=== PATIENT | male | born 1945 | race Caucasian/White ===

== ENCOUNTER 2023-05-04 09:36 | Outpatient (OUT) | payer MEDICARE, OTHER, SELFPAY ==
[2023-05-04 11:31] LABS: Chol HDL Ratio 2.3; Cholesterol 144 mg/dL (<=200); HDL Cholesterol 62 mg/dL (40-60); Triglycerides 104 mg/dL (<=150); VLDL CHOLESTEROL 20.8 mg/dL
== END 2023-05-04 09:37 | disposition home or self-care (01) ==
LOC: LAB 09:42
PROVIDERS: PCP Internal Medicine; Visit Provider Internal Medicine Interventional Cardiology
DX: E78.2 Mixed hyperlipidemia (principal)
CPT/HCPCS: 36415; 80061

== ENCOUNTER 2023-11-07 10:41 | Inpatient (IN) | payer MEDICARE, OTHER, SELFPAY ==
[2023-11-07] VITALS (37 sets, daily range): BP systolic 146–162; BP diastolic 69–81; PULSE 55–83; TEMP 36.4; O2SAT 84–97; BMI 23.5; BMI 23.8
--- NOTE | 2023-11-07 11:08 | XR_ITS ---
The [address] [address] Patient Name: RAGHAVENDRA HEARD MRN: [id number] date: 1945 Sex: M Assigned Patient Location: ER Current Patient Location: ED.MAIN Accession/Order Number: [id number] Exam Date: 11/07/2023 11:22 Report Date: 11/07/2023 11:39 At the request of: OMID VORA Procedure: XR chest 1V EXAM: XR chest 1V HISTORY: sob COMPARISON: 10/06/2022 TECHNIQUE: AP portable erect FINDINGS: LUNGS: Moderate right basilar infiltrate partially obscuring right hemidiaphragm. Mild infiltrate in the left lung. VASCULATURE: No increased pulmonary vasculature. PLEURA: No pneumothorax, effusion, or pleural thickening. CARDIAC: No cardiomegaly or cardiac silhouette abnormality. MEDIASTINUM: No visible mass or adenopathy. Right Port-A-Cath tip projects over the right atrium BONES: No fracture or visible bone lesion. OTHER: Negative. XR/XR chest 1V IMPRESSION: Right basilar and left lung infiltrates, consider multifocal pneumonia versus pulmonary edema Electronically authenticated by: CHANTAL MALONE Date: 11/07/2023 11:39
--- NOTE | 2023-11-07 11:08 | ECG_ITS ---
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
--- NOTE | 2023-11-07 11:12 | ED.SOB1 ---
HPI - SOB/Dyspnea General Chief Complaint: Shortness of Breath/Dyspnea Stated Complaint: sob Time Seen by Provider: 11/07/23 10:53 Source: patient and family Mode of arrival: Wheelchair Limitations: no limitations History of Present Illness HPI Narrative: Patient presents ED complaint of shortness of breath. Patient has a history of lung cancer with resection of the right upper lobe. He states he is worried he has pneumonia. He was hypoxic at home at 88%. Upon arrival here on room air he was 89%. He was placed on 2 L nasal cannula and improved to 94%. He is not chronically on home O2. He has had chemo and radiation and finished last August. He said he has chronic issues with pneumonitis and usually needs some steroids. He is mildly short of breath but no acute distress. Vital signs are stable here. He did have to use his 's oxygen last night and has been worsening since Sunday at [facility]. said she finally got him to come in today. Related Data Allergies Allergy/AdvReac Type Severity Reaction Status Date / Time No Known Drug Allergies Allergy Verified 11/07/23 11:03 Review of Systems ROS Status of ROS 10 or more systems reviewed and unremarkable except as noted in history and below Exam Narrative Exam Narrative: Time Seen: [] Vital Signs: [Per nurse's notes.] General: [Alert] Skin: [Warm, dry, no rash.] Head: [Normocephalic, atraumatic.] Neck: [Supple, trachea midline.] Eye: [Pupils are equal, round and reactive to light, extraocular movements are intact, normal conjunctiva.] Ears, nose, mouth and throat: oral mucosa moist. Cardiovascular: [Regular rate and rhythm, no murmur.] Respiratory: [Inspiratory expiratory wheezingAnd rhonchi bilaterally. Mild respiratory distress, hypoxia, speaking in short sentences. Chest wall: [No tenderness, no deformity.] Gastrointestinal: [Soft, nontender, non distended, normal bowel sounds.] MSK: 5 out of 5 muscle strength x 4 extremities no calf pain or edema Lymphatics: [No lymphadenopathy.] Psychiatric: [Cooperative, appropriate mood & affect.] Neurological: [Alert and oriented to person, place, time, and situation, no focal neurological deficit observed.] Constitutional Vital Signs, click to edit/add: Last Vital Signs Temp 97.6 F 11/07/23 10:52 Pulse 75 11/07/23 10:52 Resp 18 11/07/23 10:52 BP 150/71 H 11/07/23 10:52 Pulse Ox 93 L 11/07/23 11:30 O2 Del Method Nasal Cannula 11/07/23 11:30 O2 Flow Rate 2 11/07/23 11:30 Course Vital Signs Vital signs: Vital Signs Temperature 97.6 F 11/07/23 10:52 Pulse Rate 75 11/07/23 10:52 Respiratory Rate 18 11/07/23 10:52 Blood Pressure 150/71 H 11/07/23 10:52 Pulse Oximetry 89 L 11/07/23 10:52 Oxygen Delivery Method Room Air 11/07/23 10:52 Oxygen Delivery Flow Rate 2 11/07/23 10:52 Temperature 97.6 F 11/07/23 10:52 Pulse Rate 75 11/07/23 10:52 Respiratory Rate 18 11/07/23 10:52 Blood Pressure 150/71 H 11/07/23 10:52 Pulse Oximetry 93 L 11/07/23 11:30 Oxygen Delivery Method Nasal Cannula 11/07/23 11:30 Oxygen Delivery Flow Rate 2 11/07/23 11:30 MDM - SOB/Dyspnea MDM Narrative Medical decision making narrative: Patient's x-ray shows multifocal pneumonia. Patient was started on Vanco and Zosyn here in ED. I called and spoke to Dr. Gonsalez who will admit the patient. He requests [facility] admission to [facility] floor. Patient's labs are nonacute. He is stable on 2 L nasal cannula. Patient is comfortable care plan for admission. Differential Diagnosis Differential diagnosis: Likely acute exacerbation of chronic obstructive airways disease and community acquired pneumonia Medical Records Attestation: I reviewed the patient's medical records. Lab Data Attestation: I reviewed the patient's lab results. Imaging Data Chest x-ray: Radiologist's impression: ITS Impressions Chest X-Ray 11/07/23 11:08 IMPRESSION: Right basilar and left lung infiltrates, consider multifocal pneumonia versus pulmonary edema Electronically authenticated by: CHANTAL MALONE Date: 11/07/2023 11:39 ECG Data Interpretation: EKG INTERPRETATION Time: []1147 Rate: []63 Rhythm: _ [] ST segments: _ [] T waves: _ [] Ectopy: _ [] P wave/IA interval: _ [] QRS interval: _ [] QT interval: _ [] Comparison: _ [] Comparison EKG date: [] Performed by: [self]Normal sinus rhythm no acute ST elevation or depression Discharge Plan Discharge Chief Complaint: Shortness of Breath/Dyspnea Clinical Impression: Community acquired pneumonia Patient Disposition: Admitted as Observation Time of Disposition Decision: 11:57 Condition: Fair Print Language: Khmer Referrals: PRERNA VALENTINO [Primary Care Provider] - 1 week
[2023-11-07 11:55] LABS: Basophils Percent Auto 0.3 % (0.2-2.0); Eosinophils Percent Auto 0.4 % (0.9-7.0); Hematocrit 29.7 % (42.0-54.0); Hemoglobin 9.8 g/dL (14.0-18.0); Immature Granulocytes Abs Auto 0.02 10^3/uL (0.00-0.03); Immature Granulocytes Pct Auto 0.3 % (0.0-0.5); Lymphocytes Absolute Auto 0.8 10^3/uL (1.2-3.8); Lymphocytes Percent Auto 10.1 % (20.5-60.0); Mean Corpuscular Hemoglobin 34.5 pg (25.9-34.0); Mean Corpuscular Volume 104.6 fL (80.0-94.0); Mean Platelet Volume 10.2 fL (9.5-13.5); Monocytes Absolute Auto 0.7 10^3/uL (0.3-0.8); Monocytes Percent Auto 8.2 % (1.7-12.0); Neutrophils Absolute Auto 6.4 10^3/uL (1.4-6.5); Neutrophils Percent Auto 80.7 % (43.0-75.0); Platelet Count 201 10^3/uL (150-450); Red Blood Count 2.84 10^6/uL (4.70-6.10); Red Cell Distribution Width 15.3 % (11.0-15.0); White Blood Count 7.9 10^3/uL (4.0-11.0)
[2023-11-07] MEDS: DEXAMETHASONE SOD PHOS 10 MG/ML VIAL IV (12:02)
[2023-11-07] MEDS: PIPERACILLIN SODIUM/TAZOBACTAM 3.375 GM in 0.9 % SODIUM CHLORIDE 50 ML IV (12:12)
[2023-11-07 12:14] LABS: Alanine Aminotransferase 33 U/L (16-63); Albumin Globulin Ratio 0.6; Albumin Level 2.8 g/dL (3.4-5.0); Alkaline Phosphatase 91 U/L (46-116); Anion Gap 14.5; Aspartate Amino Transferase 34 U/L (15-37); BUN Creatinine Ratio 31.9; Bilirubin Total 0.5 mg/dL (0.2-1.0); Calcium 8.8 mg/dL (8.5-10.1); Carbon Dioxide 25.9 mmol/L (21.0-32.0); Chloride 103 mmol/L (98-107); Estimated GFR (African America >60 (>=60); Estimated GFR (Non-African Ame >60 (>=60); Globulin 4.9 g/dL; Glucose 125 mg/dL (74-106); Potassium 3.4 mmol/L (3.5-5.1); Sodium 140 mmol/L (136-145); Total Protein 7.7 g/dL (6.4-8.2); Troponin I High Sensitivity 12.4 pg/mL (4.0-76.1)
[2023-11-07] MEDS: VANCOMYCIN HCL 1,000 MG in 0.9 % SODIUM CHLORIDE 250 ML 250 MG IV (12:45)
[2023-11-07 13:04] LABS: SARS-CoV-2 Ag NEGATIVE (NEGATIVE)
[2023-11-07 15:16] LABS: Adenovirus NOT DETECTED (NOT DETECTE); Bordetella parapertussis NOT DETECTED (NOT DETECTE); Coronavirus 229E NOT DETECTED (NOT DETECTE); Coronavirus HKU1 NOT DETECTED (NOT DETECTE); Coronavirus NL63 NOT DETECTED (NOT DETECTE); Coronavirus OC43 NOT DETECTED (NOT DETECTE); Human Metapneumovirus NOT DETECTED (NOT DETECTE); Human Rhinovirus/Enterovirus NOT DETECTED (NOT DETECTE); Influenza A NOT DETECTED (NOT DETECTE); Influenza B NOT DETECTED (NOT DETECTE); Mycoplasma pneumoniae NOT DETECTED (NOT DETECTE); Parainfluenza Virus 1 NOT DETECTED (NOT DETECTE); Parainfluenza Virus 2 NOT DETECTED (NOT DETECTE); Parainfluenza Virus 3 NOT DETECTED (NOT DETECTE); Parainfluenza Virus 4 NOT DETECTED (NOT DETECTE); Respiratory Syncytial Virus NOT DETECTED (NOT DETECTE); SARS-CoV-2 NOT DETECTED (NOT DETECTE)
--- NOTE | 2023-11-07 16:08 | CM.NOTE ---
Important Message From Medicare discussed with pt, pt verbalizes understanding and signs paper. Original given to pt and copy placed in pt's chart.
--- NOTE | 2023-11-07 16:11 | P.HP_ITS ---
<Statement entered by Shaikh Ana Maria MD - 11/08/23 11:43> This documentation has been reviewed and approved. Patient's medical chart reviewed, case discussed with Emergency Room provider and Kayla. Continue treatment plan/clinical documentation. Patient presents with progressive shortness of breath and was admitted for twenty focal pneumonia and acute respiratory failure with hypoxia. He was started on antibiotics for curreently acquired pneumonia. He also receiving IV systemic steroids, inhaled bronchodilators or associated chronic obstructive pulmonary disease exacerbation. Patient is at high risk of resistant organisms due to recent antibiotic use, recent chemotherapy for lung cancer. He is also at high risk for poor prognosis and outcome because of his history and require a minimum of to midnight of inpatient treatment for his pneumonia/respiratory failure with hypoxia due to his risk factors and current illness HPI H&P: HPI History of Present Illness Chief complaint: sob Multifocal pnuemonia Hypoxia Narrative: 11/07/23 2799 This is a 78-year-old male patient with a past medical history as outlined below including history of lung CA s/p resection and chemotherapy, hypertension, hyperlipidemia, depression with anxiety, BPH, and COPD; who presented to the ED complaining of shortness of breath x 3 days. 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 He attempted to take prednisone at home but had no relief of his symptoms and reported to the ED for further evaluation. O2 sat on arrival to the ED was 88% on room air. Workup also revealed anemia (9.8), and hyperglycemia (125). Chest x-ray revealed multifocal pneumonia versus pulmonary edema the patient is being admitted to the hospitalist service as an inpatient for COPD exacerbation and multifocal pneumonia. At the time of my exam the patient is sitting on the side of the bed having just arrived to the medical floor. He is obviously short of breath and able to complete 3-4 word sentences only. He reports recently following up with his oncologist and had a clear CT of the chest about 1 week ago. Opioid HPI Opioid Management Most Recent Opioid Data: Last Pain Scale 5 11/08/23 10:00 Last Pain Assessment 11/08/23 10:00 Last MAR Pain Assessment 11/08/23 09:06 Review of Systems ROS Status of ROS 10 or more systems reviewed and unremark able except as noted in history and below [facility] Medical History (Updated 11/08/23 @ 10:24 by Kayla Austin NP) CAD (coronary artery disease) ?I25.10 - Atherosclerotic heart disease of [place] coronary artery without angina pectoris (ICD-10) Depression with anxiety ?F41.8 - Other specified anxiety disorders (ICD-10) BPH (benign prostatic hyperplasia) ?N40.0 - Benign prostatic hyperplasia without lower urinary tract symptoms (ICD-10) Past heart attack ?I25.2 - Old myocardial infarction (ICD-10) Hypertension ?I10 - Essential (primary) hypertension (ICD-10) Lung cancer ?C34.90 - Malignant neoplasm of unspecified part of unspecified bronchus or lung (ICD-10) Surgical History (Updated 11/07/23 @ 16:06 by Kristan Florez RN) History of appendectomy ?Z90.49 - Acquired absence of other specified parts of digestive tract (ICD- 10) H/O pneumonectomy ?Z98.890 - Other specified postprocedural states (ICD-10) ?Z90.2 - Acquired absence of lung [part of] (ICD-10) Family History (Updated 11/07/23 @ 15:13 by Kristan Florez RN) Father Family history of hypertension Social History (Updated 11/07/23 @ 15:14 by Kristan Florez RN) Within the past year, how often did you have a drink containing alcohol: never Score interpretation: A score less than 4 is consistent with normal alcohol consumption. Smoking status: Former smoker Non-prescribed substance use: denies use Highest level of school completed/degree received: high school graduate Meds Home Medications and Allergies Home Medications ?Medication ?Instructions ?Recorded ?Confirmed ?Type albuterol sulfate 2.5 mg/3 mL 2.5 mg inhalation Q6H PRN 11/07/23 11/07/23 History (0.083 %) solution for nebulization shortness of breath or wheezing albuterol sulfate 90 mcg/actuation 1 puff inhalation Q4H PRN 11/07/23 11/07/23 History aerosol inhaler shortness of breath or wheezing amlodipine 2.5 mg tablet 2.5 mg PO QDAY 11/07/23 11/07/23 History aspirin 81 mg tablet,delayed 81 mg PO DAILY 11/07/23 11/07/23 History release (Adult Aspirin Regimen) atorvastatin 40 mg tablet 40 mg PO QDAY 11/07/23 11/07/23 History cholecalciferol (vitamin D3) 50 50 mcg PO DAILY 11/07/23 11/07/23 History mcg (2,000 unit) tablet (D3 DOTS) clonazepam 1 mg tablet 1 mg PO TID PRN anxiety 11/07/23 11/07/23 History docusate sodium 100 mg capsule 200 mg PO BID 11/07/23 11/07/23 History (Stool Softener) duloxetine 60 mg capsule,delayed 60 mg PO BID 11/07/23 11/07/23 History release finasteride 5 mg tablet 5 mg PO QDAY 11/07/23 11/07/23 History fluticasone fur. 100 mcg-umeclid 1 inh inhalation DAILY 11/07/23 11/07/23 History 62.5 mcg-vilant 25 mcg inhalat.powder (Trelegy Ellipta) gabapentin 300 mg capsule 600 mg PO Q8H 11/07/23 11/07/23 History hydrocodone 5 mg-acetaminophen 325 2 tab PO Q6H PRN pain 11/07/23 11/07/23 History mg tablet meloxicam 15 mg tablet 15 mg PO QDAY 11/07/23 11/07/23 History metoprolol succinate 25 mg 25 mg PO QAM 11/07/23 11/07/23 History tablet,extended release 24 hr nitroglycerin 0.4 mg sublingual 0.4 mg sublingual Q5M PRN chest 11/07/23 11/07/23 History tablet pain sennosides 8.6 mg tablet (Senna 17.2 mg PO BID 11/07/23 11/07/23 History Laxative) tamsulosin 0.4 mg capsule 0.8 mg PO .QHS 11/07/23 11/07/23 History triamterene 37.5 1 tab PO QAM 11/07/23 11/07/23 History mg-hydrochlorothiazide 25 mg tablet Allergies Allergy/AdvReac Type Severity Reaction Status Date / Time No Known Drug Allergies Allergy Verified 11/07/23 11:03 Exam Constitutional Vital Signs, click to edit/add: Last Vital Signs Temp 97.5 F L 11/07/23 15:44 Pulse 63 11/07/23 16:07 Resp 20 11/07/23 15:44 BP 162/71 H 11/07/23 15:44 Pulse Ox 95 11/07/23 16:02 O2 Del Method Nasal Cannula 11/07/23 16:02 O2 Flow Rate 2 11/07/23 16:02 Common normals: no apparent distress, oriented x3, alert and well nourished General appearance: cooperative Orientation/consciousness: Yes awake HENWV Common normals: normocephalic, head/scalp atraumatic, hearing grossly normal bilaterally, external nose normal and moist oral mucous membranes Eye Common normals: PERRL, EOMs intact bilaterally, conjunctivae normal and no scleral icterus Alignment: alignment normal Eyelid: eyelids normal Neck & C-Spine Common normals: full ROM, supple and no JVD Chest Common normals: inspection of chest normal Chest: symmetrical chest wall rise Respiratory Common normals: normal respiratory effort and no retractions Effort & inspection: tachypneic, uses accessory muscles (mild) and prolonged expiratory phase; not able to speak in complete sentences (3-4 word sentences) Auscultation: rhonchi (scattered throughout), wheezes (EE throughout) and diminished lung sounds (RLL very diminished) Cardio Common normals: no JVD, regular rate, regular rhythm, S1 normal heart sound, no gallops, no clicks, no rub and peripheral pulses 2+ throughout Heart sounds: murmur (HSM 3/6); S2 abnormal (split) GI Common normals: Normal to inspection, nondistended, normoactive bowel sounds present, soft to palpation, non-tender, no hepatosplenomegaly, no masses and no bruits Bladder/kidney exam: bladder normal to palpation Back & Pelvis Common normals: thoracic and lumbar spine normal to inspection Extremity Common normals: normal capillary refill General: normal exam except as noted and edema (Tr- 1+ bilat insteps/ankles); no clubbing and no cyanosis Neuro [place] Coma Scale: GCS not evaluated Common normals: CN's II-XII intact bilaterally, moves all extremities, no focal motor deficits and no sensory deficits noted Speech: speech normal Motor exam: strength 5/5 throughout Psych Common normals: mental status grossly normal, thought process normal, affect normal and activity/motor behavior normal Results Labs Labs: Short CBC 11/07/23 Range/Units 11:30 WBC 7.9 (4.0-11.0) 10^3/uL Hgb 9.8 L (14.0-18.0) g/dL Hct 29.7 L (42.0-54.0) % Plt Count 201 (150-450) 10^3/uL BMP 11/07/23 11:30 Sodium 140 Potassium 3.4 L Chloride 103 Carbon Dioxide 25.9 BUN 23.0 H Creatinine 0.72 Glucose 125 H Calcium 8.8 Liver Function 11/07/23 Range/Units 11:30 Total Bilirubin 0.5 (0.2-1.0) mg/dL AST 34 (15-37) U/L ALT 33 (16-63) U/L Alkaline Phosphatase 91 (46-116) U/L Albumin 2.8 L (3.4-5.0) g/dL Pulse Oximetry Attestation: I have reviewed the pertinent pulse oximetry results. Imaging Chest x-ray: Attestation: I have reviewed the pertinent imaging results. Radiologist's impression: IMPRESSION: Right basilar and left lung infiltrates, consider multifocal pneumonia versus pulmonary edema Assessment and Plan Assessment and Plan (1) Community acquired pneumonia: Assessment and Plan: Acute * Adm inpatient * We expect greater than a 2 midnight stay for medically necessary hospital care for multifocal pneumonia including IV antibiotics, high dose IV steroids, frequent breathing treatments and O2 titration * IVPB Rocephin and PO Azithromycin for CAP coverage * Low threshold to broaden coverage in setting of chronic lung compromise (COPD, Lung CA) pending clinical course * Pt remains afebrile and no clinical concern for sepsis at this time * Guaifenesin BID, Opep for sputum mobilization * BC x 2 obtained in the ED - pending * See Resp failure and COPD exac * CBC, CMP daily (2) COPD exacerbation: Assessment and Plan: Acute * Dexamethasone given in the ED, but pt continues to have significant wheezing and dyspnea/increased WOB * Solu-medrol 125 x 1, the 40 mg q8h * Duonebs q6h scheduled, plus PRN albuterol nebs * See pneumonia and ac resp failure (3) Acute respiratory failure with hypoxia: Assessment and Plan: Acute * 2/2 acute multifocal pneumonia, COPD exacerbation in setting of baseline lung compromise d/t hx of lung CA s/p wedge resection - not on home O2 at baseline * O2 as needed to keep sats above 90%, currently 93% on 2L * Significant dyspnea w/ 3-4 word sentences * See above * May require home O2 at discharge pending clinical course (4) Hypertension: Assessment and Plan: Chronic * Continue home amlodipine, triamterene-HCTZ, and metoprolol succ (5) BPH (benign prostatic hyperplasia): Assessment and Plan: Chronic * Continue home tamsulosin (6) Depression with anxiety: Assessment and Plan: Chronic * Continue home duloxetine and clonazepam (7) CAD (coronary artery disease): Assessment and Plan: Chronic * Continue home daily ASA, BB, statin
[2023-11-07] MEDS: IPRATROPIUM/ALBUTEROL SULFATE 3 ML AMPUL.NEB IH ×2 (16:19→21:48)
[2023-11-07] MEDS: POTASSIUM CHLORIDE 10 MEQ ER TABLET 40 MEQ PO (16:58)
[2023-11-07] MEDS: AZITHROMYCIN 250 MG TABLET 500 MG PO (16:58)
[2023-11-07] MEDS: METHYLPREDNISOLONE SOD SUCC PF 125 MG/2 ML VIAL IVP (16:59)
[2023-11-07] MEDS: ENOXAPARIN SODIUM 40 MG/0.4 ML SYRINGE SUBQ (16:59)
[2023-11-07] MEDS: LACTATED RINGER'S SOLUTION 1,000 ML 125 ML IV (17:00)
[2023-11-07] MEDS: BENZONATATE 100 MG CAPSULE PO (21:42)
[2023-11-07] MEDS: CLONAZEPAM 0.5 MG TABLET 1 MG PO (21:42)
[2023-11-07] MEDS: DULOXETINE HCL 60 MG CAPSULE.DR PO (21:42)
[2023-11-07] MEDS: CEFTRIAXONE 1,000 MG in 0.9 % SODIUM CHLORIDE 50 ML 100 MG IV (21:43)
[2023-11-07] MEDS: ACETAMINOPHEN 325 MG TABLET 650 MG PO (21:55)
[2023-11-07] MEDS: DOCUSATE SODIUM 100 MG CAPSULE PO (21:55)
[2023-11-07] MEDS: OXYCODONE HCL 5 MG TABLET PO (21:55)
[2023-11-08] VITALS (23 sets, daily range): BP systolic 136–165; BP diastolic 63–74; PULSE 45–95; TEMP 36.3–36.7; O2SAT 66–96
[2023-11-08] MEDS: LACTATED RINGER'S SOLUTION 1,000 ML 125 ML IV ×3 (00:20→17:15)
[2023-11-08] MEDS: METHYLPREDNISOLONE SOD SUCC PF 40 MG/ML VIAL IVP ×4 (00:20→17:15)
[2023-11-08] MEDS: IPRATROPIUM/ALBUTEROL SULFATE 3 ML AMPUL.NEB IH ×5 (04:04→23:30)
[2023-11-08 05:42] LABS: Basophils Percent Auto 0.1 % (0.2-2.0); Hematocrit 28.3 % (42.0-54.0); Hemoglobin 9.3 g/dL (14.0-18.0); Immature Granulocytes Abs Auto 0.04 10^3/uL (0.00-0.03); Immature Granulocytes Pct Auto 0.5 % (0.0-0.5); Lymphocytes Absolute Auto 0.7 10^3/uL (1.2-3.8); Lymphocytes Percent Auto 7.8 % (20.5-60.0); Mean Corpuscular HGB Conc 32.9 g/dL (29.9-35.2); Mean Corpuscular Hemoglobin 34.1 pg (25.9-34.0); Mean Corpuscular Volume 103.7 fL (80.0-94.0); Mean Platelet Volume 10.6 fL (9.5-13.5); Monocytes Absolute Auto 0.2 10^3/uL (0.3-0.8); Monocytes Percent Auto 2.5 % (1.7-12.0); Neutrophils Absolute Auto 7.8 10^3/uL (1.4-6.5); Neutrophils Percent Auto 89.1 % (43.0-75.0); Platelet Count 187 10^3/uL (150-450); Red Blood Count 2.73 10^6/uL (4.70-6.10); Red Cell Distribution Width 15.1 % (11.0-15.0); White Blood Count 8.7 10^3/uL (4.0-11.0)
[2023-11-08 06:13] LABS: Alanine Aminotransferase 41 U/L (16-63); Albumin Globulin Ratio 0.5; Albumin Level 2.5 g/dL (3.4-5.0); Alkaline Phosphatase 88 U/L (46-116); Anion Gap 12.2; Aspartate Amino Transferase 32 U/L (15-37); Bilirubin Total 0.3 mg/dL (0.2-1.0); Calcium 8.6 mg/dL (8.5-10.1); Carbon Dioxide 26.2 mmol/L (21.0-32.0); Chloride 103 mmol/L (98-107); Estimated GFR (African America >60 (>=60); Estimated GFR (Non-African Ame >60 (>=60); Globulin 4.8 g/dL; Glucose 141 mg/dL (74-106); Potassium 4.4 mmol/L (3.5-5.1); Sodium 137 mmol/L (136-145); Total Protein 7.3 g/dL (6.4-8.2)
[2023-11-08] MEDS: ALBUTEROL SULFATE 2.5 MG/3 ML VIAL NEB IH ×2 (07:38→07:39)
[2023-11-08] MEDS: DOCUSATE SODIUM 100 MG CAPSULE 200 MG PO ×2 (08:47→21:41)
[2023-11-08] MEDS: GABAPENTIN 300 MG CAPSULE 600 MG PO ×2 (08:49→17:15)
[2023-11-08] MEDS: AMLODIPINE BESYLATE 5 MG TABLET 2.5 MG PO (08:49)
[2023-11-08] MEDS: FINASTERIDE 5 MG TABLET PO (08:49)
[2023-11-08] MEDS: METOPROLOL SUCCINATE 25 MG TAB.ER.24H PO (08:51)
[2023-11-08] MEDS: ASPIRIN 81 MG TABLET.DR PO (08:51)
[2023-11-08] MEDS: BENZONATATE 100 MG CAPSULE PO (08:51)
[2023-11-08] MEDS: DULOXETINE HCL 60 MG CAPSULE.DR PO ×2 (08:52→21:40)
[2023-11-08] MEDS: AZITHROMYCIN 250 MG TABLET 500 MG PO (08:52)
[2023-11-08] MEDS: SENNOSIDES 8.6 MG TABLET 17.1999999999999993 MG PO ×2 (09:00→21:41)
[2023-11-08] MEDS: ACETAMINOPHEN 325 MG TABLET 650 MG PO ×2 (09:02→21:42)
[2023-11-08] MEDS: MELOXICAM 7.5 MG TABLET 15 MG PO (09:03)
[2023-11-08] MEDS: HCTZ PO (09:04)
[2023-11-08] MEDS: TRIAMTERENE PO (09:04)
[2023-11-08] MEDS: CLONAZEPAM 0.5 MG TABLET 1 MG PO (09:04)
[2023-11-08] MEDS: OXYCODONE HCL 5 MG TABLET PO ×2 (09:06→21:42)
[2023-11-08] MEDS: ATORVASTATIN CALCIUM 40 MG TABLET PO (09:09)
[2023-11-08] MEDS: BUDESONIDE 0.5 MG/2 ML AMPULE NEB IH ×2 (10:17→23:30)
--- NOTE | 2023-11-08 12:02 | CM.NOTE ---
Rounds made with Dr. Rodgers. Dr. Rodgers reviews plan of care. Mr. Low in agreement.
--- NOTE | 2023-11-08 13:11 | P.PN_ITS ---
<Statement entered by Shaikh Ana Maria MD - 11/08/23 14:51> This documentation has been reviewed and approved.Seen and examined. Case discussed with Kayla. Patient feels better but still quite dyspneic and gets out of breath during conversation. He is on 2 L O2 via NC. C/w systemic steroids, IV abx and duonebs. Wean off O2 as tolerated. Progress Note: Subjective Subjective Interval history: 11/08/23 0930 The patient is resting in bed having just finished his breakfast. He continues to be mildly short of breath with prolonged conversation, but is improved since admission yesterday afternoon. He continues to require O2 supplementation with 2 L and is maintaining sats between 91 and 94%. On exam, wheezing is currently resolved and he is just diminished in the bases. No rhonchi noted on exam as well. Remains afebrile and his vital signs are stable, although mildly tachypn eic. Exam Constitutional Vital Signs, click to edit/add: Last Vital Signs Temp 97.8 F 11/08/23 07:26 Pulse 59 L 11/08/23 11:44 Resp 24 H 11/08/23 08:00 BP 164/74 H 11/08/23 08:49 Pulse Ox 92 L 11/08/23 10:24 O2 Del Method Nasal Cannula 11/08/23 10:24 O2 Flow Rate 2 11/08/23 10:24 Common normals: no apparent distress, oriented x3 and alert General appearance: cooperative Orientation/consciousness: Yes awake HENMD Common normals: normocephalic, head/scalp atraumatic and hearing grossly normal bilaterally Eye Common normals: PERRL, EOMs intact bilaterally, conjunctivae normal and no scleral icterus General eye: normal appearance of both eyes Conjunctiva: conjunctiva(e) normal Pupil: PERRL Chest Common normals: inspection of chest normal Chest: symmetrical chest wall rise Respiratory Common normals: no use of accessory muscles and clear to auscultation bilaterally Effort & inspection: not able to speak in complete sentences (Improving. 5-7 word sentences ) Auscultation: diminished lung sounds (Throughout, greatest at BLL); no rhonchi and no wheezes Cardio Common normals: regular rate, regular rhythm, S1 normal heart sound, S2 normal heart sound and peripheral pulses 2+ throughout GI Common normals: Normal to inspection, nondistended, normoactive bowel sounds present, soft to palpation, non-tender and no hepatosplenomegaly Bladder/kidney exam: bladder normal to palpation Extremity Common normals: normal to inspection and no calf tenderness General: edema (Trace-1+ Bilat insteps); no clubbing and no cyanosis Neuro Common normals: CN's II-XII intact bilaterally, moves all extremities, no focal motor deficits and no sensory deficits noted Psych Common normals: mental status grossly normal Progress Note: Objective Labs Labs: Short CBC 11/08/23 Range/Units 04:45 WBC 8.7 (4.0-11.0) 10^3/uL Hgb 9.3 L (14.0-18.0) g/dL Hct 28.3 L (42.0-54.0) % Plt Count 187 (150-450) 10^3/uL BMP 11/08/23 04:45 Sodium 137 Potassium 4.4 Chloride 103 Carbon Dioxide 26.2 BUN 23.0 H Creatinine 0.82 Glucose 141 H Calcium 8.6 Liver Function 11/08/23 Range/Units 04:45 Total Bilirubin 0.3 (0.2-1.0) mg/dL AST 32 (15-37) U/L ALT 41 (16-63) U/L Alkaline Phosphatase 88 (46-116) U/L Albumin 2.5 L (3.4-5.0) g/dL Progress Note: A&P Assessment and Plan (1) Community acquired pneumonia: Assessment and Plan: Acute * Improving * No ronchi on exam today. Loose cough improved. * Continue IVPB Rocephin and PO Azithromycin for CAP coverage * Low threshold to broaden coverage in setting of chronic lung compromise (COPD, Lung CA) pending clinical course * Pt remains afebrile and no clinical concern for sepsis at this time * Guaifenesin BID, OPEP for sputum mobilization * BC x 2 obtained in the ED - pending * See Resp failure and COPD exac * CBC, CMP daily (2) COPD exacerbation: Assessment and Plan: Acute * Improving * LS still diminished/tight, but no wheezing on exam * Can complete 5-7 word sentences today * Continue Solu-medrol 40 mg q8h * Continue Duonebs, increased to q4h scheduled per RT request, plus PRN albuterol nebs * See pneumonia and ac resp failure (3) Acute respiratory failure with hypoxia: Assessment and Plan: Acute * 2/2 acute multifocal pneumonia, COPD exacerbation in setting of baseline lung compromise d/t hx of lung CA s/p wedge resection - not on home O2 at baseline * O2 as needed to keep sats above 90%, currently 93% on 2L * Improved dyspnea - 5-7 word sentences * See above * May require home O2 at discharge pending clinical course (4) Hypertension: Assessment and Plan: Chronic * Continue home amlodipine, triamterene-HCTZ, and metoprolol succ (5) BPH (benign prostatic hyperplasia): Assessment and Plan: Chronic * Continue home tamsulosin (6) Depression with anxiety: Assessment and Plan: Chronic * Continue home duloxetine and clonazepam (7) CAD (coronary artery disease): Assessment and Plan: Chronic * Continue home daily ASA, BB, statin
--- NOTE | 2023-11-08 15:27 | SWNOTE1 ---
SW was consulted in regards to advanced directives. SW took a booklet to pt and reviewed booklet. He is going to look over and review with his at home. He stated his would like to do one as well. JR gave pt JR's card and let him know to call SW and schedule a time to complete HCPOA, he voiced understanding.
[2023-11-08] MEDS: ENOXAPARIN SODIUM 40 MG/0.4 ML SYRINGE SUBQ (17:15)
[2023-11-08] MEDS: CEFTRIAXONE 1,000 MG in 0.9 % SODIUM CHLORIDE 50 ML 100 MG IV (21:40)
[2023-11-08] MEDS: TAMSULOSIN HCL 0.4 MG CAPSULE 0.800000000000000044 MG PO (21:41)
[2023-11-08] MEDS: BENZONATATE 100 MG CAPSULE 200 MG PO (21:46)
[2023-11-09] VITALS (34 sets, daily range): BP systolic 144–185; BP diastolic 65–85; PULSE 56–109; TEMP 36.3–36.7; O2SAT 72–100
[2023-11-09] MEDS: GABAPENTIN 300 MG CAPSULE 600 MG PO ×4 (00:04→23:55)
[2023-11-09] MEDS: METHYLPREDNISOLONE SOD SUCC PF 40 MG/ML VIAL IVP ×5 (00:04→23:55)
[2023-11-09] MEDS: LACTATED RINGER'S SOLUTION 1,000 ML 125 ML IV (00:06)
[2023-11-09] MEDS: IPRATROPIUM/ALBUTEROL SULFATE 3 ML AMPUL.NEB IH ×6 (03:49→23:11)
[2023-11-09] MEDS: HYDRALAZINE HCL 20 MG/ML VIAL 10 MG IVP (04:29)
[2023-11-09 05:40] LABS: Basophils Percent Auto 0.2 % (0.2-2.0); Hematocrit 28.5 % (42.0-54.0); Hemoglobin 9.4 g/dL (14.0-18.0); Immature Granulocytes Abs Auto 0.14 10^3/uL (0.00-0.03); Immature Granulocytes Pct Auto 1.1 % (0.0-0.5); Lymphocytes Absolute Auto 0.5 10^3/uL (1.2-3.8); Lymphocytes Percent Auto 3.5 % (20.5-60.0); Mean Corpuscular Hemoglobin 33.8 pg (25.9-34.0); Mean Corpuscular Volume 102.5 fL (80.0-94.0); Mean Platelet Volume 10.3 fL (9.5-13.5); Monocytes Absolute Auto 0.6 10^3/uL (0.3-0.8); Monocytes Percent Auto 4.5 % (1.7-12.0); Neutrophils Absolute Auto 11.8 10^3/uL (1.4-6.5); Neutrophils Percent Auto 90.7 % (43.0-75.0); Platelet Count 228 10^3/uL (150-450); Red Blood Count 2.78 10^6/uL (4.70-6.10); Red Cell Distribution Width 15.2 % (11.0-15.0)
[2023-11-09 06:01] LABS: Alanine Aminotransferase 84 U/L (16-63); Albumin Globulin Ratio 0.6; Albumin Level 2.7 g/dL (3.4-5.0); Alkaline Phosphatase 107 U/L (46-116); Anion Gap 15.2; Aspartate Amino Transferase 64 U/L (15-37); BUN Creatinine Ratio 21.6; Bilirubin Total 0.3 mg/dL (0.2-1.0); Calcium 9.2 mg/dL (8.5-10.1); Carbon Dioxide 25.6 mmol/L (21.0-32.0); Chloride 103 mmol/L (98-107); Estimated GFR (African America >60 (>=60); Estimated GFR (Non-African Ame >60 (>=60); Globulin 4.9 g/dL; Glucose 157 mg/dL (74-106); Potassium 3.8 mmol/L (3.5-5.1); Sodium 140 mmol/L (136-145); Total Protein 7.6 g/dL (6.4-8.2)
--- NOTE | 2023-11-09 07:38 | XR_ITS ---
The [address] [address] Patient Name: RAGHAVENDRA HEARD MRN: [id number] date: 1945 Sex: M Assigned Patient Location: MS Current Patient Location: [place] Accession/Order Number: [id number] Exam Date: 11/09/2023 07:55 Report Date: 11/09/2023 08:21 At the request of: SHAIKH LYNN Procedure: XR chest 1V EXAMINATION: XR chest 1V HISTORY: desaturation and shortness of breath COMPARISON: XR chest 11/07/2023 FINDINGS: LUNGS: Moderately dense confluent opacities within lower half of right lung and scattered throughout left lung. VASCULATURE: No increased pulmonary vasculature. PLEURA: Blunting of right lateral costophrenic angle. CARDIAC: No cardiomegaly or cardiac silhouette abnormality. MEDIASTINUM: No visible mass or adenopathy. BONES: No fracture or visible bone lesion. OTHER: Stable Port-A-Cath. XR/XR chest 1V IMPRESSION: 1. Marked bilateral pulmonary infiltrates; infectious etiology versus pulmonary edema. Increased compared to prior study. 2. Suspect small to moderate right pleural effusion; new versus increased compared to prior study. Electronically authenticated by: ARPIT DIEZ Date: 11/09/2023 08:21
[2023-11-09] MEDS: METOPROLOL SUCCINATE 25 MG TAB.ER.24H PO (07:58)
[2023-11-09] MEDS: AMLODIPINE BESYLATE 5 MG TABLET 2.5 MG PO (07:58)
[2023-11-09] MEDS: CLONAZEPAM 0.5 MG TABLET 1 MG PO ×2 (07:58→17:27)
[2023-11-09] MEDS: HYDROCODONE/ACET 5-325 MG TABLET 2 TAB PO ×2 (07:59→17:27)
--- NOTE | 2023-11-09 10:04 | PC.NURSE ---
During report patient's SpO2 desated to 82%, writing RN and night shift manager RN went in to access patient. Patient was on the side of the bed using urinal, short of breath and labored breathing. Writing RN worked with patient to slow breathing down. Once patient's breathing was slower and more regular, patient SpO2 came up with 90% briefly. Then patient desated again to 72%. RN went back into room and had patient lay back in the bed with head of bed elevated and practice breathing exercises again. Patient's SpO2 was not recovering to normal limits. RT was on the floor, RN asked for them to come into room. Patient was listened to by both RN an RT, both heard wheezing throughout the lungs bilaterally. RT started patient's breathing treatment while RN put a page out to Dr. Rodgers. Patient continued to remain in the low 80s. Rt went and retrieved vapotherm to place the patient on. Once patient was on vapotherm, patient's Sp02 came up to 93%. Patient remained above 90% on vapotherm and stated he felt better and could breath beter with less shortness of breath.
[2023-11-09] MEDS: FUROSEMIDE 40 MG/4 ML VIAL IVP ×2 (10:31→19:50)
[2023-11-09] MEDS: DULOXETINE HCL 60 MG CAPSULE.DR PO ×2 (10:32→20:43)
[2023-11-09] MEDS: FINASTERIDE 5 MG TABLET PO (10:32)
[2023-11-09] MEDS: DOCUSATE SODIUM 100 MG CAPSULE 200 MG PO ×2 (10:32→20:42)
[2023-11-09] MEDS: SENNOSIDES 8.6 MG TABLET 17.1999999999999993 MG PO ×2 (10:32→20:42)
[2023-11-09] MEDS: ASPIRIN 81 MG TABLET.DR PO (10:33)
[2023-11-09] MEDS: TRIAMTERENE PO (10:33)
[2023-11-09] MEDS: MELOXICAM 7.5 MG TABLET 15 MG PO (10:33)
[2023-11-09] MEDS: ATORVASTATIN CALCIUM 40 MG TABLET PO (10:33)
[2023-11-09] MEDS: HCTZ PO (10:33)
[2023-11-09] MEDS: PIPERACILLIN SODIUM/TAZOBACTAM 3.375 GM in 0.9 % SODIUM CHLORIDE 50 ML IV ×2 (10:34→19:50)
[2023-11-09] MEDS: VANCOMYCIN HCL 1,000 MG in 0.9 % SODIUM CHLORIDE 250 ML 250 MG IV ×2 (10:34→20:42)
--- NOTE | 2023-11-09 10:40 | OT.DAILY ---
Occupational Therapy Daily Note OT Inpatient Daily Visit Note Start: 11/08/23 14:32 Freq: Status: Active Protocol: Document 11/09/23 10:31 ANABELL (Rec: 11/09/23 10:39 ANABELL [id number]) OT Visit Details Time In/Time Out Time In 09:00 Time Out 09:20 OT Treatment Plan Subjective Subjective I am feeling pretty good today . I was able to get rest last night. Objective Objective Ed on breathing tech when attempting to complete ROM stretches and functional reaching. Able to maintain O2 level between 95%-99% while completing stretches. UE ROM Stretches completed in bed with head elevated. able to complete stretches to all planes with no pain or irritation. Ed on PLB tech to A with mantling an appropriate O2 level. Bed positioning and mobility with SBA. Assessment Assessment pascual tx F on this date. 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
[2023-11-09] MEDS: 0.9 % SODIUM CHLORIDE 250 ML 10 ML IV (10:45)
[2023-11-09] MEDS: BUDESONIDE 0.5 MG/2 ML AMPULE NEB IH ×2 (11:23→23:11)
--- NOTE | 2023-11-09 11:27 | RESP.RT ---
decreased from 60% 40 LPM to 50% 40LPM
--- NOTE | 2023-11-09 12:17 | CM.NOTE ---
Rounds made with Dr. Rodgers, pt back on vapotherm. No discharge today.
--- NOTE | 2023-11-09 12:51 | CA_ITS ---
Patient Name: RAGHAVENDRA HEARD MR#: [id number] : 1945 Exam Date: 11/09/2023 Ordering Doctor: SHAIKH Isacc BAILEY . ECHOCARDIOGRAM REPORT PROCEDURE: CA ECHO DOPPLER COMPLETE INDICATIONS: CHF, elevated BNP, h/o [place], lung cancer, COPD, hypertension COMPARISON: None. DESCRIPTION: COMPLETE ECHOCARDIOGRAM Real-time transthoracic echocardiography with 2D, M-mode, spectral and color flow Doppler performed. QUALITY: Technical quality was good. 67 , 152#, BSA 1.80 m2, BP 144/65 LEFT VENTRICLE: Normal chamber size. Normal left ventricular wall thickness. Normal systolic function. LV EF: Normal left ventricular ejection fraction, (60%). DIASTOLIC: Diastolic function is indeterminate. ATRIAL SEPTUM: LEFT ATRIUM: Normal chamber size. RIGHT ATRIUM: Mild dilatation. RIGHT VENTRICLE: Moderate dilatation. Mildly reduced right ventricular systolic function. TRICUSPID VALVE: Normal mobility and thickness. No stenosis with mild regurgitation. Doppler studies reveal severely (>60) elevated right sided pressures. RVSP 60 mmHg MITRAL VALVE: Normal mobility and thickness. No evidence of mitral valve stenosis. Mild mitral annular calcification. Trivial mitral regurgitation. AORTIC VALVE: Normal trileaflet appearance. Mildly calcified aortic valve. Normal leaflet mobility. No evidence of aortic valve stenosis. No aortic regurgitation. AORTIC ROOT: Normal diameter and appearance. PULMONIC VALVE: Normal thickness and mobility. No stenosis. Trivial regurgitation. PERICARDIUM: No evidence of pericardial effusion. IVC: IVC is dilated (2.6 cm) with no collapse. PLEURA: CONCLUSION: 1. Left ventricle is normal in size and exhibits normal systolic function. LVEF is 60%. 2. Right ventricle is moderately dilated with mildly reduced systolic function. 3. No significant valvular dysfunction. 4. Severely elevated right-sided pressures. RVSP is 60 mmHg. 5. No pericardial effusion. Adult Echocardiography Procedure Report Left Ventricle LVEDD (3.7 - 5.6 cm): 4.23 cm LVESD (2.2 - 4.0 cm): 2.50 cm LVIVS thickness (0.6 - 1.2 cm): 1.04 cm LVPW thickness (0.5 - 1.0 cm): 0.80 cm E - e': 6.38 LVOT Max Gradient: 4.16 mm[Hg] LVOT Area (cm2): 1.02 m/s Peak Velocity (LVOT): 1.02 m/s Mean Velocity (LVOT): 0.63 m/s LVOT Diameter 2.21 cm Left Atrium LA Volume Index (2D A2C): 29.86 ml/m2 Left Atrium Systolic Dimension: 2.87 cm Mitral Valve MV E to A Ratio: 0.95 Mitral Valve A-Wave Peak Velocity: 0.73 m/s Mitral Valve E-Wave Peak Velocity: 0.69 m/s Right Ventricle Aorta AO Root Diam: 3.51 cm Ascending Ao Diam: 3.45 cm Aortic Valve AoV Area (Peak Aiden): 2.55 cm2, 2.55 cm2 AoV Area (VTI): 2.32 cm2, 2.32 cm2 Peak Velocity(Antegrade Flow): 1.53 m/s Peak Gradient(Antegrade Flow): 9.36 mm[Hg] Mean Velocity(Antegrade Flow): 1.06 m/s Mean Gradient(Antegrade Flow): 5.11 mm[Hg] Velocity Time Integral: 36.50 cm Tricuspid Valve Peak Velocity (Regurgitant Flow): 3.35 m/s Pulmonic Valve Peak Gradient: 2.66 mm[Hg], 2.23 mm[Hg] Right Atrium Right Atrium Systolic Pressure: 55.56 ml, 55.56 ml Dictated by: Leo Toledo M.D. on 11/09/2023 at 18:13 Approved by: Leo Toledo M.D. on 11/09/2023 at 18:19
--- NOTE | 2023-11-09 12:52 | PM.IMPN1 ---
Progress Note: A&P Assessment and Plan (1) Bilateral pneumonia: Assessment and Plan: Worsening hypoxia and infiltrates on chest x-ray. Since patient has history of lung cancer and was initially treated with oral antibiotics. I will broaden his antibiotic coverage to IV vancomycin and Zosyn Wean off oxygen as tolerated. Currently on high flow oxygen Qualifiers: Pneumonia type: due to unspecified organism Lung location: lower lobe of lung Qualified Code(s): J18.9 - Pneumonia, unspecified organism (2) COPD exacerbation: Assessment and Plan: COPD exacerbation likely secondary to bacterial pneumonia. Continue with systemic steroids, inhaled bronchodilators. Wean off oxygen as tolerated (3) Acute respiratory failure with hypoxia: Assessment and Plan: Worsening hypoxia earlier today and is currently on high flow oxygen. He is requiring 60% FiO2. Acute worsening likely secondary to acute on chronic diastolic heart failure for which she was started on IV Lasix. I also broaden his antibacterial coverage to IV vancomycin and Zosyn. Wean off oxygen as to related. (4) Acute on chronic diastolic (congestive) heart failure: Assessment and Plan: Worsening pulmonary edema along with elevated BNP. Echocardiogram ordered. Patient started on IV Lasix 40 twice daily. Monitor intake/output. Monitor daily weight. (5) Hypertension: Assessment and Plan: Stable. Continue with home medications. Qualifiers: Hypertension type: primary hypertension Qualified Code(s): I10 - Essential (primary) hypertension (6) BPH (benign prostatic hyperplasia): Assessment and Plan: Continue with home med Qualifiers: Lower urinary tract symptom presence: symptoms absent Qualified Code(s): N40.0 - Benign prostatic hyperplasia without lower urinary tract symptoms (7) Depression with anxiety: Assessment and Plan: Continue with home medications (8) CAD (coronary artery disease): Assessment and Plan: Stable. Continue with home meds. Qualifiers: Coronary Disease-Associated Artery/Lesion type: [place] artery [place] vs. transplanted heart: [place] heart Associated angina: without angina Qualified Code(s): I25.10 - Atherosclerotic heart disease of [place] coronary artery without angina pectoris (9) Lung cancer: Assessment and Plan: According to patient, he is in remission He could not tolerate immunotherapy Immunosuppressed, at high risk of poor outcome because of lung cancer and recent antibiotic use and recent immunotherapy Qualifiers: Laterality: unspecified laterality Lung location: unspecified part of lung Qualified Code(s): C34.90 - Malignant neoplasm of unspecified part of unspecified bronchus or lung (10) Malnutrition: Assessment and Plan: Patient has unspecified weight loss, poor p.o. intake, evidence of malnutrition from poor muscle mass/low serum protein and albumin. Unlikely secondary to lung cancer and active disease burden. Qualifiers: Malnutrition type: protein-calorie malnutrition Protein-calorie malnutrition severity: moderate Qualified Code(s): E44.0 - Moderate protein-calorie malnutrition Internal Medicine - PN: Subj Subjective Interval history: Patient seen and examined. Earlier today he woke up with acute respiratory distress and worsening hypoxia and was switched over to high flow oxygen. Workup ordered for acute change point towards acute fluid overload from acute on chronic diastolic heart failure for which she was given IV Lasix. He is a still on high flow oxygen but has no evidence of respiratory distress. Exam Constitutional Vital Signs, click to edit/add: Last Vital Signs Temp 97.6 F 11/09/23 07:15 Pulse 80 11/09/23 11:43 Resp 22 H 11/09/23 07:15 BP 144/65 H 11/09/23 10:49 Pulse Ox 97 11/09/23 11:43 O2 Del Method Vapotherm 11/09/23 11:25 O2 Flow Rate 40 11/09/23 11:25 FiO2 60 11/09/23 11:25 Documenting provider has reviewed patient's vital signs: yes Common normals: no apparent distress and oriented x3 General appearance: cooperative HENMT Common normals: normocephalic and head/scalp atraumatic Respiratory Common normals: normal respiratory effort Effort & inspection: able to speak in complete sentences and tachypneic Auscultation: rales bilateral and diffuse and wheezes expiratory wheezes and throughout Cardio Common normals: regular rate, regular rhythm and S2 normal heart sound GI Common normals: Normal to inspection, nondistended, normoactive bowel sounds present, soft to palpation, non-tender and no hepatosplenomegaly Extremity Common normals: normal to inspection and full ROM Neuro Common normals: oriented x3, moves all extremities, no focal motor deficits and no sensory deficits noted Psych Common normals: mental status grossly normal, denies homicidal ideation and denies suicidal ideation Internal Medicine - PN: Obj Da Labs Labs: Laboratory Results - last 24 hr 11/09/23 05:27 WBC 13.0 H RBC 2.78 L Hgb 9.4 L Hct 28.5 L MCV 102.5 H MCH 33.8 MCHC 33.0 RDW 15.2 H Plt Count 228 MPV 10.3 Neut % (Auto) 90.7 H Lymph % (Auto) 3.5 L [place] % (Auto) 4.5 Eos % (Auto) 0.0 L Baso % (Auto) 0.2 Neut # (Auto) 11.8 H Lymph # (Auto) 0.5 L [place] # (Auto) 0.6 Eos # (Auto) 0.0 Baso # (Auto) 0.0 Abs Immat Gran (auto) 0.14 H Imm/Tot Granulo (auto) 1.1 H Sodium 140 Potassium 3.8 Chloride 103 Carbon Dioxide 25.6 Anion Gap 15.2 BUN 21.0 H Creatinine 0.97 Est GFR ( Amer) >60 Est GFR (Non-Af Amer) >60 BUN/Creatinine Ratio 21.6 Glucose 157 H Calcium 9.2 Total Bilirubin 0.3 AST 64 H ALT 84 H Alkaline Phosphatase 107 NT-Pro-B Natriuret Pep 2867.0 H* Total Protein 7.6 Albumin 2.7 L Globulin 4.9 Albumin/Globulin Ratio 0.6
--- NOTE | 2023-11-09 16:02 | RESP.RT ---
decreased FiO2 to 40% from 50%
[2023-11-09] MEDS: ENOXAPARIN SODIUM 40 MG/0.4 ML SYRINGE SUBQ (17:26)
[2023-11-09] MEDS: ACETAMINOPHEN 325 MG TABLET 650 MG PO (20:43)
[2023-11-09] MEDS: BENZONATATE 100 MG CAPSULE 200 MG PO (20:43)
[2023-11-09] MEDS: TAMSULOSIN HCL 0.4 MG CAPSULE 0.800000000000000044 MG PO (20:43)
[2023-11-10] VITALS (23 sets, daily range): BP systolic 133–162; BP diastolic 60–79; PULSE 59–86; TEMP 36.6–36.9; O2SAT 77–100
[2023-11-10] MEDS: IPRATROPIUM/ALBUTEROL SULFATE 3 ML AMPUL.NEB IH ×6 (03:56→23:02)
[2023-11-10] MEDS: PIPERACILLIN SODIUM/TAZOBACTAM 3.375 GM in 0.9 % SODIUM CHLORIDE 50 ML IV ×3 (04:00→20:39)
[2023-11-10] MEDS: METHYLPREDNISOLONE SOD SUCC PF 40 MG/ML VIAL IVP ×4 (05:23→23:02)
[2023-11-10] MEDS: CLONAZEPAM 0.5 MG TABLET 1 MG PO ×2 (05:23→20:47)
--- NOTE | 2023-11-10 05:34 | RESP.RT ---
decreased to 5L nasal cannula
[2023-11-10 05:57] LABS: Basophils Percent Auto 0.1 % (0.2-2.0); Hematocrit 28.5 % (42.0-54.0); Hemoglobin 9.5 g/dL (14.0-18.0); Immature Granulocytes Abs Auto 0.04 10^3/uL (0.00-0.03); Immature Granulocytes Pct Auto 0.3 % (0.0-0.5); Lymphocytes Absolute Auto 0.4 10^3/uL (1.2-3.8); Lymphocytes Percent Auto 3.8 % (20.5-60.0); Mean Corpuscular HGB Conc 33.3 g/dL (29.9-35.2); Mean Corpuscular Hemoglobin 34.4 pg (25.9-34.0); Mean Corpuscular Volume 103.3 fL (80.0-94.0); Mean Platelet Volume 10.4 fL (9.5-13.5); Monocytes Absolute Auto 0.6 10^3/uL (0.3-0.8); Monocytes Percent Auto 4.7 % (1.7-12.0); Neutrophils Absolute Auto 10.6 10^3/uL (1.4-6.5); Neutrophils Percent Auto 91.1 % (43.0-75.0); Platelet Count 239 10^3/uL (150-450); Red Blood Count 2.76 10^6/uL (4.70-6.10); Red Cell Distribution Width 15.4 % (11.0-15.0); White Blood Count 11.7 10^3/uL (4.0-11.0)
[2023-11-10 06:16] LABS: Alanine Aminotransferase 85 U/L (16-63); Albumin Globulin Ratio 0.6; Albumin Level 2.6 g/dL (3.4-5.0); Alkaline Phosphatase 107 U/L (46-116); Anion Gap 12.3; Aspartate Amino Transferase 47 U/L (15-37); BUN Creatinine Ratio 24.8; Bilirubin Total 0.4 mg/dL (0.2-1.0); Carbon Dioxide 30.1 mmol/L (21.0-32.0); Chloride 99 mmol/L (98-107); Estimated GFR (African America >60 (>=60); Estimated GFR (Non-African Ame >60 (>=60); Globulin 4.7 g/dL; Glucose 165 mg/dL (74-106); Potassium 3.4 mmol/L (3.5-5.1); Sodium 138 mmol/L (136-145); Total Protein 7.3 g/dL (6.4-8.2)
--- NOTE | 2023-11-10 06:57 | RESP.RT ---
titrated down to 4L
[2023-11-10] MEDS: FUROSEMIDE 40 MG/4 ML VIAL IVP ×2 (08:51→20:43)
[2023-11-10] MEDS: DOCUSATE SODIUM 100 MG CAPSULE 200 MG PO ×2 (08:52→20:41)
[2023-11-10] MEDS: MELOXICAM 7.5 MG TABLET 15 MG PO (08:52)
[2023-11-10] MEDS: AMLODIPINE BESYLATE 5 MG TABLET 2.5 MG PO (08:52)
[2023-11-10] MEDS: SENNOSIDES 8.6 MG TABLET 17.1999999999999993 MG PO ×2 (08:52→20:41)
[2023-11-10] MEDS: TRIAMTERENE PO (08:52)
[2023-11-10] MEDS: METOPROLOL SUCCINATE 25 MG TAB.ER.24H PO (08:52)
[2023-11-10] MEDS: HCTZ PO (08:52)
[2023-11-10] MEDS: DULOXETINE HCL 60 MG CAPSULE.DR PO ×2 (08:52→20:41)
[2023-11-10] MEDS: VANCOMYCIN HCL 1,000 MG in 0.9 % SODIUM CHLORIDE 250 ML 250 MG IV ×2 (08:53→20:41)
[2023-11-10] MEDS: FINASTERIDE 5 MG TABLET PO (08:53)
[2023-11-10] MEDS: ASPIRIN 81 MG TABLET.DR PO (08:53)
[2023-11-10] MEDS: GABAPENTIN 300 MG CAPSULE 600 MG PO ×2 (08:53→16:57)
[2023-11-10] MEDS: ATORVASTATIN CALCIUM 40 MG TABLET PO (08:53)
--- NOTE | 2023-11-10 09:42 | P.PN_ITS ---
Progress Note: Subjective Subjective Interval history: Patient much improved this am. Less SOB and chest not as tight. Able to take off high flow oxygen and maintaining normal SpO2 on NC. Mild cough. Afebrile. No edema. Normal appetite and no emesis or diarrhea. No chest pain or palpitations. Exam Constitutional Vital Signs, click to edit/add: Last Vital Signs Temp 98.0 F 11/10/23 09:01 Pulse 76 11/10/23 09:01 Resp 18 11/10/23 09:01 BP 162/73 H 11/10/23 09:01 Pulse Ox 94 L 11/10/23 09:01 O2 Del Method Nasal Cannula 11/10/23 09:01 O2 Flow Rate 5 11/10/23 06:54 FiO2 35 11/09/23 20:41 Documenting provider has reviewed patient's vital signs: yes Common normals: no apparent distress, oriented x3 and alert HENMT Common normals: normocephalic Eye Common normals: PERRL and EOMs intact bilaterally Respiratory Auscultation: wheezes and diminished lung sounds Cardio Common normals: regular rate, regular rhythm, no gallops, no murmurs and no rub GI Common normals: Normal to inspection, nondistended, normoactive bowel sounds present and non-tender Extremity Common normals: no pedal edema Progress Note: Objective Labs Labs: Short CBC 11/10/23 Range/Units 04:57 WBC 11.7 H (4.0-11.0) 10^3/uL Hgb 9.5 L (14.0-18.0) g/dL Hct 28.5 L (42.0-54.0) % Plt Count 239 (150-450) 10^3/uL BMP 11/10/23 04:57 Sodium 138 Potassium 3.4 L Chloride 99 Carbon Dioxide 30.1 BUN 27.0 H Creatinine 1.09 Glucose 165 H Calcium 9.0 Liver Function 11/10/23 Range/Units 04:57 Total Bilirubin 0.4 (0.2-1.0) mg/dL AST 47 H (15-37) U/L ALT 85 H (16-63) U/L Alkaline Phosphatase 107 (46-116) U/L Albumin 2.6 L (3.4-5.0) g/dL Progress Note: A&P Assessment and Plan (1) Community acquired pneumonia: (2) COPD exacerbation: (3) Acute on chronic diastolic (congestive) heart failure: (4) Acute respiratory failure with hypoxia: (5) Malnutrition: Qualifiers: Malnutrition type: protein-calorie malnutrition Protein-calorie malnutrition severity: moderate Qualified Code(s): E44.0 - Moderate protein- calorie malnutrition (6) Hypertension: Qualifiers: Hypertension type: primary hypertension Qualified Code(s): I10 - Essential (primary) hypertension (7) Lung cancer: Qualifiers: Laterality: unspecified laterality Lung location: unspecified part of lung Qualified Code(s): C34.90 - Malignant neoplasm of unspecified part of unspecified bronchus or lung (8) CAD (coronary artery disease): Qualifiers: Coronary Disease-Associated Artery/Lesion type: [place] artery [place] vs. transplanted heart: [place] heart Associated angina: without angina Qualified Code(s): I25.10 - Atherosclerotic heart disease of [place] coronary artery without angina pectoris Plan Patient improved overnight. Continue antibiotics for pneumonia and will repeat chest x-ray in am. Continue IV lasix for CHF. Wean O2 as tolerated. Continue PEP and increase ambulation. Monitor labs. Likely will need home oxygen at discharge.
[2023-11-10 10:58] LABS: Vancomycin Trough 15.6 ug/mL (5.0-20.0)
[2023-11-10] MEDS: BUDESONIDE 0.5 MG/2 ML AMPULE NEB IH ×2 (11:05→23:03)
--- NOTE | 2023-11-10 11:11 | RESP.RT ---
titrated down to 4L
[2023-11-10] MEDS: 0.9 % SODIUM CHLORIDE 250 ML 10 ML IV (12:09)
--- NOTE | 2023-11-10 15:13 | RESP.RT ---
Titrated down to 3L. Pt does well sitting still, but does desat when he gets up and walks.
--- NOTE | 2023-11-10 15:27 | RESP.RT ---
could not maintain spo2 over 90 so increased to 3L
[2023-11-10] MEDS: ENOXAPARIN SODIUM 40 MG/0.4 ML SYRINGE SUBQ (16:56)
[2023-11-10] MEDS: TAMSULOSIN HCL 0.4 MG CAPSULE 0.800000000000000044 MG PO (21:30)
[2023-11-11] VITALS (11 sets, daily range): BP systolic 113–170; BP diastolic 57–71; PULSE 63–96; TEMP 36.3–36.7; O2SAT 83–98
[2023-11-11] MEDS: GABAPENTIN 300 MG CAPSULE 600 MG PO ×2 (00:14→08:12)
[2023-11-11] MEDS: IPRATROPIUM/ALBUTEROL SULFATE 3 ML AMPUL.NEB IH ×3 (03:45→11:20)
[2023-11-11] MEDS: PIPERACILLIN SODIUM/TAZOBACTAM 3.375 GM in 0.9 % SODIUM CHLORIDE 50 ML IV (04:43)
--- NOTE | 2023-11-11 05:00 | XR_ITS ---
[address] [address] Patient Name: RAGHAVENDRA HEARD MRN: [id number] date: 1945 Sex: M Assigned Patient Location: ICU Current Patient Location: ICU Accession/Order Number: [id number] Exam Date: 11/11/2023 04:45 Report Date: 11/11/2023 06:10 At the request of: GREG CAST Procedure: XR chest 1V EXAMINATION: XR chest 1V HISTORY: Pneumonia, CHF COMPARISON: XR chest 11/09/2023 FINDINGS: LUNGS: Mild haziness and stranding within right lung base. Moderate diffuse opacities throughout left lung. VASCULATURE: No increased pulmonary vasculature. PLEURA: Possible small right pleural effusion.. CARDIAC: No cardiomegaly or cardiac silhouette abnormality. MEDIASTINUM: No visible mass or adenopathy. BONES: No fracture or visible bone lesion. OTHER: Stable right Port-A-Cath. XR/XR chest 1V IMPRESSION: 1. Mild right basilar infiltrates; significantly improved. A small pleural effusion cannot be excluded. 2. Diffuse, moderate left pulmonary infiltrates; unchanged. Electronically authenticated by: ARPIT DIEZ Date: 11/11/2023 06:10
[2023-11-11] MEDS: METHYLPREDNISOLONE SOD SUCC PF 40 MG/ML VIAL IVP ×2 (05:26→11:49)
[2023-11-11 05:37] LABS: Basophils Percent Auto 0.1 % (0.2-2.0); Hematocrit 32.3 % (42.0-54.0); Immature Granulocytes Abs Auto 0.07 10^3/uL (0.00-0.03); Immature Granulocytes Pct Auto 0.5 % (0.0-0.5); Lymphocytes Absolute Auto 0.6 10^3/uL (1.2-3.8); Mean Corpuscular HGB Conc 34.1 g/dL (29.9-35.2); Mean Corpuscular Hemoglobin 34.4 pg (25.9-34.0); Mean Corpuscular Volume 100.9 fL (80.0-94.0); Mean Platelet Volume 9.8 fL (9.5-13.5); Monocytes Absolute Auto 0.9 10^3/uL (0.3-0.8); Monocytes Percent Auto 6.1 % (1.7-12.0); Neutrophils Absolute Auto 12.8 10^3/uL (1.4-6.5); Neutrophils Percent Auto 89.3 % (43.0-75.0); Platelet Count 302 10^3/uL (150-450); Red Cell Distribution Width 14.7 % (11.0-15.0); White Blood Count 14.3 10^3/uL (4.0-11.0)
[2023-11-11 05:47] LABS: Alanine Aminotransferase 175 U/L (16-63); Albumin Globulin Ratio 0.6; Alkaline Phosphatase 121 U/L (46-116); Anion Gap 12.1; Aspartate Amino Transferase 79 U/L (15-37); BUN Creatinine Ratio 25.8; Bilirubin Total 0.7 mg/dL (0.2-1.0); Calcium 9.6 mg/dL (8.5-10.1); Carbon Dioxide 34.1 mmol/L (21.0-32.0); Chloride 95 mmol/L (98-107); Estimated GFR (African America >60 (>=60); Estimated GFR (Non-African Ame 59 (>=60); Globulin 5.4 g/dL; Glucose 149 mg/dL (74-106); Potassium 3.2 mmol/L (3.5-5.1); Sodium 138 mmol/L (136-145); Total Protein 8.4 g/dL (6.4-8.2)
[2023-11-11] MEDS: VANCOMYCIN HCL 1,000 MG in 0.9 % SODIUM CHLORIDE 250 ML 250 MG IV (08:11)
[2023-11-11] MEDS: METOPROLOL SUCCINATE 25 MG TAB.ER.24H PO (08:12)
[2023-11-11] MEDS: MELOXICAM 7.5 MG TABLET 15 MG PO (08:12)
[2023-11-11] MEDS: FINASTERIDE 5 MG TABLET PO (08:12)
[2023-11-11] MEDS: AMLODIPINE BESYLATE 5 MG TABLET 2.5 MG PO (08:12)
[2023-11-11] MEDS: TRIAMTERENE PO (08:12)
[2023-11-11] MEDS: HCTZ PO (08:12)
[2023-11-11] MEDS: ATORVASTATIN CALCIUM 40 MG TABLET PO (08:13)
[2023-11-11] MEDS: SENNOSIDES 8.6 MG TABLET 17.1999999999999993 MG PO (08:13)
[2023-11-11] MEDS: FUROSEMIDE 40 MG/4 ML VIAL IVP (08:13)
[2023-11-11] MEDS: DULOXETINE HCL 60 MG CAPSULE.DR PO (08:13)
[2023-11-11] MEDS: DOCUSATE SODIUM 100 MG CAPSULE 200 MG PO (08:13)
[2023-11-11] MEDS: ASPIRIN 81 MG TABLET.DR PO (08:13)
[2023-11-11] MEDS: CLONAZEPAM 0.5 MG TABLET 1 MG PO (08:13)
[2023-11-11] MEDS: DIAZEPAM 5 MG TABLET PO (10:04)
--- NOTE | 2023-11-11 10:31 | P.DS_ITS ---
DS: Providers Provider Date of admission: 11/07/23 15:13 Primary care physician: PRERNA VALENTINO Consults: 11/07/23 Consult to Length Control Tester Routine Reason for consult:: Advanced Directives 11/07/23 12:04 Occupational Therapy Eval and Treat Routine Reason for consultation: Ambulatory dysfunction/weakness Physical Therapy Eval and Treat Routine Reason for consultation: Ambulatory dysfunction/weakness DS: Diagnosis Discharge Diagnosis (1) Community acquired pneumonia: (2) COPD exacerbation: (3) Acute on chronic diastolic (congestive) heart failure: (4) Acute respiratory failure with hypoxia: (5) Malnutrition: Qualifiers: Malnutrition type: protein-calorie malnutrition Protein-calorie malnutrition severity: moderate Qualified Code(s): E44.0 - Moderate protein- calorie malnutrition (6) Hypertension: Qualifiers: Hypertension type: primary hypertension Qualified Code(s): I10 - Essential (primary) hypertension (7) Lung cancer: Qualifiers: Laterality: unspecified laterality Lung location: unspecified part of lung Qualified Code(s): C34.90 - Malignant neoplasm of unspecified part of unspecified bronchus or lung (8) CAD (coronary artery disease): Qualifiers: Coronary Disease-Associated Artery/Lesion type: [place] artery [place] vs. transplanted heart: [place] heart Associated angina: without angina Qualified Code(s): I25.10 - Atherosclerotic heart disease of [place] coronary artery without angina pectoris DS: Summary Hospital Course Hospital Course: Reason for admission: See H&P for details. 78 y/o male to ER with SOB. History of lung cancer treated with right upper lobe resection and chemo. Increased SOB for several days. SpO2 88% on room air at home and concerned of pneumonia. To ER and afebrile. Found hypoxia and chest x-ray with pneumonia. Admitted for treatment. Hospital course: Started rocephin and zithromax for pneumonia. Started solu- medrol and DuoNeb for COPD exacerbation. Resumed home medication. Developed worsening SOB. WBC elevated and chest x-ray with worsening infiltrates. BNP elevated. Worsening hypoxia and placed on high flow oxygen. Changed an tibiotics to zosyn and vancomycin. Started IV lasix. Breathing improved. Echo showed normal EF and diastolic dysfunction. Able to wean off high flow oxygen and on nasal canula. SOB improved and mild cough. Repeat x-ray with improved infiltrates and no fluid overload. Able to wean down to 2 LPM but not able to wean to room air. Walk test performed and patient desaturated to 83% on room air but recovered. Arranged for home oxygen with portability at 2 LPM. Discharged home in stable condition. Will continue oral lasix. Take augmentin and doxycycline for pneumonia. Take prednisone tapered over 12 days for COPD. Resume other home medication as directed. Follow up with PCP in 1-2 weeks. Time Spent with Patient Time attestation: Total time spent providing and/or coordinating discharge services: Time spent: greater than 30 minutes Exam Constitutional Vital Signs, click to edit/add: Last Vital Signs Temp 98.1 F 11/11/23 08:15 Pulse 85 11/11/23 08:15 Resp 18 11/11/23 08:48 BP 141/71 11/11/23 08:15 Pulse Ox 98 11/11/23 08:25 O2 Del Method Nasal Cannula 11/11/23 08:25 O2 Flow Rate 2 11/11/23 08:25 FiO2 35 11/09/23 20:41 Documenting provider has reviewed patient's vital signs: yes Common normals: no apparent distress, oriented x3 and alert HENMT Common normals: normocephalic Eye Common normals: PERRL and EOMs intact bilaterally Respiratory Common normals: normal respiratory effort and clear to auscultation bilaterally Cardio Common normals: regular rate, regular rhythm, no gallops, no murmurs and no rub GI Common normals: Normal to inspection, nondistended, normoactive bowel sounds present and non-tender Extremity Common normals: no pedal edema DS: Data Data Completed and Pending Labs on day of discharge: Labs from last 24 hours 11/11/23 11/10/23 05:24 08:08 WBC 14.3 H RBC 3.20 L Hgb 11.0 L Hct 32.3 L MCV 100.9 H MCH 34.4 H MCHC 34.1 RDW 14.7 Plt Count 302 MPV 9.8 Neut % (Auto) 89.3 H Lymph % (Auto) 4.0 L [place] % (Auto) 6.1 Eos % (Auto) 0.0 L Baso % (Auto) 0.1 L Neut # (Auto) 12.8 H Lymph # (Auto) 0.6 L [place] # (Auto) 0.9 H Eos # (Auto) 0.0 Baso # (Auto) 0.0 Abs Immat Gran (auto) 0.07 H Imm/Tot Granulo (auto) 0.5 Sodium 138 Potassium 3.2 L Chloride 95 L Carbon Dioxide 34.1 H Anion Gap 12.1 BUN 31.0 H Creatinine 1.20 Est GFR ( Amer) >60 Est GFR (Non-Af Amer) 59 L BUN/Creatinine Ratio 25.8 Glucose 149 H Calcium 9.6 Total Bilirubin 0.7 AST 79 H ALT 175 H Alkaline Phosphatase 121 H Total Protein 8.4 H Albumin 3.0 L Globulin 5.4 Albumin/Globulin Ratio 0.6 Vancomycin Trough 15.6 Preliminary micro results at discharge 11/07/23 11:42 - Preliminary Blood NO GROWTH AT 36-48 HOURS. FINAL TO FOLLOW. 11/07/23 11:30 Blood Culture Result 1 - Preliminary Blood NO GROWTH AT 36-48 HOURS. FINAL TO FOLLOW. Discharge Plan Discharge Disposition: Home, Self-Care Condition: Fair Discharge Medications: New furosemide 40 mg tablet 40 mg PO DAILY Qty: 30 0RF prednisone 10 mg tablets,dose pack 10 mg PO DAILY Qty: 39 0RF Rx Instructions: 6 PO daily x 3 days, then 4 PO daily x 3 days, then 2 PO daily x 3 days, then 1 PO daily x 3 days amoxicillin-pot clavulanate 875-125 mg tablet 1 tab PO Q12H 14 Days Qty: 28 0RF doxycycline monohydrate 100 mg capsule 100 mg PO BID 14 Days Qty: 28 0RF Continued albuterol sulfate 2.5 mg /3 mL (0.083 %) solution for nebulization 2.5 mg inhalation Q6H PRN (Reason: shortness of breath or wheezing) albuterol sulfate 90 mcg/actuation HFA aerosol inhaler 1 puff INHALATION Q4H PRN (Reason: shortness of breath or wheezing) clonazepam 1 mg tablet 1 mg PO TID PRN (Reason: anxiety) duloxetine 60 mg capsule,delayed release(DR/EC) 60 mg PO BID Trelegy Ellipta 100-62.5-25 mcg blister with device 1 inh INHALATION DAILY hydrocodone-acetaminophen 5-325 mg tablet 2 tab PO Q6H PRN (Reason: pain) amlodipine 2.5 mg tablet 2.5 mg PO QDAY atorvastatin 40 mg tablet 40 mg PO QDAY metoprolol succinate 25 mg tablet extended release 24 hr 25 mg PO QAM tamsulosin 0.4 mg capsule 0.8 mg PO .QHS docusate sodium [Stool Softener] 100 mg capsule 200 mg PO BID finasteride 5 mg tablet 5 mg PO QDAY gabapentin 300 mg capsule 600 mg PO Q8H meloxicam 15 mg tablet 15 mg PO QDAY nitroglycerin 0.4 mg tablet, sublingual 0.4 mg sublingual Q5M PRN (Reason: chest pain) sennosides [Senna Laxative] 8.6 mg tablet 17.2 mg PO BID triamterene-hydrochlorothiazid 37.5-25 mg tablet 1 tab PO QAM aspirin [Adult Aspirin Regimen] 81 mg tablet,delayed release (DR/EC) 81 mg PO DAILY cholecalciferol (vitamin D3) [D3 DOTS] 50 mcg (2,000 unit) tablet 50 mcg PO DAILY diazepam 5 mg tablet 5 mg PO Q8H PRN (Reason: cramping) Activity: increase activity as tolerated Diet: advance to your usual diet Print Language: Estonian Forms: Portal Instructions
[2023-11-11] MEDS: BUDESONIDE 0.5 MG/2 ML AMPULE NEB IH (11:20)
--- NOTE | 2023-11-13 13:05 | CM.DCFOLLOWU ---
1st attempt, no answer 11/13/23
--- NOTE | 2023-11-14 12:06 | CM.DCFOLLOWU ---
Person spoke with: patient How are you feeling? well How is your pain? no pain, not as short of breath Did you understand your discharge instructions?yes Do you have any questions about your discharge instructions? no Were you given any prescriptions at discharge? yes Were you able to get your prescriptions filled? yes Do you understand how to take your medications as ordered? yes Do you have any questions about your follow up appointment and do you plan to keep your follow up appointment? no questions, spoke to Dr. Grissom's office and scheduled follow up Is there anything else that you would like to discuss? no Questions/Comments/Concerns/Other: Very thankful for all the nurses/nursing aides who assisted with his care. Thankful for respiratory therapy as well.
== END 2023-11-11 15:58 | disposition home or self-care (01) | DRG 193 ==
LOC: ER 15:14 → MS 15:21 → ER 15:23 → MS 15:23 → ICU 11-10 19:25 → MS 11-12 10:26
PROVIDERS: Admitting Provider Internal Medicine; Emergency Provider Emergency Medicine; PCP Internal Medicine; Visit Provider Family Medicine
DX: J18.9 Pneumonia, unspecified organism (principal); I50.33 Acute on chronic diastolic (congestive) heart failure; J96.01 Acute respiratory failure with hypoxia; J44.0 Chronic obstructive pulmonary disease with (acute) lower respiratory infection; J44.1 Chronic obstructive pulmonary disease with (acute) exacerbation; E44.0 Moderate protein-calorie malnutrition; I11.0 Hypertensive heart disease with heart failure; I25.10 Atherosclerotic heart disease of native coronary artery without angina pectoris; E78.5 Hyperlipidemia, unspecified; N40.0 Benign prostatic hyperplasia without lower urinary tract symptoms; F32.A Depression, unspecified; F41.9 Anxiety disorder, unspecified; Z85.118 Personal history of other malignant neoplasm of bronchus and lung; I25.2 Old myocardial infarction; Z87.891 Personal history of nicotine dependence; Z79.82 Long term (current) use of aspirin; Z79.899 Other long term (current) drug therapy; Z90.49 Acquired absence of other specified parts of digestive tract; Z90.2 Acquired absence of lung [part of]; Z68.23 Body mass index [BMI] 23.0-23.9, adult; Z20.822 Contact with and (suspected) exposure to COVID-19
CPT/HCPCS: 0202U; 36415; 36591; 71045; 80053; 80202; 83880; 84484; 85025; 87040; 87070; 87811; 93005; 93306; 94640; 94667; 94668; 94761; 94799; 96365; 96366; 96367; 96368; 96372; 96375; 96376; 97165; 97530; 99285; J1100; J2919; J3370

== ENCOUNTER 2023-11-21 11:09 | Emergency (ER) | payer MEDICARE, OTHER, SELFPAY ==
[2023-11-21] VITALS (17 sets, daily range): BP systolic 116–166; BP diastolic 67–75; PULSE 45–53; TEMP 36.6; O2SAT 81–99; BMI 23.6
--- NOTE | 2023-11-21 12:16 | ECG_ITS ---
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
--- NOTE | 2023-11-21 12:16 | XR_ITS ---
[address] [address] Patient Name: RAGHAVENDRA HEARD MRN: [id number] date: 1945 Sex: M Assigned Patient Location: ER Current Patient Location: ER Accession/Order Number: [id number] Exam Date: 11/21/2023 12:41 Report Date: 11/21/2023 13:07 At the request of: OMID VORA Procedure: XR chest 1V EXAMINATION: XR chest 1V HISTORY: syncope COMPARISON: 11/11/2023 TECHNIQUE: AP portable erect FINDINGS: LUNGS: No significant pulmonary parenchymal abnormalities. VASCULATURE: No increased pulmonary vasculature. PLEURA: No pneumothorax. . Elevation of the right hemidiaphragm with blunting of the right lateral costophrenic angle CARDIAC: No cardiomegaly or cardiac silhouette abnormality. MEDIASTINUM: No visible mass or adenopathy. Right Port-A-Cath BONES: No fracture or visible bone lesion. Dextrocurvature OTHER: Negative. XR/XR chest 1V IMPRESSION: Stable blunting of the right lateral costophrenic angle with elevated right hemidiaphragm No new focal infiltrates Electronically authenticated by: CHANTAL MALONE Date: 11/21/2023 13:07
[2023-11-21 12:50] LABS: Basophils Percent Auto 0.2 % (0.2-2.0); Eosinophils Absolute Auto 0.1 10^3/uL (0.0-0.7); Eosinophils Percent Auto 0.6 % (0.9-7.0); Hematocrit 32.4 % (42.0-54.0); Hemoglobin 10.5 g/dL (14.0-18.0); Immature Granulocytes Abs Auto 0.04 10^3/uL (0.00-0.03); Immature Granulocytes Pct Auto 0.3 % (0.0-0.5); Lymphocytes Absolute Auto 1.5 10^3/uL (1.2-3.8); Lymphocytes Percent Auto 12.7 % (20.5-60.0); Mean Corpuscular HGB Conc 32.4 g/dL (29.9-35.2); Mean Corpuscular Hemoglobin 34.1 pg (25.9-34.0); Mean Corpuscular Volume 105.2 fL (80.0-94.0); Monocytes Absolute Auto 0.7 10^3/uL (0.3-0.8); Monocytes Percent Auto 5.7 % (1.7-12.0); Neutrophils Absolute Auto 9.7 10^3/uL (1.4-6.5); Neutrophils Percent Auto 80.5 % (43.0-75.0); Platelet Count 250 10^3/uL (150-450); Red Blood Count 3.08 10^6/uL (4.70-6.10); Red Cell Distribution Width 15.5 % (11.0-15.0)
[2023-11-21] MEDS: 0.9 % SODIUM CHLORIDE 500 ML IV (12:59)
[2023-11-21 13:10] LABS: Alanine Aminotransferase 44 U/L (16-63); Albumin Globulin Ratio 0.7; Albumin Level 2.6 g/dL (3.4-5.0); Alkaline Phosphatase 68 U/L (46-116); Anion Gap 8.1; Aspartate Amino Transferase 21 U/L (15-37); BUN Creatinine Ratio 39.8; Bilirubin Total 0.7 mg/dL (0.2-1.0); Calcium 9.2 mg/dL (8.5-10.1); Carbon Dioxide 33.1 mmol/L (21.0-32.0); Chloride 103 mmol/L (98-107); Estimated GFR (African America >60 (>=60); Estimated GFR (Non-African Ame >60 (>=60); Globulin 3.8 g/dL; Glucose 114 mg/dL (74-106); Potassium 5.2 mmol/L (3.5-5.1); Sodium 139 mmol/L (136-145); Total Protein 6.4 g/dL (6.4-8.2)
[2023-11-21 13:12] LABS: Troponin I High Sensitivity 10.7 pg/mL (4.0-76.1)
[2023-11-21 13:15] LABS: Lactate/Lactic Acid 1.1 mmol/L (0.4-2.0)
--- NOTE | 2023-11-21 13:20 | ED_ITS ---
HPI HPI - General Adult General Chief complaint: Dizziness Stated complaint: DIZZY FEW DAYS Time Seen by Provider: 11/21/23 11:11 Source: patient Mode of arrival: ambulance Limitations: no limitations History of Present Illness HPI narrative: Patient presents to ED complaining of dizziness. He was at the doctor's office with his sister today he was pushing her out of her doctor's appointment when he passed out. 2 weeks ago he was admitted for pneumonia. He was also dizzy and fell yesterday. He has a history of Lung cancer with a right upper lobectomy in the past. He denies recent fevers or increased shortness of breath but just that he has been dizzy and lightheaded. He states he feels okay now. He has been a little lethargic and sleepy but patient's family states he is always like this. He denies any chest pain. Related Data Home Medications ?Medication ?Instructions ?Recorded ?Confirmed albuterol sulfate 2.5 mg/3 mL 2.5 mg inhalation Q6H PRN 11/07/23 11/07/23 (0.083 %) solution for nebulization shortness of breath or wheezing albuterol sulfate 90 mcg/actuation 1 puff inhalation Q4H PRN 11/07/23 11/07/23 aerosol inhaler shortness of breath or wheezing amlodipine 2.5 mg tablet 2.5 mg PO QDAY 11/07/23 11/07/23 aspirin 81 mg tablet,delayed 81 mg PO DAILY 11/07/23 11/07/23 release (Adult Aspirin Regimen) atorvastatin 40 mg tablet 40 mg PO QDAY 11/07/23 11/07/23 cholecalciferol (vitamin D3) 50 50 mcg PO DAILY 11/07/23 11/07/23 mcg (2,000 unit) tablet (D3 DOTS) clonazepam 1 mg tablet 1 mg PO TID PRN anxiety 11/07/23 11/07/23 docusate sodium 100 mg capsule 200 mg PO BID 11/07/23 11/07/23 (Stool Softener) duloxetine 60 mg capsule,delayed 60 mg PO BID 11/07/23 11/07/23 release finasteride 5 mg tablet 5 mg PO QDAY 11/07/23 11/07/23 fluticasone fur. 100 mcg-umeclid 1 inh inhalation DAILY 11/07/23 11/07/23 62.5 mcg-vilant 25 mcg inhalat.powder (Trelegy Ellipta) gabapentin 300 mg capsule 600 mg PO Q8H 11/07/23 11/07/23 hydrocodone 5 mg-acetaminophen 325 2 tab PO Q6H PRN pain 11/07/23 11/07/23 mg tablet meloxicam 15 mg tablet 15 mg PO QDAY 11/07/23 11/07/23 metoprolol succinate 25 mg 25 mg PO QAM 11/07/23 11/07/23 tablet,extended release 24 hr nitroglycerin 0.4 mg sublingual 0.4 mg sublingual Q5M PRN chest 11/07/23 4 tablet pain sennosides 8.6 mg tablet (Senna 17.2 mg PO BID 11/07/23 11/07/23 Laxative) tamsulosin 0.4 mg capsule 0.8 mg PO .QHS 11/07/23 11/07/23 triamterene 37.5 1 tab PO QAM 11/07/23 11/07/23 mg-hydrochlorothiazide 25 mg tablet diazepam 5 mg tablet 5 mg PO Q8H PRN cramping 11/11/23 11/11/23 Previous Rx's ?Medication ?Instructions ?Recorded amoxicillin 875 mg-potassium 1 tab PO Q12H 14 days #28 tabs 11/11/23 clavulanate 125 mg tablet doxycycline monohydrate 100 mg 100 mg PO BID 14 days #28 caps 11/11/23 capsule furosemide 40 mg tablet 40 mg PO DAILY #30 tabs 11/11/23 prednisone 10 mg tablets in a dose 10 mg PO DAILY #39 ea 11/11/23 pack Allergies Allergy/AdvReac Type Severity Reaction Status Date / Time No Known Drug Allergies Allergy Verified 11/07/23 11:03 Opioid HPI Opioid Management Most Recent Opioid Data: Last Pain Scale 2 11/09/23 22:07 Review of Systems ROS Status of ROS 10 or more systems reviewed and unremark able except as noted in history and below [facility] Medical History (Updated 11/21/23 @ 14:14 by Janel Butler DO) Malnutrition ?E46 - Unspecified protein-calorie malnutrition (ICD-10) Acute on chronic diastolic (congestive) heart failure ?I50.33 - Acute on chronic diastolic (congestive) heart failure (ICD-10) Acute respiratory failure with hypoxia ?J96.01 - Acute respiratory failure with hypoxia (ICD-10) CAD (coronary artery disease) ?I25.10 - Atherosclerotic heart disease of [place] coronary artery without angina pectoris (ICD-10) Hypertension ?I10 - Essential (primary) hypertension (ICD-10) Lung cancer ?C34.90 - Malignant neoplasm of unspecified part of unspecified bronchus or lung (ICD-10) Bilateral pneumonia ?J18.9 - Pneumonia, unspecified organism (ICD-10) Depression with anxiety ?F41.8 - Other specified anxiety disorders (ICD-10) BPH (benign prostatic hyperplasia) ?N40.0 - Benign prostatic hyperplasia without lower urinary tract symptoms (ICD-10) Past heart attack ?I25.2 - Old myocardial infarction (ICD-10) Surgical History (Updated 11/07/23 @ 16:06 by Kristan Florez RN) History of appendectomy ?Z90.49 - Acquired absence of other specified parts of digestive tract (ICD- 10) H/O pneumonectomy ?Z98.890 - Other specified postprocedural states (ICD-10) ?Z90.2 - Acquired absence of lung [part of] (ICD-10) Family History (Updated 11/07/23 @ 15:13 by Kristan Florez, ILENE) Father Family history of hypertension Social History (Updated 11/07/23 @ 15:14 by Kristan Florez, ILENE) Within the past year, how often did you have a drink containing alcohol: never Score interpretation: A score less than 4 is consistent with normal alcohol con sumption. Smoking status: Former smoker Non-prescribed substance use: denies use Highest level of school completed/degree received: high school graduate Exam Narrative Exam Narrative: Time Seen: [] Vital Signs: [Per nurse's notes.] General: [Alert] Skin: [Warm, dry, no rash.] Head: [Normocephalic, atraumatic.] Neck: [Supple, trachea midline.] Eye: [Pupils are equal, round and reactive to light, extraocular movements are intact, normal conjunctiva.] Ears, nose, mouth and throat: oral mucosa moist. Cardiovascular: [Regular rate and rhythm, no murmur.] Respiratory: Diminished breath sounds bilateral bases, respirations are non- labored, breath sounds are equal.] Chest wall: [No tenderness, no deformity.] Gastrointestinal: [Soft, nontender, non distended, normal bowel sounds.] MSK: 5 out of 5 muscle strength x 4 extremities no calf pain or edema Lymphatics: [No lymphadenopathy.] Psychiatric: [Cooperative, appropriate mood & affect.] Neurological: [Alert and oriented to person, place, time, and situation, no focal neurological deficit observed.] Constitutional Vital Signs, click to edit/add: Last Vital Signs Temp 97.8 F 11/21/23 11:11 Pulse 49 L 11/21/23 12:00 Resp 18 11/21/23 12:00 BP 124/69 11/21/23 12:00 Pulse Ox 96 11/21/23 12:00 O2 Del Method Room Air 11/21/23 11:11 Course Vital Signs Vital signs: Vital Signs Temperature 97.8 F 11/21/23 11:11 Pulse Rate 50 L 11/21/23 11:11 Respiratory Rate 18 11/21/23 11:11 Blood Pressure 116/70 11/21/23 11:11 Pulse Oximetry 96 11/21/23 11:11 Oxygen Delivery Method Room Air 11/21/23 11:11 Temperature 97.8 F 11/21/23 11:11 Pulse Rate 49 L 11/21/23 12:00 Respiratory Rate 18 11/21/23 12:00 Blood Pressure 124/69 11/21/23 12:00 Pulse Oximetry 96 11/21/23 12:00 Oxygen Delivery Method Room Air 11/21/23 11:11 Medical Decision Making MDM Narrative Medical decision making narrative: Patient's labs are nonacute. Troponin Negative x 1. Patient states he is feeling fine and would like to go home. Due to having a syncopal episode today I said I would prefer to admit him on manager integrity. He does not want to be admitted he would like to go home and states he would come back if anything worsens. He is alert and oriented in no acute distress able to make his own decisions. He will be at home with his Differential Diagnosis Differential Diagnosis: Syncope, cardiac arrhythmia, electrolyte abnormality,Pneumonia Medical Records Medical records reviewed: Yes I reviewed the patient's medical records Lab Data Lab results reviewed: Yes I reviewed the patient's lab results Labs: Lab Results 11/21/23 Range/Units 12:27 WBC 12.0 H (4.0-11.0) 10^3/uL RBC 3.08 L (4.70-6.10) 10^6/uL Hgb 10.5 L (14.0-18.0) g/dL Hct 32.4 L (42.0-54.0) % MCV 105.2 H (80.0-94.0) fL MCH 34.1 H (25.9-34.0) pg MCHC 32.4 (29.9-35.2) g/dL RDW 15.5 H (11.0-15.0) % Plt Count 250 (150-450) 10^3/uL MPV 10.0 (9.5-13.5) fL Neut % (Auto) 80.5 H (43.0-75.0) % Lymph % (Auto) 12.7 L (20.5-60.0) % [place] % (Auto) 5.7 (1.7-12.0) % Eos % (Auto) 0.6 L (0.9-7.0) % Baso % (Auto) 0.2 (0.2-2.0) % Neut # (Auto) 9.7 H (1.4-6.5) 10^3/uL Lymph # (Auto) 1.5 (1.2-3.8) 10^3/uL [place] # (Auto) 0.7 (0.3-0.8) 10^3/uL Eos # (Auto) 0.1 (0.0-0.7) 10^3/uL Baso # (Auto) 0.0 (0.0-0.1) 10^3/uL Abs Immat Gran (auto) 0.04 H (0.00-0.03) 10^3/uL Imm/Tot Granulo (auto) 0.3 (0.0-0.5) % Sodium 139 (136-145) mmol/L Potassium 5.2 H (3.5-5.1) mmol/L Chloride 103 (98-107) mmol/L Carbon Dioxide 33.1 H (21.0-32.0) mmol/L Anion Gap 8.1 BUN 41.0 H (7.0-18.0) mg/dL Creatinine 1.03 (0.70-1.30) mg/dL Est GFR ( Amer) >60 (>=60) Est GFR (Non-Af Amer) >60 (>=60) BUN/Creatinine Ratio 39.8 Glucose 114 H (74-106) mg/dL Lactate 1.1 (0.4-2.0) mmol/L Calcium 9.2 (8.5-10.1) mg/dL Total Bilirubin 0.7 (0.2-1.0) mg/dL AST 21 (15-37) U/L ALT 44 (16-63) U/L Alkaline Phosphatase 68 (46-116) U/L Troponin I High Sens 10.7 (4.0-76.1) pg/mL Total Protein 6.4 (6.4-8.2) g/dL Albumin 2.6 L (3.4-5.0) g/dL Globulin 3.8 g/dL Albumin/Globulin Ratio 0.7 Imaging Data Chest x-ray: Radiologist's impression: ITS Impressions Chest X-Ray 11/21/23 12:16 IMPRESSION: Stable blunting of the right lateral costophrenic angle with elevated right hemidiaphragm No new focal infiltrates Electronically authenticated by: CHANTAL MALONE Date: 11/21/2023 13:07 ECG Data Attestation: I personally reviewed and interpreted this ECG as follows: Interpretation: EKG INTERPRETATION Time: []1114 Rate: []48 Rhythm: _ []Sinus bradycardia ST segments: _ [] T waves: _ [] Ectopy: _ [] P wave/AR interval: _ [] QRS interval: _ [] QT interval: _ [] Comparison: _ [] Comparison EKG date: [] Performed by: [self]No acute ST elevation or depression Discharge Plan Discharge Stand Alone Forms: Portal Instructions Chief Complaint: Dizziness Clinical Impression: Syncope Patient Disposition: Home, Self-Care Time of Disposition Decision: 14:13 Mode of Transportation: Private Vehicle Prescriptions / Home Meds: No Action albuterol sulfate 2.5 mg /3 mL (0.083 %) solution for nebulization 2.5 mg inhalation Q6H PRN (Reason: shortness of breath or wheezing) albuterol sulfate 90 mcg/actuation HFA aerosol inhaler 1 puff INHALATION Q4H PRN (Reason: shortness of breath or wheezing) clonazepam 1 mg tablet 1 mg PO TID PRN (Reason: anxiety) duloxetine 60 mg capsule,delayed release(DR/EC) 60 mg PO BID Trelegy Ellipta 100-62.5-25 mcg blister with device 1 inh INHALATION DAILY hydrocodone-acetaminophen 5-325 mg tablet 2 tab PO Q6H PRN (Reason: pain) amlodipine 2.5 mg tablet 2.5 mg PO QDAY atorvastatin 40 mg tablet 40 mg PO QDAY metoprolol succinate 25 mg tablet extended release 24 hr 25 mg PO QAM tamsulosin 0.4 mg capsule 0.8 mg PO .QHS docusate sodium [Stool Softener] 100 mg capsule 200 mg PO BID finasteride 5 mg tablet 5 mg PO QDAY gabapentin 300 mg capsule 600 mg PO Q8H meloxicam 15 mg tablet 15 mg PO QDAY nitroglycerin 0.4 mg tablet, sublingual 0.4 mg sublingual Q5M PRN (Reason: chest pain) sennosides [Senna Laxative] 8.6 mg tablet 17.2 mg PO BID triamterene-hydrochlorothiazid 37.5-25 mg tablet 1 tab PO QAM aspirin [Adult Aspirin Regimen] 81 mg tablet,delayed release (DR/EC) 81 mg PO DAILY cholecalciferol (vitamin D3) [D3 DOTS] 50 mcg (2,000 unit) tablet 50 mcg PO DAILY diazepam 5 mg tablet 5 mg PO Q8H PRN (Reason: cramping) furosemide 40 mg tablet 40 mg PO DAILY Qty: 30 0RF prednisone 10 mg tablets,dose pack 10 mg PO DAILY Qty: 39 0RF Rx Instructions: 6 PO daily x 3 days, then 4 PO daily x 3 days, then 2 PO daily x 3 days, then 1 PO daily x 3 days amoxicillin-pot clavulanate 875-125 mg tablet 1 tab PO Q12H 14 Days Qty: 28 0RF doxycycline monohydrate 100 mg capsule 100 mg PO BID 14 Days Qty: 28 0RF Print Language: Tajik Instructions: Syncope (ED) Referrals: PRERNA VALENTINO [Primary Care Provider] - 1 week
[2023-11-21] MEDS: SODIUM ZIRCONIUM CYCLOSILICATE 10 GM POWD.PACK PO (13:22)
== END 2023-11-21 14:28 | disposition home or self-care (01) ==
PROVIDERS: Emergency Provider Emergency Medicine; PCP Internal Medicine
DX: R55 Syncope and collapse (principal); Z87.01 Personal history of pneumonia (recurrent); Z85.118 Personal history of other malignant neoplasm of bronchus and lung; Z90.2 Acquired absence of lung [part of]; Z87.891 Personal history of nicotine dependence
CPT/HCPCS: 36415; 71045; 80053; 83605; 84484; 85025; 87040; 93005; 99285

== ENCOUNTER 2024-01-07 18:29 | Emergency (ER) | payer MEDICARE, OTHER, SELFPAY ==
[2024-01-07 18:35] VITALS: BP 153/75; PULSE 64; TEMP 36.7; O2SAT 98; BMI 22.8
--- NOTE | 2024-01-07 21:35 | ED_ITS ---
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 presents complaining of pain. He is also on antibiotics per his Aut[employer] for URI. he denies headache or neck pain. Does not believe he struck his head. No pain or his hips or extremities. Related Data Home Medications ?Medication ?Instructions ?Recorded ?Confirmed albuterol sulfate 2.5 mg/3 mL 2.5 mg inhalation Q6H PRN 11/07/23 11/07/23 (0.083 %) solution for nebulization shortness of breath or wheezing albuterol sulfate 90 mcg/actuation 1 puff inhalation Q4H PRN 11/07/23 11/07/23 aerosol inhaler shortness of breath or wheezing amlodipine 2.5 mg tablet 2.5 mg PO QDAY 11/07/23 11/07/23 aspirin 81 mg tablet,delayed 81 mg PO DAILY 11/07/23 11/07/23 release (Adult Aspirin Regimen) atorvastatin 40 mg tablet 40 mg PO QDAY 11/07/23 11/07/23 cholecalciferol (vitamin D3) 50 50 mcg PO DAILY 11/07/23 11/07/23 mcg (2,000 unit) tablet (D3 DOTS) clonazepam 1 mg tablet 1 mg PO TID PRN anxiety 11/07/23 11/07/23 docusate sodium 100 mg capsule 200 mg PO BID 11/07/23 11/07/23 (Stool Softener) duloxetine 60 mg capsule,delayed 60 mg PO BID 11/07/23 11/07/23 release finasteride 5 mg tablet 5 mg PO QDAY 11/07/23 11/07/23 fluticasone fur. 100 mcg-umeclid 1 inh inhalation DAILY 11/07/23 11/07/23 62.5 mcg-vilant 25 mcg inhalat.powder (Trelegy Ellipta) gabapentin 300 mg capsule 600 mg PO Q8H 11/07/23 11/07/23 hydrocodone 5 mg-acetaminophen 325 2 tab PO Q6H PRN pain 11/07/23 11/07/23 mg tablet meloxicam 15 mg tablet 15 mg PO QDAY 11/07/23 11/07/23 metoprolol succinate 25 mg 25 mg PO QAM 11/07/23 11/07/23 tablet,extended release 24 hr nitroglycerin 0.4 mg sublingual 0.4 mg sublingual Q5M PRN chest 11/07/23 11/07/23 tablet pain sennosides 8.6 mg tablet (Senna 17.2 mg PO BID 11/07/23 11/07/23 Laxative) tamsulosin 0.4 mg capsule 0.8 mg PO .QHS 11/07/23 11/07/23 triamterene 37.5 1 tab PO QAM 11/07/23 11/07/23 mg-hydrochlorothiazide 25 mg tablet diazepam 5 mg tablet 5 mg PO Q8H PRN cramping 11/11/23 11/11/23 Previous Rx's ?Medication ?Instructions ?Recorded amoxicillin 875 mg-potassium 1 tab PO Q12H 14 days #28 tabs 11/11/23 clavulanate 125 mg tablet doxycycline monohydrate 100 mg 100 mg PO BID 14 days #28 caps 11/11/23 capsule furosemide 40 mg tablet 40 mg PO DAILY #30 tabs 11/11/23 prednisone 10 mg tablets in a dose 10 mg PO DAILY #39 ea 11/11/23 pack Allergies Allergy/AdvReac Type Severity Reaction Status Date / Time No Known Drug Allergies Allergy Verified 01/08/24 00:39 Opioid HPI Opioid Management Most Recent Opioid Data: 2 Last Pain Scale 10 01/07/24 21:19 Last ED Pain Assessment 01/07/24 21:19 Review of Systems 2 ROS0 Status of ROS 10 or more systems reviewed and unremark able except as noted in history and below [facility] Medical History (Updated 01/08/24 @ 00:44 by Jose Fortune MD) Malnutrition ?E46 - Unspecified protein-calorie malnutrition (ICD-10) Acute on chronic diastolic (congestive) heart failure ?I50.33 - Acute on chronic diastolic (congestive) heart failure (ICD-10) Acute respiratory failure with hypoxia ?J96.01 - Acute respiratory failure with hypoxia (ICD-10) CAD (coronary artery disease) ?I25.10 - Atherosclerotic heart disease of [place] coronary artery without angina pectoris (ICD-10) Hypertension ?I10 - Essential (primary) hypertension (ICD-10) Lung cancer ?C34.90 - Malignant neoplasm of unspecified part of unspecified bronchus or lung (ICD-10) Bilateral pneumonia ?J18.9 - Pneumonia, unspecified organism (ICD-10) Depression with anxiety ?F41.8 - Other specified anxiety disorders (ICD-10) BPH (benign prostatic hyperplasia) ?N40.0 - Benign prostatic hyperplasia without lower urinary tract symptoms (ICD-10) Past heart attack ?I25.2 - Old myocardial infarction (ICD-10) Surgical History (Updated 11/07/23 @ 16:06 by Kristan Florez RN) History of appendectomy ?Z90.49 - Acquired absence of other specified parts of digestive tract (ICD- 10) H/O pneumonectomy ?Z98.890 - Other specified postprocedural states (ICD-10) ?Z90.2 - Acquired absence of lung [part of] (ICD-10) Family History (Updated 11/07/23 @ 15:13 by Kristan Florez RN) Father Family history of hypertension Social History (Updated 11/07/23 @ 15:14 by Kristan Florez, ILENE) Within the past year, how often did you have a drink containing alcohol: never Score interpretation: A score less than 4 is consistent with normal alcohol consumption. Smoking status: Former smoker Non-prescribed substance use: denies use Highest level of school completed/degree received: high school graduate Exam Constitutional Vital Signs, click to edit/add: Last Vital Signs Temp 98.0 F 01/07/24 18:35 Pulse 61 01/07/24 22:02 Resp 16 01/07/24 22:02 BP 153/75 H 01/07/24 18:35 Pulse Ox 98 01/07/24 22:02 O2 Del Method Room Air 01/07/24 22:02 General appearance: in distress (mild distress when he sits up from supine position) HENMT Common normals: normocephalic and head/scalp atraumatic Eye Common normals: PERRL and EOMs intact bilaterally Chest Common normals: inspection of chest normal Respiratory Common normals: normal respiratory effort, no retractions, no use of accessory muscles and clear to auscultation bilaterally Cardio Common normals: regular rate, regular rhythm, S1 normal heart sound and S2 normal heart sound GI Common normals: Normal to inspection, nondistended, normoactive bowel sounds present, soft to palpation and non-tender Back & Pelvis Back image (male): 2 1. tenderness. no bruising. vertebral spine nontender Extremity Common normals: normal to inspection and full ROM Neuro Common normals: oriented x3, CN's II-XII intact bilaterally, moves all extremities and no focal motor deficits Psych Appearance: grossly normal Course Vital Signs Vital signs: Vital Signs Temperature 98.0 F 01/07/24 18:35 Pulse Rate 64 01/07/24 18:35 Respiratory Rate 18 01/07/24 18:35 Blood Pressure 153/75 H 01/07/24 18:35 Pulse Oximetry 98 01/07/24 18:35 Oxygen Delivery Method Room Air 01/07/24 18:35 Temperature 98.0 F 01/07/24 18:35 Pulse Rate 61 01/07/24 22:02 Respiratory Rate 16 01/07/24 22:02 Blood Pressure 153/75 H 01/07/24 18:35 Pulse Oximetry 98 01/07/24 22:02 Oxygen Delivery Method Room Air 01/07/24 22:02 MDM - Back Pain/Injury MDM Narrative Medical decision making narrative: patient fell yesterday striking his left pos. rib cage . Vertebral spine nontender. CT without evidence of fracture. patient informed of working diagnosis of bruised ribs and discharged home with Norflex and [place]. Advised to follow up with his doctor this week for recheck Lab Data Labs: Lab Results 01/07/24 01/08/24 Range/Units 21:52 00:01 WBC 9.7 (4.0-11.0) 10^3/uL RBC 3.09 L (4.70-6.10) 10^6/uL Hgb 11.0 L (14.0-18.0) g/dL Hct 33.0 L (42.0-54.0) % MCV 106.8 H (80.0-94.0) fL MCH 35.6 H (25.9-34.0) pg MCHC 33.3 (29.9-35.2) g/dL RDW 15.7 H (11.0-15.0) % Plt Count 287 (150-450) 10^3/uL MPV 9.8 (9.5-13.5) fL Neut % (Auto) 71.6 (43.0-75.0) % Lymph % (Auto) 16.9 L (20.5-60.0) % [place] % (Auto) 8.5 (1.7-12.0) % Eos % (Auto) 2.3 (0.9-7.0) % Baso % (Auto) 0.4 (0.2-2.0) % Neut # (Auto) 7.0 H (1.4-6.5) 10^3/uL Lymph # (Auto) 1.6 (1.2-3.8) 10^3/uL [place] # (Auto) 0.8 (0.3-0.8) 10^3/uL Eos # (Auto) 0.2 (0.0-0.7) 10^3/uL Baso # (Auto) 0.0 (0.0-0.1) 10^3/uL Abs Immat Gran (auto) 0.03 (0.00-0.03) 10^3/uL Imm/Tot Granulo (auto) 0.3 (0.0-0.5) % Sodium 144 (136-145) mmol/L Potassium 3.8 (3.5-5.1) mmol/L Chloride 107 (98-107) mmol/L Carbon Dioxide 28.0 (21.0-32.0) mmol/L Anion Gap 12.8 BUN 26.0 H (7.0-18.0) mg/dL Creatinine 0.96 (0.70-1.30) mg/dL Est GFR ( Amer) >60 (>=60) Est GFR (Non-Af Amer) >60 (>=60) BUN/Creatinine Ratio 27.1 Glucose 139 H (74-106) mg/dL Lactate 1.4 (0.4-2.0) mmol/L Calcium 9.2 (8.5-10.1) mg/dL Total Bilirubin 0.5 (0.2-1.0) mg/dL AST 22 (15-37) U/L ALT 31 (16-63) U/L Alkaline Phosphatase 63 (46-116) U/L Troponin I High Sens 13.0 (4.0-76.1) pg/mL Total Protein 8.0 (6.4-8.2) g/dL Albumin 3.7 (3.4-5.0) g/dL Globulin 4.3 g/dL Albumin/Globulin Ratio 0.9 Urine Color Lt. yellow (YELLOW) Urine Clarity Clear (CLEAR) Urine pH 6.5 (5.0-9.0) Ur Specific [place] <=1.005 A (1.005-1.025) Urine Protein Negative (NEG/TRACE) mg/dL Urine Glucose (UA) Negative (NEGATIVE) mg/dL Urine Ketones Negative (NEGATIVE) mg/dL Urine Occult Blood Negative (NEGATIVE) Urine Nitrite Negative (NEGATIVE) Urine Bilirubin Negative (NEGATIVE) Urine Urobilinogen 0.2 (0.2-1.0) EU/dL Ur Leukocyte Esterase Negative (NEGATIVE) Imaging Data Chest x-ray: Radiologist's impression: ITS Impressions Chest CT 01/07/24 21:40 IMPRESSION: 1. Satisfactory right upper chest wall port and line position. 2. Changes of prior right upper lobectomy with similar soft tissue changes around right hilar and suprahilar structures without discrete recurrent mass or adenopathy. Correlate with PET/CT as clinically indicated. 3. Chronic lung changes from prior surgery and likely radiation therapy with scarring and stranding right upper lobe and pleural thickening. There are some chronic subpleural blebs and both lungs upper and lower lobes with some chronic interstitial changes particularly right lower lobe. 4. Subtle reticular interstitial changes at the base of the lingula and left lower lobe. Probably chronic. Correlate for any signs of atypical infection. 5. No acute fracture or other acute osseous pathology. Old right rib fractures. No lytic or blastic lesions. Electronically authenticated by: RAUL HAGAN Date: 01/08/2024 00:12 Abdomen/Pelvis CT 01/07/24 21:41 IMPRESSION: 1. Moderate diffuse colonic stool burden. Correlate for constipation or fecal impaction. 2. No acute or other significant abdominal or pelvic pathology. 3. Chronic findings as discussed above. Electronically authenticated by: RAUL HAGAN Date: 01/08/2024 00:17 Discharge Plan Discharge Stand Alone Forms: Portal Instructions Chief Complaint: Back Pain/Injury Clinical Impression: Chest wall contusion Patient Disposition: Home, Self-Care Prescriptions / Home Meds: No Action albuterol sulfate 2.5 mg /3 mL (0.083 %) solution for nebulization 2.5 mg inhalation Q6H PRN (Reason: shortness of breath or wheezing) albuterol sulfate 90 mcg/actuation HFA aerosol inhaler 1 puff INHALATION Q4H PRN (Reason: shortness of breath or wheezing) clonazepam 1 mg tablet 1 mg PO TID PRN (Reason: anxiety) duloxetine 60 mg capsule,delayed release(DR/EC) 60 mg PO BID Trelegy Ellipta 100-62.5-25 mcg blister with device 1 inh INHALATION DAILY hydrocodone-acetaminophen 5-325 mg tablet 2 tab PO Q6H PRN (Reason: pain) amlodipine 2.5 mg tablet 2.5 mg PO QDAY atorvastatin 40 mg tablet 40 mg PO QDAY metoprolol succinate 25 mg tablet extended release 24 hr 25 mg PO QAM tamsulosin 0.4 mg capsule 0.8 mg PO .QHS docusate sodium [Stool Softener] 100 mg capsule 200 mg PO BID finasteride 5 mg tablet 5 mg PO QDAY gabapentin 300 mg capsule 600 mg PO Q8H meloxicam 15 mg tablet 15 mg PO QDAY nitroglycerin 0.4 mg tablet, sublingual 0.4 mg sublingual Q5M PRN (Reason: chest pain) sennosides [Senna Laxative] 8.6 mg tablet 17.2 mg PO BID triamterene-hydrochlorothiazid 37.5-25 mg tablet 1 tab PO QAM aspirin [Adult Aspirin Regimen] 81 mg tablet,delayed release (DR/EC) 81 mg PO DAILY cholecalciferol (vitamin D3) [D3 DOTS] 50 mcg (2,000 unit) tablet 50 mcg PO DAILY diazepam 5 mg tablet 5 mg PO Q8H PRN (Reason: cramping) furosemide 40 mg tablet 40 mg PO DAILY Qty: 30 0RF prednisone 10 mg tablets,dose pack 10 mg PO DAILY Qty: 39 0RF Rx Instructions: 6 PO daily x 3 days, then 4 PO daily x 3 days, then 2 PO daily x 3 days, then 1 PO daily x 3 days amoxicillin-pot clavulanate 875-125 mg tablet 1 tab PO Q12H 14 Days Qty: 28 0RF doxycycline monohydrate 100 mg capsule 100 mg PO BID 14 Days Qty: 28 0RF Print Language: Hungarian Instructions: Rib Contusion (ED) Referrals: PRERNA VALENTINO [Primary Care Provider] - 1 week
--- NOTE | 2024-01-07 21:40 | CT_ITS ---
The [address] [address] Patient Name: RAGHAVENDRA HEARD MRN: [id number] date: 1945 Sex: M Assigned Patient Location: ER Current Patient Location: ER Accession/Order Number: [id number] Exam Date: 01/07/2024 22:50 Report Date: 01/08/2024 00:12 At the request of: RADHA MAS Procedure: CT chest w con EXAM: CT chest w con HISTORY: trauma left posterior ribs COMPARISON: CT abdomen and pelvis with contrast same day, 01/07/2024 dictated separately; CTA chest 05/05/2019. TECHNIQUE: Thin section axial CT images were obtained from the thoracic inlet to the upper abdomen. This CT exam was performed using one or more of the following dose reduction techniques: Automated exposure control, adjustment of the mA and/or kV according to patient size, or use of iterative reconstruction technique. Thin section coronal and sagittal images were reconstructed from the axial data set. All images were reviewed and interpreted. FINDINGS: Right upper chest wall port with IJ central line tip of central line extends to the cavoatrial junction. Redemonstration of a partial right upper lobectomy. Surgical clips at right suprahilar region distal right paratracheal area unchanged from 05/05/2019. Remaining some mild soft tissue prominence but similar to prior. Linear parenchymal stranding around right hilar and suprahilar structures extending towards right upper lobe some chronic right pleural thickening and chronic pleural scarring at right upper lobe. There are scattered bilateral paraseptal blebs present dependent upper lobes and dependent bilateral lower lobes. There is some chronic fibrotic changes at lung bases, right more than left with some chronic pleural thickening mostly on the right. Subtle interstitial reticular changes base of lingula and left lower lobe, chronicity uncertain. No discrete lung mass or nodule bilaterally. No pneumothorax or pleural effusion. 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 Cardiac chambers are mildly enlarged particularly right atrium and to lesser degree ventricle. Scattered moderate coronary artery calcific disease. Scattered calcifications throughout wall of normal caliber thoracic aorta. No dissection. Central pulmonary artery and proximal branches enhance satisfactorily. No obvious pulmonary embolus. No mediastinal or hilar lymphadenopathy. Normal GE junction. Old ununited right eighth rib fracture. There are several other old healed right rib fractures including anterior lateral right seventh and eighth ribs. No acute right or left rib fractures. Imaged extremities and sternum and thoracic spine structures are maintained. No fractures. No lytic or blastic bone lesions. Normal height and alignment of thoracic vertebrae. CT/CT chest w con IMPRESSION: 1. Satisfactory right upper chest wall port and line position. 2. Changes of prior right upper lobectomy with similar soft tissue changes around right hilar and suprahilar structures without discrete recurrent mass or adenopathy. Correlate with PET/CT as clinically indicated. 3. Chronic lung changes from prior surgery and likely radiation therapy with scarring and stranding right upper lobe and pleural thickening. There are some chronic subpleural blebs and both lungs upper and lower lobes with some chronic interstitial changes particularly right lower lobe. 4. Subtle reticular interstitial changes at the base of the lingula and left lower lobe. Probably chronic. Correlate for any signs of atypical infection. 5. No acute fracture or other acute osseous pathology. Old right rib fractures. No lytic or blastic lesions. Electronically authenticated by: RAUL HAGAN Date: 01/08/2024 00:12
--- NOTE | 2024-01-07 21:41 | CT_ITS ---
The [address] [address] Patient Name: RAGHAVENDRA HEARD MRN: [id number] date: 1945 Sex: M Assigned Patient Location: ER Current Patient Location: ER Accession/Order Number: [id number] Exam Date: 01/07/2024 22:50 Report Date: 01/08/2024 00:17 At the request of: RADHA MAS Procedure: CT abdomen pelvis w con CT OF THE ABDOMEN AND PELVIS WITH CONTRAST: 01/07/2024 10:50 PM EDT CLINICAL HISTORY: Abdominal pain. COMPARISONS: CT chest obtained the same day dictated separately. TECHNIQUE: Thin section axial CT images were obtained from the lung bases to the pubis symphysis. This CT exam was performed using one or more of the following dose reduction techniques: Automated exposure control, adjustment of the mA and/or kV according to patient size, or use of iterative reconstruction technique. Thin section coronal and sagittal images were reconstructed from the axial data set. All images were reviewed and interpreted. CONTRAST: Intravenous contrast was administered. Type and amount is documented at the local institution. FINDINGS: LUNG BASES: CT chest obtained the same day dictated separately. Please see this report. There is some chronic lung changes both lower lobes with subpleural bleb formation and chronic interstitial changes. There may be component of acute on chronic interstitial disease/infiltrate at lung bases . LIVER: Normal. GALLBLADDER: Normal. BILIARY TREE: No ductal dilatation. PANCREAS: Normal. SPLEEN: Normal. ADRENALS: Normal. KIDNEYS: Normal, without urolithiasis or hydronephrosis. URINARY BLADDER: Grossly unremarkable. PELVIC STRUCTURES: Unremarkable. BOWEL: No evidence of obstruction, gross mass, or inflammatory change. There is no significant diverticulosis. There is no evidence of diverticulitis. Moderate diffuse colonic stool burden. APPENDIX: Surgically absent. LYMPH NODES: No pathologically enlarged lymph nodes identified. PERITONEUM: No intraperitoneal free air. No free intraperitoneal fluid. MESENTERY: Unremarkable. RETROPERITONEUM: The retroperitoneum is unremarkable. AORTA: Extensive atherosclerotic calcific plaque throughout wall of aorta and iliac arteries. Maximum diameter of infrarenal aorta 2.3 cm. No aneurysm or dissection. IVC: Patent along the hepatic veins. BODY WALL: No body wall mass. OSSEOUS STRUCTURES: No acute fracture. No acute joint findings. No lytic or blastic bone lesion. Old bilateral L5 pars fractures with resultant grade 2 anterolisthesis of L5 on S1 severe degenerative disc disease at L5-S1. CT/CT abdomen pelvis w con IMPRESSION: 1. Moderate diffuse colonic stool burden. Correlate for constipation or fecal impaction. 2. No acute or other significant abdominal or pelvic pathology. 3. Chronic findings as discussed above. Electronically authenticated by: RAUL HAGAN Date: 01/08/2024 00:17
[2024-01-07] MEDS: IPRATROPIUM/ALBUTEROL SULFATE 3 ML AMPUL.NEB IH (22:01)
[2024-01-07 22:02] VITALS: PULSE 61; O2SAT 98
[2024-01-07 22:03] LABS: Basophils Percent Auto 0.4 % (0.2-2.0); Eosinophils Absolute Auto 0.2 10^3/uL (0.0-0.7); Eosinophils Percent Auto 2.3 % (0.9-7.0); Immature Granulocytes Abs Auto 0.03 10^3/uL (0.00-0.03); Immature Granulocytes Pct Auto 0.3 % (0.0-0.5); Lymphocytes Absolute Auto 1.6 10^3/uL (1.2-3.8); Lymphocytes Percent Auto 16.9 % (20.5-60.0); Mean Corpuscular HGB Conc 33.3 g/dL (29.9-35.2); Mean Corpuscular Hemoglobin 35.6 pg (25.9-34.0); Mean Corpuscular Volume 106.8 fL (80.0-94.0); Mean Platelet Volume 9.8 fL (9.5-13.5); Monocytes Absolute Auto 0.8 10^3/uL (0.3-0.8); Monocytes Percent Auto 8.5 % (1.7-12.0); Neutrophils Percent Auto 71.6 % (43.0-75.0); Platelet Count 287 10^3/uL (150-450); Red Blood Count 3.09 10^6/uL (4.70-6.10); Red Cell Distribution Width 15.7 % (11.0-15.0); White Blood Count 9.7 10^3/uL (4.0-11.0)
[2024-01-07] MEDS: METHYLPREDNISOLONE SOD SUCC PF 125 MG/2 ML VIAL IVP (22:22)
[2024-01-07] MEDS: 0.9 % SODIUM CHLORIDE 1,000 ML 999 ML IV (22:22)
[2024-01-07 22:23] LABS: Lactate/Lactic Acid 1.4 mmol/L (0.4-2.0)
[2024-01-07 22:30] LABS: Alanine Aminotransferase 31 U/L (16-63); Albumin Globulin Ratio 0.9; Albumin Level 3.7 g/dL (3.4-5.0); Alkaline Phosphatase 63 U/L (46-116); Anion Gap 12.8; Aspartate Amino Transferase 22 U/L (15-37); BUN Creatinine Ratio 27.1; Bilirubin Total 0.5 mg/dL (0.2-1.0); Calcium 9.2 mg/dL (8.5-10.1); Chloride 107 mmol/L (98-107); Estimated GFR (African America >60 (>=60); Estimated GFR (Non-African Ame >60 (>=60); Globulin 4.3 g/dL; Glucose 139 mg/dL (74-106); Potassium 3.8 mmol/L (3.5-5.1); Sodium 144 mmol/L (136-145)
[2024-01-08 00:30] LABS: Bilirubin Urine NEGATIVE (NEGATIVE); Blood Urine NEGATIVE (NEGATIVE); Clarity Urine CLEAR (CLEAR); Color Urine LT. YELLOW (YELLOW); Glucose Urine UA NEGATIVE (NEGATIVE); Ketones Urine NEGATIVE (NEGATIVE); Leukocyte Esterase Urine NEGATIVE (NEGATIVE); Nitrite Urine NEGATIVE (NEGATIVE); Protein Urine NEGATIVE (NEG/TRACE); Specific Gravity Urine <=1.005 (1.005-1.025); Urobilinogen Urine 0.2 EU/dL (0.2-1.0); pH Urine 6.5 (5.0-9.0)
[2024-01-08 00:31] LABS: Urine Microscopic Indicated NO
[2024-01-08] MEDS: HYDROCODONE/ACET 5-325 MG TABLET 4 TAB PO (00:52)
[2024-01-08] MEDS: ORPHENADRINE CITRATE 100 MG TABLET.ER PO (00:52)
== END 2024-01-08 01:00 | disposition home or self-care (01) ==
PROVIDERS: Emergency Provider Internal Medicine; PCP Internal Medicine
DX: S20.212A Contusion of left front wall of thorax, initial encounter (principal); Z90.2 Acquired absence of lung [part of]; Z87.891 Personal history of nicotine dependence; W18.39XA Other fall on same level, initial encounter
CPT/HCPCS: 36415; 71260; 74177; 80053; 81003; 83605; 84484; 85025; 94640; 96374; 99284; J2919; Q9967

== ENCOUNTER 2024-04-27 08:14 | Inpatient (IN) | payer MEDICARE, OTHER, SELFPAY ==
[2024-04-27] VITALS (44 sets, daily range): BP systolic 113–193; BP diastolic 58–99; PULSE 79–180; RESP 36; TEMP 36.8–38.4; O2SAT 85–100; BMI 18.2; BMI 23.4
--- NOTE | 2024-04-27 08:15 | ECG_ITS ---
The [facility] Test Date: 2024-04-27 Pat Name: RAGHAVENDRA HEARD Department: Room: - Gender: Male [employer]: : 1945 Requested By: PRERNA VALENTINO Order Number: [id number] Reading MD: NICHOLAS PROCTOR Measurements Intervals [place] Rate: 107 P: 64 SD: 140 QRS: 18 QRSD: 98 T: 34 QT: 304 QTc: 367 Interpretive Statements 1120 Sinus tachycardia 1474 with frequent supraventricular premature complexes 2440 Incomplete right bundle branch block 9140 abnormal rhythm ECG Compared to ECG 11/21/2023 11:14:01 Incomplete right bundle-branch block now present Sinus bradycardia no longer present Electronically Signed On 04-28-2024 6:44:54 EDT by NICHOLAS PROCTOR
--- NOTE | 2024-04-27 08:16 | XR_ITS ---
The [address] [address] Patient Name: RAGHAVENDRA HEARD MRN: [id number] date: 1945 Sex: M Assigned Patient Location: ER Current Patient Location: ER Accession/Order Number: [id number] Exam Date: 04/27/2024 08:30 Report Date: 04/27/2024 09:07 At the request of: JASON TAVERAS Procedure: XR chest 1V EXAMINATION: XR chest 1V HISTORY: sob COMPARISON: XR chest 11/21/2023 FINDINGS: LUNGS: Large right upper hemithorax paramediastinal 8.4 cm dense opacity. Elevated right hemidiaphragm and confluent opacities within right lung base partially obscuring the diaphragm margin. Large area of dense infiltrates within left midlung appearing to emanate from the hilum. VASCULATURE: No increased pulmonary vasculature. PLEURA: No pneumothorax, effusion, or pleural thickening. CARDIAC: No cardiomegaly or cardiac silhouette abnormality. MEDIASTINUM: No visible mass or adenopathy. BONES: No fracture or visible bone lesion. OTHER: Right Port-A-Cath with distal tip overlying the right atrium. XR/XR chest 1V IMPRESSION: 1. History of right upper lobe lobectomy. 2. New marked bilateral infiltrates; pneumonia versus pulmonary edema. A right apical mass cannot be excluded. A left perihilar mass cannot be excluded. Electronically authenticated by: ARPIT DIEZ Date: 04/27/2024 09:07
--- OUTSIDE RECORDS SUMMARY | 2024-04-27 08:24 | XMS_ITS | CCD ---
Author Organization [facility] Care Team Providers Care Dock Grader Name Role Phone Prerna Grissom II Primary Care Provider [phone] Prerna Grissom II Primary Care Provider [phone] Yanira Elias Unavailable Unavailable Prerna Grissom II Primary Care Provider [phone] Ja Becker MD Unavailable Michael SYRUP MACHINE LABORER.Amber GREENE Unavailable Sol ODOM, Rhona Unavailable Prerna Grissom II Primary Care Provider Yanira Elias Unavailable Unavailable Ja Becker MD Unavailable Michael SYRUP MACHINE LABORER.Radha GREENEy Unavailable [phone] Sol ODOM, Rhona Unavailable PROVIDER, UNKNOWN Attending Unavailable PROVIDER, UNKNOWN Admitting Unavailable PRERNA GRISSOM II Primary Care Unavailable HENRI ANDERSON Attending Unavailable PRERNA GRISSOM II B Primary Care Unavailable HENRI ANDERSON Attending Unavailable HENRI ANDERSON Admitting Unavailable PRERNA GRISSOM II B Primary Care Unavailable NON STAFF Primary Care Provider UnavailNEO Lopez Emergency Provider [phone] [address] NICO MOSS Consulting Unavailable SEGUN, DR GREG Delarosa Admitting Unavailable PRERNA GRISSOM Primary Care Unavailable SEGUN, DR GRGE Delarosa Attending Unavailable CHARY, DR ARPIT Santos Consulting Unavailable SEGUN, DR GREG Delarosa Consulting Unavailable KATHERINE RODRIGES Consulting Unavailable JACOB OWNE Consulting Unavailable PRERNA GRISSOM Primary Care Unavailable PALLAVI HUNT Admitting Unavailable PALLAVI HUNT Attending Unavailable PALLAVI HUNT Consulting Unavailable Rodrigo RD, Janeen Unavailable [phone] DELBERT Rodriguez Attending Provider [phone] JUAN RAMON Grissom Primary Care Provider [phone] Chelsy DELATORRE MD, Daniel B Primary Care Provider Sol RN, Rhona Unavailable [phone] Alberto Chappell Admitting Unavailable Alberto Chappell Attending Unavailable NON STAFF Primary Care Unavailable Prerna Grissom Primary Care Unavailable Amber Rodriguez Admitting Unavailable Amber Rodriguez Attending Unavailable Ja Becker Admitting Unavailable Ja Becker Attending Unavailable Prerna Grissom Primary Care Unavailable Chelsy DELATORRE MD, Daniel B Primary Care Provider Kobe Hernández Unavailable [phone] STUART WRIGHT Referring Unavailable PRERNA GRISSOM B Primary Care Unavailable ADRIA CAR Referring Unavailable PRERNA GRISSOM Primary Care Unavailable LEO TOLEDO Attending Unavailable JOVANY, LEO Attending Unavailable LEO TOLEDO Admitting Unavailable LEO TOLEDO Attending Unavailable LEO TOLEDO Attending Unavailable Kobe Hernández MD Unavailable STUART WRIGHT Attending Unavailable STUART WRIGHT Referring Unavailable PRERNA GRISSOM Primary Care Unavailable Prerna Grissom MD Primary Care Provider Sunday BINDING STITCHER, Lindsay Unavailable Prerna Grissom MD Unavailable Prerna Grissom MD Primary Care Provider [phone] STUART WRIGHT Attending Unavailable PRERNA GRISSOM Referring Unavailable PRERNA GRISSOM B Primary Care Unavailable STUART WRIGHT Attending Unavailable PRERNA GRISSOM Referring Unavailable PRERNA GRISSOM B Primary Care Unavailable STUART WRIGHT Attending Unavailable PRERNA GRISSOM B Referring Unavailable CHELSY PRERNA B Primary Care Unavailable GLENYS KURTZ Referring Unavailable PRERNA GRISSOM II Primary Care Unavailable PRERNA GRISSOM II Primary Care Unavailable JA BECKER Referring Unavailable PRERNA GRISSOM II Primary Care Unavailable JA BECKER Referring Unavailable LEXUS, LEXUS E Referring Unavailable LEXUS, LEXUS E Attending Unavailable GRISSOM II, PRERNA B Primary Care Unavailable LEXUS, LEXUS E Attending Unavailable GRISSOM II, PRERNA B Primary Care Unavailable GRISSOM II, PRERNA B Primary Care Unavailable JA BECKER Referring Unavailable GRISSOM II, PRERNA B Primary Care Unavailable JA BECKER Referring Unavailable GLENYS KURTZ Attending Unavailable GRISSOM II, PRERNA B Primary Care Unavailable JA BECKER Referring Unavailable JA BECKER Referring Unavailable GRISSOM II, PRERNA B Primary Care Unavailable GLENYS KURTZ Attending Unavailable JA BECKER Referring Unavailable GRISSOM II, PRERNA B Primary Care Unavailable GRISSOM II, PRERNA B Primary Care Unavailable AMBER RODRIGUEZ Referring Unavailable GRISSOM II, PRERNA B Primary Care Unavailable GRISSOM II, PRERNA B Primary Care Unavailable JA BECKER Referring Unavailable GRISSOM II, PRERNA B Primary Care Unavailable JA BECKER Referring Unavailable GRISSOM II, PRERNA B Primary Care Unavailable JA BECKER Referring Unavailable JA BECKER Attending Unavailable JA BECKER Referring Unavailable GRISSOM II, PRERNA B Primary Care Unavailable GRISSOM II, PRERNA B Primary Care Unavailable JA BECKER Attending Unavailable JA BECKER Referring Unavailable GRISSOM II, PRERNA B Primary Care Unavailable FLYNN HOPKINS Attending Unavailable GLENYS KURTZ Referring Unavailable GRISSOM II, PRERNA B Primary Care Unavailable JA BECKER Referring Unavailable GRISSOM II, PRERNA B Primary Care Unavailable GRISSOM II, PRERNA B Primary Care Unavailable JA BECKER Referring Unavailable JA BECKER Attending Unavailable GRISSOM II, PRERNA B Primary Care Unavailable JA BECKER Referring Unavailable JA BECKER Referring Unavailable GRISSOM II, PRERNA B Primary Care Unavailable JA BECKER Attending Unavailable JA BECKER Referring Unavailable GRISSOM II, PRERNA B Primary Care Unavailable KYLEE ANDRADE Attending Unavailable KYLEE ANDRADE Attending Unavailable EMBER DALTON Attending Unavailable Medications Current Medications Medication Drug Class(es) Dates Sig (Normalized) Sig (Original) acetaminophen 325 mg / HYDROcodone bitartrate 5 mg oral tablet (20 sources) Opioid Agonist Start: 03-25-2024 take 2 tablets by mouth every six hours as needed HYDROcodone-aceta minophen (NORCO) 5-325 mg per tablet Indications: Neoplasm related pain (acute) (chronic) Take 2 tablets by mouth every 6 hours as needed. 180 tablet 03/25/2024 Active Start: 12-23-2023 End: 03-19-2024 take 2 tablets by mouth every six hours as needed HYDROcodone-acetaminophen (NORCO) 5-325 mg per tablet Indications: Neoplasm related pain (acute) (chronic) Take 2 tablets by mouth every 6 hours as needed. 180 tablet 03/25/2024 Active Start: 11-18-2023 End: 12-21-2023 take 2 tablets by mouth every six hours as needed HYDROcodone-acetaminophen (NORCO) 5-325 mg per tablet Indications: Neoplasm related pain (acute) (chronic) Take 2 tablets by mouth every 6 hours as needed for up to 30 days. 180 tablet 0 11/18/2023 12/21/2023 Discontinued Start: 07-19-2023 End: 11-16-2023 take 2 tablets by mouth every six hours as needed HYDROcodone-acetaminophen (NORCO) 5-325 mg per tablet Indications: Neoplasm related pain (acute) (chronic) Take 2 tablets by mouth every 6 hours as needed for up to 30 days. 180 tablet 07/19/2023 08/22/2023 Discontinued Start: 04-05-2023 End: 05-17-2023 take 2 tablets by mouth every six hours as needed HYDROcodone-acetaminophen (NORCO) 5-325 mg per tablet Indications: Neoplasm related pain (acute) (chronic) Take 2 tablets by mouth every 6 hours as needed. 180 tablet 04/05/2023 05/17/2023 Discontinued Start: 08-22-2021 End: 05-09-2022 take 1 tablet by mouth every four hours as needed HYDROcodone-acetaminophen (NORCO) 5-325 mg per tablet Indications: Neoplasm related pain (acute) (chronic) Take 1 tablet by mouth every 4 hours as needed for up to 30 days. 180 tablet 08/22/2021 10/03/2021 Discontinued Start: 06-06-2021 End: 03-08-2023 take 2 tablets by mouth every six hours as needed HYDROcodone-acetaminophen (NORCO) 5-325 mg per tablet Indications: Neoplasm related pain (acute) (chronic) Take 2 tablets by mouth every 6 hours as needed. 240 tablet 06/06/2021 11/07/2021 Discontinued Comment on above: Take 1 tablet by silvia th every 4 hours as needed for up to 30 days. Take 2 tablets by mo [facility] every 6 hours as needed. Take 2 tablets by mo ut every 6 hours as needed for up to 30 days. albuterol 0.83 mg/ml inhalation solution (20 sources) beta2-Adrenergic Agonist Start: 02-13-2023 albuterol (2.5 MG/3ML) 0.083% nebulizer solution Take 2.5 mg by nebulization every 4 (four) hours if needed. 02/13/2023 Active Start: 02-13-2023 albuterol (PRO VENTIL) 2.5 mg /3 mL (0.083 %) nebulizer solution 2.5 mg every 4 hours as needed. 02/13/2023 Active Start: 01-19-2023 albuterol (PRO VENTIL) 5 mg/mL nebulizer solution as directed Inhalation 01/19/2023 Active albuterol HFA 90 mcg/act inhaler Inhale every 4 (four) hours if needed. Active Comment on above: 2.5 mg every 4 hours as needed. amLODIPine 2.5 mg oral tablet (9 sources) Dihydropyridine Calcium Channel Fide Start: 3 End: take 1 tablet by mouth in the morning amLODIPine (Norvasc) 2.5 MG tablet Take 2.5 mg by mouth in the morning. 05/04/2023 05/03/2024 Active aspirin 81 mg delayed release oral tablet (20 sources) Platelet Aggregation Inhibitor, Nonsteroidal Anti-inflammatory Drug take 1 tablet by mouth in the morning aspirin 81 MG EC tablet Take 81 mg by mouth in the morning. Active take 81 mg by mouth once daily A spirin 81 mg CpDR Take 81 mg by mouth once daily. Active Comment on above: Take 81 mg by mouth once daily. 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 baclofen 10 mg oral tablet (20 sources) gamma-Aminobutyric Acid-ergic Agonist Start: 08-27-2023 take 1 tablet by mouth three times daily as needed for muscle spasms baclofen (Lioresal) 10 MG tablet Indications: Cramps of lower extremity TAKE 1 TABLET (10 MG) BY MOUTH 3 (THREE) TIMES A DAY NEEDED FOR MUSCLE SPASMS 270 tablet 1 08/27/2023 Active Start: 07-08-2019 End: 05-03-2023 take 1 tablet by mouth three times daily as needed for muscle spasms baclofen (Lioresal) 10 MG tablet Indications: Cramps of lower extremity TAKE 1 TABLET (10 MG) BY MOUTH 3 (THREE) TIMES A DAY NEEDED FOR MUSCLE SPASMS 270 tablet 1 08/27/2023 Active Start: 07-08-2019 take 1 tablet by silvia twice daily baclofen (LIORESAL) 10 mg tablet Take 10 mg by mouth twice daily. 0 07/08/2019 Active Comment on above: Take 10 mg by mouth twice daily. Take 10 mg by mouth three times daily. calcium carbonate 1500 mg oral tablet (20 sources) End: 07-04-2022 calcium carbonate (OS-TANYA) 600 mg (1,500 mg) tablet Take 1 tablet (600 mg total) by mouth. Active Comment on above: Take 600 mg by mouth . cholecalciferol 0.01 mg oral capsule (9 sources) Vitamin D cholecalciferol (Vitamin D-3) 10 MCG (400 UNIT) capsule 1 capsule in the morning. Active cholecalciferol, vitamin D3, 50,000 units tablet Take by mouth daily. Active clonazePAM 1 mg oral tablet (20 sources) Benzodiazepine Start: 07-07-2021 End: 06-07-2024 take 1 tablet by mouth three times daily as needed clonazePAM (KLONOPIN) 1 mg tablet Indications: Neoplasm related pain (acute) (chronic) , Anxiety TAKE 1 TABLET BY MOUTH THREE TIMES A DAY NEEDED FOR UP TO 30 DAYS 90 tablet 04/14/2024 05/15/2024 Active Start: 02-27-2019 take 1 tablet by islvia th four times daily as needed clonazePAM (KlonoPIN) 1 mg tablet TAKE 1 TABLET BY MOUTH 4 TIMES A DAY NEEDED 0 02/27/2019 Active Comment on above: TAKE 1 TABLET BY SILVIA TH 3 TIMES DAILY NEEDED FOR UP TO 30 DAYS. Take 1 tablet by silvia th three times daily as needed for up to 30 days. 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 473 mL 0 05/17/2023 06/16/2023 Active Start: 10-18-2022 End: 01-03-2023 take 10 mL by mouth every four hours as needed codeine-guaiFENesin (ROBITUSSIN AC) 10-100 mg/5 mL syrup Take 10 mL by mouth every 4 hours as needed. 10/18/2022 12/04/2022 Discontinued Start: 08-09-2022 End: 09-08-2022 take 5 mL by mouth every six hours as needed for cough and cough codeine-guaiFENesin (ROBITUSSIN AC) 10-100 mg/5 mL syrup Indications: Acute cough Take 5 mL by mouth four times daily as needed for cough 173 mL 0 08/09/2022 09/08/2022 Active Comment on above: Take 5 mL by mouth f our times daily as needed for cough Take 10 mL by mouth every 4 hours as needed. Take 10 mL by mouth every 4 hours as needed for up to 30 days. diazePAM 5 mg oral tablet (20 sources) Benzodiazepine Start: 12-23-2023 End: 04-21-2024 take 1 tablet by mouth every eight hours as needed diazePAM (VALIUM) 5 mg tablet Indications: Multiple myeloma not having achieved remission (HCC) Take 1 tablet by mouth every 8 hours as needed for up to 120 days. 90 tablet 3 12/23/2023 04/21/2024 Active Start: 08-06-2023 End: 12-21-2023 take 1 tablet by mouth every eight hours as needed diazePAM (VALIUM) 5 mg tablet Indications: Multiple myeloma not having achieved remission (HCC) Take 1 tablet by mouth every 8 hours as needed for up to 120 days. 90 tablet 3 08/06/2023 12/21/2023 Discontinued Start: 11-23-2022 End: 12-23-2022 take 1 tablet by mouth every eight hours as needed diazePAM (VALIUM) 5 mg tablet Indications: Multiple myeloma not having achieved remission (HCC) Take 1 tablet by mouth every 8 hours as needed for up to 30 days. 90 tablet 3 11/23/2022 12/23/2022 Active Start: 08-22-2022 End: 09-21-2022 take 1 tablet by mouth every eight hours as needed diazePAM (VALIUM) 5 mg tablet Indications: Multiple myeloma not having achieved remission (HCC) Take 1 tablet by mouth every 8 hours as needed for up to 30 days. 90 tablet 3 08/22/2022 09/21/2022 Active Start: 06-16-2022 End: 08-17-2022 take 1 tablet by mouth every eight hours as needed diazePAM (VALIUM) 5 mg tablet Indications: Multiple myeloma not having achieved remission (HCC) Take 1 tablet by mouth every 8 hours as needed for up to 30 days. 90 tablet 3 07/18/2022 08/17/2022 Active Start: 10-06-2021 End: 05-06-2022 take 1 tablet by mouth every eight hours as needed diazePAM (VALIUM) 5 mg tablet Indications: Multiple myeloma not having achieved remission (HCC) TAKE 1 TABLET BY MOUTH EVERY 8 HOURS NEEDED 90 tablet 03/07/2022 04/06/2022 Discontinued Comment on above: Take 1 tablet by silvia th every 8 hours as needed for up to 90 days. TAKE 1 TABLET BY SILVIA TH EVERY 8 HOURS NEEDED Take 1 tablet by silvia th every 8 hours as needed for up to 30 days. Take 1 tablet by silvia th every 8 hours as needed for up to 120 days. DOCOSAHEXANOIC ACID/EPA (FIS H OIL ORAL) (20 sources) DOCOSAHEXANOIC A CHANO/EPA (FISH OIL ORAL) Take by mouth. Active DOCOSAHEXANOIC A CHANO/EPA (FISH OIL ORAL) Take by mouth. 0 Active Comment on above: Take by mouth. docusate sodium 100 mg oral capsule (20 sources) Start: 9 End: 4 take 2 capsules by mouth twice daily docusate sodium (COLACE) 100 mg capsule Indications: Neoplasm related pain (acute) (chronic) Take 2 capsules by mouth two times a day. 240 capsule 5 02/29/2024 Active Comment on above: TAKE 2 CAPSULES BY M OUTH TWICE A DAY Take 2 capsules by m outh two times a day. docusate sodium 50 mg / sennosides, halfway 8.6 mg oral tablet (1 source) take 1 tablet by mouth in the morning sennosides-docusat e sodium (SENNA WITH DOCUSATE SODIUM) 8.6-50 mg Take 1 tablet by mouth in the morning. Active DULoxetine 60 mg delayed release oral capsule (20 sources) Serotonin and Norepinephrine Reuptake Inhibitor Start: 3 End: 5 take 1 capsule by mouth twice daily DULoxetine (CYMBALTA) 60 mg capsule Take 1 capsule by mouth two times a day. 60 capsule 11 03/24/2024 03/24/2025 Active Start: 09-05-2021 End: 04-24-2023 take 1 capsule by mouth twice daily DULoxetine (CYMBALTA) 60 mg capsule TAKE 1 CAPSULE BY MOUTH TWICE A DAY 180 capsule 09/05/2021 10/31/2021 Discontinued take 1 capsule by mo uth in the morning, then take 1 capsule by mouth at bedtime DULoxetine (CYMBALTA) 20 mg capsule Take 1 capsule (20 mg total) by mouth in the morning and 1 capsule (20 mg total) before bedtime. Active Comment on above: TAKE 1 CAPSULE BY MO UTH TWICE A DAY Take 1 capsule by mo uth twice daily. Take 1 capsule by mo uth two times a day. famciclovir 250 mg oral tablet (20 sources) Herpes Simplex Virus Nucleoside Analog DNA Polymerase Inhibitor Start: 01-04-20 End: 02-20-20 take 1 tablet by mouth in the morning famciclovir (Famvir) 250 MG tablet Take 250 mg by mouth in the morning and 250 mg before bedtime. 02/09/2023 Active Comment on above: TAKE 1 TABLET BY SILVIA TH TWICE A DAY finasteride 5 mg oral tablet (20 sources) 5-alpha Reductase Inhibitor Start: 07-21-19 take 1 tablet by mouth in the morning finasteride (Proscar) 5 MG tablet Take 5 mg by mouth in the morning. 07/21/2022 Active Fish Oils (8 sources) omega-3 (Fish Oi l) 1200 MG capsule 1 capsule in the morning. Active 30 actuat fluticasone furoate 0.1 mg/actuat / umeclidinium 0.0625 mg/actuat / vilanterol 0.025 mg/actuat dry powder inhaler (20 sources) Anticholinergic, Corticosteroid, beta2-Adrenergic Agonist Start: 06-26-20 take 1 puff(s) by inhalation once daily Trelegy Ellipta 100-62.5-25 MCG/ACT aerosol powder INHALE 1 PUFF ONCE DAILY FOR 30 DAYS 10/19/2023 Active take 1 puff(s) by in halation once daily lbuomqfijid-nuvoaplwu-ozjqioke (TRELEGY ELLIPTA) 100-62.5-25 mcg blister with device Inhale 1 puff once daily. Active Comment on above: INHALE 1 PUFF ONCE D AILY FOR 30 DAYS furosemide 40 mg oral tablet (20 sources) Loop Diuretic Start: 11-11-2023 furosemide (LASIX) 40 mg tablet 11/11/2023 Active gabapentin 300 mg oral capsule (20 sources) Anti-epileptic Agent Start: 09-20-2023 End: 06-15-2024 take 2 capsules by mouth three times daily gabapentin (NEURONTIN) 300 mg capsule Take 2 capsules by mouth three times a day for 90 days. 180 capsule 2 03/17/2024 06/15/2024 Active Start: 04-29-2021 End: 05-03-2023 take 2 capsules by mouth three times daily gabapentin (NEURONTIN) 300 mg capsule Take 2 capsules by mouth three times daily for 90 days. 180 capsule 2 07/07/2021 10/03/2021 Discontinued Start: 03-13-2019 gabapentin (Ne urontin) 300 MG capsule Take 300 mg by mouth in the morning and 300 mg at noon and 300 mg in the evening and 300 mg before bedtime. 08/27/2022 Active Comment on above: Take 2 capsules by m outh three times daily for 90 days. TAKE 2 CAPSULES BY M OUTH THREE TIMES DAILY FOR 90 DAYS Take 2 capsules by m outh three times daily for 30 days. Take 2 capsules by m outh three times a day for 90 days. hydroCHLOROthiazide 25 mg / triamterene 37.5 mg oral tablet (20 sources) Potassium-sparing Diuretic, Thiazide Diuretic Start: take 1 tablet by mouth once daily in the morning triamterene-hydroc hlorothiazide (Maxzide-25) 37.5-25 MG tablet Indications: Other specified symptoms and signs involving the circulatory and respiratory systems TAKE 1 TABLET BY MOUTH EVERY DAY IN THE MORNING 100 tablet 3 06/22/2023 Active Comment on above: TAKE 1 TABLET BY SILVIA TH EVERY DAY IN THE MORNING levoFLOXacin 500 mg oral tablet (11 sources) Quinolone Antimicrobial Start: End: take 1 tablet by mouth once daily levoFLOXacin (Levaquin) 500 MG tablet Indications: COPD exacerbation (CMS/HCC) Take 1 tablet (500 mg) by mouth Daily for 7 days 7 tablet 04/09/2024 04/16/2024 Active Start: 04-02-2023 End: 05-14-2023 take 1 tablet by mouth once daily levoFLOXacin (LEVAQUIN) 500 mg tablet Take 1 tablet by mouth once daily. 7 tablet 04/02/2023 05/14/2023 Discontinued Start: 02-19-2023 take 1 tablet by silvia th once daily levoFLOXacin (LEVAQUIN) 500 mg tablet Take 1 tablet by mouth once daily. 7 tablet 0 02/19/2023 Active Comment on above: Take 1 tablet by silvia th once daily. meloxicam 15 mg oral tablet (20 sources) Nonsteroidal Anti-inflammatory Drug Start: End: take 1 tablet by mouth in the morning meloxicam (Mobic) 15 MG tablet Take 15 mg by mouth in the morning. 09/11/2022 Active Comment on above: Take 1 tablet by silvia th once daily. TAKE 1 TABLET BY SILVIA TH EVERY DAY 24 hr metoprolol succinate 25 mg extended release oral tablet (20 sources) beta-Adrenergic Fide take 1 tablet by mouth every twenty-four hours in the morning metoprolol succinate XL (Toprol-XL) 25 MG 24 hr tablet Take 25 mg by mouth in the morning. Active take 1 tablet by mouth once kevyn y metoprolol succinate ER (TOPROL XL) 25 mg 24 hr tablet Take 25 mg by mouth once daily. Active Comment on above: Take 25 mg by mouth once daily. multivit with minerals/lutein (MULTIVITAMIN 50 PLUS ORAL) (1 source) take 1 tablet by mouth once daily multivit with minerals/lutein (MULTIVITAMIN 50 PLUS ORAL) multivitamin take 1 tablet every day Active subdapkzgqay-qqbl-gdv erals-folic acid (Centrum Silver, geriatric,) tablet (8 sources) take 1 tablet by mouth in the morning ygnguqphevdz-ewzj-xlkarm ls-folic acid (Centrum Silver, geriatric,) tablet Take 1 tablet by mouth in the morning. Active mv-mn/iron/folic acid/herb 190 (VITAMIN D3 COMPLETE ORAL) (20 sources) mv-mn/iron/folic acid/herb 190 (VITAMIN D3 COMPLETE ORAL) Take by mouth. Active mv-mn/iron/folic acid/herb 190 (VITAMIN D3 COMPLETE ORAL) Take by mouth. 0 Active Comment on above: Take by mouth. nitroglycerin 0.4 mg sublingual tablet (20 sources) Nitrate Vasodilator Start: 10-02-2016 End: 07-09-2023 nitroglycerin sublingual (NITROQUICK) 0.4 mg SL tablet Dissolve 1 tablet under the tongue every 5 minutes as needed. 25 tablet 07/09/2023 Active Start: 10-02-2016 nitroglycerin (NITROSTAT) 0.4 MG SL tablet nitroglycerin 0.4 mg sublingual tablet 10/02/2016 Active Comment on above: Dissolve 0.4 mg unde r the tongue every 5 minutes as needed. Dissolve 1 tablet un [place] the tongue every 5 minutes as needed. pamidronate disodium 30 mg injection (8 sources) Bisphosphonate pamidronate (Are lili) 30 MG injection Infuse into a venous catheter. Active predniSONE 10 mg oral tablet (20 sources) Start: 04-09-20 End: 04-20-20 take 4 tablets by mouth once daily, then take 3 tablets by mouth once daily, then take 2 tablets by mouth once daily, then take 1 tablet by mouth once daily predniSONE (Deltasone) 10 MG tablet Indications: COPD exacerbation (CMS/HCC) Take 4 tablets (40 mg) by mouth Daily for 3 days, THEN 3 tablets (30 mg) Daily for 3 days, THEN 2 tablets (20 mg) Daily for 3 days, THEN 1 tablet (10 mg) Daily for 3 days. 30 tablet 04/09/2024 04/20/2024 Active Start: 11-15-2022 End: 01-01-2023 take 2 tablets by mouth once daily predniSONE (DELTASONE) 20 mg tablet Take 2 tablets by mouth once daily. 60 tablet 1 11/15/2022 01/01/2023 Discontinued Start: 10-11-2022 End: 04-09-2024 take 1 tablet by mouth once daily, then take 4 tablets by mouth once daily, then take 2 tablets by mouth once daily, then take 1 tablet by mouth once daily predniSONE (DELTASONE) 10 mg tablet Take 1 tablet by mouth once daily. Take 4 daily x 5 days, then 2 daily x 5 days, then 1 daily or as directed. 100 tablet 04/02/2023 Active Start: 08-09-2022 End: 09-11-2022 take 1 tablet by mouth once daily predniSONE (DELTASONE) 20 mg tablet Take 1 tablet by mouth once daily. 5 tablet 0 08/09/2022 09/11/2022 Discontinued Comment on above: Take 1 tablet by silvia once daily. Take 2 tablets by mo [facility] once daily. Take 1 tablet by silvia once daily. Take 4 daily x 5 days, then 2 daily x 5 days, then 1 daily or as directed. pregabalin 75 mg oral capsule (20 sources) Start: 3 End: 4 pregabalin (Lyrica) 75 MG capsule Take 75 mg by mouth in the morning and 75 mg at noon and 75 mg in the evening. 05/03/2023 Active Comment on above: Take 1 capsule by mo ut three times a day for 90 days. Take 1 capsule by mo [facility] three times a day for 30 days. sennosides, halfway 8.6 mg oral tablet (20 sources) Start: 1 End: 4 take 2 tablets by mouth in the morning [facility] Senna 8.6 MG tablet Take 2 tablets by mouth in the morning and 2 tablets before bedtime. 07/09/2023 Active Comment on above: TAKE 2 TABLETS BY MO UT TWICE A DAY Take 2 tablets by mo uth twice daily. Take 2 tablets by mo uth two times a day. tamsulosin hydrochloride 0.4 mg oral capsule (20 sources) alpha-Adrenergic Fide Start: 3 take 2 capsules by mouth once daily tamsulosin (FLOMAX) 0.4 mg capsule Indications: Benign prostatic hyperplasia with urinary frequency TAKE 2 CAPSULES BY MOUTH EVERY DAY AT NIGHT 180 capsule 3 06/11/2023 Active Start: 07-09-2019 tamsulosin ER (FLOMAX) 0.4 mg cap 07/09/2019 Active take 1 capsule by mo uth every twenty-four hours in the morning tamsulosin (Flomax) 0.4 MG 24 hr capsule Take 0.8 mg by mouth in the morning. Active Zinc (20 sources) ZINC ORAL Take b y mouth. Active ZINC ORAL Take b y mouth. 0 Active Comment on above: Take by mouth. zinc gluconate 50 mg oral ta blet (8 sources) zinc gluconate 5 0 MG tablet Daily. Active Completed/Discontinued Medications Medication Drug Class(es) Dates Sig (Normalized) Sig (Original) iv contrast (will be provided with radiology test) (1 source) Start: 12-04-2022 End: 12-05-2022 inject 1 dose intravenously once iv contrast (will be provided with radiology test) MRI Brain Inject, intravenously, once for 1 dose.No IV access, insert saline lock prior to beginning of sedation, infusion, injection of imaging exam.Discontinue saline lock post exam. If Pt. has a central line or IVAD, may access for administration according to line specific nursing protocol.Once exam is complete flush line and de-access according to line specific nursing protocol in the MR contrast administration guidelines link 1 Each 0 12/04/2022 12/05/2022 Comment on above: MRI Brain Inject, in travenously, once for 1 dose.No IV access, insert saline lock prior to beginning of sedation, infusion, injection of imaging exam.Discontinue saline lock post exam. If Pt. has a central line or IVAD, may access for administration according to line specific nursing protocol.Once exam is complete flush line and de-access according to line specific nursing protocol in the MR contrast administration guidelines link melatonin 10 mg oral capsule (20 sources) Start: 07-08-2019 End: 07-04-2022 take 1 capsule by mouth once daily at bedtime melatonin 10 mg cap TAKE 1 CAPSULE BY MOUTH EVERYDAY AT BEDTIME 07/08/2019 07/04/2022 Discontinued Comment on above: TAKE 1 CAPSULE BY MO UT EVERYDAY AT BEDTIME NaCl 0.9% 1,000 mL (1 source) Start: 04-02-2023 End: 04-02-2023 NaCl 0.9% 1,000 mL naloxone hydrochloride 40 mg/ml nasal spray (20 sources) Opioid Antagonist Start: 10-02-2022 End: 10-02-2022 naloxone spry 1 [place] Start: 10-02-2022 naloxone 4 mg/ actuation nasal spray (NARCAN) Use 1 spray in one nostril as needed for overdose. May repeat every 2 to 3 min in alternating nostrils until medical assistance is available 2 Each 1 10/02/2022 Active Comment on above: Use 1 spray in one n ostril as needed for overdose. May repeat every 2 to 3 min in alternating nostrils until medical assistance is available Naproxen (20 sources) Nonsteroidal Anti-inflammatory Drug End: 07-04-2022 naproxen sodium (ALEVE ORAL) Take by mouth. 07/04/2022 Discontinued End: 07-04-2022 naproxen sodium (ALEVE ORAL) Take by mouth. 0 07/04/2022 Discontinued naproxen sodium (ALEVE ORAL) Take by mouth. 0 Active Comment on above: Take by mouth. ondansetron 8 mg oral tablet (20 sources) Serotonin-3 Receptor Antagonist Start: 3 End: take 1 tablet by mouth every eight hours as needed ondansetron (ZOFRAN) 8 mg tablet Take 1 tablet by mouth every 8 hours as needed for nausea/vomiting. 60 tablet 07/04/2022 2024 Discontinued Start: 05-03-2022 End: 06-05-2022 take 1 tablet by mouth every eight hours as needed ondansetron (ZOFRAN) 8 mg tablet Take 1 tablet by mouth every 8 hours as needed for nausea/vomiting. 90 tablet 1 05/03/2022 06/05/2022 Discontinued (Other) Comment on above: Take 1 tablet by silvia every 8 hours as needed for nausea/vomiting. 24 hr oxybutynin chloride 5 mg extended release oral tablet (20 sources) Cholinergic Muscarinic Antagonist Start: 07-01-2020 End: 05-09-2022 oxybutynin XL (DITROPAN XL) 5 mg 24 hr tablet 07/01/2020 05/09/2022 Discontinued (Discontinued by Patient) pamidronate 30 mg in NaCl 0.9% 250 mL (AREDIA) (3 sources) Start: 04-17-2024 End: 04-17-2024 30 mg, INTRAVENOUS, at 260 mL/hr, Administer over 1 Hours, ONCE, 1 dose, On Barbara 04/17/24 at 1100, APPROXIMATE TOTAL VOLUME mL - 24 HOUR EXP: 04/18/2024 1050 RT Hazardous Potential Reproductive Risk Drug: Use appropriate PPE. Start: 2024 End: 2024 pamidronate 30 mg in NaCl 0. 9% 250 mL (AREDIA) Start: 10-29-2023 End: 10-29-2023 pamidronate 30 mg in NaCl 0. 9% 250 mL (AREDIA) prochlorperazine 10 mg oral tablet (20 sources) Phenothiazine Start: 05-03-2022 End: 2024 take 1 tablet by mouth every six hours as needed prochlorperazine (COMPAZINE) 10 mg tablet Take 1 tablet by mouth every 6 hours as needed. 100 tablet 1 05/03/2022 07/04/2022 Discontinued Comment on above: Take 1 tablet by silvia every 6 hours as needed. 125 ml sodium chloride 9 mg/ml prefilled syringe (4 sources) Start: 04-17-2024 End: 04-17-2024 10-20 mL, INTRAVENOUS, DIRECTED, Starting on Barbara 04/17/24 at 1100, Until Barbara 04/17/24 at 1749, If patient has a heparin allergy: IVADS not in use should be accessed and flushed once every 4 to 6 weeks with 10 mL of 0.9% NaCl. Upon de-access of Rolle needle, when re-access is not indicated, ports will be flushed with 10 mL of 0.9% NaCl. Ports should be flushed with 20 mL of 0.9% NaCl after blood draws. Start: 10-29-2023 End: 10-29-2023 sodium chloride 0.9 % (flush ) 10-20 mL (BD POSIFLUSH) Start: 10-02-2022 End: 10-02-2022 NaCl 0.9% 500 mL iv bolus Start: 10-02-2022 End: 10-02-2022 NaCl 0.9% 1,000 mL iv bolus 30 actuat umeclidinium 0.0625 mg/actuat / vilanterol 0.025 mg/actuat dry powder inhaler (20 sources) Anticholinergic, beta2-Adrenergic Agonist Start: 04-27-2023 End: 2024 take 1 puff(s) by inhalation once daily ANORO ELLIPTA 62.5-25 mcg/actuation inhaler INHALE 1 PUFF INTO THE LUNGS EVERY DAY FOR 90 DAYS 04/27/2023 2024 Discontinued take 1 puff(s) by inhalation in the morning Anoro Ellipta 62.5-25 MCG/ACT aerosol powder Inhale 1 puff in the morning. Active Comment on above: INHALE 1 PUFF INTO T HE LUNGS EVERY DAY FOR 90 DAYS Problems Active Problems Problem Classification Problem Date Documented Date Episodic/Chronic Acute bronchitis (2 sources) Acute bronchitis, unspecified; Translations: [ACUTE BRONCHITIS UNSPECIFIED] Onset: 3 Episodic Anxiety disorders (20 sources) Anxiety; Translations: [Anxiety disorder, unspecified] Onset: 3 Chronic Cancer of bronchus; lung (20 sources) Malignant neoplasm of right upper lobe of lung; Translations: [Malignant neoplasm of upper lobe, right bronchus or lung] Onset: 2 Resolved: 3 Chronic Cancer of prostate (1 source) Malignant tumor of prostate; Translations: [Malignant neoplasm of prostate] Chronic Cardiac and circulatory congenital anomalies (16 sources) Atrial septal defect; Translations: [Atrial septal defect] Onset: 3 04-09-2023 Chronic Chronic obstructive pulmonary disease and bronchiectasis (12 sources) Paraseptal emphysema; Translations: [Other emphysema] Onset: 3 12-06-2022 Chronic Complications of surgical procedures or medical care (1 source) Anemia due to antineoplastic chemotherapy; Translations: [ANEMIA D/T ANTINEOPLASTIC CHEMO] Onset: 3 Chronic Congestive heart failure; nonhypertensive (2 sources) Chronic diastolic (congestive) heart failure; Translations: [Chronic diastolic (congestive) heart failure] Onset: 4 Chronic Coronary atherosclerosis and other heart disease (20 sources) Disorder of coronary artery; Translations: [Atherosclerotic heart disease of [place] coronary artery without angina pectoris] Onset: 3 12-04-2012 Chronic Coronary atherosclerosis and other heart disease (2 sources) Presence of coronary angioplasty implant and graft; Translations: [Presence of coronary angioplasty implant and graft] Onset: 4 Episodic Deficiency and other anemia (7 sources) Anemia; Translations: [Anemia, unspecified] 10-02-2022 Episodic Deficiency and other anemia (1 source) Anemia, unspecified; Translations: [Anemia, unspecified] Onset: 3 Episodic Disorders of lipid metabolism (20 sources) Hyperlipidemia; Translations: [Hyperlipidemia, unspecified] Onset: 3 Resolved: 3 12-04-2012 Chronic E Codes: Adverse effects of medical drugs (1 source) Adverse effect of antineoplastic and immunosuppressive drugs, initial encounter; Translations: [ADVRS EFF ANTINEOPL IMMUNOSUP INIT] Onset: 3 Episodic Essential hypertension (11 sources) Essential (primary) hypertension; Translations: [Essential hypertension] Onset: 3 Chronic Fever of unknown origin (1 source) Fever, unspecified; Translations: [FEVER UNSPECIFIED] Onset: 3 Episodic Heart valve disorders (20 sources) Rheumatic tricuspid insufficiency; Translations: [Diseases of tricuspid valve] Onset: 7 12-06-2022 Chronic Hyperplasia of prostate (20 sources) Benign prostatic hyperplasia with lower urinary tract symptoms; Translations: [Urinary frequency due to benign prostatic hypertrophy] Onset: 9 Resolved: 3 04-09-2023 Chronic Immunity disorders (2 sources) Secondary immune deficiency disorder; Translations: [Immunodeficiency due to conditions classified elsewhere ([facility])] 04-09-2024 Chronic Lymphadenitis (5 sources) Lymphadenopathy; Translations: [Enlarged lymph nodes, unspecified] Onset: 2 Episodic Miscellaneous mental health disorders (1 source) Anxiety about body function or health; Translations: [Other symptoms and signs involving emotional state] 04-18-2024 Episodic Mood disorders (20 sources) Moderate major depression, single episode; Translations: [Major depressive disorder, single episode, moderate] Onset: 3 12-06-2022 Chronic Multiple myeloma (20 sources) Multiple myeloma; Translations: [Multiple myeloma not having achieved remission] Onset: 2 02-06-2014 Chronic Nutritional deficiencies (20 sources) Undernutrition; Translations: [Mild protein-calorie malnutrition] Onset: 3 11-20-2022 Chronic Osteoarthritis (20 sources) Degenerative joint disease involving multiple joints; Translations: [Polyosteoarthritis, unspecified] Onset: 6 Resolved: 3 12-06-2022 Chronic Other aftercare (1 source) long term (current) use of aspirin; Translations: [BEEKEEPER CURRENT USE OF ASPIRIN] Onset: 3 Episodic Other aftercare (1 source) Other fdc (current) drug therapy; Translations: [OTH LONGTERM CURRENT DRUG THERAPY] Onset: 3 Episodic Other and ill-defined heart disease (8 sources) Right cardiac ventricular dilatation; Translations: [Cardiomegaly] Onset: 3 04-09-2023 Chronic Other and unspecified benign neoplasm (2 sources) Melanocytic nevus of trunk; Translations: [Melanocytic nevi of trunk] 04-24-2024 Episodic Other circulatory disease (8 sources) Stented artery; Translations: [Presence of other vascular implants and grafts] Onset: 3 04-09-2023 Chronic Other circulatory disease (2 sources) Spider nevus; Translations: [Nevus, non-neoplastic] 04-24-2024 Episodic Other connective tissue disease (12 sources) Neuropathic pain; Translations: [Neuralgia and neuritis, unspecified] Episodic Other ear and sense organ disorders (2 sources) Lesion of skin of right ear; Translations: [Disorder of right external ear, unspecified] Episodic Other injuries and conditions due to external causes (1 source) History of falling; Translations: [HISTORY OF FALLING] Onset: 3 Episodic Other lower respiratory disease (3 sources) Shortness of breath; Translations: [SHORTNESS OF BREATH] Onset: 3 Episodic Other lower respiratory disease (1 source) Other forms of dyspnea; Translations: [OTHER FORMS OF DYSPNEA] Onset: 3 Episodic Other nervous system disorders (20 sources) Pain due to neoplastic disease; Translations: [Neoplasm related pain (acute) (chronic)] Chronic Other nervous system disorders (20 sources) Intercostal neuralgia; 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] Onset: 1 01-10-2021 Chronic Other nervous system disorders (8 sources) Carpal tunnel syndrome; Translations: [Carpal tunnel syndrome, unspecified upper limb] Onset: 3 12-06-2022 Chronic Other nervous system disorders (8 sources) Left radial nerve palsy; Translations: [Lesion of radial nerve, left upper limb] Onset: 3 12-06-2022 Chronic Other nervous system disorders (8 sources) Neuropathy; Translations: [Polyneuropathy, unspecified] Onset: 3 12-06-2022 Chronic Other nervous system disorders (8 sources) Lesion of radial nerve; Translations: [Lesion of radial nerve, unspecified upper limb] Onset: 1 04-09-2023 Chronic Other nervous system disorders (1 source) Ataxia, unspecified; Translations: [ATAXIA UNSPECIFIED] Onset: 3 Episodic Other nutritional; endocrine; and metabolic disorders (2 sources) Hypomagnesemia; Translations: [Hypomagnesemia] 10-02-2022 Chronic Other skin disorders (1 source) Skin lesion; Translations: [Disorder of the skin and subcutaneous tissue, unspecified] 04-18-2024 Episodic Other skin disorders (2 sources) Seborrheic keratosis; Translations: [Other seborrheic keratosis] 04-24-2024 Episodic Other skin disorders (2 sources) Lentiginosis; Translations: [Other melanin hyperpigmentation] 04-24-2024 Episodic Other skin disorders (2 sources) Inflamed seborrheic keratosis; Translations: [Inflamed seborrheic keratosis] 04-24-2024 Episodic Other skin disorders (2 sources) Actinic keratosis; Translations: [Actinic keratosis] 04-24-2024 Episodic Pulmonary heart disease (2 sources) Pulmonary hypertension, unspecified; Translations: [Pulmonary hypertension, unspecified] Onset: 4 Chronic Residual codes; unclassified (1 source) Patient encounter status; Translations: [Encounter for procedure for purposes other than remedying health state, unspecified] Episodic Residual codes; unclassified (4 sources) Altered mental status, unspecified; Translations: [ALTERED MENTAL STATUS UNSPECIFIED] Onset: 3 Episodic Substance-related disorders (1 source) Opioid dependence; Translations: [Opioid dependence, uncomplicated] Chronic Unclassified (1 source) CONTACT W/AND (SUSP) EXPOS COVID-19; Translations: [CONTACT W/AND (SUSP) EXPOS COVID-19] Onset: 3 Unclassified (1 source) Malignant neoplasm of right main bronchus; Translations: [Malignant neoplasm of right main bronchus] Onset: 3 Past or Other Problems Problem Classification Problem Date Documented Date Episodic/Chronic Acute myocardial infarction (8 sources) Acute myocardial infarction; Translations: [Acute myocardial infarction, unspecified] Onset: 01-10-2013 Resolved: 05-21-2023 05-21-2023 Chronic Administrative/social admission (8 sources) Advance directive discussed with patient; Translations: [Other specified counseling] Onset: 05-25-2014 Resolved: 05-21-2023 05-21-2023 Episodic Cancer of bronchus; lung (20 sources) History of malignant neoplasm of thoracic cavity structure; Translations: [Personal history of other malignant neoplasm of bronchus and lung] Onset: 01-10-2021 01-10-2021 Episodic Cardiac dysrhythmias (16 sources) Bradycardia; Translations: [Bradycardia, unspecified] Onset: 09-20-2022 Resolved: 05-21-2023 04-09-2023 Episodic Genitourinary symptoms and ill-defined conditions (2 sources) Frequency of micturition; Translations: [Frequency of micturition] Onset: 06-11-2023 Episodic Malaise and fatigue (4 sources) Fatigue; Translations: [Other fatigue] Onset: 10-02-2022 10-02-2022 Episodic Mood disorders (8 sources) Mood disorders Onset: 05-21-2023 05-21-2023 Nonspecific chest pain (20 sources) Chest wall pain; Translations: [Other chest pain] Onset: 01-07-2013 Resolved: 05-21-2023 01-10-2021 Episodic Other acquired deformities (8 sources) [place]-neck deformity of finger of right hand; Translations: [[place]-neck deformity of right finger(s)] Onset: 05-21-2023 05-21-2023 Episodic Other and unspecified benign neoplasm (8 sources) History of polyp of colon; Translations: [History of colonic polyps] Onset: 12-28-2015 04-09-2023 Episodic Other circulatory disease (8 sources) H/O: cardiovascular disease; Translations: [Personal history of other diseases of the circulatory system] Onset: 08-27-2013 04-09-2023 Episodic Other circulatory disease (8 sources) Low blood pressure; Translations: [Hypotension, unspecified] Onset: 01-10-2013 04-09-2023 Episodic Other connective tissue disease (20 sources) Cramp in lower limb; Translations: [Cramp and spasm] Onset: 06-14-2012 06-14-2012 Episodic Other diseases of kidney and ureters (8 sources) Disorder of urinary tract; Translations: [Other obstructive and reflux uropathy] Onset: 12-06-2022 12-06-2022 Episodic Other diseases of veins and lymphatics (8 sources) Disorder of vein of lower extremity; Translations: [Venous insufficiency (chronic) (peripheral)] Onset: 12-06-2022 12-06-2022 Episodic Other fractures (8 sources) Closed fracture of multiple right ribs; Translations: [Multiple fractures of ribs, right side, initial encounter for closed fracture] Onset: 12-06-2022 Resolved: 05-21-2023 05-21-2023 Episodic Other lower respiratory disease (9 sources) Lung mass; Translations: [Other nonspecific abnormal finding of lung field] Onset: 04-24-2019 12-06-2022 Episodic Other lower respiratory disease (8 sources) Dyspnea on exertion; Translations: [Other forms of dyspnea] Onset: 01-07-2013 04-09-2023 Episodic Other non-traumatic joint disorders (8 sources) Pain in left knee; Translations: [Pain in joint, lower leg] Onset: 12-06-2022 Resolved: 05-21-2023 05-21-2023 Episodic Other screening for suspected conditions (not mental disorders or infectious disease) (14 sources) Imaging of lung abnormal ; Translations: [Abnormal results of pulmonary function studies] Onset: 01-22-2023 Episodic Residual codes; unclassified (20 sources) Pain; Translations: [Pain, unspecified] Onset: 06-14-2012 Resolved: 05-21-2023 06-14-2012 Episodic Results Test Name Value Interpretation Reference Range Facility No Panel Informationon 04-24 [facility] -- RAGHAVENDRA HEARD ([id number]) 1945 M Date Time Provider Department 04/18/24 RHONA RUIZ During your visit today, we recorded the following information about you: Ludmila Lazaro 04/18/2024 3:14 PM Signed Raghavendra Ernst Stopped in the office. States he found a bump on his ear and thinks its skin cancer again. He would like a referral to [facility] Dermatology. He states feels just like when he had the skin cancer on his nose. He was hoping he wouldn't need to have an appt here to get the referral. hRona Douglas, ILENE 04/18/2024 3:57 PM Signed Order for derm referral pended. ILENE Tian Rebecca, RN 04/18/2024 3:57 PM Signed Addended by: RHONA RUIZ on: 04/18/2024 03:57 PM Modules accepted: Ja Price MD 04/20/2024 10:58 AM Signed Addended by: JA BECKER on: 04/20/2024 10:58 AM Modules accepted: Ja Price MD 04/20/2024 10:59 AM Signed Order signed. Ludmila Lazaro 04/21/2024 2:50 PM Signed Message left on [employer] asking him what dermatology office at [facility] he would like his referral sent too Ludmila Lazaro PSS Ludmila Lazaro 04/22/2024 12:34 PM Signed Patient is seeing [facility] dermatology on 04/24/24 at 1:10PM Ludmila Lazaro PSS Allergies As of Date: 04/18/2024 (No Known Allergies) Date Reviewed: 04/17/2024 Reviewed by: Skylar Gaspar MA - Fully Assessed Primary Visit Diagnosis:Skin lesion [L98.9] Order(s):CONSULT TO DERMATOLOGY [9006] Order #: [id number]: 1 FUTURE Prescriptions as of 04/22/2024 - meloxicam (MOBIC) 15 mg tablet Take 1 tablet by mouth once daily. - clonazePAM (KLONOPIN) 1 mg tablet TAKE 1 TABLET BY MOUTH THREE TIMES A DAY NEEDED FOR UP TO 30 DAYS - HYDROcodone-acetaminophen (NORCO) 5-325 mg per tablet Take 2 tablets by mouth every 6 hours as needed. - DULoxetine (CYMBALTA) 60 mg capsule Take 1 capsule by mouth two times a day. - gabapentin (NEURONTIN) 300 mg capsule Take 2 capsules by mouth three times a day for 90 days. - docusate sodium (COLACE) 100 mg capsule Take 2 capsules by mouth two times a day. - HYDROcodone-acetaminophen (NORCO) 5-325 mg per tablet Take 2 tablets by mouth every 6 hours as needed. - furosemide (LASIX) 40 mg tablet - TRELEGY ELLIPTA 100-62.5-25 mcg inhalation powder INHALE 1 PUFF ONCE DAILY FOR 30 DAYS - nitroglycerin sublingual (NITROQUICK) 0.4 mg SL tablet Dissolve 1 tablet under the tongue every 5 minutes as needed. - senna (SENNA LAXATIVE) 8.6 mg tab Take 2 tablets by mouth two times a day. - albuterol (PROVENTIL) 2.5 mg /3 mL (0.083 %) nebulizer solution 2.5 mg every 4 hours as needed. - predniSONE (DELTASONE) 10 mg tablet Take 1 tablet by mouth once daily. Take 4 daily x 5 days, then 2 daily x 5 days, then 1 daily or as directed. - naloxone 4 mg/actuation nasal spray (NARCAN) Use 1 spray in one nostril as needed for overdose. May repeat every 2 to 3 min in alternating nostrils until medical assistance is available - finasteride (PROSCAR) 5 mg tablet - triamterene-hydroCHLOROthi azide (MAXZIDE-25) 37.5-25 mg per tablet TAKE 1 TABLET BY MOUTH EVERY DAY IN THE MORNING - metoprolol succinate ER (TOPROL XL) 25 mg 24 hr tablet Take 25 mg by mouth once daily. - mv-mn/iron/folic acid/herb 190 (VITAMIN D3 COMPLETE ORAL) Take by mouth. - ZINC ORAL Take by mouth. - tamsulosin ER (FLOMAX) 0.4 mg cap - Aspirin 81 mg CpDR Take 81 mg by mouth once daily. - atorvastatin 40 mg tablet Take 40 mg by mouth once daily. - DOCOSAHEXANOIC ACID/EPA (FISH OIL ORAL) Take by mouth. 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] 01/10/2021 Lung cancer (HCC) [C34.90] 05/03/2022 Malignant neoplasm of upper lobe of right lung *05/03/2022 Malnutrition of mild degree (HCC) [E44.1] 11/20/2022 Moderate major depression, single episode (HCC)*12/06/2022 Encounter Status:Closed by LUDMILA LAZARO on 04/18/24 Normal [facility] CBC W Auto Differential pane l (Bld)on 04-17-2024 Basophils (Bld) [#/Vol] [facility] Differential cell count method Nom (Bld) Auto [facility] Eosinophils (Bld) [#/Vol] 0.21 10*3/uL [facility] Immature granulocytes (Bld) [#/Vol] [facility] Immature granulocytes/100 WBC (Bld) 0.3 % [facility] Lymphocytes (Bld) [#/Vol] 1.92 10*3/uL [facility] Monocytes (Bld) [#/Vol] 0.84 10*3/uL [facility] Monocytes/100 WBC (Bld) 11.0 % [facility] Neutrophils (Bld) [#/Vol] 4.62 10*3/uL [facility] Nucleated RBC (Bld) [#/Vol] [facility] Nucleated RBC/100 WBC (Bld) [Ratio] 0.0 % /100 WBC [facility] Platelet mean volume (Bld) [Entitic vol] 10.0 fL 9.0 - 12.7 fL [facility] Platelets (Bld) [#/Vol] 228 10*3/uL [facility] RBC (Bld) [#/Vol] 3.00 10*6/uL Low 4.20 - 6.0 0 m/uL [facility] WBC (Bld) [#/Vol] 7.63 10*3/uL [facility] Basophils (Bld) [#/Vol] 10*3/uL Normal <0.11 [facility] Comment on above: Order Comment: Speci men Type: BLOOD SPECIMENOrdering Facility: [facility] Address: [address] [place] [address] Performed By: #### [id number] ####[facility] LABCLIA [id number] [place] [address] Basophils/100 WBC (Bld) 0.3 % Normal [facility] Comment on above: Order Comment: Speci men Type: BLOOD SPECIMENOrdering Facility: [facility] Address: [address] [place] [address] Performed By: #### [id number] ####[facility] LABCLIA [id number] [place] [address] Differential cell count method Nom (Bld) Auto Normal [facility] [facility] Comment on above: Order Comment: Speci men Type: BLOOD SPECIMENOrdering Facility: [facility] Address: [address] [place] [address] Performed By: #### 5 7021-8 ####[facility] LABCLIA [id number] [place] [address] Eosinophils (Bld) [#/Vol] 0.21 10*3/uL Normal <0.46 [facility] Comment on above: Order Comment: Speci men Type: BLOOD SPECIMENOrdering Facility: [facility] Address: [address] [place] [address] Performed By: #### 5 7021-8 ####[facility] LABCLIA [id number] [place] [address] Eosinophils/100 WBC (Bld) 2.8 % Normal [facility] Comment on above: Order Comment: Speci men Type: BLOOD SPECIMENOrdering Facility: [facility] Address: [address] [place] [address] Performed By: #### 5 7021-8 ####[facility] LABCLIA [id number] [place] [address] Erythrocyte distribution width (RBC) [Ratio] 16.8 % High 11.5-15.0 [facility] Comment on above: Order Comment: Speci men Type: BLOOD SPECIMENOrdering Facility: [facility] Address: [address] [place] [address] Performed By: #### 5 7021-8 ####[facility] LABCLIA [id number] [place] [address] Hematocrit (Bld) [Volume fraction] 31.4 % Low 39.0-51.0 [facility] Comment on above: Order Comment: Speci men Type: BLOOD SPECIMENOrdering Facility: [facility] Address: [address] [place] [address] Performed By: #### 5 7021-8 ####[facility] LABCLIA [id number] [place] [address] Hemoglobin (Bld) [Mass/Vol] 10.6 g/dL Low 13.0-17.0 [facility] Comment on above: Order Comment: Speci men Type: BLOOD SPECIMENOrdering Facility: [facility] Address: [address] [place] [address] Performed By: #### 5 7021-8 ####[facility] LABCLIA [id number] [place] [address] Immature granulocytes (Bld) [#/Vol] 10*3/uL Normal <0.10 [facility] Comment on above: Order Comment: Speci men Type: BLOOD SPECIMENOrdering Facility: [facility] Address: [address] [place] [address] Performed By: #### 5 7021-8 ####[facility] LABCLIA [id number] [place] [address] Immature granulocytes/100 WBC (Bld) 0.3 % Normal [facility] Comment on above: Order Comment: Speci men Type: BLOOD SPECIMENOrdering Facility: [facility] Address: [address] [place] [address] Performed By: #### 5 7021-8 ####[facility] LABCLIA [id number] [place] [address] Lymphocytes (Bld) [#/Vol] 1.92 10*3/uL Normal 1.00-4.00 [facility] Comment on above: Order Comment: Speci men Type: BLOOD SPECIMENOrdering Facility: [facility] Address: [address] [place] [address] Performed By: #### 5 7021-8 ####[facility] LABCLIA [id number] [place] [address] Lymphocytes/100 WBC (Bld) 25.2 % Normal [facility] Comment on above: Order Comment: Speci men Type: BLOOD SPECIMENOrdering Facility: [facility] Address: [address] [place] [address] Performed By: #### 5 7021-8 ####[facility] LABCLIA [id number] [place] [address] MCH (RBC) [Entitic mass] 35.3 pg High 26.0-34.0 [facility] Comment on above: Order Comment: Speci men Type: BLOOD SPECIMENOrdering Facility: [facility] Address: [address] [place] [address] Performed By: #### 5 7021-8 ####[facility] LABIA [id number] [place] [address] MCHC (RBC) [Mass/Vol] 33.8 g/dL Normal 30.5-36.0 [facility] Comment on above: Order Comment: Speci men Type: BLOOD SPECIMENOrdering Facility: [facility] Address: [address] [place] [address] Performed By: #### 5 7021-8 ####[facility] LABIA [id number] [place] [address] MCV (RBC) [Entitic vol] 104.7 fL High 80.0-100.0 [facility] Comment on above: Order Comment: Speci men Type: BLOOD SPECIMENOrdering Facility: [facility] Address: [address] [place] [address] Performed By: #### 5 7021-8 ####[facility] LABIA [id number] [place] [address] Monocytes (Bld) [#/Vol] 0.84 10*3/uL Normal <0.87 [facility] Comment on above: Order Comment: Speci men Type: BLOOD SPECIMENOrdering Facility: [facility] Address: [address] [place] [address] Performed By: #### 5 7021-8 ####[facility] LABIA [id number] [place] [address] Monocytes/100 WBC (Bld) 11.0 % Normal [facility] Comment on above: Order Comment: Speci men Type: BLOOD SPECIMENOrdering Facility: [facility] Address: [address] [place] [address] Performed By: #### 5 7021-8 ####[facility] LABCLIA [id number] [place] [address] Neutrophils (Bld) [#/Vol] 4.62 10*3/uL Normal 1.45-7.50 [facility] Comment on above: Order Comment: Speci men Type: BLOOD SPECIMENOrdering Facility: [facility] Address: [address] [place] [address] Performed By: #### 5 7021-8 ####[facility] LABCLIA [id number] [place] [address] Neutrophils/100 WBC (Bld) 60.4 % Normal [facility] Comment on above: Order Comment: Speci men Type: BLOOD SPECIMENOrdering Facility: [facility] Address: [address] [place] [address] Performed By: #### 5 7021-8 ####[facility] LABCLIA [id number] [place] [address] Nucleated RBC (Bld) [#/Vol] 10*3/uL Normal <0.01 [facility] Comment on above: Order Comment: Speci men Type: BLOOD SPECIMENOrdering Facility: [facility] Address: [address] [place] [address] Performed By: #### 5 7021-8 ####[facility] LABIA [id number] [place] [address] Nucleated RBC/100 WBC (Bld) [Ratio] 0.0 /100 WBC Normal [facility] Comment on above: Order Comment: Speci men Type: BLOOD SPECIMENOrdering Facility: [facility] Address: [address] [place] [address] Performed By: #### 5 7021-8 ####[facility] LABIA [id number] [place] [address] Platelet mean volume (Bld) [Entitic vol] 10.0 fL Normal 9.0-12.7 [facility] Comment on above: Order Comment: Speci men Type: BLOOD SPECIMENOrdering Facility: [facility] Address: [address] [place] [address] Performed By: #### 5 7021-8 ####[facility] LABCLIA [id number] [place] [address] Platelets (Bld) [#/Vol] 228 10*3/uL Normal 150-400 [facility] Comment on above: Order Comment: Speci men Type: BLOOD SPECIMENOrdering Facility: [facility] Address: [address] [place] [address] Performed By: #### 5 7021-8 ####[facility] LABIA [id number] [place] [address] RBC (Bld) [#/Vol] 3.00 10*6/uL Low 4.20-6.00 [facility] Comment on above: Order Comment: Speci men Type: BLOOD SPECIMENOrdering Facility: [facility] Address: [address] [place] [address] Performed By: #### 5 7021-8 ####[facility] LABIA [id number] [place] [address] WBC (Bld) [#/Vol] 7.63 10*3/uL Normal 3.70-11.00 [facility] Comment on above: Order Comment: Speci men Type: BLOOD SPECIMENOrdering Facility: [facility] Address: [address] [place] [address] Performed By: #### 5 7021-8 ####[facility] LABIA [id number] [place] [address] [facility] CBC W AUTO DIFF BLDon [facility] BASOPHILS # BLD AUTO <0.03 [facility] DIFFERENTIAL METHOD BLD Auto [facility] EOSINOPHIL # BLD AUTO 0.21 [facility] LYMPHOCYTES # BLD AUTO 1.92 [facility] MONOCYTES # BLD AUTO 0.84 [facility] NEUTROPHILS # BLD AUTO 4.62 [facility] NRBC # BLD AUTO <0.01 [facility] NRBC/100 WBC BLD-RTO 0 /100 WBC [facility] PLATELET # BLD AUTO 228 [facility] PMV BLD AUTO 10 fL 9.0 - 12.7 fL [facility] WBC # BLD AUTO 7.63 [facility] IMM GRANULOCYTES # BLD AUTO <0.03 [facility] IMM GRANULOCYTES/LEUK NFR BLD AUTO 0.3 % [facility] Monocytes/100 WBC (Bld) 11 % [facility] RBC (Bld) [#/Vol] 3 10*6/uL Low 4.20 - 6.0 0 m/uL [facility] Specimen Type: BLOOD SPECIMEN [facility] Address: [address] [place] [address] Original Ordering Provider: GLENYS KURTZ [facility] CNOVSPon 04-17-2024 CNOVSP Visit (SP) Office (H [facility]) -- MARANDARAGHAVENDRA LANDEROS ([id number]) 1945 M Date Time Provider Department 04/17/24 9:45 AM JA BECKER During your visit today, we recorded the following information about you: Temperature Pulse Respiration Blood pressure 97.3 degrees 67/minute 16/minute 142/72 Weight Height 71 kg 1.727 m Ja Becker MD 04/18/2024 6:13 AM Signed PATIENT NAME: Raghavendra Heard DATE: 04/17/2024 PRIMARY CARE PHYSICIAN: Dr. Prerna Grissom II OTHER PHYSICIANS: Dr. Toledo (Cardiology [facility]), Dr. Zhang, Dr. Hernández (Wardrobe Manager in [place]), Dr. Stinson (Thoracic Surgery in [place]), Dr. Alberts Portions of this encounter note have been copied from the note from 2024 and has been updated where appropriate, and reflect my current medical decision making from today. CC: This is a 79 year old male with a history of recurrent lung cancer and multiple myeloma, seen for for scheduled follow-up. INTERIM HISTORY: Since the patient's last visit here he developed another bout of bronchitis. Currently he is on antibiotics and steroids per pulmonary and is clinically improving. Otherwise no significant medical changes. Chronic pain controlled on current medications. Ongoing severe anxiety controlled on current medications. No new complaints today. MEDICATIONS: clonazePAM (KLONOPIN) 1 mg tablet TAKE 1 TABLET BY MOUTH THREE TIMES A DAY NEEDED FOR UP TO 30 DAYS HYDROcodone-acetaminophen (NORCO) 5-325 mg per tablet Take 2 tablets by mouth every 6 hours as needed. DULoxetine (CYMBALTA) 60 mg capsule Take 1 capsule by mouth two times a day. gabapentin (NEURONTIN) 300 mg capsule Take 2 capsules by mouth three times a day for 90 days. docusate sodium (COLACE) 100 mg capsule Take 2 capsules by mouth two times a day. HYDROcodone-acetaminophen (NORCO) 5-325 mg per tablet Take 2 tablets by mouth every 6 hours as needed. meloxicam (MOBIC) 15 mg tablet take 1 tablet by mouth every day diazePAM (VALIUM) 5 mg tablet Take 1 tablet by mouth every 8 hours as needed for up to 120 days. TRELEGY ELLIPTA 100-62.5-25 mcg inhalation powder INHALE 1 PUFF ONCE DAILY FOR 30 DAYS nitroglycerin sublingual (NITROQUICK) 0.4 mg SL tablet Dissolve 1 tablet under the tongue every 5 minutes as needed. senna (SENNA LAXATIVE) 8.6 mg tab Take 2 tablets by mouth two times a day. albuterol (PROVENTIL) 2.5 mg /3 mL (0.083 %) nebulizer solution 2.5 mg every 4 hours as needed. predniSONE (DELTASONE) 10 mg tablet Take 1 tablet by mouth once daily. Take 4 daily x 5 days, then 2 daily x 5 days, then 1 daily or as directed. (Patient taking differently: Take 10 mg by mouth as needed. Take 4 daily x 5 days, then 2 daily x 5 days, then 1 daily or as directed.) finasteride (PROSCAR) 5 mg tablet triamterene-hydroCHLOROthi azide (MAXZIDE-25) 37.5-25 mg per tablet TAKE 1 TABLET BY MOUTH EVERY DAY IN THE MORNING mv-mn/iron/folic acid/herb 190 (VITAMIN D3 COMPLETE ORAL) Take by mouth. ZINC ORAL Take by mouth. tamsulosin ER (FLOMAX) 0.4 mg cap Aspirin 81 mg CpDR Take 81 mg by mouth once daily. atorvastatin 40 mg tablet Take 40 mg by mouth once daily. DOCOSAHEXANOIC ACID/EPA (FISH OIL ORAL) Take by mouth. furosemide (LASIX) 40 mg tablet (Patient not taking: Reported on 04/17/2024) naloxone 4 mg/actuation nasal spray (NARCAN) Use 1 spray in one nostril as needed for overdose. May repeat every 2 to 3 min in alternating nostrils until medical assistance is available (Patient not taking: Reported on 04/17/2024) metoprolol succinate ER (TOPROL XL) 25 mg 24 hr tablet Take 25 mg by mouth once daily. (Patient not taking: Reported on 04/17/2024) ALLERGIES: Patient has no known allergies. PAST MEDICAL HISTORY: PAST MEDICAL HISTORY Diagnosis Date Anxiety Enlarged prostate HTN (hypertension) Hypercholesteremia Multiple myeloma, without mention of having achieved remission PAST SURGICAL HISTORY: PAST SURGICAL HISTORY Procedure Laterality Date REMOVAL OF LUNG,LOBECTOMY Right 04/24/2019 right upper lobe REVIEW OF SYSTEMS: As above. PHYSICAL EXAM: Vitals: BP 142/72 Pulse 67 Temp 36.3 ?C (97.3 ?F) (Temporal) Resp 16 Ht 172.7 cm (5' 7.99 ) Wt 71 kg (156 lb 8.4 oz) SpO2 97% BMI 23.81 kg/m? ECOG 1 General: Alert and oriented, no distress, pleasant and cooperative. Heart: Regular, normal S1 and S2, no murmurs, rubs, or gallops Lungs: Expiratory wheezing in both lungs. Abdomen: Benign Extremities: Feet/ankles without edema, posterior tibial pulses full and symmetrical PATHOLOGY: 06/14/2022 Lymph node, 10 R, EBUS transbronchial biopsy Adenocarcinoma. Immunohistochemistry: PD-L1 expression less than 1% ALK rearrangement 0% BRAF - No variant detected [Reference Sequence: ([id number])]. EGFR - No variant detected [Reference Sequence: ([id number])]. HER2 (ERBB2) - No (more content not included)... Normal [facility] Comprehensive metabolic 2000 panelOrdered By: Niko Griffith on 04-17-2024 Albumin [Mass/Vol] 4.2 g/dL 3.9 - 4.9 g/dL [facility] ALP [Catalytic activity/Vol] 58 U/L 38 - 113 U/L [facility] ALT [Catalytic activity/Vol] 19 U/L 10 - 54 U/L [facility] Anion gap [Moles/Vol] 11 mmol/L 8 - 15 mmol/L [facility] AST [Catalytic activity/Vol] 16 U/L 14 - 40 U/L [facility] Bilirubin [Mass/Vol] 0.3 mg/dL 0.2 - 1 .3 mg/dL [facility] Calcium [Mass/Vol] 9.4 mg/dL 8.5 - 10. 2 mg/dL [facility] Chloride [Moles/Vol] 103 mmol/L 98 - 10 7 mmol/L [facility] CO2 [Moles/Vol] 27 mmol/L 22 - 30 mmol/L [facility] Creatinine [Mass/Vol] 0.96 mg/dL 0.73 - 1.22 mg/dL [facility] GFR/1.73 sq M.predicted among non-blacks MDRD (S/P/Bld) [Vol rate/Area] 81 mL/min/{1.73_m2} - PINF [facility] Comment on above: Estimated Glomerular Filtration Rate (eGFR) is calculated using the 2020 CKD-EPI creatinine equation. This equation utilizes serum creatinine, sex, and age as parameters. The creatinine assay has traceable calibration to isotope dilution-mass spectrometry. Refer to KDIGO guidelines for clinical interpretation. In patients with unstable renal function, e.g. those with acute kidney injury, the eGFR may not accurately reflect actual GFR. Glucose [Mass/Vol] 168 mg/dL High 74 - 99 mg/dL [facility] Comment on above: The [place] Di[employer] Association (ADA) provides guidance for cutoff values for fasting glucose and random glucose. The ADA defines fasting as no caloric intake for at least 8 hours. Fasting plasma glucose results between 100 to 125 mg/dL indicate increased risk for diabetes (prediabetes). Fasting plasma glucose results greater than or equal to 126 mg/dL meet the criteria for diagnosis of diabetes. In the absence of unequivocal hyperglycemia, results should be confirmed by repeat testing. In a patient with classic symptoms of hyperglycemia or hyperglycemic crisis, random plasma glucose results greater than or equal to 200 mg/dL meet the criteria for diagnosis of diabetes. Reference: Standards of Medical Care in Diabetes 2016, [place] [employer]. Diabetes Care. 2016.39(Suppl 1). Interpretation and review of laboratory results Abnormal [facility] Potassium [Moles/Vol] 3.7 mmol/L 3.7 - 5.1 mmol/L [facility] Protein [Mass/Vol] 7.4 g/dL 6.3 - 8.0 g/dL [facility] Sodium [Moles/Vol] 141 mmol/L 136 - 144 mmol/L [facility] Urea nitrogen [Mass/Vol] 26 mg/dL High 9 - 24 mg/dL [facility] Comprehensive metabolic 2000 panelon 04-17-2024 Albumin [Mass/Vol] 4.2 g/dL Normal 3.9-4.9 [facility] Comment on above: Order Comment: Julio gilbert Type: BLOOD SPECIMEN [facility] Facility: [facility] Address: [address] [place] [address] Performed By: #### L [id number] #### [facility] CLIA [id number] [address] [place] [address] [place] ALP [Catalytic activity/Vol] 58 U/L Normal 38-113 [facility] Comment on above: Order Comment: Julio gilbert Type: BLOOD SPECIMEN [facility]ing Facility: [facility] Address: [address] [place] [address] Performed By: #### L [id number] #### [facility] CLIA [id number] [address] [place] [address] [place] ALT [Catalytic activity/Vol] 19 U/L Normal 10-54 [facility] Comment on above: Order Comment: Julio gilbert Type: BLOOD SPECIMEN [facility]ing Facility: [facility] Address: [address] [place] [address] Performed By: #### L [id number] #### [facility] CLIA [id number] [address] [place] [address] [place] Anion gap [Moles/Vol] 11 mmol/L Normal 8-15 [facility] Comment on above: Order Comment: Speci men Type: BLOOD SPECIMEN [facility]ing Facility: [facility] Address: [address] [place] [address] Performed By: #### L [id number] #### [facility] CLIA [id number] [address] [place] [address] [place] AST [Catalytic activity/Vol] 16 U/L Normal 14-40 [facility] Comment on above: Order Comment: Speci men Type: BLOOD SPECIMEN [facility]ing Facility: [facility] Address: [address] [place] [address] Performed By: #### L [id number] #### [facility] CLIA [id number] [address] [place] [address] [place] Bilirubin [Mass/Vol] 0.3 mg/dL Normal 0.2-1.3 [facility] Comment on above: Order Comment: Speci men Type: BLOOD SPECIMEN [facility]ing Facility: [facility] Address: [address] [place] [address] Performed By: #### L [id number] #### [facility] CLIA [id number] [address] [place] [address] [place] Calcium [Mass/Vol] 9.4 mg/dL Normal 8.5-10.2 [facility] Comment on above: Order Comment: Speci men Type: BLOOD SPECIMEN [facility]ing Facility: [facility] Address: [address] [place] [address] Performed By: #### L [id number] #### [facility] CLIA [id number] [address] [place] [address] [place] Chloride [Moles/Vol] 103 mmol/L Normal 98-107 [facility] Comment on above: Order Comment: Speci men Type: BLOOD SPECIMEN [facility]ing Facility: [facility] Address: [address] [place] [address] Performed By: #### L [id number] #### [facility] CLIA [id number] [address] [place] [address] [place] CO2 [Moles/Vol] 27 mmol/L Normal 22-30 [facility] Comment on above: Order Comment: Speci men Type: BLOOD SPECIMEN Ordering Facility: [facility] Address: [address] [place] [address] Performed By: #### L [id number] #### [facility] CLIA [id number] [address] [place] [address] [place] Creatinine [Mass/Vol] 0.96 mg/dL Normal 0.73-1.22 [facility] Comment on above: Order Comment: Speci men Type: BLOOD SPECIMEN Ordering Facility: [facility] Address: [address] [place] [address] Performed By: #### L [id number] #### [facility] CLIA [id number] [address] [place] [address] [place] Creatinine and Glomerular filtration rate.predicted panel (S/P/Bld) 81 mL/min/1.73m??? Normal >=60 [facility] Comment on above: Order Comment: Speci men Type: BLOOD SPECIMEN Ordering Facility: [facility] Address: [address] [place] [address] Result Comment: Carol mated Glomerular Filtration Rate (eGFR) is calculated using the 2020 CKD-EPI creatinine equation. This equation utilizes serum creatinine, sex, and age as parameters. The creatinine assay has traceable calibration to isotope dilution-mass spectrometry. Refer to KDIGO guidelines for clinical interpretation. In patients with unstable renal function, e.g. those with acute kidney injury, the eGFR may not accurately reflect actual GFR. Performed By: #### L [id number] #### [facility] CLIA [id number] [address] [place] [address] [place] Glucose [Mass/Vol] 168 mg/dL High 74-99 [facility] Comment on above: Order Comment: Specvirgil gilbert Type: BLOOD SPECIMEN Ordering Facility: [facility] Address: [address] [place] [address] Result Comment: The [place] Diabetes Association (ADA) provides guidance for cutoff values for fasting glucose and random glucose. The ADA defines fasting as no caloric intake for at least 8 hours. Fasting plasma glucose results between 100 to 125 mg/dL indicate increased risk for diabetes (prediabetes). Fasting plasma glucose results greater than or equal to 126 mg/dL meet the criteria for diagnosis of diabetes. In the absence of unequivocal hyperglycemia, results should be confirmed by repeat testing. In a patient with classic symptoms of hyperglycemia or hyperglycemic crisis, random plasma glucose results greater than or equal to 200 mg/dL meet the criteria for diagnosis of diabetes. Reference: Standards of Medical Care in Diabetes 2016, [place] [employer]. Diabetes Care. 2016.39(Suppl 1). Performed By: #### L [id number] #### [facility] CLIA [id number] [address] [place] [address] [place] Potassium [Moles/Vol] 3.7 mmol/L Normal 3.7-5.1 [facility] Comment on above: Order Comment: Julio gilbert Type: BLOOD SPECIMEN Ordering Facility: [facility] Address: [address] [place] [address] Performed By: #### L [id number] #### [facility] CLIA [id number] [address] [place] [address] [place] Protein [Mass/Vol] 7.4 g/dL Normal 6.3-8.0 [facility] Comment on above: Order Comment: Julio gilbert Type: BLOOD SPECIMEN Ordering Facility: [facility] Address: [address] [place] [address] Performed By: #### L [id number] #### [facility] CLIA [id number] [address] [place] [address] [place] Sodium [Moles/Vol] 141 mmol/L Normal 136-144 [facility] Comment on above: Order Comment: Speci men Type: BLOOD SPECIMEN Ordering Facility: [facility] Address: [address] [place] [address] Performed By: #### L [id number] #### [facility] CLIA [id number] [address] [place] [address] [place] Urea nitrogen [Mass/Vol] 26 mg/dL High 9-24 [facility] Comment on above: Order Comment: Speci men Type: BLOOD SPECIMEN Ordering Facility: [facility] Address: [address] [place] [address] Performed By: #### L [id number] #### [facility] CLIA [id number] [address] [place] [address] [place] Ferritin SerPl-mCncon 2023 Ferritin [Mass/Vol] 66.8 ng/mL Normal 30.3-565.7 [facility] Comment on above: Order Comment: Speci men Type: BLOOD SPECIMENOrdering Facility: [facility] Address: [address] [place] [address] Performed By: #### 5 0190-8, 2276-4, 2885-2 ####[facility] LABCLIA [id number] [place] [address] [place] IMMUNOFIXATION SCREEN, SERUM on 04-17-2024 INTERPRETATION (MPA) Atypical restricted bands are present in the IgG and lambda regions. Consistent with IgG lambda monoclonal gammopathy. Normal [facility] Comment on above: Order Comment: Speci men Type: BLOOD SPECIMENOrdering Facility: [facility] Address: [address] [place] [address] Performed By: #### I FES ####[facility] LABCLIA [id number] [place] [address] [place] MPA RESULT M protein is present. Abnormal No M protein is identified. [facility] Comment on above: Order Comment: Speci men Type: BLOOD SPECIMENOrdering Facility: [facility] Address: [address] [place] [address] Performed By: #### I FES ####[facility] LABIA [id number] OF [facility] STAFF REVIEW (MPA) Reviewed by Carolina mora M.D. Normal [facility] Comment on above: Order Comment: Speci men Type: BLOOD SPECIMENOrdering Facility: [facility] Address: [address] [place] [address] Performed By: #### I [facility] ####[facility] LABIA [id number] [place] [address] [place] IMMUNOGLOBULINS,IGG,IGA,IGMo n 04-17-2024 IgA [Mass/Vol] 45 mg/dL Low 70-400 [facility] Comment on above: Order Comment: Speci men Type: BLOOD SPECIMENOrdering Facility: [facility] Address: [address] [place] [address] Performed By: #### S ERIMM ####[facility] LABIA [id number] [place] [address] [place] IgG [Mass/Vol] 1722 mg/dL High 700-1600 [facility] Comment on above: Order Comment: Speci men Type: BLOOD SPECIMENOrdering Facility: [facility] Address: [address] [place] [address] Performed By: #### S ERIMM ####[facility] LABIA [id number] [place] [address] [place] IgM [Mass/Vol] 19 mg/dL Low 40-230 [facility] Comment on above: Order Comment: Speci men Type: BLOOD SPECIMENOrdering Facility: [facility] Address: [address] [place] [address] Performed By: #### S ERIMM ####[facility] LABIA [id number] [place] [address] [place] Iron and Iron binding capaci ty panelon 04-17-2024 Iron [Mass/Vol] 53 ug/dL Normal 41-186 [facility] Comment on above: Order Comment: Speci men Type: BLOOD SPECIMENOrdering Facility: [facility] Address: [address] [place] [address] Performed By: #### 5 0190-8, 2276-4, 2885-2 ####[facility] LABIA [id number] [address] [place] Iron binding capacity [Mass/Vol] 314 ug/dL Normal 232-386 [facility] Comment on above: Order Comment: Speci men Type: BLOOD SPECIMENOrdering Facility: [facility] Address: [address] [place] [address] Performed By: #### 5 0190-8, 2276-4, 2885-2 ####[facility] LABIA [id number] [address] [place] Iron/TIBC [Molar ratio] 16.9 % Normal 15.0-57.0 [facility] Comment on above: Order Comment: Speci men Type: BLOOD SPECIMENOrdering Facility: [facility] Address: [address] [place] [address] Performed By: #### 5 0190-8, 2276-4, 2885-2 ####[facility] LABIA [id number] [place] [address] [place] KAPPA/LOMBARDI,FREE,SERon 2023 Immunoglobulin light chains.kappa.free (S) [Mass/Vol] 15.5 mg/L Normal 3.3-19.4 [facility] Comment on above: Order Comment: Speci men Type: BLOOD SPECIMENOrdering Facility: [facility] Address: [address] [place] [address] Result Comment: Rare ly, increased serum free light chains levels may not be detected or accurately quantified due to prozone phenomenon or in high viscosity samples using this immunoturbidimetric assay. Correlation with other laboratory results and clinical findings is recommended. The [place] Free Light Chain was performed using the Binding Site Optilite immunoturbidimetric method. Result obtained with different assay methods or kits cannot be used interchangeably. Performed By: #### K LFRS ####[facility] LABCLIA [id number] [address] [place] Immunoglobulin light chains.kappa/Immunoglo bulin light chains.lambda (S) [Mass ratio] 0.51 Normal 0.26-1.65 [facility] Comment on above: Order Comment: Speci men Type: BLOOD SPECIMENOrdering Facility: [facility] Address: [address] [place] [address] Performed By: #### K LFRS ####[facility] LABIA [id number] [address] [place] Immunoglobulin light chains.lambda.free [Mass/Vol] 30.3 mg/L High 5.7-26.3 [facility] Comment on above: Order Comment: Speci men Type: BLOOD SPECIMENOrdering Facility: [facility] Address: [address] [place] [address] Result Comment: Rare ly, increased serum free light chains levels may not be detected or accurately quantified due to prozone phenomenon or in high viscosity samples using this immunoturbidimetric assay. Correlation with other laboratory results and clinical findings is recommended. The [place] Free Light Chain was performed using the Binding Site Optilite immunoturbidimetric method. Result obtained with different assay methods or kits cannot be used interchangeably. Performed By: #### K LFRS ####[facility] LABCLIA [id number] [address] [place] Laboratory - Hematology and Cell countson 04-17-2024 Basophils/100 WBC (Bld) 0.3 % [facility] Eosinophils/100 WBC (Bld) 2.8 % [facility] Erythrocyte distribution width (RBC) [Ratio] 16.8 % High 11.5 - 15.0 % [facility] Hematocrit (Bld) [Volume fraction] 31.4 % Low 39.0 - 51.0 % [facility] Hemoglobin (Bld) [Mass/Vol] 10.6 g/dL Low 13.0 - 17.0 g/dL [facility] Lymphocytes/100 WBC (Bld) 25.2 % [facility] MCH (RBC) [Entitic mass] 35.3 pg High 26.0 - 34.0 pg [facility] MCHC (RBC) [Mass/Vol] 33.8 g/dL 30.5 - 36.0 g/dL [facility] MCV (RBC) [Entitic vol] 104.7 fL High 80.0 - 100.0 fL [facility] Neutrophils/100 WBC (Bld) 60.4 % [facility] No Panel Informationon 04-17 Interpretation and review of laboratory results Abnormal [facility] PROTEIN ELECTROPHORESIS SERU M (P)on 04-17-2024 Albumin [Mass/Vol] 4.20 g/dL Normal 3.43-5.41 [facility] Comment on above: Order Comment: Speci men Type: BLOOD SPECIMENOrdering Facility: [facility] Address: [address] [place] [address] Performed By: #### L [id number] ####[facility] LABCLIA [id number] [place] [address] [place] Alpha 1 globulin Elph [Mass/Vol] 0.30 g/dL Normal 0.18-0.43 [facility] Comment on above: Order Comment: Speci men Type: BLOOD SPECIMENOrdering Facility: [facility] Address: [address] [place] [address] Performed By: #### L [id number] ####[facility] LABCLIA [id number] [place] [address] [place] Alpha 2 globulin Elph [Mass/Vol] 0.78 g/dL Normal 0.42-0.98 [facility] Comment on above: Order Comment: Speci men Type: BLOOD SPECIMENOrdering Facility: [facility] Address: [address] [place] [address] Performed By: #### L [id number] ####[facility] LABIA [id number] [address] [address] [place] Beta globulin Elph [Mass/Vol] 0.58 g/dL Low 0.61-1.17 [facility] Comment on above: Order Comment: Speci men Type: BLOOD SPECIMENOrdering Facility: [facility] Address: [address] [place] [address] Performed By: #### L [id number] ####[facility] LABIA [id number] [place] [address] [place] Gamma globulin Elph [Mass/Vol] 1.63 g/dL High 0.53-1.51 [facility] Comment on above: Order Comment: Speci men Type: BLOOD SPECIMENOrdering Facility: [facility] Address: [address] [place] [address] Performed By: #### L [id number] ####[facility] [id number] [place] [address] [place] INTERPRETATION COMMENT FOR PROTEIN ELECTROPHORESIS See separate immunofixation report for characterization of monoclonal gammopathy. Normal [facility] Comment on above: Order Comment: Speci men Type: BLOOD SPECIMENOrdering Facility: [facility] Address: [address] [place] [address] Performed By: #### L [id number] ####[facility] [id number] [place] [address] [place] M-PROTEIN LOCATION Gamma Fraction 1 Normal [facility] Comment on above: Order Comment: Speci men Type: BLOOD SPECIMENOrdering Facility: [facility] Address: [address] [place], [place] [address] Performed By: #### L [id number] ####[facility] LABIA [id number] [place] [id number] [place] Protein Fractions [Interp] An M protein is identified on protein electrophoresis. Abnormal No definitive M protein is identified on protein electrophor esis. [facility] Comment on above: Order Comment: Speci men Type: BLOOD SPECIMENOrdering Facility: [facility] Address: [address] [place] [address] Performed By: #### L [id number] ####[facility] LABIA [id number] [place] [address] [place] Protein.monoclonal Elph [Mass/Vol] 1.39 g/dL High <=0.00 [facility] Comment on above: Order Comment: Speci men Type: BLOOD SPECIMENOrdering Facility: [facility] Address: [address] [place] [address] Performed By: #### L [id number] ####[facility] [id number] [place] [address] [place] SPE STAFF REVIEW Reviewed by Carolina mora M.D. Normal [facility] Comment on above: Order Comment: Speci men Type: BLOOD SPECIMENOrdering Facility: [facility] Address: [address] [place] [address] Performed By: #### L [id number] ####[facility] [id number] [place] [address] [place] Prot SerPl-mCncon 04-17-2024 Protein [Mass/Vol] 7.5 g/dL Normal 6.3-8.0 [facility] Comment on above: Order Comment: Speci men Type: BLOOD SPECIMENOrdering Facility: [facility] Address: [address] [place] [address] Performed By: #### 5 0190-8, 2276-4, 2885-2 ####[facility] [id number] [address] [place] CNPAnnamaria 04-15-2024 CNPN Telephone (HEMTSA) -- RAGHAVENDRA HEARD ([id number]) 1945 M Date Time Provider Department 04/15/24 RHONA RUIZ During your visit today, we recorded the following information about you: Rhona Ruiz RN 04/15/2024 8:51 AM Signed ----- Message from Rita Galvez RN sent at 04/15/2024 8:27 AM EDT ----- ----- Message ----- From: Glenys Kurtz PA-C Sent: 04/14/2024 7:58 AM EDT To: [facility] Triage Pool Please call with stable CT chest Rhona Ruiz RN 04/15/2024 8:51 AM Signed Pt notified and verbalizes understanding. Rhona Ruiz RN Allergies As of Date: 04/15/2024 (No Known Allergies) Date Reviewed: 03/25/2024 Reviewed by: Amber Rodriguez APRN.REJECT OPENER AND FILLER - Fully Assessed Reason for Visit: Care Coordination [3530] Cmt: CT Results Prescriptions as of 04/15/2024 - clonazePAM (KLONOPIN) 1 mg tablet TAKE 1 TABLET BY MOUTH THREE TIMES A DAY NEEDED FOR UP TO 30 DAYS - HYDROcodone-acetaminophen (NORCO) 5-325 mg per tablet Take 2 tablets by mouth every 6 hours as needed. - DULoxetine (CYMBALTA) 60 mg capsule Take 1 capsule by mouth two times a day. - gabapentin (NEURONTIN) 300 mg capsule Take 2 capsules by mouth three times a day for 90 days. - docusate sodium (COLACE) 100 mg capsule Take 2 capsules by mouth two times a day. - HYDROcodone-acetaminophen (NORCO) 5-325 mg per tablet Take 2 tablets by mouth every 6 hours as needed. - meloxicam (MOBIC) 15 mg tablet take 1 tablet by mouth every day - furosemide (LASIX) 40 mg tablet - diazePAM (VALIUM) 5 mg tablet Take 1 tablet by mouth every 8 hours as needed for up to 120 days. - TRELEGY ELLIPTA 100-62.5-25 mcg inhalation powder INHALE 1 PUFF ONCE DAILY FOR 30 DAYS - nitroglycerin sublingual (NITROQUICK) 0.4 mg SL tablet Dissolve 1 tablet under the tongue every 5 minutes as needed. - senna (SENNA LAXATIVE) 8.6 mg tab Take 2 tablets by mouth two times a day. - albuterol (PROVENTIL) 2.5 mg /3 mL (0.083 %) nebulizer solution 2.5 mg every 4 hours as needed. - predniSONE (DELTASONE) 10 mg tablet Take 1 tablet by mouth once daily. Take 4 daily x 5 days, then 2 daily x 5 days, then 1 daily or as directed. - naloxone 4 mg/actuation nasal spray (NARCAN) Use 1 spray in one nostril as needed for overdose. May repeat every 2 to 3 min in alternating nostrils until medical assistance is available - finasteride (PROSCAR) 5 mg tablet - triamterene-hydroCHLOROthi azide (MAXZIDE-25) 37.5-25 mg per tablet TAKE 1 TABLET BY MOUTH EVERY DAY IN THE MORNING - metoprolol succinate ER (TOPROL XL) 25 mg 24 hr tablet Take 25 mg by mouth once daily. - mv-mn/iron/folic acid/herb 190 (VITAMIN D3 COMPLETE ORAL) Take by mouth. - ZINC ORAL Take by mouth. - tamsulosin ER (FLOMAX) 0.4 mg cap - Aspirin 81 mg CpDR Take 81 mg by mouth once daily. - atorvastatin 40 mg tablet Take 40 mg by mouth once daily. - DOCOSAHEXANOIC ACID/EPA (FISH OIL ORAL) Take by mouth. 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 0541 - CT CHEST WO IVCON / PROCEDURE REASON: Malignant neoplasm of unspecified part of unspecified bronchus or lung (HCC) * * * * Physician Interpretation * * * * RESULT: EXAMINATION: CHEST CT WITHOUT CONTRAST CLINICAL HISTORY: Malignant neoplasm of unspecified part of unspecified bronchus or lung (HCC) NSCLC Technique: Spiral CT acquisition of the chest from the thoracic inlet to the upper abdomen without contrast. MQ: CTCWOR_4 CT Dose-Length Product: 200 mGy*cm CT Dose Reduction Employed: Automated exposure control (AEC) Comparison: 10/20/2023 and 05/07/2023 RESULT: Lines, tubes, and devices: Right chest wall port tip at the right atrium. Lung parenchyma and airways: Trachea and central airways are patent. Scattered mucoid impactions within the lower lobes. Right upper lobectomy. Emphysematous changes. Radiation fibrosis within the right hilar region similar to prior. Unchanged 5 mm nodule left upper lobe (image 82). No new suspicious appearing pulmonary nodules. Pleural space: Pleural thickening bilaterally. Calcified right pleural plaques. No pleural effusion. Lower neck, lymph nodes, and mediastinum: No axillary, supraclavicular, mediastinal or hilar lymphadenopathy by CT size criteria. Heart, pericardium, and thoracic vessels: The heart is normal in size. No pericardial effusion. Main pulmonary artery is dilated measuring 3.4 cm. Thoracic aorta normal caliber. Atherosclerotic calcifications of the thoracic aorta and coronary arteries. Bones/Soft Tissues: No aggressive osseous lesions. Remote right-sided rib fractures. Upper abdomen: Visualized upper abdomen is grossly unremarkable. Pyrometallurgical Engineer (topogram) images: Unremarkable. IMPRESSION: Unchanged 5 mm left upper lobe nodule. Unchanged radiation fibrosis within the right lung. No thoracic lymphadenopathy. Transcribe Date/Time: Apr 10 2024 1:20P Dictated by: HENRY OLIVEIRA MD This examination was interpreted and the report reviewed and electronically signed by: HENRY OLIVEIRA MD on Apr 10 2024 1:28PM EST Thank you for allowing us to participate in the care of your patient. Should there be any questions regarding this interpretation, please call [phone]. If you are unable to reach us at the number above, please feel free to contact [facility] at [phone]. [id number] Normal [facility] CT Chest WO contraston 04-10 IMPRESSION: Unchanged 5 mm left upper lobe nodule. Unchanged radiation fibrosis within the right lung. No thoracic lymphadenopathy. Transcribe Date/Time: Apr 10 2024 1:20P Dictated by: HENRY OLIVEIRA MD This examination was interpreted and the report reviewed and electronically signed by: HENRY OLIVEIRA MD on Apr 10 2024 1:28PM EST Thank you for allowing us to participate in the care of your patient. Should there be any questions regarding this interpretation, please call [phone]. If you are unable to reach us at the number above, please feel free to contact [facility] at [phone]. DIVISION OF RADIOLOGY * * *Final Report* * * DATE OF EXAM: Apr 10 2024 9:07AM [facility] 0541 - CT CHEST WO IVCON / PROCEDURE REASON: Malignant neoplasm of unspecified part of unspecified bronchus or lung (HCC) * * * * Physician Interpretation * * * * RESULT: EXAMINATION: CHEST CT WITHOUT CONTRAST CLINICAL HISTORY: Malignant neoplasm of unspecified part of unspecified bronchus or lung (HCC) NSCLC Technique: Spiral CT acquisition of the chest from the thoracic inlet to the upper abdomen without contrast. MQ: CTCWOR_4 CT Dose-Length Product: 200 mGy*cm CT Dose Reduction Employed: Automated exposure control (AEC) Comparison: 10/20/2023 and 05/07/2023 RESULT: Lines, tubes, and devices: Right chest wall port tip at the right atrium. Lung parenchyma and airways: Trachea and central airways are patent. Scattered mucoid impactions within the lower lobes. Right upper lobectomy. Emphysematous changes. Radiation fibrosis within the right hilar region similar to prior. Unchanged 5 mm nodule left upper lobe (image 82). No new suspicious appearing pulmonary nodules. Pleural space: Pleural thickening bilaterally. Calcified right pleural plaques. No pleural effusion. Lower neck, lymph nodes, and mediastinum: No axillary, supraclavicular, mediastinal or hilar lymphadenopathy by CT size criteria. Heart, pericardium, and thoracic vessels: The heart is normal in size. No pericardial effusion. Main pulmonary artery is dilated measuring 3.4 cm. Thoracic aorta normal caliber. Atherosclerotic calcifications of the thoracic aorta and coronary arteries. Bones/Soft Tissues: No aggressive osseous lesions. Remote right-sided rib fractures. Upper abdomen: Visualized upper abdomen is grossly unremarkable. Pyrometallurgical Engineer (topogram) images: Unremarkable. DIVISION OF RADIOLOGY Provider, [facility] - 04/10/2024 * * *Final Report* * * DATE OF EXAM: Apr 10 2024 9:07AM [facility] 05[address] - CT CHEST WO IVCON / PROCEDURE REASON: Malignant neoplasm of unspecified part of unspecified bronchus or lung (HCC) * * * * Physician Interpretation * * * * RESULT: EXAMINATION: CHEST CT WITHOUT CONTRAST CLINICAL HISTORY: Malignant neoplasm of unspecified part of unspecified bronchus or lung (HCC) NSCLC Technique: Spiral CT acquisition of the chest from the thoracic inlet to the upper abdomen without contrast. MQ: CTCWOR_4 CT Dose-Length Product: 200 mGy*cm CT Dose Reduction Employed: Automated exposure control (AEC) Comparison: 10/20/2023 and 05/07/2023 RESULT: Lines, tubes, and devices: Right chest wall port tip at the right atrium. Lung parenchyma and airways: Trachea and central airways are patent. Scattered mucoid impactions within the lower lobes. Right upper lobectomy. Emphysematous changes. Radiation fibrosis within the right hilar region similar to prior. Unchanged 5 mm nodule left upper lobe (image 82). No new suspicious appearing pulmonary nodules. Pleural space: Pleural thickening bilaterally. Calcified right pleural plaques. No pleural effusion. Lower neck, lymph nodes, and mediastinum: No axillary, supraclavicular, mediastinal or hilar lymphadenopathy by CT size criteria. Heart, pericardium, and thoracic vessels: The heart is normal in size. No pericardial effusion. Main pulmonary artery is dilated measuring 3.4 cm. Thoracic aorta normal caliber. Atherosclerotic calcifications of the thoracic aorta and coronary arteries. Bones/Soft Tissues: No aggressive osseous lesions. Remote right-sided rib fractures. Upper abdomen: Visualized upper abdomen is grossly unremarkable. Pyrometallurgical Engineer (topogram) images: Unremarkable. IMPRESSION IMPRESSION: Unchanged 5 mm left upper lobe nodule. Unchanged radiation fibrosis within the right lung. No thoracic lymphadenopathy. Transcribe Date/Time: Apr 10 2024 1:20P Dictated by: HENRY OLIVEIRA MD This examination was interpreted and the report reviewed and electronically signed by: HENRY OLIVEIRA MD on Apr 10 2024 1:28PM EST Thank you for allowing us to participate in the care of your patient. Should there be any questions regarding this interpretation, please call [phone]. If you are unable to reach us at the number above, please feel free to contact [facility] at [phone]. [facility] Study observation (narrative) [facility] CT Chest WO contrastOrdered By: Ccf Provider on 04-10-2024 [facility] 03-25-2024 CNPN Telephone (PAMAVN) -- RAGHAVENDRA HEARD ([id number]) 1945 M Date Time Provider Department 03/25/24 LEXUS ALBERTS During your visit today, we recorded the following information about you: Bhargavi Bradley 03/25/2024 11:57 AM Signed Raghavendra is calling Lexus Alberts DO today to request Orders for TENS unit to be sent to [employer] on file. Patient states discussed at office visit yesterday. The one patient stated he has is from 2008 and does not work. Patient states they have 2 in stock and he would like the one that costs $55. Please advise. Patient has been identified by name and birthdate. Duration of symptoms: N/A Person calling: self Call patient at: on cell [phone] (home) [phone] (cell) Was an appointment scheduled: Yanira España RN 03/25/2024 12:07 PM Signed CHARLES: 03/24/24 PLAN: 1) Continue current medication regimen: Gabapentin 600 mg Take one(1) tablet three times daily. Duloxetine 30 mg twice daily #60 - refill x 5 2) Trial TENS unit for right chest wall pain. 3) Consider right intercostal nerve block or thoracic Interlaminar Epidural Steroid Injection in the future. 4) Return for office visit 6 months or sooner if needed. No appointments Flynn Hopkins PA-C 03/25/2024 12:32 PM Signed Prescription printed please fax to [employer] as requested. 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 - DULoxetine (CYMBALTA) 60 mg capsule Take 1 capsule by mouth two times a day. - gabapentin (NEURONTIN) 300 mg capsule Take 2 capsules by mouth three times a day for 90 days. - docusate sodium (COLACE) 100 mg capsule Take 2 capsules by mouth two times a day. - clonazePAM (KLONOPIN) 1 mg tablet TAKE 1 TABLET BY MOUTH THREE TIMES A DAY NEEDED FOR UP TO 30 DAYS - HYDROcodone-acetaminophen (NORCO) 5-325 mg per tablet Take 2 tablets by mouth every 6 hours as needed. - meloxicam (MOBIC) 15 mg tablet take 1 tablet by mouth every day - furosemide (LASIX) 40 mg tablet - diazePAM (VALIUM) 5 mg tablet Take 1 tablet by mouth every 8 hours as needed for up to 120 days. - TRELEGY ELLIPTA 100-62.5-25 mcg inhalation powder INHALE 1 PUFF ONCE DAILY FOR 30 DAYS - nitroglycerin sublingual (NITROQUICK) 0.4 mg SL tablet Dissolve 1 tablet under the tongue every 5 minutes as needed. - senna (SENNA LAXATIVE) 8.6 mg tab Take 2 tablets by mouth two times a day. - albuterol (PROVENTIL) 2.5 mg /3 mL (0.083 %) nebulizer solution 2.5 mg every 4 hours as needed. - predniSONE (DELTASONE) 10 mg tablet Take 1 tablet by mouth once daily. Take 4 daily x 5 days, then 2 daily x 5 days, then 1 daily or as directed. - naloxone 4 mg/actuation nasal spray (NARCAN) Use 1 spray in one nostril as needed for overdose. May repeat every 2 to 3 min in alternating nostrils until medical assistance is available - finasteride (PROSCAR) 5 mg tablet - triamterene-hydroCHLOROthi azide (MAXZIDE-25) 37.5-25 mg per tablet TAKE 1 TABLET BY MOUTH EVERY DAY IN THE MORNING - metoprolol succinate ER (TOPROL XL) 25 mg 24 hr tablet Take 25 mg by mouth once daily. - mv-mn/iron/folic acid/herb 190 (VITAMIN D3 COMPLETE ORAL) Take by mouth. - ZINC ORAL Take by mouth. - tamsulosin ER (FLOMAX) 0.4 mg cap - Aspirin 81 mg CpDR Take 81 mg by mouth once daily. - atorvastatin 40 mg tablet Take 40 mg by mouth once daily. - DOCOSAHEXANOIC ACID/EPA (FISH OIL ORAL) Take by mouth. 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/2021 Lung cancer (HCC) [C34.90] 05/03/2022 Malignant neoplasm of upper lobe of right lung *05/03/2022 Malnutrition of mild degree (HCC) [E44.1] 11/20/2022 Moderate major depression, single episode (HCC)*12/06/2022 Encounter Status:Closed by YANIRA RODARTE on 03/26/24 [facility] CNOVon 03-24-2024 CNOV Office Visit (PAMELIECERN ) -- RAGHAVENDRA HEARD ([id number]) 1945 M Date Time Provider Department 03/24/24 1:00 PM FLYNN HOPKINS During your visit today, we recorded the following information about you: Pulse Blood pressure Weight 55/minute 145/68 70 kg Flynn Hopkins PA-C 03/24/2024 1:54 PM Signed Pain Management Follow Up Visit Date: March 24, 2024 SUBJECTIVE Raghavendra Heard is a 79 year old male, who presents with chest. Intensity of pain: 6 on a scale of 0-10. Ranges from 1 to 10 on a scale of 0-10. Duration of pain: 5 Years ago, surgery. The pain is located Chest and radiates to the back on the right. Pain Description: Continuous ( it hurts ) Timing: constant Aggravating Factors: no change in pain symptoms with position or activity Alleviating Factors: Medication Interference with: physical activity. Review of Symptoms: GENERAL:No weight loss, malaise or fevers. GASTROINTESTINAL: Negative for abdominal discomfort, blood in stools or black stools or change in bowel habits GENITOURINARY: No history of dysuria, frequency or incontinence MUSCULOSKELETAL: see hpi NEUROLOGIC:Negative for focal numbness or weakness, headaches and dizziness or syncope. PREVIOUS TREATMENTS LASTING SIX WEEKS IN THE LAST SIX MONTHS Active conservative therapy lasting 6 weeks in the last six months (see below) 1. Physical therapy: No 2. Home exercise program after PT: No 3. Occupational therapy: No 4. A physician supervised home exercise program (HEP): No 5. Sterile Instrument Technician: No Passive conservative therapy lasting 6 weeks in the last six months (see below) 1. Medical devises: No 2. Acupuncture: No 3. Tens unit: No 4. Prescription pain medication: Yes 5. NSAIDS: No Lizeth Lau MA March 24, 2024 12:42 PM The subjective information: including chief complaint, and past medical history, was explored in detail with the patient and edited as needed and is complete. Flynn Hopkins PA-C March 24, 2024 CHARLES: 09/20/23 - Dr. Lexus Alberts PLAN: Stop Lyrica, restart Gabapentin 600mg TID Continue Duloxetine 60mg BID Defer hydrocodone to prescribing physician Questionnaires: Patient Entered Questionnaires PROMIS: 04/02/2023 PROMIS CAT Pain Interference PROMIS Adult Short Form-Global Health Score (Mental) 45.8 (Good) PROMIS Score Percentiles 09/11/2022 12/04/2022 04/02/2023 PROMIS Global Health Scale Physical Health Percentile 78 4 22* Mental Health Percentile 43 5 34 Percentiles provide an indication of how the patient's score ranks in relation to the general population. Higher percentile rankings indicate better function/quality of life. 50th percentile is the average of the general population and indicates half of respondents had a worse score. Depression Screenin01/08/2015 12/03/2015 PHQ-9 Score 3 0 12/03/2015 01/08/2015 PHQ-9 Self Harm Question 9 Not at all Not at all PHQ-9 Self-Harm (Item 9) response options: 0 Not at all 1 Several days 2 More than half the days 3 Nearly every day PHQ-9 Levels: 0-4 Minimal depression 5-9 Mild depression 10-14 Moderate depression 15-19 Moderately severe depression 20-27 Severe depression PHQ-9 Score 12/03/2015 0 01/08/2015 3 (0-4) minimal depression, (5-9) mild depression, (10-14) moderate depression, (15-19) moderately severe depression, (20-27) severe depression OARRS: PDMP website checked and validated. All prescriptions have been APPROPRIATELY filled. No suspicious activity was identified. - on March 24, 2024 by Flynn Hopkins PA-C - 03/07/24 gabapentin powder #12/15 days Prerna Grissom II, MD, - 02/29/24 gabapentin 300 mg #180/ days Ja Becker MD - 02/28/54 clonazepam 1 mg #90/30 days Glenys Kurtz PA-C - 02/19/24 Hydrocodone/Acetaminophen 5/325 mg #180/ days Ja Becker MD Physical Examination: BP 145/68 Pulse 55 Wt 154 lb 5.2 oz (70.0kg) General:well appearing, alert, and in no acute distress Skin: skin color, texture, turgor normal, no rashes or lesions HEENT: normocephalic, atraumatic, sclera non-icteric Lungs: Respirations even and non-labored. Musculoskeletal: - tenderness with palpation over the right mid and lower thoracic or lumbar paraspinal muscles and tenderness along the right anterior 7-10th ribs. Neurological: Mental Status: alert and oriented x 3 There are no sensory changes over the anterior or posterior right side chest wall Gait: Normal. HPI AND ASSESSMENT: Parts of this note were copied from the last office visit note by Dr. Lexus Alberts dated: 09/20/23, changes were made to appropriately reflect updated history and interval events, physical exam, data review, and medical decision making. Raghavendra Heard is a 79 year old male, PMHX - lung cancer, multiple myeloma, hypertension, hyperlipidemia, and chronic right sided chest wall pain in the (more content not included)... Normal [facility] MR PROSTATE W WO CONTon 09-2 MR PROSTATE W WO CONT MR PROSTATE W WO C ONT CLINICAL INFORMATION: Elevated PSA. TECHNIQUE: Multisequence multiplanar MRI of the prostate without and with contrast in accordance with PI-RADS technical recommendations. COMPARISON: No relevant prior studies available. FINDINGS: Size: 3.6 x 3.6?x 2.5 cm Volume: 17 mL PSA Density: 0.13 ng/mL^2 PERIPHERAL ZONE: Linear T2 striations about diffusion-weighted abnormality. TRANSITIONAL ZONE: There is multinodular enlargement of the transition zone, in keeping with BPH changes. Neurovascular Bundles: Symmetric Seminal Vesicles: Symmetric Pelvic Lymph Nodes: No enlarged pelvic lymph nodes Bones: Degenerative changes Other findings: A few colonic diverticula are seen IMPRESSION: * PI-RADS 2: Low (clinically significant cancer is unlikely to present). No MRI findings specific for high risk prostate neoplasm. Finalized by Stuart Ramos MD on 03/24/2024 9:15 AM [facility] 03-14-2024 [facility] Telephone (HEMASA) -- RAGHAVENDRA HEARD ([id number]) 1945 M Date Time Provider Department 03/14/24 YANIRA PLASENCIA During your visit today, we recorded the following information about you: Yanira Plasencia LSW 03/14/2024 10:44 AM Signed SOCIAL WORK FOLLOW UP NOTE: [facility] Date of service:03/14/24 TOPICS ADDRESSED: community resources PLAN: Assist with financial support applications and Continue follow up as needed Assigned SW listed in Care Team tab: Yes Patient has re-applied for the [facility]'s Cancer Care Fund. Sugar from the [facility] asked this SW to complete the Physician Authorization section of the application and fax it back to her. Form was completed and faxed. BERNICE Squires-Jose Allergies As of Date: 03/14/2024 (No Known Allergies) Date Reviewed: 02/29/2024 Reviewed by: Glenys Kurtz PA-C - Fully Assessed Prescriptions as of 03/14/2024 - docusate sodium (COLACE) 100 mg capsule Take 2 capsules by mouth two times a day. - clonazePAM (KLONOPIN) 1 mg tablet TAKE 1 TABLET BY MOUTH THREE TIMES A DAY NEEDED FOR UP TO 30 DAYS - HYDROcodone-acetaminophen (NORCO) 5-325 mg per tablet Take 2 tablets by mouth every 6 hours as needed. - meloxicam (MOBIC) 15 mg tablet take 1 tablet by mouth every day - furosemide (LASIX) 40 mg tablet - gabapentin (NEURONTIN) 300 mg capsule Take 2 capsules by mouth three times a day for 90 days. - diazePAM (VALIUM) 5 mg tablet Take 1 tablet by mouth every 8 hours as needed for up to 120 days. - TRELEGY ELLIPTA 100-62.5-25 mcg inhalation powder INHALE 1 PUFF ONCE DAILY FOR 30 DAYS - nitroglycerin sublingual (NITROQUICK) 0.4 mg SL tablet Dissolve 1 tablet under the tongue every 5 minutes as needed. - senna (SENNA LAXATIVE) 8.6 mg tab Take 2 tablets by mouth two times a day. - albuterol (PROVENTIL) 2.5 mg /3 mL (0.083 %) nebulizer solution 2.5 mg every 4 hours as needed. - DULoxetine (CYMBALTA) 60 mg capsule Take 1 capsule by mouth two times a day. - predniSONE (DELTASONE) 10 mg tablet Take 1 tablet by mouth once daily. Take 4 daily x 5 days, then 2 daily x 5 days, then 1 daily or as directed. - naloxone 4 mg/actuation nasal spray (NARCAN) Use 1 spray in one nostril as needed for overdose. May repeat every 2 to 3 min in alternating nostrils until medical assistance is available - finasteride (PROSCAR) 5 mg tablet - triamterene-hydroCHLOROthi azide (MAXZIDE-25) 37.5-25 mg per tablet TAKE 1 TABLET BY MOUTH EVERY DAY IN THE MORNING - metoprolol succinate ER (TOPROL XL) 25 mg 24 hr tablet Take 25 mg by mouth once daily. - mv-mn/iron/folic acid/herb 190 (VITAMIN D3 COMPLETE ORAL) Take by mouth. - ZINC ORAL Take by mouth. - tamsulosin ER (FLOMAX) 0.4 mg cap - Aspirin 81 mg CpDR Take 81 mg by mouth once daily. - atorvastatin 40 mg tablet Take 40 mg by mouth once daily. - DOCOSAHEXANOIC ACID/EPA (FISH OIL ORAL) Take by mouth. 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 Confirmed w/ [facility] that the pt's current Valium script has refills remaining. Pt notified. Also notified pt that his request for [place] is too soon. Last RX was written on 01/21/24 for a 30 day supply. Pt verbalizes understanding and will call back next week. Rhona Ruiz RN Allergies As of Date: 02/15/2024 (No Known Allergies) Date Reviewed: 2024 Reviewed by: Glenys Kurtz PA-C - Fully Assessed Reason for Visit: Care Coordination [0989] Cmt: Medication Requests Prescriptions as of 02/15/2024 - clonazePAM (KLONOPIN) 1 mg tablet TAKE 1 TABLET BY MOUTH THREE TIMES A DAY NEEDED FOR UP TO 30 DAYS - HYDROcodone-acetaminophen (NORCO) 5-325 mg per tablet Take 2 tablets by mouth every 6 hours as needed for up to 30 days. - furosemide (LASIX) 40 mg tablet - gabapentin (NEURONTIN) 300 mg capsule Take 2 capsules by mouth three times a day for 90 days. - diazePAM (VALIUM) 5 mg tablet Take 1 tablet by mouth every 8 hours as needed for up to 120 days. - meloxicam (MOBIC) 15 mg tablet Take 1 tablet by mouth every afternoon. - TRELEGY ELLIPTA 100-62.5-25 mcg inhalation powder INHALE 1 PUFF ONCE DAILY FOR 30 DAYS - nitroglycerin sublingual (NITROQUICK) 0.4 mg SL tablet Dissolve 1 tablet under the tongue every 5 minutes as needed. - senna (SENNA LAXATIVE) 8.6 mg tab Take 2 tablets by mouth two times a day. - docusate sodium (COLACE) 100 mg capsule Take 2 capsules by mouth two times a day. - albuterol (PROVENTIL) 2.5 mg /3 mL (0.083 %) nebulizer solution 2.5 mg every 4 hours as needed. - DULoxetine (CYMBALTA) 60 mg capsule Take 1 capsule by mouth two times a day. - predniSONE (DELTASONE) 10 mg tablet Take 1 tablet by mouth once daily. Take 4 daily x 5 days, then 2 daily x 5 days, then 1 daily or as directed. - naloxone 4 mg/actuation nasal spray (NARCAN) Use 1 spray in one nostril as needed for overdose. May repeat every 2 to 3 min in alternating nostrils until medical assistance is available - finasteride (PROSCAR) 5 mg tablet - triamterene-hydroCHLOROthi azide (MAXZIDE-25) 37.5-25 mg per tablet TAKE 1 TABLET BY MOUTH EVERY DAY IN THE MORNING - metoprolol succinate ER (TOPROL XL) 25 mg 24 hr tablet Take 25 mg by mouth once daily. - mv-mn/iron/folic acid/herb 190 (VITAMIN D3 COMPLETE ORAL) Take by mouth. - ZINC ORAL Take by mouth. - tamsulosin ER (FLOMAX) 0.4 mg cap - Aspirin 81 mg CpDR Take 81 mg by mouth once daily. - atorvastatin 40 mg tablet Take 40 mg by mouth once daily. - DOCOSAHEXANOIC ACID/EPA (FISH OIL ORAL) Take by mouth. 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] 01/10/2021 Lung cancer (HCC) [C34.90] 05/03/2022 Malignant neoplasm of upper lobe of right lung *05/03/2022 Malnutrition of mild degree (HCC) [E44.1] 11/20/2022 Moderate major depression, single episode (HCC)*12/06/2022 Encounter Status:Closed by RHONA RUIZ on 02/15/24 Normal [facility] Office Visiton 01-30-2024 Follow-up visit [id number] Raghavendra Heard 1945 M Date Provider Department Center 01/30/2024 [facility] Family History Problem Relation Age of Onset Diabetes Other Other Other Family Status - Relation Status Age at Other Level of Service:[address] [place] OFFICE/OUTPATIENT ESTABLISHED LOW MDM 20 MIN Normal [facility] Basic metabolic panel (Bld)O rdered By: Virginie Gonzalez on 2024 Anion gap (Bld) [Moles/Vol] 8 mmol/L 0 - 15 mmol/L [facility] Calcium.ionized (Bld) [Moles/Vol] 1.18 mmol/L 1.12 - 1.32 mmol/L [facility] Comment on above: Please note: This va lue represents ionized calcium not total calcium. Chloride [Moles/Vol] 104 mmol/L 98 - 10 9 mmol/L [facility] CO2 [Moles/Vol] 27 mmol/L 24 - 29 mmol/L [facility] Creatinine [Mass/Vol] 1.00 mg/dL 0.60 - 1.30 mg/dL [facility] GFR/1.73 sq M.predicted among non-blacks MDRD (S/P/Bld) [Vol rate/Area] 78 mL/min/{1.73_m2} - PINF [facility] Comment on above: Estimated Glomerular Filtration Rate (eGFR) is calculated using the 2020 CKD-EPI creatinine equation. This equation utilizes serum creatinine, sex, and age as parameters. The creatinine assay has traceable calibration to isotope dilution-mass spectrometry. Refer to KDIGO guidelines for clinical interpretation. In patients with unstable renal function, e.g. those with acute kidney injury, the eGFR may not accurately reflect actual GFR. Glucose [Mass/Vol] 100 mg/dL 70 - 105 mg/dL [facility] Interpretation and review of laboratory results Normal [facility] Potassium [Moles/Vol] 4.1 mmol/L 3.5 - 4.9 mmol/L [facility] Sodium [Moles/Vol] 139 mmol/L 138 - 146 mmol/L [facility] Urea nitrogen [Mass/Vol] 21 mg/dL 8 - 26 mg/dL [facility] Basic metabolic panel (Bld)o n 2024 Anion gap (Bld) [Moles/Vol] 8 mmol/L Normal 0-15 [facility] Comment on above: Order Comment: Julio gilbert Type: BLOOD SPECIMEN Ordering Facility: [facility] Address: [address] [place] [address] Performed By: #### L [id number] #### [facility] CLIA [id number] [address] [place] [address] [place] Calcium.ionized (Bld) [Moles/Vol] 1.18 mmol/L Normal 1.12-1.32 [facility] Comment on above: Order Comment: Julio gilbert Type: BLOOD SPECIMEN Ordering Facility: [facility] Address: [address] [place] [address] Result Comment: Plea se note: This value represents ionized calcium not total calcium. Performed By: #### L [id number] #### [facility] CLIA [id number] [address] [place] [address] [place] Chloride [Moles/Vol] 104 mmol/L Normal 98-109 [facility] Comment on above: Order Comment: Julio gilbert Type: BLOOD SPECIMEN Ordering Facility: [facility] Address: [address] [place] [address] Performed By: #### L [id number] #### [facility] CLIA [id number] [address] [place] [address] [place] CO2 [Moles/Vol] 27 mmol/L Normal 24-29 [facility] Comment on above: Order Comment: Speci men Type: BLOOD SPECIMEN Ordering Facility: [facility] Address: [address] [place] [address] Performed By: #### L [id number] #### [facility] CLIA [id number] [address] [place] [address] [place] Creatinine [Mass/Vol] 1.00 mg/dL Normal 0.60-1.30 [facility] Comment on above: Order Comment: Speci men Type: BLOOD SPECIMEN Ordering Facility: [facility] Address: [address] [place] [address] Performed By: #### L [id number] #### [facility] CLIA [id number] [address] [place] [address] [place] GFR/1.73 sq M.predicted among non-blacks MDRD (S/P/Bld) [Vol rate/Area] 78 mL/min/1.73m??? Normal >=60 [facility] Comment on above: Order Comment: Speci men Type: BLOOD SPECIMEN Ordering Facility: [facility] Address: [address] [place] [address] Result Comment: Carol mated Glomerular Filtration Rate (eGFR) is calculated using the 2020 CKD-EPI creatinine equation. This equation utilizes serum creatinine, sex, and age as parameters. The creatinine assay has traceable calibration to isotope dilution-mass spectrometry. Refer to KDIGO guidelines for clinical interpretation. In patients with unstable renal function, e.g. those with acute kidney injury, the eGFR may not accurately reflect actual GFR. Performed By: #### L [id number] #### [facility] CLIA [id number] [address] [id number] [address] [place] Glucose [Mass/Vol] 100 mg/dL Normal 70-105 [facility] Comment on above: Order Comment: Speci men Type: BLOOD SPECIMEN Ordering Facility: [facility] Address: [address] [place] [address] Performed By: #### L [id number] #### [facility] CLIA [id number] [address] [place] [address] [place] Potassium [Moles/Vol] 4.1 mmol/L Normal 3.5-4.9 [facility] Comment on above: Order Comment: Speci men Type: BLOOD SPECIMEN Ordering Facility: [facility] Address: [address] [place] [address] Performed By: #### L [id number] #### [facility] CLIA [id number] [address] [place] [address] [place] Sodium [Moles/Vol] 139 mmol/L Normal 138-146 [facility] Comment on above: Order Comment: Speci men Type: BLOOD SPECIMEN Ordering Facility: [facility] Address: [address] [place] [address] Performed By: #### L [id number] #### [facility] CLIA [id number] [address] [place] [address] [place] Urea nitrogen [Mass/Vol] 21 mg/dL Normal 8-26 [facility] Comment on above: Order Comment: Speci men Type: BLOOD SPECIMEN Ordering Facility: [facility] Address: [address] [place] [address] Performed By: #### L [id number] #### [facility] CLIA [id number] [address] [place] [address] [place] CBC W Auto Differential pane l (Bld)on 2024 Basophils (Bld) [#/Vol] 0.05 10*3/uL NINF [facility] Basophils/100 WBC (Bld) 1.1 % [facility] Differential cell count method Nom (Bld) Auto [facility] Eosinophils (Bld) [#/Vol] 0.21 10*3/uL [facility] Eosinophils/100 WBC (Bld) 4.4 % [facility] Erythrocyte distribution width (RBC) [Ratio] 15.0 % 11.5 - 15.0 % [facility] Hematocrit (Bld) [Volume fraction] 30.4 % Low 39.0 - 51.0 % [facility] Hemoglobin (Bld) [Mass/Vol] 10.0 g/dL Low 13.0 - 17.0 g/dL [facility] Immature granulocytes (Bld) [#/Vol] [facility] Immature granulocytes/100 WBC (Bld) 0.2 % [facility] Interpretation and review of laboratory results Abnormal [facility] Lymphocytes (Bld) [#/Vol] 1.65 10*3/uL [facility] Lymphocytes/100 WBC (Bld) 34.7 % [facility] MCH (RBC) [Entitic mass] 35.0 pg High 26.0 - 34.0 pg [facility] MCHC (RBC) [Mass/Vol] 32.9 g/dL 30.5 - 36.0 g/dL [facility] MCV (RBC) [Entitic vol] 106.3 fL High 80.0 - 100.0 fL [facility] Monocytes (Bld) [#/Vol] 0.53 10*3/uL [facility] Monocytes/100 WBC (Bld) 11.1 % [facility] Neutrophils (Bld) [#/Vol] 2.31 10*3/uL [facility] Neutrophils/100 WBC (Bld) 48.5 % [facility] Nucleated RBC (Bld) [#/Vol] [facility] Nucleated RBC/100 WBC (Bld) [Ratio] 0.0 % /100 WBC [facility] Platelet mean volume (Bld) [Entitic vol] 9.8 fL 9.0 - 12.7 fL [facility] Platelets (Bld) [#/Vol] 207 10*3/uL [facility] RBC (Bld) [#/Vol] 2.86 10*6/uL Low 4.20 - 6.0 0 m/uL [facility] WBC (Bld) [#/Vol] 4.76 10*3/uL [facility] Basophils (Bld) [#/Vol] 0.05 10*3/uL Normal <0.11 [facility] Comment on above: Order Comment: Speci men Type: BLOOD SPECIMEN Ordering Facility: [facility] Address: [address] [place] [address] Performed By: #### 5 7021-8 #### [facility] CLIA [id number] [address] [place] [address] 89259 Basophils/100 WBC (Bld) 1.1 % Normal [facility] Comment on above: Order Comment: Speci men Type: BLOOD SPECIMEN Ordering Facility: [facility] Address: [address] [place] [address] Performed By: #### 5 7021-8 #### [facility] CLIA [id number] [address] [place] [address] 27524 Differential cell count method Nom (Bld) Auto Normal [facility] Comment on above: Order Comment: Speci men Type: BLOOD SPECIMEN Ordering Facility: [facility] Address: [address] [place] [address] Performed By: #### 5 7021-8 #### [facility] CLIA [id number] [address] [place] [address] 21069 Eosinophils (Bld) [#/Vol] 0.21 10*3/uL Normal <0.46 [facility] Comment on above: Order Comment: Speci men Type: BLOOD SPECIMEN Ordering Facility: [facility] Address: [address] [place] [address] Performed By: #### 5 7021-8 #### [facility] CLIA [id number] [address] [place] [address] 63843 Eosinophils/100 WBC (Bld) 4.4 % Normal [facility] Comment on above: Order Comment: Speci men Type: BLOOD SPECIMEN Ordering Facility: [facility] Address: [address] [place] [address] Performed By: #### 5 7021-8 #### [facility] CLIA [id number] [address] [place] [address] 14674 Erythrocyte distribution width (RBC) [Ratio] 15.0 % Normal 11.5-15.0 [facility] Comment on above: Order Comment: Speci men Type: BLOOD SPECIMEN Ordering Facility: [facility] Address: [address] [place] [address] Performed By: #### 5 7021-8 #### [facility] CLIA [id number] [address] [place] [address] 30146 Hematocrit (Bld) [Volume fraction] 30.4 % Low 39.0-51.0 [facility] Comment on above: Order Comment: Speci men Type: BLOOD SPECIMEN Ordering Facility: [facility] Address: [address] [place] [address] Performed By: #### 5 7021-8 #### [facility] CLIA [id number] [address] [place] [address] 27582 Hemoglobin (Bld) [Mass/Vol] 10.0 g/dL Low 13.0-17.0 [facility] Comment on above: Order Comment: Speci men Type: BLOOD SPECIMEN Ordering Facility: [facility] Address: [address] [place] [address] Performed By: #### 5 7021-8 #### [facility] CLIA [id number] [address] [place] [address] 67205 Immature granulocytes (Bld) [#/Vol] 10*3/uL Normal <0.10 [facility] Comment on above: Order Comment: Speci men Type: BLOOD SPECIMEN Ordering Facility: [facility] Address: [address] [place] [address] Performed By: #### 5 7021-8 #### [facility] CLIA [id number] [address] [place] [address] 67387 Immature granulocytes/100 WBC (Bld) 0.2 % Normal [facility] Comment on above: Order Comment: Speci men Type: BLOOD SPECIMEN Ordering Facility: [facility] Address: [address] [place] [address] Performed By: #### 5 7021-8 #### [facility] CLIA [id number] [address] [place] [address] 56357 Lymphocytes (Bld) [#/Vol] 1.65 10*3/uL Normal 1.00-4.00 [facility] Comment on above: Order Comment: Speci men Type: BLOOD SPECIMEN Ordering Facility: [facility] Address: [address] [place] [address] Performed By: #### 5 7021-8 #### [facility] CLIA [id number] [address] [place] [address] 42667 Lymphocytes/100 WBC (Bld) 34.7 % Normal [facility] Comment on above: Order Comment: Speci men Type: BLOOD SPECIMEN Ordering Facility: [facility] Address: [address] [place] [address] Performed By: #### 5 7021-8 #### [facility] CLIA [id number] [address] [place] [address] 88672 MCH (RBC) [Entitic mass] 35.0 pg High 26.0-34.0 [facility] Comment on above: Order Comment: Speci men Type: BLOOD SPECIMEN Ordering Facility: [facility] Address: [address] [place] [address] Performed By: #### 5 7021-8 #### [facility] CLIA [id number] [address] [place] [address] 64822 MCHC (RBC) [Mass/Vol] 32.9 g/dL Normal 30.5-36.0 [facility] Comment on above: Order Comment: Speci men Type: BLOOD SPECIMEN Ordering Facility: [facility] Address: [address] [place] [address] Performed By: #### 5 7021-8 #### [facility] CLIA [id number] [address] [place] [address] 60059 MCV (RBC) [Entitic vol] 106.3 fL High 80.0-100.0 [facility] Comment on above: Order Comment: Speci men Type: BLOOD SPECIMEN Ordering Facility: [facility] Address: [address] [place] [address] Performed By: #### 5 7021-8 #### [facility] CLIA [id number] [address] [place] [address] 94929 Monocytes (Bld) [#/Vol] 0.53 10*3/uL Normal <0.87 [facility] Comment on above: Order Comment: Speci men Type: BLOOD SPECIMEN Ordering Facility: [facility] Address: [address] [place] [address] Performed By: #### 5 7021-8 #### [facility] CLIA [id number] [address] [place] [address] 35300 Monocytes/100 WBC (Bld) 11.1 % Normal [facility] Comment on above: Order Comment: Speci men Type: BLOOD SPECIMEN Ordering Facility: [facility] Address: [address] [place] [address] Performed By: #### 5 7021-8 #### [facility] CLIA [id number] [address] [place] [address] 14175 Neutrophils (Bld) [#/Vol] 2.31 10*3/uL Normal 1.45-7.50 [facility] Comment on above: Order Comment: Speci men Type: BLOOD SPECIMEN Ordering Facility: [facility] Address: [address] [place] [address] Performed By: #### 5 7021-8 #### [facility] CLIA [id number] [address] [place] [address] 45765 Neutrophils/100 WBC (Bld) 48.5 % Normal [facility] Comment on above: Order Comment: Speci men Type: BLOOD SPECIMEN Ordering Facility: [facility] Address: [facility] [place] [address] Performed By: #### 5 7021-8 #### [facility] CLIA [id number] [address] [place] [address] 04422 Nucleated RBC (Bld) [#/Vol] 10*3/uL Normal <0.01 [facility] Comment on above: Order Comment: Speci men Type: BLOOD SPECIMEN Ordering Facility: [facility] Address: [address] [place] [address] Performed By: #### 5 7021-8 #### [facility] CLIA [id number] [address] [place] [address] 67549 Nucleated RBC/100 WBC (Bld) [Ratio] 0.0 /100 WBC Normal [facility] Comment on above: Order Comment: Speci men Type: BLOOD SPECIMEN Ordering Facility: [facility] Address: [address] [place] [address] Performed By: #### 5 7021-8 #### [facility] CLIA [id number] [address] [place] [address] 85913 Platelet mean volume (Bld) [Entitic vol] 9.8 fL Normal 9.0-12.7 [facility] Comment on above: Order Comment: Speci men Type: BLOOD SPECIMEN Ordering Facility: [facility] Address: [address] [place] [address] Performed By: #### 5 7021-8 #### [facility] CLIA [id number] [address] [place] [address] 93500 Platelets (Bld) [#/Vol] 207 10*3/uL Normal 150-400 [facility] Comment on above: Order Comment: Speci men Type: BLOOD SPECIMEN Ordering Facility: [facility] Address: [address] [place] [address] 42054 Performed By: #### 5 7021-8 #### [facility] CLIA [id number] [address] [place] [address] 01804 RBC (Bld) [#/Vol] 2.86 10*6/uL Low 4.20-6.00 [facility] Comment on above: Order Comment: Speci men Type: BLOOD SPECIMEN Ordering Facility: [facility] Address: [address] [place] [address] Performed By: #### 5 7021-8 #### [facility] CLIA [id number] [address] [place] [address] WBC (Bld) [#/Vol] 4.76 10*3/uL Normal 3.70-11.00 [facility] Comment on above: Order Comment: Speci men Type: BLOOD SPECIMEN Ordering Facility: [facility] Address: [facility] [place] [address] Performed By: #### 5 7021-8 #### [facility] CLIA [id number] [address] [place] [address] CNOVSPon 2024 CNOVSP Visit (SP) Office ([facility]) -- RAGHAVENDRA HEARD ([id number]) 1945 M Date Time Provider Department 01/17/24 10:00 AM GLENYS KURTZ During your visit today, we recorded the following information about you: Temperature Pulse Respiration Blood pressure 97.1 degrees 64/minute 18/minute 124/73 Weight 69.2 kg Glenys Kurtz PA-C 2024 10:54 AM Signed PATIENT NAME: Raghavendra Heard DATE: 2024 PRIMARY CARE PHYSICIAN: Dr. Prerna Grissom II OTHER PHYSICIANS: Dr. Toledo (Cardiology [facility]), Dr. Zhang, Dr. Hernández (Wardrobe Manager in [place]), Dr. Stinson (Thoracic Surgery in [place]), Dr. Alberts (Elements copied from Dr. Becker's note dated October 29, 2023, have been reviewed and updated where appropriate, and all reflect current assessment and medical decision making during today's encounter, 2024) CC: This is a 78 year old male with a history of recurrent lung cancer and multiple myeloma, seen for for scheduled follow-up. INTERIM HISTORY: Mr. Heard returns for follow up. He had pneumonia and was hospitalized for 5 days, November 06-2023 at [facility]. Then he got a URI and saw pulmonology January 01, 2024 who gave him an antibiotic and Prednisone 30 mg for 4 days. He didn't get any better so he went back to pulmonology and he is back on a taper of Prednisone and a sputum test. He is coughing and chest congestion. Today he sounds better. His pain remains controlled. He has no other new issues. MEDICATIONS: gabapentin (NEURONTIN) 300 mg capsule Take 2 capsules by mouth three times a day for 90 days. clonazePAM (KLONOPIN) 1 mg tablet TAKE 1 TABLET BY MOUTH THREE TIMES A DAY NEEDED FOR UP TO 30 DAYS HYDROcodone-acetaminophen (NORCO) 5-325 mg per tablet Take 2 tablets by mouth every 6 hours as needed for up to 30 days. diazePAM (VALIUM) 5 mg tablet Take 1 tablet by mouth every 8 hours as needed for up to 120 days. meloxicam (MOBIC) 15 mg tablet Take 1 tablet by mouth every afternoon. TRELEGY ELLIPTA 100-62.5-25 mcg inhalation powder INHALE 1 PUFF ONCE DAILY FOR 30 DAYS nitroglycerin sublingual (NITROQUICK) 0.4 mg SL tablet Dissolve 1 tablet under the tongue every 5 minutes as needed. senna (SENNA LAXATIVE) 8.6 mg tab Take 2 tablets by mouth two times a day. docusate sodium (COLACE) 100 mg capsule Take 2 capsules by mouth two times a day. albuterol (PROVENTIL) 2.5 mg /3 mL (0.083 %) nebulizer solution 2.5 mg every 4 hours as needed. ANORO ELLIPTA 62.5-25 mcg/actuation inhaler INHALE 1 PUFF INTO THE LUNGS EVERY DAY FOR 90 DAYS DULoxetine (CYMBALTA) 60 mg capsule Take 1 capsule by mouth two times a day. predniSONE (DELTASONE) 10 mg tablet Take 1 tablet by mouth once daily. Take 4 daily x 5 days, then 2 daily x 5 days, then 1 daily or as directed. naloxone 4 mg/actuation nasal spray (NARCAN) Use 1 spray in one nostril as needed for overdose. May repeat every 2 to 3 min in alternating nostrils until medical assistance is available finasteride (PROSCAR) 5 mg tablet triamterene-hydroCHLOROthi azide (MAXZIDE-25) 37.5-25 mg per tablet TAKE 1 TABLET BY MOUTH EVERY DAY IN THE MORNING ondansetron (ZOFRAN) 8 mg tablet Take 1 tablet by mouth every 8 hours as needed for nausea/vomiting. prochlorperazine (COMPAZINE) 10 mg tablet Take 1 tablet by mouth every 6 hours as needed. metoprolol succinate ER (TOPROL XL) 25 mg 24 hr tablet Take 25 mg by mouth once daily. mv-mn/iron/folic acid/herb 190 (VITAMIN D3 COMPLETE ORAL) Take by mouth. ZINC ORAL Take by mouth. tamsulosin ER (FLOMAX) 0.4 mg cap Aspirin 81 mg CpDR Take 81 mg by mouth once daily. atorvastatin 40 mg tablet Take 40 mg by mouth once daily. DOCOSAHEXANOIC ACID/EPA (FISH OIL ORAL) Take by mouth. ALLERGIES: Patient has no known allergies. PAST MEDICAL HISTORY: PAST MEDICAL HISTORY Diagnosis Date Anxiety Enlarged prostate HTN (hypertension) Hypercholesteremia Multiple myeloma, without mention of having achieved remission PAST SURGICAL HISTORY: PAST SURGICAL HISTORY Procedure Laterality Date REMOVAL OF LUNG,LOBECTOMY Right 04/24/2019 right upper lobe REVIEW OF SYSTEMS: As above. PHYSICAL EXAM: Vitals: BP 124/73 Pulse 64 Temp 36.2 ?C (97.1 ?F) (Temporal) Resp 18 Wt 69.2 kg (152 lb 8.9 oz) SpO2 97% BMI 23.20 kg/m? ECOG 1 General: Alert and oriented, no distress, pleasant and cooperative. Heart: Regular, normal S1 and S2, no murmurs, rubs, or gallops Lungs: Expiratory wheezing in both lungs. Abdomen: Benign Extremities: Feet/ankles without edema, posterior tibial pulses full and symmetrical PATHOLOGY: 06/14/2022 Lymph node, 10 R, EBUS transbronchial biopsy Adenocarcinoma. Immunohistochemistry: PD-L1 expression less than 1% ALK rearrangement 0% BRAF - No variant detected [Reference Sequence: ([id number])]. EGFR - No variant detected [Reference Sequence: (NM_00 (more content not included)... Normal [facility] metabolic 2000 panelOrdered By: Virginie Gonzalez on 2024 Albumin [Mass/Vol] 4.0 g/dL 3.9 - 4.9 g/dL [facility] ALP [Catalytic activity/Vol] 66 U/L 38 - 113 U/L [facility] ALT [Catalytic activity/Vol] 14 U/L 10 - 54 U/L [facility] Anion gap [Moles/Vol] 3 mmol/L Low 8 - 15 mmol/L [facility] AST [Catalytic activity/Vol] 18 U/L 14 - 40 U/L [facility] Bilirubin [Mass/Vol] 0.2 mg/dL 0.2 - 1 .3 mg/dL [facility] Calcium [Mass/Vol] 9.4 mg/dL 8.5 - 10. 2 mg/dL [facility] Chloride [Moles/Vol] 104 mmol/L 98 - 10 7 mmol/L [facility] CO2 [Moles/Vol] 28 mmol/L 22 - 30 mmol/L [facility] Creatinine [Mass/Vol] 0.95 mg/dL 0.73 - 1.22 mg/dL [facility] GFR/1.73 sq M.predicted among non-blacks MDRD (S/P/Bld) [Vol rate/Area] 83 mL/min/{1.73_m2} - PINF [facility] Comment on above: Estimated Glomerular Filtration Rate (eGFR) is calculated using the 2020 CKD-EPI creatinine equation. This equation utilizes serum creatinine, sex, and age as parameters. The creatinine assay has traceable calibration to isotope dilution-mass spectrometry. Refer to KDIGO guidelines for clinical interpretation. In patients with unstable renal function, e.g. those with acute kidney injury, the eGFR may not accurately reflect actual GFR. Glucose [Mass/Vol] 113 mg/dL High 74 - 99 mg/dL [facility] Comment on above: The [place] Diab[employer] [place] Association (ADA) provides guidance for cutoff values for fasting glucose and random glucose. The ADA defines fasting as no caloric intake for at least 8 hours. Fasting plasma glucose results between 100 to 125 mg/dL indicate increased risk for diabetes (prediabetes). Fasting plasma glucose results greater than or equal to 126 mg/dL meet the criteria for diagnosis of diabetes. In the absence of unequivocal hyperglycemia, results should be confirmed by repeat testing. In a patient with classic symptoms of hyperglycemia or hyperglycemic crisis, random plasma glucose results greater than or equal to 200 mg/dL meet the criteria for diagnosis of diabetes. Reference: Standards of Medical Care in Diabetes 2016, [place] [employer]. Diabetes Care. 2016.39(Suppl 1). Interpretation and review of laboratory results Abnormal [facility] Potassium [Moles/Vol] 4.2 mmol/L 3.7 - 5.1 mmol/L [facility] Protein [Mass/Vol] 7.3 g/dL 6.3 - 8.0 g/dL [facility] Sodium [Moles/Vol] 135 mmol/L Low 136 - 144 mmol/L [facility] Urea nitrogen [Mass/Vol] 23 mg/dL 9 - 24 mg/dL [facility] metabolic 2000 panelon 2024 Albumin [Mass/Vol] 4.0 g/dL Normal 3.9-4.9 [facility] Comment on above: Order Comment: Speci men Type: BLOOD SPECIMENOrdering Facility: [facility] Address: [address] [place] [address] Performed By: #### 2 4323-8 ####[facility] [id number] [place] [address] ALP [Catalytic activity/Vol] 66 U/L Normal 38-113 [facility] Comment on above: Order Comment: Speci men Type: BLOOD SPECIMENOrdering Facility: [facility] Address: [address] [place] [address] Performed By: #### 2 4323-8 ####[facility] [id number] [place] [address] ALT [Catalytic activity/Vol] 14 U/L Normal 10-54 [facility] Comment on above: Order Comment: Speci men Type: BLOOD SPECIMENOrdering Facility: [facility] Address: [address] [place] [address] Performed By: #### 2 4323-8 ####[facility] [id number] [place] [address] Anion gap [Moles/Vol] 3 mmol/L Low 8-15 [facility] Comment on above: Order Comment: Speci men Type: BLOOD SPECIMENOrdering Facility: [facility] Address: [address] [place] [address] Performed By: #### 2 4323-8 ####[facility] [id number] [place] [address] AST [Catalytic activity/Vol] 18 U/L Normal 14-40 [facility] Comment on above: Order Comment: Speci men Type: BLOOD SPECIMENOrdering Facility: [facility] Address: [address] [place] [address] Performed By: #### 2 4323-8 ####[facility] [id number] [place] [address] Bilirubin [Mass/Vol] 0.2 mg/dL Normal 0.2-1.3 [facility] Comment on above: Order Comment: Speci men Type: BLOOD SPECIMENOrdering Facility: [facility] Address: [address] [place] [address] Performed By: #### 2 4323-8 ####[facility] [id number] [place] [address] Calcium [Mass/Vol] 9.4 mg/dL Normal 8.5-10.2 [facility] Comment on above: Order Comment: Speci men Type: BLOOD SPECIMENOrdering Facility: [facility] Address: [address] [place] [address] Performed By: #### 2 4323-8 ####[facility] [id number] [place] [address] Chloride [Moles/Vol] 104 mmol/L Normal 98-107 [facility] Comment on above: Order Comment: Speci men Type: BLOOD SPECIMENOrdering Facility: [facility] Address: [address] [place] [address] Performed By: #### 2 4323-8 ####[facility] [id number] [place] [address] CO2 [Moles/Vol] 28 mmol/L Normal 22-30 [facility] Comment on above: Order Comment: Speci men Type: BLOOD SPECIMENOrdering Facility: [facility] Address: [address] [place] [address] Performed By: #### 2 4323-8 ####[facility] [id number] [place] [address] Creatinine [Mass/Vol] 0.95 mg/dL Normal 0.73-1.22 [facility] Comment on above: Order Comment: Speci men Type: BLOOD SPECIMENOrdering Facility: [facility] Address: [address] [place] [address] Performed By: #### 2 4323-8 ####[facility] [id number] [place] [address] Creatinine and Glomerular filtration rate.predicted panel (S/P/Bld) 83 mL/min/1.73m??? Normal >=60 [facility] Comment on above: Order Comment: Speci men Type: BLOOD SPECIMENOrdering Facility: [facility] Address: [address] [place] [address] Result Comment: Carol mated Glomerular Filtration Rate (eGFR) is calculated using the 2020 CKD-EPI creatinine equation. This equation utilizes serum creatinine, sex, and age as parameters. The creatinine assay has traceable calibration to isotope dilution-mass spectrometry. Refer to KDIGO guidelines for clinical interpretation. In patients with unstable renal function, e.g. those with acute kidney injury, the eGFR may not accurately reflect actual GFR. Performed By: #### 2 4323-8 ####[facility] [id number] [place] [address] Glucose [Mass/Vol] 113 mg/dL High 74-99 [facility] Comment on above: Order Comment: Speci men Type: BLOOD SPECIMENOrdering Facility: [facility] Address: [address] [place], [place] [id number] Result Comment: The [place] Diabetes Association (ADA) provides guidance for cutoff values for fasting glucose and random glucose. The ADA defines fasting as no caloric intake for at least 8 hours. Fasting plasma glucose results between 100 to 125 mg/dL indicate increased risk for diabetes (prediabetes). Fasting plasma glucose results greater than or equal to 126 mg/dL meet the criteria for diagnosis of diabetes. In the absence of unequivocal hyperglycemia, results should be confirmed by repeat testing. In a patient with classic symptoms of hyperglycemia or hyperglycemic crisis, random plasma glucose results greater than or equal to 200 mg/dL meet the criteria for diagnosis of diabetes. Reference: Standards of Medical Care in Diabetes 2016, [place] [employer]. Diabetes Care. 2016.39(Suppl 1). Performed By: #### 2 4323-8 ####[facility] [id number] [place] [address] Potassium [Moles/Vol] 4.2 mmol/L Normal 3.7-5.1 [facility] Comment on above: Order Comment: Speci men Type: BLOOD SPECIMENOrdering Facility: [facility] Address: [address] [place] [address] Performed By: #### 2 4323-8 ####[facility] [id number] [place] [address] Protein [Mass/Vol] 7.3 g/dL Normal 6.3-8.0 [facility] Comment on above: Order Comment: Speci men Type: BLOOD SPECIMENOrdering Facility: [facility] Address: [address] [place] [address] Performed By: #### 2 4323-8 ####[facility] [id number] [place] [address] Sodium [Moles/Vol] 135 mmol/L Low 136-144 [facility] Comment on above: Order Comment: Speci men Type: BLOOD SPECIMENOrdering Facility: [facility] Address: [address] [place] [address] Performed By: #### 2 4323-8 ####[facility] [id number] [place] [address] Urea nitrogen [Mass/Vol] 23 mg/dL Normal 9-24 [facility] Comment on above: Order Comment: Speci men Type: BLOOD SPECIMENOrdering Facility: [facility] Address: [address] [place] [address] Performed By: #### 2 4323-8 ####[facility] [id number] [place] [address] IMMUNOFIXATION SCREEN, SERUM on 2024 INTERPRETATION (MPA) Atypical restricted bands are present in the IgG and lambda regions. Consistent with IgG lambda monoclonal gammopathy. Normal [facility] Comment on above: Order Comment: Speci men Type: BLOOD SPECIMENOrdering Facility: [facility] Address: [address] [place] [address] Performed By: #### I FES ####[facility] [id number] [place] [address] [place] MPA RESULT M protein is present. Abnormal No M protein is identified. [facility] Comment on above: Order Comment: Speci men Type: BLOOD SPECIMENOrdering Facility: [facility] Address: [address] [place] [address] Performed By: #### I FES ####[facility] LABCLIA [id number] [place] [address] [place] STAFF REVIEW ([facility]) Reviewed by Jordana Guallpa MD Normal [facility] Comment on above: Order Comment: Speci men Type: BLOOD SPECIMENOrdering Facility: [facility] Address: [address] [place] [address] Performed By: #### I FESC ####[facility] LABCLIA [id number] [place] [id number] [place] IMMUNOGLOBULINS,IGG,IGA,IGMo n 2024 IgA [Mass/Vol] 51 mg/dL Low 70-400 [facility] Comment on above: Order Comment: Speci men Type: BLOOD SPECIMENOrdering Facility: [facility] Address: [address] [place] [address] Performed By: #### S ERIMM ####[facility] LABCLIA [id number] [place] [address] [place] IgG [Mass/Vol] 1670 mg/dL High 700-1600 [facility] Comment on above: Order Comment: Speci men Type: BLOOD SPECIMENOrdering Facility: [facility] Address: [address] [place] [address] Performed By: #### S ERIMM ####[facility] LABCLIA [id number] [place] [address] [place] IgM [Mass/Vol] 17 mg/dL Low 40-230 [facility] Comment on above: Order Comment: Speci men Type: BLOOD SPECIMENOrdering Facility: [facility] Address: [address] [place] [address] Performed By: #### S ERIMM ####[facility] LABCLIA [id number] [place] [address] [place] KAPPA/LOMBARDI,FREE,SERon 2023 Immunoglobulin light chains.kappa.free (S) [Mass/Vol] 17.4 mg/L Normal 3.3-19.4 [facility] Comment on above: Order Comment: Speci men Type: BLOOD SPECIMENOrdering Facility: [facility] Address: [address] [place] [address] Result Comment: Rare ly, increased serum free light chains levels may not be detected or accurately quantified due to prozone phenomenon or in high viscosity samples using this immunoturbidimetric assay. Correlation with other laboratory results and clinical findings is recommended. The [place] Free Light Chain was performed using the Binding Site Optilite immunoturbidimetric method. Result obtained with different assay methods or kits cannot be used interchangeably. Performed By: #### K LFRS ####[facility] LABCLIA [id number] [place] [address] [place] Immunoglobulin light chains.kappa/Immunoglo bulin light chains.lambda (S) [Mass ratio] 0.33 Normal 0.26-1.65 [facility] Comment on above: Order Comment: Speci men Type: BLOOD SPECIMENOrdering Facility: [facility] Address: [address] [place] [address] Performed By: #### K LFRS ####[facility] LABCLIA [id number] [place] [address] [place] Immunoglobulin light chains.lambda.free [Mass/Vol] 52.1 mg/L High 5.7-26.3 [facility] Comment on above: Order Comment: Speci men Type: BLOOD SPECIMENOrdering Facility: [facility] Address: [address] [place] [address] Result Comment: Rare ly, increased serum free light chains levels may not be detected or accurately quantified due to prozone phenomenon or in high viscosity samples using this immunoturbidimetric assay. Correlation with other laboratory results and clinical findings is recommended. The [place] Free Light Chain was performed using the Binding Site Optilite immunoturbidimetric method. Result obtained with different assay methods or kits cannot be used interchangeably. Performed By: #### K LFRS ####[facility] LABCLIA [id number] [place] [address] [place] LOWER RESPIRATORY CULTUREon 2024 Bacteria identified Respiratory culture Nom (Sput) GRAM STAIN 0 WHITE BLOOD CELLS/LPF 1 to 9 SQUAMOUS EPITHELIAL CELLS/LPF FEW GRAM POSITIVE RODS FEW YEAST RARE GRAM POSITIVE COCCI CULTURE RESULTS MANY ACINETOBACTER PITTII (FORMERLY GENOMOSPECIES 3) ALONG WITH MODERATE NORMAL ORAL BELINDA [ S = SUSCEPTIBLE R = RESISTANT I = INTERMEDIATE S-DO = Susceptible-dose dependent NS = Non-suscceptible NO = No Interpretation ] Organism: ACINETOBACTER PITTII (FORMERLY GENOMOSPECIES 3) Antibiotic Interpretation JULIANNE Status AMP/SULBACTAM S <=2/1 F CEFEPIME S 8 F CEFTAZIDIME S 8 F CEFTRIAXONE I 16 F CIPROFLOXACIN S <=0.25 F GENTAMICIN S <=1 F LEVOFLOXACIN S <=0.12 F PIPERACIL/TAZOBACTAM S <=4 F TOBRAMYCIN S <=1 F Susceptible [facility] Comment on above: Performed By: #### 6 24-7 #### [facility] ([id number]) [address], [address] [place] [address] PROTEIN ELECTROPHORESIS SERU M (P)on 2024 Albumin [Mass/Vol] 3.52 g/dL Normal 3.43-5.41 [facility] Comment on above: Order Comment: Speci men Type: BLOOD SPECIMENOrdering Facility: [facility] Address: [address] [place] [address] Performed By: #### L [id number] ####[facility] LABCLIA [id number] [place] [address] [place] Alpha 1 globulin Elph [Mass/Vol] 0.40 g/dL Normal 0.18-0.43 [facility] Comment on above: Order Comment: Speci men Type: BLOOD SPECIMENOrdering Facility: [facility] Address: [address] [place] [address] Performed By: #### L [id number] ####[facility] LABCLIA [id number] [place] [address] [place] Alpha 2 globulin Elph [Mass/Vol] 0.93 g/dL Normal 0.42-0.98 [facility] Comment on above: Order Comment: Speci men Type: BLOOD SPECIMENOrdering Facility: [facility] Address: [address] [place] [address] Performed By: #### L [id number] ####[facility] LABCLIA [id number] [place] [address] [place] Beta globulin Elph [Mass/Vol] 0.54 g/dL Low 0.61-1.17 [facility] Comment on above: Order Comment: Speci men Type: BLOOD SPECIMENOrdering Facility: [facility] Address: [address] [place] [address] Performed By: #### L [id number] ####[facility] LABCLIA [id number] [place] [address] [place] Gamma globulin Elph [Mass/Vol] 1.42 g/dL Normal 0.53-1.51 [facility] Comment on above: Order Comment: Speci men Type: BLOOD SPECIMENOrdering Facility: [facility] Address: [address] [place] [address] Performed By: #### L [id number] ####[facility] LABCLIA [id number] [address] [place] INTERPRETATION COMMENT FOR PROTEIN ELECTROPHORESIS See separate immunofixation report for characterization of monoclonal gammopathy. Normal [facility] Comment on above: Order Comment: Speci men Type: BLOOD SPECIMENOrdering Facility: [facility] Address: [address] [place] [address] Performed By: #### L [id number] ####[facility] LABIA [id number] [address] [place] M-PROTEIN LOCATION Gamma Fraction 1 Normal [facility] Comment on above: Order Comment: Speci men Type: BLOOD SPECIMENOrdering Facility: [facility] Address: [address] [place] [address] Performed By: #### L [id number] ####[facility] LABCLIA [id number] [place] [address] [place] Protein Fractions [Interp] An M protein is identified on protein electrophoresis. Abnormal No definitive M protein is identified on protein electrophor esis. [facility] Comment on above: Order Comment: Speci men Type: BLOOD SPECIMENOrdering Facility: [facility] Address: [address] [place] [address] Performed By: #### L [id number] ####[facility] LABCLIA [id number] [place] [address] [place] Protein.monoclonal Elph [Mass/Vol] 1.18 g/dL High <=0.00 [facility] Comment on above: Order Comment: Speci men Type: BLOOD SPECIMENOrdering Facility: [facility] Address: [address] [place] [address] Performed By: #### L [id number] ####[facility] LABCLIA [id number] [address] [place] SPE STAFF REVIEW Reviewed by Jordana Guallpa MD [facility] Comment on above: Order Comment: Speci men Type: BLOOD SPECIMENOrdering Facility: [facility] Address: [address] [place] [address] Performed By: #### L [id number] ####[facility] LABIA [id number] [place] [address] [place] Prot SerPl-mCncon 2024 Protein [Mass/Vol] 6.8 g/dL Normal 6.3-8.0 [facility] Comment on above: Order Comment: Speci men Type: BLOOD SPECIMENOrdering Facility: [facility] Address: [address] [place] [address] Performed By: #### 2 885-2 ####[facility] LABIA [id number] [address] [place]onte 01-16-2024 NOE Telephone (HEMASA) -- RAGHAVENDRA HEARD ([id number]) 1945 M Date Time Provider Department 01/16/24 GLENYS KURTZ During your visit today, we recorded the following information about you: Debbie Downey MA 01/16/2024 8:37 AM Signed Patient has an appt on 01/16. Would you like labs? Allergies As of Date: 01/16/2024 (No Known Allergies) Date Reviewed: 01/16/2024 Reviewed by: Glenys Kurtz PA-C - Fully Assessed Reason for Visit: Results [95] Primary Visit Diagnosis:Multiple myeloma not having achieved remission (HCC) [C90.00] Order(s):COMPREHENSIVE METABOLIC PANEL [SQCMP] Order #: [id number] FUTURE COMPLETE BLOOD COUNT AND DIFFERENTIAL [SQCBCDIF] Order #: [id number] FUTURE MONOCLONAL PROTEIN, SERUM (BLOOD) [SQSERMPA] Order #: [id number] FUTURE PROTEIN ELECTROPHORESIS SERUM W/INTERP [SQSEPG] Order #: [id number] FUTURE Prescriptions as of 01/16/2024 - gabapentin (NEURONTIN) 300 mg capsule Take 2 capsules by mouth three times a day for 90 days. - clonazePAM (KLONOPIN) 1 mg tablet TAKE 1 TABLET BY MOUTH THREE TIMES A DAY NEEDED FOR UP TO 30 DAYS - HYDROcodone-acetaminophen (NORCO) 5-325 mg per tablet Take 2 tablets by mouth every 6 hours as needed for up to 30 days. - diazePAM (VALIUM) 5 mg tablet Take 1 tablet by mouth every 8 hours as needed for up to 120 days. - meloxicam (MOBIC) 15 mg tablet Take 1 tablet by mouth every afternoon. - TRELEGY ELLIPTA 100-62.5-25 mcg inhalation powder INHALE 1 PUFF ONCE DAILY FOR 30 DAYS - nitroglycerin sublingual (NITROQUICK) 0.4 mg SL tablet Dissolve 1 tablet under the tongue every 5 minutes as needed. - senna (SENNA LAXATIVE) 8.6 mg tab Take 2 tablets by mouth two times a day. - docusate sodium (COLACE) 100 mg capsule Take 2 capsules by mouth two times a day. - albuterol (PROVENTIL) 2.5 mg /3 mL (0.083 %) nebulizer solution 2.5 mg every 4 hours as needed. - ANORO ELLIPTA 62.5-25 mcg/actuation inhaler INHALE 1 PUFF INTO THE LUNGS EVERY DAY FOR 90 DAYS - DULoxetine (CYMBALTA) 60 mg capsule Take 1 capsule by mouth two times a day. - predniSONE (DELTASONE) 10 mg tablet Take 1 tablet by mouth once daily. Take 4 daily x 5 days, then 2 daily x 5 days, then 1 daily or as directed. - naloxone 4 mg/actuation nasal spray (NARCAN) Use 1 spray in one nostril as needed for overdose. May repeat every 2 to 3 min in alternating nostrils until medical assistance is available - finasteride (PROSCAR) 5 mg tablet - triamterene-hydroCHLOROthi azide (MAXZIDE-25) 37.5-25 mg per tablet TAKE 1 TABLET BY MOUTH EVERY DAY IN THE MORNING - ondansetron (ZOFRAN) 8 mg tablet Take 1 tablet by mouth every 8 hours as needed for nausea/vomiting. - prochlorperazine (COMPAZINE) 10 mg tablet Take 1 tablet by mouth every 6 hours as needed. - metoprolol succinate ER (TOPROL XL) 25 mg 24 hr tablet Take 25 mg by mouth once daily. - mv-mn/iron/folic acid/herb 190 (VITAMIN D3 COMPLETE ORAL) Take by mouth. - ZINC ORAL Take by mouth. - tamsulosin ER (FLOMAX) 0.4 mg cap - Aspirin 81 mg CpDR Take 81 mg by mouth once daily. - atorvastatin 40 mg tablet Take 40 mg by mouth once daily. - DOCOSAHEXANOIC ACID/EPA (FISH OIL ORAL) Take by mouth. 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 The christine hurd was examined and there are no changes to the H&P. Raghavendra Heard is a 78 y.o. year old male with a PMH of IN s/p PATTI to OM in 2012, CAD, hypertension, hyperlipidemia, multiple myeloma and lung ca s/p chemo and radiation in 2022, and pulmonary hypertension presents for SOB. Patient will undergo RHC. Normal [facility] NURSNOTEon 01-09-2024 NURSNOTE RN educated pt on d/ c instructions. RN encouraged pt to voice any questions or concerns. Pt verbalizes no questions or concerns at this time. Normal [facility] Prostate specific Ag [Mass/V ol]on 01-02-2024 PROSTATIC SPEC ANT 2.36 ng/mL Normal 0.00-4.00 [facility] Comment on above: Result Comment: The method used for this test is [employer] DXI chemiluminescent immunoassay. Values obtained by different assay methods cannot be used interchangeably. Performed By: #### 2 857-1 #### [facility] ([id number]) [address] [place] [address] [facility] 12-27-2023 [facility] Cardiology - [facility] Subjective Raghavendra Heard is a 78 y.o. year old male patient being seen for 6 mo follow up CAD, hypertension, and hyperlipidemia. He was started on amlodipine at last apt in May 2023. He was admitted to [facility] last month for pneumonia. states PCP stopped metoprolol due to hypotension and dizziness. Denies recurrent lightheadedness/syncope. Denies chest pain and palpitations. Patient Active Problem List Diagnosis Acute myocardial infarction (CMS/HCC) H/O myocardial infarction, greater than 8 weeks Advance directive discussed with patient Arthritis of left knee Atrial septal defect Benign prostatic hyperplasia with urinary frequency Bradycardia Carpal tunnel syndrome Chest wall pain Intercostal neuralgia Coronary artery disease with history of myocardial infarction without history of CABG Coronary arteriosclerosis Dyspnea on exertion Coronary atherosclerosis Generalized anxiety disorder Essential hypertension History of cardiovascular disorder History of colonic polyps History of lung cancer History of myocardial infarction Hyperlipidemia Leg cramps Lesion of radial nerve Low blood pressure Malignant neoplasm of upper lobe of right lung (CMS/HCC) Lung cancer (CMS/HCC) Malignant neoplasm of upper lobe, bronchus or lung Mass of upper lobe of right lung Moderate major depression, single episode (CMS/HCC) Multiple closed fractures of ribs of right side Multiple myeloma (CMS/HCC) Neuropathy Obstructive uropathy Pain Paraseptal emphysema (CMS/HCC) Patent foramen ovale Presence of stent in artery Primary localized osteoarthrosis of multiple sites Primary osteoarthritis of left knee Pulmonary valve disorder Tricuspid valve disorder Pure hypercholesterolemia Right ventricular dilation Sinus bradycardia Acute pain of left knee Adenocarcinoma, lung, left (CMS/HCC) Benign prostatic hyperplasia with lower urinary tract symptoms Generalized osteoarthrosis, 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 He has a hx of CAD and prior IN s/p PATTI to the OM in 2012. He also has a hx of multiple myeloma and lung CA, and he has undergone a right upper lobectomy. He underwent chemo/radiation - finished Aug, 2022. He was previously investigated for possible ASD and right sided enlargement but MARK done was negative. In October 2023 he was admitted to the [facility] with COPD exacerbation and community-acquired pneumonia. His echocardiogram showed severely elevated right sided pressures. He has a chronic cough from radiation. He has shortness of breath on exertion but no chest pain. No palpitations. He has mild lower extremity edema. Metoprolol was stopped due to low blood pressure. He continues to be on amlodipine 2.5 mg once daily. He is not taking diuretics at this point. Review of Systems Cardiovascular: Positive for dyspnea on exertion and leg swelling. Musculoskeletal: Positive for arthritis and back pain. Neurological: Positive for weakness. All other systems reviewed and are negative. Objective Visit Vitals BP 114/62 (BP Location: Right arm, Patient Position: Sitting) Pulse 66 Ht 1.753 m (5' 9 ) Wt 67.1 kg (148 lb) SpO2 96% BMI 21.86 kg/m??? Smoking Status Former BSA 1.81 m??? Physical Exam Constitutional: Appearance: He is well-developed. He is not ill-appearing. HENT: Head: Normocephalic and atraumatic. Nose: Nose normal. Eyes: General: No scleral icterus. Pupils: Pupils are equal, round, and reactive to light. Neck: Thyroid: No thyromegaly. Vascular: No JVD. Cardiovascular: Rate and Rhythm: Normal rate and regular rhythm. Pulses: Radial pulses are 2+ on the right side and 2+ on the left side. Heart sounds: Normal heart sounds. No murmur heard. No friction rub. No gallop. Pulmonary: Effort: Pulmonary effort is normal. No respiratory distress. Breath sounds: Examination of the right-upper field reveals decreased breath sounds. Examination of the right-middle field reveals decreased breath sounds. Decreased breath sounds present. No wheezing or rales. Chest: Chest wall: No tenderness. Abdominal: General: Bowel sounds are normal. There is no distension. Palpations: Abdomen is soft. Tenderness: There is no abdominal tenderness. Musculoskeletal: General: No swelling. Cervical back: Neck supple. Skin: General: Skin is warm (more content not included)... Normal [facility] Office Visiton 12-27-2023 Follow-up visit [id number] Raghavendra Heard 1945 M Date Provider Department Center 12/27/2023 DejaLEO TOLEDO [facility] Family History Problem Relation Age of Onset Diabetes Other Other Other Family Status - Relation Status Age at Other Level of Service:[address] [place] OFFICE/OUTPATIENT ESTABLISHED HIGH MDM 40 MIN Normal [facility] [place] 12-24-2023 J[facility] Telephone (LIYAH) -- RAGHAVENDRA HEARD ([id number]) 1945 M Date Time Provider Department 12/24/23 RHONA RUIZ During your visit today, we recorded the following information about you: Rhona Ruiz RN 12/24/2023 1:02 PM Signed Voicemail message received from pt requesting his [employer] script be sent to [email or web address] in [place]. States he phoned in a request on Sunday. Pt's record shows scripts for Valium and [place] were sent on 12/23/23. Call placed to pt. No answer. Voicemail is full. Unable to leave a message. ILENE Tian Rebecca, RN 12/24/2023 4:24 PM Signed Pt notified of scripts and verbalizes understanding. Rhona Ruiz RN Allergies As of Date: 12/24/2023 (No Known Allergies) Date Reviewed: 09/20/2023 Reviewed by: Lexus Alberts DO - Fully Assessed Reason for Visit: Care Coordination [2113] Cmt: [place] Request Prescriptions as of 12/24/2023 - HYDROcodone-acetaminophen (NORCO) 5-325 mg per tablet Take 2 tablets by mouth every 6 hours as needed for up to 30 days. - diazePAM (VALIUM) 5 mg tablet Take 1 tablet by mouth every 8 hours as needed for up to 120 days. - clonazePAM (KLONOPIN) 1 mg tablet TAKE 1 TABLET BY MOUTH THREE TIMES A DAY NEEDED FOR UP TO 30 DAYS - meloxicam (MOBIC) 15 mg tablet Take 1 tablet by mouth every afternoon. - gabapentin (NEURONTIN) 300 mg capsule Take 2 capsules by mouth three times a day for 90 days. - TRELEGY ELLIPTA 100-62.5-25 mcg inhalation powder INHALE 1 PUFF ONCE DAILY FOR 30 DAYS - nitroglycerin sublingual (NITROQUICK) 0.4 mg SL tablet Dissolve 1 tablet under the tongue every 5 minutes as needed. - senna (SENNA LAXATIVE) 8.6 mg tab Take 2 tablets by mouth two times a day. - docusate sodium (COLACE) 100 mg capsule Take 2 capsules by mouth two times a day. - albuterol (PROVENTIL) 2.5 mg /3 mL (0.083 %) nebulizer solution 2.5 mg every 4 hours as needed. - ANORO ELLIPTA 62.5-25 mcg/actuation inhaler INHALE 1 PUFF INTO THE LUNGS EVERY DAY FOR 90 DAYS - DULoxetine (CYMBALTA) 60 mg capsule Take 1 capsule by mouth two times a day. - predniSONE (DELTASONE) 10 mg tablet Take 1 tablet by mouth once daily. Take 4 daily x 5 days, then 2 daily x 5 days, then 1 daily or as directed. - naloxone 4 mg/actuation nasal spray (NARCAN) Use 1 spray in one nostril as needed for overdose. May repeat every 2 to 3 min in alternating nostrils until medical assistance is available - finasteride (PROSCAR) 5 mg tablet - triamterene-hydroCHLOROthi azide (MAXZIDE-25) 37.5-25 mg per tablet TAKE 1 TABLET BY MOUTH EVERY DAY IN THE MORNING - ondansetron (ZOFRAN) 8 mg tablet Take 1 tablet by mouth every 8 hours as needed for nausea/vomiting. - prochlorperazine (COMPAZINE) 10 mg tablet Take 1 tablet by mouth every 6 hours as needed. - metoprolol succinate ER (TOPROL XL) 25 mg 24 hr tablet Take 25 mg by mouth once daily. - mv-mn/iron/folic acid/herb 190 (VITAMIN D3 COMPLETE ORAL) Take by mouth. - ZINC ORAL Take by mouth. - tamsulosin ER (FLOMAX) 0.4 mg cap - Aspirin 81 mg CpDR Take 81 mg by mouth once daily. - atorvastatin 40 mg tablet Take 40 mg by mouth once daily. - DOCOSAHEXANOIC ACID/EPA (FISH OIL ORAL) Take by mouth. Problem List As Of Date 12/24/2023 Noted Resolved Multiple myeloma (HCC) [C90.00] 05/02/2012 Pain [R52] 06/14/2012 Leg cramps [R25.2] 06/14/2012 Coronary artery disease with history of myocard*12/04/2012 Hyperlipidemia [E78.5] 12/04/2012 Chest wall pain [R07.89] 01/10/2021 History of lung cancer [Z85.118] 01/10/2021 Intercostal neuralgia [G58.8] 01/10/2021 Lung cancer (HCC) [C34.90] 05/03/2022 Malignant neoplasm of upper lobe of right lung *05/03/2022 Malnutrition of mild degree (HCC) [E44.1] 11/20/2022 Moderate major depression, single episode (HCC)*12/06/2022 Encounter Status:Closed by RHONA RUIZ on 12/24/23 Normal [facility] CBC W Auto Differential pane l (Bld)on 10-29-2023 Basophils (Bld) [#/Vol] 0.04 10*3/uL [facility] Basophils/100 WBC (Bld) 0.8 % [facility] Differential cell count method Nom (Bld) Auto [facility] Eosinophils (Bld) [#/Vol] 0.12 10*3/uL [facility] Eosinophils/100 WBC (Bld) 2.3 % [facility] Erythrocyte distribution width (RBC) [Ratio] 14.3 % 11.5 - 15.0 % [facility] Hematocrit (Bld) [Volume fraction] 32.2 % Low 39.0 - 51.0 % [facility] Hemoglobin (Bld) [Mass/Vol] 10.9 g/dL Low 13.0 - 17.0 g/dL [facility] Immature granulocytes (Bld) [#/Vol] [facility] Immature granulocytes/100 WBC (Bld) 0.2 % [facility] Interpretation and review of laboratory results Abnormal [facility] Lymphocytes (Bld) [#/Vol] 1.55 10*3/uL [facility] Lymphocytes/100 WBC (Bld) 29.5 % [facility] MCH (RBC) [Entitic mass] 34.3 pg High 26.0 - 34.0 pg [facility] MCHC (RBC) [Mass/Vol] 33.9 g/dL 30.5 - 36.0 g/dL [facility] MCV (RBC) [Entitic vol] 101.3 fL High 80.0 - 100.0 fL [facility] Monocytes (Bld) [#/Vol] 0.43 10*3/uL [facility] Monocytes/100 WBC (Bld) 8.2 % [facility] Neutrophils (Bld) [#/Vol] 3.11 10*3/uL [facility] Neutrophils/100 WBC (Bld) 59.0 % [facility] Nucleated RBC (Bld) [#/Vol] [facility] Nucleated RBC/100 WBC (Bld) [Ratio] 0.0 % /100 WBC [facility] Platelet mean volume (Bld) [Entitic vol] 9.7 fL 9.0 - 12.7 fL [facility] Platelets (Bld) [#/Vol] 185 10*3/uL [facility] RBC (Bld) [#/Vol] 3.18 10*6/uL Low 4.20 - 6.0 0 m/uL [facility] WBC (Bld) [#/Vol] 5.26 10*3/uL [facility] Basophils (Bld) [#/Vol] 0.04 10*3/uL Normal <0.11 [facility] Comment on above: Order Comment: Speci men Type: BLOOD SPECIMENOrdering Facility: [facility] Address: [address] [place] [address] Performed By: #### 5 7021-8 ####[facility] LABCLIA [id number] [place] [address] Basophils/100 WBC (Bld) 0.8 % Normal [facility] Comment on above: Order Comment: Speci men Type: BLOOD SPECIMENOrdering Facility: [facility] Address: [address] [place] [address] Performed By: #### 5 7021-8 ####[facility] LABCLIA [id number] [place] [address] Differential cell count method Nom (Bld) Auto Normal [facility] Comment on above: Order Comment: Speci men Type: BLOOD SPECIMENOrdering Facility: [facility] Address: [address] [place] [address] Performed By: #### 5 7021-8 ####[facility] LABCLIA [id number] [place] [address] Eosinophils (Bld) [#/Vol] 0.12 10*3/uL Normal <0.46 [facility] Comment on above: Order Comment: Speci men Type: BLOOD SPECIMENOrdering Facility: [facility] Address: [address] [place] [address] Performed By: #### 5 7021-8 ####[facility] LABCLIA [id number] [place] [address] Eosinophils/100 WBC (Bld) 2.3 % Normal [facility] Comment on above: Order Comment: Speci men Type: BLOOD SPECIMENOrdering Facility: [facility] Address: [address] [place] [address] Performed By: #### 5 7021-8 ####[facility] LABCLIA [id number] [place] [address] Erythrocyte distribution width (RBC) [Ratio] 14.3 % Normal 11.5-15.0 [facility] Comment on above: Order Comment: Speci men Type: BLOOD SPECIMENOrdering Facility: [facility] Address: [address] [place] [address] Performed By: #### 5 7021-8 ####[facility] LABCLIA [id number] [place] [address] Hematocrit (Bld) [Volume fraction] 32.2 % Low 39.0-51.0 [facility] Comment on above: Order Comment: Speci men Type: BLOOD SPECIMENOrdering Facility: [facility] Address: [address] [place] [address] Performed By: #### 5 7021-8 ####[facility] LABCLIA [id number] [place] [address] Hemoglobin (Bld) [Mass/Vol] 10.9 g/dL Low 13.0-17.0 [facility] Comment on above: Order Comment: Speci men Type: BLOOD SPECIMENOrdering Facility: [facility] Address: [address] [place] [address] Performed By: #### 5 7021-8 ####[facility] LABCLIA [id number] [place] [address] Immature granulocytes (Bld) [#/Vol] 10*3/uL Normal <0.10 [facility] Comment on above: Order Comment: Speci men Type: BLOOD SPECIMENOrdering Facility: [facility] Address: [address] [place] [address] Performed By: #### 5 7021-8 ####[facility] LABCLIA [id number] [place] [address] Immature granulocytes/100 WBC (Bld) 0.2 % Normal [facility] Comment on above: Order Comment: Speci men Type: BLOOD SPECIMENOrdering Facility: [facility] Address: [address] [place] [address] Performed By: #### 5 7021-8 ####[facility] LABCLIA [id number] [place] [address] Lymphocytes (Bld) [#/Vol] 1.55 10*3/uL Normal 1.00-4.00 [facility] Comment on above: Order Comment: Speci men Type: BLOOD SPECIMENOrdering Facility: [facility] Address: [address] [place] [address] Performed By: #### 5 7021-8 ####[facility] LABCLIA [id number] [place] [address] Lymphocytes/100 WBC (Bld) 29.5 % Normal [facility] Comment on above: Order Comment: Speci men Type: BLOOD SPECIMENOrdering Facility: [facility] Address: [address] [place] [address] Performed By: #### 5 7021-8 ####[facility] LABCLIA [id number] [place] [address] MCH (RBC) [Entitic mass] 34.3 pg High 26.0-34.0 [facility] Comment on above: Order Comment: Speci men Type: BLOOD SPECIMENOrdering Facility: [facility] Address: [address] [place] [address] Performed By: #### 5 7021-8 ####[facility] LABCLIA [id number] [place] [address] MCHC (RBC) [Mass/Vol] 33.9 g/dL Normal 30.5-36.0 [facility] Comment on above: Order Comment: Speci men Type: BLOOD SPECIMENOrdering Facility: [facility] Address: [address] [place] [address] Performed By: #### 5 7021-8 ####[facility] LABCLIA [id number] [place] [address] MCV (RBC) [Entitic vol] 101.3 fL High 80.0-100.0 [facility] Comment on above: Order Comment: Speci men Type: BLOOD SPECIMENOrdering Facility: [facility] Address: [address] [place] [address] Performed By: #### 5 7021-8 ####[facility] LABCLIA [id number] [place] [address] Monocytes (Bld) [#/Vol] 0.43 10*3/uL Normal <0.87 [facility] Comment on above: Order Comment: Speci men Type: BLOOD SPECIMENOrdering Facility: [facility] Address: [address] [place] [address] Performed By: #### 5 7021-8 ####[facility] LABCLIA [id number] [place] [address] Monocytes/100 WBC (Bld) 8.2 % Normal [facility] Comment on above: Order Comment: Speci men Type: BLOOD SPECIMENOrdering Facility: [facility] Address: [address] [place] [address] Performed By: #### 5 7021-8 ####[facility] LABCLIA [id number] [place] [address] Neutrophils (Bld) [#/Vol] 3.11 10*3/uL Normal 1.45-7.50 [facility] Comment on above: Order Comment: Speci men Type: BLOOD SPECIMENOrdering Facility: [facility] Address: [address] [place] [address] Performed By: #### 5 7021-8 ####[facility] LABCLIA [id number] [place] [address] Neutrophils/100 WBC (Bld) 59.0 % Normal [facility] Comment on above: Order Comment: Speci men Type: BLOOD SPECIMENOrdering Facility: [facility] Address: [address] [place] [address] Performed By: #### 5 7021-8 ####[facility] LABCLIA [id number] [place] [address] Nucleated RBC (Bld) [#/Vol] 10*3/uL Normal <0.01 [facility] Comment on above: Order Comment: Speci men Type: BLOOD SPECIMENOrdering Facility: [facility] Address: [address] [place] [address] Performed By: #### 5 7021-8 ####[facility] LABCLIA [id number] [place] [address] Nucleated RBC/100 WBC (Bld) [Ratio] 0.0 /100 WBC Normal [facility] Comment on above: Order Comment: Speci men Type: BLOOD SPECIMENOrdering Facility: [facility] Address: [address] [place] [address] Performed By: #### 5 7021-8 ####[facility] LABCLIA [id number] [place] [address] Platelet mean volume (Bld) [Entitic vol] 9.7 fL Normal 9.0-12.7 [facility] Comment on above: Order Comment: Speci men Type: BLOOD SPECIMENOrdering Facility: [facility] Address: [address] [place] [address] Performed By: #### 5 7021-8 ####[facility] LABCLIA [id number] [place] [address] Platelets (Bld) [#/Vol] 185 10*3/uL Normal 150-400 [facility] Comment on above: Order Comment: Speci men Type: BLOOD SPECIMENOrdering Facility: [facility] Address: [address] [place] [address] Performed By: #### 5 7021-8 ####[facility] LABCLIA [id number] [place] [address] RBC (Bld) [#/Vol] 3.18 10*6/uL Low 4.20-6.00 [facility] Comment on above: Order Comment: Speci men Type: BLOOD SPECIMENOrdering Facility: [facility] Address: [address] [place] [address] Performed By: #### 5 7021-8 ####[facility] LABIA [id number] [place] [address] WBC (Bld) [#/Vol] 5.26 10*3/uL Normal 3.70-11.00 [facility] Comment on above: Order Comment: Speci men Type: BLOOD SPECIMENOrdering Facility: [facility] Address: [address] [place] [address] Performed By: #### 5 7021-8 ####[facility] [id number] [place] [address] CNOVSPon 10-29-2023 CNOVSP Visit (SP) Office (H [facility]) -- RAGHAVENDRA HEARD ([id number]) 1945 M Date Time Provider Department 10/29/23 10:30 AM JA BECKER During your visit today, we recorded the following information about you: Temperature Pulse Respiration Blood pressure 97.6 degrees 69/minute 18/minute 134/74 Weight 68.8 kg Ja Becker MD 10/31/2023 6:53 AM Signed PATIENT NAME: Raghavendra Heard DATE: 10/29/2023 PRIMARY CARE PHYSICIAN: Dr. Prerna Grissom II OTHER PHYSICIANS: Dr. Toledo (Cardiology [facility]), Dr. Zhang, Dr. Hernández (Wardrobe Manager in [place]), Dr. Stinson (Thoracic Surgery in [place]), Dr. Alberts Portions of this encounter note have been copied from the note from 08/06/2023 and has been updated where appropriate, and reflect my current medical decision making from today. CC: This is a 78 year old male with a history of recurrent lung cancer and multiple myeloma, seen for for scheduled follow-up. INTERIM HISTORY: Since the patient's last visit here he has had no significant medical changes. He has intermittent shortness of breath and cough based activity, but overall improved. Intermittent dizziness, not severe. No other neurological symptoms. Pain and anxiety controlled with current medications. MEDICATIONS: HYDROcodone-acetaminophen (NORCO) 5-325 mg per tablet Take 2 tablets by mouth every 6 hours as needed for up to 30 days. clonazePAM (KLONOPIN) 1 mg tablet TAKE 1 TABLET BY MOUTH THREE TIMES A DAY NEEDED FOR UP TO 30 DAYS gabapentin (NEURONTIN) 300 mg capsule Take 2 capsules by mouth three times a day for 90 days. diazePAM (VALIUM) 5 mg tablet Take 1 tablet by mouth every 8 hours as needed for up to 120 days. TRELEGY ELLIPTA 100-62.5-25 mcg inhalation powder INHALE 1 PUFF ONCE DAILY FOR 30 DAYS nitroglycerin sublingual (NITROQUICK) 0.4 mg SL tablet Dissolve 1 tablet under the tongue every 5 minutes as needed. senna (SENNA LAXATIVE) 8.6 mg tab Take 2 tablets by mouth two times a day. docusate sodium (COLACE) 100 mg capsule Take 2 capsules by mouth two times a day. albuterol (PROVENTIL) 2.5 mg /3 mL (0.083 %) nebulizer solution 2.5 mg every 4 hours as needed. ANORO ELLIPTA 62.5-25 mcg/actuation inhaler INHALE 1 PUFF INTO THE LUNGS EVERY DAY FOR 90 DAYS DULoxetine (CYMBALTA) 60 mg capsule Take 1 capsule by mouth two times a day. predniSONE (DELTASONE) 10 mg tablet Take 1 tablet by mouth once daily. Take 4 daily x 5 days, then 2 daily x 5 days, then 1 daily or as directed. naloxone 4 mg/actuation nasal spray (NARCAN) Use 1 spray in one nostril as needed for overdose. May repeat every 2 to 3 min in alternating nostrils until medical assistance is available finasteride (PROSCAR) 5 mg tablet triamterene-hydroCHLOROthi azide (MAXZIDE-25) 37.5-25 mg per tablet TAKE 1 TABLET BY MOUTH EVERY DAY IN THE MORNING ondansetron (ZOFRAN) 8 mg tablet Take 1 tablet by mouth every 8 hours as needed for nausea/vomiting. prochlorperazine (COMPAZINE) 10 mg tablet Take 1 tablet by mouth every 6 hours as needed. metoprolol succinate ER (TOPROL XL) 25 mg 24 hr tablet Take 25 mg by mouth once daily. mv-mn/iron/folic acid/herb 190 (VITAMIN D3 COMPLETE ORAL) Take by mouth. ZINC ORAL Take by mouth. tamsulosin ER (FLOMAX) 0.4 mg cap Aspirin 81 mg CpDR Take 81 mg by mouth once daily. atorvastatin 40 mg tablet Take 40 mg by mouth once daily. DOCOSAHEXANOIC ACID/EPA (FISH OIL ORAL) Take by mouth. ALLERGIES: Patient has no known allergies. PAST MEDICAL HISTORY: PAST MEDICAL HISTORY Diagnosis Date Anxiety Enlarged prostate HTN (hypertension) Hypercholesteremia Multiple myeloma, without mention of having achieved remission PAST SURGICAL HISTORY: PAST SURGICAL HISTORY Procedure Laterality Date REMOVAL OF LUNG,LOBECTOMY Right 04/24/2019 right upper lobe REVIEW OF SYSTEMS: As above. PHYSICAL EXAM: Vitals: BP 134/74 Pulse 69 Temp 36.4 ?C (97.6 ?F) (Temporal) Resp 18 Wt 68.8 kg (151 lb 10.8 oz) SpO2 94% BMI 23.07 kg/m? ECOG 1 General: Alert and oriented, no distress, pleasant and cooperative. Heart: Regular, normal S1 and S2, no murmurs, rubs, or gallops Lungs: Clear to auscultation bilaterally Abdomen: Benign Extremities: Feet/ankles without edema, posterior tibial pulses full and symmetrical PATHOLOGY: 06/14/2022 Lymph node, 10 R, EBUS transbronchial biopsy Adenocarcinoma. Immunohistochemistry: PD-L1 expression less than 1% ALK rearrangement 0% BRAF - No variant detected [Reference Sequence: ([id number])]. EGFR - No variant detected [Reference Sequence: ([id number])]. HER2 (ERBB2) - No variant detected [Reference Sequence: (NM_[id number])]. KRAS - No variant detected [Reference Sequence: (NM_[id number])]. MET - No variant detected [Reference Sequence: (NM_[id number])]. RADIOLOGIC STUDIES: 10/22/2023 CT chest IMPRESSION: Nearly reso (more content not included)... Normal [facility] Comprehensive metabolic 2000 panelOrdered By: Niko Griffith on 10-29-2023 Albumin [Mass/Vol] 3.9 g/dL 3.9 - 4.9 g/dL [facility] ALP [Catalytic activity/Vol] 74 U/L 38 - 113 U/L [facility] ALT [Catalytic activity/Vol] 16 U/L 10 - 54 U/L [facility] Anion gap [Moles/Vol] 8 mmol/L Low 9 - 18 mmol/L [facility] AST [Catalytic activity/Vol] 19 U/L 14 - 40 U/L [facility] Bilirubin [Mass/Vol] 0.3 mg/dL 0.2 - 1 .3 mg/dL [facility] Calcium [Mass/Vol] 9.3 mg/dL 8.5 - 10. 2 mg/dL [facility] Chloride [Moles/Vol] 107 mmol/L High 97 - 10 5 mmol/L [facility] CO2 [Moles/Vol] 26 mmol/L 22 - 30 mmol/L [facility] Creatinine [Mass/Vol] 0.89 mg/dL 0.73 - 1.22 mg/dL [facility] GFR/1.73 sq M.predicted among non-blacks MDRD (S/P/Bld) [Vol rate/Area] 89 mL/min/{1.73_m2} - PINF [facility] Comment on above: Estimated Glomerular Filtration Rate (eGFR) is calculated using the 2020 CKD-EPI creatinine equation. This equation utilizes serum creatinine, sex, and age as parameters. The creatinine assay has traceable calibration to isotope dilution-mass spectrometry. Refer to KDIGO guidelines for clinical interpretation. In patients with unstable renal function, e.g. those with acute kidney injury, the eGFR may not accurately reflect actual GFR. Glucose [Mass/Vol] 136 mg/dL High 74 - 99 mg/dL [facility] Comment on above: The [place] Di[employer] Association (ADA) provides guidance for cutoff values for fasting glucose and random glucose. The ADA defines fasting as no caloric intake for at least 8 hours. Fasting plasma glucose results between 100 to 125 mg/dL indicate increased risk for diabetes (prediabetes). Fasting plasma glucose results greater than or equal to 126 mg/dL meet the criteria for diagnosis of diabetes. In the absence of unequivocal hyperglycemia, results should be confirmed by repeat testing. In a patient with classic symptoms of hyperglycemia or hyperglycemic crisis, random plasma glucose results greater than or equal to 200 mg/dL meet the criteria for diagnosis of diabetes. Reference: Standards of Medical Care in Diabetes 2016, [place] [employer]. Diabetes Care. 2016.39(Suppl 1). Interpretation and review of laboratory results Abnormal [facility] Potassium [Moles/Vol] 4.0 mmol/L 3.7 - 5.1 mmol/L [facility] Protein [Mass/Vol] 7.9 g/dL 6.3 - 8.0 g/dL [facility] Sodium [Moles/Vol] 141 mmol/L 136 - 144 mmol/L [facility] Urea nitrogen [Mass/Vol] 19 mg/dL 9 - 24 mg/dL [facility] Comprehensive metabolic 2000 panelon 10-29-2023 Albumin [Mass/Vol] 3.9 g/dL Normal 3.9-4.9 [facility] Comment on above: Order Comment: Speci men Type: BLOOD SPECIMENOrdering Facility: [facility] Address: [address] [place] [address] Performed By: #### 2 4323-8 ####[facility] LABCLIA [id number] [place] [address] ALP [Catalytic activity/Vol] 74 U/L Normal 38-113 [facility] Comment on above: Order Comment: Speci men Type: BLOOD SPECIMENOrdering Facility: [facility] Address: [address] [place] [address] Performed By: #### 2 4323-8 ####[facility] LABCLIA [id number] [place] [address] ALT [Catalytic activity/Vol] 16 U/L Normal 10-54 [facility] Comment on above: Order Comment: Speci men Type: BLOOD SPECIMENOrdering Facility: [facility] Address: [address] [place] [address] Performed By: #### 2 4323-8 ####[facility] LABCLIA [id number] [place] [address] Anion gap [Moles/Vol] 8 mmol/L Low 9-18 [facility] Comment on above: Order Comment: Speci men Type: BLOOD SPECIMENOrdering Facility: [facility] Address: [address] [place] [address] Performed By: #### 2 4323-8 ####[facility] LABCLIA [id number] [place] [address] AST [Catalytic activity/Vol] 19 U/L Normal 14-40 [facility] Comment on above: Order Comment: Speci men Type: BLOOD SPECIMENOrdering Facility: [facility] Address: [address] [place] [address] Performed By: #### 2 4323-8 ####[facility] LABCLIA [id number] [place] [address] Bilirubin [Mass/Vol] 0.3 mg/dL Normal 0.2-1.3 [facility] Comment on above: Order Comment: Speci men Type: BLOOD SPECIMENOrdering Facility: [facility] Address: [address] [place] [address] Performed By: #### 2 4323-8 ####[facility] LABCLIA [id number] [place] [address] Calcium [Mass/Vol] 9.3 mg/dL Normal 8.5-10.2 [facility] Comment on above: Order Comment: Speci men Type: BLOOD SPECIMENOrdering Facility: [facility] Address: [address] [place] [address] Performed By: #### 2 4323-8 ####[facility] LABCLIA [id number] [place] [address] Chloride [Moles/Vol] 107 mmol/L High 97-105 [facility] Comment on above: Order Comment: Speci men Type: BLOOD SPECIMENOrdering Facility: [facility] Address: [address] [place] [address] Performed By: #### 2 4323-8 ####[facility] LABCLIA [id number] [place] [address] CO2 [Moles/Vol] 26 mmol/L Normal 22-30 [facility] Comment on above: Order Comment: Speci men Type: BLOOD SPECIMENOrdering Facility: [facility] Address: [address] [place] [address] Performed By: #### 2 4323-8 ####[facility] LABCLIA [id number] [place] [address] Creatinine [Mass/Vol] 0.89 mg/dL Normal 0.73-1.22 [facility] Comment on above: Order Comment: Speci men Type: BLOOD SPECIMENOrdering Facility: [facility] Address: [address] [place] [address] Performed By: #### 2 4323-8 ####[facility] LABCLIA [id number] [place] [address] Creatinine and Glomerular filtration rate.predicted panel (S/P/Bld) 89 mL/min/1.73m??? Normal >=60 [facility] Comment on above: Order Comment: Speci men Type: BLOOD SPECIMENOrdering Facility: [facility] Address: [address] [place] [address] Result Comment: Carol mated Glomerular Filtration Rate (eGFR) is calculated using the 2020 CKD-EPI creatinine equation. This equation utilizes serum creatinine, sex, and age as parameters. The creatinine assay has traceable calibration to isotope dilution-mass spectrometry. Refer to KDIGO guidelines for clinical interpretation. In patients with unstable renal function, e.g. those with acute kidney injury, the eGFR may not accurately reflect actual GFR. Performed By: #### 2 4323-8 ####[facility] LABCLIA [id number] [place] [address] Glucose [Mass/Vol] 136 mg/dL High 74-99 [facility] Comment on above: Order Comment: Speci men Type: BLOOD SPECIMENOrdering Facility: [facility] Address: [address] [place] [address] Result Comment: The [place] Diabetes Association (ADA) provides guidance for cutoff values for fasting glucose and random glucose. The ADA defines fasting as no caloric intake for at least 8 hours. Fasting plasma glucose results between 100 to 125 mg/dL indicate increased risk for diabetes (prediabetes). Fasting plasma glucose results greater than or equal to 126 mg/dL meet the criteria for diagnosis of diabetes. In the absence of unequivocal hyperglycemia, results should be confirmed by repeat testing. In a patient with classic symptoms of hyperglycemia or hyperglycemic crisis, random plasma glucose results greater than or equal to 200 mg/dL meet the criteria for diagnosis of diabetes. Reference: Standards of Medical Care in Diabetes 2016, [place] [employer]. Diabetes Care. 2016.39(Suppl 1). Performed By: #### 2 4323-8 ####[facility] LABCLIA [id number] [place] [address] Potassium [Moles/Vol] 4.0 mmol/L Normal 3.7-5.1 [facility] Comment on above: Order Comment: Speci men Type: BLOOD SPECIMENOrdering Facility: [facility] Address: [address] [place] [address] Performed By: #### 2 4323-8 ####[facility] LABCLIA [id number] [place] [address] Protein [Mass/Vol] 7.9 g/dL Normal 6.3-8.0 [facility] Comment on above: Order Comment: Speci men Type: BLOOD SPECIMENOrdering Facility: [facility] Address: [address] [place] [address] Performed By: #### 2 4323-8 ####[facility] LABCLIA [id number] [place] [address] Sodium [Moles/Vol] 141 mmol/L Normal 136-144 [facility] Comment on above: Order Comment: Speci men Type: BLOOD SPECIMENOrdering Facility: [facility] Address: [address] [place] [address] Performed By: #### 2 4323-8 ####[facility] LABCLIA [id number] [place] [address] Urea nitrogen [Mass/Vol] 19 mg/dL Normal 9-24 [facility] Comment on above: Order Comment: Speci men Type: BLOOD SPECIMENOrdering Facility: [facility] Address: [address] [place] [address] Performed By: #### 2 4323-8 ####[facility] LABCLIA [id number] [place] [address] IMMUNOFIXATION SCREEN, SERUM on 10-29-2023 INTERPRETATION (MPA) Atypical restricted bands are present in the IgG and lambda regions. Consistent with IgG lambda monoclonal gammopathy. Normal [facility] Comment on above: Order Comment: Speci men Type: BLOOD SPECIMENOrdering Facility: [facility] Address: [address] [place] [address] Performed By: #### I FESC ####[facility] LABCLIA [id number] [place] [address] [place] MPA RESULT M protein is present. Abnormal No M protein is identified. [facility] Comment on above: Order Comment: Speci men Type: BLOOD SPECIMENOrdering Facility: [facility] Address: [address] [place] [address] Performed By: #### I FESC ####[facility] LABCLIA [id number] [address] [place] STAFF REVIEW (MPA) Reviewed by Karena Jacobs M.D., Ph.D Normal [facility] Comment on above: Order Comment: Speci men Type: BLOOD SPECIMENOrdering Facility: [facility] Address: [address] [place] [address] Performed By: #### I FESC ####[facility] LABCLIA [id number] [place] [address] [place] IMMUNOGLOBULINS,IGG,IGA,IGMo n 10-29-2023 IgA [Mass/Vol] 39 mg/dL Low 70 - 400 mg/dL [facility] IgG [Mass/Vol] 2206 mg/dL High 700 - 1600 mg/dL [facility] IgM [Mass/Vol] 14 mg/dL Low 40 - 230 mg/dL [facility] Interpretation and review of laboratory results Abnormal [facility] IgA [Mass/Vol] 39 mg/dL Low 70-400 [facility] Comment on above: Order Comment: Speci men Type: BLOOD SPECIMENOrdering Facility: [facility] Address: [address] [place] [address] Performed By: #### S ERIMM ####[facility] LABCLIA [id number] [place] [address] [place] IgG [Mass/Vol] 2206 mg/dL High 700-1600 [facility] Comment on above: Order Comment: Speci men Type: BLOOD SPECIMENOrdering Facility: [facility] Address: [address] [place] [address] Performed By: #### S ERIMM ####[facility] LABIA [id number] [place] [address] [place] IgM [Mass/Vol] 14 mg/dL Low 40-230 [facility] Comment on above: Order Comment: Speci men Type: BLOOD SPECIMENOrdering Facility: [facility] Address: [address] [place] [address] Performed By: #### S ERIMM ####[facility] LABIA [id number] [place] [address] [place] KAPPA/LOMBARDI,FREE,SERon 2023 Immunoglobulin light chains.kappa.free (S) [Mass/Vol] 20.3 mg/L High 3.3-19.4 [facility] Comment on above: Order Comment: Speci men Type: BLOOD SPECIMENOrdering Facility: [facility] Address: [address] [place] [address] Result Comment: Rare ly, increased serum free light chains levels may not be detected or accurately quantified due to prozone phenomenon or in high viscosity samples using this immunoturbidimetric assay. Correlation with other laboratory results and clinical findings is recommended. The [place] Free Light Chain was performed using the Binding Site Optilite immunoturbidimetric method. Result obtained with different assay methods or kits cannot be used interchangeably. Performed By: #### K LFRS ####[facility] LABCLIA [id number] [place] [address] [place] Immunoglobulin light chains.kappa/Immunoglo bulin light chains.lambda (S) [Mass ratio] 0.27 Normal 0.26-1.65 [facility] Comment on above: Order Comment: Speci men Type: BLOOD SPECIMENOrdering Facility: [facility] Address: [address] [place] [address] Performed By: #### K LFRS ####[facility] LABIA [id number] [place] [address] [place] Immunoglobulin light chains.lambda.free [Mass/Vol] 74.6 mg/L High 5.7-26.3 [facility] Comment on above: Order Comment: Speci men Type: BLOOD SPECIMENOrdering Facility: [facility] Address: [address] [place] [address] Result Comment: Rare ly, increased serum free light chains levels may not be detected or accurately quantified due to prozone phenomenon or in high viscosity samples using this immunoturbidimetric assay. Correlation with other laboratory results and clinical findings is recommended. The [place] Free Light Chain was performed using the Binding Site Optilite immunoturbidimetric method. Result obtained with different assay methods or kits cannot be used interchangeably. Performed By: #### K LFRS ####[facility] LABCLIA [id number] [place] [address] [place] PROTEIN ELECTROPHORESIS SERU M WITH KAYLA (P)on 04-29-2024 Albumin [Mass/Vol] 3.63 g/dL Normal 3.43-5.41 [facility] Comment on above: Order Comment: Speci men Type: BLOOD SPECIMENOrdering Facility: [facility] Address: [address] [place] [address] Performed By: #### L [id number] ####[facility] LABIA [id number] [place] [address] [place] Alpha 1 globulin Elph [Mass/Vol] 0.39 g/dL Normal 0.18-0.43 [facility] Comment on above: Order Comment: Speci men Type: BLOOD SPECIMENOrdering Facility: [facility] Address: [address] [place] [address] Performed By: #### L [id number] ####[facility] [id number] [place] [address] [place] Alpha 2 globulin Elph [Mass/Vol] 0.91 g/dL Normal 0.42-0.98 [facility] Comment on above: Order Comment: Speci men Type: BLOOD SPECIMENOrdering Facility: [facility] Address: [address] [place] [address] Performed By: #### L [id number] ####[facility] LABIA [id number] [place] [address] [place] Beta globulin Elph [Mass/Vol] 0.48 g/dL Low 0.61-1.17 [facility] Comment on above: Order Comment: Speci men Type: BLOOD SPECIMENOrdering Facility: [facility] Address: [address] [place] [address] Performed By: #### L [id number] ####[facility] LABIA [id number] [place] [address] [place] COMMENT (SERUM PROT ELECTRO) Monoclonal Protein analysis (immunofixation) is not indicated. Normal [facility] Comment on above: Order Comment: Speci men Type: BLOOD SPECIMENOrdering Facility: [facility] Address: [address] [id number] Performed By: #### L [id number] ####[facility] LABCLIA [id number] [place] [address] [place] Gamma globulin Elph [Mass/Vol] 1.90 g/dL High 0.53-1.51 [facility] Comment on above: Order Comment: Speci men Type: BLOOD SPECIMENOrdering Facility: [facility] Address: [address] [place] [address] Performed By: #### L [id number] ####[facility] LABIA [id number] [place] [address] [place] INTERPRETATION COMMENT FOR PROTEIN ELECTROPHORESIS See separate immunofixation report for characterization of monoclonal gammopathy. Normal [facility] Comment on above: Order Comment: Speci men Type: BLOOD SPECIMENOrdering Facility: [facility] Address: [address] [place] [address] Performed By: #### L [id number] ####[facility] LABIA [id number] [place] [address] [place] M-PROTEIN LOCATION Gamma Fraction 1 Normal [facility] Comment on above: Order Comment: Speci men Type: BLOOD SPECIMENOrdering Facility: [facility] Address: [address] [place] [address] Performed By: #### L [id number] ####[facility] LABIA [id number] [place] [id number] [place] Protein Fractions [Interp] An M protein is identified on protein electrophoresis. Abnormal No definitive M protein is identified on protein electrophor esis. [facility] Comment on above: Order Comment: Speci men Type: BLOOD SPECIMENOrdering Facility: [facility] Address: [address] [place], [place] [id number] Performed By: #### L [id number] ####[facility] LABCLIA [id number] [place] [id number] [place] Protein.monoclonal Elph [Mass/Vol] 1.69 g/dL High <=0.00 [facility] Comment on above: Order Comment: Speci men Type: BLOOD SPECIMENOrdering Facility: [facility] Address: [address] [place] [address] Performed By: #### L [id number] ####[facility] LABCLIA [id number] [address] [place] SPE STAFF REVIEW Reviewed by Karena Jacobs M.D., Ph.D Normal [facility] Comment on above: Order Comment: Speci men Type: BLOOD SPECIMENOrdering Facility: [facility] Address: [address] [place] [address] Performed By: #### L [id number] ####[facility] LABCLIA [id number] [place] [address] [place] Prot SerPl-mCncon 10-29-2023 Protein [Mass/Vol] 7.3 g/dL Normal 6.3-8.0 [facility] Comment on above: Order Comment: Speci men Type: BLOOD SPECIMENOrdering Facility: [facility] Address: [address] [place] [address] Performed By: #### 2 [id number] ####[facility] LABIA [id number] [address] [place] Chest WO contraston 10-22 IMPRESSION: Nearly resolved multifocal ground glass opacities throughout both lungs likely infectious/inflammatory. Unchanged radiation fibrosis. Unchanged 5 mm left upper lobe nodule. Transcribe Date/Time: Oct 23 2023 9:47A Dictated by: HENRY OLIVEIRA MD This examination was interpreted and the report reviewed and electronically signed by: HENRY OLIVEIRA MD on Oct 23 2023 10:02AM EST Thank you for allowing us to participate in the care of your patient. Should there be any questions regarding this interpretation, please call [phone]. If you are unable to reach us at the number above, please feel free to contact [facility] at [phone]. DIVISION OF RADIOLOGY * * *Final Report* * * DATE OF EXAM: Oct 22 2023 1:28PM [facility] 0541 - CT CHEST WO IVCON / PROCEDURE REASON: Malignant neoplasm of unspecified part of unspecified bronchus or lung (HCC) * * * * Physician Interpretation * * * * RESULT: EXAMINATION: CHEST CT WITHOUT CONTRAST CLINICAL HISTORY: Malignant neoplasm of unspecified part of unspecified bronchus or lung (HCC) NSCLC Technique: Spiral CT acquisition of the chest from the thoracic inlet to the upper abdomen without contrast. MQ: CTCWOR_4 CT Dose-Length Product: 187 mGy*cm CT Dose Reduction Employed: Automated exposure control (AEC) Comparison: 08/03/2023 and 05/07/2023 RESULT: Lines, tubes, and devices: Right chest wall port tip at the right atrium. Lung parenchyma and airways: Trachea and central airways are patent. Scattered mucoid impactions within the lower lobes. Right upper lobectomy. Emphysematous changes. Radiation fibrosis within the right hilar region similar to prior. Near complete resolution of ill-defined patchy groundglass opacities throughout both lungs. Unchanged 5 mm nodule left upper lobe (image 78). No new suspicious appearing pulmonary nodules. Pleural space: Pleural thickening bilaterally. Calcified right pleural plaques. No pleural effusion. Lower neck, lymph nodes, and mediastinum: No axillary, supraclavicular, mediastinal or hilar lymphadenopathy by CT size criteria. Heart, pericardium, and thoracic vessels: The heart is normal in size. No pericardial effusion. Main pulmonary artery is dilated measuring 3.4 cm. Thoracic aorta normal caliber. Atherosclerotic calcifications of the thoracic aorta and coronary arteries. Bones/Soft Tissues: No aggressive osseous lesions. Remote right-sided rib fractures. Upper abdomen: Visualized upper abdomen is grossly unremarkable. Pyrometallurgical Engineer (topogram) images: Unremarkable. DIVISION OF RADIOLOGY Provider, Elizabeth Torres - 10/23/2023 * * *Final Report* * * DATE OF EXAM: Oct 22 2023 1:28PM [facility] 0541 - CT CHEST WO IVCON / PROCEDURE REASON: Malignant neoplasm of unspecified part of unspecified bronchus or lung (HCC) * * * * Physician Interpretation * * * * RESULT: EXAMINATION: CHEST CT WITHOUT CONTRAST CLINICAL HISTORY: Malignant neoplasm of unspecified part of unspecified bronchus or lung (HCC) NSCLC Technique: Spiral CT acquisition of the chest from the thoracic inlet to the upper abdomen without contrast. MQ: CTCWOR_4 CT Dose-Length Product: 187 mGy*cm CT Dose Reduction Employed: Automated exposure control (AEC) Comparison: 08/03/2023 and 05/07/2023 RESULT: Lines, tubes, and devices: Right chest wall port tip at the right atrium. Lung parenchyma and airways: Trachea and central airways are patent. Scattered mucoid impactions within the lower lobes. Right upper lobectomy. Emphysematous changes. Radiation fibrosis within the right hilar region similar to prior. Near complete resolution of ill-defined patchy groundglass opacities throughout both lungs. Unchanged 5 mm nodule left upper lobe (image 78). No new suspicious appearing pulmonary nodules. Pleural space: Pleural thickening bilaterally. Calcified right pleural plaques. No pleural effusion. Lower neck, lymph nodes, and mediastinum: No axillary, supraclavicular, mediastinal or hilar lymphadenopathy by CT size criteria. Heart, pericardium, and thoracic vessels: The heart is normal in size. No pericardial effusion. Main pulmonary artery is dilated measuring 3.4 cm. Thoracic aorta normal caliber. Atherosclerotic calcifications of the thoracic aorta and coronary arteries. Bones/Soft Tissues: No aggressive osseous lesions. Remote right-sided rib fractures. Upper abdomen: Visualized upper abdomen is grossly unremarkable. Pyrometallurgical Engineer (topogram) images: Unremarkable. IMPRESSION IMPRESSION: Nearly resolved multifocal ground glass opacities throughout both lungs likely infectious/inflammatory. Unchanged radiation fibrosis. Unchanged 5 mm left upper lobe nodule. Transcribe Date/Time: Oct 23 2023 9:47A Dictated by: HENRY OLIVEIRA MD This examination was interpreted and the report reviewed and electronically signed by: HENRY OLIVEIRA MD on Oct 23 2023 10:02AM EST Thank you for allowing us to participate in the care of your patient. Should there be any questions regarding this interpretation, please call [phone]. If you are unable to reach us at the number above, please feel free to contact [facility] at [phone]. [facility] CT Chest WO contrastOrdered By: [facility] Provider on 10-23-[address] [facility] [address] CHEST WO IVCONon 10-22-19 CT CHEST WO IVCON * * *Final Report* * * DATE OF EXAM: Oct 22 2023 1:28PM [facility] 05[address] - CT CHEST WO IVCON / PROCEDURE REASON: Malignant neoplasm of unspecified part of unspecified bronchus or lung (HCC) * * * * Physician Interpretation * * * * RESULT: EXAMINATION: CHEST CT WITHOUT CONTRAST CLINICAL HISTORY: Malignant neoplasm of unspecified part of unspecified bronchus or lung (HCC) NSCLC Technique: Spiral CT acquisition of the chest from the thoracic inlet to the upper abdomen without contrast. MQ: CTCWOR_4 CT Dose-Length Product: 187 mGy*cm CT Dose Reduction Employed: Automated exposure control (AEC) Comparison: 08/03/2023 and 05/07/2023 RESULT: Lines, tubes, and devices: Right chest wall port tip at the right atrium. Lung parenchyma and airways: Trachea and central airways are patent. Scattered mucoid impactions within the lower lobes. Right upper lobectomy. Emphysematous changes. Radiation fibrosis within the right hilar region similar to prior. Near complete resolution of ill-defined patchy groundglass opacities throughout both lungs. Unchanged 5 mm nodule left upper lobe (image 78). No new suspicious appearing pulmonary nodules. Pleural space: Pleural thickening bilaterally. Calcified right pleural plaques. No pleural effusion. Lower neck, lymph nodes, and mediastinum: No axillary, supraclavicular, mediastinal or hilar lymphadenopathy by CT size criteria. Heart, pericardium, and thoracic vessels: The heart is normal in size. No pericardial effusion. Main pulmonary artery is dilated measuring 3.4 cm. Thoracic aorta normal caliber. Atherosclerotic calcifications of the thoracic aorta and coronary arteries. Bones/Soft Tissues: No aggressive osseous lesions. Remote right-sided rib fractures. Upper abdomen: Visualized upper abdomen is grossly unremarkable. Pyrometallurgical Engineer (topogram) images: Unremarkable. IMPRESSION: Nearly resolved multifocal ground glass opacities throughout both lungs likely infectious/inflammatory. Unchanged radiation fibrosis. Unchanged 5 mm left upper lobe nodule. Transcribe Date/Time: Oct 23 2023 9:47A Dictated by: HENRY OLIVEIRA MD This examination was interpreted and the report reviewed and electronically signed by: HENRY OLIVEIRA MD on Apr 23 2024 10:02AM EST Thank you for allowing us to participate in the care of your patient. Should there be any questions regarding this interpretation, please call [phone]. If you are unable to reach us at the number above, please feel free to contact [facility] at [phone]. [id number] Normal [facility] CT Chest WO contraston 10-21 Radiology Study observation (narrative) [facility] CNOVon 09-20-2023 CNOV Office Visit (PAMAVN ) -- RAGHAVENDRA HAERD ([id number]) 1945 M Date Time Provider Department 09/20/23 1:00 PM LEXUS ALBERTS During your visit today, we recorded the following information about you: Pulse Blood pressure Weight 56/minute 129/66 69 kg Lexus Alberts DO 09/20/2023 1:47 PM Signed [facility] Medication Refill Raghavendra Heard September 20, 2023 Medication Refill Appointment Raghavendra Heard is a 78 year old male who presents to [facility], accompanied by spouse, Radha, for follow-up. SUBJECTIVE: Raghavendra Heard reports the following new complaints: Patient states that the Gabapentin worked better than the Lyrica. The pain is located in the feet. He reports the pain has been occuring for 15 years. He report the pain is constant. He describes the pain as tingling. He rates his pain at a 0/10 currently and ranges from a 0 to a 9 on a 0-10 scale. His pain is aggravated by lifting. The pain is mitigated by medications. Date of last visit: 05/03/2023 PLAN: 1) Continue Cymbalta 60 mg twice daily. 2) Discontinue Gabapentin, start Lyrica 75 mg TID. 3) Discuss with Dr. Becker the need for electric scooter as well as considering opioid rotation. 4) RTC in 8 weeks F/U The above plan and management options were discussed at length with patient. Patient is in agreement with the above and verbalized understanding. Lexus Alberts, May His current pain medication regimen is: 1) Narcotics: Hydrocodone 5 mg/Acetaminophen 325 mg two tablets every 6 yours as needed 2) NSAIDS: Meloxicam 15mg once daily 3) Membrane Stabilizers: Cymbalta 60 mg two times a day Pregabalin 75 mg take 1 capsule three times a day 4) Other: None Since his last visit the patient reported inadequate relief of lower extremity peripheral neuropathy being on Lyrica compared to Gabapentin. He requests refills on the following medications: 1) Narcotics: n/a 2) NSAIDS: prescribed Meloxicam from another provider 3) Membrane Stabilizers: switch back to Gabapentin 4) Other: cymbalta Current Outpatient Medications Medication Sig HYDROcodone-acetaminophen (NORCO) 5-325 mg per tablet Take 2 tablets by mouth every 6 hours as needed for up to 30 days. clonazePAM (KLONOPIN) 1 mg tablet TAKE 1 TABLET BY MOUTH THREE TIMES A DAY NEEDED FOR UP TO 30 DAYS meloxicam (MOBIC) 15 mg tablet Take 1 tablet by mouth once daily. diazePAM (VALIUM) 5 mg tablet Take 1 tablet by mouth every 8 hours as needed for up to 120 days. TRELEGY ELLIPTA 100-62.5-25 mcg inhalation powder INHALE 1 PUFF ONCE DAILY FOR 30 DAYS nitroglycerin sublingual (NITROQUICK) 0.4 mg SL tablet Dissolve 1 tablet under the tongue every 5 minutes as needed. senna (SENNA LAXATIVE) 8.6 mg tab Take 2 tablets by mouth two times a day. docusate sodium (COLACE) 100 mg capsule Take 2 capsules by mouth two times a day. albuterol (PROVENTIL) 2.5 mg /3 mL (0.083 %) nebulizer solution 2.5 mg every 4 hours as needed. ANORO ELLIPTA 62.5-25 mcg/actuation inhaler INHALE 1 PUFF INTO THE LUNGS EVERY DAY FOR 90 DAYS DULoxetine (CYMBALTA) 60 mg capsule Take 1 capsule by mouth two times a day. predniSONE (DELTASONE) 10 mg tablet Take 1 tablet by mouth once daily. Take 4 daily x 5 days, then 2 daily x 5 days, then 1 daily or as directed. naloxone 4 mg/actuation nasal spray (NARCAN) Use 1 spray in one nostril as needed for overdose. May repeat every 2 to 3 min in alternating nostrils until medical assistance is available finasteride (PROSCAR) 5 mg tablet triamterene-hydroCHLOROthi azide (MAXZIDE-25) 37.5-25 mg per tablet TAKE 1 TABLET BY MOUTH EVERY DAY IN THE MORNING ondansetron (ZOFRAN) 8 mg tablet Take 1 tablet by mouth every 8 hours as needed for nausea/vomiting. prochlorperazine (COMPAZINE) 10 mg tablet Take 1 tablet by mouth every 6 hours as needed. metoprolol succinate ER (TOPROL XL) 25 mg 24 hr tablet Take 25 mg by mouth once daily. mv-mn/iron/folic acid/herb 190 (VITAMIN D3 COMPLETE ORAL) Take by mouth. ZINC ORAL Take by mouth. tamsulosin ER (FLOMAX) 0.4 mg cap Aspirin 81 mg CpDR Take 81 mg by mouth once daily. atorvastatin 40 mg tablet Take 40 mg by mouth once daily. DOCOSAHEXANOIC ACID/EPA (FISH OIL ORAL) Take by mouth. gabapentin (NEURONTIN) 300 mg capsule Take 2 capsules by mouth three times a day for 90 days. No current facility-administered medications for this visit. ALLERGIES No Known Allergies Review of Symptoms: General: Denies unintentional weight loss, fever, or fatigue. GI: Denies incontinence, nausea, vomiting, constipation, or abdominal pain. : Denies bladder incontinence, urgency,and increased frequency. Neurologic: Positive for numbness and tingling bilateral toes Does the patient feel safe at home Yes Risk assessment at risk due to fall: NONE September 20, 2023 Time: 1315 (more content not included)... Normal [facility] CBC W Auto Differential pane l (Bld)on 08-06-2023 Basophils (Bld) [#/Vol] 0.03 10*3/uL <0.11 k/uL [facility] Basophils/100 WBC (Bld) 0.6 % [facility] Differential cell count method Nom (Bld) Auto [facility] Eosinophils (Bld) [#/Vol] 0.15 10*3/uL <0.46 k/uL [facility] Eosinophils/100 WBC (Bld) 3.2 % [facility] Erythrocyte distribution width (RBC) [Ratio] 13.1 % 11.5 - 15.0 % [facility] Hematocrit (Bld) [Volume fraction] 30.8 % Low 39.0 - 51.0 % [facility] Hemoglobin (Bld) [Mass/Vol] 10.3 g/dL Low 13.0 - 17.0 g/dL [facility] Immature granulocytes (Bld) [#/Vol] <0.10 k/uL [facility] Immature granulocytes/100 WBC (Bld) 0.4 % [facility] Lymphocytes (Bld) [#/Vol] 1.78 10*3/uL 1.00 - 4.00 k/uL [facility] Lymphocytes/100 WBC (Bld) 37.6 % [facility] MCH (RBC) [Entitic mass] 34.9 pg High 26.0 - 34.0 pg [facility] MCHC (RBC) [Mass/Vol] 33.4 g/dL 30.5 - 36.0 g/dL [facility] MCV (RBC) [Entitic vol] 104.4 fL High 80.0 - 100.0 fL [facility] Monocytes (Bld) [#/Vol] 0.49 10*3/uL <0.87 k/uL [facility] Monocytes/100 WBC (Bld) 10.4 % [facility] Neutrophils (Bld) [#/Vol] 2.26 10*3/uL 1.45 - 7.50 k/uL [facility] Neutrophils/100 WBC (Bld) 47.8 % [facility] Nucleated RBC (Bld) [#/Vol] <0.01 k/uL [facility] Nucleated RBC/100 WBC (Bld) [Ratio] 0.0 /100 WBC [facility] Platelet mean volume (Bld) [Entitic vol] 9.7 fL 9.0 - 12.7 fL [facility] Platelets (Bld) [#/Vol] 247 10*3/uL 150 - 400 k/uL [facility] RBC (Bld) [#/Vol] 2.95 10*6/uL Low 4.20 - 6.0 0 m/uL [facility] WBC (Bld) [#/Vol] 4.73 10*3/uL 3.70 - 11.00 k/uL [facility] Basophils (Bld) [#/Vol] 0.03 10*3/uL Normal <0.11 [facility] Comment on above: Order Comment: Speci men Type: BLOOD SPECIMENOrdering Facility: [facility] Address: [address] [place] [address] Performed By: #### 5 7021-8 ####[facility] LABCLIA [id number] [place] [address] Basophils/100 WBC (Bld) 0.6 % Normal [facility] Comment on above: Order Comment: Speci men Type: BLOOD SPECIMENOrdering Facility: [facility] Address: [address] [place] [address] Performed By: #### 5 7021-8 ####[facility] LABCLIA [id number] [place] [address] Differential cell count method Nom (Bld) Auto Normal [facility] Comment on above: Order Comment: Speci men Type: BLOOD SPECIMENOrdering Facility: [facility] Address: [address] [place] [address] Performed By: #### 5 7021-8 ####[facility] LABCLIA [id number] [place] [address] Eosinophils (Bld) [#/Vol] 0.15 10*3/uL Normal <0.46 [facility] Comment on above: Order Comment: Speci men Type: BLOOD SPECIMENOrdering Facility: [facility] Address: [address] [place] [address] Performed By: #### 5 7021-8 ####[facility] LABCLIA [id number] [place] [address] Eosinophils/100 WBC (Bld) 3.2 % Normal [facility] Comment on above: Order Comment: Speci men Type: BLOOD SPECIMENOrdering Facility: [facility] Address: [address] [place] [address] Performed By: #### 5 7021-8 ####[facility] LABCLIA [id number] [place] [address] Erythrocyte distribution width (RBC) [Ratio] 13.1 % Normal 11.5-15.0 [facility] Comment on above: Order Comment: Speci men Type: BLOOD SPECIMENOrdering Facility: [facility] Address: [address] [place] [address] Performed By: #### 5 7021-8 ####[facility] LABCLIA [id number] [place] [address] Hematocrit (Bld) [Volume fraction] 30.8 % Low 39.0-51.0 [facility] Comment on above: Order Comment: Speci men Type: BLOOD SPECIMENOrdering Facility: [facility] Address: [address] [place] [address] Performed By: #### 5 7021-8 ####[facility] LABCLIA [id number] [place] [address] Hemoglobin (Bld) [Mass/Vol] 10.3 g/dL Low 13.0-17.0 [facility] Comment on above: Order Comment: Speci men Type: BLOOD SPECIMENOrdering Facility: [facility] Address: [address] [place] [address] Performed By: #### 5 7021-8 ####[facility] LABCLIA [id number] [place] [address] Immature granulocytes (Bld) [#/Vol] 10*3/uL Normal <0.10 [facility] Comment on above: Order Comment: Speci men Type: BLOOD SPECIMENOrdering Facility: [facility] Address: [address] [place] [address] Performed By: #### 5 7021-8 ####[facility] LABCLIA [id number] [place] [address] Immature granulocytes/100 WBC (Bld) 0.4 % Normal [facility] Comment on above: Order Comment: Speci men Type: BLOOD SPECIMENOrdering Facility: [facility] Address: [address] [place] [address] Performed By: #### 5 7021-8 ####[facility] LABCLIA [id number] [place] [address] Lymphocytes (Bld) [#/Vol] 1.78 10*3/uL Normal 1.00-4.00 [facility] Comment on above: Order Comment: Speci men Type: BLOOD SPECIMENOrdering Facility: [facility] Address: [address] [place] [address] Performed By: #### 5 7021-8 ####[facility] LABCLIA [id number] [place] [address] Lymphocytes/100 WBC (Bld) 37.6 % Normal [facility] Comment on above: Order Comment: Speci men Type: BLOOD SPECIMENOrdering Facility: [facility] Address: [address] [place] [address] Performed By: #### 5 7021-8 ####[facility] LABCLIA [id number] [place] [address] MCH (RBC) [Entitic mass] 34.9 pg High 26.0-34.0 [facility] Comment on above: Order Comment: Speci men Type: BLOOD SPECIMENOrdering Facility: [facility] Address: [address] [place] [address] Performed By: #### 5 7021-8 ####[facility] LABCLIA [id number] [place] [address] MCHC (RBC) [Mass/Vol] 33.4 g/dL Normal 30.5-36.0 [facility] Comment on above: Order Comment: Speci men Type: BLOOD SPECIMENOrdering Facility: [facility] Address: [address] [place] [address] Performed By: #### 5 7021-8 ####[facility] LABCLIA [id number] [place] [address] MCV (RBC) [Entitic vol] 104.4 fL High 80.0-100.0 [facility] Comment on above: Order Comment: Speci men Type: BLOOD SPECIMENOrdering Facility: [facility] Address: [address] [place] [address] Performed By: #### 5 7021-8 ####[facility] LABCLIA [id number] [place] [address] Monocytes (Bld) [#/Vol] 0.49 10*3/uL Normal <0.87 [facility] Comment on above: Order Comment: Speci men Type: BLOOD SPECIMENOrdering Facility: [facility] Address: [address] [place] [address] Performed By: #### 5 7021-8 ####[facility] LABCLIA [id number] [place] [address] Monocytes/100 WBC (Bld) 10.4 % Normal [facility] Comment on above: Order Comment: Speci men Type: BLOOD SPECIMENOrdering Facility: [facility] Address: [address] [place] [address] Performed By: #### 5 7021-8 ####[facility] LABCLIA [id number] [place] [address] Neutrophils (Bld) [#/Vol] 2.26 10*3/uL Normal 1.45-7.50 [facility] Comment on above: Order Comment: Speci men Type: BLOOD SPECIMENOrdering Facility: [facility] Address: [address] [place] [address] Performed By: #### 5 7021-8 ####[facility] LABCLIA [id number] [place] [address] Neutrophils/100 WBC (Bld) 47.8 % Normal [facility] Comment on above: Order Comment: Speci men Type: BLOOD SPECIMENOrdering Facility: [facility] Address: [address] [place] [address] Performed By: #### 5 7021-8 ####[facility] LABCLIA [id number] [place] [address] Nucleated RBC (Bld) [#/Vol] 10*3/uL Normal <0.01 [facility] Comment on above: Order Comment: Speci men Type: BLOOD SPECIMENOrdering Facility: [facility] Address: [address] [place] [address] Performed By: #### 5 7021-8 ####[facility] LABCLIA [id number] [place] [address] Nucleated RBC/100 WBC (Bld) [Ratio] 0.0 /100 WBC Normal [facility] Comment on above: Order Comment: Speci men Type: BLOOD SPECIMENOrdering Facility: [facility] Address: [address] [place] [address] Performed By: #### 5 7021-8 ####[facility] LABCLIA [id number] [place] [address] Platelet mean volume (Bld) [Entitic vol] 9.7 fL Normal 9.0-12.7 [facility] Comment on above: Order Comment: Speci men Type: BLOOD SPECIMENOrdering Facility: [facility] Address: [address] [place] [address] Performed By: #### 5 7021-8 ####[facility] LABCLIA [id number] [place] [address] Platelets (Bld) [#/Vol] 247 10*3/uL Normal 150-400 [facility] Comment on above: Order Comment: Speci men Type: BLOOD SPECIMENOrdering Facility: [facility] Address: [address] [place] [address] Performed By: #### 5 7021-8 ####[facility] LABCLIA [id number] [place] [address] RBC (Bld) [#/Vol] 2.95 10*6/uL Low 4.20-6.00 [facility] Comment on above: Order Comment: Speci men Type: BLOOD SPECIMENOrdering Facility: [facility] Address: [address] [place] [address] Performed By: #### 5 7021-8 ####[facility] H[facility]PITALIA [id number] [place] [address] WBC (Bld) [#/Vol] 4.73 10*3/uL Normal 3.70-11.00 [facility] Comment on above: Order Comment: Speci men Type: BLOOD SPECIMENOrdering Facility: [facility] Address: [address] [place] [address] Performed By: #### 5 7021-8 ####[facility] LABIA [id number] [place] [address] CNOVSPon 08-06-2023 CNOVSP Visit (SP) Office (H [facility]) -- RAGHAVENDRA HEARD ([id number]) 1945 M Date Time Provider Department 08/06/23 10:15 AM JA BECKER During your visit today, we recorded the following information about you: Temperature Pulse Respiration Blood pressure 97 degrees 58/minute 18/minute 170/68 Weight Height 69.5 kg 1.727 m Ja Becker MD 08/06/2023 7:53 PM Signed PATIENT NAME: Raghavendra Heard DATE: 08/06/2023 PRIMARY CARE PHYSICIAN: Dr. Prerna Grissom II OTHER PHYSICIANS: Dr. Toledo (Cardiology [facility]), Dr. Zhang, Dr. Hernández (Wardrobe Manager in [place]), Dr. Stinson (Thoracic Surgery in [place]), Dr. Alberts Portions of this encounter note have been copied from the note from 07/09/2023 and has been updated where appropriate, and reflect my current medical decision making from today. CC: This is a 78 year old male with a history of recurrent lung cancer and multiple myeloma, seen for for scheduled follow-up. INTERIM HISTORY: Since the patient's last visit here he weaned off steroids as of 2 weeks ago. Overall he feels about the same. Shortness of breath and productive cough are unchanged. No hemoptysis. No recent fevers or signs of infection. MEDICATIONS: clonazePAM (KLONOPIN) 1 mg tablet TAKE 1 TABLET BY MOUTH THREE TIMES A DAY NEEDED FOR UP TO 30 DAYS HYDROcodone-acetaminophen (NORCO) 5-325 mg per tablet Take 2 tablets by mouth every 6 hours as needed for up to 30 days. TRELEGY ELLIPTA 100-62.5-25 mcg inhalation powder INHALE 1 PUFF ONCE DAILY FOR 30 DAYS nitroglycerin sublingual (NITROQUICK) 0.4 mg SL tablet Dissolve 1 tablet under the tongue every 5 minutes as needed. senna (SENNA LAXATIVE) 8.6 mg tab Take 2 tablets by mouth two times a day. docusate sodium (COLACE) 100 mg capsule Take 2 capsules by mouth two times a day. meloxicam (MOBIC) 15 mg tablet Take 1 tablet by mouth once daily. albuterol (PROVENTIL) 2.5 mg /3 mL (0.083 %) nebulizer solution 2.5 mg every 4 hours as needed. ANORO ELLIPTA 62.5-25 mcg/actuation inhaler INHALE 1 PUFF INTO THE LUNGS EVERY DAY FOR 90 DAYS pregabalin (LYRICA) 75 mg capsule Take 1 capsule by mouth three times a day for 90 days. DULoxetine (CYMBALTA) 60 mg capsule Take 1 capsule by mouth two times a day. predniSONE (DELTASONE) 10 mg tablet Take 1 tablet by mouth once daily. Take 4 daily x 5 days, then 2 daily x 5 days, then 1 daily or as directed. naloxone 4 mg/actuation nasal spray (NARCAN) Use 1 spray in one nostril as needed for overdose. May repeat every 2 to 3 min in alternating nostrils until medical assistance is available finasteride (PROSCAR) 5 mg tablet triamterene-hydroCHLOROthi azide (MAXZIDE-25) 37.5-25 mg per tablet TAKE 1 TABLET BY MOUTH EVERY DAY IN THE MORNING ondansetron (ZOFRAN) 8 mg tablet Take 1 tablet by mouth every 8 hours as needed for nausea/vomiting. prochlorperazine (COMPAZINE) 10 mg tablet Take 1 tablet by mouth every 6 hours as needed. metoprolol succinate ER (TOPROL XL) 25 mg 24 hr tablet Take 25 mg by mouth once daily. mv-mn/iron/folic acid/herb 190 (VITAMIN D3 COMPLETE ORAL) Take by mouth. ZINC ORAL Take by mouth. tamsulosin ER (FLOMAX) 0.4 mg cap Aspirin 81 mg CpDR Take 81 mg by mouth once daily. atorvastatin 40 mg tablet Take 40 mg by mouth once daily. DOCOSAHEXANOIC ACID/EPA (FISH OIL ORAL) Take by mouth. ALLERGIES: Patient has no known allergies. PAST MEDICAL HISTORY: PAST MEDICAL HISTORY Diagnosis Date Anxiety Enlarged prostate HTN (hypertension) Hypercholesteremia Multiple myeloma, without mention of having achieved remission PAST SURGICAL HISTORY: PAST SURGICAL HISTORY Procedure Laterality Date REMOVAL OF LUNG,LOBECTOMY Right 04/24/2019 right upper lobe REVIEW OF SYSTEMS: As above. PHYSICAL EXAM: Vitals: BP 170/68 Pulse (!) 58 Temp 36.1 ?C (97 ?F) (Temporal) Resp 18 Ht 172.7 cm (5' 7.99 ) Wt 69.5 kg (153 lb 3.5 oz) SpO2 93% BMI 23.30 kg/m? ECOG 1 General: Alert and oriented, no distress, pleasant and cooperative. Heart: Regular, normal S1 and S2, no murmurs, rubs, or gallops Lungs: Clear to auscultation bilaterally Abdomen: Benign Extremities: Feet/ankles without edema, posterior tibial pulses full and symmetrical PATHOLOGY: 06/14/2022 Lymph node, 10 R, EBUS transbronchial biopsy Adenocarcinoma. Immunohistochemistry: PD-L1 expression less than 1% ALK rearrangement 0% BRAF - No variant detected [Reference Sequence: ([id number])]. EGFR - No variant detected [Reference Sequence: ([id number])]. HER2 (ERBB2) - No variant detected [Reference Sequence: ([id number])]. KRAS - No variant detected [Reference Sequence: ([id number])]. MET - No variant detected [Reference Sequence: ([id number])]. RADIOLOGIC STUDIES: 08/03/2023 CT chest IMPRESSION: 1. Fluctuating patchy opacities and groundglass opacities, some have increased (more content not included)... Normal [facility] Comprehensive metabolic 2000 panelon 08-06-2023 Albumin [Mass/Vol] 3.6 g/dL Low 3.9 - 4.9 g/dL [facility] ALP [Catalytic activity/Vol] 78 U/L 38 - 113 U/L [facility] ALT [Catalytic activity/Vol] 21 U/L 10 - 54 U/L [facility] Anion gap [Moles/Vol] 10 mmol/L 9 - 18 mmol/L [facility] AST [Catalytic activity/Vol] 17 U/L 14 - 40 U/L [facility] Bilirubin [Mass/Vol] Low 0.2 - 1 .3 mg/dL [facility] Calcium [Mass/Vol] 9.4 mg/dL 8.5 - 10. 2 mg/dL [facility] Chloride [Moles/Vol] 108 mmol/L High 97 - 10 5 mmol/L [facility] CO2 [Moles/Vol] 23 mmol/L 22 - 30 mmol/L [facility] Creatinine [Mass/Vol] 0.85 mg/dL 0.73 - 1.22 mg/dL [facility] Estimated Glomerular Filtration Rate 90 mL/min/1.73m >=60 mL/min/1.73 m [facility] Glucose [Mass/Vol] 126 mg/dL High 74 - 99 mg/dL [facility] Potassium [Moles/Vol] 3.8 mmol/L 3.7 - 5.1 mmol/L [facility] Protein [Mass/Vol] 7.5 g/dL 6.3 - 8.0 g/dL [facility] Sodium [Moles/Vol] 141 mmol/L 136 - 144 mmol/L [facility] Urea nitrogen [Mass/Vol] 31 mg/dL High 9 - 24 mg/dL [facility] Albumin [Mass/Vol] 3.6 g/dL Low 3.9-4.9 [facility] Comment on above: Order Comment: Speci men Type: BLOOD SPECIMEN [facility] Address: [address] [place] [address] Performed By: #### L [id number] #### [facility] CLIA [id number] [address] [place] [address] [place] ALP [Catalytic activity/Vol] 78 U/L Normal 38-113 [facility] Comment on above: Order Comment: Speci men Type: BLOOD SPECIMEN [facility]: [facility] Address: [address] [place] [address] Performed By: #### L [id number] #### [facility] CLIA [id number] [address] [place] [address] [place] ALT [Catalytic activity/Vol] 21 U/L Normal 10-54 [facility] Comment on above: Order Comment: Speci men Type: BLOOD SPECIMEN [facility] Address: [address] [place] [address] Performed By: #### L [id number] #### [facility] CLIA [id number] [address] [place] [address] [place] Anion gap [Moles/Vol] 10 mmol/L Normal 9-18 [facility] Comment on above: Order Comment: Speci men Type: BLOOD SPECIMEN [facility] Address: [address] [place] [address] Performed By: #### L [id number] #### [facility] CLIA [id number] [address] [place] [address] [place] AST [Catalytic activity/Vol] 17 U/L Normal 14-40 [facility] Comment on above: Order Comment: Speci men Type: BLOOD SPECIMEN [facility]ing Facility: [facility] Address: [address] [place], [place] [address] Performed By: #### L [id number] #### [facility] CLIA [id number] [address] [place] [address] [place] Bilirubin [Mass/Vol] mg/dL Low 0.2-1.3 [facility] Comment on above: Order Comment: Speci men Type: BLOOD SPECIMEN [facility] Facility: [facility] Address: [address] [place], [place] [address] Performed By: #### L [id number] #### [facility] CLIA [id number] [address] [place] [address] [place] Calcium [Mass/Vol] 9.4 mg/dL Normal 8.5-10.2 [facility] Comment on above: Order Comment: Speci men Type: BLOOD SPECIMEN [facility] Facility: [facility] Address: [address] [place] [address] Performed By: #### L [id number] #### [facility] CLIA [id number] [address] [place] [address] [place] Chloride [Moles/Vol] 108 mmol/L High 97-105 [facility] Comment on above: Order Comment: Speci men Type: BLOOD SPECIMEN [facility] Facility: [facility] Address: [address] [place] [address] Performed By: #### L [id number] #### [facility] CLIA [id number] [address] [place] [address] [place] CO2 [Moles/Vol] 23 mmol/L Normal 22-30 [facility] Comment on above: Order Comment: Speci men Type: BLOOD SPECIMEN [facility]: [facility] Address: [address] [place] [address] Performed By: #### L [id number] #### [facility] CLIA [id number] [address] [place] [address] [place] Creatinine [Mass/Vol] 0.85 mg/dL Normal 0.73-1.22 [facility] Comment on above: Order Comment: Speci men Type: BLOOD SPECIMEN [facility] Facility: [facility] Address: [address] [place] [address] Performed By: #### L [id number] #### [facility] CLIA [id number] [address] [place] [address] [place] Creatinine and Glomerular filtration rate.predicted panel (S/P/Bld) 90 mL/min/1.73m??? Normal >=60 [facility] Comment on above: Order Comment: Julio gilbert Type: BLOOD SPECIMEN [facility]ing Facility: [facility] Address: [address] [place] [address] Result Comment: Carol mated Glomerular Filtration Rate (eGFR) is calculated using the 2020 CKD-EPI creatinine equation. This equation utilizes serum creatinine, sex, and age as parameters. The creatinine assay has traceable calibration to isotope dilution-mass spectrometry. Refer to KDIGO guidelines for clinical interpretation. In patients with unstable renal function, e.g. those with acute kidney injury, the eGFR may not accurately reflect actual GFR. Performed By: #### L [id number] #### [facility] CLIA [id number] [address] [place] [address] [place] Glucose [Mass/Vol] 126 mg/dL High 74-99 [facility] Comment on above: Order Comment: Julio gilbert Type: BLOOD SPECIMEN [facility]ing Facility: [facility] Address: [address] [place] [address] Result Comment: The [place] [employer] (ADA) provides guidance for cutoff values for fasting glucose and random glucose. The ADA defines fasting as no caloric intake for at least 8 hours. Fasting plasma glucose results between 100 to 125 mg/dL indicate increased risk for diabetes (prediabetes). Fasting plasma glucose results greater than or equal to 126 mg/dL meet the criteria for diagnosis of diabetes. In the absence of unequivocal hyperglycemia, results should be confirmed by repeat testing. In a patient with classic symptoms of hyperglycemia or hyperglycemic crisis, random plasma glucose results greater than or equal to 200 mg/dL meet the criteria for diagnosis of diabetes. Reference: Standards of Medical Care in Diabetes 2016, [place] [employer]. Diabetes Care. 2016.39(Suppl 1). Performed By: #### L [id number] #### [facility] CLIA [id number] [address] [place] [address] [place] Potassium [Moles/Vol] 3.8 mmol/L Normal 3.7-5.1 [facility] Comment on above: Order Comment: Speci men Type: BLOOD SPECIMEN [facility]ing Facility: [facility] Address: [address] [place] [address] Performed By: #### L [id number] #### [facility] CLIA [id number] [address] [place] [address] [place] Protein [Mass/Vol] 7.5 g/dL Normal 6.3-8.0 [facility] Comment on above: Order Comment: Speci men Type: BLOOD SPECIMEN Ordering Facility: [facility] Address: [address] [place] [address] Performed By: #### L [id number] #### [facility] CLIA [id number] [address] [place] [address] [place] Sodium [Moles/Vol] 141 mmol/L Normal 136-144 [facility] Comment on above: Order Comment: Speci men Type: BLOOD SPECIMEN Ordering Facility: [facility] Address: [address] [place] [address] Performed By: #### L [id number] #### [facility] CLIA [id number] [address] [place] [address] [place] Urea nitrogen [Mass/Vol] 31 mg/dL High 9-24 [facility] Comment on above: Order Comment: Speci men Type: BLOOD SPECIMEN Ordering Facility: [facility] Address: [address] [place] [address] Performed By: #### L [id number] #### [facility] CLIA [id number] [address] [place] [address] [place] IMMUNOFIXATION SCREEN, SERUM on 08-06-2023 INTERPRETATION (MPA) Atypical restricted bands are present in the IgG and lambda regions. Consistent with IgG lambda monoclonal gammopathy. Normal [facility] Comment on above: Order Comment: Speci men Type: BLOOD SPECIMENOrdering Facility: [facility] Address: [address] [place] [address] Performed By: #### I [facility] ####[facility] [id number] [address] [place] MPA RESULT M protein is present. Abnormal No M protein is identified. [facility] Comment on above: Order Comment: Speci men Type: BLOOD SPECIMENOrdering Facility: [facility] Address: [address] [place] [address] Performed By: #### I FESC ####[facility] [id number] [address] [place] STAFF REVIEW (MPA) Reviewed by Dr. Celena Grande MD Normal [facility] Comment on above: Order Comment: Speci men Type: BLOOD SPECIMENOrdering Facility: [facility] Address: [address] [place] [address] Performed By: #### I FESC ####[facility] [id number] [place] [address] [place] IMMUNOGLOBULINS GAMon 2023 IgA [Mass/Vol] 42 mg/dL Low 70-400 [facility] Comment on above: Order Comment: Speci men Type: BLOOD SPECIMENOrdering Facility: [facility] Address: [address] [place] [address] Performed By: #### S ERIMM ####[facility] [id number] [place] [address] [place] IgG [Mass/Vol] 2072 mg/dL High 700-1600 [facility] Comment on above: Order Comment: Speci men Type: BLOOD SPECIMENOrdering Facility: [facility] Address: [address] [place] [address] Performed By: #### S ERIMM ####[facility] [id number] [place] [address] [place] IgM [Mass/Vol] 12 mg/dL Low 40-230 [facility] Comment on above: Order Comment: Speci men Type: BLOOD SPECIMENOrdering Facility: [facility] Address: [address] [place] [address] Performed By: #### S ERIMM ####[facility] LABIA [id number] [place] [address] [place] KAPPA/LOMBARDI,FREE,SERon 2023 Immunoglobulin light chains.kappa.free (S) [Mass/Vol] 21.5 mg/L High 3.3-19.4 [facility] Comment on above: Order Comment: Speci men Type: BLOOD SPECIMENOrdering Facility: [facility] Address: [address] [place] [address] Result Comment: Rare ly, increased serum free light chains levels may not be detected or accurately quantified due to prozone phenomenon or in high viscosity samples using this immunoturbidimetric assay. Correlation with other laboratory results and clinical findings is recommended. The [place] Free Light Chain was performed using the Binding Site Optilite immunoturbidimetric method. Result obtained with different assay methods or kits cannot be used interchangeably. Performed By: #### K LFRS ####[facility] LABIA [id number] [place] [address] [place] Immunoglobulin light chains.kappa/Immunoglo bulin light chains.lambda (S) [Mass ratio] 0.24 Low 0.26-1.65 [facility] Comment on above: Order Comment: Speci men Type: BLOOD SPECIMENOrdering Facility: [facility] Address: [address] [place] [address] Performed By: #### K LFRS ####[facility] LABIA [id number] [place] [address] [place] Immunoglobulin light chains.lambda.free [Mass/Vol] 89.8 mg/L High 5.7-26.3 [facility] Comment on above: Order Comment: Speci men Type: BLOOD SPECIMENOrdering Facility: [facility] Address: [address] [place] [address] Result Comment: Rare ly, increased serum free light chains levels may not be detected or accurately quantified due to prozone phenomenon or in high viscosity samples using this immunoturbidimetric assay. Correlation with other laboratory results and clinical findings is recommended. The [place] Free Light Chain was performed using the Binding Site Optilite immunoturbidimetric method. Result obtained with different assay methods or kits cannot be used interchangeably. Performed By: #### K LFRS ####[facility] LABCLIA [id number] [place] [address] [place] PROTEIN ELECTROPHORESIS SERU M (P)on 08-06-2023 Albumin [Mass/Vol] 3.10 g/dL Low 3.43-5.41 [facility] Comment on above: Order Comment: Speci men Type: BLOOD SPECIMEN [facility] Address: [address] [place] [address] Performed By: #### L [id number] #### [facility] CLIA [id number] [address] [place] [address] [place] Alpha 1 globulin Elph [Mass/Vol] 0.45 g/dL High 0.18-0.43 [facility] Comment on above: Order Comment: Speci men Type: BLOOD SPECIMEN [facility]ing Facility: [facility] Address: [address] [place] [address] Performed By: #### L [id number] #### [facility] CLIA [id number] [address] [place] [address] [place] Alpha 2 globulin Elph [Mass/Vol] 1.03 g/dL High 0.42-0.98 [facility] Comment on above: Order Comment: Speci men Type: BLOOD SPECIMEN [facility]ing Facility: [facility] Address: [address] [place] [address] Performed By: #### L [id number] #### [facility] CLIA [id number] [address] [place] [address] [place] Beta globulin Elph [Mass/Vol] 0.48 g/dL Low 0.61-1.17 [facility] Comment on above: Order Comment: Speci men Type: BLOOD SPECIMEN [facility]ing Facility: [facility] Address: [address] [place], [place] [address] Performed By: #### L [id number] #### [facility] CLIA [id number] [address] [place] [address] [place] Gamma globulin Elph [Mass/Vol] 1.75 g/dL High 0.53-1.51 [facility] Comment on above: Order Comment: Speci men Type: BLOOD SPECIMEN [facility]ing [facility]: [facility] Address: [address] [place] [address] Performed By: #### L [id number] #### [facility] CLIA [id number] [address] [place] [address] [place] INTERPRETATION COMMENT FOR PROTEIN ELECTROPHORESIS See separate immunofixation report for characterization of monoclonal gammopathy. Normal [facility] Comment on above: Order Comment: Speci men Type: BLOOD SPECIMEN [facility]ing [facility]: [facility] Address: [address] [place] [address] Performed By: #### L [id number] #### [facility] CLIA [id number] [address] [place] [address] [place] M-PROTEIN LOCATION Gamma Fraction 1 Normal [facility] Comment on above: Order Comment: Speci men Type: BLOOD SPECIMEN [facility]ing [facility]: [facility] Address: [address] [place] [address] Performed By: #### L [id number] #### [facility] CLIA [id number] [address] [place] [address] [place] Protein Fractions [Interp] An M protein is identified on protein electrophoresis. Abnormal No definitive M protein is identified on protein electrophor esis. [facility] Comment on above: Order Comment: Speci men Type: BLOOD SPECIMEN [facility]ing Facility: [facility] Address: [address] [place], [place] [address] Performed By: #### L [id number] #### [facility] CLIA [id number] [address] [place] [address] [place] Protein.monoclonal Elph [Mass/Vol] 1.62 g/dL High <=0.00 [facility] Comment on above: Order Comment: Speci men Type: BLOOD SPECIMEN [facility]ing [facility]: [facility] Address: [address] [place] [address] Performed By: #### L [id number] #### [facility] CLIA [id number] [address] [place] [address] [place] SPE STAFF REVIEW Reviewed by Dr. Celena Grande MD [facility] Comment on above: Order Comment: Speci men Type: BLOOD SPECIMEN [facility]ing [facility]: [facility] Address: [address] [place] [address] Performed By: #### L [id number] #### [facility] CLIA [id number] [address] [place] [address] [place] Prot SerPl-mCncon 08-06-2023 Protein [Mass/Vol] 6.8 g/dL Normal 6.3-8.0 [facility] Comment on above: Order Comment: Speci men Type: BLOOD SPECIMENOrdering Facility: [facility] Address: [address] [place] [address] Performed By: #### 2 885-2 ####[facility] LABCLIA [id number] [place] [address] [place] CT CHEST WO IVCONon 08-03-[address] CHEST WO IVCON * * *Final Report* * * DATE OF EXAM: Aug 03 2023 9:52AM [facility] 0541 - CT CHEST WO IVCON / PROCEDURE REASON: Malignant neoplasm of unspecified part of unspecified bronchus or lung (HCC) * * * * Physician Interpretation * * * * RESULT: EXAMINATION: CHEST CT WITHOUT CONTRAST CLINICAL HISTORY: Malignant neoplasm of unspecified part of unspecified bronchus or lung (HCC) Technique: Spiral CT acquisition of the chest from the thoracic inlet to the upper abdomen without contrast. MQ: CTCWO_6 CT Radiation dose: Integrated Dose-length product (DLP) for this visit = 207 mGy*cm CT Dose Reduction Employed: Automated exposure control (AEC) Comparison: 05/07/23 RESULT: Limitations: None. Lines, tubes, and devices: Right-sided Port-A-Cath. 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 Mild emphysematous changes of the lungs. Right perihilar consolidative opacities, stable. Narrowing and opacification of adjacent bronchi are again noted. 5 mm left upper lobe nodular opacity (3:82), previously 7 mm either stable or slightly smaller. Fluctuating patchy groundglass opacities and patchy opacities in the bilateral lung naidu, altered in configuration, some have increased and some of decreased. Mucous plugging has increased. Pleural space: No pleural effusion. Calcified pleural plaques in the right lung (2:49, 112), stable. Lower neck, lymph nodes, and mediastinum: The imaged thyroid gland is normal. No lymphadenopathy in the supraclavicular, axillary, mediastinal, or hilar regions. Heart, pericardium, and thoracic vessels: The thoracic aorta is normal in caliber. Main pulmonary artery is ectatic measuring 3.5 cm in diameter. The cardiac chambers are normal in size. Atherosclerotic coronary artery calcifications are noted. No pericardial effusion or thickening. Bones and soft tissues: Healing fracture deformities of several right ribs are again noted. No new osseous abnormalities. Upper abdomen: No evidence of an adrenal mass. 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 IMPRESSION: 1. Fluctuating patchy opacities and groundglass opacities, some have increased and some have decreased since 05/07/23. Consider follow to complete resolution. 2. Residual 5 mm left upper lobe lung opacity, either stable or slightly smaller. 3. Increased mucous plugging. 4. Right perihilar consolidative opacities, most likely a combination of postradiation change, other infectious/inflammatory etiologies and neoplasm, stable. Transcribe Date/Time: Aug 03 2023 12:01P Dictated by: ARIANA HANSEN MD This examination was interpreted and the report reviewed and electronically signed by: ARIANA HANSEN MD on Aug 03 2023 1:31PM EST Thank you for allowing us to participate in the care of your patient. Should there be any questions regarding this interpretation, please call [phone]. If you are unable to reach us at the number above, please feel free to contact [facility] at [phone]. [id number] Normal [facility] CT Chest WO contraston 08-03 IMPRESSION: 1. Fluctuating patchy opacities and groundglass opacities, some have increased and some have decreased since 05/07/23. Consider follow to complete resolution. 2. Residual 5 mm left upper lobe lung opacity, either stable or slightly smaller. 3. Increased mucous plugging. 4. Right perihilar consolidative opacities, most likely a combination of postradiation change, other infectious/inflammatory etiologies and neoplasm, stable. Transcribe Date/Time: Aug 03 2023 12:01P Dictated by: ARIANA HANSEN MD This examination was interpreted and the report reviewed and electronically signed by: ARIANA HANSEN MD on Aug 03 2023 1:31PM EST Thank you for allowing us to participate in the care of your patient. Should there be any questions regarding this interpretation, please call [phone]. If you are unable to reach us at the number above, please feel free to contact [facility] at [phone]. DIVISION OF RADIOLOGY * * *Final Report* * * DATE OF EXAM: Aug 03 2023 9:52AM [facility] 0541 - CT CHEST WO IVCON / PROCEDURE REASON: Malignant neoplasm of unspecified part of unspecified bronchus or lung (HCC) * * * * Physician Interpretation * * * * RESULT: EXAMINATION: CHEST CT WITHOUT CONTRAST CLINICAL HISTORY: Malignant neoplasm of unspecified part of unspecified bronchus or lung (HCC) Technique: Spiral CT acquisition of the chest from the thoracic inlet to the upper abdomen without contrast. MQ: CTCWO_6 CT Radiation dose: Integrated Dose-length product (DLP) for this visit = 207 mGy*cm CT Dose Reduction Employed: Automated exposure control (AEC) Comparison: 05/07/23 RESULT: Limitations: None. Lines, tubes, and devices: Right-sided Port-A-Cath. 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 Mild emphysematous changes of the lungs. Right perihilar consolidative opacities, stable. Narrowing and opacification of adjacent bronchi are again noted. 5 mm left upper lobe nodular opacity (3:82), previously 7 mm either stable or slightly smaller. Fluctuating patchy groundglass opacities and patchy opacities in the bilateral lung naidu, altered in configuration, some have increased and some of decreased. Mucous plugging has increased. Pleural space: No pleural effusion. Calcified pleural plaques in the right lung (2:49, 112), stable. Lower neck, lymph nodes, and mediastinum: The imaged thyroid gland is normal. No lymphadenopathy in the supraclavicular, axillary, mediastinal, or hilar regions. Heart, pericardium, and thoracic vessels: The thoracic aorta is normal in caliber. Main pulmonary artery is ectatic measuring 3.5 cm in diameter. The cardiac chambers are normal in size. Atherosclerotic coronary artery calcifications are noted. No pericardial effusion or thickening. Bones and soft tissues: Healing fracture deformities of several right ribs are again noted. No new osseous abnormalities. Upper abdomen: No evidence of an adrenal mass. 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 DIVISION OF RADIOLOGY Provider, [facility] - 08/03/2023 * * *Final Report* * * DATE OF EXAM: Aug 03 2023 9:52AM [facility] 05[address] - CT CHEST WO IVCON / PROCEDURE REASON: Malignant neoplasm of unspecified part of unspecified bronchus or lung (HCC) * * * * Physician Interpretation * * * * RESULT: EXAMINATION: CHEST CT WITHOUT CONTRAST CLINICAL HISTORY: Malignant neoplasm of unspecified part of unspecified bronchus or lung (HCC) Technique: Spiral CT acquisition of the chest from the thoracic inlet to the upper abdomen without contrast. MQ: CTCWO_6 CT Radiation dose: Integrated Dose-length product (DLP) for this visit = 207 mGy*cm CT Dose Reduction Employed: Automated exposure control (AEC) Comparison: 05/07/23 RESULT: Limitations: None. Lines, tubes, and devices: Right-sided Port-A-Cath. 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 Mild emphysematous changes of the lungs. Right perihilar consolidative opacities, stable. Narrowing and opacification of adjacent bronchi are again noted. 5 mm left upper lobe nodular opacity (3:82), previously 7 mm either stable or slightly smaller. Fluctuating patchy groundglass opacities and patchy opacities in the bilateral lung naidu, altered in configuration, some have increased and some of decreased. Mucous plugging has increased. Pleural space: No pleural effusion. Calcified pleural plaques in the right lung (2:49, 112), stable. Lower neck, lymph nodes, and mediastinum: The imaged thyroid gland is normal. No lymphadenopathy in the supraclavicular, axillary, mediastinal, or hilar regions. Heart, pericardium, and thoracic vessels: The thoracic aorta is normal in caliber. Main pulmonary artery is ectatic measuring 3.5 cm in diameter. The cardiac chambers are normal in size. Atherosclerotic coronary artery calcifications are noted. No pericardial effusion or thickening. Bones and soft tissues: Healing fracture deformities of several right ribs are again noted. No new osseous abnormalities. Upper abdomen: No evidence of an adrenal mass. 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 IMPRESSION IMPRESSION: 1. Fluctuating patchy opacities and groundglass opacities, some have increased and some have decreased since 05/07/23. Consider follow to complete resolution. 2. Residual 5 mm left upper lobe lung opacity, either stable or slightly smaller. 3. Increased mucous plugging. 4. Right perihilar consolidative opacities, most likely a combination of postradiation change, other infectious/inflammatory etiologies and neoplasm, stable. Transcribe Date/Time: Aug 03 2023 12:01P Dictated by: ARIANA HANSEN MD This examination was interpreted and the report reviewed and electronically signed by: ARIANA HANSEN MD on Aug 03 2023 1:31PM EST Thank you for allowing us to participate in the care of your patient. Should there be any questions regarding this interpretation, please call [phone]. If you are unable to reach us at the number above, please feel free to contact [facility] at [phone]. [facility] Study observation (narrative) [facility] CT Chest WO contrastOrdered By: [facility] Provider on 08-03-2023 [facility] CBC W Auto Differential pane l (Bld)on 07-09-2023 Basophils (Bld) [#/Vol] 10*3/uL Normal <0.11 [facility] Comment on above: Order Comment: Speci men Type: BLOOD SPECIMENOrdering Facility: [facility] Address: [address] [place] [address] Performed By: #### 5 7021-8 ####[facility] LABCLIA [id number] [place] [address] Basophils/100 WBC (Bld) 0.2 % Normal [facility] Comment on above: Order Comment: Speci men Type: BLOOD SPECIMENOrdering Facility: [facility] Address: [address] [place] [address] Performed By: #### 5 7021-8 ####[facility] LABCLIA [id number] [place] [address] Differential cell count method Nom (Bld) Auto Normal [facility] Comment on above: Order Comment: Speci men Type: BLOOD SPECIMENOrdering Facility: [facility] Address: [address] [place] [address] Performed By: #### 5 7021-8 ####[facility] LABCLIA [id number] [place] [address] Eosinophils (Bld) [#/Vol] 0.12 10*3/uL Normal <0.46 [facility] Comment on above: Order Comment: Speci men Type: BLOOD SPECIMENOrdering Facility: [facility] Address: [address] [place] [address] Performed By: #### 5 7021-8 ####[facility] LABCLIA [id number] [place] [address] Eosinophils/100 WBC (Bld) 1.3 % Normal [facility] Comment on above: Order Comment: Speci men Type: BLOOD SPECIMENOrdering Facility: [facility] Address: [address] [place] [address] Performed By: #### 5 7021-8 ####[facility] LABCLIA [id number] [place] [address] Erythrocyte distribution width (RBC) [Ratio] 13.6 % Normal 11.5-15.0 [facility] Comment on above: Order Comment: Speci men Type: BLOOD SPECIMENOrdering Facility: [facility] Address: [address] [place] [address] Performed By: #### 5 7021-8 ####[facility] LABCLIA [id number] [place] [address] Hematocrit (Bld) [Volume fraction] 33.5 % Low 39.0-51.0 [facility] Comment on above: Order Comment: Speci men Type: BLOOD SPECIMENOrdering Facility: [facility] Address: [address] [place] [address] Performed By: #### 5 7021-8 ####[facility] LABCLIA [id number] [place] [address] Hemoglobin (Bld) [Mass/Vol] 11.6 g/dL Low 13.0-17.0 [facility] Comment on above: Order Comment: Speci men Type: BLOOD SPECIMENOrdering Facility: [facility] Address: [address] [place] [address] Performed By: #### 5 7021-8 ####[facility] LABCLIA [id number] [place] [address] Immature granulocytes (Bld) [#/Vol] 0.03 10*3/uL Normal <0.10 [facility] Comment on above: Order Comment: Speci men Type: BLOOD SPECIMENOrdering Facility: [facility] Address: [address] [place] [address] Performed By: #### 5 7021-8 ####[facility] LABIA [id number] [place] [address] Immature granulocytes/100 WBC (Bld) 0.3 % Normal [facility] Comment on above: Order Comment: Speci men Type: BLOOD SPECIMENOrdering Facility: [facility] Address: [address] [place] [address] Performed By: #### 5 7021-8 ####[facility] LABCLIA [id number] [place] [address] Lymphocytes (Bld) [#/Vol] 0.96 10*3/uL Low 1.00-4.00 [facility] Comment on above: Order Comment: Speci men Type: BLOOD SPECIMENOrdering Facility: [facility] Address: [address] [place] [address] Performed By: #### 5 7021-8 ####[facility] LABCLIA [id number] [place] [address] Lymphocytes/100 WBC (Bld) 10.5 % Normal [facility] Comment on above: Order Comment: Speci men Type: BLOOD SPECIMENOrdering Facility: [facility] Address: [address] [place] [address] Performed By: #### 5 7021-8 ####[facility] LABCLIA [id number] [place] [address] MCH (RBC) [Entitic mass] 36.0 pg High 26.0-34.0 [facility] Comment on above: Order Comment: Speci men Type: BLOOD SPECIMENOrdering Facility: [facility] Address: [address] [place] [address] Performed By: #### 5 7021-8 ####[facility] LABCLIA [id number] [place] [address] MCHC (RBC) [Mass/Vol] 34.6 g/dL Normal 30.5-36.0 [facility] Comment on above: Order Comment: Speci men Type: BLOOD SPECIMENOrdering Facility: [facility] Address: [address] [place] [address] Performed By: #### 5 7021-8 ####[facility] LABCLIA [id number] [place] [address] MCV (RBC) [Entitic vol] 104.0 fL High 80.0-100.0 [facility] Comment on above: Order Comment: Speci men Type: BLOOD SPECIMENOrdering Facility: [facility] Address: [address] [place] [address] Performed By: #### 5 7021-8 ####[facility] LABCLIA [id number] [place] [address] Monocytes (Bld) [#/Vol] 0.69 10*3/uL Normal <0.87 [facility] Comment on above: Order Comment: Speci men Type: BLOOD SPECIMENOrdering Facility: [facility] Address: [address] [place] [address] Performed By: #### 5 7021-8 ####[facility] LABCLIA [id number] [place] [address] Monocytes/100 WBC (Bld) 7.6 % Normal [facility] Comment on above: Order Comment: Speci men Type: BLOOD SPECIMENOrdering Facility: [facility] Address: [address] [place] [address] Performed By: #### 5 7021-8 ####[facility] LABCLIA [id number] [place] [address] Neutrophils (Bld) [#/Vol] 7.28 10*3/uL Normal 1.45-7.50 [facility] Comment on above: Order Comment: Speci men Type: BLOOD SPECIMENOrdering Facility: [facility] Address: [address] [place] [address] Performed By: #### 5 7021-8 ####[facility] LABCLIA [id number] [place] [address] Neutrophils/100 WBC (Bld) 80.1 % Normal [facility] Comment on above: Order Comment: Speci men Type: BLOOD SPECIMENOrdering Facility: [facility] Address: [address] [place] [address] Performed By: #### 5 7021-8 ####[facility] LABCLIA [id number] [place] [address] Nucleated RBC (Bld) [#/Vol] 10*3/uL Normal <0.01 [facility] Comment on above: Order Comment: Speci men Type: BLOOD SPECIMENOrdering Facility: [facility] Address: [address] [place] [address] Performed By: #### 5 7021-8 ####[facility] LABCLIA [id number] [place] [address] Nucleated RBC/100 WBC (Bld) [Ratio] 0.0 /100 WBC Normal [facility] Comment on above: Order Comment: Speci men Type: BLOOD SPECIMENOrdering Facility: [facility] Address: [address] [place] [address] Performed By: #### 5 7021-8 ####[facility] LABCLIA [id number] [place] [address] Platelet mean volume (Bld) [Entitic vol] 9.8 fL Normal 9.0-12.7 [facility] Comment on above: Order Comment: Speci men Type: BLOOD SPECIMENOrdering Facility: [facility] Address: [address] [place] [address] Performed By: #### 5 7021-8 ####[facility] LABCLIA [id number] [place] [address] Platelets (Bld) [#/Vol] 175 10*3/uL Normal 150-400 [facility] Comment on above: Order Comment: Speci men Type: BLOOD SPECIMENOrdering Facility: [facility] Address: [address] [place] [address] Performed By: #### 5 7021-8 ####[facility] LABCLIA [id number] [place] [address] RBC (Bld) [#/Vol] 3.22 10*6/uL Low 4.20-6.00 [facility] Comment on above: Order Comment: Speci men Type: BLOOD SPECIMENOrdering Facility: [facility] Address: [address] [place] [address] [place] [address] Performed By: #### 5 7021-8 ####[facility] LABCLIA [id number] [place] [address] WBC (Bld) [#/Vol] 9.10 10*3/uL Normal 3.70-11.00 [facility] Comment on above: Order Comment: Speci men Type: BLOOD SPECIMENOrdering Facility: [facility] Address: [place] [address] Performed By: #### 5 7021-8 ####[facility] LABCLIA [id number] [place] [address] CNOVSPon 07-09-2023 CNOVSP Visit (SP) Office (H EMASA) -- RAGHAVENDRA HEARD ([id number]) 1945 M Date Time Provider Department 07/09/23 10:30 AM GLENYS KURTZ During your visit today, we recorded the following information about you: Temperature Pulse Respiration Blood pressure 97 degrees 54/minute 16/minute 134/64 Weight Height 68.4 kg 1.727 m Glenys Kurtz PA-C 07/09/2023 11:44 AM Signed PATIENT NAME: Raghavendra Heard DATE: 07/09/2023 PRIMARY CARE PHYSICIAN: Dr. Prerna Grissom II OTHER PHYSICIANS: Dr. Toledo (Cardiology [facility]), Dr. Zhang, Dr. Hernández (Wardrobe Manager in [place]), Dr. Stinson (Thoracic Surgery in [place]), Dr. Alberts (Elements copied from Dr. Becker's note dated May 14, 2023, have been reviewed and updated where appropriate, and all reflect current assessment and medical decision making during today's encounter, July 09, 2023) CC: This is a 78 year old male with a history of recurrent lung cancer and multiple myeloma, seen for for scheduled follow-up. INTERIM HISTORY: Mr. Heard returns for follow up. Overall he is doing the same. He still has chronic pain. Some days worse than others. He still has shortness of breath off and on. Overall it is stable. He is currently on 5 mg of Prednisone daily. Denies any new symptoms. No fevers, chills, nausea, vomiting. MEDICATIONS: HYDROcodone-acetaminophen (NORCO) 5-325 mg per tablet Take 2 tablets by mouth every 6 hours as needed. albuterol (PROVENTIL) 2.5 mg /3 mL (0.083 %) nebulizer solution 2.5 mg every 4 hours as needed. ANORO ELLIPTA 62.5-25 mcg/actuation inhaler INHALE 1 PUFF INTO THE LUNGS EVERY DAY FOR 90 DAYS pregabalin (LYRICA) 75 mg capsule Take 1 capsule by mouth three times a day for 90 days. DULoxetine (CYMBALTA) 60 mg capsule Take 1 capsule by mouth two times a day. predniSONE (DELTASONE) 10 mg tablet Take 1 tablet by mouth once daily. Take 4 daily x 5 days, then 2 daily x 5 days, then 1 daily or as directed. meloxicam (MOBIC) 15 mg tablet Take 1 tablet by mouth once daily. senna (SENNA LAXATIVE) 8.6 mg tab Take 2 tablets by mouth twice daily. clonazePAM (KLONOPIN) 1 mg tablet Take 1 tablet by mouth three times daily as needed for up to 30 days. docusate sodium (COLACE) 100 mg capsule TAKE 2 CAPSULES BY MOUTH TWICE A DAY naloxone 4 mg/actuation nasal spray (NARCAN) Use 1 spray in one nostril as needed for overdose. May repeat every 2 to 3 min in alternating nostrils until medical assistance is available finasteride (PROSCAR) 5 mg tablet triamterene-hydroCHLOROthi azide (MAXZIDE-25) 37.5-25 mg per tablet TAKE 1 TABLET BY MOUTH EVERY DAY IN THE MORNING ondansetron (ZOFRAN) 8 mg tablet Take 1 tablet by mouth every 8 hours as needed for nausea/vomiting. prochlorperazine (COMPAZINE) 10 mg tablet Take 1 tablet by mouth every 6 hours as needed. metoprolol succinate ER (TOPROL XL) 25 mg 24 hr tablet Take 25 mg by mouth once daily. mv-mn/iron/folic acid/herb 190 (VITAMIN D3 COMPLETE ORAL) Take by mouth. ZINC ORAL Take by mouth. tamsulosin ER (FLOMAX) 0.4 mg cap nitroglycerin sublingual (NITROQUICK) 0.4 mg SL tablet Dissolve 0.4 mg under the tongue every 5 minutes as needed. Aspirin 81 mg CpDR Take 81 mg by mouth once daily. atorvastatin 40 mg tablet Take 40 mg by mouth once daily. DOCOSAHEXANOIC ACID/EPA (FISH OIL ORAL) Take by mouth. ALLERGIES: Patient has no known allergies. PAST MEDICAL HISTORY: PAST MEDICAL HISTORY Diagnosis Date Anxiety Enlarged prostate HTN (hypertension) Hypercholesteremia Multiple myeloma, without mention of having achieved remission PAST SURGICAL HISTORY: PAST SURGICAL HISTORY Procedure Laterality Date REMOVAL OF LUNG,LOBECTOMY Right 04/24/2019 right upper lobe REVIEW OF SYSTEMS: As above. PHYSICAL EXAM: Vitals: BP 134/64 Pulse (!) 54 Temp 36.1 ?C (97 ?F) (Temporal) Resp 16 Ht 172.7 cm (5' 7.99 ) Wt 68.4 kg (150 lb 12.7 oz) SpO2 94% BMI 22.93 kg/m? ECOG 1 General: Alert and oriented, no distress, pleasant and cooperative. Heart: Regular, normal S1 and S2, no murmurs, rubs, or gallops Lungs: Clear to auscultation bilaterally Abdomen: Benign Extremities: Feet/ankles without edema, posterior tibial pulses full and symmetrical PATHOLOGY: 06/14/2022 Lymph node, 10 R, EBUS transbronchial biopsy Adenocarcinoma. Immunohistochemistry: PD-L1 expression less than 1% ALK rearrangement 0% BRAF - No variant detected [Reference Sequence: ([id number])]. EGFR - No variant detected [Reference Sequence: ([id number])]. HER2 (ERBB2) - No variant detected [Reference Sequence: (NM_[id number])]. KRAS - No variant detected [Reference Sequence: (NM_[id number])]. MET - No variant detected [Reference Sequence: (NM_[id number])]. RADIOLOGIC STUDIES: 05/07/2023 CT Chest IMPRESSION: 1. Previously noted patchy opacities have decreased with mild groundglass re (more content not included)... Normal [facility] Comprehensive metabolic 2000 panelon 07-09-2023 Albumin [Mass/Vol] 3.7 g/dL Low 3.9-4.9 [facility] Comment on above: Order Comment: Speci men Type: BLOOD SPECIMENOrdering Facility: [facility] Address: [address] [place] [address] Performed By: #### 2 4323-8 ####[facility] LABCLIA [id number] [place] [address] ALP [Catalytic activity/Vol] 67 U/L Normal 38-113 [facility] Comment on above: Order Comment: Speci men Type: BLOOD SPECIMENOrdering Facility: [facility] Address: [address] [place] [address] Performed By: #### 2 4323-8 ####[facility] LABCLIA [id number] [place] [address] ALT [Catalytic activity/Vol] 12 U/L Normal 10-54 [facility] Comment on above: Order Comment: Speci men Type: BLOOD SPECIMENOrdering Facility: [facility] Address: [address] [place] [address] Performed By: #### 2 4323-8 ####[facility] LABCLIA [id number] [place] [address] Anion gap [Moles/Vol] 8 mmol/L Low 9-18 [facility] Comment on above: Order Comment: Speci men Type: BLOOD SPECIMENOrdering Facility: [facility] Address: [address] [place] [address] Performed By: #### 2 4323-8 ####[facility] LABCLIA [id number] [place] [address] AST [Catalytic activity/Vol] 14 U/L Normal 14-40 [facility] Comment on above: Order Comment: Speci men Type: BLOOD SPECIMENOrdering Facility: [facility] Address: [address] [place] [address] Performed By: #### 2 4323-8 ####[facility] LABCLIA [id number] [place] [address] Bilirubin [Mass/Vol] 0.2 mg/dL Normal 0.2-1.3 [facility] Comment on above: Order Comment: Speci men Type: BLOOD SPECIMENOrdering Facility: [facility] Address: [address] [place] [address] Performed By: #### 2 4323-8 ####[facility] LABCLIA [id number] [place] [address] Calcium [Mass/Vol] 9.2 mg/dL Normal 8.5-10.2 [facility] Comment on above: Order Comment: Speci men Type: BLOOD SPECIMENOrdering Facility: [facility] Address: [address] [place] [address] Performed By: #### 2 4323-8 ####[facility] LABCLIA [id number] [place] [address] Chloride [Moles/Vol] 107 mmol/L High 97-105 [facility] Comment on above: Order Comment: Speci men Type: BLOOD SPECIMENOrdering Facility: [facility] Address: [address] [place] [address] Performed By: #### 2 4323-8 ####[facility] LABCLIA [id number] [place] [address] CO2 [Moles/Vol] 27 mmol/L Normal 22-30 [facility] Comment on above: Order Comment: Speci men Type: BLOOD SPECIMENOrdering Facility: [facility] Address: [address] [place] [address] Performed By: #### 2 4323-8 ####[facility] LABCLIA [id number] [place] [address] Creatinine [Mass/Vol] 0.84 mg/dL Normal 0.73-1.22 [facility] Comment on above: Order Comment: Speci men Type: BLOOD SPECIMENOrdering Facility: [facility] Address: [address] [place] [address] Performed By: #### 2 4323-8 ####[facility] LABCLIA [id number] [place] [address] Creatinine and Glomerular filtration rate.predicted panel (S/P/Bld) 90 mL/min/1.73m??? Normal >=60 [facility] Comment on above: Order Comment: Julio men Type: BLOOD SPECIMENOrdering Facility: [facility] Address: [address] [place] [address] Result Comment: Carol mated Glomerular Filtration Rate (eGFR) is calculated using the 2020 CKD-EPI creatinine equation. This equation utilizes serum creatinine, sex, and age as parameters. The creatinine assay has traceable calibration to isotope dilution-mass spectrometry. Refer to KDIGO guidelines for clinical interpretation. In patients with unstable renal function, e.g. those with acute kidney injury, the eGFR may not accurately reflect actual GFR. Performed By: #### 2 4323-8 ####[facility] LABCLIA [id number] [place] [address] Glucose [Mass/Vol] 133 mg/dL High 74-99 [facility] Comment on above: Order Comment: Diannavirgil gilbert Type: BLOOD SPECIMENOrdering Facility: [facility] Address: [address] [place] [address] Result Comment: The [place] [employer] (ADA) provides guidance for cutoff values for fasting glucose and random glucose. The ADA defines fasting as no caloric intake for at least 8 hours. Fasting plasma glucose results between 100 to 125 mg/dL indicate increased risk for diabetes (prediabetes). Fasting plasma glucose results greater than or equal to 126 mg/dL meet the criteria for diagnosis of diabetes. In the absence of unequivocal hyperglycemia, results should be confirmed by repeat testing. In a patient with classic symptoms of hyperglycemia or hyperglycemic crisis, random plasma glucose results greater than or equal to 200 mg/dL meet the criteria for diagnosis of diabetes. Reference: Standards of Medical Care in Diabetes 2016, [place] [employer]. Diabetes Care. 2016.39(Suppl 1). Performed By: #### 2 4323-8 ####[facility] LABCLIA [id number] [place] [address] Potassium [Moles/Vol] 3.8 mmol/L Normal 3.7-5.1 [facility] Comment on above: Order Comment: Speci men Type: BLOOD SPECIMENOrdering Facility: [facility] Address: [address] [place] [address] Performed By: #### 2 4323-8 ####[facility] LABCLIA [id number] [place] [address] Protein [Mass/Vol] 7.2 g/dL Normal 6.3-8.0 [facility] Comment on above: Order Comment: Speci men Type: BLOOD SPECIMENOrdering Facility: [facility] Address: [address] [place] [address] Performed By: #### 2 4323-8 ####[facility] LABCLIA [id number] [place] [address] Sodium [Moles/Vol] 142 mmol/L Normal 136-144 [facility] Comment on above: Order Comment: Speci men Type: BLOOD SPECIMENOrdering Facility: [facility] Address: [address] [place] [address] Performed By: #### 2 4323-8 ####[facility] LABCLIA [id number] [place] [address] Urea nitrogen [Mass/Vol] 20 mg/dL Normal 9-24 [facility] Comment on above: Order Comment: Speci men Type: BLOOD SPECIMENOrdering Facility: [facility] Address: [address] [place] [address] Performed By: #### 2 4323-8 ####[facility] LABCLIA [id number] [place] [address] CBC W Auto Differential pane l (Bld)on 05-14-2023 Basophils (Bld) [#/Vol] <0.11 k/uL [facility] Basophils/100 WBC (Bld) 0.3 % [facility] Differential cell count method Nom (Bld) Auto [facility] Eosinophils (Bld) [#/Vol] 0.07 10*3/uL <0.46 k/uL [facility] Eosinophils/100 WBC (Bld) 1.0 % [facility] Erythrocyte distribution width (RBC) [Ratio] 17.1 % High 11.5 - 15.0 % [facility] Hematocrit (Bld) [Volume fraction] 33.0 % Low 39.0 - 51.0 % [facility] Hemoglobin (Bld) [Mass/Vol] 11.0 g/dL Low 13.0 - 17.0 g/dL [facility] Immature granulocytes (Bld) [#/Vol] 0.03 10*3/uL <0.10 k/uL [facility] Immature granulocytes/100 WBC (Bld) 0.4 % [facility] Lymphocytes (Bld) [#/Vol] 1.10 10*3/uL 1.00 - 4.00 k/uL [facility] Lymphocytes/100 WBC (Bld) 16.4 % [facility] MCH (RBC) [Entitic mass] 34.7 pg High 26.0 - 34.0 pg [facility] MCHC (RBC) [Mass/Vol] 33.3 g/dL 30.5 - 36.0 g/dL [facility] MCV (RBC) [Entitic vol] 104.1 fL High 80.0 - 100.0 fL [facility] Monocytes (Bld) [#/Vol] 0.30 10*3/uL <0.87 k/uL [facility] Monocytes/100 WBC (Bld) 4.5 % [facility] Neutrophils (Bld) [#/Vol] 5.17 10*3/uL 1.45 - 7.50 k/uL [facility] Neutrophils/100 WBC (Bld) 77.4 % [facility] Nucleated RBC (Bld) [#/Vol] <0.01 k/uL [facility] Nucleated RBC/100 WBC (Bld) [Ratio] 0.0 /100 WBC [facility] Platelet mean volume (Bld) [Entitic vol] 9.7 fL 9.0 - 12.7 fL [facility] Platelets (Bld) [#/Vol] 228 10*3/uL 150 - 400 k/uL [facility] RBC (Bld) [#/Vol] 3.17 10*6/uL Low 4.20 - 6.0 0 m/uL [facility] WBC (Bld) [#/Vol] 6.69 10*3/uL 3.70 - 11.00 k/uL [facility] Basophils (Bld) [#/Vol] 10*3/uL Normal <0.11 [facility] Comment on above: Order Comment: Speci men Type: BLOOD SPECIMENOrdering Facility: [facility] Address: [address] [place] [address] Performed By: #### 5 7021-8 ####[facility] LABCLIA [id number] [place] [address] Basophils/100 WBC (Bld) 0.3 % Normal [facility] Comment on above: Order Comment: Speci men Type: BLOOD SPECIMENOrdering Facility: [facility] Address: [address] [place] [address] Performed By: #### 5 7021-8 ####[facility] LABCLIA [id number] [place] [address] Differential cell count method Nom (Bld) Auto Normal [facility] Comment on above: Order Comment: Speci men Type: BLOOD SPECIMENOrdering Facility: [facility] Address: [address] [place] [address] Performed By: #### 5 7021-8 ####[facility] LABCLIA [id number] [place] [address] Eosinophils (Bld) [#/Vol] 0.07 10*3/uL Normal <0.46 [facility] Comment on above: Order Comment: Speci men Type: BLOOD SPECIMENOrdering Facility: [facility] Address: [address] [place] [address] Performed By: #### 5 7021-8 ####[facility] LABCLIA [id number] [place] [address] Eosinophils/100 WBC (Bld) 1.0 % Normal [facility] Comment on above: Order Comment: Speci men Type: BLOOD SPECIMENOrdering Facility: [facility] Address: [address] [place] [address] Performed By: #### 5 7021-8 ####[facility] LABCLIA [id number] [place] [address] Erythrocyte distribution width (RBC) [Ratio] 17.1 % High 11.5-15.0 [facility] Comment on above: Order Comment: Speci men Type: BLOOD SPECIMENOrdering Facility: [facility] Address: [address] [place] [address] Performed By: #### 5 7021-8 ####[facility] LABCLIA [id number] [place] [address] Hematocrit (Bld) [Volume fraction] 33.0 % Low 39.0-51.0 [facility] Comment on above: Order Comment: Speci men Type: BLOOD SPECIMENOrdering Facility: [facility] Address: [address] [place] [address] Performed By: #### 5 7021-8 ####[facility] LABCLIA [id number] [place] [address] Hemoglobin (Bld) [Mass/Vol] 11.0 g/dL Low 13.0-17.0 [facility] Comment on above: Order Comment: Speci men Type: BLOOD SPECIMENOrdering Facility: [facility] Address: [address] [place] [address] Performed By: #### 5 7021-8 ####[facility] LABCLIA [id number] [place] [address] Immature granulocytes (Bld) [#/Vol] 0.03 10*3/uL Normal <0.10 [facility] Comment on above: Order Comment: Speci men Type: BLOOD SPECIMENOrdering Facility: [facility] Address: [address] [place] [address] Performed By: #### 5 7021-8 ####[facility] LABCLIA [id number] [place] [address] Immature granulocytes/100 WBC (Bld) 0.4 % Normal [facility] Comment on above: Order Comment: Speci men Type: BLOOD SPECIMENOrdering Facility: [facility] Address: [address] [place] [address] Performed By: #### 5 7021-8 ####[facility] LABCLIA [id number] [place] [address] Lymphocytes (Bld) [#/Vol] 1.10 10*3/uL Normal 1.00-4.00 [facility] Comment on above: Order Comment: Speci men Type: BLOOD SPECIMENOrdering Facility: [facility] Address: [address] [place] [address] Performed By: #### 5 7021-8 ####[facility] LABIA [id number] [place] [address] Lymphocytes/100 WBC (Bld) 16.4 % Normal [facility] Comment on above: Order Comment: Speci men Type: BLOOD SPECIMENOrdering Facility: [facility] Address: [address] [place] [address] Performed By: #### 5 7021-8 ####[facility] LABIA [id number] [place] [address] MCH (RBC) [Entitic mass] 34.7 pg High 26.0-34.0 [facility] Comment on above: Order Comment: Speci men Type: BLOOD SPECIMENOrdering Facility: [facility] Address: [address] [place] [address] Performed By: #### 5 7021-8 ####[facility] LABIA [id number] [place] [address] MCHC (RBC) [Mass/Vol] 33.3 g/dL Normal 30.5-36.0 [facility] Comment on above: Order Comment: Speci men Type: BLOOD SPECIMENOrdering Facility: [facility] Address: [address] [place] [address] Performed By: #### 5 7021-8 ####[facility] LABCLIA [id number] [place] [address] MCV (RBC) [Entitic vol] 104.1 fL High 80.0-100.0 [facility] Comment on above: Order Comment: Speci men Type: BLOOD SPECIMENOrdering Facility: [facility] Address: [address] [place] [address] Performed By: #### 5 7021-8 ####[facility] LABCLIA [id number] [place] [address] Monocytes (Bld) [#/Vol] 0.30 10*3/uL Normal <0.87 [facility] Comment on above: Order Comment: Speci men Type: BLOOD SPECIMENOrdering Facility: [facility] Address: [address] [place] [address] Performed By: #### 5 7021-8 ####[facility] LABCLIA [id number] [place] [address] Monocytes/100 WBC (Bld) 4.5 % Normal [facility] Comment on above: Order Comment: Speci men Type: BLOOD SPECIMENOrdering Facility: [facility] Address: [address] [place] [address] Performed By: #### 5 7021-8 ####[facility] LABCLIA [id number] [place] [address] Neutrophils (Bld) [#/Vol] 5.17 10*3/uL Normal 1.45-7.50 [facility] Comment on above: Order Comment: Speci men Type: BLOOD SPECIMENOrdering Facility: [facility] Address: [address] [place] [address] Performed By: #### 5 7021-8 ####[facility] LABCLIA [id number] [place] [address] Neutrophils/100 WBC (Bld) 77.4 % Normal [facility] Comment on above: Order Comment: Speci men Type: BLOOD SPECIMENOrdering Facility: [facility] Address: [address] [place] [address] Performed By: #### 5 7021-8 ####[facility] LABCLIA [id number] [place] [address] Nucleated RBC (Bld) [#/Vol] 10*3/uL Normal <0.01 [facility] Comment on above: Order Comment: Speci men Type: BLOOD SPECIMENOrdering Facility: [facility] Address: [address] [place] [address] Performed By: #### 5 7021-8 ####[facility] LABCLIA [id number] [place] [address] Nucleated RBC/100 WBC (Bld) [Ratio] 0.0 /100 WBC Normal [facility] Comment on above: Order Comment: Speci men Type: BLOOD SPECIMENOrdering Facility: [facility] Address: [address] [place] [address] Performed By: #### 5 7021-8 ####[facility] LABCLIA [id number] [place] [address] Platelet mean volume (Bld) [Entitic vol] 9.7 fL Normal 9.0-12.7 [facility] Comment on above: Order Comment: Speci men Type: BLOOD SPECIMENOrdering Facility: [facility] Address: [address] [place] [address] Performed By: #### 5 7021-8 ####[facility] LABCLIA [id number] [place] [address] Platelets (Bld) [#/Vol] 228 10*3/uL Normal 150-400 [facility] Comment on above: Order Comment: Speci men Type: BLOOD SPECIMENOrdering Facility: [facility] Address: [address] [place] [address] Performed By: #### 5 7021-8 ####[facility] LABCLIA [id number] [place] [address] RBC (Bld) [#/Vol] 3.17 10*6/uL Low 4.20-6.00 [facility] Comment on above: Order Comment: Speci men Type: BLOOD SPECIMENOrdering Facility: [facility] Address: [address] [place] [address] Performed By: #### 5 7021-8 ####[facility] LABIA [id number] [place] [address] WBC (Bld) [#/Vol] 6.69 10*3/uL Normal 3.70-11.00 [facility] Comment on above: Order Comment: Speci men Type: BLOOD SPECIMENOrdering Facility: [facility] Address: [address] [place] [address] Performed By: #### 5 7021-8 ####[facility] [id number] [place] [address] CNOVSPon 05-14-2023 CNOVSP Visit (SP) Office (H [facility]) -- RAGHAVENDRA HEARD ([id number]) 1945 M Date Time Provider Department 05/14/23 10:00 AM JA BECKER During your visit today, we recorded the following information about you: Temperature Pulse Respiration Blood pressure 97.6 degrees 55/minute 18/minute 136/64 Weight Height 69.3 kg 1.727 m Ja Becker MD 05/14/2023 9:39 PM Signed PATIENT NAME: Raghavendra Heard DATE: 05/14/2023 PRIMARY CARE PHYSICIAN: Dr. Prerna Grissom II OTHER PHYSICIANS: Dr. Toledo (Cardiology [facility]), Dr. Dr. Edgar Zhang (Wardrobe Manager in [place]), Dr. Stinson (Thoracic Surgery in [place]), Dr. Alberts Portions of this encounter note have been copied from the note from 04/02/2023 and has been updated where appropriate, and reflect my current medical decision making from today. CC: This is a 78 year old male with a history of recurrent lung cancer and multiple myeloma, seen for for scheduled follow-up. INTERIM HISTORY: At the patient's last visit here he was having significant shortness of breath and additional symptoms suggesting bronchitis. He was given a course of antibiotics with Levaquin and resumed prednisone. 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 The patient improved, and subsequently weaned prednisone to 20 mg daily. On follow-up today his main complaint is continued dyspnea on exertion, but not as severe. Occasional dry cough. No fevers or other signs of infection. Chronic pain and anxiety are controlled on current medications. MEDICATIONS: albuterol (PROVENTIL) 2.5 mg /3 mL (0.083 %) nebulizer solution 2.5 mg every 4 hours as needed. ANORO ELLIPTA 62.5-25 mcg/actuation inhaler INHALE 1 PUFF INTO THE LUNGS EVERY DAY FOR 90 DAYS pregabalin (LYRICA) 75 mg capsule Take 1 capsule by mouth three times a day for 90 days. DULoxetine (CYMBALTA) 60 mg capsule Take 1 capsule by mouth two times a day. HYDROcodone-acetaminophen (NORCO) 5-325 mg per tablet Take 2 tablets by mouth every 6 hours as needed. predniSONE (DELTASONE) 10 mg tablet Take 1 tablet by mouth once daily. Take 4 daily x 5 days, then 2 daily x 5 days, then 1 daily or as directed. levoFLOXacin (LEVAQUIN) 500 mg tablet Take 1 tablet by mouth once daily. meloxicam (MOBIC) 15 mg tablet Take 1 tablet by mouth once daily. senna (SENNA LAXATIVE) 8.6 mg tab Take 2 tablets by mouth twice daily. clonazePAM (KLONOPIN) 1 mg tablet Take 1 tablet by mouth three times daily as needed for up to 30 days. docusate sodium (COLACE) 100 mg capsule TAKE 2 CAPSULES BY MOUTH TWICE A DAY naloxone 4 mg/actuation nasal spray (NARCAN) Use 1 spray in one nostril as needed for overdose. May repeat every 2 to 3 min in alternating nostrils until medical assistance is available finasteride (PROSCAR) 5 mg tablet triamterene-hydroCHLOROthi azide (MAXZIDE-25) 37.5-25 mg per tablet TAKE 1 TABLET BY MOUTH EVERY DAY IN THE MORNING ondansetron (ZOFRAN) 8 mg tablet Take 1 tablet by mouth every 8 hours as needed for nausea/vomiting. prochlorperazine (COMPAZINE) 10 mg tablet Take 1 tablet by mouth every 6 hours as needed. metoprolol succinate ER (TOPROL XL) 25 mg 24 hr tablet Take 25 mg by mouth once daily. mv-mn/iron/folic acid/herb 190 (VITAMIN D3 COMPLETE ORAL) Take by mouth. ZINC ORAL Take by mouth. tamsulosin ER (FLOMAX) 0.4 mg cap nitroglycerin sublingual (NITROQUICK) 0.4 mg SL tablet Dissolve 0.4 mg under the tongue every 5 minutes as needed. Aspirin 81 mg CpDR Take 81 mg by mouth once daily. atorvastatin 40 mg tablet Take 40 mg by mouth once daily. DOCOSAHEXANOIC ACID/EPA (FISH OIL ORAL) Take by mouth. ALLERGIES: Patient has no known allergies. PAST MEDICAL HISTORY: PAST MEDICAL HISTORY Diagnosis Date Anxiety Enlarged prostate HTN (hypertension) Hypercholesteremia Multiple myeloma, without mention of having achieved remission PAST SURGICAL HISTORY: PAST SURGICAL HISTORY Procedure Laterality Date REMOVAL OF LUNG,LOBECTOMY Right 04/24/2019 right upper lobe REVIEW OF SYSTEMS: As above. PHYSICAL EXAM: Vitals: BP 136/64 Pulse (!) 55 Temp 36.4 ?C (97.6 ?F) (Temporal) Resp 18 Ht 172.7 cm (5' 7.99 ) Wt 69.3 kg (152 lb 12.8 oz) SpO2 94% BMI 23.24 kg/m? ECOG 1 Exam limited to gross visualization where appropriate due to COVID-19. Gen.: This is an age-appropriate patient in no acute distress. Head: Appears atraumatic with no visible lesions. Eyes: Pupils equally round and reactive to light, extraocular muscles are intact. Neck: Supple. Mouth: Masked. Respiratory: Audible wheezing and short of breath. Neurologic: Nonfocal to gross visualization. Alert and oriented ?3. Psychiatric: No evidence of inappropriate anxiety or depression. Skin: Visible areas of skin without rash, lesions, wounds or petechiae. PATHOLOGY: 06/14/2022 Lymph n (more content not included)... Normal [facility] Comprehensive metabolic 2000 panelon 05-14-2023 Albumin [Mass/Vol] 3.7 g/dL Low 3.9 - 4.9 g/dL [facility] ALP [Catalytic activity/Vol] 67 U/L 38 - 113 U/L [facility] ALT [Catalytic activity/Vol] 19 U/L 10 - 54 U/L [facility] Anion gap [Moles/Vol] 8 mmol/L Low 9 - 18 mmol/L [facility] AST [Catalytic activity/Vol] 16 U/L 14 - 40 U/L [facility] Bilirubin [Mass/Vol] 0.2 mg/dL 0.2 - 1 .3 mg/dL [facility] Calcium [Mass/Vol] 9.3 mg/dL 8.5 - 10. 2 mg/dL [facility] Chloride [Moles/Vol] 105 mmol/L 97 - 10 5 mmol/L [facility] CO2 [Moles/Vol] 27 mmol/L 22 - 30 mmol/L [facility] Creatinine [Mass/Vol] 0.88 mg/dL 0.73 - 1.22 mg/dL [facility] Estimated Glomerular Filtration Rate 89 mL/min/1.73m >=60 mL/min/1.73 m [facility] Glucose [Mass/Vol] 141 mg/dL High 74 - 99 mg/dL [facility] Potassium [Moles/Vol] 4.1 mmol/L 3.7 - 5.1 mmol/L [facility] Protein [Mass/Vol] 7.1 g/dL 6.3 - 8.0 g/dL [facility] Sodium [Moles/Vol] 140 mmol/L 136 - 144 mmol/L [facility] Urea nitrogen [Mass/Vol] 30 mg/dL High 9 - 24 mg/dL [facility] Albumin [Mass/Vol] 3.7 g/dL Low 3.9-4.9 [facility] Comment on above: Order Comment: Speci men Type: BLOOD SPECIMENOrdering Facility: [facility] Address: [address] [place] [address] Performed By: #### 2 4323-8 ####[facility] LABCLIA [id number] [place] [address] ALP [Catalytic activity/Vol] 67 U/L Normal 38-113 [facility] Comment on above: Order Comment: Speci men Type: BLOOD SPECIMENOrdering Facility: [facility] Address: [address] [place] [address] Performed By: #### 2 4323-8 ####[facility] LABCLIA [id number] [place] [address] ALT [Catalytic activity/Vol] 19 U/L Normal 10-54 [facility] Comment on above: Order Comment: Speci men Type: BLOOD SPECIMENOrdering Facility: [facility] Address: [address] [place] [address] Performed By: #### 2 4323-8 ####[facility] LABCLIA [id number] [place] [address] Anion gap [Moles/Vol] 8 mmol/L Low 9-18 [facility] Comment on above: Order Comment: Speci men Type: BLOOD SPECIMENOrdering Facility: [facility] Address: [address] [place] [address] Performed By: #### 2 4323-8 ####[facility] LABCLIA [id number] [place] [address] AST [Catalytic activity/Vol] 16 U/L Normal 14-40 [facility] Comment on above: Order Comment: Speci men Type: BLOOD SPECIMENOrdering Facility: [facility] Address: [address] [place] [address] Performed By: #### 2 4323-8 ####[facility] LABCLIA [id number] [place] [address] Bilirubin [Mass/Vol] 0.2 mg/dL Normal 0.2-1.3 [facility] Comment on above: Order Comment: Speci men Type: BLOOD SPECIMENOrdering Facility: [facility] Address: [address] [place] [address] Performed By: #### 2 4323-8 ####[facility] LABCLIA [id number] [place] [address] Calcium [Mass/Vol] 9.3 mg/dL Normal 8.5-10.2 [facility] Comment on above: Order Comment: Speci men Type: BLOOD SPECIMENOrdering Facility: [facility] Address: [address] [place] [address] Performed By: #### 2 4323-8 ####[facility] LABCLIA [id number] [place] [address] Chloride [Moles/Vol] 105 mmol/L Normal 97-105 [facility] Comment on above: Order Comment: Speci men Type: BLOOD SPECIMENOrdering Facility: [facility] Address: [address] [place] [address] Performed By: #### 2 4323-8 ####[facility] LABCLIA [id number] [place] [address] CO2 [Moles/Vol] 27 mmol/L Normal 22-30 [facility] Comment on above: Order Comment: Speci men Type: BLOOD SPECIMENOrdering Facility: [facility] Address: [address] [place] [address] Performed By: #### 2 4323-8 ####[facility] LABCLIA [id number] [place] [address] Creatinine [Mass/Vol] 0.88 mg/dL Normal 0.73-1.22 [facility] Comment on above: Order Comment: Speci men Type: BLOOD SPECIMENOrdering Facility: [facility] Address: [address] [place] [address] Performed By: #### 2 4323-8 ####[facility] LABIA [id number] [place] [address] Creatinine and Glomerular filtration rate.predicted panel (S/P/Bld) 89 mL/min/1.73m??? Normal >=60 [facility] Comment on above: Order Comment: Speci men Type: BLOOD SPECIMENOrdering Facility: [facility] Address: [address] [place] [address] Result Comment: Carol mated Glomerular Filtration Rate (eGFR) is calculated using the 2020 CKD-EPI creatinine equation. This equation utilizes serum creatinine, sex, and age as parameters. The creatinine assay has traceable calibration to isotope dilution-mass spectrometry. Refer to KDIGO guidelines for clinical interpretation. In patients with unstable renal function, e.g. those with acute kidney injury, the eGFR may not accurately reflect actual GFR. Performed By: #### 2 4323-8 ####[facility] LABCLIA [id number] [place] [address] Glucose [Mass/Vol] 141 mg/dL High 74-99 [facility] Comment on above: Order Comment: Julio gilbert Type: BLOOD SPECIMENOrdering Facility: [facility] Address: [address] [place] [address] Result Comment: The [place] [employer] (ADA) provides guidance for cutoff values for fasting glucose and random glucose. The ADA defines fasting as no caloric intake for at least 8 hours. Fasting plasma glucose results between 100 to 125 mg/dL indicate increased risk for diabetes (prediabetes). Fasting plasma glucose results greater than or equal to 126 mg/dL meet the criteria for diagnosis of diabetes. In the absence of unequivocal hyperglycemia, results should be confirmed by repeat testing. In a patient with classic symptoms of hyperglycemia or hyperglycemic crisis, random plasma glucose results greater than or equal to 200 mg/dL meet the criteria for diagnosis of diabetes. Reference: Standards of Medical Care in Diabetes 2016, [place] [employer]. Diabetes Care. 2016.39(Suppl 1). Performed By: #### 2 4323-8 ####[facility] LABCLIA [id number] [place] [address] Potassium [Moles/Vol] 4.1 mmol/L Normal 3.7-5.1 [facility] Comment on above: Order Comment: Julio gilbert Type: BLOOD SPECIMENOrdering Facility: [facility] Address: [address] [place] [address] Performed By: #### 2 4323-8 ####[facility] LABCLIA [id number] [place] [address] Protein [Mass/Vol] 7.1 g/dL Normal 6.3-8.0 [facility] Comment on above: Order Comment: Speci men Type: BLOOD SPECIMENOrdering Facility: [facility] Address: [address] [place] [address] Performed By: #### 2 4323-8 ####[facility] LABCLIA [id number] [place] [address] Sodium [Moles/Vol] 140 mmol/L Normal 136-144 [facility] Comment on above: Order Comment: Speci men Type: BLOOD SPECIMENOrdering Facility: [facility] Address: [address] [place] [address] Performed By: #### 2 4323-8 ####[facility] LABCLIA [id number] [place] [address] Urea nitrogen [Mass/Vol] 30 mg/dL High 9-24 [facility] Comment on above: Order Comment: Speci men Type: BLOOD SPECIMENOrdering Facility: [facility] Address: [address] [place] [address] Performed By: #### 2 4323-8 ####[facility] LABCLIA [id number] [place] [address] IMMUNOFIXATION SCREEN, SERUM on 05-14-2023 INTERPRETATION (MPA) Atypical restricted bands are present in the IgG and lambda regions. Consistent with IgG lambda monoclonal gammopathy. Normal [facility] Comment on above: Order Comment: Speci men Type: BLOOD SPECIMENOrdering Facility: [facility] Address: [address] [place] [address] Performed By: #### I [facility] ####[facility] LABCLIA [id number] [facility] [id number] [address] [place] MPA RESULT M protein is present. Abnormal No M protein is identified. [facility] Comment on above: Order Comment: Speci men Type: BLOOD SPECIMENOrdering Facility: [facility] Address: [address] [place] [address] Performed By: #### I FESC ####[facility] LABCLIA [id number] [address] [place] STAFF REVIEW (MPA) Reviewed by Jordana Guallpa MD Normal [facility] Comment on above: Order Comment: Speci men Type: BLOOD SPECIMENOrdering Facility: [facility] Address: [address] [place] [address] Performed By: #### I FES ####[facility] LABCLIA [id number] [place] [address] [place] IMMUNOGLOBULINS GAMon 2022 IgA [Mass/Vol] 42 mg/dL Low 70-400 [facility] Comment on above: Order Comment: Speci men Type: BLOOD SPECIMENOrdering Facility: [facility] Address: [address] [place] [address] Performed By: #### S ERIMM ####[facility] LABCLIA [id number] [place] [address] [place] IgG [Mass/Vol] 1823 mg/dL High 700-1600 [facility] Comment on above: Order Comment: Speci men Type: BLOOD SPECIMENOrdering Facility: [facility] Address: [address] [place] [address] Performed By: #### S ERIMM ####[facility] LABCLIA [id number] [place] [address] [place] IgM [Mass/Vol] 11 mg/dL Low 40-230 [facility] Comment on above: Order Comment: Speci men Type: BLOOD SPECIMENOrdering Facility: [facility] Address: [address] [place] [address] Performed By: #### S ERIMM ####[facility] LABCLIA [id number] [place] [address] [place] KAPPA/LOMBARDI,FREE,SERon 2022 Immunoglobulin light chains.kappa.free (S) [Mass/Vol] 19.6 mg/L High 3.3-19.4 [facility] Comment on above: Order Comment: Speci men Type: BLOOD SPECIMENOrdering Facility: [facility] Address: [address] [place] [address] Result Comment: Rare ly, increased serum free light chains levels may not be detected or accurately quantified due to prozone phenomenon or in high viscosity samples using this immunoturbidimetric assay. Correlation with other laboratory results and clinical findings is recommended. The [place] Free Light Chain was performed using the Binding Site Optilite immunoturbidimetric method. Result obtained with different assay methods or kits cannot be used interchangeably. Performed By: #### K LFRS ####[facility] LABCLIA [id number] [place] [address] [place] Immunoglobulin light chains.kappa/Immunoglo bulin light chains.lambda (S) [Mass ratio] 0.49 Normal 0.26-1.65 [facility] Comment on above: Order Comment: Speci [facility] Type: BLOOD SPECIMENOrdering Facility: [facility] Address: [address] [place] [address] Performed By: #### K LFRS ####[facility] LABCLIA [id number] [place] [address] [place] Immunoglobulin light chains.lambda.free [Mass/Vol] 40.1 mg/L High 5.7-26.3 [facility] Comment on above: Order Comment: Speci men Type: BLOOD SPECIMENOrdering Facility: [facility] Address: [address] [place] [address] Result Comment: Rare ly, increased serum free light chains levels may not be detected or accurately quantified due to prozone phenomenon or in high viscosity samples using this immunoturbidimetric assay. Correlation with other laboratory results and clinical findings is recommended. The Lambda Free Light Chain was performed using the Binding Site Optilite immunoturbidimetric method. Result obtained with different assay methods or kits cannot be used interchangeably. Performed By: #### K LFRS ####[facility] LABIA [id number] [place] [address] [place] PROTEIN ELECTROPHORESIS SERU M WITH KAYLA (P)on 05-14-2023 Albumin [Mass/Vol] 3.38 g/dL Low 3.43-5.41 [facility] Comment on above: Order Comment: Speci men Type: BLOOD SPECIMENOrdering Facility: [facility] Address: [address] [place] [address] Performed By: #### L [id number] ####[facility] LABIA [id number] [place] [address] [place] Alpha 1 globulin Elph [Mass/Vol] 0.35 g/dL Normal 0.18-0.43 [facility] Comment on above: Order Comment: Speci men Type: BLOOD SPECIMENOrdering Facility: [facility] Address: [address] [place] [address] Performed By: #### L [id number] ####[facility] LABIA [id number] [place] [address] [place] Alpha 2 globulin Elph [Mass/Vol] 0.90 g/dL Normal 0.42-0.98 [facility] Comment on above: Order Comment: Speci men Type: BLOOD SPECIMENOrdering Facility: [facility] Address: [address] [place] [address] Performed By: #### L [id number] ####[facility] LABIA [id number] [place] [address] [place] Beta globulin Elph [Mass/Vol] 0.51 g/dL Low 0.61-1.17 [facility] Comment on above: Order Comment: Speci men Type: BLOOD SPECIMENOrdering Facility: [facility] Address: [address] [place] [address] Performed By: #### L [id number] ####[facility] LABIA [id number] [place] [address] [place] COMMENT (SERUM PROT ELECTRO) Monoclonal Protein analysis (immunofixation) is not indicated. Normal [facility] Comment on above: Order Comment: Speci men Type: BLOOD SPECIMENOrdering Facility: [facility] Address: [address] [place] [address] Performed By: #### L [id number] ####[facility] LABIA [id number] [place] [address] [place] Gamma globulin Elph [Mass/Vol] 1.55 g/dL High 0.53-1.51 [facility] Comment on above: Order Comment: Speci men Type: BLOOD SPECIMENOrdering Facility: [facility] Address: [address] [place] [address] Performed By: #### L [id number] ####[facility] LABIA [id number] [address] INTERPRETATION COMMENT FOR PROTEIN ELECTROPHORESIS See separate immunofixation report for characterization of monoclonal gammopathy. Normal [facility] Comment on above: Order Comment: Speci men Type: BLOOD SPECIMENOrdering Facility: [facility] Address: [address] [place] [address] Performed By: #### L [id number] ####[facility] LABCLIA [id number] [address] [place] M-PROTEIN LOCATION Gamma Fraction 1 Normal [facility] Comment on above: Order Comment: Speci men Type: BLOOD SPECIMENOrdering Facility: [facility] Address: [address] [place] [address] Performed By: #### L [id number] ####[facility] LABIA [id number] [address] [place] Protein Fractions [Interp] An M protein is identified on protein electrophoresis. Abnormal No definitive M protein is identified on protein electrophor esis. [facility] Comment on above: Order Comment: Speci men Type: BLOOD SPECIMENOrdering Facility: [facility] Address: [address] [place] [address] Performed By: #### L [id number] ####[facility] LABCLIA [id number] [place] [address] [place] Protein.monoclonal Elph [Mass/Vol] 1.36 g/dL High <=0.00 [facility] Comment on above: Order Comment: Speci men Type: BLOOD SPECIMENOrdering Facility: [facility] Address: [address] [place] [address] Performed By: #### L [id number] ####[facility] LABCLIA [id number] [place] [address] [place] SPE STAFF REVIEW Reviewed by Jordana Guallpa MD [facility] Comment on above: Order Comment: Speci men Type: BLOOD SPECIMENOrdering Facility: [facility] Address: [address] [place] [address] Performed By: #### L [id number] ####[facility] LABCLIA [id number] [place] [address] [place] PROTEIN TOTAL BLDon 05-14-20 Protein [Mass/Vol] 6.7 g/dL 6.3 - 8.0 g/dL [facility] Prot SerPl-mCncon 05-14-2023 Protein [Mass/Vol] 6.7 g/dL Normal 6.3-8.0 [facility] Comment on above: Order Comment: Speci men Type: BLOOD SPECIMENOrdering Facility: [facility] Address: [address] [place] [address] Performed By: #### 2 885-2 ####[facility] LABCLIA [id number] [place] [address] [place] CT CHEST WO IVCONon 05-07-[address] CHEST WO IVCON * * *Final Report* * * DATE OF EXAM: May 07 2023 9:36AM [facility] 0541 - CT CHEST WO IVCON / PROCEDURE REASON: Malignant neoplasm of unspecified part of unspecified bronchus or lung (HCC) * * * * Physician Interpretation * * * * RESULT: EXAMINATION: CHEST CT WITHOUT CONTRAST CLINICAL HISTORY: Malignant neoplasm of unspecified part of unspecified bronchus or lung (HCC) Technique: Spiral CT acquisition of the chest from the thoracic inlet to the upper abdomen without contrast. MQ: [id number]_6 CT Radiation dose: Integrated Dose-length product (DLP) for this visit = 213 mGy*cm CT Dose Reduction Employed: Automated exposure control (AEC) Comparison: 02/14/23 RESULT: Limitations: None. Lines, tubes, and devices: None. 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 Mild emphysematous changes of the lungs. Right perihilar consolidative opacities, stable. Opacification of adjacent bronchi are again noted. Previously noted patchy opacities have decreased with mild groundglass residual. Residual 7 mm left upper lobe nodular opacity (4:82), previously 1.8 cm, decreased in size. New diffuse groundglass opacities and patchy opacities in the bilateral lung naidu. Pleural space: No pleural effusion. Calcified pleural plaques in the right lung (image 4: 45, 105), stable. Lower neck, lymph nodes, and mediastinum: The imaged thyroid gland is normal. No lymphadenopathy in the supraclavicular, axillary, mediastinal, or hilar regions. Heart, pericardium, and thoracic vessels: The thoracic aorta is normal in caliber. Main pulmonary artery is ectatic measuring 3.2 cm in diameter. The cardiac chambers are normal in size. Atherosclerotic coronary artery calcifications are noted. No pericardial effusion or thickening. Bones and soft tissues: Healing fracture deformities of several right ribs are again noted. No new osseous abnormalities. Upper abdomen: No evidence of an adrenal mass. 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 IMPRESSION: 1. Previously noted patchy opacities have decreased with mild groundglass residual. Residual 7 mm left upper lobe nodular opacity, decreased in size. 2. New diffuse groundglass opacities and patchy opacities in the bilateral lung naidu. Consider follow-up to complete resolution. 3. Right perihilar consolidative opacities, most likely a combination of postradiation change, other infectious/inflammatory etiologies and neoplasm, stable. Transcribe Date/Time: May 07 2023 2:17P Dictated by: ARIANA HANSEN MD This examination was interpreted and the report reviewed and electronically signed by: ARIANA HANSEN MD on May 07 2023 2:57PM EST Thank you for allowing us to participate in the care of your patient. Should there be any questions regarding this interpretation, please call [phone]. If you are unable to reach us at the number above, please feel free to contact [facility] at [phone]. [id number] Normal [facility] CT Chest WO contraston 05-07 IMPRESSION: 1. Previously noted patchy opacities have decreased with mild groundglass residual. Residual 7 mm left upper lobe nodular opacity, decreased in size. 2. New diffuse groundglass opacities and patchy opacities in the bilateral lung naidu. Consider follow-up to complete resolution. 3. Right perihilar consolidative opacities, most likely a combination of postradiation change, other infectious/inflammatory etiologies and neoplasm, stable. Transcribe Date/Time: May 07 2023 2:17P Dictated by: ARIANA HANSEN MD This examination was interpreted and the report reviewed and electronically signed by: ARIANA HANSEN MD on May 07 2023 2:57PM EST Thank you for allowing us to participate in the care of your patient. Should there be any questions regarding this interpretation, please call [phone]. If you are unable to reach us at the number above, please feel free to contact [facility] at [phone]. DIVISION OF RADIOLOGY * * *Final Report* * * DATE OF EXAM: May 07 2023 9:36AM [facility] [place] 0541 - CT CHEST WO IVCON / PROCEDURE REASON: Malignant neoplasm of unspecified part of unspecified bronchus or lung (HCC) * * * * Physician Interpretation * * * * RESULT: EXAMINATION: CHEST CT WITHOUT CONTRAST CLINICAL HISTORY: Malignant neoplasm of unspecified part of unspecified bronchus or lung (HCC) Technique: Spiral CT acquisition of the chest from the thoracic inlet to the upper abdomen without contrast. MQ: CTCWO_6 CT Radiation dose: Integrated Dose-length product (DLP) for this visit = 213 mGy*cm CT Dose Reduction Employed: Automated exposure control (AEC) Comparison: 02/14/23 RESULT: Limitations: None. Lines, tubes, and devices: None. 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 Mild emphysematous changes of the lungs. Right perihilar consolidative opacities, stable. Opacification of adjacent bronchi are again noted. Previously noted patchy opacities have decreased with mild groundglass residual. Residual 7 mm left upper lobe nodular opacity (4:82), previously 1.8 cm, decreased in size. New diffuse groundglass opacities and patchy opacities in the bilateral lung naidu. Pleural space: No pleural effusion. Calcified pleural plaques in the right lung (image 4: 45, 105), stable. Lower neck, lymph nodes, and mediastinum: The imaged thyroid gland is normal. No lymphadenopathy in the supraclavicular, axillary, mediastinal, or hilar regions. Heart, pericardium, and thoracic vessels: The thoracic aorta is normal in caliber. Main pulmonary artery is ectatic measuring 3.2 cm in diameter. The cardiac chambers are normal in size. Atherosclerotic coronary artery calcifications are noted. No pericardial effusion or thickening. Bones and soft tissues: Healing fracture deformities of several right ribs are again noted. No new osseous abnormalities. Upper abdomen: No evidence of an adrenal mass. 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 DIVISION OF RADIOLOGY Provider, [facility] - 05/07/2023 * * *Final Report* * * DATE OF EXAM: May 07 2023 9:36AM [facility] [place] 0541 - CT CHEST WO IVCON / PROCEDURE REASON: Malignant neoplasm of unspecified part of unspecified bronchus or lung (HCC) * * * * Physician Interpretation * * * * RESULT: EXAMINATION: CHEST CT WITHOUT CONTRAST CLINICAL HISTORY: Malignant neoplasm of unspecified part of unspecified bronchus or lung (HCC) Technique: Spiral CT acquisition of the chest from the thoracic inlet to the upper abdomen without contrast. MQ: CTCWO_6 CT Radiation dose: Integrated Dose-length product (DLP) for this visit = 213 mGy*cm CT Dose Reduction Employed: Automated exposure control (AEC) Comparison: 02/14/23 RESULT: Limitations: None. Lines, tubes, and devices: None. 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 Mild emphysematous changes of the lungs. Right perihilar consolidative opacities, stable. Opacification of adjacent bronchi are again noted. Previously noted patchy opacities have decreased with mild groundglass residual. Residual 7 mm left upper lobe nodular opacity (4:82), previously 1.8 cm, decreased in size. New diffuse groundglass opacities and patchy opacities in the bilateral lung naidu. Pleural space: No pleural effusion. Calcified pleural plaques in the right lung (image 4: 45, 105), stable. Lower neck, lymph nodes, and mediastinum: The imaged thyroid gland is normal. No lymphadenopathy in the supraclavicular, axillary, mediastinal, or hilar regions. Heart, pericardium, and thoracic vessels: The thoracic aorta is normal in caliber. Main pulmonary artery is ectatic measuring 3.2 cm in diameter. The cardiac chambers are normal in size. Atherosclerotic coronary artery calcifications are noted. No pericardial effusion or thickening. Bones and soft tissues: Healing fracture deformities of several right ribs are again noted. No new osseous abnormalities. Upper abdomen: No evidence of an adrenal mass. 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 IMPRESSION IMPRESSION: 1. Previously noted patchy opacities have decreased with mild groundglass residual. Residual 7 mm left upper lobe nodular opacity, decreased in size. 2. New diffuse groundglass opacities and patchy opacities in the bilateral lung naidu. Consider follow-up to complete resolution. 3. Right perihilar consolidative opacities, most likely a combination of postradiation change, other infectious/inflammatory etiologies and neoplasm, stable. Transcribe Date/Time: May 07 2023 2:17P Dictated by: ARIANA HANSEN MD This examination was interpreted and the report reviewed and electronically signed by: ARIANA HANSEN MD on May 07 2023 2:57PM EST Thank you for allowing us to participate in the care of your patient. Should there be any questions regarding this interpretation, please call [phone]. If you are unable to reach us at the number above, please feel free to contact [facility] at [phone]. [facility] Study observation (narrative) [facility] Chest WO contrastOrdered By: [facility] Provider on 05-07-2023 [facility] [place] 05-04-2023 [facility] Telephone ([facility]) -- MARANDARAGHAVENDRA Silvio ([id number]) 1945 M Date Time Provider Department 05/04/23 RHONA RUIZ During your visit today, we recorded the following information about you: Rhona Ruiz RN 05/04/2023 11:46 AM Signed Pt requesting to have his Meloxicam refilled. Per pt's record, it appears the pt should have refills remaining. Spoke w/ pharmacist @ [facility] in [place]. Pharmacist confirms that they have a script w/ refills on file. Notes that they are almost done filling it. Pt notified and verbalizes understanding. Rhona Ruiz RN Allergies As of Date: 05/04/2023 (No Known Allergies) Date Reviewed: 05/03/2023 Reviewed by: Lexus Alberts DO - Fully Assessed Reason for Visit: Care Coordination [9744] Cmt: Medication Question Prescriptions as of 05/04/2023 - albuterol (PROVENTIL) 2.5 mg /3 mL (0.083 %) nebulizer solution 2.5 mg every 4 hours as needed. - ANORO ELLIPTA 62.5-25 mcg/actuation inhaler INHALE 1 PUFF INTO THE LUNGS EVERY DAY FOR 90 DAYS - pregabalin (LYRICA) 75 mg capsule Take 1 capsule by mouth three times a day for 90 days. - DULoxetine (CYMBALTA) 60 mg capsule Take 1 capsule by mouth two times a day. - HYDROcodone-acetaminophen (NORCO) 5-325 mg per tablet Take 2 tablets by mouth every 6 hours as needed. - predniSONE (DELTASONE) 10 mg tablet Take 1 tablet by mouth once daily. Take 4 daily x 5 days, then 2 daily x 5 days, then 1 daily or as directed. - levoFLOXacin (LEVAQUIN) 500 mg tablet Take 1 tablet by mouth once daily. - meloxicam (MOBIC) 15 mg tablet Take 1 tablet by mouth once daily. - senna (SENNA LAXATIVE) 8.6 mg tab Take 2 tablets by mouth twice daily. - clonazePAM (KLONOPIN) 1 mg tablet Take 1 tablet by mouth three times daily as needed for up to 30 days. - docusate sodium (COLACE) 100 mg capsule TAKE 2 CAPSULES BY MOUTH TWICE A DAY - naloxone 4 mg/actuation nasal spray (NARCAN) Use 1 spray in one nostril as needed for overdose. May repeat every 2 to 3 min in alternating nostrils until medical assistance is available - finasteride (PROSCAR) 5 mg tablet - triamterene-hydroCHLOROthi azide (MAXZIDE-25) 37.5-25 mg per tablet TAKE 1 TABLET BY MOUTH EVERY DAY IN THE MORNING - ondansetron (ZOFRAN) 8 mg tablet Take 1 tablet by mouth every 8 hours as needed for nausea/vomiting. - prochlorperazine (COMPAZINE) 10 mg tablet Take 1 tablet by mouth every 6 hours as needed. - metoprolol succinate ER (TOPROL XL) 25 mg 24 hr tablet Take 25 mg by mouth once daily. - mv-mn/iron/folic acid/herb 190 (VITAMIN D3 COMPLETE ORAL) Take by mouth. - ZINC ORAL Take by mouth. - tamsulosin ER (FLOMAX) 0.4 mg cap - nitroglycerin sublingual (NITROQUICK) 0.4 mg SL tablet Dissolve 0.4 mg under the tongue every 5 minutes as needed. - Aspirin 81 mg CpDR Take 81 mg by mouth once daily. - atorvastatin 40 mg tablet Take 40 mg by mouth once daily. - DOCOSAHEXANOIC ACID/EPA (FISH OIL ORAL) Take by mouth. 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 Lung cancer (HCC) [C34.90] 05/03/2022 Malignant neoplasm of upper lobe of right lung *05/03/2022 Malnutrition of mild degree (HCC) [E44.1] 11/20/2022 Moderate major depression, single episode (HCC)*12/06/2022 Encounter Status:Closed by RHONA RUIZ on 05/04/23 Normal [facility] Office Visiton 05-04-2023 Follow-up visit [id number] Raghavendra Heard 1945 M Date Provider Department Center 05/04/2023 DejaLEO [place] Family History Problem Relation Age of Onset Diabetes Other Other Other Family Status - Relation Status Age at Other Level of Service:[address] [place] OFFICE/OUTPATIENT ESTABLISHED MOD MDM 30-39 MIN Normal [facility] CNOVon 05-03-2023 CNOV Office Visit (PAMAVN ) -- RAGHAVENDRA HEARD ([id number]) 1945 M Date Time Provider Department 05/03/23 11:00 AM LEXUS ALBERTS During your visit today, we recorded the following information about you: Pulse Blood pressure Weight Height 50/minute 150/74 68.9 kg 1.727 m Lexus Alberts DO 05/03/2023 1:08 PM Signed [facility] Follow Up Visit May SUBJECTIVE: Raghavendra Heard a 78 year old presents to [facility], accompanied by spouse, radha , for a follow up appointment for 1 year follow up visit for Rt sided chest wall pain. AMB ROOMING INTAKE FLOWSHEET DATA The pain is located in the Rt side chest and does not radiate. Distribution: 100% chest Started 4 years ago, was not directly related to trauma, and symptoms have been persistent. Characterized as sharp Pain is constant Currently the pain is a rated at a 6 on a scale of 0-10. Worst pain score is rated at NA on a scale of 0-10. Best pain score is rated at 0 on a scale of 0-10. Aggravated by lifting and movement. Mitigated by medications. The plan from the last visit on 04/24/2022 was: PLAN: Continue Cymbalta 60 mg twice daily, refill given. Continue Gabapentin and [place] per Dr. Becker. RTC in 1 year for F/U his last visit the patient reported moderate improvement in pain and moderate improvement in function. Current pain medication: 1.) duloxetine,meloxicam,hydro codone Last Dose: 8 am today, Side effects No Current Anticoagulant Therapy: No PAST MEDICAL HISTORY Diagnosis Date Anxiety Enlarged prostate HTN (hypertension) Hypercholesteremia Multiple myeloma, without mention of having achieved remission PAST SURGICAL HISTORY Procedure Laterality Date REMOVAL OF LUNG,LOBECTOMY Right 04/24/2019 right upper lobe Current Outpatient Medications Medication Sig DULoxetine (CYMBALTA) 60 mg capsule Take 1 capsule by mouth two times a day. HYDROcodone-acetaminophen (NORCO) 5-325 mg per tablet Take 2 tablets by mouth every 6 hours as needed. predniSONE (DELTASONE) 10 mg tablet Take 1 tablet by mouth once daily. Take 4 daily x 5 days, then 2 daily x 5 days, then 1 daily or as directed. levoFLOXacin (LEVAQUIN) 500 mg tablet Take 1 tablet by mouth once daily. meloxicam (MOBIC) 15 mg tablet Take 1 tablet by mouth once daily. senna (SENNA LAXATIVE) 8.6 mg tab Take 2 tablets by mouth twice daily. clonazePAM (KLONOPIN) 1 mg tablet Take 1 tablet by mouth three times daily as needed for up to 30 days. docusate sodium (COLACE) 100 mg capsule TAKE 2 CAPSULES BY MOUTH TWICE A DAY gabapentin (NEURONTIN) 300 mg capsule Take 2 capsules by mouth three times daily for 30 days. naloxone 4 mg/actuation nasal spray (NARCAN) Use 1 spray in one nostril as needed for overdose. May repeat every 2 to 3 min in alternating nostrils until medical assistance is available finasteride (PROSCAR) 5 mg tablet triamterene-hydroCHLOROthi azide (MAXZIDE-25) 37.5-25 mg per tablet TAKE 1 TABLET BY MOUTH EVERY DAY IN THE MORNING ondansetron (ZOFRAN) 8 mg tablet Take 1 tablet by mouth every 8 hours as needed for nausea/vomiting. prochlorperazine (COMPAZINE) 10 mg tablet Take 1 tablet by mouth every 6 hours as needed. metoprolol succinate ER (TOPROL XL) 25 mg 24 hr tablet Take 25 mg by mouth once daily. mv-mn/iron/folic acid/herb 190 (VITAMIN D3 COMPLETE ORAL) Take by mouth. ZINC ORAL Take by mouth. tamsulosin ER (FLOMAX) 0.4 mg cap baclofen (LIORESAL) 10 mg tablet Take 10 mg by mouth three times daily. (Patient not taking: Reported on 04/02/2023) nitroglycerin sublingual (NITROQUICK) 0.4 mg SL tablet Dissolve 0.4 mg under the tongue every 5 minutes as needed. Aspirin 81 mg CpDR Take 81 mg by mouth once daily. atorvastatin 40 mg tablet Take 40 mg by mouth once daily. DOCOSAHEXANOIC ACID/EPA (FISH OIL ORAL) Take by mouth. No current facility-administered medications for this visit. ALLERGIES No Known Allergies Review of Symptoms: GENERAL:No weight loss, malaise or fevers., SEE HPI GASTROINTESTINAL: Negative for abdominal discomfort, blood in stools or black stools or change in bowel habits GENITOURINARY: No history of dysuria, frequency or incontinence MUSCULOSKELETAL: see hpi NEUROLOGIC:Negative for focal numbness or weakness, headaches and dizziness or syncope. PREVIOUS TREATMENTS LASTING SIX WEEKS IN THE LAST SIX MONTHS Active conservative therapy lasting 6 weeks in the last six months (see below) 1. Physical therapy: No 2. Home exercise program after PT: No 3. Occupational therapy: No 4. A physician supervised home exercise program (HEP): No 5. Sterile Instrument Technician: No Passive conservative therapy lasting 6 weeks in the last six months (see below) 1. Medical devises: No 2. Acupuncture: No 3. Tens unit: No 4. Prescription pain medication: Yes 5. NSAIDS: No Do (more content not included)... Normal [facility] ABO/Rh Retypeon 02-21-2023 ABO/RH Recheck Result Positive Normal [facility] Comment on above: Result Comment: PERF ORMED BY: [facility] [address] [place] [address] [facility] [employer] PREET MUNOZ M.D. Hemoglobin and Hematocriton 02-20-2023 Hematocrit (Bld) [Volume fraction] 25.0 % Low 38.8-50.0 [facility] Comment on above: Result Comment: PERF ORMED BY: [address] [id number] [facility] PREET MUNOZ M.D. Performed By: #### H H #### [facility] [address] [place] [address] [facility] Hemoglobin (Bld) [Mass/Vol] 8.4 g/dL Low 13.0-17.0 [facility] Comment on above: Performed By: #### H H #### [address] [address] [facility] LeukoReduced RBCon LeukoReduced RBC TRANSFUSED 02/21/23 1028 [facility] Type and Screenon 02-20-2023 ABO and Rh group Nom (Bld) Blood group A Rh(D) positive [facility] Comment on above: Order Comment: Trans fuse now? N Result Comment: PERF ORMED BY: [address] [id number] [facility] PREET MUNOZ M.D. Basic metabolic 2000 panelon 02-19-2023 Anion gap [Moles/Vol] 9 mmol/L 9 - 18 mmol/L [facility] Calcium [Mass/Vol] 8.8 mg/dL 8.5 - 10. 2 mg/dL [facility] Chloride [Moles/Vol] 103 mmol/L 97 - 10 5 mmol/L [facility] CO2 [Moles/Vol] 26 mmol/L 22 - 30 mmol/L [facility] Creatinine [Mass/Vol] 0.87 mg/dL 0.73 - 1.22 mg/dL [facility] Estimated Glomerular Filtration Rate 89 mL/min/1.73m >=60 mL/min/1.73 m [facility] Glucose [Mass/Vol] 120 mg/dL High 74 - 99 mg/dL [facility] Potassium [Moles/Vol] 3.7 mmol/L 3.7 - 5.1 mmol/L [facility] Sodium [Moles/Vol] 138 mmol/L 136 - 144 mmol/L [facility] Urea nitrogen [Mass/Vol] 20 mg/dL 9 - 24 mg/dL [facility] CBC W Auto Differential pane l (Bld)on 02-19-2023 Basophils (Bld) [#/Vol] 0.03 10*3/uL <0.11 k/uL [facility] Basophils/100 WBC (Bld) 0.5 % [facility] Differential cell count method Nom (Bld) Auto [facility] Eosinophils (Bld) [#/Vol] 0.09 10*3/uL <0.46 k/uL [facility] Eosinophils/100 WBC (Bld) 1.4 % [facility] Erythrocyte distribution width (RBC) [Ratio] 15.8 % High 11.5 - 15.0 % [facility] Hematocrit (Bld) [Volume fraction] 25.2 % Low 39.0 - 51.0 % [facility] Hemoglobin (Bld) [Mass/Vol] 8.1 g/dL Low 13.0 - 17.0 g/dL [facility] Immature granulocytes (Bld) [#/Vol] <0.10 k/uL [facility] Immature granulocytes/100 WBC (Bld) 0.3 % [facility] Lymphocytes (Bld) [#/Vol] 1.20 10*3/uL 1.00 - 4.00 k/uL [facility] Lymphocytes/100 WBC (Bld) 18.4 % [facility] MCH (RBC) [Entitic mass] 33.6 pg 26.0 - 34.0 pg [facility] MCHC (RBC) [Mass/Vol] 32.1 g/dL 30.5 - 36.0 g/dL [facility] MCV (RBC) [Entitic vol] 104.6 fL High 80.0 - 100.0 fL [facility] Monocytes (Bld) [#/Vol] 0.51 10*3/uL <0.87 k/uL [facility] Monocytes/100 WBC (Bld) 7.8 % [facility] Neutrophils (Bld) [#/Vol] 4.67 10*3/uL 1.45 - 7.50 k/uL [facility] Neutrophils/100 WBC (Bld) 71.6 % [facility] Nucleated RBC (Bld) [#/Vol] <0.01 k/uL [facility] Nucleated RBC/100 WBC (Bld) [Ratio] 0.0 /100 WBC [facility] Platelet mean volume (Bld) [Entitic vol] 9.1 fL 9.0 - 12.7 fL [facility] Platelets (Bld) [#/Vol] 243 10*3/uL 150 - 400 k/uL [facility] RBC (Bld) [#/Vol] 2.41 10*6/uL Low 4.20 - 6.0 0 m/uL [facility] WBC (Bld) [#/Vol] 6.52 10*3/uL 3.70 - 11.00 k/uL [facility] CT Chest WO contraston 02-14 IMPRESSION: 1. Right perihilar consolidative opacities, increased since 09/26/22, most likely a combination of postradiation change, other infectious/infiltrative etiologies and neoplasm. 2. New patchy opacities and reticulonodular opacities in the bilateral lung naidu most likely infectious/inflammatory in etiology. Superimposed neoplasm cannot be excluded. Consider continued interval follow-up. Transcribe Date/Time: Feb 14 2023 2:22P Dictated by: ARIANA HANSEN MD This examination was interpreted and the report reviewed and electronically signed by: ARIANA HANSEN MD on Feb 14 2023 3:04PM EST Thank you for allowing us to participate in the care of your patient. Should there be any questions regarding this interpretation, please call [phone]. If you are unable to reach us at the number above, please feel free to contact [facility] at [phone]. DIVISION OF RADIOLOGY * * *Final Report* * * DATE OF EXAM: Feb 14 2023 9:59AM [facility] 0541 - CT CHEST WO IVCON / PROCEDURE REASON: Malignant neoplasm of unspecified part of unspecified bronchus or lung (HCC) * * * * Physician Interpretation * * * * RESULT: EXAMINATION: CHEST CT WITHOUT CONTRAST CLINICAL HISTORY: Malignant neoplasm of unspecified part of unspecified bronchus or lung (HCC) Technique: Spiral CT acquisition of the chest from the thoracic inlet to the upper abdomen without contrast. MQ: CTCWO_6 CT Radiation dose: Integrated Dose-length product (DLP) for this visit = 200 mGy*cm CT Dose Reduction Employed: Automated exposure control (AEC) Comparison: 09/26/22 RESULT: Limitations: None. Lines, tubes, and devices: None. 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 Mild emphysematous changes of the lungs. Right perihilar consolidative opacities, increased. Opacification of adjacent bronchi are again noted. New patchy opacities and reticulonodular opacities of the lung naidu most likely infectious/inflammatory in etiology. Pleural space: No pleural effusion. Calcified pleural plaques in the right lung (image 4: 46, 107), stable. Lower neck, lymph nodes, and mediastinum: The imaged thyroid gland is normal. No lymphadenopathy in the supraclavicular, axillary, mediastinal, or hilar regions. Heart, pericardium, and thoracic vessels: The thoracic aorta and main pulmonary artery are normal in caliber. The cardiac chambers are normal in size. Atherosclerotic coronary artery calcifications are noted. No pericardial effusion or thickening. Bones and soft tissues: Healing fracture deformities of several right ribs are again noted. No new osseous abnormalities. Upper abdomen: No evidence of an adrenal mass. 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 DIVISION OF RADIOLOGY Provider, [facility] - 02/14/2023 * * *Final Report* * * DATE OF EXAM: Feb 14 2023 9:59AM [facility] 0541 - CT CHEST WO IVCON / PROCEDURE REASON: Malignant neoplasm of unspecified part of unspecified bronchus or lung (HCC) * * * * Physician Interpretation * * * * RESULT: EXAMINATION: CHEST CT WITHOUT CONTRAST CLINICAL HISTORY: Malignant neoplasm of unspecified part of unspecified bronchus or lung (HCC) Technique: Spiral CT acquisition of the chest from the thoracic inlet to the upper abdomen without contrast. MQ: CTCWO_6 CT Radiation dose: Integrated Dose-length product (DLP) for this visit = 200 mGy*cm CT Dose Reduction Employed: Automated exposure control (AEC) Comparison: 09/26/22 RESULT: Limitations: None. Lines, tubes, and devices: None. 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 Mild emphysematous changes of the lungs. Right perihilar consolidative opacities, increased. Opacification of adjacent bronchi are again noted. New patchy opacities and reticulonodular opacities of the lung naidu most likely infectious/inflammatory in etiology. Pleural space: No pleural effusion. Calcified pleural plaques in the right lung (image 4: 46, 107), stable. Lower neck, lymph nodes, and mediastinum: The imaged thyroid gland is normal. No lymphadenopathy in the supraclavicular, axillary, mediastinal, or hilar regions. Heart, pericardium, and thoracic vessels: The thoracic aorta and main pulmonary artery are normal in caliber. The cardiac chambers are normal in size. Atherosclerotic coronary artery calcifications are noted. No pericardial effusion or thickening. Bones and soft tissues: Healing fracture deformities of several right ribs are again noted. No new osseous abnormalities. Upper abdomen: No evidence of an adrenal mass. 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 IMPRESSION IMPRESSION: 1. Right perihilar consolidative opacities, increased since 09/26/22, most likely a combination of postradiation change, other infectious/infiltrative etiologies and neoplasm. 2. New patchy opacities and reticulonodular opacities in the bilateral lung naidu most likely infectious/inflammatory in etiology. Superimposed neoplasm cannot be excluded. Consider continued interval follow-up. Transcribe Date/Time: Feb 14 2023 2:22P Dictated by: ARIANA HANSEN MD This examination was interpreted and the report reviewed and electronically signed by: ARIANA HANSEN MD on Feb 14 2023 3:04PM EST Thank you for allowing us to participate in the care of your patient. Should there be any questions regarding this interpretation, please call [phone]. If you are unable to reach us at the number above, please feel free to contact [facility] at [phone]. [facility] Study observation (narrative) [facility] Chest WO contrastOrdered By: [facility] Provider on 02-14-2023 [facility] CBC W Auto Differential pane l (Bld)on 01-01-2023 Basophils (Bld) [#/Vol] <0.11 k/uL [facility] Basophils/100 WBC (Bld) 0.2 % [facility] Differential cell count method Nom (Bld) Auto [facility] Eosinophils (Bld) [#/Vol] 0.03 10*3/uL <0.46 k/uL [facility] Eosinophils/100 WBC (Bld) 0.3 % [facility] Erythrocyte distribution width (RBC) [Ratio] 15.6 % High 11.5 - 15.0 % [facility] Hematocrit (Bld) [Volume fraction] 29.9 % Low 39.0 - 51.0 % [facility] Hemoglobin (Bld) [Mass/Vol] 9.8 g/dL Low 13.0 - 17.0 g/dL [facility] Immature granulocytes (Bld) [#/Vol] <0.10 k/uL [facility] Immature granulocytes/100 WBC (Bld) 0.2 % [facility] Lymphocytes (Bld) [#/Vol] 1.35 10*3/uL 1.00 - 4.00 k/uL [facility] Lymphocytes/100 WBC (Bld) 15.6 % [facility] MCH (RBC) [Entitic mass] 35.4 pg High 26.0 - 34.0 pg [facility] MCHC (RBC) [Mass/Vol] 32.8 g/dL 30.5 - 36.0 g/dL [facility] MCV (RBC) [Entitic vol] 107.9 fL High 80.0 - 100.0 fL [facility] Monocytes (Bld) [#/Vol] 0.85 10*3/uL <0.87 k/uL [facility] Monocytes/100 WBC (Bld) 9.8 % [facility] Neutrophils (Bld) [#/Vol] 6.39 10*3/uL 1.45 - 7.50 k/uL [facility] Neutrophils/100 WBC (Bld) 73.9 % [facility] Nucleated RBC (Bld) [#/Vol] <0.01 k/uL [facility] Nucleated RBC/100 WBC (Bld) [Ratio] 0.0 /100 WBC [facility] Platelet mean volume (Bld) [Entitic vol] 9.4 fL 9.0 - 12.7 fL [facility] Platelets (Bld) [#/Vol] 282 10*3/uL 150 - 400 k/uL [facility] RBC (Bld) [#/Vol] 2.77 10*6/uL Low 4.20 - 6.0 0 m/uL [facility] WBC (Bld) [#/Vol] 8.66 10*3/uL 3.70 - 11.00 k/uL [facility] Comprehensive metabolic 2000 panelon 01-01-2023 Albumin [Mass/Vol] 3.6 g/dL Low 3.9 - 4.9 g/dL [facility] ALP [Catalytic activity/Vol] 72 U/L 38 - 113 U/L [facility] ALT [Catalytic activity/Vol] 17 U/L 10 - 54 U/L [facility] Anion gap [Moles/Vol] 7 mmol/L Low 9 - 18 mmol/L [facility] AST [Catalytic activity/Vol] 17 U/L 14 - 40 U/L [facility] Bilirubin [Mass/Vol] 0.2 mg/dL 0.2 - 1 .3 mg/dL [facility] Calcium [Mass/Vol] 9.2 mg/dL 8.5 - 10. 2 mg/dL [facility] Chloride [Moles/Vol] 101 mmol/L 97 - 10 5 mmol/L [facility] CO2 [Moles/Vol] 29 mmol/L 22 - 30 mmol/L [facility] Creatinine [Mass/Vol] 0.90 mg/dL 0.73 - 1.22 mg/dL [facility] Estimated Glomerular Filtration Rate 89 mL/min/1.73m >=60 mL/min/1.73 m [facility] Glucose [Mass/Vol] 130 mg/dL High 74 - 99 mg/dL [facility] Potassium [Moles/Vol] 3.8 mmol/L 3.7 - 5.1 mmol/L [facility] Protein [Mass/Vol] 7.7 g/dL 6.3 - 8.0 g/dL [facility] Sodium [Moles/Vol] 137 mmol/L 136 - 144 mmol/L [facility] Urea nitrogen [Mass/Vol] 20 mg/dL 9 - 24 mg/dL [facility] IMMUNOGLOBULINS GAMon 2022 IgA [Mass/Vol] 42 mg/dL Low 70 - 400 mg/dL [facility] IgG [Mass/Vol] 2244 mg/dL High 700 - 1,600 mg/[facility] IgM [Mass/Vol] 12 mg/dL Low 40 - 230 mg/dL [facility] PROTEIN TOTAL BLDon 01-02-20 23 Protein [Mass/Vol] 7.0 g/dL 6.3 - 8.0 g/dL [facility] MR head/brain wo/w conon MR head/brain wo/w con [facility] Main [place] [address] [place] [address] MRI Report Signed Patient: Raghavendra Heard MR#: [id number] 8 : 1945 Acct:[id number] Age/Sex: 77 / M ADM Date: 12/16/22 Loc: MR Room: Type: [facility] Attending Dr: Amber Rodriguez COMMUNITY SERVICE OFFICER COORDINATOR-C Copies to: BELLE Riebra Ordering Provider: BELLE Ribera Date of Service: 12/16/22 MR/MR head/brain wo/w con: C34.01 MRI BRAIN WITHOUT AND WITH INTRAVENOUS CONTRAST CLINICAL DATA: Unsteady gait, dizziness, loss of balance and personality changes. History of multiple myeloma and lung cancer. COMPARISON: CT brain 10/02/2022 Multiecho, multiplanar imaging of the brain was performed before and after intravenous administration of 15 mL of ProHance. There is mild generalized atrophy. The ventricles are normal in size and position. There is minor increased T2 and FLAIR signal within the periventricular subcortical white matter as well as the maria e toward the right. This is nonspecific though given the presence of carotid siphon plaque on the comparison CT, this is probably chronic microvascular disease. There are no additional areas of abnormal signal intensity or enhancement within the supra or infratentorial brain. There is no restricted diffusion to suggest a recent ischemic event. No extra-axial collections or mass effect are seen. No midline abnormalities are noted. The imaged paranasal sinuses and mastoid air cells are clear. MR/MR head/brain wo/w con IMPRESSION: MILD ATROPHY AND CHRONIC MICROVASCULAR DISEASE. NO ACUTE INTRACRANIAL FINDINGS. Impression dictated by: Kylee Loyd M.D.12/16/2022 5:59 PM Dictation Location: [place] [address] Transcribed By: [facility] 12/16/221758 Dictated By: Kylee Loyd MD 12/16/221752 Signed By: 12/16/221758 [facility] CBC W Auto Differential pane l (Bld)on 12-04-2022 Basophils (Bld) [#/Vol] <0.11 k/uL [facility] Basophils/100 WBC (Bld) 0.1 % [facility] Differential cell count method Nom (Bld) Auto [facility] Eosinophils (Bld) [#/Vol] <0.46 k/uL [facility] Eosinophils/100 WBC (Bld) 0.3 % [facility] Erythrocyte distribution width (RBC) [Ratio] 15.8 % High 11.5 - 15.0 % [facility] Hematocrit (Bld) [Volume fraction] 32.0 % Low 39.0 - 51.0 % [facility] Hemoglobin (Bld) [Mass/Vol] 10.5 g/dL Low 13.0 - 17.0 g/dL [facility] Immature granulocytes (Bld) [#/Vol] 0.04 10*3/uL <0.10 k/uL [facility] Immature granulocytes/100 WBC (Bld) 0.5 % [facility] Lymphocytes (Bld) [#/Vol] 0.62 10*3/uL Low 1.00 - 4.00 k/uL [facility] Lymphocytes/100 WBC (Bld) 8.5 % [facility] MCH (RBC) [Entitic mass] 36.2 pg High 26.0 - 34.0 pg [facility] MCHC (RBC) [Mass/Vol] 32.8 g/dL 30.5 - 36.0 g/dL [facility] MCV (RBC) [Entitic vol] 110.3 fL High 80.0 - 100.0 fL [facility] Monocytes (Bld) [#/Vol] 0.16 10*3/uL <0.87 k/uL [facility] Monocytes/100 WBC (Bld) 2.2 % [facility] Neutrophils (Bld) [#/Vol] 6.46 10*3/uL 1.45 - 7.50 k/uL [facility] Neutrophils/100 WBC (Bld) 88.4 % [facility] Nucleated RBC (Bld) [#/Vol] <0.01 k/uL [facility] Nucleated RBC/100 WBC (Bld) [Ratio] 0.0 /100 WBC [facility] Platelet mean volume (Bld) [Entitic vol] 9.1 fL 9.0 - 12.7 fL [facility] Platelets (Bld) [#/Vol] 259 10*3/uL 150 - 400 k/uL [facility] RBC (Bld) [#/Vol] 2.90 10*6/uL Low 4.20 - 6.0 0 m/uL [facility] WBC (Bld) [#/Vol] 7.31 10*3/uL 3.70 - 11.00 k/uL [facility] Comprehensive metabolic 2000 panelon 12-04-2022 Albumin [Mass/Vol] 3.7 g/dL Low 3.9 - 4.9 g/dL [facility] ALP [Catalytic activity/Vol] 66 U/L 38 - 113 U/L [facility] ALT [Catalytic activity/Vol] 20 U/L 10 - 54 U/L [facility] Anion gap [Moles/Vol] 7 mmol/L Low 9 - 18 mmol/L [facility] AST [Catalytic activity/Vol] 15 U/L 14 - 40 U/L [facility] Bilirubin [Mass/Vol] 0.2 mg/dL 0.2 - 1 .3 mg/dL [facility] Calcium [Mass/Vol] 9.4 mg/dL 8.5 - 10. 2 mg/dL [facility] Chloride [Moles/Vol] 104 mmol/L 97 - 10 5 mmol/L [facility] CO2 [Moles/Vol] 27 mmol/L 22 - 30 mmol/L [facility] Creatinine [Mass/Vol] 0.84 mg/dL 0.73 - 1.22 mg/dL [facility] Estimated Glomerular Filtration Rate 91 mL/min/1.73m >=60 mL/min/1.73 m [facility] Glucose [Mass/Vol] 173 mg/dL High 74 - 99 mg/dL [facility] Potassium [Moles/Vol] 4.3 mmol/L 3.7 - 5.1 mmol/L [facility] Protein [Mass/Vol] 7.4 g/dL 6.3 - 8.0 g/dL [facility] Sodium [Moles/Vol] 138 mmol/L 136 - 144 mmol/L [facility] Urea nitrogen [Mass/Vol] 28 mg/dL High 9 - 24 mg/dL [facility] XR Chest PA and Lateralon IMPRESSION: 1. Diffuse interstitial opacities throughout both lungs, suggestive of edema. 2. More patchy regions of airspace opacification within the right mid and lower lung, which could be infectious/inflammatory. If warranted, consider chest CT for further assessment. 3. Small right pleural effusion. Transcribe Date/Time: Nov 15 2022 3:34P Dictated by: RESHMA CHINCHILLA MD This examination was interpreted and the report reviewed and electronically signed by: RESHMA CHINCHILLA MD on Nov 15 2022 3:57PM EST Thank you for allowing us to participate in the care of your patient. Should there be any questions regarding this interpretation, please call [phone]. If you are unable to reach us at the number above, please feel free to contact [facility] at [phone]. DIVISION OF RADIOLOGY * * *Final Report* * * DATE OF EXAM: Nov 15 2022 3:33PM [id number] - XR CHEST 2V FRONTAL/LAT / PROCEDURE REASON: multiple diagnoses * * * * Physician Interpretation * * * * RESULT: EXAMINATION: CHEST RADIOGRAPH (2 VIEW FRONTAL & LATERAL) CLINICAL HISTORY: Malignant neoplasm of upper lobe of right lung (HCC) Multiple myeloma not having achieved remission (HCC) MQ: XC2_6 EXAM DATE/TIME: 11/15/2022 3:33 PM COMPARISON: CT chest 09/26/2022 RESULT: Lines, tubes, and devices: The tip of a right chest wall port extends to the lower SVC. Lungs and pleura: There are diffuse bilateral interstitial opacities. More patchy regions of airspace desiccation are present within the right mid and lower lung zones. Small right pleural effusion is present. No pneumothorax. Cardiomediastinal silhouette: Normal cardiomediastinal silhouette. Bones and soft tissues: Unremarkable. DIVISION OF RADIOLOGY Provider, [facility] - 11/15/2022 * * *Final Report* * * DATE OF EXAM: Nov 15 2022 3:33PM [id number] - XR CHEST 2V FRONTAL/LAT / PROCEDURE REASON: multiple diagnoses * * * * Physician Interpretation * * * * RESULT: EXAMINATION: CHEST RADIOGRAPH (2 VIEW FRONTAL & LATERAL) CLINICAL HISTORY: Malignant neoplasm of upper lobe of right lung (HCC) Multiple myeloma not having achieved remission (HCC) MQ: XC2_6 EXAM DATE/TIME: 11/15/2022 3:33 PM COMPARISON: CT chest 09/26/2022 RESULT: Lines, tubes, and devices: The tip of a right chest wall port extends to the lower SVC. Lungs and pleura: There are diffuse bilateral interstitial opacities. More patchy regions of airspace desiccation are present within the right mid and lower lung zones. Small right pleural effusion is present. No pneumothorax. Cardiomediastinal silhouette: Normal cardiomediastinal silhouette. Bones and soft tissues: Unremarkable. IMPRESSION IMPRESSION: 1. Diffuse interstitial opacities throughout both lungs, suggestive of edema. 2. More patchy regions of airspace opacification within the right mid and lower lung, which could be infectious/inflammatory. If warranted, consider chest CT for further assessment. 3. Small right pleural effusion. Transcribe Date/Time: Nov 15 2022 3:34P Dictated by: RESHMA CHINCHILLA MD This examination was interpreted and the report reviewed and electronically signed by: RESHMA CHINCHILLA MD on Nov 15 2022 3:57PM EST Thank you for allowing us to participate in the care of your patient. Should there be any questions regarding this interpretation, please call [phone]. If you are unable to reach us at the number above, please feel free to contact [facility] at [phone]. [facility] Study observation (narrative) [facility] XR Chest PA and LateralOrder ed By: [facility] Provider on 11-15-2022 [facility] COMPLIANCE DRUG SCREENon PDF . Normal [facility] Comment on above: Performed By: #### P T, PTT #### [facility] [address] [place] [address] [address] Bry Lauren Summary FINAL Normal [facility] Comment on above: Result Comment: ===== TOXASSURE COMP DRUG ANALYSIS,UR ===== Test Result Flag Units Drug Present and Declared for Prescription Verification 7-aminoclonazepam 492 EXPECTED ng/mg creat 7-aminoclonazepam is an expected metabolite of clonazepam. Source of clonazepam is a scheduled prescription medication. Hydrocodone 256 EXPECTED ng/mg creat Hydromorphone 215 EXPECTED ng/mg creat Dihydrocodeine 108 EXPECTED ng/mg creat Norhydrocodone 1116 EXPECTED ng/mg creat Sources of hydrocodone include scheduled prescription medications. Hydromorphone, dihydrocodeine and norhydrocodone are expected metabolites of hydrocodone. Hydromorphone and dihydrocodeine are also available as scheduled prescription medications. Hydromorphone is also a minor metabolite of morphine which is present in this specimen. Duloxetine PRESENT EXPECTED Acetaminophen PRESENT EXPECTED Drug Present not Declared for Prescription Verification Codeine 6910 UNEXPECTED ng/mg creat Morphine 165 UNEXPECTED ng/mg creat Normorphine 243 UNEXPECTED ng/mg creat Norcodeine 151 UNEXPECTED ng/mg creat Sources of codeine include scheduled prescription medications; morphine is an expected metabolite of codeine. Other sources of morphine include scheduled prescription medications or as a metabolite of heroin. Normorphine is an expected metabolite of morphine. Norcodeine is an expected metabolite of codeine. Gabapentin PRESENT UNEXPECTED Baclofen PRESENT UNEXPECTED Ibuprofen PRESENT UNEXPECTED Ketoprofen PRESENT UNEXPECTED Guaifenesin PRESENT UNEXPECTED Guaifenesin may be administered as an [id number] or prescription drug; it may also be present as a breakdown product of methocarbamol. Metoprolol PRESENT UNEXPECTED ===== Test Result Flag Units Ref Range Creatinine 89 mg/dL >=20 ===== Declared Medications: The flagging and interpretation on this report are based on the following declared medications. Unexpected results may arise from inaccuracies in the declared medications. Note: The testing scope of this panel includes these medications: Clonazepam Duloxetine Duloxetine ([place]ymb[place]) Hydrocodone ([place]) Note: The testing scope of this panel does not include small to moderate amounts of these reported medications: Acetaminophen ([place]) ===== For clinical consultation, please call . ===== Performed By: #### P T, PTT #### [facility] [address] [place] [address] Dr. Bry Lauren CBC W MANUAL DIFFon 10-08-19 23 ATYPICAL LYMPH # Normal [facility] Comment on above: Performed By: #### P T, PTT #### [facility] [address] [place] [address] Dr. Bry Lauren ATYPICAL LYMPH % Normal [facility] Comment on above: Performed By: #### P T, PTT #### [facility] [address] [place] [address] Dr. Bry Lauren BAND # 0.2 103/ul Normal 0.0-0.3 [facility] Comment on above: Performed By: #### P T, PTT #### [facility] [address] [place] [address] Dr. Bry Lauren BAND % 2 % Normal 0-5 [facility] Comment on above: Performed By: #### P T, PTT #### [facility] [address] [place] [address] Dr. Bry Lauren BASOM # 0.00 103/ul Normal 0.00-0.10 [facility] Comment on above: Performed By: #### P T, PTT #### [facility] [address] [place] [address] Dr. Bry Lauren BASOM % 0.0 % Critically low 0.2-2.0 [facility] Comment on above: Performed By: #### P T, PTT #### [facility] [address] [place] [address] Dr. Bry Lauren BLAST # Normal [facility] Comment on above: Performed By: #### P T, PTT #### [facility] [address] [place] [address] Dr. Bry Lauren BLAST % Normal [facility] Comment on above: Performed By: #### P T, PTT #### [facility] [address] [place] [address] Dr. Bry Lauren CORRECTED WBC Normal 4.0-11.0 [facility] Comment on above: Performed By: #### P T, PTT #### [facility] [address] [place] [address] Dr. Bry Lauren EOS # 0.11 103/ul Normal 0.00-0.70 [facility] Comment on above: Performed By: #### P T, PTT #### [facility] [address] [place] [address] Dr. Bry Lauren EOS% 1.0 % Normal 0.9-7.0 [facility] Comment on above: Performed By: #### P T, PTT #### [facility] [address] [place] [address] Dr. Bry Lauren HCT 25.4 % Critically low 42.0-54.0 [facility] Comment on above: Performed By: #### P T, PTT #### [facility] [address] [place] [address] Dr. Bry Lauren HGB 8.7 g/dl Critically low 14.0-18.0 [facility] Comment on above: Performed By: #### P T, PTT #### [facility] [address] [address] [address] Bry Lauren LYMPHM # 0.32 103/ul Critically low 1.20-3.80 [facility] Comment on above: Performed By: #### P T, PTT #### [facility] [address] [place] [address] Dr. Bry Lauren LYMPHM% 3.0 % Critically low 20.5-60.0 [facility] Comment on above: Performed By: #### P T, PTT #### [facility] [address] [place] [address] Dr. Bry Lauren MCH 38.3 pg Critically high 25.9-34.0 [facility] Comment on above: Performed By: #### P T, PTT #### [facility] [address] [place] [address] Dr. Bry Lauren MCHC 34.3 g/dl Normal 29.9-35.2 [facility] Comment on above: Performed By: #### P T, PTT #### [facility] [address] [place] [address] Dr. Bry Lauren MCV 111.9 fL Critically high 80.0-94.0 [facility] Comment on above: Performed By: #### P T, PTT #### [facility] [address] [place] [address] Dr. Bry Lauren METAMYELOCYTE # Normal [facility] Comment on above: Performed By: #### P T, PTT #### [facility] [address] [place] [address] Dr. Bry Lauren METAMYELOCYTE % Normal [facility] Comment on above: Performed By: #### P T, PTT #### [facility] [address] [place] [address] Dr. Bry Lauren MONOM# 0.54 103/ul Normal 0.30-0.80 [facility] Comment on above: Performed By: #### P T, PTT #### [facility] [address] [place] [address] Dr. Bry Lauren MONOM% 5.0 % Normal 1.7-12.0 [facility] Comment on above: Performed By: #### P T, PTT #### [facility] [address] [place] [address] Dr. Bry Lauren MPV 10.0 fL Normal 9.5-13.5 [facility] Comment on above: Performed By: #### P T, PTT #### [facility] [address] [place] [address] Dr. Bry Lauren MYELOCYTE # Normal [facility] Comment on above: Performed By: #### P T, PTT #### [facility] [address] [place] [address] Dr. Bry Lauren MYELOCYTE % Normal [facility] Comment on above: Performed By: #### P T, PTT #### [facility] [address] [place] [address] Dr. Bry Lauren NRBC Normal [facility] Comment on above: Performed By: #### P T, PTT #### [facility] [address] [place] [address] Dr. Bry Lauren PLT 145 103/ul Critically low 150-450 [facility] Comment on above: Performed By: #### P T, PTT #### [facility] [address] [place] [address] Dr. Bry Lauren RBC 2.27 106/ul Critically low 4.70-6.10 [facility] Comment on above: Performed By: #### P T, PTT #### [facility] [address] [place] [address] Dr. Bry Lauren RDW 15.0 % Normal 11.0-15.0 [facility] Comment on above: Performed By: #### P T, PTT #### [facility] [address] [place] [address] Dr. Bry Lauren SEG # 9.52 103/ul Critically high 1.40-6.50 [facility] Comment on above: Performed By: #### P T, PTT #### [facility] [address] [place] [address] Dr. Bry Lauren SEG % 89.0 % Critically high 43.0-75.0 [facility] Comment on above: Performed By: #### P T, PTT #### [facility] [address] [place] [address] Dr. Bry Lauren WBC 10.7 103/ul Normal 4.0-11.0 [facility] Comment on above: Performed By: #### P T, PTT #### [facility] [address] [place] [address] Dr. Bry Lauren MAGNESIUMon 10-07-2022 Magnesium [Mass/Vol] 1.7 mg/dL Critically low 1.8-2.4 [facility] Comment on above: Performed By: #### P T, PTT #### [facility] [address] [place] [address] Dr. Bry Lauren PROF 14(COMP METB)on 023 Albumin [Mass/Vol] 2.4 g/dL Critically low 3.4-5.0 [facility] Comment on above: Performed By: #### P T, PTT #### [facility] [address] [place] [address] Dr. Bry Lauren Albumin/Globulin [Mass ratio] 0.5 {ratio} Normal [facility] Comment on above: Performed By: #### P T, PTT #### [facility] [address] [place] [address] Dr. Bry Lauren ALP [Catalytic activity/Vol] 58 U/L Normal 46-116 [facility] Comment on above: Performed By: #### P T, PTT #### [facility] [address] [place] [address] Dr. Bry Lauren ALT [Catalytic activity/Vol] 23 U/L Normal 16-63 [facility] Comment on above: Performed By: #### P T, PTT #### [facility] [address] [place] [address] Dr. Bry Lauren Anion gap [Moles/Vol] 10.3 mmol/L Normal [facility] Comment on above: Performed By: #### P T, PTT #### [facility] [address] [place] [address] Dr. Bry Lauren AST [Catalytic activity/Vol] 24 U/L Normal 15-37 [facility] Comment on above: Performed By: #### P T, PTT #### [facility] [address] [place] [address] Dr. Bry Lauren Bilirubin [Mass/Vol] 0.4 mg/dL Normal 0.2-1.0 [facility] Comment on above: Performed By: #### P T, PTT #### [facility] [address] [place] [address] Dr. Bry Lauren Calcium [Mass/Vol] 8.3 mg/dL Critically low 8.5-10.1 Th e [facility] Comment on above: Performed By: #### P T, PTT #### [facility] [address] [place] [address] Dr. Bry Lauren Chloride [Moles/Vol] 103 mmol/L Normal 98-107 [facility] Comment on above: Performed By: #### P T, PTT #### [facility] [address] [place] [address] Dr. Bry Lauren CO2 [Moles/Vol] 25.3 mmol/L Normal 21.0-32.0 [facility] Comment on above: Performed By: #### P T, PTT #### [facility] [address] [place] [address] Dr. Bry Lauren Creatinine [Mass/Vol] 0.87 mg/dL Normal 0.70-1.30 [facility] Comment on above: Performed By: #### P T, PTT #### [facility] [address] [place] [address] Dr. Bry Lauren EGFR-AF GUATEMALAN >60 Normal >=60 [facility] Comment on above: Performed By: #### P T, PTT #### [facility] [address] [place] [address] Dr. Bry Lauren EGFR-NON AF GUATEMALAN >60 Normal >=60 [facility] Comment on above: Performed By: #### P T, PTT #### [facility] [address] [place] [address] Dr. Bry Lauren Globulin (S) [Mass/Vol] 4.5 g/dL Normal [facility] Comment on above: Performed By: #### P T, PTT #### [facility] [address] [place] [address] Dr. Bry Lauren Glucose [Mass/Vol] 106 mg/dL Normal 74-106 [facility] Comment on above: Performed By: #### P T, PTT #### [facility] [address] [place] [address] Dr. Bry Lauren Potassium [Moles/Vol] 3.6 mmol/L Normal 3.5-5.1 [facility] Comment on above: Performed By: #### P T, PTT #### [facility] [address] [place] [address] Dr. Bry Lauren Protein [Mass/Vol] 6.9 g/dL Normal 6.4-8.2 [facility] Comment on above: Performed By: #### P T, PTT #### [facility] [address] [place] [address] Dr. Bry Lauren Sodium [Moles/Vol] 135 mmol/L Critically low 136-145 [facility] Comment on above: Performed By: #### P T, PTT #### [facility] [address] [place] [address] Dr. Bry Lauren Urea nitrogen [Mass/Vol] 23.0 mg/dL Critically high 7.0-18.0 [facility] Comment on above: Performed By: #### P T, PTT #### [facility] [address] [place] [address] Dr. Bry Lauren Urea nitrogen/Creatinine [Mass ratio] 26.4 mg/mg Normal [facility] Comment on above: Performed By: #### P T, PTT #### [facility] [address] [place] [address] Dr. Bry Lauren RESPIRATORY PANEL PLUSon Adenovirus Not detected Normal NOT DETECTED [facility] Comment on above: Performed By: #### R SPLUS #### [facility] [address] [place] [address] Dr. Bry Lauren B. Parapertusis Not detected Normal NOT DETECTED [facility] Comment on above: Performed By: #### R SPLUS #### [facility] [address] [place] [address] Dr. Bry Willett. Pertussis Not detected Normal NOT DETECTED [facility] Comment on above: Performed By: #### R SPLUS #### [facility] [address] [place] [address] Dr. Bry Lauren Chlamydia Pneumoniae Not detected Normal NOT DETECTED [facility] Comment on above: Performed By: #### R SPLUS #### [facility] [address] [place] [address] Dr. Bry Lauren Coronavirus 229E Not detected Normal NOT DETECTED [facility] Comment on above: Performed By: #### R SPLUS #### [facility] [address] [place] [address] Dr. Bry Lauren Coronavirus HKU1 Not detected Normal NOT DETECTED [facility] Comment on above: Performed By: #### R SPLUS #### [facility] [address] [place] [address] Dr. Bry Lauren Coronavirus NL63 Not detected Normal NOT DETECTED [facility] Comment on above: Performed By: #### R SPLUS #### [facility] [address] [place] [address] Dr. Bry Lauren Coronavirus OC43 Not detected Normal NOT DETECTED [facility] Comment on above: Performed By: #### R SPLUS #### [facility] [address] [place] [address] Dr. Bry Lauren Influenza A H1 Not detected Normal NOT DETECTED [facility] Comment on above: Performed By: #### R SPLUS #### [facility] [address] [place] [address] Dr. Bry Lauren Influenza A H1 2009 Not detected Normal NOT DETECTED [facility] Comment on above: Performed By: #### R SPLUS #### [facility] [address] [place] [address] Dr. Bry Lauren Influenza A H3 Not detected Normal NOT DETECTED [facility] Comment on above: Performed By: #### R SPLUS #### [facility] [address] [place] [address] Dr. Bry Lauren Influenza B Not detected Normal NOT DETECTED [facility] Comment on above: Performed By: #### R SPLUS #### [facility] [address] [place] [address] Dr. Bry Lauren Metapneumovirus Not detected Normal NOT DETECTED [facility] Comment on above: Performed By: #### R SPLUS #### [facility] [address] [place] [address] Dr. Bry Lauren Mycoplas. Pneumoniae Not detected Normal NOT DETECTED [facility] Comment on above: Performed By: #### R SPLUS #### [facility] [address] [place] [address] Dr. Bry Lauren Parainfluenza 1 Not detected Normal NOT DETECTED [facility] Comment on above: Performed By: #### R SPLUS #### [facility] [address] [place] [address] Dr. Bry Lauren Parainfluenza 2 Not detected Normal NOT DETECTED [facility] Comment on above: Performed By: #### R SPLUS #### [facility] [address] [place] [address] Dr. Bry Lauren Parainfluenza 3 Not detected Normal NOT DETECTED [facility] Comment on above: Performed By: #### R SPLUS #### [facility] [address] [place] [address] Dr. Bry Lauren Parainfluenza 4 Not detected Normal NOT DETECTED [facility] Comment on above: Performed By: #### R SPLUS #### [facility] [address] [place] [address] Dr. Bry Lauren Rhino/Enterovirus Not detected Normal NOT DETECTED [facility] Comment on above: Performed By: #### R SPLUS #### [facility] [address] [place] [address] Dr. Bry Lauren RP2 Header 1 RESPIRATORY PANEL: VIRUSES Normal [facility] Comment on above: Performed By: #### R SPLUS #### [facility] [address] [place] [address] Dr. Bry Lauren RP2 Header 2 RESPIRATORY PANEL: BACTERIA Normal [facility] Comment on above: Performed By: #### R SPLUS #### [facility] [address] [place] [address] Dr. Bry Lauren RSV Not detected Normal NOT DETECTED [facility] Comment on above: Performed By: #### R SPLUS #### [facility] [address] [place] [address] Dr. Bry Lauren SARS-CoV-2 (COVID-19) RNA ELLE+probe Ql (Unsp spec) Not detected Normal NOT DETECTED [facility] Comment on above: Performed By: #### R SPLUS #### [facility] [address] [place] [address] Dr. Bry Lauren T3, TOTAL (TRIIODOTHYRONINE) on 10-07-2022 T3, TOTAL 119 ng/dL Normal 71-180 [facility] Comment on above: Performed By: #### P T, PTT #### [facility] [address] [place] [address] Dr. Bry Lauren BNPon 10-06-2022 Natriuretic peptide B (Bld) [Mass/Vol] 410.0 pg/mL Normal <=1,800.0 [facility] Comment on above: Performed By: #### C MP, CMADM, HSTROPN, BNP #### [facility] [address] [place] [address] Dr. Bry Lauren CARDIAC JIMI ADMITon 023 CK [Catalytic activity/Vol] 104 U/L Normal 39-308 [facility] Comment on above: Performed By: #### C MP, CMADM, HSTROPN, BNP #### [facility] [address] [place] [address] Dr. Bry Lauren CK.MB [Mass/Vol] 0.58 ng/mL Normal <=3.60 [facility] Comment on above: Performed By: #### C MP, CMADM, HSTROPN, BNP #### [facility] [address] [place] [address] Dr. Bry Lauren JACQUELINE 118 ng/mL Critically high 16-96 [facility] Comment on above: Performed By: #### C MP, CMADM, HSTROPN, BNP #### [facility] [address] [place] [address] Dr. Bry Lauren CBC AUTO DIFFon 10-06-2022 BASO # 0.0 103/ul Normal 0.0-0.1 [facility] Comment on above: Performed By: #### C BC #### [facility] [address] [place] [address] Dr. Bry Lauren Basophils/100 WBC (Bld) 0.1 % Critically low 0.2-2.0 [facility] Comment on above: Performed By: #### C BC #### [facility] [address] [place] [address] Dr. Bry Lauren EO # 0.0 103/ul Normal 0.0-0.7 [facility] Comment on above: Performed By: #### C BC #### [facility] [address] [place] [address] Dr. Bry Lauren Eosinophils/100 WBC (Bld) 0.1 % Critically low 0.9-7.0 [facility] Comment on above: Performed By: #### C BC #### [facility] [address] [place] [address] Dr. Bry Lauren Erythrocyte distribution width (RBC) [Ratio] 14.9 % Normal 11.0-15.0 [facility] Comment on above: Performed By: #### C BC #### [facility] [address] [place] [address] Dr. Bry Lauren Hematocrit (Bld) [Volume fraction] 30.9 % Critically low 42.0-54.0 [facility] Comment on above: Performed By: #### C BC #### [facility] [address] [place] [address] Dr. Bry Lauren Hemoglobin (Bld) [Mass/Vol] 10.8 g/dL Critically low 14.0-18.0 [facility] Comment on above: Performed By: #### C BC #### [facility] [address] [place] [address] Dr. Bry Lauren IG # 0.04 10e3/ul Critically high 0.00-0.03 [facility] Comment on above: Performed By: #### C BC #### [facility] [address] [place] [address] Dr. Bry Lauren IG % 0.4 % Normal 0.0-0.5 [facility] Comment on above: Performed By: #### C BC #### [facility] [address] [place] [address] Dr. Bry Lauren LYMPH # 0.5 103/ul Critically low 1.2-3.8 [facility] Comment on above: Performed By: #### C BC #### [facility] [address] [place] [address] Dr. Bry Lauren Lymphocytes/100 WBC (Bld) 5.0 % Critically low 20.5-60.0 [facility] Comment on above: Performed By: #### C BC #### [facility] [address] [place] [address] Dr. Bry Lauren MANUAL DIFF REQ NO Normal [facility] Comment on above: Performed By: #### C BC #### [facility] [address] [place] [address] Dr. Bry Lauren MCH (RBC) [Entitic mass] 38.0 pg Critically high 25.9-34.0 [facility] Comment on above: Performed By: #### C BC #### [facility] [address] [place] [address] Dr. Bry Lauren MCHC (RBC) [Mass/Vol] 35.0 g/dL Normal 29.9-35.2 [facility] Comment on above: Performed By: #### C BC #### [facility] [address] [place] [address] Dr. Bry Lauren MCV (RBC) [Entitic vol] 108.8 fL Critically high 80.0-94.0 [facility] Comment on above: Performed By: #### C BC #### [facility] [address] [place] [address] Dr. Bry Lauren MONO # 0.6 103/ul Normal 0.3-0.8 [facility] Comment on above: Performed By: #### C BC #### [facility] [address] [place] [address] Dr. Bry Lauren Monocytes/100 WBC (Bld) 6.6 % Normal 1.7-12.0 [facility] Comment on above: Performed By: #### C BC #### [facility] [address] [place] [address] Dr. Bry Lauren NEUT # 8.4 103/ul Critically high 1.4-6.5 [facility] Comment on above: Performed By: #### C BC #### [facility] [address] [place] [address] Dr. Bry Lauren Neutrophils/100 WBC (Bld) 87.8 % Critically high 43.0-75.0 [facility] Comment on above: Performed By: #### C BC #### [facility] [address] [place] [address] Dr. Bry Lauren Platelet mean volume (Bld) [Entitic vol] 9.8 fL Normal 9.5-13.5 [facility] Comment on above: Performed By: #### C BC #### [facility] [address] [place] [address] Dr. Bry Lauren PLT 185 103/ul Normal 150-450 [facility] Comment on above: Performed By: #### C BC #### [facility] [address] [place] [address] Dr. Bry Lauren RBC 2.84 106/ul Critically low 4.70-6.10 [facility] Comment on above: Performed By: #### C BC #### [facility] [address] [place] [address] Dr. Bry Lauren WBC 9.5 103/ul Normal 4.0-11.0 [facility] Comment on above: Performed By: #### C BC #### [facility] [address] [place] [address] CSPINE WO CONon 3 CT CSPINE WO CON EXAMINATION: CT CSPI NE WO CON HISTORY: UNSPECIFIED INJURY OF HEAD, INITIAL ENCOUNTER , fall, confusion, fever COMPARISON: No relevant comparison available. TECHNIQUE: Axial, Coronal, and Sagittal images were created without IV contrast. Dose reduction techniques were achieved by using automated exposure control and/or adjustment of mA and/or kV according to patient size and/or use of iterative reconstruction technique. FINDINGS: VERTEBRAL BODIES: No fracture, spondylolisthesis, bone lesion. FACET JOINTS: No disruption or abnormal widening. Multilevel mild degenerative facet arthropathy. CERVICAL DISCS: Mild disc space narrowing C4-C5, C5-C6. Moderate narrowing C6-C7. Uncovertebral joint spurring and mild degenerative facet arthropathy encroaching on the neural foramen bilaterally. CENTRAL CANAL: No spinal stenosis or evidence of hemorrhage. PARASPINAL AREA: Irregular opacity within right lung apex; pleural scarring versus infiltrates. IMPRESSION: 1. Mild to moderate degenerative changes of the cervical spine. No acute abnormality. 2. Mild infiltrates versus chronic pleural scarring within right lung apex. Correlate for pulmonary symptoms. Electronically authenticated by: ARPIT DIEZ Date: 2022-10-06 11:26 Normal [facility] CT HEAD WO CONon 10-06-2022 CT HEAD WO CON EXAMINATION: CT HEAD WO CON HISTORY: UNSPECIFIED INJURY OF HEAD, INITIAL ENCOUNTER ; fall, confusion, fever COMPARISON: No relevant comparison available. TECHNIQUE: Axial CT images were obtained without IV contrast. Dose reduction techniques were achieved by using automated exposure control and/or adjustment of mA and/or kV according to patient size and/or use of iterative reconstruction technique. FINDINGS: BRAIN: No edema, hemorrhage, mass, acute infarction, or inappropriate atrophy. CSF SPACES: No hydrocephalus, subarachnoid hemorrhage, or mass. Appropriate for age. SKULL: No fracture, mass, or other significant visible lesion. SINUSES: Mild mucosal thickening within the paranasal sinuses. ORBITS: No appreciable abnormality on the limited views. OTHER: Negative IMPRESSION: 1. 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 No acute abnormality. 2. Mild chronic sinusitis. Electronically authenticated by: ARPIT DIEZ Date: 2022-10-06 11:20 Normal [facility] CULTURE BLOODon 10-06-2022 Microscopic examination of blood, culture Culture Observations: NO GROWTH AT 5 DAYS. Normal [facility] Comment on above: Performed By: #### P T, PTT #### [facility] [address] [place] [address] Dr. Bry Lauren Microscopic examination of blood, culture Culture Observations: NO GROWTH AT 5 DAYS. Normal [facility] Comment on above: Performed By: #### P T, PTT #### [facility] [address] [place] [address] Dr. Bry Lauren [facility] SARS-CoV-2 (COVID-19) RNA ELLE+probe Ql (Unsp spec) Not detected Normal NOT DETECTED [facility] Comment on above: Result Comment: When diagnostic testing is negative, the possibility of a false negative should be considered in the context of a patient's recent exposures and the presence of clinical signs and symptoms consistent with SARS-CoV-2. This test is not yet approved or cleared by the [place] FDA. When there are no FDA-approved or cleared tests available, and other criteria are met, FDA can make tests available under an emergency access mechanism called an Emergency Use Authorization (EUA). The EUA for this test is supported by the [place] of Health and Human Service's declaration that circumstances exist to justify the emergency use of in vitro diagnostics for the detection and/or diagnosis of the virus that causes COVID-19. This EUA will remain in effect for the duration of the COVID-19 declaration justifying emergency of IVDs, unless it is terminated or revoked by the FDA (after which the test may no longer be used). Performed By: #### C VDTBH #### [facility] [address] [place] [address] Dr. Bry Lauren DRUG SCREEN RAPID (URINE)on 10-06-2022 AMP Negative Normal NEGATIVE [facility] Comment on above: Performed By: #### P T, PTT #### [facility] [address] [place] [address] Dr. Bry Lauren BAR Negative Normal NEGATIVE [facility] Comment on above: Performed By: #### P T, PTT #### [facility] [address] [place] [address] Dr. Bry Lauren BUP Negative Normal NEGATIVE [facility] Comment on above: Performed By: #### P T, PTT #### [facility] [address] [place] [address] Dr. Bry Lauren BZO Negative Normal NEGATIVE [facility] Comment on above: Performed By: #### P T, PTT #### [facility] [address] [place] [address] Dr. Bry Lauren LENI Negative Normal NEGATIVE [facility] Comment on above: Performed By: #### P T, PTT #### [facility] [address] [place] [address] Dr. Bry Lauren CUT-OFFS SEE BELOW Normal [facility] Comment on above: Result Comment: AMP (Amphetamine): 500ng/mL, BAR (Barbituates): 200 ng/mL, BZO (Benzodiazepines): 150 ng/mL, BUP (Buprenorphine): 10 ng/mL, LENI (Cocaine): 150 ng/mL, mAMP (Methamphetamine): 500 ng/mL, MTD (Methadone): 200 ng/mL, OPI (Opiates): 100 ng/mL, OXY (Oxycodone): 100 ng/mL, PCP (Phencyclidine): 25 ng/mL, PPX (Propoxyphene): 300 ng/mL, THC (Cannabinoids): 50 ng/mL, TCA (Trycyclic Antidepressants): 300 ng/mL Performed By: #### P T, PTT #### [facility] [address] [place] [address] Dr. Bry Lauren DRUG CUT HEADER DRUG CLASS TEST SYST EM CUT-OFF CONCENTRATIONS ARE FOLLOWS: Normal [facility] Comment on above: Performed By: #### P T, PTT #### [facility] [address] [place] [address] Dr. Bry Lauren mAMP Negative Normal NEGATIVE [facility] Comment on above: Performed By: #### P T, PTT #### [facility] [address] [place] [address] Dr. Bry Lauren MTD Negative Normal NEGATIVE [facility] Comment on above: Performed By: #### P T, PTT #### [facility] [address] [place] [address] Dr. Bry Lauren OPI Positive Abnormal NEGATIVE [facility] Comment on above: Performed By: #### P T, PTT #### [facility] [address] [place] [address] Dr. Bry Lauren OXY Negative Normal NEGATIVE [facility] Comment on above: Performed By: #### P T, PTT #### [facility] [address] [place] [address] Dr. Bry Lauren PCP Negative Normal NEGATIVE [facility] Comment on above: Performed By: #### P T, PTT #### [facility] [address] [place] [address] Dr. Bry Laruen PPX Negative Normal NEGATIVE [facility] Comment on above: Performed By: #### P T, PTT #### [facility] [address] [place] [address] Dr. Bry Lauren TCA Negative Normal NEGATIVE [facility] Comment on above: Performed By: #### P T, PTT #### [facility] [address] [place] [address] Dr. Bry Lauren THC Negative Normal NEGATIVE [facility] Comment on above: Performed By: #### P T, PTT #### [facility] [address] [place] [address] Dr. Bry Lauren ER URINE PROFILEon 3 Bilirubin Ql (U) Negative Normal NEGATIVE [facility] Comment on above: Performed By: #### P T, PTT #### [facility] [address] [place] [address] Dr. Bry Lauren Clarity (U) CLEAR Normal CLEAR [facility] Comment on above: Performed By: #### P T, PTT #### [facility] [address] [place] [address] Dr. Bry Lauren Color (U) LT. YELLOW Normal YELLOW [facility] Comment on above: Performed By: #### P T, PTT #### [facility] [address] [place] [address] Dr. Bry Lauren ERUHARSHIL A micrscopic examina tion will be performed if indicated. Normal [facility] Comment on above: Performed By: #### P T, PTT #### [facility] [address] [place] [address] Dr. Bry Lauren Glucose Ql (U) Negative Normal NEGATIVE [facility] Comment on above: Performed By: #### P T, PTT #### [facility] [address] [place] [address] Dr. Bry Lauren Hemoglobin Ql (U) TRACE-INTACT Abnormal NEGATIVE [facility] Comment on above: Performed By: #### P T, PTT #### [facility] [address] [place] [address] Dr. Bry Lauren Ketones Ql (U) Negative Normal NEGATIVE [facility] Comment on above: Performed By: #### P T, PTT #### [facility] [address] [place] [address] Dr. Bry Lauren LEUKOCYTES Negative Normal NEGATIVE [facility] Comment on above: Performed By: #### P T, PTT #### [facility] [address] [place] [address] Dr. Bry Lauren Nitrite Ql (U) Negative Normal NEGATIVE [facility] Comment on above: Performed By: #### P T, PTT #### [facility] [address] [place] [address] Dr. Bry Lauren pH (U) 6.0 [pH] Normal 5-9 [facility] Comment on above: Performed By: #### P T, PTT #### [facility] [address] [place] [address] Dr. Bry Lauren Protein (U) [Mass/Vol] 30 mg/dL Abnormal NEGAT IRMA/ TRACE [facility] Comment on above: Performed By: #### P T, PTT #### [facility] [address] [place] [address] Dr. Bry Lauren SPEC GRAVITY 1.020 Normal 1.005-<=1.0 25 [facility] Comment on above: Performed By: #### P T, PTT #### [facility] [address] [place] [address] Dr. Bry Lauren UR MICRO IND INDICATED Normal [facility] Comment on above: Performed By: #### P T, PTT #### [facility] [address] [place] [address] Dr. Bry Lauren Urobilinogen Qn (U) 0.2 {Ingrid'U}/dL Normal 0.2 - 1. 0 [facility] Comment on above: Performed By: #### P T, PTT #### [facility] Laboratory [address] [place] [address] Dr. Bry Lauren INFLUENZA A AND B AGon 10-06 INFLUANEGH SEE BELOW Normal [facility] Comment on above: Result Comment: Nega tive for Flu A protein angiten. Infection due to Flu A cannot be ruled out. Flu A angiten in the sample may be below the detection limit of the test. Performed By: #### P T, PTT #### [facility] Laboratory [address] [place] [address] Dr. Bry Lauren INFLUBNEGH SEE BELOW Normal [facility] Comment on above: Result Comment: Nega tive for Flu B protein antigen. Infection due to Flu B cannot be ruled out. Flu B antigen in the sample may be below the detection limit of the test. Performed By: #### P T, PTT #### [facility] [address] [place] [address] Dr. Bry Lauren INFLUENZA A AG Negative Normal NEGATIVE SEE COMMENT [facility] Comment on above: Performed By: #### P T, PTT #### [facility] [address] [place] [address] Dr. Bry Lauren INFLUENZA B AG Negative Normal NEGATIVE SEE COMMENT [facility] Comment on above: Performed By: #### P T, PTT #### [facility] [address] [place] [address] Dr. Bry Lauren LACTATE/LACTIC ACIDon 2022 Lactate [Moles/Vol] 0.9 mmol/L Normal 0.4-2.0 [facility] Comment on above: Performed By: #### P T, PTT #### [facility] [address] [place] [address] Dr. Bry Lauren Lactate [Moles/Vol] 1.5 mmol/L Normal 0.4-2.0 [facility] Comment on above: Performed By: #### P T, PTT #### [facility] [address] [place] [address] Dr. Bry Lauren MAGNESIUMon 10-06-2022 Magnesium [Mass/Vol] 1.5 mg/dL Critically low 1.8-2.4 [facility] Comment on above: Performed By: #### P T, PTT #### [facility] [address] [place] [address] Dr. Bry Lauren PROF 14(COMP METB)on 023 Albumin [Mass/Vol] 3.5 g/dL Normal 3.4-5.0 [facility] Comment on above: Performed By: #### C MP, CMADM, HSTROPN, BNP #### [facility] [address] [place] [address] Dr. Bry Lauren Albumin/Globulin [Mass ratio] 0.6 {ratio} Normal [facility] Comment on above: Performed By: #### C MP, CMADM, HSTROPN, BNP #### [facility] [address] [place] [address] Dr. Bry Lauren ALP [Catalytic activity/Vol] 72 U/L Normal 46-116 [facility] Comment on above: Performed By: #### C MP, CMADM, HSTROPN, BNP #### [facility] [address] [place] [address] Dr. Bry Lauren ALT [Catalytic activity/Vol] 27 U/L Normal 16-63 [facility] Comment on above: Performed By: #### C MP, CMADM, HSTROPN, BNP #### [facility] [address] [place] [address] Dr. Bry Lauren Anion gap [Moles/Vol] 9.6 mmol/L Normal [facility] Comment on above: Performed By: #### C MP, CMADM, HSTROPN, BNP #### [facility] [address] [place] [address] Dr. Bry aLuren AST [Catalytic activity/Vol] 23 U/L Normal 15-37 [facility] Comment on above: Performed By: #### C MP, CMADM, HSTROPN, BNP #### [facility] [address] [address] [address] Bry Lauren Bilirubin [Mass/Vol] 0.7 mg/dL Normal 0.2-1.0 [facility] Comment on above: Performed By: #### C MP, CMADM, HSTROPN, BNP #### [facility] [address] [address] [address] Bry Lauren Calcium [Mass/Vol] 9.2 mg/dL Normal 8.5-10.1 [facility] Comment on above: Performed By: #### C MP, CMADM, HSTROPN, BNP #### [facility] [address] [place] [address] Dr. Bry Lauren Chloride [Moles/Vol] 99 mmol/L Normal 98-107 [facility] Comment on above: Performed By: #### C MP, CMADM, HSTROPN, BNP #### [facility] [address] [address] [address] Bry Lauren CO2 [Moles/Vol] 29.2 mmol/L Normal 21.0-32.0 [facility] Comment on above: Performed By: #### C MP, CMADM, HSTROPN, BNP #### [facility] [address] [place] [address] Dr. Bry Lauren Creatinine [Mass/Vol] 1.07 mg/dL Normal 0.70-1.30 [facility] Comment on above: Performed By: #### C MP, CMADM, HSTROPN, BNP #### [facility] [address] [place] [address] Dr. Bry Lauren EGFR-AF GUATEMALAN >60 Normal >=60 [facility] Comment on above: Performed By: #### C MP, CMADM, HSTROPN, BNP #### [facility] [address] [place] [address] Dr. Bry Lauren EGFR-NON AF GUATEMALAN >60 Normal >=60 [facility] Comment on above: Performed By: #### C MP, CMADM, HSTROPN, BNP #### [facility] [address] [address] [address] Bry Lauren Globulin (S) [Mass/Vol] 5.4 g/dL Normal [facility] Comment on above: Performed By: #### C MP, CMADM, HSTROPN, BNP #### [facility] [address] [address] [address] Bry Lauren Glucose [Mass/Vol] 105 mg/dL Normal 74-106 [facility] Comment on above: Performed By: #### C MP, CMADM, HSTROPN, BNP #### [facility] [address] [address] [address] Bry Lauren Potassium [Moles/Vol] 3.8 mmol/L Normal 3.5-5.1 [facility] Comment on above: Performed By: #### C MP, CMADM, HSTROPN, BNP #### [facility] [address] [address] [address] Bry Lauren Protein [Mass/Vol] 8.9 g/dL Critically high 6.4-8.2 [facility] Comment on above: Performed By: #### C MP, CMADM, HSTROPN, BNP #### [facility] [address] [place] [address] Dr. Bry Lauren Sodium [Moles/Vol] 134 mmol/L Critically low 136-145 [facility] Comment on above: Performed By: #### C MP, CMADM, HSTROPN, BNP #### [facility] [address] [place] [address] Dr. Bry Lauren Urea nitrogen [Mass/Vol] 21.0 mg/dL Critically high 7.0-18.0 [facility] Comment on above: Performed By: #### C MP, CMADM, HSTROPN, BNP #### [facility] [address] [place] [address] Dr. Bry Lauren Urea nitrogen/Creatinine [Mass ratio] 19.6 mg/mg [facility] Comment on above: Performed By: #### C MP, CMADM, HSTROPN, BNP #### [facility] [address] [place] [address] Dr. Bry Lauren PROTIMEon 10-06-2022 INR Coag (PPP) [Relative time] 1.04 {INR} Normal [facility] Comment on above: Performed By: #### P T, PTT #### [facility] [address] [place] [address] Dr. Bry Lauren INR GUIDELINES SEE BELOW Normal [facility] Comment on above: Result Comment: MAYANK RED INR: 2.0 - 3.0 CONDITIONS NOT LISTED BELOW 2.5 - 3.5 FOR PROSTHETIC HEART VALVE REPLACEMENT 2.5 - 3.5 RECURRENT THROMBOSIS Performed By: #### P T, PTT #### [facility] [address] [place] [address] Dr. Bry Lauren PT Coag (PPP) [Time] 11.0 s Normal 9.0-11.6 [facility] Comment on above: Performed By: #### P T, PTT #### [facility] [address] [place] [address] Dr. Bry Lauren PTTon 10-06-2022 aPTT Coag (Bld) [Time] 24.6 s Normal 22.3-36.2 e [facility] Comment on above: Performed By: #### P T, PTT #### [facility] [address] [place] [address] Dr. Bry Lauren T4on 10-06-2022 T4 [Mass/Vol] 8.30 ug/dL Normal 4.50-12.10 [facility] Comment on above: Performed By: #### M G, T4, TSH #### [facility] [address] [place] [address] Dr. Bry Lauren TROPONIN, HIGH SENSITIVITYon 10-06-2022 HSTROP 11.1 pg/mL Normal 4.0-76.1 [facility] Comment on above: Result Comment: CUT- OFF POINTS HAVE BEEN ESTABLISHED BASED ON THE FOURTH UNIVERSAL DEFINITIONS OF MYOCARDIAL INFARCTION. THE UPPER REFERENCE LIMIT (URL) OF TROPONIN, DEFINED THE 99TH PERCENTILE OF cTnI DISTRIBUTION IN A REFERENCE POPULATION, HAS BEEN CONFIRMED THE DECISION THRESHOLD FOR IN DIAGNOSIS. Performed By: #### C MP, CMADM, HSTROPN, BNP #### [facility] [address] [place] [address] Dr. Bry Lauren TSHon 10-06-2022 TSH 1.168 uIU/mL Normal 0.358-3.740 [facility] Comment on above: Performed By: #### P T, PTT #### [facility] [address] [place] [address] Dr. Bry Lauren URINE MICROSCOPIC ONLYon BACTERIA NONE SEEN Normal NONE SEEN [facility] Comment on above: Performed By: #### P T, PTT #### [facility] [address] [place] [address] Dr. Bry Lauren Bacteria identified Cx Nom (U) NOT INDICATED Normal [facility] Comment on above: Performed By: #### P T, PTT #### [facility] [address] [place] [address] Dr. Bry Lauren CAST NONE SEEN Normal NONE SEEN [facility] Comment on above: Performed By: #### P T, PTT #### [facility] [address] [place] [address] Dr. Bry Lauren Crystals LM Nom (Urine sed) NONE SEEN Normal NONE SEEN [facility] Comment on above: Performed By: #### P T, PTT #### [facility] [address] [place] [address] Dr. Bry Lauren Epithelial cells LM Ql (Urine sed) FEW Abnormal NONE SEEN /RARE [facility] Comment on above: Performed By: #### P T, PTT #### [facility] [address] [place] [address] Dr. Bry Lauren MUCOUS NONE SEEN Normal NONE SEEN [facility] Comment on above: Performed By: #### P T, PTT #### [facility] [address] [place] [address] Dr. Bry Lauren RBC 2-5 Abnormal 0-2 [facility] Comment on above: Performed By: #### P T, PTT #### [facility] [address] [place] [address] Dr. Bry Lauren WBC NONE SEEN Normal NONE SEEN [facility] Comment on above: Performed By: #### P T, PTT #### [facility] [address] [address] [address] Bry Lauren XR CHEST 1 Von 10-06-2022 XR CHEST 1 V EXAMINATION: XR CHES T 1 V HISTORY: SHORTNESS OF BREATH COMPARISON: XR chest 07/11/2021 FINDINGS: LUNGS: Stable elevated right hemidiaphragm. No acute infiltrates or appreciable mass. VASCULATURE: No increased pulmonary vasculature. PLEURA: No pneumothorax, effusion, or pleural thickening. CARDIAC: No cardiomegaly or cardiac silhouette abnormality. MEDIASTINUM: No visible mass or adenopathy. BONES: No fracture or visible bone lesion. OTHER: Port-A-Cath projects over right chest. IMPRESSION: 1. No acute cardiopulmonary process. Electronically authenticated by: ARPIT DIEZ Date: 2022-10-06 10:39 Normal [facility] ECHOCARDIO M/2D COMPLETEon 0 10-04-2022 ECHOCARDIO M/2D COMPLETE Patient: RAGHAVENDRA HEARD Exam Date: 10/04/2022 : 1945 Gender:M Ordering : [facility] Admission #: [id number] Family : DR PRERNA GRISSOM M.D. Order #: [id number] CLICK HERE TO VIEW EXAM ECHOCARDIOGRAM REPORT PROCEDURE: CARDIO PULMONARY ECHOCARDIO M/2D COMP INDICATIONS: HERRERA, CAD, HTN, Lung CA, S/P Radiation AND Chemotherapy 08/14/2022, H/O Stent COMPARISON: None. DESCRIPTION: COMPLETE ECHOCARDIOGRAM Real-time transthoracic echocardiography with 2D, M-mode, spectral and color flow Doppler performed. QUALITY: Technical quality was adequate. 69 168# 140/90 HR 79 LEFT VENTRICLE: Normal chamber size. Mild concentric left ventricular hypertrophy. Global left ventricular systolic function is normal. LV EF: Visual estimation of left ventricular ejection fraction is 60-65%. DIASTOLIC: Normal diastolic function. ATRIAL SEPTUM: LEFT ATRIUM: Normal chamber size. RIGHT ATRIUM: Mild dilatation. RIGHT VENTRICLE: Mild dilatation. Normal right ventricular systolic function. TRICUSPID VALVE: Normal mobility and thickness. No stenosis with mild regurgitation. Mild pulmonary hypertension. RVSP 38 mmHg MITRAL VALVE: Normal mobility and thickness. No evidence of mitral valve stenosis. Trivial mitral regurgitation. AORTIC VALVE: Normal trileaflet appearance. Mildly calcified aortic valve. No evidence of aortic valve stenosis. Trivial aortic regurgitation. AORTIC ROOT: Normal diameter and appearance. PULMONIC VALVE: Normal thickness and mobility. No stenosis. Trivial regurgitation. PERICARDIUM: No evidence of pericardial effusion. IVC: IVC is normal in size. < 50% collapse with inspiration. PLEURA: CONCLUSION: 1. Mild concentric left ventricular hypertrophy. Normal left ventricular systolic function. LVEF is 60 to 65%. 2. Normal diastolic function. 3. Mildly dilated right ventricle with normal systolic function. 4. Mild tricuspid regurgitation. 5. Mildly elevated right-sided pressures. Adult Echocardiography Procedure Report Left Ventricle Left Atrium Mitral Valve Right Ventricle Aorta Aortic Valve AoV Area (Peak Aiden): 2.91 cm2, 2.91 cm2 Peak Velocity(Antegrade Flow): 1.55 m/s Peak Gradient(Antegrade Flow): 9.64 mm[Hg] Tricuspid Valve Peak Velocity (Regurgitant Flow): 2.73 m/s Peak Velocity: 0.71 m/s Pulmonic Valve Peak Velocity: 0.81 m/s Right Atrium Dictated by: Leo Toledo M.D. on 10/05/2022 at 18:26 Approved by: Leo Toledo M.D. on 10/05/2022 at 18:29 Normal [facility] Activated partial thrombopla stin time (aPTT) in platelet poor plasma by coagulation aOrdered By: Alberto Chappell on 10-02-2022 aPTT Coag (PPP) [Time] 30.8 s 25.1-36.5 [facility] B-Type Natriuretic Peptideon 10-02-2022 Natriuretic peptide B (Bld) [Mass/Vol] 110.0 pg/mL High 5-100 [facility] Comment on above: Result Comment: PERF ORMED BY: [facility] [address] [place] [address] PATHOLOGIST [facility] PREET MUNOZ M.D. Performed By: #### M G, BMP, PT, HS TROP, BNP, PTT, CK ####[facility] [place] [address] [facility] Basic Metabolic Panelon 04-0 Anion gap [Moles/Vol] 6.5 mmol/L Normal 6.0-15.0 [facility] Comment on above: Performed By: #### M G, BMP, PT, HS TROP, BNP, PTT, CK ####[address] Calcium [Mass/Vol] 8.4 mg/dL Low 8.6-10.3 [facility] Comment on above: Performed By: #### M G, BMP, PT, HS TROP, BNP, PTT, CK ####[place] [id number] [facility] Chloride [Moles/Vol] 111 mmol/L High 98-107 [facility] Comment on above: Performed By: #### M G, BMP, PT, HS TROP, BNP, PTT, CK ####[address] CO2 [Moles/Vol] 25.5 mmol/L Normal 21.0-31.0 [facility] Comment on above: Performed By: #### M G, BMP, PT, HS TROP, BNP, PTT, CK ####[place] [id number] [facility] Creatinine [Mass/Vol] 0.79 mg/dL Normal 0.70-1.30 [facility] Comment on above: Performed By: #### M G, BMP, PT, HS TROP, BNP, PTT, CK ####[place] [id number] [facility] Creatinine Clr Calc Pharmacy 77.19 [facility] Comment on above: Performed By: #### M G, BMP, PT, HS TROP, BNP, PTT, CK ####[place] [id number] [facility] GFR/1.73 sq M.predicted MDRD (S/P/Bld) [Vol rate/Area] mL/min/{1.73_m2} [facility] Comment on above: Performed By: #### M G, BMP, PT, HS TROP, BNP, PTT, CK ####[address] Glucose [Mass/Vol] 89 mg/dL Normal 70-100 [facility] Comment on above: Result Comment: [facility] Glucose Reference Range is dependent on time and content of last meal. Glucose of more than 200 mg/dL in a nonstressed, ambulatory subject supports the diagnosis of Diabetes Mellitus. ADA recommended reference range Performed By: #### M G, BMP, PT, HS TROP, BNP, PTT, CK ####[place] [id number] Potassium [Moles/Vol] 4.0 mmol/L Normal 3.5-5.1 [facility] Comment on above: Performed By: #### M G, BMP, PT, HS TROP, BNP, PTT, CK ####[place] [id number] Sodium [Moles/Vol] 139 mmol/L Normal 136-145 [facility] Comment on above: Performed By: #### M G, BMP, PT, HS TROP, BNP, PTT, CK ####[place] [id number] Urea nitrogen [Mass/Vol] 26 mg/dL High 7-25 [facility] Comment on above: Performed By: #### M G, BMP, PT, HS TROP, BNP, PTT, CK ####[place] [id number] Basophils Auto (Bld) [#/Vol] Ordered By: Alberto Chappell on 10-02-2022 Basophils (Bld) [#/Vol] 0.0 10*3/uL 0.0-0.2 [facility] Basophils/100 WBC Auto (Bld) Ordered By: Alberto Chappell on 10-02-2022 Basophils/100 WBC (Bld) 0.5 % . [facility] Bilirubin Test strip Ql (U)O rdered By: Alberto Chappell on 10-02-2022 Bilirubin Ql (U) Negative Negative [facility] CT head/brain wo conon 10-02 CT head/brain wo con [facility] [address] [place] [address] [place] [address] CT Scan Report Signed Patient: Raghavendra Heard MR#: [id number] 8 : 1945 Acct:[id number] Age/Sex: 77 / M ADM Date: 10/02/22 Loc: ER Room: Type: [facility] ER Attending Dr: Copies to: Alberto Chappell PA-C Ordering Provider: Alberto Chappell PA-C Date of Service: 10/02/22 CT/CT head/brain wo con: weakness Unenhanced head CT TECHNIQUE: Contiguous axial imaging of the head. The CT exam was performed using one or more the following dose reduction techniques: Automated exposure control, adjustment of the MA and/or Kv according to patient size, or use of the iterative reconstruction technique. COMPARISON:None HISTORY:Weakness. Dizziness. History of lung cancer VENTRICLES: Within normal limits ATROPHY: Mild generalized atrophy BRAIN PARENCHYMA: Decreased density of the white matter is most consistent with chronic small vessel disease. HEMORRHAGE: None HERNIATION:No mass effect or herniation INFARCTION: No recent vascular distribution infarction is seen. EXTRA-AXIAL FLUID COLLECTIONS None MIDBRAIN:Unremarkable MARIA E:Unremarkable MEDULLA:Unremarkable SINUSES:Unremarkable ORBITS:Grossly unremarkable MASTOIDS:Unremarkable BONY STRUCTURES Intact ADDITIONAL FINDINGS: CT/CT head/brain wo con IMPRESSION: Unremarkable exam Impression dictated by: Primo Evans M.D.10/02/2022 5:25 PM Dictation Location: [place] [address] Transcribed By: [facility] 10/02/221724 Dictated By: Primo Evans DO 10/02/221721 Signed By: 10/02/22 172 Normal [facility] Calcium [Mass/volume] in Ser um or PlasmaOrdered By: Alberto Chappell on 10-02-2022 Calcium [Mass/Vol] 8.4 mg/dL 8.6-10.3 [facility] Carbon dioxide, total [Moles /volume] in Serum or PlasmaOrdered By: Alberto Chappell on 10-02-2022 CO2 [Moles/Vol] 25.5 mmol/L 21.0-31.0 [facility] Chloride [Moles/volume] in S lu or PlasmaOrdered By: Alberto Chappell on 10-02-2022 Chloride [Moles/Vol] 111 mmol/L 98-107 [facility] Color Auto (U)Ordered By: Jem Chappell on 10-02-2022 Color (U) Yellow Yellow [facility] Complete Blood Count Auto Di ffon 10-02-2022 Basophils (Bld) [#/Vol] 0.0 10*3/uL Normal 0.0-0.2 [facility] Comment on above: Result Comment: PERF ORMED BY: [place] [address] PATHOLOGIST [facility] PREET MUNOZ M.D. Performed By: #### C BC #### [address] Basophils/100 WBC (Bld) 0.5 % Normal . [facility] Comment on above: Performed By: #### C BC #### [address] Eosinophils (Bld) [#/Vol] 0.1 10*3/uL Normal 0.0-0.45 [facility] Comment on above: Performed By: #### C BC #### [address] Eosinophils/100 WBC (Bld) 1.5 % Normal . [facility] Comment on above: Performed By: #### C BC #### [address] Erythrocyte distribution width (RBC) [Ratio] 16.5 % High 12.0-14.8 [facility] Comment on above: Performed By: #### C BC #### [address] Hematocrit (Bld) [Volume fraction] 28.1 % Low 38.8-50.0 [facility] Comment on above: Performed By: #### C BC #### [address] Hemoglobin (Bld) [Mass/Vol] 9.7 g/dL Low 13.0-17.0 [facility] Comment on above: Performed By: #### C BC #### [address] Lymphocytes (Bld) [#/Vol] 0.7 10*3/uL Low 1.00-4.8 [facility] Comment on above: Performed By: #### C BC #### [address] Lymphocytes/100 WBC (Bld) 15.4 % Normal . [facility] Comment on above: Performed By: #### C BC #### [address] MCH (RBC) [Entitic mass] 37.9 pg High 27.5-35.2 [facility] Comment on above: Performed By: #### C BC #### [address] MCV (RBC) [Entitic vol] 109.5 fL High 83.5-101 [facility] Comment on above: Performed By: #### C BC #### [address] Mean Corpuscular HGB Conc 34.6 g/dL Normal 32.5-35.6 [facility] Comment on above: Performed By: #### C BC #### [address] Monocytes (Bld) [#/Vol] 0.5 10*3/uL Normal 0.0-0.8 [facility] Comment on above: Performed By: #### C BC #### [address] Monocytes/100 WBC (Bld) 18.85 % Normal 0.00-20.00 [facility] Comment on above: Performed By: #### C BC #### [address] Monocytes/100 WBC (Bld) 12.0 % Normal . [facility] Comment on above: Performed By: #### C BC #### [address] Neutrophils (Bld) [#/Vol] 3.0 10*3/uL Normal 1.8-7.7 [facility] Comment on above: Performed By: #### C BC #### [facility] [address] Neutrophils/100 WBC (Bld) 70.6 % Normal . [facility] Comment on above: Performed By: #### C BC #### [facility] [address] NRBC% 0.0 /100{WBC} Normal 0-0.5 [facility] Comment on above: Performed By: #### C BC #### [facility] [address] Platelet mean volume (Bld) [Entitic vol] 7.6 fL Normal 6.6-10.1 [facility] Comment on above: Performed By: #### C BC #### [facility] [address] Platelets (Bld) [#/Vol] 174 10*3/uL Normal 150-450 [facility] Comment on above: Performed By: #### C BC #### [facility] [address] RBC (Bld) [#/Vol] 2.56 10*6/uL Low 3.90-5.60 [facility] Comment on above: Performed By: #### C BC #### [facility] [address] WBC (Bld) [#/Vol] 4.3 10*3/uL Normal 4.1-10.5 [facility] Comment on above: Performed By: #### C BC #### [facility] [address] Creatine Kinaseon 10-02-2022 CK [Catalytic activity/Vol] 69 U/L Normal 30-223 [facility] Comment on above: Performed By: #### M G, BMP, PT, HS TROP, BNP, PTT, CK ####[facility] [place] [address] [place] Creatine kinase [Enzymatic a ctivity/volume] in Serum or PlasmaOrdered By: Alberto Chappell on 10-02-2022 CK [Catalytic activity/Vol] 69 U/L 30-223 [facility] Creatinine [Mass/volume] in Serum or PlasmaOrdered By: Alberto Chappell on 10-02-2022 Creatinine [Mass/Vol] 0.79 mg/dL 0.70-1.30 [facility] ECG 12 lead ECGon 10-02-2022 ECG 12 lead ECG [facility] [place] [address] Electrocardiograph Report Signed Patient: Raghavendra Heard MR#: [id number] 8 : 1945 Acct:[id number] Age/Sex: 77 / M ADM Date: 10/02/22 Loc: ER Room: Type: [facility] ER Attending Dr: Ordering Provider: Alberto Chappell PA-C Date of Service: 10/02/2209/21/1605 ECG/ECG 12 lead ECG: Dizziness Copies to: Test Reason : Blood Pressure : 198/082 mmHG Vent. Rate : 048 BPM Atrial Rate : 048 BPM P-R Int : 196 ms QRS Dur : 090 ms QT Int : 434 ms P-R-T Axes : 079 053 044 degrees QTc Int : 387 ms Sinus bradycardia Otherwise normal ECG No previous ECGs available Confirmed by ZAID GASPAR MD ([id number]) on 10/02/2022 7:23:09 PM Referred By: Electronically Signed By:ZAID GASPAR MD Transcribed By: MUS Signed By Zaid Gaspar MD 10/02/221922 Normal [facility] Eosinophils Auto (Bld) [#/Vo l]Ordered By: Alberto Chappell on 10-02-2022 Eosinophils (Bld) [#/Vol] 0.1 10*3/uL 0.0-0.45 [facility] Eosinophils/100 WBC Auto (Bl d)Ordered By: Alberto Chappell on 10-02-2022 Eosinophils/100 WBC (Bld) 1.5 % . [facility] Erythrocyte distribution wid th Auto (RBC) [Ratio]Ordered By: Alberto Chappell on 10-02-2022 Erythrocyte distribution width (RBC) [Ratio] 16.5 % 12.0-14.8 [facility] Glucose [Mass/volume] in Ser um or PlasmaOrdered By: Alberto Chappell on 10-02-2022 Glucose [Mass/Vol] 89 mg/dL 70-100 [facility] Comment on above: ADA recommended refe rence rangeRandom Glucose Reference Range is dependent on time and content of last meal. Glucose of more than 200 mg/dL in a nonstressed, ambulatory subject supports the diagnosis of Diabetes Mellitus. Hematocrit Auto (Bld) [Volum e fraction]Ordered By: Alberto Chappell on 10-02-2022 Hematocrit (Bld) [Volume fraction] 28.1 % 38.8-50.0 [facility] Hemoglobin [Mass/volume] in BloodOrdered By: Alberto Chappell on 10-02-2022 Hemoglobin (Bld) [Mass/Vol] 9.7 g/dL 13.0-17.0 [facility] Ketones Auto test strip (U) [Mass/Vol]Ordered By: Alberto Chappell on 10-02-2022 Ketones (U) [Mass/Vol] Negative Negative [facility] Laboratory - CoagulationOrde red By: Alberto Chappell on 10-02-2022 PT Coag (PPP) [Time] 12.0 s 9.0-12.9 [facility] Leukocytes [#/volume] correc daphne for nucleated erythrocytes in Blood by Automated counOrdered By: Alberto Chappell on 10-02-2022 WBC corrected for nucl RBC Auto (Bld) [#/Vol] 4.3 10*3/uL 4.1-10.5 [facility] Lymphocytes Auto (Bld) [#/Vo l]Ordered By: Alberto Chappell on 10-02-2022 Lymphocytes (Bld) [#/Vol] 0.7 10*3/uL 1.00-4.8 [facility] Lymphocytes/100 WBC Auto (Bl d)Ordered By: Alberto Chappell on 10-02-2022 Lymphocytes/100 WBC (Bld) 15.4 % . [facility] MCH Auto (RBC) [Entitic mass ]Ordered By: Alberto Chappell on 10-02-2022 MCH (RBC) [Entitic mass] 37.9 pg 27.5-35.2 [facility] MCHC Auto (RBC) [Mass/Vol]Or dered By: Alberto Chappell on 10-02-2022 MCHC (RBC) [Mass/Vol] 34.6 g/dL 32.5-35.6 [facility] MCV Auto (RBC) [Entitic vol] Ordered By: Alberto Chappell on 10-02-2022 MCV (RBC) [Entitic vol] 109.5 fL 83.5-101 [facility] Magnesiumon 10-02-2022 Magnesium [Mass/Vol] 1.7 mg/dL Low 1.9-2.7 [facility] Comment on above: Result Comment: PERF ORMED BY: [facility] [address] [place] [address] PATHOLOGIST [facility] [employer] PREET MUNOZ M.D. Performed By: #### M G, BMP, PT, HS TROP, BNP, PTT, CK ####[facility] [id number] [place] [address] [facility] Magnesium [Mass/volume] in S lu or PlasmaOrdered By: Alberto Chappell on 10-02-2022 Magnesium [Mass/Vol] 1.7 mg/dL 1.9-2.7 [facility] Monocyte distribution width [Entitic volume] in Blood by AutomatedOrdered By: Alberto Chappell on 10-02-2022 Monocyte distribution width Auto (Bld) [Entitic vol] 18.85 % 0.00-20.00 [facility] Monocytes Auto (Bld) [#/Vol] Ordered By: Alberto Chappell on 10-02-2022 Monocytes (Bld) [#/Vol] 0.5 10*3/uL 0.0-0.8 [facility] Monocytes/100 WBC Auto (Bld) Ordered By: Alberto Chappell on 10-02-2022 Monocytes/100 WBC (Bld) 12.0 % . [facility] Natriuretic peptide B [Mass/ Vol]Ordered By: Alebrto Chappell on 10-02-2022 Natriuretic peptide B (Bld) [Mass/Vol] 110.0 pg/mL 5-100 [facility] Neutrophils Auto (Bld) [#/Vo l]Ordered By: Alberto Chappell on 04-03-2023 Neutrophils (Bld) [#/Vol] 3.0 10*3/uL 1.8-7.7 [facility] Neutrophils/100 WBC Auto (Bl d)Ordered By: Alberto Chappell on 10-02-2022 Neutrophils/100 WBC (Bld) 70.6 % . [facility] Nitrite Test strip Ql (U)Ord ered By: Alberto Chappell on 10-02-2022 Nitrite Ql (U) Negative Negative [facility] No Panel InformationOrdered By: Alberto Chappell on 10-02-2022 Estimated GFR (CKD-EPI) > 60.0 mL/Min [facility] Creatinine Clearance (Chem 77.19 [facility] Nucleated erythrocytes [Pres ence] in Blood by Automated countOrdered By: Alberto Chappell on 10-02-2022 Nucleated RBC Auto Ql (Bld) 0.0 /100{WBC} 0-0.5 [facility] Partial Thromboplastin Timeo n 10-02-2022 aPTT Coag (Bld) [Time] 30.8 s Normal 25.1-36.5 [facility] Comment on above: Result Comment: PERF ORMED BY: [facility] [address] [facility] [address] PATHOLOGIST [facility] [employer] PREET MUNOZ M.D. Performed By: #### M G, BMP, PT, HS TROP, BNP, PTT, CK ####[facility] [id number] Platelet mean volume Auto (B ld) [Entitic vol]Ordered By: Alberto Chappell on 10-02-2022 Platelet mean volume (Bld) [Entitic vol] 7.6 fL 6.6-10.1 [facility] Platelet poor plasma interna tional normalized ratio (INR) by coagulation assay (relatOrdered By: Alberto Chappell on 10-02-2022 INR Coag (PPP) [Relative time] 1.0 {INR} [facility] Comment on above: INR Therapeutic Rang e A) Pre- and Peroperative OAT started two weeks before surgery. NOT HIP SURGERY: 1.5 - 2.5 HIP SURGERY: 2 - 3B) Primary and secondary prevention of venous THROMBOSIS: 2 - 3C) Active venous thrombosis, pulmonary embolismand prevention of recurrent venous thrombosis: 2 - 3D) Prevention of arterial thromboembolismincluding patients with mechanical heart valves: 3 - 4.5 Platelets Auto (Bld) [#/Vol] Ordered By: Alberto Chappell on 10-02-2022 Platelets (Bld) [#/Vol] 174 10*3/uL 150-450 [facility] Potassium [Moles/volume] in Serum or PlasmaOrdered By: Alberto Chappell on 10-02-2022 Potassium [Moles/Vol] 4.0 mmol/L 3.5-5.1 [facility] Protein Auto test strip (U) [Mass/Vol]Ordered By: Alberto Chappell on 10-02-2022 Protein (U) [Mass/Vol] Negative Negative [facility] Prothrombin Time INRon 10-02 INR Coag (PPP) [Relative time] 1.0 {INR} Normal [facility] Comment on above: Result Comment: INR Therapeutic Range A) Pre- and Peroperative OAT started two weeks before surgery. NOT HIP SURGERY: 1.5 - 2.5 HIP SURGERY: 2 - 3 B) Primary and secondary prevention of venous THROMBOSIS: 2 - 3 C) Active venous thrombosis, pulmonary embolism and prevention of recurrent venous thrombosis: 2 - 3 D) Prevention of arterial thromboembolism including patients with mechanical heart valves: 3 - 4.5 Performed By: #### M G, BMP, PT, HS TROP, BNP, PTT, CK ####[facility] [id number] [place] [address] [facility] PT Coag (PPP) [Time] 12.0 s Normal 9.0-12.9 [facility] Comment on above: Performed By: #### M G, BMP, PT, HS TROP, BNP, PTT, CK ####[facility] [id number] [place] [address] [facility] RBC Auto (Bld) [#/Vol]Ordere d By: Alberto Chappell on 10-02-2022 RBC (Bld) [#/Vol] 2.56 10*6/uL 3.90-5.60 [facility] Serum or plasma anion gap de terminationOrdered By: Alberto Chappell on 10-02-2022 Anion gap [Moles/Vol] 6.5 mmol/L 6.0-15.0 [facility] Sodium [Moles/volume] in Ser um or PlasmaOrdered By: Alberto Chappell on 10-02-2022 Sodium [Moles/Vol] 139 mmol/L 136-145 [facility] Specific gravity Auto test s trip (U) [Rel density]Ordered By: Alberto Chappell on 10-02-2022 Specific gravity (U) [Rel density] 1.007 1.001-1.030 [facility] Troponin I High Sensitivityo n 10-02-2022 Troponin I High Sensitivity 6.0 pg/mL Normal 0.0-20.0 [facility] Comment on above: Result Comment: PERF ORMED BY: [facility] [address] [facility] [address] PATHOLOGIST [facility] [employer] PREET MUNOZ M.D. Performed By: #### M G, BMP, PT, HS TROP, BNP, PTT, CK ####[facility] [id number] Troponin I.cardiac [Mass/vol ume] in Serum or Plasma by Detection limit <= 0.01 ng/Ordered By: Alberto Chappell on 10-02-2022 Troponin I.cardiac DL <= 0.01 ng/mL [Mass/Vol] 6.0 pg/mL 0.0-20.0 [facility] Urea nitrogen [Mass/volume] in Serum or PlasmaOrdered By: Alberto Chappell on 10-02-2022 Urea nitrogen [Mass/Vol] 26 mg/dL 7-25 [facility] Urinalysison 10-02-2022 Appearance (U) Clear Normal Clear [facility] Comment on above: Order Comment: Name Collection Type:: Clean-Voided Midstream Performed By: #### U A #### [facility] [address] Bilirubin,Urine Negative Normal Negative [facility] Comment on above: Order Comment: Name Collection Type:: Clean-Voided Midstream Performed By: #### U A #### [facility] [address] [place] [address] [place] Color (U) Yellow Normal Yellow [facility] Comment on above: Order Comment: Name Collection Type:: Clean-Voided Midstream Performed By: #### U A #### [facility] [address] [place] [address] Glucose Ql (U) Normal Normal Normal [facility] Comment on above: Order Comment: Name Collection Type:: Clean-Voided Midstream Performed By: #### U A #### [facility] [address] [place] [address] Ketones Ql (U) Negative Normal Negative [facility] Comment on above: Order Comment: Name Collection Type:: Clean-Voided Midstream Performed By: #### U A #### [facility] [address] [place] [address] Leukocyte esterase Test strip Ql (U) Negative Normal Negative [facility] Comment on above: Order Comment: Name Collection Type:: Clean-Voided Midstream Performed By: #### U A #### [facility] [address] [place] [address] [place] Nitrite,Urine Negative Normal Negative [facility] Comment on above: Order Comment: Name Collection Type:: Clean-Voided Midstream Performed By: #### U A #### [facility] [address] [place] [address] [place] Occult Blood,Urine Negative Normal Negative [facility] Comment on above: Order Comment: Name Collection Type:: Clean-Voided Midstream Result Comment: PERF ORMED BY: [place] [address] PATHOLOGIST [facility] PREET MUNOZ M.D. Performed By: #### U A #### [facility] [address] [place] [address] [place] pH (U) 6.0 [pH] Normal 5.0-9.0 [facility] Comment on above: Order Comment: Name Collection Type:: Clean-Voided Midstream Performed By: #### U A #### [facility] [address] [place] [address] [place] Protein,Urine Negative Normal Negative [facility] Comment on above: Order Comment: Name Collection Type:: Clean-Voided Midstream Performed By: #### U A #### [facility] [address] [place] [id number] [facility] Specificy [place],Urine 1.007 Normal 1.001-1.030 [facility] Comment on above: Order Comment: Name Collection Type:: Clean-Voided Midstream Performed By: #### U A #### [facility] [address] [place] [id number] [place] Urobilinogen,Urine Normal Normal Normal [facility] Comment on above: Order Comment: Name Collection Type:: Clean-Voided Midstream Performed By: #### U A #### [facility] [address] [place] [address] [place] Urine clarity by refractomet ry automatedOrdered By: Alberto Chappell on 10-02-2022 Clarity Refractometry automated (U) Clear Clear [facility] Urine glucose measurement by automated test strip (mass/volume)Ordered By: Alberto Chappell on 10-02-2022 Glucose Auto test strip (U) [Mass/Vol] Normal mg/dL Normal [facility] Urine hemoglobin detection b y automated test stripOrdered By: Alberto Chappell on 10-02-2022 Hemoglobin Auto test strip Ql (U) Negative Negative [facility] Urine leukocyte esterase det ection by automated test stripOrdered By: Alberto Chappell on 10-02-2022 Leukocyte esterase Auto test strip Ql (U) Negative Negative [facility] Urobilinogen Auto test strip (U) [Mass/Vol]Ordered By: Alberto Chappell on 10-02-2022 Urobilinogen (U) [Mass/Vol] Normal mg/dL Normal [facility] WBC Auto (Bld) [#/Vol]Ordere d By: Alberto Chappell on 10-02-2022 WBC (Bld) [#/Vol] 4.3 10*3/uL 4.1-10.5 [facility] XR chest 1V portableon 10-02 XR chest 1V portable [facility] [address] [place] [address] [place] [address] XRay Report Signed Patient: Raghavendra Heard MR#: [id number] 8 : 1945 Acct:[id number] Age/Sex: 77 / M ADM Date: 10/02/22 Loc: ER Room: Type: [facility] ER Attending Dr: Copies to: Alberto Chappell PA-C Ordering Provider: Alberto Chappell PA-C Date of Service: 10/02/22 XR/XR chest 1V portable: Dizziness Plain film chestsingle view HISTORY:Dizziness fell. COMPARISON:None FINDINGS: SUPPORT DEVICES: None POSTSURGICAL CHANGES:Right Dxmpaw-k-Nisi present. Hilar surgical clips are seen in the right. HEART: Within normal limits PULMONARY ELLIOT:Right hilar therapy changes present. MEDIASTINUM:Unremarkable LUNGS AND PLEURA: No acute lung process, pleural effusion or pneumothorax identified. Interstitial prominence. BONY STRUCTURES: Intact ADDITIONAL FINDINGS None XR/XR chest 1V portable IMPRESSION: No acute process. Post therapy changes. Impression dictated by: Primo Evans M.D.10/02/2022 4:45 PM Dictation Location: [place] [address] Transcribed By: [facility] 10/02/22 1645 Dictated By: Primo Evans DO 10/02/22 1640 Signed By: 10/02/22 1645 Normal [facility] pH Auto test strip (U)Ordere d By: Alberto Chappell on 10-02-2022 pH (U) 6.0 [pH] 5.0-9.[address] [facility] CT Chest WO contraston 09-26 IMPRESSION: 1. New patchy right perihilar groundglass opacities in the right upper lung field most likely related to postradiation change. 2. Residual adjacent 0.7 x 0.7 cm right perihilar nodular density, decreased in size since 03/30/22. 3. New 2 mm left lower lobe nodular opacity most likely infectious/inflammatory in etiology. Consider continued annual follow-up. 4. Other mild reticulonodular opacities and groundglass opacities in right lower lobe and 2-3 mm nodular opacities, stable. 5. 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 6. Mild emphysematous changes of the lungs. 7. 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 Transcribe Date/Time: Sep 26 2022 9:47A Dictated by: ARIANA HANSEN MD This examination was interpreted and the report reviewed and electronically signed by: ARIANA HANSEN MD on Sep 26 2022 10:55AM EST Thank you for allowing us to participate in the care of your patient. Should there be any questions regarding this interpretation, please call [phone]. If you are unable to reach us at the number above, please feel free to contact [facility] at [phone]. DIVISION OF RADIOLOGY * * *Final Report* * * DATE OF EXAM: Sep 26 2022 9:10AM [facility] [place] 0541 - CT CHEST WO IVCON / PROCEDURE REASON: Malignant neoplasm of unspecified part of unspecified bronchus or lung (HCC) * * * * Physician Interpretation * * * * RESULT: EXAMINATION: CHEST CT WITHOUT CONTRAST CLINICAL HISTORY: Malignant neoplasm of unspecified part of unspecified bronchus or lung (HCC) Right Lung Mediastinum ?6,000 cGy in ?30 fractions, 2 Naidu Technique: Spiral CT acquisition of the chest from the thoracic inlet to the upper abdomen without contrast. MQ: CTCWO_6 CT Radiation dose: Integrated Dose-length product (DLP) for this visit = 211 mGy*cm CT Dose Reduction Employed: Automated exposure control (AEC) Comparison: 03/30/22 RESULT: Limitations: None. Lines, tubes, and devices: None. 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 Mild emphysematous changes of the lungs. Mild mucous plugging is noted. New patchy right perihilar groundglass opacities in the right upper lung field (5:54) most likely related to postradiation change. Residual 0.7 x 0.7 cm right perihilar nodular density (4:66), previously 1.1 x 1.0 cm, decreased. New 2 mm left lower lobe nodular opacity (4:119) most likely infectious/inflammatory in etiology. Calcified pleural plaques in the right lung (image 4: 47, 112), stable. Mild residual reticular nodular opacities and groundglass opacities in the right lower lobe (4: 145), stable. 2-3 mm nodular opacities in the right lower lobe (4: 71) and left lower lobe (4: 74), stable. Pleural space: No pleural effusion. No pleural thickening. Lower neck, lymph nodes, and mediastinum: The imaged thyroid gland is normal. No lymphadenopathy in the supraclavicular, axillary, mediastinal, or hilar regions. Heart, pericardium, and thoracic vessels: The thoracic aorta and main pulmonary artery are normal in caliber. The cardiac chambers are normal in size. Atherosclerotic coronary artery calcifications are noted. No pericardial effusion or thickening. Bones and soft tissues: Healing fracture deformities of several right ribs are again noted. No new osseous abnormalities. Upper abdomen: No evidence of an adrenal mass. 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 DIVISION OF RADIOLOGY Provider, [facility] - 09/26/2022 * * *Final Report* * * DATE OF EXAM: Sep 26 2022 9:10AM [facility] [place] 0541 - CT CHEST WO IVCON / PROCEDURE REASON: Malignant neoplasm of unspecified part of unspecified bronchus or lung (HCC) * * * * Physician Interpretation * * * * RESULT: EXAMINATION: CHEST CT WITHOUT CONTRAST CLINICAL HISTORY: Malignant neoplasm of unspecified part of unspecified bronchus or lung (HCC) Right Lung Mediastinum ?6,000 cGy in ?30 fractions, 2 Naidu Technique: Spiral CT acquisition of the chest from the thoracic inlet to the upper abdomen without contrast. MQ: CTCWO_6 CT Radiation dose: Integrated Dose-length product (DLP) for this visit = 211 mGy*cm CT Dose Reduction Employed: Automated exposure control (AEC) Comparison: 03/30/22 RESULT: Limitations: None. Lines, tubes, and devices: None. 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 Mild emphysematous changes of the lungs. Mild mucous plugging is noted. New patchy right perihilar groundglass opacities in the right upper lung field (5:54) most likely related to postradiation change. Residual 0.7 x 0.7 cm right perihilar nodular density (4:66), previously 1.1 x 1.0 cm, decreased. New 2 mm left lower lobe nodular opacity (4:119) most likely infectious/inflammatory in etiology. Calcified pleural plaques in the right lung (image 4: 47, 112), stable. Mild residual reticular nodular opacities and groundglass opacities in the right lower lobe (4: 145), stable. 2-3 mm nodular opacities in the right lower lobe (4: 71) and left lower lobe (4: 74), stable. Pleural space: No pleural effusion. No pleural thickening. Lower neck, lymph nodes, and mediastinum: The imaged thyroid gland is normal. No lymphadenopathy in the supraclavicular, axillary, mediastinal, or hilar regions. Heart, pericardium, and thoracic vessels: The thoracic aorta and main pulmonary artery are normal in caliber. The cardiac chambers are normal in size. Atherosclerotic coronary artery calcifications are noted. No pericardial effusion or thickening. Bones and soft tissues: Healing fracture deformities of several right ribs are again noted. No new osseous abnormalities. Upper abdomen: No evidence of an adrenal mass. 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 IMPRESSION IMPRESSION: 1. New patchy right perihilar groundglass opacities in the right upper lung field most likely related to postradiation change. 2. Residual adjacent 0.7 x 0.7 cm right perihilar nodular density, decreased in size since 03/30/22. 3. New 2 mm left lower lobe nodular opacity most likely infectious/inflammatory in etiology. Consider continued annual follow-up. 4. Other mild reticulonodular opacities and groundglass opacities in right lower lobe and 2-3 mm nodular opacities, stable. 5. 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 6. Mild emphysematous changes of the lungs. 7. 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 Transcribe Date/Time: Sep 26 2022 9:47A Dictated by: ARIANA HANSEN MD This examination was interpreted and the report reviewed and electronically signed by: ARIANA HANSEN MD on Sep 26 2022 10:55AM EST Thank you for allowing us to participate in the care of your patient. Should there be any questions regarding this interpretation, please call [phone]. If you are unable to reach us at the number above, please feel free to contact [facility] at [phone]. [facility] Study observation (narrative) [facility] CT Chest WO contrastOrdered By: [facility] Provider on 09-26-2022 [facility] CBC W Auto Differential pane l (Bld)on 09-11-2022 Basophils (Bld) [#/Vol] <0.11 k/uL [facility] Basophils/100 WBC (Bld) 0.3 % [facility] Differential cell count method Nom (Bld) Auto [facility] Eosinophils (Bld) [#/Vol] 0.03 10*3/uL <0.46 k/uL [facility] Eosinophils/100 WBC (Bld) 1.0 % [facility] Erythrocyte distribution width (RBC) [Ratio] 17.2 % High 11.5 - 15.0 % [facility] Hematocrit (Bld) [Volume fraction] 29.5 % Low 39.0 - 51.0 % [facility] Hemoglobin (Bld) [Mass/Vol] 10.1 g/dL Low 13.0 - 17.0 g/dL [facility] Immature granulocytes (Bld) [#/Vol] <0.10 k/uL [facility] Immature granulocytes/100 WBC (Bld) 0.3 % [facility] Lymphocytes (Bld) [#/Vol] 0.48 10*3/uL Low 1.00 - 4.00 k/uL [facility] Lymphocytes/100 WBC (Bld) 16.3 % [facility] MCH (RBC) [Entitic mass] 37.3 pg High 26.0 - 34.0 pg [facility] MCHC (RBC) [Mass/Vol] 34.2 g/dL 30.5 - 36.0 g/dL [facility] MCV (RBC) [Entitic vol] 108.9 fL High 80.0 - 100.0 fL [facility] Monocytes (Bld) [#/Vol] 0.60 10*3/uL <0.87 k/uL [facility] Monocytes/100 WBC (Bld) 20.3 % [facility] Neutrophils (Bld) [#/Vol] 1.82 10*3/uL 1.45 - 7.50 k/uL [facility] Neutrophils/100 WBC (Bld) 61.8 % [facility] Nucleated RBC (Bld) [#/Vol] <0.01 k/uL [facility] Nucleated RBC/100 WBC (Bld) [Ratio] 0.0 /100 WBC [facility] Platelet mean volume (Bld) [Entitic vol] 9.1 fL 9.0 - 12.7 fL [facility] Platelets (Bld) [#/Vol] 214 10*3/uL 150 - 400 k/uL [facility] RBC (Bld) [#/Vol] 2.71 10*6/uL Low 4.20 - 6.0 0 m/uL [facility] WBC (Bld) [#/Vol] 2.95 10*3/uL Low 3.70 - 11.00 k/uL [facility] Comprehensive metabolic 2000 panelon 09-11-2022 Albumin [Mass/Vol] 4.0 g/dL 3.9 - 4.9 g/dL [facility] ALP [Catalytic activity/Vol] 65 U/L 38 - 113 U/L [facility] ALT [Catalytic activity/Vol] 16 U/L 10 - 54 U/L [facility] Anion gap [Moles/Vol] 7 mmol/L Low 9 - 18 mmol/L [facility] AST [Catalytic activity/Vol] 22 U/L 14 - 40 U/L [facility] Bilirubin [Mass/Vol] 0.2 mg/dL 0.2 - 1 .3 mg/dL [facility] Calcium [Mass/Vol] 9.3 mg/dL 8.5 - 10. 2 mg/dL [facility] Chloride [Moles/Vol] 102 mmol/L 97 - 10 5 mmol/L [facility] CO2 [Moles/Vol] 27 mmol/L 22 - 30 mmol/L [facility] Creatinine [Mass/Vol] 0.96 mg/dL 0.73 - 1.22 mg/dL [facility] Estimated Glomerular Filtration Rate 82 mL/min/1.73m >=60 mL/min/1.73 m [facility] Glucose [Mass/Vol] 136 mg/dL High 74 - 99 mg/dL [facility] Potassium [Moles/Vol] 3.9 mmol/L 3.7 - 5.1 mmol/L [facility] Protein [Mass/Vol] 7.4 g/dL 6.3 - 8.0 g/dL [facility] Sodium [Moles/Vol] 136 mmol/L 136 - 144 mmol/L [facility] Urea nitrogen [Mass/Vol] 22 mg/dL 9 - 24 mg/dL [facility] IMMUNOGLOBULINS GAMon 2022 IgA [Mass/Vol] 39 mg/dL Low 70 - 400 mg/dL [facility] IgG [Mass/Vol] 2139 mg/dL High 700 - 1,600 mg/dL [facility] IgM [Mass/Vol] 10 mg/dL Low 40 - 230 mg/dL [facility] CBC W Auto Differential pane l (Bld)on 08-01-2022 Basophils (Bld) [#/Vol] <0.11 k/uL [facility] Basophils/100 WBC (Bld) 1.1 % [facility] Differential cell count method Nom (Bld) Auto [facility] Eosinophils (Bld) [#/Vol] <0.46 k/uL [facility] Eosinophils/100 WBC (Bld) 0.0 % [facility] Erythrocyte distribution width (RBC) [Ratio] 13.2 % 11.5 - 15.0 % [facility] Hematocrit (Bld) [Volume fraction] 28.2 % Low 39.0 - 51.0 % [facility] Hemoglobin (Bld) [Mass/Vol] 9.7 g/dL Low 13.0 - 17.0 g/dL [facility] Immature granulocytes (Bld) [#/Vol] <0.10 k/uL [facility] Immature granulocytes/100 WBC (Bld) 0.6 % [facility] Lymphocytes (Bld) [#/Vol] 0.38 10*3/uL Low 1.00 - 4.00 k/uL [facility] Lymphocytes/100 WBC (Bld) 21.1 % [facility] MCH (RBC) [Entitic mass] 35.1 pg High 26.0 - 34.0 pg [facility] MCHC (RBC) [Mass/Vol] 34.4 g/dL 30.5 - 36.0 g/dL [facility] MCV (RBC) [Entitic vol] 102.2 fL High 80.0 - 100.0 fL [facility] Monocytes (Bld) [#/Vol] 0.29 10*3/uL <0.87 k/uL [facility] Monocytes/100 WBC (Bld) 16.1 % [facility] Neutrophils (Bld) [#/Vol] 1.10 10*3/uL Low 1.45 - 7.50 k/uL [facility] Neutrophils/100 WBC (Bld) 61.1 % [facility] Nucleated RBC (Bld) [#/Vol] <0.01 k/uL [facility] Nucleated RBC/100 WBC (Bld) [Ratio] 0.0 /100 WBC [facility] Platelet mean volume (Bld) [Entitic vol] 10.3 fL 9.0 - 12.7 fL [facility] Platelets (Bld) [#/Vol] 83 10*3/uL Low 150 - 400 k/uL [facility] RBC (Bld) [#/Vol] 2.76 10*6/uL Low 4.20 - 6.0 0 m/uL [facility] WBC (Bld) [#/Vol] 1.80 10*3/uL Low 3.70 - 11.00 k/uL [facility] Comprehensive metabolic 2000 panelon 08-01-2022 Albumin [Mass/Vol] 3.7 g/dL Low 3.9 - 4.9 g/dL [facility] ALP [Catalytic activity/Vol] 65 U/L 38 - 113 U/L [facility] ALT [Catalytic activity/Vol] 18 U/L 10 - 54 U/L [facility] Anion gap [Moles/Vol] 7 mmol/L Low 9 - 18 mmol/L [facility] AST [Catalytic activity/Vol] 18 U/L 14 - 40 U/L [facility] Bilirubin [Mass/Vol] 0.2 mg/dL 0.2 - 1 .3 mg/dL [facility] Calcium [Mass/Vol] 9.6 mg/dL 8.5 - 10. 2 mg/dL [facility] Chloride [Moles/Vol] 103 mmol/L 97 - 10 5 mmol/L [facility] CO2 [Moles/Vol] 28 mmol/L 22 - 30 mmol/L [facility] Creatinine [Mass/Vol] 0.79 mg/dL 0.73 - 1.22 mg/dL [facility] Estimated Glomerular Filtration Rate 93 mL/min/1.73m >=60 mL/min/1.73 m [facility] Glucose [Mass/Vol] 120 mg/dL High 74 - 99 mg/dL [facility] Potassium [Moles/Vol] 4.4 mmol/L 3.7 - 5.1 mmol/L [facility] Protein [Mass/Vol] 7.5 g/dL 6.3 - 8.0 g/dL [facility] Sodium [Moles/Vol] 138 mmol/L 136 - 144 mmol/L [facility] Urea nitrogen [Mass/Vol] 26 mg/dL High 9 - 24 mg/dL [facility] Comprehensive metabolic 2000 panelon 07-25-2022 Albumin [Mass/Vol] 4.0 g/dL 3.9 - 4.9 g/dL [facility] ALP [Catalytic activity/Vol] 61 U/L 38 - 113 U/L [facility] ALT [Catalytic activity/Vol] 26 U/L 10 - 54 U/L [facility] Anion gap [Moles/Vol] 8 mmol/L Low 9 - 18 mmol/L [facility] AST [Catalytic activity/Vol] 31 U/L 14 - 40 U/L [facility] Bilirubin [Mass/Vol] 0.2 mg/dL 0.2 - 1 .3 mg/dL [facility] Calcium [Mass/Vol] 8.6 mg/dL 8.5 - 10. 2 mg/dL [facility] Chloride [Moles/Vol] 102 mmol/L 97 - 10 5 mmol/L [facility] CO2 [Moles/Vol] 27 mmol/L 22 - 30 mmol/L [facility] Creatinine [Mass/Vol] 0.91 mg/dL 0.73 - 1.22 mg/dL [facility] Estimated Glomerular Filtration Rate 88 mL/min/1.73m >=60 mL/min/1.73 m [facility] Glucose [Mass/Vol] 130 mg/dL High 74 - 99 mg/dL [facility] Potassium [Moles/Vol] 4.0 mmol/L 3.7 - 5.1 mmol/L [facility] Protein [Mass/Vol] 7.4 g/dL 6.3 - 8.0 g/dL [facility] Sodium [Moles/Vol] 137 mmol/L 136 - 144 mmol/L [facility] Urea nitrogen [Mass/Vol] 31 mg/dL High 9 - 24 mg/dL [facility] CBC W Auto Differential pane l (Bld)on 07-11-2022 Basophils (Bld) [#/Vol] <0.11 k/uL [facility] Basophils/100 WBC (Bld) 0.6 % [facility] Differential cell count method Nom (Bld) Auto [facility] Eosinophils (Bld) [#/Vol] 0.03 10*3/uL <0.46 k/uL [facility] Eosinophils/100 WBC (Bld) 0.9 % [facility] Erythrocyte distribution width (RBC) [Ratio] 13.2 % 11.5 - 15.0 % [facility] Hematocrit (Bld) [Volume fraction] 35.8 % Low 39.0 - 51.0 % [facility] Hemoglobin (Bld) [Mass/Vol] 12.4 g/dL Low 13.0 - 17.0 g/dL [facility] Immature granulocytes (Bld) [#/Vol] <0.10 k/uL [facility] Immature granulocytes/100 WBC (Bld) 0.3 % [facility] Lymphocytes (Bld) [#/Vol] 1.25 10*3/uL 1.00 - 4.00 k/uL [facility] Lymphocytes/100 WBC (Bld) 39.2 % [facility] MCH (RBC) [Entitic mass] 35.9 pg High 26.0 - 34.0 pg [facility] MCHC (RBC) [Mass/Vol] 34.6 g/dL 30.5 - 36.0 g/dL [facility] MCV (RBC) [Entitic vol] 103.8 fL High 80.0 - 100.0 fL [facility] Monocytes (Bld) [#/Vol] 0.20 10*3/uL <0.87 k/uL [facility] Monocytes/100 WBC (Bld) 6.3 % [facility] Neutrophils (Bld) [#/Vol] 1.68 10*3/uL 1.45 - 7.50 k/uL [facility] Neutrophils/100 WBC (Bld) 52.7 % [facility] Nucleated RBC (Bld) [#/Vol] <0.01 k/uL [facility] Nucleated RBC/100 WBC (Bld) [Ratio] 0.0 /100 WBC [facility] Platelet mean volume (Bld) [Entitic vol] 10.6 fL 9.0 - 12.7 fL [facility] Platelets (Bld) [#/Vol] 135 10*3/uL Low 150 - 400 k/uL [facility] RBC (Bld) [#/Vol] 3.45 10*6/uL Low 4.20 - 6.0 0 m/uL [facility] WBC (Bld) [#/Vol] 3.19 10*3/uL Low 3.70 - 11.00 k/uL [facility] Comprehensive metabolic 2000 panelon 07-11-2022 Albumin [Mass/Vol] 4.3 g/dL 3.9 - 4.9 g/dL [facility] ALP [Catalytic activity/Vol] 57 U/L 38 - 113 U/L [facility] ALT [Catalytic activity/Vol] 25 U/L 10 - 54 U/L [facility] Anion gap [Moles/Vol] 6 mmol/L Low 9 - 18 mmol/L [facility] AST [Catalytic activity/Vol] 31 U/L 14 - 40 U/L [facility] Bilirubin [Mass/Vol] 0.4 mg/dL 0.2 - 1 .3 mg/dL [facility] Calcium [Mass/Vol] 8.9 mg/dL 8.5 - 10. 2 mg/dL [facility] Chloride [Moles/Vol] 101 mmol/L 97 - 10 5 mmol/L [facility] CO2 [Moles/Vol] 29 mmol/L 22 - 30 mmol/L [facility] Creatinine [Mass/Vol] 0.81 mg/dL 0.73 - 1.22 mg/dL [facility] Estimated Glomerular Filtration Rate 92 mL/min/1.73m >=60 mL/min/1.73 m [facility] Glucose [Mass/Vol] 122 mg/dL High 74 - 99 mg/dL [facility] Potassium [Moles/Vol] 3.9 mmol/L 3.7 - 5.1 mmol/L [facility] Protein [Mass/Vol] 7.6 g/dL 6.3 - 8.0 g/dL [facility] Sodium [Moles/Vol] 136 mmol/L 136 - 144 mmol/L [facility] Urea nitrogen [Mass/Vol] 25 mg/dL High 9 - 24 mg/dL [facility] Laboratory - Chemistry and C hemistry - challengeon 07-11-2022 Magnesium [Mass/Vol] 1.8 mg/dL 1.7 - 2 .3 mg/dL [facility] CBC W Auto Differential pane l (Bld)on 07-04-2022 Basophils (Bld) [#/Vol] 0.03 10*3/uL <0.11 k/uL [facility] Basophils/100 WBC (Bld) 0.6 % [facility] Differential cell count method Nom (Bld) Auto [facility] Eosinophils (Bld) [#/Vol] 0.04 10*3/uL <0.46 k/uL [facility] Eosinophils/100 WBC (Bld) 0.8 % [facility] Erythrocyte distribution width (RBC) [Ratio] 13.4 % 11.5 - 15.0 % [facility] Hematocrit (Bld) [Volume fraction] 35.6 % Low 39.0 - 51.0 % [facility] Hemoglobin (Bld) [Mass/Vol] 11.9 g/dL Low 13.0 - 17.0 g/dL [facility] Immature granulocytes (Bld) [#/Vol] <0.10 k/uL [facility] Immature granulocytes/100 WBC (Bld) 0.4 % [facility] Lymphocytes (Bld) [#/Vol] 1.68 10*3/uL 1.00 - 4.00 k/uL [facility] Lymphocytes/100 WBC (Bld) 34.4 % [facility] MCH (RBC) [Entitic mass] 35.4 pg High 26.0 - 34.0 pg [facility] MCHC (RBC) [Mass/Vol] 33.4 g/dL 30.5 - 36.0 g/dL [facility] MCV (RBC) [Entitic vol] 106.0 fL High 80.0 - 100.0 fL [facility] Monocytes (Bld) [#/Vol] 0.46 10*3/uL <0.87 k/uL [facility] Monocytes/100 WBC (Bld) 9.4 % [facility] Neutrophils (Bld) [#/Vol] 2.65 10*3/uL 1.45 - 7.50 k/uL [facility] Neutrophils/100 WBC (Bld) 54.4 % [facility] Nucleated RBC (Bld) [#/Vol] <0.01 k/uL [facility] Nucleated RBC/100 WBC (Bld) [Ratio] 0.0 /100 WBC [facility] Platelet mean volume (Bld) [Entitic vol] 10.1 fL 9.0 - 12.7 fL [facility] Platelets (Bld) [#/Vol] 176 10*3/uL 150 - 400 k/uL [facility] RBC (Bld) [#/Vol] 3.36 10*6/uL Low 4.20 - 6.0 0 m/uL [facility] WBC (Bld) [#/Vol] 4.88 10*3/uL 3.70 - 11.00 k/uL [facility] Comprehensive metabolic 2000 panelon 07-04-2022 Albumin [Mass/Vol] 4.4 g/dL 3.9 - 4.9 g/dL [facility] ALP [Catalytic activity/Vol] 53 U/L 38 - 113 U/L [facility] ALT [Catalytic activity/Vol] 21 U/L 10 - 54 U/L [facility] Anion gap [Moles/Vol] 7 mmol/L Low 9 - 18 mmol/L [facility] AST [Catalytic activity/Vol] 28 U/L 14 - 40 U/L [facility] Bilirubin [Mass/Vol] 0.5 mg/dL 0.2 - 1 .3 mg/dL [facility] Calcium [Mass/Vol] 9.3 mg/dL 8.5 - 10. 2 mg/dL [facility] Chloride [Moles/Vol] 104 mmol/L 97 - 10 5 mmol/L [facility] CO2 [Moles/Vol] 26 mmol/L 22 - 30 mmol/L [facility] Creatinine [Mass/Vol] 0.87 mg/dL 0.73 - 1.22 mg/dL [facility] Estimated Glomerular Filtration Rate 90 mL/min/1.73m >=60 mL/min/1.73 m [facility] Glucose [Mass/Vol] 99 mg/dL 74 - 99 mg/dL [facility] Potassium [Moles/Vol] 4.4 mmol/L 3.7 - 5.1 mmol/L [facility] Protein [Mass/Vol] 7.7 g/dL 6.3 - 8.0 g/dL [facility] Sodium [Moles/Vol] 137 mmol/L 136 - 144 mmol/L [facility] Urea nitrogen [Mass/Vol] 26 mg/dL High 9 - 24 mg/dL [facility] ANES POSTPROC EVALon 022 ANES POSTPROC EVAL HNO ID: [id number] Author: Elvin Boo MD Service: Anesthesiology Author Type: Anesthesiologist Type: Anesthesia Postprocedure Evaluation Filed: 06/14/2022 11:43 AM Note Text: POST ANESTHESIA EVALUATION NOTE : 1945 Procedure Summary Date: 06/14/22 Room / Location: GI02 / [facility] Anesthesia Start: 932 Anesthesia Stop: 1035 Procedure: BRONCHOSCOPY,RIGID/FLEXIBL E W/ FLUORO,W/ENDOBRONCHIAL ULTRASOUND (EBUS) GUIDED TRANSTRACHEAL/ TRANSBRONCHIAL ASPIRATION/BIOPSY,1 OR 2 MEDIASTINAL AND/OR HILAR LYMPH NODE STATIONS/STRUCTURES (Bronchus) Diagnosis: Adenopathy (Adenopathy [R59.9]) Surgeons: Henri Anderson MD Responsible Provider: Elvin Boo MD Anesthesia Type: general ASA Status: 3 Anesthesia Type: general Airway Type: LMA Last Vitals Vitals Value Taken Time BP 161/70 06/14/22 1128 Temp 36.5 ?C (97.7 ?F) 06/14/22 1128 HR SpO2 47 06/14/22 1034 Resp 15 06/14/22 1128 SpO2 98 % 06/14/22 1128 Post Anesthesia Patient Status Patient Evaluation: PACU. PACU/ICU Patient Condition: stable. Anticipated Disposition: phase 2 then home. Neurological Status: aware and responsive. Pulmonary Status: breathing comfortably on room air Airway Control: returned to baseline unsupported. Cardiovascular Status: stable. Pain Management: clinically adequate Postoperative Hydration: acceptable. Intraoperative Events: no significant anesthesia events Recommendation: continue current plan of care and further care per PACU/ICU/floor team. Anesthesia Observations No Documentation SIGNATURE: Elvin Boo MD PATIENT NAME: Raghavendra Heard DATE: June 14, 2022 TIME: 11:43 AM CSN: [id number] [facility] ANES PRE-OPon 06-14-2022 ANES PRE-OP HNO ID: [id number] Author: Elvin Boo MD Service: Anesthesiology Author Type: Anesthesiologist Type: Anesthesia Preprocedure Evaluation Filed: 06/14/2022 8:38 AM Note Text: ANESTHESIOLOGY DAY OF SURGERY NOTE : 1945 Procedure Information Date/Time: 06/14/22 0900 Procedure: BRONCHOSCOPY,RIGID/FLEXIBL E W/ FLUORO,W/ENDOBRONCHIAL ULTRASOUND (EBUS) GUIDED TRANSTRACHEAL/ TRANSBRONCHIAL ASPIRATION/BIOPSY,1 OR 2 MEDIASTINAL AND/OR HILAR LYMPH NODE STATIONS/STRUCTURES (Bronchus) Location: [facility] Surgeons: Henri Anderson MD Estimated body mass index is 24.52 kg/m? as calculated from the following: Height as of 05/30/22: 172.7 cm (5' 7.99 ). Weight as of 05/30/22: 73.1 kg (161 lb 3.2 oz). Most recent hematocrit and potassium results: Hematocrit 32.4 05/30/2022 Potassium 4.2 05/30/2022 Relevant Problems CARDIO (+) Coronary artery disease with history of myocardial infarction without history of CABG NEURO-PSYCH (+) History of lung cancer I - PHYSICAL EVALUATION AIRWAY Patient intubated: No. Tracheostomy tube not present Mallampati: III. TM distance: >3 FB. Neck ROM: full ROM without neurological symptoms. Mouth opening: adequate. Short neck: no. Thick neck: no Canela present: yes DENTAL Dental findings: edentulous. Additional exam findings: yes. CARDIOVASCULAR Normal cardiovascular observations. Rhythm: regular Rate: normal PULMONARY Normal pulmonary observations. Breath sounds clear to auscultation. II - ANESTHESIA PLAN ASA Score: 3 Anesthetic Plan: general Airway type: LMA NPO Status: adequate Beta Fide Monitoring Plan Monitoring plan: Standard ASA. Post Procedure Analgesic Plan Postoperative analgesic plan: multimodal analgesia. Informed Consent Anesthetic risks, benefits, alternatives, personnel and consent discussed: yes. Patient / Responsible Democrat agrees to proceed: yes Patient / Surrogate agrees to blood products: blood products not planned Significant changes in the patient condition since the History and Physical, not otherwise documented in primary service progress note: no. Potential Anesthesia issues that may suggest increased risk of complications or contraindication to planned procedure: none. No vitals data found for the desired time range. No current facility-administered medications on file as of 06/14/2022. Outpatient Medications as of 06/14/2022 Medication Sig - meloxicam (MOBIC) 15 mg tablet TAKE 1 TABLET BY MOUTH EVERY DAY - HYDROcodone-acetaminophen (NORCO) 5-325 mg per tablet Take 2 tablets by mouth every 6 hours as needed. - metoprolol succinate ER (TOPROL XL) 25 mg 24 hr tablet Take 25 mg by mouth once daily. - mv-mn/iron/folic acid/herb 190 (VITAMIN D3 COMPLETE ORAL) Take by mouth. - DULoxetine (CYMBALTA) 60 mg capsule Take 1 capsule by mouth twice daily. - clonazePAM (KLONOPIN) 1 mg tablet Take 1 tablet by mouth three times daily as needed for up to 30 days. - docusate sodium (COLACE) 100 mg capsule TAKE 2 CAPSULES BY MOUTH TWICE A DAY - senna (SENNA LAXATIVE) 8.6 mg tab Take 2 tablets by mouth twice daily. - famciclovir (FAMVIR) 250 mg tablet TAKE 1 TABLET BY MOUTH TWICE A DAY - gabapentin (NEURONTIN) 300 mg capsule TAKE 2 CAPSULES BY MOUTH THREE TIMES DAILY FOR 90 DAYS - ZINC ORAL Take by mouth. - tamsulosin ER (FLOMAX) 0.4 mg cap - baclofen (LIORESAL) 10 mg tablet Take 10 mg by mouth three times daily. - calcium carbonate (CALCIUM 600) 600 mg calcium (1,500 mg) tab Take 600 mg by mouth. - naproxen sodium (ALEVE ORAL) Take by mouth. - Aspirin 81 mg CpDR Take 81 mg by mouth once daily. - atorvastatin 40 mg tablet Take 40 mg by mouth once daily. - DOCOSAHEXANOIC ACID/EPA (FISH OIL ORAL) Take by mouth. - prochlorperazine (COMPAZINE) 10 mg tablet Take 1 tablet by mouth every 6 hours as needed. - melatonin 10 mg cap TAKE 1 CAPSULE BY MOUTH EVERYDAY AT BEDTIME - nitroglycerin sublingual (NITROQUICK) 0.4 mg SL tablet Dissolve 0.4 mg under the tongue every 5 minutes as needed. I have interviewed and examined the patient. I have reviewed the medical record and/or the pre-anesthesia evaluation, pertinent labs, and test results. This contains updated information obtained within 48 hours of Surgery/Procedure. SIGNATURE: Elvin Boo MD PATIENT NAME: Raghavendra Heard DATE: June 14, 2022 TIME: 8:38 AM CSN: [id number] Normal [facility] CYTOLOGY NON-GYNon 2 ADEQUACY INTERPRETATION Normal [facility] Comment on above: Order Comment: Speci men Type: SPECIMEN OBTAINED BY ASPIRATION Ordering Facility: [facility] Address: [address] [place] [id number] Result Comment: A: # 1 Positive for malignant cells, non-small cell carcinoma Dr. Ashley / Manisha Marie reported onsite to Dr. Anderson on 06/14/22. Each letter in the above intra-procedural assessment refers to a unique site. The specific site is indicated in the final diagnosis portion of the report. Each number in this assessment references a discrete evaluation episode. Intra-procedural assessment performed at [facility], [address] [place] [address] Performed By: #### L UNGCY, FSHTPA #### [facility] CLIA [id number] [address] [place] [address] [place] #### [place] #### [facility] CLIA [id number] [address] [place] [address] [place] CASE REPORT Normal [facility] Comment on above: Order Comment: Speci men Type: SPECIMEN OBTAINED BY ASPIRATION Ordering Facility: [facility] Address: [address] [place] [address] Result Comment: [facility] Cytology Report Case: [id number] Authorizing Provider: Henri Anderson MD Collected: 06/14/2022 09:28 AM Ordering Location: [facility] Received: 06/14/2022 10:46 AM Endoscopy - ENDO Pathologist: Jimi Ashley MD Specimen: EBUS TRANSBRONCHIAL FINE NEEDLE ASPIRATE, LYMPH NODE, 10R Performed By: #### L UNGCY, FSHTPA #### [facility] CLIA [id number] [address] [place] [address] [place] #### [place] #### [facility] CLIA [id number] [address] [place] [address] [place] CLINICAL HISTORY Normal [facility] Comment on above: Order Comment: Speci men Type: SPECIMEN OBTAINED BY ASPIRATION Ordering Facility: [facility] Address: [address] [place] [address] Result Comment: Pre- op diagnosis: Adenopathy [R59.9] Performed By: #### L UNGCY, FSHTPA #### [facility] CLIA [id number] [address] [place] [address] [place] #### [place] #### [facility] CLIA [id number] [address] [place] [address] [place] FINAL DIAGNOSIS Normal [facility] Comment on above: Order Comment: Speci men Type: SPECIMEN OBTAINED BY ASPIRATION Ordering Facility: [facility] Address: [address] [place] [address] Result Comment: A - EBUS TRANSBRONCHIAL FINE NEEDLE ASPIRATE, LYMPH NODE - 10R Positive for malignant cells. Adenocarcinoma (see comment). The following cell blocks were associated with this case: A1 Cell Block, Alcohol Fixed Performed By: #### L UNGCY, FSHTPA #### [facility] CLIA [id number] [address] [place] [address] [place] #### [place] #### [facility] CLIA [id number] [address] [place] [address] STATES [facility] FINAL PERFORMING LAB Normal [facility] Comment on above: Order Comment: Speci men Type: SPECIMEN OBTAINED BY ASPIRATION Ordering Facility: [facility] Address: [address] [place] [address] Result Comment: Tech nical component, customer engagement representative screening performed at [facility], [id number] [place] [address] CLIA# [id number] Diagnostic interpretation performed at [facility], [address] [place] [address] CLIA# [id number] Glue Spreading Machine Operator: Jimi Ashley M.D. Performed By: #### L UNGCY, FSHTPA #### [facility] CLIA [id number] [address] [place] [address] #### [place] #### [facility] CLIA [id number] [address] [place] [address] STATES [facility] GROSS DESCRIPTION Normal [facility] Comment on above: Order Comment: Speci men Type: SPECIMEN OBTAINED BY ASPIRATION Ordering Facility: [facility] Address: [address] [place] [address] Result Comment: A. E BUS TRANSBRONCHIAL FINE NEEDLE ASPIRATE, LYMPH NODE 30 cc hazy red CytoLyt with material. ThinPrep and Cell Block prepared and 2 smears (1 air dried and 1 fixed). Performed By: #### L UNGCY, FSHTPA #### [facility] CLIA [id number] [address] [facility] [id number] [place] [id number] [place] #### [place] #### [facility] CLIA [id number] [address] [place] [id number] [place] FISH FOR ALK (2P23) THINPREP NSCLCon 06-14-2022 FISH FOR ALK (2P23) THINPREP NSCLC Normal [facility] Comment on above: Order Comment: Speci men Type: SPECIMEN OBTAINED BY ASPIRATION Ordering Facility: [facility] Address: [address] [id number] Result Comment: FISH FOR ALK (2P23) THINPREP NSCLC Laboratory Accession Number: [id number] Case: [id number] Sample Type: FNA Sample Description: TRANSBRONCHIAL FNA, LYMPH NODE 10R Received Date: 06/15/2022 Number of nuclei scored: 50 RESULT: Result Reference Range ALK Rearrangement 0% (0-14%) INTERPRETATION: Interphase FISH was negative for a rearrangement involving the ALK gene at 2p23.2. METHODOLOGY: The dual color, ALK (2p23.2-2p23.1) Break Apart FISH Probe Kit ([place], [place], [place]), approved for formalin-fixed, paraffin- embedded tissue by the Food and Drug Administration (FDA) for selection of locally advanced or metastatic non-small cell lung cancer patients for treatment with crizotinib, was modified for use with ThinPrep cytopathology slides as a laboratory developed test. Fifty (50) interphase cancer cells were analyzed. The slides were scored manually. REFERENCES: 1) Sree EL, Tio Y-J, Sheila BACA, et al. Anaplastic Lymphoma Kinase Inhibition in Urc-[id number]-Gkpk Lung Cancer. N Engl J Med 2010;363:8926-4094. 2) Courtney NI, Osvaldo PT, Sushil MN, et al. Molecular Testing Guideline for the Selection of Lung Cancer Patients for EGFR and ALK Tyrosine Kinase Inhibitors: Guideline from the College of [place] [employer], International Association for the Study of Lung Cancer, and Association for Molecular Pathology. J Mol Diagn 2013;15:415-53. 3) NCCN Clinical Practice Guidelines in Oncology: Non-Small Cell Lung Cancer, National Comprehensive Cancer Network, Inc. Available at NCCN.org. 4) Buzz SJ, Porsche M, Ethan S, et al. Unique clinicopathologic features characterize ALK-rearranged lung adenocarcinoma in the western population. Clin Cancer Res 2009;15:4396-6799. LIMITATIONS: This test will not identify all rearrangements in ALK. Rare, cryptic abnormalities may be below the resolution of the assay, or may otherwise be undetected. Specimen size, quality or representativeness can affect the quality of the results. DISCLAIMER: This test was developed and its performance characteristics determined by the [facility] [place] ([facility] It has not been cleared or approved by the FDA. [facility] is regulated under CLIA as qualified to perform high- complexity testing. This test is used for clinical purposes. It should not be regarded as investigational or for research. Interpretation performed at [facility], [address] [place] [address]. CLIA Number: [id number] As reviewed by Francesca Aguilera MD, PhD Performed By: #### L UNGCY, FSHTPA #### [facility] CLIA [id number] [address] [place], [place] [address] [address] OF [facility] #### [place] #### [facility] CLIA [id number] [address] [place] [address] OF [facility] LUNG CANCER HOTSPOT GENE HERNANDEZ EL CYTOLOGYon 06-14-2022 LUNG CANCER HOTSPOT GENE PANEL CYTOLOGY Normal [facility] Comment on above: Order Comment: Speci men Type: SPECIMEN OBTAINED BY ASPIRATION Ordering Facility: [facility] Address: [address] [place] [address] Result Comment: Lung Cancer Hotspot Gene Panel Laboratory Accession Number: [id number] Case #: [id number] Part ID: [id number] Sample Type: FNA % Tumor: 80 Result: BRAF - No variant detected [Reference Sequence: ([id number])]. EGFR - No variant detected [Reference Sequence: ([id number])]. HER2 (ERBB2) - No variant detected [Reference Sequence: ([id number])]. KRAS - No variant detected [Reference Sequence: ([id number])]. MET - No variant detected [Reference Sequence: ([id number])]. Interpretation: No cancer-related sequence changes were identified in mutation hotspots within the BRAF, EGFR, KRAS, MET, and HER2 (ERBB2) genes. These include common therapy-related mutations in BRAF exon 15, including codon 600, EGFR exons 18-21, KRAS exons 2, 3, 4, including codons 12, 13, 61, and others (e.g. 117, 146), MET exon 14 splicing site mutations and HER2 (ERBB2) exons 18-21. BRAF (B-Radhika jamie-oncogene, serine/threonine kinase) encodes a serine threonine kinase that is part of the mitogen-activated protein kinase (MAPK) signaling pathway, which promotes cellular growth and survival. Mutations in BRAF codon V600 in exon 15 are present in 1-5% of lung adenocarcinomas, and result in constitutive activation of the enzyme. V600E, which describes the substitution of glutamic acid (E) for valine (V) at position 600, represents approximately 50% of V600 mutations in lung cancer, and is associated with light or never smoking women whose tumors have micropapillary histology. BRAF V600 mutations in lung adenocarcinomas may predict responsiveness to BRAF inhibitor therapies such as vemurafinib and debrafenib (Stephanie Delarosa, et al. J Clin Oncol 2011;29:3574:79; Flako Peralta. et al. N Engl J Med 2015;373:726-36). EGFR (epidermal growth factor receptor) encodes a receptor tyrosine kinase that is a member of the ERBB family. Receptor dimerization activates the downstream JET/RADHIKA/MEK and PI3K/AKT/mTOR pathways, which promote cellular growth and survival. EGFR mutations are identified in approximately 16% of lung adenocarcinomas, are most commonly found in Asians, women and non-smokers. In-frame deletions within exon 19 and the [id number] mutation in exon 21 account for 90% of EGFR mutations. Exon 19 deletions, and mutations in exons 18 and 21 typically predict responsiveness to reversible small molecule EGFR tyrosine kinase inhibitors such as gefitinib and erlotinib, as well as irreversible inhibitors such as neratinib, dacomitinib, and afatinib. Exon 20 insertions and the T790M mutation are associated with resistance to EGFR tyrosine kinase inhibitors. (NCCN Clinical Practice Guidelines in Oncology: Non-Small Cell Lung Cancer, available at NCCN.org; Isabela NI, Osvaldo PT. Sushil ANDREWS, et al. J Mol Diagn 2013;15:415-53; Reyna De Leon Govindan R. Lancet Oncol 2015;16:e342-51; Boolell V, Alaeer M, Ayala DN, et al. Cancers 2015;7:1815-46; FEBS J 2010;277:301-8; Alice Guillen. Cancer. Clin Cancer Res 2015;21:2221-6; Jacky C, Tai TM, Ervin A, et al. Transl Lung Cancer Res 2015;4:126-41; Stephanie A, Ned L, Malatesta S, et al. J Clin Oncol 2011;29:3574-9; Nasir ALVARADO, Priscilla Melgar, Iman Anguiano. Proc Am Thorac Soc 2009;6:201-5.) HER2, now known as ERBB2 (erb-b2 receptor tyrosine kinase 2), encodes a receptor tyrosine kinase that lacks a known ligand. HER2 receptor dimerization activates downstream signaling through the PI3K/AKT/mTOR and MEK/ERK pathways, promoting cellular proliferation, differentiation, and migration, and mediating sensitivity of EGFR- mutant lung tumors to anti-EGFR therapy. Activating HER2 mutations are found in approximately 2 - 4% of NSCLC patients, occurring most commonly in non-smoking women with adenocarcinoma. HER2 gene mutations in NSCLC typically occur in exons 18 - 21, with an in-frame insertion in exon 20 most frequently identified, and result in constitutive activation of the enzyme. They are typically mutually exclusive with EGFR, KRAS, and ALK mutations, and may predict response to anti-HER2 inhibitor therapies such as traztuzumab or afatinib (Josesito J, et al. J Clin Oncol 2013;31:3721-0214; Corie S, Barakat S. Veronique Oncol 2012;23(March (Suppl. 10)):u861-0973. Vaughn Shepard. Lancet Oncol 2011;12:175-80) refs 16, 22.). KRAS (Ronit rat sarcoma viral oncogene homolog) encodes a small self-inactivating GTP-ase that is a member of the JET family of oncogenes, and serves as a signal transducer in response to stimuli from upstream cell-surface receptors. Activating mutations in KRAS are identified in 20-25% of lung adenocarcinomas. The majority of KRAS mutations in lung cancer are found in codons 12 and 13 in exon 2, and less frequently in codon 61 in exon 3. KRAS mutations are more often found in smokers, and less commonly in Asians. 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 Performed By: #### L UNGCY, FSHTPA #### [facility] CLIA [id number] [address] [facility] DESK [id number] [id number] [facility] #### [place] #### [facility] CLIA [id number] [address] [id number] [facility] [place] NURSING PROGon 06-14-2022 NURSING PROG HNO ID: [id number] Author: Heidi Dela Cruz RN Service: ? Author Type: Registered Nurse Type: Nursing Progress Note Filed: 06/14/2022 11:40 AM Note Text: 1130 right chest medi port deaccessed 1135 pt given written and verbal dc instructions. Pt verbalized understanding [facility] NURSING PROG HNO ID: [id number] Author: Regina Short RN Service: Nursing Author Type: Registered Nurse Type: Nursing Progress Note Filed: 06/14/2022 8:21 AM Note Text: PATIENT EDUCATION TOPIC: PROCEDURE / SURGERY: Pre-op Teaching: EBUS PATIENT NAME: Raghavendra Heard PATIENT LOCATION: [facility] ENDO POOL/[facility] ENDO POOL READINESS TO LEARN COGNITIVE ABILITY: Alert and oriented MOTIVATION TO LEARN: Eager FAMILY SUPPORT: Unable to assess - Family not present INSTRUCTION PROVIDED TO: Patient PATIENT LEARNS BEST BY: Individual Instruction Verbal Instruction FACTORS AFFECTING LEARNING: None PHYSICAL LIMITATIONS AFFECTING LEARNING: None LEARNING RESPONSE DIAGNOSIS: ADULT: EBUS PATIENT/FAMILY RESPONSE: Verbalizes understanding of: PRE-PROCEDURE INSTRUCTIONS-Correct action to take to follow pre-procedure instructions METHOD OF INSTRUCTION: Verbal instruction FOLLOW-UP PLAN: Complete - No need for follow-up INSTRUCTIONAL AIDS USED: NA SUPPLEMENTAL MATERIAL PROVIDED TO PATIENT: None REFERRAL (RECOMMENDATION): None Electronically Signed By: Regina Short [facility] PD-L1 22C3on 06-14-2022 PD-L1 BY IMMUNOHISTOCHEMISTY [facility] Comment on above: Order Comment: Speci men Type: TISSUE SPECIMEN Ordering Facility: [facility] Address: [address] [place], [place] [id number] Result Comment: Immu nohistochemistry for PD-L1 expression Tumor Cells Positive: less than 1% Block Analyzed: A1 PD-L1 Clone: 22C3 Comment: N/A RI/ 06/22/2022 Immunohistochemistry was performed on formalin fixed paraffin-embedded tissue using the mouse monoclonal antibody 22C3 ([employer]; [place], [place]) followed by ultrasensitive bright field detection (Optiview with amplification [[employer], [place]]). Criteria for interpretation require that tumor cells show membrane staining of any intensity for PD-L1. Laboratory Developed Test (LDT) Disclaimer: Positive and negative controls stain appropriately. Performance characteristics of immunohistochemical, immunofluorescent and chromogenic in-situ hybridization tests have been determined by [facility] Pathology and Laboratory Medicine [place] ([facility]) in a manner consistent with CLIA requirements. One or more of these tests have not been cleared or approved by the FDA. [facility] is regulated under CLIA as qualified to perform high-complexity testing. These tests are used for clinical purposes. They should not be regarded as investigational or for research. Electronically signed out by: Ralph Galvez MD Performed By: #### S , [id number] #### [facility] CLIA [id number] [address] [place] [address] [place] SURGICAL PATHOLOGYon CASE REPORT Normal [facility] Comment on above: Order Comment: Speci men Type: TISSUE SPECIMEN Ordering Facility: [facility] Address: [address] [place] [phone] Result Comment: Surg [facility] Pathology Report Case: [id number] Authorizing Provider: Henri Anderson MD Collected: 06/14/2022 10:03 AM Ordering Location: [facility] Received: 06/14/2022 11:35 AM Endoscopy - ENDO Pathologist: Ralph Galvez V, MD Specimens: A) - TRANSBRONCHIAL BIOPSY, 10R B) - ENDOBRONCHIAL BIOPSY, right main stem Performed By: #### S , [id number] #### [facility] CLIA [id number] [address] STATES OF [place] CLINICAL HISTORY Normal [facility] Comment on above: Order Comment: Speci men Type: TISSUE SPECIMEN Ordering Facility: [facility] Address: [address] [address] Result Comment: Pre- op diagnosis: Adenopathy [R59.9] Performed By: #### S , [id number] #### [facility] CLIA [id number] [address] [place] [address] OF [place] FINAL DIAGNOSIS Normal [facility] Comment on above: Order Comment: Speci men Type: TISSUE SPECIMEN Ordering Facility: [facility] Address: [address] [address] Result Comment: 1. L ymph node, 10 R, EBUS transbronchial biopsy (A) - Adenocarcinoma. 2. Right lung, mainstem, endobronchial biopsy (B) - Fragments of bronchial mucosa with necrosis and atypical squamous epithelium. RI/ 06/15/2022 Performed By: #### S , [id number] #### [facility] CLIA [id number] [address] [place] [address] STATES OF [facility] FINAL PERFORMING LAB Normal [facility] Comment on above: Order Comment: Speci men Type: TISSUE SPECIMEN Ordering Facility: [facility] Address: [address] [place] [address] Result Comment: Diag nostic interpretation performed at [facility], [facility] [address] CLIA# [id number] Glue Spreading Machine Operator: Dimitri Kelley M.D. Performed By: #### S , [id number] #### [facility] CLIA [id number] [address] [place] [address] [place] GROSS DESCRIPTION Normal [facility] Comment on above: Order Comment: Speci men Type: TISSUE SPECIMEN Ordering Facility: [facility] Address: [address] [address] Result Comment: A. T RANSBRONCHIAL BIOPSY Received in formalin are multiple red-brown, soft feathery segments of tissue aggregating to 2.8 x 0.8 x 0.2 cm. Totally submitted in one cassette. B. ENDOBRONCHIAL BIOPSY Received in formalin is one segment of cylindrical tissue measuring 1.3 x 0.2 x 0.2 cm, brown-brown and of a soft and friable consistency. Totally submitted in one cassette. BC June 14, 2022 5:45 PM Gross examination performed at [facility], [facility] [place] [address] Performed By: #### S , [id number] #### [facility] CLIA [id number] [address] [facility] DESK [id number] [place] 06-13-2022 CNPN Telephone (Avanc[facility] MODO) -- RAGHAVENDRA HEARD ([id number]) 1945 M Date Time Provider Department 06/13/22 HENRI ANDERSON [facility] During your visit today, we recorded the following information about you: Yonyugo Booker 06/13/2022 11:29 AM Signed Spoke with the patient confirmed 8 am arrival time for 9 am appointment at [facility] Pratikfrederick Booker Allergies As of Date: 06/13/2022 (No Known Allergies) Date Reviewed: 05/30/2022 Reviewed by: Skylar Gsapar - Fully Assessed Reason for Visit: Appointment [186] Prescriptions as of 06/13/2022 - meloxicam (MOBIC) 15 mg tablet TAKE 1 TABLET BY MOUTH EVERY DAY - HYDROcodone-acetaminophen (NORCO) 5-325 mg per tablet Take 2 tablets by mouth every 6 hours as needed. - prochlorperazine (COMPAZINE) 10 mg tablet Take 1 tablet by mouth every 6 hours as needed. - metoprolol succinate ER (TOPROL XL) 25 mg 24 hr tablet Take 25 mg by mouth once daily. - mv-mn/iron/folic acid/herb 190 (VITAMIN D3 COMPLETE ORAL) Take by mouth. - DULoxetine (CYMBALTA) 60 mg capsule Take 1 capsule by mouth twice daily. - clonazePAM (KLONOPIN) 1 mg tablet Take 1 tablet by mouth three times daily as needed for up to 30 days. - docusate sodium (COLACE) 100 mg capsule TAKE 2 CAPSULES BY MOUTH TWICE A DAY - senna (SENNA LAXATIVE) 8.6 mg tab Take 2 tablets by mouth twice daily. - famciclovir (FAMVIR) 250 mg tablet TAKE 1 TABLET BY MOUTH TWICE A DAY - gabapentin (NEURONTIN) 300 mg capsule TAKE 2 CAPSULES BY MOUTH THREE TIMES DAILY FOR 90 DAYS - ZINC ORAL Take by mouth. - melatonin 10 mg cap TAKE 1 CAPSULE BY MOUTH EVERYDAY AT BEDTIME - tamsulosin ER (FLOMAX) 0.4 mg cap - baclofen (LIORESAL) 10 mg tablet Take 10 mg by mouth three times daily. - calcium carbonate (CALCIUM 600) 600 mg calcium (1,500 mg) tab Take 600 mg by mouth. - naproxen sodium (ALEVE ORAL) Take by mouth. - nitroglycerin sublingual (NITROQUICK) 0.4 mg SL tablet Dissolve 0.4 mg under the tongue every 5 minutes as needed. - Aspirin 81 mg CpDR Take 81 mg by mouth once daily. - atorvastatin 40 mg tablet Take 40 mg by mouth once daily. - DOCOSAHEXANOIC ACID/EPA (FISH OIL ORAL) Take by mouth. 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/2021 Lung cancer (HCC) [C34.90] 05/03/2022 Malignant neoplasm of upper lobe of right lung *05/03/2022 Encounter Status:Closed by MICHAEL BOOKER on 06/13/22 [facility] CBC W Auto Differential pane l (Bld)on 05-30-2022 Basophils (Bld) [#/Vol] 0.03 10*3/uL <0.11 k/uL [facility] Basophils/100 WBC (Bld) 0.7 % [facility] Differential cell count method Nom (Bld) Auto [facility] Eosinophils (Bld) [#/Vol] 0.08 10*3/uL <0.46 k/uL [facility] Eosinophils/100 WBC (Bld) 1.8 % [facility] Erythrocyte distribution width (RBC) [Ratio] 13.4 % 11.5 - 15.0 % [facility] Hematocrit (Bld) [Volume fraction] 32.4 % Low 39.0 - 51.0 % [facility] Hemoglobin (Bld) [Mass/Vol] 11.0 g/dL Low 13.0 - 17.0 g/dL [facility] Immature granulocytes (Bld) [#/Vol] 0.03 10*3/uL <0.10 k/uL [facility] Immature granulocytes/100 WBC (Bld) 0.7 % [facility] Lymphocytes (Bld) [#/Vol] 1.76 10*3/uL 1.00 - 4.00 k/uL [facility] Lymphocytes/100 WBC (Bld) 40.1 % [facility] MCH (RBC) [Entitic mass] 35.5 pg High 26.0 - 34.0 pg [facility] MCHC (RBC) [Mass/Vol] 34.0 g/dL 30.5 - 36.0 g/dL [facility] MCV (RBC) [Entitic vol] 104.5 fL High 80.0 - 100.0 fL [facility] Monocytes (Bld) [#/Vol] 0.42 10*3/uL <0.87 k/uL [facility] Monocytes/100 WBC (Bld) 9.6 % [facility] Neutrophils (Bld) [#/Vol] 2.07 10*3/uL 1.45 - 7.50 k/uL [facility] Neutrophils/100 WBC (Bld) 47.1 % [facility] Nucleated RBC (Bld) [#/Vol] <0.01 k/uL [facility] Nucleated RBC/100 WBC (Bld) [Ratio] 0.0 /100 WBC [facility] Platelet mean volume (Bld) [Entitic vol] 9.9 fL 9.0 - 12.7 fL [facility] Platelets (Bld) [#/Vol] 198 10*3/uL 150 - 400 k/uL [facility] RBC (Bld) [#/Vol] 3.10 10*6/uL Low 4.20 - 6.0 0 m/uL [facility] WBC (Bld) [#/Vol] 4.39 10*3/uL 3.70 - 11.00 k/uL [facility] Comprehensive metabolic 2000 panelon 05-30-2022 Albumin [Mass/Vol] 4.0 g/dL 3.9 - 4.9 g/dL [facility] ALP [Catalytic activity/Vol] 55 U/L 38 - 113 U/L [facility] ALT [Catalytic activity/Vol] 19 U/L 10 - 54 U/L [facility] Anion gap [Moles/Vol] 8 mmol/L Low 9 - 18 mmol/L [facility] AST [Catalytic activity/Vol] 24 U/L 14 - 40 U/L [facility] Bilirubin [Mass/Vol] 0.2 mg/dL 0.2 - 1 .3 mg/dL [facility] Calcium [Mass/Vol] 9.1 mg/dL 8.5 - 10. 2 mg/dL [facility] Chloride [Moles/Vol] 102 mmol/L 97 - 10 5 mmol/L [facility] CO2 [Moles/Vol] 29 mmol/L 22 - 30 mmol/L [facility] Creatinine [Mass/Vol] 0.97 mg/dL 0.73 - 1.22 mg/dL [facility] Estimated Glomerular Filtration Rate 81 mL/min/1.73m >=60 mL/min/1.73 m [facility] Glucose [Mass/Vol] 116 mg/dL High 74 - 99 mg/dL [facility] Potassium [Moles/Vol] 4.2 mmol/L 3.7 - 5.1 mmol/L [facility] Protein [Mass/Vol] 7.4 g/dL 6.3 - 8.0 g/dL [facility] Sodium [Moles/Vol] 139 mmol/L 136 - 144 mmol/L [facility] Urea nitrogen [Mass/Vol] 24 mg/dL 9 - 24 mg/dL [facility] BRIEF OP NOTon 05-23-2022 BRIEF OP NOT HNO ID: [id number] Author: Ry Espinoza MD Service: Interventional Radiology Author Type: Physician Type: Brief Op Note Filed: 05/23/2022 1:04 PM Note Text: BRIEF OPERATIVE / PROCEDURE NOTE LOG ID: [id number] SURGERY/PROCEDURE DATE: 05/23/2022 INCISION/PROCEDURE START TIME: 12:37 PM INCISION CLOSE/PROCEDURE END TIME: 1:01 PM SURGEON(S)/PROCEDURALIST(S ) AND VIDEO MACHINES MECHANIC(S): Surgeon(s) and Role: * Ry Espinoza MD - Primary No Additional Staff SURGERY/PROCEDURE(S): Port Placement ANESTHESIA: Procedural Sedation FINDINGS: see PACS. ESTIMATED BLOOD LOSS: less than 10 mls SPECIMENS: None COMPLICATIONS: None 8 Fr [place]ong Port, ready to use. PRE-OP/PRE-PROCEDURE DIAGNOSIS: Lung Cancer POST-OP/POST-PROCEDURE DIAGNOSIS: Same as Preop SIGNATURE: Ry Espinoza MD PATIENT NAME: Raghavendra Heard DATE: May 23, 2022 TIME: 1:04 PM [facility] HISTORY PHYSICALon HISTORY PHYSICAL HNO ID: [id number] Author: Ry Espinoza MD Service: Interventional Radiology Author Type: Physician Type: HANDP Filed: 05/23/2022 12:21 PM Note Text: INTERVENTIONAL RADIOLOGY PROCEDURAL SEDATION HISTORY AND PHYSICAL EXAM SERVICE DATE: 05/23/2022 SERVICE TIME: 12:20 PM Subjective HPI: This is a 77 year old male who presents with history of lung cancer and need for chemotherapy. PAST ANESTHESIA HISTORY: No adverse events PAST MEDICAL HISTORY Diagnosis Date Anxiety Enlarged prostate HTN (hypertension) Hypercholesteremia Multiple myeloma, without mention of having achieved remission PAST SURGICAL HISTORY Procedure Laterality Date REMOVAL OF LUNG,LOBECTOMY Right 04/24/2019 right upper lobe Prior to Admission medications as of 05/23/22 1111 Medication Sig Last Dose Taking meloxicam (MOBIC) 15 mg tablet TAKE 1 TABLET BY MOUTH EVERY DAY 05/23/2022 Yes HYDROcodone-acetaminophen (NORCO) 5-325 mg per tablet Take 2 tablets by mouth every 6 hours as needed. 05/23/2022 Yes metoprolol succinate ER (TOPROL XL) 25 mg 24 hr tablet Take 25 mg by mouth once daily. 05/23/2022 Yes mv-mn/iron/folic acid/herb 190 (VITAMIN D3 COMPLETE ORAL) Take by mouth. 05/23/2022 Yes DULoxetine (CYMBALTA) 60 mg capsule Take 1 capsule by mouth twice daily. 05/23/2022 Yes docusate sodium (COLACE) 100 mg capsule TAKE 2 CAPSULES BY MOUTH TWICE A DAY 05/23/2022 Yes senna (SENNA LAXATIVE) 8.6 mg tab Take 2 tablets by mouth twice daily. 05/23/2022 Yes famciclovir (FAMVIR) 250 mg tablet TAKE 1 TABLET BY MOUTH TWICE A DAY 05/23/2022 Yes tamsulosin ER (FLOMAX) 0.4 mg cap 05/23/2022 Yes baclofen (LIORESAL) 10 mg tablet Take 10 mg by mouth three times daily. 05/23/2022 Yes Aspirin 81 mg CpDR Take 81 mg by mouth once daily. 05/23/2022 Yes atorvastatin 40 mg tablet Take 40 mg by mouth once daily. 05/22/2022 Yes DOCOSAHEXANOIC ACID/EPA (FISH OIL ORAL) Take by mouth. 05/23/2022 Yes ondansetron (ZOFRAN) 8 mg tablet Take 1 tablet by mouth every 8 hours as needed for nausea/vomiting. prochlorperazine (COMPAZINE) 10 mg tablet Take 1 tablet by mouth every 6 hours as needed. clonazePAM (KLONOPIN) 1 mg tablet Take 1 tablet by mouth three times daily as needed for up to 30 days. gabapentin (NEURONTIN) 300 mg capsule TAKE 2 CAPSULES BY MOUTH THREE TIMES DAILY FOR 90 DAYS ZINC ORAL Take by mouth. melatonin 10 mg cap TAKE 1 CAPSULE BY MOUTH EVERYDAY AT BEDTIME calcium carbonate (CALCIUM 600) 600 mg calcium (1,500 mg) tab Take 600 mg by mouth. naproxen sodium (ALEVE ORAL) Take by mouth. Patient not taking: No sig reported nitroglycerin sublingual (NITROQUICK) 0.4 mg SL tablet Dissolve 0.4 mg under the tongue every 5 minutes as needed. ALLERGIES No Known Allergies Objective PHYSICAL EXAM: AIRWAY: Mallampati: II LUNGS: CARDIAC: Regular rhythm, Assessment/Plan ASA Class: ASA Class:: Patient with severe systemic disease Active Problems: * No active hospital problems. * Resolved Problems: * No resolved hospital problems. * Medication and Non-Pharmacologic VTE Prophylaxis/Anticoagulants VTE Prophylaxis: Not indicated for procedure Provisional Diagnosis/Treatment Plan: Port Placement for chemotherapy. SEDATION GOAL: Moderate SIGNATURE: Ry Espinoza MD PATIENT NAME: Raghavendra Heard DATE: May 23, 2022 TIME: 12:20 PM [facility] IR FLU GD MICHAEL CVA PLACEon IR FLU GD MICHAEL CVA PLACE * * *Final Report* * * DATE OF EXAM: May 23 2022 1:03PM [facility] 7444 - IR FLU GD MICHAEL CVA PLACE / PROCEDURE REASON: Malignant neoplasm of upper lobe of right lung (HCC) [C34.11] * * * * Physician Interpretation * * * * PROCEDURE: VENOUS PORT PLACEMENT Procedural Personnel Attending physician(s): Ry Espinoza M.D. Fellow physician(s): None Resident physician(s): None Advanced practice provider(s): None Medical Student(s): None Pre-procedure diagnosis: Lung cancer Post-procedure diagnosis: Same Indication: Administration of chemotherapy Additional clinical history: None PROCEDURE SUMMARY: - Venous access with ultrasound guidance - Tunneled port insertion under fluoroscopic guidance - Additional procedure(s): None PROCEDURE DETAILS: Pre-procedure Consent: Consent obtained with the patient as documented. Medication reconciliation: Done Carine-procedure discussion: The appropriate elements of the pre-procedure discussion, safety check list and sign-out were performed. Time out was completed before start of procedure. Preparation (MIPS): The site was prepared and draped using all elements of maximal sterile barrier technique including sterile gloves, sterile gown, cap, mask, large sterile sheet, sterile ultrasound probe cover, hand hygiene and cutaneous antisepsis with 2% chlorhexidine. Medical reason for site preparation exception (MIPS): Not applicable Contrast: Contrast agent: Contrast volume (mL): Image Guidance: Fluoroscopic and sonographic guidance with digital image storage Radiation/Dose: FLUOROSCOPIC RADIATION SUMMARY: Plane A, Air Kerma: 2.9 mGy Dose Area Product (DAP): 4840.0 mGy*cm2 Fluoro Time: 0:24 min:sec Radiation dose exceed 3.5 Gy: No If radiation dose exceeded 3.5 Gy, was counseling and instructional brochure provided: N/A Anesthesia/Sedation: Level of anesthesia/sedation: No sedation Anesthesia/sedation administered by: Not applicable Total intra-service sedation time (minutes): Local anesthesia: 1 % lidocaine Antibiotics and meds: Cefazolin Antibiotic infusion start time: 1228 Prophylactic antibiotic administered: None Additional med: None Additional med: None Start of procedure: 1237 End of procedure: 1302 TECHNIQUE: Patient position: Supine Access Local anesthesia was administered. The vessel was sonographically evaluated and determined to be patent. Real time ultrasound was used to visualize needle entry into the vessel and a permanent image was stored. Vein accessed: Internal jugular vein Access technique: Micropuncture set with 21 gauge needle Venography Indication for venography: Not performed Vein catheterized: Not applicable Findings: Not applicable Port placement An incision was made at the upper chest, a pocket was created, and the catheter was tunneled subcutaneously to the venous access site and trimmed to appropriate length. The port was inserted into the pocket and the catheter was advanced via a peel-away sheath into the vein under fluoroscopic guidance. The port was sutured into the pocket using absorbable suture. Catheter tip location was fluoroscopically verified and a permanent image was stored. Port placed: 8 F BARD PowerPort by - Groshong (distal valved) silicone catheter with pressure injectable titanium port. Catheter flush: Normal saline Closure The access site and incision were closed and sterile dressing(s) were applied. Sponge counts were ascertained. Access site closure technique: Absorbable suture and tissue adhesive Incision closure technique: Absorbable suture and tissue adhesive Patient discharged from procedure suite with device accessed: No Additional Details Additional description of procedure: None Equipment details: None Number and Type of Removed Specimens: : N/A Estimated blood loss (mL): Less than 10 Standardized report: SIR_Port_v3 COMPLICATIONS: No immediate complications CONCLUSION: The patient was comfortable and was transferred to the recovery room in stable condition. The procedure was performed by the: attending radiologist, without an medical assistant instructor. The attending radiologist performed the following procedural activities: Entire procedure IMPRESSION: INSERTION OF RIGHT-SIDED POWER-INJECTABLE SINGLE-LUMEN TUNNELED CHEST PORT, WITH CATHETER TIP IN THE EXPECTED LOCATION OF THE RIGHT ATRIUM. PLAN: THE PORT MAY BE USED IMMEDIATELY. RECOMMEND NORMAL SALINE FLUSH INTERVAL OF 90 DAYS WHEN NOT BEING USED. ATTESTATION: Signer name: Ry Espinoza MD I attest that I was present for the entire procedure. I reviewed the stored images and agree with the report as written. Business Process Associate: LAKSHMI Transcribe Date/Time: May 23 2022 1:05P Dictated by : RY ESIPNOZA MD This examination was interpreted and the report reviewed and electronicall (more content not included)... [facility] IR PORTOCATH PLACEMENTon IR PORTOCATH PLACEMENT * * *Final Report * * * DATE OF EXAM: May 23 2022 1:03PM [facility] 8966 - IR PORTOCATH PLACEMENT / PROCEDURE REASON: Malignant neoplasm of upper lobe of right lung (HCC) [C34.11] * * * * Physician Interpretation * * * * PROCEDURE: VENOUS PORT PLACEMENT Procedural Personnel Attending physician(s): Ry Espinoza M.D. Fellow physician(s): None Resident physician(s): None Advanced practice provider(s): None Medical Student(s): None Pre-procedure diagnosis: Lung cancer Post-procedure diagnosis: Same Indication: Administration of chemotherapy Additional clinical history: None PROCEDURE SUMMARY: - Venous access with ultrasound guidance - Tunneled port insertion under fluoroscopic guidance - Additional procedure(s): None PROCEDURE DETAILS: Pre-procedure Consent: Consent obtained with the patient as documented. Medication reconciliation: Done Carine-procedure discussion: The appropriate elements of the pre-procedure discussion, safety check list and sign-out were performed. Time out was completed before start of procedure. Preparation (MIPS): The site was prepared and draped using all elements of maximal sterile barrier technique including sterile gloves, sterile gown, cap, mask, large sterile sheet, sterile ultrasound probe cover, hand hygiene and cutaneous antisepsis with 2% chlorhexidine. Medical reason for site preparation exception (MIPS): Not applicable Contrast: Contrast agent: Contrast volume (mL): Image Guidance: Fluoroscopic and sonographic guidance with digital image storage Radiation/Dose: FLUOROSCOPIC RADIATION SUMMARY: Plane A, Air Kerma: 2.9 mGy Dose Area Product (DAP): 4840.0 mGy*cm2 Fluoro Time: 0:24 min:sec Radiation dose exceed 3.5 Gy: No If radiation dose exceeded 3.5 Gy, was counseling and instructional brochure provided: N/A Anesthesia/Sedation: Level of anesthesia/sedation: No sedation Anesthesia/sedation administered by: Not applicable Total intra-service sedation time (minutes): Local anesthesia: 1 % lidocaine Antibiotics and meds: Cefazolin Antibiotic infusion start time: 1228 Prophylactic antibiotic administered: None Additional med: None Additional med: None Start of procedure: 1237 End of procedure: 1302 TECHNIQUE: Patient position: Supine Access Local anesthesia was administered. The vessel was sonographically evaluated and determined to be patent. Real time ultrasound was used to visualize needle entry into the vessel and a permanent image was stored. Vein accessed: Internal jugular vein Access technique: Micropuncture set with 21 gauge needle Venography Indication for venography: Not performed Vein catheterized: Not applicable Findings: Not applicable Port placement An incision was made at the upper chest, a pocket was created, and the catheter was tunneled subcutaneously to the venous access site and trimmed to appropriate length. The port was inserted into the pocket and the catheter was advanced via a peel-away sheath into the vein under fluoroscopic guidance. The port was sutured into the pocket using absorbable suture. Catheter tip location was fluoroscopically verified and a permanent image was stored. Port placed: 8 F BARD PowerPort by - Groshong (distal valved) silicone catheter with pressure injectable titanium port. Catheter flush: Normal saline Closure The access site and incision were closed and sterile dressing(s) were applied. Sponge counts were ascertained. Access site closure technique: Absorbable suture and tissue adhesive Incision closure technique: Absorbable suture and tissue adhesive Patient discharged from procedure suite with device accessed: No Additional Details Additional description of procedure: None Equipment details: None Number and Type of Removed Specimens: : N/A Estimated blood loss (mL): Less than 10 Standardized report: SIR_Port_v3 COMPLICATIONS: No immediate complications CONCLUSION: The patient was comfortable and was transferred to the recovery room in stable condition. The procedure was performed by the: attending radiologist, without an medical assistant instructor. The attending radiologist performed the following procedural activities: Entire procedure IMPRESSION: INSERTION OF RIGHT-SIDED POWER-INJECTABLE SINGLE-LUMEN TUNNELED CHEST PORT, WITH CATHETER TIP IN THE EXPECTED LOCATION OF THE RIGHT ATRIUM. PLAN: THE PORT MAY BE USED IMMEDIATELY. RECOMMEND NORMAL SALINE FLUSH INTERVAL OF 90 DAYS WHEN NOT BEING USED. ATTESTATION: Signer name: Ry Espinoza MD I attest that I was present for the entire procedure. I reviewed the stored images and agree with the report as written. Business Process Associate: PSCB Transcribe Date/Time: May 23 2022 1:05P Dictated by : RY ESPINZOA MD This examination was interpreted and the report reviewed and electronically (more content not included)... [facility] IR US VASCULAR ACCESS GUIDEo n 05-23-2022 IR US VASCULAR ACCESS GUIDE * * *Final Report* * * DATE OF EXAM: May 23 2022 1:03PM [facility] 7765 - IR US VASCULAR ACCESS GUIDE / PROCEDURE REASON: Malignant neoplasm of upper lobe of right lung (HCC) [C34.11] * * * * Physician Interpretation * * * * PROCEDURE: VENOUS PORT PLACEMENT Procedural Personnel Attending physician(s): Ry Espinoza M.D. Fellow physician(s): None Resident physician(s): None Advanced practice provider(s): None Medical Student(s): None Pre-procedure diagnosis: Lung cancer Post-procedure diagnosis: Same Indication: Administration of chemotherapy Additional clinical history: None PROCEDURE SUMMARY: - Venous access with ultrasound guidance - Tunneled port insertion under fluoroscopic guidance - Additional procedure(s): None PROCEDURE DETAILS: Pre-procedure Consent: Consent obtained with the patient as documented. Medication reconciliation: Done Carine-procedure discussion: The appropriate elements of the pre-procedure discussion, safety check list and sign-out were performed. Time out was completed before start of procedure. Preparation (MIPS): The site was prepared and draped using all elements of maximal sterile barrier technique including sterile gloves, sterile gown, cap, mask, large sterile sheet, sterile ultrasound probe cover, hand hygiene and cutaneous antisepsis with 2% chlorhexidine. Medical reason for site preparation exception (MIPS): Not applicable Contrast: Contrast agent: Contrast volume (mL): Image Guidance: Fluoroscopic and sonographic guidance with digital image storage Radiation/Dose: FLUOROSCOPIC RADIATION SUMMARY: Plane A, Air Kerma: 2.9 mGy Dose Area Product (DAP): 4840.0 mGy*cm2 Fluoro Time: 0:24 min:sec Radiation dose exceed 3.5 Gy: No If radiation dose exceeded 3.5 Gy, was counseling and instructional brochure provided: N/A Anesthesia/Sedation: Level of anesthesia/sedation: No sedation Anesthesia/sedation administered by: Not applicable Total intra-service sedation time (minutes): Local anesthesia: 1 % lidocaine Antibiotics and meds: Cefazolin Antibiotic infusion start time: 1228 Prophylactic antibiotic administered: None Additional med: None Additional med: None Start of procedure: 1237 End of procedure: 1302 TECHNIQUE: Patient position: Supine Access Local anesthesia was administered. The vessel was sonographically evaluated and determined to be patent. Real time ultrasound was used to visualize needle entry into the vessel and a permanent image was stored. Vein accessed: Internal jugular vein Access technique: Micropuncture set with 21 gauge needle Venography Indication for venography: Not performed Vein catheterized: Not applicable Findings: Not applicable Port placement An incision was made at the upper chest, a pocket was created, and the catheter was tunneled subcutaneously to the venous access site and trimmed to appropriate length. The port was inserted into the pocket and the catheter was advanced via a peel-away sheath into the vein under fluoroscopic guidance. The port was sutured into the pocket using absorbable suture. Catheter tip location was fluoroscopically verified and a permanent image was stored. Port placed: 8 F BARD PowerPort by - Groshong (distal valved) silicone catheter with pressure injectable titanium port. Catheter flush: Normal saline Closure The access site and incision were closed and sterile dressing(s) were applied. Sponge counts were ascertained. Access site closure technique: Absorbable suture and tissue adhesive Incision closure technique: Absorbable suture and tissue adhesive Patient discharged from procedure suite with device accessed: No Additional Details Additional description of procedure: None Equipment details: None Number and Type of Removed Specimens: : N/A Estimated blood loss (mL): Less than 10 Standardized report: SIR_Port_v3 COMPLICATIONS: No immediate complications CONCLUSION: The patient was comfortable and was transferred to the recovery room in stable condition. The procedure was performed by the: attending radiologist, without an medical assistant instructor. The attending radiologist performed the following procedural activities: Entire procedure IMPRESSION: INSERTION OF RIGHT-SIDED POWER-INJECTABLE SINGLE-LUMEN TUNNELED CHEST PORT, WITH CATHETER TIP IN THE EXPECTED LOCATION OF THE RIGHT ATRIUM. PLAN: THE PORT MAY BE USED IMMEDIATELY. RECOMMEND NORMAL SALINE FLUSH INTERVAL OF 90 DAYS WHEN NOT BEING USED. ATTESTATION: Signer name: Ry Espinoza MD I attest that I was present for the entire procedure. I reviewed the stored images and agree with the report as written. Business Process Associate: PSCB Transcribe Date/Time: May 23 2022 1:05P Dictated by : RY ESPINOZA MD This examination was interpreted and the report reviewed and electroni (more content not included)... Normal [facility] PT EDon 05-23-2022 PT ED HNO ID: [id number] Author: Meli Newman RN Service: Nursing Author Type: Registered Nurse Type: Patient Education Filed: 05/23/2022 12:18 PM Note Text: PATIENT EDUCATION TOPIC: PROCEDURE / SURGERY: Procedure/Surgery: port placement PATIENT NAME: Raghavendra Heard PATIENT LOCATION: [facility] Proc/[facility] Proc READINESS TO LEARN COGNITIVE ABILITY: Alert and oriented MOTIVATION TO LEARN: Interested FAMILY SUPPORT: None - Unavailable/disinterested INSTRUCTION PROVIDED TO: Patient PATIENT LEARNS BEST BY: Verbal Instruction FACTORS AFFECTING LEARNING: None PHYSICAL LIMITATIONS AFFECTING LEARNING: None LEARNING RESPONSE DIAGNOSIS: ADULT: need for therapy PATIENT/FAMILY RESPONSE: Verbalizes understanding of: POST-PROCEDURE INSTRUCTIONS-Correct actions to take to reduce post procedure complications PRE-PROCEDURE INSTRUCTIONS-Correct action to take to follow pre-procedure instructions METHOD OF INSTRUCTION: Verbal instruction FOLLOW-UP PLAN: Patient instructed to call with any further issues Follow-up with Primary Care INSTRUCTIONAL AIDS USED: NA SUPPLEMENTAL MATERIAL PROVIDED TO PATIENT: homegoing instructions on sedation and port placement placed in chart. REFERRAL (RECOMMENDATION): None Electronically Signed By: Meli Newman Normal [facility] GLUCOSE, BLOOD (POC)on 04-28 Glucose [Mass/Vol] 103 mg/dL Abnormal 74 - 99 mg/dL [facility] Comment on above: Location:[facility], [address] , [place], [place], [address] The Accu-Chek Inform II glucose meter has not been approved for testing on patients receiving intensive medical intervention or therapy and results from this point of care glucose test should not be used for patient management decisions in these cases. Inaccurate results may also occur from other interfering factors, such as N-acetylcysteine (blood concentrations of greater than 5mg/dL), galactose, extremes of hematocrit (<10 or >65), or high doses of ascorbic acid (vitamin C) greater than 3mg/dL. Consider alternate testing mechanisms (e.g. core lab, blood gas instrument) in the above situations. Interpretation and review of laboratory results Abnormal [facility] PET+CT Guidance for localiza tion of tumor of Skull base to mid-thigh-- W 18F-FDG Eleanor 04-28-2022 IMPRESSION: Head and Neck: * No evidence of FDG avid neoplastic process Chest: * 1.1 cm worsening right perihilar nodule concerning for neoplasm/recurrence. * No evidence of FDG avid thoracic lymphadenopathy, as described. Abdomen and pelvis: * No evidence of FDG avid neoplastic process Musculoskeletal: * No neoplastic hypermetabolic lesions NOTE: This report was created using voice recognition dictation software. If there is a concern for errors, please have the clinician contact the report author for clarification. Transcribe Date/Time: Apr 28 2022 9:57A Dictated by: MARI JORGE MD This examination was interpreted and the report reviewed and electronically signed by: KWESI PALMER MD on Apr 28 2022 11:48AM EST Thank you for allowing us to participate in the care of your patient. Should there be any questions regarding this interpretation, please call [phone]. If you are unable to reach us at the number above, please feel free to contact [facility] at [phone]. 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 Chest CT 03/30/2022 demonstrates new 1.1 cm right lower lobe perihilar nodular opacity adjacent to surgical clips. INDICATION: Subsequent treatment strategy. TECHNIQUE: 0829 mCi F-18 FDG IV, followed about 1 hour later by PET imaging from base of the skull to proximal femur. Non contrast CT was performed for attenuation correction and anatomic localization purposes. CT Dose-Length Product (DLP): 204 mGy*cm. CT Dose Reduction Employed: Yes BLOOD GLUCOSE: 103 mg/dL COMPARISON: CT chest 03/30/2022. PET/CT 12/27/2020 report. CORRELATION: No recent pertinent RESULT: Note- The SUV value is for reference purposes. Due to technical factors and uncontrolled variables, caution is advised when using SUV to differentiate malignant from nonmalignant processes, or to assess follow-up/treatment response. Reference max SUV: Mediastinum blood pool activity: max SUV 2.6 Background liver activity: max SUV 3.5 HEAD AND NECK: No pathologically enlarged or hypermetabolic cervical lymphadenopathy. Uptake in the oral cavity, tonsils, salivary glands, extraocular muscles is likely physiologic. Substantially limited evaluation of the intracranial structures due to the physiologic melgoza matter uptake. CHEST: Lungs and tracheobronchial tree: Hypermetabolic 1.1 cm right perihilar pulmonary nodule, SUV max 9.6, previously 5.5. Redemonstrated multiple, partially calcified pleural-based nodules. Anteroinferior right middle lobe groundglass opacity with SUV max 2.8, likely related to atelectasis versus aspiration/infection. Redemonstrated postsurgical changes of right upper lobectomy. Paraseptal emphysematous change. Pleura and pericardium: No significantly FDG avid pleural effusion. Mediastinum and Lymph nodes: No hypermetabolic axillary, hilar, or mediastinal lymphadenopathy. Faint right hilar uptake on 4:118 with max SUV 4.1, previously 3.8 with underlying calcifications, likely secondary to infectious/inflammatory process; attention follow-up studies. Chest wall: No hypermetabolic lesion ABDOMEN AND PELVIS: Liver: Mildly heterogeneous uptake, no definite hypermetabolic lesion. Biliary: No focal FDG avidity. Spleen: No FDG avidity. No splenomegaly. Pancreas: No abnormal FDG avidity or duct dilation. Adrenals: No FDG avid lesion right adrenal. No FDG avid lesion left adrenal. tract: Within the limitation of the physiologic FDG excretion no hydronephrosis or grossly hypermetabolic lesion. GI tract: Areas of uptake are favored to be physiologic or due to medication effect, which limits evaluation of underlying lesions. Lymph nodes: No abdominal or pelvic hypermetabolic lymphadenopathy. Mesentery/Peritoneum: No focal hypermetabolic lesion. Vasculature: Vascular patency cannot be assessed due to lack of IV contrast. There are atherosclerotic calcifications without aneurysmal dilation. Mild infrarenal aortic ectasia measuring up to 2.8 cm, not significantly changed. Pelvis: No focal hypermetabolic lesion. Abdominopelvic wall: No hypermetabolic lesion MUSCULOSKELETAL: There are no hypermetabolic osseous lesions. 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 Old nonunited posterior right eighth rib fracture. Pyrometallurgical Engineer (topogram) images: No additional findings. 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 Chest CT 03/30/2022 demonstrates new 1.1 cm right lower lobe perihilar nodular opacity adjacent to surgical clips. INDICATION: Subsequent treatment strategy. TECHNIQUE: 0829 mCi F-18 FDG IV, followed about 1 hour later by PET imaging from base of the skull to proximal femur. Non contrast CT was performed for attenuation correction and anatomic localization purposes. CT Dose-Length Product (DLP): 204 mGy*cm. CT Dose Reduction Employed: Yes BLOOD GLUCOSE: 103 mg/dL COMPARISON: CT chest 03/30/2022. PET/CT 12/27/2020 report. CORRELATION: No recent pertinent RESULT: Note- The SUV value is for reference purposes. Due to technical factors and uncontrolled variables, caution is advised when using SUV to differentiate malignant from nonmalignant processes, or to assess follow-up/treatment response. Reference max SUV: Mediastinum blood pool activity: max SUV 2.6 Background liver activity: max SUV 3.5 HEAD AND NECK: No pathologically enlarged or hypermetabolic cervical lymphadenopathy. Uptake in the oral cavity, tonsils, salivary glands, extraocular muscles is likely physiologic. Substantially limited evaluation of the intracranial structures due to the physiologic melgoza matter uptake. CHEST: Lungs and tracheobronchial tree: Hypermetabolic 1.1 cm right perihilar pulmonary nodule, SUV max 9.6, previously 5.5. Redemonstrated multiple, partially calcified pleural-based nodules. Anteroinferior right middle lobe groundglass opacity with SUV max 2.8, likely related to atelectasis versus aspiration/infection. Redemonstrated postsurgical changes of right upper lobectomy. Paraseptal emphysematous change. Pleura and pericardium: No significantly FDG avid pleural effusion. Mediastinum and Lymph nodes: No hypermetabolic axillary, hilar, or mediastinal lymphadenopathy. Faint right hilar uptake on 4:118 with max SUV 4.1, previously 3.8 with underlying calcifications, likely secondary to infectious/inflammatory process; attention follow-up studies. Chest wall: No hypermetabolic lesion ABDOMEN AND PELVIS: Liver: Mildly heterogeneous uptake, no definite hypermetabolic lesion. Biliary: No focal FDG avidity. Spleen: No FDG avidity. No splenomegaly. Pancreas: No abnormal FDG avidity or duct dilation. Adrenals: No FDG avid lesion right adrenal. No FDG avid lesion left adrenal. tract: Within the limitation of the physiologic FDG excretion no hydronephrosis or grossly hypermetabolic lesion. GI tract: Areas of uptake are favored to be physiologic or due to medication effect, which limits evaluation of underlying lesions. Lymph nodes: No abdominal or pelvic hypermetabolic lymphadenopathy. Mesentery/Peritoneum: No focal hypermetabolic lesion. Vasculature: Vascular patency cannot be assessed due to lack of IV contrast. There are atherosclerotic calcifications without aneurysmal dilation. Mild infrarenal aortic ectasia measuring up to 2.8 cm, not significantly changed. Pelvis: No focal hypermetabolic lesion. Abdominopelvic wall: No hypermetabolic lesion MUSCULOSKELETAL: There are no hypermetabolic osseous lesions. 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 Old nonunited posterior right eighth rib fracture. Pyrometallurgical Engineer (topogram) images: No additional findings. IMPRESSION IMPRESSION: Head and Neck: * No evidence of FDG avid neoplastic process Chest: * 1.1 cm worsening right perihilar nodule concerning for neoplasm/recurrence. * No evidence of FDG avid thoracic lymphadenopathy, as described. Abdomen and pelvis: * No evidence of FDG avid neoplastic process Musculoskeletal: * No neoplastic hypermetabolic lesions NOTE: This report was created using voice recognition dictation software. If there is a concern for errors, please have the clinician contact the report author for clarification. Transcribe Date/Time: Apr 28 2022 9:57A Dictated by: MARI JORGE MD This examination was interpreted and the report reviewed and electronically signed by: KWESI PALMER MD on Apr 28 2022 11:48AM EST Thank you for allowing us to participate in the care of your patient. Should there be any questions regarding this interpretation, please call [phone]. If you are (more content not included)... [facility] Study observation (narrative) [facility] PET+CT Guidance for localiza tion of tumor of Skull base to mid-thigh-- W 18F-FDG IVOrdered By: [facility] Provider on 04-28-[address] [facility] [address] Chest WO contraston 03-30 IMPRESSION: 1. New 1.1 cm right lower lobe perihilar nodular opacity adjacent to surgical clips worrisome for neoplasm. Consider further evaluation via PET scan and/or other workup. 2. Mild reticulonodular opacities and groundglass opacities in right lower lobe and other 2-3 mm nodular opacities, stable since 08/30/21. 3. 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 4. Mild emphysematous changes of the lungs. 5. 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 Transcribe Date/Time: Mar 30 2022 8:53A Dictated by: ARIANA HANSEN MD This examination was interpreted and the report reviewed and electronically signed by: ARIANA HANSEN MD on Mar 30 2022 10:40AM EST Thank you for allowing us to participate in the care of your patient. Should there be any questions regarding this interpretation, please call [phone]. If you are unable to reach us at the number above, please feel free to contact [facility] at [phone]. DIVISION OF RADIOLOGY * * *Final Report* * * DATE OF EXAM: Mar 30 2022 8:52AM [facility] [place] 0541 - CT CHEST WO IVCON / PROCEDURE REASON: Non-small cell lung cancer (NSCLC), monitor * * * * Physician Interpretation * * * * RESULT: EXAMINATION: CHEST CT WITHOUT CONTRAST CLINICAL HISTORY: Non-small cell lung cancer Technique: Spiral CT acquisition of the chest from the thoracic inlet to the upper abdomen without contrast. MQ: CTCWO_6 CT Radiation dose: Integrated Dose-length product (DLP) for this visit = 221 mGy*cm CT Dose Reduction Employed: Automated exposure control (AEC) Comparison: 09/29/21 RESULT: Limitations: None. Lines, tubes, and devices: None. 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 Mild emphysematous changes of the lungs. Mild mucous plugging is noted. Calcified pleural plaques in the right lung (image 4: 63, 132), stable. Mild residual reticular nodular opacities and groundglass opacities in the right lower lobe (4:157), stable. 2-3 mm nodular opacities in the right lower lobe (4:88) and left lower lobe (4:91), stable. New 1.1 x 1.0 cm perihilar nodular opacity adjacent to surgical clips in the superior segment of the right lower lobe (4:83). Pleural space: No pleural effusion. No pleural thickening. Lower neck, lymph nodes, and mediastinum: The imaged thyroid gland is normal. No lymphadenopathy in the supraclavicular, axillary, mediastinal, or hilar regions. Heart, pericardium, and thoracic vessels: The thoracic aorta and main pulmonary artery are normal in caliber. The cardiac chambers are normal in size. Atherosclerotic coronary artery calcifications are noted. No pericardial effusion or thickening. Bones and soft tissues: Healing fracture deformities of several right ribs are again noted. No new osseous abnormalities. Upper abdomen: No evidence of an adrenal mass. 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 DIVISION OF RADIOLOGY [facility] * * *Final Report* * * DATE OF EXAM: Mar 30 2022 8:52AM [facility] [place] 05[address] - CT CHEST WO IVCON / PROCEDURE REASON: Non-small cell lung cancer (NSCLC), monitor * * * * Physician Interpretation * * * * RESULT: EXAMINATION: CHEST CT WITHOUT CONTRAST CLINICAL HISTORY: Non-small cell lung cancer Technique: Spiral CT acquisition of the chest from the thoracic inlet to the upper abdomen without contrast. MQ: CTCWO_6 CT Radiation dose: Integrated Dose-length product (DLP) for this visit = 221 mGy*cm CT Dose Reduction Employed: Automated exposure control (AEC) Comparison: 09/29/21 RESULT: Limitations: None. Lines, tubes, and devices: None. 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 Mild emphysematous changes of the lungs. Mild mucous plugging is noted. Calcified pleural plaques in the right lung (image 4: 63, 132), stable. Mild residual reticular nodular opacities and groundglass opacities in the right lower lobe (4:157), stable. 2-3 mm nodular opacities in the right lower lobe (4:88) and left lower lobe (4:91), stable. New 1.1 x 1.0 cm perihilar nodular opacity adjacent to surgical clips in the superior segment of the right lower lobe (4:83). Pleural space: No pleural effusion. No pleural thickening. Lower neck, lymph nodes, and mediastinum: The imaged thyroid gland is normal. No lymphadenopathy in the supraclavicular, axillary, mediastinal, or hilar regions. Heart, pericardium, and thoracic vessels: The thoracic aorta and main pulmonary artery are normal in caliber. The cardiac chambers are normal in size. Atherosclerotic coronary artery calcifications are noted. No pericardial effusion or thickening. Bones and soft tissues: Healing fracture deformities of several right ribs are again noted. No new osseous abnormalities. Upper abdomen: No evidence of an adrenal mass. 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 IMPRESSION IMPRESSION: 1. New 1.1 cm right lower lobe perihilar nodular opacity adjacent to surgical clips worrisome for neoplasm. Consider further evaluation via PET scan and/or other workup. 2. Mild reticulonodular opacities and groundglass opacities in right lower lobe and other 2-3 mm nodular opacities, stable since 08/30/21. 3. 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 4. Mild emphysematous changes of the lungs. 5. 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 Transcribe Date/Time: Mar 30 2022 8:53A Dictated by: ARIANA HANSEN MD This examination was interpreted and the report reviewed and electronically signed by: ARIANA HANSEN MD on Mar 30 2022 10:40AM EST Thank you for allowing us to participate in the care of your patient. Should there be any questions regarding this interpretation, please call [phone]. If you are unable to reach us at the number above, please feel free to contact [facility] at [phone]. [facility] Study observation (narrative) [facility] CT Chest WO contrastOrdered By: [facility] Provider on 03-30-2022 [facility] IMMUNOFIXATION SCREEN, SERUM on 10-02-2021 Interpretation (MPA) Atypical restricted bands are present in the IgG and lambda regions. Consistent with IgG lambda monoclonal gammopathy. [facility] Interpretation and review of laboratory results Abnormal [facility] MPA Result M protein is present. Abnormal No M protein is identified. [facility] Staff Review (MPA) Reviewed by Francine Garcia MD [facility] PROTEIN ELECTROPHORESIS SERU M WITH KAYLA (P)Ordered By: Regina Bernal on 10-02-2021 Albumin [Mass/Vol] 3.96 g/dL 3.37 - 4. 23 g/dL [facility] Alpha 1 globulin Elph [Mass/Vol] 0.29 g/dL 0.18 - 0.31 g/dL [facility] Alpha 2 globulin Elph [Mass/Vol] 0.79 g/dL 0.52 - 0.97 g/dL [facility] Beta globulin Elph [Mass/Vol] 0.83 g/dL Low 0.84 - 1.36 g/dL [facility] Comment (Serum Prot Electro) Monoclonal Protein analysis (immunofixation) is not indicated. [facility] Gamma globulin Elph (Body fld) [Mass fraction] 2.03 g/dL High 0.70 - 1.44 g/dL [facility] Interpretation and review of laboratory results Abnormal [facility] M-Protein Location Gamma Fraction 1 [facility] Protein Fractions [Interp] An M protein is identified on protein electrophoresis. Abnormal No definitive M protein is identified on protein electrophor esis. [facility] Protein.monoclonal Elph [Mass/Vol] 1.60 g/dL High NINF - 0.00 g/dL [facility] SPE Staff Review Reviewed by Francine Garcia MD [facility] CBC W Auto Differential pane l (Bld)on 09-29-2021 Basophils (Bld) [#/Vol] 0.03 10*3/uL [facility] Basophils/100 WBC (Bld) 0.6 % [facility] Differential cell count method Nom (Bld) Auto [facility] Eosinophils (Bld) [#/Vol] 0.05 10*3/uL [facility] Eosinophils/100 WBC (Bld) 0.9 % [facility] Erythrocyte distribution width (RBC) [Ratio] 14.0 % 11.5 - 15.0 % [facility] Hematocrit (Bld) [Volume fraction] 38.7 % Low 39.0 - 51.0 % [facility] Hemoglobin (Bld) [Mass/Vol] 13.3 g/dL 13.0 - 17.0 g/dL [facility] Immature granulocytes (Bld) [#/Vol] [facility] Immature granulocytes/100 WBC (Bld) 0.2 % [facility] Interpretation and review of laboratory results Abnormal [facility] Lymphocytes (Bld) [#/Vol] 1.80 10*3/uL [facility] Lymphocytes/100 WBC (Bld) 34.1 % [facility] MCH (RBC) [Entitic mass] 36.5 pg High 26.0 - 34.0 pg [facility] MCHC (RBC) [Mass/Vol] 34.4 g/dL 30.5 - 36.0 g/dL [facility] MCV (RBC) [Entitic vol] 106.3 fL High 80.0 - 100.0 fL [facility] Monocytes (Bld) [#/Vol] 0.65 10*3/uL NINF [facility] Monocytes/100 WBC (Bld) 12.3 % [facility] Neutrophils (Bld) [#/Vol] 2.74 10*3/uL [facility] Neutrophils/100 WBC (Bld) 51.9 % [facility] Nucleated RBC (Bld) [#/Vol] NINF [facility] Nucleated RBC/100 WBC (Bld) [Ratio] 0.0 % /100 WBC [facility] Platelet mean volume (Bld) [Entitic vol] 10.3 fL 9.0 - 12.7 fL [facility] Platelets (Bld) [#/Vol] 192 10*3/uL [facility] RBC (Bld) [#/Vol] 3.64 10*6/uL Low 4.20 - 6.0 0 m/uL [facility] WBC (Bld) [#/Vol] 5.28 10*3/uL [facility] This is an appended report. These results have been appended to a previously verified report. [facility] CT Chest W contrast Eleanor IMPRESSION: 1. Mild reticulonodular opacities and groundglass opacities in right lower lobe slightly increased since 03/25/21. 2. Other 2-3 mm nodular opacities, stable. Consider continued interval follow-up. 3. 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 4. Mild emphysematous changes of the lungs. 5. 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 Transcribe Date/Time: Sep 29 2021 11:18A Dictated by: ARIANA HANSEN MD This examination was interpreted and the report reviewed and electronically signed by: ARIANA HANSEN MD on Sep 29 2021 12:43PM EST Thank you for allowing us to participate in the care of your patient. Should there be any questions regarding this interpretation, please call [phone]. If you are unable to reach us at the number above, please feel free to contact [facility] at [phone]. DIVISION OF RADIOLOGY * * *Final Report* * * DATE OF EXAM: Sep 29 2021 10:54AM [facility] [place] 0539 - CT CHEST W IVCON / PROCEDURE REASON: Lung nodules * * * * Physician Interpretation * * * * RESULT: EXAMINATION: CHEST CT WITHOUT CONTRAST CLINICAL HISTORY: Lung nodules Technique: Spiral CT acquisition of the chest from the thoracic inlet to the upper abdomen without contrast. MQ: CTCWO_6 CT Dose-Length Product: 224 mGy*cm CT Dose Reduction Employed: Automated exposure control (AEC) Comparison: 03/25/21 RESULT: Limitations: None. Lines, tubes, and devices: None. 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 Mild emphysematous changes of the lungs. Calcified pleural plaques in the right lung (image 3: 49, 180), stable. Mild residual reticular nodular opacities and groundglass opacities in the right lower lobe (image 3: 47), slightly increased. 2-3 mm nodular opacities in the right lower lobe (3: 76) and left lower lobe (3:80), stable. No new airspace opacities. Pleural space: No pleural effusion. No pleural thickening. Interval resolution of previously noted right pleural effusion and compression atelectasis. Lower neck, lymph nodes, and mediastinum: The imaged thyroid gland is normal. No lymphadenopathy in the supraclavicular, axillary, mediastinal, or hilar regions. Heart, pericardium, and thoracic vessels: The thoracic aorta and main pulmonary artery are normal in caliber. The cardiac chambers are normal in size. Atherosclerotic coronary artery calcifications are noted. No pericardial effusion or thickening. Bones and soft tissues: Healing fracture deformities of several right ribs are again noted. No new osseous abnormalities. Upper abdomen: No evidence of an adrenal mass. 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 Persistent intramural flap within the aneurysm suggestive of a small focal dissection or deep penetrating ulcer (2:203). DIVISION OF RADIOLOGY Provider, Elizabeth Torres - 09/29/2021 * * *Final Report* * * DATE OF EXAM: Sep 29 2021 10:54AM [facility] [place] 0539 - CT CHEST W IVCON / PROCEDURE REASON: Lung nodules * * * * Physician Interpretation * * * * RESULT: EXAMINATION: CHEST CT WITHOUT CONTRAST CLINICAL HISTORY: Lung nodules Technique: Spiral CT acquisition of the chest from the thoracic inlet to the upper abdomen without contrast. MQ: CTCWO_6 CT Dose-Length Product: 224 mGy*cm CT Dose Reduction Employed: Automated exposure control (AEC) Comparison: 03/25/21 RESULT: Limitations: None. Lines, tubes, and devices: None. 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 Mild emphysematous changes of the lungs. Calcified pleural plaques in the right lung (image 3: 49, 180), stable. Mild residual reticular nodular opacities and groundglass opacities in the right lower lobe (image 3: 47), slightly increased. 2-3 mm nodular opacities in the right lower lobe (3: 76) and left lower lobe (3:80), stable. No new airspace opacities. Pleural space: No pleural effusion. No pleural thickening. Interval resolution of previously noted right pleural effusion and compression atelectasis. Lower neck, lymph nodes, and mediastinum: The imaged thyroid gland is normal. No lymphadenopathy in the supraclavicular, axillary, mediastinal, or hilar regions. Heart, pericardium, and thoracic vessels: The thoracic aorta and main pulmonary artery are normal in caliber. The cardiac chambers are normal in size. Atherosclerotic coronary artery calcifications are noted. No pericardial effusion or thickening. Bones and soft tissues: Healing fracture deformities of several right ribs are again noted. No new osseous abnormalities. Upper abdomen: No evidence of an adrenal mass. 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 Persistent intramural flap within the aneurysm suggestive of a small focal dissection or deep penetrating ulcer (2:203). IMPRESSION IMPRESSION: 1. Mild reticulonodular opacities and groundglass opacities in right lower lobe slightly increased since 03/25/21. 2. Other 2-3 mm nodular opacities, stable. Consider continued interval follow-up. 3. 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 4. Mild emphysematous changes of the lungs. 5. 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 Transcribe Date/Time: Sep 29 2021 11:18A Dictated by: ARIANA HANSEN MD This examination was interpreted and the report reviewed and electronically signed by: ARIANA HANSEN MD on Sep 29 2021 12:43PM EST Thank you for allowing us to participate in the care of your patient. Should there be any questions regarding this interpretation, please call [phone]. If you are unable to reach us at the number above, please feel free to contact [facility] at [phone]. [facility] Study observation (narrative) [facility] CT Chest W contrast IVOrdere d By: [facility] Provider on 09-29-2021 [facility] Comprehensive metabolic 2000 panelOrdered By: Virginie Gonzalez on 09-29-2021 Albumin [Mass/Vol] 4.3 g/dL 3.9 - 4.9 g/dL [facility] ALP [Catalytic activity/Vol] 58 U/L 38 - 113 U/L [facility] ALT [Catalytic activity/Vol] 28 U/L 10 - 54 U/L [facility] Anion gap [Moles/Vol] 10 mmol/L 9 - 18 mmol/L [facility] AST [Catalytic activity/Vol] 36 U/L 14 - 40 U/L [facility] Bilirubin [Mass/Vol] 0.4 mg/dL 0.2 - 1 .3 mg/dL [facility] Calcium [Mass/Vol] 9.5 mg/dL 8.5 - 10. 2 mg/dL [facility] Chloride [Moles/Vol] 99 mmol/L 97 - 10 5 mmol/L [facility] CO2 [Moles/Vol] 28 mmol/L 22 - 30 mmol/L [facility] Creatinine [Mass/Vol] 0.88 mg/dL 0.73 - 1.22 mg/dL [facility] GFR/1.73 sq M.predicted among non-blacks MDRD (S/P/Bld) [Vol rate/Area] 90 mL/min/{1.73_m2} - PINF [facility] Comment on above: Estimated Glomerular Filtration Rate (eGFR) is calculated using the 202 CKD-EPI creatinine equation. This equation utilizes serum creatinine, sex, and age as parameters. The creatinine assay has traceable calibration to isotope dilution-mass spectrometry. Refer to KDIGO guidelines for clinical interpretation. In patients with unstable renal function, e.g. those with acute kidney injury, the eGFR may not accurately reflect actual GFR. Glucose [Mass/Vol] 119 mg/dL High 74 - 99 mg/dL [facility] Comment on above: The [place] Diab[employer] s Association (ADA) provides guidance for cutoff values for fasting glucose and random glucose. The ADA defines fasting as no caloric intake for at least 8 hours. Fasting plasma glucose results between 100 to 125 mg/dL indicate increased risk for diabetes (prediabetes). Fasting plasma glucose results greater than or equal to 126 mg/dL meet the criteria for diagnosis of diabetes. In the absence of unequivocal hyperglycemia, results should be confirmed by repeat testing. In a patient with classic symptoms of hyperglycemia or hyperglycemic crisis, random plasma glucose results greater than or equal to 200 mg/dL meet the criteria for diagnosis of diabetes. Reference: Standards of Medical Care in Diabetes 2016, [place] [employer]. Diabetes Care. 2016.39(Suppl 1). Interpretation and review of laboratory results Abnormal [facility] Potassium [Moles/Vol] 4.2 mmol/L 3.7 - 5.1 mmol/L [facility] Protein [Mass/Vol] 8.5 g/dL High 6.3 - 8.0 g/dL [facility] Sodium [Moles/Vol] 137 mmol/L 136 - 144 mmol/L [facility] Urea nitrogen [Mass/Vol] 27 mg/dL High 9 - 24 mg/dL [facility] IMMUNOGLOBULINS GAMon 2021 IgA [Mass/Vol] 55 mg/dL Low 70 - 400 mg/dL [facility] IgG [Mass/Vol] 2389 mg/dL High 700 - 1600 mg/dL [facility] IgM [Mass/Vol] 12 mg/dL Low 40 - 230 mg/dL [facility] Interpretation and review of laboratory results Abnormal [facility] KAPPA/LOMBARDI,FREE,SEROrdered B y: Alina Newman on 09-29-2021 Immunoglobulin light chains.kappa.free (S) [Mass/Vol] 16.1 mg/L 3.3 - 19.4 mg/L [facility] Immunoglobulin light chains.kappa/Immunoglo bulin light chains.lambda (S) [Mass ratio] 0.19 Low 0.26 - 1.65 [facility] Immunoglobulin light chains.lambda.free [Mass/Vol] 85.8 mg/L High 5.7 - 26.3 mg/L [facility] Interpretation and review of laboratory results Abnormal [facility] Rarely, increased se rum free light chains levels may not be detected or accurately quantified due to prozone phenomenon or in high viscosity samples using this immunoturbidimetric assay. Correlation with other laboratory results and clinical findings is recommended. The Binding Site [employer] instrument is used. Results obtained with different assay methods or kits cannot be used interchangeably. [facility] PROTEIN TOTAL BLDon 09-30-19 22 Protein [Mass/Vol] 7.9 g/dL 6.3 - 8.0 g/dL [facility] Protein [Mass/Vol]on 022 Interpretation and review of laboratory results Normal [facility] Vital Signs Date Time Vital Sign Value Performing Clinician Facility 04-17-2024 09:50-0400 Body height 172.7 cm Ja Becker MD Work Phone: [facility] 04-17-2024 09:50-0400 Body mass index (BMI) [Ratio] 23.81 kg/m2 Ja Becker MD Work Phone: [facility] 04-17-2024 09:50-0400 Body temperature 97.3 [degF] Ja Becker MD Work Phone: [facility] 04-17-2024 09:50-0400 Body weight 71 kg Ja Becker MD Work Phone: [facility] 04-17-2024 09:50-0400 Diastolic blood pressure 72 mm[Hg] Ja Becker MD Work Phone: [facility] 04-17-2024 09:50-0400 Heart rate 67 /min Ja Becker MD Work Phone: [facility] 04-17-2024 09:50-0400 Respiratory rate 16 /min Ja Becker MD Work Phone: [facility] 04-17-2024 09:50-0400 SaO2% (BldA) [Mass fraction] 97 % Ja Becker MD Work Phone: [facility] 04-17-2024 09:50-0400 Systolic blood pressure 142 mm[Hg] Ja Becker MD Work Phone: [facility] 04-16-2024 14:26-0400 Body height 172.7 cm Stuart Wright MD Work Phone: [facility] 04-16-2024 14:26-0400 Body mass index (BMI) [Ratio] 23.11 kg/m2 Stuart Wright MD Work Phone: [facility] [employer] [facility] 04-16-2024 14:26-040 Body weight 68.95 kg Stuart Wright MD Work Phone: [facility] 04-16-2024 14:26-0400 Diastolic blood pressure 62 mm[Hg] Stuart Wright MD Work Phone: [facility] 04-16-2024 14:26-0400 Heart rate 62 /min Stuart Wright MD Work Phone: [facility] [employer] [facility] 04-16-2024 14:26-0400 Systolic blood pressure 146 mm[Hg] Stuart Wright MD Work Phone: [facility] 04-09-2024 15:03-0400 Body height 175.3 cm Kylee Hemmer PA Work Phone: [facility] 04-09-2024 15:03-0400 Body mass index (BMI) [Ratio] 22.86 kg/m2 Kylee Hemmer PA Work Phone: [facility] 04-09-2024 15:03-0400 Body temperature 97.7 [degF] Kylee Hemmer PA Work Phone: [facility] 04-09-2024 15:03-0400 Body weight 70.22 kg Kylee Hemmer PA Work Phone: [facility] 04-09-2024 15:03-0400 Diastolic blood pressure 66 mm[Hg] Kylee Hemmer PA Work Phone: [facility] 04-09-2024 15:03-0400 Heart rate 62 /min Kylee Hemmer PA Work Phone: [facility] 04-09-2024 15:03-0400 Respiratory rate 16 /min Kylee Benavidesmer PA Work Phone: [facility] 04-09-2024 15:03-0400 SaO2% (BldA) [Mass fraction] 97 % Kylee Benavidesmer PA Work Phone: [facility] 04-09-2024 15:03-0400 Systolic blood pressure 138 mm[Hg] Kylee Benavidesmer PA Work Phone: [facility] 03-24-2024 12:42-0400 Body mass index (BMI) [Ratio] 23.47 kg/m2 Flynn Maline PA-C Work Phone: [facility] 03-24-2024 12:42-0400 Body weight 70 kg Flynn Maline PA-C Work Phone: [facility] 03-24-2024 12:42-0400 Diastolic blood pressure 68 mm[Hg] Flynn Maline PA-C Work Phone: [facility] 03-24-2024 12:42-0400 Heart rate 55 /min Flynn Maline PA-C Work Phone: [facility] 03-24-2024 12:42-0400 Systolic blood pressure 145 mm[Hg] Flynn Maline PA-C Work Phone: [facility] 2024 09:36-0400 Body mass index (BMI) [Ratio] 23.2 kg/m2 Glenys Kitty PA-C Work Phone: [facility] 2024 09:36-0400 Body temperature 97.11 [degF] Glenys Kitty PA-C Work Phone: [facility] 2024 09:36-0400 Body weight 69.2 kg Glenys Kitty PA-C Work Phone: [facility] 2024 09:36-0400 Diastolic blood pressure 73 mm[Hg] Glenys Kitty PA-C Work Phone: [facility] 2024 09:36-0400 Heart rate 64 /min Glenys Kitty PA-C Work Phone: [facility] 2024 09:36-0400 Respiratory rate 18 /min Glenys Kitty PA-C Work Phone: [facility] 2024 09:36-0400 SaO2% (BldA) [Mass fraction] 97 % Glenys Kitty PA-C Work Phone: [facility] 2024 09:36-0400 Systolic blood pressure 124 mm[Hg] Glenys Kitty PA-C Work Phone: [facility] 10-29-2023 10:21-0400 Body mass index (BMI) [Ratio] 23.07 kg/m2 Ja Becker MD Work Phone: [facility] 10-29-2023 10:21-0400 Body temperature 97.59 [degF] Ja Becker MD Work Phone: [facility] 10-29-2023 10:21-0400 Body weight 68.8 kg Ja Becker MD Work Phone: [facility] 10-29-2023 10:21-0400 Diastolic blood pressure 74 mm[Hg] Ja Becker MD Work Phone: [facility] 10-29-2023 10:21-0400 Heart rate 69 /min Ja Becker MD Work Phone: [facility] 10-29-2023 10:21-0400 Respiratory rate 18 /min Ja Becker MD Work Phone: [facility] 10-29-2023 10:21-0400 SaO2% (BldA) [Mass fraction] 94 % Ja Becker MD Work Phone: [facility] 10-29-2023 10:21-0400 Systolic blood pressure 134 mm[Hg] Ja Becker MD Work Phone: [facility] 09-20-2023 12:51-0400 Body weight 69 kg Lexus Lexus DO Work Phone: [facility] 09-20-2023 12:51-0400 Diastolic blood pressure 66 mm[Hg] Lexus Lexus DO Work Phone: [facility] 09-20-2023 12:51-0400 Heart rate 56 /min Lexus Lexus DO Work Phone: [facility] 09-20-2023 12:51-0400 Systolic blood pressure 129 mm[Hg] Lexus Lexus DO Work Phone: [facility] 05-14-2023 09:32-0500 Body height 172.7 cm Ja Becker MD Work Phone: [facility] 05-14-2023 09:32-0500 Body temperature 97.59 [degF] Ja Becker MD Work Phone: [facility] 05-14-2023 09:32-0500 Body weight 69.31 kg Ja Becker MD Work Phone: [facility] 05-14-2023 09:32-0500 Diastolic blood pressure 64 mm[Hg] Ja Becker MD Work Phone: [facility] 05-14-2023 09:32-0500 Heart rate 55 /min Ja Becker MD Work Phone: [facility] 05-14-2023 09:32-0500 Respiratory rate 18 /min Ja Becker MD Work Phone: [facility] 05-14-2023 09:32-0500 SaO2% (BldA) [Mass fraction] 94 % Ja Becker MD Work Phone: [facility] 05-14-2023 09:32-0500 Systolic blood pressure 136 mm[Hg] Ja Becker MD Work Phone: [facility] 04-02-2023 11:43-0400 Diastolic blood pressure 52 mm[Hg] Chair Merino Work Phone: [facility] 04-02-2023 11:43-0400 Systolic blood pressure 99 mm[Hg] Chair Merino Work Phone: [facility] 04-02-2023 10:31-0400 Heart rate 56 /min Chair Aria Work Phone: [facility] 04-02-2023 10:31-0400 Respiratory rate 18 /min Chair Aria Work Phone: [facility] 04-02-2023 10:31-0400 SaO2% (BldA) [Mass fraction] 97 % Chair Aria Work Phone: [facility] 04-02-2023 09:40-0400 Body height 170.6 cm Amber Rodriguez APRN.REJECT OPENER [employer] FILLER Work Phone: [facility] 04-02-2023 09:40-0400 Body temperature 97 [degF] Amber Rodriguez APRN.REJECT OPENER [employer] FILLER Work Phone: [facility] 04-02-2023 09:40-0400 Body weight 70.03 kg Amber Rodriguez APRN.REJECT OPENER [employer] FILLER Work Phone: [facility] 04-02-2023 09:40-0400 Diastolic blood pressure 63 mm[Hg] Amber Rodriguez APRN.REJECT OPENER AND FILLER Work Phone: [facility] 04-02-2023 09:40-0400 Heart rate 70 /min Amber Rodriguez APRN.REJECT OPENER AND FILLER Work Phone: [facility] 04-02-2023 09:40-0400 Respiratory rate 16 /min Amber Rodriguez APRN.REJECT OPENER AND F[employer]ER Work Phone: [facility] 04-02-2023 09:40-0400 SaO2% (BldA) [Mass fraction] 93 % Amber Rodriguez APRN.REJECT OPENER AND FILLER Work Phone: [facility] 04-02-2023 09:40-0400 Systolic blood pressure 108 mm[Hg] Amber Rodriguez APRN.REJECT OPENER AND FILLER Work Phone: [facility] 02-19-2023 09:36-0400 Body height 170.6 cm Ja Becker MD Work Phone: [facility] 02-19-2023 09:36-0400 Body temperature 97.39 [degF] Ja Becker MD Work Phone: [facility] 02-19-2023 09:36-0400 Body weight 70.03 kg Ja Becker MD Work Phone: [facility] 02-19-2023 09:36-0400 Diastolic blood pressure 65 mm[Hg] Ja Becker MD Work Phone: [facility] 02-19-2023 09:36-0400 Heart rate 71 /min Ja Becker MD Work Phone: [facility] 02-19-2023 09:36-0400 Respiratory rate 16 /min Ja Becker MD Work Phone: [facility] 02-19-2023 09:36-0400 SaO2% (BldA) [Mass fraction] 92 % Ja Becker MD Work Phone: [facility] 02-19-2023 09:36-0400 Systolic blood pressure 129 mm[Hg] Ja Becker MD Work Phone: [facility] 01-01-2023 10:08-0400 Body height 170.6 cm Ja Becker MD Work Phone: [facility] 01-01-2023 10:08-0400 Body temperature 97.81 [degF] Ja Becker MD Work Phone: [facility] 01-01-2023 10:08-0400 Body weight 71.58 kg Ja Becker MD Work Phone: [facility] 01-01-2023 10:08-0400 Diastolic blood pressure 70 mm[Hg] Ja Becker MD Work Phone: [facility] 01-01-2023 10:08-0400 Heart rate 60 /min Ja Becker MD Work Phone: [facility] 01-01-2023 10:08-0400 Respiratory rate 16 /min Ja Becker MD Work Phone: [facility] 01-01-2023 10:08-0400 SaO2% (BldA) [Mass fraction] 96 % Ja Becker MD Work Phone: [facility] 01-01-2023 10:08-0400 Systolic blood pressure 134 mm[Hg] Ja Becker MD Work Phone: [facility] 12-04-2022 14:48-0400 Body height 170.6 cm Amber Rodriguez APRN.REJECT OPENER [employer] FILLER Work Phone: [facility] 12-04-2022 14:48-0400 Body temperature 97.9 [degF] Amber Rodriguez SYRUP MACHINE LABORER.REJECT OPENER AND FILLER Work Phone: [facility] 12-04-2022 14:48-0400 Body weight 71.49 kg Amber Rodriguez APRN.REJECT OPENER [employer] FILLER Work Phone: [facility] 12-04-2022 14:48-0400 Diastolic blood pressure 66 mm[Hg] Amber Rodriguez APRN.REJECT OPENER AND FILLER Work Phone: [facility] 12-04-2022 14:48-0400 Heart rate 50 /min Amber Rodriguez APRN.RE[employer] OPENER [employer] F[employer]ER Work Phone: [facility] 12-04-2022 14:48-0400 Respiratory rate 16 /min Amber Rodriguez APRN.RE[employer] OPENER [employer] F[employer]ER Work Phone: [facility] 12-04-2022 14:48-0400 SaO2% (BldA) [Mass fraction] 97 % Amber Rodriguez APRN.REJECT OPENER AND FILLER Work Phone: [facility] 12-04-2022 14:48-0400 Systolic blood pressure 136 mm[Hg] Amber Rodriguez APRN.REJECT OPENER AND FILLER Work Phone: [facility] 10-31-2022 14:51-0400 Body height 170.6 cm Amber Rodriguez APRN.REJECT OPENER AND FILLER Work Phone: [facility] 10-31-2022 14:51-0400 Body temperature 97.3 [degF] Amber Rodriguez APRN.REJECT OPENER AND FILLER Work Phone: [facility] 10-31-2022 14:51-0400 Body weight 73.12 kg Amber Rodriguez SYRUP MACHINE LABORER.REJECT OPENER AND FILLER Work Phone: [facility] 10-31-2022 14:51-0400 Diastolic blood pressure 63 mm[Hg] Amber Rodriguez SYRUP MACHINE LABORER.REJECT OPENER AND FILLER Work Phone: [facility] 10-31-2022 14:51-0400 Heart rate 54 /min Amber Rodriguez SYRUP MACHINE LABORER.REJECT OPENER AND FILLER Work Phone: [facility] 10-31-2022 14:51-0400 Respiratory rate 16 /min Amber Rodriguez SYRUP MACHINE LABORER.REJECT OPENER AND FILLER Work Phone: [facility] 10-31-2022 14:51-0400 SaO2% (BldA) [Mass fraction] 97 % Amber Rodriguez SYRUP MACHINE LABORER.REJECT OPENER AND FILLER Work Phone: [facility] 10-31-2022 14:51-0400 Systolic blood pressure 162 mm[Hg] Amber Rodriguez SYRUP MACHINE LABORER.REJECT OPENER AND FILLER Work Phone: [facility] 10-02-2022 17:32-0400 Diastolic blood pressure 87 mm[Hg] [facility] 10-02-2022 17:32-0400 Heart rate 43 /min [facility] 10-02-2022 17:32-0400 Respiratory rate 16 /min [facility] 10-02-2022 17:32-0400 SaO2% (BldA) [Mass fraction] 100 % [facility] 10-02-2022 17:32-0400 Systolic blood pressure 179 mm[Hg] [facility] 10-02-2022 16:00-0400 Body height 173.99 cm [facility] 10-02-2022 16:00-0400 Body weight 79.4 kg [facility] 10-02-2022 15:59-0400 Body temperature 97.5 [degF] [facility] 10-02-2022 15:15-0400 Diastolic blood pressure 84 mm[Hg] Chair Merino Work Phone: [facility] 10-02-2022 15:15-0400 Heart rate 47 /min Chair Aria Work Phone: [facility] 10-02-2022 15:15-0400 Respiratory rate 18 /min Chair Aria Work Phone: [facility] 10-02-2022 15:15-0400 SaO2% (BldA) [Mass fraction] 99 % Chair Aria Work Phone: [facility] 10-02-2022 15:15-0400 Systolic blood pressure 170 mm[Hg] Chair Aria Work Phone: [facility] 09-11-2022 09:44-0400 Body temperature 97.59 [degF] Ja Becker MD Work Phone: [facility] 09-11-2022 09:44-0400 Body weight 74.12 kg Ja Becker MD Work Phone: [facility] 09-11-2022 09:44-0400 Diastolic blood pressure 66 mm[Hg] Ja Becker MD Work Phone: [facility] 09-11-2022 09:44-0400 Heart rate 48 /min Ja Becker MD Work Phone: [facility] 09-11-2022 09:44-0400 Respiratory rate 16 /min Ja Becker MD Work Phone: [facility] 09-11-2022 09:44-0400 SaO2% (BldA) [Mass fraction] 92 % Ja Becker MD Work Phone: [facility] 09-11-2022 09:44-0400 Systolic blood pressure 140 mm[Hg] Ja Becker MD Work Phone: [facility] 08-08-2022 09:11-0500 Body height 172.4 cm Amber Rodriguez APRN.REJECT OPENER AND FILLER Work Phone: [facility] 08-08-2022 09:11-0500 Body temperature 97.39 [degF] Amber Rodriguez APRN.REJECT OPENER AND FILLER Work Phone: [facility] 08-08-2022 09:11-0500 Body weight 73.94 kg Amber Rodriguez SYRUP MACHINE LABORER.REJECT OPENER AND FILLER Work Phone: [facility] 08-08-2022 09:11-0500 Diastolic blood pressure 62 mm[Hg] Amber Rodriguez SYRUP MACHINE LABORER.REJECT OPENER AND FILLER Work Phone: [facility] 08-08-2022 09:11-0500 Heart rate 60 /min Amber Rodriguez SYRUP MACHINE LABORER.REJECT OPENER AND FILLER Work Phone: [facility] 08-08-2022 09:11-0500 Respiratory rate 16 /min Amber Rodriguez SYRUP MACHINE LABORER.REJECT OPENER AND FILLER Work Phone: [facility] 08-08-2022 09:11-0500 SaO2% (BldA) [Mass fraction] 98 % Amber Rodriguez SYRUP MACHINE LABORER.REJECT OPENER AND FILLER Work Phone: [facility] 08-08-2022 09:11-0500 Systolic blood pressure 156 mm[Hg] Amber Rodriguez SYRUP MACHINE LABORER.REJECT OPENER AND FILLER Work Phone: [facility] 08-07-2022 11:34-0500 Body weight 73.12 kg TYLER Saunders MD Work Phone: [facility] 08-01-2022 09:17-0500 Body height 172.4 cm Ja Becker MD Work Phone: [facility] 08-01-2022 09:17-0500 Body temperature 97.2 [degF] Ja Becker MD Work Phone: [facility] 08-01-2022 09:17-0500 Body weight 74.48 kg Ja Becker MD Work Phone: [facility] 08-01-2022 09:17-0500 Diastolic blood pressure 69 mm[Hg] Ja Becker MD Work Phone: [facility] 08-01-2022 09:17-0500 Heart rate 53 /min Ja Becker MD Work Phone: [facility] 08-01-2022 09:17-0500 Respiratory rate 16 /min Ja Becker MD Work Phone: [facility] 08-01-2022 09:17-0500 SaO2% (BldA) [Mass fraction] 98 % Ja Becker MD Work Phone: [facility] 08-01-2022 09:17-0500 Systolic blood pressure 150 mm[Hg] Ja Becker MD Work Phone: [facility] 07-25-2022 09:04-0500 Body height 172.4 cm Glenys Kitty PA-C Work Phone: [facility] 07-25-2022 09:04-0500 Body temperature 97.5 [degF] Glenys Kitty PA-C Work Phone: [facility] 07-25-2022 09:04-0500 Body weight 74.84 kg Glenys Kitty PA-C Work Phone: [facility] 07-25-2022 09:04-0500 Diastolic blood pressure 54 mm[Hg] Glenys Kitty PA-C Work Phone: [facility] 07-25-2022 09:04-0500 Heart rate 51 /min Gelnys Kitty PA-C Work Phone: [facility] 07-25-2022 09:04-0500 Respiratory rate 16 /min Glenys Kitty PA-C Work Phone: [facility] 07-25-2022 09:04-0500 SaO2% (BldA) [Mass fraction] 97 % Glenys Kitty PA-C Work Phone: [facility] 07-25-2022 09:04-0500 Systolic blood pressure 105 mm[Hg] Glenys Kitty PA-C Work Phone: [facility] 07-18-2022 09:17-0500 Body height 172.4 cm Ja Becker MD Work Phone: [facility] 07-18-2022 09:17-0500 Body temperature 97.11 [degF] Ja Becker MD Work Phone: [facility] 07-18-2022 09:17-0500 Body weight 73.39 kg Ja Becker MD Work Phone: [facility] 07-18-2022 09:17-0500 Diastolic blood pressure 66 mm[Hg] Ja Becker MD Work Phone: [facility] 07-18-2022 09:17-0500 Heart rate 57 /min Ja Becker MD Work Phone: [facility] 07-18-2022 09:17-0500 Respiratory rate 16 /min Ja Becker MD Work Phone: [facility] 07-18-2022 09:17-0500 SaO2% (BldA) [Mass fraction] 96 % Ja Becker MD Work Phone: [facility] 07-18-2022 09:17-0500 Systolic blood pressure 124 mm[Hg] Ja Becker MD Work Phone: [facility] 07-17-2022 11:41-0500 Body temperature 96.69 [degF] TYLER Saunders MD Work Phone: [facility] 07-17-2022 11:41-0500 Body weight 72.12 kg TYLER Saunders MD Work Phone: [facility] 07-17-2022 11:41-0500 Diastolic blood pressure 79 mm[Hg] TYLER Saunders MD Work Phone: [facility] 07-17-2022 11:41-0500 Heart rate 57 /min TYLER Saunders MD Work Phone: [facility] 07-17-2022 11:41-0500 Respiratory rate 18 /min TYLER Saunders MD Work Phone: [facility] 07-17-2022 11:41-0500 SaO2% (BldA) [Mass fraction] 98 % TYLER Saunders MD Work Phone: [facility] 07-17-2022 11:41-0500 Systolic blood pressure 168 mm[Hg] TYLER Saunders MD Work Phone: [facility] 07-11-2022 11:51-0500 Body height 172.4 cm Amber Rodriguez SYRUP MACHINE LABORER.REJECT OPENER AND FILLER Work Phone: [facility] 07-11-2022 11:51-0500 Body temperature 97.81 [degF] Amber Rodriguez SYRUP MACHINE LABORER.REJECT OPENER AND FILLER Work Phone: [facility] 07-11-2022 11:51-0500 Body weight 73.21 kg Amber Rodriguez SYRUP MACHINE LABORER.REJECT OPENER AND FILLER Work Phone: [facility] 07-11-2022 11:51-0500 Diastolic blood pressure 71 mm[Hg] Amber Rodriguez SYRUP MACHINE LABORER.REJECT OPENER AND FILLER Work Phone: [facility] 07-11-2022 11:51-0500 Heart rate 55 /min Amber Rodriguez SYRUP MACHINE LABORER.REJECT OPENER AND FILLER Work Phone: [facility] 07-11-2022 11:51-0500 Respiratory rate 16 /min Amber Rodriguez SYRUP MACHINE LABORER.REJECT OPENER AND FILLER Work Phone: [facility] 07-11-2022 11:51-0500 SaO2% (BldA) [Mass fraction] 97 % Amber Rodriguez SYRUP MACHINE LABORER.REJECT OPENER AND FILLER Work Phone: [facility] 07-11-2022 11:51-0500 Systolic blood pressure 168 mm[Hg] Amber Rodriguez SYRUP MACHINE LABORER.REJECT OPENER AND FILLER Work Phone: [facility] 05-30-2022 10:32-0500 Body height 172.7 cm Ja Becker MD Work Phone: [facility] 05-30-2022 10:32-0500 Body temperature 97.11 [degF] Ja Becker MD Work Phone: [facility] 05-30-2022 10:32-0500 Body weight 73.12 kg Ja Becker MD Work Phone: [facility] 05-30-2022 10:32-0500 Diastolic blood pressure 68 mm[Hg] Ja Becker MD Work Phone: [facility] 05-30-2022 10:32-0500 Heart rate 50 /min Ja Becker MD Work Phone: [facility] 05-30-2022 10:32-0500 Respiratory rate 18 /min Ja Becker MD Work Phone: [facility] 05-30-2022 10:32-0500 SaO2% (BldA) [Mass fraction] 97 % Ja Becker MD Work Phone: [facility] 05-30-2022 10:32-0500 Systolic blood pressure 150 mm[Hg] Ja Becker MD Work Phone: [facility] 05-09-2022 09:12-0500 Body temperature 96.91 [degF] TYLER Saunders MD Work Phone: [facility] 05-09-2022 09:12-0500 Body weight 73.03 kg TYLER Saunders MD Work Phone: [facility] 05-09-2022 09:12-0500 Diastolic blood pressure 77 mm[Hg] TYLER Saunders MD Work Phone: [facility] 05-09-2022 09:12-0500 Heart rate 53 /min TYLER Saunders MD Work Phone: [facility] 05-09-2022 09:12-0500 Respiratory rate 16 /min TYLER Saunders MD Work Phone: [facility] 05-09-2022 09:12-0500 SaO2% (BldA) [Mass fraction] 98 % TYLER Saunders MD Work Phone: [facility] 05-09-2022 09:12-0500 Systolic blood pressure 149 mm[Hg] TYLER Saunders MD Work Phone: [facility] 05-02-2022 09:43-0400 Body height 172.7 cm Ja Becker MD Work Phone: [facility] 05-02-2022 09:43-0400 Body temperature 97.59 [degF] Ja Becker MD Work Phone: [facility] 05-02-2022 09:43-0400 Body weight 74.3 kg Ja Becker MD Work Phone: [facility] 05-02-2022 09:43-0400 Diastolic blood pressure 61 mm[Hg] Ja Becker MD Work Phone: [facility] 05-02-2022 09:43-0400 Heart rate 53 /min Ja Becker MD Work Phone: [facility] 05-02-2022 09:43-0400 Respiratory rate 16 /min Ja Becker MD Work Phone: [facility] 05-02-2022 09:43-0400 SaO2% (BldA) [Mass fraction] 97 % Ja Becker MD Work Phone: [facility] 05-02-2022 09:43-0400 Systolic blood pressure 135 mm[Hg] Ja Becker MD Work Phone: [facility] 04-24-2022 14:26-0400 Body height 172.7 cm Lexus Lexus DO Work Phone: [facility] 04-24-2022 14:26-0400 Heart rate 60 /min Lexus Lexus DO Work Phone: [facility] 04-24-2022 14:26-0400 SaO2% (BldA) [Mass fraction] 98 % Lexus Lexus DO Work Phone: [facility] 01-12-2022 09:45-0400 Diastolic blood pressure 61 mm[Hg] Ja Becker MD Work Phone: [facility] 01-12-2022 09:45-0400 Systolic blood pressure 183 mm[Hg] Ja Becker MD Work Phone: [facility] 01-12-2022 09:43-0400 Body height 172.7 cm Ja Becker MD Work Phone: [facility] 01-12-2022 09:43-0400 Body temperature 97.39 [degF] Ja Becker MD Work Phone: [facility] 01-12-2022 09:43-0400 Body weight 76.2 kg Ja Becker MD Work Phone: [facility] 01-12-2022 09:43-0400 Heart rate 70 /min Ja Becker MD Work Phone: [facility] 01-12-2022 09:43-0400 Respiratory rate 18 /min Ja Becker MD Work Phone: [facility] 01-12-2022 09:43-0400 SaO2% (BldA) [Mass fraction] 97 % Ja Becker MD Work Phone: [facility] 10-06-2021 09:26-0400 Body height 172.7 cm Ja eBcker MD Work Phone: [facility] 10-06-2021 09:26-0400 Body temperature 97.81 [degF] Ja Becker MD Work Phone: [facility] 10-06-2021 09:26-0400 Body weight 76.48 kg Ja Becker MD Work Phone: [facility] 10-06-2021 09:26-0400 Diastolic blood pressure 60 mm[Hg] Ja Becker MD Work Phone: [facility] 10-06-2021 09:26-0400 Heart rate 51 /min Ja Becker MD Work Phone: [facility] 10-06-2021 09:26-0400 Respiratory rate 16 /min Ja Becker MD Work Phone: [facility] 10-06-2021 09:26-0400 SaO2% (BldA) [Mass fraction] 97 % Ja Becker MD Work Phone: [facility] 10-06-2021 09:26-0400 Systolic blood pressure 133 mm[Hg] Ja Becker MD Work Phone: [facility] Encounters Encounter Date Encounter Type Care Provider Facility Start: 04-26-2024 End: 04-26-2024 Doroteo Grissom MD Work Phone: [facility] Comment on above: 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) Start: 04-24-2024 End: 04-24-2024 [facility] Work [facility] Start: 04-24-2024 End: 04-24-2024 [facility] Start: 04-24-2024 End: 04-24-2024 Office outpatient new 30 minutes [facility] Work Phone: [facility] Comment on above: Melanocytic nevus of trunk (Primary Dx); Seborrheic keratosis; Lentigines; Capillary angioma; Seborrheic keratosis, inflamed; Actinic keratosis Start: 04-24-2024 End: 04-24-2024 ambulatory [facility] Not Available Start: 04-18-2024 End: 04-18-2024 Telephone encounter Rhona Ruiz RN Work Phone: [facility] Start: 04-17-2024 End: 04-17-2024 Clinisync Result Encounter Generic External Data Provider [facility] External Department Unsolicited Start: 04-17-2024 End: 04-17-2024 Clinisync Result Encounter Generic External Data Provider [facility] External Department Unsolicited Start: 04-17-2024 End: 04-17-2024 Patient encounter procedure Ja Becker MD Work Phone: Hematology/Oncology Start: 04-17-2024 End: 04-17-2024 ambulatory [facility] Work Phone: Hematology/Oncology Comment on above: Multiple myeloma not having achieved remission (HCC); 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); Anemia, unspecified type Multiple myeloma, re mission status unspecified (HCC) (Primary Dx) Malignant neoplasm o f hilus of right lung (HCC) (Primary Dx); Multiple myeloma not having achieved remission (HCC); Anxiety about health; Pain Start: 04-16-2024 End: 04-16-2024 Office outpatient visit 15 minutes Stuart Wright MD Work Phone: [facility] Comment on above: Elevated PSA (Primar y Dx); Benign prostatic hyperplasia with urinary frequency Start: 04-16-2024 End: 04-16-2024 ambulatory STUART WRIGHT [facility] Start: 04-15-2024 End: 04-15-2024 Telephone encounter Rhona Ruiz RN Work Phone: Hematology/Oncology Comment on above: Care Coordination (C T Results) Start: 04-14-2024 End: 04-14-2024 Refill Glenys Kurtz PA-C Work Phone: Hematology/Oncology Comment on above: Refill Request Start: 04-10-2024 End: 04-10-2024 ambulatory GLENYS KURTZ Facility:[facility] Start: 04-10-2024 End: 04-10-2024 Subsequent hospital visit by physician Arrival Time Radiology Work Phone: Radiology [facility] Comment on above: Malignant neoplasm o f unspecified part of unspecified bronchus or lung (HCC) [C34.90] Start: 04-09-2024 End: 04-09-2024 Office outpatient visit 25 minutes Kylee KING Work Phone: [facility] Comment on above: COPD exacerbation (C MS/HCC); Immunodeficiency due to conditions classified elsewhere (CMS/HCC); Multiple myeloma not having achieved remission (CMS/HCC); Mild protein-calorie malnutrition (CMS/HCC); Malignant neoplasm of upper lobe, right bronchus or lung (CMS/HCC); Major depressive disorder, single episode, moderate (HCC) (CMS/HCC); Other emphysema (CMS/HCC); Malignant neoplasm of unspecified part of left bronchus or lung (CMS/HCC) Start: 04-09-2024 End: 04-09-2024 ambulatory KYLEE ANDRADE Not Available Start: 04-09-2024 End: 04-09-2024 Bamboo flowsheet Kylee Andrade PA Work Phone: [facility] Start: 04-09-2024 End: 04-09-2024 Bamboo flowsheet Kylee KING Work Phone: [facility] Start: 03-25-2024 End: 03-26-2024 Refill Rhona Ruiz RN Work Phone: Hematology/Oncology Comment on above: Refill Request (Norc o) Orders Start: 03-24-2024 End: 03-24-2024 ambulatory PRERNA GRISSOM II Facility:[facility] Start: 03-24-2024 End: 03-24-2024 Office outpatient visit 25 minutes Flynn Hopkins PA-C Work Phone: Pain Management Comment on above: Chest wall pain (Maricel regina Dx); Intercostal neuralgia; History of lung cancer Start: 03-20-2024 End: 03-20-2024 ambulatory [facility] Start: 03-17-2024 End: 03-17-2024 Refill Ja Becker MD Work Phone: Hematology/Oncology Comment on above: Refill Request Start: 03-14-2024 End: 03-14-2024 Telephone encounter Yanira Plasencia [facility] Hematology/Oncology Start: 02-29-2024 End: 03-06-2024 Refill Iza Jha RN Work Phone: Hematology/Oncology Comment on above: Refill Request Start: 02-20-2024 End: 02-20-2024 ambulatory [facility] Start: 02-19-2024 End: 02-19-2024 Refill Ja Becker MD Work Phone: [facility] Comment on above: Refill Request Start: 02-18-2024 End: 02-18-2024 Refill Rhona Ruiz RN Work Phone: Hematology/Oncology Comment on above: Refill Request (Norc o) Start: 02-16-2024 End: 02-18-2024 Refill Ja Becker MD Work Phone: Hematology/Oncology Comment on above: Refill Request Start: 02-15-2024 Telephone encounter Rhona hand RN Work Phone: Hematology/Oncology Comment on above: Care Coordination (M edication Requests) Start: 02-01-2024 Refill Ja Becker MD Work Phone: Hematology/Oncology Comment on above: Refill Request Start: 01-30-2024 End: 01-30-2024 ambulatory [facility] Start: 01-18-2024 Refill Rhona santos RN Work Phone: Hematology/Oncology Comment on above: Refill Request (Norc o) Start: 2024 End: 2024 ambulatory [facility] Start: 2024 End: 2024 Office outpatient visit 25 minutes Glenys Kurtz PA-C Work Phone: Hematology/Oncology Comment on above: Multiple myeloma not having achieved remission (HCC) (Primary Dx); 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); Anemia, unspecified type; Malignant neoplasm of unspecified part of unspecified bronchus or lung (HCC) Start: 2024 End: 2024 ambulatory [facility] Work Phone: Hematology/Oncology Comment on above: Multiple myeloma not having achieved remission (HCC) Multiple myeloma, re mission status unspecified (HCC) (Primary Dx) Start: 01-16-2024 Telephone encounter Glenys long PA-C Work Phone: Hematology/Oncology Comment on above: Results Start: 01-09-2024 End: 01-09-2024 ambulatory [facility] Start: 01-07-2024 End: 01-07-2024 ambulatory [facility] Start: 01-02-2024 End: 01-02-[address] [facility] Start: 12-27-2023 End: 12-27-2023 Refill Rhona Ruiz RN Work Phone: Hematology/Oncology Comment on above: Refill Request (Klon opin & Gabapentin) Start: 12-24-2023 Telephone encounter Rhona hand RN Work Phone: Hematology/Oncology Comment on above: Care Coordination (N orco Request) Start: 12-21-2023 Refill Ja Becker MD Work Phone: Hematology/Oncology Comment on above: Refill Request Start: 11-21-2023 Refill Ja Becker MD Work Phone: Hematology/Oncology Comment on above: Refill Request Start: 11-16-2023 Refill Ja Becker MD Work Phone: Hematology/Oncology Comment on above: Refill Request Start: 10-29-2023 End: 10-29-2023 Patient encounter procedure Ja Becker MD Work Phone: Hematology/Oncology Start: 10-29-2023 End: 10-30-2023 ambulatory [facility] Work Phone: Hematology/Oncology Comment on above: Malignant neoplasm o f hilus of right lung (HCC) (Primary Dx) Multiple myeloma, re mission status unspecified (HCC) (Primary Dx) Malignant neoplasm o f hilus of right lung (HCC) (Primary Dx); Multiple myeloma not having achieved remission (HCC); Neoplasm related pain (acute) (chronic); Anxiety; Neuropathic pain Start: 10-22-2023 End: 10-22-2023 ambulatory PRERNA GRISSOM II Facility:[facility] Start: 10-22-2023 End: 10-22-2023 Subsequent hospital visit by physician Arrival Time Radiology Work Phone: Radiology Pet [facility] Start: 10-15-2023 Refill Rhona santos RN Work Phone: Hematology/Oncology Comment on above: Refill Request (Norc o & Klonopin) Start: 09-20-2023 End: 09-20-2023 ambulatory LEXUS Goyo [facility] Facility:[facility] Start: 09-20-2023 End: 09-20-2023 Patient encounter procedure Lexus E Lexus DO Work Phone: Pain Management Comment on above: History of lung canc er (Primary Dx); Chest wall pain; Intercostal neuralgia Start: 09-19-2023 Refill Rhona santos RN Work Phone: Hematology/Oncology Comment on above: Refill Request (Norc o) Start: 09-11-2023 Refill Flynn barros PA-C Work Phone: Pain Management Comment on above: Refill Request Start: 08-22-2023 Refill Rhona santos RN Work Phone: Hematology/Oncology Comment on above: Refill Request (Norc o) Start: 08-13-2023 Refill Lexus E Girgi s DO Work Phone: Pain Management Comment on above: Refill Request Start: 08-06-2023 End: 08-07-2023 ambulatory [facility] [facility] Work Phone: [place] Comment on above: Multiple myeloma, re mission status unspecified (HCC) (Primary Dx) Start: 08-06-2023 End: 08-06-2023 Nutrition therapy Lab[facility] Work Phone: Hematology/Oncology Comment on above: Malnutrition of mild degree (HCC); Moderate major depression, single episode (HCC); Multiple myeloma, remission status unspecified (HCC); 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) Start: 08-03-2023 Refill Ja Becker MD Work Phone: Hematology/Oncology Comment on above: Refill Request Start: 08-03-2023 End: 08-03-2023 ambulatory GLENYS KURTZ Facility:[facility] Start: 08-03-2023 End: 08-03-2023 Subsequent hospital visit by physician Arrival Time Radiology Work Phone: Radiology Pet CT Comment on above: Malignant neoplasm o f unspecified part of unspecified bronchus or lung (HCC) [C34.90] Start: 07-09-2023 End: 07-09-2023 ambulatory GLENYS Sebastien KITTY Facility:[facility] Start: 05-21-2023 End: 05-21-2023 ambulatory KYLEE BENAVIDESROSINA Not Available Start: 05-17-2023 Refill Rhona santos RN Work Phone: Hematology/Oncology Comment on above: Refill Request (Edward VIGIL); Refill Request Refill Request (Norc o) Start: 05-14-2023 End: 05-14-2023 Patient encounter procedure Ja Becker MD Work Phone: [facility] Start: 05-14-2023 End: 05-14-2023 ambulatory [facility] [facility] Work Phone: Hematology/Oncology Comment on above: Malignant neoplasm o f hilus of right lung (HCC); Multiple myeloma, remission status unspecified (HCC); Anemia, unspecified type; Neuropathic pain; Anxiety; Neoplasm related pain (acute) (chronic); Multiple myeloma not having achieved remission (HCC); Malignant neoplasm of unspecified part of unspecified bronchus or lung (HCC) Multiple myeloma, re mission status unspecified (HCC) (Primary Dx) Malignant neoplasm o f hilus of right lung (HCC) (Primary Dx); Multiple myeloma not having achieved remission (HCC); Neuropathic pain; Anxiety Start: 05-07-2023 End: 05-07-2023 ambulatory AMBER MICHAEL Facility:[facility] Start: 05-07-2023 End: 05-07-2023 Subsequent hospital visit by physician Arrival Time Radiology Work Phone: Radiology Pet CT Comment on above: Malignant neoplasm o f unspecified part of unspecified bronchus or lung (HCC) [C34.90] Start: 05-04-2023 Telephone encounter Rhona hand RN Work Phone: Hematology/Oncology Comment on above: Care Coordination (M edication Question) Start: 05-04-2023 End: 05-04-2023 ambulatory [facility] Start: 05-03-2023 End: 05-03-2023 ambulatory LEXUS E LEXUS Facility:[facility] Start: 04-02-2023 End: 04-02-2023 ambulatory Chair 21 [facility] Work Phone: Hematology/Oncology Comment on above: Multiple myeloma, re mission status unspecified (HCC) (Primary Dx) Start: 04-02-2023 End: 04-02-2023 Nutrition therapy Amber Rodriguez APRN.REJECT OPENER AND FILLER Work Phone: Hematology/Oncology Comment on above: Malignant neoplasm o f hilus of right lung (HCC) (Primary Dx); Multiple myeloma, remission status unspecified (HCC); Anemia, unspecified type; Neuropathic pain; Anxiety; Neoplasm related pain (acute) (chronic); Multiple myeloma not having achieved remission (HCC); Malignant neoplasm of unspecified part of unspecified bronchus or lung (HCC); Malnutrition of mild degree (HCC); Moderate major depression, single episode (HCC) Start: 04-02-2023 End: 04-02-2023 Patient encounter procedure Amber Rodriguez APRN.REJECT OPENER AND FILLER Work Phone: [facility] Start: 03-12-2023 Refill Lexus E Girgi s DO Work Phone: Pain Management Comment on above: Refill Request Start: 03-08-2023 Refill Ja Becker MD Work Phone: Hematology/Oncology Comment on above: Refill Request Start: 02-21-2023 End: 02-21-2023 ambulatory Ja Becker Facility:[facility] Start: 02-20-2023 Telephone encounter Heidi Heck RN Hematology/Oncology Comment on above: Care Coordination (C BC Results; Transfusion) Start: 02-19-2023 End: 02-19-2023 ambulatory [facility] [facility] Work Phone: Hematology/Oncology Comment on above: Malignant neoplasm o f hilus of right lung (HCC); Multiple myeloma not having achieved remission (HCC) Malignant neoplasm o f hilus of right lung (HCC) (Primary Dx); Multiple myeloma not having achieved remission (HCC); Anxiety about health; Anemia, unspecified type Start: 02-19-2023 End: 02-19-2023 Patient encounter procedure Ja Becker MD Work Phone: [facility] Start: 02-14-2023 End: 02-14-2023 Subsequent hospital visit by physician Arrival Time Radiology Work Phone: Radiology Pet CT Start: 02-05-2023 Refill Ja Becker MD Work Phone: [facility] Comment on above: Refill Request Start: 01-01-2023 End: 01-01-2023 Patient encounter procedure Ja Becker MD Work Phone: [facility] Start: 01-01-2023 End: 01-01-2023 ambulatory [facility] [facility] Work Phone: Hematology/Oncology Comment on above: Malignant neoplasm o f prostate (HCC) (Primary Dx) Malignant neoplasm o f upper lobe of right lung (HCC) (Primary Dx); Multiple myeloma not having achieved remission (HCC); Neoplasm related pain (acute) (chronic); Anxiety Start: 12-26-2022 Refill Rhona santos RN Work Phone: Hematology/Oncology Comment on above: Refill Request (Norc o); Refill Request Start: 12-21-2022 Refill Ja Becker MD Work Phone: Hematology/Oncology Comment on above: Refill Request Start: 12-16-2022 End: 12-16-2022 ambulatory Prerna Grissom Facility:[facility] Start: 12-16-2022 End: 12-16-2022 ambulatory NON STAFF [facility] Work Phone: Start: 12-16-2022 End: 12-16-2022 Patient encounter procedure [facility] [place] Work Phone: Start: 12-08-2022 Refill Rhona santos RN Work Phone: Hematology/Oncology Comment on above: Refill Request (Klon opin) Start: 12-04-2022 End: 12-04-2022 Nutrition therapy Amber Rodriguez APRN.REJECT OPENER [employer] FILLER Work Phone: Hematology/Oncology Comment on above: Malignant neoplasm o f hilus of right lung (HCC) (Primary Dx); Multiple myeloma, remission status unspecified (HCC); Neoplasm related pain (acute) (chronic); Moderate major depression, single episode (HCC); Malnutrition of mild degree (HCC) Start: 12-04-2022 End: 12-04-2022 Patient encounter procedure Amber Rodriguez APRN.CNP Work Phone: [facility] Start: 12-04-2022 End: 12-04-2022 ambulatory [facility] [place] Work Phone: Hematology/Oncology Comment on above: Malignant neoplasm o f upper lobe of right lung (HCC); Multiple myeloma not having achieved remission (HCC); Neoplasm related pain (acute) (chronic); Opioid dependence, uncomplicated (HCC) Start: 11-15-2022 End: 11-15-2022 Subsequent hospital visit by physician General Cheyenne Merino Mc Work Phone: Radiology Comment on above: Malignant neoplasm o f upper lobe of right lung (HCC) [C34.11] Start: 10-31-2022 End: 10-31-2022 ambulatory Amber Rodriguez APRN.CNP Work Phone: Hematology/Oncology Comment on above: Malignant neoplasm o f upper lobe of right lung (HCC) (Primary Dx); Multiple myeloma not having achieved remission (HCC); Neoplasm related pain (acute) (chronic); Lesion of skin of right ear Multiple myeloma, re mission status unspecified (HCC) (Primary Dx) Start: 10-31-2022 End: 10-31-2022 Patient encounter procedure Amber Rodriguez APRN.CNP Work Phone: [facility] Start: 10-20-2022 Telephone encounter Rhona hand RN Work Phone: Hematology/Oncology Comment on above: Care Coordination (C 1D1 Post Treatment Call) Start: 10-09-2022 Refill Ja Becker MD Work Phone: Hematology/Oncology Comment on above: Refill Request Care Coordination (C linical update) Start: 10-06-2022 End: 10-07-[address] NICO STEPHENSON . Facility:[facility] Start: 10-04-2022 End: 10-05-2022 ambulatory PRERNA GRISSOM Facility:[facility] Start: 10-03-2022 Telephone encounter Rhona hand RN Work Phone: Hematology/Oncology Comment on above: Care Coordination (E mergency Room Call Back) Start: 10-02-2022 End: 10-02-2022 Emergency department patient visit Alberto Chappell Facility:[facility] Start: 10-02-2022 End: 10-02-2022 Emergency department patient visit [facility] Work Phone: Start: 10-02-2022 End: 10-02-2022 ambulatory Chair Alejandro Merino Work Phone: Hematology/Oncology Comment on above: Malignant neoplasm o f upper lobe of right lung (HCC) (Primary Dx) Start: 09-27-2022 Refill Rhona snatos RN Work Phone: Hematology/Oncology Comment on above: Refill Request (Norc o) Start: 09-26-2022 Telephone encounter Rhona hand RN Work Phone: Hematology/Oncology Comment on above: Care Coordination (T reatment Education) Start: 09-26-2022 End: 09-26-2022 Subsequent hospital visit by physician Arrival Time Radiology Work Phone: Radiology Pet CT Start: 09-17-2022 Refill Ja Becker MD Work Phone: Hematology/Oncology Comment on above: Refill Request Start: 09-11-2022 End: 09-11-2022 Patient encounter procedure Ja Becker MD Work Phone: [facility] Start: 09-11-2022 End: 09-11-2022 ambulatory [facility] [facility] Work Phone: Hematology/Oncology Comment on above: Malignant neoplasm o f upper lobe of right lung (HCC); Multiple myeloma not having achieved remission (HCC) Malignant neoplasm o f upper lobe of right lung (HCC) (Primary Dx); Multiple myeloma not having achieved remission (HCC); Neoplasm related pain (acute) (chronic); Neuropathic pain; Anxiety about health Start: 09-05-2022 Patient encounter procedure [facility] Provider [facility] Start: 08-22-2022 Refill Rhona santos RN Work Phone: Hematology/Oncology Comment on above: Refill Request (Norc o & Diazepam) Start: 08-14-2022 Patient encounter procedure G Santi Saunders MD Work Phone: [facility] Start: 08-14-2022 Radiation Oncology Note G Ace Saunders MD Work Phone: Radiation Oncology Comment on above: Completion Note Start: 08-09-2022 Refill Ja Becker MD Work Phone: Hematology/Oncology Comment on above: Refill Request Start: 08-09-2022 Telephone encounter Ja serrano MD Work Phone: Radiation Oncology Comment on above: Wheezing; Cough; Karen athing Problem Start: 08-08-2022 End: 08-08-2022 ambulatory Amber Rodriguez APRN.REJECT OPENER AND FILLER Work Phone: Hematology/Oncology Comment on above: Malignant neoplasm o f upper lobe of right lung (HCC) (Primary Dx); Multiple myeloma not having achieved remission (HCC); Anxiety; Neuropathic pain; Neoplasm related pain (acute) (chronic) Start: 08-08-2022 End: 08-08-2022 Patient encounter procedure Amber Rodriguez APRN.REJECT OPENER AND FILLER Work Phone: [facility] Start: 08-07-2022 End: 08-07-2022 Patient encounter procedure Marisabel Saunders MD Work Phone: Radiation Oncology Comment on above: Malignant neoplasm o f upper lobe of right lung (HCC) (Primary Dx) Start: 08-02-2022 Telephone encounter Ja serrano MD Work Phone: Hematology/Oncology Comment on above: Lab Orders Start: 08-01-2022 End: 08-01-2022 Patient encounter procedure Ja Becker MD Work Phone: [facility] Start: 08-01-2022 End: 08-01-2022 ambulatory [facility] [facility] Work Phone: Hematology/Oncology Comment on above: Malignant neoplasm o f upper lobe of right lung (HCC) Malignant neoplasm o f upper lobe of right lung (HCC) (Primary Dx); Multiple myeloma not having achieved remission (HCC); Anxiety; Neuropathic pain Start: 07-25-2022 End: 07-25-2022 Patient encounter procedure Glenys Kurtz PA-C Work Phone: [facility] Start: 07-25-2022 End: 07-25-2022 ambulatory [facility] Work Phone: Hematology/Oncology Comment on above: Malignant neoplasm o f upper lobe of right lung (HCC) Malignant neoplasm o f upper lobe of right lung (HCC) (Primary Dx); Neoplasm related pain (acute) (chronic); Multiple myeloma not having achieved remission (HCC) Malignant neoplasm o f upper lobe of right lung (HCC) (Primary Dx) Start: 07-18-2022 End: 07-18-2022 ambulatory Chair 7 [facility] Work Phone: Hematology/Oncology Comment on above: Malignant neoplasm o f upper lobe of right lung (HCC) (Primary Dx) Refill Request (Mult iple Meds) Malignant neoplasm o f upper lobe of right lung (HCC) (Primary Dx); Multiple myeloma not having achieved remission (HCC); Neoplasm related pain (acute) (chronic); Neuropathic pain; Anxiety about health Start: 07-18-2022 End: 07-18-2022 Patient encounter procedure Ja Becker MD Work Phone: [place] Start: 07-17-2022 End: 07-17-2022 Patient encounter procedure Marisabel Saunders MD Work Phone: Radiation Oncology Comment on above: Malignant neoplasm o f upper lobe of right lung (HCC) (Primary Dx) Start: 07-11-2022 Telephone encounter Ja serrano MD Work Phone: Cancer [facility] Comment on above: Future Appointment Start: 07-11-2022 End: 07-11-2022 ambulatory [facility] [place] Work Phone: Hematology/Oncology Comment on above: Malignant neoplasm o f upper lobe of right lung (HCC) Malignant neoplasm o f upper lobe of right lung (HCC) (Primary Dx); Multiple myeloma, remission status unspecified (HCC); Anxiety; Neoplasm related pain (acute) (chronic); Lesion of skin of right ear Malignant neoplasm o f upper lobe of right lung (HCC) (Primary Dx); Multiple myeloma, remission status unspecified (HCC) Start: 07-11-2022 End: 07-11-2022 Patient encounter procedure Amber Rodriguez APRN.REJECT OPENER AND FILLER Work Phone: [facility] Start: 07-07-2022 Telephone encounter Rhona Ruiz Hematology/Oncology Comment on above: Care Coordination (C 1D1 Post Treatment Call) Start: 07-04-2022 End: 07-04-2022 ambulatory [facility] [facility] Work Phone: Hematology/Oncology Comment on above: Malignant neoplasm o f upper lobe of right lung (HCC) Malignant neoplasm o f upper lobe of right lung (HCC) (Primary Dx) Start: 07-04-2022 End: 07-04-2022 Patient encounter procedure Marisabel Saunders MD Work Phone: Radiation Oncology Comment on above: Malignant neoplasm o f upper lobe of right lung (HCC) (Primary Dx) Start: 06-22-2022 End: 06-22-2022 Patient encounter procedure [facility] Provider [facility] Comment on above: Malignant neoplasm o f upper lobe of right lung (HCC) (Primary Dx) Start: 06-22-2022 Radiation Oncology Note Marisabel Saunders MD Work Phone: Radiation Oncology Comment on above: Simulation Note Treatment Planning Start: 06-22-2022 Telephone encounter Ja serrano MD Work Phone: Radiation Oncology Comment on above: Appointment Start: 06-22-2022 End: 06-22-2022 Subsequent hospital visit by physician Marisabel Saunders MD Work Phone: Radiology Pet CT Start: 06-16-2022 Telephone encounter Rhona hand RN Work Phone: Hematology/Oncology Comment on above: Care Coordination (P DL1 Testing) Refill Request (Norc o) Start: 06-15-2022 Telephone encounter Rhona hand RN Work Phone: Hematology/Oncology Comment on above: Care Coordination (T reatment Planning) Appointment Start: 06-14-2022 End: 06-14-2022 ambulatory HENRI ANDERSON Facility:[facility] Start: 06-13-2022 Telephone encounter Henri barahona MD Work Phone: [facility] Endoscopy - ENDO Comment on above: Appointment Start: 06-12-2022 End: 06-12-2022 Nursing evaluation of patient and report Ma Nurse Renard Oshea Work Phone: Hematology/Oncology Comment on above: Adenopathy (Primary Dx) Start: 06-05-2022 End: 06-05-2022 ambulatory HENRI ANDERSON Facility:[facility] Start: 06-05-2022 End: 06-05-2022 ambulatory Henri Anderson MD Work Phone: Pulmonology Comment on above: Adenopathy (Primary Dx); Abnormal PET of right lung; History of lung cancer; Multiple myeloma, remission status unspecified (HCC) Start: 06-05-2022 End: 06-05-2022 Telemedicine consultation with patient Henri Anderson MD Work Phone: [facility] Start: 06-02-2022 Admission to [facility] Ccf Provider Pre Anesthesia Comment on above: Pre-Op instructions for your upcoming surgery with Dr. Henri Anderson on 06/14/2022 Start: 06-02-2022 E-mail encounter fro m caregiver [facility] Provider [facility] Start: 05-30-2022 Telephone encounter Ja serrano MD Work Phone: Cancer [facility] Comment on above: Future Appointment Start: 05-30-2022 End: 05-30-2022 Patient encounter procedure Ja Becker MD Work Phone: [facility] Start: 05-30-2022 End: 05-30-2022 ambulatory [facility] [place] Work Phone: Hematology/Oncology Comment on above: Malignant neoplasm o f upper lobe of right lung (HCC) Malignant neoplasm o f upper lobe of right lung (HCC) (Primary Dx); Enlarged lymph nodes; Multiple myeloma not having achieved remission (HCC); Anxiety; Neuropathic pain Start: 05-23-2022 End: 05-23-2022 ambulatory UNKNOWN PROVIDER Facility:[facility] Start: 05-22-2022 Telephone encounter Ja serrano MD Work Phone: Hematology/Oncology Comment on above: Lab Orders Start: 05-17-2022 Orders Only Sridevi Nye RN [facility] ospital Radiology Procedure Comment on above: Surgical procedure, elective (Primary Dx) Start: 05-09-2022 Telephone encounter Marisabel Saunders MD Work Phone: Cancer [facility] Comment on above: Patient Update Start: 05-09-2022 End: 05-09-2022 Patient encounter procedure Marisabel Saunders MD Work Phone: Radiation Oncology Comment on above: Malignant neoplasm o f upper lobe of right lung (HCC) (Primary Dx) Start: 05-02-2022 End: 05-02-2022 ambulatory Ja Becker MD Work Phone: Hematology/Oncology Comment on above: Malignant neoplasm o f upper lobe of right lung (HCC) (Primary Dx); Multiple myeloma not having achieved remission (HCC); Anxiety; Neuropathic pain; Neoplasm related pain (acute) (chronic) Start: 05-02-2022 End: 05-02-2022 Patient encounter procedure Ja Becker MD Work Phone: [facility] Start: 04-28-2022 End: 04-28-2022 Subsequent hospital visit by physician Arrival Time Radiology Work Phone: Radiology Pet CT Start: 04-24-2022 End: 04-24-2022 Patient encounter procedure Lexus Alberts DO Work Phone: Pain Management Comment on above: History of lung canc er (Primary Dx); Chest wall pain; Intercostal neuralgia; Multiple myeloma, remission status unspecified (HCC) Start: 04-06-2022 Telephone encounter Rhona Ruiz Hematology/Oncology Comment on above: Handicap Joseph Start: 04-06-2022 End: 04-06-2022 ambulatory Chair 14 [facility] Work Phone: Hematology/Oncology Comment on above: Multiple myeloma, re mission status unspecified (HCC) (Primary Dx) Start: 03-30-2022 End: 03-30-2022 Subsequent hospital visit by physician Arrival Time Radiology Work Phone: Radiology Pet CT Start: 03-13-2022 Refill Rhona santos RN Work Phone: Hematology/Oncology Comment on above: Refill Request (Hydr ocodone) Start: 03-03-2022 Refill Amber Rodriguez SYRUP MACHINE LABORER.REJECT OPENER AND FILLER Work Phone: Hematology/Oncology Comment on above: Refill Request Start: 02-23-2022 Social Work Yanira Plasencia OFFICE CLERK ASSISTANT Hematolo gy/Oncology Start: 02-07-2022 Refill Lexus E Girgi s DO Work Phone: Pain Management Comment on above: Refill Request Start: 01-31-2022 Refill Amber Rodriguez SYRUP MACHINE LABORER.REJECT OPENER AND FILLER Work Phone: Hematology/Oncology Comment on above: Refill Request Start: 01-30-2022 Refill Lexus E Girgi s DO Work Phone: Pain Management Comment on above: Refill Request Start: 01-12-2022 End: 01-12-2022 ambulatory Chair 13 [facility] Work Phone: Hematology/Oncology Comment on above: Multiple myeloma, re mission status unspecified (HCC) (Primary Dx) Multiple myeloma not having achieved remission (HCC) (Primary Dx); Malignant neoplasm of upper lobe of right lung (HCC); Neoplasm related pain (acute) (chronic); Neuropathic pain; Anxiety about health Start: 01-12-2022 End: 01-12-2022 Patient encounter procedure Ja Becker MD Work Phone: [facility] Start: 12-20-2021 Refill Amber Rodriguez SYRUP MACHINE LABORER.REJECT OPENER AND FILLER Work Phone: Hematology/Oncology Comment on above: Refill Request Start: 11-23-2021 Refill Ja Becker MD Work Phone: Hematology/Oncology Comment on above: Refill Request Start: 11-07-2021 Refill Ja Becker MD Work Phone: Hematology/Oncology Comment on above: Refill Request Start: 11-04-2021 Refill Ja Becker MD Work Phone: Hematology/Oncology Comment on above: Refill Request Start: 10-31-2021 Refill Flynn barros PA-C Work Phone: Pain Management Comment on above: Refill Request Start: 10-08-2021 Refill Ja Becker MD Work Phone: Hematology/Oncology Comment on above: Refill Request Start: 10-06-2021 End: 10-06-2021 ambulatory Chair 13 [facility] Work Phone: Hematology/Oncology Comment on above: Multiple myeloma, re mission status unspecified (HCC) (Primary Dx) Multiple myeloma not having achieved remission (HCC) (Primary Dx); Malignant neoplasm of upper lobe of right lung (HCC); Neoplasm related pain (acute) (chronic); Neuropathic pain; Anxiety Start: 10-06-2021 End: 10-06-2021 Patient encounter procedure Ja Becker MD Work Phone: [facility] Start: 10-05-2021 Telephone encounter Holly Velarde RN Hematology/Oncology Comment on above: Results Start: 10-03-2021 Refill Ja Becker MD Work Phone: Hematology/Oncology Comment on above: Refill Request Start: 09-29-2021 End: 09-29-2021 Subsequent hospital visit by physician Arrival Time Radiology Work Phone: Radiology Pet CT Procedures Date Procedure Procedure Detail Performing Clinician Start: 04-24-2024 End: 04-24-2024 CRYOTHERAPY SKIN LESION Ember Delarosa Work Phone: Start: 04-17-2024 [facility] CBC W AUTO DIFF BLD Generic External Data Provider Start: 04-17-2024 Blood count complete auto&auto difrntl wbc Glenys Kurtz PA-C Work Phone: Start: 04-10-2024 Ct thorax w/o contra st material Glenys Kurtz PA-C Work Phone: Start: 2024 Basic metabolic pane l calcium ionized Ja Becker MD Work Phone: Start: 2024 Blood count complete auto&auto difrntl wbc Glenys Kurtz PA-C Work Phone: Start: 01-07-2024 Follow-up visit Follow-up STUART GRUBERID Start: 10-29-2023 Blood count complete auto&auto difrntl wbc Ja Becker MD Work Phone: Start: 10-22-2023 Ct thorax w/o contra st material Ja Becker MD Work Phone: Start: 08-06-2023 Blood count complete auto&auto difrntl wbc Glenys Kurtz PA-C Work Phone: Start: 08-03-2023 Ct thorax w/o contra st material Glenys Pearsoner PA-C Work Phone: Start: 05-14-2023 Blood count complete auto&auto difrntl wbc Amber Rodriguez SYRUP MACHINE LABORER.REJECT OPENER AND FILLER Work Phone: Start: 05-07-2023 Ct thorax w/o contra st material Amber Rodriguez SYRUP MACHINE LABORER.REJECT OPENER AND FILLER Work Phone: Start: 02-20-2023 Antibody screen lAberto Chappell Comment on above: Order Comment: Trans fuse now? N Result Comment: PERF ORMED BY: [facility] [address] [place] [address] PATHOLOGIST [employer] [facility] PARTNER PREET MUNOZ M.D. Start: 02-19-2023 Basic metabolic pane l calcium total Ja Becker MD Work Phone: Start: 02-14-2023 Ct thorax w/o contra st material Ja Becker MD Work Phone: Start: 01-01-2023 Blood count complete auto&auto difrntl wbc Amber Rodriguez SYRUP MACHINE LABORER.REJECT OPENER AND FILLER Work Phone: Start: 12-16-2022 MRI of head Start: 12-04-2022 Blood count complete auto&auto difrntl wbc Amber Rodriguez SYRUP MACHINE LABORER.REJECT OPENER AND FILLER Work Phone: Start: 11-15-2022 Radiologic exam ches t 2 views Amber Rodriguez SYRUP MACHINE LABORER.REJECT OPENER AND FILLER Work Phone: Start: 10-02-2022 CT of head without contrast Start: 10-02-2022 Plain chest X-ray Start: 09-26-2022 Ct thorax w/o contra st material Ja Becker MD Work Phone: Start: 09-11-2022 Blood count complete auto&auto difrntl wbc Ja Becker MD Work Phone: Start: 08-01-2022 Blood count complete auto&auto difrntl wbc Glenys Crowe Kitty PA-C Work Phone: Start: 07-25-2022 CBC + DIFF Glenys Crowe sser PA-C Work Phone: Start: 07-25-2022 Comprehensive metabo lic panel Glenys Crowe Kitty PA-C Work Phone: Start: 07-11-2022 End: 07-11-2022 Blood count complete auto&auto difrntl wbc Amber Rodriguez SYRUP MACHINE LABORER.REJECT OPENER AND FILLER Work Phone: Start: 07-04-2022 Blood count complete auto&auto difrntl wbc Glenys Crowe Kitty PA-C Work Phone: Start: 05-30-2022 Blood count complete auto&auto difrntl wbc Ja Becker MD Work Phone: Start: 04-28-[address] atten uation skull base mid-thigh Ja Becker MD Work Phone: Start: 04-28-2022 Gluc bld gluc mntr d ev cleared fda spec home use [facility] Provider Start: 03-30-2022 Ct thorax w/o contra st material Ja Becker MD Work Phone: Start: 09-29-2021 Ct thorax w/contrast material Ja Becker MD Work Phone: Start: 09-29-2021 Blood count complete auto&auto difrntl wbc Ja Becker MD Work Phone: Start: 09-29-2021 Immunofixj electroph oresis serum Ja Becker MD Work Phone: Start: 09-29-2021 KAPPA/LOMBARDI,FREE,SER Emy Becker MD Work Phone: Start: 09-29-2021 MONOCLONAL PROTEIN, SERUM (BLOOD) Ja Becker MD Work Phone: Start: 09-29-2021 PROT ELECT WITH KAYLA AND INTERP Ja Becker MD Work Phone: Start: 09-29-2021 PROTEIN ELECTROPHORE SIS SERUM WITH KAYLA (P) Ja Becker MD Work Phone: Start: 12-21-2020 Adult depression scr eening assessment Ja Becker MD Work Phone: Plan of Treatment Date Care Activity Detail Author Start: 05-21-2033 DTaP,Tdap and Td Vac cines (5 - Td or Tdap) DTaP,Tdap and Td Vaccines (5 - Td or Tdap) [facility] Start: 05-21-2033 Urine microalbumin profile DTaP,Tdap,Td Vaccine (5 - Td or Tdap) [facility] Start: 02-02-2031 Urine microalbumin profile [facility] Start: 04-17-2027 Diabetes Screening Diabetes Screenin [facility] Start: 01-16-2027 Diabetes Screening Diabetes Screenin [facility] Start: 10-28-2026 Diabetes Screening Diabetes Screenin [facility] Start: 08-06-2026 Diabetes Screening Diabetes Screenin [facility] Start: 07-09-2026 Diabetes Screening Diabetes Screenin g [facility] Start: 05-14-2026 Diabetes Screening Diabetes Screenin g [facility] Start: 04-02-2026 Diabetes Screening Diabetes Screenin g [facility] Start: 02-19-2026 DIABETES SCREEN DIABETES SCREEN [facility] Start: 02-19-2026 Diabetes Screening Diabetes Screenin g [facility] Start: 01-01-2026 DIABETES SCREEN DIABETES SCREEN [facility] Start: 12-04-2025 DIABETES SCREEN DIABETES SCREEN [facility] Start: 10-31-2025 DIABETES SCREEN DIABETES SCREEN [facility] Start: 10-17-2025 DIABETES SCREEN DIABETES SCREEN [facility] Start: 10-02-2025 DIABETES SCREEN DIABETES SCREEN [facility] Start: 09-11-2025 DIABETES SCREEN DIABETES SCREEN [facility] Start: 08-08-2025 DIABET[facility]CREEN [facility] Start: 08-01-2025 DIABETES SCREEN [facility] Start: 07-25-2025 DIABETES SCREEN [facility] Start: 07-18-2025 DIABETES SCREEN [facility] Start: 07-11-2025 DIABETES SCREEN [facility] Start: 07-04-2025 DIABETES SCREEN [facility] Start: 05-30-2025 DIABETES SCREEN [facility] Start: 04-16-2025 Tobacco Screening Tobacco Screening [facility] Start: 04-06-2025 DIABETES SCREEN [facility]CREEN [facility] Start: 03-20-2025 Adult BMI Screening Adult BMI Screen ing [facility] Start: 01-14-2025 End: 01-14-2025 Patient encounter procedure 01/14/2025 1:45 PM EDT Office Visit [facility] [address] [place] [address] [place] [address] Stuart Wright MD [address] [place] [id number] [facility] Start: 01-12-2025 DIABETES SCREEN DIABETES SCREEN [facility] Start: 01-11-2025 End: 11-03-2025 Prostatic specific antigen, diagnostic Prostatic specific antigen, diagnostic Lab Routine Elevated PSA Expected: 01/11/2025, Expires: 11/03/2025 [facility] Work Phone: Comment on above: Expected: 01/11/2025 , Expires: 11/03/2025 Start: 09-29-2024 DIABETES SCREEN DIABETES SCREEN [facility] Start: 07-17-2024 End: 07-17-2024 Follow-up encounter Hematology/Oncology Comment on above: 3 month follow up [facility] lab port chemotx aredia Start: 05-27-2024 End: 05-27-2024 Patient encounter procedure 05/27/2024 1:20 PM EST Office Visit [facility] [address] [place] [phone] Ember Dalton PA [address] [place] [phone] [facility] Start: 04-24-2024 End: 04-24-2024 Patient encounter procedure 04/24/2024 1:10 PM EDT Office Visit [facility] [address] [place] [phone] Ember Dalton, PA [address] [place] [address] Arrived [facility] Comment on above: Arrived Start: 04-18-2024 End: 07-18-2024 CBC W Auto Differential panel - Blood COMPLETE BLOOD COUNT AND DIFFERENTIAL Lab Routine Multiple myeloma not having achieved remission (HCC) 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) Anemia, unspecified type Expected: 04/18/2024 (Approximate), Expires: 07/18/2024 [facility] Comment on above: Expected: 04/18/2024 (Approximate), Expires: 07/18/2024 Start: 04-18-2024 End: 07-18-2024 Comprehensive metabolic 2000 panel - Serum or Plasma COMPREHENSIVE METABOLIC PANEL Lab Routine Multiple myeloma not having achieved remission (HCC) 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) Anemia, unspecified type Expected: 04/18/2024 (Approximate), Expires: 07/18/2024 [facility] Work Phone: Comment on above: Expected: 04/18/2024 (Approximate), Expires: 07/18/2024 Start: 04-18-2024 End: 02-15-2025 CT Chest WO contrast CT CHEST WO IVCON Radiology Routine Malignant neoplasm of unspecified part of unspecified bronchus or lung (HCC) Expected: 04/18/2024, Expires: 02/15/2025 [facility] Comment on above: Expected: 04/18/2024 , Expires: 02/15/2025 Start: 04-18-2024 End: 07-18-2024 Ferritin [Mass/volume] in Serum or Plasma FERRITIN Lab Routine Multiple myeloma not having achieved remission (HCC) 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) Anemia, unspecified type Expected: 04/18/2024 (Approximate), Expires: 07/18/2024 [facility] Comment on above: Expected: 04/18/2024 (Approximate), Expires: 07/18/2024 Start: 04-18-2024 End: 07-18-2024 Iron and Iron binding capacity panel - Serum or Plasma IRON AND TIBC Lab Routine Multiple myeloma not having achieved remission (HCC) 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) Anemia, unspecified type Expected: 04/18/2024 (Approximate), Expires: 07/18/2024 [facility] Comment on above: Expected: 04/18/2024 (Approximate), Expires: 07/18/2024 Start: 04-18-2024 End: 07-18-2024 MONOCLONAL PROTEIN, SERUM (BLOOD) MONOCLONAL PROTEIN, SERUM (BLOOD) Lab Routine Multiple myeloma not having achieved remission (HCC) 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) Anemia, unspecified type Expected: 04/18/2024 (Approximate), Expires: 07/18/2024 [facility] Comment on above: Expected: 04/18/2024 (Approximate), Expires: 07/18/2024 Start: 04-18-2024 End: 07-18-2024 PROTEIN ELECTROPHORESIS SERUM W/INTERP PROTEIN ELECTROPHORESIS SERUM W/INTERP Lab Routine Multiple myeloma not having achieved remission (HCC) 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) Anemia, unspecified type Expected: 04/18/2024 (Approximate), Expires: 07/18/2024 [facility] Comment on above: Expected: 04/18/2024 (Approximate), Expires: 07/18/2024 Start: 04-17-2024 End: 04-17-2024 Follow-up encounter Hematology/Oncology Comment on above: 3 month follow up wi lab port chemotx aredia, ct chest 1 week prior Start: 04-17-2024 End: 04-17-2024 ambulatory 04/17/2024 9:15 AM EDT [facility] Hematology/Oncology [address] [place] [address] [place] [address] Lab Hematology/Oncology Comment on above: Lab Start: 04-10-2024 End: 04-10-2024 Patient encounter procedure Radiology Pet CT Comment on above: ct chest wo AND LABS ct chest wo Start: 04-09-2024 End: 04-09-2024 Patient encounter procedure 04/09/2024 3:00 PM EDT Office Visit [facility] [address] [facility] [address] [place] [phone] Kylee nAdrade PA [address] [facility] [address] [place] [address] Arrived [facility] Comment on above: Arrived Start: 03-24-2024 End: 03-24-2024 Patient encounter procedure 03/24/2024 1:00 PM EDT Office Visit [facility] [address] [place] [address] Flynn Hopkins PA-C [address] [place] [address] 6 month follow up [facility] Comment on above: 6 month follow up Start: 03-02-2024 Covid-19 Vaccine () Covid-19 Vaccine () [facility] Start: 03-02-2024 Covid-19 Vaccine (4 - 2024-25 season) Covid-19 Vaccine ( season) [facility] Start: 03-02-2024 Influenza vaccination C [facility] Start: 01-21-2024 End: 01-21-2024 Follow-up encounter Hematology/Oncology Comment on above: 3 month follow up wi lab port chemotx aredia Start: 2024 End: 2024 Follow-up encounter Hematology/Oncology Comment on above: 3 month follow up wi lab port chemotx aredia Start: 01-16-2024 End: 04-16-2024 CBC W Auto Differential panel - Blood COMPLETE BLOOD COUNT AND DIFFERENTIAL Lab Routine Multiple myeloma not having achieved remission (HCC) Expected: 01/16/2024, Expires: 04/16/2024 [facility] Comment on above: Expected: 01/16/2024 , Expires: 04/16/2024 Start: 01-16-2024 End: 04-16-2024 Comprehensive metabolic 2000 panel - Serum or Plasma COMPREHENSIVE METABOLIC PANEL Lab Routine Multiple myeloma not having achieved remission (HCC) Expected: 01/16/2024, Expires: 04/16/2024 [facility] Work Phone: Comment on above: Expected: 01/16/2024 , Expires: 04/16/2024 Start: 01-16-2024 End: 04-16-2024 MONOCLONAL PROTEIN, SERUM (BLOOD) MONOCLONAL PROTEIN, SERUM (BLOOD) Lab Routine Multiple myeloma not having achieved remission (HCC) Expected: 01/16/2024, Expires: 04/16/2024 [facility] Comment on above: Expected: 01/16/2024 , Expires: 04/16/2024 Start: 01-16-2024 End: 04-16-2024 PROTEIN ELECTROPHORESIS SERUM W/INTERP PROTEIN ELECTROPHORESIS SERUM W/INTERP Lab Routine Multiple myeloma not having achieved remission (HCC) Expected: 01/16/2024, Expires: 04/16/2024 [facility] Comment on above: Expected: 01/16/2024 , Expires: 04/16/2024 Start: 07-02-2023 Advance Directive Discussion Advance Directive Discussion [facility] Start: 05-15-2023 End: 07-15-2023 CBC W Auto Differential panel - Blood CBC + DIFF Lab Routine 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) Multiple myeloma, remission status unspecified (HCC) Anemia, unspecified type Neuropathic pain Anxiety Neoplasm related pain (acute) (chronic) Multiple myeloma not having achieved remission (HCC) Malignant neoplasm of unspecified part of unspecified bronchus or lung (HCC) Expected: 05/15/2023, Expires: 07/15/2023 [facility] Work Phone: Comment on above: Expected: 05/15/2023 , Expires: 07/15/2023 Start: 05-15-2023 End: 07-15-2023 Comprehensive metabolic 2000 panel - Serum or Plasma COMP METABOLIC PANEL Lab Routine 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) Multiple myeloma, remission status unspecified (HCC) Anemia, unspecified type Neuropathic pain Anxiety Neoplasm related pain (acute) (chronic) Multiple myeloma not having achieved remission (HCC) Malignant neoplasm of unspecified part of unspecified bronchus or lung (HCC) Expected: 05/15/2023, Expires: 07/15/2023 [facility] Work Phone: Comment on above: Expected: 05/15/2023 , Expires: 07/15/2023 Start: 05-14-2023 End: 07-14-2023 CBC W Auto Differential panel - Blood CBC + DIFF Lab Routine 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) Multiple myeloma, remission status unspecified (HCC) Anemia, unspecified type Neuropathic pain Anxiety Neoplasm related pain (acute) (chronic) Multiple myeloma not having achieved remission (HCC) Malignant neoplasm of unspecified part of unspecified bronchus or lung (HCC) Expected: 05/14/2023, Expires: 07/14/2023 [facility] Work Phone: Comment on above: Expected: 05/14/2023 , Expires: 07/14/2023 Start: 05-14-2023 End: 07-14-2023 Comprehensive metabolic 2000 panel - Serum or Plasma COMP METABOLIC PANEL Lab Routine 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) Multiple myeloma, remission status unspecified (HCC) Anemia, unspecified type Neuropathic pain Anxiety Neoplasm related pain (acute) (chronic) Multiple myeloma not having achieved remission (HCC) Malignant neoplasm of unspecified part of unspecified bronchus or lung (HCC) Expected: 05/14/2023, Expires: 07/14/2023 [facility] Work Phone: Comment on above: Expected: 05/14/2023 , Expires: 07/14/2023 Start: 05-14-2023 End: 07-14-2023 MONOCLONAL PROTEIN, SERUM (BLOOD) [facility] Work Phone: Comment on above: Expected: 05/14/2023 , Expires: 07/14/2023 Start: 05-14-2023 End: 07-14-2023 PROT ELECT SERUM WITH KAYLA AND INTERP [facility] Work Phone: Comment on above: Expected: 05/14/2023 , Expires: 07/14/2023 Start: 03-02-2023 Covid-19 Vaccine () Covid-19 Vaccine () [facility] Start: 03-02-2023 Influenza vaccination C [facility] Start: 01-03-2023 End: 03-05-2023 CBC W Auto Differential panel - Blood CBC + DIFF Lab Routine 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) Multiple myeloma, remission status unspecified (HCC) Neoplasm related pain (acute) (chronic) Expected: 01/03/2023, Expires: 03/05/2023 [facility] Work Phone: Comment on above: Expected: 01/03/2023 , Expires: 03/05/2023 Start: 01-03-2023 End: 03-05-2023 Comprehensive metabolic 2000 panel - Serum or Plasma COMP METABOLIC PANEL Lab Routine 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) Multiple myeloma, remission status unspecified (HCC) Neoplasm related pain (acute) (chronic) Expected: 01/03/2023, Expires: 03/05/2023 [facility] Work Phone: Comment on above: Expected: 01/03/2023 , Expires: 03/05/2023 Start: 01-01-2023 End: 03-03-2023 MONOCLONAL PROTEIN, SERUM (BLOOD) [facility] Work Phone: Comment on above: Expected: 01/01/2023 , Expires: 03/03/2023 Start: 01-01-2023 End: 03-03-2023 PROT ELECT SERUM WITH KAYLA AND INTERP [facility] Work Phone: Comment on above: Expected: 01/01/2023 , Expires: 03/03/2023 Start: 11-14-2022 End: 01-14-2023 CBC W Auto Differential panel - Blood CBC + DIFF Lab Routine Malignant neoplasm of upper lobe of right lung (HCC) Multiple myeloma not having achieved remission (HCC) Neoplasm related pain (acute) (chronic) Lesion of skin of right ear Expected: 11/14/2022, Expires: 01/14/2023 [facility] Work Phone: Comment on above: Expected: 11/14/2022 , Expires: 01/14/2023 Start: 11-14-2022 End: 01-14-2023 Comprehensive metabolic 2000 panel - Serum or Plasma COMP METABOLIC PANEL Lab Routine Malignant neoplasm of upper lobe of right lung (HCC) Multiple myeloma not having achieved remission (HCC) Neoplasm related pain (acute) (chronic) Lesion of skin of right ear Expected: 11/14/2022, Expires: 01/14/2023 [facility] Work Phone: Comment on above: Expected: 11/14/2022 , Expires: 01/14/2023 Start: 09-11-2022 End: 11-11-2022 MONOCLONAL PROTEIN, SERUM (BLOOD) [facility] Work Phone: Comment on above: Expected: 09/11/2022 , Expires: 11/11/2022 Start: 09-11-2022 End: 11-11-2022 PROT ELECT SERUM WITH KAYLA AND INTERP [facility] Work Phone: Comment on above: Expected: 09/11/2022 , Expires: 11/11/2022 Start: 08-08-2022 End: 10-08-2022 Basic metabolic 2000 panel - Serum or Plasma [facility] Work Phone: Comment on above: Expected: 08/08/2022 , Expires: 10/08/2022 Start: 08-08-2022 End: 10-08-2022 CBC W Auto Differential panel - Blood [facility] Work Phone: Comment on above: Expected: 08/08/2022 , Expires: 10/08/2022 Start: 07-25-2022 End: 09-24-2022 CBC W Auto Differential panel - Blood [facility] Work Phone: Comment on above: Expected: 07/25/2022 , Expires: 09/24/2022 Start: 07-25-2022 End: 09-24-2022 Comprehensive metabolic 2000 panel - Serum or Plasma COMP METABOLIC PANEL Lab Routine Malignant neoplasm of upper lobe of right lung (HCC) Expected: 07/25/2022, Expires: 09/24/2022 [facility] Work Phone: Comment on above: Expected: 07/25/2022 , Expires: 09/24/2022 Start: 07-18-2022 End: 09-17-2022 CBC W Auto Differential panel - Blood CBC + DIFF Lab Routine Malignant neoplasm of upper lobe of right lung (HCC) Multiple myeloma, remission status unspecified (HCC) Anxiety Neoplasm related pain (acute) (chronic) Lesion of skin of right ear Expected: 07/18/2022, Expires: 09/17/2022 [facility] Work Phone: Comment on above: Expected: 07/18/2022 , Expires: 09/17/2022 Start: 07-18-2022 End: 09-17-2022 Comprehensive metabolic 2000 panel - Serum or Plasma COMP METABOLIC PANEL Lab Routine Malignant neoplasm of upper lobe of right lung (HCC) Multiple myeloma, remission status unspecified (HCC) Anxiety Neoplasm related pain (acute) (chronic) Lesion of skin of right ear Expected: 07/18/2022, Expires: 09/17/2022 [facility] Work Phone: Comment on above: Expected: 07/18/2022 , Expires: 09/17/2022 Start: 07-02-2022 ADVANCE DIRECTIVE DISCUSSION ADVANCE DIRECTIVE DISCUSSION [facility] Start: 07-02-2022 DEPRESSION ASSESSMENT DEPRESSION ASS ESSMENT [facility] Start: 05-30-2022 End: 07-30-2022 CBC W Auto Differential panel - Blood CBC + DIFF Lab Routine Malignant neoplasm of upper lobe of right lung (HCC) Expected: 05/30/2022, Expires: 07/30/2022 [facility] Work Phone: Comment on above: Expected: 05/30/2022 , Expires: 07/30/2022 Start: 05-30-2022 End: 07-30-2022 Comprehensive metabolic 2000 panel - Serum or Plasma COMP METABOLIC PANEL Lab Routine Malignant neoplasm of upper lobe of right lung (HCC) Expected: 05/30/2022, Expires: 07/30/2022 [facility] Work Phone: Comment on above: Expected: 05/30/2022 , Expires: 07/30/2022 Start: 05-17-2022 End: 07-17-2022 CBC panel - Blood by Automated count CBC Lab Routine Surgical procedure, elective Expected: 05/17/2022, Expires: 07/17/2022 [facility] Work Phone: Comment on above: Expected: 05/17/2022 , Expires: 07/17/2022 Start: 05-17-2022 End: 07-17-2022 PT panel - Platelet poor plasma by Coagulation assay PROTHROMBIN TIME/PT Lab Routine Surgical procedure, elective Expected: 05/17/2022, Expires: 07/17/2022 [facility] Work Phone: Comment on above: Expected: 05/17/2022 , Expires: 07/17/2022 Start: 03-30-2022 End: 05-30-2022 CBC W Auto Differential panel - Blood CBC + DIFF Lab Routine Multiple myeloma not having achieved remission (HCC) Malignant neoplasm of upper lobe of right lung (HCC) Expected: 03/30/2022 (Approximate), Expires: 05/30/2022 [facility] Work Phone: Comment on above: Expected: 03/30/2022 (Approximate), Expires: 05/30/2022 Start: 03-30-2022 End: 05-30-2022 Comprehensive metabolic 2000 panel - Serum or Plasma COMP METABOLIC PANEL Lab Routine Multiple myeloma not having achieved remission (HCC) Malignant neoplasm of upper lobe of right lung (HCC) Expected: 03/30/2022 (Approximate), Expires: 05/30/2022 [facility] Work Phone: Comment on above: Expected: 03/30/2022 (Approximate), Expires: 05/30/2022 Start: 03-30-2022 End: 02-11-2023 Ct thorax w/o contrast material CT CHEST WO IVCON Radiology Routine Expected: 03/30/2022 (Approximate), Expires: 02/11/2023 [facility] Work Phone: Comment on above: Expected: 03/30/2022 (Approximate), Expires: 02/11/2023 Start: 03-30-2022 End: 05-30-2022 MONOCLONAL PROTEIN, SERUM (BLOOD) MONOCLONAL PROTEIN, SERUM (BLOOD) Lab Routine Multiple myeloma not having achieved remission (HCC) Malignant neoplasm of upper lobe of right lung (HCC) Expected: 03/30/2022 (Approximate), Expires: 05/30/2022 [facility] Work Phone: Comment on above: Expected: 03/30/2022 (Approximate), Expires: 05/30/2022 Start: 03-30-2022 End: 05-30-2022 PROT ELECT SERUM WITH KAYLA AND INTERP PROT ELECT SERUM WITH KAYLA AND INTERP Lab Routine Multiple myeloma not having achieved remission (HCC) Malignant neoplasm of upper lobe of right lung (HCC) Expected: 03/30/2022 (Approximate), Expires: 05/30/2022 [facility] Work Phone: Comment on above: Expected: 03/30/2022 (Approximate), Expires: 05/30/2022 Start: 03-02-2022 Influenza vaccination INFLUENZA (#1) [facility] Start: 2022 RSV Vaccine (1 - 1-d ose 75+ series) RSV Vaccine (1 - 1-dose 75+ series) [facility] Start: 01-05-2022 End: 03-07-2022 CBC W Auto Differential panel - Blood CBC + DIFF Lab Routine Multiple myeloma not having achieved remission (HCC) Expected: 01/05/2022, Expires: 03/07/2022 [facility] Work Phone: Comment on above: Expected: 01/05/2022 , Expires: 03/07/2022 Start: 01-05-2022 End: 03-07-2022 Comprehensive metabolic 2000 panel - Serum or Plasma COMP METABOLIC PANEL Lab Routine Multiple myeloma not having achieved remission (HCC) Expected: 01/05/2022, Expires: 03/07/2022 [facility] Work Phone: Comment on above: Expected: 01/05/2022 , Expires: 03/07/2022 Start: 01-05-2022 End: 03-07-2022 MONOCLONAL PROTEIN, SERUM (BLOOD) MONOCLONAL PROTEIN, SERUM (BLOOD) Lab Routine Multiple myeloma not having achieved remission (HCC) Expected: 01/05/2022, Expires: 03/07/2022 [facility] Work Phone: Comment on above: Expected: 01/05/2022 , Expires: 03/07/2022 Start: 01-05-2022 End: 03-07-2022 PROT ELECT SERUM WITH KAYLA AND INTERP PROT ELECT SERUM WITH KAYLA AND INTERP Lab Routine Multiple myeloma not having achieved remission (HCC) Expected: 01/05/2022, Expires: 03/07/2022 [facility] Work Phone: Comment on above: Expected: 01/05/2022 , Expires: 03/07/2022 Start: 12-21-2021 Adult depression screening assessment DEPRESSION SCREENING [facility] Start: 08-27-2021 COVID-19 VACCINE (4 - Booster for Pfizer series) COVID-19 VACCINE (4 - Booster for Pfizer series) [facility] Start: 08-19-2021 COVID-19 VACCINE (4 - Booster for Pfizer series) COVID-19 VACCINE (4 - Booster for Pfizer series) [facility] Start: 07-22-2021 COVID-19 VACCINE (4 - Booster for Pfizer series) COVID-19 VACCINE (4 - Booster for Pfizer series) [facility] Start: 07-22-2021 COVID-19 VACCINE (4 - Pfizer risk series) COVID-19 VACCINE (4 - Pfizer risk series) [facility] Start: 07-02-2021 ADVANCE DIRECTIVE DISCUSSION ADVANCE DIRECTIVE DISCUSSION [facility] Start: 07-02-2021 DEPRESSION ASSESSMENT DEPRESSION ASS ESSMENT [facility] Start: 01-18-2012 Fall Risk Screening Fall Risk Screen ing [facility] Start: 2007 RSV Vaccine (1 - 1-d ose 60+ series) RSV Vaccine (1 - 1-dose 60+ series) [facility] Start: 1997 Administration of varicella zoster vaccine Zoster (Shingles) Vaccine (1 of 2) [facility] Start: 1997 SHINGRIX VACCINE (1 of 2) MYERS GRIX VACCINE (1 of 2) [facility] Start: 01-18-1992 COLOGUARD (FIT-DNA) COLOGUARD (FIT-D NA) [facility] Start: 01-18-1992 Colonoscopy COLONOSCOPY [facility] Start: 01-18-1992 COLORECTAL CANCER SCREENING COLORECTAL CANCER SCREENING [facility] Start: 01-18-[address] COLONOGRAPHY [facility] Start: 01-18-1992 FECAL OCCULT BLOOD FECAL OCCULT BLOO D [facility] Start: 01-18-1992 SIGMOIDOSCOPY SIGMOIDOSCOPY [facility] Start: 1982 LIPID SCREEN LIPID SCREEN [facility] Start: 1966 SHINGRIX VACCINE (1 of 2) MYERS GRIX VACCINE (1 of 2) [facility] Start: 1965 ANNUAL PCP TEAM ASBESTOS HANDLER SYLVESTER DISEASE VISIT ANNUAL PCP TEAM CHRONIC DISEASE VISIT [facility] Start: 1965 Anxiety Screening Anxiety Screening [facility] Start: 1965 Hepatitis B surface antibody level LDL CHOLESTEROL [facility] Start: 1965 HEPATITIS C SCREENING HEPATITIS C [facility] Start: 1965 Hepatitis C screening Hepatitis C [facility] Start: 1959 Depression Screening Depression Scre ening [facility] Start: 1947 ABDOMINAL AORTIC ANE URYSM SCREENING ABDOMINAL AORTIC ANEURYSM SCREENING [facility] Start: 1947 Medicare Annual Well ness Visit Medicare Annual Wellness Visit [facility] CT SIM PLANNING RADI ATION ONCOLOGY CT SIM PLANNING RADIATION ONCOLOGY Radiology Routine Malignant neoplasm of upper lobe of right lung (HCC) Ordered: 06/29/2022 [facility] Work Phone: Comment on above: Ordered: 06/29/2022 End: 10-11-2023 Ct thorax w/o contrast material CT CHEST WO IVCON Radiology Routine 1 Occurrences starting 09/11/2022 until 10/11/2023 [facility] Work Phone: Comment on above: 1 Occurrences starti ng 09/11/2022 until 10/11/2023 End: 01-31-2024 Ct thorax w/o contrast material CT CHEST WO IVCON Radiology Routine 1 Occurrences starting 01/01/2023 until 01/31/2024 [facility] Work Phone: Comment on above: 1 Occurrences starti ng 01/01/2023 until 01/31/2024 End: 05-01-2024 Ct thorax w/o contrast material CT CHEST WO IVCON Radiology Routine Malignant neoplasm of unspecified part of unspecified bronchus or lung (HCC) 1 Occurrences starting 04/02/2023 until 05/01/2024 [facility] Work Phone: Comment on above: 1 Occurrences starti ng 04/02/2023 until 05/01/2024 Ferritin [Mass/volum e] in Serum or Plasma FERRITIN Lab Routine Multiple myeloma not having achieved remission (HCC) 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) Anemia, unspecified type 04/17/2024 10:00 AM [facility] IMMUNOFIXATION SCREE N, SERUM IMMUNOFIXATION SCREEN, SERUM Lab Routine Malignant neoplasm of upper lobe of right lung (HCC) Multiple myeloma not having achieved remission (HCC) 09/11/2022 9:43 AM [facility] Work Phone: IMMUNOFIXATION SCREE N, SERUM IMMUNOFIXATION SCREEN, SERUM Lab Routine 01/01/2023 10:04 AM [facility] Work Phone: IMMUNOFIXATION SCREE N, SERUM IMMUNOFIXATION SCREEN, SERUM Lab Routine 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) Multiple myeloma not having achieved remission (HCC) 02/19/2023 9:40 AM [facility] Work Phone: IMMUNOFIXATION SCREE N, SERUM IMMUNOFIXATION SCREEN, SERUM Lab Routine 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) Multiple myeloma, remission status unspecified (HCC) Anemia, unspecified type Neuropathic pain Anxiety Neoplasm related pain (acute) (chronic) Multiple myeloma not having achieved remission (HCC) Malignant neoplasm of unspecified part of unspecified bronchus or lung (HCC) 05/14/2023 9:42 AM [facility] Work Phone: IMMUNOFIXATION SCREE N, SERUM IMMUNOFIXATION SCREEN, SERUM Lab Routine Malnutrition of mild degree (HCC) Moderate major depression, single episode (HCC) Multiple myeloma, remission status unspecified (HCC) 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) 08/06/2023 9:58 AM [facility] Work Phone: IMMUNOFIXATION SCREE N, SERUM IMMUNOFIXATION SCREEN, SERUM Lab Routine 10/29/2023 10:18 AM [facility] IMMUNOFIXATION SCREE N, SERUM IMMUNOFIXATION SCREEN, SERUM Lab Routine Multiple myeloma not having achieved remission (HCC) 2024 9:36 AM [facility] IMMUNOFIXATION SCREE N, SERUM IMMUNOFIXATION SCREEN, SERUM Lab Routine Multiple myeloma not having achieved remission (HCC) 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) Anemia, unspecified type 04/17/2024 10:00 AM [facility] IMMUNOGLOBULINS JONH IMMUNOGLOBUL INS JONH Lab Routine 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) Multiple myeloma not having achieved remission (HCC) 02/19/2023 9:40 AM [facility] Work Phone: IMMUNOGLOBULINS JONH IMMUNOGLOBUL INS JONH Lab Routine 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) Multiple myeloma, remission status unspecified (HCC) Anemia, unspecified type Neuropathic pain Anxiety Neoplasm related pain (acute) (chronic) Multiple myeloma not having achieved remission (HCC) Malignant neoplasm of unspecified part of unspecified bronchus or lung (HCC) 05/14/2023 9:42 AM [facility] Work Phone: IMMUNOGLOBULINS JONH IMMUNOGLOBUL INS JONH Lab Routine Malnutrition of mild degree (HCC) Moderate major depression, single episode (HCC) Multiple myeloma, remission status unspecified (HCC) 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) 08/06/2023 9:58 AM [facility] Work Phone: IMMUNOGLOBULINS,IGG, IGA,I GM IMMUNOGLOBULINS,IGG,IGA, IGM Lab Routine Multiple myeloma not having achieved remission (HCC) 2024 9:36 AM [facility] IMMUNOGLOBULINS,IGG, IGA,I GM IMMUNOGLOBULINS,IGG,IGA, IGM Lab Routine Multiple myeloma not having achieved remission (HCC) 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) Anemia, unspecified type 04/17/2024 10:00 AM [facility] Iron and Iron bindin g capacity panel - Serum or Plasma IRON AND TIBC Lab Routine Multiple myeloma not having achieved remission (HCC) 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) Anemia, unspecified type 04/17/2024 10:00 AM [facility] Work Phone: KAPPA/LOMBARDI,FREE,SER KAPPA/LOMBARDI,F REE,SER Lab Routine Malignant neoplasm of upper lobe of right lung (HCC) Multiple myeloma not having achieved remission (HCC) 09/11/2022 9:43 AM [facility] Work Phone: KAPPA/LOMBARDI,FREE,SER KAPPA/LOMBARDI,F REE,SER Lab Routine 01/01/2023 10:04 AM [facility] Work Phone: KAPPA/LOMBARDI,FREE,SER KAPPA/LOMBARDI,F REE,SER Lab Routine 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) Multiple myeloma not having achieved remission (HCC) 02/19/2023 9:40 AM [facility] Work Phone: KAPPA/LOMBARDI,FREE,SER KAPPA/LOMBARDI,F REE,SER Lab Routine 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) Multiple myeloma, remission status unspecified (HCC) Anemia, unspecified type Neuropathic pain Anxiety Neoplasm related pain (acute) (chronic) Multiple myeloma not having achieved remission (HCC) Malignant neoplasm of unspecified part of unspecified bronchus or lung (HCC) 05/14/2023 9:42 AM [facility] Work Phone: KAPPA/LOMBARDI,FREE,SER KAPPA/LOMBARDI,F REE,SER Lab Routine Malnutrition of mild degree (HCC) Moderate major depression, single episode (HCC) Multiple myeloma, remission status unspecified (HCC) 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) 08/06/2023 9:58 AM [facility] Work Phone: KAPPA/LOMBARDI,FREE,SER KAPPA/LOMBARDI,F REE,SER Lab Routine 10/29/2023 10:18 AM [facility] KAPPA/LOMBARDI,FREE,SER KAPPA/LOMBARDI,F REE,SER Lab Routine Multiple myeloma not having achieved remission (HCC) 2024 9:36 AM [facility] KAPPA/LOMBARDI,FREE,SER KAPPA/LOMBARDI,F REE,SER Lab Routine Multiple myeloma not having achieved remission (HCC) 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) Anemia, unspecified type 04/17/2024 10:00 AM [facility] MONOCLONAL PROTEIN, SERUM (BLOOD) MONOCLONAL PROTEIN, SERUM (BLOOD) Lab Routine 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) Multiple myeloma not having achieved remission (HCC) 02/19/2023 9:40 AM [facility] Work Phone: MONOCLONAL PROTEIN, SERUM (BLOOD) MONOCLONAL PROTEIN, SERUM (BLOOD) Lab Routine Malnutrition of mild degree (HCC) Moderate major depression, single episode (HCC) Multiple myeloma, remission status unspecified (HCC) 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) 08/06/2023 9:58 AM [facility] Work Phone: MONOCLONAL PROTEIN, SERUM (BLOOD) MONOCLONAL PROTEIN, SERUM (BLOOD) Lab Routine 10/29/2023 10:18 AM [facility] Work Phone: MONOCLONAL PROTEIN, SERUM (BLOOD) MONOCLONAL PROTEIN, SERUM (BLOOD) Lab Routine Multiple myeloma not having achieved remission (HCC) 2024 9:36 AM [facility] Work Phone: MONOCLONAL PROTEIN, SERUM (BLOOD) MONOCLONAL PROTEIN, SERUM (BLOOD) Lab Routine Multiple myeloma not having achieved remission (HCC) 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) Anemia, unspecified type 04/17/2024 10:00 AM T [facility] End: 01-03-2024 Mri brain brain stem w/o w/contrast material MRI BRAIN WO/W IVCON Radiology Routine 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) 1 Occurrences starting 12/04/2022 until 01/03/2024 [facility] Work Phone: Comment on above: 1 Occurrences starti ng 12/04/2022 until 01/03/2024 Patient Education Low Magnesium Level Normocytic Normochromic Anemia Fatigue ED [facility] Work Phone: Patient referral [facility] Work Phone: PROT ELECT SERUM WIT H KAYLA AND INTERP PROT ELECT SERUM WITH KAYLA AND INTERP Lab Routine 10/29/2023 10:18 AM [facility] Protein [Mass/volume ] in Serum or Plasma PROTEIN TOTAL BLD Lab Routine Malignant neoplasm of upper lobe of right lung (HCC) Multiple myeloma not having achieved remission (HCC) 09/11/2022 9:43 AM [facility] Work Phone: Protein [Mass/volume ] in Serum or Plasma PROTEIN TOTAL BLD Lab Routine Malnutrition of mild degree (HCC) Moderate major depression, single episode (HCC) Multiple myeloma, remission status unspecified (HCC) 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) 08/06/2023 9:58 AM [facility] Work Phone: Protein [Mass/volume ] in Serum or Plasma PROTEIN, TOTAL Lab Routine 10/29/2023 10:18 AM T [facility] Protein [Mass/volume ] in Serum or Plasma PROTEIN, TOTAL Lab Routine Multiple myeloma not having achieved remission (HCC) 2024 9:36 AM T [facility] Protein [Mass/volume ] in Serum or Plasma PROTEIN, TOTAL Lab Routine Multiple myeloma not having achieved remission (HCC) 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) Anemia, unspecified type 04/17/2024 10:00 AM T [facility] PROTEIN ELECTROPHORE SIS SERUM (P) PROTEIN ELECTROPHORESIS SERUM (P) Lab Routine Malnutrition of mild degree (HCC) Moderate major depression, single episode (HCC) Multiple myeloma, remission status unspecified (HCC) 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) 08/06/2023 9:58 AM [facility] Work Phone: PROTEIN ELECTROPHORE SIS SERUM (P) PROTEIN ELECTROPHORESIS SERUM (P) Lab Routine Multiple myeloma not having achieved remission (HCC) 2024 9:36 AM [facility] PROTEIN ELECTROPHORE SIS SERUM (P) PROTEIN ELECTROPHORESIS SERUM (P) Lab Routine Multiple myeloma not having achieved remission (HCC) 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) Anemia, unspecified type 04/17/2024 10:00 AM [facility] PROTEIN ELECTROPHORE SIS SERUM W/INTERP PROTEIN ELECTROPHORESIS SERUM W/INTERP Lab Routine Malnutrition of mild degree (HCC) Moderate major depression, single episode (HCC) Multiple myeloma, remission status unspecified (HCC) 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) 08/06/2023 9:58 AM [facility] Work Phone: PROTEIN ELECTROPHORE SIS SERUM W/INTERP PROTEIN ELECTROPHORESIS SERUM W/INTERP Lab Routine Multiple myeloma not having achieved remission (HCC) 2024 9:36 AM [facility] PROTEIN ELECTROPHORE SIS SERUM W/INTERP PROTEIN ELECTROPHORESIS SERUM W/INTERP Lab Routine Multiple myeloma not having achieved remission (HCC) 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) Anemia, unspecified type 04/17/2024 10:00 AM [facility] PROTEIN ELECTROPHORE SIS SERUM WITH KAYLA (P) PROTEIN ELECTROPHORESIS SERUM WITH KAYLA (P) Lab Routine Malignant neoplasm of upper lobe of right lung (HCC) Multiple myeloma not having achieved remission (HCC) 09/11/2022 9:43 AM [facility] Work Phone: PROTEIN ELECTROPHORE SIS SERUM WITH KAYLA (P) PROTEIN ELECTROPHORESIS SERUM WITH KAYLA (P) Lab Routine 01/01/2023 10:04 AM [facility] Work Phone: PROTEIN ELECTROPHORE SIS SERUM WITH KAYLA (P) PROTEIN ELECTROPHORESIS SERUM WITH KAYLA (P) Lab Routine 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) Multiple myeloma, remission status unspecified (HCC) Anemia, unspecified type Neuropathic pain Anxiety Neoplasm related pain (acute) (chronic) Multiple myeloma not having achieved remission (HCC) Malignant neoplasm of unspecified part of unspecified bronchus or lung (HCC) 05/14/2023 9:42 AM EST [facility] Work Phone: PROTEIN ELECTROPHORE SIS SERUM WITH KAYLA (P) PROTEIN ELECTROPHORESIS SERUM WITH KAYLA (P) Lab Routine 10/29/2023 10:18 AM EDT [facility] End: 11-05-2022 Radiologic examination osseous survey compl XR BONE SURVEY ROUTINE Radiology Routine Multiple myeloma not having achieved remission (HCC) 1 Occurrences starting 10/06/2021 until 11/05/2022 [facility] Work Phone: Comment on above: 1 Occurrences starti ng 10/06/2021 until 11/05/2022 REFERRAL FOR ADDITIO NAL BIOMARKER AND MOLECULAR TESTING REFERRAL FOR ADDITIONAL BIOMARKER AND MOLECULAR TESTING Lab Routine Malignant neoplasm of upper lobe of right lung (HCC) 06/16/2022 12:01 PM EST [facility] Work Phone: [facility] Immunizations Immunization Date Immunization Notes Care Provider Walt price 04-08-2024 influenza, high dose seasonal, preservative-free Kylee KING Work Phone: [facility] 05-21-2023 tetanus toxoid, redu zuri diphtheria toxoid, and acellular pertussis vaccine, adsorbed Ja Becker MD Work Phone: [facility] 03-16-2022 influenza, high-dose , quadrivalent vaccine (FLUZONE HIGH DOSE QUADRIVALENT) Ja Becker MD Work Phone: [facility] 03-16-2022 influenza virus vacc ine, unspecified formulation Lexus Alberts DO Work Phone: [facility] 05-27-2021 COVID-19 original vaccine, age 12+ yr, monovalent (PFIZER-BIONTECH - PURPLE TOP) Lab/[facility] Work Phone: [facility] 05-09-2021 influenza, high dose seasonal, preservative-free Ja Becker MD Work Phone: [facility] 02-02-2021 diphtheria, tetanus toxoids and pertussis vaccine Ja Becker MD Work Phone: [facility] 09-21-2020 COVID-19 vaccine, ag e 12+ yr (PFIZER-BIONTECH - PURPLE TOP) Ja Becker MD Work Phone: [facility] 08-31-2020 COVID-19 vaccine, ag e 12+ yr (PFIZER-BIONTECH - PURPLE TOP) Ja Becker MD Work Phone: [facility] 03-19-2020 pneumococcal polysaccharide vaccine, 23 valent Ja Becker MD Work Phone: [facility] 06-05-2019 influenza, high dose seasonal, preservative-free Ja Becker MD Work Phone: [facility] 12-13-2018 pneumococcal conjuga te vaccine, 13 valent Ja Becker MD Work Phone: [facility] 04-24-2018 influenza, high dose [place], preservative-free Ja Becker MD Work Phone: [facility] 05-11-2017 influenza, high dose seasonal, preservative-free Ja Becker MD Work Phone: [facility] 04-14-2016 influenza, high dose seasonal, preservative-free Ja Becker MD Work Phone: [facility] 04-30-2015 influenza, high dose seasonal, preservative-free Ja Becker MD Work Phone: [facility] 05-01-2014 influenza, injectabl e, quadrivalent, preservative free Ja Becker MD Work Phone: [facility] 05-01-2014 influenza, intraderm al, quadrivalent, preservative free, injectable Ja Becker MD Work Phone: [facility] 04-06-2014 influenza, seasonal, injectable Ja Becker MD Work Phone: [facility] 09-01-2013 pneumococcal polysaccharide vaccine, 23 valent Ja Becker MD Work Phone: [facility] 04-05-2013 influenza virus vacc ine, whole virus Ja Becker MD Work Phone: [facility] 04-04-2013 influenza virus vacc ine, unspecified formulation Ja Becker MD Work Phone: [facility] 04-04-2013 influenza, injectabl e, quadrivalent, contains preservative Ja Becker MD Work Phone: [facility] 05-03-2012 influenza virus vacc ine, unspecified formulation Ja Becker MD Work Phone: [facility] 05-03-2012 influenza, high dose seasonal, preservative-free Ja Becker MD Work Phone: [facility] 03-08-2012 pneumococcal conjuga te vaccine, 13 valent Ja Becker MD Work Phone: [facility] 03-08-2012 tetanus toxoid, redu zuri diphtheria toxoid, and acellular pertussis vaccine, adsorbed Ja Becker MD Work Phone: [facility] 02-24-2011 pneumococcal conjuga te vaccine, 13 valernie Becker MD Work Phone: [facility] 02-24-2011 tetanus toxoid, redu zuri diphtheria toxoid, and acellular pertussis vaccine, adsorbed Ja Becker MD Work Phone: [facility] Payers Date Payer Category Payer Self-pay [id number] 2022 Private Health Insurance [employer] [id number] 2019 Unknown MMO MMO MEDICARE SUPPLEMENT [id number] 2019-Present [phone] [address] [place] [address] Indemnity [id number] 2019 Unknown [id number] 2018 Commercial Indemnity [employer] [id number] 2011 Medicare MEDICARE MEDICAR E A AND B [id number] 2011-Present [phone] [address] [address] [place] [address] Medicare [id number] 2011 Medicare [id number] 1959 Medicare [id number] 1959 Medicare [id number] 1947 Unknown [id number]. 593 1947 Unknown [id number]. 593 1947 Unknown [id number]. 1286 1947 Unknown [id number]. 1286 1947 Unknown [id number]. 1286 1947 Unknown [id number] [id number]. 1286 1947 Unknown [id number]. 1286 1947 Unknown [id number]. 1286 1947 Unknown [id number] [id number]. 1259 1947 Unknown [id number]. 1259 1947 Unknown [id number]. 1259 Medicare Medicare Outpatient [id number] [id number] Unknown [place] BC/ [id number] Unknown [id number] 531 Unknown [id number] 531 Unknown [id number] 531 Social History Date Type Detail Facility Start: 03-08-2018 End: 04-09-2024 Tobacco smoking status NHIS Ex-smoker [facility] Start: 07-02-1980 End: 07-02-2018 History of tobacco use Cigarette Smoker [facility] Start: 03-08-2018 End: 04-09-2024 Tobacco use and exposure Smokeless tobacco non-user [facility] Start: 07-07-2021 End: 01-12-2022 Alcohol intake Current drinker of alcohol (finding) [facility] Start: 05-03-2012 History SDOH Alcohol Comment rarely [facility] Start: 10-19-2017 End: 05-02-2022 Tobacco Comment currently taking Chantix [facility] Start: 1945 Sex Assigned At Not on file [facility] Start: 09-19-2021 End: 06-02-2022 Exposure to SARS-CoV-2 (event) Not sure [facility] Start: 07-02-1980 End: 07-02-2018 History of tobacco use Current smoker [facility] Start: 02-11-2022 End: 02-21-2022 Exposure to SARS-CoV-2 (event) Unable to assess [facility] Start: 1945 Sex Assigned At Male [facility] History of tobacco use Passive smoker [facility] Start: 05-09-2022 End: 10-04-2023 Cigarettes smoked current (pack per day) - Reported 1 [facility] Start: 05-09-2022 End: 04-17-2024 Alcohol intake Ex-drinker (finding) [facility] Start: 10-02-2022 Tobacco smoking status NHIS Never smoked tobacco (finding) [facility] Start: 01-01-2023 End: 10-04-2023 Tobacco use panel [facility] Adult Depression Screening Assessment 0 [facility] Start: 04-24-2022 Gender identity Identifies as male gender (finding) [facility] Start: 04-24-2022 Sexual orientation Heterosexual (finding) [facility] Start: 11-16-2023 End: 04-24-2024 Alcoholic beverage intake Lifetime non-drinker (finding) [facility] Within the last year , have you been afraid of your partner or ex-partner? No [facility] Are you now , , , , never or living with a partner? [facility] How often to you hav e a drink containing alcohol? Never [facility] Do you feel stress - tense, restless, nervous, or anxious, or unable to sleep at night because your mind is troubled all the time - these days [OSQ] Only a little [facility] (I/We) worried wheth er (my/our) food would run out before (I/we) got money to buy more. Never true [facility] Start: 04-09-2023 Tobacco Comment Last smoked : 1-5 years [facility] Start: 04-09-2023 Alcohol Comment Caffeine intake : coffee [facility] Start: 02-04-2015 Sex Male (finding) [facility] [employer] [facility] Medical Equipment Procedure Code Equipment Code Equipment Origin al Text Equipment Identifier Dates Port-05/23/2022 [id number] Start: 05-23-2022 Comment on above: Description: [facility]/Pow er Port/Normal Saline Goals Date Patient Goal Desired Activity /State Personal health goal Comment on above: Formatting of this n ote might be different from the original. Evaluation of progress towards goal: discharge home Clinical Notes 09-29-2021 to 04-26-2024 Telephone Encounter - CHRISTINE Schafer - 04/26/2024 10:02 AM EDTTelephone Encounter - CHRISTINE Schafer - 04/26/2024 10:02 AM CHRISTINE Emanuel - 04/24/2024 1:10 PM EDTPatient Instructions Note Date & Type Note Facility 04-26-2024 Telephone encounter Note Atorvastatin sent. [facility] 04-26-2024 Miscellaneous Notes Atorvastatin sent. documented in this encounter [facility] 04-24-2024 History of Present illness Narrative Skin Check Location: Patient requests a skin examination from the waist up, A full body skin exam was offered, patient declined Dermatologic history: history of Squamous Cell Carcinoma, no family history of melanoma Previous patient of Micah De Guzman MD Lesions: Location: right ear, right sikhism, torso Duration: months Quality: itchy, bleeding Modifying factors: aggravated by picking Associated symptoms: bleeding, non-healing, rough Treatments: none All pertinent medical history, medications, and allergies were reviewed. General Exam: alert, oriented to person, place, and time, normal affect, well appearing Accompanied by daughter A complete skin exam was offered, pt declined. Areas not examined despite medical recommendation: From the waist down Scalp, Examined , exam limited by hair Head, Face Examined Neck Examined Chest Examined Back Examined Abdomen Examined Right arm Examined Left arm Examined Hands Examined Digits,nails: Examined Lymphatics: Not examined 1. Seborrheic keratosis Stuck on verrucous, brown-brown papules and plaques. Patient was counseled regarding these benign growths. Removal is normally not necessary, but they may be removed if they are symptomatic or for cosmetic reasons. 2. Melanocytic nevus of trunk Scattered benign appearing, regular brown to light brown melanocytic papules and macules with similar morphology Counseled regarding these benign growths. Rarely, a nevus can develop into malignant melanoma, so any changing nevi should be promptly re-evaluated. 3. Lentigines Scattered brown macules in sun-exposed areas. The patient was informed that lentigines are benign pigmented lesions that occur on sun-exposed and sun-damaged skin. No treatment is necessary. Recommended regular use of broad spectrum sunscreen SPF 30 or higher 4. Capillary angioma Scattered noriega-red papule(s). The patient was informed that angiomas are benign growths on the the skin. No treatment is necessary. 5. Seborrheic keratosis, inflamed (5) Chest - Medial (Center), Neck - Anterior, Right Flank, Right Mid [place], Right Temporal Scalp Bandera and brown stuck on verrucous scaly papule with surrounding erythema The patient was informed that symptomatic seborrheic keratoses are benign growths that become inflamed, itchy, tender, traumatized, caught on clothing, or bleed. Symptomatic lesions can be treated with cryotherapy or curretage. Thicker lesions treated with cryotherapy may require more than one treatment. The patient was instructed to notify the office if abnormal redness or tenderness develops at the treatment site. Cryotherapy today, see procedure note. Diagnosis: Inflamed seborrheic keratosis Indication: Inflamed Consent: Verbal consent was obtained and risks were discussed, including, but not limited to risks of scarring, darker or rn intern pigmentary changes, recurrence, incomplete removal and infection. Method: Liquid nitrogen was used to treat the lesion(s) with two 5-10 second freeze-thaw cycles Number of lesions treated: 5 Post-procedure instructions: Instructions were given orally and in writing. The office will be contacted if the lesion fails to resolve despite treatment, or if a side effect develops such as abnormal crusting, scabbing, redness or tenderness Cryotherapy, skin lesion - Chest - Medial (Center), Neck - Anterior, Right Flank, Right [place], Right Temporal Scalp 6. Actinic keratosis (3) Left Forehead, Mid Forehead, Mid Parietal Scalp Erythematous scaly papules Patient was counseled regarding these sun-induced growths that can develop into squamous cell carcinoma if left untreated. Discussed treatment with cryotherapy. It was emphasized that any treated lesions that fail to resolve should be re-evaluated. Cryotherapy performed today; see procedure note Diagnosis: Actinic keratosis Indication: Precancerous Location: see skin exam Consent: Verbal consent was obtained and risks were discussed, including, but not limited to risks of scarring, darker or rn intern pigmentary changes, recurrence, incomplete removal and infection. Method: Liquid nitrogen was used to treat the lesion(s) with two 5-10 second freeze-thaw cycles. Number of lesions treated: 3 Post-procedure instructions: Instructions were given orally and in writing. The office will be contacted if the lesion fails to resolve despite treatment, or if a side effect develops such as abnormal crusting, scabbing, redness or tenderness Cryotherapy, skin lesion - Left Forehead, Mid Forehead, Mid Parietal Scalp Next Visit: 1 year documented in this encounter [facility] 04-18-2024 Note Addended by: RHONA RUIZ on: 04/18/2024 03:57 PM Modules accepted: Orders [facility] 04-18-2024 Telephone encounter Note Order for derm referral pended. Rhona Ruiz RN [facility] 04-18-2024 Miscellaneous Notes Addended by: RHONA RUIZ on: 04/18/2024 03:57 PM Modules accepted: Orders Order for derm referral pended. Rhona Ruiz RN Raghavendra Ernst Stopped in the office. States he found a bump on his ear and thinks its skin cancer again. He would like a referral to [facility] Dermatology. He states feels just like when he had the skin cancer on his nose. He was hoping he wouldn't need to have an appt here to get the referral. Ludmila Lazaro PSS documented in this encounter [facility] 04-18-2024 Telephone encounter Note Raghavendra Ernst Stopped in the office. States he found a bump on his ear and thinks its skin cancer again. He would like a referral to [facility] Dermatology. He states feels just like when he had the skin cancer on his nose. He was hoping he wouldn't need to have an appt here to get the referral. Ludmila Lazaro PSS [facility] 04-16-2024 Evaluation + Plan note Associated Problem(s): Elevated PSA We discussed then the 90% negative predictive value for MRI. 10% false negative rate. PSA density as well. This point patient is content with observation. He is also 79 years of age. This is reasonable we can certainly get another PSA in about 9 months [facility] 04-16-2024 Miscellaneous Notes Associated Problem(s): Elevated PSA We discussed then the 90% negative predictive value for MRI. 10% false negative rate. PSA density as well. This point patient is content with observation. He is also 79 years of age. This is reasonable we can certainly get another PSA in about 9 months documented in this encounter [facility] 04-16-2024 History of Present illness Narrative Images from the original note were not included. [address] [place] [address] A [facility] B [facility] [id number] Patient: Raghavendra Heard Date of : 1945 Encounter Date: 04/16/2024 History of Present Illness: The patient is a 79 y.o. male, an established patient, and is here for history of elevated PSA he had an MRI. All discussion as below. Present with .. Urinalysis today: No results for input(s): EXTPOCURCO , EXTPOCURCH , EXTPOCAPP , EXTPOCURBS , EXTPOCURBIL , EXTPOCUKET , EXTPOCUSPG , EXTPOCUHGB , EXTPOCUPRO , EXTPOCUURO , EXTPOCULEU , EXTPOCUNIT , EXTPOCUWBC , EXTPOCUBLD , EXTPOCURBC , EXTPOCUCRY , EXTPOCUBAC , EXTPOCUTREP , EXTPOCUPH , EXTPOCULEE in the last 72 hours. Last BUN and creatinine: Lab Results Component Value Date BUN 19 04/30/2019 Lab Results Component Value Date CREATININE 0.77 04/30/2019 Last PSA: Lab Results Component Value Date PSA 2.36 01/02/2024 PSA 1.88 05/28/2023 PSA 1.63 01/19/2023 PSA 2.04 11/21/2021 PSA 2.59 03/02/2020 No results found for: PROSTATICSP Past Medical, Family, and Social History Update: The following portions of the patient's history were reviewed and updated as appropriate: allergies, current medications, past family history, past medical history, past social history, past surgical history and problem list. Past Medical History: Diagnosis Date Anxiety Arthritis Benign prostatic hyperplasia CAD (coronary artery disease) 2013 stent Cataract removed Dental disease top denture H/O multiple myeloma HL (hearing loss) Hyperlipidemia Lung abnormality IN (myocardial infarction) ([facility]) [address]) Shortness of breath Visual impairment Past Surgical History: Procedure Laterality Date ANGIOPLASTY / STENTING FEMORAL APPENDECTOMY CORONARY STENT PLACEMENT CYSTOSCOPY N/A 04/10/2022 Performed by Stuart Wright MD at [facility] CYSTOSCOPY N/A 04/14/2019 Performed by Stuart Wright MD at [facility] EXPLORATORY THORACOTOMY WITH RIGHT UPPER LOBE BIOPSY AND RIGHT UPPER LOBECTOMY, AND MEDIASTINAL LYMPH NODE DISSECTION Right 04/24/2019 Performed by Rob Stinson MD at [facility] FLOW STUDY, BLADDER SCAN PVR N/A 04/09/2019 Performed by Stuart Wright MD at [facility] VASECTOMY Family History Problem Relation Age of Onset Anesthesia problems Neg Hx Current Outpatient Medications Medication Sig Dispense Refill albuterol (PROVENTIL) 5 mg/mL nebulizer solution as directed Inhalation amLODIPine (NORVASC) 2.5 mg tablet Take 1 tablet (2.5 mg total) by mouth in the morning. aspirin 81 mg Take 1 tablet (81 mg total) by mouth in the morning. atorvastatin (LIPITOR) 40 mg tablet atorvastatin 40 mg tablet TAKE 1 TABLET BY MOUTH ONE TIME A DAY baclofen (LIORESAL) 10 mg tablet Take 1 tablet (10 mg total) by mouth 3 (three) times a day. calcium carbonate (OS-TANYA) 600 mg (1,500 mg) tablet Take 1 tablet (600 mg total) by mouth. cholecalciferol, vitamin D3, 50,000 units tablet Take by mouth daily. clonazePAM (KlonoPIN) 1 mg tablet TAKE 1 TABLET BY MOUTH 4 TIMES A DAY NEEDED 0 docusate sodium (COLACE) 100 mg capsule Take 2 capsules (200 mg total) by mouth in the morning and 2 capsules (200 mg total) before bedtime. DULoxetine (CYMBALTA) 20 mg capsule Take 1 capsule (20 mg total) by mouth in the morning and 1 capsule (20 mg total) before bedtime. finasteride (PROSCAR) 5 mg tablet TAKE 1 TABLET (5 MG TOTAL) BY MOUTH IN THE MORNING 90 tablet 3 ctxxilgbkrs-jeqhovonp-duemfpqa (TRELEGY ELLIPTA) 100-62.5-25 mcg blister with device Inhale 1 puff once daily. gabapentin (NEURONTIN) 300 mg capsule Take 1 capsule (300 mg total) by mouth 3 (three) times a day. 11 multivit with minerals/lutein (MULTIVITAMIN 50 PLUS ORAL) multivitamin take 1 tablet every day nitroglycerin (NITROSTAT) 0.4 MG SL tablet nitroglycerin 0.4 mg sublingual tablet sennosides-docusate sodium (SENNA WITH DOCUSATE SODIUM) 8.6-50 mg Take 1 tablet by mouth in the morning. tamsulosin (FLOMAX) 0.4 mg capsule TAKE 2 CAPSULES BY MOUTH EVERY DAY AT NIGHT 180 capsule 3 famciclovir (FAMVIR) 250 mg tablet Take 1 tablet (250 mg total) by mouth in the morning and 1 tablet (250 mg total) before bedtime. (Patient not taking: Reported on 04/16/2024) 11 No current facility-administered medications for this visit. (All medications reviewed and updated by provider since last office visit or hospitalization) Allergies: Patient has no known allergies. Tobacco History: Social History Tobacco Use Smoking Status Former Current packs/day: 0.00 Average packs/day: 1 pack/day for 38.0 years (38.0 ttl pk-yrs) Types: Cigarettes Start date: 07/02/1980 Quit date: 07/02/2018 Years since quittin.7 Smokeless Tobacco Never (If patient a smoker, smoking cessation counseling offered) Social History: Social History Substance and Sexual Activity Alcohol Use Not Currently Review of Systems: General: Negative for chills and fever. Cardiovascular: Negative for chest pain and shortness of breath. Gastrointestinal: Negative for constipation, diarrhea, nausea, and vomitting. -per HPI Physical Exam: BP 146/62 Pulse 62 Ht 172.7 cm (5' 8 ) Wt 68.9 kg (152 lb) BMI 23.11 kg/m Nontoxic no apparent distress. Respirations nonlabored. Skin is dry. Awake alert oriented x3. Assessment and Plan: Raghavendra was seen today for follow-up. Diagnoses and all orders for this visit: Elevated PSA - Prostatic specific antigen, diagnostic; Future Benign prostatic hyperplasia with urinary frequency Problem List High Elevated PSA - Primary Overview ==== 04/16/2024 ==== ### MRI the prostate Size: 3.6 x 3.6?x 2.5 cm Volume: 17 mL PSA Density: 0.13 ng/mL^2 PIRADS category 2 ==== 02/20/2024 ==== excellent zone study places him about 33% chance of prostate carcinoma high-grade. Plan: Proceed with MRI the prostate ==== 01/07/2024 ==== PSA above 4. We have to double the PSA based on his finasteride use. Will obtain Esosome DX study return Current Assessment & Plan We discussed then the 90% negative predictive value for MRI. 10% false negative rate. PSA density as well. This point patient is content with observation. He is also 79 years of age. This is reasonable we can certainly get another PSA in about 9 months Relevant Orders Prostatic specific antigen, diagnostic Benign prostatic hyperplasia with urinary frequency Overview Finasteride started approx November 2021 ==== 01/07/2024 ==== voiding reasonably well. ==== 06/11/2023 ==== psa 1.88 double to 3.66. less than 4 substantial commodities. Will monitor. Psa summer ==== 01/22/2023 ==== psa 1.63--double to 3.26--JACINTA some firmness but no nodules. PLAN: Given his Lung Ca with + nodes and overall health will just monitor with PSA in 4 months ====08/23/22====s/p cystoscopy 04/10/22 which showed narrow prostatic urethra and lateral lobe hypertrophy. Anatomy was not felt to be suitable for UroLift. He has some persistent urgency but overall is content with Flomax 0.8 mg and finasteride daily. ====12/28/21==== flow study revealed the average rate of 3.2 mL/sec with a PVR of 3 cc. He is interested in trying finasteride but would also like to be scheduled for cystoscopy ==== 11/23/2021 ==== PSA 2.04 JACINTA is benign. AUA SS 10/3- ==== 11/24/2020 ==== AUA Symptom Score very gated 5/2. Tolerating medication. Happy with his current state. Stable situation. Continue monitor. Seen back in 1 year. PSA prior. ==== 05/10/2020 ==== doing very well with day oxybutynin. In addition to Flomax. PVR 55 cc on 2 flomax a day Plan: Maintain current course. Return to clinic in October ==== 03/03/2020 ==== AUA SS 8/3 on 2 flomax at night. Still some urgency frequency. Constipation control months with Colace. Will try oxybutynin daily or every other day. Return clinic 2 months check pvr. psa 2.59 ==== 11/26/2019 ==== on flomax BID. Still was some difficulty initiating stream. Most difficulty with voiding at night. PLAN: pt wishes to change to 2 tabs at night time. ==== 08/20/2019 ==== narrow bladder neck at time of cysto. On flomax one tab a day. Some help but could be better. Tolerates PLAN: increase flomax to 2 tabs daily. ==== 03/19/2019 ==== many year history lower urinary tract symptoms. Primary complaint is frequency as well as the times difficulty stones urination in particular nighttime. A UA symptom score 13/6. May tried alpha fide did not like how it made him feel. Came in with some consideration for a TURP. But certainly needs evaluation of his lower urinary tract fully. By patient report PSA was normal. Digital rectal exam benign. Patient does have some baseline constipation as well-does take medication for such. The comorbidities of multiple myeloma as well as a spiculated lung mass is being evaluated and may need biopsy as well. PLAN: Cysto uro flow PVR Follow-up: Psa in 9 mo and rtc after Stuart Wright MD This note was created with the assistance of a speech recognition program. While intending to generate a timely document that accurately reflects the content of the visit, no guarantee can be provided that every grammatical or spelling mistake has been or will be identified or corrected. Thank you for your understanding. documented in this encounter [facility] 04-16-2024 Note HNO ID: [id number] Author: JA BECKER MD Service: ? Author Type: Physician Type: Progress Notes Filed: 04/18/2024 06:13 Note Text: PATIENT NAME: Raghavendra Heard DATE: 04/17/2024 PRIMARY CARE PHYSICIAN: Dr. Prerna Grissom II OTHER PHYSICIANS: Dr. Toledo (Cardiology [facility]), Dr. Zhang, Dr. Hernández (Wardrobe Manager in [place]), Dr. Stinson (Thoracic Surgery in [place]), Dr. Alberts Portions of this encounter note have been copied from the note from 2024 and has been updated where appropriate, and reflect my current medical decision making from today. CC: This is a 79 year old male with a history of recurrent lung cancer and multiple myeloma, seen for for scheduled follow-up. INTERIM HISTORY: Since the patient's last visit here he developed another bout of bronchitis. Currently he is on antibiotics and steroids per pulmonary and is clinically improving. Otherwise no significant medical changes. Chronic pain controlled on current medications. Ongoing severe anxiety controlled on current medications. No new complaints today. MEDICATIONS: clonazePAM (KLONOPIN) 1 mg tablet TAKE 1 TABLET BY MOUTH THREE TIMES A DAY NEEDED FOR UP TO 30 DAYS HYDROcodone-acetaminophen (NORCO) 5-325 mg per tablet Take 2 tablets by mouth every 6 hours as needed. DULoxetine (CYMBALTA) 60 mg capsule Take 1 capsule by mouth two times a day. gabapentin (NEURONTIN) 300 mg capsule Take 2 capsules by mouth three times a day for 90 days. docusate sodium (COLACE) 100 mg capsule Take 2 capsules by mouth two times a day. HYDROcodone-acetaminophen (NORCO) 5-325 mg per tablet Take 2 tablets by mouth every 6 hours as needed. meloxicam (MOBIC) 15 mg tablet take 1 tablet by mouth every day diazePAM (VALIUM) 5 mg tablet Take 1 tablet by mouth every 8 hours as needed for up to 120 days. TRELEGY ELLIPTA 100-62.5-25 mcg inhalation powder INHALE 1 PUFF ONCE DAILY FOR 30 DAYS nitroglycerin sublingual (NITROQUICK) 0.4 mg SL tablet Dissolve 1 tablet under the tongue every 5 minutes as needed. senna (SENNA LAXATIVE) 8.6 mg tab Take 2 tablets by mouth two times a day. albuterol (PROVENTIL) 2.5 mg /3 mL (0.083 %) nebulizer solution 2.5 mg every 4 hours as needed. predniSONE (DELTASONE) 10 mg tablet Take 1 tablet by mouth once daily. Take 4 daily x 5 days, then 2 daily x 5 days, then 1 daily or as directed. (Patient taking differently: Take 10 mg by mouth as needed. Take 4 daily x 5 days, then 2 daily x 5 days, then 1 daily or as directed.) finasteride (PROSCAR) 5 mg tablet triamterene-hydroCHLOROthiazide (MAXZIDE-25) 37.5-25 mg per tablet TAKE 1 TABLET BY MOUTH EVERY DAY IN THE MORNING mv-mn/iron/folic acid/herb 190 (VITAMIN D3 COMPLETE ORAL) Take by mouth. ZINC ORAL Take by mouth. tamsulosin ER (FLOMAX) 0.4 mg cap Aspirin 81 mg CpDR Take 81 mg by mouth once daily. atorvastatin 40 mg tablet Take 40 mg by mouth once daily. DOCOSAHEXANOIC ACID/EPA (FISH OIL ORAL) Take by mouth. furosemide (LASIX) 40 mg tablet (Patient not taking: Reported on 04/17/2024) naloxone 4 mg/actuation nasal spray (NARCAN) Use 1 spray in one nostril as needed for overdose. May repeat every 2 to 3 min in alternating nostrils until medical assistance is available (Patient not taking: Reported on 04/17/2024) metoprolol succinate ER (TOPROL XL) 25 mg 24 hr tablet Take 25 mg by mouth once daily. (Patient not taking: Reported on 04/17/2024) ALLERGIES: Patient has no known allergies. PAST MEDICAL HISTORY: PAST MEDICAL HISTORY Diagnosis Date Anxiety Enlarged prostate HTN (hypertension) Hypercholesteremia Multiple myeloma, without mention of having achieved remission PAST SURGICAL HISTORY: PAST SURGICAL HISTORY Procedure Laterality Date REMOVAL OF LUNG,LOBECTOMY Right 04/24/2019 right upper lobe REVIEW OF SYSTEMS: As above. PHYSICAL EXAM: Vitals: BP 142/72 Pulse 67 Temp 36.3 ?C (97.3 ?F) (Temporal) Resp 16 Ht 172.7 cm (5' 7.99 ) Wt 71 kg (156 lb 8.4 oz) SpO2 97% BMI 23.81 kg/m? ECOG 1 General: Alert and oriented, no distress, pleasant and cooperative. Heart: Regular, normal S1 and S2, no murmurs, rubs, or gallops Lungs: Expiratory wheezing in both lungs. Abdomen: Benign Extremities: Feet/ankles without edema, posterior tibial pulses full and symmetrical PATHOLOGY: 06/14/2022 Lymph node, 10 R, EBUS transbronchial biopsy Adenocarcinoma. Immunohistochemistry: PD-L1 expression less than 1% ALK rearrangement 0% BRAF - No variant detected [Reference Sequence: ([id number])]. EGFR - No variant detected [Reference Sequence: ([id number])]. HER2 (ERBB2) - No variant detected [Reference Sequence: ([id number])]. KRAS - No variant detected [Reference Sequence: ([id number])]. MET - No variant detected [Reference Sequence: ([id number])]. RADIOLOGIC STUDIES: 04/10/2024 CT chest IMPRESSION: Unchanged 5 mm left upper lobe nodule. Unchanged radiation fibrosis wit (more content not included)... [facility] 04-16-2024 History of Present illness Narrative PATIENT NAME: Raghavendra Heard DATE: 04/17/2024 PRIMARY CARE PHYSICIAN: Dr. Prerna Grissom II OTHER PHYSICIANS: Dr. Toledo (Cardiology [facility]), Dr. Zhang, Dr. Hernández (Wardrobe Manager in [place]), Dr. Stinson (Thoracic Surgery in [place]), Dr. Alberts Portions of this encounter note have been copied from the note from 2024 and has been updated where appropriate, and reflect my current medical decision making from today. CC: This is a 79 year old male with a history of recurrent lung cancer and multiple myeloma, seen for for scheduled follow-up. INTERIM HISTORY: Since the patient's last visit here he developed another bout of bronchitis. Currently he is on antibiotics and steroids per pulmonary and is clinically improving. Otherwise no significant medical changes. Chronic pain controlled on current medications. Ongoing severe anxiety controlled on current medications. No new complaints today. MEDICATIONS: clonazePAM (KLONOPIN) 1 mg tablet TAKE 1 TABLET BY MOUTH THREE TIMES A DAY NEEDED FOR UP TO 30 DAYS HYDROcodone-acetaminophen (NORCO) 5-325 mg per tablet Take 2 tablets by mouth every 6 hours as needed. DULoxetine (CYMBALTA) 60 mg capsule Take 1 capsule by mouth two times a day. gabapentin (NEURONTIN) 300 mg capsule Take 2 capsules by mouth three times a day for 90 days. docusate sodium (COLACE) 100 mg capsule Take 2 capsules by mouth two times a day. HYDROcodone-acetaminophen (NORCO) 5-325 mg per tablet Take 2 tablets by mouth every 6 hours as needed. meloxicam (MOBIC) 15 mg tablet take 1 tablet by mouth every day diazePAM (VALIUM) 5 mg tablet Take 1 tablet by mouth every 8 hours as needed for up to 120 days. TRELEGY ELLIPTA 100-62.5-25 mcg inhalation powder INHALE 1 PUFF ONCE DAILY FOR 30 DAYS nitroglycerin sublingual (NITROQUICK) 0.4 mg SL tablet Dissolve 1 tablet under the tongue every 5 minutes as needed. senna (SENNA LAXATIVE) 8.6 mg tab Take 2 tablets by mouth two times a day. albuterol (PROVENTIL) 2.5 mg /3 mL (0.083 %) nebulizer solution 2.5 mg every 4 hours as needed. predniSONE (DELTASONE) 10 mg tablet Take 1 tablet by mouth once daily. Take 4 daily x 5 days, then 2 daily x 5 days, then 1 daily or as directed. (Patient taking differently: Take 10 mg by mouth as needed. Take 4 daily x 5 days, then 2 daily x 5 days, then 1 daily or as directed.) finasteride (PROSCAR) 5 mg tablet triamterene-hydroCHLOROthiazide (MAXZIDE-25) 37.5-25 mg per tablet TAKE 1 TABLET BY MOUTH EVERY DAY IN THE MORNING mv-mn/iron/folic acid/herb 190 (VITAMIN D3 COMPLETE ORAL) Take by mouth. ZINC ORAL Take by mouth. tamsulosin ER (FLOMAX) 0.4 mg cap Aspirin 81 mg CpDR Take 81 mg by mouth once daily. atorvastatin 40 mg tablet Take 40 mg by mouth once daily. DOCOSAHEXANOIC ACID/EPA (FISH OIL ORAL) Take by mouth. furosemide (LASIX) 40 mg tablet (Patient not taking: Reported on 04/17/2024) naloxone 4 mg/actuation nasal spray (NARCAN) Use 1 spray in one nostril as needed for overdose. May repeat every 2 to 3 min in alternating nostrils until medical assistance is available (Patient not taking: Reported on 04/17/2024) metoprolol succinate ER (TOPROL XL) 25 mg 24 hr tablet Take 25 mg by mouth once daily. (Patient not taking: Reported on 04/17/2024) ALLERGIES: Patient has no known allergies. PAST MEDICAL HISTORY: PAST MEDICAL HISTORY Diagnosis Date Anxiety Enlarged prostate HTN (hypertension) Hypercholesteremia Multiple myeloma, without mention of having achieved remission PAST SURGICAL HISTORY: PAST SURGICAL HISTORY Procedure Laterality Date REMOVAL OF LUNG,LOBECTOMY Right 04/24/2019 right upper lobe REVIEW OF SYSTEMS: As above. PHYSICAL EXAM: Vitals: BP 142/72 Pulse 67 Temp 36.3 C (97.3 F) (Temporal) Resp 16 Ht 172.7 cm (5' 7.99 ) Wt 71 kg (156 lb 8.4 oz) SpO2 97% BMI 23.81 kg/m ECOG 1 General: Alert and oriented, no distress, pleasant and cooperative. Heart: Regular, normal S1 and S2, no murmurs, rubs, or gallops Lungs: Expiratory wheezing in both lungs. Abdomen: Benign Extremities: Feet/ankles without edema, posterior tibial pulses full and symmetrical PATHOLOGY: 06/14/2022 Lymph node, 10 R, EBUS transbronchial biopsy Adenocarcinoma. Immunohistochemistry: PD-L1 expression less than 1% ALK rearrangement 0% BRAF - No variant detected [Reference Sequence: ([id number])]. EGFR - No variant detected [Reference Sequence: ([id number])]. HER2 (ERBB2) - No variant detected [Reference Sequence: ([id number])]. KRAS - No variant detected [Reference Sequence: ([id number])]. MET - No variant detected [Reference Sequence: ([id number])]. RADIOLOGIC STUDIES: 04/10/2024 CT chest IMPRESSION: Unchanged 5 mm left upper lobe nodule. Unchanged radiation fibrosis within the right lung. No thoracic lymphadenopathy. 10/22/2023 CT chest IMPRESSION: Nearly resolved multifocal ground glass opacities throughout both lungs likely infectious/inflammatory. Unchanged radiation fibrosis. Unchanged 5 mm left upper lobe nodule. 08/03/2023 CT chest IMPRESSION: 1. Fluctuating patchy opacities and groundglass opacities, some have increased and some have decreased since 05/07/23. Consider follow to complete resolution. 2. Residual 5 mm left upper lobe lung opacity, either stable or slightly smaller. 3. Increased mucous plugging. 4. Right perihilar consolidative opacities, most likely a combination of postradiation change, other infectious/inflammatory etiologies and neoplasm, stable. 05/07/2023 CT Chest IMPRESSION: 1. Previously noted patchy opacities have decreased with mild groundglass residual. Residual 7 mm left upper lobe nodular opacity, decreased in size. 2. New diffuse groundglass opacities and patchy opacities in the bilateral lung naidu. Consider follow-up to complete resolution. 3. Right perihilar consolidative opacities, most likely a combination of postradiation change, other infectious/inflammatory etiologies and neoplasm, stable. 02/14/2023 CT chest IMPRESSION: 1. Right perihilar consolidative opacities, increased since 09/26/22, most likely a combination of postradiation change, other infectious/infiltrative etiologies and neoplasm. 2. New patchy opacities and reticulonodular opacities in the bilateral lung naidu most likely infectious/inflammatory in etiology. Superimposed neoplasm cannot be excluded. Consider continued interval follow-up. 12/16/2022 MRI brain ([facility] [place]) Mild atrophy and chronic microvascular disease. No acute intracranial findings. 11/15/2022 Chest x-ray IMPRESSION: 1. Diffuse interstitial opacities throughout both lungs, suggestive of edema. 2. More patchy regions of airspace opacification within the right mid and lower lung, which could be infectious/inflammatory. If warranted, consider chest CT for further assessment. 3. Small right pleural effusion. 10/02/2022 CT Brain ([facility] [place]) Unremarkable exam 09/26/2022 CT chest IMPRESSION: 1. New patchy right perihilar groundglass opacities in the right upper lung field most likely related to postradiation change. 2. Residual adjacent 0.7 x 0.7 cm right perihilar nodular density, decreased in size since 03/30/22. 3. New 2 mm left lower lobe nodular opacity most likely infectious/inflammatory in etiology. Consider continued annual follow-up. 4. Other mild reticulonodular opacities and groundglass opacities in right lower lobe and 2-3 mm nodular opacities, stable. 5. 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 6. Mild emphysematous changes of the lungs. 7. 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 04/28/2022 PET scan IMPRESSION: Head and Neck: * No evidence of FDG avid neoplastic process Chest: * 1.1 cm worsening right perihilar nodule concerning for neoplasm/recurrence. * No evidence of FDG avid thoracic lymphadenopathy, as described. Abdomen and pelvis: * No evidence of FDG avid neoplastic process Musculoskeletal: * No neoplastic hypermetabolic lesions 03/30/2022 CT chest IMPRESSION: 1. New 1.1 cm right lower lobe perihilar nodular opacity adjacent to surgical clips worrisome for neoplasm. Consider further evaluation via PET scan and/or other workup. 2. Mild reticulonodular opacities and groundglass opacities in right lower lobe and other 2-3 mm nodular opacities, stable since 08/30/21. 3. 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 4. Mild emphysematous changes of the lungs. 5. 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 10/11/2021 Skeletal survey ([facility]) No new lytic changes to suggest progression of myeloma 09/29/2021 CT chest IMPRESSION: 1. Mild reticulonodular opacities and groundglass opacities in right lower lobe slightly increased since 03/25/21. 2. Other 2-3 mm nodular opacities, stable. Consider continued interval follow-up. 3. 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 4. Mild emphysematous changes of the lungs. 5. 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 12/27/2020 PET SCAN IMPRESSION: Head and Neck: * No hypermetabolic foci Chest: * New right hilar uptake compared to the 08/21/2018 preoperative PET/CT is favored to be secondary to an inflammatory process or postoperative changes. Recommend 3 month follow-up PET/CT and/or contrast-enhanced chest CT for confirmation. * Areas of nodular pleural thickening along the lateral right middle lobe and right major fissure are unchanged and without FDG avidity, likely postsurgical changes. Abdomen and pelvis: * No evidence of FDG avid neoplastic process Musculoskeletal: * No neoplastic hypermetabolic lesions 02/20/2019 PET SCAN ([facility]) Solid spiculated 2.0 cm nodule in the right upper lobe posterior aspect abutting the oblique fissure. SUV 5.5. No lymphadenopathy. No evidence of metastatic disease. LABORATORY DATA: Hemoglobin (g/dL) Date Value 04/17/2024 10.6 07/07/2021 13.0 Hematocrit (%) Date Value 04/17/2024 31.4 07/07/2021 38.4 WBC (k/uL) Date Value 04/17/2024 7.63 07/07/2021 6.28 Platelet Count (k/uL) Date Value 04/17/2024 228 07/07/2021 262 ASSESSMENT/PLAN: 1. Malignant neoplasm of upper lobe of right lung (HCC) - ICD9: 162.3, ICD10: C34.11 (primary diagnosis) Stage IB (pT2a, N0, M0) adenocarcinoma of the right lung diagnosed April 2019. Status post right upper lobectomy 04/24/2019. Final pathology indicated invasive adenocarcinoma, acinar predominant type. Tumor size 3.1 cm, all margins negative. 9 resected lymph nodes negative. Adjuvant chemotherapy and radiation therapy not indicated, and routine postop surveillance recommended. Follow-up chest CT 03/30/2022 revealed a new 1.1 cm right lower lobe perihilar nodular opacity adjacent to surgical clips worrisome for neoplasm. Repeat PET scan 04/28/2022 revealed uptake in the right perihilar lymph node concerning for neoplasm. On 05/16/2022 the patient underwent a bronchoscopy with EBUS (Dr. Balwinder Roberto, [facility] in [place]). Bronchoscopy revealed no endobronchial lesions. Transbronchial biopsy of a right hilar lymph node (10 R) was obtained, but pathology revealed only atypical epithelial cells and no evidence of malignancy. Repeat EBUS was performed a [facility] on 06/14/2022 which confirmed adenocarcinoma. PD-L1 <1% and lung hot spot negative for other targetable mutations. Subsequently it was elected to treat with definitive chemoradiation consisting of low-dose weekly Taxol/carboplatin concurrent with involved field radiation. Treatment started 07/04/2022. The patient completed his fifth cycle of weekly chemotherapy on 08/01/2022, and completed his planned radiation on 08/14/2022. Other than myelosuppression he tolerated treatment well. Follow-up CT chest 09/26/2022 showed response. He subsequently started maintenance durvalumab on 10/17/2022, with initial plans to give 1500 mg IV every 4 weeks x 1 year. When seen 11/15/2022 he was not doing well and had clinical and radiographic evidence of pneumonitis. It was elected to discontinue durvalumab (the patient received only 1 dose on 10/17/2022). He was started on steroids and clinically improved. Subsequent plans were to observe off therapy. Most recent follow-up chest CT 04/10/2024 stable. At this time we will continue close observation. Return in 3 months for follow-up and labs. Assuming he remains stable we will repeat chest CT at 6 months. 2. 203.00 Multiple myeloma IgG lambda multiple myeloma initially diagnosed August 2008. Status post first line therapy with Revlimid and Decadron. Initial treatment discontinued after 6 months due to side effects (vasculitis). Subsequent treatment with Velcade, melphalan and prednisone x 7 cycles finished August 2010. He had a very good partial response. Since then the patient has remained on Aredia, currently dosed at 30 mg every 12 weeks. In regards to myeloma the patient is clinically stable and his paraprotein remains stable. We will monitor the patient's paraprotein closely and discuss treatment options if/when his disease progresses. He will receive Aredia today as scheduled. Next already on return visit in 3 months. 3. 414.01 Coronary artery disease with history of myocardial infarction Acute IN October 2012. S/P coronary artery stent placement. Stable on current medications. Continue current medication per PCP/cardiology. 4. Neuropathy (HCC) - ICD9: 355.9, ICD10: G62.9 Chronic neuropathy, most likely secondary to underlying myeloma plus/minus other systemic condition. Stable on current medications. 5. Squamous cell skin cancer - ICD9: 709.9, ICD10: L98.9 Squamous cell skin cancer involving the right side of nose removed August 2017. Continue follow-up and management per dermatology (Dr. De Guzman). 6. Chronic pain The patient has a long history of pain, multifactorial in etiology. In part his pain is related to underlying myeloma as well as previous thoracic surgery. The patient was seen by [facility] pain management December 2020, and is much improved on current medications. For now he will continue his current medications and follow-up with [facility] pain management (Dr. Alberts) as scheduled. 7. Anemia Since the diagnosis and treatment of lung cancer the patient has had persistent anemia, most likely multifactorial. Hemoglobin relatively stable. Will continue to monitor and intervene accordingly if labs worsen. Ja Becker MD documented in this encounter [facility] 04-15-2024 Telephone encounter Note Pt notified and verbalizes understanding. Rhona Ruiz RN [facility] Work Phone: 04-15-2024 Telephone encounter Note ----- Message from Rita Galvez RN sent at 04/15/2024 8:27 AM EDT ----- ----- Message ----- From: Glenys Kurtz PA-C Sent: 04/14/2024 7:58 AM EDT To: [facility] Triage Pool Please call with stable CT chest [facility] 04-15-2024 Miscellaneous Notes Pt notified and verbalizes understanding. Rhona Ruiz RN ----- Message from Rita Galvez RN sent at 04/15/2024 8:27 AM EDT ----- ----- Message ----- From: Glenys Kurtz PA-C Sent: 04/14/2024 7:58 AM EDT To: [facility] Triage Pool Please call with stable CT chest documented in this encounter [facility] 04-10-2024 History of Present illness Narrative Radiology Service Progress Note PATIENT NAME: Raghavendra Heard DATE OF SERVICE: April 10, 2024 TIME: 9:03 AM PATIENT IDENTITY VERIFICATION COMPLETED USING TWO (2) IDENTIFIERS: Name and Date of confirmed by patient verbally. FALL SCREENING: Has the patient had 2 falls in the last year or 1 fall with injury or currently using an Ambulatory Assistive Device (Walker, Cane, Wheelchair, Crutches, etc.)? No PATIENT GENDER DATA: Male PATIENT RELEVANT IMPLANT DATA REVIEWED: Not Applicable PATIENT PRESENTS WITH AN IMPLANTABLE OR ATTACHED TOP AND SEAT COVER FITTER: No RADIOLOGY DEPARTMENT: CT; Exam(s) Completed: Chest PERIPHERAL IV DATA: Not applicable SIGNED BY: RT Karla(Tom) April 10, 2024 9:03 AM documented in this encounter [facility] 04-10-2024 Note HNO ID: [id number] Author: RHONA MARTIN RT(Tom) Service: ? Author Type: Technologist Type: Progress Notes Filed: 04/10/2024 09:04 Note Text: Radiology Service Progress Note PATIENT NAME: Raghavendra Heard DATE OF SERVICE: April 10, 2024 TIME: 9:03 AM PATIENT IDENTITY VERIFICATION COMPLETED USING TWO (2) IDENTIFIERS: Name and Date of confirmed by patient verbally. FALL SCREENING: Has the patient had 2 falls in the last year or 1 fall with injury or currently using an Ambulatory Assistive Device (Walker, Cane, Wheelchair, Crutches, etc.)? No PATIENT GENDER DATA: Male PATIENT RELEVANT IMPLANT DATA REVIEWED: Not Applicable PATIENT PRESENTS WITH AN IMPLANTABLE OR ATTACHED TOP AND SEAT COVER FITTER: No RADIOLOGY DEPARTMENT: CT; Exam(s) Completed: Chest PERIPHERAL IV DATA: Not applicable SIGNED BY: RT Karla(R) April 10, 2024 9:03 AM [facility] 04-09-2024 History of Present illness Narrative Images from the original note were not included. Subjective Patient ID: Raghavendra Heard is a 79 y.o. male who presents for URI. Raghavendra is present today for evaluation of URI. Admits post nasal drainage, scratchy throat, cough (dry), SOB, wheezing, fatigue. He has been sick for about 3 days. Has not taken anything OTC but they do have 02 at home and used that last night (2 L) and it did help his breathing Current Outpatient Medications on File Prior to Visit Medication Sig Dispense Refill albuterol (2.5 MG/3ML) 0.083% nebulizer solution Take 2.5 mg by nebulization every 4 (four) hours if needed. albuterol HFA 90 mcg/act inhaler Inhale every 4 (four) hours if needed. amLODIPine (Norvasc) 2.5 MG tablet Take 2.5 mg by mouth in the morning. Anoro Ellipta 62.5-25 MCG/ACT aerosol powder Inhale 1 puff in the morning. aspirin 81 MG EC tablet Take 81 mg by mouth in the morning. atorvastatin (Lipitor) 40 MG tablet TAKE 1 TABLET BY MOUTH EVERY DAY 100 tablet 3 baclofen (Lioresal) 10 MG tablet TAKE 1 TABLET (10 MG) BY MOUTH 3 (THREE) TIMES A DAY NEEDED FOR MUSCLE SPASMS 270 tablet 1 cholecalciferol (Vitamin D-3) 10 MCG (400 UNIT) capsule 1 capsule in the morning. clonazePAM (KlonoPIN) 1 MG tablet Take 1 mg by mouth in the morning and 1 mg in the evening and 1 mg before bedtime. [facility] Sen[facility] 8.6 MG tablet Take 2 tablets by mouth in the morning and 2 tablets before bedtime. diazePAM (Valium) 5 MG tablet Take 5 mg by mouth every 8 (eight) hours if needed for anxiety. Dr. Becker DULoxetine (Cymbalta) [address] capsule Take 60 mg by mouth in the morning and 60 mg before bedtime. famciclovir (Famvir) 250 MG tablet Take 250 mg by mouth in the morning and 250 mg before bedtime. finasteride (Proscar) 5 MG tablet Take 5 mg by mouth in the morning. furosemide (Lasix) 40 MG tablet gabapentin (Neurontin) 300 MG capsule Take 300 mg by mouth in the morning and 300 mg at noon and 300 mg in the evening and 300 mg before bedtime. HYDROcodone-acetaminophen ([place]) 5-325 MG tablet Take 2 tablets by mouth every 6 (six) hours if needed. meloxicam (Mobic) 15 MG tablet Take 15 mg by mouth in the morning. metoprolol succinate XL (Toprol-XL) 25 MG 24 hr tablet Take 25 mg by mouth in the morning. opagkszyjxao-fuso-ztqpmtju-folic acid (Centrum Silver, geriatric,) tablet Take 1 tablet by mouth in the morning. nitroglycerin (Nitrostat) 0.[address] 0.4 mg under the tongue every 5 (five) minutes if needed for chest pain. omega-3 (Fish Oil) 1200 MG capsule 1 capsule in the morning. pamidronate (Aredia) 30 MG injection Infuse into a venous catheter. pregabalin (Lyrica) 75 MG capsule Take 75 mg by mouth in the morning and 75 mg at noon and 75 mg in the evening. tamsulosin (Flomax) 0.4 MG 24 hr capsule Take 0.8 mg by mouth in the morning. Trelegy Ellipta 100-62.5-25 MCG/ACT aerosol powder INHALE 1 PUFF ONCE DAILY FOR 30 DAYS triamterene-hydrochlorothiazide (Maxzide-25) 37.5-25 MG tablet TAKE 1 TABLET BY MOUTH EVERY DAY IN THE MORNING 100 tablet 3 zinc gluconate 50 MG tablet Daily. [DISCONTINUED] guaiFENesin-codeine (Robitussin-AC) 100-10 MG/5ML syrup Take 5 mL by mouth every 6 (six) hours if needed for cough. 240 mL 0 [DISCONTINUED] predniSONE (Deltasone) 10 MG tablet No current facility-administered medications on file prior to visit. I have reviewed and reconciled the history and medication list with the patient today. No Known Allergies Social History Tobacco Use Smoking status: Former Current packs/day: 0.00 Types: Cigarettes Quit date: 07/02/2017 Years since quittin.7 Smokeless tobacco: Never Tobacco comments: Last smoked : 1-5 years Vaping Use Vaping status: Never Used Substance Use Topics Alcohol use: Never Comment: Caffeine intake : coffee Drug use: Never Family History Problem Relation Name Age of Onset Diabetes Father Heart disease Other Past Medical History: Diagnosis Date Acute myocardial infarction ([facility]/HCC) 01/10/2013 Altered mental status 10/06/2022 Anxiety Arthritis CAD (coronary artery disease) ([facility]/HCC) Cancer, skin, squamous cell Depression ([facility]/HCC) Fever 10/06/2022 FHx: colonic polyps Generalized osteoarthritis History of being hospitalized 11/07/2023 Community Acquired Pneumonia, Respiratory Failure Hypertension ([facility]/HCC) Hypoxia 10/06/2022 Major depressive disorder with single episode ([facility]) Multiple closed fractures of ribs of right side 12/06/2022 Multiple myeloma ([facility]/HCC) Myocardial infarction ([facility]/HCC) 10/2012 Weakness 10/06/2022 Past Surgical History: Procedure Laterality Date APPENDECTOMY 1992 CARDIAC SURGERY heart stent CATARACT EXTRACTION Bilateral COLOSTOMY 2008 CT ANGIOGRAM CHEST 05/05/2019 CT ANGIOGRAM CHEST [facility] LEGACY CYSTOSCOPY 04/14/2019 IR BIOPSY CHEST LUNG Right 04/02/2019 IR BIOPSY CHEST LUNG 04/02/2019 OTHER SURGICAL HISTORY 08/05/2019 Thoratic MARY KAY's VASECTOMY 1972 Visit Vitals BP 138/66 Pulse 62 Temp 97.7 F Resp 16 Ht 5' 9 Wt 154 lb 12.8 oz SpO2 97% BMI 22.86 kg/m Smoking Status Former BSA 1.85 m Review of Systems Constitutional: Positive for fatigue. Negative for chills and fever. HENT: Positive for postnasal drip and sore throat. Respiratory: Positive for cough, shortness of breath and wheezing. Cardiovascular: Negative for chest pain, palpitations and leg swelling. Gastrointestinal: Negative for abdominal pain, constipation, diarrhea, nausea and vomiting. Skin: Negative for rash. Objective Physical Exam Constitutional: General: He is not in acute distress. Appearance: He is ill-appearing. HENT: Head: Normocephalic and atraumatic. Right Ear: Tympanic membrane and ear canal normal. Left Ear: Ear canal normal. A middle ear effusion is present. Nose: Nose normal. Right Turbinates: Not swollen. Left Turbinates: Not swollen. Right Sinus: No maxillary sinus tenderness or frontal sinus tenderness. Left Sinus: No maxillary sinus tenderness or frontal sinus tenderness. Mouth/Throat: Mouth: Mucous membranes are moist. Pharynx: No posterior oropharyngeal erythema. Eyes: General: No scleral icterus. Cardiovascular: Rate and Rhythm: Normal rate and regular rhythm. Heart sounds: No murmur heard. Pulmonary: Effort: Pulmonary effort is normal. No respiratory distress. Breath sounds: Wheezing (Diffuse) present. No rhonchi or rales. Comments: Pt has to pause mid-sentence to take a deep breath at times. Musculoskeletal: General: No swelling. Lymphadenopathy: Cervical: No cervical adenopathy. Skin: General: Skin is warm and dry. Neurological: General: No focal deficit present. Mental Status: He is alert and oriented to person, place, and time. Psychiatric: Mood and Affect: Mood normal. Behavior: Behavior normal. Assessment/Plan Diagnoses and all orders for this visit: COPD exacerbation ([facility]) - guaiFENesin-codeine (Robitussin-AC) 100-10 MG/5ML syrup; Take 5 mL by mouth every 6 (six) hours if needed for cough - levoFLOXacin (Levaquin) 500 MG tablet; Take 1 tablet (500 mg) by mouth Daily for 7 days - predniSONE (Deltasone) 10 MG tablet; Take 4 tablets (40 mg) by mouth Daily for 3 days, THEN 3 tablets (30 mg) Daily for 3 days, THEN 2 tablets (20 mg) Daily for 3 days, THEN 1 tablet (10 mg) Daily for 3 days. Is scheduled to have a chest CT tomorrow. Encouraged him to get this completed as scheduled. Start the above medications as directed. Advised of potential side effects of the steroid. Patient is to take the steroid with food. Can take cough syrup prn for cough, may cause drowsiness. Increase water intake, get plenty of rest. Can take Tylenol prn for any discomfort or fever. No other anti-inflammatories while on steroid. Follow up in our office if no improvement in one week. Immunodeficiency due to conditions classified elsewhere ([facility]) The patient is seeing a medical technician for this condition, treatment is deferred to that specialist. Correspondence from that specialist and any available testing were reviewed during today's visit. Multiple myeloma not having achieved remission ([facility]) The patient is seeing a medical technician for this condition, treatment is deferred to that specialist. Correspondence from that specialist and any available testing were reviewed during today's visit. Mild protein-calorie malnutrition (CMS/HCC) The patient is seeing a medical technician for this condition, treatment is deferred to that specialist. Correspondence from that specialist and any available testing were reviewed during today's visit. Malignant neoplasm of upper lobe, right bronchus or lung (CMS/HCC) The patient is seeing a medical technician for this condition, treatment is deferred to that specialist. Correspondence from that specialist and any available testing were reviewed during today's visit. Major depressive disorder, single episode, moderate (HCC) (CMS/HCC) Mood is stable at this time. Will continue to monitor. Other emphysema (CMS/HCC) The patient is seeing a medical technician for this condition, treatment is deferred to that specialist. Correspondence from that specialist and any available testing were reviewed during today's visit. Malignant neoplasm of unspecified part of left bronchus or lung (CMS/HCC) The patient is seeing a medical technician for this condition, treatment is deferred to that specialist. Correspondence from that specialist and any available testing were reviewed during today's visit. Follow up in about 6 weeks (around 05/22/2024), or if symptoms worsen or fail to improve, for Medicare Wellness Visit. documented in this encounter [facility] 03-26-2024 Telephone encounter Note Faxed TENS unit order to [facility] [place] [place] [employer] rreceived [facility] 03-26-2024 Miscellaneous Notes Faxed TENS unit order to [facility] [place] [place] [employer] rreceived [facility] Flynn Hopkins PA-C March 25, 2024 CHARLES: 03/24/24 PLAN: 1) Continue current medication regimen: Gabapentin 600 mg Take one(1) tablet three times daily. Duloxetine 30 mg twice daily #60 - refill x 5 2) Trial TENS unit for right chest wall pain. 3) Consider right intercostal nerve block or thoracic Interlaminar Epidural Steroid Injection in the future. 4) Return for office visit 6 months or sooner if needed. No appointments Raghavendra is calling Lexus Alberts DO today to request Orders for TENS unit to be sent to [facility] on file. Patient states discussed at office visit yesterday. The one patient stated he has is from 2008 and does not work. Patient states they have 2 in stock and he would like the one that costs $55. Please advise. Patient has been identified by name and birthdate. Duration of symptoms: N/A Person calling: self Call patient at: on cell [phone] (home) [phone] (cell) Was an appointment scheduled: Cathryn Blount documented in this encounter [facility] 03-25-2024 Telephone encounter Note Prescription printed please fax to [facility] as requested. Flynn Hopkins PA-C March 25, 2024 [facility] 03-25-2024 Telephone encounter Note CHARLES: 03/24/24 PLAN: 1) Continue current medication regimen: Gabapentin 600 mg Take one(1) tablet three times daily. Duloxetine 30 mg twice daily #60 - refill x 5 2) Trial TENS unit for right chest wall pain. 3) Consider right intercostal nerve block or thoracic Interlaminar Epidural Steroid Injection in the future. 4) Return for office visit 6 months or sooner if needed. No appointments [facility] 03-25-2024 Telephone encounter Note Raghavendra is calling Lexus Alberts DO today to [facility]. Patient states discussed at office visit yesterday. The one patient stated he has is from 2008 and does not work. Patient states they have 2 in stock and he would like the one that costs $55. Please advise. Patient has been identified by name and birthdate. Duration of symptoms: N/A Person calling: self Call patient at: on cell [phone] (home) [phone] (cell) Was an appointment scheduled: Cathryn Blount [facility] 03-25-2024 Telephone encounter Note Pt notified of script. Rhona Ruiz RN [facility] 03-25-2024 Miscellaneous Notes Pt notified of script. Rhona Ruiz RN The following approved medication requests have been transmitted electronically. Requested Prescriptions Signed Prescriptions Disp Refills HYDROcodone-acetaminophen ([place]) 5-325 mg per tablet 180 tablet 0 Sig: Take 2 tablets by mouth every 6 hours as needed for up to 30 days. Authorizing Provider: AMBER RODRIGUEZ APRN.JC Patient phones requesting refills as follows: Last script written on 02/19/24. Requested Prescriptions Pending Prescriptions Disp Refills HYDROcodone-acetaminophen ([place]) 5-325 mg per tablet 180 tablet 0 Sig: Take 2 tablets by mouth every 6 hours as needed for up to 30 days. Please review and advise. Rhona Ruiz RN documented in this encounter [facility] 03-25-2024 Telephone encounter Note The following approved medication requests have been transmitted electronically. Requested Prescriptions Signed Prescriptions Disp Refills HYDROcodone-acetaminophen ([place]) 5-325 mg per tablet 180 tablet 0 Sig: Take 2 tablets by mouth every 6 hours as needed for up to 30 days. Authorizing Provider: AMBER RODRIGUEZ APRN.CNP [facility] 03-25-2024 Telephone encounter Note Patient phones requesting refills as follows: Last script written on 02/19/24. Requested Prescriptions Pending Prescriptions Disp Refills HYDROcodone-acetaminophen ([place]CO) 5-325 mg per tablet 180 tablet 0 Sig: Take 2 tablets by mouth every 6 hours as needed for up to 30 days. Please review and advise. Rhona Ruiz RN [facility] 03-24-2024 Instructions Flynn Hopkins PA-C - 03/24/2024 1:11 PM EDT PLAN: 1) Continue current medication regimen: Gabapentin 600 mg Take one(1) tablet three times daily. Duloxetine 30 mg twice daily #60 - refill x 5 2) Trial TENS unit for right chest wall pain. 3) Consider right intercostal nerve block or thoracic Interlaminar Epidural Steroid Injection in the future. 4) Return for office visit 6 months or sooner if needed. documented in this encounter [facility] 03-24-2024 History of Present illness Narrative Pain Management Follow Up Visit Date: March 24, 2024 PARMINDER Heard is a 79 year old male, who presents with chest. Intensity of pain: 6 on a scale of 0-10. Ranges from 1 to 10 on a scale of 0-10. Duration of pain: 5 Years ago, surgery. The pain is located Chest and radiates to the back on the right. Pain Description: Continuous ( it hurts ) Timing: constant Aggravating Factors: no change in pain symptoms with position or activity Alleviating Factors: Medication Interference with: physical activity. Review of Symptoms: GENERAL:No weight loss, malaise or fevers. GASTROINTESTINAL: Negative for abdominal discomfort, blood in stools or black stools or change in bowel habits GENITOURINARY: No history of dysuria, frequency or incontinence MUSCULOSKELETAL: see hpi NEUROLOGIC:Negative for focal numbness or weakness, headaches and dizziness or syncope. PREVIOUS TREATMENTS LASTING SIX WEEKS IN THE LAST SIX MONTHS Active conservative therapy lasting 6 weeks in the last six months (see below) 1. Physical therapy: No 2. Home exercise program after PT: No 3. Occupational therapy: No 4. A physician supervised home exercise program (HEP): No 5. Sterile Instrument Technician: No Passive conservative therapy lasting 6 weeks in the last six months (see below) 1. Medical devises: No 2. Acupuncture: No 3. Tens unit: No 4. Prescription pain medication: Yes 5. NSAIDS: No Lizeth Lau MA March 24, 2024 12:42 PM The subjective information: including chief complaint, and past medical history, was explored in detail with the patient and edited as needed and is complete. Flynn Hopkins PA-C March 24, 2024 CHARLES: 09/20/23 - Dr. Lexus Alberts PLAN: Stop Lyrica, restart Gabapentin 600mg TID Continue Duloxetine 60mg BID Defer hydrocodone to prescribing physician Questionnaires: Patient Entered Questionnaires PROMIS: 04/02/2023 PROMIS CAT Pain Interference PROMIS Adult Short Form-Global Health Score (Mental) 45.8 (Good) PROMIS Score Percentiles 09/11/2022 12/04/2022 04/02/2023 PROMIS Global Health Scale Physical Health Percentile 78 4 22* Mental Health Percentile 43 5 34 Percentiles provide an indication of how the patient's score ranks in relation to the general population. Higher percentile rankings indicate better function/quality of life. 50th percentile is the average of the general population and indicates half of respondents had a worse score. Depression Screenin01/08/2015 12/03/2015 PHQ-9 Score 3 0 12/03/2015 01/08/2015 PHQ-9 Self Harm Question 9 Not at all Not at all PHQ-9 Self-Harm (Item 9) response options: 0 Not at all 1 Several days 2 More than half the days 3 Nearly every day PHQ-9 Levels: 0-4 Minimal depression 5-9 Mild depression 10-14 Moderate depression 15-19 Moderately severe depression 20-27 Severe depression PHQ-9 Score 12/03/2015 0 01/08/2015 3 (0-4) minimal depression, (5-9) mild depression, (10-14) moderate depression, (15-19) moderately severe depression, (20-27) severe depression OARRS: PDMP website checked and validated. All prescriptions have been APPROPRIATELY filled. No suspicious activity was identified. - on March 24, 2024 by Flynn Hopkins PA-C - 03/07/24 gabapentin powder #12/15 days Prerna Grissom II, MD, MD - 02/29/24 gabapentin 300 mg #180/30 days Ja Becker MD - 02/28/54 clonazepam 1 mg #90/30 days Glenys Kurtz PA-C - 02/19/24 Hydrocodone/Acetaminophen 5/325 mg #180/23 days Ja Becker MD Physical Examination: BP 145/68 Pulse 55 Wt 154 lb 5.2 oz (70.0kg) General:well appearing, alert, and in no acute distress Skin: skin color, texture, turgor normal, no rashes or lesions HEENT: normocephalic, atraumatic, sclera non-icteric Lungs: Respirations even and non-labored. Musculoskeletal: - tenderness with palpation over the right mid and lower thoracic or lumbar paraspinal muscles and tenderness along the right anterior 7-10th ribs. Neurological: Mental Status: alert and oriented x 3 There are no sensory changes over the anterior or posterior right side chest wall Gait: Normal. HPI & ASSESSMENT: Parts of this note were copied from the last office visit note by Dr. Lexus Alberts dated: 09/20/23, changes were made to appropriately reflect updated history and interval events, physical exam, data review, and medical decision making. Raghavendra Heard is a 79 year old male, PMHX - lung cancer, multiple myeloma, hypertension, hyperlipidemia, and chronic right sided chest wall pain in the setting of RUL lung cancer s/p right upper lobectomy and chemotherapy-induced peripheral neuropathy who returns for follow-up of lower extremity neuropathy. His last office visit was on 09/20/[address] Lexus Alberts at which time he reported pregabalin was not as effective for his pain as gabapentin. The recommendation at that time was to Stop Lyrica, restart Gabapentin 600mg TID, and continue Duloxetine 60mg BID. Today, Raghavendra Heard reports continued right lower posterior and anterior sided chest pain s/p right upper lobectomy and right chest tube placement. He reports constant pain, which he describes as it hurts. He rates his pain at 6/10 currently and ranges from 1-10/10. He reports the pain is mitigated by medication. He reports duloxetine 60 mg twice daily helps some with this pain however the pain seems to wax and wane without any identifiable causes. Additionally he is taking meloxicam 15 mg once daily and Vicodin as needed for his pain. He also has neuropathy in the bilateral feet. He reports this pain is proved with gabapentin 600 mg 3 times a day. On exam there is tenderness with palpation over the right mid and lower thoracic or lumbar paraspinal muscles and tenderness along the right anterior 7-10th ribs. Raghavendra Heard asked about other options to help with his right sided thoracic and right anterior chest wall pain. We discussed option for possible right intercostal nerve block however patient was advised about possible risks of the procedure including pneumothorax. We also discussed possibility for thoracic epidural steroid injection. Given that there is a lot of tenderness over the muscles I recommend a trial of a TENS unit which she reports he has at home. He was advised to use this for 20 minutes twice daily for 2 weeks and let me know the results. Chest wall pain (primary encounter diagnosis) Intercostal neuralgia History of lung cancer PLAN: 1) Continue current medication regimen: Gabapentin 600 mg Take one(1) tablet three times daily. Duloxetine 30 mg twice daily #60 - refill x 5 2) Trial TENS unit for right chest wall pain. 3) Consider right intercostal nerve block or thoracic Interlaminar Epidural Steroid Injection in the future. 4) Return for office visit 6 months or sooner if needed. The above plan and management options were discussed at length with patient. Patient is in agreement with the above and verbalized understanding. Flynn Hopkins PA-C March 24, 2024 documented in this encounter [facility] 03-24-2024 Note HNO ID: [id number] Author: FLYNN HOPKINS PA-C Service: ? Author Type: Physician [facility] Worker Type: Progress Notes Filed: 03/24/2024 13:54 Note Text: Pain Management Follow Up Visit Date: March 24, 2024 SUBJECTIVE Raghavendra Heard is a 79 year old male, who presents with chest. Intensity of pain: 6 on a scale of 0-10. Ranges from 1 to 10 on a scale of 0-10. Duration of pain: 5 Years ago, surgery. The pain is located Chest and radiates to the back on the right. Pain Description: Continuous ( it hurts ) Timing: constant Aggravating Factors: no change in pain symptoms with position or activity Alleviating Factors: Medication Interference with: physical activity. Review of Symptoms: GENERAL:No weight loss, malaise or fevers. GASTROINTESTINAL: Negative for abdominal discomfort, blood in stools or black stools or change in bowel habits GENITOURINARY: No history of dysuria, frequency or incontinence MUSCULOSKELETAL: see hpi NEUROLOGIC:Negative for focal numbness or weakness, headaches and dizziness or syncope. PREVIOUS TREATMENTS LASTING SIX WEEKS IN THE LAST SIX MONTHS Active conservative therapy lasting 6 weeks in the last six months (see below) 1. Physical therapy: No 2. Home exercise program after PT: No 3. Occupational therapy: No 4. A physician supervised home exercise program (HEP): No 5. Sterile Instrument Technician: No Passive conservative therapy lasting 6 weeks in the last six months (see below) 1. Medical devises: No 2. Acupuncture: No 3. Tens unit: No 4. Prescription pain medication: Yes 5. NSAIDS: No Lizeth Lau MA March 24, 2024 12:42 PM The subjective information: including chief complaint, and past medical history, was explored in detail with the patient and edited as needed and is complete. Flynn Hopkins PA-C March 24, 2024 CHARLES: 09/20/23 - Dr. Lexus Alberts PLAN: Stop Lyrica, restart Gabapentin 600mg TID Continue Duloxetine 60mg BID Defer hydrocodone to prescribing physician Questionnaires: Patient Entered Questionnaires PROMIS: 04/02/2023 PROMIS CAT Pain Interference PROMIS Adult Short Form-Global Health Score (Mental) 45.8 (Good) PROMIS Score Percentiles 09/11/2022 12/04/2022 04/02/2023 PROMIS Global Health Scale Physical Health Percentile 78 4 22* Mental Health Percentile 43 5 34 Percentiles provide an indication of how the patient's score ranks in relation to the general population. Higher percentile rankings indicate better function/quality of life. 50th percentile is the average of the general population and indicates half of respondents had a worse score. Depression Screenin01/08/2015 12/03/2015 PHQ-9 Score 3 0 12/03/2015 01/08/2015 PHQ-9 Self Harm Question 9 Not at all Not at all PHQ-9 Self-Harm (Item 9) response options: 0 Not at all 1 Several days 2 More than half the days 3 Nearly every day PHQ-9 Levels: 0-4 Minimal depression 5-9 Mild depression 10-14 Moderate depression 15-19 Moderately severe depression 20-27 Severe depression PHQ-9 Score 12/03/2015 0 01/08/2015 3 (0-4) minimal depression, (5-9) mild depression, (10-14) moderate depression, (15-19) moderately severe depression, (20-27) severe depression OARRS: PDMP website checked and validated. All prescriptions have been APPROPRIATELY filled. No suspicious activity was identified. - on March 24, 2024 by Flynn Hopkins PA-C - 03/07/24 gabapentin powder #12/15 days Prerna Grissom II, MD, - 02/29/24 gabapentin 300 mg #180/30 days Ja Becker MD - 02/28/54 clonazepam 1 mg #90/30 days Glenys Kurtz PA-C - 02/19/24 Hydrocodone/Acetaminophen 5/325 mg #180/ days Ja Becker MD Physical Examination: BP 145/68 Pulse 55 Wt 154 lb 5.2 oz (70.0kg) General:well appearing, alert, and in no acute distress Skin: skin color, texture, turgor normal, no rashes or lesions HEENT: normocephalic, atraumatic, sclera non-icteric Lungs: Respirations even and non-labored. Musculoskeletal: - tenderness with palpation over the right mid and lower thoracic or lumbar paraspinal muscles and tenderness along the right anterior 7-10th ribs. Neurological: Mental Status: alert and oriented x 3 There are no sensory changes over the anterior or posterior right side chest wall Gait: Normal. HPI AND ASSESSMENT: Parts of this note were copied from the last office visit note by Dr. Lexus Alberts dated: 09/20/23, changes were made to appropriately reflect updated history and interval events, physical exam, data review, and medical decision making. Raghavendra Heard is a 79 year old male, PMHX - lung cancer, multiple myeloma, hypertension, hyperlipidemia, and chronic right sided chest wall pain in the setting of RUL lung cancer s/p right upper lobectomy and chemotherapy-induced peripheral neuropathy who returns for follow-up of lower extremity neuropathy. His last office visit was on 09/20/[address] Lexus Alberts at which time he repor (more content not included)... [facility] 03-14-2024 Telephone encounter Note SOCIAL WORK FOLLOW UP NOTE: [facility] Date of service:03/14/24 TOPICS ADDRESSED: community resources PLAN: Assist with financial support applications and Continue follow up as needed Assigned SW listed in Care Team tab: Yes Patient has re-applied for the [facility] Care Fund. Sugar from the [facility] asked this SW to complete the Physician Authorization section of the application and fax it back to her. Form was completed and faxed. ELLIE Squires [facility] 03-14-2024 Miscellaneous Notes SOCIAL WORK FOLLOW UP NOTE: [facility] Date of service:03/14/24 TOPICS ADDRESSED: community resources PLAN: Assist with financial support applications and Continue follow up as needed Assigned SW listed in Care Team tab: Yes Patient has re-applied for the [facility] Cancer Care Fund. Sugar from the [facility] asked this SW to complete the Physician Authorization section of the application and fax it back to her. Form was completed and faxed. ELLIE Squires documented in this encounter [facility] 02-29-2024 Telephone encounter Note Patient phones requesting refills as follows: Requested Prescriptions Pending Prescriptions Disp Refills docusate sodium (COLACE) 100 mg capsule 240 capsule 5 Sig: Take 2 capsules by mouth two times a day. clonazePAM (KLONOPIN) 1 mg tablet 90 tablet 0 Sig: TAKE 1 TABLET BY MOUTH THREE TIMES A DAY NEEDED FOR UP TO 30 DAYS Please review and advise. Iza Jha RN [facility] 02-29-2024 Miscellaneous Notes Patient phones requesting refills as follows: Requested Prescriptions Pending Prescriptions Disp Refills docusate sodium (COLACE) 100 mg capsule 240 capsule 5 Sig: Take 2 capsules by mouth two times a day. clonazePAM (KLONOPIN) 1 mg tablet 90 tablet 0 Sig: TAKE 1 TABLET BY MOUTH THREE TIMES A DAY NEEDED FOR UP TO 30 DAYS Please review and advise. Iza Jha RN documented in this encounter [facility] 02-18-2024 Telephone encounter Note Patient phones requesting refills as follows: Last script written on 01/21/24. Requested Prescriptions Pending Prescriptions Disp Refills HYDROcodone-acetaminophen (NORCO) 5-325 mg per tablet 180 tablet 0 Sig: Take 2 tablets by mouth every 6 hours as needed for up to 30 days. Please review and advise. Rhona Ruiz RN [facility] 02-18-2024 Miscellaneous Notes Patient phones requesting refills as follows: Last script written on 01/21/24. Requested Prescriptions Pending Prescriptions Disp Refills HYDROcodone-acetaminophen (NORCO) 5-325 mg per tablet 180 tablet 0 Sig: Take 2 tablets by mouth every 6 hours as needed for up to 30 days. Please review and advise. Rhona Ruiz RN documented in this encounter [facility] 02-15-2024 Telephone encounter Note Pt called requesting refills of his Valium and [place]. Confirmed w/ [facility] that the pt's current Valium script has refills remaining. Pt notified. Also notified pt that his request for [place] is too soon. Last RX was written on 01/21/24 for a 30 day supply. Pt verbalizes understanding and will call back next week. Rhona Ruiz RN [facility] Work Phone: 02-15-2024 Miscellaneous Notes Pt called requesting refills of his Valium and [place]. Confirmed w/ [facility] that the pt's current Valium script has refills remaining. Pt notified. Also notified pt that his request for [place] is too soon. Last RX was written on 01/21/24 for a 30 day supply. Pt verbalizes understanding and will call back next week. Rhona Ruiz RN documented in this encounter [facility] 02-01-[address] Becker Patient [facility] 02-01-[address] Becker Patient documented in this encounter [facility] 01-30-2024 Note [place] [facility] Subjective Raghavendra Heard is a 79 y.o. year old male patient being seen for follow up heart cath on 01/09/2024. Furosemide was added every other day. Says his LE edema and SOB are improving. Denies chest pain, palpitations, and lightheadedness/syncope. Patient Active Problem List Diagnosis Acute myocardial infarction (CMS/HCC) H/O myocardial infarction, greater than 8 weeks Advance directive discussed with patient Arthritis of left knee Atrial septal defect Benign prostatic hyperplasia with urinary frequency Bradycardia Carpal tunnel syndrome Chest wall pain Intercostal neuralgia Coronary artery disease with history of myocardial infarction without history of CABG Coronary arteriosclerosis Dyspnea on exertion Coronary atherosclerosis Generalized anxiety disorder Essential hypertension History of cardiovascular disorder History of colonic polyps History of lung cancer History of myocardial infarction Hyperlipidemia Leg cramps Lesion of radial nerve Low blood pressure Malignant neoplasm of upper lobe of right lung (CMS/HCC) Lung cancer (CMS/HCC) Malignant neoplasm of upper lobe, bronchus or lung Mass of upper lobe of right lung Moderate major depression, single episode (CMS/HCC) Multiple closed fractures of ribs of right side Multiple myeloma (CMS/HCC) Neuropathy Obstructive uropathy Pain Paraseptal emphysema (CMS/HCC) Patent foramen ovale Presence of stent in artery Primary localized osteoarthrosis of multiple sites Primary osteoarthritis of left knee Pulmonary valve disorder Tricuspid valve disorder Pure hypercholesterolemia Right ventricular dilation Sinus bradycardia Acute pain of left knee Adenocarcinoma, lung, left (CMS/HCC) Benign prostatic hyperplasia with lower urinary tract symptoms Generalized osteoarthrosis, involving multiple sites Left radial nerve palsy Malnutrition of mild degree (CMS/HCC) Mild tricuspid regurgitation Nonrheumatic pulmonary valve insufficiency Rising PSA level Stasis dermatitis of both legs Anemia Fatigue Hypomagnesemia [place]-neck deformity of finger of right hand Pulmonary hypertension (CMS/HCC) Shortness of breath Elevated PSA Family History Problem Relation Name Age of Onset Diabetes Other Other (amylodosis) Other Social History Tobacco Use Smoking status: Former Types: Cigarettes Smokeless tobacco: Never Substance Use Topics Alcohol use: Not Currently HPI Raghavendra is seen in follow-up. He has a hx of CAD and prior IN s/p PATTI to the in 2012. He also has a hx of multiple myeloma and lung CA, and he has undergone a right upper lobectomy. He underwent chemo/radiation - finished Aug, 2022. He was previously investigated for possible ASD and right sided enlargement but MARK done was negative. In October 2023 he was admitted to the [facility] with COPD exacerbation and community-acquired pneumonia. His echocardiogram showed severely elevated right sided pressures. Metoprolol was stopped due to low blood pressure. He continues to be on amlodipine 2.5 mg once daily. After last visit with me on 12/27/2023 and due to shortness of breath and elevated right-sided pressures by echocardiography I proceeded with right heart catheterization on 01/09/2024 which showed elevated filling pressures and pulmonary pressures consistent with diastolic heart failure. I added furosemide. He reports that he has felt better with the addition of furosemide. He has a chronic cough from radiation. He has shortness of breath on exertion but no chest pain. No palpitations. He has no lower extremity edema. Review of Systems Cardiovascular: Positive for dyspnea on exertion, leg swelling (improving) and orthopnea. Respiratory: Positive for cough and wheezing. Musculoskeletal: Positive for arthritis and back pain. Neurological: Positive for weakness. All other systems reviewed and are negative. Objective Visit Vitals BP 144/82 (BP Location: Left arm, Patient Position: Sitting) Pulse 84 Ht 1.753 m (5' 9 ) Wt 68.5 kg (151 lb) SpO2 95% BMI 22.30 kg/m??? Smoking Status Former BSA 1.83 m??? Physical Exam Constitutional: Appearance: He is well-developed. He is not ill-appearing. HENT: Head: Normocephalic and atraumatic. Nose: Nose normal. Eyes: General: No scleral icterus. Pupils: Pupils are equal, round, and reactive to light. Neck: Thyroid: No thyromegaly. Vascular: No JVD. Cardiovascular: Rate and Rhythm: Normal rate and regular rhythm. Pulses: Radial pulses are 2+ on the right side and 2+ on the left side. Heart sounds: Normal heart sounds. No murmur heard. No friction rub. No gallop. Pulmonary: Effort: Pulmonary effort is normal. No respiratory distress. Breath sounds: Examination of the right-upper field reveals decreased breath sounds. Examination of the right-middle field reveals decreased breath soun (more content not included)... [facility] 01-21-2024 Telephone encounter Note Attempted to notify pt of signed script. No answer. Voicemail is full and not accepting messages. Rhona Ruiz RN [facility] 01-21-2024 Miscellaneous Notes Attempted to notify pt of signed script. No answer. Voicemail is full and not accepting messages. Rhona Ruiz RN Patient phones requesting refills as follows: Last script written 12/23/23. Requested Prescriptions Pending Prescriptions Disp Refills HYDROcodone-acetaminophen (NORCO) 5-325 mg per tablet 180 tablet 0 Sig: Take 2 tablets by mouth every 6 hours as needed for up to 30 days. Please review and advise. Rhona Ruiz RN documented in this encounter [facility] 01-18-2024 Telephone encounter Note Patient phones requesting refills as follows: Last script written 12/23/23. Requested Prescriptions Pending Prescriptions Disp Refills HYDROcodone-acetaminophen (NORCO) 5-325 mg per tablet 180 tablet 0 Sig: Take 2 tablets by mouth every 6 hours as needed for up to 30 days. Please review and advise. Rhona Ruiz RN [facility] 2024 History of Present illness Narrative PATIENT NAME: Raghavendra Heard DATE: 2024 PRIMARY CARE PHYSICIAN: Dr. Prerna Grissom II OTHER PHYSICIANS: Dr. Toledo (Cardiology [facility]), Dr. Zhang, Dr. Hernández (Wardrobe Manager in [place]), Dr. Stinson (Thoracic Surgery in [place]), Dr. Alberts (Elements copied from Dr. Becker's note dated October 29, 2023, have been reviewed and updated where appropriate, and all reflect current assessment and medical decision making during today's encounter, 2024) CC: This is a 78 year old male with a history of recurrent lung cancer and multiple myeloma, seen for for scheduled follow-up. INTERIM HISTORY: Mr. Heard returns for follow up. He had pneumonia and was hospitalized for 5 days, November 06-2023 at [facility]. Then he got a URI and saw pulmonology January 01, 2024 who gave him an antibiotic and Prednisone 30 mg for 4 days. He didn't get any better so he went back to pulmonology and he is back on a taper of Prednisone and a sputum test. He is coughing and chest congestion. Today he sounds better. His pain remains controlled. He has no other new issues. MEDICATIONS: gabapentin (NEURONTIN) 300 mg capsule Take 2 capsules by mouth three times a day for 90 days. clonazePAM (KLONOPIN) 1 mg tablet TAKE 1 TABLET BY MOUTH THREE TIMES A DAY NEEDED FOR UP TO 30 DAYS HYDROcodone-acetaminophen (NORCO) 5-325 mg per tablet Take 2 tablets by mouth every 6 hours as needed for up to 30 days. diazePAM (VALIUM) 5 mg tablet Take 1 tablet by mouth every 8 hours as needed for up to 120 days. meloxicam (MOBIC) 15 mg tablet Take 1 tablet by mouth every afternoon. TRELEGY ELLIPTA 100-62.5-25 mcg inhalation powder INHALE 1 PUFF ONCE DAILY FOR 30 DAYS nitroglycerin sublingual (NITROQUICK) 0.4 mg SL tablet Dissolve 1 tablet under the tongue every 5 minutes as needed. senna (SENNA LAXATIVE) 8.6 mg tab Take 2 tablets by mouth two times a day. docusate sodium (COLACE) 100 mg capsule Take 2 capsules by mouth two times a day. albuterol (PROVENTIL) 2.5 mg /3 mL (0.083 %) nebulizer solution 2.5 mg every 4 hours as needed. ANORO ELLIPTA 62.5-25 mcg/actuation inhaler INHALE 1 PUFF INTO THE LUNGS EVERY DAY FOR 90 DAYS DULoxetine (CYMBALTA) 60 mg capsule Take 1 capsule by mouth two times a day. predniSONE (DELTASONE) 10 mg tablet Take 1 tablet by mouth once daily. Take 4 daily x 5 days, then 2 daily x 5 days, then 1 daily or as directed. naloxone 4 mg/actuation nasal spray (NARCAN) Use 1 spray in one nostril as needed for overdose. May repeat every 2 to 3 min in alternating nostrils until medical assistance is available finasteride (PROSCAR) 5 mg tablet triamterene-hydroCHLOROthiazide (MAXZIDE-25) 37.5-25 mg per tablet TAKE 1 TABLET BY MOUTH EVERY DAY IN THE MORNING ondansetron (ZOFRAN) 8 mg tablet Take 1 tablet by mouth every 8 hours as needed for nausea/vomiting. prochlorperazine (COMPAZINE) 10 mg tablet Take 1 tablet by mouth every 6 hours as needed. metoprolol succinate ER (TOPROL XL) 25 mg 24 hr tablet Take 25 mg by mouth once daily. mv-mn/iron/folic acid/herb 190 (VITAMIN D3 COMPLETE ORAL) Take by mouth. ZINC ORAL Take by mouth. tamsulosin ER (FLOMAX) 0.4 mg cap Aspirin 81 mg CpDR Take 81 mg by mouth once daily. atorvastatin 40 mg tablet Take 40 mg by mouth once daily. DOCOSAHEXANOIC ACID/EPA (FISH OIL ORAL) Take by mouth. ALLERGIES: Patient has no known allergies. PAST MEDICAL HISTORY: PAST MEDICAL HISTORY Diagnosis Date Anxiety Enlarged prostate HTN (hypertension) Hypercholesteremia Multiple myeloma, without mention of having achieved remission PAST SURGICAL HISTORY: PAST SURGICAL HISTORY Procedure Laterality Date REMOVAL OF LUNG,LOBECTOMY Right 04/24/2019 right upper lobe REVIEW OF SYSTEMS: As above. PHYSICAL EXAM: Vitals: BP 124/73 Pulse 64 Temp 36.2 C (97.1 F) (Temporal) Resp 18 Wt 69.2 kg (152 lb 8.9 oz) SpO2 97% BMI 23.20 kg/m ECOG 1 General: Alert and oriented, no distress, pleasant and cooperative. Heart: Regular, normal S1 and S2, no murmurs, rubs, or gallops Lungs: Expiratory wheezing in both lungs. Abdomen: Benign Extremities: Feet/ankles without edema, posterior tibial pulses full and symmetrical PATHOLOGY: 06/14/2022 Lymph node, 10 R, EBUS transbronchial biopsy Adenocarcinoma. Immunohistochemistry: PD-L1 expression less than 1% ALK rearrangement 0% BRAF - No variant detected [Reference Sequence: ([id number])]. EGFR - No variant detected [Reference Sequence: ([id number])]. HER2 (ERBB2) - No variant detected [Reference Sequence: ([id number])]. KRAS - No variant detected [Reference Sequence: ([id number])]. MET - No variant detected [Reference Sequence: ([id number])]. RADIOLOGIC STUDIES: 10/22/2023 CT chest IMPRESSION: Nearly resolved multifocal ground glass opacities throughout both lungs likely infectious/inflammatory. Unchanged radiation fibrosis. Unchanged 5 mm left upper lobe nodule. 08/03/2023 CT chest IMPRESSION: 1. Fluctuating patchy opacities and groundglass opacities, some have increased and some have decreased since 05/07/23. Consider follow to complete resolution. 2. Residual 5 mm left upper lobe lung opacity, either stable or slightly smaller. 3. Increased mucous plugging. 4. Right perihilar consolidative opacities, most likely a combination of postradiation change, other infectious/inflammatory etiologies and neoplasm, stable. 05/07/2023 CT Chest IMPRESSION: 1. Previously noted patchy opacities have decreased with mild groundglass residual. Residual 7 mm left upper lobe nodular opacity, decreased in size. 2. New diffuse groundglass opacities and patchy opacities in the bilateral lung naidu. Consider follow-up to complete resolution. 3. Right perihilar consolidative opacities, most likely a combination of postradiation change, other infectious/inflammatory etiologies and neoplasm, stable. 02/14/2023 CT chest IMPRESSION: 1. Right perihilar consolidative opacities, increased since 09/26/22, most likely a combination of postradiation change, other infectious/infiltrative etiologies and neoplasm. 2. New patchy opacities and reticulonodular opacities in the bilateral lung naidu most likely infectious/inflammatory in etiology. Superimposed neoplasm cannot be excluded. Consider continued interval follow-up. 12/16/2022 MRI brain ([facility] [place]) Mild atrophy and chronic microvascular disease. No acute intracranial findings. 11/15/2022 Chest x-ray IMPRESSION: 1. Diffuse interstitial opacities throughout both lungs, suggestive of edema. 2. More patchy regions of airspace opacification within the right mid and lower lung, which could be infectious/inflammatory. If warranted, consider chest CT for further assessment. 3. Small right pleural effusion. 10/02/2022 CT Brain ([facility] [place]) Unremarkable exam 09/26/2022 CT chest IMPRESSION: 1. New patchy right perihilar groundglass opacities in the right upper lung field most likely related to postradiation change. 2. Residual adjacent 0.7 x 0.7 cm right perihilar nodular density, decreased in size since 03/30/22. 3. New 2 mm left lower lobe nodular opacity most likely infectious/inflammatory in etiology. Consider continued annual follow-up. 4. Other mild reticulonodular opacities and groundglass opacities in right lower lobe and 2-3 mm nodular opacities, stable. 5. 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 6. Mild emphysematous changes of the lungs. 7. 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 04/28/2022 PET scan IMPRESSION: Head and Neck: * No evidence of FDG avid neoplastic process Chest: * 1.1 cm worsening right perihilar nodule concerning for neoplasm/recurrence. * No evidence of FDG avid thoracic lymphadenopathy, as described. Abdomen and pelvis: * No evidence of FDG avid neoplastic process Musculoskeletal: * No neoplastic hypermetabolic lesions 03/30/2022 CT chest IMPRESSION: 1. New 1.1 cm right lower lobe perihilar nodular opacity adjacent to surgical clips worrisome for neoplasm. Consider further evaluation via PET scan and/or other workup. 2. Mild reticulonodular opacities and groundglass opacities in right lower lobe and other 2-3 mm nodular opacities, stable since 08/30/21. 3. 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 4. Mild emphysematous changes of the lungs. 5. 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 10/11/2021 Skeletal survey ([facility]) No new lytic changes to suggest progression of myeloma 09/29/2021 CT chest IMPRESSION: 1. Mild reticulonodular opacities and groundglass opacities in right lower lobe slightly increased since 03/25/21. 2. Other 2-3 mm nodular opacities, stable. Consider continued interval follow-up. 3. 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 4. Mild emphysematous changes of the lungs. 5. 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 12/27/2020 PET SCAN IMPRESSION: Head and Neck: * No hypermetabolic foci Chest: * New right hilar uptake compared to the 08/21/2018 preoperative PET/CT is favored to be secondary to an inflammatory process or postoperative changes. Recommend 3 month follow-up PET/CT and/or contrast-enhanced chest CT for confirmation. * Areas of nodular pleural thickening along the lateral right middle lobe and right major fissure are unchanged and without FDG avidity, likely postsurgical changes. Abdomen and pelvis: * No evidence of FDG avid neoplastic process Musculoskeletal: * No neoplastic hypermetabolic lesions 02/20/2019 PET SCAN ([place]) Solid spiculated 2.0 cm nodule in the right upper lobe posterior aspect abutting the oblique fissure. SUV 5.5. No lymphadenopathy. No evidence of metastatic disease. LABORATORY DATA: Hemoglobin (g/dL) Date Value 2024 10.0 07/07/2021 13.0 Hematocrit (%) Date Value 2024 30.4 07/07/2021 38.4 WBC (k/uL) Date Value 2024 4.76 07/07/2021 6.28 Platelet Count (k/uL) Date Value 2024 207 07/07/2021 262 ASSESSMENT/PLAN: 1. Malignant neoplasm of upper lobe of right lung (HCC) - ICD9: 162.3, ICD10: C34.11 (primary diagnosis) Stage IB (pT2a, N0, M0) adenocarcinoma of the right lung diagnosed April 2019. Status post right upper lobectomy 04/24/2019. Final pathology indicated invasive adenocarcinoma, acinar predominant type. Tumor size 3.1 cm, all margins negative. 9 resected lymph nodes negative. Adjuvant chemotherapy and radiation therapy not indicated, and routine postop surveillance recommended. Follow-up chest CT 03/30/2022 revealed a new 1.1 cm right lower lobe perihilar nodular opacity adjacent to surgical clips worrisome for neoplasm. Repeat PET scan 04/28/2022 revealed uptake in the right perihilar lymph node concerning for neoplasm. On 05/16/2022 the patient underwent a bronchoscopy with EBUS (Dr. Balwinder Roberto, [facility] in [place]). Bronchoscopy revealed no endobronchial lesions. Transbronchial biopsy of a right hilar lymph node (10 R) was obtained, but pathology revealed only atypical epithelial cells and no evidence of malignancy. Repeat EBUS was performed a [facility] on 06/14/2022 which confirmed adenocarcinoma. PD-L1 <1% and lung hot spot negative for other targetable mutations. Subsequently it was elected to treat with definitive chemoradiation consisting of low-dose weekly Taxol/carboplatin concurrent with involved field radiation. Treatment started 07/04/2022. The patient completed his fifth cycle of weekly chemotherapy on 08/01/2022, and completed his planned radiation on 08/14/2022. Other than myelosuppression he tolerated treatment well. Follow-up CT chest 09/26/2022 showed response. He subsequently started maintenance durvalumab on 10/17/2022, with initial plans to give 1500 mg IV every 4 weeks x 1 year. On follow-up 11/15/2022 the patient was not doing well, and had clinical and radiographic evidence of pneumonitis. It was elected to discontinue durvalumab (the patient received only 1 dose on 10/17/2022). He was started on steroids and clinically improved. The steroids were subsequently weaned and discontinued. Most recent follow-up chest CT 10/22/2023 improved with no evidence of active disease. At this time we will continue close observation. Return in 3 months for follow-up and labs and a chest CT. 2. 203.00 Multiple myeloma IgG lambda multiple myeloma initially diagnosed August 2008. Status post first line therapy with Revlimid and Decadron. Initial treatment discontinued after 6 months due to side effects (vasculitis). Subsequent treatment with Velcade, melphalan and prednisone x 7 cycles finished August 2010. He had a very good partial response. Since then the patient has remained on Aredia, currently dosed at 30 mg every 12 weeks. In regards to myeloma the patient is clinically stable and his paraprotein remains stable. We will monitor the patient's paraprotein closely and discuss treatment options if/when his disease progresses. His next Aredia infusion will be due today. 3. 414.01 Coronary artery disease with history of myocardial infarction Acute IN October 2012. S/P coronary artery stent placement. Stable on current medications. Continue current medication per PCP/cardiology. 4. Neuropathy (HCC) - ICD9: 355.9, ICD10: G62.9 Chronic neuropathy, most likely secondary to underlying myeloma plus/minus other systemic condition. Stable on current medications. 5. Squamous cell skin cancer - ICD9: 709.9, ICD10: L98.9 Squamous cell skin cancer involving the right side of nose removed August 2017. Continue follow-up and management per dermatology (Dr. De Guzman). 6. Chronic pain The patient has a long history of pain, multifactorial in etiology. In part his pain is related to underlying myeloma as well as previous thoracic surgery. The patient was seen by [facility] pain management December 2020, and is much improved on current medications. For now he will continue his current medications and follow-up with [facility] pain management (Dr. Alberts) as scheduled. 7. Anemia Since the diagnosis and treatment of lung cancer the patient has had progressive anemia, most likely multifactorial. Hemoglobin relatively stable. We will continue to monitor, and intervene accordingly if labs worsen. Glenys Kurtz PA-C I spent a total of 30 minutes on the date of the service which included preparing to see the patient, [id number] patient care, completing clinical documentation, performing a medically appropriate examination, counseling and educating the patient/family/caregiver, ordering medications, tests, or procedures, independently interpreting results (not separately reported), communicating results to the patient/family/caregiver, and care coordination (not separately reported). documented in this encounter [facility] 2024 Note HNO ID: [id number] Author: GLENYS KURTZ PA-C Service: ? Author Type: Physician [facility] Worker Type: Progress Notes Filed: 2024 10:54 Note Text: PATIENT NAME: Raghavendra Heard DATE: 2024 PRIMARY CARE PHYSICIAN: Dr. Prerna Grissom II OTHER PHYSICIANS: Dr. Toledo (Cardiology [facility]), Dr. Zhang, Dr. Hernández (Wardrobe Manager in [place]), Dr. Stinson (Thoracic Surgery in [place]), Dr. Alberts (Elements copied from Dr. Becker's note dated October 29, 2023, have been reviewed and updated where appropriate, and all reflect current assessment and medical decision making during today's encounter, 2024) CC: This is a 78 year old male with a history of recurrent lung cancer and multiple myeloma, seen for for scheduled follow-up. INTERIM HISTORY: Mr. Heard returns for follow up. He had pneumonia and was hospitalized for 5 days, November 06-2023 at [facility]. Then he got a URI and saw pulmonology January 01, 2024 who gave him an antibiotic and Prednisone 30 mg for 4 days. He didn't get any better so he went back to pulmonology and he is back on a taper of Prednisone and a sputum test. He is coughing and chest congestion. Today he sounds better. His pain remains controlled. He has no other new issues. MEDICATIONS: gabapentin (NEURONTIN) 300 mg capsule Take 2 capsules by mouth three times a day for 90 days. clonazePAM (KLONOPIN) 1 mg tablet TAKE 1 TABLET BY MOUTH THREE TIMES A DAY NEEDED FOR UP TO 30 DAYS HYDROcodone-acetaminophen (NORCO) 5-325 mg per tablet Take 2 tablets by mouth every 6 hours as needed for up to 30 days. diazePAM (VALIUM) 5 mg tablet Take 1 tablet by mouth every 8 hours as needed for up to 120 days. meloxicam (MOBIC) 15 mg tablet Take 1 tablet by mouth every afternoon. TRELEGY ELLIPTA 100-62.5-25 mcg inhalation powder INHALE 1 PUFF ONCE DAILY FOR 30 DAYS nitroglycerin sublingual (NITROQUICK) 0.4 mg SL tablet Dissolve 1 tablet under the tongue every 5 minutes as needed. senna (SENNA LAXATIVE) 8.6 mg tab Take 2 tablets by mouth two times a day. docusate sodium (COLACE) 100 mg capsule Take 2 capsules by mouth two times a day. albuterol (PROVENTIL) 2.5 mg /3 mL (0.083 %) nebulizer solution 2.5 mg every 4 hours as needed. ANORO ELLIPTA 62.5-25 mcg/actuation inhaler INHALE 1 PUFF INTO THE LUNGS EVERY DAY FOR 90 DAYS DULoxetine (CYMBALTA) 60 mg capsule Take 1 capsule by mouth two times a day. predniSONE (DELTASONE) 10 mg tablet Take 1 tablet by mouth once daily. Take 4 daily x 5 days, then 2 daily x 5 days, then 1 daily or as directed. naloxone 4 mg/actuation nasal spray (NARCAN) Use 1 spray in one nostril as needed for overdose. May repeat every 2 to 3 min in alternating nostrils until medical assistance is available finasteride (PROSCAR) 5 mg tablet triamterene-hydroCHLOROthiazide (MAXZIDE-25) 37.5-25 mg per tablet TAKE 1 TABLET BY MOUTH EVERY DAY IN THE MORNING ondansetron (ZOFRAN) 8 mg tablet Take 1 tablet by mouth every 8 hours as needed for nausea/vomiting. prochlorperazine (COMPAZINE) 10 mg tablet Take 1 tablet by mouth every 6 hours as needed. metoprolol succinate ER (TOPROL XL) 25 mg 24 hr tablet Take 25 mg by mouth once daily. mv-mn/iron/folic acid/herb 190 (VITAMIN D3 COMPLETE ORAL) Take by mouth. ZINC ORAL Take by mouth. tamsulosin ER (FLOMAX) 0.4 mg cap Aspirin 81 mg CpDR Take 81 mg by mouth once daily. atorvastatin 40 mg tablet Take 40 mg by mouth once daily. DOCOSAHEXANOIC ACID/EPA (FISH OIL ORAL) Take by mouth. ALLERGIES: Patient has no known allergies. PAST MEDICAL HISTORY: PAST MEDICAL HISTORY Diagnosis Date Anxiety Enlarged prostate HTN (hypertension) Hypercholesteremia Multiple myeloma, without mention of having achieved remission PAST SURGICAL HISTORY: PAST SURGICAL HISTORY Procedure Laterality Date REMOVAL OF LUNG,LOBECTOMY Right 04/24/2019 right upper lobe REVIEW OF SYSTEMS: As above. PHYSICAL EXAM: Vitals: BP 124/73 Pulse 64 Temp 36.2 ?C (97.1 ?F) (Temporal) Resp 18 Wt 69.2 kg (152 lb 8.9 oz) SpO2 97% BMI 23.20 kg/m? ECOG 1 General: Alert and oriented, no distress, pleasant and cooperative. Heart: Regular, normal S1 and S2, no murmurs, rubs, or gallops Lungs: Expiratory wheezing in both lungs. Abdomen: Benign Extremities: Feet/ankles without edema, posterior tibial pulses full and symmetrical PATHOLOGY: 06/14/2022 Lymph node, 10 R, EBUS transbronchial biopsy Adenocarcinoma. Immunohistochemistry: PD-L1 expression less than 1% ALK rearrangement 0% BRAF - No variant detected [Reference Sequence: ([id number])]. EGFR - No variant detected [Reference Sequence: ([id number])]. HER2 (ERBB2) - No variant detected [Reference Sequence: ([id number])]. KRAS - No variant detected [Reference Sequence: ([id number])]. MET - No variant detected [Reference Sequence: ([id number])]. RADIOLOGIC STUDIES: 10/22/2023 CT chest IMPRESSION: Nearly resolved multif (more content not included)... [facility] 01-16-2024 Telephone encounter Note Patient has an appt on 01/16. Would you like labs? [facility] 01-16-2024 Miscellaneous Notes Patient has an appt on 01/16. Would you like labs? documented in this encounter [facility] 01-09-2024 Note Patient: Raghavendra landeros Procedure Information Date/Time: 01/09/24 1030 Procedure: Right heart cath; PC Approved Location: [facility] 3 / [facility] (Cath) Providers: Leo Toledo MD Clinical information reviewed: Tobacco Allergies Meds Med Hx Surg Hx Fam Hx Physical Exam Airway Mallampati: II TM distance: >3 FB Neck ROM: full Cardiovascular Rhythm: regular Rate: normal Dental Pulmonary (+) rhonchi, wheezes, rales Abdominal Abdomen: soft Bowel sounds: normal Anesthesia Plan ASA 3 other (Conscious sedation) Anesthetic plan and risks discussed with patient. Use of blood products discussed with patient who consented to blood products. Plan discussed with attending. Additional Equipment Requests [facility] 12-27-2023 Telephone encounter Note Patient phones requesting refills as follows: Requested Prescriptions Pending Prescriptions Disp Refills gabapentin (NEURONTIN) 300 mg capsule 180 capsule 2 Sig: Take 2 capsules by mouth three times a day for 90 days. clonazePAM (KLONOPIN) 1 mg tablet 90 tablet 0 Sig: TAKE 1 TABLET BY MOUTH THREE TIMES A DAY NEEDED FOR UP TO 30 DAYS Please review and advise. Rhona Ruiz RN [facility] 12-27-2023 Miscellaneous Notes Patient phones requesting refills as follows: Requested Prescriptions Pending Prescriptions Disp Refills gabapentin (NEURONTIN) 300 mg capsule 180 capsule 2 Sig: Take 2 capsules by mouth three times a day for 90 days. clonazePAM (KLONOPIN) 1 mg tablet 90 tablet 0 Sig: TAKE 1 TABLET BY MOUTH THREE TIMES A DAY NEEDED FOR UP TO 30 DAYS Please review and advise. Rhona Ruiz RN documented in this encounter [facility] 12-27-2023 Note [place] [facility] Subjective Raghavendra Heard is a 78 y.o. year old male patient being seen for 6 mo follow up CAD, hypertension, and hyperlipidemia. He was started on amlodipine at last apt in May 2023. He was admitted to [facility] last month for pneumonia. states PCP stopped metoprolol due to hypotension and dizziness. Denies recurrent lightheadedness/syncope. Denies chest pain and palpitations. Patient Active Problem List Diagnosis Acute myocardial infarction (CMS/HCC) H/O myocardial infarction, greater than 8 weeks Advance directive discussed with patient Arthritis of left knee Atrial septal defect Benign prostatic hyperplasia with urinary frequency Bradycardia Carpal tunnel syndrome Chest wall pain Intercostal neuralgia Coronary artery disease with history of myocardial infarction without history of CABG Coronary arteriosclerosis Dyspnea on exertion Coronary atherosclerosis Generalized anxiety disorder Essential hypertension History of cardiovascular disorder History of colonic polyps History of lung cancer History of myocardial infarction Hyperlipidemia Leg cramps Lesion of radial nerve Low blood pressure Malignant neoplasm of upper lobe of right lung (CMS/HCC) Lung cancer (CMS/HCC) Malignant neoplasm of upper lobe, bronchus or lung Mass of upper lobe of right lung Moderate major depression, single episode (CMS/HCC) Multiple closed fractures of ribs of right side Multiple myeloma (CMS/HCC) Neuropathy Obstructive uropathy Pain Paraseptal emphysema (CMS/HCC) Patent foramen ovale Presence of stent in artery Primary localized osteoarthrosis of multiple sites Primary osteoarthritis of left knee Pulmonary valve disorder Tricuspid valve disorder Pure hypercholesterolemia Right ventricular dilation Sinus bradycardia Acute pain of left knee Adenocarcinoma, lung, left (CMS/HCC) Benign prostatic hyperplasia with lower urinary tract symptoms Generalized osteoarthrosis, 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 He has a hx of CAD and prior IN s/p PATTI to the in 2012. He also has a hx of multiple myeloma and lung CA, and he has undergone a right upper lobectomy. He underwent chemo/radiation - finished Aug, 2022. He was previously investigated for possible ASD and right sided enlargement but MARK done was negative. In October 2023 he was admitted to the [facility] with COPD exacerbation and community-acquired pneumonia. His echocardiogram showed severely elevated right sided pressures. He has a chronic cough from radiation. He has shortness of breath on exertion but no chest pain. No palpitations. He has mild lower extremity edema. Metoprolol was stopped due to low blood pressure. He continues to be on amlodipine 2.5 mg once daily. He is not taking diuretics at this point. Review of Systems Cardiovascular: Positive for dyspnea on exertion and leg swelling. Musculoskeletal: Positive for arthritis and back pain. Neurological: Positive for weakness. All other systems reviewed and are negative. Objective Visit Vitals BP 114/62 (BP Location: Right arm, Patient Position: Sitting) Pulse 66 Ht 1.753 m (5' 9 ) Wt 67.1 kg (148 lb) SpO2 96% BMI 21.86 kg/m??? Smoking Status Former BSA 1.81 m??? Physical Exam Constitutional: Appearance: He is well-developed. He is not ill-appearing. HENT: Head: Normocephalic and atraumatic. Nose: Nose normal. Eyes: General: No scleral icterus. Pupils: Pupils are equal, round, and reactive to light. Neck: Thyroid: No thyromegaly. Vascular: No JVD. Cardiovascular: Rate and Rhythm: Normal rate and regular rhythm. Pulses: Radial pulses are 2+ on the right side and 2+ on the left side. Heart sounds: Normal heart sounds. No murmur heard. No friction rub. No gallop. Pulmonary: Effort: Pulmonary effort is normal. No respiratory distress. Breath sounds: Examination of the right-upper field reveals decreased breath sounds. Examination of the right-middle field reveals decreased breath sounds. Decreased breath sounds present. No wheezing or rales. Chest: Chest wall: No tenderness. Abdominal: General: Bowel sounds are normal. There is no distension. Palpations: Abdomen is soft. Tenderness: There is no abdominal tenderness. Musculoskeletal: General: No swelling. Cervical back: Neck supple. Skin: General: Skin is warm (more content not included)... [facility] 12-24-2023 Telephone encounter Note Pt notified of scripts and verbalizes understanding. Rhona Ruiz RN [facility] Work Phone: 12-24-2023 Miscellaneous Notes Pt notified of scripts and verbalizes understanding. Rhona Ruiz RN Voicemail message received from pt requesting his [place] script be sent to [facility] pharmacy in [place]. States he phoned in a request on Sunday. Pt's record shows scripts for Valium and [place] were sent on 12/23/23. Call placed to pt. No answer. Voicemail is full. Unable to leave a message. Rhona Ruiz RN documented in this encounter [facility] 12-24-2023 Telephone encounter Note Voicemail message received from pt requesting his [place] script be sent to [facility] pharmacy in [place]. States he phoned in a request on Sunday. Pt's record shows scripts for Valium and [place] were sent on 12/23/23. Call placed to pt. No answer. Voicemail is full. Unable to leave a message. Rhona Ruiz RN [facility] 11-16-2023 Telephone encounter Note Patient is requesting refill of his hydrocodone be sent to [email or web address]. Jordana Drummond MA [facility] 11-16-2023 Miscellaneous Notes Patient is requesting refill of his hydrocodone be sent to [email or web address]. Jordana Drummond MA documented in this encounter [facility] 10-28-2023 Note HNO ID: [id number] Author: JA BECKER MD Service: ? Author Type: Physician Type: Progress Notes Filed: 10/31/2023 06:53 Note Text: PATIENT NAME: Raghavendra Heard DATE: 10/29/2023 PRIMARY CARE PHYSICIAN: Dr. Prerna Grissom II OTHER PHYSICIANS: Dr. Toledo (Cardiology [facility]), Dr. Zhang, Dr. Hernández (Wardrobe Manager in [place]), Dr. Stinson (Thoracic Surgery in [place]), Dr. Alberts Portions of this encounter note have been copied from the note from 08/06/2023 and has been updated where appropriate, and reflect my current medical decision making from today. CC: This is a 78 year old male with a history of recurrent lung cancer and multiple myeloma, seen for for scheduled follow-up. INTERIM HISTORY: Since the patient's last visit here he has had no significant medical changes. He has intermittent shortness of breath and cough based activity, but overall improved. Intermittent dizziness, not severe. No other neurological symptoms. Pain and anxiety controlled with current medications. MEDICATIONS: HYDROcodone-acetaminophen (NORCO) 5-325 mg per tablet Take 2 tablets by mouth every 6 hours as needed for up to 30 days. clonazePAM (KLONOPIN) 1 mg tablet TAKE 1 TABLET BY MOUTH THREE TIMES A DAY NEEDED FOR UP TO 30 DAYS gabapentin (NEURONTIN) 300 mg capsule Take 2 capsules by mouth three times a day for 90 days. diazePAM (VALIUM) 5 mg tablet Take 1 tablet by mouth every 8 hours as needed for up to 120 days. TRELEGY ELLIPTA 100-62.5-25 mcg inhalation powder INHALE 1 PUFF ONCE DAILY FOR 30 DAYS nitroglycerin sublingual (NITROQUICK) 0.4 mg SL tablet Dissolve 1 tablet under the tongue every 5 minutes as needed. senna (SENNA LAXATIVE) 8.6 mg tab Take 2 tablets by mouth two times a day. docusate sodium (COLACE) 100 mg capsule Take 2 capsules by mouth two times a day. albuterol (PROVENTIL) 2.5 mg /3 mL (0.083 %) nebulizer solution 2.5 mg every 4 hours as needed. ANORO ELLIPTA 62.5-25 mcg/actuation inhaler INHALE 1 PUFF INTO THE LUNGS EVERY DAY FOR 90 DAYS DULoxetine (CYMBALTA) 60 mg capsule Take 1 capsule by mouth two times a day. predniSONE (DELTASONE) 10 mg tablet Take 1 tablet by mouth once daily. Take 4 daily x 5 days, then 2 daily x 5 days, then 1 daily or as directed. naloxone 4 mg/actuation nasal spray (NARCAN) Use 1 spray in one nostril as needed for overdose. May repeat every 2 to 3 min in alternating nostrils until medical assistance is available finasteride (PROSCAR) 5 mg tablet triamterene-hydroCHLOROthiazide (MAXZIDE-25) 37.5-25 mg per tablet TAKE 1 TABLET BY MOUTH EVERY DAY IN THE MORNING ondansetron (ZOFRAN) 8 mg tablet Take 1 tablet by mouth every 8 hours as needed for nausea/vomiting. prochlorperazine (COMPAZINE) 10 mg tablet Take 1 tablet by mouth every 6 hours as needed. metoprolol succinate ER (TOPROL XL) 25 mg 24 hr tablet Take 25 mg by mouth once daily. mv-mn/iron/folic acid/herb 190 (VITAMIN D3 COMPLETE ORAL) Take by mouth. ZINC ORAL Take by mouth. tamsulosin ER (FLOMAX) 0.4 mg cap Aspirin 81 mg CpDR Take 81 mg by mouth once daily. atorvastatin 40 mg tablet Take 40 mg by mouth once daily. DOCOSAHEXANOIC ACID/EPA (FISH OIL ORAL) Take by mouth. ALLERGIES: Patient has no known allergies. PAST MEDICAL HISTORY: PAST MEDICAL HISTORY Diagnosis Date Anxiety Enlarged prostate HTN (hypertension) Hypercholesteremia Multiple myeloma, without mention of having achieved remission PAST SURGICAL HISTORY: PAST SURGICAL HISTORY Procedure Laterality Date REMOVAL OF LUNG,LOBECTOMY Right 04/24/2019 right upper lobe REVIEW OF SYSTEMS: As above. PHYSICAL EXAM: Vitals: BP 134/74 Pulse 69 Temp 36.4 ?C (97.6 ?F) (Temporal) Resp 18 Wt 68.8 kg (151 lb 10.8 oz) SpO2 94% BMI 23.07 kg/m? ECOG 1 General: Alert and oriented, no distress, pleasant and cooperative. Heart: Regular, normal S1 and S2, no murmurs, rubs, or gallops Lungs: Clear to auscultation bilaterally Abdomen: Benign Extremities: Feet/ankles without edema, posterior tibial pulses full and symmetrical PATHOLOGY: 06/14/2022 Lymph node, 10 R, EBUS transbronchial biopsy Adenocarcinoma. Immunohistochemistry: PD-L1 expression less than 1% ALK rearrangement 0% BRAF - No variant detected [Reference Sequence: ([id number])]. EGFR - No variant detected [Reference Sequence: ([id number])]. HER2 (ERBB2) - No variant detected [Reference Sequence: ([id number])]. KRAS - No variant detected [Reference Sequence: ([id number])]. MET - No variant detected [Reference Sequence: ([id number])]. RADIOLOGIC STUDIES: 10/22/2023 CT chest IMPRESSION: Nearly resolved multifocal ground glass opacities throughout both lungs likely infectious/inflammatory. Unchanged radiation fibrosis. Unchanged 5 mm left upper lobe nodule. 08/03/2023 CT chest IMPRESSION: 1. Fluctuating patchy opacities and groundglass opacities, some have increased and some have decreas (more content not included)... [facility] 10-28-2023 History of Present illness Narrative PATIENT NAME: Raghavendra Heard DATE: 10/29/2023 PRIMARY CARE PHYSICIAN: Dr. Prerna Grissom II OTHER PHYSICIANS: Dr. Toledo (Cardiology [facility]), Dr. Zhang, Dr. Hernández (Wardrobe Manager in [place]), Dr. Stinson (Thoracic Surgery in [place]), Dr. Alberts Portions of this encounter note have been copied from the note from 08/06/2023 and has been updated where appropriate, and reflect my current medical decision making from today. CC: This is a 78 year old male with a history of recurrent lung cancer and multiple myeloma, seen for for scheduled follow-up. INTERIM HISTORY: Since the patient's last visit here he has had no significant medical changes. He has intermittent shortness of breath and cough based activity, but overall improved. Intermittent dizziness, not severe. No other neurological symptoms. Pain and anxiety controlled with current medications. MEDICATIONS: HYDROcodone-acetaminophen (NORCO) 5-325 mg per tablet Take 2 tablets by mouth every 6 hours as needed for up to 30 days. clonazePAM (KLONOPIN) 1 mg tablet TAKE 1 TABLET BY MOUTH THREE TIMES A DAY NEEDED FOR UP TO 30 DAYS gabapentin (NEURONTIN) 300 mg capsule Take 2 capsules by mouth three times a day for 90 days. diazePAM (VALIUM) 5 mg tablet Take 1 tablet by mouth every 8 hours as needed for up to 120 days. TRELEGY ELLIPTA 100-62.5-25 mcg inhalation powder INHALE 1 PUFF ONCE DAILY FOR 30 DAYS nitroglycerin sublingual (NITROQUICK) 0.4 mg SL tablet Dissolve 1 tablet under the tongue every 5 minutes as needed. senna (SENNA LAXATIVE) 8.6 mg tab Take 2 tablets by mouth two times a day. docusate sodium (COLACE) 100 mg capsule Take 2 capsules by mouth two times a day. albuterol (PROVENTIL) 2.5 mg /3 mL (0.083 %) nebulizer solution 2.5 mg every 4 hours as needed. ANORO ELLIPTA 62.5-25 mcg/actuation inhaler INHALE 1 PUFF INTO THE LUNGS EVERY DAY FOR 90 DAYS DULoxetine (CYMBALTA) 60 mg capsule Take 1 capsule by mouth two times a day. predniSONE (DELTASONE) 10 mg tablet Take 1 tablet by mouth once daily. Take 4 daily x 5 days, then 2 daily x 5 days, then 1 daily or as directed. naloxone 4 mg/actuation nasal spray (NARCAN) Use 1 spray in one nostril as needed for overdose. May repeat every 2 to 3 min in alternating nostrils until medical assistance is available finasteride (PROSCAR) 5 mg tablet triamterene-hydroCHLOROthiazide (MAXZIDE-25) 37.5-25 mg per tablet TAKE 1 TABLET BY MOUTH EVERY DAY IN THE MORNING ondansetron (ZOFRAN) 8 mg tablet Take 1 tablet by mouth every 8 hours as needed for nausea/vomiting. prochlorperazine (COMPAZINE) 10 mg tablet Take 1 tablet by mouth every 6 hours as needed. metoprolol succinate ER (TOPROL XL) 25 mg 24 hr tablet Take 25 mg by mouth once daily. mv-mn/iron/folic acid/herb 190 (VITAMIN D3 COMPLETE ORAL) Take by mouth. ZINC ORAL Take by mouth. tamsulosin ER (FLOMAX) 0.4 mg cap Aspirin 81 mg CpDR Take 81 mg by mouth once daily. atorvastatin 40 mg tablet Take 40 mg by mouth once daily. DOCOSAHEXANOIC ACID/EPA (FISH OIL ORAL) Take by mouth. ALLERGIES: Patient has no known allergies. PAST MEDICAL HISTORY: PAST MEDICAL HISTORY Diagnosis Date Anxiety Enlarged prostate HTN (hypertension) Hypercholesteremia Multiple myeloma, without mention of having achieved remission PAST SURGICAL HISTORY: PAST SURGICAL HISTORY Procedure Laterality Date REMOVAL OF LUNG,LOBECTOMY Right 04/24/2019 right upper lobe REVIEW OF SYSTEMS: As above. PHYSICAL EXAM: Vitals: BP 134/74 Pulse 69 Temp 36.4 C (97.6 F) (Temporal) Resp 18 Wt 68.8 kg (151 lb 10.8 oz) SpO2 94% BMI 23.07 kg/m ECOG 1 General: Alert and oriented, no distress, pleasant and cooperative. Heart: Regular, normal S1 and S2, no murmurs, rubs, or gallops Lungs: Clear to auscultation bilaterally Abdomen: Benign Extremities: Feet/ankles without edema, posterior tibial pulses full and symmetrical PATHOLOGY: 06/14/2022 Lymph node, 10 R, EBUS transbronchial biopsy Adenocarcinoma. Immunohistochemistry: PD-L1 expression less than 1% ALK rearrangement 0% BRAF - No variant detected [Reference Sequence: ([id number])]. EGFR - No variant detected [Reference Sequence: ([id number])]. HER2 (ERBB2) - No variant detected [Reference Sequence: ([id number])]. KRAS - No variant detected [Reference Sequence: ([id number])]. MET - No variant detected [Reference Sequence: ([id number])]. RADIOLOGIC STUDIES: 10/22/2023 CT chest IMPRESSION: Nearly resolved multifocal ground glass opacities throughout both lungs likely infectious/inflammatory. Unchanged radiation fibrosis. Unchanged 5 mm left upper lobe nodule. 08/03/2023 CT chest IMPRESSION: 1. Fluctuating patchy opacities and groundglass opacities, some have increased and some have decreased since 05/07/23. Consider follow to complete resolution. 2. Residual 5 mm left upper lobe lung opacity, either stable or slightly smaller. 3. Increased mucous plugging. 4. Right perihilar consolidative opacities, most likely a combination of postradiation change, other infectious/inflammatory etiologies and neoplasm, stable. 05/07/2023 CT Chest IMPRESSION: 1. Previously noted patchy opacities have decreased with mild groundglass residual. Residual 7 mm left upper lobe nodular opacity, decreased in size. 2. New diffuse groundglass opacities and patchy opacities in the bilateral lung naidu. Consider follow-up to complete resolution. 3. Right perihilar consolidative opacities, most likely a combination of postradiation change, other infectious/inflammatory etiologies and neoplasm, stable. 02/14/2023 CT chest IMPRESSION: 1. Right perihilar consolidative opacities, increased since 09/26/22, most likely a combination of postradiation change, other infectious/infiltrative etiologies and neoplasm. 2. New patchy opacities and reticulonodular opacities in the bilateral lung naiud most likely infectious/inflammatory in etiology. Superimposed neoplasm cannot be excluded. Consider continued interval follow-up. 12/16/2022 MRI brain ([facility] [place]) Mild atrophy and chronic microvascular disease. No acute intracranial findings. 11/15/2022 Chest x-ray IMPRESSION: 1. Diffuse interstitial opacities throughout both lungs, suggestive of edema. 2. More patchy regions of airspace opacification within the right mid and lower lung, which could be infectious/inflammatory. If warranted, consider chest CT for further assessment. 3. Small right pleural effusion. 10/02/2022 CT Brain ([facility] [place]) Unremarkable exam 09/26/2022 CT chest IMPRESSION: 1. New patchy right perihilar groundglass opacities in the right upper lung field most likely related to postradiation change. 2. Residual adjacent 0.7 x 0.7 cm right perihilar nodular density, decreased in size since 03/30/22. 3. New 2 mm left lower lobe nodular opacity most likely infectious/inflammatory in etiology. Consider continued annual follow-up. 4. Other mild reticulonodular opacities and groundglass opacities in right lower lobe and 2-3 mm nodular opacities, stable. 5. 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 6. Mild emphysematous changes of the lungs. 7. 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 04/28/2022 PET scan IMPRESSION: Head and Neck: * No evidence of FDG avid neoplastic process Chest: * 1.1 cm worsening right perihilar nodule concerning for neoplasm/recurrence. * No evidence of FDG avid thoracic lymphadenopathy, as described. Abdomen and pelvis: * No evidence of FDG avid neoplastic process Musculoskeletal: * No neoplastic hypermetabolic lesions 03/30/2022 CT chest IMPRESSION: 1. New 1.1 cm right lower lobe perihilar nodular opacity adjacent to surgical clips worrisome for neoplasm. Consider further evaluation via PET scan and/or other workup. 2. Mild reticulonodular opacities and groundglass opacities in right lower lobe and other 2-3 mm nodular opacities, stable since 08/30/21. 3. 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 4. Mild emphysematous changes of the lungs. 5. 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 10/11/2021 Skeletal survey ([facility]) No new lytic changes to suggest progression of myeloma 09/29/2021 CT chest IMPRESSION: 1. Mild reticulonodular opacities and groundglass opacities in right lower lobe slightly increased since 03/25/21. 2. Other 2-3 mm nodular opacities, stable. Consider continued interval follow-up. 3. 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 4. Mild emphysematous changes of the lungs. 5. 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 12/27/2020 PET SCAN IMPRESSION: Head and Neck: * No hypermetabolic foci Chest: * New right hilar uptake compared to the 08/21/2018 preoperative PET/CT is favored to be secondary to an inflammatory process or postoperative changes. Recommend 3 month follow-up PET/CT and/or contrast-enhanced chest CT for confirmation. * Areas of nodular pleural thickening along the lateral right middle lobe and right major fissure are unchanged and without FDG avidity, likely postsurgical changes. Abdomen and pelvis: * No evidence of FDG avid neoplastic process Musculoskeletal: * No neoplastic hypermetabolic lesions 02/20/2019 PET SCAN ([place]) Solid spiculated 2.0 cm nodule in the right upper lobe posterior aspect abutting the oblique fissure. SUV 5.5. No lymphadenopathy. No evidence of metastatic disease. LABORATORY DATA: Hemoglobin (g/dL) Date Value 10/29/2023 10.9 07/07/2021 13.0 Hematocrit (%) Date Value 10/29/2023 32.2 07/07/2021 38.4 WBC (k/uL) Date Value 10/29/2023 5.26 07/07/2021 6.28 Platelet Count (k/uL) Date Value 10/29/2023 185 07/07/2021 262 ASSESSMENT/PLAN: 1. Malignant neoplasm of upper lobe of right lung (HCC) - ICD9: 162.3, ICD10: C34.11 (primary diagnosis) Stage IB (pT2a, N0, M0) adenocarcinoma of the right lung diagnosed April 2019. Status post right upper lobectomy 04/24/2019. Final pathology indicated invasive adenocarcinoma, acinar predominant type. Tumor size 3.1 cm, all margins negative. 9 resected lymph nodes negative. Adjuvant chemotherapy and radiation therapy not indicated, and routine postop surveillance recommended. Follow-up chest CT 03/30/2022 revealed a new 1.1 cm right lower lobe perihilar nodular opacity adjacent to surgical clips worrisome for neoplasm. Repeat PET scan 04/28/2022 revealed uptake in the right perihilar lymph node concerning for neoplasm. On 05/16/2022 the patient underwent a bronchoscopy with EBUS (Dr. Balwinder Roberto, [facility] in [place]). Bronchoscopy revealed no endobronchial lesions. Transbronchial biopsy of a right hilar lymph node (10 R) was obtained, but pathology revealed only atypical epithelial cells and no evidence of malignancy. Repeat EBUS was performed a [facility] on 06/14/2022 which confirmed adenocarcinoma. PD-L1 <1% and lung hot spot negative for other targetable mutations. Subsequently it was elected to treat with definitive chemoradiation consisting of low-dose weekly Taxol/carboplatin concurrent with involved field radiation. Treatment started 07/04/2022. The patient completed his fifth cycle of weekly chemotherapy on 08/01/2022, and completed his planned radiation on 08/14/2022. Other than myelosuppression he tolerated treatment well. Follow-up CT chest 09/26/2022 showed response. He subsequently started maintenance durvalumab on 10/17/2022, with initial plans to give 1500 mg IV every 4 weeks x 1 year. On follow-up 11/15/2022 the patient was not doing well, and had clinical and radiographic evidence of pneumonitis. It was elected to discontinue durvalumab (the patient received only 1 dose on 10/17/2022). He was started on steroids and clinically improved. The steroids were subsequently weaned and discontinued. Most recent follow-up chest CT 10/22/2023 improved with no evidence of active disease. At this time we will continue close observation. Return in 3 months for follow-up and labs. We will repeat chest CT at 6 months (April 24). 2. 203.00 Multiple myeloma IgG lambda multiple myeloma initially diagnosed August 2008. Status post first line therapy with Revlimid and Decadron. Initial treatment discontinued after 6 months due to side effects (vasculitis). Subsequent treatment with Velcade, melphalan and prednisone x 7 cycles finished August 2010. He had a very good partial response. Since then the patient has remained on Aredia, currently dosed at 30 mg every 12 weeks. In regards to myeloma the patient is clinically stable and his paraprotein remains stable. We will monitor the patient's paraprotein closely and discuss treatment options if/when his disease progresses. His next Aredia infusion will be due today. 3. 414.01 Coronary artery disease with history of myocardial infarction Acute IN October 2012. S/P coronary artery stent placement. Stable on current medications. Continue current medication per PCP/cardiology. 4. Neuropathy (HCC) - ICD9: 355.9, ICD10: G62.9 Chronic neuropathy, most likely secondary to underlying myeloma plus/minus other systemic condition. Stable on current medications. 5. Squamous cell skin cancer - ICD9: 709.9, ICD10: L98.9 Squamous cell skin cancer involving the right side of nose removed August 2017. Continue follow-up and management per dermatology (Dr. De Guzman). He recently noticed a lesion over his ear, and will be referred back to dermatology for evaluation and treatment as indicated. 6. Chronic pain The patient has a long history of pain, multifactorial in etiology. In part his pain is related to underlying myeloma as well as previous thoracic surgery. The patient was seen by [facility] pain management December 2020, and is much improved on current medications. For now he will continue his current medications and follow-up with [facility] pain management (Dr. Alberts) as scheduled. 7. Anemia Since the diagnosis and treatment of lung cancer the patient has had progressive anemia, most likely multifactorial. CBC currently improved. We will continue to monitor, and intervene accordingly if labs worsen. Ja Becker MD documented in this encounter [facility] 10-22-2023 History of Present illness Narrative Radiology Service Progress Note PATIENT NAME: Raghavendra Heard DATE OF SERVICE: October 22, 2023 TIME: 1:22 PM PATIENT IDENTITY VERIFICATION COMPLETED USING TWO (2) IDENTIFIERS: Name and Date of confirmed by patient verbally. FALL SCREENING: Has the patient had 2 falls in the last year or 1 fall with injury or currently using an Ambulatory Assistive Device (Walker, Cane, Wheelchair, Crutches, etc.)? No PATIENT GENDER DATA: Male PATIENT RELEVANT IMPLANT DATA REVIEWED: Not Applicable PATIENT PRESENTS WITH AN IMPLANTABLE OR ATTACHED TOP AND SEAT COVER FITTER: No RADIOLOGY DEPARTMENT: CT; Exam(s) Completed: Chest PERIPHERAL IV DATA: Not applicable SIGNED BY: RT Karla(Tom) October 22, 2023 1:22 PM documented in this encounter [facility] 10-22-2023 Note HNO ID: [id number] Author: RHONA MARTIN RT(R) Service: ? Author Type: Technologist Type: Progress Notes Filed: 10/22/2023 13:22 Note Text: Radiology Service Progress Note PATIENT NAME: Raghavendra Heard DATE OF SERVICE: October 22, 2023 TIME: 1:22 PM PATIENT IDENTITY VERIFICATION COMPLETED USING TWO (2) IDENTIFIERS: Name and Date of confirmed by patient verbally. FALL SCREENING: Has the patient had 2 falls in the last year or 1 fall with injury or currently using an Ambulatory Assistive Device (Walker, Cane, Wheelchair, Crutches, etc.)? No PATIENT GENDER DATA: Male PATIENT RELEVANT IMPLANT DATA REVIEWED: Not Applicable PATIENT PRESENTS WITH AN IMPLANTABLE OR ATTACHED TOP AND SEAT COVER FITTER: No RADIOLOGY DEPARTMENT: CT; Exam(s) Completed: Chest PERIPHERAL IV DATA: Not applicable SIGNED BY: RT Karla(R) October 22, 2023 1:22 PM [facility] 10-16-2023 Miscellaneous Notes Call placed to pt. No answer. Message left on pt's personalized voicemail informing him of scripts. Rhona Ruiz RN Patient phones requesting refills as follows: Pt requesting refills for [place] and Klonopin. Last norco script written on 09/19/23. Last klonopin script written on 08/06/23. Requested Prescriptions Pending Prescriptions Disp Refills HYDROcodone-acetaminophen (NORCO) 5-325 mg per tablet 180 tablet 0 Sig: Take 2 tablets by mouth every 6 hours as needed for up to 30 days. clonazePAM (KLONOPIN) 1 mg tablet 90 tablet 0 Sig: TAKE 1 TABLET BY MOUTH THREE TIMES A DAY NEEDED FOR UP TO 30 DAYS Please review and advise. Rhona Ruiz RN documented in this encounter [facility] 09-20-2023 Instructions Anupam Haji MD - 09/20/2023 1:23 PM EDT Hi Raghavendra Heard, You were at the [facility] today for an appointment. The following describes your care plan and instructions: Stop Lyrica, restart Gabapentin 600mg TID Continue Duloxetine 60mg BID Defer hydrocodone to prescribing physician Return to clinic in 3 months Please call the clinic with any questions or issues. Thank you for allowing us to participate in your care. [facility] September 20, 2023 documented in this encounter [facility] 09-20-2023 History of Present illness Narrative [facility] Medication Refill Raghavendra Heard September 20, 2023 Medication Refill Appointment Raghavendra Heard is a 78 year old male who presents to [facility], accompanied by spouse, Radha, for follow-up. SUBJECTIVE: Raghavendra Heard reports the following new complaints: Patient states that the Gabapentin worked better than the Lyrica. The pain is located in the feet. He reports the pain has been occuring for 15 years. He report the pain is constant. He describes the pain as tingling. He rates his pain at a 0/10 currently and ranges from a 0 to a 9 on a 0-10 scale. His pain is aggravated by lifting. The pain is mitigated by medications. Date of last visit: 05/03/2023 PLAN: 1) Continue Cymbalta 60 mg twice daily. 2) Discontinue Gabapentin, start Lyrica 75 mg TID. 3) Discuss with Dr. Becker the need for electric scooter as well as considering opioid rotation. 4) RTC in 8 weeks F/U The above plan and management options were discussed at length with patient. Patient is in agreement with the above and verbalized understanding. Lexus Alberts, May His current pain medication regimen is: 1) Narcotics: Hydrocodone 5 mg/Acetaminophen 325 mg two tablets every 6 yours as needed 2) NSAIDS: Meloxicam 15mg once daily 3) Membrane Stabilizers: Cymbalta 60 mg two times a day Pregabalin 75 mg take 1 capsule three times a day 4) Other: None Since his last visit the patient reported inadequate relief of lower extremity peripheral neuropathy being on Lyrica compared to Gabapentin. He requests refills on the following medications: 1) Narcotics: n/a 2) NSAIDS: prescribed Meloxicam from another provider 3) Membrane Stabilizers: switch back to Gabapentin 4) Other: cymbalta Current Outpatient Medications Medication Sig HYDROcodone-acetaminophen (NORCO) 5-325 mg per tablet Take 2 tablets by mouth every 6 hours as needed for up to 30 days. clonazePAM (KLONOPIN) 1 mg tablet TAKE 1 TABLET BY MOUTH THREE TIMES A DAY NEEDED FOR UP TO 30 DAYS meloxicam (MOBIC) 15 mg tablet Take 1 tablet by mouth once daily. diazePAM (VALIUM) 5 mg tablet Take 1 tablet by mouth every 8 hours as needed for up to 120 days. TRELEGY ELLIPTA 100-62.5-25 mcg inhalation powder INHALE 1 PUFF ONCE DAILY FOR 30 DAYS nitroglycerin sublingual (NITROQUICK) 0.4 mg SL tablet Dissolve 1 tablet under the tongue every 5 minutes as needed. senna (SENNA LAXATIVE) 8.6 mg tab Take 2 tablets by mouth two times a day. docusate sodium (COLACE) 100 mg capsule Take 2 capsules by mouth two times a day. albuterol (PROVENTIL) 2.5 mg /3 mL (0.083 %) nebulizer solution 2.5 mg every 4 hours as needed. ANORO ELLIPTA 62.5-25 mcg/actuation inhaler INHALE 1 PUFF INTO THE LUNGS EVERY DAY FOR 90 DAYS DULoxetine (CYMBALTA) 60 mg capsule Take 1 capsule by mouth two times a day. predniSONE (DELTASONE) 10 mg tablet Take 1 tablet by mouth once daily. Take 4 daily x 5 days, then 2 daily x 5 days, then 1 daily or as directed. naloxone 4 mg/actuation nasal spray (NARCAN) Use 1 spray in one nostril as needed for overdose. May repeat every 2 to 3 min in alternating nostrils until medical assistance is available finasteride (PROSCAR) 5 mg tablet triamterene-hydroCHLOROthiazide (MAXZIDE-25) 37.5-25 mg per tablet TAKE 1 TABLET BY MOUTH EVERY DAY IN THE MORNING ondansetron (ZOFRAN) 8 mg tablet Take 1 tablet by mouth every 8 hours as needed for nausea/vomiting. prochlorperazine (COMPAZINE) 10 mg tablet Take 1 tablet by mouth every 6 hours as needed. metoprolol succinate ER (TOPROL XL) 25 mg 24 hr tablet Take 25 mg by mouth once daily. mv-mn/iron/folic acid/herb 190 (VITAMIN D3 COMPLETE ORAL) Take by mouth. ZINC ORAL Take by mouth. tamsulosin ER (FLOMAX) 0.4 mg cap Aspirin 81 mg CpDR Take 81 mg by mouth once daily. atorvastatin 40 mg tablet Take 40 mg by mouth once daily. DOCOSAHEXANOIC ACID/EPA (FISH OIL ORAL) Take by mouth. gabapentin (NEURONTIN) 300 mg capsule Take 2 capsules by mouth three times a day for 90 days. No current facility-administered medications for this visit. ALLERGIES No Known Allergies Review of Symptoms: General: Denies unintentional weight loss, fever, or fatigue. GI: Denies incontinence, nausea, vomiting, constipation, or abdominal pain. : Denies bladder incontinence, urgency,and increased frequency. Neurologic: Positive for numbness and tingling bilateral toes Does the patient feel safe at home Yes Risk assessment at risk due to fall: NONE September 20, 2023 Time: 1315 The subjective information: including chief complaint, past medical history and review of systems, was explored in detail with the patient and edited as needed and is complete. Anupam Haji MD September 20, 2023 OBJECTIVE: BP 129/66 Pulse 56 Wt 152 lb 1.9 oz (69.0kg) General appearance: Well appearing, alert, in no acute distress, well-hydrated, well nourished., well appearing, alert, and in no acute distress Skin: skin color, texture, turgor normal, no rashes or lesions Heart: RRR. Lungs: Clear, airway unobstructed OARRS website checked and validated. All prescriptions have been APPROPRIATELY filled. No suspicious activity was identified.- September 20, 2023 by Anupam Haji MD. HPI & ASSESSMENT: Anupam Haji PGY5 and patient's were present during the interview and physical exam. Raghavendra Heard is a 78 year old male with chronic right sided chest wall pain in the setting of RUL lung cancer s/p right upper lobectomy and chemotherapy-induced peripheral neuropathy who returns for follow-up of lower extremity neuropathy. Since switching to Lyrica, he has not had as much relief of his neuropathy, which primarily affects his toes on both feet. He prefers to switch back to Gabapentin. He continues to have excellent relief of chest wall pain with Duloxetine. We will discontinue Lyrica and restart Gabapentin at his last effective dose. Patient agreed to the plan and all questions were answered. 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 Patient is in agreement with the above and verbalized understanding. I spent a total of 30 minutes on the date of the service which included preparing to see the patient, [id number] patient care, completing clinical documentation, performing a medically appropriate examination, counseling and educating the patient/family/caregiver, ordering medications, tests, or procedures, and communicating with other HCPs (not separately reported). Lexus Alberts DO September 20, 2023 documented in this encounter [facility] 09-20-2023 Note HNO ID: [id number] Author: LEXUS ALBERTS DO Service: ? Author Type: Physician Type: Progress Notes Filed: 09/20/2023 13:47 Note Text: [facility] Medication Refill Raghavendra Heard September 20, 2023 Medication Refill Appointment Raghavendra Heard is a 78 year old male who presents to [facility], accompanied by spouse, Radha, for follow-up. SUBJECTIVE: Raghavendra Heard reports the following new complaints: Patient states that the Gabapentin worked better than the Lyrica. The pain is located in the feet. He reports the pain has been occuring for 15 years. He report the pain is constant. He describes the pain as tingling. He rates his pain at a 0/10 currently and ranges from a 0 to a 9 on a 0-10 scale. His pain is aggravated by lifting. The pain is mitigated by medications. Date of last visit: 05/03/2023 PLAN: 1) Continue Cymbalta 60 mg twice daily. 2) Discontinue Gabapentin, start Lyrica 75 mg TID. 3) Discuss with Dr. Becker the need for electric scooter as well as considering opioid rotation. 4) RTC in 8 weeks F/U The above plan and management options were discussed at length with patient. Patient is in agreement with the above and verbalized understanding. Lexus Alberts, May His current pain medication regimen is: 1) Narcotics: Hydrocodone 5 mg/Acetaminophen 325 mg two tablets every 6 yours as needed 2) NSAIDS: Meloxicam 15mg once daily 3) Membrane Stabilizers: Cymbalta 60 mg two times a day Pregabalin 75 mg take 1 capsule three times a day 4) Other: None Since his last visit the patient reported inadequate relief of lower extremity peripheral neuropathy being on Lyrica compared to Gabapentin. He requests refills on the following medications: 1) Narcotics: n/a 2) NSAIDS: prescribed Meloxicam from another provider 3) Membrane Stabilizers: switch back to Gabapentin 4) Other: cymbalta Current Outpatient Medications Medication Sig HYDROcodone-acetaminophen (NORCO) 5-325 mg per tablet Take 2 tablets by mouth every 6 hours as needed for up to 30 days. clonazePAM (KLONOPIN) 1 mg tablet TAKE 1 TABLET BY MOUTH THREE TIMES A DAY NEEDED FOR UP TO 30 DAYS meloxicam (MOBIC) 15 mg tablet Take 1 tablet by mouth once daily. diazePAM (VALIUM) 5 mg tablet Take 1 tablet by mouth every 8 hours as needed for up to 120 days. TRELEGY ELLIPTA 100-62.5-25 mcg inhalation powder INHALE 1 PUFF ONCE DAILY FOR 30 DAYS nitroglycerin sublingual (NITROQUICK) 0.4 mg SL tablet Dissolve 1 tablet under the tongue every 5 minutes as needed. senna (SENNA LAXATIVE) 8.6 mg tab Take 2 tablets by mouth two times a day. docusate sodium (COLACE) 100 mg capsule Take 2 capsules by mouth two times a day. albuterol (PROVENTIL) 2.5 mg /3 mL (0.083 %) nebulizer solution 2.5 mg every 4 hours as needed. ANORO ELLIPTA 62.5-25 mcg/actuation inhaler INHALE 1 PUFF INTO THE LUNGS EVERY DAY FOR 90 DAYS DULoxetine (CYMBALTA) 60 mg capsule Take 1 capsule by mouth two times a day. predniSONE (DELTASONE) 10 mg tablet Take 1 tablet by mouth once daily. Take 4 daily x 5 days, then 2 daily x 5 days, then 1 daily or as directed. naloxone 4 mg/actuation nasal spray (NARCAN) Use 1 spray in one nostril as needed for overdose. May repeat every 2 to 3 min in alternating nostrils until medical assistance is available finasteride (PROSCAR) 5 mg tablet triamterene-hydroCHLOROthiazide (MAXZIDE-25) 37.5-25 mg per tablet TAKE 1 TABLET BY MOUTH EVERY DAY IN THE MORNING ondansetron (ZOFRAN) 8 mg tablet Take 1 tablet by mouth every 8 hours as needed for nausea/vomiting. prochlorperazine (COMPAZINE) 10 mg tablet Take 1 tablet by mouth every 6 hours as needed. metoprolol succinate ER (TOPROL XL) 25 mg 24 hr tablet Take 25 mg by mouth once daily. mv-mn/iron/folic acid/herb 190 (VITAMIN D3 COMPLETE ORAL) Take by mouth. ZINC ORAL Take by mouth. tamsulosin ER (FLOMAX) 0.4 mg cap Aspirin 81 mg CpDR Take 81 mg by mouth once daily. atorvastatin 40 mg tablet Take 40 mg by mouth once daily. DOCOSAHEXANOIC ACID/EPA (FISH OIL ORAL) Take by mouth. gabapentin (NEURONTIN) 300 mg capsule Take 2 capsules by mouth three times a day for 90 days. No current facility-administered medications for this visit. ALLERGIES No Known Allergies Review of Symptoms: General: Denies unintentional weight loss, fever, or fatigue. GI: Denies incontinence, nausea, vomiting, constipation, or abdominal pain. : Denies bladder incontinence, urgency,and increased frequency. Neurologic: Positive for numbness and tingling bilateral toes Does the patient feel safe at home Yes Risk assessment at risk due to fall: NONE September 20, 2023 Time: 1315 The subjective information: including chief complaint, past medical history and review of systems, was explored in detail with the patient and edited as needed and is complete. nAupam Haji MD September 20, 2023 OBJECTIVE: BP 129/66 Pulse 56 (more content not included)... [facility] 09-19-2023 Miscellaneous Notes Pt notified of script. Rhona Ruiz RN Patient phones requesting refills as follows: Last RX written on 08/23/23. Requested Prescriptions Pending Prescriptions Disp Refills HYDROcodone-acetaminophen (NORCO) 5-325 mg per tablet 180 tablet 0 Sig: Take 2 tablets by mouth every 6 hours as needed for up to 30 days. Please review and advise. Rhona Ruiz RN documented in this encounter [facility] 09-11-2023 Miscellaneous Notes Called and left voicemail message for patient informing him refill was sent to his pharmacy. PDMP website checked and validated. All prescriptions have been APPROPRIATELY filled. No suspicious activity was identified. 09/11/2023 by Flynn Hopkins PA-C - 08/15/23 pregabalin 75 mg #90 for 30 days Flynn Hopkins PA-C The following approved medication requests have been transmitted electronically. Requested Prescriptions Signed Prescriptions Disp Refills pregabalin (LYRICA) 75 mg capsule 90 capsule 2 Sig: Take 1 capsule by mouth three times a day for 90 days. Authorizing Provider: FLYNN HOPKINS PA-C September 11, 2023 CHARLES: 05/03/23 PLAN: 1) Continue Cymbalta 60 mg twice daily. 2) Discontinue Gabapentin, start Lyrica 75 mg TID. 3) Discuss with Dr. Becker the need for electric scooter as well as considering opioid rotation. 4) RTC in 8 weeks F/U Next pain appointment 09/20/23- Dr. Alberts Patient's calling to request pregabalin prescription with a refill. Please advise documented in this encounter [facility] 08-23-2023 Miscellaneous Notes Pt notified and verbalizes understanding. Rhona Ruiz RN Patient phones requesting refills as follows: Last script written on 07/19/23 Requested Prescriptions Pending Prescriptions Disp Refills HYDROcodone-acetaminophen (NORCO) 5-325 mg per tablet 180 tablet 0 Sig: Take 2 tablets by mouth every 6 hours as needed for up to 30 days. Please review and advise. Rhona Ruiz RN documented in this encounter [facility] 08-15-2023 Miscellaneous Notes Call placed to patient, left message re: prescription was called into pharmacy and to call for 4 week follow up appointment. PDMP website checked and validated. Multiple controlled substances from multiple providers. 08/15/2023 by Flynn Hopkins PA-C - 07/13/23 pregabalin 75 mg #[address] Lexus Alberts Refill approved for 30 days - Raghavendra Heard will need to follow up in the next 4 weeks to discuss the results of this new medication as Raghavendra Heard was to follow up in 8 week after the last visit on 05/03/23. The following approved medication requests have been transmitted electronically. Requested Prescriptions Signed Prescriptions Disp Refills pregabalin (LYRICA) 75 mg capsule 90 capsule 0 Sig: Take 1 capsule by mouth three times a day for 30 days. Authorizing Provider: FLYNN HOPKINS PA-C August 15, 2023 Patient phones requesting refills as follows: Last visit: 05/03/23 Requested Prescriptions Pending Prescriptions Disp Refills pregabalin (LYRICA) 75 mg capsule 90 capsule 2 Sig: Take 1 capsule by mouth three times a day for 90 days. Please review and advise. Vesta Snow LPN Patient has been identified by name and date of : Yes Requested Prescriptions Pending Prescriptions Disp Refills pregabalin (LYRICA) 75 mg capsule 90 capsule 2 Sig: Take 1 capsule by mouth three times a day for 90 days. RX INSTRUCTIONS: Patient aware RX will be sent to pharmacy. No need to notify patient. Zahra Bartholomew documented in this encounter [facility] 08-06-2023 Note HNO ID: [id number] Author: JA BECKER MD Service: ? Author Type: Physician Type: Progress Notes Filed: 08/06/2023 19:53 Note Text: PATIENT NAME: Raghavendra Heard DATE: 08/06/2023 PRIMARY CARE PHYSICIAN: Dr. Prerna Grissom II OTHER PHYSICIANS: Dr. Toledo (Cardiology [facility]), Dr. Zhang, Dr. Hernández (Wardrobe Manager in [place]), Dr. Stinson (Thoracic Surgery in [place]), Dr. Alberts Portions of this encounter note have been copied from the note from 07/09/2023 and has been updated where appropriate, and reflect my current medical decision making from today. CC: This is a 78 year old male with a history of recurrent lung cancer and multiple myeloma, seen for for scheduled follow-up. INTERIM HISTORY: Since the patient's last visit here he weaned off steroids as of 2 weeks ago. Overall he feels about the same. Shortness of breath and productive cough are unchanged. No hemoptysis. No recent fevers or signs of infection. MEDICATIONS: clonazePAM (KLONOPIN) 1 mg tablet TAKE 1 TABLET BY MOUTH THREE TIMES A DAY NEEDED FOR UP TO 30 DAYS HYDROcodone-acetaminophen (NORCO) 5-325 mg per tablet Take 2 tablets by mouth every 6 hours as needed for up to 30 days. TRELEGY ELLIPTA 100-62.5-25 mcg inhalation powder INHALE 1 PUFF ONCE DAILY FOR 30 DAYS nitroglycerin sublingual (NITROQUICK) 0.4 mg SL tablet Dissolve 1 tablet under the tongue every 5 minutes as needed. senna (SENNA LAXATIVE) 8.6 mg tab Take 2 tablets by mouth two times a day. docusate sodium (COLACE) 100 mg capsule Take 2 capsules by mouth two times a day. meloxicam (MOBIC) 15 mg tablet Take 1 tablet by mouth once daily. albuterol (PROVENTIL) 2.5 mg /3 mL (0.083 %) nebulizer solution 2.5 mg every 4 hours as needed. ANORO ELLIPTA 62.5-25 mcg/actuation inhaler INHALE 1 PUFF INTO THE LUNGS EVERY DAY FOR 90 DAYS pregabalin (LYRICA) 75 mg capsule Take 1 capsule by mouth three times a day for 90 days. DULoxetine (CYMBALTA) 60 mg capsule Take 1 capsule by mouth two times a day. predniSONE (DELTASONE) 10 mg tablet Take 1 tablet by mouth once daily. Take 4 daily x 5 days, then 2 daily x 5 days, then 1 daily or as directed. naloxone 4 mg/actuation nasal spray (NARCAN) Use 1 spray in one nostril as needed for overdose. May repeat every 2 to 3 min in alternating nostrils until medical assistance is available finasteride (PROSCAR) 5 mg tablet triamterene-hydroCHLOROthiazide (MAXZIDE-25) 37.5-25 mg per tablet TAKE 1 TABLET BY MOUTH EVERY DAY IN THE MORNING ondansetron (ZOFRAN) 8 mg tablet Take 1 tablet by mouth every 8 hours as needed for nausea/vomiting. prochlorperazine (COMPAZINE) 10 mg tablet Take 1 tablet by mouth every 6 hours as needed. metoprolol succinate ER (TOPROL XL) 25 mg 24 hr tablet Take 25 mg by mouth once daily. mv-mn/iron/folic acid/herb 190 (VITAMIN D3 COMPLETE ORAL) Take by mouth. ZINC ORAL Take by mouth. tamsulosin ER (FLOMAX) 0.4 mg cap Aspirin 81 mg CpDR Take 81 mg by mouth once daily. atorvastatin 40 mg tablet Take 40 mg by mouth once daily. DOCOSAHEXANOIC ACID/EPA (FISH OIL ORAL) Take by mouth. ALLERGIES: Patient has no known allergies. PAST MEDICAL HISTORY: PAST MEDICAL HISTORY Diagnosis Date Anxiety Enlarged prostate HTN (hypertension) Hypercholesteremia Multiple myeloma, without mention of having achieved remission PAST SURGICAL HISTORY: PAST SURGICAL HISTORY Procedure Laterality Date REMOVAL OF LUNG,LOBECTOMY Right 04/24/2019 right upper lobe REVIEW OF SYSTEMS: As above. PHYSICAL EXAM: Vitals: BP 170/68 Pulse (!) 58 Temp 36.1 ?C (97 ?F) (Temporal) Resp 18 Ht 172.7 cm (5' 7.99 ) Wt 69.5 kg (153 lb 3.5 oz) SpO2 93% BMI 23.30 kg/m? ECOG 1 General: Alert and oriented, no distress, pleasant and cooperative. Heart: Regular, normal S1 and S2, no murmurs, rubs, or gallops Lungs: Clear to auscultation bilaterally Abdomen: Benign Extremities: Feet/ankles without edema, posterior tibial pulses full and symmetrical PATHOLOGY: 06/14/2022 Lymph node, 10 R, EBUS transbronchial biopsy Adenocarcinoma. Immunohistochemistry: PD-L1 expression less than 1% ALK rearrangement 0% BRAF - No variant detected [Reference Sequence: ([id number])]. EGFR - No variant detected [Reference Sequence: ([id number])]. HER2 (ERBB2) - No variant detected [Reference Sequence: ([id number])]. KRAS - No variant detected [Reference Sequence: ([id number])]. MET - No variant detected [Reference Sequence: ([id number])]. RADIOLOGIC STUDIES: 08/03/2023 CT chest IMPRESSION: 1. Fluctuating patchy opacities and groundglass opacities, some have increased and some have decreased since 05/07/23. Consider follow to complete resolution. 2. Residual 5 mm left upper lobe lung opacity, either stable or slightly smaller. 3. Increased mucous plugging. 4. Right perihilar consolidative opacities, most likely a combination of postradiation change, other infectious/in (more content not included)... [facility] 08-03-2023 Miscellaneous Notes Patient phones requesting refills as follows: Requested Prescriptions Pending Prescriptions Disp Refills clonazePAM (KLONOPIN) 1 mg tablet [Pharmacy Med Name: CLONAZEPAM 1 MG TABLET] 90 tablet 3 Sig: TAKE 1 TABLET BY MOUTH THREE TIMES A DAY NEEDED FOR UP TO 30 DAYS [place]: Will you sign since [facility] is out of the office? Please review and advise. Rhona Ruiz RN documented in this encounter [facility] 08-03-2023 History of Present illness Narrative Radiology Service Progress Note PATIENT NAME: Raghavendra Heard DATE OF SERVICE: August 03, 2023 TIME: 9:50 AM PATIENT IDENTITY VERIFICATION COMPLETED USING TWO (2) IDENTIFIERS: Name and Date of confirmed by patient verbally. FALL SCREENING: Has the patient had 2 falls in the last year or 1 fall with injury or currently using an Ambulatory Assistive Device (Walker, Cane, Wheelchair, Crutches, etc.)? No PATIENT GENDER DATA: Male PATIENT RELEVANT IMPLANT DATA REVIEWED: Not Applicable PATIENT PRESENTS WITH AN IMPLANTABLE OR ATTACHED TOP AND SEAT COVER FITTER: No RADIOLOGY DEPARTMENT: CT; Exam(s) Completed: Chest PERIPHERAL IV DATA: Not applicable SIGNED BY: RT Ramos(Tom) August 03, 2023 9:50 AM documented in this encounter [facility] 08-03-2023 Note HNO ID: [id number] Author: RUPINDER ELIAS RT(R) Service: ? Author Type: Technologist Type: Progress Notes Filed: 08/03/2023 09:51 Note Text: Radiology Service Progress Note PATIENT NAME: Raghavendra Heard DATE OF SERVICE: August 03, 2023 TIME: 9:50 AM PATIENT IDENTITY VERIFICATION COMPLETED USING TWO (2) IDENTIFIERS: Name and Date of confirmed by patient verbally. FALL SCREENING: Has the patient had 2 falls in the last year or 1 fall with injury or currently using an Ambulatory Assistive Device (Walker, Cane, Wheelchair, Crutches, etc.)? No PATIENT GENDER DATA: Male PATIENT RELEVANT IMPLANT DATA REVIEWED: Not Applicable PATIENT PRESENTS WITH AN IMPLANTABLE OR ATTACHED TOP AND SEAT COVER FITTER: No RADIOLOGY DEPARTMENT: CT; Exam(s) Completed: Chest PERIPHERAL IV DATA: Not applicable SIGNED BY: Rupinder Elias, RT(R) August 03, 2023 9:50 AM [facility] 07-09-2023 Note HNO ID: [id number] Author: GLENYS KURTZ PA-C Service: ? Author Type: Physician [facility] Worker Type: Progress Notes Filed: 07/09/2023 11:44 Note Text: PATIENT NAME: Raghavendra Heard DATE: 07/09/2023 PRIMARY CARE PHYSICIAN: Dr. Prerna Grissom II OTHER PHYSICIANS: Dr. Toledo (Cardiology [facility]), Dr. Zhang, Dr. Hernández (Wardrobe Manager in [place]), Dr. Stinson (Thoracic Surgery in [place]), Dr. Alberts (Elements copied from Dr. Becker's note dated May 14, 2023, have been reviewed and updated where appropriate, and all reflect current assessment and medical decision making during today's encounter, July 09, 2023) CC: This is a 78 year old male with a history of recurrent lung cancer and multiple myeloma, seen for for scheduled follow-up. INTERIM HISTORY: Mr. Heard returns for follow up. Overall he is doing the same. He still has chronic pain. Some days worse than others. He still has shortness of breath off and on. Overall it is stable. He is currently on 5 mg of Prednisone daily. Denies any new symptoms. No fevers, chills, nausea, vomiting. MEDICATIONS: HYDROcodone-acetaminophen (NORCO) 5-325 mg per tablet Take 2 tablets by mouth every 6 hours as needed. albuterol (PROVENTIL) 2.5 mg /3 mL (0.083 %) nebulizer solution 2.5 mg every 4 hours as needed. ANORO ELLIPTA 62.5-25 mcg/actuation inhaler INHALE 1 PUFF INTO THE LUNGS EVERY DAY FOR 90 DAYS pregabalin (LYRICA) 75 mg capsule Take 1 capsule by mouth three times a day for 90 days. DULoxetine (CYMBALTA) 60 mg capsule Take 1 capsule by mouth two times a day. predniSONE (DELTASONE) 10 mg tablet Take 1 tablet by mouth once daily. Take 4 daily x 5 days, then 2 daily x 5 days, then 1 daily or as directed. meloxicam (MOBIC) 15 mg tablet Take 1 tablet by mouth once daily. senna (SENNA LAXATIVE) 8.6 mg tab Take 2 tablets by mouth twice daily. clonazePAM (KLONOPIN) 1 mg tablet Take 1 tablet by mouth three times daily as needed for up to 30 days. docusate sodium (COLACE) 100 mg capsule TAKE 2 CAPSULES BY MOUTH TWICE A DAY naloxone 4 mg/actuation nasal spray (NARCAN) Use 1 spray in one nostril as needed for overdose. May repeat every 2 to 3 min in alternating nostrils until medical assistance is available finasteride (PROSCAR) 5 mg tablet triamterene-hydroCHLOROthiazide (MAXZIDE-25) 37.5-25 mg per tablet TAKE 1 TABLET BY MOUTH EVERY DAY IN THE MORNING ondansetron (ZOFRAN) 8 mg tablet Take 1 tablet by mouth every 8 hours as needed for nausea/vomiting. prochlorperazine (COMPAZINE) 10 mg tablet Take 1 tablet by mouth every 6 hours as needed. metoprolol succinate ER (TOPROL XL) 25 mg 24 hr tablet Take 25 mg by mouth once daily. mv-mn/iron/folic acid/herb 190 (VITAMIN D3 COMPLETE ORAL) Take by mouth. ZINC ORAL Take by mouth. tamsulosin ER (FLOMAX) 0.4 mg cap nitroglycerin sublingual (NITROQUICK) 0.4 mg SL tablet Dissolve 0.4 mg under the tongue every 5 minutes as needed. Aspirin 81 mg CpDR Take 81 mg by mouth once daily. atorvastatin 40 mg tablet Take 40 mg by mouth once daily. DOCOSAHEXANOIC ACID/EPA (FISH OIL ORAL) Take by mouth. ALLERGIES: Patient has no known allergies. PAST MEDICAL HISTORY: PAST MEDICAL HISTORY Diagnosis Date Anxiety Enlarged prostate HTN (hypertension) Hypercholesteremia Multiple myeloma, without mention of having achieved remission PAST SURGICAL HISTORY: PAST SURGICAL HISTORY Procedure Laterality Date REMOVAL OF LUNG,LOBECTOMY Right 04/24/2019 right upper lobe REVIEW OF SYSTEMS: As above. PHYSICAL EXAM: Vitals: BP 134/64 Pulse (!) 54 Temp 36.1 ?C (97 ?F) (Temporal) Resp 16 Ht 172.7 cm (5' 7.99 ) Wt 68.4 kg (150 lb 12.7 oz) SpO2 94% BMI 22.93 kg/m? ECOG 1 General: Alert and oriented, no distress, pleasant and cooperative. Heart: Regular, normal S1 and S2, no murmurs, rubs, or gallops Lungs: Clear to auscultation bilaterally Abdomen: Benign Extremities: Feet/ankles without edema, posterior tibial pulses full and symmetrical PATHOLOGY: 06/14/2022 Lymph node, 10 R, EBUS transbronchial biopsy Adenocarcinoma. Immunohistochemistry: PD-L1 expression less than 1% ALK rearrangement 0% BRAF - No variant detected [Reference Sequence: (NM_[id number])]. EGFR - No variant detected [Reference Sequence: ([id number])]. HER2 (ERBB2) - No variant detected [Reference Sequence: (NM_[id number])]. KRAS - No variant detected [Reference Sequence: ([id number])]. MET - No variant detected [Reference Sequence: (NM_[id number])]. RADIOLOGIC STUDIES: 05/07/2023 CT Chest IMPRESSION: 1. Previously noted patchy opacities have decreased with mild groundglass residual. Residual 7 mm left upper lobe nodular opacity, decreased in size. 2. New diffuse groundglass opacities and patchy opacities in the bilateral lung naidu. Consider follow-up to complete resolution. 3. Right perihilar consolidative opacities, most likely a combination of postradiation change, (more content not included)... [facility] 05-17-2023 Miscellaneous Notes Pt notified of scripts. Rhona Ruiz RN Patient phones requesting refills as follows: Requested Prescriptions Pending Prescriptions Disp Refills codeine-guaiFENesin (ROBITUSSIN AC) 10-100 mg/5 mL syrup 473 mL 0 Sig: Take 10 mL by mouth every 4 hours as needed for up to 30 days. Please review and advise. Rhona Ruiz RN documented in this encounter [facility] 05-17-2023 Miscellaneous Notes Pt notified of scripts. Rhona Ruiz RN Patient phones requesting refills as follows: Last script filled on 07/06/22 Requested Prescriptions Pending Prescriptions Disp Refills HYDROcodone-acetaminophen (NORCO) 5-325 mg per tablet 180 tablet 0 Sig: Take 2 tablets by mouth every 6 hours as needed. Please review and advise. Rhona Ruiz RN documented in this encounter [facility] 05-14-2023 Note HNO ID: [id number] Author: Ja Becker MD Service: ? Author Type: Physician Type: Progress Notes Filed: 05/14/2023 9:39 PM Note Text: PATIENT NAME: Raghavendra Heard DATE: 05/14/2023 PRIMARY CARE PHYSICIAN: Dr. Prerna Grissom II OTHER PHYSICIANS: Dr. Toledo (Cardiology [facility]), Dr. Zhang, Dr. Hernández (Wardrobe Manager in [place]), Dr. Stinson (Thoracic Surgery in [place]), Dr. Alberts Portions of this encounter note have been copied from the note from 04/02/2023 and has been updated where appropriate, and reflect my current medical decision making from today. CC: This is a 78 year old male with a history of recurrent lung cancer and multiple myeloma, seen for for scheduled follow-up. INTERIM HISTORY: At the patient's last visit here he was having significant shortness of breath and additional symptoms suggesting bronchitis. He was given a course of antibiotics with Levaquin and resumed prednisone. 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 The patient improved, and subsequently weaned prednisone to 20 mg daily. On follow-up today his main complaint is continued dyspnea on exertion, but not as severe. Occasional dry cough. No fevers or other signs of infection. Chronic pain and anxiety are controlled on current medications. MEDICATIONS: albuterol (PROVENTIL) 2.5 mg /3 mL (0.083 %) nebulizer solution 2.5 mg every 4 hours as needed. ANORO ELLIPTA 62.5-25 mcg/actuation inhaler INHALE 1 PUFF INTO THE LUNGS EVERY DAY FOR 90 DAYS pregabalin (LYRICA) 75 mg capsule Take 1 capsule by mouth three times a day for 90 days. DULoxetine (CYMBALTA) 60 mg capsule Take 1 capsule by mouth two times a day. HYDROcodone-acetaminophen (NORCO) 5-325 mg per tablet Take 2 tablets by mouth every 6 hours as needed. predniSONE (DELTASONE) 10 mg tablet Take 1 tablet by mouth once daily. Take 4 daily x 5 days, then 2 daily x 5 days, then 1 daily or as directed. levoFLOXacin (LEVAQUIN) 500 mg tablet Take 1 tablet by mouth once daily. meloxicam (MOBIC) 15 mg tablet Take 1 tablet by mouth once daily. senna (SENNA LAXATIVE) 8.6 mg tab Take 2 tablets by mouth twice daily. clonazePAM (KLONOPIN) 1 mg tablet Take 1 tablet by mouth three times daily as needed for up to 30 days. docusate sodium (COLACE) 100 mg capsule TAKE 2 CAPSULES BY MOUTH TWICE A DAY naloxone 4 mg/actuation nasal spray (NARCAN) Use 1 spray in one nostril as needed for overdose. May repeat every 2 to 3 min in alternating nostrils until medical assistance is available finasteride (PROSCAR) 5 mg tablet triamterene-hydroCHLOROthiazide (MAXZIDE-25) 37.5-25 mg per tablet TAKE 1 TABLET BY MOUTH EVERY DAY IN THE MORNING ondansetron (ZOFRAN) 8 mg tablet Take 1 tablet by mouth every 8 hours as needed for nausea/vomiting. prochlorperazine (COMPAZINE) 10 mg tablet Take 1 tablet by mouth every 6 hours as needed. metoprolol succinate ER (TOPROL XL) 25 mg 24 hr tablet Take 25 mg by mouth once daily. mv-mn/iron/folic acid/herb 190 (VITAMIN D3 COMPLETE ORAL) Take by mouth. ZINC ORAL Take by mouth. tamsulosin ER (FLOMAX) 0.4 mg cap nitroglycerin sublingual (NITROQUICK) 0.4 mg SL tablet Dissolve 0.4 mg under the tongue every 5 minutes as needed. Aspirin 81 mg CpDR Take 81 mg by mouth once daily. atorvastatin 40 mg tablet Take 40 mg by mouth once daily. DOCOSAHEXANOIC ACID/EPA (FISH OIL ORAL) Take by mouth. ALLERGIES: Patient has no known allergies. PAST MEDICAL HISTORY: PAST MEDICAL HISTORY Diagnosis Date Anxiety Enlarged prostate HTN (hypertension) Hypercholesteremia Multiple myeloma, without mention of having achieved remission PAST SURGICAL HISTORY: PAST SURGICAL HISTORY Procedure Laterality Date REMOVAL OF LUNG,LOBECTOMY Right 04/24/2019 right upper lobe REVIEW OF SYSTEMS: As above. PHYSICAL EXAM: Vitals: BP 136/64 Pulse (!) 55 Temp 36.4 ?C (97.6 ?F) (Temporal) Resp 18 Ht 172.7 cm (5' 7.99 ) Wt 69.3 kg (152 lb 12.8 oz) SpO2 94% BMI 23.24 kg/m? ECOG 1 Exam limited to gross visualization where appropriate due to COVID-19. Gen.: This is an age-appropriate patient in no acute distress. Head: Appears atraumatic with no visible lesions. Eyes: Pupils equally round and reactive to light, extraocular muscles are intact. Neck: Supple. Mouth: Masked. Respiratory: Audible wheezing and short of breath. Neurologic: Nonfocal to gross visualization. Alert and oriented ?3. Psychiatric: No evidence of inappropriate anxiety or depression. Skin: Visible areas of skin without rash, lesions, wounds or petechiae. PATHOLOGY: 06/14/2022 Lymph node, 10 R, EBUS transbronchial biopsy Adenocarcinoma. Immunohistochemistry: PD-L1 expression less than 1% ALK rearrangement 0% BRAF - No variant detected [Reference Sequence: ([id number])]. EGFR - No variant detected [Reference Sequence: ([id number])]. HER2 (ERBB2) - No variant detected [Refer (more content not included)... [facility] 05-14-2023 History of Present illness Narrative PATIENT NAME: Raghavendra Heard DATE: 05/14/2023 PRIMARY CARE PHYSICIAN: Dr. Prerna Grissom II OTHER PHYSICIANS: Dr. Toledo (Cardiology [facility]), Dr. Zhang, Dr. Hernández (Wardrobe Manager in [place]), Dr. Stinson (Thoracic Surgery in [place]), Dr. Alberts Portions of this encounter note have been copied from the note from 04/02/2023 and has been updated where appropriate, and reflect my current medical decision making from today. CC: This is a 78 year old male with a history of recurrent lung cancer and multiple myeloma, seen for for scheduled follow-up. INTERIM HISTORY: At the patient's last visit here he was having significant shortness of breath and additional symptoms suggesting bronchitis. He was given a course of antibiotics with Levaquin and resumed prednisone. 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 The patient improved, and subsequently weaned prednisone to 20 mg daily. On follow-up today his main complaint is continued dyspnea on exertion, but not as severe. Occasional dry cough. No fevers or other signs of infection. Chronic pain and anxiety are controlled on current medications. MEDICATIONS: albuterol (PROVENTIL) 2.5 mg /3 mL (0.083 %) nebulizer solution 2.5 mg every 4 hours as needed. ANORO ELLIPTA 62.5-25 mcg/actuation inhaler INHALE 1 PUFF INTO THE LUNGS EVERY DAY FOR 90 DAYS pregabalin (LYRICA) 75 mg capsule Take 1 capsule by mouth three times a day for 90 days. DULoxetine (CYMBALTA) 60 mg capsule Take 1 capsule by mouth two times a day. HYDROcodone-acetaminophen (NORCO) 5-325 mg per tablet Take 2 tablets by mouth every 6 hours as needed. predniSONE (DELTASONE) 10 mg tablet Take 1 tablet by mouth once daily. Take 4 daily x 5 days, then 2 daily x 5 days, then 1 daily or as directed. levoFLOXacin (LEVAQUIN) 500 mg tablet Take 1 tablet by mouth once daily. meloxicam (MOBIC) 15 mg tablet Take 1 tablet by mouth once daily. senna (SENNA LAXATIVE) 8.6 mg tab Take 2 tablets by mouth twice daily. clonazePAM (KLONOPIN) 1 mg tablet Take 1 tablet by mouth three times daily as needed for up to 30 days. docusate sodium (COLACE) 100 mg capsule TAKE 2 CAPSULES BY MOUTH TWICE A DAY naloxone 4 mg/actuation nasal spray (NARCAN) Use 1 spray in one nostril as needed for overdose. May repeat every 2 to 3 min in alternating nostrils until medical assistance is available finasteride (PROSCAR) 5 mg tablet triamterene-hydroCHLOROthiazide (MAXZIDE-25) 37.5-25 mg per tablet TAKE 1 TABLET BY MOUTH EVERY DAY IN THE MORNING ondansetron (ZOFRAN) 8 mg tablet Take 1 tablet by mouth every 8 hours as needed for nausea/vomiting. prochlorperazine (COMPAZINE) 10 mg tablet Take 1 tablet by mouth every 6 hours as needed. metoprolol succinate ER (TOPROL XL) 25 mg 24 hr tablet Take 25 mg by mouth once daily. mv-mn/iron/folic acid/herb 190 (VITAMIN D3 COMPLETE ORAL) Take by mouth. ZINC ORAL Take by mouth. tamsulosin ER (FLOMAX) 0.4 mg cap nitroglycerin sublingual (NITROQUICK) 0.4 mg SL tablet Dissolve 0.4 mg under the tongue every 5 minutes as needed. Aspirin 81 mg CpDR Take 81 mg by mouth once daily. atorvastatin 40 mg tablet Take 40 mg by mouth once daily. DOCOSAHEXANOIC ACID/EPA (FISH OIL ORAL) Take by mouth. ALLERGIES: Patient has no known allergies. PAST MEDICAL HISTORY: PAST MEDICAL HISTORY Diagnosis Date Anxiety Enlarged prostate HTN (hypertension) Hypercholesteremia Multiple myeloma, without mention of having achieved remission PAST SURGICAL HISTORY: PAST SURGICAL HISTORY Procedure Laterality Date REMOVAL OF LUNG,LOBECTOMY Right 04/24/2019 right upper lobe REVIEW OF SYSTEMS: As above. PHYSICAL EXAM: Vitals: BP 136/64 Pulse (!) 55 Temp 36.4 C (97.6 F) (Temporal) Resp 18 Ht 172.7 cm (5' 7.99 ) Wt 69.3 kg (152 lb 12.8 oz) SpO2 94% BMI 23.24 kg/m ECOG 1 Exam limited to gross visualization where appropriate due to COVID-19. Gen.: This is an age-appropriate patient in no acute distress. Head: Appears atraumatic with no visible lesions. Eyes: Pupils equally round and reactive to light, extraocular muscles are intact. Neck: Supple. Mouth: Masked. Respiratory: Audible wheezing and short of breath. Neurologic: Nonfocal to gross visualization. Alert and oriented 3. Psychiatric: No evidence of inappropriate anxiety or depression. Skin: Visible areas of skin without rash, lesions, wounds or petechiae. PATHOLOGY: 06/14/2022 Lymph node, 10 R, EBUS transbronchial biopsy Adenocarcinoma. Immunohistochemistry: PD-L1 expression less than 1% ALK rearrangement 0% BRAF - No variant detected [Reference Sequence: ([id number])]. EGFR - No variant detected [Reference Sequence: (NM_[id number])]. HER2 (ERBB2) - No variant detected [Reference Sequence: (NM_[id number])]. KRAS - No variant detected [Reference Sequence: ([id number])]. MET - No variant detected [Reference Sequence: (NM_[id number])]. RADIOLOGIC STUDIES: 05/07/2023 CT Chest IMPRESSION: 1. Previously noted patchy opacities have decreased with mild groundglass residual. Residual 7 mm left upper lobe nodular opacity, decreased in size. 2. New diffuse groundglass opacities and patchy opacities in the bilateral lung nadiu. Consider follow-up to complete resolution. 3. Right perihilar consolidative opacities, most likely a combination of postradiation change, other infectious/inflammatory etiologies and neoplasm, stable. 02/14/2023 CT chest IMPRESSION: 1. Right perihilar consolidative opacities, increased since 09/26/22, most likely a combination of postradiation change, other infectious/infiltrative etiologies and neoplasm. 2. New patchy opacities and reticulonodular opacities in the bilateral lung naidu most likely infectious/inflammatory in etiology. Superimposed neoplasm cannot be excluded. Consider continued interval follow-up. 12/16/2022 MRI brain ([facility] [place]) Mild atrophy and chronic microvascular disease. No acute intracranial findings. 11/15/2022 Chest x-ray IMPRESSION: 1. Diffuse interstitial opacities throughout both lungs, suggestive of edema. 2. More patchy regions of airspace opacification within the right mid and lower lung, which could be infectious/inflammatory. If warranted, consider chest CT for further assessment. 3. Small right pleural effusion. 10/02/2022 CT Brain ([facility] [place]) Unremarkable exam 09/26/2022 CT chest IMPRESSION: 1. New patchy right perihilar groundglass opacities in the right upper lung field most likely related to postradiation change. 2. Residual adjacent 0.7 x 0.7 cm right perihilar nodular density, decreased in size since 03/30/22. 3. New 2 mm left lower lobe nodular opacity most likely infectious/inflammatory in etiology. Consider continued annual follow-up. 4. Other mild reticulonodular opacities and groundglass opacities in right lower lobe and 2-3 mm nodular opacities, stable. 5. 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 6. Mild emphysematous changes of the lungs. 7. 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 04/28/2022 PET scan IMPRESSION: Head and Neck: * No evidence of FDG avid neoplastic process Chest: * 1.1 cm worsening right perihilar nodule concerning for neoplasm/recurrence. * No evidence of FDG avid thoracic lymphadenopathy, as described. Abdomen and pelvis: * No evidence of FDG avid neoplastic process Musculoskeletal: * No neoplastic hypermetabolic lesions 03/30/2022 CT chest IMPRESSION: 1. New 1.1 cm right lower lobe perihilar nodular opacity adjacent to surgical clips worrisome for neoplasm. Consider further evaluation via PET scan and/or other workup. 2. Mild reticulonodular opacities and groundglass opacities in right lower lobe and other 2-3 mm nodular opacities, stable since 08/30/21. 3. 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 4. Mild emphysematous changes of the lungs. 5. 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 10/11/2021 Skeletal survey ([facility]) No new lytic changes to suggest progression of myeloma 09/29/2021 CT chest IMPRESSION: 1. Mild reticulonodular opacities and groundglass opacities in right lower lobe slightly increased since 03/25/21. 2. Other 2-3 mm nodular opacities, stable. Consider continued interval follow-up. 3. 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 4. Mild emphysematous changes of the lungs. 5. 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 12/27/2020 PET SCAN IMPRESSION: Head and Neck: * No hypermetabolic foci Chest: * New right hilar uptake compared to the 08/21/2018 preoperative PET/CT is favored to be secondary to an inflammatory process or postoperative changes. Recommend 3 month follow-up PET/CT and/or contrast-enhanced chest CT for confirmation. * Areas of nodular pleural thickening along the lateral right middle lobe and right major fissure are unchanged and without FDG avidity, likely postsurgical changes. Abdomen and pelvis: * No evidence of FDG avid neoplastic process Musculoskeletal: * No neoplastic hypermetabolic lesions 02/20/2019 PET SCAN ([place]) Solid spiculated 2.0 cm nodule in the right upper lobe posterior aspect abutting the oblique fissure. SUV 5.5. No lymphadenopathy. No evidence of metastatic disease. LABORATORY DATA: Hemoglobin (g/dL) Date Value 05/14/2023 11.0 07/07/2021 13.0 Hematocrit (%) Date Value 05/14/2023 33.0 07/07/2021 38.4 WBC (k/uL) Date Value 05/14/2023 6.69 07/07/2021 6.28 Platelet Count (k/uL) Date Value 05/14/2023 228 07/07/2021 262 ASSESSMENT/PLAN: 1. Malignant neoplasm of upper lobe of right lung (HCC) - ICD9: 162.3, ICD10: C34.11 (primary diagnosis) Stage IB (pT2a, N0, M0) adenocarcinoma of the right lung diagnosed April 2019. Status post right upper lobectomy 04/24/2019. Final pathology indicated invasive adenocarcinoma, acinar predominant type. Tumor size 3.1 cm, all margins negative. 9 resected lymph nodes negative. Adjuvant chemotherapy and radiation therapy not indicated, and routine postop surveillance recommended. Follow-up chest CT 03/30/2022 revealed a new 1.1 cm right lower lobe perihilar nodular opacity adjacent to surgical clips worrisome for neoplasm. Repeat PET scan 04/28/2022 revealed uptake in the right perihilar lymph node concerning for neoplasm. On 05/16/2022 the patient underwent a bronchoscopy with EBUS (Dr. Balwinder Roberto, [facility] in [place]). Bronchoscopy revealed no endobronchial lesions. Transbronchial biopsy of a right hilar lymph node (10 R) was obtained, but pathology revealed only atypical epithelial cells and no evidence of malignancy. Repeat EBUS was performed a [facility] on 06/14/2022 which confirmed adenocarcinoma. PD-L1 <1% and lung hot spot negative for other targetable mutations. Subsequently it was elected to treat with definitive chemoradiation consisting of low-dose weekly Taxol/carboplatin concurrent with involved field radiation. Treatment started 07/04/2022. The patient completed his fifth cycle of weekly chemotherapy on 08/01/2022, and completed his planned radiation on 08/14/2022. Other than myelosuppression he tolerated treatment well. Follow-up CT chest 09/26/2022 showed response. He subsequently started maintenance durvalumab on 10/17/2022, with initial plans to give 1500 mg IV every 4 weeks x 1 year. On follow-up 11/15/2022 the patient was not doing well, and had clinical and radiographic evidence of pneumonitis. It was elected to discontinue durvalumab (the patient received only 1 dose on 10/17/2022). He was started on steroids and clinically improved. However, after discontinuing steroids the patient's pulmonary symptoms recurred and when seen on 04/02/2023 steroids were resumed with plans to slowly taper. Currently he is on prednisone 20 mg daily. Most recent chest CT 05/07/2023 stable. At this time the patient will continue as planned with prednisone 20 mg daily plus bronchodilators per pulmonary. I will see him back in 2 months for follow-up and labs. Based on ongoing pulmonary symptoms we will restage again at 3 to 6 months. 2. 203.00 Multiple myeloma IgG lambda multiple myeloma initially diagnosed August 2008. Status post first line therapy with Revlimid and Decadron. Initial treatment discontinued after 6 months due to side effects (vasculitis). Subsequent treatment with Velcade, melphalan and prednisone x 7 cycles finished August 2010. He had a very good partial response. Since then the patient has remained on Aredia, currently dosed at 30 mg every 12 weeks. In regards to myeloma the patient is clinically stable and his paraprotein remains stable. We will monitor the patient's paraprotein closely and will discuss treatment options if/when his disease progresses. He will receive his next Aredia infusion today. 3. 414.01 Coronary artery disease with history of myocardial infarction Acute IN October 2012. S/P coronary artery stent placement. Stable on current medications. Continue current medication per PCP/cardiology. 4. Neuropathy (HCC) - ICD9: 355.9, ICD10: G62.9 Chronic neuropathy, most likely secondary to underlying myeloma plus/minus other systemic condition. Stable on current medications. 5. Squamous cell skin cancer - ICD9: 709.9, ICD10: L98.9 Squamous cell skin cancer involving the right side of nose removed August 2017. Continue follow-up and management per dermatology (Dr. De Guzman). He recently noticed a lesion over his ear, and will be referred back to dermatology for evaluation and treatment as indicated. 6. Chronic pain The patient has a long history of pain, multifactorial in etiology. In part his pain is related to underlying myeloma as well as previous thoracic surgery. The patient was seen by [facility] pain management in December 2020, and is much improved on current medications. He will continue his current medications and follow-up with [facility] pain management (Dr. Alberts) as scheduled. 7. Anemia Since the diagnosis and treatment of lung cancer the patient has had progressive anemia, most likely multifactorial. CBC currently improved. We will continue to monitor, and intervene accordingly if labs worsen. Ja Becker MD CC: Dr. Hernández (Wardrobe Manager in [place]) documented in this encounter [facility] 05-07-2023 History of Present illness Narrative Radiology Service Progress Note PATIENT NAME: Raghavendra Heard DATE OF SERVICE: May 07, 2023 TIME: 9:54 AM PATIENT IDENTITY VERIFICATION COMPLETED USING TWO (2) IDENTIFIERS: Name and Date of confirmed by patient verbally. FALL SCREENING: Has the patient had 2 falls in the last year or 1 fall with injury or currently using an Ambulatory Assistive Device (Walker, Cane, Wheelchair, Crutches, etc.)? No PATIENT GENDER DATA: Male PATIENT RELEVANT IMPLANT DATA REVIEWED: Not Applicable RADIOLOGY DEPARTMENT: CT; Exam(s) Completed: Chest PERIPHERAL IV DATA: Not applicable SIGNED BY: JOSE Acosta) May 07, 2023 9:54 AM documented in this encounter [facility] 05-07-2023 Note HNO ID: [id number] Author: Rhona Martin RT (R) Service: ? Author Type: Technologist Type: Progress Notes Filed: 05/07/2023 9:54 AM Note Text: Radiology Service Progress Note PATIENT NAME: Raghavendra Heard DATE OF SERVICE: May 07, 2023 TIME: 9:54 AM PATIENT IDENTITY VERIFICATION COMPLETED USING TWO (2) IDENTIFIERS: Name and Date of confirmed by patient verbally. FALL SCREENING: Has the patient had 2 falls in the last year or 1 fall with injury or currently using an Ambulatory Assistive Device (Walker, Cane, Wheelchair, Crutches, etc.)? No PATIENT GENDER DATA: Male PATIENT RELEVANT IMPLANT DATA REVIEWED: Not Applicable RADIOLOGY DEPARTMENT: CT; Exam(s) Completed: Chest PERIPHERAL IV DATA: Not applicable SIGNED BY: Rhona Martin, RT(R) May 07, 2023 9:54 AM [facility] 05-04-2023 Miscellaneous Notes Pt requesting to have his Meloxicam refilled. Per pt's record, it appears the pt should have refills remaining. Spoke w/ pharmacist @ [facility] in [place]. Pharmacist confirms that they have a script w/ refills on file. Notes that they are almost done filling it. Pt notified and verbalizes understanding. Rhona Ruiz RN documented in this encounter [facility] 05-04-2023 Note [place] [facility] Subjective Raghavendra Heard is a 78 y.o. year old male patient being seen for 6 mo follow up CAD, hypertension, and sinus bradycardia. Lipid panel has not been drawn yet. Has SOB w/ exertion from his lung disease. Patient Active Problem List Diagnosis Acute myocardial infarction (CMS/HCC) H/O myocardial infarction, greater than 8 weeks Advance directive discussed with patient Arthritis of left knee Atrial septal defect Benign prostatic hyperplasia with urinary frequency Bradycardia Carpal tunnel syndrome Chest wall pain Intercostal neuralgia Coronary artery disease with history of myocardial infarction without history of CABG Coronary arteriosclerosis Dyspnea on exertion Coronary atherosclerosis Generalized anxiety disorder Essential hypertension History of cardiovascular disorder History of colonic polyps History of lung cancer History of myocardial infarction Hyperlipidemia Leg cramps Lesion of radial nerve Low blood pressure Malignant neoplasm of upper lobe of right lung (CMS/HCC) Lung cancer (CMS/HCC) Malignant neoplasm of upper lobe, bronchus or lung Mass of upper lobe of right lung Moderate major depression, single episode (CMS/HCC) Multiple closed fractures of ribs of right side Multiple myeloma (CMS/HCC) Neuropathy Obstructive uropathy Pain Paraseptal emphysema (CMS/HCC) Patent foramen ovale Presence of stent in artery Primary localized osteoarthrosis of multiple sites Primary osteoarthritis of left knee Pulmonary valve disorder Tricuspid valve disorder Pure hypercholesterolemia Right ventricular dilation Sinus bradycardia Acute pain of left knee Adenocarcinoma, lung, left (CMS/HCC) Benign prostatic hyperplasia with lower urinary tract symptoms Generalized osteoarthrosis, 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 He has a hx of CAD and prior IN s/p PATTI to the [facility] in 2012. He also has a hx of multiple myeloma and lung CA, and he has undergone a right upper lobectomy. He underwent chemo/radiation - finished Aug, 2022. He was previously investigated for possible ASD and right sided enlargement but MARK done was negative. He has dyspnea on exertion since his lobectomy. He has a chronic cough from radiation. He has shortness of breath on exertion but no chest pain. No palpitations. Review of Systems Cardiovascular: Positive for dyspnea on exertion. Musculoskeletal: Positive for arthritis and back pain. All other systems reviewed and are negative. Objective Visit Vitals BP 150/78 (BP Location: Left arm, Patient Position: Sitting) Pulse 66 Ht 1.753 m (5' 9 ) Wt 68.9 kg (152 lb) SpO2 96% BMI 22.45 kg/m??? Smoking Status Former BSA 1.83 m??? Physical Exam Constitutional: Appearance: He is well-developed. He is not ill-appearing. HENT: Head: Normocephalic and atraumatic. Nose: Nose normal. Eyes: General: No scleral icterus. Pupils: Pupils are equal, round, and reactive to light. Neck: Thyroid: No thyromegaly. Vascular: No JVD. Cardiovascular: Rate and Rhythm: Normal rate and regular rhythm. Pulses: Radial pulses are 2+ on the right side and 2+ on the left side. Heart sounds: Normal heart sounds. No murmur heard. No friction rub. No gallop. Pulmonary: Effort: Pulmonary effort is normal. No respiratory distress. Breath sounds: Normal breath sounds. No wheezing or rales. Chest: Chest wall: No tenderness. Abdominal: General: Bowel sounds are normal. There is no distension. Palpations: Abdomen is soft. Tenderness: There is no abdominal tenderness. Musculoskeletal: General: No swelling. Cervical back: Neck supple. Skin: General: Skin is warm and dry. Neurological: General: No focal deficit present. Mental Status: He is alert and oriented to person, place, and time. Psychiatric: Mood and Affect: Mood normal. Behavior: Behavior is cooperative. Judgment: Judgment normal. Allergies No Known Allergies Medications Current Outpatient Medications: aspirin 81 mg chewable tablet, Chew 81 mg in the morning., Disp: , Rfl: atorvastatin (Lipitor) 40 mg tablet, atorvastatin 40 mg tablet TAKE 1 TABLET BY MOUTH ONE TIME A DAY, Disp: , Rfl: clonazePAM (KlonoPIN) 1 mg tablet, clonazepam 1 mg tablet, Disp: , Rfl: diazePAM (Valium) 5 mg tablet, Take 5 mg by mouth if needed., Disp: , Rfl: docusate sodium (Colace) 100 mg capsule, Take 200 mg by mouth in the morning and 200 mg in the evening., Dis (more content not included)... [facility] 05-03-2023 Note HNO ID: [id number] Author: Lexus Alberts, DO Service: ? Author Type: Physician Type: Progress Notes Filed: 05/03/2023 1:08 PM Note Text: [facility] Follow Up Visit May SUBJECTIVE: Raghavendra Heard a 78 year old presents to [facility], accompanied by spouse, radha , for a follow up appointment for 1 year follow up visit for Rt sided chest wall pain. AMB ROOMING INTAKE FLOWSHEET DATA The pain is located in the Rt side chest and does not radiate. Distribution: 100% chest Started 4 years ago, was not directly related to trauma, and symptoms have been persistent. Characterized as sharp Pain is constant Currently the pain is a rated at a 6 on a scale of 0-10. Worst pain score is rated at NA on a scale of 0-10. Best pain score is rated at 0 on a scale of 0-10. Aggravated by lifting and movement. Mitigated by medications. The plan from the last visit on 04/24/2022 was: PLAN: Continue Cymbalta 60 mg twice daily, refill given. Continue Gabapentin and [place] per Dr. Becker. RTC in 1 year for F/U his last visit the patient reported moderate improvement in pain and moderate improvement in function. Current pain medication: 1.) duloxetine,meloxicam,hydrocodone Last Dose: 8 am today, Side effects No Current Anticoagulant Therapy: No PAST MEDICAL HISTORY Diagnosis Date Anxiety Enlarged prostate HTN (hypertension) Hypercholesteremia Multiple myeloma, without mention of having achieved remission PAST SURGICAL HISTORY Procedure Laterality Date REMOVAL OF LUNG,LOBECTOMY Right 04/24/2019 right upper lobe Current Outpatient Medications Medication Sig DULoxetine (CYMBALTA) 60 mg capsule Take 1 capsule by mouth two times a day. HYDROcodone-acetaminophen (NORCO) 5-325 mg per tablet Take 2 tablets by mouth every 6 hours as needed. predniSONE (DELTASONE) 10 mg tablet Take 1 tablet by mouth once daily. Take 4 daily x 5 days, then 2 daily x 5 days, then 1 daily or as directed. levoFLOXacin (LEVAQUIN) 500 mg tablet Take 1 tablet by mouth once daily. meloxicam (MOBIC) 15 mg tablet Take 1 tablet by mouth once daily. senna (SENNA LAXATIVE) 8.6 mg tab Take 2 tablets by mouth twice daily. clonazePAM (KLONOPIN) 1 mg tablet Take 1 tablet by mouth three times daily as needed for up to 30 days. docusate sodium (COLACE) 100 mg capsule TAKE 2 CAPSULES BY MOUTH TWICE A DAY gabapentin (NEURONTIN) 300 mg capsule Take 2 capsules by mouth three times daily for 30 days. naloxone 4 mg/actuation nasal spray (NARCAN) Use 1 spray in one nostril as needed for overdose. May repeat every 2 to 3 min in alternating nostrils until medical assistance is available finasteride (PROSCAR) 5 mg tablet triamterene-hydroCHLOROthiazide (MAXZIDE-25) 37.5-25 mg per tablet TAKE 1 TABLET BY MOUTH EVERY DAY IN THE MORNING ondansetron (ZOFRAN) 8 mg tablet Take 1 tablet by mouth every 8 hours as needed for nausea/vomiting. prochlorperazine (COMPAZINE) 10 mg tablet Take 1 tablet by mouth every 6 hours as needed. metoprolol succinate ER (TOPROL XL) 25 mg 24 hr tablet Take 25 mg by mouth once daily. mv-mn/iron/folic acid/herb 190 (VITAMIN D3 COMPLETE ORAL) Take by mouth. ZINC ORAL Take by mouth. tamsulosin ER (FLOMAX) 0.4 mg cap baclofen (LIORESAL) 10 mg tablet Take 10 mg by mouth three times daily. (Patient not taking: Reported on 04/02/2023) nitroglycerin sublingual (NITROQUICK) 0.4 mg SL tablet Dissolve 0.4 mg under the tongue every 5 minutes as needed. Aspirin 81 mg CpDR Take 81 mg by mouth once daily. atorvastatin 40 mg tablet Take 40 mg by mouth once daily. DOCOSAHEXANOIC ACID/EPA (FISH OIL ORAL) Take by mouth. No current facility-administered medications for this visit. ALLERGIES No Known Allergies Review of Symptoms: GENERAL:No weight loss, malaise or fevers., SEE HPI GASTROINTESTINAL: Negative for abdominal discomfort, blood in stools or black stools or change in bowel habits GENITOURINARY: No history of dysuria, frequency or incontinence MUSCULOSKELETAL: see hpi NEUROLOGIC:Negative for focal numbness or weakness, headaches and dizziness or syncope. PREVIOUS TREATMENTS LASTING SIX WEEKS IN THE LAST SIX MONTHS Active conservative therapy lasting 6 weeks in the last six months (see below) 1. Physical therapy: No 2. Home exercise program after PT: No 3. Occupational therapy: No 4. A physician supervised home exercise program (HEP): No 5. Sterile Instrument Technician: No Passive conservative therapy lasting 6 weeks in the last six months (see below) 1. Medical devises: No 2. Acupuncture: No 3. Tens unit: No 4. Prescription pain medication: Yes 5. NSAIDS: No Do you fell safe at home? Yes Risk assessment at risk due to fall: NONE Lizeth Lau MA May 03, 2023 10:47 AM The subjective information: including chief complaint, past medical history and review of systems, was explored in detail with the pat (more content not included)... [facility] 04-02-2023 History of Present illness Narrative PATIENT NAME: Raghavendra Heard DATE: 04/02/2023 PRIMARY CARE PHYSICIAN: Dr. Prerna Grissom II OTHER PHYSICIANS: Dr. Toledo (Cardiology [facility]), Dr. Zhang, Dr. Hernández (Wardrobe Manager in [place]), Dr. Stinson (Thoracic Surgery in [place]), Dr. Alberts Portions of this encounter note have been copied from the note from 02/19/2023 and has been updated where appropriate, and reflect my current medical decision making from today. CC: This is a 78 year old male with a history of recurrent lung cancer and multiple myeloma, seen for for scheduled follow-up. INTERIM HISTORY: Raghavendra Heard returns for scheduled follow-up. He continues to have persistent shortness of breath both at rest and exertion. He has a cough and wheezing. He denies fevers, chills and signs/symptoms of infection. He is off of the steroids and antibiotics that were prescribed at his last visit. He complains of having no energy. He is scheduled to see pulmonology on May 02. Since his last visit he did have a nice family reunion in [place]. MEDICATIONS: DULoxetine (CYMBALTA) 60 mg capsule Take 1 capsule by mouth twice daily. codeine-guaiFENesin (ROBITUSSIN AC) 10-100 mg/5 mL syrup Take 10 mL by mouth every 4 hours as needed for up to 30 days. meloxicam (MOBIC) 15 mg tablet Take 1 tablet by mouth once daily. senna (SENNA LAXATIVE) 8.6 mg tab Take 2 tablets by mouth twice daily. HYDROcodone-acetaminophen (NORCO) 5-325 mg per tablet Take 2 tablets by mouth every 6 hours as needed. clonazePAM (KLONOPIN) 1 mg tablet Take 1 tablet by mouth three times daily as needed for up to 30 days. predniSONE (DELTASONE) 10 mg tablet Take 1 tablet by mouth once daily. Take 4 daily x 5 days, then 2 daily x 5 days, then 1 daily or as directed. docusate sodium (COLACE) 100 mg capsule TAKE 2 CAPSULES BY MOUTH TWICE A DAY gabapentin (NEURONTIN) 300 mg capsule Take 2 capsules by mouth three times daily for 30 days. naloxone 4 mg/actuation nasal spray (NARCAN) Use 1 spray in one nostril as needed for overdose. May repeat every 2 to 3 min in alternating nostrils until medical assistance is available finasteride (PROSCAR) 5 mg tablet triamterene-hydroCHLOROthiazide (MAXZIDE-25) 37.5-25 mg per tablet TAKE 1 TABLET BY MOUTH EVERY DAY IN THE MORNING ondansetron (ZOFRAN) 8 mg tablet Take 1 tablet by mouth every 8 hours as needed for nausea/vomiting. prochlorperazine (COMPAZINE) 10 mg tablet Take 1 tablet by mouth every 6 hours as needed. metoprolol succinate ER (TOPROL XL) 25 mg 24 hr tablet Take 25 mg by mouth once daily. mv-mn/iron/folic acid/herb 190 (VITAMIN D3 COMPLETE ORAL) Take by mouth. ZINC ORAL Take by mouth. tamsulosin ER (FLOMAX) 0.4 mg cap baclofen (LIORESAL) 10 mg tablet Take 10 mg by mouth three times daily. nitroglycerin sublingual (NITROQUICK) 0.4 mg SL tablet Dissolve 0.4 mg under the tongue every 5 minutes as needed. Aspirin 81 mg CpDR Take 81 mg by mouth once daily. atorvastatin 40 mg tablet Take 40 mg by mouth once daily. DOCOSAHEXANOIC ACID/EPA (FISH OIL ORAL) Take by mouth. ALLERGIES: Patient has no known allergies. PAST MEDICAL HISTORY: PAST MEDICAL HISTORY Diagnosis Date Anxiety Enlarged prostate HTN (hypertension) Hypercholesteremia Multiple myeloma, without mention of having achieved remission PAST SURGICAL HISTORY: PAST SURGICAL HISTORY Procedure Laterality Date REMOVAL OF LUNG,LOBECTOMY Right 04/24/2019 right upper lobe REVIEW OF SYSTEMS: As above. PHYSICAL EXAM: Vitals: BP 108/63 Pulse 70 Temp 36.1 C (97 F) (Temporal) Resp 16 Ht 170.6 cm (5' 7.17 ) Wt 70 kg (154 lb 6.4 oz) SpO2 93% BMI 24.06 kg/m ECOG 1 Exam limited to gross visualization where appropriate due to COVID-19. Gen.: This is an age-appropriate patient in no acute distress. Head: Appears atraumatic with no visible lesions. Eyes: Pupils equally round and reactive to light, extraocular muscles are intact. Neck: Supple. Mouth: Masked. Respiratory: Audible wheezing and short of breath. Neurologic: Nonfocal to gross visualization. Alert and oriented 3. Psychiatric: No evidence of inappropriate anxiety or depression. Skin: Visible areas of skin without rash, lesions, wounds or petechiae. PATHOLOGY: 06/14/2022 Lymph node, 10 R, EBUS transbronchial biopsy Adenocarcinoma. Immunohistochemistry: PD-L1 expression less than 1% ALK rearrangement 0% BRAF - No variant detected [Reference Sequence: ([id number])]. EGFR - No variant detected [Reference Sequence: ([id number])]. HER2 (ERBB2) - No variant detected [Reference Sequence: ([id number])]. KRAS - No variant detected [Reference Sequence: ([id number])]. MET - No variant detected [Reference Sequence: ([id number])]. RADIOLOGIC STUDIES: 02/14/2023 CT chest IMPRESSION: 1. Right perihilar consolidative opacities, increased since 09/26/22, most likely a combination of postradiation change, other infectious/infiltrative etiologies and neoplasm. 2. New patchy opacities and reticulonodular opacities in the bilateral lung naidu most likely infectious/inflammatory in etiology. Superimposed neoplasm cannot be excluded. Consider continued interval follow-up. 12/16/2022 MRI brain ([facility] [place]) Mild atrophy and chronic microvascular disease. No acute intracranial findings. 11/15/2022 Chest x-ray IMPRESSION: 1. Diffuse interstitial opacities throughout both lungs, suggestive of edema. 2. More patchy regions of airspace opacification within the right mid and lower lung, which could be infectious/inflammatory. If warranted, consider chest CT for further assessment. 3. Small right pleural effusion. 10/02/2022 CT Brain ([facility] [place]) Unremarkable exam 09/26/2022 CT chest IMPRESSION: 1. New patchy right perihilar groundglass opacities in the right upper lung field most likely related to postradiation change. 2. Residual adjacent 0.7 x 0.7 cm right perihilar nodular density, decreased in size since 03/30/22. 3. New 2 mm left lower lobe nodular opacity most likely infectious/inflammatory in etiology. Consider continued annual follow-up. 4. Other mild reticulonodular opacities and groundglass opacities in right lower lobe and 2-3 mm nodular opacities, stable. 5. 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 6. Mild emphysematous changes of the lungs. 7. 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 04/28/2022 PET scan IMPRESSION: Head and Neck: * No evidence of FDG avid neoplastic process Chest: * 1.1 cm worsening right perihilar nodule concerning for neoplasm/recurrence. * No evidence of FDG avid thoracic lymphadenopathy, as described. Abdomen and pelvis: * No evidence of FDG avid neoplastic process Musculoskeletal: * No neoplastic hypermetabolic lesions 03/30/2022 CT chest IMPRESSION: 1. New 1.1 cm right lower lobe perihilar nodular opacity adjacent to surgical clips worrisome for neoplasm. Consider further evaluation via PET scan and/or other workup. 2. Mild reticulonodular opacities and groundglass opacities in right lower lobe and other 2-3 mm nodular opacities, stable since 08/30/21. 3. 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 4. Mild emphysematous changes of the lungs. 5. 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 10/11/2021 Skeletal survey ([facility]) No new lytic changes to suggest progression of myeloma 09/29/2021 CT chest IMPRESSION: 1. Mild reticulonodular opacities and groundglass opacities in right lower lobe slightly increased since 03/25/21. 2. Other 2-3 mm nodular opacities, stable. Consider continued interval follow-up. 3. 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 4. Mild emphysematous changes of the lungs. 5. 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 12/27/2020 PET SCAN IMPRESSION: Head and Neck: * No hypermetabolic foci Chest: * New right hilar uptake compared to the 08/21/2018 preoperative PET/CT is favored to be secondary to an inflammatory process or postoperative changes. Recommend 3 month follow-up PET/CT and/or contrast-enhanced chest CT for confirmation. * Areas of nodular pleural thickening along the lateral right middle lobe and right major fissure are unchanged and without FDG avidity, likely postsurgical changes. Abdomen and pelvis: * No evidence of FDG avid neoplastic process Musculoskeletal: * No neoplastic hypermetabolic lesions 02/20/2019 PET SCAN ([place]) Solid spiculated 2.0 cm nodule in the right upper lobe posterior aspect abutting the oblique fissure. SUV 5.5. No lymphadenopathy. No evidence of metastatic disease. LABORATORY DATA: Hemoglobin (g/dL) Date Value 04/02/2023 9.7 07/07/2021 13.0 Hematocrit (%) Date Value 04/02/2023 30.0 07/07/2021 38.4 WBC (k/uL) Date Value 04/02/2023 5.24 07/07/2021 6.28 Platelet Count (k/uL) Date Value 04/02/2023 170 07/07/2021 262 ASSESSMENT/PLAN: 1. Malignant neoplasm of upper lobe of right lung (HCC) - ICD9: 162.3, ICD10: C34.11 (primary diagnosis) Stage IB (pT2a, N0, M0) adenocarcinoma of the right lung diagnosed April 2019. Status post right upper lobectomy 04/24/2019. Final pathology indicated invasive adenocarcinoma, acinar predominant type. Tumor size 3.1 cm, all margins negative. 9 resected lymph nodes negative. Adjuvant chemotherapy and radiation therapy not indicated, and routine postop surveillance recommended. Follow-up chest CT 03/30/2022 revealed a new 1.1 cm right lower lobe perihilar nodular opacity adjacent to surgical clips worrisome for neoplasm. Repeat PET scan 04/28/2022 revealed uptake in the right perihilar lymph node concerning for neoplasm. On 05/16/2022 the patient underwent a bronchoscopy with EBUS (Dr. Balwinder Roberto, [facility] in [place]). Bronchoscopy revealed no endobronchial lesions. Transbronchial biopsy of a right hilar lymph node (10 R) was obtained, but pathology revealed only atypical epithelial cells and no evidence of malignancy. Repeat EBUS was performed a [facility] on 06/14/2022 which confirmed adenocarcinoma. PD-L1 <1% and lung hot spot negative for other targetable mutations. Subsequently it was elected to treat with definitive chemoradiation consisting of low-dose weekly Taxol/carboplatin concurrent with involved field radiation. Treatment started 07/04/2022. The patient completed his fifth cycle of weekly chemotherapy on 08/01/2022, and completed his planned radiation on 08/14/2022. Other than myelosuppression he tolerated treatment well. Follow-up CT chest 09/26/2022 showed response. He subsequently started maintenance durvalumab on 10/17/2022, with plans to give 1500 mg IV every 4 weeks x 1 year as tolerated. On follow-up 11/15/2022 the patient was not doing well, and had clinical and radiographic evidence of pneumonitis. It was elected to discontinue durvalumab (the patient received only 1 dose on 10/17/2022). He was started on steroids with prednisone and clinically improved. The patient's prednisone was subsequently weaned and discontinued. However, currently he complains of increasing shortness of breath. Most recent chest CT 02/14/2023 revealed right perihilar consolidative changes plus new patchy opacities in the bilateral lung naidu, suggestive of infection/infiltration versus neoplasm. He also has an increasing productive cough suggesting possible bronchitis. At this time we will give another course of steroids with prednisone 40 mg daily x5 days followed by 20 mg daily x5 days followed at 10 mg daily. We will also give another course of antibiotics with Levaquin x7 days. He'll return in 6 weeks for follow-up and labs. Due to on ongoing pulmonary symptoms we will repeat his chest CT before his next follow up. Multiple myeloma IgG lambda multiple myeloma initially diagnosed August 2008. Status post first line therapy with Revlimid and Decadron. Initial treatment discontinued after 6 months due to side effects (vasculitis). Subsequent treatment with Velcade, melphalan and prednisone x 7 cycles finished August 2010. He had a very good partial response. Since then the patient has remained on Aredia, currently dosed at 30 mg every 12 weeks. In regards to myeloma the patient is clinically stable and his paraprotein remains stable. We will monitor the patient's paraprotein closely and will discuss treatment options if/when his disease progresses. He will receive Aredia at his next visit. 3. 414.01 Coronary artery disease with history of myocardial infarction Acute IN October 2012. S/P coronary artery stent placement. Stable on current medications. Continue current medication per PCP/cardiology. 4. Neuropathy (HCC) - ICD9: 355.9, ICD10: G62.9 Chronic neuropathy, most likely secondary to underlying myeloma plus/minus other systemic condition. Stable on current medications (Neurontin 600 mg TID). 5. Squamous cell skin cancer - ICD9: 709.9, ICD10: L98.9 Squamous cell skin cancer involving the right side of nose removed August 2017. Continue follow-up and management per dermatology (Dr. De Guzman). He recently noticed a lesion over his ear, and will be referred back to dermatology for evaluation and treatment as indicated. 6. Chronic pain The patient has a long history of pain, multifactorial in etiology. In part his pain is related to underlying myeloma as well as previous thoracic surgery. The patient was seen by [facility] pain management in December 2020, and is much improved on current medications. He will continue his current medications and follow-up with [facility] pain management (Dr. Alberts) as scheduled. 7. Anemia Since the diagnosis and treatment of lung cancer the patient has had progressive anemia, most likely multifactorial. Amber Rodriguez APRN.CNP I spent a total of 30 minutes on the date of the service which included preparing to see the patient, [id number] patient care, completing clinical documentation, obtaining and/or reviewing separately obtained history, performing a medically appropriate examination, counseling and educating the patient/family/caregiver, ordering medications, tests, or procedures, independently interpreting results (not separately reported), and communicating results to the patient/family/caregiver. documented in this encounter [facility] 03-19-2023 Miscellaneous Notes Call spoke with patient, made aware that script has been sent to pharmacy. The following approved medication requests have been transmitted electronically. Requested Prescriptions Signed Prescriptions Disp Refills DULoxetine (CYMBALTA) 60 mg capsule 60 capsule 0 Sig: Take 1 capsule by mouth twice daily. Authorizing Provider: ELIZABETH MANN APRN.CNP Patient calling again for a second request for medication. He is leaving for vacation this week and needs the medication before he leaves. Please review and advise. Requestor:Patient Patient is identified by name and birthdate: Yes Patient reminded to check with pharmacy in 24-48 hours: Yes Prescriber Verified: Yes Pharmacy benefits have been verified: No Pharmacy updated in Epic: Yes Is medication controlled substance: No Medication instructions verified (dose, dosing instructions [sig], dispense amount [30 or 90 day supply], refills): Yes -If medication is not on the MAR please get additional information Are any other medications due for a refill in the next 3 months: No Requested Prescriptions Pending Prescriptions Disp Refills DULoxetine (CYMBALTA) 60 mg capsule 180 capsule 3 Sig: Take 1 capsule by mouth twice daily. documented in this encounter [facility] 02-20-2023 Miscellaneous Notes Transfuse of 2 units packed RBC's at [facility] on 02-21. Will go today for port draw. Orders and cbc were faxed to [facility] infusion center Clerical: Pt calls back requesting transfusion be scheduled @ [facility]. Rhona Ruiz RN Pt notified and agrees to transfusion. Clerical: Please arrange for 2 units RBCs @ [facility]. Transfusion orders pending Dr's signature. Pt is aware that you will be calling him w/ appointment. Would prefer it be done prior to Sunday. Thanks! Rhona Ruiz RN Called patient and got answering machine. Mailbox is full and is not accepting messages at this time. Heidi Heck RN ----- Message from Ja Becker MD sent at 02/19/2023 4:55 PM EDT ----- Please inform the patient that his hemoglobin has dropped significantly, and this may be contributing to his shortness of breath. If in agreement I would recommend PRBC x2 before his return visit. Can arrange at [facility] or his local hospital. documented in this encounter [facility] 02-19-2023 Nurse Note Clinical questionnaires incomplete due to Nurse was Interrupted by provider during rooming process documented in this encounter [facility] 02-19-2023 History of Present illness Narrative PATIENT NAME: Raghavendra Heard DATE: 02/19/2023 PRIMARY CARE PHYSICIAN: Dr. Prerna Grissom II OTHER PHYSICIANS: Dr. Toledo (Cardiology [facility]), Dr. Zhang, Dr. Hernández (Wardrobe Manager in [place]), Dr. Stinson (Thoracic Surgery in [place]), Dr. Alberts Portions of this encounter note have been copied from the note from 01/01/2023 and has been updated where appropriate, and reflect my current medical decision making from today. CC: This is a 78 year old male with a history of recurrent lung cancer and multiple myeloma, seen for for scheduled follow-up. INTERIM HISTORY: Since the patient's last visit here he has had fairly persistent severe dyspnea on exertion. 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 He does complain of increasing cough, now productive of purulent sputum. No fevers or other signs of infection. His chronic pain is controlled, and he has been able to cut back on his narcotics. No signs of bleeding or bruising. MEDICATIONS: HYDROcodone-acetaminophen (NORCO) 5-325 mg per tablet Take 2 tablets by mouth every 6 hours as needed. docusate sodium (COLACE) 100 mg capsule TAKE 2 CAPSULES BY MOUTH TWICE A DAY clonazePAM (KLONOPIN) 1 mg tablet Take 1 tablet by mouth three times daily as needed for up to 30 days. gabapentin (NEURONTIN) 300 mg capsule Take 2 capsules by mouth three times daily for 30 days. naloxone 4 mg/actuation nasal spray (NARCAN) Use 1 spray in one nostril as needed for overdose. May repeat every 2 to 3 min in alternating nostrils until medical assistance is available SENNA LAXATIVE 8.6 mg tab TAKE 2 TABLETS BY MOUTH TWICE A DAY famciclovir (FAMVIR) 250 mg tablet TAKE 1 TABLET BY MOUTH TWICE A DAY finasteride (PROSCAR) 5 mg tablet meloxicam (MOBIC) 15 mg tablet Take 1 tablet by mouth once daily. triamterene-hydroCHLOROthiazide (MAXZIDE-25) 37.5-25 mg per tablet TAKE 1 TABLET BY MOUTH EVERY DAY IN THE MORNING ondansetron (ZOFRAN) 8 mg tablet Take 1 tablet by mouth every 8 hours as needed for nausea/vomiting. prochlorperazine (COMPAZINE) 10 mg tablet Take 1 tablet by mouth every 6 hours as needed. metoprolol succinate ER (TOPROL XL) 25 mg 24 hr tablet Take 25 mg by mouth once daily. mv-mn/iron/folic acid/herb 190 (VITAMIN D3 COMPLETE ORAL) Take by mouth. DULoxetine (CYMBALTA) 60 mg capsule Take 1 capsule by mouth twice daily. ZINC ORAL Take by mouth. tamsulosin ER (FLOMAX) 0.4 mg cap baclofen (LIORESAL) 10 mg tablet Take 10 mg by mouth three times daily. nitroglycerin sublingual (NITROQUICK) 0.4 mg SL tablet Dissolve 0.4 mg under the tongue every 5 minutes as needed. Aspirin 81 mg CpDR Take 81 mg by mouth once daily. atorvastatin 40 mg tablet Take 40 mg by mouth once daily. DOCOSAHEXANOIC ACID/EPA (FISH OIL ORAL) Take by mouth. ALLERGIES: Patient has no known allergies. PAST MEDICAL HISTORY: PAST MEDICAL HISTORY Diagnosis Date Anxiety Enlarged prostate HTN (hypertension) Hypercholesteremia Multiple myeloma, without mention of having achieved remission PAST SURGICAL HISTORY: PAST SURGICAL HISTORY Procedure Laterality Date REMOVAL OF LUNG,LOBECTOMY Right 04/24/2019 right upper lobe REVIEW OF SYSTEMS: As above. PHYSICAL EXAM: Vitals: BP 129/65 Pulse 71 Temp 36.3 C (97.4 F) (Temporal) Resp 16 Ht 170.6 cm (5' 7.17 ) Wt 70 kg (154 lb 6.4 oz) SpO2 92% BMI 24.06 kg/m ECOG 1 Exam limited to gross visualization where appropriate due to COVID-19. Gen.: This is an age-appropriate patient in no acute distress. Head: Appears atraumatic with no visible lesions. Eyes: Pupils equally round and reactive to light, extraocular muscles are intact. Neck: Supple. Mouth: Masked. Respiratory: Appears to be respiring comfortably. Neurologic: Nonfocal to gross visualization. Alert and oriented 3. Psychiatric: No evidence of inappropriate anxiety or depression. Skin: Visible areas of skin without rash, lesions, wounds or petechiae. PATHOLOGY: 06/14/2022 Lymph node, 10 R, EBUS transbronchial biopsy Adenocarcinoma. Immunohistochemistry: PD-L1 expression less than 1% ALK rearrangement 0% BRAF - No variant detected [Reference Sequence: ([id number])]. EGFR - No variant detected [Reference Sequence: ([id number])]. HER2 (ERBB2) - No variant detected [Reference Sequence: ([id number])]. KRAS - No variant detected [Reference Sequence: ([id number])]. MET - No variant detected [Reference Sequence: ([id number])]. RADIOLOGIC STUDIES: 02/14/2023 CT chest IMPRESSION: 1. Right perihilar consolidative opacities, increased since 09/26/22, most likely a combination of postradiation change, other infectious/infiltrative etiologies and neoplasm. 2. New patchy opacities and reticulonodular opacities in the bilateral lung naidu most likely infectious/inflammatory in etiology. Superimposed neoplasm cannot be excluded. Consider continued interval follow-up. 12/16/2022 MRI brain ([facility]) Mild atrophy and chronic microvascular disease. No acute intracranial findings. 11/15/2022 Chest x-ray IMPRESSION: 1. Diffuse interstitial opacities throughout both lungs, suggestive of edema. 2. More patchy regions of airspace opacification within the right mid and lower lung, which could be infectious/inflammatory. If warranted, consider chest CT for further assessment. 3. Small right pleural effusion. 10/02/2022 CT Brain ([facility]) Unremarkable exam 09/26/2022 CT chest IMPRESSION: 1. New patchy right perihilar groundglass opacities in the right upper lung field most likely related to postradiation change. 2. Residual adjacent 0.7 x 0.7 cm right perihilar nodular density, decreased in size since 03/30/22. 3. New 2 mm left lower lobe nodular opacity most likely infectious/inflammatory in etiology. Consider continued annual follow-up. 4. Other mild reticulonodular opacities and groundglass opacities in right lower lobe and 2-3 mm nodular opacities, stable. 5. 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 6. Mild emphysematous changes of the lungs. 7. 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 04/28/2022 PET scan IMPRESSION: Head and Neck: * No evidence of FDG avid neoplastic process Chest: * 1.1 cm worsening right perihilar nodule concerning for neoplasm/recurrence. * No evidence of FDG avid thoracic lymphadenopathy, as described. Abdomen and pelvis: * No evidence of FDG avid neoplastic process Musculoskeletal: * No neoplastic hypermetabolic lesions 03/30/2022 CT chest IMPRESSION: 1. New 1.1 cm right lower lobe perihilar nodular opacity adjacent to surgical clips worrisome for neoplasm. Consider further evaluation via PET scan and/or other workup. 2. Mild reticulonodular opacities and groundglass opacities in right lower lobe and other 2-3 mm nodular opacities, stable since 08/30/21. 3. 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 4. Mild emphysematous changes of the lungs. 5. 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 10/11/2021 Skeletal survey ([facility]) No new lytic changes to suggest progression of myeloma 09/29/2021 CT chest IMPRESSION: 1. Mild reticulonodular opacities and groundglass opacities in right lower lobe slightly increased since 03/25/21. 2. Other 2-3 mm nodular opacities, stable. Consider continued interval follow-up. 3. 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 4. Mild emphysematous changes of the lungs. 5. 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 12/27/2020 PET SCAN IMPRESSION: Head and Neck: * No hypermetabolic foci Chest: * New right hilar uptake compared to the 08/21/2018 preoperative PET/CT is favored to be secondary to an inflammatory process or postoperative changes. Recommend 3 month follow-up PET/CT and/or contrast-enhanced chest CT for confirmation. * Areas of nodular pleural thickening along the lateral right middle lobe and right major fissure are unchanged and without FDG avidity, likely postsurgical changes. Abdomen and pelvis: * No evidence of FDG avid neoplastic process Musculoskeletal: * No neoplastic hypermetabolic lesions 02/20/2019 PET SCAN ([facility]) Solid spiculated 2.0 cm nodule in the right upper lobe posterior aspect abutting the oblique fissure. SUV 5.5. No lymphadenopathy. No evidence of metastatic disease. LABORATORY DATA: Hemoglobin (g/dL) Date Value 02/19/2023 8.1 07/07/2021 13.0 Hematocrit (%) Date Value 02/19/2023 25.2 07/07/2021 38.4 WBC (k/uL) Date Value 02/19/2023 6.52 07/07/2021 6.28 Platelet Count (k/uL) Date Value 02/19/2023 243 07/07/2021 262 ASSESSMENT/PLAN: 1. Malignant neoplasm of upper lobe of right lung (HCC) - ICD9: 162.3, ICD10: C34.11 (primary diagnosis) Stage IB (pT2a, N0, M0) adenocarcinoma of the right lung diagnosed April 2019. Status post right upper lobectomy 04/24/2019. Final pathology indicated invasive adenocarcinoma, acinar predominant type. Tumor size 3.1 cm, all margins negative. 9 resected lymph nodes negative. Adjuvant chemotherapy and radiation therapy not indicated, and routine postop surveillance recommended. Follow-up chest CT 03/30/2022 revealed a new 1.1 cm right lower lobe perihilar nodular opacity adjacent to surgical clips worrisome for neoplasm. Repeat PET scan 04/28/2022 revealed uptake in the right perihilar lymph node concerning for neoplasm. On 05/16/2022 the patient [facility] [place] Bronchoscopy revealed no endobronchial lesions. Transbronchial biopsy of a right hilar lymph node (10 R) was obtained, but pathology revealed only atypical epithelial cells and no evidence of malignancy. Repeat EBUS was performed a [facility] on 06/14/2022 which confirmed adenocarcinoma. PD-L1 <1% and lung hot spot negative for other targetable mutations. Subsequently it was elected to treat with definitive chemoradiation consisting of low-dose weekly Taxol/carboplatin concurrent with involved field radiation. Treatment started 07/04/2022. The patient completed his fifth cycle of weekly chemotherapy on 08/01/2022, and completed his planned radiation on 08/14/2022. Other than myelosuppression he tolerated treatment well. Follow-up CT chest 09/26/2022 showed response. He subsequently started maintenance durvalumab on 10/17/2022, with plans to give 1500 mg IV every 4 weeks x 1 year as tolerated. On follow-up 11/15/2022 the patient was not doing well, and had clinical and radiographic evidence of pneumonitis. It was elected to discontinue durvalumab (the patient received only 1 dose on 10/17/2022). He was started on steroids with prednisone and clinically improved. The patient's prednisone was subsequently weaned and discontinued. However, currently he complains of increasing shortness of breath. Most recent chest CT 02/14/2023 revealed right perihilar consolidative changes plus new patchy opacities in the bilateral lung naidu, suggestive of infection/infiltration versus neoplasm. He also has an increasing productive cough suggesting possible bronchitis. At this time we will resume steroids with prednisone 40 mg daily x5 days followed by 20 mg daily x5 days followed at 10 mg daily. We will also start antibiotics with Levaquin x7 days. Return in 6 weeks for follow-up and labs. Based on ongoing pulmonary symptoms we will repeat his chest CT at 2 to 3 months. Multiple myeloma IgG lambda multiple myeloma initially diagnosed August 2008. Status post first line therapy with Revlimid and Decadron. Initial treatment discontinued after 6 months due to side effects (vasculitis). Subsequent treatment with Velcade, melphalan and prednisone x 7 cycles finished August 2010. He had a very good partial response. Since then the patient has remained on Aredia, currently dosed at 30 mg every 12 weeks. In regards to myeloma the patient is clinically stable and his paraprotein remains stable. We will monitor the patient's paraprotein closely and will discuss treatment options if/when his disease progresses. He will receive Aredia today as scheduled. 3 414.01 Coronary artery disease with history of myocardial infarction Acute IN October 2012. S/P coronary artery stent placement. Stable on current medications. Continue current medication per PCP/cardiology. 4. Neuropathy (HCC) - ICD9: 355.9, ICD10: G62.9 Chronic neuropathy, most likely secondary to underlying myeloma plus/minus other systemic condition. Stable on current medications (Neurontin 600 mg TID). 5. Squamous cell skin cancer - ICD9: 709.9, ICD10: L98.9 Squamous cell skin cancer involving the right side of nose removed August 2017. Continue follow-up and management per dermatology (Dr. De Guzman). He recently noticed a lesion over his ear, and will be referred back to dermatology for evaluation and treatment as indicated. 6. Chronic pain The patient has a long history of pain, multifactorial in etiology. In part his pain is related to underlying myeloma as well as previous thoracic surgery. The patient was seen by [facility] pain management in December 2020, and is much improved on current medications. He will continue his current medications and follow-up with [facility] pain management (Dr. Alberts) as scheduled. 7. Anemia Since the diagnosis and treatment of lung cancer the patient has had progressive anemia, most likely multifactorial. Due to his increasing shortness of breath and worsening hemoglobin we will arrange for PRBC x2 this week. Ja Becker MD documented in this encounter [facility] 02-14-2023 History of Present illness Narrative Radiology Service Progress Note PATIENT NAME: Raghavendra Heard DATE OF SERVICE: February 14, 2023 TIME: 9:50 AM PATIENT IDENTITY VERIFICATION COMPLETED USING TWO (2) IDENTIFIERS: Name and Date of confirmed by patient verbally. FALL SCREENING: Has the patient had 2 falls in the last year or 1 fall with injury or currently using an Ambulatory Assistive Device (Walker, Cane, Wheelchair, Crutches, etc.)? No PATIENT GENDER DATA: Male PATIENT RELEVANT IMPLANT DATA REVIEWED: Not Applicable RADIOLOGY DEPARTMENT: CT; Exam(s) Completed: Chest PERIPHERAL IV DATA: Not applicable SIGNED BY: RT Karla(R) February 14, 2023 9:50 AM documented in this encounter [facility] 01-01-2023 Nurse Note Clinical questionnaires incomplete due to Nurse was Interrupted by provider during rooming process. Unable to go over patient's medication due to being interrupted. Debbie Downey Clinical questionnaires incomplete due to Patient declined to complete or answer questions with nurse documented in this encounter [facility] 01-01-2023 History of Present illness Narrative PATIENT NAME: Raghavendra Heard DATE: 01/01/2023 PRIMARY CARE PHYSICIAN: Dr. Prerna Grissom II OTHER PHYSICIANS: Dr. Toledo (Cardiology [facility]), Dr. Zhang, Dr. Hernández (Wardrobe Manager in [place]), Dr. Stinson (Thoracic Surgery in [place]), Dr. Alberts Portions of this encounter note have been copied from the note from 12/04/2022 and has been updated where appropriate, and reflect my current medical decision making from today. CC: This is a 77 year old male with recurrent lung cancer, seen for for scheduled follow-up. INTERIM HISTORY: Since the patient's last visit here he has been on a tapering dose of prednisone, and remains clinically stable. He has chronic shortness of breath which is unchanged. No other pulmonary symptoms. On his tapering dose of prednisone his right lateral chest pain has worsened somewhat. He currently takes [place] and multiple other medications with relief. No headaches or neurological symptoms. His ataxia and profound weakness has improved. Recent brain MRI was negative for metastases. MEDICATIONS: HYDROcodone-acetaminophen (NORCO) 5-325 mg per tablet Take 2 tablets by mouth every 6 hours as needed. docusate sodium (COLACE) 100 mg capsule TAKE 2 CAPSULES BY MOUTH TWICE A DAY clonazePAM (KLONOPIN) 1 mg tablet Take 1 tablet by mouth three times daily as needed for up to 30 days. codeine-guaiFENesin (ROBITUSSIN AC) 10-100 mg/5 mL syrup Take 10 mL by mouth every 4 hours as needed for up to 30 days. predniSONE (DELTASONE) 20 mg tablet Take 2 tablets by mouth once daily. gabapentin (NEURONTIN) 300 mg capsule Take 2 capsules by mouth three times daily for 30 days. naloxone 4 mg/actuation nasal spray (NARCAN) Use 1 spray in one nostril as needed for overdose. May repeat every 2 to 3 min in alternating nostrils until medical assistance is available SENNA LAXATIVE 8.6 mg tab TAKE 2 TABLETS BY MOUTH TWICE A DAY famciclovir (FAMVIR) 250 mg tablet TAKE 1 TABLET BY MOUTH TWICE A DAY finasteride (PROSCAR) 5 mg tablet meloxicam (MOBIC) 15 mg tablet Take 1 tablet by mouth once daily. triamterene-hydroCHLOROthiazide (MAXZIDE-25) 37.5-25 mg per tablet TAKE 1 TABLET BY MOUTH EVERY DAY IN THE MORNING ondansetron (ZOFRAN) 8 mg tablet Take 1 tablet by mouth every 8 hours as needed for nausea/vomiting. prochlorperazine (COMPAZINE) 10 mg tablet Take 1 tablet by mouth every 6 hours as needed. metoprolol succinate ER (TOPROL XL) 25 mg 24 hr tablet Take 25 mg by mouth once daily. mv-mn/iron/folic acid/herb 190 (VITAMIN D3 COMPLETE ORAL) Take by mouth. DULoxetine (CYMBALTA) 60 mg capsule Take 1 capsule by mouth twice daily. ZINC ORAL Take by mouth. tamsulosin ER (FLOMAX) 0.4 mg cap baclofen (LIORESAL) 10 mg tablet Take 10 mg by mouth three times daily. nitroglycerin sublingual (NITROQUICK) 0.4 mg SL tablet Dissolve 0.4 mg under the tongue every 5 minutes as needed. Aspirin 81 mg CpDR Take 81 mg by mouth once daily. atorvastatin 40 mg tablet Take 40 mg by mouth once daily. DOCOSAHEXANOIC ACID/EPA (FISH OIL ORAL) Take by mouth. ALLERGIES: Patient has no known allergies. PAST MEDICAL HISTORY: PAST MEDICAL HISTORY Diagnosis Date Anxiety Enlarged prostate HTN (hypertension) Hypercholesteremia Multiple myeloma, without mention of having achieved remission PAST SURGICAL HISTORY: PAST SURGICAL HISTORY Procedure Laterality Date REMOVAL OF LUNG,LOBECTOMY Right 04/24/2019 right upper lobe REVIEW OF SYSTEMS: As above. PHYSICAL EXAM: Vitals: BP 134/70 Pulse 60 Temp 36.6 C (97.8 F) (Temporal) Resp 16 Ht 170.6 cm (5' 7.17 ) Wt 71.6 kg (157 lb 12.8 oz) SpO2 96% BMI 24.59 kg/m ECOG 1 Exam limited to gross visualization where appropriate due to COVID-19. Gen.: This is an age-appropriate patient in no acute distress. Head: Appears atraumatic with no visible lesions. Eyes: Pupils equally round and reactive to light, extraocular muscles are intact. Neck: Supple. Mouth: Masked. Respiratory: Appears to be respiring comfortably. Neurologic: Nonfocal to gross visualization. Alert and oriented 3. Psychiatric: No evidence of inappropriate anxiety or depression. Skin: Visible areas of skin without rash, lesions, wounds or petechiae. PATHOLOGY: 06/14/2022 Lymph node, 10 R, EBUS transbronchial biopsy Adenocarcinoma. Immunohistochemistry: PD-L1 expression less than 1% ALK rearrangement 0% BRAF - No variant detected [Reference Sequence: ([id number])]. EGFR - No variant detected [Reference Sequence: ([id number])]. HER2 (ERBB2) - No variant detected [Reference Sequence: ([id number])]. KRAS - No variant detected [Reference Sequence: ([id number])]. MET - No variant detected [Reference Sequence: ([id number])]. RADIOLOGIC STUDIES: 12/16/2022 MRI brain ([facility]) Mild atrophy and chronic microvascular disease. No acute intracranial findings. 11/15/2022 Chest x-ray IMPRESSION: 1. Diffuse interstitial opacities throughout both lungs, suggestive of edema. 2. More patchy regions of airspace opacification within the right mid and lower lung, which could be infectious/inflammatory. If warranted, consider chest CT for further assessment. 3. Small right pleural effusion. 10/02/2022 CT Brain ([facility]) Unremarkable exam 09/26/2022 CT chest IMPRESSION: 1. New patchy right perihilar groundglass opacities in the right upper lung field most likely related to postradiation change. 2. Residual adjacent 0.7 x 0.7 cm right perihilar nodular density, decreased in size since 03/30/22. 3. New 2 mm left lower lobe nodular opacity most likely infectious/inflammatory in etiology. Consider continued annual follow-up. 4. Other mild reticulonodular opacities and groundglass opacities in right lower lobe and 2-3 mm nodular opacities, stable. 5. 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 6. Mild emphysematous changes of the lungs. 7. 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 04/28/2022 PET scan IMPRESSION: Head and Neck: * No evidence of FDG avid neoplastic process Chest: * 1.1 cm worsening right perihilar nodule concerning for neoplasm/recurrence. * No evidence of FDG avid thoracic lymphadenopathy, as described. Abdomen and pelvis: * No evidence of FDG avid neoplastic process Musculoskeletal: * No neoplastic hypermetabolic lesions 03/30/2022 CT chest IMPRESSION: 1. New 1.1 cm right lower lobe perihilar nodular opacity adjacent to surgical clips worrisome for neoplasm. Consider further evaluation via PET scan and/or other workup. 2. Mild reticulonodular opacities and groundglass opacities in right lower lobe and other 2-3 mm nodular opacities, stable since 08/30/21. 3. 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 4. Mild emphysematous changes of the lungs. 5. 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 10/11/2021 Skeletal survey ([facility]) No new lytic changes to suggest progression of myeloma 09/29/2021 CT chest IMPRESSION: 1. Mild reticulonodular opacities and groundglass opacities in right lower lobe slightly increased since 03/25/21. 2. Other 2-3 mm nodular opacities, stable. Consider continued interval follow-up. 3. 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 4. Mild emphysematous changes of the lungs. 5. 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 12/27/2020 PET SCAN IMPRESSION: Head and Neck: * No hypermetabolic foci Chest: * New right hilar uptake compared to the 08/21/2018 preoperative PET/CT is favored to be secondary to an inflammatory process or postoperative changes. Recommend 3 month follow-up PET/CT and/or contrast-enhanced chest CT for confirmation. * Areas of nodular pleural thickening along the lateral right middle lobe and right major fissure are unchanged and without FDG avidity, likely postsurgical changes. Abdomen and pelvis: * No evidence of FDG avid neoplastic process Musculoskeletal: * No neoplastic hypermetabolic lesions 02/20/2019 PET SCAN ([facility]) Solid spiculated 2.0 cm nodule in the right upper lobe posterior aspect abutting the oblique fissure. SUV 5.5. No lymphadenopathy. No evidence of metastatic disease. LABORATORY DATA: Hemoglobin (g/dL) Date Value 01/01/2023 9.8 07/07/2021 13.0 Hematocrit (%) Date Value 01/01/2023 29.9 07/07/2021 38.4 WBC (k/uL) Date Value 01/01/2023 8.66 07/07/2021 6.28 Platelet Count (k/uL) Date Value 01/01/2023 282 07/07/2021 262 ASSESSMENT/PLAN: 1. Malignant neoplasm of upper lobe of right lung (HCC) - ICD9: 162.3, ICD10: C34.11 (primary diagnosis) Stage IB (pT2a, N0, M0) adenocarcinoma of the right lung diagnosed April 2019. Status post right upper lobectomy 04/24/2019. Final pathology indicated invasive adenocarcinoma, acinar predominant type. Tumor size 3.1 cm, all margins negative. 9 resected lymph nodes negative. Adjuvant chemotherapy and radiation therapy not indicated, and routine postop surveillance recommended. Follow-up chest CT 03/30/2022 revealed a new 1.1 cm right lower lobe perihilar nodular opacity adjacent to surgical clips worrisome for neoplasm. Repeat PET scan 04/28/2022 revealed uptake in the right perihilar lymph node concerning for neoplasm. On 05/16/2022 the patient underwent a bronchoscopy with EBUS (Dr. Balwinder Roberto, [facility] in [place]). Bronchoscopy revealed no endobronchial lesions. Transbronchial biopsy of a right hilar lymph node (10 R) was obtained, but pathology revealed only atypical epithelial cells and no evidence of malignancy. Repeat EBUS was performed a [facility] on 06/14/2022 which confirmed adenocarcinoma. PD-L1 <1% and lung hot spot negative for other targetable mutations. Subsequently it was elected to treat with definitive chemoradiation consisting of low-dose weekly Taxol/carboplatin concurrent with involved field radiation. Treatment started 07/04/2022. The patient completed his fifth cycle of weekly chemotherapy on 08/01/2022, and completed his planned radiation on 08/14/2022. Other than myelosuppression he tolerated treatment well. Follow-up CT chest 09/26/2022 showed response. He subsequently started maintenance durvalumab on 10/17/2022, with plans to give 1500 mg IV every 4 weeks x 1 year as tolerated. On follow-up 11/15/2022 the patient was not doing well, and had clinical and radiographic evidence of pneumonitis. It was elected to discontinue durvalumab (the patient received only 1 dose on 10/17/2022). He was started on steroids with prednisone and clinically improved. The patient's prednisone was subsequently weaned and discontinued. In regards to his underlying lung cancer the patient currently is clinically stable. We will repeat his chest CT at 6 weeks, he will then return for follow-up. Multiple myeloma IgG lambda multiple myeloma initially diagnosed August 2008. Status post first line therapy with Revlimid and Decadron. Initial treatment discontinued after 6 months due to side effects (vasculitis). Subsequent treatment with Velcade, melphalan and prednisone x 7 cycles finished August 2010. He had a very good partial response. Since then the patient has remained on Aredia, currently dosed at 30 mg every 12 weeks. In regards to myeloma the patient is clinically stable and his paraprotein remains stable. We will monitor the patient's paraprotein closely and will discuss treatment options if/when his disease progresses. 3. 414.01 Coronary artery disease with history of myocardial infarction Acute IN October 2012. S/P coronary artery stent placement. Stable on current medications. Continue current medication per PCP/cardiology. 4. Neuropathy (HCC) - ICD9: 355.9, ICD10: G62.9 Chronic neuropathy, most likely secondary to underlying myeloma plus/minus other systemic condition. Stable on current medications (Neurontin 600 mg TID). 5. Squamous cell skin cancer - ICD9: 709.9, ICD10: L98.9 Squamous cell skin cancer involving the right side of nose removed August 2017. Continue follow-up and management per dermatology (Dr. De Guzman). He recently noticed a lesion over his ear, and will be referred back to dermatology for evaluation and treatment as indicated. 6. Chronic pain The patient has a long history of pain, multifactorial in etiology. In part his pain is related to underlying myeloma as well as previous thoracic surgery. The patient was seen by [facility] pain management in December 2020, and is much improved on current medications. He will continue his current medications and follow-up with [facility] pain management (Dr. Alberts) as scheduled. Ja Becker MD documented in this encounter [facility] 12-26-2022 Miscellaneous Notes Call placed to pt. No answer. Message left on pt's personalized voicemail informing him of script. Rhona Ruiz RN Patient phones requesting refills as follows: Last script written on 11/23/22. Requested Prescriptions Pending Prescriptions Disp Refills HYDROcodone-acetaminophen (NORCO) 5-325 mg per tablet 180 tablet 0 Sig: Take 2 tablets by mouth every 6 hours as needed. Please review and advise. Rhona Ruiz RN documented in this encounter [facility] 12-08-2022 Miscellaneous Notes Call placed to pt. No answer. Message left on pt's personalized voicemail, informing his of script. Rhona Ruiz RN The following approved medication requests have been transmitted electronically. Requested Prescriptions Signed Prescriptions Disp Refills clonazePAM (KLONOPIN) 1 mg tablet 90 tablet 3 Sig: Take 1 tablet by mouth three times daily as needed for up to 30 days. Authorizing Provider: AMBER RODRIGUEZ APRN.JC Patient phones requesting refills as follows: Original script written on 07/18/22 w/ 3 refills. Requested Prescriptions Pending Prescriptions Disp Refills clonazePAM (KLONOPIN) 1 mg tablet 90 tablet 3 Sig: Take 1 tablet by mouth three times daily as needed for up to 30 days. Please review and advise. Rhona Ruiz RN documented in this encounter [facility] 12-04-2022 History of Present illness Narrative PATIENT NAME: Raghavendra Heard DATE: 12/04/2022 PRIMARY CARE PHYSICIAN: Dr. Prerna Grissom II OTHER PHYSICIANS: Dr. Toledo (Cardiology [facility]), Dr. Zhang, Dr. Hernández (Wardrobe Manager in [place]), Dr. Stinson (Thoracic Surgery in [place]), Dr. Alberts Portions of this encounter note have been copied from Ja Becker MD note from 11/23/2022 and has been updated where appropriate, and reflect my current medical decision making from today. CC: This is a 77 year old male with recurrent lung cancer, seen for for scheduled follow-up. INTERIM HISTORY: Raghavendra Heard returns for follow-up. He is accompanied by his . He is still short of breath but continues to improve. Still using nebulizer treatments. He remains on prednisone 20 mg since 11/30/2022. He and his expressed concerns about patient having issues with word searching and brain fog. He is still fatigued and can sleep the drop of a hat . He states though he was able to get his garden planted. He denies fevers, chills, night sweats and signs/symptoms of infection. No bleeding or abnormal bruising. MEDICATIONS: HYDROcodone-acetaminophen (NORCO) 5-325 mg per tablet Take 2 tablets by mouth every 6 hours as needed. diazePAM (VALIUM) 5 mg tablet Take 1 tablet by mouth every 8 hours as needed for up to 30 days. predniSONE (DELTASONE) 20 mg tablet Take 2 tablets by mouth once daily. codeine-guaiFENesin (ROBITUSSIN AC) 10-100 mg/5 mL syrup Take 10 mL by mouth every 4 hours as needed. gabapentin (NEURONTIN) 300 mg capsule Take 2 capsules by mouth three times daily for 30 days. naloxone 4 mg/actuation nasal spray (NARCAN) Use 1 spray in one nostril as needed for overdose. May repeat every 2 to 3 min in alternating nostrils until medical assistance is available SENNA LAXATIVE 8.6 mg tab TAKE 2 TABLETS BY MOUTH TWICE A DAY famciclovir (FAMVIR) 250 mg tablet TAKE 1 TABLET BY MOUTH TWICE A DAY finasteride (PROSCAR) 5 mg tablet clonazePAM (KLONOPIN) 1 mg tablet Take 1 tablet by mouth three times daily as needed for up to 30 days. meloxicam (MOBIC) 15 mg tablet Take 1 tablet by mouth once daily. triamterene-hydroCHLOROthiazide (MAXZIDE-25) 37.5-25 mg per tablet TAKE 1 TABLET BY MOUTH EVERY DAY IN THE MORNING ondansetron (ZOFRAN) 8 mg tablet Take 1 tablet by mouth every 8 hours as needed for nausea/vomiting. prochlorperazine (COMPAZINE) 10 mg tablet Take 1 tablet by mouth every 6 hours as needed. metoprolol succinate ER (TOPROL XL) 25 mg 24 hr tablet Take 25 mg by mouth once daily. mv-mn/iron/folic acid/herb 190 (VITAMIN D3 COMPLETE ORAL) Take by mouth. DULoxetine (CYMBALTA) 60 mg capsule Take 1 capsule by mouth twice daily. docusate sodium (COLACE) 100 mg capsule TAKE 2 CAPSULES BY MOUTH TWICE A DAY ZINC ORAL Take by mouth. tamsulosin ER (FLOMAX) 0.4 mg cap baclofen (LIORESAL) 10 mg tablet Take 10 mg by mouth three times daily. nitroglycerin sublingual (NITROQUICK) 0.4 mg SL tablet Dissolve 0.4 mg under the tongue every 5 minutes as needed. Aspirin 81 mg CpDR Take 81 mg by mouth once daily. atorvastatin 40 mg tablet Take 40 mg by mouth once daily. DOCOSAHEXANOIC ACID/EPA (FISH OIL ORAL) Take by mouth. ALLERGIES: Patient has no known allergies. PAST MEDICAL HISTORY: PAST MEDICAL HISTORY Diagnosis Date Anxiety Enlarged prostate HTN (hypertension) Hypercholesteremia Multiple myeloma, without mention of having achieved remission PAST SURGICAL HISTORY: PAST SURGICAL HISTORY Procedure Laterality Date REMOVAL OF LUNG,LOBECTOMY Right 04/24/2019 right upper lobe REVIEW OF SYSTEMS: As above. PHYSICAL EXAM: Vitals: BP 136/66 Pulse (!) 50 Temp 36.6 C (97.9 F) (Temporal) Resp 16 Ht 170.6 cm (5' 7.17 ) Wt 71.5 kg (157 lb 9.6 oz) SpO2 97% BMI 24.56 kg/m ECOG 1 Exam limited to gross visualization where appropriate due to COVID-19. Gen.: This is an age-appropriate patient in no acute distress. Head: Appears atraumatic with no visible lesions. Eyes: Pupils equally round and reactive to light, extraocular muscles are intact. Neck: Supple. Mouth: Masked. Respiratory: Appears to be respiring comfortably. Neurologic: Nonfocal to gross visualization. Alert and oriented 3. Psychiatric: No evidence of inappropriate anxiety or depression. Skin: Visible areas of skin without rash, lesions, wounds or petechiae. PATHOLOGY: 06/14/2022 Lymph node, 10 R, EBUS transbronchial biopsy Adenocarcinoma. Immunohistochemistry: PD-L1 expression less than 1% ALK rearrangement 0% BRAF - No variant detected [Reference Sequence: ([id number])]. EGFR - No variant detected [Reference Sequence: ([id number])]. HER2 (ERBB2) - No variant detected [Reference Sequence: ([id number])]. KRAS - No variant detected [Reference Sequence: ([id number])]. MET - No variant detected [Reference Sequence: ([id number])]. RADIOLOGIC STUDIES: 11/15/2022 chest x-ray IMPRESSION: 1. Diffuse interstitial opacities throughout both lungs, suggestive of edema. 2. More patchy regions of airspace opacification within the right mid and lower lung, which could be infectious/inflammatory. If warranted, consider chest CT for further assessment. 3. Small right pleural effusion. 10/02/2022 CT Brain ([facility] [place]) Unremarkable exam 09/26/2022 CT chest IMPRESSION: 1. New patchy right perihilar groundglass opacities in the right upper lung field most likely related to postradiation change. 2. Residual adjacent 0.7 x 0.7 cm right perihilar nodular density, decreased in size since 03/30/22. 3. New 2 mm left lower lobe nodular opacity most likely infectious/inflammatory in etiology. Consider continued annual follow-up. 4. Other mild reticulonodular opacities and groundglass opacities in right lower lobe and 2-3 mm nodular opacities, stable. 5. 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 6. Mild emphysematous changes of the lungs. 7. 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 04/28/2022 PET scan IMPRESSION: Head and Neck: * No evidence of FDG avid neoplastic process Chest: * 1.1 cm worsening right perihilar nodule concerning for neoplasm/recurrence. * No evidence of FDG avid thoracic lymphadenopathy, as described. Abdomen and pelvis: * No evidence of FDG avid neoplastic process Musculoskeletal: * No neoplastic hypermetabolic lesions 03/30/2022 CT chest IMPRESSION: 1. New 1.1 cm right lower lobe perihilar nodular opacity adjacent to surgical clips worrisome for neoplasm. Consider further evaluation via PET scan and/or other workup. 2. Mild reticulonodular opacities and groundglass opacities in right lower lobe and other 2-3 mm nodular opacities, stable since 08/30/21. 3. 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 4. Mild emphysematous changes of the lungs. 5. 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 10/11/2021 Skeletal survey ([facility]) No new lytic changes to suggest progression of myeloma 09/29/2021 CT chest IMPRESSION: 1. Mild reticulonodular opacities and groundglass opacities in right lower lobe slightly increased since 03/25/21. 2. Other 2-3 mm nodular opacities, stable. Consider continued interval follow-up. 3. 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 4. Mild emphysematous changes of the lungs. 5. 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 12/27/2020 PET SCAN IMPRESSION: Head and Neck: * No hypermetabolic foci Chest: * New right hilar uptake compared to the 08/21/2018 preoperative PET/CT is favored to be secondary to an inflammatory process or postoperative changes. Recommend 3 month follow-up PET/CT and/or contrast-enhanced chest CT for confirmation. * Areas of nodular pleural thickening along the lateral right middle lobe and right major fissure are unchanged and without FDG avidity, likely postsurgical changes. Abdomen and pelvis: * No evidence of FDG avid neoplastic process Musculoskeletal: * No neoplastic hypermetabolic lesions 02/20/2019 PET SCAN ([facility]) Solid spiculated 2.0 cm nodule in the right upper lobe posterior aspect abutting the oblique fissure. SUV 5.5. No lymphadenopathy. No evidence of metastatic disease. LABORATORY DATA: Hemoglobin (g/dL) Date Value 12/04/2022 10.5 07/07/2021 13.0 Hematocrit (%) Date Value 12/04/2022 32.0 07/07/2021 38.4 WBC (k/uL) Date Value 12/04/2022 7.31 07/07/2021 6.28 Platelet Count (k/uL) Date Value 12/04/2022 259 07/07/2021 262 ASSESSMENT/PLAN: 1. Malignant neoplasm of upper lobe of right lung (HCC) - ICD9: 162.3, ICD10: C34.11 (primary diagnosis) Stage IB (pT2a, N0, M0) adenocarcinoma of the right lung diagnosed April 2019. Status post right upper lobectomy 04/24/2019. Final pathology indicated invasive adenocarcinoma, acinar predominant type. Tumor size 3.1 cm, all margins negative. 9 resected lymph nodes negative. Adjuvant chemotherapy and radiation therapy not indicated, and routine postop surveillance recommended. Follow-up chest CT 03/30/2022 revealed a new 1.1 cm right lower lobe perihilar nodular opacity adjacent to surgical clips worrisome for neoplasm. Repeat PET scan 04/28/2022 revealed uptake in the right perihilar lymph node concerning for neoplasm. On 05/16/2022 the patient underwent a bronchoscopy with EBUS (Dr. Balwinder Roberto, [facility] in [place]). Bronchoscopy revealed no endobronchial lesions. Transbronchial biopsy of a right hilar lymph node (10 R) was obtained, but pathology revealed only atypical epithelial cells and no evidence of malignancy. Repeat EBUS was performed a [facility] on 06/14/2022 which confirmed adenocarcinoma. PD-L1 <1% and lung hot spot negative for other targetable mutations. Subsequently it was elected to treat with definitive chemoradiation consisting of low-dose weekly Taxol/carboplatin concurrent with involved field radiation. Treatment started 07/04/2022. The patient completed his fifth cycle of weekly chemotherapy on 08/01/2022, and completed his planned radiation on 08/14/2022. Other than myelosuppression he tolerated treatment well. Follow-up CT chest 09/26/2022 showed response. He subsequently started maintenance durvalumab on 10/17/2022, with plans to give 1500 mg IV every 4 weeks x 1 year as tolerated. On follow-up 11/15/2022 the patient was not doing well, and had clinical and radiographic evidence of pneumonitis. It was elected to discontinue durvalumab. He was started on steroids with prednisone 40 mg daily and is clinically improved. At this time the patient will decrease the prednisone to 10 mg daily. He'll return in 4 weeks for follow-up and labs. Due to neurologic complaints will order an MRI of the brain. Patient has requested a refill of Robitussin AC. 2. 203.00 Multiple myeloma IgG lambda multiple myeloma initially diagnosed August 2008. Status post first line therapy with Revlimid and Decadron. Initial treatment discontinued after 6 months due to side effects (vasculitis). Subsequent treatment with Velcade, melphalan and prednisone x 7 cycles finished August 2010. He had a very good partial response. Since then the patient has remained on Aredia, currently dosed at 30 mg every 12 weeks. In regards to myeloma the patient is clinically stable and his paraprotein remains stable. We will monitor the patient's paraprotein closely and will discuss treatment options if/when his disease progresses. 3. 414.01 Coronary artery disease with history of myocardial infarction Acute IN October 2012. S/P coronary artery stent placement. Stable on current medications. Continue current medication per PCP/cardiology. 4. Neuropathy (HCC) - ICD9: 355.9, ICD10: G62.9 Chronic neuropathy, most likely secondary to underlying myeloma plus/minus other systemic condition. Stable on current medications (Neurontin 600 mg TID). 5. Squamous cell skin cancer - ICD9: 709.9, ICD10: L98.9 Squamous cell skin cancer involving the right side of nose removed August 2017. Continue follow-up and management per dermatology (Dr. De Guzman). He recently noticed a lesion over his ear, and will be referred back to dermatology for evaluation and treatment as indicated. 6. Chronic pain The patient has a long history of pain, multifactorial in etiology. In part his pain is related to underlying myeloma as well as previous thoracic surgery. The patient was seen by [facility] pain management in December 2020, and is much improved on current medications. He will continue his current medications and follow-up with [facility] pain management (Dr. Alberts) as scheduled. Amber Rodriguez APRN.CNP I spent a total of 30 minutes on the date of the service which included preparing to see the patient, [id number] patient care, completing clinical documentation, obtaining and/or reviewing separately obtained history, performing a medically appropriate examination, counseling and educating the patient/family/caregiver, ordering medications, tests, or procedures, independently interpreting results (not separately reported), and communicating results to the patient/family/caregiver. documented in this encounter [facility] 11-15-2022 History of Present illness Narrative Radiology Service Progress Note PATIENT NAME: Raghavendra Heard DATE OF SERVICE: November 15, 2022 TIME: 3:19 PM PATIENT IDENTITY VERIFICATION COMPLETED USING TWO (2) IDENTIFIERS: Name and Date of confirmed by patient verbally. FALL SCREENING: Has the patient had 2 falls in the last year or 1 fall with injury or currently using an Ambulatory Assistive Device (Walker, Cane, Wheelchair, Crutches, etc.)? No PATIENT GENDER DATA: Male PATIENT RELEVANT IMPLANT DATA REVIEWED: Not Applicable RADIOLOGY DEPARTMENT: General X-ray: Exam(s) Completed: Chest X-Ray PERIPHERAL IV DATA: Not applicable SIGNED BY: RT Karla(R) November 15, 2022 3:19 PM documented in this encounter [facility] 10-31-2022 History of Present illness Narrative Florentin Triana, PATIENT NAME: Raghavendra Heard DATE: 10/31/2022 PRIMARY CARE PHYSICIAN: Dr. Prerna Grissom II OTHER PHYSICIANS: Dr. Toledo (Cardiology [facility]), Dr. Zhang, Dr. Hernández (Wardrobe Manager in [place]), Dr. Stinson (Thoracic Surgery in [place]), Dr. Alberts Portions of this encounter note have been copied from Ja Becker MD note from 10/17/2022 and has been updated where appropriate, and reflect my current medical decision making from today. CC: This is a 77 year old male with recurrent lung cancer, seen for for scheduled follow-up. INTERIM HISTORY: Raghavendra Heard returns for follow-up. He received cycle 1 durvalumab on 10/17/2022 and overall tolerated it well. He has chronic exertional shortness of breath which is unchanged. He also has a cough. He denies fevers, chills, night sweats and signs/symptoms of infection. He denies diarrhea and GI complaints. No skin rashes. No bleeding or abnormal bruising. He states that after his treatment he had a little more pain below his ribs on his right side. He denies any new areas of pain. Overall, he is doing well today. MEDICATIONS: gabapentin (NEURONTIN) 300 mg capsule Take 2 capsules by mouth three times daily for 30 days. naloxone 4 mg/actuation nasal spray (NARCAN) Use 1 spray in one nostril as needed for overdose. May repeat every 2 to 3 min in alternating nostrils until medical assistance is available HYDROcodone-acetaminophen (NORCO) 5-325 mg per tablet Take 2 tablets by mouth every 6 hours as needed. SENNA LAXATIVE 8.6 mg tab TAKE 2 TABLETS BY MOUTH TWICE A DAY famciclovir (FAMVIR) 250 mg tablet TAKE 1 TABLET BY MOUTH TWICE A DAY finasteride (PROSCAR) 5 mg tablet clonazePAM (KLONOPIN) 1 mg tablet Take 1 tablet by mouth three times daily as needed for up to 30 days. meloxicam (MOBIC) 15 mg tablet Take 1 tablet by mouth once daily. triamterene-hydroCHLOROthiazide (MAXZIDE-25) 37.5-25 mg per tablet TAKE 1 TABLET BY MOUTH EVERY DAY IN THE MORNING ondansetron (ZOFRAN) 8 mg tablet Take 1 tablet by mouth every 8 hours as needed for nausea/vomiting. prochlorperazine (COMPAZINE) 10 mg tablet Take 1 tablet by mouth every 6 hours as needed. metoprolol succinate ER (TOPROL XL) 25 mg 24 hr tablet Take 25 mg by mouth once daily. mv-mn/iron/folic acid/herb 190 (VITAMIN D3 COMPLETE ORAL) Take by mouth. DULoxetine (CYMBALTA) 60 mg capsule Take 1 capsule by mouth twice daily. docusate sodium (COLACE) 100 mg capsule TAKE 2 CAPSULES BY MOUTH TWICE A DAY ZINC ORAL Take by mouth. tamsulosin ER (FLOMAX) 0.4 mg cap baclofen (LIORESAL) 10 mg tablet Take 10 mg by mouth three times daily. nitroglycerin sublingual (NITROQUICK) 0.4 mg SL tablet Dissolve 0.4 mg under the tongue every 5 minutes as needed. Aspirin 81 mg CpDR Take 81 mg by mouth once daily. atorvastatin 40 mg tablet Take 40 mg by mouth once daily. DOCOSAHEXANOIC ACID/EPA (FISH OIL ORAL) Take by mouth. ALLERGIES: Patient has no known allergies. PAST MEDICAL HISTORY: PAST MEDICAL HISTORY Diagnosis Date Anxiety Enlarged prostate HTN (hypertension) Hypercholesteremia Multiple myeloma, without mention of having achieved remission PAST SURGICAL HISTORY: PAST SURGICAL HISTORY Procedure Laterality Date REMOVAL OF LUNG,LOBECTOMY Right 04/24/2019 right upper lobe REVIEW OF SYSTEMS: As above. PHYSICAL EXAM: Vitals: BP 162/63 Pulse (!) 54 Temp 36.3 C (97.3 F) (Temporal) Resp 16 Ht 170.6 cm (5' 7.17 ) Wt 73.1 kg (161 lb 3.2 oz) SpO2 97% BMI 25.12 kg/m ECOG 1 Exam limited to gross visualization where appropriate due to COVID-19. Gen.: This is an age-appropriate patient in no acute distress. Head: Appears atraumatic with no visible lesions. Eyes: Pupils equally round and reactive to light, extraocular muscles are intact. Neck: Supple. Mouth: Masked. Respiratory: Appears to be respiring comfortably. Neurologic: Nonfocal to gross visualization. Alert and oriented 3. Psychiatric: No evidence of inappropriate anxiety or depression. Skin: Visible areas of skin without rash, lesions, wounds or petechiae. PATHOLOGY: 06/14/2022 Lymph node, 10 R, EBUS transbronchial biopsy Adenocarcinoma. Immunohistochemistry: PD-L1 expression less than 1% ALK rearrangement 0% BRAF - No variant detected [Reference Sequence: ([id number])]. EGFR - No variant detected [Reference Sequence: ([id number])]. HER2 (ERBB2) - No variant detected [Reference Sequence: ([id number])]. KRAS - No variant detected [Reference Sequence: ([id number])]. MET - No variant detected [Reference Sequence: ([id number])]. RADIOLOGIC STUDIES: 10/02/2022 CT Brain ([facility]) Unremarkable exam 09/26/2022 CT chest IMPRESSION: 1. New patchy right perihilar groundglass opacities in the right upper lung field most likely related to postradiation change. 2. Residual adjacent 0.7 x 0.7 cm right perihilar nodular density, decreased in size since 03/30/22. 3. New 2 mm left lower lobe nodular opacity most likely infectious/inflammatory in etiology. Consider continued annual follow-up. 4. Other mild reticulonodular opacities and groundglass opacities in right lower lobe and 2-3 mm nodular opacities, stable. 5. 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 6. Mild emphysematous changes of the lungs. 7. 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 04/28/2022 PET scan IMPRESSION: Head and Neck: * No evidence of FDG avid neoplastic process Chest: * 1.1 cm worsening right perihilar nodule concerning for neoplasm/recurrence. * No evidence of FDG avid thoracic lymphadenopathy, as described. Abdomen and pelvis: * No evidence of FDG avid neoplastic process Musculoskeletal: * No neoplastic hypermetabolic lesions 03/30/2022 CT chest IMPRESSION: 1. New 1.1 cm right lower lobe perihilar nodular opacity adjacent to surgical clips worrisome for neoplasm. Consider further evaluation via PET scan and/or other workup. 2. Mild reticulonodular opacities and groundglass opacities in right lower lobe and other 2-3 mm nodular opacities, stable since 08/30/21. 3. 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 4. Mild emphysematous changes of the lungs. 5. 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 10/11/2021 Skeletal survey ([facility]) No new lytic changes to suggest progression of myeloma 09/29/2021 CT chest IMPRESSION: 1. Mild reticulonodular opacities and groundglass opacities in right lower lobe slightly increased since 03/25/21. 2. Other 2-3 mm nodular opacities, stable. Consider continued interval follow-up. 3. 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 4. Mild emphysematous changes of the lungs. 5. 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 03/25/2021 CT chest IMPRESSION: Stable postoperative appearance to the chest as above. 12/27/2020 PET SCAN IMPRESSION: Head and Neck: * No hypermetabolic foci Chest: * New right hilar uptake compared to the 08/21/2018 preoperative PET/CT is favored to be secondary to an inflammatory process or postoperative changes. Recommend 3 month follow-up PET/CT and/or contrast-enhanced chest CT for confirmation. * Areas of nodular pleural thickening along the lateral right middle lobe and right major fissure are unchanged and without FDG avidity, likely postsurgical changes. Abdomen and pelvis: * No evidence of FDG avid neoplastic process Musculoskeletal: * No neoplastic hypermetabolic lesions 10/01/[address] IMPRESSION: 1. Overall stable CT of the chest. Stable postsurgical changes in keeping with right upper lobe lobectomy. 2. Stable nodular pleural plaques in the right upper lung zone. 3. Stable subpleural reticular change in both lower lobes likely representing scarring. 4. Stable right lower lobe 3 mm nodule. No new or enlarging nodules are seen. 06/16/2020 Plain film bone survey ([facility]) Impression: No lytic lesions to correspond with multiple myeloma. 04/06/2020 CT CHEST IMPRESSION: 1. No interval change since 11/14/2019. 2. Improved aeration of the right lung with interval resolution of previously noted right pneumothorax, pleural effusions and consolidative opacities. 3. Mild reticulonodular opacities in right lower lobe and 2-3 mm right lower lobe nodular opacity, stable. Consider continued interval follow-up. 4. Mild emphysematous changes of the lungs. 5. 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 02/20/2019 PET SCAN ([facility]) Solid spiculated 2.0 cm nodule in the right upper lobe posterior aspect abutting the oblique fissure. SUV 5.5. No lymphadenopathy. No evidence of metastatic disease. LABORATORY DATA: Hemoglobin (g/dL) Date Value 10/31/2022 9.3 07/07/2021 13.0 Hematocrit (%) Date Value 10/31/2022 27.6 07/07/2021 38.4 WBC (k/uL) Date Value 10/31/2022 3.87 07/07/2021 6.28 Platelet Count (k/uL) Date Value 10/31/2022 213 07/07/2021 262 ASSESSMENT/PLAN: 1. Malignant neoplasm of upper lobe of right lung (HCC) - ICD9: 162.3, ICD10: C34.11 (primary diagnosis) Stage IB (pT2a, N0, M0) adenocarcinoma of the right lung diagnosed April 2019. Status post right upper lobectomy 04/24/2019. Final pathology indicated invasive adenocarcinoma, acinar predominant type. Tumor size 3.1 cm, all margins negative. 9 resected lymph nodes negative. Adjuvant chemotherapy and radiation therapy not indicated, and routine postop surveillance recommended. Follow-up chest CT 03/30/2022 revealed a new 1.1 cm right lower lobe perihilar nodular opacity adjacent to surgical clips worrisome for neoplasm. Repeat PET scan 04/28/2022 revealed uptake in the right perihilar lymph node concerning for neoplasm. On 05/16/2022 the patient underwent a bronchoscopy with EBUS (Dr. Balwinder Roberto, [facility] in [place]). Bronchoscopy revealed no endobronchial lesions. Transbronchial biopsy of a right hilar lymph node (10 R) was obtained, but pathology revealed only atypical epithelial cells and no evidence of malignancy. Repeat EBUS was performed a [facility] on 06/14/2022 which confirmed adenocarcinoma. PD-L1 <1% and lung hot spot negative for other targetable mutations. Subsequently it was elected to treat with definitive chemoradiation consisting of low-dose weekly Taxol/carboplatin concurrent with involved field radiation. Treatment started 07/04/2022. The patient completed his fifth cycle of weekly chemotherapy on 08/01/2022, and completed his planned radiation on 08/14/2022. Other than myelosuppression he tolerated treatment well. Follow-up CT chest 09/26/2022 showed response. He started maintenance durvalumab on 10/17/2022. Plan is to give 1500 mg IV every 4 weeks x 1 year as tolerated. We will see him in 2 weeks for follow-up and his next treatment. 2. 203.00 Multiple myeloma IgG lambda multiple myeloma initially diagnosed August of 2008. Status post first line therapy with Revlimid and Decadron. This was stopped after 6 months due to side effects (vasculitis). Subsequent treatment with Velcade, melphalan and prednisone x 7 cycles finished August 2010. He had a very good partial response. Since then the patient has been on Aredia, currently dosed at 30 mg every 12 weeks. In regards to myeloma the patient is clinically stable and his paraprotein remains stable. The patient will receive Aredia today. We will monitor the patient's paraprotein, and will discuss treatment options if/when his disease progresses. 3. 414.01 Coronary artery disease with history of myocardial infarction Acute IN October 2012. S/P coronary artery stent placement. Stable on current medications. Continue current medication per PCP/cardiology. 4. Neuropathy (HCC) - ICD9: 355.9, ICD10: G62.9 Chronic neuropathy, most likely secondary to underlying myeloma plus/minus other systemic condition. Stable on current medications (Neurontin 600 mg TID). 5. Squamous cell skin cancer - ICD9: 709.9, ICD10: L98.9 Squamous cell skin cancer involving the right side of nose removed August 2017. Continue follow-up and management per dermatology (Dr. De Guzman). He recently noticed a lesion over his ear, and will be referred back to dermatology for evaluation and treatment as indicated. 6. Chronic pain The patient has a long history of pain, multifactorial in etiology. In part his pain is related to underlying myeloma as well as previous thoracic surgery. The patient was seen by [facility] pain management in December 2020, and is much improved on current medications. He will continue his current medications and follow-up with [facility] pain management (Dr. Alberts) as scheduled. Amber Rodriguez APRN.JC I spent a total of 30 minutes on the date of the service which included preparing to see the patient, [id number] patient care, completing clinical documentation, obtaining and/or reviewing separately obtained history, performing a medically appropriate examination, counseling and educating the patient/family/caregiver, ordering medications, tests, or procedures, independently interpreting results (not separately reported), and communicating results to the patient/family/caregiver. documented in this encounter [facility] 10-20-2022 Miscellaneous Notes CYCLE 1/DAY 1 POST TREATMENT CALL Today's date: October 20, 2022 Treatment Regimen: Durvalumab C1D1 Date: 10/17/2022 Called patient to follow-up on symptom management. Spoke with patient. SYMPTOM ASSESSMENT Neuro: Headache x1 last night. Resolved w/ Motrin. and Numbness/Weakness/Tingling in his feet. Takes gabapentin. No worse since starting treatment. CV/Resp: Shortness of breath slightly more than normal w/ activity and Cough: Yes; productive clear sputum and occasional GI/: Appetite: no changes in appetite, appetite good and Fluid intake: 5-6 bottles of water per day. Denies nausea or vomiting. No constipation or diarrhea. Integument: None Activity: Patient reported decreased energy level Do you need to take naps? Yes; Do you wake up feeling rested? Yes Rates today's fatigue 6/10. Pain: No=0 (pain 0 on a scale of 0-10). Fever: No Chills: No Any new referrals needed? No Reinforced CURRENT treatment education based on current and anticipated symptoms. Discussed port/line care and patient verbalizes understanding: Yes Patient instructed to contact office or after hours Hematology/Oncology fellow for: temperature ? 100.4; questions or concerns. Patient verbalized understanding of when to seek medical attention and after hours number protocol. Rhona Ruiz RN documented in this encounter [facility] 10-09-2022 Miscellaneous Notes Patient has been rescheduled for 10/17 and notified his scripts are ready - He wanted to talk to someone in retail regarding scripts, transferred call to retail pharmacy. Deirdre Carranza Records scanned. Please call pt and postpone his appointment for a week per Dr Becker's recommendations. Please let him know his scripts are ready to be picked up as well. Thanks Iza Jha RN Would postpone appointment until feeling better. Please reschedule for 1 week. Pt calls stating he fell Sunday night and his had to call the ambulance to come and get him because he couldn't get up. Pt states he spent some time in [facility] over the weekend. Pt states he has bronchitis and a sinus infection and is taking levaquin for this. Pt isn't sure if he should come into his appointment or not tomorrow? Ayanna: can you get records Please advise Iza Jha RN documented in this encounter [facility] 10-09-2022 Miscellaneous Notes Pt requesting refill on his lawrence. Iza Jha RN documented in this encounter [facility] 10-03-2022 Miscellaneous Notes EMERGENCY ROOM CALL BACK Today's date: October 03, 2022 Patient identified by name and date of . YES Primary Cancer Diagnosis: Lung Cancer Reason for Emergency Room Visit: Dizziness Time of day presented to Emergency Room 1602 If Sun-Sunday during business hours: N/A - Pt was transported from office to ER via EMS. Patient with any new symptom issues: No Psychosocial Risk Factors: None FOLLOW UP Patient reminded of her follow-up appointment with [facility] provider, Dr Becker on 10/10/22: Yes Next Metal Weigher outreach with patient scheduled? Advised pt to call w/ any questions or concerns. Discussed: ER records reviewed. CT head was negative. CXR was negative. Labs did not indicate any acute concerns. Pt was discharged home. Spoke w/ pt today. Pt alert and oriented to person, place, and time. Pt able to recite yesterday's events. States he left the ER and stopped at [employer] on the way home. [place] great after eating. Denies dizziness today. PATIENT EDUCATION/REINFORCEMENT Patient verbalizes understanding of when to seek Medical Attention? YES Patient verbalizes understanding of after hours and weekend phone number? YES Patient verbalizes understanding of next outreach appointment? YES Rhona Ruiz RN documented in this encounter [facility] 10-02-2022 History of Present illness Narrative 1430- While with another pt in the treatment observed Sharla Kurtz at pt's chairside with Hunter Richardson who was administering narcan nasal spray. Pt did arouse and was talking to staff at that time. VSS and documented on flowsheet. Per Sharla Kurtz pt will receive an additional 30 mins of NS and monitoring. 1505-Pt again noted to be very sluggish. Slow to arouse with shallow slow respirations and dusky, warm fingers. Sharla Kurtz notified and back to assess pt. 1509- a second dose of narcan was administered and pt again aroused and able to talk appropriately with staff. 911 called from infusion room per direction of Sharla Kurtz. 1515-EMS arrived. Report given by Sharla Kurtz and this RN. 1528-Pt taken to [facility] by [facility] with to follow in personal car. Unwitnessed fall in hallway. No injury to head, fell to knees. States he was dizzy. Escorted back to treatment room. Pulse 49. CHRISTINE Zavala ordered 1 liter NS, recheck vitals and check BS. BS 93 BP 93/53 P 44-46. Liter of fluids started. No further complaints of dizziness at this time. Treatment nurse states he seems sluggish today. Patient reports 1/2 a Vicodin but this is not different than every other day. Glenys notified and would like vital rechecked after fluids and notified. Glenys would also like to wait on Aredia as well. 1415- BP 114/62, patient still sluggish and tired but wishes to proceed with treatment. MMusser notified and said ok to treat. Asked about Aredia today as well. Glenys came back to see patient and is concerned as well that he seems so sluggish and plans to talk to Dr. Becker to review. 239-Glenys notified not treatment, observe for 30 minutes. Treatment nurse notified. Notified Antonieta Sol, she will have front end developer change appointment for education. Heidi Heck RN documented in this encounter [facility] 09-27-2022 Miscellaneous Notes Pt notified and will roll picker when here on Sunday. Rhona Ruiz RN The following approved medication requests have been transmitted electronically. Requested Prescriptions Signed Prescriptions Disp Refills HYDROcodone-acetaminophen (NORCO) 5-325 mg per tablet 180 tablet 0 Sig: Take 2 tablets by mouth every 6 hours as needed. Authorizing Provider: AMBER RODRIGUEZ APRN.JC Patient phones requesting refills as follows: Script was inadvertently sent again to [facility]. Needs to go to [facility]. Requested Prescriptions Pending Prescriptions Disp Refills HYDROcodone-acetaminophen (NORCO) 5-325 mg per tablet 180 tablet 0 Sig: Take 2 tablets by mouth every 6 hours as needed. Please review and advise. Rhona Ruiz RN documented in this encounter [facility] 09-27-2022 Miscellaneous Notes Patient phones requesting refills as follows: [facility] in [place] reports that they have been out of [place] for over 2 months. Unable to fill pt's script. Will need to go to [facility]. Requested Prescriptions Pending Prescriptions Disp Refills HYDROcodone-acetaminophen (NORCO) 5-325 mg per tablet 180 tablet 0 Sig: Take 2 tablets by mouth every 6 hours as needed. Please review and advise. Rhona Ruiz RN documented in this encounter [facility] 09-27-2022 Miscellaneous Notes Patient phones requesting refills as follows: Last script written on 08/22/22 Requested Prescriptions Pending Prescriptions Disp Refills HYDROcodone-acetaminophen (NORCO) 5-325 mg per tablet 180 tablet 0 Sig: Take 2 tablets by mouth every 6 hours as needed. Please review and advise. Rhona Ruiz RN documented in this encounter [facility] 09-26-2022 Miscellaneous Notes Patient is scheduled on 10/02/2022@1:30 pm for chemo ed. Cori Wall Clerical: Pt is scheduled to start Durvalumab on Sunday, 10/02. He will need education. Can do same day as treatment if he prefers. Rhona Ruiz RN ----- Message from Heidi Heck RN sent at 09/26/2022 1:32 PM EDT ----- Nain look to be starting maintenance Imfinzi on . I do not see education. Do you need him added for this or is he on your radar? Heidi Heck RN documented in this encounter [facility] 09-26-2022 History of Present illness Narrative Radiology Service Progress Note PATIENT NAME: Raghavendra Heard DATE OF SERVICE: September 26, 2022 TIME: 8:58 AM PATIENT IDENTITY VERIFICATION COMPLETED USING TWO (2) IDENTIFIERS: Name and Date of confirmed by patient verbally. FALL SCREENING: Has the patient had 2 falls in the last year or 1 fall with injury or currently using an Ambulatory Assistive Device (Walker, Cane, Wheelchair, Crutches, etc.)? No PATIENT GENDER DATA: Male PATIENT RELEVANT IMPLANT DATA REVIEWED: Not Applicable RADIOLOGY DEPARTMENT: CT; Exam(s) Completed: Chest PERIPHERAL IV DATA: Not applicable SIGNED BY: RT Karla(R) September 26, 2022 8:58 AM documented in this encounter [facility] 09-11-2022 History of Present illness Narrative PATIENT NAME: Raghavendra Heard DATE: 09/11/2022 PRIMARY CARE PHYSICIAN: Dr. Prerna Grissom II OTHER PHYSICIANS: Dr. Toledo (Cardiology [facility]), Dr. Zhang, Dr. Hernández (Wardrobe Manager in [place]), Dr. Stinson (Thoracic Surgery in [place]), Dr. Alberts Portions of this encounter note have been copied from the note from 08/09/2022 and has been updated where appropriate, and reflect my current medical decision making from today. CC: This is a 77 year old male with recurrent lung cancer, seen for for scheduled follow-up. INTERIM HISTORY: The patient completed his fifth cycle of weekly chemotherapy on 08/01/2022, and completed his planned radiation on 08/14/2022. Other than myelosuppression he tolerated treatment well. At his last visit he complained of a productive cough and shortness of breath consistent with bronchitis. His acute pulmonary symptoms resolved with antibiotics. On follow-up today he feels well. No unusual pain or other systemic symptoms. No recent fevers. Pain and anxiety are controlled with current medications. MEDICATIONS: diazePAM (VALIUM) 5 mg tablet Take 1 tablet by mouth every 8 hours as needed for up to 30 days. HYDROcodone-acetaminophen (NORCO) 5-325 mg per tablet Take 2 tablets by mouth every 6 hours as needed. famciclovir (FAMVIR) 250 mg tablet TAKE 1 TABLET BY MOUTH TWICE A DAY predniSONE (DELTASONE) 20 mg tablet Take 1 tablet by mouth once daily. finasteride (PROSCAR) 5 mg tablet clonazePAM (KLONOPIN) 1 mg tablet Take 1 tablet by mouth three times daily as needed for up to 30 days. gabapentin (NEURONTIN) 300 mg capsule Take 2 capsules by mouth three times daily for 30 days. meloxicam (MOBIC) 15 mg tablet Take 1 tablet by mouth once daily. senna (SENNA LAXATIVE) 8.6 mg tab Take 2 tablets by mouth twice daily. triamterene-hydroCHLOROthiazide (MAXZIDE-25) 37.5-25 mg per tablet TAKE 1 TABLET BY MOUTH EVERY DAY IN THE MORNING ondansetron (ZOFRAN) 8 mg tablet Take 1 tablet by mouth every 8 hours as needed for nausea/vomiting. prochlorperazine (COMPAZINE) 10 mg tablet Take 1 tablet by mouth every 6 hours as needed. metoprolol succinate ER (TOPROL XL) 25 mg 24 hr tablet Take 25 mg by mouth once daily. mv-mn/iron/folic acid/herb 190 (VITAMIN D3 COMPLETE ORAL) Take by mouth. DULoxetine (CYMBALTA) 60 mg capsule Take 1 capsule by mouth twice daily. docusate sodium (COLACE) 100 mg capsule TAKE 2 CAPSULES BY MOUTH TWICE A DAY ZINC ORAL Take by mouth. tamsulosin ER (FLOMAX) 0.4 mg cap baclofen (LIORESAL) 10 mg tablet Take 10 mg by mouth three times daily. nitroglycerin sublingual (NITROQUICK) 0.4 mg SL tablet Dissolve 0.4 mg under the tongue every 5 minutes as needed. Aspirin 81 mg CpDR Take 81 mg by mouth once daily. atorvastatin 40 mg tablet Take 40 mg by mouth once daily. DOCOSAHEXANOIC ACID/EPA (FISH OIL ORAL) Take by mouth. ALLERGIES: Patient has no known allergies. PAST MEDICAL HISTORY: PAST MEDICAL HISTORY Diagnosis Date Anxiety Enlarged prostate HTN (hypertension) Hypercholesteremia Multiple myeloma, without mention of having achieved remission PAST SURGICAL HISTORY: PAST SURGICAL HISTORY Procedure Laterality Date REMOVAL OF LUNG,LOBECTOMY Right 04/24/2019 right upper lobe REVIEW OF SYSTEMS: As above. PHYSICAL EXAM: Vitals: BP 140/66 Pulse (!) 48 Temp 36.4 C (97.6 F) (Temporal) Resp 16 Wt 74.1 kg (163 lb 6.4 oz) SpO2 92% BMI 24.94 kg/m ECOG 1 Exam limited to gross visualization where appropriate due to COVID-19. Gen.: This is an age-appropriate patient in no acute distress. Head: Appears atraumatic with no visible lesions. Eyes: Pupils equally round and reactive to light, extraocular muscles are intact. Neck: Supple. Mouth: Masked. Respiratory: Positive cough. Lung sounds with wheezing throughout. Neurologic: Nonfocal to gross visualization. Alert and oriented 3. Psychiatric: No evidence of inappropriate anxiety or depression. Skin: Visible areas of skin without rash, lesions, wounds or petechiae. PATHOLOGY: 06/14/2022 Lymph node, 10 R, EBUS transbronchial biopsy Adenocarcinoma. Immunohistochemistry: PD-L1 expression less than 1% ALK rearrangement 0% BRAF - No variant detected [Reference Sequence: ([id number])]. EGFR - No variant detected [Reference Sequence: ([id number])]. HER2 (ERBB2) - No variant detected [Reference Sequence: ([id number])]. KRAS - No variant detected [Reference Sequence: ([id number])]. MET - No variant detected [Reference Sequence: ([id number])]. RADIOLOGIC STUDIES: 04/28/2022 PET scan IMPRESSION: Head and Neck: * No evidence of FDG avid neoplastic process Chest: * 1.1 cm worsening right perihilar nodule concerning for neoplasm/recurrence. * No evidence of FDG avid thoracic lymphadenopathy, as described. Abdomen and pelvis: * No evidence of FDG avid neoplastic process Musculoskeletal: * No neoplastic hypermetabolic lesions 03/30/2022 CT chest IMPRESSION: 1. New 1.1 cm right lower lobe perihilar nodular opacity adjacent to surgical clips worrisome for neoplasm. Consider further evaluation via PET scan and/or other workup. 2. Mild reticulonodular opacities and groundglass opacities in right lower lobe and other 2-3 mm nodular opacities, stable since 08/30/21. 3. 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 4. Mild emphysematous changes of the lungs. 5. 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 10/11/2021 Skeletal survey ([facility]) No new lytic changes to suggest progression of myeloma 09/29/2021 CT chest IMPRESSION: 1. Mild reticulonodular opacities and groundglass opacities in right lower lobe slightly increased since 03/25/21. 2. Other 2-3 mm nodular opacities, stable. Consider continued interval follow-up. 3. 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 4. Mild emphysematous changes of the lungs. 5. 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 03/25/2021 CT chest IMPRESSION: Stable postoperative appearance to the chest as above. 12/27/2020 PET SCAN IMPRESSION: Head and Neck: * No hypermetabolic foci Chest: * New right hilar uptake compared to the 08/21/2018 preoperative PET/CT is favored to be secondary to an inflammatory process or postoperative changes. Recommend 3 month follow-up PET/CT and/or contrast-enhanced chest CT for confirmation. * Areas of nodular pleural thickening along the lateral right middle lobe and right major fissure are unchanged and without FDG avidity, likely postsurgical changes. Abdomen and pelvis: * No evidence of FDG avid neoplastic process Musculoskeletal: * No neoplastic hypermetabolic lesions 10/01/[address] IMPRESSION: 1. Overall stable CT of the chest. Stable postsurgical changes in keeping with right upper lobe lobectomy. 2. Stable nodular pleural plaques in the right upper lung zone. 3. Stable subpleural reticular change in both lower lobes likely representing scarring. 4. Stable right lower lobe 3 mm nodule. No new or enlarging nodules are seen. 06/16/2020 Plain film bone survey ([facility]) Impression: No lytic lesions to correspond with multiple myeloma. 04/06/2020 CT CHEST IMPRESSION: 1. No interval change since 11/14/2019. 2. Improved aeration of the right lung with interval resolution of previously noted right pneumothorax, pleural effusions and consolidative opacities. 3. Mild reticulonodular opacities in right lower lobe and 2-3 mm right lower lobe nodular opacity, stable. Consider continued interval follow-up. 4. Mild emphysematous changes of the lungs. 5. 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 02/20/2019 PET SCAN ([facility]) Solid spiculated 2.0 cm nodule in the right upper lobe posterior aspect abutting the oblique fissure. SUV 5.5. No lymphadenopathy. No evidence of metastatic disease. LABORATORY DATA: Hemoglobin (g/dL) Date Value 09/11/2022 10.1 07/07/2021 13.0 Hematocrit (%) Date Value 09/11/2022 29.5 07/07/2021 38.4 WBC (k/uL) Date Value 09/11/2022 2.95 07/07/2021 6.28 Platelet Count (k/uL) Date Value 09/11/2022 214 07/07/2021 262 ASSESSMENT/PLAN: 1. Malignant neoplasm of upper lobe of right lung (HCC) - ICD9: 162.3, ICD10: C34.11 (primary diagnosis) Stage IB (pT2a, N0, M0) adenocarcinoma of the right lung diagnosed April 2019. Status post right upper lobectomy 04/24/2019. Final pathology indicated invasive adenocarcinoma, acinar predominant type. Tumor size 3.1 cm, all margins negative. 9 resected lymph nodes negative. Adjuvant chemotherapy and radiation therapy not indicated, and routine postop surveillance recommended. Follow-up chest CT 03/30/2022 revealed a new 1.1 cm right lower lobe perihilar nodular opacity adjacent to surgical clips worrisome for neoplasm. Repeat PET scan 04/28/2022 revealed uptake in the right perihilar lymph node concerning for neoplasm. On 05/16/2022 the patient underwent a bronchoscopy with EBUS (Dr. Balwinder Roberto, [facility] in [place]). Bronchoscopy revealed no endobronchial lesions. Transbronchial biopsy of a right hilar lymph node (10 R) was obtained, but pathology revealed only atypical epithelial cells and no evidence of malignancy. Repeat EBUS was performed a [facility] on 06/14/2022 which confirmed adenocarcinoma. PD-L1 <1% and lung hot spot negative for other targetable mutations. Subsequently it was elected to treat with definitive chemoradiation consisting of low-dose weekly Taxol/carboplatin concurrent with involved field radiation. Treatment started 07/04/2022. The patient completed his fifth cycle of weekly chemotherapy on 08/01/2022, and completed his planned radiation on 08/14/2022. Other than myelosuppression he tolerated treatment well. Currently the patient is clinically stable. We will arrange for a repeat CT scan in 2 weeks. The patient will then return for follow-up in 3 weeks. If stable we will proceed with maintenance immunotherapy consisting of durvalumab every 4 weeks for 1 year. 2 203.00 Multiple myeloma IgG lambda multiple myeloma initially diagnosed August of 2008. Status post first line therapy with Revlimid and Decadron. This was stopped after 6 months due to side effects (vasculitis). Subsequent treatment with Velcade, melphalan and prednisone x 7 cycles finished August 2010. He had a very good partial response. Since then the patient has been on Aredia, currently dosed at 30 mg every 12 weeks. In regards to myeloma the patient is clinically stable and his paraprotein remains stable. Next Aredia is due September 2022. We will monitor the patient's paraprotein, and we will discuss treatment options if/when his disease progresses. 3. 414.01 Coronary artery disease with history of myocardial infarction Acute IN October 2012. S/P coronary artery stent placement. Stable on current medications. Continue current medication per PCP/cardiology. 4. Neuropathy (HCC) - ICD9: 355.9, ICD10: G62.9 Chronic neuropathy, most likely secondary to underlying myeloma plus/minus other systemic condition. Stable on current medications (Neurontin 600 mg TID). 5. Squamous cell skin cancer - ICD9: 709.9, ICD10: L98.9 Squamous cell skin cancer involving the right side of nose removed August 2017. Continue follow-up and management per dermatology (Dr. De Guzman). He recently noticed a lesion over his ear, and will be referred back to dermatology for evaluation and treatment as indicated. 6. Chronic pain The patient has a long history of pain, multifactorial in etiology. In part his pain is related to underlying myeloma as well as previous thoracic surgery. The patient was seen by [facility] pain management in December 2020, and is much improved on current medications. He will continue his current medications and follow-up with [facility] pain management (Dr. Alberts) as scheduled. Ja Becker MD documented in this encounter [facility] 08-22-2022 Miscellaneous Notes Call received from saran Arriaga/ [facility], they do not have [place] in stock. It has not been available to them for over a month. They will be cancelling the [place] script, but filling the Diazepam. New script pended to go to our pharmacy. Rhona Ruiz RN The following approved medication requests have been transmitted electronically. Requested Prescriptions Signed Prescriptions Disp Refills diazePAM (VALIUM) 5 mg tablet 90 tablet 3 Sig: Take 1 tablet by mouth every 8 hours as needed for up to 30 days. Authorizing Provider: AMBER RODRIGUEZ HYDROcodone-acetaminophen (NORCO) 5-325 mg per tablet 180 tablet 0 Sig: Take 2 tablets by mouth every 6 hours as needed. Authorizing Provider: AMBER RODRIGUEZ APRN.REJECT OPENER AND FILLER Patient phones requesting refills as follows: Requested Prescriptions Pending Prescriptions Disp Refills diazePAM (VALIUM) 5 mg tablet 90 tablet 3 Sig: Take 1 tablet by mouth every 8 hours as needed for up to 30 days. HYDROcodone-acetaminophen (NORCO) 5-325 mg per tablet 180 tablet 0 Sig: Take 2 tablets by mouth every 6 hours as needed. Please review and advise. Rhona Ruiz RN documented in this encounter [facility] 08-14-2022 History of Present illness Narrative [facility] Radiation [facility]cology Department RADIATION ONCOLOGY - COMPLETION NOTE PATIENT: RAGHAVENDRA HEARD: 1945 DATES OF TREATMENT: 07/04/2022 to 08/14/2022 DIAGNOSIS: Recurrent non-small cell carcinoma, adenocarcinoma, with right upper lobe lung. AREA TREATED: Right Lung Mediastinum DELIVERED DOSE: Area: Right Lung Mediastinum 6,000 cGy in 30 fractions, 2 Naidu, IMRT, 6MV with daily CBCT TOTAL: 6,000 cGy in 30 Fractions ELAPSED TIME: 41 days. CLINICAL SUMMARY: The patient received concurrent weekly carboplatin/Paclitaxel chemotherapy under direction of Dr. Becker.. He tolerated radiation with mild radiation related fatigue as expected. No other issues. The patient was able to complete treatment as intended without break interruption or modification of prescription plan. The disease response will be assesses in clinic. The patient will be seen again in 3-4 weeks for post radiation follow-up. Staff Physician Santi Saunders M.D. / [place] 31:31 PM Electronically Signed cc: Dr. Chelsy Becker documented in this encounter [facility] 08-09-2022 Miscellaneous Notes Seeing as urgent visit today. Amber Rodriguez APRN.CNP Patient stopped in stating he feels he has bronchitis. He reports he gets this every year and is usually prescribed a steroid, antibiotic and strong cough medicine. Pt states symptoms started Sunday afternoon. 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 Denies Fever. Audible wheezing noted. Lungs with expiratory rhonchi noted throughout bilaterally anterior and posteriorly. VS obtained 97.1-82-18 98% on RA 153/55. He did see Amber yesterday and said they did tell her he had a cough, but it has progressed since then. Pt is requesting meds just be sent in. I did mention they may want him seen or to do an xray and pt states they never have to do an xray for this. Please advise. Vesta Oquendo, ILENE documented in this encounter [facility] 08-08-2022 History of Present illness Narrative PATIENT NAME: Raghavendra Heard DATE: 08/08/2022 PRIMARY CARE PHYSICIAN: Dr. Prerna Grissom II OTHER PHYSICIANS: Dr. Toledo (Cardiology [facility]), Dr. Zhang, Dr. Hernández (Wardrobe Manager in [place]), Dr. Stinson (Thoracic Surgery in [place]), Dr. Alberts Portions of this encounter note have been copied from the note from 08/01/2022 and has been updated where appropriate, and reflect my current medical decision making from today. CC: This is a 77 year old male with recurrent lung cancer, seen for for scheduled follow-up and continued treatment. INTERIM HISTORY: Raghavendra Heard returns for follow up and treatment. He is receiving low-dose weekly chemotherapy concurrent with radiation. He has 4 radiation treatments remaining. He is tolerating radiation treatments well. He denies any significant side effects from chemotherapy. He has occasional nosebleeds. He states that he currently has a sinus infection. Otherwise, he denies any bleeding or abnormal bruising. No fevers or chills. His chronic cough is unchanged. His chronic shortness of breath at rest and exertion is unchanged. He denies dysphagia. Overall, he is doing well. MEDICATIONS: finasteride (PROSCAR) 5 mg tablet clonazePAM (KLONOPIN) 1 mg tablet Take 1 tablet by mouth three times daily as needed for up to 30 days. gabapentin (NEURONTIN) 300 mg capsule Take 2 capsules by mouth three times daily for 30 days. HYDROcodone-acetaminophen (NORCO) 5-325 mg per tablet Take 2 tablets by mouth every 6 hours as needed. meloxicam (MOBIC) 15 mg tablet Take 1 tablet by mouth once daily. senna (SENNA LAXATIVE) 8.6 mg tab Take 2 tablets by mouth twice daily. diazePAM (VALIUM) 5 mg tablet Take 1 tablet by mouth every 8 hours as needed for up to 30 days. diazePAM (VALIUM) 5 mg tablet TAKE 1 TABLET BY MOUTH EVERY 8 HOURS NEEDED FOR UP TO 30 DAYS. triamterene-hydroCHLOROthiazide (MAXZIDE-25) 37.5-25 mg per tablet TAKE 1 TABLET BY MOUTH EVERY DAY IN THE MORNING ondansetron (ZOFRAN) 8 mg tablet Take 1 tablet by mouth every 8 hours as needed for nausea/vomiting. prochlorperazine (COMPAZINE) 10 mg tablet Take 1 tablet by mouth every 6 hours as needed. metoprolol succinate ER (TOPROL XL) 25 mg 24 hr tablet Take 25 mg by mouth once daily. mv-mn/iron/folic acid/herb 190 (VITAMIN D3 COMPLETE ORAL) Take by mouth. DULoxetine (CYMBALTA) 60 mg capsule Take 1 capsule by mouth twice daily. docusate sodium (COLACE) 100 mg capsule TAKE 2 CAPSULES BY MOUTH TWICE A DAY famciclovir (FAMVIR) 250 mg tablet TAKE 1 TABLET BY MOUTH TWICE A DAY ZINC ORAL Take by mouth. tamsulosin ER (FLOMAX) 0.4 mg cap baclofen (LIORESAL) 10 mg tablet Take 10 mg by mouth three times daily. nitroglycerin sublingual (NITROQUICK) 0.4 mg SL tablet Dissolve 0.4 mg under the tongue every 5 minutes as needed. Aspirin 81 mg CpDR Take 81 mg by mouth once daily. atorvastatin 40 mg tablet Take 40 mg by mouth once daily. DOCOSAHEXANOIC ACID/EPA (FISH OIL ORAL) Take by mouth. ALLERGIES: Patient has no known allergies. PAST MEDICAL HISTORY: PAST MEDICAL HISTORY Diagnosis Date Anxiety Enlarged prostate HTN (hypertension) Hypercholesteremia Multiple myeloma, without mention of having achieved remission PAST SURGICAL HISTORY: PAST SURGICAL HISTORY Procedure Laterality Date REMOVAL OF LUNG,LOBECTOMY Right 04/24/2019 right upper lobe REVIEW OF SYSTEMS: As above. PHYSICAL EXAM: Vitals: BP 156/62 Pulse 60 Temp 36.3 C (97.4 F) (Temporal) Resp 16 Ht 172.4 cm (5' 7.87 ) Wt 73.9 kg (163 lb) SpO2 98% BMI 24.88 kg/m ECOG 1 Exam limited to gross visualization where appropriate due to COVID-19. Gen.: This is an age-appropriate patient in no acute distress. Head: Appears atraumatic with no visible lesions. Eyes: Pupils equally round and reactive to light, extraocular muscles are intact. Neck: Supple. Mouth: Masked. Respiratory: Appears to be respiring comfortably. Neurologic: Nonfocal to gross visualization. Alert and oriented 3. Psychiatric: No evidence of inappropriate anxiety or depression. Skin: Visible areas of skin without rash, lesions, wounds or petechiae. PATHOLOGY: 06/14/2022 Lymph node, 10 R, EBUS transbronchial biopsy Adenocarcinoma. Immunohistochemistry: PD-L1 expression less than 1% ALK rearrangement 0% BRAF - No variant detected [Reference Sequence: ([id number])]. EGFR - No variant detected [Reference Sequence: ([id number])]. HER2 (ERBB2) - No variant detected [Reference Sequence: ([id number])]. KRAS - No variant detected [Reference Sequence: ([id number])]. MET - No variant detected [Reference Sequence: ([id number])]. RADIOLOGIC STUDIES: 04/28/2022 PET scan IMPRESSION: Head and Neck: * No evidence of FDG avid neoplastic process Chest: * 1.1 cm worsening right perihilar nodule concerning for neoplasm/recurrence. * No evidence of FDG avid thoracic lymphadenopathy, as described. Abdomen and pelvis: * No evidence of FDG avid neoplastic process Musculoskeletal: * No neoplastic hypermetabolic lesions 03/30/2022 CT chest IMPRESSION: 1. New 1.1 cm right lower lobe perihilar nodular opacity adjacent to surgical clips worrisome for neoplasm. Consider further evaluation via PET scan and/or other workup. 2. Mild reticulonodular opacities and groundglass opacities in right lower lobe and other 2-3 mm nodular opacities, stable since 08/30/21. 3. 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 4. Mild emphysematous changes of the lungs. 5. 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 10/11/2021 Skeletal survey ([facility]) No new lytic changes to suggest progression of myeloma 09/29/2021 CT chest IMPRESSION: 1. Mild reticulonodular opacities and groundglass opacities in right lower lobe slightly increased since 03/25/21. 2. Other 2-3 mm nodular opacities, stable. Consider continued interval follow-up. 3. 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 4. Mild emphysematous changes of the lungs. 5. 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 03/25/2021 CT chest IMPRESSION: Stable postoperative appearance to the chest as above. 12/27/2020 PET SCAN IMPRESSION: Head and Neck: * No hypermetabolic foci Chest: * New right hilar uptake compared to the 08/21/2018 preoperative PET/CT is favored to be secondary to an inflammatory process or postoperative changes. Recommend 3 month follow-up PET/CT and/or contrast-enhanced chest CT for confirmation. * Areas of nodular pleural thickening along the lateral right middle lobe and right major fissure are unchanged and without FDG avidity, likely postsurgical changes. Abdomen and pelvis: * No evidence of FDG avid neoplastic process Musculoskeletal: * No neoplastic hypermetabolic lesions 10/01/[address] IMPRESSION: 1. Overall stable CT of the chest. Stable postsurgical changes in keeping with right upper lobe lobectomy. 2. Stable nodular pleural plaques in the right upper lung zone. 3. Stable subpleural reticular change in both lower lobes likely representing scarring. 4. Stable right lower lobe 3 mm nodule. No new or enlarging nodules are seen. 06/16/2020 Plain film bone survey ([facility]) Impression: No lytic lesions to correspond with multiple myeloma. 04/06/2020 CT CHEST IMPRESSION: 1. No interval change since 11/14/2019. 2. Improved aeration of the right lung with interval resolution of previously noted right pneumothorax, pleural effusions and consolidative opacities. 3. Mild reticulonodular opacities in right lower lobe and 2-3 mm right lower lobe nodular opacity, stable. Consider continued interval follow-up. 4. Mild emphysematous changes of the lungs. 5. 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 02/20/2019 PET SCAN ([facility]) Solid spiculated 2.0 cm nodule in the right upper lobe posterior aspect abutting the oblique fissure. SUV 5.5. No lymphadenopathy. No evidence of metastatic disease. LABORATORY DATA: ASSESSMENT/PLAN: 1. Malignant neoplasm of upper lobe of right lung (HCC) - ICD9: 162.3, ICD10: C34.11 (primary diagnosis) Stage IB (pT2a, N0, M0) adenocarcinoma of the right lung diagnosed April 2019. Status post right upper lobectomy 04/24/2019. Final pathology indicated invasive adenocarcinoma, acinar predominant type. Tumor size 3.1 cm, all margins negative. 9 resected lymph nodes negative. Adjuvant chemotherapy and radiation therapy not indicated, and routine postop surveillance recommended. Follow-up chest CT 03/30/2022 revealed a new 1.1 cm right lower lobe perihilar nodular opacity adjacent to surgical clips worrisome for neoplasm. Repeat PET scan 04/28/2022 revealed uptake in the right perihilar lymph node concerning for neoplasm. On 05/16/2022 the patient underwent a bronchoscopy with EBUS (Dr. Balwinder Roberto, [facility] in [place]). Bronchoscopy revealed no endobronchial lesions. Transbronchial biopsy of a right hilar lymph node (10 R) was obtained, but pathology revealed only atypical epithelial cells and no evidence of malignancy. Repeat EBUS was performed a [facility] on 06/14/2022 which confirmed adenocarcinoma. PD-L1 <1% and lung hot spot negative for other targetable mutations. Subsequently it was elected to treat with chemoradiation consisting of low-dose weekly Taxol/carboplatin concurrent with involved field radiation. Treatment started 07/04/2022. The patient has had myelosuppression, otherwise is tolerating treatment well. Due to neutropenia and thrombocytopenia we will hold treatment today. He will return 07/14/2022 for follow-up and labs. This will also complete his course of radiation. After chemoradiation is completed we will obtain a repeat chest CT. We will then discuss options for maintenance immunotherapy. 2. 203.00 Multiple myeloma IgG lambda multiple myeloma initially diagnosed August of 2008. Status post first line therapy with Revlimid and Decadron. This was stopped after 6 months due to side effects (vasculitis). Subsequent treatment with Velcade, melphalan and prednisone x 7 cycles finished August 2010. He had a very good partial response. Since then the patient has been on Aredia, currently dosed at 30 mg every 12 weeks. In regards to myeloma the patient is clinically stable and his paraprotein remains stable. Next Aredia is due September 2022. We will monitor the patient's paraprotein, and we will discuss treatment options if/when his disease progresses. 3. 414.01 Coronary artery disease with history of myocardial infarction Acute IN October 2012. S/P coronary artery stent placement. Stable on current medications. Continue current medication per PCP/cardiology. 4. Neuropathy (HCC) - ICD9: 355.9, ICD10: G62.9 Chronic neuropathy, most likely secondary to underlying myeloma plus/minus other systemic condition. Stable on current medications (Neurontin 600 mg TID). 5. Squamous cell skin cancer - ICD9: 709.9, ICD10: L98.9 Squamous cell skin cancer involving the right side of nose removed August 2017. Continue follow-up and management per dermatology (Dr. De Guzman). He recently noticed a lesion over his ear, and will be referred back to dermatology for evaluation and treatment as indicated. 6. Chronic pain The patient has a long history of pain, multifactorial in etiology. In part his pain is related to underlying myeloma as well as recent thoracic surgery. The patient was seen by [facility] pain management in December 2020, and is much improved on current medications. He will continue his current medications and follow-up with [facility] pain management (Dr. Alberts) as scheduled. Amber Rodriguez APRN.JC I spent a total of 30 minutes on the date of the service which included preparing to see the patient, [id number] patient care, completing clinical documentation, obtaining and/or reviewing separately obtained history, performing a medically appropriate examination, counseling and educating the patient/family/caregiver, ordering medications, tests, or procedures, independently interpreting results (not separately reported), and communicating results to the patient/family/caregiver. documented in this encounter [facility] 08-07-2022 History of Present illness Narrative Radiation Oncology - On Treatment Review (OTR) Note PATIENT NAME: Raghavendra Heard PATIENT DIAGNOSIS: Recurrent non-small cell carcinoma, adenocarcinoma, with right upper lobe lung. PROTOCOL: no COURSE: definitive and concurrent chemotherapy (weekly carboplatin and Taxol) Current dose: 5000 cGy in 25 fx Planned dose: 6000 cGy in 30 fx SUBJECTIVE: Patient has had a couple nosebleeds. No fever. No headache. No visual change. PHYSICAL EXAM: 08/07/22 1134 Weight: 73.1 kg (161 lb 3.2 oz) Area Assessed: Chest KPS: 100 General Appearance: Alert and oriented. No acute distress. Nasal: Right nares free of any bleeding left with some slightly hyperemia no active bleeding evidence of old blood no obstruction Chest: No respiratory distress. Lungs clear to auscultation bilaterally. IMAGING/LAB RESULTS: Hemoglobin (g/dL) Date Value 08/01/2022 9.7 07/07/2021 13.0 Hematocrit (%) Date Value 08/01/2022 28.2 07/07/2021 38.4 WBC (k/uL) Date Value 08/01/2022 1.80 07/07/2021 6.28 Platelet Count (k/uL) Date Value 08/01/2022 83 07/07/2021 262 TOXICITY ASSESSMENT (CTC v4.0): Fatigue: grade 0 - No symptoms Weight loss: grade 0 - No weight loss Nausea:Grade 0 - No Symptoms Radiation Dermatitis:grade 0 - No symptoms Dysphagia: grade 0 - No symptoms Esophageal Pain: Grade 0 - No symptoms Dyspnea: grade 0 (No symptoms) Treatment chart checked: Yes Patient treatment site reviewed and verified:Yes Port films reviewed and current:Yes Medications started: None ASSESSMENT/PLAN: Patient doing well. He has had some issues with pancytopenia. As further evaluation CBC tomorrow and sees Dr. Becker. Continue radiation as outlined. Marisabel Saunders MD documented in this encounter [facility] 08-02-2022 Miscellaneous Notes Patient has an OTV appointment on 08/08. Please place lab orders. Debbie Downey documented in this encounter [facility] 08-01-2022 History of Present illness Narrative PATIENT NAME: Raghavendra Heard DATE: 08/01/2022 PRIMARY CARE PHYSICIAN: Dr. Prerna Grissom II OTHER PHYSICIANS: Dr. Toledo (Cardiology [facility]), Dr. Zhang, Dr. Hernández (Wardrobe Manager in [place]), Dr. Stinson (Thoracic Surgery in [place]), Dr. Alberts Portions of this encounter note have been copied from the note from 07/25/2022 and has been updated where appropriate, and reflect my current medical decision making from today. CC: This is a 77 year old male with recurrent lung cancer, seen for for scheduled follow-up and continued treatment. INTERIM HISTORY: The patient remains on treatment with radiation therapy concurrent with low-dose weekly chemotherapy. He has noticed hair loss. No significant cough or shortness of breath. No dysphagia. Overall he feels well and is ready to proceed with chemotherapy today as planned. MEDICATIONS: finasteride (PROSCAR) 5 mg tablet clonazePAM (KLONOPIN) 1 mg tablet Take 1 tablet by mouth three times daily as needed for up to 30 days. gabapentin (NEURONTIN) 300 mg capsule Take 2 capsules by mouth three times daily for 30 days. HYDROcodone-acetaminophen (NORCO) 5-325 mg per tablet Take 2 tablets by mouth every 6 hours as needed. meloxicam (MOBIC) 15 mg tablet Take 1 tablet by mouth once daily. senna (SENNA LAXATIVE) 8.6 mg tab Take 2 tablets by mouth twice daily. diazePAM (VALIUM) 5 mg tablet Take 1 tablet by mouth every 8 hours as needed for up to 30 days. diazePAM (VALIUM) 5 mg tablet TAKE 1 TABLET BY MOUTH EVERY 8 HOURS NEEDED FOR UP TO 30 DAYS. triamterene-hydroCHLOROthiazide (MAXZIDE-25) 37.5-25 mg per tablet TAKE 1 TABLET BY MOUTH EVERY DAY IN THE MORNING ondansetron (ZOFRAN) 8 mg tablet Take 1 tablet by mouth every 8 hours as needed for nausea/vomiting. prochlorperazine (COMPAZINE) 10 mg tablet Take 1 tablet by mouth every 6 hours as needed. metoprolol succinate ER (TOPROL XL) 25 mg 24 hr tablet Take 25 mg by mouth once daily. mv-mn/iron/folic acid/herb 190 (VITAMIN D3 COMPLETE ORAL) Take by mouth. DULoxetine (CYMBALTA) 60 mg capsule Take 1 capsule by mouth twice daily. docusate sodium (COLACE) 100 mg capsule TAKE 2 CAPSULES BY MOUTH TWICE A DAY famciclovir (FAMVIR) 250 mg tablet TAKE 1 TABLET BY MOUTH TWICE A DAY ZINC ORAL Take by mouth. tamsulosin ER (FLOMAX) 0.4 mg cap baclofen (LIORESAL) 10 mg tablet Take 10 mg by mouth three times daily. nitroglycerin sublingual (NITROQUICK) 0.4 mg SL tablet Dissolve 0.4 mg under the tongue every 5 minutes as needed. Aspirin 81 mg CpDR Take 81 mg by mouth once daily. atorvastatin 40 mg tablet Take 40 mg by mouth once daily. DOCOSAHEXANOIC ACID/EPA (FISH OIL ORAL) Take by mouth. ALLERGIES: Patient has no known allergies. PAST MEDICAL HISTORY: PAST MEDICAL HISTORY Diagnosis Date Anxiety Enlarged prostate HTN (hypertension) Hypercholesteremia Multiple myeloma, without mention of having achieved remission PAST SURGICAL HISTORY: PAST SURGICAL HISTORY Procedure Laterality Date REMOVAL OF LUNG,LOBECTOMY Right 04/24/2019 right upper lobe REVIEW OF SYSTEMS: As above. PHYSICAL EXAM: Vitals: BP 150/69 Pulse (!) 53 Temp 36.2 C (97.2 F) (Temporal) Resp 16 Ht 172.4 cm (5' 7.87 ) Wt 74.5 kg (164 lb 3.2 oz) SpO2 98% BMI 25.06 kg/m ECOG 1 PHYSICAL EXAMINATION General: Alert and oriented, no distress, pleasant and cooperative. Heart: Regular, normal S1 and S2, no murmurs, rubs, or gallops Lungs: Clear to auscultation bilaterally Abdomen: Benign Extremities: Feet/ankles without edema, posterior tibial pulses full and symmetrical PATHOLOGY: 06/14/2022 Lymph node, 10 R, EBUS transbronchial biopsy Adenocarcinoma. Immunohistochemistry: PD-L1 expression less than 1% ALK rearrangement 0% BRAF - No variant detected [Reference Sequence: ([id number])]. EGFR - No variant detected [Reference Sequence: ([id number])]. HER2 (ERBB2) - No variant detected [Reference Sequence: ([id number])]. KRAS - No variant detected [Reference Sequence: ([id number])]. MET - No variant detected [Reference Sequence: ([id number])]. RADIOLOGIC STUDIES: 04/28/2022 PET scan IMPRESSION: Head and Neck: * No evidence of FDG avid neoplastic process Chest: * 1.1 cm worsening right perihilar nodule concerning for neoplasm/recurrence. * No evidence of FDG avid thoracic lymphadenopathy, as described. Abdomen and pelvis: * No evidence of FDG avid neoplastic process Musculoskeletal: * No neoplastic hypermetabolic lesions 03/30/2022 CT chest IMPRESSION: 1. New 1.1 cm right lower lobe perihilar nodular opacity adjacent to surgical clips worrisome for neoplasm. Consider further evaluation via PET scan and/or other workup. 2. Mild reticulonodular opacities and groundglass opacities in right lower lobe and other 2-3 mm nodular opacities, stable since 08/30/21. 3. 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 4. Mild emphysematous changes of the lungs. 5. 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 10/11/2021 Skeletal survey ([facility]) No new lytic changes to suggest progression of myeloma 09/29/2021 CT chest IMPRESSION: 1. Mild reticulonodular opacities and groundglass opacities in right lower lobe slightly increased since 03/25/21. 2. Other 2-3 mm nodular opacities, stable. Consider continued interval follow-up. 3. 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 4. Mild emphysematous changes of the lungs. 5. 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 03/25/2021 CT chest IMPRESSION: Stable postoperative appearance to the chest as above. 12/27/2020 PET SCAN IMPRESSION: Head and Neck: * No hypermetabolic foci Chest: * New right hilar uptake compared to the 08/21/2018 preoperative PET/CT is favored to be secondary to an inflammatory process or postoperative changes. Recommend 3 month follow-up PET/CT and/or contrast-enhanced chest CT for confirmation. * Areas of nodular pleural thickening along the lateral right middle lobe and right major fissure are unchanged and without FDG avidity, likely postsurgical changes. Abdomen and pelvis: * No evidence of FDG avid neoplastic process Musculoskeletal: * No neoplastic hypermetabolic lesions 10/01/[address] IMPRESSION: 1. Overall stable CT of the chest. Stable postsurgical changes in keeping with right upper lobe lobectomy. 2. Stable nodular pleural plaques in the right upper lung zone. 3. Stable subpleural reticular change in both lower lobes likely representing scarring. 4. Stable right lower lobe 3 mm nodule. No new or enlarging nodules are seen. 06/16/2020 Plain film bone survey ([facility]) Impression: No lytic lesions to correspond with multiple myeloma. 04/06/2020 CT CHEST IMPRESSION: 1. No interval change since 11/14/2019. 2. Improved aeration of the right lung with interval resolution of previously noted right pneumothorax, pleural effusions and consolidative opacities. 3. Mild reticulonodular opacities in right lower lobe and 2-3 mm right lower lobe nodular opacity, stable. Consider continued interval follow-up. 4. Mild emphysematous changes of the lungs. 5. 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 02/20/2019 PET SCAN ([facility]) Solid spiculated 2.0 cm nodule in the right upper lobe posterior aspect abutting the oblique fissure. SUV 5.5. No lymphadenopathy. No evidence of metastatic disease. LABORATORY DATA: Hemoglobin (g/dL) Date Value 08/01/2022 9.7 07/07/2021 13.0 Hematocrit (%) Date Value 08/01/2022 28.2 07/07/2021 38.4 WBC (k/uL) Date Value 08/01/2022 1.80 07/07/2021 6.28 Platelet Count (k/uL) Date Value 08/01/2022 83 07/07/2021 262 ASSESSMENT/PLAN: 1. Malignant neoplasm of upper lobe of right lung (HCC) - ICD9: 162.3, ICD10: C34.11 (primary diagnosis) Stage IB (pT2a, N0, M0) adenocarcinoma of the right lung diagnosed April 2019. Status post right upper lobectomy 04/24/2019. Final pathology indicated invasive adenocarcinoma, acinar predominant type. Tumor size 3.1 cm, all margins negative. 9 resected lymph nodes negative. Adjuvant chemotherapy and radiation therapy not indicated, and routine postop surveillance recommended. Follow-up chest CT 03/30/2022 revealed a new 1.1 cm right lower lobe perihilar nodular opacity adjacent to surgical clips worrisome for neoplasm. Repeat PET scan 04/28/2022 revealed uptake in the right perihilar lymph node concerning for neoplasm. On 05/16/2022 the patient underwent a bronchoscopy with EBUS (Dr. Balwinder Roberto, [facility] in [place]). Bronchoscopy revealed no endobronchial lesions. Transbronchial biopsy of a right hilar lymph node (10 R) was obtained, but pathology revealed only atypical epithelial cells and no evidence of malignancy. Repeat EBUS was performed a [facility] on 06/14/2022 which confirmed adenocarcinoma. PD-L1 <1% and lung hot spot negative for other targetable mutations. Subsequently it was elected to treat with chemoradiation consisting of low-dose weekly Taxol/carboplatin concurrent with involved field radiation. Treatment started 07/04/2022. The patient has had myelosuppression, otherwise is tolerating treatment well. Will proceed with cycle 5 today. To minimize myelosuppression we will reduce carboplatin to AUC 1.5. Return in 1 week, and if stable will give cycle 6 and stop. Continue radiation as planned. After chemoradiation is completed we will obtain a repeat chest CT. We will then discuss options for maintenance immunotherapy. 2. 203.00 Multiple myeloma IgG lambda multiple myeloma initially diagnosed August of 2008. Status post first line therapy with Revlimid and Decadron. This was stopped after 6 months due to side effects (vasculitis). Subsequent treatment with Velcade, melphalan and prednisone x 7 cycles finished August 2010. He had a very good partial response. Since then the patient has been on Aredia, currently dosed at 30 mg every 12 weeks. In regards to myeloma the patient is clinically stable and his paraprotein remains stable. Next Aredia is due September 2022. We will monitor the patient's paraprotein, and we will discuss treatment options if/when his disease progresses. 3. 414.01 Coronary artery disease with history of myocardial infarction Acute IN October 2012. S/P coronary artery stent placement. Stable on current medications. Continue current medication per PCP/cardiology. 4. Neuropathy (HCC) - ICD9: 355.9, ICD10: G62.9 Chronic neuropathy, most likely secondary to underlying myeloma plus/minus other systemic condition. Stable on current medications (Neurontin 600 mg TID). 5. Squamous cell skin cancer - ICD9: 709.9, ICD10: L98.9 Squamous cell skin cancer involving the right side of nose removed August 2017. Continue follow-up and management per dermatology (Dr. De Guzman). He recently noticed a lesion over his ear, and will be referred back to dermatology for evaluation and treatment as indicated. 6. Chronic pain The patient has a long history of pain, multifactorial in etiology. In part his pain is related to underlying myeloma as well as recent thoracic surgery. The patient was seen by [facility] pain management in December 2020, and is much improved on current medications. He will continue his current medications and follow-up with [facility] pain management (Dr. Alberts) as scheduled. Ja Becker MD documented in this encounter [facility] 07-25-2022 Nurse Note Patient does have Dermatology appointment on 08/10/22. Catarina Feng MA documented in this encounter [facility] 07-25-2022 History of Present illness Narrative PATIENT NAME: Raghavendra Heard DATE: 07/25/2022 PRIMARY CARE PHYSICIAN: Dr. Prerna Grissom II OTHER PHYSICIANS: Dr. Toledo (Cardiology [facility]), Dr. Zhang, Dr. Hernández (Wardrobe Manager in [place]), Dr. Stinson (Thoracic Surgery in [place]), Dr. Alberts (Elements copied from Dr. Becker's note dated July 18, 2022, have been reviewed and updated where appropriate, and all reflect current assessment and medical decision making during today's encounter, July 25, 2022) CC: This is a 77 year old male with recurrent lung cancer, seen for for scheduled follow-up and continued treatment. INTERIM HISTORY: Mr. Heard returns for follow up. He remains on chemoradiation for his locally recurrent lung cancer. He did have diarrhea for 3 days and imodium helped. No nausea, vomiting, mouth sores, or worsening neuropathy. He is having some increased fatigue. No fevers, chills, cough or shortness of breath. His chronic neuropathic pain remains the same. MEDICATIONS: finasteride (PROSCAR) 5 mg tablet clonazePAM (KLONOPIN) 1 mg tablet Take 1 tablet by mouth three times daily as needed for up to 30 days. gabapentin (NEURONTIN) 300 mg capsule Take 2 capsules by mouth three times daily for 30 days. HYDROcodone-acetaminophen (NORCO) 5-325 mg per tablet Take 2 tablets by mouth every 6 hours as needed. meloxicam (MOBIC) 15 mg tablet Take 1 tablet by mouth once daily. senna (SENNA LAXATIVE) 8.6 mg tab Take 2 tablets by mouth twice daily. diazePAM (VALIUM) 5 mg tablet Take 1 tablet by mouth every 8 hours as needed for up to 30 days. diazePAM (VALIUM) 5 mg tablet TAKE 1 TABLET BY MOUTH EVERY 8 HOURS NEEDED FOR UP TO 30 DAYS. triamterene-hydroCHLOROthiazide (MAXZIDE-25) 37.5-25 mg per tablet TAKE 1 TABLET BY MOUTH EVERY DAY IN THE MORNING ondansetron (ZOFRAN) 8 mg tablet Take 1 tablet by mouth every 8 hours as needed for nausea/vomiting. prochlorperazine (COMPAZINE) 10 mg tablet Take 1 tablet by mouth every 6 hours as needed. metoprolol succinate ER (TOPROL XL) 25 mg 24 hr tablet Take 25 mg by mouth once daily. mv-mn/iron/folic acid/herb 190 (VITAMIN D3 COMPLETE ORAL) Take by mouth. DULoxetine (CYMBALTA) 60 mg capsule Take 1 capsule by mouth twice daily. docusate sodium (COLACE) 100 mg capsule TAKE 2 CAPSULES BY MOUTH TWICE A DAY famciclovir (FAMVIR) 250 mg tablet TAKE 1 TABLET BY MOUTH TWICE A DAY ZINC ORAL Take by mouth. tamsulosin ER (FLOMAX) 0.4 mg cap baclofen (LIORESAL) 10 mg tablet Take 10 mg by mouth three times daily. nitroglycerin sublingual (NITROQUICK) 0.4 mg SL tablet Dissolve 0.4 mg under the tongue every 5 minutes as needed. Aspirin 81 mg CpDR Take 81 mg by mouth once daily. atorvastatin 40 mg tablet Take 40 mg by mouth once daily. DOCOSAHEXANOIC ACID/EPA (FISH OIL ORAL) Take by mouth. ALLERGIES: Patient has no known allergies. PAST MEDICAL HISTORY: PAST MEDICAL HISTORY Diagnosis Date Anxiety Enlarged prostate HTN (hypertension) Hypercholesteremia Multiple myeloma, without mention of having achieved remission PAST SURGICAL HISTORY: PAST SURGICAL HISTORY Procedure Laterality Date REMOVAL OF LUNG,LOBECTOMY Right 04/24/2019 right upper lobe REVIEW OF SYSTEMS: As above. PHYSICAL EXAM: Vitals: BP 105/54 Pulse (!) 51 Temp 36.4 C (97.5 F) (Temporal) Resp 16 Ht 172.4 cm (5' 7.87 ) Wt 74.8 kg (165 lb) SpO2 97% BMI 25.18 kg/m ECOG 1 PHYSICAL EXAMINATION General: Alert and oriented, no distress, pleasant and cooperative. Heart: Regular, normal S1 and S2, no murmurs, rubs, or gallops Lungs: Clear to auscultation bilaterally Abdomen: Benign Extremities: Feet/ankles without edema, posterior tibial pulses full and symmetrical PATHOLOGY: 06/14/2022 Lymph node, 10 R, EBUS transbronchial biopsy Adenocarcinoma. Immunohistochemistry: PD-L1 expression less than 1% ALK rearrangement 0% BRAF - No variant detected [Reference Sequence: ([id number])]. EGFR - No variant detected [Reference Sequence: ([id number])]. HER2 (ERBB2) - No variant detected [Reference Sequence: ([id number])]. KRAS - No variant detected [Reference Sequence: ([id number])]. MET - No variant detected [Reference Sequence: ([id number])]. RADIOLOGIC STUDIES: 04/28/2022 PET scan IMPRESSION: Head and Neck: * No evidence of FDG avid neoplastic process Chest: * 1.1 cm worsening right perihilar nodule concerning for neoplasm/recurrence. * No evidence of FDG avid thoracic lymphadenopathy, as described. Abdomen and pelvis: * No evidence of FDG avid neoplastic process Musculoskeletal: * No neoplastic hypermetabolic lesions 03/30/2022 CT chest IMPRESSION: 1. New 1.1 cm right lower lobe perihilar nodular opacity adjacent to surgical clips worrisome for neoplasm. Consider further evaluation via PET scan and/or other workup. 2. Mild reticulonodular opacities and groundglass opacities in right lower lobe and other 2-3 mm nodular opacities, stable since 08/30/21. 3. 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 4. Mild emphysematous changes of the lungs. 5. 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 10/11/2021 Skeletal survey ([facility]) No new lytic changes to suggest progression of myeloma 09/29/2021 CT chest IMPRESSION: 1. Mild reticulonodular opacities and groundglass opacities in right lower lobe slightly increased since 03/25/21. 2. Other 2-3 mm nodular opacities, stable. Consider continued interval follow-up. 3. 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 4. Mild emphysematous changes of the lungs. 5. 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 03/25/2021 CT chest IMPRESSION: Stable postoperative appearance to the chest as above. 12/27/2020 PET SCAN IMPRESSION: Head and Neck: * No hypermetabolic foci Chest: * New right hilar uptake compared to the 08/21/2018 preoperative PET/CT is favored to be secondary to an inflammatory process or postoperative changes. Recommend 3 month follow-up PET/CT and/or contrast-enhanced chest CT for confirmation. * Areas of nodular pleural thickening along the lateral right middle lobe and right major fissure are unchanged and without FDG avidity, likely postsurgical changes. Abdomen and pelvis: * No evidence of FDG avid neoplastic process Musculoskeletal: * No neoplastic hypermetabolic lesions 10/01/[address] IMPRESSION: 1. Overall stable CT of the chest. Stable postsurgical changes in keeping with right upper lobe lobectomy. 2. Stable nodular pleural plaques in the right upper lung zone. 3. Stable subpleural reticular change in both lower lobes likely representing scarring. 4. Stable right lower lobe 3 mm nodule. No new or enlarging nodules are seen. 06/16/2020 Plain film bone survey ([facility]) Impression: No lytic lesions to correspond with multiple myeloma. 04/06/2020 CT CHEST IMPRESSION: 1. No interval change since 11/14/2019. 2. Improved aeration of the right lung with interval resolution of previously noted right pneumothorax, pleural effusions and consolidative opacities. 3. Mild reticulonodular opacities in right lower lobe and 2-3 mm right lower lobe nodular opacity, stable. Consider continued interval follow-up. 4. Mild emphysematous changes of the lungs. 5. 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 02/20/2019 PET SCAN ([facility]) Solid spiculated 2.0 cm nodule in the right upper lobe posterior aspect abutting the oblique fissure. SUV 5.5. No lymphadenopathy. No evidence of metastatic disease. LABORATORY DATA: Hemoglobin (g/dL) Date Value 07/25/2022 10.1 07/07/2021 13.0 Hematocrit (%) Date Value 07/25/2022 28.8 07/07/2021 38.4 WBC (k/uL) Date Value 07/25/2022 1.95 07/07/2021 6.28 Platelet Count (k/uL) Date Value 07/25/2022 115 07/07/2021 262 ASSESSMENT/PLAN: 1. Malignant neoplasm of upper lobe of right lung (HCC) - ICD9: 162.3, ICD10: C34.11 (primary diagnosis) Stage IB (pT2a, N0, M0) adenocarcinoma of the right lung diagnosed April 2019. Status post right upper lobectomy 04/24/2019. Final pathology indicated invasive adenocarcinoma, acinar predominant type. Tumor size 3.1 cm, all margins negative. 9 resected lymph nodes negative. Adjuvant chemotherapy and radiation therapy not indicated, and routine postop surveillance recommended. For evaluation of right chest wall pain the patient underwent a PET scan on 12/27/2020. He was found to have a small right hilar lymph node of unclear significance, otherwise no evidence of disease. Follow-up chest CT 09/29/2021 stable. However, most recent chest CT 03/30/2022 revealed a new 1.1 cm right lower lobe perihilar nodular opacity adjacent to surgical clips worrisome for neoplasm. Repeat PET scan 04/28/2022 revealed uptake in the right perihilar lymph node concerning for neoplasm. On 05/16/2022 the patient underwent a bronchoscopy with EBUS (Dr. Balwinder Roberto, [facility] in [place]). Bronchoscopy revealed no endobronchial lesions. Transbronchial biopsy of a right hilar lymph node (10 R) was obtained, but pathology revealed only atypical epithelial cells and no evidence of malignancy. Repeat EBUS was performed a [facility] on 06/14/2022 which confirmed adenocarcinoma. PD-L1 <1% and lung hot spot negative for other targetable mutations. Subsequently it was elected to treat with chemoradiation consisting of low-dose weekly Taxol/carboplatin concurrent with involved field radiation.. Treatment started 07/04/2022. At this time the patient is clinically stable. Will continue with week 4 of carboplatin and taxol. He will continue his radiation as well. We will see him in 1 week for continued therapy. Multiple myeloma IgG lambda multiple myeloma initially diagnosed August of 2008. Status post first line therapy with Revlimid and Decadron. This was stopped after 6 months due to side effects (vasculitis). Subsequent treatment with Velcade, melphalan and prednisone x 7 cycles finished August 2010. He had a very good partial response. Since then the patient has been on Aredia, currently dosed at 30 mg every 12 weeks. In regards to myeloma the patient is clinically stable and his paraprotein remains stable. Next Aredia is due September 2022. We will monitor the patient's paraprotein, and we will discuss treatment options if/when his disease progresses. 3. 414.01 Coronary artery disease with history of myocardial infarction Acute IN October 2012. S/P coronary artery stent placement. Stable on current medications. Continue current medication per PCP/cardiology. 4. Neuropathy (HCC) - ICD9: 355.9, ICD10: G62.9 Chronic neuropathy, most likely secondary to underlying myeloma plus/minus other systemic condition. Stable on current medications (Neurontin 600 mg TID). 5. Squamous cell skin cancer - ICD9: 709.9, ICD10: L98.9 Squamous cell skin cancer involving the right side of nose removed August 2017. Continue follow-up and management per dermatology (Dr. De Guzman). He recently noticed a lesion over his ear, and will be referred back to dermatology for evaluation and treatment as indicated. 6. Chronic pain The patient has a long history of pain, multifactorial in etiology. In part his pain is related to underlying myeloma as well as recent thoracic surgery. The patient was seen by [facility] pain management in December 2020, and is much improved on current medications. He will continue his current medications and follow-up with [facility] pain management (Dr. Alberts) as scheduled. Glenys Kurtz PA-C documented in this encounter [facility] 07-18-2022 Miscellaneous Notes Patient phones requesting refills as follows: Requested Prescriptions Pending Prescriptions Disp Refills clonazePAM (KLONOPIN) 1 mg tablet 90 tablet 3 Sig: Take 1 tablet by mouth three times daily as needed for up to 30 days. gabapentin (NEURONTIN) 300 mg capsule 180 capsule 3 Sig: Take 2 capsules by mouth three times daily for 30 days. HYDROcodone-acetaminophen (NORCO) 5-325 mg per tablet 180 tablet 0 Sig: Take 2 tablets by mouth every 6 hours as needed. meloxicam (MOBIC) 15 mg tablet 30 tablet 5 Sig: Take 1 tablet by mouth once daily. senna (SENNA LAXATIVE) 8.6 mg tab 120 tablet 11 Sig: Take 2 tablets by mouth twice daily. diazePAM (VALIUM) 5 mg tablet 90 tablet 3 Sig: Take 1 tablet by mouth every 8 hours as needed for up to 30 days. Please review and advise. Rhona Ruiz RN documented in this encounter [facility] 07-18-2022 History of Present illness Narrative PATIENT NAME: Raghavendra Heard DATE: 07/18/2022 PRIMARY CARE PHYSICIAN: Dr. Prerna Grissom II OTHER PHYSICIANS: Dr. Toledo (Cardiology [facility]), Dr. Zhang, Dr. Hernández (Wardrobe Manager in [place]), Dr. Stinson (Thoracic Surgery in [place]), Dr. Alberts Portions of this encounter note have been copied from the note from 07/11/2022 and has been updated where appropriate, and reflect my current medical decision making from today. CC: This is a 77 year old male with recurrent lung cancer, seen for for scheduled follow-up and continued treatment. INTERIM HISTORY: The patient remains on chemoradiation for his locally recurrent lung cancer. He is tolerating the treatments quite well. He denies any dysphagia or side effects of treatment. No fevers or signs of infection. Chronic symptoms including neuropathic pains are controlled with current medications. MEDICATIONS: diazePAM (VALIUM) 5 mg tablet TAKE 1 TABLET BY MOUTH EVERY 8 HOURS NEEDED FOR UP TO 30 DAYS. triamterene-hydroCHLOROthiazide (MAXZIDE-25) 37.5-25 mg per tablet TAKE 1 TABLET BY MOUTH EVERY DAY IN THE MORNING ondansetron (ZOFRAN) 8 mg tablet Take 1 tablet by mouth every 8 hours as needed for nausea/vomiting. prochlorperazine (COMPAZINE) 10 mg tablet Take 1 tablet by mouth every 6 hours as needed. HYDROcodone-acetaminophen (NORCO) 5-325 mg per tablet Take 2 tablets by mouth every 6 hours as needed. meloxicam (MOBIC) 15 mg tablet TAKE 1 TABLET BY MOUTH EVERY DAY metoprolol succinate ER (TOPROL XL) 25 mg 24 hr tablet Take 25 mg by mouth once daily. mv-mn/iron/folic acid/herb 190 (VITAMIN D3 COMPLETE ORAL) Take by mouth. DULoxetine (CYMBALTA) 60 mg capsule Take 1 capsule by mouth twice daily. clonazePAM (KLONOPIN) 1 mg tablet Take 1 tablet by mouth three times daily as needed for up to 30 days. docusate sodium (COLACE) 100 mg capsule TAKE 2 CAPSULES BY MOUTH TWICE A DAY senna (SENNA LAXATIVE) 8.6 mg tab Take 2 tablets by mouth twice daily. famciclovir (FAMVIR) 250 mg tablet TAKE 1 TABLET BY MOUTH TWICE A DAY gabapentin (NEURONTIN) 300 mg capsule TAKE 2 CAPSULES BY MOUTH THREE TIMES DAILY FOR 90 DAYS ZINC ORAL Take by mouth. tamsulosin ER (FLOMAX) 0.4 mg cap baclofen (LIORESAL) 10 mg tablet Take 10 mg by mouth three times daily. nitroglycerin sublingual (NITROQUICK) 0.4 mg SL tablet Dissolve 0.4 mg under the tongue every 5 minutes as needed. Aspirin 81 mg CpDR Take 81 mg by mouth once daily. atorvastatin 40 mg tablet Take 40 mg by mouth once daily. DOCOSAHEXANOIC ACID/EPA (FISH OIL ORAL) Take by mouth. ALLERGIES: Patient has no known allergies. PAST MEDICAL HISTORY: PAST MEDICAL HISTORY Diagnosis Date Anxiety Enlarged prostate HTN (hypertension) Hypercholesteremia Multiple myeloma, without mention of having achieved remission PAST SURGICAL HISTORY: PAST SURGICAL HISTORY Procedure Laterality Date REMOVAL OF LUNG,LOBECTOMY Right 04/24/2019 right upper lobe REVIEW OF SYSTEMS: As above. PHYSICAL EXAM: Vitals: BP 124/66 Pulse (!) 57 Temp 36.2 C (97.1 F) (Temporal) Resp 16 Ht 172.4 cm (5' 7.87 ) Wt 73.4 kg (161 lb 12.8 oz) SpO2 96% BMI 24.69 kg/m ECOG 1 Exam limited to gross visualization where appropriate due to COVID-19. Gen.: This is an age-appropriate patient in no acute distress. Head: Appears atraumatic with no visible lesions. Eyes: Pupils equally round and reactive to light, extraocular muscles are intact. Neck: Supple. Mouth: Masked. Respiratory: Appears to be respiring comfortably. Neurologic: Nonfocal to gross visualization. Alert and oriented 3. Psychiatric: No evidence of inappropriate anxiety or depression. Skin: Visible areas of skin without rash, lesions, wounds or petechiae. PATHOLOGY: 06/14/2022 Lymph node, 10 R, EBUS transbronchial biopsy Adenocarcinoma. Immunohistochemistry: PD-L1 expression less than 1% ALK rearrangement 0% BRAF - No variant detected [Reference Sequence: ([id number])]. EGFR - No variant detected [Reference Sequence: ([id number])]. HER2 (ERBB2) - No variant detected [Reference Sequence: ([id number])]. KRAS - No variant detected [Reference Sequence: ([id number])]. MET - No variant detected [Reference Sequence: ([id number])]. RADIOLOGIC STUDIES: 04/28/2022 PET scan IMPRESSION: Head and Neck: * No evidence of FDG avid neoplastic process Chest: * 1.1 cm worsening right perihilar nodule concerning for neoplasm/recurrence. * No evidence of FDG avid thoracic lymphadenopathy, as described. Abdomen and pelvis: * No evidence of FDG avid neoplastic process Musculoskeletal: * No neoplastic hypermetabolic lesions 03/30/2022 CT chest IMPRESSION: 1. New 1.1 cm right lower lobe perihilar nodular opacity adjacent to surgical clips worrisome for neoplasm. Consider further evaluation via PET scan and/or other workup. 2. Mild reticulonodular opacities and groundglass opacities in right lower lobe and other 2-3 mm nodular opacities, stable since 08/30/21. 3. 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 4. Mild emphysematous changes of the lungs. 5. 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 10/11/2021 Skeletal survey ([facility]) No new lytic changes to suggest progression of myeloma 09/29/2021 CT chest IMPRESSION: 1. Mild reticulonodular opacities and groundglass opacities in right lower lobe slightly increased since 03/25/21. 2. Other 2-3 mm nodular opacities, stable. Consider continued interval follow-up. 3. 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 4. Mild emphysematous changes of the lungs. 5. 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 03/25/2021 CT chest IMPRESSION: Stable postoperative appearance to the chest as above. 12/27/2020 PET SCAN IMPRESSION: Head and Neck: * No hypermetabolic foci Chest: * New right hilar uptake compared to the 08/21/2018 preoperative PET/CT is favored to be secondary to an inflammatory process or postoperative changes. Recommend 3 month follow-up PET/CT and/or contrast-enhanced chest CT for confirmation. * Areas of nodular pleural thickening along the lateral right middle lobe and right major fissure are unchanged and without FDG avidity, likely postsurgical changes. Abdomen and pelvis: * No evidence of FDG avid neoplastic process Musculoskeletal: * No neoplastic hypermetabolic lesions 10/01/[address] IMPRESSION: 1. Overall stable CT of the chest. Stable postsurgical changes in keeping with right upper lobe lobectomy. 2. Stable nodular pleural plaques in the right upper lung zone. 3. Stable subpleural reticular change in both lower lobes likely representing scarring. 4. Stable right lower lobe 3 mm nodule. No new or enlarging nodules are seen. 06/16/2020 Plain film bone survey ([facility]) Impression: No lytic lesions to correspond with multiple myeloma. 04/06/2020 CT CHEST IMPRESSION: 1. No interval change since 11/14/2019. 2. Improved aeration of the right lung with interval resolution of previously noted right pneumothorax, pleural effusions and consolidative opacities. 3. Mild reticulonodular opacities in right lower lobe and 2-3 mm right lower lobe nodular opacity, stable. Consider continued interval follow-up. 4. Mild emphysematous changes of the lungs. 5. 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 02/20/2019 PET SCAN ([facility]) Solid spiculated 2.0 cm nodule in the right upper lobe posterior aspect abutting the oblique fissure. SUV 5.5. No lymphadenopathy. No evidence of metastatic disease. LABORATORY DATA: Hemoglobin (g/dL) Date Value 07/18/2022 11.3 07/07/2021 13.0 Hematocrit (%) Date Value 07/18/2022 32.7 07/07/2021 38.4 WBC (k/uL) Date Value 07/18/2022 2.23 07/07/2021 6.28 Platelet Count (k/uL) Date Value 07/18/2022 114 07/07/2021 262 ASSESSMENT/PLAN: 1. Malignant neoplasm of upper lobe of right lung (HCC) - ICD9: 162.3, ICD10: C34.11 (primary diagnosis) Stage IB (pT2a, N0, M0) adenocarcinoma of the right lung diagnosed April 2019. Status post right upper lobectomy 04/24/2019. Final pathology indicated invasive adenocarcinoma, acinar predominant type. Tumor size 3.1 cm, all margins negative. 9 resected lymph nodes negative. Adjuvant chemotherapy and radiation therapy not indicated, and routine postop surveillance recommended. For evaluation of right chest wall pain the patient underwent a PET scan on 12/27/2020. He was found to have a small right hilar lymph node of unclear significance, otherwise no evidence of disease. Follow-up chest CT 09/29/2021 stable. However, most recent chest CT 03/30/2022 revealed a new 1.1 cm right lower lobe perihilar nodular opacity adjacent to surgical clips worrisome for neoplasm. Repeat PET scan 04/28/2022 revealed uptake in the right perihilar lymph node concerning for neoplasm. On 05/16/2022 the patient underwent a bronchoscopy with EBUS (Dr. Balwinder Roberto, [facility] in [place]). Bronchoscopy revealed no endobronchial lesions. Transbronchial biopsy of a right hilar lymph node (10 R) was obtained, but pathology revealed only atypical epithelial cells and no evidence of malignancy. Repeat EBUS was performed a [facility] on 06/14/2022 which confirmed adenocarcinoma. PD-L1 <1% and lung hot spot negative for other targetable mutations. Subsequently it was elected to treat with chemoradiation consisting of low-dose weekly Taxol/carboplatin concurrent with involved field radiation.. Treatment started 07/04/2022. At this time the patient is clinically stable. The patient will receive carbo/Taxol cycle 3 today continue radiation per Dr. Saunders. Return in 1 week for follow-up and continued treatment. 2 203.00 Multiple myeloma IgG lambda multiple myeloma initially diagnosed August of 2008. Status post first line therapy with Revlimid and Decadron. This was stopped after 6 months due to side effects (vasculitis). Subsequent treatment with Velcade, melphalan and prednisone x 7 cycles finished August 2010. He had a very good partial response. Since then the patient has been on Aredia, currently dosed at 30 mg every 12 weeks. In regards to myeloma the patient is clinically stable and his paraprotein remains stable. Next Aredia is due September 2022. We will monitor the patient's paraprotein, and we will discuss treatment options if/when his disease progresses. 3. 414.01 Coronary artery disease with history of myocardial infarction Acute IN October 2012. S/P coronary artery stent placement. Stable on current medications. Continue current medication per PCP/cardiology. 4. Neuropathy (HCC) - ICD9: 355.9, ICD10: G62.9 Chronic neuropathy, most likely secondary to underlying myeloma plus/minus other systemic condition. Stable on current medications (Neurontin 600 mg TID). 5. Squamous cell skin cancer - ICD9: 709.9, ICD10: L98.9 Squamous cell skin cancer involving the right side of nose removed August 2017. Continue follow-up and management per dermatology (Dr. De Guzman). He recently noticed a lesion over his ear, and will be referred back to dermatology for evaluation and treatment as indicated. 6. Chronic pain The patient has a long history of pain, multifactorial in etiology. In part his pain is related to underlying myeloma as well as recent thoracic surgery. The patient was seen by [facility] pain management in December 2020, and is much improved on current medications. He will continue his current medications and follow-up with [facility] pain management (Dr. Alberts) as scheduled. Ja Becker MD documented in this encounter [facility] 07-17-2022 Miscellaneous Notes Called [facility] Derm office spoke with Noelle. She states they have received this referral and have called left message for patient to call their office back to schedule. Roslaina Blount Records faxed to [facility] Dermatology. Ayanna: Information ready for you. Rosalina Blount Refer to [facility] Dermatology for skin lesion on Right ear. They will review the records and call the patient to schedule this appt. Dajuan, Please print info for Ayanna to Fax. Ayanna, Please fax records to Dr Grier office. Thank you ladies documented in this encounter [facility] 07-17-2022 History of Present illness Narrative Radiation Oncology - On Treatment Review (OTR) Note PATIENT NAME: Raghavendra Heard PATIENT DIAGNOSIS: Recurrent non-small cell carcinoma, adenocarcinoma, with right upper lobe lung. PROTOCOL: no COURSE: definitive and concurrent chemotherapy Current dose: 2000 cGy in 10 fx Planned dose: 6000 cGy in 30 fx SUBJECTIVE: No new problems. PHYSICAL EXAM: 07/17/22 1141 BP: 168/79 Pulse: (!) 57 Resp: 18 Temp: (!) 35.9 C (96.7 F) SpO2: 98% Weight: 72.1 kg (159 lb) Area Assessed: Chest KPS: 100 General Appearance: Alert and oriented. No acute distress. Chest: No respiratory distress. Lungs clear to auscultation bilaterally. IMAGING/LAB RESULTS: Hemoglobin (g/dL) Date Value 07/11/2022 12.4 07/07/2021 13.0 Hematocrit (%) Date Value 07/11/2022 35.8 07/07/2021 38.4 WBC (k/uL) Date Value 07/11/2022 3.19 07/07/2021 6.28 Platelet Count (k/uL) Date Value 07/11/2022 135 07/07/2021 262 TOXICITY ASSESSMENT (CTC v4.0): Fatigue: grade 0 - No symptoms Weight loss: grade 0 - No weight loss Nausea:Grade 0 - No Symptoms Radiation Dermatitis:grade 0 - No symptoms Dysphagia: grade 0 - No symptoms Esophageal Pain: Grade 0 - No symptoms Dyspnea: grade 0 (No symptoms) Treatment chart checked: Yes Patient treatment site reviewed and verified:Yes Port films reviewed and current:Yes Medications started: None ASSESSMENT/PLAN: Patient doing well. Chart and imaging reviewed. Continue radiation as outlined. Marisabel Saunders MD documented in this encounter [facility] 07-11-2022 History of Present illness Narrative PATIENT NAME: Raghavendra Heard DATE: 07/11/2022 PRIMARY CARE PHYSICIAN: Dr. Prerna Grissom II OTHER PHYSICIANS: Dr. Toledo (Cardiology [facility]), Dr. Zhang, Dr. Hernández (Wardrobe Manager in [place]), Dr. Stinson (Thoracic Surgery in [place]), Dr. Alberts (Elements copied from Glenys Kurtz PA-C note dated July 04, 2022, have been reviewed and updated where appropriate, and all reflect current assessment and medical decision making during today's encounter, July 11, 2022) CC: This is a 77 year old male with a history of multiple myeloma and lung cancer with suspected local recurrence, seen for for scheduled follow-up and continued treatment. INTERIM HISTORY: Raghavendra Heard returns for follow up and continued treatment. He started carboplatin and Taxol concurrent with radiation on 07/04/2022. He tolerated chemotherapy treatment well. He denies any treatment related side effects. He is tolerating radiation treatments. No fevers, chills, night sweats or signs/symptoms of infection. No bleeding or abnormal bruising. He complains of leg cramps in the thigh and groin areas. The leg cramps are not new. He is eating and drinking well. He has had a skin lesion to his right ear. This has been there for some time. He has seen dermatology in the past and has had a cancerous skin lesion removed from his nose. Overall, he is doing well today and wishes to proceed with treatment as planned. MEDICATIONS: ondansetron (ZOFRAN) 8 mg tablet Take 1 tablet by mouth every 8 hours as needed for nausea/vomiting. prochlorperazine (COMPAZINE) 10 mg tablet Take 1 tablet by mouth every 6 hours as needed. HYDROcodone-acetaminophen (NORCO) 5-325 mg per tablet Take 2 tablets by mouth every 6 hours as needed. meloxicam (MOBIC) 15 mg tablet TAKE 1 TABLET BY MOUTH EVERY DAY metoprolol succinate ER (TOPROL XL) 25 mg 24 hr tablet Take 25 mg by mouth once daily. mv-mn/iron/folic acid/herb 190 (VITAMIN D3 COMPLETE ORAL) Take by mouth. DULoxetine (CYMBALTA) 60 mg capsule Take 1 capsule by mouth twice daily. clonazePAM (KLONOPIN) 1 mg tablet Take 1 tablet by mouth three times daily as needed for up to 30 days. docusate sodium (COLACE) 100 mg capsule TAKE 2 CAPSULES BY MOUTH TWICE A DAY senna (SENNA LAXATIVE) 8.6 mg tab Take 2 tablets by mouth twice daily. famciclovir (FAMVIR) 250 mg tablet TAKE 1 TABLET BY MOUTH TWICE A DAY gabapentin (NEURONTIN) 300 mg capsule TAKE 2 CAPSULES BY MOUTH THREE TIMES DAILY FOR 90 DAYS ZINC ORAL Take by mouth. tamsulosin ER (FLOMAX) 0.4 mg cap baclofen (LIORESAL) 10 mg tablet Take 10 mg by mouth three times daily. nitroglycerin sublingual (NITROQUICK) 0.4 mg SL tablet Dissolve 0.4 mg under the tongue every 5 minutes as needed. Aspirin 81 mg CpDR Take 81 mg by mouth once daily. atorvastatin 40 mg tablet Take 40 mg by mouth once daily. DOCOSAHEXANOIC ACID/EPA (FISH OIL ORAL) Take by mouth. ALLERGIES: Patient has no known allergies. PAST MEDICAL HISTORY: PAST MEDICAL HISTORY Diagnosis Date Anxiety Enlarged prostate HTN (hypertension) Hypercholesteremia Multiple myeloma, without mention of having achieved remission PAST SURGICAL HISTORY: PAST SURGICAL HISTORY Procedure Laterality Date REMOVAL OF LUNG,LOBECTOMY Right 04/24/2019 right upper lobe REVIEW OF SYSTEMS: As above. PHYSICAL EXAM: Vitals: BP 168/71 Pulse (!) 55 Temp 36.6 C (97.8 F) (Temporal) Resp 16 Ht 172.4 cm (5' 7.87 ) Wt 73.2 kg (161 lb 6.4 oz) SpO2 97% BMI 24.63 kg/m ECOG 1 Exam limited to gross visualization where appropriate due to COVID-19. Gen.: This is an age-appropriate patient in no acute distress. Head: Appears atraumatic with no visible lesions. Eyes: Pupils equally round and reactive to light, extraocular muscles are intact. Neck: Supple. Mouth: Masked. Respiratory: Appears to be respiring comfortably. Neurologic: Nonfocal to gross visualization. Alert and oriented 3. Psychiatric: No evidence of inappropriate anxiety or depression. Skin: Visible areas of skin without rash, lesions, wounds or petechiae. PATHOLOGY: 05/16/2022 EBUS biopsy ([facility]) Lymph node, station 10 R: glandular epithelium with atypia. Lymph node, station 10 R: Minute fragments of glandular epithelium with cartilage. RADIOLOGIC STUDIES: 04/28/2022 PET scan IMPRESSION: Head and Neck: * No evidence of FDG avid neoplastic process Chest: * 1.1 cm worsening right perihilar nodule concerning for neoplasm/recurrence. * No evidence of FDG avid thoracic lymphadenopathy, as described. Abdomen and pelvis: * No evidence of FDG avid neoplastic process Musculoskeletal: * No neoplastic hypermetabolic lesions 03/30/2022 CT chest IMPRESSION: 1. New 1.1 cm right lower lobe perihilar nodular opacity adjacent to surgical clips worrisome for neoplasm. Consider further evaluation via PET scan and/or other workup. 2. Mild reticulonodular opacities and groundglass opacities in right lower lobe and other 2-3 mm nodular opacities, stable since 08/30/21. 3. 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 4. Mild emphysematous changes of the lungs. 5. 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 10/11/2021 Skeletal survey ([facility]) No new lytic changes to suggest progression of myeloma 09/29/2021 CT chest IMPRESSION: 1. Mild reticulonodular opacities and groundglass opacities in right lower lobe slightly increased since 03/25/21. 2. Other 2-3 mm nodular opacities, stable. Consider continued interval follow-up. 3. 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 4. Mild emphysematous changes of the lungs. 5. 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 03/25/2021 CT chest IMPRESSION: Stable postoperative appearance to the chest as above. 12/27/2020 PET SCAN IMPRESSION: Head and Neck: * No hypermetabolic foci Chest: * New right hilar uptake compared to the 08/21/2018 preoperative PET/CT is favored to be secondary to an inflammatory process or postoperative changes. Recommend 3 month follow-up PET/CT and/or contrast-enhanced chest CT for confirmation. * Areas of nodular pleural thickening along the lateral right middle lobe and right major fissure are unchanged and without FDG avidity, likely postsurgical changes. Abdomen and pelvis: * No evidence of FDG avid neoplastic process Musculoskeletal: * No neoplastic hypermetabolic lesions 10/01/[address] IMPRESSION: 1. Overall stable CT of the chest. Stable postsurgical changes in keeping with right upper lobe lobectomy. 2. Stable nodular pleural plaques in the right upper lung zone. 3. Stable subpleural reticular change in both lower lobes likely representing scarring. 4. Stable right lower lobe 3 mm nodule. No new or enlarging nodules are seen. 06/16/2020 Plain film bone survey ([facility]) Impression: No lytic lesions to correspond with multiple myeloma. 04/06/2020 CT CHEST IMPRESSION: 1. No interval change since 11/14/2019. 2. Improved aeration of the right lung with interval resolution of previously noted right pneumothorax, pleural effusions and consolidative opacities. 3. Mild reticulonodular opacities in right lower lobe and 2-3 mm right lower lobe nodular opacity, stable. Consider continued interval follow-up. 4. Mild emphysematous changes of the lungs. 5. 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 02/20/2019 PET SCAN ([facility]) Solid spiculated 2.0 cm nodule in the right upper lobe posterior aspect abutting the oblique fissure. SUV 5.5. No lymphadenopathy. No evidence of metastatic disease. LABORATORY DATA: Hemoglobin (g/dL) Date Value 07/11/2022 12.4 07/07/2021 13.0 Hematocrit (%) Date Value 07/11/2022 35.8 07/07/2021 38.4 WBC (k/uL) Date Value 07/11/2022 3.19 07/07/2021 6.28 Platelet Count (k/uL) Date Value 07/11/2022 135 07/07/2021 262 ASSESSMENT/PLAN: 1. Malignant neoplasm of upper lobe of right lung (HCC) - ICD9: 162.3, ICD10: C34.11 (primary diagnosis) Stage IB (pT2a, N0, M0) adenocarcinoma of the right lung diagnosed April 2019. Status post right upper lobectomy 04/24/2019. Final pathology indicated invasive adenocarcinoma, acinar predominant type. Tumor size 3.1 cm, all margins negative. 9 resected lymph nodes negative. Adjuvant chemotherapy and radiation therapy not indicated, and routine postop surveillance recommended. For evaluation of right chest wall pain the patient underwent a PET scan on 12/27/2020. He was found to have a small right hilar lymph node of unclear significance, otherwise no evidence of disease. Follow-up chest CT 09/29/2021 stable. However, most recent chest CT 03/30/2022 revealed a new 1.1 cm right lower lobe perihilar nodular opacity adjacent to surgical clips worrisome for neoplasm. Repeat PET scan 04/28/2022 revealed uptake in the right perihilar lymph node concerning for neoplasm. On 05/16/2022 the patient underwent a bronchoscopy with EBUS (Dr. Balwinder Roberto, [facility] in [place]). Bronchoscopy revealed no endobronchial lesions. Transbronchial biopsy of a right hilar lymph node (10 R) was obtained, but pathology revealed only atypical epithelial cells and no evidence of malignancy. Repeat EBUS was performed a [facility] on 06/14/2022 with confirmed adenocarcinoma. PD-L1 <1% and lung hot spot negative for other targetable mutations. He started concurrent carboplatin and Taxol with radiation on 07/04/2022. He tolerated week 1 of chemotherapy with carboplatinum and Taxol. He is tolerating radiation. We will proceed with week 2 of chemotherapy with carboplatinum and Taxol. We will see him back in 1 week and if he is doing well will continue with week 3 of treatment. 2. 203.00 Multiple myeloma IgG lambda multiple myeloma initially diagnosed August of 2008. Status post first line therapy with Revlimid and Decadron. This was stopped after 6 months due to side effects (vasculitis). Subsequent treatment with Velcade, melphalan and prednisone x 7 cycles finished August 2010. He had a very good partial response. Since then the patient has been on Aredia, currently dosed at 30 mg every 12 weeks. In regards to myeloma the patient is clinically stable and his paraprotein remains stable. Next Aredia is due July 2022. Will plan for next week. We will monitor the patient's paraprotein, and we will discuss treatment options if/when his disease progresses. 3. 414.01 Coronary artery disease with history of myocardial infarction Acute IN October 2012. S/P coronary artery stent placement. Stable on current medications. Continue current medication per PCP/cardiology. 4. Neuropathy (HCC) - ICD9: 355.9, ICD10: G62.9 Chronic neuropathy, most likely secondary to underlying myeloma plus/minus other systemic condition. Stable on current medications (Neurontin 600 mg TID). 5. Squamous cell skin cancer - ICD9: 709.9, ICD10: L98.9 Squamous cell skin cancer involving the right side of nose removed August 2017. Continue follow-up and management per dermatology (Dr. De Guzman). 6. Chronic pain The patient has a long history of pain, multifactorial in etiology. In part his pain is related to underlying myeloma as well as recent thoracic surgery. The patient was seen by [facility] pain management in December 2020, and is much improved on current medications. He will continue his current medications and follow-up with [facility] pain management (Dr. Alberts) as scheduled. 7. Lesion of skin of right ear - ICD9: 380.9, ICD10: H61.91 New skin lesion. We will refer the patient back to dermatology. Amber Rodriguez APRN.JC I spent a total of 30 minutes on the date of the service which included preparing to see the patient, [id number] patient care, completing clinical documentation, obtaining and/or reviewing separately obtained history, performing a medically appropriate examination, counseling and educating the patient/family/caregiver, ordering medications, tests, or procedures, independently interpreting results (not separately reported), and communicating results to the patient/family/caregiver. documented in this encounter [facility] 07-07-2022 Miscellaneous Notes CYCLE 1/DAY 1 POST TREATMENT CALL Today's date: July 07, 2022 Treatment Regimen: Paclitaxel & Carboplatin C1D1 Date: 07/04/2021 Called patient to follow-up on symptom management. Spoke with patient. SYMPTOM ASSESSMENT Neuro: Headache : x 2 w/in the last month. No worse since starting treatment. Pt has preexisting neuropathy in his toes/feet. Currently controlled w/ gabapentin. No worse since starting treatment. CV/Resp: Shortness of breath w/ exertion. Increased slightly since treatment and Cough: Yes; productive brown sputum and occasional GI/: Appetite: no changes in appetite, appetite good and Fluid intake: Drinking 5-6 bottles of water per day. Pt denies nausea, vomiting, constipation, or diarrhea. No mouth sores. Integument: None Activity: Patient reported no changes in energy level, energy level good Do you need to take naps? No Pt states that he has been working around the house all week. Took down his Marco lights. Pain: No=0 (pain 0 on a scale of 0-10). Fever: No Chills: No Any new referrals needed? No Reinforced CURRENT treatment education based on current and anticipated symptoms. Discussed port/line care and patient verbalizes understanding: Yes Patient instructed to contact office or after hours Hematology/Oncology fellow for: temperature ? 100.4; questions or concerns. Patient verbalized understanding of when to seek medical attention and after hours number protocol. Rhona Ruiz RN documented in this encounter [facility] 07-04-2022 History of Present illness Narrative Radiation Oncology - On Treatment Review (OTR) Note PATIENT NAME: Raghavendra Heard PATIENT DIAGNOSIS: Recurrent non-small cell carcinoma, adenocarcinoma, with right upper lobe lung. PROTOCOL: no COURSE: definitive and concurrent chemotherapy Current dose: 200 cGy in 1 fx Planned dose: 6000 cGy in 30 fx SUBJECTIVE: No new problems. PHYSICAL EXAM: Area Assessed: Chest KPS: 100 General Appearance: Alert and oriented. No acute distress. Chest: No respiratory distress. Lungs clear to auscultation bilaterally. IMAGING/LAB RESULTS: None TOXICITY ASSESSMENT (CTC v4.0): Fatigue: grade 0 - No symptoms Weight loss: grade 0 - No weight loss Nausea:Grade 0 - No Symptoms Radiation Dermatitis:grade 0 - No symptoms Dysphagia: grade 0 - No symptoms Esophageal Pain: Grade 0 - No symptoms Dyspnea: grade 0 (No symptoms) Treatment chart checked: Yes Patient treatment site reviewed and verified:Yes Port films reviewed and current:Yes Medications started: None ASSESSMENT/PLAN: Patient starting radiation today. Plan of care and expectations again reviewed. Plan, MU calculations and qa report reviewed. Initial imaging including cone beam ct and verification reviewed and approved. First treatment given. Continue radiation as prescribed. Marisabel Saunders MD documented in this encounter [facility] 06-22-2022 Miscellaneous Notes Patient scheduled for 07/04. He has been notified he will be seeing Glenys that day and is in agreement to see Glenys. Deirdre Carranza Okay with me, but please make sure the patient understands the specifics. Glenys will see him officially, but I will be in the building. Dr. Becker and Amber both have full schedules that day. BRM: Are you okay with patient to be scheduled to see Glenys that day? Deirdre Carranza Agree, I would like for him to start his first treatment 07/04. Please reschedule. Dr. Becker: Nain was seen in the office today and had a SIM for upcoming lung radiation therapy. Dr. Saunders is planning to start radiation on 07/04/22. I spoke with ILENE Fung and she said Nain's chemo orders are entered already and he should ready to start tx. Karena/Emily: Will you please reschedule Nain's 07/06/22 appt to 07/04/22 and add him on for chemotherapy infusion.? Thanks Ariane Velasquez LPN documented in this encounter [facility] 06-22-2022 History of Present illness Narrative RAGHAVENDRA HEARD [id number] 06/22/2022 [facility] SIMULATION NOTE DATE OF SIMULATION: 06/22/2022 THERAPIST: Zuly Peters MACHINE: ClipClock DIAGNOSIS: Malignant neoplasm of upper lobe, right bronchus or lungC34.11 AREA: Lung CONTRAST: IV Consent in Epic: Yes PT INJECTED WITH 50CC OMNIPAQUE 300 VIA POWERPORT PATIENT POSITION: Supine. FIXATION DEVICE: In order to achieve accurate and reproducible treatments, the patient is immobilized with the orfit AIO system 50ML of OMNI 300 was administered via the A time-out was conducted and recorded by the therapist. CT scan was completed for target localization and planning. Field arrangement will be determined after plan has been completed. The patient is scheduled for a verification simulation on the treatment machine to ensure proper set-up and field arrangement is correct prior to the first treatment of primary and boost naidu if applicable. Patient education will be completed per nursing. Electronically Signed Santi Saunders M.D. / STEPHEN 2:47 PM documented in this encounter [facility] 06-22-2022 History of Present illness Narrative RAGHAVENDRA HEARD [id number] 06/22/2022 [facility] Department of Radiation Oncology Treatment Planning Note For reasons stated in the consult note, Raghavendra Heard is a candidate for radiation therapy. Based on review and interpretation of the relevant diagnostic studies together with the exam findings, Raghavendra Heard was simulated on 06/22/2022 at which time the target volume and/or requisite naidu were delineated, as indicated in the simulation note, to be treated according to the prescription. An ITV was created from all the phases of respiratory motion captured by the 4DCT image sets. Motion management allowed for design of patient specific planning target volume and reduced the radiation exposure to normal tissues. The treatment target and organs at risk were contoured on the simulation scan using the fused PET /. Special consideration to these and other structures was given in light of the potential for increased toxicities of combined chemoradiation. After reviewing multiple treatment plans with dosimetry, the best plan was approved to deliver the prescribed course of radiation to the target area using inverse planning to allow for the best isodose distribution, treating to the 98% isodose line with 6MV and 2 naidu. Custom MLC asym jaws for IMRT were the treatment devices used to shape/modify the beams. Limiting dose to normal tissue was confirmed upon review of the calculated dose volume histogram. IMRT planning was used because it best met the dose/volume constraints for the organs at risk for this patient, better than what could be achieved using conventional or 3D planning. The specific dose requirements for the PTV, organs at risk and dose-volume histograms are contained in this treatment plan and/or elsewhere in the medical record. A completed summary of this plan dated 06/29/22 incorporated herein by reference includes dose, beam arrangements, energy, blocking, isodose distribution, and/or ports and DVH. Electronically Signed Santi Saunders M.D. 21:50 PM documented in this encounter [facility] 06-16-2022 Miscellaneous Notes The following approved medication requests have been transmitted electronically. Requested Prescriptions Signed Prescriptions Disp Refills HYDROcodone-acetaminophen (NORCO) 5-325 mg per tablet 180 tablet 0 Sig: Take 2 tablets by mouth every 6 hours as needed. Authorizing Provider: AMBER RODRIGUEZ APRN.CNP Patient phones requesting refills as follows: Last script written on 05/15/22. Requested Prescriptions Pending Prescriptions Disp Refills HYDROcodone-acetaminophen (NORCO) 5-325 mg per tablet 180 tablet 0 Sig: Take 2 tablets by mouth every 6 hours as needed. Please review and advise. Rhona Ruiz RN documented in this encounter [facility] 06-16-2022 Miscellaneous Notes Signed. Amber Rodriguez APRN.CNP Pt's surgical path final. Order for PDL1 testing pended. Rhona Ruiz RN documented in this encounter [facility] 06-16-2022 Miscellaneous Notes Patient has been scheduled & notified of appointment. Roque Paz Roque: Will you please schedule Nain for a SIM treating lung with IV contrast with Dr. Saunders? Thanks Ariane Velasquez LPN documented in this encounter [facility] 06-16-2022 Miscellaneous Notes Clerical: Please see JENNIFER's instructions below. Rhona Ruiz RN ----- Message from Marisabel Saunders MD sent at 06/15/2022 4:20 PM EST ----- Please schedule simulation. ----- Message ----- From: Ja Becker MD Sent: 06/15/2022 12:10 PM EST To: Marisabel Saunders MD, Rhona Ruiz RN The patient was informed that his lung biopsy is positive. Please ask that [facility] send his tumor specimen for hotspot and PD-L1 analysis. Please schedule appointment with Dr. Saunders to plan radiation. I would like to see the patient back when he sees Dr. Jenkins to explain details of the chemotherapy. Patient has been scheduled & notified of appointment date & time. Roque Paz Clerical: Please schedule pt as noted in message below. Thanks BRM: Hot spot ordered and in process. Will order PDL1 when Surgical path is final. Rhona Ruiz RN ----- Message from aJ Becker MD sent at 06/15/2022 12:10 PM EST ----- The patient was informed that his lung biopsy is positive. Please ask that [facility] send his tumor specimen for hotspot and PD-L1 analysis. Please schedule appointment with Dr. Saunders to plan radiation. I would like to see the patient back when he sees Dr. Jenkins to explain details of the chemotherapy. 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 and 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 Staffing Anesthesiologist: Elvin Boo MD ACOUSTICAL CARPENTER: Tabitha Plasencia APRN.ACOUSTICAL CARPENTER Performed by: JACOBY Indications and Patient Condition Indications for airway management: anesthesia Preoxygenated: yes anesthesia circuit Patient position: sniffing Method: asleep Difficult Mask: No Final Airway Details Final airway type: supraglottic airway Number of attempts at approach: 1 Final Supraglottic Airway: IGEL Size 5 Seal Adequate: yes Airway not difficult SIGNATURE: Tabitha Plasencia APRN.ACOUSTICAL CARPENTER PATIENT NAME: Raghavendra Heard DATE: June 14, 2022 TIME: 9:59 AM CSN: [id number] [facility] 06-14-[address] Brewer reviewed the case in intradepartmental consultation with concurrence. See also related surgical pathology report [id number], which is currently pending. NGS lung + ALK is pending and results will be issued in an addendum to this report. [facility] Comment on above: Order Comment: Speci men Type: SPECIMEN OBTAINED BY ASPIRATION Ordering Facility: [facility] Address: [address] [place] [address] Performed By: #### L OZZIE, FSHTPA #### CLARITY KAREEM LIMS CLIA [id number] [facility] [id number] [place], [place] [id number] [place] #### [place] #### [facility] CLIA [id number] [place] OF [facility] 06-14-2022 Note [facility] Patient Name: Raghavendra Heard Procedure Date: 06/14/2022 9:11 AM Date of : 1945 Admit Type: Outpatient Age: 77 Room: [facility] Room 2 Gender: Male Attending MD: Henri Anderson MD Procedure: Bronchoscopy Indications: Adenopathy Providers: Henri Anderson MD (Doctor), Pricilla Parker RN (Nurse), Prerna Salinas, ILENE (Nurse), Marina Vivas RN (Assisting Nurse) Referring MD: Requesting Physician: Ja Becker Medicines: See the Anesthesia note for documentation of the administered medications Complications: No immediate complications Procedure: Pre-Anesthesia Assessment: - A History and Physical has been performed. Patient meds and allergies have been reviewed. The risks and benefits of the procedure and the sedation options and risks were discussed with the patient. All questions were answered and informed consent was obtained. Patient identification and proposed procedure were verified prior to the procedure by the physician, the nurse and the anesthesiologist in the procedure room. Mental Status Examination: normal. Airway Examination: normal oropharyngeal airway. Respiratory Examination: clear to auscultation. CV Examination: regular rate and rhythm. ASA Grade Assessment: III - A patient with severe systemic disease. After reviewing the risks and benefits, the patient was deemed in satisfactory condition to undergo the procedure. The anesthesia plan was to use general anesthesia. Immediately prior to administration of medications, the patient was re-assessed for adequacy to receive sedatives. The heart rate, respiratory rate, oxygen saturations, blood pressure, adequacy of pulmonary ventilation, and response to care were monitored throughout the procedure. The physical status of the patient was re-assessed after the procedure. After obtaining informed consent, the Bronchoscope was introduced through the mouth, via laryngeal mask airway and advanced to the tracheobronchial tree. the Bronchoscope was introduced through the mouth, via laryngeal mask airway and advanced to the tracheobronchial tree. The procedure was accomplished without difficulty. The patient tolerated the procedure well. Findings: The laryngeal mask airway is in good position. The vocal cords appear normal. The subglottic space is normal. The trachea is of normal caliber. The isabella is sharp. The tracheobronchial tree was examined to at least the first subsegmental level. Bronchial mucosa and anatomy are normal; there are no endobronchial lesions, and no secretions. The RUL stump appeared normal. There was an area of redundant tissue at the RUL bronchus, this was removed with forceps (see below). An endobronchial biopsy of a lesion (redundant tissue) was performed in the right upper lobe using a forceps and sent for histopathology examination. One sample was obtained. Once the airway inspection was completed, the standard bronchoscope was withdrawn and the convex probe endobronchial ultrasound (EBUS) bronchoscope was inserted through the same route. Lymph Nodes: The following lymph nodes were evaluated and/or sampled. Lymph node sizing was performed via endobronchial ultrasound. Sampling by transbronchial needle aspiration was also performed using an Olympus ViziShot 22 gauge needle and sent for routine cytology. - The 10R (hilar) node was 10 mm by EBUS. Six samples with the needle were obtained. Lymph Nodes: Rapid On-Site Evaluation (KOFFI): Preliminary cytology was suggestive of malignancy (final results are pending) in the right hilar region (level 10R). Impression: - Lymph node sizing and sampling was performed. - An endobronchial biopsy was performed. - Rapid On-Site Evaluation (KOFFI): Preliminary cytology was suggestive of malignancy in node level 10R (final results are pending). Recommendation: - The patient will be observed post-procedure, until all discharge criteria are met. Attending Participation: I personally performed the entire procedure. Dr. Henri Anderson MD 06/14/2022 10:38:57 AM This report has been signed electronically by Henri Anderson MD Number of Addenda: 0 Note Initiated On: 06/14/2022 9:11 AM Procedure Start: 9:46:38 AM Procedure End: 10:14:41 AM [facility] 06-13-2022 Miscellaneous Notes Spoke with the patient confirmed 8 am arrival time for 9 am appointment at [facility] Michael Booker documented in this encounter [facility] 06-12-2022 History of Present illness Narrative EKG performed as ordered. Electronically sent to [facility] main. Placed paper copy in scan folder. Marie Gomez documented in this encounter [facility] 06-05-2022 Note HNO ID: [id number] Author: Henri Anderson MD Service: ? Author Type: Physician Type: Progress Notes Filed: 06/05/2022 11:46 AM Note Text: VIRTUAL VISIT PROGRESS NOTE This is a virtual visit using Makoondi video visit. It required patient-provider interaction for the medical decision making as documented below. Raghavendra Heard is a 77 year old male seen for abnormal PET. Patient referred by Dr. Becker, my findings and recommendations will be communicated to him via shared electronic medical record. The patient has a past history of RUL lung cancer, early stage, treated with RUL lobectomy (done in [facility]) in 2019. Follow up scans had been done, and over the past few years a small area in the right hilum has been developing, now with progressive FDG uptake, SUV up to 9. He had a biopsy done in [place] of this, but EBUS-TBNA showed only atypical epithelial cells. Patient otherwise feels well, no cough or hemoptysis, no dyspnea, no weight loss or fatigue. HISTORY REVIEWED (electronic chart updated): PAST MEDICAL HISTORY Diagnosis Date Anxiety Enlarged prostate HTN (hypertension) Hypercholesteremia Multiple myeloma, without mention of having achieved remission PAST SURGICAL HISTORY Procedure Laterality Date REMOVAL OF LUNG,LOBECTOMY Right 04/24/2019 right upper lobe FAMILY HISTORY Problem Relation Age of Onset other (Tonsilar cancer) Sister Social History Tobacco Use Smoking status: Former Packs/day: 1.00 Years: 50.00 Pack years: 50.00 Types: Cigarettes Passive exposure: Past Smokeless tobacco: Never Tobacco comments: currently taking Chantix Vaping Use Vaping Use: Never used Substance Use Topics Alcohol use: Not Currently Drug use: Never Current Outpatient Medications Medication Sig meloxicam (MOBIC) 15 mg tablet TAKE 1 TABLET BY MOUTH EVERY DAY HYDROcodone-acetaminophen (NORCO) 5-325 mg per tablet Take 2 tablets by mouth every 6 hours as needed. ondansetron (ZOFRAN) 8 mg tablet Take 1 tablet by mouth every 8 hours as needed for nausea/vomiting. prochlorperazine (COMPAZINE) 10 mg tablet Take 1 tablet by mouth every 6 hours as needed. metoprolol succinate ER (TOPROL XL) 25 mg 24 hr tablet Take 25 mg by mouth once daily. mv-mn/iron/folic acid/herb 190 (VITAMIN D3 COMPLETE ORAL) Take by mouth. DULoxetine (CYMBALTA) 60 mg capsule Take 1 capsule by mouth twice daily. clonazePAM (KLONOPIN) 1 mg tablet Take 1 tablet by mouth three times daily as needed for up to 30 days. docusate sodium (COLACE) 100 mg capsule TAKE 2 CAPSULES BY MOUTH TWICE A DAY senna (SENNA LAXATIVE) 8.6 mg tab Take 2 tablets by mouth twice daily. famciclovir (FAMVIR) 250 mg tablet TAKE 1 TABLET BY MOUTH TWICE A DAY gabapentin (NEURONTIN) 300 mg capsule TAKE 2 CAPSULES BY MOUTH THREE TIMES DAILY FOR 90 DAYS ZINC ORAL Take by mouth. melatonin 10 mg cap TAKE 1 CAPSULE BY MOUTH EVERYDAY AT BEDTIME tamsulosin ER (FLOMAX) 0.4 mg cap baclofen (LIORESAL) 10 mg tablet Take 10 mg by mouth three times daily. calcium carbonate (CALCIUM 600) 600 mg calcium (1,500 mg) tab Take 600 mg by mouth. naproxen sodium (ALEVE ORAL) Take by mouth. nitroglycerin sublingual (NITROQUICK) 0.4 mg SL tablet Dissolve 0.4 mg under the tongue every 5 minutes as needed. Aspirin 81 mg CpDR Take 81 mg by mouth once daily. atorvastatin 40 mg tablet Take 40 mg by mouth once daily. DOCOSAHEXANOIC ACID/EPA (FISH OIL ORAL) Take by mouth. No current facility-administered medications for this visit. ALLERGIES No Known Allergies REVIEW OF SYSTEMS: GENERAL: feeling well without fatigue, no recent change in weight HEENT: denies SHAFFER, change in hearing or vision, no other ENT complaints NECK: denies swelling or pain in neck RESPIRATORY: no cough, no wheezing or shortness of breath CARDIOVASCULAR: no chest pain, no palpitations, no leg swelling GI: normal appetite, tolerating PO well, BMs normal, and no abdominal pain : urination is normal MUSCULOSKELETAL: denies any painful or swollen joints, no muscle aches SKIN: no rash PSYCH: denies depressed or anxious mood, sleep is normal HEMATOLOGY/LYMPHOLOGY: negative for prolonged bleeding, no swollen lymph nodes ENDOCRINE: denies cold/heat intolerance, denies polyuria or polydipsia, no goiter NEURO: no numbness or paresthesias and no weakness of the extremities All other ROS: negative PHYSICAL EXAMINATION: VIDEO EXAM: (if completed, performed via video enabled technology) GENERAL: alert and appropriate, in no distress, well-hydrated, well nourished, and happy, smiling, interactive SKIN: no rash noted HEAD: normocephalic, no abnormality or lesion noted EYES: no injection and visual acuity is grossly normal EARS: hearing grossly normal NOSE: external nose normal without rhinorrhea OROPHARYNX: moist mucus membranes NECK: full ROM, no cervical LNs noted RESPIRATORY: breathing non-labored CHEST: equal chest rise with nor (more content not included)... [facility] 06-05-2022 History of Present illness Narrative VIRTUAL VISIT PROGRESS NOTE This is a virtual visit using Makoondi video visit. It required patient-provider interaction for the medical decision making as documented below. Raghavendra Heard is a 77 year old male seen for abnormal PET. Patient referred by Dr. Becker, my findings and recommendations will be communicated to him via shared electronic medical record. The patient has a past history of RUL lung cancer, early stage, treated with RUL lobectomy (done in [facility]) in 2019. Follow up scans had been done, and over the past few years a small area in the right hilum has been developing, now with progressive FDG uptake, SUV up to 9. He had a biopsy done in [place] of this, but EBUS-TBNA showed only atypical epithelial cells. Patient otherwise feels well, no cough or hemoptysis, no dyspnea, no weight loss or fatigue. HISTORY REVIEWED (electronic chart updated): PAST MEDICAL HISTORY Diagnosis Date Anxiety Enlarged prostate HTN (hypertension) Hypercholesteremia Multiple myeloma, without mention of having achieved remission PAST SURGICAL HISTORY Procedure Laterality Date REMOVAL OF LUNG,LOBECTOMY Right 04/24/2019 right upper lobe FAMILY HISTORY Problem Relation Age of Onset other (Tonsilar cancer) Sister Social History Tobacco Use Smoking status: Former Packs/day: 1.00 Years: 50.00 Pack years: 50.00 Types: Cigarettes Passive exposure: Past Smokeless tobacco: Never Tobacco comments: currently taking Chantix Vaping Use Vaping Use: Never used Substance Use Topics Alcohol use: Not Currently Drug use: Never Current Outpatient Medications Medication Sig meloxicam (MOBIC) 15 mg tablet TAKE 1 TABLET BY MOUTH EVERY DAY HYDROcodone-acetaminophen (NORCO) 5-325 mg per tablet Take 2 tablets by mouth every 6 hours as needed. ondansetron (ZOFRAN) 8 mg tablet Take 1 tablet by mouth every 8 hours as needed for nausea/vomiting. prochlorperazine (COMPAZINE) 10 mg tablet Take 1 tablet by mouth every 6 hours as needed. metoprolol succinate ER (TOPROL XL) 25 mg 24 hr tablet Take 25 mg by mouth once daily. mv-mn/iron/folic acid/herb 190 (VITAMIN D3 COMPLETE ORAL) Take by mouth. DULoxetine (CYMBALTA) 60 mg capsule Take 1 capsule by mouth twice daily. clonazePAM (KLONOPIN) 1 mg tablet Take 1 tablet by mouth three times daily as needed for up to 30 days. docusate sodium (COLACE) 100 mg capsule TAKE 2 CAPSULES BY MOUTH TWICE A DAY senna (SENNA LAXATIVE) 8.6 mg tab Take 2 tablets by mouth twice daily. famciclovir (FAMVIR) 250 mg tablet TAKE 1 TABLET BY MOUTH TWICE A DAY gabapentin (NEURONTIN) 300 mg capsule TAKE 2 CAPSULES BY MOUTH THREE TIMES DAILY FOR 90 DAYS ZINC ORAL Take by mouth. melatonin 10 mg cap TAKE 1 CAPSULE BY MOUTH EVERYDAY AT BEDTIME tamsulosin ER (FLOMAX) 0.4 mg cap baclofen (LIORESAL) 10 mg tablet Take 10 mg by mouth three times daily. calcium carbonate (CALCIUM 600) 600 mg calcium (1,500 mg) tab Take 600 mg by mouth. naproxen sodium (ALEVE ORAL) Take by mouth. nitroglycerin sublingual (NITROQUICK) 0.4 mg SL tablet Dissolve 0.4 mg under the tongue every 5 minutes as needed. Aspirin 81 mg CpDR Take 81 mg by mouth once daily. atorvastatin 40 mg tablet Take 40 mg by mouth once daily. DOCOSAHEXANOIC ACID/EPA (FISH OIL ORAL) Take by mouth. No current facility-administered medications for this visit. ALLERGIES No Known Allergies REVIEW OF SYSTEMS: GENERAL: feeling well without fatigue, no recent change in weight HEENT: denies SHAFFER, change in hearing or vision, no other ENT complaints NECK: denies swelling or pain in neck RESPIRATORY: no cough, no wheezing or shortness of breath CARDIOVASCULAR: no chest pain, no palpitations, no leg swelling GI: normal appetite, tolerating PO well, BMs normal, and no abdominal pain : urination is normal MUSCULOSKELETAL: denies any painful or swollen joints, no muscle aches SKIN: no rash PSYCH: denies depressed or anxious mood, sleep is normal HEMATOLOGY/LYMPHOLOGY: negative for prolonged bleeding, no swollen lymph nodes ENDOCRINE: denies cold/heat intolerance, denies polyuria or polydipsia, no goiter NEURO: no numbness or paresthesias and no weakness of the extremities All other ROS: negative PHYSICAL EXAMINATION: VIDEO EXAM: (if completed, performed via video enabled technology) GENERAL: alert and appropriate, in no distress, well-hydrated, well nourished, and happy, smiling, interactive SKIN: no rash noted HEAD: normocephalic, no abnormality or lesion noted EYES: no injection and visual acuity is grossly normal EARS: hearing grossly normal NOSE: external nose normal without rhinorrhea OROPHARYNX: moist mucus membranes NECK: full ROM, no cervical LNs noted RESPIRATORY: breathing non-labored CHEST: equal chest rise with normal respiratory effort ABDOMEN: soft and non-tender BACK: back normal in appearance, spine with FROM EXTREMITIES: No edema NEUROLOGIC: no obvious deficit ASSESSMENT/PLAN: PET avid nodule. I reviewed the most recent PET-CT, and compared to prior scans and imaging dating back to 2019. There is indeed an area of FDG uptake in the 10R/11R region, just below what appears to be a heavily calcified 4R node. This is in the area of the RUL lobectomy stump, so this could either be a delmar recurrence, or stump/soft tissue recurrence. Surgery in late 2019 revealed a 3.1cm primary, but negative margins and resected nodes negative. Concern is obviously for recurrence. Will re-do EBUS with on site cytology to obtain more tissue for analysis. History lung cancer (see above) Multiple myeloma. In remission Hx CAD, S/P CABG 2012. Stable, managed by cardiology History neuropathy, managed by Dr. Becker. I spent a total of 45 minutes on the date of the service which included preparing to see the patient, [id number] patient care, completing clinical documentation, obtaining and/or reviewing separately obtained history, performing a medically appropriate examination, counseling and educating the patient/family/caregiver, ordering medications, tests, or procedures, communicating with other HCPs (not separately reported), independently interpreting results (not separately reported), communicating results to the patient/family/caregiver, and care coordination (not separately reported) Henri Anderson MD June 05, 2022 documented in this encounter [facility] 06-02-2022 Miscellaneous Notes Contacted patient, name and verified. Advised patient to consult prescribing physician and/or surgeon for Asprin recommendations. Advised to review msg for these recommendations. Patient aware and agreeable. documented in this encounter [facility] 06-01-[address] Anderson is working on getting him scheduled. Dr Becker is referring Raghavendra Heard for Ebus. Thank you . documented in this encounter [facility] 05-30-2022 History of Present illness Narrative PATIENT NAME: Raghavendra Heard DATE: 05/30/2022 PRIMARY CARE PHYSICIAN: Dr. Prerna Grissom II OTHER PHYSICIANS: Dr. Toledo (Cardiology [facility]), Dr. Zhang, Dr. Hernández (Wardrobe Manager in [place]), Dr. Stinson (Thoracic Surgery in [place]), Dr. Alberts Portions of this encounter note have been copied from my note from 05/02/2022 and has been updated where appropriate, and reflect my current medical decision making from today. CC: This is a 77 year old male with a history of multiple myeloma and lung cancer with suspected local recurrence, seen for for scheduled follow-up. INTERIM HISTORY: Since the patient's last visit here he underwent a bronchoscopy with EBUS on 05/16/2022 (Dr. Balwinder Roberto, [facility] in [place]). Bronchoscopy revealed no endobronchial lesions. Transbronchial biopsy of a right hilar lymph node (10 R) was obtained, but pathology revealed only atypical epithelial cells and no evidence of malignancy. Clinically the patient feels about the same. Chronic pain is controlled with current medications. He denies any significant cough, shortness of breath or pulmonary symptoms. MEDICATIONS: meloxicam (MOBIC) 15 mg tablet TAKE 1 TABLET BY MOUTH EVERY DAY HYDROcodone-acetaminophen (NORCO) 5-325 mg per tablet Take 2 tablets by mouth every 6 hours as needed. ondansetron (ZOFRAN) 8 mg tablet Take 1 tablet by mouth every 8 hours as needed for nausea/vomiting. prochlorperazine (COMPAZINE) 10 mg tablet Take 1 tablet by mouth every 6 hours as needed. metoprolol succinate ER (TOPROL XL) 25 mg 24 hr tablet Take 25 mg by mouth once daily. mv-mn/iron/folic acid/herb 190 (VITAMIN D3 COMPLETE ORAL) Take by mouth. DULoxetine (CYMBALTA) 60 mg capsule Take 1 capsule by mouth twice daily. clonazePAM (KLONOPIN) 1 mg tablet Take 1 tablet by mouth three times daily as needed for up to 30 days. docusate sodium (COLACE) 100 mg capsule TAKE 2 CAPSULES BY MOUTH TWICE A DAY senna (SENNA LAXATIVE) 8.6 mg tab Take 2 tablets by mouth twice daily. famciclovir (FAMVIR) 250 mg tablet TAKE 1 TABLET BY MOUTH TWICE A DAY gabapentin (NEURONTIN) 300 mg capsule TAKE 2 CAPSULES BY MOUTH THREE TIMES DAILY FOR 90 DAYS ZINC ORAL Take by mouth. melatonin 10 mg cap TAKE 1 CAPSULE BY MOUTH EVERYDAY AT BEDTIME tamsulosin ER (FLOMAX) 0.4 mg cap baclofen (LIORESAL) 10 mg tablet Take 10 mg by mouth three times daily. calcium carbonate (CALCIUM 600) 600 mg calcium (1,500 mg) tab Take 600 mg by mouth. naproxen sodium (ALEVE ORAL) Take by mouth. (Patient not taking: No sig reported) nitroglycerin sublingual (NITROQUICK) 0.4 mg SL tablet Dissolve 0.4 mg under the tongue every 5 minutes as needed. Aspirin 81 mg CpDR Take 81 mg by mouth once daily. atorvastatin 40 mg tablet Take 40 mg by mouth once daily. DOCOSAHEXANOIC ACID/EPA (FISH OIL ORAL) Take by mouth. ALLERGIES: Patient has no known allergies. PAST MEDICAL HISTORY: PAST MEDICAL HISTORY Diagnosis Date Anxiety Enlarged prostate HTN (hypertension) Hypercholesteremia Multiple myeloma, without mention of having achieved remission PAST SURGICAL HISTORY: PAST SURGICAL HISTORY Procedure Laterality Date REMOVAL OF LUNG,LOBECTOMY Right 04/24/2019 right upper lobe REVIEW OF SYSTEMS: As above. PHYSICAL EXAM: Vitals: BP 150/68 Pulse (!) 50 Temp 36.2 C (97.1 F) (Temporal) Resp 18 Ht 172.7 cm (5' 7.99 ) Wt 73.1 kg (161 lb 3.2 oz) SpO2 97% BMI 24.52 kg/m ECOG 1 General appearance: Well appearing, alert, in no acute distress, well-hydrated, well nourished. Skin: Lesion to nares was removed by derm- healed well. Head: Normal. Eyes: Anicteric sclera. Pupils are equally round and reactive to light. Extraocular movements are intact. Ears: Negative findings. External ears normal to inspection and palpation. Oropharynx: Negative. Neck: Supple, no adenopathy; thyroid symmetric, normal size. Lymph Nodes: No Submandibular, cervical, supraclavicular, axillary or inguinal lymphadenopathy present. Back: No tenderness to palpation. Lungs: Clear to auscultation, no wheezing or rhonchi. Surgical wounds on the lateral right chest wall well-healed with no signs of infection. Heart: Negative. RRR without murmur, gallop, or rubs. No ectopy. Abdomen: Normal abdominal exam. Abdomen soft, non-tender. Bowel sounds normal. No masses, organomegaly. Rectal: Not done. Extremities: Extremities normal. No deformities, edema, or skin discoloration. Good capillary refill. Musculoskeletal: No joint swelling, deformity, or tenderness. Peripheral pulses: Normal. PATHOLOGY: 05/16/2022 EBUS biopsy ([facility]) Lymph node, station 10 R: glandular epithelium with atypia. Lymph node, station 10 R: Minute fragments of glandular epithelium with cartilage. RADIOLOGIC STUDIES: 04/28/2022 PET scan IMPRESSION: Head and Neck: * No evidence of FDG avid neoplastic process Chest: * 1.1 cm worsening right perihilar nodule concerning for neoplasm/recurrence. * No evidence of FDG avid thoracic lymphadenopathy, as described. Abdomen and pelvis: * No evidence of FDG avid neoplastic process Musculoskeletal: * No neoplastic hypermetabolic lesions 03/30/2022 CT chest IMPRESSION: 1. New 1.1 cm right lower lobe perihilar nodular opacity adjacent to surgical clips worrisome for neoplasm. Consider further evaluation via PET scan and/or other workup. 2. Mild reticulonodular opacities and groundglass opacities in right lower lobe and other 2-3 mm nodular opacities, stable since 08/30/21. 3. 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 4. Mild emphysematous changes of the lungs. 5. 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 10/11/2021 Skeletal survey ([facility]) No new lytic changes to suggest progression of myeloma 09/29/2021 CT chest IMPRESSION: 1. Mild reticulonodular opacities and groundglass opacities in right lower lobe slightly increased since 03/25/21. 2. Other 2-3 mm nodular opacities, stable. Consider continued interval follow-up. 3. 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 4. Mild emphysematous changes of the lungs. 5. 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 03/25/2021 CT chest IMPRESSION: Stable postoperative appearance to the chest as above. 12/27/2020 PET SCAN IMPRESSION: Head and Neck: * No hypermetabolic foci Chest: * New right hilar uptake compared to the 08/21/2018 preoperative PET/CT is favored to be secondary to an inflammatory process or postoperative changes. Recommend 3 month follow-up PET/CT and/or contrast-enhanced chest CT for confirmation. * Areas of nodular pleural thickening along the lateral right middle lobe and right major fissure are unchanged and without FDG avidity, likely postsurgical changes. Abdomen and pelvis: * No evidence of FDG avid neoplastic process Musculoskeletal: * No neoplastic hypermetabolic lesions 10/01/[address] IMPRESSION: 1. Overall stable CT of the chest. Stable postsurgical changes in keeping with right upper lobe lobectomy. 2. Stable nodular pleural plaques in the right upper lung zone. 3. Stable subpleural reticular change in both lower lobes likely representing scarring. 4. Stable right lower lobe 3 mm nodule. No new or enlarging nodules are seen. 06/16/2020 Plain film bone survey ([facility]) Impression: No lytic lesions to correspond with multiple myeloma. 04/06/2020 CT CHEST IMPRESSION: 1. No interval change since 11/14/2019. 2. Improved aeration of the right lung with interval resolution of previously noted right pneumothorax, pleural effusions and consolidative opacities. 3. Mild reticulonodular opacities in right lower lobe and 2-3 mm right lower lobe nodular opacity, stable. Consider continued interval follow-up. 4. Mild emphysematous changes of the lungs. 5. 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 02/20/2019 PET SCAN ([facility]) Solid spiculated 2.0 cm nodule in the right upper lobe posterior aspect abutting the oblique fissure. SUV 5.5. No lymphadenopathy. No evidence of metastatic disease. LABORATORY DATA: Hemoglobin (g/dL) Date Value 05/18/2022 11.8 07/07/2021 13.0 Hematocrit (%) Date Value 05/18/2022 35.1 07/07/2021 38.4 WBC (k/uL) Date Value 05/18/2022 6.32 07/07/2021 6.28 Platelet Count (k/uL) Date Value 05/18/2022 177 07/07/2021 262 ASSESSMENT/PLAN: 1. Malignant neoplasm of upper lobe of right lung (HCC) - ICD9: 162.3, ICD10: C34.11 (primary diagnosis) Stage IB (pT2a, N0, M0) adenocarcinoma of the right lung diagnosed April 2019. Status post right upper lobectomy 04/24/2019. Final pathology indicated invasive adenocarcinoma, acinar predominant type. Tumor size 3.1 cm, all margins negative. 9 resected lymph nodes negative. Adjuvant chemotherapy and radiation therapy not indicated, and routine postop surveillance recommended. For evaluation of right chest wall pain the patient underwent a PET scan on 12/27/2020. He was found to have a small right hilar lymph node of unclear significance, otherwise no evidence of disease. Follow-up chest CT 09/29/2021 stable. However, most recent chest CT 03/30/2022 revealed a new 1.1 cm right lower lobe perihilar nodular opacity adjacent to surgical clips worrisome for neoplasm. Repeat PET scan 04/28/2022 revealed uptake in the right perihilar lymph node concerning for neoplasm. On 05/16/2022 the patient underwent a bronchoscopy with EBUS (Dr. Balwinder Roberto, [facility] in [place]). Bronchoscopy revealed no endobronchial lesions. Transbronchial biopsy of a right hilar lymph node (10 R) was obtained, but pathology revealed only atypical epithelial cells and no evidence of malignancy. Options for management were discussed at length with the patient and his , and we have elected to refer to [facility] pulmonary to evaluate for a repeat EBUS biopsy of the abnormal right hilar lymph node. We will refer to Dr. Mike's group in [place]. I will schedule a temporary return visit here in 2 weeks for follow-up. If the biopsy confirms recurrent adenocarcinoma we will proceed with definitive chemoradiation, to include low-dose weekly carboplatin/Taxol concurrent with radiation. 2. 203.00 Multiple myeloma IgG lambda multiple myeloma initially diagnosed August of 2008. Status post first line therapy with Revlimid and Decadron. This was stopped after 6 months due to side effects (vasculitis). Subsequent treatment with Velcade, melphalan and prednisone x 7 cycles finished August 2010. He had a very good partial response. Since then the patient has been on Aredia, currently dosed at 30 mg every 12 weeks. In regards to myeloma the patient is clinically stable and his paraprotein remains stable. Next Aredia is due irradiated due July 2022. We will monitor the patient's paraprotein, and we will discuss treatment options if/when his disease progresses. 3. 414.01 Coronary artery disease with history of myocardial infarction Acute IN October 2012. S/P coronary artery stent placement. Stable on current medications. Continue current medication per PCP/cardiology. 4. Neuropathy (HCC) - ICD9: 355.9, ICD10: G62.9 Chronic neuropathy, most likely secondary to underlying myeloma plus/minus other systemic condition. Stable on current medications (Neurontin 600 mg TID). 5. Squamous cell skin cancer - ICD9: 709.9, ICD10: L98.9 Squamous cell skin cancer involving the right side of nose removed August 2017. Continue follow-up and management per dermatology (Dr. De Guzman). 5. Chronic pain The patient has a long history of pain, multifactorial in etiology. In part his pain is related to underlying myeloma as well as recent thoracic surgery. The patient was seen by [facility] pain management in December 2020, and is much improved on current medications. He will continue his current medications and follow-up with [facility] pain management (Dr. Alberts) as scheduled. Ja Becker MD documented in this encounter [facility] 05-22-2022 Miscellaneous Notes Patient coming in on Sunday05/30/22 for follow up with labs. Please add lab orders if needed. Thanks, Skylar Gaspar MA documented in this encounter [facility] 05-09-2022 Miscellaneous Notes EBUS has not yet been scheduled; However, Dr. Newman is reviewing the images today. Per the office they are in the process of scheduling & they will contact patient. Roque Paz documented in this encounter [facility] 05-09-2022 History of Present illness Narrative Radiation Oncology - New Patient/Consult Note PATIENT NAME: Raghavendra Heard PATIENT REQUESTING PROVIDER: Dr. Becker DIAGNOSIS: 77 year old male with adenocarcinoma of the right upper lung, Stage IB (pT2a, N0, M0) diagnosed April 2019. Status post right upper lobectomy 04/24/2019, now with evidence of recurrence versus new primary right lower lung and hilar region. HPI: 77 year old male who presents with above diagnosis, for an opinion regarding the role of radiation therapy in the management of the patient's disease. Final recommendations will be communicated back to the requesting physician by way of the shared medical record, or letter to requesting physician via US mail. Patient had been doing well after prior resection for stage Ib non-small cell carcinoma of the right upper lung. Initial wedge biopsy demonstrating a 3.1 cm adenocarcinoma, acinar predominant without visceral pleural invasion. Completion right upper lobeectomy in the same setting without residual carcinoma. Margins uninvolved. 9 lymph nodes removed without evidence of involvement. He did not require received adjuvant therapy. He was undergoing surveillance CT scans, follow-up scan in August without remarkable findings however follow-up CT scan in March showing a new right lower lobe perihilar nodular area that was adjacent to surgical clips and suspicious as noted below. CT chest 03/30/2022: 1. New 1.1 cm right lower lobe perihilar nodular opacity adjacent to surgical clips worrisome for neoplasm. Consider further evaluation via PET scan and/or other workup. 2. Mild reticulonodular opacities and groundglass opacities in right lower lobe and other 2-3 mm nodular opacities, stable since 08/30/21. 3. 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 4. Mild emphysematous changes of the lungs. 5. 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 He underwent PET scan as noted below which showed increased uptake in the perihilar nodule area as seen on CT worrisome for malignancy. PET/CT 04/20/2022: Head and Neck: * No evidence of FDG avid neoplastic process Chest: * 1.1 cm worsening right perihilar nodule concerning for neoplasm/recurrence. * No evidence of FDG avid thoracic lymphadenopathy, as described. Abdomen and pelvis: * No evidence of FDG avid neoplastic process Musculoskeletal: * No neoplastic hypermetabolic lesions Focused ROS: Fatigue: mild Weight loss: None Appetite: excellent Nausea: no Shortness of breath: No Cough: Minimal Hemoptysis: No Dysphagia: No Pain with swallowing: No ALLERGIES No Known Allergies MEDICATIONS: metoprolol succinate ER (TOPROL XL) 25 mg 24 hr tablet Take 25 mg by mouth once daily. mv-mn/iron/folic acid/herb 190 (VITAMIN D3 COMPLETE ORAL) Take by mouth. DULoxetine (CYMBALTA) 60 mg capsule Take 1 capsule by mouth twice daily. clonazePAM (KLONOPIN) 1 mg tablet Take 1 tablet by mouth three times daily as needed for up to 30 days. HYDROcodone-acetaminophen (NORCO) 5-325 mg per tablet Take 2 tablets by mouth every 6 hours as needed. docusate sodium (COLACE) 100 mg capsule TAKE 2 CAPSULES BY MOUTH TWICE A DAY meloxicam (MOBIC) 15 mg tablet Take 1 tablet by mouth once daily. senna (SENNA LAXATIVE) 8.6 mg tab Take 2 tablets by mouth twice daily. famciclovir (FAMVIR) 250 mg tablet TAKE 1 TABLET BY MOUTH TWICE A DAY gabapentin (NEURONTIN) 300 mg capsule TAKE 2 CAPSULES BY MOUTH THREE TIMES DAILY FOR 90 DAYS ZINC ORAL Take by mouth. melatonin 10 mg cap TAKE 1 CAPSULE BY MOUTH EVERYDAY AT BEDTIME tamsulosin ER (FLOMAX) 0.4 mg cap baclofen (LIORESAL) 10 mg tablet Take 10 mg by mouth three times daily. calcium carbonate (CALCIUM 600) 600 mg calcium (1,500 mg) tab Take 600 mg by mouth. Aspirin 81 mg CpDR Take 81 mg by mouth once daily. atorvastatin 40 mg tablet Take 40 mg by mouth once daily. DOCOSAHEXANOIC ACID/EPA (FISH OIL ORAL) Take by mouth. ondansetron (ZOFRAN) 8 mg tablet Take 1 tablet by mouth every 8 hours as needed for nausea/vomiting. prochlorperazine (COMPAZINE) 10 mg tablet Take 1 tablet by mouth every 6 hours as needed. naproxen sodium (ALEVE ORAL) Take by mouth. (Patient not taking: No sig reported) nitroglycerin sublingual (NITROQUICK) 0.4 mg SL tablet Dissolve 0.4 mg under the tongue every 5 minutes as needed. PAST MEDICAL HISTORY Diagnosis Date Anxiety Enlarged prostate HTN (hypertension) Hypercholesteremia Multiple myeloma, without mention of having achieved remission Prior radiation therapy, collagen vascular disease, or inflammatory bowel disease: No PAST SURGICAL HISTORY Procedure Laterality Date REMOVAL OF LUNG,LOBECTOMY Right 04/24/2019 right upper lobe FAMILY HISTORY Problem Relation Age of Onset other (Tonsilar cancer) Sister Social History Tobacco Use Smoking status: Former Packs/day: 1.00 Years: 50.00 Pack years: 50.00 Types: Cigarettes Passive exposure: Past Smokeless tobacco: Never Tobacco comments: currently taking Chantix Vaping Use Vaping Use: Never used Substance Use Topics Alcohol use: Not Currently Drug use: Never COMPLETE REVIEW OF SYSTEMS: GENERAL: feeling well without fatigue, no recent change in weight NECK: denies swelling or pain in neck RESPIRATORY: See HPI CARDIOVASCULAR: See HPI GI: normal appetite, tolerating PO well, BMs normal, and no abdominal pain MUSCULOSKELETAL: denies any painful or swollen joints, no muscle aches SKIN: no rash NEURO: no numbness or paresthesias and no weakness of the extremities As noted in HPI PHYSICAL EXAM: VS: BP 149/77 Pulse (!) 53 Temp 36.1 C (96.9 F) Resp 16 Wt 73 kg (161 lb) SpO2 98% BMI 24.49 kg/m KPS: 100 General Appearance: Alert and oriented. No acute distress. HEENT: NCAT. Sclera anicteric. PERRL. EOMI. Neck: Normal ROM. No palpable cervical or supraclavicular adenopathy. Chest: No respiratory distress. Lungs clear to auscultation bilaterally. Heart: Regular rate and rhythm. Abdomen: Soft. Nontender. Nondistended. Musculoskeletal: No edema. Normal ROM in extremities. No bone or spine tenderness. Neuro: Speech fluent. Gait normal. No focal deficits. Skin: No rashes noted Lymphatics: No palpable lymphadenopathy. Hematologic: No signs of active bleeding. RADIOLOGY/LABORATORY DATA: see HPI ASSESSMENT AND PLAN: Lung cancer, right upper lung, adenocarcinoma, Stage IB (pT2a, N0, M0) diagnosed April 2019. Status post right upper lobectomy 04/24/2019, now with evidence of recurrence versus new primary right lower lung and hilar region. Patient I do feel would be a good candidate for definitive treatment of his recurrent versus new primary right lung cancer. Given location recommend concurrent radiation with chemotherapy. However patient is undergoing further staging evaluation including bronchoscopy with EBUS, and this may change overall recommendations depending on findings. We will plan to have patient back after this evaluation and will discuss further with Dr. Becker regarding coordination of care. Signed by: Marisabel Saunders MD cc: Prerna Grissom II, MD [address] [place] [id number] Ja Becker ([facility]) [address] [place] [address] [place] [id number] documented in this encounter [facility] 05-02-2022 History of Present illness Narrative PATIENT NAME: Raghavendra Heard DATE: 05/02/2022 PRIMARY CARE PHYSICIAN: Dr. Prerna Grissom II OTHER PHYSICIANS: Dr. Toledo (Cardiology [facility]), Dr. Zhang, Dr. Hernández (Wardrobe Manager in [place]), Dr. Stinson (Thoracic Surgery in [place]), Dr. Alberts Portions of this encounter note have been copied from my note from 04/06/2022 and has been updated where appropriate, and reflect my current medical decision making from today. CC: This is a 77 year old male with a history of multiple myeloma and lung cancer, seen for for scheduled follow-up. INTERIM HISTORY: Since the patient's last visit here he underwent a PET scan, which revealed uptake in the right hilar node consistent with malignancy. No other signs of metastasis were seen. Clinically the patient feels about the same. Chronic pain is controlled with current medications. He denies any significant cough, shortness of breath or pulmonary symptoms. MEDICATIONS: metoprolol succinate ER (TOPROL XL) 25 mg 24 hr tablet Take 25 mg by mouth once daily. mv-mn/iron/folic acid/herb 190 (VITAMIN D3 COMPLETE ORAL) Take by mouth. DULoxetine (CYMBALTA) 60 mg capsule Take 1 capsule by mouth twice daily. clonazePAM (KLONOPIN) 1 mg tablet Take 1 tablet by mouth three times daily as needed for up to 30 days. gabapentin (NEURONTIN) 300 mg capsule Take 2 capsules by mouth three times daily for 90 days. HYDROcodone-acetaminophen (NORCO) 5-325 mg per tablet Take 2 tablets by mouth every 6 hours as needed. diazePAM (VALIUM) 5 mg tablet Take 1 tablet by mouth every 8 hours as needed for up to 30 days. HYDROcodone-acetaminophen (NORCO) 5-325 mg per tablet Take 1 tablet by mouth every 4 hours as needed for up to 30 days. docusate sodium (COLACE) 100 mg capsule TAKE 2 CAPSULES BY MOUTH TWICE A DAY meloxicam (MOBIC) 15 mg tablet Take 1 tablet by mouth once daily. senna (SENNA LAXATIVE) 8.6 mg tab Take 2 tablets by mouth twice daily. famciclovir (FAMVIR) 250 mg tablet TAKE 1 TABLET BY MOUTH TWICE A DAY gabapentin (NEURONTIN) 300 mg capsule TAKE 2 CAPSULES BY MOUTH THREE TIMES DAILY FOR 90 DAYS ZINC ORAL Take by mouth. oxybutynin XL (DITROPAN XL) 5 mg 24 hr tablet (Patient not taking: Reported on 04/24/2022) melatonin 10 mg cap TAKE 1 CAPSULE BY MOUTH EVERYDAY AT BEDTIME tamsulosin ER (FLOMAX) 0.4 mg cap baclofen (LIORESAL) 10 mg tablet Take 10 mg by mouth three times daily. calcium carbonate (CALCIUM 600) 600 mg calcium (1,500 mg) tab Take 600 mg by mouth. naproxen sodium (ALEVE ORAL) Take by mouth. (Patient not taking: Reported on 04/24/2022) nitroglycerin sublingual (NITROQUICK) 0.4 mg SL tablet Dissolve 0.4 mg under the tongue every 5 minutes as needed. Aspirin 81 mg CpDR Take 81 mg by mouth once daily. atorvastatin 40 mg tablet Take 40 mg by mouth once daily. DOCOSAHEXANOIC ACID/EPA (FISH OIL ORAL) Take by mouth. ALLERGIES: Patient has no known allergies. PAST MEDICAL HISTORY: PAST MEDICAL HISTORY Diagnosis Date Multiple myeloma, without mention of having achieved remission PAST SURGICAL HISTORY: PAST SURGICAL HISTORY Procedure Laterality Date REMOVAL OF LUNG,LOBECTOMY Right 04/24/2019 right upper lobe REVIEW OF SYSTEMS: As above. PHYSICAL EXAM: Vitals: BP 135/61 Pulse (!) 53 Temp 36.4 C (97.6 F) (Temporal) Resp 16 Ht 172.7 cm (5' 7.99 ) Wt 74.3 kg (163 lb 12.8 oz) SpO2 97% BMI 24.91 kg/m ECOG 1 General appearance: Well appearing, alert, in no acute distress, well-hydrated, well nourished. Skin: Lesion to nares was removed by derm- healed well. Head: Normal. Eyes: Anicteric sclera. Pupils are equally round and reactive to light. Extraocular movements are intact. Ears: Negative findings. External ears normal to inspection and palpation. Oropharynx: Negative. Neck: Supple, no adenopathy; thyroid symmetric, normal size. Lymph Nodes: No Submandibular, cervical, supraclavicular, axillary or inguinal lymphadenopathy present. Back: No tenderness to palpation. Lungs: Clear to auscultation, no wheezing or rhonchi. Surgical wounds on the lateral right chest wall well-healed with no signs of infection. Heart: Negative. RRR without murmur, gallop, or rubs. No ectopy. Abdomen: Normal abdominal exam. Abdomen soft, non-tender. Bowel sounds normal. No masses, organomegaly. Rectal: Not done. Extremities: Extremities normal. No deformities, edema, or skin discoloration. Good capillary refill. Musculoskeletal: No joint swelling, deformity, or tenderness. Peripheral pulses: Normal. RADIOLOGIC STUDIES: 04/28/2022 PET scan IMPRESSION: Head and Neck: * No evidence of FDG avid neoplastic process Chest: * 1.1 cm worsening right perihilar nodule concerning for neoplasm/recurrence. * No evidence of FDG avid thoracic lymphadenopathy, as described. Abdomen and pelvis: * No evidence of FDG avid neoplastic process Musculoskeletal: * No neoplastic hypermetabolic lesions 03/30/2022 CT chest IMPRESSION: 1. New 1.1 cm right lower lobe perihilar nodular opacity adjacent to surgical clips worrisome for neoplasm. Consider further evaluation via PET scan and/or other workup. 2. Mild reticulonodular opacities and groundglass opacities in right lower lobe and other 2-3 mm nodular opacities, stable since 08/30/21. 3. 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 4. Mild emphysematous changes of the lungs. 5. 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 10/11/2021 Skeletal survey ([facility]) No new lytic changes to suggest progression of myeloma 09/29/2021 CT chest IMPRESSION: 1. Mild reticulonodular opacities and groundglass opacities in right lower lobe slightly increased since 03/25/21. 2. Other 2-3 mm nodular opacities, stable. Consider continued interval follow-up. 3. 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 4. Mild emphysematous changes of the lungs. 5. 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 03/25/2021 CT chest IMPRESSION: Stable postoperative appearance to the chest as above. 12/27/2020 PET SCAN IMPRESSION: Head and Neck: * No hypermetabolic foci Chest: * New right hilar uptake compared to the 08/21/2018 preoperative PET/CT is favored to be secondary to an inflammatory process or postoperative changes. Recommend 3 month follow-up PET/CT and/or contrast-enhanced chest CT for confirmation. * Areas of nodular pleural thickening along the lateral right middle lobe and right major fissure are unchanged and without FDG avidity, likely postsurgical changes. Abdomen and pelvis: * No evidence of FDG avid neoplastic process Musculoskeletal: * No neoplastic hypermetabolic lesions 10/01/[address] IMPRESSION: 1. Overall stable CT of the chest. Stable postsurgical changes in keeping with right upper lobe lobectomy. 2. Stable nodular pleural plaques in the right upper lung zone. 3. Stable subpleural reticular change in both lower lobes likely representing scarring. 4. Stable right lower lobe 3 mm nodule. No new or enlarging nodules are seen. 06/16/2020 Plain film bone survey ([facility]) Impression: No lytic lesions to correspond with multiple myeloma. 04/06/2020 CT CHEST IMPRESSION: 1. No interval change since 11/14/2019. 2. Improved aeration of the right lung with interval resolution of previously noted right pneumothorax, pleural effusions and consolidative opacities. 3. Mild reticulonodular opacities in right lower lobe and 2-3 mm right lower lobe nodular opacity, stable. Consider continued interval follow-up. 4. Mild emphysematous changes of the lungs. 5. 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 02/20/2019 PET SCAN ([facility]) Solid spiculated 2.0 cm nodule in the right upper lobe posterior aspect abutting the oblique fissure. SUV 5.5. No lymphadenopathy. No evidence of metastatic disease. LABORATORY DATA: Hemoglobin (g/dL) Date Value 04/06/2022 12.0 07/07/2021 13.0 Hematocrit (%) Date Value 04/06/2022 35.4 07/07/2021 38.4 WBC (k/uL) Date Value 04/06/2022 5.13 07/07/2021 6.28 Platelet Count (k/uL) Date Value 04/06/2022 188 07/07/2021 262 ASSESSMENT/PLAN: 1. Malignant neoplasm of upper lobe of right lung (HCC) - ICD9: 162.3, ICD10: C34.11 (primary diagnosis) Stage IB (pT2a, N0, M0) adenocarcinoma of the right lung diagnosed April 2019. Status post right upper lobectomy 04/24/2019. Final pathology indicated invasive adenocarcinoma, acinar predominant type. Tumor size 3.1 cm, all margins negative. 9 resected lymph nodes negative. Adjuvant chemotherapy and radiation therapy not indicated, and routine postop surveillance recommended. For evaluation of right chest wall pain the patient underwent a PET scan on 12/27/2020. He was found to have a small right hilar lymph node of unclear significance, otherwise no evidence of disease. Follow-up chest CT 09/29/2021 stable. However, most recent chest CT 03/30/2022 revealed a new 1.1 cm right lower lobe perihilar nodular opacity adjacent to surgical clips worrisome for neoplasm. Repeat PET scan 04/28/2022 revealed uptake in the right perihilar lymph node concerning for neoplasm. Options for management were discussed at length with the patient and his . I recommended referral to pulmonary to evaluate for an EBUS biopsy to confirm recurrent disease. 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 Assuming the biopsy confirms recurrent adenocarcinoma we will proceed with definitive chemoradiation, to include low-dose weekly carboplatin/Taxol concurrent with radiation. I will schedule a temporary return visit here in 3 weeks to coordinate care. 2. 203.00 Multiple myeloma IgG lambda multiple myeloma initially diagnosed August of 2008. Status post first line therapy with Revlimid and Decadron. This was stopped after 6 months due to side effects (vasculitis). Subsequent treatment with Velcade, melphalan and prednisone x 7 cycles finished August 2010. He had a very good partial response. Since then the patient has been on Aredia, currently dosed at 30 mg every 12 weeks. In regards to myeloma the patient is clinically stable and his paraprotein remains stable. Next Aredia is due irradiated due July 2022. We will monitor the patient's paraprotein, and we will discuss treatment options if/when his disease progresses. 3. 414.01 Coronary artery disease with history of myocardial infarction Acute IN October 2012. S/P coronary artery stent placement. Stable on current medications. Continue current medication per PCP/cardiology. 4. Neuropathy (HCC) - ICD9: 355.9, ICD10: G62.9 Chronic neuropathy, most likely secondary to underlying myeloma plus/minus other systemic condition. Stable on current medications (Neurontin 600 mg TID). 5. Squamous cell skin cancer - ICD9: 709.9, ICD10: L98.9 Squamous cell skin cancer involving the right side of nose removed August 2017. Continue follow-up and management per dermatology (Dr. De Guzman). 5. Chronic pain The patient has a long history of pain, multifactorial in etiology. In part his pain is related to underlying myeloma as well as recent thoracic surgery. The patient was seen by [facility] pain management in December 2020, and is much improved on current medications. He will continue his current medications and follow-up with [facility] pain management as scheduled. Ja Becker MD CC: Dr. Hernández (Wardrobe Manager in [place]) documented in this encounter [facility] 04-28-2022 History of Present illness Narrative Radiology Service Progress Note DATE OF SERVICE: April 28, 2022 TIME: 8:18 AM PATIENT WEIGHT: 161 LBS PATIENT IDENTITY VERIFICATION COMPLETED USING TWO (2) STANDARD IDENTIFIERS: Name and Date of confirmed by patient verbally. FALL SCREENING: Has the patient had 2 falls in the last year or 1 fall with injury or currently using an Ambulatory Assistive Device (Walker, Cane, Wheelchair, Crutches, etc.)? No PATIENT GENDER DATA: Male ALLERGIES: Reviewed and unchanged EXAM: CT -CONTRAST INDUCED NEPHROPATHY RISK FACTORS: Not applicable CREATININE: Creatinine Date Value Ref Range Status 04/06/2022 1.00 0.73 - 1.22 mg/dL Final 01/12/2022 1.01 0.73 - 1.22 mg/dL Final 09/29/2021 0.88 0.73 - 1.22 mg/dL Final Estimated Glomerular Filtration Rate Date Value Ref Range Status 04/06/2022 78 >=60 mL/min/1.73m Final Comment: Estimated Glomerular Filtration Rate (eGFR) is calculated using the 2020 CKD-EPI creatinine equation. This equation utilizes serum creatinine, sex, and age as parameters. The creatinine assay has traceable calibration to isotope dilution-mass spectrometry. Refer to KDIGO guidelines for clinical interpretation. In patients with unstable renal function, e.g. those with acute kidney injury, the eGFR may not accurately reflect actual GFR. eGFR- Date Value Ref Range Status 07/07/2021 >60 Final P.O.C.T. RESULTS: POC done: Yes, See Lab Tab April 28, 2022 TREATMENT: N/A IV SITE: Ambulatory: A peripheral IV was started in the Right hand with a Angio cath: 24 gauge. IV SITE APPEARANCE: Clean,Dry and Intact SIGNATURE: Noelle Melgoza RN PATIENT NAME: Raghavendra Heard DATE: April 28, 2022 TIME: 8:18 AM RADIOLOGY SERVICE PROGRESS NOTE SERVICE DATE: 04/28/2022 SERVICE TIME: 9:37 AM PATIENT IDENTITY VERIFICATION COMPLETED USING TWO (2) STANDARD IDENTIFIERS: Name and Date of confirmed by patient verbally POST EXAM PIV STATUS: Discontinued PROCEDURE TYPE: NM INJECT: PET/CT BODY SCAN. 10.2 mCi F18 FDG. No other medications given.. ADMINISTRATION TIME: 828 PATIENT DISCHARGED TO: Ambulatory patient, left NM department area. A Diagnostic radioactive procedure has taken place, with no further precautions necessary other than routine body substance precautions. More information regarding radiation safety can be found using this link: [email or web address] SIGNATURE: RT Karla(Tom) PATIENT NAME: Raghavendra Heard DATE: April 28, 2022 TIME: 9:37 AM PAGER/CONTACT #: documented in this encounter [facility] 04-24-2022 History of Present illness Narrative [facility] Medication Refill Raghavendra Heard April 24, 2022 - 1:59 PM Medication Refill Appointment Raghavendra Heard is a 77 year old male who presents to [facility], accompanied by spouse, for a medication refill appointment. Opioid Management Agreement:: No Date signed: SUBJECTIVE: Raghavendra Heard reports no new complaints. The pain is located in the right side rib area and radiates into the right side low back. He reports the pain has been occuring for 3 years. He report the pain is constant. He describes the pain as very aching and tight. He rates his pain at a 5/10 currently and ranges from a 3 to a 9 on a 0-10 scale. His pain is aggravated by ADL's. The pain is mitigated by medications for a while. Date of last visit: 04/28/2021 Plan: 1) Continue weaning of narcotic as tolerated. 2) Continue cymbalta , will increase to 60 mg twice daily. Continue gabapentin 600 mg TID.Continue baclofen 3) RTC in 3 months for F/U 4) Address Hypertension with his PCP. His current pain medication regimen is: 1) Narcotics: Hydrocodone 5 mg/Acetaminophen 325 mg 2 tablets every 6 hrs - last dose this afternoon 2) NSAIDS: None 3) Membrane Stabilizers: Neurontin 600 mg TID and Cymbalta 60 mg BID 4) Other: None Since his last visit the patient reported no change in pain and some improvement to a point in function. Side Effects from current pain medications: Nausea: No. Vomiting: No. Constipation: No. Diarrhea: No. Itching: No. He requests refills on the following medications: 1) Narcotics: None 2) NSAIDS: None 3) Membrane Stabilizers: Cymbalta 60 mg TID 4) Other: None Current Outpatient Medications Medication Sig metoprolol succinate ER (TOPROL XL) 25 mg 24 hr tablet Take 25 mg by mouth once daily. mv-mn/iron/folic acid/herb 190 (VITAMIN D3 COMPLETE ORAL) Take by mouth. clonazePAM (KLONOPIN) 1 mg tablet Take 1 tablet by mouth three times daily as needed for up to 30 days. gabapentin (NEURONTIN) 300 mg capsule Take 2 capsules by mouth three times daily for 90 days. HYDROcodone-acetaminophen (NORCO) 5-325 mg per tablet Take 2 tablets by mouth every 6 hours as needed. diazePAM (VALIUM) 5 mg tablet Take 1 tablet by mouth every 8 hours as needed for up to 30 days. DULoxetine (CYMBALTA) 60 mg capsule Take 1 capsule by mouth twice daily. docusate sodium (COLACE) 100 mg capsule TAKE 2 CAPSULES BY MOUTH TWICE A DAY meloxicam (MOBIC) 15 mg tablet Take 1 tablet by mouth once daily. senna (SENNA LAXATIVE) 8.6 mg tab Take 2 tablets by mouth twice daily. famciclovir (FAMVIR) 250 mg tablet TAKE 1 TABLET BY MOUTH TWICE A DAY ZINC ORAL Take by mouth. melatonin 10 mg cap TAKE 1 CAPSULE BY MOUTH EVERYDAY AT BEDTIME tamsulosin ER (FLOMAX) 0.4 mg cap baclofen (LIORESAL) 10 mg tablet Take 10 mg by mouth three times daily. calcium carbonate (CALCIUM 600) 600 mg calcium (1,500 mg) tab Take 600 mg by mouth. nitroglycerin sublingual (NITROQUICK) 0.4 mg SL tablet Dissolve 0.4 mg under the tongue every 5 minutes as needed. Aspirin 81 mg CpDR Take 81 mg by mouth once daily. atorvastatin 40 mg tablet Take 40 mg by mouth once daily. DOCOSAHEXANOIC ACID/EPA (FISH OIL ORAL) Take by mouth. HYDROcodone-acetaminophen (NORCO) 5-325 mg per tablet Take 1 tablet by mouth every 4 hours as needed for up to 30 days. gabapentin (NEURONTIN) 300 mg capsule TAKE 2 CAPSULES BY MOUTH THREE TIMES DAILY FOR 90 DAYS oxybutynin XL (DITROPAN XL) 5 mg 24 hr tablet (Patient not taking: Reported on 04/24/2022) naproxen sodium (ALEVE ORAL) Take by mouth. (Patient not taking: Reported on 04/24/2022) No current facility-administered medications for this visit. ALLERGIES No Known Allergies Review of Symptoms: General: Denies unintentional weight loss, fever, or fatigue. GI: Denies incontinence, nausea, vomiting, constipation, or abdominal pain. : Denies bladder incontinence, urgency,and increased frequency. Neurologic: Denies numbness, tingling or weakness. Does the patient feel safe at home Yes Risk assessment at risk due to fall: NONE Debra Treviño MA April 24, 2022 The subjective information: including chief complaint, past medical history and review of systems, was explored in detail with the patient and edited as needed and is complete. Lexus Alberts DO April 24, 2022 OBJECTIVE: Pulse 60 Ht 5' 8 (1.73m) SpO2 98% General appearance: well appearing, alert, and in no acute distress Skin: skin color, texture, turgor normal, no rashes or lesions Heart: RRR. Lungs: Clear, airway unobstructed OARRS website checked and validated. All prescriptions have been APPROPRIATELY filled. No suspicious activity was identified.- April 24, 2022 by Lexus Alberts DO . HPI & ASSESSMENT: Tyrone Bolivar MD, PGY5 and patient's were present during the interview and physical exam. Portions of this note were copied from the last encounter. Changes were made to appropriately reflect updated history and interval events, physical exam, data review, and medical decision making. Raghavendra Heard is a 77 year old male with chronic right sided chest wall pain in the setting of History of of right upper lobe lung cancer with history of right upper lobectomy. He is on [place] 5/325 mg 6 times daily prescribed by Dr Becker. He is taking cymbalta 60 mg twice daily and gabapentin 600 mg TID All medications works good and controlling his pain to a a level of %/10 adn ahe is able to function without side effects. 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 Continue Gabapentin and [place] per Dr. Becker. RTC in 1 year for F/U The above plan and management options were discussed at length with patient. Patient is in agreement with the above and verbalized understanding. I spent a total of 30 minutes on the date of the service which included preparing to see the patient, [id number] patient care, completing clinical documentation, performing a medically appropriate examination, counseling and educating the patient/family/caregiver, ordering medications, tests, or procedures, and communicating with other HCPs (not separately reported). Lexus Alberts DO April 24, 2022 documented in this encounter [facility] 04-06-2022 Miscellaneous Notes Order placed per Dr Becker. Rhona Ruiz RN Pt requesting a handicap placard. Order pended. Rhona Ruiz RN documented in this encounter [facility] 03-30-2022 History of Present illness Narrative Radiology Service Progress Note PATIENT NAME: Raghavendra Heard DATE OF SERVICE: March 30, 2022 TIME: 8:21 AM PATIENT IDENTITY VERIFICATION COMPLETED USING TWO (2) IDENTIFIERS: Name and Date of confirmed by patient verbally. FALL SCREENING: Has the patient had 2 falls in the last year or 1 fall with injury or currently using an Ambulatory Assistive Device (Walker, Cane, Wheelchair, Crutches, etc.)? No PATIENT GENDER DATA: Male PATIENT RELEVANT IMPLANT DATA REVIEWED: Not Applicable RADIOLOGY DEPARTMENT: CT; Exam(s) Completed: Chest PERIPHERAL IV DATA: Not applicable SIGNED BY: RT Karla(R) March 30, 2022 8:21 AM documented in this encounter [facility] 03-13-2022 Miscellaneous Notes Patient phones requesting refills as follows: Last script written on 01/30/22. Requested Prescriptions Pending Prescriptions Disp Refills HYDROcodone-acetaminophen (NORCO) 5-325 mg per tablet 180 tablet 0 Sig: Take 1 tablet by mouth every 4 hours as needed for up to 30 days. Please review and advise. Rhona Ruiz RN documented in this encounter [facility] 02-23-2022 History of Present illness Narrative SOCIAL WORK FOLLOW UP NOTE: [facility] Date of service:02/23/22 TOPICS ADDRESSED: community resources and [employer] Fund PLAN: Assist with financial support applications and Continue follow up as needed Assigned JR listed in Care Team tab: Yes SW received an email from Smiley at the [employer]. Smiley asked for help with this Patients application. JR completed the requested section and faxed it back to Smiley. JR will remain available and will follow up as appropriate. ELLIE Squires documented in this encounter [facility] 02-09-2022 Miscellaneous Notes I called and left a message on the patient's voicemail. I informed the patient that the Duloxetine was just filled on 01/30/2022 for a 90 day supply. Your last office visit was 04/28/2021 and he will need to be seen for any further refill. I informed him that I will have a director federal call the patient to assist him in scheduling a follow up visit CHARLES 04/28/[address] Lexus Alberts Duloxetine was just filled on 01/30/22 for a 90 day supply. Raghavendra Heard was last seen on 04/28/21 and he will need to be seen for any further refills. Please advise the patient. Flynn Hopkins PA-C February 08, 2022 Patient phones requesting refills as follows: Requested Prescriptions Pending Prescriptions Disp Refills DULoxetine (CYMBALTA) 60 mg capsule [Pharmacy Med Name: DULOXETINE HCL DR 60 MG CAP] 180 capsule 0 Sig: TAKE 1 CAPSULE BY MOUTH TWICE A DAY Please review and advise. Gia Berger LPN documented in this encounter [facility] 01-31-2022 Miscellaneous Notes The following approved medication requests have been transmitted electronically. Signed Prescriptions Disp Refills diazePAM (VALIUM) 5 mg tablet 90 tablet 0 Sig: TAKE 1 TABLET BY MOUTH EVERY 8 HOURS NEEDED EMERALD Class: C-IV JOSE: No Authorizing Provider: AMBER RODRIGUEZ APRN.REJECT OPENER [employer]ER documented in this encounter [facility] 01-30-2022 Miscellaneous Notes The following approved medication requests have been transmitted electronically. Signed Prescriptions Disp Refills DULoxetine (CYMBALTA) 60 mg capsule 180 capsule 0 Sig: Take 1 capsule by mouth twice daily. JOSE: No Authorizing Provider: LEXUS ALBERTS DO January 30, 2022 3:52 PM Please notify the patient. Patient's request for medication is as follows: Pending Prescriptions Disp Refills DULOXETINE 60 MG CAPSULE,DELAYED RELEASE 180 capsule 0 Sig: Take 1 capsule by mouth twice daily. JOSE: No Last OV 04/28/21 Physician: Dr. Alberts Call from patient requesting refill. Please [employer] Pending Prescriptions Disp Refills DULOXETINE 60 MG CAPSULE,DELAYED RELEASE 180 capsule 0 Sig: Take 1 capsule by mouth twice daily. JOSE: No [facility] Phone #: [phone] Jonathan Ellison documented in this encounter [facility] 01-12-2022 History of Present illness Narrative PATIENT NAME: Raghavendra Heard DATE: 01/12/2022 PRIMARY CARE PHYSICIAN: Dr. Prerna Grissom II OTHER PHYSICIANS: Dr. Toledo (Cardiology [facility]), Dr. Zhang, Dr. Hernández (Wardrobe Manager in [place]), Dr. Stinson (Thoracic Surgery in [place]), Dr. Alberts Portions of this encounter note have been copied from my note from 10/06/2021 and has been updated where appropriate, and reflect my current medical decision making from today. CC: This is a 76 year old male with a history of multiple myeloma and lung cancer, seen for for scheduled follow-up. INTERIM HISTORY: Since the patient's last visit here he has had no significant medical changes. With his current medications his postop right-sided chest pain and chronic neuropathic pain has remained stable. The patient remains on Aredia every 3 months which he is tolerating well. Overall the patient feels well with no new complaints today. No recent fevers or signs infection. No significant cough, shortness of breath, or pulmonary symptoms. MEDICATIONS: docusate sodium (COLACE) 100 mg capsule TAKE 2 CAPSULES BY MOUTH TWICE A DAY diazePAM (VALIUM) 5 mg tablet Take 1 tablet by mouth every 8 hours as needed for up to 90 days. HYDROcodone-acetaminophen (NORCO) 5-325 mg per tablet Take 1 tablet by mouth every 4 hours as needed for up to 30 days. clonazePAM (KLONOPIN) 1 mg tablet TAKE 1 TABLET BY MOUTH 3 TIMES DAILY NEEDED FOR UP TO 30 DAYS. HYDROcodone-acetaminophen (NORCO) 5-325 mg per tablet Take 2 tablets by mouth every 6 hours as needed. meloxicam (MOBIC) 15 mg tablet Take 1 tablet by mouth once daily. senna (SENNA LAXATIVE) 8.6 mg tab Take 2 tablets by mouth twice daily. DULoxetine (CYMBALTA) 60 mg capsule TAKE 1 CAPSULE BY MOUTH TWICE A DAY famciclovir (FAMVIR) 250 mg tablet TAKE 1 TABLET BY MOUTH TWICE A DAY gabapentin (NEURONTIN) 300 mg capsule Take 2 capsules by mouth three times daily for 90 days. gabapentin (NEURONTIN) 300 mg capsule TAKE 2 CAPSULES BY MOUTH THREE TIMES DAILY FOR 90 DAYS ZINC ORAL Take by mouth. oxybutynin XL (DITROPAN XL) 5 mg 24 hr tablet melatonin 10 mg cap TAKE 1 CAPSULE BY MOUTH EVERYDAY AT BEDTIME tamsulosin ER (FLOMAX) 0.4 mg cap baclofen (LIORESAL) 10 mg tablet Take 10 mg by mouth twice daily. calcium carbonate (CALCIUM 600) 600 mg calcium (1,500 mg) tab Take 600 mg by mouth. naproxen sodium (ALEVE ORAL) Take by mouth. nitroglycerin sublingual (NITROQUICK) 0.4 mg SL tablet Dissolve 0.4 mg under the tongue every 5 minutes as needed. Aspirin 81 mg CpDR Take 81 mg by mouth once daily. atorvastatin 40 mg tablet Take 40 mg by mouth once daily. DOCOSAHEXANOIC ACID/EPA (FISH OIL ORAL) Take by mouth. ALLERGIES: Patient has no known allergies. PAST MEDICAL HISTORY: PAST MEDICAL HISTORY Diagnosis Date Multiple myeloma, without mention of having achieved remission PAST SURGICAL HISTORY: PAST SURGICAL HISTORY Procedure Laterality Date REMOVAL OF LUNG,LOBECTOMY Right 04/24/2019 right upper lobe REVIEW OF SYSTEMS: As above. PHYSICAL EXAM: Vitals: BP 183/61 Pulse 70 Temp 36.3 C (97.4 F) (Temporal) Resp 18 Ht 172.7 cm (5' 7.99 ) Wt 76.2 kg (168 lb) SpO2 97% BMI 25.55 kg/m ECOG 1 General appearance: Well appearing, alert, in no acute distress, well-hydrated, well nourished. Skin: Lesion to nares was removed by derm- healed well. Head: Normal. Eyes: Anicteric sclera. Pupils are equally round and reactive to light. Extraocular movements are intact. Ears: Negative findings. External ears normal to inspection and palpation. Oropharynx: Negative. Neck: Supple, no adenopathy; thyroid symmetric, normal size. Lymph Nodes: No Submandibular, cervical, supraclavicular, axillary or inguinal lymphadenopathy present. Back: No tenderness to palpation. Lungs: Clear to auscultation, no wheezing or rhonchi. Surgical wounds on the lateral right chest wall well-healed with no signs of infection. Heart: Negative. RRR without murmur, gallop, or rubs. No ectopy. Abdomen: Normal abdominal exam. Abdomen soft, non-tender. Bowel sounds normal. No masses, organomegaly. Rectal: Not done. Extremities: Extremities normal. No deformities, edema, or skin discoloration. Good capillary refill. Musculoskeletal: No joint swelling, deformity, or tenderness. Peripheral pulses: Normal. RADIOLOGIC STUDIES: 10/11/2021 Skeletal survey ([facility]) No new lytic changes to suggest progression of myeloma 09/29/2021 CT chest IMPRESSION: 1. Mild reticulonodular opacities and groundglass opacities in right lower lobe slightly increased since 03/25/21. 2. Other 2-3 mm nodular opacities, stable. Consider continued interval follow-up. 3. 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 4. Mild emphysematous changes of the lungs. 5. 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 03/25/2021 CT chest IMPRESSION: Stable postoperative appearance to the chest as above. 12/27/2020 PET SCAN IMPRESSION: Head and Neck: * No hypermetabolic foci Chest: * New right hilar uptake compared to the 08/21/2018 preoperative PET/CT is favored to be secondary to an inflammatory process or postoperative changes. Recommend 3 month follow-up PET/CT and/or contrast-enhanced chest CT for confirmation. * Areas of nodular pleural thickening along the lateral right middle lobe and right major fissure are unchanged and without FDG avidity, likely postsurgical changes. Abdomen and pelvis: * No evidence of FDG avid neoplastic process Musculoskeletal: * No neoplastic hypermetabolic lesions 10/01/[address] IMPRESSION: 1. Overall stable CT of the chest. Stable postsurgical changes in keeping with right upper lobe lobectomy. 2. Stable nodular pleural plaques in the right upper lung zone. 3. Stable subpleural reticular change in both lower lobes likely representing scarring. 4. Stable right lower lobe 3 mm nodule. No new or enlarging nodules are seen. 06/16/2020 Plain film bone survey ([facility]) Impression: No lytic lesions to correspond with multiple myeloma. 04/06/2020 CT CHEST IMPRESSION: 1. No interval change since 11/14/2019. 2. Improved aeration of the right lung with interval resolution of previously noted right pneumothorax, pleural effusions and consolidative opacities. 3. Mild reticulonodular opacities in right lower lobe and 2-3 mm right lower lobe nodular opacity, stable. Consider continued interval follow-up. 4. Mild emphysematous changes of the lungs. 5. 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 02/20/2019 PET SCAN ([facility]) Solid spiculated 2.0 cm nodule in the right upper lobe posterior aspect abutting the oblique fissure. SUV 5.5. No lymphadenopathy. No evidence of metastatic disease. LABORATORY DATA: Hemoglobin (g/dL) Date Value 01/12/2022 11.8 07/07/2021 13.0 Hematocrit (%) Date Value 01/12/2022 34.9 07/07/2021 38.4 WBC (k/uL) Date Value 01/12/2022 3.92 07/07/2021 6.28 Platelet Count (k/uL) Date Value 01/12/2022 170 07/07/2021 262 ASSESSMENT/PLAN: 1. Malignant neoplasm of upper lobe of right lung (HCC) - ICD9: 162.3, ICD10: C34.11 (primary diagnosis) Stage IB (pT2a, N0, M0) adenocarcinoma of the right lung diagnosed April 2019. Status post right upper lobectomy 04/24/2019. Final pathology indicated invasive adenocarcinoma, acinar predominant type. Tumor size 3.1 cm, all margins negative. 9 resected lymph nodes negative. Adjuvant chemotherapy and radiation therapy not indicated, and routine postop surveillance recommended. For evaluation of right chest wall pain the patient underwent a PET scan on 12/27/2020. He was found to have a small right hilar lymph node of unclear significance, otherwise no evidence of disease. Most recent follow-up chest CT 09/29/2021 stable. At this time the patient has no evidence of disease. We will continue to see him every 3 months for follow-up, with a repeat chest CT every 6 months. His next chest CT will be scheduled for March 2022. Further evaluation as indicated if suspicious symptoms develop. 2. 203.00 Multiple myeloma IgG lambda multiple myeloma initially diagnosed August of 2008. Status post first line therapy with Revlimid and Decadron. This was stopped after 6 months due to side effects (vasculitis). Subsequent treatment with Velcade, melphalan and prednisone x 7 cycles finishing August 2010. He had a very good partial response. Since then the patient has been on Aredia, currently dosed at 30 mg every 12 weeks. In regards to myeloma the patient is clinically stable, but his paraprotein has slowly increased over the past 12 months. The patient will receive Aredia today as scheduled. Return in 3 months for follow-up, labs and continued Aredia. If/when his disease progresses significantly additional treatment options will be discussed. 3. 414.01 Coronary artery disease with history of myocardial infarction Acute IN October 2012. S/P coronary artery stent placement. Stable on current medications. Continue current medication per PCP/cardiology. 4. Neuropathy (HCC) - ICD9: 355.9, ICD10: G62.9 Chronic neuropathy, most likely secondary to underlying myeloma plus/minus other systemic condition. Stable on current medications (Neurontin 600 mg TID). 5. Squamous cell skin cancer - ICD9: 709.9, ICD10: L98.9 Squamous cell skin cancer involving the right side of nose removed August 2017. Continue follow-up and management per dermatology (Dr. De Guzman). 5. Chronic pain The patient has a long history of pain, multifactorial in etiology. In part his pain is related to underlying myeloma as well as recent thoracic surgery. PET 12/27/2020 revealed no obvious disease recurrence in the area of pain. The patient was seen by [facility] pain management in December 2020, and is much improved on current medications. He will continue his current medications and follow-up with [facility] pain management as scheduled. Ja Becker MD documented in this encounter [facility] 12-20-2021 Miscellaneous Notes The following approved medication requests have been transmitted electronically. Signed Prescriptions Disp Refills diazePAM (VALIUM) 5 mg tablet 90 tablet 0 Sig: Take 1 tablet by mouth every 8 hours as needed for up to 90 days. EMERALD Class: C-IV JOSE: No Authorizing Provider: AMBER RODRIGUEZ HYDROcodone-acetaminophen (NORCO) 5-325 mg per tablet 180 tablet 0 Sig: Take 1 tablet by mouth every 4 hours as needed for up to 30 days. EMERALD Class: C-II JOSE: No Authorizing Provider: AMBER RODRIGUEZ APRN.RE[employer]ENER [employer]ER documented in this encounter [facility] 10-31-2021 Miscellaneous Notes Patient's request for medication is as follows: Signed Prescriptions Disp Refills DULoxetine (CYMBALTA) 60 mg capsule 180 capsule 0 Sig: TAKE 1 CAPSULE BY MOUTH TWICE A DAY JOSE: No Authorizing Provider: FLYNN HOPKINS Prescription(s) as above. Please process accordingly. Loly Schneider LPN /The following approved medication requests have been transmitted electronically. Signed Prescriptions Disp Refills DULoxetine (CYMBALTA) 60 mg capsule 180 capsule 0 Sig: TAKE 1 CAPSULE BY MOUTH TWICE A DAY JOSE: No Authorizing Provider: FLYNN HOPKINS PA-C October 31, 2021 Last office visit 04/28/2021 Patient phones requesting refills as follows: Pending Prescriptions Disp Refills DULOXETINE 60 MG CAPSULE,DELAYED RELEASE 180 capsule 0 Sig: TAKE 1 CAPSULE BY MOUTH TWICE A DAY JOSE: Yes Please review and advise. Loly Schneider LPN documented in this encounter [facility] 10-06-2021 History of Present illness Narrative PATIENT NAME: Raghavendra Heard DATE: 10/06/2021 PRIMARY CARE PHYSICIAN: Dr. Prerna Grissom II OTHER PHYSICIANS: Dr. Toledo (Cardiology [facility]), Dr. Zhang, Dr. Hernández (Wardrobe Manager in [place]), Dr. Stinson (Thoracic Surgery in [place]), Dr. Alberts Portions of this encounter note have been copied from my note from 07/07/2021 and has been updated where appropriate, and reflect my current medical decision making from today. CC: This is a 76 year old male with a history of multiple myeloma and lung cancer, seen for for scheduled follow-up. INTERIM HISTORY: Since the patient's last visit here he has had no significant medical changes. With his current medications his postop right-sided chest pain has improved significantly. However, over the past several weeks he has noticed increasing pain over his right lower ribs. He continues to take Valium as needed for leg cramps which he develops at night. His other medications are unchanged. Other than ongoing pain he has no complaints. No recent fevers or signs infection. No significant cough, shortness of breath, or pulmonary symptoms. MEDICATIONS: HYDROcodone-acetaminophen (NORCO) 5-325 mg per tablet Take 1 tablet by mouth every 4 hours as needed for up to 30 days. gabapentin (NEURONTIN) 300 mg capsule Take 2 capsules by mouth three times daily for 90 days. meloxicam (MOBIC) 15 mg tablet Take 1 tablet by mouth once daily. DULoxetine (CYMBALTA) 60 mg capsule TAKE 1 CAPSULE BY MOUTH TWICE A DAY clonazePAM (KLONOPIN) 1 mg tablet TAKE 1 TABLET BY MOUTH 3 TIMES DAILY NEEDED FOR UP TO 30 DAYS. HYDROcodone-acetaminophen (NORCO) 5-325 mg per tablet Take 2 tablets by mouth every 6 hours as needed. gabapentin (NEURONTIN) 300 mg capsule TAKE 2 CAPSULES BY MOUTH THREE TIMES DAILY FOR 90 DAYS STOOL SOFTENER 100 mg capsule TAKE 2 CAPSULES BY MOUTH TWICE A DAY ZINC ORAL Take by mouth. SENNA LAXATIVE 8.6 mg tab TAKE 2 TABLETS BY MOUTH TWICE A DAY famciclovir (FAMVIR) 250 mg tablet TAKE 1 TABLET BY MOUTH TWICE A DAY oxybutynin XL (DITROPAN XL) 5 mg 24 hr tablet melatonin 10 mg cap TAKE 1 CAPSULE BY MOUTH EVERYDAY AT BEDTIME tamsulosin ER (FLOMAX) 0.4 mg cap baclofen (LIORESAL) 10 mg tablet Take 10 mg by mouth twice daily. calcium carbonate (CALCIUM 600) 600 mg calcium (1,500 mg) tab Take 600 mg by mouth. naproxen sodium (ALEVE ORAL) Take by mouth. nitroglycerin sublingual (NITROQUICK) 0.4 mg SL tablet Dissolve 0.4 mg under the tongue every 5 minutes as needed. Aspirin 81 mg CpDR Take 81 mg by mouth once daily. atorvastatin 40 mg tablet Take 40 mg by mouth once daily. DOCOSAHEXANOIC ACID/EPA (FISH OIL ORAL) Take by mouth. ALLERGIES: Patient has no known allergies. PAST MEDICAL HISTORY: PAST MEDICAL HISTORY Diagnosis Date Multiple myeloma, without mention of having achieved remission PAST SURGICAL HISTORY: PAST SURGICAL HISTORY Procedure Laterality Date REMOVAL OF LUNG,LOBECTOMY Right 04/24/2019 right upper lobe REVIEW OF SYSTEMS: As above. PHYSICAL EXAM: Vitals: BP 133/60 Pulse (!) 51 Temp 36.6 C (97.8 F) (Temporal) Resp 16 Ht 172.7 cm (5' 7.99 ) Wt 76.5 kg (168 lb 9.6 oz) SpO2 97% BMI 25.64 kg/m ECOG 1 General appearance: Well appearing, alert, in no acute distress, well-hydrated, well nourished. Skin: Lesion to nares was removed by derm- healed well. Head: Normal. Eyes: Anicteric sclera. Pupils are equally round and reactive to light. Extraocular movements are intact. Ears: Negative findings. External ears normal to inspection and palpation. Oropharynx: Negative. Neck: Supple, no adenopathy; thyroid symmetric, normal size. Lymph Nodes: No Submandibular, cervical, supraclavicular, axillary or inguinal lymphadenopathy present. Back: No tenderness to palpation. Lungs: Clear to auscultation, no wheezing or rhonchi. Surgical wounds on the lateral right chest wall well-healed with no signs of infection. Heart: Negative. RRR without murmur, gallop, or rubs. No ectopy. Abdomen: Normal abdominal exam. Abdomen soft, non-tender. Bowel sounds normal. No masses, organomegaly. Rectal: Not done. Extremities: Extremities normal. No deformities, edema, or skin discoloration. Good capillary refill. Musculoskeletal: No joint swelling, deformity, or tenderness. Peripheral pulses: Normal. RADIOLOGIC STUDIES: 09/29/2021 CT chest IMPRESSION: 1. Mild reticulonodular opacities and groundglass opacities in right lower lobe slightly increased since 03/25/21. 2. Other 2-3 mm nodular opacities, stable. Consider continued interval follow-up. 3. 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 4. Mild emphysematous changes of the lungs. 5. 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 03/25/2021 CT chest IMPRESSION: Stable postoperative appearance to the chest as above. 12/27/2020 PET SCAN IMPRESSION: Head and Neck: * No hypermetabolic foci Chest: * New right hilar uptake compared to the 08/21/2018 preoperative PET/CT is favored to be secondary to an inflammatory process or postoperative changes. Recommend 3 month follow-up PET/CT and/or contrast-enhanced chest CT for confirmation. * Areas of nodular pleural thickening along the lateral right middle lobe and right major fissure are unchanged and without FDG avidity, likely postsurgical changes. Abdomen and pelvis: * No evidence of FDG avid neoplastic process Musculoskeletal: * No neoplastic hypermetabolic lesions 10/01/[address] IMPRESSION: 1. Overall stable CT of the chest. Stable postsurgical changes in keeping with right upper lobe lobectomy. 2. Stable nodular pleural plaques in the right upper lung zone. 3. Stable subpleural reticular change in both lower lobes likely representing scarring. 4. Stable right lower lobe 3 mm nodule. No new or enlarging nodules are seen. 06/16/2020 Plain film bone survey ([facility]) Impression: No lytic lesions to correspond with multiple myeloma. 04/06/2020 CT CHEST IMPRESSION: 1. No interval change since 11/14/2019. 2. Improved aeration of the right lung with interval resolution of previously noted right pneumothorax, pleural effusions and consolidative opacities. 3. Mild reticulonodular opacities in right lower lobe and 2-3 mm right lower lobe nodular opacity, stable. Consider continued interval follow-up. 4. Mild emphysematous changes of the lungs. 5. 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 02/20/2019 PET SCAN ([facility]) Solid spiculated 2.0 cm nodule in the right upper lobe posterior aspect abutting the oblique fissure. SUV 5.5. No lymphadenopathy. No evidence of metastatic disease. LABORATORY DATA: Hemoglobin (g/dL) Date Value 09/29/2021 13.3 07/07/2021 13.0 Hematocrit (%) Date Value 09/29/2021 38.7 07/07/2021 38.4 WBC (k/uL) Date Value 09/29/2021 5.28 07/07/2021 6.28 Platelet Count (k/uL) Date Value 09/29/2021 192 07/07/2021 262 ASSESSMENT/PLAN: 1. Malignant neoplasm of upper lobe of right lung (HCC) - ICD9: 162.3, ICD10: C34.11 (primary diagnosis) Stage IB (pT2a, N0, M0) adenocarcinoma of the right lung diagnosed April 2019. Status post right upper lobectomy 04/24/2019. Final pathology indicated invasive adenocarcinoma, acinar predominant type. Tumor size 3.1 cm, all margins negative. 9 resected lymph nodes negative. Adjuvant chemotherapy and radiation therapy not indicated. For evaluation of right chest wall pain the patient underwent a PET scan on 12/27/2020. He was found to have a small right hilar lymph node of unclear significance, otherwise no evidence of disease. Most recent follow-up chest CT 09/29/2021 stable. At this time the patient has no evidence of disease. We will continue to see him every 3 months for follow-up, with a repeat chest CT every 6 months. His next chest CT will be scheduled for March 2022. Further evaluation as indicated if suspicious symptoms develop. 2. 203.00 Multiple myeloma IgG lambda multiple myeloma initially diagnosed August of 2008. Status post first line therapy with Revlimid and Decadron. This was stopped after 6 months due to side effects (vasculitis). Subsequent treatment with Velcade, melphalan and prednisone x 7 cycles finishing August 2010. He had a very good partial response. Since then the patient has been on Aredia, currently dosed at 30 mg every 12 weeks. In regards to myeloma the patient is clinically stable, but the has had persistent paraprotein which has slowly increased over the past 12 months. The patient will receive Aredia today as scheduled. We will schedule his skeletal survey to be done in November 2021. Return in 3 months for follow-up, labs and continued Aredia. If/when his disease progresses additional treatment options will be discussed. 3. 414.01 Coronary artery disease with history of myocardial infarction Acute IN October 2012. S/P coronary artery stent placement. Stable on current medications. Continue current medication per PCP/cardiology. 4. Neuropathy (HCC) - ICD9: 355.9, ICD10: G62.9 Chronic neuropathy, most likely secondary to underlying myeloma plus/minus other systemic condition. Stable on current medications (Neurontin 600 mg TID). 5. Squamous cell skin cancer - ICD9: 709.9, ICD10: L98.9 Squamous cell skin cancer involving the right side of nose removed August 2017. Continue follow-up and management per dermatology (Dr. De Guzman). 5. Chronic pain The patient has a long history of pain, multifactorial in etiology. In part his pain is related to underlying myeloma as well as recent thoracic surgery. PET 12/27/2020 revealed no obvious disease recurrence in the area of pain. The patient was seen by [facility] pain management in December 2020, and is much improved on current medications. He will continue his current medications and follow-up with [facility] pain management as scheduled. Ja Becker MD documented in this encounter [facility] 10-05-2021 Miscellaneous Notes Informed pt of Dr Becker's response. Pt verbalized understanding and denies further needs at this time. Holly Velarde RN CT stable, no signs of cancer. Great news. Will see him back as scheduled. [facility] Received call from pt requesting CT scan results. [facility]: Any message for pt regarding results? Holly Velarde RN documented in this encounter [facility] 09-29-2021 History of Present illness Narrative RADIOLOGY SERVICE PROGRESS NOTE SERVICE DATE: 09/29/2021 SERVICE TIME: 11:00 AM PATIENT IDENTITY VERIFICATION COMPLETED USING TWO (2) STANDARD IDENTIFIERS: Name and Date of confirmed by patient verbally FALL SCREENING: Has the patient had 2 falls in the last year or 1 fall with injury or currently using an Ambulatory Assistive Device (Walker, Cane, Wheelchair, Crutches, etc.)? No PATIENT GENDER DATA: .male ALLERGIES: Reviewed and unchanged MEDICATIONS REVIEWED: Not applicable PATIENT RELEVANT IMPLANT DATA REVIEWED: Not Applicable CREATININE: Creatinine Date Value Ref Range Status 07/07/2021 1.04 0.73 - 1.22 mg/dL Final 03/25/2021 Test reordered by [facility] ([facility] 0.73 - 1.22 mg/dL Corrected Comment: SEE ACC [id number] CITLALLI [id number] Account Credited 03/25/2021 0.85 0.73 - 1.22 mg/dL Final eGFR-All Other Races Date Value Ref Range Status 07/07/2021 >60 . Final Comment: eGFR (Estimated GFR) Units of measure: mL/min/1.73 meters squared eGFR is derived from the reexpressed MDRD Study equation using the following parameters: serum creatinine, age, gender and race. The creatinine assay has been calibrated to be traceable to IDMS. An eGFR <60 mL/min/1.73m2 for >3 months is consistent with chronic kidney disease. Refer to KDOQI guidelines for clinical interpretation. In patients with unstable renal function, e.g. those with acute kidney injury, the eGFR may not accurately reflect actual GFR. Note: On 08/27/2021, the eGFR calculation will be updated to the NKF-ASN Task Force recommended 2020 CKD-EPI creatinine equation which does not include a race variable. For more information or to access a 2020 CKD-EPI calculator, visit the [employer] website at kidney.org/professionals/kdoqi/gfr _calculator. eGFR- Date Value Ref Range Status 07/07/2021 >60 Final P.O.C.T. RESULTS: N/A September 29, [address] PERFORMED: Yes. RADIOLOGIST NOTIFIED?: No CONTRAST ALLERGY: NO. PREMEDICATED: Not applicable CONTRAST: IV 50 ml IV contrast (300) given DIABETIC PATIENT: Not applicable IV SITE: Ambulatory: A peripheral IV was started in the Right forearm with a Angio cath: 22 gauge. POST EXAM PIV STATUS: Discontinued PROCEDURE TYPE: CT Chest with contrast PATIENT DISCHARGED TO: Ambulatory patient, left [place] department area. A Diagnostic radioactive procedure has taken place, with no further precautions necessary other than routine body substance precautions. More information regarding radiation safety can be found using this link: [email or web address] SIGNATURE: RT Karla(Tom) PATIENT NAME: Raghavendra Heard DATE: September 29, 2021 TIME: 11:00 AM PAGER/CONTACT #: documented in this encounter [facility] Evaluation note Diagnosis Neoplasm related pain (acute) (chronic) [facility], remission status unspecified (HCC)- [facility] Multiple myeloma not having achieved remission (HCC)- Primary Multiple myeloma, without mention of having achieved remission Malignant neoplasm of upper lobe of right lung (HCC) Malignant neoplasm of upper lobe, bronchus or lung Neoplasm related pain (acute) (chronic) Neuropathic pain Neuralgia, neuritis, and radiculitis, unspecified Anxiety Anxiety state, unspecified [facility] Neoplasm related pain (acute) (chronic) Multiple myeloma not having achieved remission (HCC) Multiple myeloma, without mention of having achieved remission [facility] Neoplasm related pain (acute) (chronic) [facility] Diagnosis Anxiety Anxiety state, unspecified Neoplasm related pain (acute) (chronic) [facility] Diagnosis Multiple myeloma not having achieved remission (HCC) Multiple myeloma, without mention of having achieved remission Neoplasm related pain (acute) (chronic) [facility] Diagnosis Multiple myeloma, remission status unspecified (HCC)- Primary [facility] Diagnosis Multiple myeloma not having achieved remission (HCC)- Primary Multiple myeloma, without mention of having achieved remission Malignant neoplasm of upper lobe of right lung (HCC) Malignant neoplasm of upper lobe, bronchus or lung Neoplasm related pain (acute) (chronic) Neuropathic pain Neuralgia, neuritis, and radiculitis, unspecified Anxiety about health [facility] Multiple myeloma not having achieved remission (HCC) Multiple myeloma, without mention of having achieved remission [facility] Diagnosis Multiple myeloma not having achieved remission (HCC) Multiple myeloma, without mention of having achieved remission [facility] Diagnosis Neoplasm related pain (acute) (chronic) [facility] Diagnosis Multiple myeloma, remission status unspecified (HCC)- Primary [facility] Diagnosis Multiple myeloma, remission status unspecified (HCC)- Primary [facility] Diagnosis History of lung cancer- Primary Personal history of malignant neoplasm of bronchus and lung Chest wall pain Painful respiration 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 Multiple myeloma, remission status unspecified (HCC) [facility] Diagnosis Malignant neoplasm of upper lobe of right lung (HCC)- Primary Malignant neoplasm of upper lobe, bronchus or lung Multiple myeloma not having achieved remission (HCC) Multiple myeloma, without mention of having achieved remission Anxiety Anxiety state, unspecified Neuropathic pain Neuralgia, neuritis, and radiculitis, unspecified Neoplasm related pain (acute) (chronic) [facility] Diagnosis Malignant neoplasm of upper lobe of right lung (HCC)- Primary Malignant neoplasm of upper lobe, bronchus or lung Malignant neoplasm of upper lobe of right lung (HCC) Malignant neoplasm of upper lobe, bronchus or lung [facility] Diagnosis Surgical procedure, elective- Primary Unspecified elective surgery for purposes other than remedying health states Malignant neoplasm of upper lobe of right lung (HCC) Malignant neoplasm of upper lobe, bronchus or lung [facility] Diagnosis Neoplasm related pain (acute) (chronic)- Primary Malignant neoplasm of upper lobe of right lung (HCC) Malignant neoplasm of upper lobe, bronchus or lung [facility] Diagnosis Malignant neoplasm of upper lobe of right lung (HCC) Malignant neoplasm of upper lobe, bronchus or lung [facility] Diagnosis Malignant neoplasm of upper lobe of right lung (HCC)- Primary Malignant neoplasm of upper lobe, bronchus or lung Enlarged lymph nodes Enlargement of lymph nodes Multiple myeloma not having achieved remission (HCC) Multiple myeloma, without mention of having achieved remission Anxiety Anxiety state, unspecified Neuropathic pain Neuralgia, neuritis, and radiculitis, unspecified [facility] Diagnosis Adenopathy- Primary Enlargement of lymph nodes Abnormal PET of right lung Nonspecific abnormal results of pulmonary system function study History of lung cancer Personal history of malignant neoplasm of bronchus and lung Multiple myeloma, remission status unspecified (HCC) Adenopathy Enlargement of lymph nodes [facility] Diagnosis Adenopathy- Primary Enlargement of lymph nodes Adenopathy Enlargement of lymph nodes [facility] Diagnosis Malignant neoplasm of upper lobe of right lung (HCC)- Primary Malignant neoplasm of upper lobe, bronchus or lung [facility] Diagnosis Neoplasm related pain (acute) (chronic) [facility] Diagnosis Malignant neoplasm of upper lobe of right lung (HCC)- Primary Malignant neoplasm of upper lobe, bronchus or lung [facility] Diagnosis Malignant neoplasm of upper lobe of right lung (HCC) Malignant neoplasm of upper lobe, bronchus or lung [facility] Diagnosis Malignant neoplasm of upper lobe of right lung (HCC)- Primary Malignant neoplasm of upper lobe, bronchus or lung [facility] Diagnosis Malignant neoplasm of upper lobe of right lung (HCC)- Primary Malignant neoplasm of upper lobe, bronchus or lung [facility] Diagnosis Malignant neoplasm of upper lobe of right lung (HCC) Malignant neoplasm of upper lobe, bronchus or lung [facility] Diagnosis Malignant neoplasm of upper lobe of right lung (HCC)- Primary Malignant neoplasm of upper lobe, bronchus or lung Multiple myeloma, remission status unspecified (HCC) Anxiety Anxiety state, unspecified Neoplasm related pain (acute) (chronic) Lesion of skin of right ear [facility] Diagnosis Malignant neoplasm of upper lobe of right lung (HCC)- Primary Malignant neoplasm of upper lobe, bronchus or lung Multiple myeloma, remission status unspecified (HCC) [facility] Diagnosis Malignant neoplasm of upper lobe of right lung (HCC)- Primary Malignant neoplasm of upper lobe, bronchus or lung [facility] Diagnosis Malignant neoplasm of upper lobe of right lung (HCC)- Primary Malignant neoplasm of upper lobe, bronchus or lung [facility] Diagnosis Anxiety Anxiety state, unspecified Neoplasm related pain (acute) (chronic) Multiple myeloma not having achieved remission (HCC) Multiple myeloma, without mention of having achieved remission [facility] Diagnosis Malignant neoplasm of upper lobe of right lung (HCC)- Primary Malignant neoplasm of upper lobe, bronchus or lung Multiple myeloma not having achieved remission (HCC) Multiple myeloma, without mention of having achieved remission Neoplasm related pain (acute) (chronic) Neuropathic pain Neuralgia, neuritis, and radiculitis, unspecified Anxiety about health [facility] Diagnosis Malignant neoplasm of upper lobe of right lung (HCC) Malignant neoplasm of upper lobe, bronchus or lung [facility] Diagnosis Malignant neoplasm of upper lobe of right lung (HCC)- Primary Malignant neoplasm of upper lobe, bronchus or lung Neoplasm related pain (acute) (chronic) Multiple myeloma not having achieved remission (HCC) Multiple myeloma, without mention of having achieved remission [facility] Diagnosis Malignant neoplasm of upper lobe of right lung (HCC)- Primary Malignant neoplasm of upper lobe, bronchus or lung [facility] Diagnosis Malignant neoplasm of upper lobe of right lung (HCC) Malignant neoplasm of upper lobe, bronchus or lung [facility] Diagnosis Malignant neoplasm of upper lobe of right lung (HCC)- Primary Malignant neoplasm of upper lobe, bronchus or lung Multiple myeloma not having achieved remission (HCC) Multiple myeloma, without mention of having achieved remission Anxiety Anxiety state, unspecified Neuropathic pain Neuralgia, neuritis, and radiculitis, unspecified [facility] Diagnosis Malignant neoplasm of upper lobe of right lung (HCC)- Primary Malignant neoplasm of upper lobe, bronchus or lung [facility] Diagnosis Malignant neoplasm of upper lobe of right lung (HCC)- Primary Malignant neoplasm of upper lobe, bronchus or lung [facility] Diagnosis Malignant neoplasm of upper lobe of right lung (HCC)- Primary Malignant neoplasm of upper lobe, bronchus or lung Multiple myeloma not having achieved remission (HCC) Multiple myeloma, without mention of having achieved remission Anxiety Anxiety state, unspecified Neuropathic pain Neuralgia, neuritis, and radiculitis, unspecified Neoplasm related pain (acute) (chronic) [facility] Diagnosis Multiple myeloma not having achieved remission (HCC) Multiple myeloma, without mention of having achieved remission Neoplasm related pain (acute) (chronic) [facility]* Diagnosis Malignant neoplasm of upper lobe of right lung (HCC) Malignant neoplasm of upper lobe, bronchus or lung Multiple myeloma not having achieved remission (HCC) Multiple myeloma, without mention of having achieved remission [facility] Diagnosis Malignant neoplasm of upper lobe of right lung (HCC)- Primary Malignant neoplasm of upper lobe, bronchus or lung Multiple myeloma not having achieved remission (HCC) Multiple myeloma, without mention of having achieved remission Neoplasm related pain (acute) (chronic) Neuropathic pain Neuralgia, neuritis, and radiculitis, unspecified Anxiety about health [facility] Diagnosis Neoplasm related pain (acute) (chronic) [facility] Diagnosis Malignant neoplasm of upper lobe of right lung (HCC)- Primary Malignant neoplasm of upper lobe, bronchus or lung [facility] noteNo assessment information availableK[facility] Phone: [facility]* Diagnosis Malignant neoplasm of upper lobe of right lung (HCC)- Primary Malignant neoplasm of upper lobe, bronchus or lung Multiple myeloma not having achieved remission (HCC) Multiple myeloma, without mention of having achieved remission Neoplasm related pain (acute) (chronic) Lesion of skin of right ear [facility] Diagnosis Anxiety Anxiety state, unspecified Neoplasm related pain (acute) (chronic) [facility]* Diagnosis Malignant neoplasm of upper lobe of right lung (HCC) Malignant neoplasm of upper lobe, bronchus or lung Multiple myeloma not having achieved remission (HCC) Multiple myeloma, without mention of having achieved remission Neoplasm related pain (acute) (chronic) Opioid dependence, uncomplicated (HCC) [facility] Diagnosis 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)- Primary Multiple myeloma, remission status unspecified (HCC) Neoplasm related pain (acute) (chronic) Moderate major depression, single episode (HCC) Major depressive disorder, single episode, moderate Malnutrition of mild degree (HCC) Malnutrition of mild degree [facility] Diagnosis Neoplasm related pain (acute) (chronic) [facility] Diagnosis [facility] related [facility] (acute) (chronic) [facility] Malignant neoplasm of prostate (HCC)- Primary Malignant neoplasm of prostate [facility] Diagnosis Malignant neoplasm of upper lobe of right lung (HCC)- Primary Malignant neoplasm of upper lobe, bronchus or lung Multiple myeloma not having achieved remission (HCC) Multiple myeloma, without mention of having achieved remission Neoplasm related pain (acute) (chronic) Anxiety Anxiety state, unspecified [facility] Diagnosis 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) Multiple myeloma not having achieved remission (HCC) Multiple myeloma, without mention of having achieved remission [facility] Diagnosis 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)- Primary Multiple myeloma not having achieved remission (HCC) Multiple myeloma, without mention of having achieved remission Anxiety about health Anemia, unspecified type [facility]* Diagnosis Anxiety Anxiety state, unspecified Neoplasm related pain (acute) (chronic) [facility] Diagnosis Multiple myeloma, remission status unspecified (HCC)- Primary [facility] Diagnosis 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)- Primary Multiple myeloma, remission status unspecified (HCC) Anemia, unspecified type Neuropathic pain Neuralgia, neuritis, and radiculitis, unspecified Anxiety Anxiety state, unspecified Neoplasm related pain (acute) (chronic) Malignant neoplasm of unspecified part of unspecified bronchus or lung (HCC) Malnutrition of mild degree (HCC) Malnutrition of mild degree Moderate major depression, single episode (HCC) Major depressive disorder, single episode, moderate [facility] Diagnosis 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) Multiple myeloma, remission status unspecified (HCC) Anemia, unspecified type Neuropathic pain Neuralgia, neuritis, and radiculitis, unspecified Anxiety Anxiety state, unspecified Neoplasm related pain (acute) (chronic) Malignant neoplasm of unspecified part of unspecified bronchus or lung (HCC) [facility]* Diagnosis Multiple myeloma, remission status unspecified (HCC)- Primary [facility]* Diagnosis 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)- Primary Multiple myeloma not having achieved remission (HCC) Multiple myeloma, without mention of having achieved remission Neuropathic pain Neuralgia, neuritis, and radiculitis, unspecified Anxiety Anxiety state, unspecified [facility]* Diagnosis 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) [facility]* Diagnosis Neoplasm related pain (acute) (chronic) [facility] Diagnosis Anxiety Anxiety state, unspecified Neoplasm related pain (acute) (chronic) [facility]* Diagnosis Malnutrition of mild degree (HCC) Malnutrition of mild degree Moderate major depression, single episode (HCC) Major depressive disorder, single episode, moderate Multiple myeloma, remission status unspecified (HCC) 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) [facility] Diagnosis Multiple myeloma, remission status unspecified (HCC)- Primary [facility] Diagnosis History of lung cancer Personal history of malignant neoplasm of bronchus and lung Chest wall pain Painful respiration 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 Multiple myeloma, remission status unspecified (HCC) [facility]* Diagnosis Neoplasm related pain (acute) (chronic) [facility] Diagnosis History of lung cancer- Primary Personal history of malignant neoplasm of bronchus and lung Chest wall pain Painful respiration 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 [facility]* Diagnosis Neoplasm related pain (acute) (chronic) Anxiety Anxiety state, unspecified [facility]* Diagnosis 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)- Primary [facility]* Diagnosis Multiple myeloma, remission status unspecified (HCC)- Primary [facility]* Diagnosis 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)- Primary Multiple myeloma not having achieved remission (HCC) Multiple myeloma, without mention of having achieved remission Neoplasm related pain (acute) (chronic) Anxiety Anxiety state, unspecified Neuropathic pain Neuralgia, neuritis, and radiculitis, unspecified [facility] Diagnosis Neoplasm related pain (acute) (chronic) [facility] Diagnosis Anxiety Anxiety state, unspecified Neoplasm related pain (acute) (chronic) [facility]* Diagnosis Neoplasm related pain (acute) (chronic) Multiple myeloma not having achieved remission (HCC) Multiple myeloma, without mention of having achieved remission [facility] Diagnosis Multiple myeloma not having achieved remission (HCC)- Primary Multiple myeloma, without mention of having achieved remission [facility]* Diagnosis Multiple myeloma not having achieved remission (HCC) Multiple myeloma, without mention of having achieved remission [facility] Diagnosis Multiple myeloma not having achieved remission (HCC)- Primary Multiple myeloma, without mention of having achieved remission 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) Anemia, unspecified type Malignant neoplasm of unspecified part of unspecified bronchus or lung (HCC) [facility] Diagnosis Multiple myeloma, remission status unspecified (HCC)- Primary [facility]* Diagnosis Neoplasm related pain (acute) (chronic) [facility]* Diagnosis Anxiety Anxiety state, unspecified Neoplasm related pain (acute) (chronic) [facility]* Diagnosis Neoplasm related pain (acute) (chronic) [facility] Diagnosis Neoplasm related pain (acute) (chronic) Anxiety Anxiety state, unspecified [facility]* Diagnosis Malignant neoplasm of unspecified part of unspecified bronchus or lung (HCC) [facility] Diagnosis Malignant neoplasm of unspecified part of unspecified bronchus or lung (HCC) [facility] Diagnosis Chest wall pain- Primary Painful respiration 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 History of lung cancer Personal history of malignant neoplasm of bronchus and lung [facility] Diagnosis Malignant neoplasm of upper lobe of right lung (HCC) Malignant neoplasm of upper lobe, bronchus or lung Multiple myeloma not having achieved remission (HCC) Multiple myeloma, without mention of having achieved remission [facility] Diagnosis Chest wall pain- Primary Painful respiration 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 History of lung cancer Personal history of malignant neoplasm of bronchus and lung [facility] Diagnosis Multiple myeloma not having achieved remission (HCC) Multiple myeloma, without mention of having achieved remission [facility] Diagnosis COPD exacerbation (CMS/HCC) Obstructive chronic bronchitis with exacerbation Immunodeficiency due to conditions classified elsewhere (CMS/HCC) Multiple myeloma not having achieved remission (CMS/HCC) Mild protein-calorie malnutrition (CMS/HCC) Malignant neoplasm of upper lobe, right bronchus or lung (CMS/HCC) Major depressive disorder, single episode, moderate (HCC) (CMS/HCC) Major depressive disorder, single episode, moderate Other emphysema (CMS/HCC) Other emphysema Malignant neoplasm of unspecified part of left bronchus or lung (CMS/HCC) [facility]* Diagnosis Malignant neoplasm of unspecified part of unspecified bronchus or lung (HCC) [facility] Neoplasm related pain (acute) (chronic) Anxiety Anxiety state, unspecified [facility] Diagnosis Benign prostatic hyperplasia with urinary frequency- Primary Benign prostatic hyperplasia with urinary frequency- Primary Benign prostatic hyperplasia with urinary frequency- Primary Benign prostatic hyperplasia with urinary frequency- Primary Benign prostatic hyperplasia with urinary frequency- Primary Benign prostatic hyperplasia with urinary frequency- Primary Benign prostatic hyperplasia with urinary frequency- Primary Elevated PSA- Primary Elevated prostate specific antigen (PSA) Benign prostatic hyperplasia with urinary frequency [facility] Multiple myeloma not having achieved remission (HCC) Multiple myeloma, without mention of having achieved remission 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) Anemia, unspecified type [facility] Diagnosis Multiple myeloma, remission status unspecified (HCC)- Primary [facility] Diagnosis 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)- Primary Multiple myeloma not having achieved remission (HCC) Multiple myeloma, without mention of having achieved remission Anxiety about health Pain Generalized pain [facility] Diagnosis Skin lesion- Primary Unspecified disorder of skin and subcutaneous tissue [facility] Diagnosis Melanocytic nevus of trunk- Primary Benign neoplasm of skin of trunk, except scrotum Seborrheic keratosis Lentigines Capillary angioma Nevus, non-neoplastic Seborrheic keratosis, inflamed Actinic keratosis documented in this encounter [facility] HealthcareEvaluation note* Diagnosis 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) documented [facility] this encounter [facility] HealthcareInstructionsNot on filedocumented in this [facility] for [facility] (narrative)* Diagnostic Procedure Only (Routine) - Pending Review Specialty Diagnoses / Procedures Referred By Contac t Referred To Contact XR IMAGING Diagnoses Multiple myeloma not having achieved remission (HCC) Procedures XR BONE SURVEY ROUTINE RADIOLOGIC EXAMINATION OSSEOUS SURVEY COMPL Ja Becker MD [address] [place] [address] [place] [address] Xr Imaging Referral ID Status Reason Start Date Expiration Date Visits Requested Visits Authorized [id number] Pending Review Auto-Generat ed Referral 10/06/2021 11/05/2022 1 1 [facility] Diagnostic Procedure Only (Routine) - Closed Specialty Diagnoses / Procedures Referred By Oz mack Referred To Contact MOLECULAR & FUNCTIONAL IMAGING Diagnoses Malignant neoplasm of unspecified part of unspecified bronchus or lung (HCC) Procedures NM PET/CT SKULL-THIGH SUBSEQUENT PET IMAGING CT ATTENUATION SKULL BASE MID-THIGH Ja Becker MD [address] [place] [address] [place] [address] Molecular & Functional Imaging [address] [place] [address] Referral ID Status Reason Start Date Expiration Date V isits Requested Visits Authorized [id number] Closed Auto-Generate d Referral 04/06/2022 05/06/2023 1 1 [facility] Medications Administered Section Inactive Administered Medications - up to 3 most recent administrations Medication Order MAR Action Action Date Dose Rate Site pamidronate 30 mg in NaCl 0.9% 250 mL (AREDIA) 30 mg, INTRAVENOUS, at 250 mL/hr, Administer over 1 Hours, ONCE, 1 dose, On Barbara 10/06/21 at 1100, APPROXIMATE TOTAL VOLUME mL - 24 HOUR EXP: 10/07/21 @ 1030 Hazardous Potential Reproductive Risk Drug: Use appropriate PPE. New Bag/Syringe/Bottle 10/06/2021 10:42 AM EDT 30 mg 250 mL/hr Inactive Administered Medications - up to 3 most recent administrations Medication Order MAR Action Action Date Dose Rate Site pamidronate 30 mg in NaCl 0.9% 250 mL (AREDIA) 30 mg, INTRAVENOUS, at 275 mL/hr, Administer over 1 Hours, ONCE, 1 dose, On Sun01/12/22 at 1030, APPROXIMATE TOTAL VOLUME 285 mL - 24 HOUR EXP: 1015 01/13/22 Hazardous Potential Reproductive Risk Drug: Use appropriate PPE. New Bag/Syringe/Bottle 01/12/2022 10:37 AM EDT 30 mg 275 mL/hr Inactive Administered Medications - up to 3 most recent administrations Medication Order MAR Action Action Date Dose Rate Site pamidronate 30 mg in NaCl 0.9% 250 mL (AREDIA) 30 mg, INTRAVENOUS, at 260 mL/hr, Administer over 1 Hours, ONCE, 1 dose, On Sun04/06/22 at 1400, APPROXIMATE TOTAL VOLUME mL - 24 HOUR EXP: 04/07/22 1350 Hazardous Potential Reproductive Risk Drug: Use appropriate PPE. New Bag/Syringe/Bottle 04/06/2022 2:08 PM EDT 30 mg 260 mL/hr Inactive Administered Medications - up to 3 most recent administrations Medication Order MAR Action Action Date Dose Rate Site CARBOplatin 188.4 mg in NaCl 0.9% 128.84 mL (PARAPLATIN) 188.4 mg (Target AUC = 2), INTRAVENOUS, Administer over 30 Minutes, ONCE, 1 dose, On Sun07/04/22 at 1500, EXP:07/05/2022@1500 Hazardous Chemotherapy Drug: Use appropriate PPE. Antineoplastic Irritant. New Bag/Syringe/Bottle 07/04/2022 4:33 PM EST 188.4 mg dexAMETHasone 20 mg in 0.9% NaCl 50 mL (DECADRON) 20 mg, INTRAVENOUS, Administer over 15 Minutes, ONCE, 1 dose, On Sun07/04/22 at 1430, Administer 30 minutes prior to infusion. Refrigerate. New Bag/Syringe/Bottle 07/04/2022 2:42 PM EST 20 mg diphenhydrAMINE 50 mg injection (BENADRYL) 50 mg, INTRAVENOUS, ONCE, 1 dose, On Sun07/04/22 at 1430, Give prior to chemotherapy. Given 07/04/2022 2:41 PM EST 50 mg famotidine 20 mg injection (PEPCID) 20 mg, INTRAVENOUS, ONCE, 1 dose, On Sun07/04/22 at 1430, Give prior to chemotherapy. REFRIGERATE Given 07/04/2022 2:39 PM EST 20 mg ondansetron (PF) 8 mg injection (ZOFRAN) 8 mg, INTRAVENOUS, ONCE, 1 dose, On Sun07/04/22 at 1430, Administer 30 minutes prior to infusion. Given 07/04/2022 2:39 PM EST 8 mg PACLitaxel 94.5 mg in NaCl 0.9% 290.75 mL (TAXOL) 94.5 mg (50 mg/m2 1.89 m2 Treatment Plan BSA from Recorded weight), INTRAVENOUS, Administer over 1 Hours, ONCE, 1 dose, On Sun07/04/22 at 1430, EXP:07/05/2022@2030 Hazardous Chemotherapy Drug: Use appropriate PPE. Antineoplastic Irritant with Vesicant Potential. Administer with non-DEHP 0.2 micron filter and tubing. New Bag/Syringe/Bottle 07/04/2022 3:24 PM EST 94.5 mg Inactive Administered Medications - up to 3 most recent administrations Medication Order MAR Action Action Date Dose Rate Site CARBOplatin 204.2 mg in NaCl 0.9% 130.42 mL (PARAPLATIN) 204.2 mg (Target AUC = 2), INTRAVENOUS, Administer over 30 Minutes, ONCE, 1 dose, On Sun07/11/22 at 1230, EXP: 12307/12/22 Hazardous Chemotherapy Drug: Use appropriate PPE. Antineoplastic Irritant. New Bag/Syringe/Bottle 07/11/2022 2:24 PM EST 204.2 mg dexAMETHasone 20 mg in 0.9% NaCl 50 mL (DECADRON) 20 mg, INTRAVENOUS, Administer over 15 Minutes, ONCE, 1 dose, On Sun07/11/22 at 1230, Administer 30 minutes prior to infusion. Refrigerate. New Bag/Syringe/Bottle 07/11/2022 12:50 PM EST 20 mg diphenhydrAMINE 50 mg injection (BENADRYL) 50 mg, INTRAVENOUS, ONCE, 1 dose, On Sun07/11/22 at 1230, Give prior to chemotherapy. Given 07/11/2022 12:44 PM EST 50 mg famotidine 20 mg injection (PEPCID) 20 mg, INTRAVENOUS, ONCE, 1 dose, On Sun07/11/22 at 1230, Give prior to chemotherapy. REFRIGERATE Given 07/11/2022 12:46 PM EST 20 mg ondansetron (PF) 8 mg injection (ZOFRAN) 8 mg, INTRAVENOUS, ONCE, 1 dose, On Sun07/11/22 at 1230, Administer 30 minutes prior to infusion. Given 07/11/2022 12:42 PM EST 8 mg PACLitaxel 94.5 mg in NaCl 0.9% 290.75 mL (TAXOL) 94.5 mg (50 mg/m2 1.89 m2 Treatment Plan BSA from Recorded weight), INTRAVENOUS, Administer over 1 Hours, ONCE, 1 dose, On Sun07/11/22 at 1230, Approx Total Volume: mL EXP:1231 07/12/22 Hazardous Chemotherapy Drug: Use appropriate PPE. Antineoplastic Irritant with Vesicant Potential. Administer with non-DEHP 0.2 micron filter and tubing. New Bag/Syringe/Bottle 07/11/2022 1:07 PM EST 94.5 mg pamidronate 30 mg in NaCl 0.9% 250 mL (AREDIA) 30 mg, INTRAVENOUS, at 260 mL/hr, Administer over 1 Hours, ONCE, 1 dose, On Sun07/11/22 at 1400, APPROXIMATE TOTAL VOLUME mL - 24 HOUR EXP: 07/12/22 1445 RT Hazardous Potential Reproductive Risk Drug: Use appropriate PPE. New Bag/Syringe/Bottle 07/11/2022 1:54 PM EST 30 mg 260 mL/hr Inactive Administered Medications - up to 3 most recent administrations Medication Order MAR Action Action Date Dose Rate Site CARBOplatin 188.4 mg in NaCl 0.9% 128.84 mL (PARAPLATIN) 188.4 mg (Target AUC = 2), INTRAVENOUS, Administer over 30 Minutes, ONCE, 1 dose, On Sun07/18/22 at 1030, EXP:07/19/2022@1030 Hazardous Chemotherapy Drug: Use appropriate PPE. Antineoplastic Irritant. New Bag/Syringe/Bottle 07/18/2022 12:17 PM EST 188.4 mg dexAMETHasone 20 mg in 0.9% NaCl 50 mL (DECADRON) 20 mg, INTRAVENOUS, Administer over 15 Minutes, ONCE, 1 dose, On Sun07/18/22 at 1030, Administer 30 minutes prior to infusion. Refrigerate. New Bag/Syringe/Bottle 07/18/2022 10:40 AM EST 20 mg diphenhydrAMINE 50 mg injection (BENADRYL) 50 mg, INTRAVENOUS, ONCE, 1 dose, On Sun07/18/22 at 1030, Give prior to chemotherapy. Given 07/18/2022 10:38 AM EST 50 mg famotidine 20 mg injection (PEPCID) 20 mg, INTRAVENOUS, ONCE, 1 dose, On Sun07/18/22 at 1030, Give prior to chemotherapy. REFRIGERATE Given 07/18/2022 10:34 AM EST 20 mg ondansetron (PF) 8 mg injection (ZOFRAN) 8 mg, INTRAVENOUS, ONCE, 1 dose, On Sun07/18/22 at 1030, Administer 30 minutes prior to infusion. Given 07/18/2022 10:36 AM EST 8 mg PACLitaxel 93.48 mg in NaCl 0.9% 290.58 mL (TAXOL) 93.48 mg (rounded from 93.5 mg = 50 mg/m2 1.87 m2 Treatment Plan BSA from Recorded weight), INTRAVENOUS, Administer over 1 Hours, ONCE, 1 dose, On Sun07/18/22 at 1030, Approx Total Volume: mL EXP:07/19/2022@1630 Hazardous Chemotherapy Drug: Use appropriate PPE. Antineoplastic Irritant with Vesicant Potential. Administer with non-DEHP 0.2 micron filter and tubing. New Bag/Syringe/Bottle 07/18/2022 11:05 AM EST 93.48 mg Inactive Administered Medications - up to 3 most recent administrations Medication Order MAR Action Action Date Dose Rate Site CARBOplatin 188.4 mg in NaCl 0.9% 128.84 mL (PARAPLATIN) 188.4 mg (Target AUC = 2), INTRAVENOUS, Administer over 30 Minutes, ONCE, 1 dose, On Sun07/25/22 at 1000, EXP:07/26/22 1000 RT Hazardous Chemotherapy Drug: Use appropriate PPE. Antineoplastic Irritant. New Bag/Syringe/Bottle 07/25/2022 11:53 AM EST 188.4 mg dexAMETHasone 20 mg in 0.9% NaCl 50 mL (DECADRON) 20 mg, INTRAVENOUS, Administer over 15 Minutes, ONCE, 1 dose, On Sun07/25/22 at 1000, Administer 30 minutes prior to infusion. Refrigerate. New Bag/Syringe/Bottle 07/25/2022 9:54 AM EST 20 mg diphenhydrAMINE 50 mg injection (BENADRYL) 50 mg, INTRAVENOUS, ONCE, 1 dose, On Sun07/25/22 at 1000, Give prior to chemotherapy. Given 07/25/2022 9:54 AM EST 50 mg famotidine 20 mg injection (PEPCID) 20 mg, INTRAVENOUS, ONCE, 1 dose, On Sun07/25/22 at 1000, Give prior to chemotherapy. REFRIGERATE Given 07/25/2022 9:54 AM EST 20 mg ondansetron (PF) 8 mg injection (ZOFRAN) 8 mg, INTRAVENOUS, ONCE, 1 dose, On Sun07/25/22 at 1000, Administer 30 minutes prior to infusion. Given 07/25/2022 9:54 AM EST 8 mg PACLitaxel 93.48 mg in NaCl 0.9% 290.58 mL (TAXOL) 93.48 mg (rounded from 93.5 mg = 50 mg/m2 1.87 m2 Treatment Plan BSA from Recorded weight), INTRAVENOUS, Administer over 1 Hours, ONCE, 1 dose, On Sun07/25/22 at 1000, Approx Total Volume: mL EXP:07/26/22 1600 RT Hazardous Chemotherapy Drug: Use appropriate PPE. Antineoplastic Irritant with Vesicant Potential. Administer with non-DEHP 0.2 micron filter and tubing. New Bag/Syringe/Bottle 07/25/2022 10:47 AM EST 93.48 mg Inactive Administered Medications - up to 3 most recent administrations Medication Order MAR Action Action Date Dose Rate Site NaCl 0.9% 1,000 mL iv bolus 1,000 mL, INTRAVENOUS, at 999 mL/hr, Administer over 1 Hours, ONCE, 1 dose, On Sun10/02/22 at 1430 New Bag/Syringe/Bottle 10/02/2022 1:25 PM EDT 1,000 mL 999 mL/hr NaCl 0.9% 500 mL iv bolus 500 mL, INTRAVENOUS, at 999 mL/hr, Administer over 0.5 Hours, ONCE, 1 dose, On Sun10/02/22 at 1600 New Bag/Syringe/Bottle 10/02/2022 2:45 PM EDT 500 mL 999 mL/hr naloxone spry 1 [place] 1 [place], NASAL, NEEDED, 2 doses, Starting on Sun10/02/22 at 1547, Until Sun10/02/22 at 1509, decreased mental status Given 10/02/2022 3:09 PM EDT 1 [place] Given 10/02/2022 2:30 PM EDT 1 [place] Inactive Administered Medications - up to 3 most recent administrations Medication Order [facility] Action Action Date Dose Rate Site pamidronate 30 mg in NaCl 0.9% 250 mL (AREDIA) 30 mg, INTRAVENOUS, at 260 mL/hr, Administer over 1 Hours, ONCE, 1 dose, On Sun10/31/22 at 1530, APPROXIMATE TOTAL VOLUME mL - 24 HOUR EXP: 11/01/22 1530 RT Hazardous Potential Reproductive Risk Drug: Use appropriate PPE. New Bag/Syringe/Bottle 10/31/2022 3:35 PM EDT 30 mg 260 mL/hr sodium chloride 0.9 % (flush) 10-20 mL (BD POSIFLUSH) 10-20 mL, INTRAVENOUS, DIRECTED, Starting on Sun10/31/22 at 1530, Until Sun10/31/22 at 1837, If patient has a heparin allergy: IVADS not in use should be accessed and flushed once every 4 to 6 weeks with 10 mL of 0.9% NaCl. Upon de-access of Rolle needle, when re-access is not indicated, ports will be flushed with 10 mL of 0.9% NaCl. Ports should be flushed with 20 mL of 0.9% NaCl after blood draws. Given 10/31/2022 4:35 PM EDT 20 mL Inactive Administered Medications - up to 3 most recent administrations Medication Order [facility] Action Action Date Dose Rate Site NaCl 0.9% 1,000 mL INTRAVENOUS, at 999 mL/hr, Administer over 1 Hours, ONCE, 1 dose, On Sun04/02/23 at 1100 New Bag/Syringe/Bottle 04/02/2023 10:40 AM EDT 999 mL/hr Inactive Administered Medications - up to 3 most recent administrations Medication Order MAR Action Action Dose Rate Site pamidronate 30 mg in NaCl 0.9% 250 mL (AREDIA) 30 mg, INTRAVENOUS, at 260 mL/hr, Administer over 1 Hours, ONCE, 1 dose, On Sun05/14/23 at 1030, APPROXIMATE TOTAL VOLUME mL - 24 HOUR EXP: 1030 05/15/23 RT Hazardous Potential Reproductive Risk Drug: Use appropriate PPE. New Bag/Syringe/Bottle 05/14/2023 10:46 AM EST 30 mg 260 mL/hr Reason for Referral Specialty Diagnoses / Procedures Referred By Contac t Referred To Contact CT IMAGING Diagnoses Malignant neoplasm of unspecified part of unspecified bronchus or lung (HCC) Procedures CT CHEST WO IVCON DIAGNOSTIC COMPUTED TOMOGRAPHY THORAX W/O CNTRST Ja Becker MD [address] [place] [address] Ct Imaging Referral ID Status Reason Start Date Expiration Date Visits Requested Visits Authorized [id number] Authorized Auto-Generat ed Referral 03/30/2022 02/11/2023 1 1 Specialty Diagnoses / Procedures Referred By Contac t Referred To Contact Diagnoses Malignant neoplasm of upper lobe of right lung (HCC) Procedures CT SIM PLANNING RADIATION ONCOLOGY THER RAD SIMULAJ-AIDED FIELD SETTING COMPLEX Marisabel Saunders MD [address] [place] [address] Referral ID Status Reason Start Date Expiration Date Visits Requested Visits Authorized [id number] Pending Review PCP Requested Referral 09/20/2022 1 1 Specialty Diagnoses / Procedures Referred By Contac t Referred To Contact Dermatology Diagnoses Lesion of skin of right ear Procedures CONSULT TO DERMATOLOGY OFFICE/OUTPATIENT NEW HIGH MDM 60-74 MINUTES Amber Rodriguez, [employer]ER [address] [place] [address] [place] [address] Referral ID Status Reason Start Date Expiration Date Visits Requested Visits Authorized [id number] Authorized PCP Requested Referral 07/11/2022 07/11/2023 1 1 Referral ID Status Reason Start Date Expiration Date Visits Requested Visits Authorized [id number] Authorized Auto-Generat ed Referral 09/11/2022 10/11/2023 1 1 Specialty Diagnoses / Procedures Referred By Contac t Referred To Contact MR IMAGING Diagnoses 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) Procedures MRI BRAIN WO/W IVCON MRI BRAIN BRAIN STEM W/O W/CONTRAST MATERIAL Amber Rodriguez, [employer]ER [address] [place] [address] Mr Imaging Referral ID Status Reason Start Date Expiration Date Visits Requested Visits Authorized [id number] Pending Review Auto-Generat ed Referral 12/04/2022 01/03/2024 1 1 Referral ID Status Reason Start Date Expiration Date Visits Requested Visits Authorized [id number] Authorized Auto-Generat ed Referral 01/01/2023 01/31/2024 1 1 Specialty Diagnoses / Procedures Referred By Contac t Referred To Contact CT IMAGING Diagnoses Malignant neoplasm of unspecified part of unspecified bronchus or lung (HCC) Procedures CT CHEST WO IVCON DIAGNOSTIC COMPUTED TOMOGRAPHY THORAX W/O CNTRST Amber Rodriguez, [employer]ER [address] [address] [place] [address] Referral ID Status Reason Start Date Expiration Date Visits Requested Visits Authorized [id number] Authorized Auto-Generat ed Referral 04/02/2023 05/01/2024 1 1 Specialty Diagnoses / Procedures Referred By Contac t Referred To Contact CT IMAGING Diagnoses Malignant neoplasm of unspecified part of unspecified bronchus or lung (HCC) Procedures CT CHEST WO IVCON DIAGNOSTIC COMPUTED TOMOGRAPHY THORAX W/O CNTRST Glenys Kurtz PA-C [address] [place] [address] [place] [address] Referral ID Status Reason Start Date Expiration Date Visits Requested Visits Authorized [id number] Authorized Auto-Generat ed Referral 02/15/2025 1 1 Specialty Diagnoses / Procedures Referred By Contac t Referred To Contact CT IMAGING Diagnoses Malignant neoplasm of unspecified part of unspecified bronchus or lung (HCC) Procedures CT CHEST WO IVCON DIAGNOSTIC COMPUTED TOMOGRAPHY THORAX W/O CNTRST Ja Becker MD [address] [place] [address] [place] [address] Referral ID Status Reason Start Date Expiration Date V isits Requested Visits Authorized [id number] Closed Auto-Generate d Referral 08/06/2023 09/04/2024 1 1 Referral ID Status Reason Start Date Expiration Date V isits Requested Visits Authorized [id number] Closed Auto-Generate d Referral 09/03/2023 08/07/2024 1 1 Referral ID Status Reason Start Date Expiration Date V isits Requested Visits Authorized [id number] Closed Auto-Generate d Referral 04/02/2023 05/01/2024 1 1 Referral ID Status Reason Start Date Expiration Date V isits Requested Visits Authorized [id number] Closed Auto-Generate d Referral 01/01/2023 01/31/2024 1 1 Referral ID Status Reason Start Date Expiration Date V isits Requested Visits Authorized [id number] Closed Auto-Generate d Referral 09/11/2022 10/11/2023 1 1 Referral ID Status Reason Start Date Expiration Date V isits Requested Visits Authorized [id number] Closed Auto-Generate d Referral 03/30/2022 02/11/2023 1 1 Specialty Diagnoses / Procedures Referred By Oz mack Referred To Contact CT IMAGING Diagnoses Lung nodules Procedures CT CHEST W IVCON CAT SCAN OF CHEST CONTRAST Ja Becker MD [address] [place] [address] [place] [address] [place] [address] Referral ID Status Reason Start Date Expiration Date V isits Requested Visits Authorized [id number] Closed Auto-Generate d Referral 07/07/2021 08/06/2022 1 1 Referral ID Status Reason Start Date Expiration Date V isits Requested Visits Authorized [id number] Closed Auto-Generate d Referral 04/18/2024 02/15/2025 1 1 Summary Purpose Family History No Family History Records FoundNo Family History Records FoundNo Family History Records FoundNo Family History Records FoundNo Family History Records FoundNo Family History Records FoundNo Family History Records FoundNo Family History Records FoundNo Family History Records FoundNo Family History Records Found Advance Directives Advance Directive Response Recorded Date/ Time Advance Directives No March 11:27am Date Activated Date Inactivated Comments 04/25/2019 7:11 AM 04/30/2019 2:55 PM Chief Complaint and Reason for Visit Chief Complaint lightheaded Chief Complaint lightheaded c34.01 Additional Source Comments Source Comments (unrecognize d section and content) In the event this informatio n is protected by the Federal Confidentiality of Alcohol and Drug Abuse Patient Records regulations: The Federal rules restrict any use of the information to criminally investigate or prosecute any alcohol or drug abuse patient.[facility] the event this information is protected by the Federal Confidentiality of Alcohol and Drug Abuse Patient Records regulations: The Federal rules restrict any use of the information to criminally investigate or prosecute any alcohol or drug abuse patient.[facility] the event this information is protected by the Federal Confidentiality of Alcohol and Drug Abuse Patient Records regulations: The Federal rules restrict any use of the information to criminally investigate or prosecute any alcohol or drug abuse patient.[facility] the event this information is protected by the Federal Confidentiality of Alcohol and Drug Abuse Patient Records regulations: The Federal rules restrict any use of the information to criminally investigate or prosecute any alcohol or drug abuse patient.[facility] HealthIn the event this information is protected by the Federal Confidentiality of Alcohol and Drug Abuse Patient Records regulations: The Federal rules restrict any use of the information to criminally investigate or prosecute any alcohol or drug abuse patient.[facility] the event this information is protected by the Federal Confidentiality of Alcohol and Drug Abuse Patient Records regulations: The Federal rules restrict any use of the information to criminally investigate or prosecute any alcohol or drug abuse patient.[facility] HealthIn the event this information is protected by the Federal Confidentiality of Alcohol and Drug Abuse Patient Records regulations: The Federal rules restrict any use of the information to criminally investigate or prosecute any alcohol or drug abuse patient.[facility] the event this information is protected by the Federal Confidentiality of Alcohol and Drug Abuse Patient Records regulations: The Federal rules restrict any use of the information to criminally investigate or prosecute any alcohol or drug abuse patient.[facility] the event this information is protected by the Federal Confidentiality of Alcohol and Drug Abuse Patient Records regulations: The Federal rules restrict any use of the information to criminally investigate or prosecute any alcohol or drug abuse patient.[facility] the event this information is protected by the Federal Confidentiality of Alcohol and Drug Abuse Patient Records regulations: The Federal rules restrict any use of the information to criminally investigate or prosecute any alcohol or drug abuse patient.[facility] the event this information is protected by the Federal Confidentiality of Alcohol and Drug Abuse Patient Records regulations: The Federal rules restrict any use of the information to criminally investigate or prosecute any alcohol or drug abuse patient.[facility] HealthIn the event this information is protected by the Federal Confidentiality of Alcohol and Drug Abuse Patient Records regulations: The Federal rules restrict any use of the information to criminally investigate or prosecute any alcohol or drug abuse patient.[facility] the event this information is protected by the Federal Confidentiality of Alcohol and Drug Abuse Patient Records regulations: The Federal rules restrict any use of the information to criminally investigate or prosecute any alcohol or drug abuse patient.[facility]In the event this information is protected by the Federal Confidentiality of Alcohol and Drug Abuse Patient Records regulations: The Federal rules restrict any use of the information to criminally investigate or prosecute any alcohol or drug abuse patient.[facility]In the event this information is protected by the Federal Confidentiality of Alcohol and Drug Abuse Patient Records regulations: The Federal rules restrict any use of the information to criminally investigate or prosecute any alcohol or drug abuse patient.[facility]In the event this information is protected by the Federal Confidentiality of Alcohol and Drug Abuse Patient Records regulations: The Federal rules restrict any use of the information to criminally investigate or prosecute any alcohol or drug abuse patient.[facility]In the event this information is protected by the Federal Confidentiality of Alcohol and Drug Abuse Patient Records regulations: The Federal rules restrict any use of the information to criminally investigate or prosecute any alcohol or drug abuse patient.[facility] the event this information is protected by the Federal Confidentiality of Alcohol and Drug Abuse Patient Records regulations: The Federal rules restrict any use of the information to criminally investigate or prosecute any alcohol or drug abuse patient.[facility]In the event this information is protected by the Federal Confidentiality of Alcohol and Drug Abuse Patient Records regulations: The Federal rules restrict any use of the information to criminally investigate or prosecute any alcohol or drug abuse patient.[facility] HealthIn the event this information is protected by the Federal Confidentiality of Alcohol and Drug Abuse Patient Records regulations: The Federal rules restrict any use of the information to criminally investigate or prosecute any alcohol or drug abuse patient.[facility]In the event this information is protected by the Federal Confidentiality of Alcohol and Drug Abuse Patient Records regulations: The Federal rules restrict any use of the information to criminally investigate or prosecute any alcohol or drug abuse patient.[facility]In the event this information is protected by the Federal Confidentiality of Alcohol and Drug Abuse Patient Records regulations: The Federal rules restrict any use of the information to criminally investigate or prosecute any alcohol or drug abuse patient.[facility]In the event this information is protected by the Federal Confidentiality of Alcohol and Drug Abuse Patient Records regulations: The Federal rules restrict any use of the information to criminally investigate or prosecute any alcohol or drug abuse patient.[facility]In the event this information is protected by the Federal Confidentiality of Alcohol and Drug Abuse Patient Records regulations: The Federal rules restrict any use of the information to criminally investigate or prosecute any alcohol or drug abuse patient.[facility]In the event this information is protected by the Federal Confidentiality of Alcohol and Drug Abuse Patient Records regulations: The Federal rules restrict any use of the information to criminally investigate or prosecute any alcohol or drug abuse patient.[facility]In the event this information is protected by the Federal Confidentiality of Alcohol and Drug Abuse Patient Records regulations: The Federal rules restrict any use of the information to criminally investigate or prosecute any alcohol or drug abuse patient.[facility]In the event this information is protected by the Federal Confidentiality of Alcohol and Drug Abuse Patient Records regulations: The Federal rules restrict any use of the information to criminally investigate or prosecute any alcohol or drug abuse patient.[facility]In the event this information is protected by the Federal Confidentiality of Alcohol and Drug Abuse Patient Records regulations: The Federal rules restrict any use of the information to criminally investigate or prosecute any alcohol or drug abuse patient.[facility]In the event this information is protected by the Federal Confidentiality of Alcohol and Drug Abuse Patient Records regulations: The Federal rules restrict any use of the information to criminally investigate or prosecute any alcohol or drug abuse patient.[facility]In the event this information is protected by the Federal Confidentiality of Alcohol and Drug Abuse Patient Records regulations: The Federal rules restrict any use of the information to criminally investigate or prosecute any alcohol or drug abuse patient.[facility]In the event this information is protected by the Federal Confidentiality of Alcohol and Drug Abuse Patient Records regulations: The Federal rules restrict any use of the information to criminally investigate or prosecute any alcohol or drug abuse patient.[facility]In the event this information is protected by the Federal Confidentiality of Alcohol and Drug Abuse Patient Records regulations: The Federal rules restrict any use of the information to criminally investigate or prosecute any alcohol or drug abuse patient.[facility]In the event this information is protected by the Federal Confidentiality of Alcohol and Drug Abuse Patient Records regulations: The Federal rules restrict any use of the information to criminally investigate or prosecute any alcohol or drug abuse patient.[facility]In the event this information is protected by the Federal Confidentiality of Alcohol and Drug Abuse Patient Records regulations: The Federal rules restrict any use of the information to criminally investigate or prosecute any alcohol or drug abuse patient.[facility]In the event this information is protected by the Federal Confidentiality of Alcohol and Drug Abuse Patient Records regulations: The Federal rules restrict any use of the information to criminally investigate or prosecute any alcohol or drug abuse patient.[facility]In the event this information is protected by the Federal Confidentiality of Alcohol and Drug Abuse Patient Records regulations: The Federal rules restrict any use of the information to criminally investigate or prosecute any alcohol or drug abuse patient.[facility]In the event this information is protected by the Federal Confidentiality of Alcohol and Drug Abuse Patient Records regulations: The Federal rules restrict any use of the information to criminally investigate or prosecute any alcohol or drug abuse patient.[facility]In the event this information is protected by the Federal Confidentiality of Alcohol and Drug Abuse Patient Records regulations: The Federal rules restrict any use of the information to criminally investigate or prosecute any alcohol or drug abuse patient.[facility]In the event this information is protected by the Federal Confidentiality of Alcohol and Drug Abuse Patient Records regulations: The Federal rules restrict any use of the information to criminally investigate or prosecute any alcohol or drug abuse patient.[facility]In the event this information is protected by the Federal Confidentiality of Alcohol and Drug Abuse Patient Records regulations: The Federal rules restrict any use of the information to criminally investigate or prosecute any alcohol or drug abuse patient.[facility]In the event this information is protected by the Federal Confidentiality of Alcohol and Drug Abuse Patient Records regulations: The Federal rules restrict any use of the information to criminally investigate or prosecute any alcohol or drug abuse patient.[facility]In the event this information is protected by the Federal Confidentiality of Alcohol and Drug Abuse Patient Records regulations: The Federal rules restrict any use of the information to criminally investigate or prosecute any alcohol or drug abuse patient.[facility]In the event this information is protected by the Federal Confidentiality of Alcohol and Drug Abuse Patient Records regulations: The Federal rules restrict any use of the information to criminally investigate or prosecute any alcohol or drug abuse patient.[facility]In the event this information is protected by the Federal Confidentiality of Alcohol and Drug Abuse Patient Records regulations: The Federal rules restrict any use of the information to criminally investigate or prosecute any alcohol or drug abuse patient.[facility]In the event this information is protected by the Federal Confidentiality of Alcohol and Drug Abuse Patient Records regulations: The Federal rules restrict any use of the information to criminally investigate or prosecute any alcohol or drug abuse patient.[facility]In the event this information is protected by the Federal Confidentiality of Alcohol and Drug Abuse Patient Records regulations: The Federal rules restrict any use of the information to criminally investigate or prosecute any alcohol or drug abuse patient.[facility]In the event this information is protected by the Federal Confidentiality of Alcohol and Drug Abuse Patient Records regulations: The Federal rules restrict any use of the information to criminally investigate or prosecute any alcohol or drug abuse patient.[facility]In the event this information is protected by the Federal Confidentiality of Alcohol and Drug Abuse Patient Records regulations: The Federal rules restrict any use of the information to criminally investigate or prosecute any alcohol or drug abuse patient.[facility]In the event this information is protected by the Federal Confidentiality of Alcohol and Drug Abuse Patient Records regulations: The Federal rules restrict any use of the information to criminally investigate or prosecute any alcohol or drug abuse patient.[facility]In the event this information is protected by the Federal Confidentiality of Alcohol and Drug Abuse Patient Records regulations: The Federal rules restrict any use of the information to criminally investigate or prosecute any alcohol or drug abuse patient.[facility]In the event this information is protected by the Federal Confidentiality of Alcohol and Drug Abuse Patient Records regulations: The Federal rules restrict any use of the information to criminally investigate or prosecute any alcohol or drug abuse patient.[facility]In the event this information is protected by the Federal Confidentiality of Alcohol and Drug Abuse Patient Records regulations: The Federal rules restrict any use of the information to criminally investigate or prosecute any alcohol or drug abuse patient.[facility]In the event this information is protected by the Federal Confidentiality of Alcohol and Drug Abuse Patient Records regulations: The Federal rules restrict any use of the information to criminally investigate or prosecute any alcohol or drug abuse patient.[facility]In the event this information is protected by the Federal Confidentiality of Alcohol and Drug Abuse Patient Records regulations: The Federal rules restrict any use of the information to criminally investigate or prosecute any alcohol or drug abuse patient.[facility]In the event this information is protected by the Federal Confidentiality of Alcohol and Drug Abuse Patient Records regulations: The Federal rules restrict any use of the information to criminally investigate or prosecute any alcohol or drug abuse patient.[facility]In the event this information is protected by the Federal Confidentiality of Alcohol and Drug Abuse Patient Records regulations: The Federal rules restrict any use of the information to criminally investigate or prosecute any alcohol or drug abuse patient.[facility]In the event this information is protected by the Federal Confidentiality of Alcohol and Drug Abuse Patient Records regulations: The Federal rules restrict any use of the information to criminally investigate or prosecute any alcohol or drug abuse patient.[facility]In the event this information is protected by the Federal Confidentiality of Alcohol and Drug Abuse Patient Records regulations: The Federal rules restrict any use of the information to criminally investigate or prosecute any alcohol or drug abuse patient.[facility]In the event this information is protected by the Federal Confidentiality of Alcohol and Drug Abuse Patient Records regulations: The Federal rules restrict any use of the information to criminally investigate or prosecute any alcohol or drug abuse patient.[facility] the event this information is protected by the Federal Confidentiality of Alcohol and Drug Abuse Patient Records regulations: The Federal rules restrict any use of the information to criminally investigate or prosecute any alcohol or drug abuse patient.[facility]In the event this information is protected by the Federal Confidentiality of Alcohol and Drug Abuse Patient Records regulations: The Federal rules restrict any use of the information to criminally investigate or prosecute any alcohol or drug abuse patient.[facility]In the event this information is protected by the Federal Confidentiality of Alcohol and Drug Abuse Patient Records regulations: The Federal rules restrict any use of the information to criminally investigate or prosecute any alcohol or drug abuse patient.[facility]In the event this information is protected by the Federal Confidentiality of Alcohol and Drug Abuse Patient Records regulations: The Federal rules restrict any use of the information to criminally investigate or prosecute any alcohol or drug abuse patient.[facility]In the event this information is protected by the Federal Confidentiality of Alcohol and Drug Abuse Patient Records regulations: The Federal rules restrict any use of the information to criminally investigate or prosecute any alcohol or drug abuse patient.[facility]In the event this information is protected by the Federal Confidentiality of Alcohol and Drug Abuse Patient Records regulations: The Federal rules restrict any use of the information to criminally investigate or prosecute any alcohol or drug abuse patient.[facility]In the event this information is protected by the Federal Confidentiality of Alcohol and Drug Abuse Patient Records regulations: The Federal rules restrict any use of the information to criminally investigate or prosecute any alcohol or drug abuse patient.[facility]In the event this information is protected by the Federal Confidentiality of Alcohol and Drug Abuse Patient Records regulations: The Federal rules restrict any use of the information to criminally investigate or prosecute any alcohol or drug abuse patient.[facility]In the event this information is protected by the Federal Confidentiality of Alcohol and Drug Abuse Patient Records regulations: The Federal rules restrict any use of the information to criminally investigate or prosecute any alcohol or drug abuse patient.[facility]In the event this information is protected by the Federal Confidentiality of Alcohol and Drug Abuse Patient Records regulations: The Federal rules restrict any use of the information to criminally investigate or prosecute any alcohol or drug abuse patient.[facility]In the event this information is protected by the Federal Confidentiality of Alcohol and Drug Abuse Patient Records regulations: The Federal rules restrict any use of the information to criminally investigate or prosecute any alcohol or drug abuse patient.[facility]In the event this information is protected by the Federal Confidentiality of Alcohol and Drug Abuse Patient Records regulations: The Federal rules restrict any use of the information to criminally investigate or prosecute any alcohol or drug abuse patient.[facility]In the event this information is protected by the Federal Confidentiality of Alcohol and Drug Abuse Patient Records regulations: The Federal rules restrict any use of the information to criminally investigate or prosecute any alcohol or drug abuse patient.[facility]In the event this information is protected by the Federal Confidentiality of Alcohol and Drug Abuse Patient Records regulations: The Federal rules restrict any use of the information to criminally investigate or prosecute any alcohol or drug abuse patient.[facility]In the event this information is protected by the Federal Confidentiality of Alcohol and Drug Abuse Patient Records regulations: The Federal rules restrict any use of the information to criminally investigate or prosecute any alcohol or drug abuse patient.[facility]In the event this information is protected by the Federal Confidentiality of Alcohol and Drug Abuse Patient Records regulations: The Federal rules restrict any use of the information to criminally investigate or prosecute any alcohol or drug abuse patient.[facility]In the event this information is protected by the Federal Confidentiality of Alcohol and Drug Abuse Patient Records regulations: The Federal rules restrict any use of the information to criminally investigate or prosecute any alcohol or drug abuse patient.[facility]In the event this information is protected by the Federal Confidentiality of Alcohol and Drug Abuse Patient Records regulations: The Federal rules restrict any use of the information to criminally investigate or prosecute any alcohol or drug abuse patient.[facility]In the event this information is protected by the Federal Confidentiality of Alcohol and Drug Abuse Patient Records regulations: The Federal rules restrict any use of the information to criminally investigate or prosecute any alcohol or drug abuse patient.[facility]In the event this information is protected by the Federal Confidentiality of Alcohol and Drug Abuse Patient Records regulations: The Federal rules restrict any use of the information to criminally investigate or prosecute any alcohol or drug abuse patient.[facility]In the event this information is protected by the Federal Confidentiality of Alcohol and Drug Abuse Patient Records regulations: The Federal rules restrict any use of the information to criminally investigate or prosecute any alcohol or drug abuse patient.[facility]In the event this information is protected by the Federal Confidentiality of Alcohol and Drug Abuse Patient Records regulations: The Federal rules restrict any use of the information to criminally investigate or prosecute any alcohol or drug abuse patient.[facility]In the event this information is protected by the Federal Confidentiality of Alcohol and Drug Abuse Patient Records regulations: The Federal rules restrict any use of the information to criminally investigate or prosecute any alcohol or drug abuse patient.[facility]In the event this information is protected by the Federal Confidentiality of Alcohol and Drug Abuse Patient Records regulations: The Federal rules restrict any use of the information to criminally investigate or prosecute any alcohol or drug abuse patient.[facility]In the event this information is protected by the Federal Confidentiality of Alcohol and Drug Abuse Patient Records regulations: The Federal rules restrict any use of the information to criminally investigate or prosecute any alcohol or drug abuse patient.[facility]In the event this information is protected by the Federal Confidentiality of Alcohol and Drug Abuse Patient Records regulations: The Federal rules restrict any use of the information to criminally investigate or prosecute any alcohol or drug abuse patient.[facility]In the event this information is protected by the Federal Confidentiality of Alcohol and Drug Abuse Patient Records regulations: The Federal rules restrict any use of the information to criminally investigate or prosecute any alcohol or drug abuse patient.[facility]In the event this information is protected by the Federal Confidentiality of Alcohol and Drug Abuse Patient Records regulations: The Federal rules restrict any use of the information to criminally investigate or prosecute any alcohol or drug abuse patient.[facility]In the event this information is protected by the Federal Confidentiality of Alcohol and Drug Abuse Patient Records regulations: The Federal rules restrict any use of the information to criminally investigate or prosecute any alcohol or drug abuse patient.[facility]In the event this information is protected by the Federal Confidentiality of Alcohol and Drug Abuse Patient Records regulations: The Federal rules restrict any use of the information to criminally investigate or prosecute any alcohol or drug abuse patient.[facility]In the event this information is protected by the Federal Confidentiality of Alcohol and Drug Abuse Patient Records regulations: The Federal rules restrict any use of the information to criminally investigate or prosecute any alcohol or drug abuse patient.[facility]In the event this information is protected by the Federal Confidentiality of Alcohol and Drug Abuse Patient Records regulations: The Federal rules restrict any use of the information to criminally investigate or prosecute any alcohol or drug abuse patient.[facility]In the event this information is protected by the Federal Confidentiality of Alcohol and Drug Abuse Patient Records regulations: The Federal rules restrict any use of the information to criminally investigate or prosecute any alcohol or drug abuse patient.[facility]In the event this information is protected by the Federal Confidentiality of Alcohol and Drug Abuse Patient Records regulations: The Federal rules restrict any use of the information to criminally investigate or prosecute any alcohol or drug abuse patient.[facility]In the event this information is protected by the Federal Confidentiality of Alcohol and Drug Abuse Patient Records regulations: The Federal rules restrict any use of the information to criminally investigate or prosecute any alcohol or drug abuse patient.[facility]In the event this information is protected by the Federal Confidentiality of Alcohol and Drug Abuse Patient Records regulations: The Federal rules restrict any use of the information to criminally investigate or prosecute any alcohol or drug abuse patient.[facility]In the event this information is protected by the Federal Confidentiality of Alcohol and Drug Abuse Patient Records regulations: The Federal rules restrict any use of the information to criminally investigate or prosecute any alcohol or drug abuse patient.[facility]In the event this information is protected by the Federal Confidentiality of Alcohol and Drug Abuse Patient Records regulations: The Federal rules restrict any use of the information to criminally investigate or prosecute any alcohol or drug abuse patient.[facility]In the event this information is protected by the Federal Confidentiality of Alcohol and Drug Abuse Patient Records regulations: The Federal rules restrict any use of the information to criminally investigate or prosecute any alcohol or drug abuse patient.[facility]In the event this information is protected by the Federal Confidentiality of Alcohol and Drug Abuse Patient Records regulations: The Federal rules restrict any use of the information to criminally investigate or prosecute any alcohol or drug abuse patient.[facility]In the event this information is protected by the Federal Confidentiality of Alcohol and Drug Abuse Patient Records regulations: The Federal rules restrict any use of the information to criminally investigate or prosecute any alcohol or drug abuse patient.[facility]In the event this information is protected by the Federal Confidentiality of Alcohol and Drug Abuse Patient Records regulations: The Federal rules restrict any use of the information to criminally investigate or prosecute any alcohol or drug abuse patient.[facility]In the event this information is protected by the Federal Confidentiality of Alcohol and Drug Abuse Patient Records regulations: The Federal rules restrict any use of the information to criminally investigate or prosecute any alcohol or drug abuse patient.[facility]In the event this information is protected by the Federal Confidentiality of Alcohol and Drug Abuse Patient Records regulations: The Federal rules restrict any use of the information to criminally investigate or prosecute any alcohol or drug abuse patient.[facility]In the event this information is protected by the Federal Confidentiality of Alcohol and Drug Abuse Patient Records regulations: The Federal rules restrict any use of the information to criminally investigate or prosecute any alcohol or drug abuse patient.[facility]In the event this information is protected by the Federal Confidentiality of Alcohol and Drug Abuse Patient Records regulations: The Federal rules restrict any use of the information to criminally investigate or prosecute any alcohol or drug abuse patient.[facility]In the event this information is protected by the Federal Confidentiality of Alcohol and Drug Abuse Patient Records regulations: The Federal rules restrict any use of the information to criminally investigate or prosecute any alcohol or drug abuse patient.[facility]In the event this information is protected by the Federal Confidentiality of Alcohol and Drug Abuse Patient Records regulations: The Federal rules restrict any use of the information to criminally investigate or prosecute any alcohol or drug abuse patient.[facility]In the event this information is protected by the Federal Confidentiality of Alcohol and Drug Abuse Patient Records regulations: The Federal rules restrict any use of the information to criminally investigate or prosecute any alcohol or drug abuse patient.[facility] HealthIn the event this information is protected by the Federal Confidentiality of Alcohol and Drug Abuse Patient Records regulations: The Federal rules restrict any use of the information to criminally investigate or prosecute any alcohol or drug abuse patient.[facility] the event this information is protected by the Federal Confidentiality of Alcohol and Drug Abuse Patient Records regulations: The Federal rules restrict any use of the information to criminally investigate or prosecute any alcohol or drug abuse patient.[facility] HealthIn the event this information is protected by the Federal Confidentiality of Alcohol and Drug Abuse Patient Records regulations: The Federal rules restrict any use of the information to criminally investigate or prosecute any alcohol or drug abuse patient.[facility] HealthIn the event this information is protected by the Federal Confidentiality of Alcohol and Drug Abuse Patient Records regulations: The Federal rules restrict any use of the information to criminally investigate or prosecute any alcohol or drug abuse patient.[facility]In the event this information is protected by the Federal Confidentiality of Alcohol and Drug Abuse Patient Records regulations: The Federal rules restrict any use of the information to criminally investigate or prosecute any alcohol or drug abuse patient.[facility] HealthIn the event this information is protected by the Federal Confidentiality of Alcohol and Drug Abuse Patient Records regulations: The Federal rules restrict any use of the information to criminally investigate or prosecute any alcohol or drug abuse patient.[facility] HealthIn the event this information is protected by the Federal Confidentiality of Alcohol and Drug Abuse Patient Records regulations: The Federal rules restrict any use of the information to criminally investigate or prosecute any alcohol or drug abuse patient.[facility] HealthIn the event this information is protected by the Federal Confidentiality of Alcohol and Drug Abuse Patient Records regulations: The Federal rules restrict any use of the information to criminally investigate or prosecute any alcohol or drug abuse patient.[facility] HealthIn the event this information is protected by the Federal Confidentiality of Alcohol and Drug Abuse Patient Records regulations: The Federal rules restrict any use of the information to criminally investigate or prosecute any alcohol or drug abuse patient.[facility] HealthIn the event this information is protected by the Federal Confidentiality of Alcohol and Drug Abuse Patient Records regulations: The Federal rules restrict any use of the information to criminally investigate or prosecute any alcohol or drug abuse patient.[facility] HealthIn the event this information is protected by the Federal Confidentiality of Alcohol and Drug Abuse Patient Records regulations: The Federal rules restrict any use of the information to criminally investigate or prosecute any alcohol or drug abuse patient.[facility] HealthIn the event this information is protected by the Federal Confidentiality of Alcohol and Drug Abuse Patient Records regulations: The Federal rules restrict any use of the information to criminally investigate or prosecute any alcohol or drug abuse patient.[facility] HealthIn the event this information is protected by the Federal Confidentiality of Alcohol and Drug Abuse Patient Records regulations: The Federal rules restrict any use of the information to criminally investigate or prosecute any alcohol or drug abuse patient.[facility] HealthIn the event this information is protected by the Federal Confidentiality of Alcohol and Drug Abuse Patient Records regulations: The Federal rules restrict any use of the information to criminally investigate or prosecute any alcohol or drug abuse patient.[facility] HealthIn the event this information is protected by the Federal Confidentiality of Alcohol and Drug Abuse Patient Records regulations: The Federal rules restrict any use of the information to criminally investigate or prosecute any alcohol or drug abuse patient.[facility] HealthIn the event this information is protected by the Federal Confidentiality of Alcohol and Drug Abuse Patient Records regulations: The Federal rules restrict any use of the information to criminally investigate or prosecute any alcohol or drug abuse patient.[facility] HealthIn the event this information is protected by the Federal Confidentiality of Alcohol and Drug Abuse Patient Records regulations: The Federal rules restrict any use of the information to criminally investigate or prosecute any alcohol or drug abuse patient.[facility] HealthIn the event this information is protected by the Federal Confidentiality of Alcohol and Drug Abuse Patient Records regulations: The Federal rules restrict any use of the information to criminally investigate or prosecute any alcohol or drug abuse patient.[facility] HealthIn the event this information is protected by the Federal Confidentiality of Alcohol and Drug Abuse Patient Records regulations: The Federal rules restrict any use of the information to criminally investigate or prosecute any alcohol or drug abuse patient.[facility] HealthIn the event this information is protected by the Federal Confidentiality of Alcohol and Drug Abuse Patient Records regulations: The Federal rules restrict any use of the information to criminally investigate or prosecute any alcohol or drug abuse patient.[facility] HealthIn the event this information is protected by the Federal Confidentiality of Alcohol and Drug Abuse Patient Records regulations: The Federal rules restrict any use of the information to criminally investigate or prosecute any alcohol or drug abuse patient.[facility] HealthIn the event this information is protected by the Federal Confidentiality of Alcohol and Drug Abuse Patient Records regulations: The Federal rules restrict any use of the information to criminally investigate or prosecute any alcohol or drug abuse patient.[facility] HealthIn the event this information is protected by the Federal Confidentiality of Alcohol and Drug Abuse Patient Records regulations: The Federal rules restrict any use of the information to criminally investigate or prosecute any alcohol or drug abuse patient.[facility] HealthIn the event this information is protected by the Federal Confidentiality of Alcohol and Drug Abuse Patient Records regulations: The Federal rules restrict any use of the information to criminally investigate or prosecute any alcohol or drug abuse patient.[facility] HealthIn the event this information is protected by the Federal Confidentiality of Alcohol and Drug Abuse Patient Records regulations: The Federal rules restrict any use of the information to criminally investigate or prosecute any alcohol or drug abuse patient.[facility] HealthIn the event this information is protected by the Federal Confidentiality of Alcohol and Drug Abuse Patient Records regulations: The Federal rules restrict any use of the information to criminally investigate or prosecute any alcohol or drug abuse patient.[facility] HealthIn the event this information is protected by the Federal Confidentiality of Alcohol and Drug Abuse Patient Records regulations: The Federal rules restrict any use of the information to criminally investigate or prosecute any alcohol or drug abuse patient.[facility] HealthIn the event this information is protected by the Federal Confidentiality of Alcohol and Drug Abuse Patient Records regulations: The Federal rules restrict any use of the information to criminally investigate or prosecute any alcohol or drug abuse patient.[facility] HealthIn the event this information is protected by the Federal Confidentiality of Alcohol and Drug Abuse Patient Records regulations: The Federal rules restrict any use of the information to criminally investigate or prosecute any alcohol or drug abuse patient.[facility] HealthIn the event this information is protected by the Federal Confidentiality of Alcohol and Drug Abuse Patient Records regulations: The Federal rules restrict any use of the information to criminally investigate or prosecute any alcohol or drug abuse patient.[facility] HealthIn the event this information is protected by the Federal Confidentiality of Alcohol and Drug Abuse Patient Records regulations: The Federal rules restrict any use of the information to criminally investigate or prosecute any alcohol or drug abuse patient.[facility] HealthIn the event this information is protected by the Federal Confidentiality of Alcohol and Drug Abuse Patient Records regulations: The Federal rules restrict any use of the information to criminally investigate or prosecute any alcohol or drug abuse patient.[facility] HealthIn the event this information is protected by the Federal Confidentiality of Alcohol and Drug Abuse Patient Records regulations: The Federal rules restrict any use of the information to criminally investigate or prosecute any alcohol or drug abuse patient.[facility] HealthIn the event this information is protected by the Federal Confidentiality of Alcohol and Drug Abuse Patient Records regulations: The Federal rules restrict any use of the information to criminally investigate or prosecute any alcohol or drug abuse patient.[facility] HealthIn the event this information is protected by the Federal Confidentiality of Alcohol and Drug Abuse Patient Records regulations: The Federal rules restrict any use of the information to criminally investigate or prosecute any alcohol or drug abuse patient.[facility] HealthIn the event this information is protected by the Federal Confidentiality of Alcohol and Drug Abuse Patient Records regulations: The Federal rules restrict any use of the information to criminally investigate or prosecute any alcohol or drug abuse patient.[facility] HealthIn the event this information is protected by the Federal Confidentiality of Alcohol and Drug Abuse Patient Records regulations: The Federal rules restrict any use of the information to criminally investigate or prosecute any alcohol or drug abuse patient.[facility] HealthIn the event this information is protected by the Federal Confidentiality of Alcohol and Drug Abuse Patient Records regulations: The Federal rules restrict any use of the information to criminally investigate or prosecute any alcohol or drug abuse patient.[facility] HealthIn the event this information is protected by the Federal Confidentiality of Alcohol and Drug Abuse Patient Records regulations: The Federal rules restrict any use of the information to criminally investigate or prosecute any alcohol or drug abuse patient.[facility] HealthIn the event this information is protected by the Federal Confidentiality of Alcohol and Drug Abuse Patient Records regulations: The Federal rules restrict any use of the information to criminally investigate or prosecute any alcohol or drug abuse patient.[facility] HealthIn the event this information is protected by the Federal Confidentiality of Alcohol and Drug Abuse Patient Records regulations: The Federal rules restrict any use of the information to criminally investigate or prosecute any alcohol or drug abuse patient.[facility] HealthIn the event this information is protected by the Federal Confidentiality of Alcohol and Drug Abuse Patient Records regulations: The Federal rules restrict any use of the information to criminally investigate or prosecute any alcohol or drug abuse patient.[facility] HealthIn the event this information is protected by the Federal Confidentiality of Alcohol and Drug Abuse Patient Records regulations: The Federal rules restrict any use of the information to criminally investigate or prosecute any alcohol or drug abuse patient.[facility] HealthIn the event this information is protected by the Federal Confidentiality of Alcohol and Drug Abuse Patient Records regulations: The Federal rules restrict any use of the information to criminally investigate or prosecute any alcohol or drug abuse patient.[facility] HealthIn the event this information is protected by the Federal Confidentiality of Alcohol and Drug Abuse Patient Records regulations: The Federal rules restrict any use of the information to criminally investigate or prosecute any alcohol or drug abuse patient.[facility] HealthIn the event this information is protected by the Federal Confidentiality of Alcohol and Drug Abuse Patient Records regulations: The Federal rules restrict any use of the information to criminally investigate or prosecute any alcohol or drug abuse patient.[facility] Reason for Visit (unrecogniz ed section and content) Reason Onset Date Comments Refill Request 10/03/2021 Reason Comments Results Specialty Diagnoses / Procedures Referred By Contac t Referred To Contact Diagnoses Multiple myeloma, remission status unspecified (HCC) Ja Becker MD [address] [place] [address] [place] [address] Renard Treat [address] [place] [address] Referral ID Status Reason Start Date Expiration Date V isits Requested Visits Authorized [id number] Authorized 04/23/2020 07/22/2020 1 1 Reason Comments Multiple Myeloma follow up Neoplasm of lung Reason Comments Refill Request Reason Onset Date Comments Refill Request 11/04/2021 Reason Onset Date Comments Refill Request 11/07/2021 Reason Onset Date Comments Refill Request 12/20/2021 Specialty Diagnoses / Procedures Referred By [facility] Referred To Contact Diagnoses Multiple myeloma, remission status unspecified (HCC) Procedures pamidronate 30 mg/10 mL (3 mg/mL) Soln 10 mL Vial Ja Becker MD [address] [place] [address] [place] [address] Renard Treat [address] [place] [address] Referral ID Status Reason Start Date Expiration Date V isits Requested Visits Authorized [id number] Authorized 04/23/2020 10/06/2021 1 1 Reason Comments Multiple Myeloma treatment visit Reason Onset Date Comments Refill Request 01/30/2022 Reason Onset Date Comments Refill Request 03/13/2022 Hydrocodone Reason Comments Handicap Placard Reason Comments Recheck Reason Comments Multiple Myeloma Follow up Reason Comments Consult Reason Comments Lab Orders Reason Comments Patient Update Reason Comments Lung Cancer Follow up Reason Comments Future Appointment Reason Comments Lymphadenopathy Reason Comments Appointment Reason Comments Care Coordination PDL1 Testing Reason Onset Date Comments Refill Request 06/16/2022 [place] Reason Comments Care Coordination Treatment Planning Reason Onset Date Comments Simulation Request Form 06/22/2022 Reason Comments Lung Cancer Treatment visit Specialty Diagnoses / Procedures Referred By [facility] Referred To Contact Diagnoses Malignant neoplasm of hilus of lung, unspecified laterality (HCC) Ja Becker MD [address] [place] [address] [place] [address] Renard Nat [place] [address] [place] [address] Referral ID Status Reason Start Date Expiration Date V isits Requested Visits Authorized [id number] Authorized 05/03/2022 08/01/2022 99 99 Reason Comments Care Coordination C1D1 Post Treatment Call Reason Comments Multiple Myeloma Reason Comments Radiotherapy On-treatment Visit Reason Onset Date Comments Refill Request 07/18/2022 Multiple Meds Reason Comments Lung Cancer Treatment visit/port draw Reason Comments Lung Cancer 1 week follow up Reason Comments Lung Cancer Reason Comments Wheezing Cough Breathing Problem Reason Onset Date Comments Refill Request 08/22/2022 [place] & Diazepam Reason Comments Lung Cancer Reason Comments Care Coordination Treatment Education Reason Onset Date Comments Refill Request 09/27/2022 [place] Reason Comments Care Coordination Emergency Room Call Back Reason Onset Date Comments Refill Request 10/09/2022 Reason Comments Care Coordination Clinical update Reason Onset Date Comments Refill Request 12/08/2022 Klonopin Specialty Diagnoses / Procedures Referred By Contac t Referred To Contact Hematology / HEMATOLOGY/ONCOLOGY Diagnoses 2 week follow up port lab - no treatment Procedures LAB/PORT Ja Becker MD [address] [address] Renard [place] [address] [place] [address] Referral ID Status Reason Start Date Expiration Date V isits Requested Visits Authorized [id number] Authorized 10/23/2022 07/01/2023 99 99 Reason Onset Date Comments Refill Request 12/26/2022 [place] Refill Request 12/26/2022 Reason Onset Date Comments Refill Request 02/05/2023 Reason Comments Care Coordination CBC Results; Transfu ishmael Reason Onset Date Comments Refill Request 03/08/2023 Reason Onset Date Comments Refill Request 03/12/2023 Reason Comments Established Patient Reason Comments Care Coordination Medication Question Reason Onset Date Comments Refill Request 05/17/2023 Robitussin AC Refill Request 05/17/2023 Reason Onset Date Comments Refill Request 05/17/2023 [place] Reason Onset Date Comments Refill Request 08/13/2023 Reason Onset Date Comments Refill Request 08/22/2023 [place] Reason Onset Date Comments Refill Request 09/19/2023 [place] Reason Comments Established Patient Reason Onset Date Comments Refill Request 10/15/2023 [place] & Klonopin Reason Onset Date Comments Refill Request 12/21/2023 Reason Comments Care Coordination [place] Request Reason Onset Date Comments Refill Request 12/27/2023 [place] & Gabap entin Reason Onset Date Comments Refill Request 01/18/2024 [place] Reason Comments Care Coordination Medication Requests Reason Onset Date Comments Refill Request 02/18/2024 [place] Reason Onset Date Comments Refill Request 02/19/2024 Reason Onset Date Comments Refill Request 02/29/[address] Specialty Diagnoses / Procedures Referred By [facility] t Referred To Contact CT IMAGING Diagnoses Malignant neoplasm of unspecified part of unspecified bronchus or lung (HCC) Procedures CT CHEST WO IVCON DIAGNOSTIC COMPUTED TOMOGRAPHY THORAX W/O CNTRST Ja Becker MD [address] [place] [address] [place] [address] [place] [address] Referral ID Status Reason Start Date Expiration Date V isits Requested Visits Authorized [id number] Closed Auto-Generate d Referral 08/06/2023 09/04/2024 1 1 Reason Comments Radiology NM Specialty Diagnoses / Procedures Referred By [facility] t Referred To Contact CT IMAGING Diagnoses Malignant neoplasm of unspecified part of unspecified bronchus or lung (HCC) Procedures CT CHEST WO IVCON DIAGNOSTIC COMPUTED TOMOGRAPHY THORAX W/O CNTRST Glenys Kurtz PA-C [address] [place] [address] [place] [address] [place] [address] Referral ID Status Reason Start Date Expiration Date V isits Requested Visits Authorized [id number] Closed Auto-Generate d Referral 09/03/2023 08/07/2024 1 1 Specialty Diagnoses / Procedures Referred By [facility] Referred To Contact CT IMAGING Diagnoses Malignant neoplasm of unspecified part of unspecified bronchus or lung (HCC) Procedures CT CHEST WO IVCON DIAGNOSTIC COMPUTED TOMOGRAPHY THORAX W/O CNTRST Amber Rodriguez, SYRUP MACHINE LABORER.RE[employer] OPENER [employer] FILLER [address] [address] [place] [address] Referral ID Status Reason Start Date Expiration Date V isits Requested Visits Authorized [id number] Closed Auto-Generate d Referral 04/02/2023 05/01/2024 1 1 Referral ID Status Reason Start Date Expiration Date V isits Requested Visits Authorized [id number] Closed Auto-Generate d Referral 01/01/2023 01/31/2024 1 1 Reason Comments Established Patient Nerve Pain Reason Comments Radio Gen RMP Referral ID Status Reason Start Date Expiration Date V isits Requested Visits Authorized [id number] Closed Auto-Generate d Referral 09/11/2022 10/11/2023 1 1 Reason Onset Date Comments Refill Request 03/25/2024 [place] Reason Comments Orders Referral ID Status Reason Start Date Expiration Date V isits Requested Visits Authorized [id number] Closed Auto-Generate d Referral 03/30/2022 02/11/2023 1 1 Specialty Diagnoses / Procedures Referred By Contac t Referred To Contact Radiation Oncology / RADIATION ONCOLOGY Diagnoses Malignant neoplasm of upper lobe, right bronchus or lung SIM/JENNIFER/lung with IV contrast Procedures SIMULATION ARIA IMRT 30 fractions Marisabel Saunders MD [address] [place] [address] [place] [address] Marisabel Saunders MD [address] [place] [address] [place] [address] Referral ID Status Reason Start Date Expiration Date Visits Re quested Visits Authorized [id number] Closed 06/22/2022 07/01/2022 99 99 Reason Comments Radiology NM Specialty Diagnoses / Procedures Referred By Contac t Referred To Contact MOLECULAR & FUNCTIONAL IMAGING Diagnoses Malignant neoplasm of unspecified part of unspecified bronchus or lung (HCC) Procedures NM PET/CT SKULL-THIGH SUBSEQUENT PET IMAGING CT ATTENUATION SKULL BASE MID-THIGH Ja Becker MD [address] [place] [address] Molecular & Functional Imaging [address] [place], [place] [id number] Referral ID Status Reason Start Date Expiration Date V isits Requested Visits Authorized [id number] Closed Auto-Generate d Referral 04/06/2022 05/06/2023 1 1 Specialty Diagnoses / Procedures Referred By Contac t Referred To Contact CT IMAGING Diagnoses Lung nodules Procedures CT CHEST W IVCON CAT SCAN OF CHEST CONTRAST Ja Becker MD [address] [place] [address] [place] [address] [place] [address] Referral ID Status Reason Start Date Expiration Date V isits Requested Visits Authorized [id number] Closed Auto-Generate d Referral 07/07/2021 08/06/2022 1 1 Referral ID Status Reason Start Date Expiration Date V isits Requested Visits Authorized [id number] Closed Auto-Generate d Referral 04/18/2024 02/15/2025 1 [address] Results Reason Comments Follow-up Specialty Diagnoses / Procedures Referred By Contac t Referred To Contact Diagnoses Multiple myeloma, remission status unspecified (HCC) Multiple myeloma, remission status unspecified (HCC) Procedures pamidronate 30 mg/10 mL (3 mg/mL) Soln 10 mL Vial Ja Becker MD [address] [place] [address] [place] [address] Renard Treat [facility] [address] [place] [address] Reason Comments Suspicious Skin Lesion Reason Comments Med Refill Care Teams (unrecognized sec tion and content) Dock Grader Relationship Specialty Start Date End Date Prerna Grissom II PCP - General Internal Medicine 05/24/11 Dock Grader Relationship Specialty Start Date End Date Prerna Grissom II PCP - General Internal Medicine 05/24/11 Dock Grader Relationship Specialty Start Date End Date Prerna Grissom II PCP - General Internal Medicine 05/24/11 Dock Grader Relationship Specialty Start Date End Date Prerna Grissom II PCP - General Internal Medicine 05/24/11 Dock Grader Relationship Specialty Start Date End Date Prerna Grissom II PCP - General Internal Medicine 05/24/11 Dock Grader Relationship Specialty Start Date End Date Prerna Grissom II PCP - General Internal Medicine 05/24/11 Dock Grader Relationship Specialty Start Date End Date Prerna Grissom II PCP - General Internal Medicine 05/24/11 Dock Grader Relationship Specialty Start Date End Date Prerna Grissom II PCP - General Internal Medicine 05/24/11 Dock Grader Relationship Specialty Start Date End Date Prerna Grissom II PCP - General Internal Medicine 05/24/11 Dock Grader Relationship Specialty Start Date End Date Prerna Grissom II PCP - General Internal Medicine 05/24/11 Dock Grader Relationship Specialty Start Date End Date Prerna Grissom II PCP - General Internal Medicine 05/24/11 Dock Grader Relationship Specialty Start Date End Date Prerna Grissom II PCP - General Internal Medicine 05/24/11 Yanira Plasencia LSW Explosive Operator Fuse 02/23/22 Dock Grader Relationship Specialty Start Date End Date Prerna Grissom II PCP - General Internal Medicine 05/24/11 Yanira Plasencia LSW Explosive Operator Fuse 02/23/22 Dock Grader Relationship Specialty Start Date End Date Prerna Grissom II PCP - General Internal Medicine 05/24/11 Yanira Plasencia LSW Explosive Operator Fuse 02/23/22 Dock Grader Relationship Specialty Start Date End Date Prerna Grissom II PCP - General Internal Medicine 05/24/11 Yanira Plasencia LSW Explosive Operator Fuse 02/23/22 Dock Grader Relationship Specialty Start Date End Date Prerna Grissom II PCP - General Internal Medicine 05/24/11 Yanira Plasencia, OFFICE CLERK ASSISTANT Explosive Operator Fuse 02/23/22 Dock Grader Relationship Specialty Start Date End Date Prerna Grissom II PCP - General Internal Medicine 05/24/11 Yanira Plasencia LSW Explosive Operator Fuse 02/23/22 Dock Grader Relationship Specialty Start Date End Date Prerna Grissom II PCP - General Internal Medicine 05/24/11 Yanira Plasencia, TATI Explosive Operator Fuse 02/23/22 Dock Grader Relationship Specialty Start Date End Date Prerna Grissom Tamie II PCP - General Internal Medicine 05/24/11 Yanira Plasencia LSW Explosive Operator Fuse 02/23/22 Ja Becker MD [address] [place] [address] Physician Hematology/Oncology 05/03/22 Amber Rodriguez APRN.REJECT OPENER AND FILLER [address] [address] Nurse Practitioner Hematology/Oncology 05/03/22 Rhona Ruiz, ILENE [address] [address] Specialty Metal Weigher Hematology/Oncology 05/03/22 Dock Grader Relationship Specialty Start Date End Date Chelsy Prerna Tamie II PCP - General Internal Medicine 05/24/11 Yanira Plasencia, OFFICE CLERK ASSISTANT Explosive Operator Fuse 02/23/22 Ja Becker MD [address] [address] Physician Hematology/Oncology 05/03/22 Amber Rodriguez, SYRUP MACHINE LABORER.RE[employer] OPENER [employer]ILL[employer] [address] [address] Nurse Practitioner Hematology/Oncology 05/03/22 Rhona Ruiz, RN [address] [address] Specialty Metal Weigher Hematology/Oncology 05/03/22 Dock Grader Relationship Specialty Start Date End Date Prerna Grissom II PCP - General Internal Medicine 05/24/11 Yanira Plasencia, OFFICE CLERK ASSISTANT Explosive Operator Fuse 02/23/22 Ja Becker MD [address] [address] Physician Hematology/Oncology 05/03/22 Amber Rodriguez, SYRUP MACHINE LABORER.REJECT OPENER AND FILLER [address] [address] Nurse Practitioner Hematology/Oncology 05/03/22 Rhona Ruiz, RN [address] [place] [address] Specialty Metal Weigher Hematology/Oncology 05/03/22 Dock Grader Relationship Specialty Start Date End Date Prerna Grissom II PCP - General Internal Medicine 05/24/11 Yanira Plasencia, OFFICE CLERK ASSISTANT Explosive Operator Fuse 02/23/22 Ja Becker MD [address] [address] Physician Hematology/Oncology 05/03/22 Amber Rodriguez, SYRUP MACHINE LABORER.REJECT OPENER AND FILLER [address] [address] Nurse Practitioner Hematology/Oncology 05/03/22 Rhona Ruiz, ILENE [address] [place], [place] [address] Specialty Metal Weigher Hematology/Oncology 05/03/22 Dock Grader Relationship Specialty Start Date End Date Prerna Grissom II PCP - General Internal Medicine 05/24/11 Yanira Plasencia, [facility] Explosive Operator Fuse 02/23/22 Ja Becker MD [address] [place], [place] [address] Physician Hematology/Oncology 05/03/22 Amber Rodriguez, SYRUP MACHINE LABORER.REJECT OPENER AND FILLER [address] [address] Nurse Practitioner Hematology/Oncology 05/03/22 Rhona Ruiz, ILENE [address] [address] Specialty Metal Weigher Hematology/Oncology 05/03/22 Dock Grader Relationship Specialty Start Date End Date Prerna Grissom II PCP - General Internal Medicine 05/24/11 Yanira Plasencia, [facility] Explosive Operator Fuse 02/23/22 aJ Becker MD [address] [place], [place] [id number] Physician Hematology/Oncology 05/03/22 Amber Rodriguez, SYRUP MACHINE LABORER.REJECT OPENER AND FILLER [address] [address] Nurse Practitioner Hematology/Oncology 05/03/22 Rhona Ruiz, RN [address] [address] Specialty Metal Weigher Hematology/Oncology 05/03/22 Dock Grader Relationship Specialty Start Date End Date Prerna Grissom II PCP - General Internal Medicine 05/24/11 Yanira Plasencia OFFICE CLERK ASSISTANT Explosive Operator Fuse 02/23/22 Ja Becker MD [address] [place] [address] Physician Hematology/Oncology 05/03/22 Amber Rodriguez, SYR[employer] MACHINE LABORER.RE[employer] OPENER AND FILLER [address] [address] Nurse Practitioner Hematology/Oncology 05/03/22 Rhona Ruiz, RN [address] [place], [place] [id number] Specialty Metal Weigher Hematology/Oncology 05/03/22 Dock Grader Relationship Specialty Start Date End Date Prerna Grissom II PCP - General Internal Medicine 05/24/11 Yanira Plasencia [facility] Explosive Operator Fuse 02/23/22 Ja Becker MD [address] [address] Physician Hematology/Oncology 05/03/22 Amber Rodriguez, SYR[employer] MACHINE LABORER.REJECT OPENER AND FILLER [address] [address] Nurse Practitioner Hematology/Oncology 05/03/22 Rhona Ruiz, RN [address] [address] Specialty Metal Weigher Hematology/Oncology 05/03/22 Dock Grader Relationship Specialty Start Date End Date Prerna Grissom II PCP - General Internal Medicine 05/24/11 Yanira Plasencia OFFICE CLERK ASSISTANT Explosive Operator Fuse 02/23/22 Ja Becker MD [address] [place], [place] [address] Physician Hematology/Oncology 05/03/22 Amber Rodriguez, SYR[employer] MACHINE LABORER.RE[employer] OPENER AND FILLER [address] [address] Nurse Practitioner Hematology/Oncology 05/03/22 Rhona Ruiz, RN [address] [place] [address] Specialty Metal Weigher Hematology/Oncology 05/03/22 Dock Grader Relationship Specialty Start Date End Date Prerna Grissom II PCP - General Internal Medicine 05/24/11 Yanira Plasencia LSW Explosive Operator Fuse 02/23/22 Ja Becker MD [address] [address] Physician Hematology/Oncology 05/03/22 Amber Rodriguez, SYR[employer] MACHINE LABORER.RE[employer] OPENER AND FILLER [address] [address] Nurse Practitioner Hematology/Oncology 05/03/22 Rhona Ruiz, ILENE [address] [place], [place] [address] Specialty Metal Weigher Hematology/Oncology 05/03/22 Dock Grader Relationship Specialty Start Date End Date Prerna Grissom II PCP - General Internal Medicine 05/24/11 Yanira Plasencia LSW Explosive Operator Fuse 02/23/22 Ja Becker MD [address] [place] [address] Physician Hematology/Oncology 05/03/22 Amber Rodriguez, SYR[employer] MACHINE LABORER.REJECT OPENER AND FILLER [address] [address] Nurse Practitioner Hematology/Oncology 05/03/22 Rhona Ruiz, RN [address] [address] Specialty Metal Weigher Hematology/Oncology 05/03/22 Dock Grader Relationship Specialty Start Date End Date Prerna Grissom II PCP - General Internal Medicine 05/24/11 Yanira Plasencia LSW Explosive Operator Fuse 02/23/22 Ja Becker MD [address] [place], [place] [address] Physician Hematology/Oncology 05/03/22 Amber Rodriguez, SYRUP MACHINE LABORER.[facility] [address] [address] Nurse Practitioner Hematology/Oncology 05/03/22 Rhona Ruiz, RN [address] [place] [address] Specialty Metal Weigher Hematology/Oncology 05/03/22 Dock Grader Relationship Specialty Start Date End Date Prerna Grissom II PCP - General Internal Medicine 05/24/11 Yanira Plasencia [facility] Explosive Operator Fuse 02/23/22 Ja Becker MD [address] [address] Physician Hematology/Oncology 05/03/22 Amber Rodriguez, SYRUP MACHINE LABORER.REJECT OPENER AND FILLER [address] [address] Nurse Practitioner Hematology/Oncology 05/03/22 Rhona Ruiz, RN [address] [place] [address] Specialty Metal Weigher Hematology/Oncology 05/03/22 Dock Grader Relationship Specialty Start Date End Date Prerna Grissom II PCP - General Internal Medicine 05/24/11 Yanira Plasencia [facility] Explosive Operator Fuse 02/23/22 Ja Becker MD [address] [place], [place] [address] Physician Hematology/Oncology 05/03/22 Amber Rodriguez, SYRUP MACHINE LABORER.REJECT OPENER AND FILLER [address] [address] Nurse Practitioner Hematology/Oncology 05/03/22 Rhona Ruiz, RN [address] [place] [address] Specialty Metal Weigher Hematology/Oncology 05/03/22 Dock Grader Relationship Specialty Start Date End Date Prerna Grissom II PCP - General Internal Medicine 05/24/11 Yanira Plasencia [facility] Explosive Operator Fuse 02/23/22 Ja Becker MD [address] [address] Physician Hematology/Oncology 05/03/22 Amber Rodriguez, SYR[employer] MACHINE LABORER.REJECT OPENER AND FILLER [address] [address] Nurse Practitioner Hematology/Oncology 05/03/22 Rhona Ruiz, ILENE [address] [place] [address] Specialty Metal Weigher Hematology/Oncology 05/03/22 Dock Grader Relationship Specialty Start Date End Date Prerna Grissom II PCP - General Internal Medicine 05/24/11 Yanira Plasencia [facility] Explosive Operator Fuse 02/23/22 Ja Becker MD [address] [address] Physician Hematology/Oncology 05/03/22 Amber Rodriguez, SYR[employer] MACHINE LABORER.REJECT OPENER AND FILLER [address] [place] [address] Nurse Practitioner Hematology/Oncology 05/03/22 Rhona Ruzi, RN [address] [facility] [place] [address] Specialty Metal Weigher Hematology/Oncology 05/03/22 Dock Grader Relationship Specialty Start Date End Date Prerna Grissom JUAN RAMON PCP - General Internal Medicine 05/24/11 Yanira Plasencia LSW Explosive Operator Fuse 02/23/22 Ja Becker MD [address] [facility] [place] [address] Physician Hematology/Oncology 05/03/22 Amber Rodriguez, SYRUP MACHINE LABORER.REJECT OPENER AND FILLER [address] [address] Nurse Practitioner Hematology/Oncology 05/03/22 Rhona Ruiz, RN [address] [facility] [facility] [place] [address] Specialty Metal Weigher Hematology/Oncology 05/03/22 Dock Grader Relationship Specialty Start Date End Date David Grissommili Willett II PCP - General Internal Medicine 05/24/11 Yanira Plasencia LSW Explosive Operator Fuse 02/23/22 Ja Becker MD [address] [facility] [place] [address] Physician Hematology/Oncology 05/03/22 Amber Rodriguez, SYRUP MACHINE LABORER.REJECT OPENER AND FILLER [address] [facility] [place] [address] Nurse Practitioner Hematology/Oncology 05/03/22 Rhona Ruiz, RN [address] [facility] [facility] [place] [address] Specialty Metal Weigher Hematology/Oncology 05/03/22 Dock Grader Relationship Specialty Start Date End Date Prerna Grissom II PCP - General Internal Medicine 05/24/11 Yanira Plasencia, OFFICE CLERK ASSISTANT Explosive Operator Fuse 02/23/22 Ja Becker MD [address] [place] [address] Physician Hematology/Oncology 05/03/22 Amber Rodriguez, SYR[employer] MACHINE LABORER.RE[employer] OPENER [employer] FILLER [address] [place] [address] Nurse Practitioner Hematology/Oncology 05/03/22 Rhona Ruiz, RN [address] [place] [address] Specialty Metal Weigher Hematology/Oncology 05/03/22 Dock Grader Relationship Specialty Start Date End Date Prerna Grissom II PCP - General Internal Medicine 05/24/11 Yanira Plasencia [facility] Explosive Operator Fuse 02/23/22 Ja Becker MD [address] [place] [address] Physician Hematology/Oncology 05/03/22 Amber Rodriguez, SYR[employer] MACHINE LABORER.RE[employer] OPENER AND FILLER [address] [place] [address] Nurse Practitioner Hematology/Oncology 05/03/22 Rhona Ruiz, RN [address] [place] [address] Specialty Metal Weigher Hematology/Oncology 05/03/22 Dock Grader Relationship Specialty Start Date End Date Prerna Grissom II PCP - General Internal Medicine 05/24/11 Yanira Plasencia, [facility] Explosive Operator Fuse 02/23/22 Ja Becker MD [address] [place], [place] [address] Physician Hematology/Oncology 05/03/22 Amber Rodriguez, SYR[employer] MACHINE LABORER.REJECT OPENER AND FILLER [address] [place] [address] Nurse Practitioner Hematology/Oncology 05/03/22 Rhona Ruiz, RN [address] [place] [address] Specialty Metal Weigher Hematology/Oncology 05/03/22 Dock Grader Relationship Specialty Start Date End Date Prerna Grissom II PCP - General Internal Medicine 05/24/11 Yanira Plasencia, OFFICE CLERK ASSISTANT Explosive Operator Fuse 02/23/22 Ja Becker MD [address] [place] [address] Physician Hematology/Oncology 05/03/22 Amber Rodriguez, SYRUP MACHINE LABORER.REJECT OPENER AND FILLER [address] [place] [address] Nurse Practitioner Hematology/Oncology 05/03/22 Rhona Ruiz, RN [address] [place] [address] Specialty Metal Weigher Hematology/Oncology 05/03/22 Dock Grader Relationship Specialty Start Date End Date Prerna Grissom II PCP - General Internal Medicine 05/24/11 Yanira Plasencia, OFFICE CLERK ASSISTANT Explosive Operator Fuse 02/23/22 Ja Becker MD [address] [place], [place] [address] Physician Hematology/Oncology 05/03/22 Amber Rodriguez, SYRUP MACHINE LABORER.REJECT OPENER AND FILLER [address] [place] [address] Nurse Practitioner Hematology/Oncology 05/03/22 Rhona Ruiz, RN [address] [place], [place] [address] Specialty Metal Weigher Hematology/Oncology 05/03/22 Dock Grader Relationship Specialty Start Date End Date Prerna Grissom II PCP - General Internal Medicine 05/24/11 Yanira Plasencia, [facility] Explosive Operator Fuse 02/23/22 Ja Becker MD [address] [place], [place] [address] Physician Hematology/Oncology 05/03/22 Amber Rodriguez, SYRUP MACHINE LABORER.REJECT OPENER AND FILLER [address] [place] [address] Nurse Practitioner Hematology/Oncology 05/03/22 Rhona Ruiz, ILENE [address] [place] [address] Specialty Metal Weigher Hematology/Oncology 05/03/22 Dock Grader Relationship Specialty Start Date End Date Prerna Grissom II PCP - General Internal Medicine 05/24/11 Yanira Plasencia, [facility] Explosive Operator Fuse 02/23/22 Ja Becker MD [address] [place], [place] [address] Physician Hematology/Oncology 05/03/22 Amber Rodriguez, SYRUP MACHINE LABORER.REJECT OPENER AND FILLER [address] [place] [address] Nurse Practitioner Hematology/Oncology 05/03/22 Rhona Ruiz, RN [address] [place] [address] Specialty Metal Weigher Hematology/Oncology 05/03/22 Dock Grader Relationship Specialty Start Date End Date Prerna Grissom II PCP - General Internal Medicine 05/24/11 Yanira Plasencia LSW Explosive Operator Fuse 02/23/22 Ja Becker MD [address] [place], [place] [address] Physician Hematology/Oncology 05/03/22 Amber Rodriguez, SYR[employer] MACHINE LABORER.REJECT OPENER AND FILLER [address] [place] [address] Nurse Practitioner Hematology/Oncology 05/03/22 Rhona Ruiz, ILENE [address] [place], [place] [address] Specialty Metal Weigher Hematology/Oncology 05/03/22 Dock Grader Relationship Specialty Start Date End Date Prerna Grissom II PCP - General Internal Medicine 05/24/11 Yanira Plasencia [facility] Explosive Operator Fuse 02/23/22 Ja Becker MD [address] [place], [place] [address] Physician Hematology/Oncology 05/03/22 Amber Rodriguez, SYR[employer] MACHINE LABORER.REJECT OPENER AND FILLER [address] [place] [address] Nurse Practitioner Hematology/Oncology 05/03/22 Rhona Ruiz, RN [address] [place] [address] Specialty Metal Weigher Hematology/Oncology 05/03/22 Dock Grader Relationship Specialty Start Date End Date Prerna Grissom II PCP - General Internal Medicine 05/24/11 Yanira Plasencia OFFICE CLERK ASSISTANT Explosive Operator Fuse 02/23/22 Ja Becker MD [address] [place], [place] [address] Physician Hematology/Oncology 05/03/22 Amber Rodriguez, SYR[employer] MACHINE LABORER.RE[employer] OPENER AND FILLER [address] [place] [address] Nurse Practitioner Hematology/Oncology 05/03/22 Rhona Ruiz, ILENE [address] [place] [address] Specialty Metal Weigher Hematology/Oncology 05/03/22 Dock Grader Relationship Specialty Start Date End Date Prerna Grissom II PCP - General Internal Medicine 05/24/11 Yanira Plasencia LSW Explosive Operator Fuse 02/23/22 Ja Becker MD [address] [place] [address] Physician Hematology/Oncology 05/03/22 Amber Rodriguez, SYR[employer] MACHINE LABORER.RE[employer] OPENER [employer] FILLER [address] [place] [address] Nurse Practitioner Hematology/Oncology 05/03/22 Rhona Ruiz, ILENE [address] [place] [address] Specialty Metal Weigher Hematology/Oncology 05/03/22 Dock Grader Relationship Specialty Start Date End Date Prerna Grissom II PCP - General Internal Medicine 05/24/11 Yanira Plasencia LSW Explosive Operator Fuse 02/23/22 Ja Becker MD [address] [place] [address] Physician Hematology/Oncology 05/03/22 Amber Rodriguez, SYR[employer] MACHINE LABORER.RE[employer] OPENER AND FILLER [address] [place] [address] Nurse Practitioner Hematology/Oncology 05/03/22 Rhona RuizILENE [address] [place] [address] Specialty Metal Weigher Hematology/Oncology 05/03/22 Dock Grader Relationship Specialty Start Date End Date Prerna Grissom JUAN RAMON PCP - General Internal Medicine 05/24/11 Yanira Plasencia, OFFICE CLERK ASSISTANT Explosive Operator Fuse 02/23/22 Ja Becker MD [address] [place] [address] Physician Hematology/Oncology 05/03/22 Amber Rodriguez, SYR[employer] MACHINE LABORER.RE[employer] OPENER AND FILLER [address] [place] [address] Nurse Practitioner Hematology/Oncology 05/03/22 Rhona Ruiz RN [address] [place] [address] Specialty Metal Weigher Hematology/Oncology 05/03/22 Dock Grader Relationship Specialty Start Date End Date Prerna Grissom Tamie DELATORRE PCP - General Internal Medicine 05/24/11 Yanira Plasencia, [facility] Explosive Operator Fuse 02/23/22 Ja Becker MD [address] [place] [address] Physician Hematology/Oncology 05/03/22 Amber Rodriguez, SYR[employer] MACHINE LABORER.RE[employer] OPENER AND FILLER [address] [place] [address] Nurse Practitioner Hematology/Oncology 05/03/22 Rhona Ruiz, ILENE [address] [place] [address] Specialty Metal Weigher Hematology/Oncology 05/03/22 Team Status: Active Member Role Status Dates NON STAFF Primary Care Provider Active Team Status: Inactive Member Role Status Dates NON STAFF Primary Care Provider Active Alberto Chappell PA-C Emergency Provider Active Dock Grader Relationship Specialty Start Date End Date Prerna Grissom II PCP - General Internal Medicine 05/24/11 Yanira Plasencia LSW Explosive Operator Fuse 02/23/22 Ja Becker MD [address] [place], [place] [address] Physician Hematology/Oncology 05/03/22 Amber Rodriguez, [employer]YR[employer] MACHINE LABORER.RE[employer] OPENER AND FILLER [address] [place] [address] Nurse Practitioner Hematology/Oncology 05/03/22 Rhona Ruiz, RN [address] [place] [address] Specialty Metal Weigher Hematology/Oncology 05/03/22 Dock Grader Relationship Specialty Start Date End Date Prerna Grissom II PCP - General Internal Medicine 05/24/11 Yanira Plasencia LSW Explosive Operator Fuse 02/23/22 Ja Becker MD [address] [place], [place] [id number] Physician Hematology/Oncology 05/03/22 Amber Rodriguez, [employer] MACHINE LABORER.RE[employer] OPENER AND FILLER [address] [place] [address] Nurse Practitioner Hematology/Oncology 05/03/22 Rhona Ruiz, RN [address] [place] [address] Specialty Metal Weigher Hematology/Oncology 05/03/[address] [place], [place] [phone] Nutrition 11/20/22 Dock Grader Relationship Specialty Start Date End Date Prerna Grissom II PCP - General Internal Medicine 05/24/11 Yanira Plasencia, [facility] Explosive Operator Fuse 02/23/22 Ja Becker MD [address] [place], [place] [address] Physician Hematology/Oncology 05/03/22 Amber Rodriguez, [employer]YR[employer] MACHINE LABORER.RE[employer] OPENER AND FILLER [address] [place] [address] Nurse Practitioner Hematology/Oncology 05/03/22 Rhona Ruiz, ILENE [address] [place] [address] Specialty Metal Weigher Hematology/Oncology 05/03/[address] [place], [place] [id number] Nutrition 11/20/22 Dock Grader Relationship Specialty Start Date End Date Prerna Grissom II PCP - General Internal Medicine 05/24/11 Yanira Plasencia [facility] Explosive Operator Fuse 02/23/22 Ja Becker MD [address] [place] [address] Physician Hematology/Oncology 05/03/22 Amber Rodriguez, [employer] MACHINE LABORER.RE[employer] OPENER [employer] FILLER [address] [place] [address] Nurse Practitioner Hematology/Oncology 05/03/22 Rhona Ruiz, ILENE [address] [place] [address] Specialty Metal Weigher Hematology/Oncology 05/03/[address] [place] [address] Nutrition 11/20/22 Team Status: Active Member Role Status Dates Prerna Grissom II MD Primary Care Provider Active Team Status: Inactive Member Role Status Dates Amber Rodriguez NP-C Attending Provider Active Prerna Grissom II MD Primary Care Provider Active Dock Grader Relationship Specialty Start Date End Date Prerna Grissom II PCP - General Internal Medicine 05/24/11 Yanira Plasencia, OFFICE CLERK ASSISTANT Explosive Operator Fuse 02/23/22 Ja Becker MD [address] [facility] [address] [place], [place] [id number] Physician Hematology/Oncology 05/03/22 Amber Rodriguez, [employer]ORER.[employer] OPENER [employer] [address] [place] [address] Nurse Practitioner Hematology/Oncology 05/03/22 Rhona Ruiz, ILENE [address] [place] [address] Specialty Metal Weigher Hematology/Oncology 05/03/[address] [place] [address] Nutrition 11/20/22 Dock Grader Relationship Specialty Start Date End Date Prerna Grissom II PCP - General Internal Medicine 05/24/11 Yanira Plasencia, [facility] Explosive Operator Fuse 02/23/22 Ja Becker MD [address] [place] [address] Physician Hematology/Oncology 05/03/22 Amber Rodriguez, SYR[employer] MACHINE LABORER.[facility] [address] [place] [address] Nurse Practitioner Hematology/Oncology 05/03/22 Rhona Ruiz, ILENE [address] [place] [address] Specialty Metal Weigher Hematology/Oncology 05/03/[address] [place] [address] Nutrition 11/20/22 Dock Grader Relationship Specialty Start Date End Date Prerna Grissom II PCP - General Internal Medicine 05/24/11 Yanira Plasencia LSW Explosive Operator Fuse 02/23/22 Ja Becker MD [address] [place] [address] Physician Hematology/Oncology 05/03/22 Amber Rodriguez, [employer] M[employer]INE LABORER.[employer] OPENER [employer] FILLER [address] [place] [address] Nurse Practitioner Hematology/Oncology 05/03/22 Rhona Ruiz, ILENE [address] [place] [address] Specialty Metal Weigher Hematology/Oncology 05/03/[address] [facility] [facility] [address] [place], [place] [id number] Nutrition 11/20/22 Dock Grader Relationship Specialty Start Date End Date Prerna Grissom II PCP - General Internal Medicine 05/24/11 Yanira Plasencia LSW Explosive Operator Fuse 02/23/22 Ja Becker MD [address] [place] [address] Physician Hematology/Oncology 05/03/22 Amber Rodriguez, SYRUP MACHINE LABORER.[facility] [address] [address] Nurse Practitioner Hematology/Oncology 05/03/22 Rhona Ruiz, ILENE [address] [address] Specialty Metal Weigher Hematology/Oncology 05/03/[address] [facility] [place], [place] [id number] Nutrition 11/20/22 Dock Grader Relationship Specialty Start Date End Date Prerna Grissom II PCP - General Internal Medicine 05/24/11 Yanira Plasencia LSW Explosive Operator Fuse 02/23/22 Ja Becker MD [address] [place] [address] [place] [address] Physician Hematology/Oncology 05/03/22 Amber Rodriguez, SYRUP MACHINE LABORER.[employer] [address] [address] Nurse Practitioner Hematology/Oncology 05/03/22 Rhona Ruiz, ILENE [address] [address] Specialty Metal Weigher Hematology/Oncology 05/03/[address] [address] Nutrition 11/20/22 Dock Grader Relationship Specialty Start Date End Date Prerna Grissom II, MD PCP - General Internal Medicine 05/24/11 Yanira Plasencia OFFICE CLERK ASSISTANT Explosive Operator Fuse 02/23/22 Ja Becker MD [address] [place] [address] [place] [address] Physician Hematology/Oncology 05/03/22 Amber Rodriguez, SYRUP MACHINE LABORER.RE[employer] OPENER AND FILLER [address] [address] Nurse Practitioner Hematology/Oncology 05/03/22 Rhona Ruiz, ILENE [address] [address] Specialty Metal Weigher Hematology/Oncology 05/03/[address] [facility] [facility] [place] [address] Nutrition 11/20/22 Dock Grader Relationship Specialty Start Date End Date Prerna Grissom II, MD PCP - General Internal Medicine 05/24/11 Yanira Plasencia, OFFICE CLERK ASSISTANT Explosive Operator Fuse 02/23/22 Ja Becker MD [address] [facility] [facility] [place] [address] Physician Hematology/Oncology 05/03/22 Amber Rodriguez, SYRUP MACHINE LABORER.REJECT OPENER AND FILLER [address] [facility] [address] [address] Nurse Practitioner Hematology/Oncology 05/03/22 Rhona Ruiz, ILENE [address] [facility] [place] [address] Specialty Metal Weigher Hematology/Oncology 05/03/[address] [facility] [address] [address] Nutrition 11/20/22 Dock Grader Relationship Specialty Start Date End Date Prerna Grissom II, MD PCP - General Internal Medicine 05/24/11 Yanira Plasencia, [facility] Explosive Operator Fuse 02/23/22 Ja Becker MD [address] [address] Physician Hematology/Oncology 05/03/22 Amber Rodriguez, SYRUP MACHINE LABORER.REJECT OPENER AND FILLER [address] [address] Nurse Practitioner Hematology/Oncology 05/03/22 Rhona Ruiz, ILENE [address] [place] [address] Specialty Metal Weigher Hematology/Oncology 05/03/[address] [facility] [address] [address] Nutrition 11/20/22 Dock Grader Relationship Specialty Start Date End Date Prerna Grissom II, MD PCP - General Internal Medicine 05/24/11 Yanira Plasencia LSW Explosive Operator Fuse 02/23/22 Ja Becker MD [address] [place] [address] [place] [address] Physician Hematology/Oncology 05/03/22 Amber Rodriguez, SYRUP MACHINE LABORER.REJECT OPENER AND FILLER [address] [place] [address] [place] [address] Nurse Practitioner Hematology/Oncology 05/03/22 Rhona Ruiz RN [address] [address] Specialty Metal Weigher Hematology/Oncology 05/03/[address] [place] [address] [place] [address] Nutrition 11/20/22 Dock Grader Relationship Specialty Start Date End Date Prerna Grissom II, MD PCP - General Internal Medicine 05/24/11 Yanira Plasencia LSW Explosive Operator Fuse 02/23/22 Ja Becker MD [address] [address] Physician Hematology/Oncology 05/03/22 Amber Rodriguez, SYRUP MACHINE LABORER.REJECT OPENER AND FILLER [address] [place] [address] Nurse Practitioner Hematology/Oncology 05/03/22 Rhona Ruiz, LIENE [address] [place] [address] Specialty Metal Weigher Hematology/Oncology 05/03/[address] [facility] [place] [address] Nutrition 11/20/22 Dock Grader Relationship Specialty Start Date End Date Prerna Grissom II, MD PCP - General Internal Medicine 05/24/11 Yanira Plasencia LSW Explosive Operator Fuse 02/23/22 Ja Becker MD [address] [place] [address] [place] [address] Physician Hematology/Oncology 05/03/22 Amber Rodriguez, SYRUP MACHINE LABORER.REJECT OPENER AND FILLER [address] [address] Nurse Practitioner Hematology/Oncology 05/03/22 Rhona Ruiz, ILENE [address] [place] [address] Specialty Metal Weigher Hematology/Oncology 05/03/[address] [facility] [place] [address] Nutrition 11/20/22 Dock Grader Relationship Specialty Start Date End Date Prerna Grissom II, MD PCP - General Internal Medicine 05/24/11 Yanira Plasencia, OFFICE CLERK ASSISTANT Explosive Operator Fuse 02/23/22 Ja Becker MD [address] [address] Physician Hematology/Oncology 05/03/22 Amber Rodriguez, SYRUP MACHINE LABORER.REJECT OPENER AND FILLER [address] [address] Nurse Practitioner Hematology/Oncology 05/03/22 Rhona Ruiz, ILENE [address] [place] [address] Specialty Metal Weigher Hematology/Oncology 05/03/[address] [facility] [place] [address] Nutrition 11/20/22 Dock Grader Relationship Specialty Start Date End Date Prerna Grissom II, MD PCP - General Internal Medicine 05/24/11 Yanira Plasencia LSW Explosive Operator Fuse 02/23/22 Ja Becker MD [address] [place] [address] [place] [address] Physician Hematology/Oncology 05/03/22 Amber Rodriguez, SYRUP MACHINE LABORER.REJECT OPENER AND FILLER [address] [facility] [place] [address] Nurse Practitioner Hematology/Oncology 05/03/22 Rhona Ruiz, ILENE [address] [address] Specialty Metal Weigher Hematology/Oncology 05/03/[address] [place] [address] Nutrition 11/20/22 Dock Grader Relationship Specialty Start Date End Date Prerna Grissom II, MD PCP - General Internal Medicine 05/24/11 Yanira Plasencia, OFFICE CLERK ASSISTANT Explosive Operator Fuse 02/23/22 Ja Becker MD [address] [place] [address] [place] [address] Physician Hematology/Oncology 05/03/22 Amber Rodriguez, SYRUP MACHINE LABORER.REJECT OPENER AND FILLER [address] [facility] [address] [address] Nurse Practitioner Hematology/Oncology 05/03/22 Rhona Ruiz, ILENE [address] [facility] [place] [address] Specialty Metal Weigher Hematology/Oncology 05/03/[address] [place] [address] [place] [address] Nutrition 11/20/22 Dock Grader Relationship Specialty Start Date End Date Prerna Grissom II, MD PCP - General Internal Medicine 05/24/11 Yanira Plasencia OFFICE CLERK ASSISTANT Explosive Operator Fuse 02/23/22 Ja Becker MD [address] [place] [address] [place] [address] Physician Hematology/Oncology 05/03/22 Amber Rodriguez, SYRUP MACHINE LABORER.REJECT OPENER AND FILLER [address] [place] [address] Nurse Practitioner Hematology/Oncology 05/03/22 Rhona Ruiz, ILENE [address] [facility] [place] [address] Specialty Metal Weigher Hematology/Oncology 05/03/[address] [facility] [facility] [place] [address] Nutrition 11/20/22 Dock Grader Relationship Specialty Start Date End Date Prerna Grissom II, MD PCP - General Internal Medicine 05/24/11 Yanira Plasencia, OFFICE CLERK ASSISTANT Explosive Operator Fuse 02/23/22 Ja Becker MD [address] [facility] [facility] [place] [address] Physician Hematology/Oncology 05/03/22 Amber Rodriguez, SYRUP MACHINE LABORER.REJECT OPENER AND FILLER [address] [facility] [place] [address] Nurse Practitioner Hematology/Oncology 05/03/22 Rhona Ruiz, ILENE [address] [facility] [facility] [place] [address] Specialty Metal Weigher Hematology/Oncology 05/03/[address] [facility] [place] [address] Nutrition 11/20/22 Dock Grader Relationship Specialty Start Date End Date Prerna Grissom II, MD PCP - General Internal Medicine 05/24/11 Yanira Plasencia, [facility] Explosive Operator Fuse 02/23/22 Ja Becker MD [address] [facility] [facility] [place] [address] Physician Hematology/Oncology 05/03/22 Amber Rodriguez, SYRUP MACHINE LABORER.REJECT OPENER AND FILLER [address] [place] [address] Nurse Practitioner Hematology/Oncology 05/03/22 Rhona Ruiz, ILENE [address] [facility] [place] [address] Specialty Metal Weigher Hematology/Oncology 05/03/[address] [facility] [place] [address] Nutrition 11/20/22 Dock Grader Relationship Specialty Start Date End Date Prerna Grissom II, MD PCP - General Internal Medicine 05/24/11 Yanira Plasencia LSW Explosive Operator Fuse 02/23/22 Ja Becker MD [address] [facility] [address] [address] Physician Hematology/Oncology 05/03/22 Amber Rodriguez, SYRUP MACHINE LABORER.REJECT OPENER AND FILLER [address] [facility] [address] [address] Nurse Practitioner Hematology/Oncology 05/03/22 Rhona Ruiz RN [address] [facility] [facility] [place] [address] Specialty Metal Weigher Hematology/Oncology 05/03/[address] [place] [address] [place] [address] Nutrition 11/20/22 Dock Grader Relationship Specialty Start Date End Date Prerna Grissom II, MD PCP - General Internal Medicine 05/24/11 Yanira Plasencia LSW Explosive Operator Fuse 02/23/22 Ja Becker MD [address] [facility] [place] [address] Physician Hematology/Oncology 05/03/22 Amber Rodriguez, SYRUP MACHINE LABORER.REJECT OPENER AND FILLER [address] [facility] [place] [address] Nurse Practitioner Hematology/Oncology 05/03/22 Rhona Ruiz, RN [address] [facility] [place] [address] Specialty Metal Weigher Hematology/Oncology 05/03/[address] [facility] [place] [address] Nutrition 11/20/22 Dock Grader Relationship Specialty Start Date End Date Prerna Grissom II, MD PCP - General Internal Medicine 05/24/11 Yanira Plasencia LSW Explosive Operator Fuse 02/23/22 Ja Becker MD [address] [place] [address] [place] [address] Physician Hematology/Oncology 05/03/22 Amber Rodriguez, SYRUP MACHINE LABORER.REJECT OPENER AND FILLER [address] [place] [address] Nurse Practitioner Hematology/Oncology 05/03/22 Rhona Ruiz, ILENE [address] [place] [place] [address] Specialty Metal Weigher Hematology/Oncology 05/03/[address] [facility] [place] [address] Nutrition 11/20/22 Dock Grader Relationship Specialty Start Date End Date Prerna Grissom II, MD PCP - General Internal Medicine 05/24/11 Yanira Plasencia, OFFICE CLERK ASSISTANT Explosive Operator Fuse 02/23/22 Ja Becker MD [address] [place] [address] Physician Hematology/Oncology 05/03/22 Amber Rodriguez, SYRUP MACHINE LABORER.REJECT OPENER AND FILLER [address] [place] [address] Nurse Practitioner Hematology/Oncology 05/03/22 Rhona Ruiz, ILENE [address] [place] [address] Specialty Metal Weigher Hematology/Oncology 05/03/[address] [facility] [place] [address] Nutrition 11/20/22 Dock Grader Relationship Specialty Start Date End Date Prerna Grissom II, MD PCP - General Internal Medicine 05/24/11 Yanira Plasencia LSW Explosive Operator Fuse 02/23/22 Ja Becker MD [address] [place] [address] [place] [address] Physician Hematology/Oncology 05/03/22 Amber Rodriguez, SYRUP MACHINE LABORER.REJECT OPENER AND FILLER [address] [place] [address] Nurse Practitioner Hematology/Oncology 05/03/22 Rhona Ruiz, ILENE [address] [place] [address] Specialty Metal Weigher Hematology/Oncology 05/03/[address] [place] [address] Nutrition 11/20/22 Dock Grader Relationship Specialty Start Date End Date Prerna Grissom II, MD PCP - General Internal Medicine 05/24/11 Yanira Plasencia LSW Explosive Operator Fuse 02/23/22 Ja Becker MD [address] [place] [address] [place] [address] Physician Hematology/Oncology 05/03/22 Amber Rodriguez, SYRUP MACHINE LABORER.REJECT OPENER AND FILLER [address] [place] [address] [place] [address] Nurse Practitioner Hematology/Oncology 05/03/22 Rhona Ruiz, ILENE [address] [facility] [place] [address] Specialty Metal Weigher Hematology/Oncology 05/03/[address] [place] [address] [place] [address] Nutrition 11/20/22 Dock Grader Relationship Specialty Start Date End Date Prerna Grissom II, MD PCP - General Internal Medicine 05/24/11 Yanira Plasencia LSW Explosive Operator Fuse 02/23/22 Ja Becker MD [address] [place] [address] [place] [address] Physician Hematology/Oncology 05/03/22 Amber Rodriguez, SYRUP MACHINE LABORER.REJECT OPENER AND FILLER [address] [facility] [place] [address] Nurse Practitioner Hematology/Oncology 05/03/22 Rhona Ruiz, ILENE [address] [facility] [place] [address] Specialty Metal Weigher Hematology/Oncology 05/03/[address] [facility] [facility] [place] [address] Nutrition 11/20/22 Dock Grader Relationship Specialty Start Date End Date Prerna Grissom II, MD PCP - General Internal Medicine 05/24/11 Yanira Plasencia, [facility] Explosive Operator Fuse 02/23/22 Ja Becker MD [address] [facility] [address] Physician Hematology/Oncology 05/03/22 Amber Rodriguez, SYRUP MACHINE LABORER.REJECT OPENER AND FILLER [address] [facility] [place] [address] Nurse Practitioner Hematology/Oncology 05/03/22 Rhona Ruiz, ILENE [address] [facility] [facility] [place] [address] Specialty Metal Weigher Hematology/Oncology 05/03/[address] [facility] [place] [address] Nutrition 11/20/22 Dock Grader Relationship Specialty Start Date End Date Prerna Grissom II, MD PCP - General Internal Medicine 05/24/11 Yanira Plasencia, [facility] Explosive Operator Fuse 02/23/22 Ja Becker MD [address] [facility] [address] Physician Hematology/Oncology 05/03/22 Amber Rodriguez, SYRUP MACHINE LABORER.REJECT OPENER AND FILLER [address] [place] [address] Nurse Practitioner Hematology/Oncology 05/03/22 Rhona Ruiz, ILENE [address] [facility] [place] [address] Specialty Metal Weigher Hematology/Oncology 05/03/[address] [facility] [place] [address] Nutrition 11/20/22 Dock Grader Relationship Specialty Start Date End Date Prerna Grissom II, MD PCP - General Internal Medicine 05/24/11 Yanira Plasencia LSW Explosive Operator Fuse 02/23/22 Ja Becker MD [address] [facility] [place] [address] Physician Hematology/Oncology 05/03/22 Amber Rodriguez, SYRUP MACHINE LABORER.REJECT OPENER AND FILLER [address] [place] [address] Nurse Practitioner Hematology/Oncology 05/03/22 Rhona Ruiz RN [address] [facility] [facility] [place] [address] Specialty Metal Weigher Hematology/Oncology 05/03/[address] [facility] [place] [address] Nutrition 11/20/22 Dock Grader Relationship Specialty Start Date End Date Prerna Grissom II, MD PCP - General Internal Medicine 05/24/11 Yanira Plasencia LSW Explosive Operator Fuse 02/23/22 Ja Becker MD [address] [facility] [facility] [place] [address] Physician Hematology/Oncology 05/03/22 Amber Rodriguez, SYRUP MACHINE LABORER.REJECT OPENER AND FILLER [address] [facility] [address] [address] Nurse Practitioner Hematology/Oncology 05/03/22 Rhona Ruiz, RN [address] [facility] [place] [address] Specialty Metal Weigher Hematology/Oncology 05/03/[address] [place] [address] [place] [address] Nutrition 11/20/22 Kobe [place]án[place] [address] [place] [address] [phone] Wardrobe Manager Pulmonary Disease 01/17/24 Dock Grader Relationship Specialty Start Date End Date Prerna Grissom II, MD PCP - General Internal Medicine 05/24/11 Yanira Plasencia LSW Explosive Operator Fuse 02/23/22 Ja Becker MD [address] [place] [address] [place] [address] Physician Hematology/Oncology 05/03/22 Amber Rodriguez, SYRUP MACHINE LABORER.REJECT OPENER AND FILLER [address] [place] [address] [place] [address] Nurse Practitioner Hematology/Oncology 05/03/22 Rhona Ruiz, ILENE [address] [facility] [address] Specialty Metal Weigher Hematology/Oncology 05/03/[address] [facility] [place] [address] Nutrition 11/20/22 Kobe Hernández [address] [place] [address] [phone] Wardrobe Manager Pulmonary Disease 01/17/24 Dock Grader Relationship Specialty Start Date End Date Prerna Grissom II, MD PCP - General Internal Medicine 05/24/11 Yanira Plasencia, OFFICE CLERK ASSISTANT Explosive Operator Fuse 02/23/22 Ja Becker MD [address] [place] [address] [place], [place] [id number] Physician Hematology/Oncology 05/03/22 Amber Rodriguez APRN.REJECT OPENER AND FILLER [address] [place] [address] [place] [address] Nurse Practitioner Hematology/Oncology 05/03/22 Rhona Ruiz, ILENE [address] [place] [address] [place] [address] Specialty Metal Weigher Hematology/Oncology 05/03/[address] [place] [address] [place] [address] Nutrition 11/20/22 Kobe Hernández [address] [place] [address] [phone] Wardrobe Manager Pulmonary Disease 01/17/24 Dock Grader Relationship Specialty Start Date End Date Prerna Grissom II, MD PCP - General Internal Medicine 05/24/11 Yanira Plasencia LSW Explosive Operator Fuse 02/23/22 Ja Becker MD [address] [place] [address] [address] [place], [place] 9147170 Physician Hematology/Oncology 05/03/22 Amber Rodriguez, [employer]YR[employer] MACHINE LABORER.REJECT OPENER AND FILLER [address] [facility] [place] [address] Nurse Practitioner Hematology/Oncology 05/03/22 Rhona Ruiz, ILENE [address] [facility] [place] [address] Specialty Metal Weigher Hematology/Oncology 05/03/[address] [facility] [address] Nutrition 11/20/22 Kobe Hernández [address] [place] [phone] Wardrobe Manager Pulmonary Disease 01/17/24 Dock Grader Relationship Specialty Start Date End Date Prerna Grissom II, MD PCP - General Internal Medicine 05/24/11 Yanira Plasencia LSW Explosive Operator Fuse 02/23/22 aJ Becker MD [address] [facility] [address] Physician Hematology/Oncology 05/03/22 Amber Rodriguez, [employer]YR[employer] MACHINE LABORER.REJECT OPENER AND FILLER [address] [facility] [place] [address] Nurse Practitioner Hematology/Oncology 05/03/22 Rhona Ruiz, ILENE [address] [facility] [place] [address] Specialty Metal Weigher Hematology/Oncology 05/03/[address] [facility] [place] [address] Nutrition 11/20/22 Kobe Hernández [address] [place] [address] [phone] Wardrobe Manager Pulmonary Disease 01/17/24 Dock Grader Relationship Specialty Start Date End Date Prerna Grissom II, MD PCP - General Internal Medicine 05/24/11 Yanira Plasencia LSW Explosive Operator Fuse 02/23/22 Ja Becker MD [address] [facility] [facility] [address] [place], [place] 701[address]70 Physician Hematology/Oncology 05/03/22 Amber Rodriguez APRN.REJECT OPENER AND FILLER [address] [facility] [address] [place], [place] 0994070 Nurse Practitioner Hematology/Oncology 05/03/22 Rhona Ruiz, ILENE [address] [facility] [facility] [place] [address] Specialty Metal Weigher Hematology/Oncology 05/03/[address] [facility] [facility] [place] [address] Nutrition 11/20/22 Kobe Hernández [address] [place] [phone] Wardrobe Manager Pulmonary Disease 01/17/24 Dock Grader Relationship Specialty Start Date End Date Prerna Grissom II, MD PCP - General Internal Medicine 05/24/11 Yanira Plasencia LSW Explosive Operator Fuse 02/23/22 Ja Becker MD [address] [facility] [address] [place], [place] [id number] Physician Hematology/Oncology 05/03/22 Amber Rodriguez, [employer] M[employer]INE LABORER.REJECT OPENER AND FILLER [address] [facility] [place] [address] Nurse Practitioner Hematology/Oncology 05/03/22 Rhona Ruiz, ILENE [address] [facility] [place] [address] Specialty Metal Weigher Hematology/Oncology 05/03/[address] [facility] [place] [address] Nutrition 11/20/22 Kobe Hernández [address] [place] [address] [phone] Wardrobe Manager Pulmonary Disease 01/17/24 Dock Grader Relationship Specialty Start Date End Date Prerna Grissom II, MD PCP - General Internal Medicine 05/24/11 Yanira Plasencia LSW Explosive Operator Fuse 02/23/22 Ja Becker MD [address] [facility] [place] [address] Physician Hematology/Oncology 05/03/22 Amber Rodriguez, [employer] M[employer]INE LABORER.REJECT OPENER AND FILLER [address] [facility] [place] [address] Nurse Practitioner Hematology/Oncology 05/03/22 Rhona Ruiz, ILENE [address] [facility] [place] [address] Specialty Metal Weigher Hematology/Oncology 05/03/[address] [facility] [place] [address] Nutrition 11/20/22 Kobe Hernández [address] [place] [address] [phone] Wardrobe Manager Pulmonary Disease 01/17/24 Dock Grader Relationship Specialty Start Date End Date Prerna Grissom II, MD PCP - General Internal Medicine 05/24/11 Yanira Plasencia LSW Explosive Operator Fuse 02/23/22 Ja Becker MD [address] [facility] [address] [place], [place] [id number] Physician Hematology/Oncology 05/03/22 Amber Rodriguez, [employer]YR[employer] MACHINE LABORER.REJECT OPENER AND FILLER [address] [facility] [place] [address] Nurse Practitioner Hematology/Oncology 05/03/22 Rhona Ruiz, ILENE [address] [facility] [place] [address] Specialty Metal Weigher Hematology/Oncology 05/03/[address] [facility] [place] [address] Nutrition 11/20/22 Dock Grader Relationship Specialty Start Date End Date Prerna Grissom II, MD PCP - General Internal Medicine 05/24/11 Yanira Plasencia LSW Explosive Operator Fuse 02/23/22 Ja Becker MD [address] [facility] [place] [address] Physician Hematology/Oncology 05/03/22 Amber Rodriguez, [employer]YR[employer] MACHINE LABORER.REJECT OPENER AND FILLER [address] [facility] [place] [address] Nurse Practitioner Hematology/Oncology 05/03/22 Rhona Ruiz, ILENE [address] [facility] [place] [address] Specialty Metal Weigher Hematology/Oncology 05/03/[address] [place] [address] [place] [address] Nutrition 11/20/22 Kobe Hernández [address] [place] [address] [phone] Wardrobe Manager Pulmonary Disease 01/17/24 Dock Grader Relationship Specialty Start Date End Date Prerna Grissom II, MD PCP - General Internal Medicine 05/24/11 Yanira Plasencia LSW Explosive Operator Fuse 02/23/22 Ja Becker MD [address] [place] [address] [place] [address] Physician Hematology/Oncology 05/03/22 Amber Rodriguez APRN.REJECT OPENER AND FILLER [address] [place] [address] [place] [address] Nurse Practitioner Hematology/Oncology 05/03/22 Rhona Ruiz, ILENE [address] [facility] [address] Specialty Metal Weigher Hematology/Oncology 05/03/[address] [place] [address] [place] [address] Nutrition 11/20/22 Dock Grader Relationship Specialty Start Date End Date Prerna Grissom II, MD PCP - General Internal Medicine 05/24/11 Yanira Plasencia LSW Explosive Operator Fuse 02/23/22 Ja Becker MD [address] [facility] [address] Physician Hematology/Oncology 05/03/22 Amber Rodriguez, SYRUP MACHINE LABORER.REJECT OPENER AND FILLER [address] [facility] [address] Nurse Practitioner Hematology/Oncology 05/03/22 Rhona Ruiz, ILENE [address] [facility] [address] Specialty Metal Weigher Hematology/Oncology 05/03/[address] [facility] [address] Nutrition 11/20/22 Dock Grader Relationship Specialty Start Date End Date Prerna Grissom II, MD PCP - General Internal Medicine 05/24/11 Yanira Plasencia [facility] Explosive Operator Fuse 02/23/22 Ja Becker MD [address] [place] [address] [place] [address] Physician Hematology/Oncology 05/03/22 Amber Rodriguez, SYRUP MACHINE LABORER.REJECT OPENER AND FILLER [address] [facility] [address] Nurse Practitioner Hematology/Oncology 05/03/22 Rhona Ruiz, RN [address] [facility] [address] Specialty Metal Weigher Hematology/Oncology 05/03/[address] [facility] [address] Nutrition 11/20/22 Kobe Hernández MD [address] [place] [address] [address] [place] [address] Wardrobe Manager Pulmonary Disease 01/17/24 Dock Grader Relationship Specialty Start Date End Date Prerna Grissom II, MD PCP - General Internal Medicine 05/24/11 Yanira Plasencia OFFICE CLERK ASSISTANT Explosive Operator Fuse 02/23/22 Ja Becker MD [address] [place] [address] [place] [address] Physician Hematology/Oncology 05/03/22 Amber Rodriguez, SYRUP MACHINE LABORER.REJECT OPENER AND FILLER [address] [place] [address] [place] [address] Nurse Practitioner Hematology/Oncology 05/03/22 Rhona Ruiz, ILENE [address] [place] [address] [place] [address] Specialty Metal Weigher Hematology/Oncology 05/03/22 Dock Grader Relationship Specialty Start Date End Date Prerna Grissom II, MD PCP - General Internal Medicine 05/24/11 Yanira Plasencia LSW Explosive Operator Fuse 02/23/22 Ja Becker MD [address] [place] [address] [place] [address] Physician Hematology/Oncology 05/03/22 Amber Rodriguez, SYRUP MACHINE LABORER.REJECT OPENER AND FILLER [address] [place] [address] [place] [address] Nurse Practitioner Hematology/Oncology 05/03/22 Rhona Ruiz, RN [address] [facility] [address] Specialty Metal Weigher Hematology/Oncology 05/03/22 Dock Grader Relationship Specialty Start Date End Date Prerna Grissom II, MD PCP - General Internal Medicine 05/24/11 Yanira Plasecnia, OFFICE CLERK ASSISTANT Explosive Operator Fuse 02/23/22 Ja Becker MD [address] [place] [address] [place] [address] Physician Hematology/Oncology 05/03/22 Amber Rodriguez APRN.REJECT OPENER AND FILLER [address] [facility] [address] Nurse Practitioner Hematology/Oncology 05/03/22 Rhona Ruiz, ILENE [address] [facility] [address] Specialty Metal Weigher Hematology/Oncology 05/03/[address] [place] [address] [place] [address] Nutrition 11/20/22 Kobe Hernández MD [address] [place] [address] [phone] Wardrobe Manager Pulmonary Disease 01/17/24 Dock Grader Relationship Specialty Start Date End Date Prerna Grissom II, MD PCP - General Internal Medicine 05/24/11 Yanira Plasencia LSW Explosive Operator Fuse 02/23/22 Ja Becker MD [address] [facility] [address] [place], [place] [id number] Physician Hematology/Oncology 05/03/22 Amber Rodriguez, SYRUP MACHINE LABORER.REJECT OPENER AND FILLER [address] [facility] [address] Nurse Practitioner Hematology/Oncology 05/03/22 Rhona Ruiz, ILENE [address] [facility] [place] [address] Specialty Metal Weigher Hematology/Oncology 05/03/[address] [facility] [place] [address] Nutrition 11/20/22 Kobe Hernández MD [address] [place] [address] [phone] Wardrobe Manager Pulmonary Disease 01/17/24 Dock Grader Relationship Specialty Start Date End Date Prerna Grissom II, MD PCP - General Internal Medicine 05/24/11 Yanira Plasencia LSW Explosive Operator Fuse 02/23/22 Dock Grader Relationship Specialty Start Date End Date Prerna Grissom II, MD PCP - General Internal Medicine 05/24/11 Yanira Plasencia LSW Explosive Operator Fuse 02/23/22 Ja Becker MD [address] [facility] [place] [address] Physician Hematology/Oncology 05/03/22 Amber Rodriguez, SYRUP MACHINE LABORER.REJECT OPENER AND FILLER [address] [facility] [place] [address] Nurse Practitioner Hematology/Oncology 05/03/22 Rhona Ruiz, RN [address] [place] [address] [place] [address] Specialty Metal Weigher Hematology/Oncology 05/03/22 Dock Grader Relationship Specialty Start Date End Date Prerna Grissom II, MD PCP - General Internal Medicine 05/24/11 Yanira Plasencia LSW Explosive Operator Fuse 02/23/22 Dock Grader Relationship Specialty Start Date End Date Prerna Grissom II, MD PCP - General Internal Medicine 05/24/11 Dock Grader Relationship Specialty Start Date End Date Prerna Grissom MD [address] [place] [address] PCP - General Internal Medicine 11/07/22 Prerna Grissom MD [address] [place] [address] PCP - ACO Reach 10/31/23Sunday, Lindsay, BINDING STITCHER [address] [place] [address] Licensed Practical Nurse Family Medicine 10/04/23 Dock Grader Relationship Specialty Start Date End Date Prerna Grissom MD [address] [place] [address] PCP - General Internal Medicine 11/07/22 Prerna Grissom MD [address] [place] [address] PCP - ACO Reach 10/31/23Sunday, Lindsay, BINDING STITCHER [address] [place] [address] Licensed Practical Nurse Family Medicine 10/04/23 Dock Grader Relationship Specialty Start Date End Date Prerna Grissom II, MD PCP - General Internal Medicine 05/24/11 Yanira Plasencia, OFFICE CLERK ASSISTANT Explosive Operator Fuse 02/23/22 Ja Becker MD [address] [facility] [address] [place], [place] [phone] Physician Hematology/Oncology 05/03/22 Amber Rodriguez, SYRUP MACHINE LABORER.REJECT OPENER AND FILLER [address] [facility] [place] [address] Nurse Practitioner Hematology/Oncology 05/03/22 Rhona Ruiz, ILENE [address] [facility] [place] [address] Specialty Metal Weigher Hematology/Oncology 05/03/[address] [facility] [address] [place], [place] [phone] Nutrition 11/20/22 Kobe Hernández MD [address] [place] [address] [phone] Wardrobe Manager Pulmonary Disease 01/17/24 Dock Grader Relationship Specialty Start Date End Date Prerna Grissom II, MD PCP - General Internal Medicine 05/24/11 Yanira Plasencia LSW Explosive Operator Fuse 02/23/22 Ja Becker MD [address] [facility] [address] [place], [place] [phone] Physician Hematology/Oncology 05/03/22 Amber Rodriguez, SYRUP MACHINE LABORER.REJECT OPENER AND FILLER [address] [facility] [address] [place], [place] [id number] Nurse Practitioner Hematology/Oncology 05/03/22 Rhona Ruiz, ILENE [address] [facility] [place] [address] Specialty Metal Weigher Hematology/Oncology 05/03/[address] [facility] [place] [address] Nutrition 11/20/22 Kobe Hernández MD [address] [place] [address] [address] [place] [address] Wardrobe Manager Pulmonary Disease 01/17/24 Dock Grader Relationship Specialty Start Date End Date Prerna Grissom MD [address] [place] [address] [address] [place] [address] PCP - General Internal Medicine 12/13/18 Dock Grader Relationship Specialty Start Date End Date Prerna Grissom II, MD PCP - General Internal Medicine 05/24/11 Yanira Plasencia LSW Explosive Operator Fuse 02/23/22 Ja Becker MD [address] [place] [address] [place] [address] Physician Hematology/Oncology 05/03/22 Amber Rodriguez, SYRUP MACHINE LABORER.REJECT OPENER AND FILLER [address] [facility] [place] [address] Nurse Practitioner Hematology/Oncology 05/03/22 Rhona Ruiz, RN [address] [facility] [place] [address] Specialty Metal Weigher Hematology/Oncology 05/03/[address] [place] [address] [place] [address] Nutrition 11/20/22 Kobe Hernández MD [address] [place] [address] [phone] Wardrobe Manager Pulmonary Disease 01/17/24 Dock Grader Relationship Specialty Start Date End Date Prerna Grissom II, MD PCP - General Internal Medicine 05/24/11 Yanira Plasencia LSW Explosive Operator Fuse 02/23/22 Ja Becker MD [address] [place] [address] [address] [place], [place] [phone] Physician Hematology/Oncology 05/03/22 Amber Rodriguez APRN.REJECT OPENER AND FILLER [address] [place] [address] [place] [address] Nurse Practitioner Hematology/Oncology 05/03/22 Rhona Ruiz, RN [address] [place] [address] [place] [address] Specialty Metal Weigher Hematology/Oncology 05/03/[address] [place] [address] [place] [address] Nutrition 11/20/22 Kobe Hernández MD [address] [place] [address] [phone] Wardrobe Manager Pulmonary Disease 01/17/24 Dock Grader Relationship Specialty Start Date End Date Prerna Grissom MD [address] [place] [address] [address] [place] [address] PCP - General Internal Medicine 11/07/22 Prerna Grissom MD [address] [place] [address] PCP - ACO Reach 10/31/23SundayLindsay LPN [address] [place] [address] Licensed Practical Nurse Family Medicine 10/04/23 Dock Grader Relationship Specialty Start Date End Date Prerna Grissom II, MD PCP - General Internal Medicine 05/24/11 Yanira Plasencia LSW Explosive Operator Fuse 02/23/22 Ja Becker MD [address] [place] [address] [place] [address] Physician Hematology/Oncology 05/03/22 Amber Rodriguez APRN.REJECT OPENER AND FILLER [address] [place] [address] [place] [address] Nurse Practitioner Hematology/Oncology 05/03/22 Rhona Ruiz, ILENE [address] [place] [address] [place] [address] Specialty Metal Weigher Hematology/Oncology 05/03/[address] [place] [address] [place] [address] Nutrition 11/20/22 Kobe Hernández MD [address] [place] [address] [address] [place], [place] [phone] Wardrobe Manager Pulmonary Disease 01/17/24 Dock Grader Relationship Specialty Start Date End Date Prerna Grissom MD [address] [place] [address] PCP - General Internal Medicine 11/07/22 Prerna Grissom MD [address] [place] [address] PCP - ACO Reach 10/31/23SundayLindsay LPN [address] [place] [address] Licensed Practical Nurse Family Medicine 10/04/23 Dock Grader Relationship Specialty Start Date End Date Prerna Grissom MD [address] [place] [address] PCP - General Internal Medicine 11/07/22 Prerna Grissom MD [address] [place] [address] PCP - ACO Reach 10/31/23SundayLindsay LPN [address] [place] [address] Licensed Practical Nurse Family Medicine 10/04/23 (unrecognized sect ion and content) No Status Records FoundNo Status Records FoundNo Status Records FoundNo Status Records FoundNo Status Records FoundNo Status Records FoundNo Status Records FoundNo Status Records FoundNo Status Records FoundNo Status Records Found INFORMATION SOURCE (unrecogn ized section and content) DATE CREATED AUTHOR 05/24/2022 [facility] DATE CREATED AUTHOR AUTHOR'S ORGANIZ ATION 06/25/2022 [facility] DATE CREATED AUTHOR AUTHOR'S ORGANIZ ATION 10/13/2022 [facility] DATE CREATED AUTHOR AUTHOR'S ORGANIZ ATION 03/22/2023 [facility] DATE CREATED AUTHOR AUTHOR'S ORGANIZ ATION 01/21/2024 [facility] DATE CREATED AUTHOR AUTHOR'S ORGANIZ ATION 02/01/2024 [facility] DATE CREATED AUTHOR AUTHOR'S ORGANIZ ATION 03/25/2024 [facility] DATE CREATED AUTHOR AUTHOR'S ORGANIZ ATION 04/19/2024 [facility] DATE CREATED AUTHOR AUTHOR'S ORGANIZ ATION 04/24/2024 [facility] DATE CREATED AUTHOR AUTHOR'S ORGANIZ ATION 04/26/2024 [facility] EPIC Goals (unrecognized section and content) Goals may be documented in a n alternate sectionGoals may be documented in an alternate section Inactive Administered Medications - up to 3 most recent administrations Administered Medications (un recognized section and content) Medication Order MAR Action Action Date Dose Rate Site pamidronate 30 mg in NaCl 0.9% 250 mL (AREDIA) 30 mg, INTRAVENOUS, at 260 mL/hr, Administer over 1 Hours, ONCE, 1 dose, On Sun08/06/23 at 1100, APPROXIMATE TOTAL VOLUME mL - 24 HOUR EXP: 08/07/2023@1100 RT Hazardous Potential Reproductive Risk Drug: Use appropriate PPE. New Bag/Syringe/Bottle 08/06/2023 11:18 AM EST 30 mg 260 mL/hr sodium chloride 0.9 % (flush) 10-20 mL (BD POSIFLUSH) 10-20 mL, INTRAVENOUS, DIRECTED, Starting on Sun08/06/23 at 1100, Until Sun08/06/23 at 1502, If patient has a heparin allergy: IVADS not in use should be accessed and flushed once every 4 to 6 weeks with 10 mL of 0.9% NaCl. Upon de-access of Rolle needle, when re-access is not indicated, ports will be flushed with 10 mL of 0.9% NaCl. Ports should be flushed with 20 mL of 0.9% NaCl after blood draws. Given 08/06/2023 11:00 AM EST 20 mL FOR RECORDS PERTAINING TO PATIENTS WHO ARE OR HAVE BEEN ENROLLED IN A CHEMICAL DEPENDENCY/SUBSTANCEABUSE PROGRAM, SOME INFORMATION MAY BE OMITTED. This clinical summary was aggregated from multiple sources. Caution should be exercised in using it in the provision of clinical care. This summary normalizes information from multiple sources, and as a consequence, information in this document may materially change the coding, format and clinical context of patient data. In addition, data may be omitted in some cases. CLINICAL DECISIONS SHOULD BE BASED ON THE PRIMARY CLINICAL RECORDS. [facility]. provides no warranty or guarantee of the accuracy or completeness of information in this document.
--- NOTE | 2024-04-27 08:35 | ED_ITS ---
HPI HPI - General Adult General Chief complaint: Shortness of Breath/Dyspnea Stated complaint: sob Time Seen by Provider: 04/27/24 08:15 History of Present Illness HPI narrative: The patient is a 79-year-old male with history of lung cancer s/p right upper lobe resection and radiation and he does not have any active treatment at the moment the patient is coming to us with 2 to 3 days history of feeling short of breath associated with a cough productive, no chest pain the patient has been exposed to his also had similar symptoms The patient was evaluated initially by the EMS who found him in respiratory distress started on breathing treatment and magnesium IV was given in addition to Solu-Medrol before arrival The patient apparently was saturating in the upper 80s by the EMS Related Data Home Medications ?Medication ?Instructions ?Recorded ?Confirmed albuterol sulfate 2.5 mg/3 mL 2.5 mg inhalation Q6H PRN 11/07/23 04/27/24 (0.083 %) solution for nebulization shortness of breath or wheezing albuterol sulfate 90 mcg/actuation 2 puff inhalation Q4H PRN 11/07/23 04/27/24 aerosol inhaler shortness of breath or wheezing amlodipine 2.5 mg tablet 2.5 mg PO QDAY 11/07/23 04/27/24 aspirin 81 mg tablet,delayed 81 mg PO DAILY 11/07/23 04/27/24 release (Adult Aspirin Regimen) atorvastatin 40 mg tablet 40 mg PO QDAY 11/07/23 04/27/24 cholecalciferol (vitamin D3) 50 50 mcg PO DAILY 11/07/23 04/27/24 mcg (2,000 unit) tablet (D3 DOTS) clonazepam 1 mg tablet 1 mg PO TID PRN anxiety 11/07/23 04/27/24 docusate sodium 100 mg capsule 200 mg PO BID 11/07/23 04/27/24 (Stool Softener) duloxetine 60 mg capsule,delayed 60 mg PO BID 11/07/23 04/27/24 release finasteride 5 mg tablet 5 mg PO QDAY 11/07/23 04/27/24 fluticasone fur. 100 mcg-umeclid 1 inh inhalation DAILY 11/07/23 04/27/24 62.5 mcg-vilant 25 mcg inhalat.powder (Trelegy Ellipta) gabapentin 300 mg capsule 600 mg PO Q8H 11/07/23 04/27/24 hydrocodone 5 mg-acetaminophen 325 2 tab PO Q6H PRN pain 11/07/23 04/27/24 mg tablet meloxicam 15 mg tablet 15 mg PO QDAY 11/07/23 04/27/24 nitroglycerin 0.4 mg sublingual 0.4 mg sublingual Q5M PRN chest 11/07/23 04/27/24 tablet pain sennosides 8.6 mg tablet (Senna 17.2 mg PO BID PRN constipation 11/07/23 04/27/24 Laxative) tamsulosin 0.4 mg capsule 0.8 mg PO .QHS 11/07/23 04/27/24 furosemide 20 mg tablet 20 mg PO .qod 04/27/24 04/27/24 Allergies Allergy/AdvReac Type Severity Reaction Status Date / Time No Known Drug Allergies Allergy Verified 04/27/24 08:43 Opioid HPI Opioid Management Most Recent Opioid Data: Last Pain Scale 10 01/07/24 21:19 01/07/24 Review of Systems ROS Status of ROS 10 or more systems reviewed and unremark able except as noted in history and below [facility] Medical History (Updated 04/27/24 @ 09:39 by Li Cazares MD) Malnutrition ?E46 - Unspecified protein-calorie malnutrition (ICD-10) Acute on chronic diastolic (congestive) heart failure ?I50.33 - Acute on chronic diastolic (congestive) heart failure (ICD-10) Acute respiratory failure with hypoxia ?J96.01 - Acute respiratory failure with hypoxia (ICD-10) CAD (coronary artery disease) ?I25.10 - Atherosclerotic heart disease of [place] coronary artery without angina pectoris (ICD-10) Hypertension ?I10 - Essential (primary) hypertension (ICD-10) Lung cancer ?C34.90 - Malignant neoplasm of unspecified part of unspecified bronchus or lung (ICD-10) Bilateral pneumonia ?J18.9 - Pneumonia, unspecified organism (ICD-10) Depression with anxiety ?F41.8 - Other specified anxiety disorders (ICD-10) BPH (benign prostatic hyperplasia) ?N40.0 - Benign prostatic hyperplasia without lower urinary tract symptoms (ICD-10) Past heart attack ?I25.2 - Old myocardial infarction (ICD-10) Surgical History (Updated 05/08/24 @ 16:06 by Kristan Florez RN) History of appendectomy ?Z90.49 - Acquired absence of other specified parts of digestive tract (ICD- 10) H/O pneumonectomy ?Z98.890 - Other specified postprocedural states (ICD-10) ?Z90.2 - Acquired absence of lung [part of] (ICD-10) Family History (Updated 11/07/23 @ 15:13 by Kristan Florez RN) Father Family history of hypertension Social History (Updated 11/07/23 @ 15:14 by Kristan Florez RN) Within the past year, how often did you have a drink containing alcohol: never Score interpretation: A score less than 4 is consistent with normal alcohol consumption. Smoking status: Former smoker Non-prescribed substance use: denies use Highest level of school completed/degree received: high school graduate Exam Narrative Exam Narrative: Nurses notes and vital signs reviewed and patient is not hypoxic. General: Well-appearing and mild respiratory distress Skin: Warm, dry, no pallor noted. No rash. Head: Normocephalic, atraumatic. Neck: Supple, non-tender. Eye: Pupils are equal, round and EOMI. No scleral icterus. Ears, Nose, Mouth, and Throat: TM are clear, no nasal mucosal hypertrophy. Oral mucosa is moist, no posterior oropharynx erythema, uvula is mid-line Cardiovascular: Regular Rate and Rhythm without murmur, gallop or rub. Respiratory: The patient have a decreased air entry bilaterally with crackles heard in both lung hoffmann Chest Wall: no tenderness Back: No midline thoracic or lumbar vertebral tenderness. No CVA tenderness Musculoskeletal: There is bilateral 1+ pitting edema GI: Abdomen is soft, non-distended. Normal bowel sounds. No masses appreciated. No tenderness to palpation. No rebound, guarding, or rigidity noted. Neurological: A&O x4. No cranial nerve dysfunction observed. Moves all extremities. Sensation intact. Psychiatric: Cooperative and interactive. Normal mood and affect. Constitutional Vital Signs, click to edit/add: Last Vital Signs Temp 99.3 F 04/27/24 08:18 Pulse 101 H 04/27/24 11:30 Resp 19 04/27/24 11:30 BP 144/72 H 04/27/24 11:30 Pulse Ox 91 L 04/27/24 11:30 O2 Del Method CPAP 04/27/24 09:16 O2 Flow Rate 40 04/27/24 09:16 Course Vital Signs Vital signs: Vital Signs Blood Pressure 163/76 H 04/27/24 08:11 Temperature 99.3 F 04/27/24 08:18 Pulse Rate 101 H 04/27/24 11:30 Respiratory Rate 19 04/27/24 11:30 Blood Pressure 144/72 H 04/27/24 11:30 Pulse Oximetry 91 L 04/27/24 11:30 Oxygen Delivery Method CPAP 04/27/24 09:16 Oxygen Delivery Flow Rate 40 04/27/24 09:16 Medical Decision Making MDM Narrative Medical decision making narrative: EKG showing sinus rhythm with a heart rate of 107 with some sinus arrhythmia and PVCs CBC shows leukocytosis that is mild in addition to the chemistry showing elevated BNP Troponin was normal The patient presented to us with a picture of possible pneumonia versus CHF exacerbation He had previous presentation admission due to acute on chronic congestive heart failure I have no recent echo done on this patient in our system The patient was started initially on CPAP because he was tachypneic saturating in the 92% and he was significantly improving with the CPAP Patient was started on Lasix [address] of the chest with contrast showed no PE The patient right now was started on levofloxacin IV as well and he will be admitted for pneumonia management The patient was feeling much better on the CPAP and had the CPAP removed after he was started being diuresed It is noted to be that the patient mentioned initially although he does not have any advanced directive that he does not want to be intubated in case that was needed the patient case was discussed with and she agrees on the above mentioned plan Lab Data Labs: Lab Results 04/27/24 04/27/24 Range/Units 08:35 08:42 WBC 12.5 H (4.0-11.0) 10^3/uL RBC 2.69 L (4.70-6.10) 10^6/uL Hgb 9.2 L (14.0-18.0) g/dL Hct 28.3 L (42.0-54.0) % MCV 105.2 H (80.0-94.0) fL MCH 34.2 H (25.9-34.0) pg MCHC 32.5 (29.9-35.2) g/dL RDW 16.3 H (11.0-15.0) % Plt Count 190 (150-450) 10^3/uL MPV 10.5 (9.5-13.5) fL Seg Neuts % (Manual) 83.0 H (43.0-75.0) Band Neutrophils % 11.0 H (0-5) % Lymphocytes % (Manual) 6.0 L (20.5-60.0) % Monocytes % (Manual) 0.0 L (1.7-12.0) % Eosinophils % (Manual) 0.0 L (0.9-7.0) % Basophils % (Manual) 0.0 L (0.2-2.0) % Neutrophils # (Manual) 10.37 H (1.4-6.5) 10^3/uL Band Neutrophils # 1.4 H (0.0-0.3) 10^3/uL Lymphocytes # (Manual) 0.75 L (1.20-3.80) 10^3/uL Monocytes # (Manual) 0.00 L (0.30-0.80) 10^3/uL Eosinophils # (Manual) 0.00 (0.00-0.70) 10^3/uL Basophils # (Manual) 0.00 (0.00-0.10) 10^3/uL PT 12.3 H (9.0-11.6) sec INR 1.18 Puncture Site R radial ABG pH 7.423 (7.350-7.450) ABG pCO2 35.8 (35.0-45.0) mmHg ABG pO2 81.6 (80.0-100.0) mmHg ABG HCO3 23.3 (22.0-26.0) mmol/L ABG O2 Saturation 96.8 % ABG Base Excess -1.1 (-2.0-2.0) mmol/L Armond Test Positive (POSITIVE) FiO2 40 % BiPAP 10 Sodium 138 (136-145) mmol/L Potassium 3.6 (3.5-5.1) mmol/L Chloride 103 (98-107) mmol/L Carbon Dioxide 23.9 (21.0-32.0) mmol/L Anion Gap 14.7 BUN 37.0 H (7.0-18.0) mg/dL Creatinine 1.21 (0.70-1.30) mg/dL Est GFR ( Amer) >60 (>=60 mL/min/1.73m^2) Est GFR (Non-Af Amer) 58 L (>=60 mL/min/1.73m^2) BUN/Creatinine Ratio 30.6 Glucose 132 H (74-106) mg/dL Lactate 1.7 (0.4-2.0) mmol/L Calcium 8.2 L (8.5-10.1) mg/dL Magnesium 2.9 H (1.8-2.4) mg/dL Total Bilirubin 0.8 (0.2-1.0) mg/dL AST 59 H (15-37) U/L ALT 87 H (16-63) U/L Alkaline Phosphatase 136 H (46-116) U/L Troponin I High Sens 53.2 (4.0-76.1) pg/mL NT-Pro-B Natriuret Pep 2882.0 H* (<=1800.0) pg/mL Total Protein 7.1 (6.4-8.2) g/dL Albumin 2.4 L (3.4-5.0) g/dL Globulin 4.7 g/dL Albumin/Globulin Ratio 0.5 Discharge Plan Discharge Chief Complaint: Shortness of Breath/Dyspnea Clinical Impression: CHF exacerbation, Pneumonia Patient Disposition: Admitted As Inpatient
[2024-04-27 08:44] LABS: ABG PCO2 35.8 mmHg (35.0-45.0); HCO3 ABG 23.3 mmol/L (22.0-26.0); PO2 ABG 81.6 mmHg (80.0-100.0); pH ABG 7.423 (7.350-7.450)
[2024-04-27 08:45] LABS: Allen Test POSITIVE (POSITIVE); BIPAP Pressure 10; Base Excess ABG -1.1 mmol/L (-2.0-2.0); Fractionated Inspired Oxygen 40 %; O2 Mode CPAP; Oxygen Saturation ABG 96.8 %; Puncture Site R RADIAL
[2024-04-27 08:56] LABS: Hematocrit 28.3 % (42.0-54.0); Hemoglobin 9.2 g/dL (14.0-18.0); Mean Corpuscular HGB Conc 32.5 g/dL (29.9-35.2); Mean Corpuscular Hemoglobin 34.2 pg (25.9-34.0); Mean Corpuscular Volume 105.2 fL (80.0-94.0); Mean Platelet Volume 10.5 fL (9.5-13.5); Platelet Count 190 10^3/uL (150-450); Red Blood Count 2.69 10^6/uL (4.70-6.10); Red Cell Distribution Width 16.3 % (11.0-15.0); White Blood Count 12.5 10^3/uL (4.0-11.0)
[2024-04-27 09:14] LABS: Alanine Aminotransferase 87 U/L (16-63); Albumin Globulin Ratio 0.5; Albumin Level 2.4 g/dL (3.4-5.0); Alkaline Phosphatase 136 U/L (46-116); Anion Gap 14.7; Aspartate Amino Transferase 59 U/L (15-37); BUN Creatinine Ratio 30.6; Bilirubin Total 0.8 mg/dL (0.2-1.0); Calcium 8.2 mg/dL (8.5-10.1); Carbon Dioxide 23.9 mmol/L (21.0-32.0); Chloride 103 mmol/L (98-107); Estimated GFR (African America >60 (>=60 mL/min/1.73m^2); Estimated GFR (Non-African Ame 58 (>=60 mL/min/1.73m^2); Globulin 4.7 g/dL; Glucose 132 mg/dL (74-106); Potassium 3.6 mmol/L (3.5-5.1); Sodium 138 mmol/L (136-145); Total Protein 7.1 g/dL (6.4-8.2)
[2024-04-27 09:16] LABS: Lactate/Lactic Acid 1.7 mmol/L (0.4-2.0); Troponin I High Sensitivity 53.2 pg/mL (4.0-76.1)
[2024-04-27 09:30] LABS: INR 1.18; Prothrombin Time 12.3 sec (9.0-11.6)
[2024-04-27 09:35] LABS: Band Neutrophils Absolute 1.4 10^3/uL (0.0-0.3); Lymphocytes Absolute Manual 0.75 10^3/uL (1.20-3.80); Segmented Neut Absolute Manual 10.37 10^3/uL (1.4-6.5)
[2024-04-27] MEDS: FUROSEMIDE 40 MG/4 ML VIAL IVP (09:35)
[2024-04-27] MEDS: LEVOFLOXACIN IN DEXTROSE 5 % 750 MG/150 ML PREMIX 100 MG IV (09:37)
--- NOTE | 2024-04-27 09:58 | CT_ITS ---
[address] [address] Patient Name: RAGHAVENDRA HEARD MRN: [id number] date: 1945 Sex: M Assigned Patient Location: ER Current Patient Location: Accession/Order Number: [id number] Exam Date: 04/27/2024 10:45 Report Date: 04/27/2024 11:48 At the request of: JASON TAVERAS Procedure: CT angio chest EXAM: CT angio chest HISTORY: sob hx of cancer hypoxemia r/o PE COMPARISON: 01/07/2024 TECHNIQUE: CT chest with intravenous contrast was performed with timing for the evaluation for pulmonary arteries. Multiplanar reformats were performed. MIP (maximum intensity projection) images or 3D post processing was performed. Dose reduction techniques were achieved by using automated exposure control and/or adjustment of mA and/or kV according to patient size and/or use of iterative reconstruction technique. FINDINGS: Lungs: No pneumothorax.partial right upper lobectomy. Interval development of trace bilateral pleural effusions, diffuse left greater than right groundglass attenuations and interlobular septal thickening, predominantly seen in the upper lobes and right apical consolidation, representing multifocal pneumonia including Covid pneumonia. Other differential diagnosis includes pulmonary edema and posttreatment pneumonitis. Airways: Normal. Mediastinum: No adenopathy. Aorta: No aneurysm. Cardiac: Cardiomegaly. No pericardial effusion. Pulmonary vasculature: Diagnostic opacification of pulmonary arteries without evidence of pulmonary embolus. Normal morphology. Bones: No acute bony abnormality. Axilla: No adenopathy. Thyroid gland: No abnormality demonstrated on provided imaging. Soft tissues: Unremarkable. Upper abdomen: Small hiatal hernia Additional findings: None. CT/CT angio chest IMPRESSION:No evidence of pulmonary embolus. Cardiomegaly. Interval development of trace bilateral pleural effusions, diffuse left greater than right groundglass attenuations and interlobular septal thickening, predominantly seen in the upper lobes and right apical consolidation, representing multifocal pneumonia including Covid pneumonia. Other differential diagnosis includes pulmonary edema and posttreatment pneumonitis. Small hiatal hernia. Electronically authenticated by: WINIFRED ZUNIGA Date: 04/27/2024 11:48
[2024-04-27 10:03] LABS: Magnesium 2.9 mg/dL (1.8-2.4)
--- NOTE | 2024-04-27 10:21 | PC.NURSE ---
Removed CPAP at this time per 's request. Primary nurse in and applied NC O2
--- NOTE | 2024-04-27 12:04 | PM.HP ---
HPI H&P: HPI History of Present Illness Chief complaint: CHF, PNEUMONIA Narrative: This is a 79-year-old male patient with a past medical history including history of lung CA s/p resection and chemotherapy, hypertension, hyperlipidemia, depression with anxiety, BPH, and COPD; who presented to the ED complaining of shortness of breath for several days. Today just felt like he could not catch his breath. When EMS arrived his pulse ox was <88%, given steroid and duoneb and placed on oxygen. Patient uses oxygen as needed. ER findings: Hb (9.2), and hyperglycemia (132). Chest x-ray revealed multifocal pneumonia versus pulmonary edema the patient is being admitted to the hospitalist service as an inpatient for COPD exacerbation and multifocal pneumonia along with acute on chronic heart failure. Patient was started on CPAP and recovered well and at the time he is up on medical floor is on 4L NC. At the time of my exam the patient is laying in bed. He is obviously short of breath with conversing. Opioid HPI Opioid Management Most Recent Pain and Opioid Data: Last Pain Scale 10 01/07/24 21:19 01/07/24 Last Pain Assessment 04/27/24 15:09 Last ORT Total Score 3 04/27/24 13:46 04/27/24 Last ORT Risk Category Low Risk 04/27/24 13:46 04/27/24 Review of Systems ROS Narrative ROS: a complete review of systems were reviewed with patient and are positive as below or listed in History of Chief Complaint. General: no fever, chills, night sweats Head: no headache, trauma, visual changes, nausea or vomiting Skin: no reported rashes, itching or sores Eyes: no blurriness of vision Ears: no reported hearing loss, vertigo, earache, or tinnitus Throat: no sore throat, hoarseness, swelling of neck, or tongue pain Heart: no chest pain Lungs: shortness of breath no cough GI: no diarrhea or vomiting/nausea Urinary: no urinary urgency, frequency or pain Neuro: no numbness or tingling HEM: no bleeding issues or bruising ENDO: no thyroid problems Psych: no anxiety or depression [facility] Medical History (Updated 04/27/24 @ 15:45 by Elizabeth Lopez DO) COPD (chronic obstructive pulmonary disease) ?J44.9 - Chronic obstructive pulmonary disease, unspecified (ICD-10) Malnutrition ?E46 - Unspecified protein-calorie malnutrition (ICD-10) Acute on chronic diastolic (congestive) heart failure ?I50.33 - Acute on chronic diastolic (congestive) heart failure (ICD-10) Acute respiratory failure with hypoxia ?J96.01 - Acute respiratory failure with hypoxia (ICD-10) CAD (coronary artery disease) ?I25.10 - Atherosclerotic heart disease of [place] coronary artery without angina pectoris (ICD-10) Hypertension ?I10 - Essential (primary) hypertension (ICD-10) Lung cancer ?C34.90 - Malignant neoplasm of unspecified part of unspecified bronchus or lung (ICD-10) Bilateral pneumonia ?J18.9 - Pneumonia, unspecified organism (ICD-10) Depression with anxiety ?F41.8 - Other specified anxiety disorders (ICD-10) BPH (benign prostatic hyperplasia) ?N40.0 - Benign prostatic hyperplasia without lower urinary tract symptoms (ICD-10) Past heart attack ?I25.2 - Old myocardial infarction (ICD-10) Surgical History History of appendectomy ?Z90.49 - Acquired absence of other specified parts of digestive tract (ICD-10) H/O pneumonectomy ?Z98.890 - Other specified postprocedural states (ICD-10) ?Z90.2 - Acquired absence of lung [part of] (ICD-10) Family History Father Family history of hypertension Social History Within the past year, how often did you have a drink containing alcohol: never Score interpretation: A score less than 4 is consistent with normal alcohol consumption. Smoking status: Former smoker Non-prescribed substance use: denies use Highest level of school completed/degree received: GED or equivalent Little interest or pleasure in doing things: not at all Feeling down, depressed, or hopeless: not at all Meds Home Medications and Allergies Home Medications ?Medication ?Instructions ?Recorded ?Confirmed ?Type albuterol sulfate 2.5 mg/3 mL 2.5 mg inhalation Q6H PRN 11/07/23 04/27/24 History (0.083 %) solution for nebulization shortness of breath or wheezing albuterol sulfate 90 mcg/actuation 2 puff inhalation Q4H PRN 11/07/23 04/27/24 History aerosol inhaler shortness of breath or wheezing amlodipine 2.5 mg tablet 2.5 mg PO QDAY 11/07/23 04/27/24 History aspirin 81 mg tablet,delayed 81 mg PO DAILY 11/07/23 04/27/24 History release (Adult Aspirin Regimen) atorvastatin 40 mg tablet 40 mg PO QDAY 11/07/23 04/27/24 History cholecalciferol (vitamin D3) 50 50 mcg PO DAILY 11/07/23 04/27/24 History mcg (2,000 unit) tablet (D3 DOTS) clonazepam 1 mg tablet 1 mg PO TID PRN anxiety 11/07/23 04/27/24 History docusate sodium 100 mg capsule 200 mg PO BID 11/07/23 04/27/24 History (Stool Softener) duloxetine 60 mg capsule,delayed 60 mg PO BID 11/07/23 04/27/24 History release finasteride 5 mg tablet 5 mg PO QDAY 11/07/23 04/27/24 History fluticasone fur. 100 mcg-umeclid 1 inh inhalation DAILY 11/07/23 04/27/24 History 62.5 mcg-vilant 25 mcg inhalat.powder (Trelegy Ellipta) gabapentin 300 mg capsule 600 mg PO Q8H 11/07/23 04/27/24 History hydrocodone 5 mg-acetaminophen 325 2 tab PO Q6H PRN pain 11/07/23 04/27/24 History mg tablet meloxicam 15 mg tablet 15 mg PO QDAY 11/07/23 04/27/24 History nitroglycerin 0.4 mg sublingual 0.4 mg sublingual Q5M PRN chest 11/07/23 04/27/24 History tablet pain sennosides 8.6 mg tablet (Senna 17.2 mg PO BID PRN constipation 11/07/23 04/27/24 History Laxative) tamsulosin 0.4 mg capsule 0.8 mg PO .QHS 11/07/23 04/27/24 History furosemide 20 mg tablet 20 mg PO .qod 04/27/24 04/27/24 History Allergies Allergy/AdvReac Type Severity Reaction Status Date / Time No Known Drug Allergies Allergy Verified 04/27/24 08:43 Exam Narrative Exam Narrative: General: Patient is alert, and oriented to person, place and time short of breath with conversing Skin: no visible rashes, or ulcers, pallor Head: atraumatic, acephalic Eyes: PERRLA, no nystagmus present, conjunctiva clear, no scleral icterus Ears: normal Tympanic Membrane, normal gross auditory acuity Heart: Normal rate and rhythm, no murmurs/rubs/gallops Lungs: audible wheezes, crackles and diminished breath sounds all lung hoffmann Abdomen: Normal audible bowel sounds, no distension, No palpable masses, no organomegaly, no rebound/guarding/ or rigidity Musculoskeletal: no swelling bilateral lower extremities Neuro: CN II-X grossly intact Constitutional Vital Signs, click to edit/add: Last Vital Signs Temp 99.3 F 04/27/24 08:18 Pulse 101 H 04/27/24 11:30 Resp 19 04/27/24 11:30 BP 144/72 H 04/27/24 11:30 Pulse Ox 91 L 04/27/24 11:30 O2 Del Method CPAP 04/27/24 09:16 O2 Flow Rate 40 04/27/24 09:16 Results Labs Labs: Short CBC 04/27/24 Range/Units 08:42 WBC 12.5 H (4.0-11.0) 10^3/uL Hgb 9.2 L (14.0-18.0) g/dL Hct 28.3 L (42.0-54.0) % Plt Count 190 (150-450) 10^3/uL BMP 04/27/24 08:42 Sodium 138 Potassium 3.6 Chloride 103 Carbon Dioxide 23.9 BUN 37.0 H Creatinine 1.21 Glucose 132 H Calcium 8.2 L Liver Function 04/27/24 Range/Units 08:42 Total Bilirubin 0.8 (0.2-1.0) mg/dL AST 59 H (15-37) U/L ALT 87 H (16-63) U/L Alkaline Phosphatase 136 H (46-116) U/L Albumin 2.4 L (3.4-5.0) g/dL ABG ABG results: 04/27/24 08:35 ABG pH 7.423 ABG pCO2 35.8 ABG pO2 81.6 ABG HCO3 23.3 ABG O2 Saturation 96.8 ABG Base Excess -1.1 Assessment and Plan Assessment and Plan (1) Pneumonia: Assessment and Plan: Viral cultures pending, patient hypoxic, continue oxygen therapy and CPAP as needed. multifactorial as seen on CT chest. duonebs scheduled with PRN albuterol. Will hold on steroid for now as patient appears fluid overloaded. Continue IV Levaquin 750mg iv daily. OPEP therapy Qualifiers: Pneumonia type: due to unspecified organism Laterality: bilateral Lung location: lower lobe of lung Qualified Code(s): J18.9 - Pneumonia, unspecified organism (2) Acute on chronic diastolic (congestive) heart failure: Assessment and Plan: elevated proBNP, continue lasix 40mg IV daily monitor I&Os, daily weights, fluid restriction (3) Acute respiratory failure with hypoxia: Assessment and Plan: combination of #1 and #2, CT PE protocol negative for PE, just showing the pneumonia present. (4) CAD (coronary artery disease): Assessment and Plan: continue aspirin, plavix, statin Qualifiers: Coronary Disease-Associated Artery/Lesion type: [place] artery [place] vs. transplanted heart: [place] heart Associated angina: without angina Qualified Code(s): I25.10 - Atherosclerotic heart disease of [place] coronary artery without angina pectoris (5) Hypertension: Assessment and Plan: continue amlodpine, Qualifiers: Hypertension type: primary hypertension Qualified Code(s): I10 - Essential (primary) hypertension (6) Depression with anxiety: Assessment and Plan: continue duloxetine (7) BPH (benign prostatic hyperplasia): Assessment and Plan: continue tamsulosin and finasteride Qualifiers: Lower urinary tract symptom presence: symptoms absent Qualified Code(s): N40.0 - Benign prostatic hyperplasia without lower urinary tract symptoms (8) COPD (chronic obstructive pulmonary disease): Assessment and Plan: continue home trelegy and neb treatments. Qualifiers: COPD type: unspecified COPD Qualified Code(s): J44.9 - Chronic obstructive pulmonary disease, unspecified Plan patient is a DNRCCA continue Heparin for DVT prophylaxis patient is inpatient status and is expected to cross 2 midnights for as needed hospital care.
--- OUTSIDE RECORDS SUMMARY | 2024-04-27 13:51 | XMS_ITS | CCD ---
Author Organization [facility] Care Team Providers Care Underwater Trapper Name Role Phone Prerna Grissom II Primary Care Provider [phone] Prerna Grissom II Primary Care Provider [phone] Yanira Elias Unavailable Unavailable Prerna Grissom II Primary Care Provider [phone] Ja Becker MD Unavailable [phone] Michael S3B MULTI SENSOR OPERATOR.Amber GREENE Unavailable Sol ODOM, Rhona Unavailable Prerna Grissom II Primary Care Provider Yanira Elias Unavailable Unavailable Ja Becker MD Unavailable Michael S3B MULTI SENSOR OPERATOR.Radha GREENEy Unavailable Sol ODOM, Rhona Unavailable PROVIDER, UNKNOWN Attending Unavailable PROVIDER, UNKNOWN Admitting Unavailable PRERNA GRISSOM II Primary Care Unavailable HENRI ANDERSON Attending Unavailable PRERNA GRISSOM II B Primary Care Unavailable HENRI ANDERSON Attending Unavailable HENRI ANDERSON Admitting Unavailable PRERNA GRISSOM II B Primary Care Unavailable NON STAFF Primary Care Provider UnavailNEO Lopez Emergency Provider DR NICO MOSS Consulting Unavailable SEGUN, DR GREG Delarosa Admitting Unavailable PRERNA GRISSOM Primary Care Unavailable SEGUN, DR GREG Delarosa Attending Unavailable CHARY, DR ARPIT Santos Consulting Unavailable SEGUN, DR GREG Delarosa Consulting Unavailable KATHERINE RODRIGES Consulting Unavailable JACOB OWEN Consulting Unavailable PRERNA GRISSOM Primary Care Unavailable PALLAVI HUNT Admitting Unavailable PALLAVI HUNT Attending Unavailable PALLAVI HUNT Consulting Unavailable Rodrigo RD, Janeen Unavailable [phone] DELBERT Rodriguez Attending Provider [phone] JUAN RAMON Grissom Primary Care Provider Chelsy DELATORRE MD, Daniel B Primary Care Provider [phone] Sol RN, Rhona Unavailable [phone] Alberto Chappell Admitting Unavailable Alberto Chappell Attending Unavailable NON STAFF Primary Care Unavailable Prerna Grissom Primary Care Unavailable Amber Rodriguez Admitting Unavailable Amber Rodriguez Attending Unavailable Ja Becker Admitting Unavailable Ja Becker Attending Unavailable Prerna Grissom Primary Care Unavailable Chelsy DELATORRE MD, Daniel B Primary Care Provider Kobe Hernández Unavailable [phone] STUART WRIGHT Referring Unavailable PRERNA GRISSOM B Primary Care Unavailable ADRIA CAR Referring Unavailable PRERNA GRISSOM Primary Care Unavailable LEO TOLEDO Attending Unavailable JOVANY, LEO Attending Unavailable LEO TOLEDO Admitting Unavailable LEO TOLEDO Attending Unavailable LEO TOLEDO Attending Unavailable Kobe Hernández MD Unavailable STUART WRIGHT Attending Unavailable STUART WRIGHT Referring Unavailable PRERNA GRISSOM Primary Care Unavailable Prerna Grissom MD Primary Care Provider Sunday ROLL FORMING MACHINE SET UP OPERATOR, Lindsay Unavailable Prerna Grissom MD Unavailable Prerna Grissom MD Primary Care Provider [phone] STUART WRIGHT Attending Unavailable PRERNA GRISSOM Referring Unavailable PRERNA GRISSOM B Primary Care Unavailable STUART WRIGHT Attending Unavailable PRERNA GRISSOM Referring Unavailable PRRENA GRISSOM B Primary Care Unavailable STUART WRIGHT [...] 30 days. Take 2 tablets by mo [facility] every 6 hours as needed. 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 docusate sodium 50 mg / sennosides, nursing home 8.6 mg oral tablet (1 source) take [...] 1 puff(s) by in halation once daily beumvzslpwp-lmdhkxakn-dqszvkra (TRELEGY ELLIPTA) 100-62.5-25 mcg blister with device [...] multivitamin take 1 tablet every day Active uebwwstlyvda-eepa-ydn erals-folic acid (Centrum Silver, geriatric,) tablet (8 sources) take 1 tablet by mouth in the morning capqssbhzowh-tvat-aykbur ls-folic acid (Centrum Silver, geriatric,) tablet Take [...] once daily. Take 2 tablets by mo [facility] once daily. Take 1 tablet by silvia [...] 90 days. Take 1 capsule by mo [facility] three times a day for 30 days. sennosides, nursing home 8.6 mg oral tablet (20 sources) Start: [...] Start: 10-02-2022 End: 10-02-2022 naloxone spry 1 [place] Start: 10-02-2022 naloxone 4 mg/ actuation nasal [...] coronary artery; Translations: [Atherosclerotic heart disease of [place] coronary artery without angina pectoris] Onset: 3 [...] Translations: [Immunodeficiency due to conditions classified elsewhere ([facility])] 04-09-2024 Chronic Lymphadenitis (5 sources) Lymphadenopathy; Translations: [...] 3 12-06-2022 Chronic Other aftercare (1 source) 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; 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] Onset: 3 Episodic Other aftercare (1 source) Other fdc (current) drug therapy; Translations: [OTH SNF CURRENT DRUG THERAPY] Onset: 3 Episodic Other [...] 01-10-2021 Episodic Other acquired deformities (8 sources) [place]-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 States he found a bump on his ear and thinks its skin cancer again. He would like a referral to [facility] Dermatology. He states feels just like when he had the skin cancer on his nose. He was hoping he wouldn't need to have an appt here to get the referral. Rhona Douglas, ILENE 04/18/2024 3:57 PM Signed Order [...] 04/21/2024 2:50 PM Signed Message left on [employer] asking him what dermatology office at [facility] he would like his referral sent too Ludmila Lazaro PSS Ludmila Lazaro 04/22/2024 12:34 PM Signed Patient is seeing [facility] dermatology on 04/24/24 at 1:10PM Ludmila Lazaro PSS Allergies As of Date: 04/18/2024 (No Known Allergies) Date Reviewed: 04/17/2024 Reviewed by: Skylar Gaspar MA - Fully Assessed Primary Visit Diagnosis:Skin lesion [L98.9] Order(s):CONSULT TO DERMATOLOGY [9006] Order #: [id number]: 1 FUTURE Prescriptions as of 04/22/2024 - [...] Status:Closed by LUDMILA LAZARO on 04/18/24 Normal [facility] CBC W Auto Differential pane l (Bld)on 04-17-2024 Basophils (Bld) [#/Vol] [facility] Differential cell count method Nom (Bld) Auto [facility] Eosinophils (Bld) [#/Vol] 0.21 10*3/uL [facility] Immature granulocytes (Bld) [#/Vol] [facility] Immature granulocytes/100 WBC (Bld) 0.3 % [facility] Lymphocytes (Bld) [#/Vol] 1.92 10*3/uL [facility] Monocytes (Bld) [#/Vol] 0.84 10*3/uL [facility] Monocytes/100 WBC (Bld) 11.0 % [facility] Neutrophils (Bld) [#/Vol] 4.62 10*3/uL [facility] Nucleated RBC (Bld) [#/Vol] [facility] Nucleated RBC/100 WBC (Bld) [Ratio] 0.0 % /100 WBC [facility] Platelet mean volume (Bld) [Entitic vol] 10.0 fL 9.0 - 12.7 fL [facility] Platelets (Bld) [#/Vol] 228 10*3/uL [facility] RBC (Bld) [#/Vol] 3.00 10*6/uL Low 4.20 - 6.0 0 m/uL [facility] WBC (Bld) [#/Vol] 7.63 10*3/uL [facility] Basophils (Bld) [#/Vol] 10*3/uL Normal <0.11 [facility] Comment on above: Order Comment: Speci men Type: BLOOD SPECIMENOrdering Facility: [facility] Address: [address] [place] [address] Performed By: #### 5 7021-8 ####[facility] LABCLIA [id number] [place] [address] Basophils/100 WBC (Bld) 0.3 % Normal [facility] Comment on above: Order Comment: Speci men Type: BLOOD SPECIMENOrdering Facility: [facility] Address: [address] [place] [address] Performed By: #### 5 7021-8 ####[facility] LABCLIA [id number] [place] [address] Differential cell count method Nom (Bld) Auto Normal [facility] Comment on above: Order Comment: Speci men Type: BLOOD SPECIMENOrdering Facility: [facility] Address: [address] [place] [address] Performed By: #### 5 7021-8 ####[facility] LABCLIA [id number] [place] [address] Eosinophils (Bld) [#/Vol] 0.21 10*3/uL Normal <0.46 [facility] Comment on above: Order Comment: Speci men Type: BLOOD SPECIMENOrdering Facility: [facility] Address: [address] [place] [address] Performed By: #### 5 7021-8 ####[facility] LABCLIA [id number] [place] [address] Eosinophils/100 WBC (Bld) 2.8 % Normal [facility] Comment on above: Order Comment: Speci men Type: BLOOD SPECIMENOrdering Facility: [facility] Address: [address] [place] [address] Performed By: #### 5 7021-8 ####[facility] LABCLIA [id number] [place] [address] Erythrocyte distribution width (RBC) [Ratio] 16.8 % High 11.5-15.0 [facility] Comment on above: Order Comment: Speci men Type: BLOOD SPECIMENOrdering Facility: [facility] Address: [address] [place] [address] Performed By: #### 5 7021-8 ####[facility] LABCLIA [id number] [place] [address] Hematocrit (Bld) [Volume fraction] 31.4 % Low 39.0-51.0 [facility] Comment on above: Order Comment: Speci men Type: BLOOD SPECIMENOrdering Facility: [facility] Address: [address] [place] [address] Performed By: #### 5 7021-8 ####[facility] LABCLIA [id number] [place] [address] Hemoglobin (Bld) [Mass/Vol] 10.6 g/dL Low 13.0-17.0 [facility] Comment on above: Order Comment: Speci men Type: BLOOD SPECIMENOrdering Facility: [facility] Address: [address] [place] [address] Performed By: #### 5 7021-8 ####[facility] LABCLIA [id number] [place] [address] Immature granulocytes (Bld) [#/Vol] 10*3/uL Normal <0.10 [facility] Comment on above: Order Comment: Speci men Type: BLOOD SPECIMENOrdering Facility: [facility] Address: [address] [place] [address] Performed By: #### 5 7021-8 ####[facility] LABCLIA [id number] [place] [address] Immature granulocytes/100 WBC (Bld) 0.3 % Normal [facility] Comment on above: Order Comment: Speci men Type: BLOOD SPECIMENOrdering Facility: [facility] Address: [address] [place] [address] Performed By: #### 5 7021-8 ####[facility] LABCLIA [id number] [place] [address] Lymphocytes (Bld) [#/Vol] 1.92 10*3/uL Normal 1.00-4.00 [facility] Comment on above: Order Comment: Speci men Type: BLOOD SPECIMENOrdering Facility: [facility] Address: [address] [place] [address] Performed By: #### 5 7021-8 ####[facility] LABCLIA [id number] [place] [address] Lymphocytes/100 WBC (Bld) 25.2 % Normal [facility] Comment on above: Order Comment: Speci men Type: BLOOD SPECIMENOrdering Facility: [facility] Address: [address] [place] [address] Performed By: #### 5 7021-8 ####[facility] LABCLIA [id number] [place] [address] MCH (RBC) [Entitic mass] 35.3 pg High 26.0-34.0 [facility] Comment on above: Order Comment: Speci men Type: BLOOD SPECIMENOrdering Facility: [facility] Address: [address] [place] [address] Performed By: #### 5 7021-8 ####[facility] LABIA [id number] [place] [address] MCHC (RBC) [Mass/Vol] 33.8 g/dL Normal 30.5-36.0 [facility] Comment on above: Order Comment: Speci men Type: BLOOD SPECIMENOrdering Facility: [facility] Address: [address] [place] [address] Performed By: #### 5 7021-8 ####[facility] LABIA [id number] [place] [address] MCV (RBC) [Entitic vol] 104.7 fL High 80.0-100.0 [facility] Comment on above: Order Comment: Speci men Type: BLOOD SPECIMENOrdering Facility: [facility] Address: [address] [place] [address] Performed By: #### 5 7021-8 ####[facility] LABIA [id number] [place] [address] Monocytes (Bld) [#/Vol] 0.84 10*3/uL Normal <0.87 [facility] Comment on above: Order Comment: Speci men Type: BLOOD SPECIMENOrdering Facility: [facility] Address: [address] [place] [address] Performed By: #### 5 7021-8 ####[facility] LABIA [id number] [place] [address] Monocytes/100 WBC (Bld) 11.0 % Normal [facility] Comment on above: Order Comment: Speci men Type: BLOOD SPECIMENOrdering Facility: [facility] Address: [address] [place] [address] Performed By: #### 5 7021-8 ####[facility] LABCLIA [id number] [place] [address] Neutrophils (Bld) [#/Vol] 4.62 10*3/uL Normal 1.45-7.50 [facility] Comment on above: Order Comment: Speci men Type: BLOOD SPECIMENOrdering Facility: [facility] Address: [address] [place] [address] Performed By: #### 5 7021-8 ####[facility] LABCLIA [id number] [place] [address] Neutrophils/100 WBC (Bld) 60.4 % Normal [facility] Comment on above: Order Comment: Speci men Type: BLOOD SPECIMENOrdering Facility: [facility] Address: [address] [place] [address] Performed By: #### 5 7021-8 ####[facility] LABCLIA [id number] [place] [address] Nucleated RBC (Bld) [#/Vol] 10*3/uL Normal <0.01 [facility] Comment on above: Order Comment: Speci men Type: BLOOD SPECIMENOrdering Facility: [facility] Address: [address] [place] [address] Performed By: #### 5 7021-8 ####[facility] LABIA [id number] [place] [address] Nucleated RBC/100 WBC (Bld) [Ratio] 0.0 /100 WBC Normal [facility] Comment on above: Order Comment: Speci men Type: BLOOD SPECIMENOrdering Facility: [facility] Address: [address] [place] [address] Performed By: #### 5 7021-8 ####[facility] LABIA [id number] [place] [address] Platelet mean volume (Bld) [Entitic vol] 10.0 fL Normal 9.0-12.7 [facility] Comment on above: Order Comment: Speci men Type: BLOOD SPECIMENOrdering Facility: [facility] Address: [address] [place] [address] Performed By: #### 5 7021-8 ####[facility] LABCLIA [id number] [place] [address] Platelets (Bld) [#/Vol] 228 10*3/uL Normal 150-400 [facility] Comment on above: Order Comment: Speci men Type: BLOOD SPECIMENOrdering Facility: [facility] Address: [address] [place] [address] Performed By: #### 5 7021-8 ####[facility] LABIA [id number] [place] [address] RBC (Bld) [#/Vol] 3.00 10*6/uL Low 4.20-6.00 [facility] Comment on above: Order Comment: Speci men Type: BLOOD SPECIMENOrdering Facility: [facility] Address: [address] [place] [address] Performed By: #### 5 7021-8 ####[facility] LABIA [id number] [place] [address] WBC (Bld) [#/Vol] 7.63 10*3/uL Normal 3.70-11.00 [facility] Comment on above: Order Comment: Speci men Type: BLOOD SPECIMENOrdering Facility: [facility] Address: [address] [place] [address] Performed By: #### 5 7021-8 ####[facility] LABIA [id number] [place] [address] [facility] CBC W AUTO DIFF BLDon [facility] BASOPHILS # BLD AUTO <0.03 [facility] DIFFERENTIAL METHOD BLD Auto [facility] EOSINOPHIL # BLD AUTO 0.21 [facility] LYMPHOCYTES # BLD AUTO 1.92 [facility] MONOCYTES # BLD AUTO 0.84 [facility] NEUTROPHILS # BLD AUTO 4.62 [facility] NRBC # BLD AUTO <0.01 [facility] NRBC/100 WBC BLD-RTO 0 /100 WBC [facility] PLATELET # BLD AUTO 228 [facility] PMV BLD AUTO 10 fL 9.0 - 12.7 fL [facility] WBC # BLD AUTO 7.63 [facility] IMM GRANULOCYTES # BLD AUTO <0.03 [facility] IMM GRANULOCYTES/LEUK NFR BLD AUTO 0.3 % [facility] Monocytes/100 WBC (Bld) 11 % [facility] RBC (Bld) [#/Vol] 3 10*6/uL Low 4.20 - 6.0 0 m/uL [facility] Specimen Type: BLOOD SPECIMEN [facility] Address: [address] [place] [address] Original Ordering Provider: GLENYS KURTZ CLINISYMI CNOVSPon 04-17-2024 CNOVSP Visit (SP) Office (H EMASA) -- MARANDARAGHAVENDRA LANDEROS ([id number]) 1945 M Date Time Provider Department 04/17/24 9:45 AM JA BECKER During your visit today, we recorded the following information about you: Temperature Pulse Respiration Blood pressure 97.3 degrees 67/minute 16/minute 142/72 Weight Height 71 kg 1.727 m Ja Becker MD 04/18/2024 6:13 AM Signed PATIENT NAME: Raghavendra Heard DATE: 04/17/2024 PRIMARY CARE PHYSICIAN: Dr. Prerna Grissom II OTHER PHYSICIANS: Dr. Toledo (Cardiology [facility]), Dr. Zhang, Dr. Hernández (Housekeeping Cleaner in [place]), Dr. Stinson (Thoracic Surgery in [place]), Dr. Alberts Portions of this encounter note [...] - No (more content not included)... Normal [facility] Comprehensive metabolic 2000 panelOrdered By: Niko Griffith on 04-17-2024 Albumin [Mass/Vol] 4.2 g/dL 3.9 - 4.9 g/dL [facility] ALP [Catalytic activity/Vol] 58 U/L 38 - 113 U/L [facility] ALT [Catalytic activity/Vol] 19 U/L 10 - 54 U/L [facility] Anion gap [Moles/Vol] 11 mmol/L 8 - 15 mmol/L [facility] AST [Catalytic activity/Vol] 16 U/L 14 - 40 U/L [facility] Bilirubin [Mass/Vol] 0.3 mg/dL 0.2 - 1 .3 mg/dL [facility] Calcium [Mass/Vol] 9.4 mg/dL 8.5 - 10. 2 mg/dL [facility] Chloride [Moles/Vol] 103 mmol/L 98 - 10 7 mmol/L [facility] CO2 [Moles/Vol] 27 mmol/L 22 - 30 mmol/L [facility] Creatinine [Mass/Vol] 0.96 mg/dL 0.73 - 1.22 mg/dL [facility] GFR/1.73 sq M.predicted among non-blacks MDRD (S/P/Bld) [Vol rate/Area] 81 mL/min/{1.73_m2} - PINF [facility] Comment on above: Estimated Glomerular Filtration Rate [...] 168 mg/dL High 74 - 99 mg/dL [facility] Comment on above: The [place] Diab[employer] Association (ADA) provides guidance for [...] Standards of Medical Care in Diabetes 2016, [place] [employer]. Diabetes Care. 2016.39(Suppl 1). Interpretation and review of laboratory results Abnormal [facility] Potassium [Moles/Vol] 3.7 mmol/L 3.7 - 5.1 mmol/L [facility] Protein [Mass/Vol] 7.4 g/dL 6.3 - 8.0 g/dL [facility] Sodium [Moles/Vol] 141 mmol/L 136 - 144 mmol/L [facility] Urea nitrogen [Mass/Vol] 26 mg/dL High 9 - 24 mg/dL [facility] Comprehensive metabolic 2000 panelon 04-17-2024 Albumin [Mass/Vol] 4.2 g/dL Normal 3.9-4.9 [facility] Comment on above: Order Comment: Julio gilbert Type: BLOOD SPECIMEN [facility] Address: [address] [place] [address] Performed By: #### L [id number] #### [facility] CLIA [id number] [address] [place] [address] [place] ALP [Catalytic activity/Vol] 58 U/L Normal 38-113 [facility] Comment on above: Order Comment: Julio gilbert Type: BLOOD SPECIMEN [facility] Address: [address] [place] [address] Performed By: #### L [id number] #### [facility] CLIA [id number] [address] [place] [address] [place] ALT [Catalytic activity/Vol] 19 U/L Normal 10-54 [facility] Comment on above: Order Comment: Julio gilbert Type: BLOOD SPECIMEN [facility] Address: [address] [place] [address] Performed By: #### L [id number] #### [facility] CLIA [id number] [address] [place] [address] [place] Anion gap [Moles/Vol] 11 mmol/L Normal 8-15 [facility] Comment on above: Order Comment: Speci men Type: BLOOD SPECIMEN [facility] Address: [address] [place] [address] Performed By: #### L [id number] #### [facility] CLIA [id number] [address] [place] [address] [place] AST [Catalytic activity/Vol] 16 U/L Normal 14-40 [facility] Comment on above: Order Comment: Speci men Type: BLOOD SPECIMEN [facility] Address: [address] [place] [address] Performed By: #### L [id number] #### [facility] CLIA [id number] [address] [place] [address] [place] Bilirubin [Mass/Vol] 0.3 mg/dL Normal 0.2-1.3 [facility] Comment on above: Order Comment: Speci men Type: BLOOD SPECIMEN [facility] Address: [address] [place] [address] Performed By: #### L [id number] #### [facility] CLIA [id number] [address] [place] [address] [place] Calcium [Mass/Vol] 9.4 mg/dL Normal 8.5-10.2 [facility] Comment on above: Order Comment: Speci men Type: BLOOD SPECIMEN [facility] Address: [address] [place] [address] Performed By: #### L [id number] #### [facility] CLIA [id number] [address] [place] [address] [place] Chloride [Moles/Vol] 103 mmol/L Normal 98-107 [facility] Comment on above: Order Comment: Speci men Type: BLOOD SPECIMEN [facility] Address: [address] [place] [address] Performed By: #### L [id number] #### [facility] CLIA [id number] [address] [place] [address] [place] CO2 [Moles/Vol] 27 mmol/L Normal 22-30 [facility] Comment on above: Order Comment: Speci men Type: BLOOD SPECIMEN [facility] Address: [address] [place] [address] Performed By: #### L [id number] #### [facility] CLIA [id number] [address] [place] [address] [place] Creatinine [Mass/Vol] 0.96 mg/dL Normal 0.73-1.22 [facility] Comment on above: Order Comment: Speci men Type: BLOOD SPECIMEN Ordering Facility: [facility] Address: [address] [place] [address] Performed By: #### L [id number] #### [facility] CLIA [id number] [address] [place] [address] [place] Creatinine and Glomerular filtration rate.predicted panel (S/P/Bld) 81 mL/min/1.73m??? Normal >=60 [facility] Comment on above: Order Comment: Speci men Type: BLOOD SPECIMEN Ordering Facility: [facility] Address: [address] [place] [address] Result Comment: Carol mated Glomerular Filtration Rate [...] reflect actual GFR. Performed By: #### L [id number] #### [facility] CLIA [id number] [address] [place] [address] [place] Glucose [Mass/Vol] 168 mg/dL High 74-99 [facility] Comment on above: Order Comment: Specvirgil gilbert Type: BLOOD SPECIMEN Ordering Facility: [facility] Address: [address] [place] [address] Result Comment: The [place] [employer] (ADA) provides guidance for cutoff [...] Standards of Medical Care in Diabetes 2016, [place] [employer]. Diabetes Care. 2016.39(Suppl 1). Performed By: #### L [id number] #### [facility] CLIA [id number] [address] [place] [address] [place] Potassium [Moles/Vol] 3.7 mmol/L Normal 3.7-5.1 [facility] Comment on above: Order Comment: Julio gilbert Type: BLOOD SPECIMEN Ordering Facility: [facility] Address: [address] [place] [address] Performed By: #### L [id number] #### [facility] CLIA [id number] [address] [place] [address] [place] Protein [Mass/Vol] 7.4 g/dL Normal 6.3-8.0 [facility] Comment on above: Order Comment: Julio gilbert Type: BLOOD SPECIMEN Ordering Facility: [facility] Address: [address] [place] [address] Performed By: #### L [id number] #### [facility] CLIA [id number] [address] [place] [address] [place] Sodium [Moles/Vol] 141 mmol/L Normal 136-144 [facility] Comment on above: Order Comment: Speci men Type: BLOOD SPECIMEN Ordering Facility: [facility] Address: [address] [place] [address] Performed By: #### L [id number] #### [facility] CLIA [id number] [address] [place] [address] [place] Urea nitrogen [Mass/Vol] 26 mg/dL High 9-24 [facility] Comment on above: Order Comment: Speci men Type: BLOOD SPECIMEN Ordering Facility: [facility] Address: [address] [place] [address] Performed By: #### L [id number] #### [facility] CLIA [id number] [address] [place] [address] [place] Ferritin SerPl-mCncon 2023 Ferritin [Mass/Vol] 66.8 ng/mL Normal 30.3-565.7 [facility] Comment on above: Order Comment: Speci men Type: BLOOD SPECIMENOrdering Facility: [facility] Address: [address] [place] [address] Performed By: #### 5 0190-8, 2276-4, 2885-2 ####[facility] [id number] [place] [address] [place] IMMUNOFIXATION SCREEN, SERUM on 04-17-2024 INTERPRETATION (MPA) Atypical restricted bands are present in the IgG and lambda regions. Consistent with IgG lambda monoclonal gammopathy. Normal [facility] Comment on above: Order Comment: Speci men Type: BLOOD SPECIMENOrdering Facility: [facility] Address: [address] [place] [address] Performed By: #### I FES ####[facility] [id number] [place] [address] [place] MPA RESULT M protein is present. Abnormal No M protein is identified. [facility] Comment on above: Order Comment: Speci men Type: BLOOD SPECIMENOrdering Facility: [facility] Address: [address] [place] [address] Performed By: #### I FES ####[facility] [id number] [address] OF [facility] STAFF REVIEW (MPA) Reviewed by Carolina mora M.D. Normal [facility] Comment on above: Order Comment: Speci men Type: BLOOD SPECIMENOrdering Facility: [facility] Address: [address] [place] [address] Performed By: #### I [facility] ####[facility] [id number] [place] [address] [place] IMMUNOGLOBULINS,IGG,IGA,IGMo n 04-17-2024 IgA [Mass/Vol] 45 mg/dL Low 70-400 [facility] Comment on above: Order Comment: Speci men Type: BLOOD SPECIMENOrdering Facility: [facility] Address: [address] [place] [address] Performed By: #### S ERIMM ####[facility] [id number] [place] [address] [place] IgG [Mass/Vol] 1722 mg/dL High 700-1600 [facility] Comment on above: Order Comment: Speci men Type: BLOOD SPECIMENOrdering Facility: [facility] Address: [address] [place] [address] Performed By: #### S ERIMM ####[facility] [id number] [place] [address] [place] IgM [Mass/Vol] 19 mg/dL Low 40-230 [facility] Comment on above: Order Comment: Speci men Type: BLOOD SPECIMENOrdering Facility: [facility] Address: [address] [place] [address] Performed By: #### S ERIMM ####[facility] [id number] [place] [address] [place] Iron and Iron binding capaci ty panelon 04-17-2024 Iron [Mass/Vol] 53 ug/dL Normal 41-186 [facility] Comment on above: Order Comment: Speci men Type: BLOOD SPECIMENOrdering Facility: [facility] Address: [address] [place] [address] Performed By: #### 5 0190-8, 2276-4, 2885-2 ####[facility] [id number] [address] [place] Iron binding capacity [Mass/Vol] 314 ug/dL Normal 232-386 [facility] Comment on above: Order Comment: Speci men Type: BLOOD SPECIMENOrdering Facility: [facility] Address: [address] [place] [address] Performed By: #### 5 0190-8, 2276-4, 2885-2 ####[facility] [id number] [address] [place] Iron/TIBC [Molar ratio] 16.9 % Normal 15.0-57.0 [facility] Comment on above: Order Comment: Speci men Type: BLOOD SPECIMENOrdering Facility: [facility] Address: [address] [place] [address] Performed By: #### 5 0190-8, 2276-4, 2885-2 ####[facility] [id number] [place] [address] [place] KAPPA/LOMBARDI,FREE,SERon 2023 Immunoglobulin light chains.kappa.free (S) [Mass/Vol] 15.5 mg/L Normal 3.3-19.4 [facility] Comment on above: Order Comment: Speci men Type: BLOOD SPECIMENOrdering Facility: [facility] Address: [address] [place] [address] Result Comment: Rare ly, increased serum free light chains levels may not be detected or accurately quantified due to prozone phenomenon or in high viscosity samples using this immunoturbidimetric assay. Correlation with other laboratory results and clinical findings is recommended. The [place] Free Light Chain was performed using the Binding Site Optilite immunoturbidimetric method. Result obtained with different assay methods or kits cannot be used interchangeably. Performed By: #### K LFRS ####[facility] [id number] [address] [place] Immunoglobulin light chains.kappa/Immunoglo bulin light chains.lambda (S) [Mass ratio] 0.51 Normal 0.26-1.65 [facility] Comment on above: Order Comment: Speci men Type: BLOOD SPECIMENOrdering Facility: [facility] Address: [address] [place] [address] Performed By: #### K LFRS ####[facility] [id number] [address] [place] Immunoglobulin light chains.lambda.free [Mass/Vol] 30.3 mg/L High 5.7-26.3 [facility] Comment on above: Order Comment: Speci men Type: BLOOD SPECIMENOrdering Facility: [facility] Address: [address] [place] [address] Result Comment: Rare ly, increased serum free [...] used interchangeably. Performed By: #### K LFRS ####[facility] [id number] [address] [place] Laboratory - Hematology and Cell countson 04-17-2024 Basophils/100 WBC (Bld) 0.3 % [facility] Eosinophils/100 WBC (Bld) 2.8 % [facility] Erythrocyte distribution width (RBC) [Ratio] 16.8 % High 11.5 - 15.0 % [facility] Hematocrit (Bld) [Volume fraction] 31.4 % Low 39.0 - 51.0 % [facility] Hemoglobin (Bld) [Mass/Vol] 10.6 g/dL Low 13.0 - 17.0 g/dL [facility] Lymphocytes/100 WBC (Bld) 25.2 % [facility] MCH (RBC) [Entitic mass] 35.3 pg High 26.0 - 34.0 pg [facility] MCHC (RBC) [Mass/Vol] 33.8 g/dL 30.5 - 36.0 g/dL [facility] MCV (RBC) [Entitic vol] 104.7 fL High 80.0 - 100.0 fL [facility] Neutrophils/100 WBC (Bld) 60.4 % [facility] No Panel Informationon 04-17 Interpretation and review of laboratory results Abnormal [facility] PROTEIN ELECTROPHORESIS SERU M (P)on 04-17-2024 Albumin [Mass/Vol] 4.20 g/dL Normal 3.43-5.41 [facility] Comment on above: Order Comment: Speci men Type: BLOOD SPECIMENOrdering Facility: [facility] Address: [address] [place] [address] Performed By: #### L [id number] ####[facility] [id number] [place] [address] [place] Alpha 1 globulin Elph [Mass/Vol] 0.30 g/dL Normal 0.18-0.43 [facility] Comment on above: Order Comment: Speci men Type: BLOOD SPECIMENOrdering Facility: [facility] Address: [address] [place] [address] Performed By: #### L [id number] ####[facility] [id number] [place] [address] [place] Alpha 2 globulin Elph [Mass/Vol] 0.78 g/dL Normal 0.42-0.98 [facility] Comment on above: Order Comment: Speci men Type: BLOOD SPECIMENOrdering Facility: [facility] Address: [address] [place] [address] Performed By: #### L [id number] ####[facility] [id number] [address] [address] [place] Beta globulin Elph [Mass/Vol] 0.58 g/dL Low 0.61-1.17 [facility] Comment on above: Order Comment: Speci men Type: BLOOD SPECIMENOrdering Facility: [facility] Address: [address] [place] [address] Performed By: #### L [id number] ####[facility] [id number] [place] [address] [place] Gamma globulin Elph [Mass/Vol] 1.63 g/dL High 0.53-1.51 [facility] Comment on above: Order Comment: Speci men Type: BLOOD SPECIMENOrdering Facility: [facility] Address: [address] [place] [address] Performed By: #### L [id number] ####[facility] [id number] [place] [address] [place] INTERPRETATION COMMENT FOR PROTEIN ELECTROPHORESIS See separate immunofixation report for characterization of monoclonal gammopathy. Normal [facility] Comment on above: Order Comment: Speci men Type: BLOOD SPECIMENOrdering Facility: [facility] Address: [address] [place] [address] Performed By: #### L [id number] ####[facility] [id number] [place] [address] [place] M-PROTEIN LOCATION Gamma Fraction 1 Normal [facility] Comment on above: Order Comment: Speci men Type: BLOOD SPECIMENOrdering Facility: [facility] Address: [address] [place], [place] [address] Performed By: #### L [id number] ####[facility] [id number] [place] [id number] [place] Protein Fractions [Interp] An M protein is identified on protein electrophoresis. Abnormal No definitive M protein is identified on protein electrophor esis. [facility] Comment on above: Order Comment: Speci men Type: BLOOD SPECIMENOrdering Facility: [facility] Address: [address] [place] [address] Performed By: #### L [id number] ####[facility] [id number] [place] [address] [place] Protein.monoclonal Elph [Mass/Vol] 1.39 g/dL High <=0.00 [facility] Comment on above: Order Comment: Speci men Type: BLOOD SPECIMENOrdering Facility: [facility] Address: [address] [place] [address] Performed By: #### L [id number] ####[facility] [id number] [place] [address] [place] SPE STAFF REVIEW Reviewed by Carolina mora M.D. Normal [facility] Comment on above: Order Comment: Speci men Type: BLOOD SPECIMENOrdering Facility: [facility] Address: [address] [place] [address] Performed By: #### L [id number] ####[facility] [id number] [place] [address] [place] Prot SerPl-mCncon 04-17-2024 Protein [Mass/Vol] 7.5 g/dL Normal 6.3-8.0 [facility] Comment on above: Order Comment: Speci men Type: BLOOD SPECIMENOrdering Facility: [facility] Address: [address] [place] [address] Performed By: #### 5 0190-8, 2276-4, 2885-2 ####[facility] [id number] [address] [place] CNPAnnamaria 04-15-2024 CNPN Telephone (HEMTSA) -- RAGHAVENDRA HEARD ([id number]) 1945 M Date Time Provider Department 04/15/24 RHONA RUIZ During your visit today, we recorded the following information about you: Rhona Ruiz RN 04/15/2024 8:51 AM Signed ----- Message from Rita Galvez RN sent at 04/15/2024 8:27 AM EDT ----- ----- Message ----- From: Glenys Kurtz PA-C Sent: 04/14/2024 7:58 AM EDT To: [facility] Triage Pool Please call with stable CT chest Rhona Ruiz RN 04/15/2024 8:51 AM Signed Pt notified and verbalizes understanding. Rhona Ruiz RN Allergies As of Date: 04/15/2024 (No Known Allergies) Date Reviewed: 03/25/2024 Reviewed by: Amber Rodriguez APRN.SOUND CONTROLLER - Fully Assessed Reason for Visit: Care Coordination [8318] Cmt: CT Results Prescriptions as of 04/15/2024 [...] Status:Closed by RHONA RUIZ on 04/15/24 Normal [facility] CT CHEST WO IVCONon 04-10-20 CT CHEST WO IVCON * * *Final Report* * * DATE OF EXAM: Apr 10 2024 9:07AM [facility] 0541 - CT CHEST WO IVCON / [...] abdomen: Visualized upper abdomen is grossly unremarkable. Computer Repair Technician (topogram) images: Unremarkable. IMPRESSION: Unchanged 5 mm [...] any questions regarding this interpretation, please call [phone]. If you are unable to reach us at the number above, please feel free to contact [facility] eRadiology at [phone]. [id number] Normal [facility] CT Chest WO contraston 04-10 IMPRESSION: Unchanged [...] any questions regarding this interpretation, please call [phone]. If you are unable to reach us at the number above, please feel free to contact [facility] eRadiology at [phone]. DIVISION OF RADIOLOGY * * *Final Report* * * DATE OF EXAM: Apr 10 2024 9:07AM [facility] 0541 - CT CHEST WO IVCON / [...] abdomen: Visualized upper abdomen is grossly unremarkable. Computer Repair Technician (topogram) images: Unremarkable. DIVISION OF RADIOLOGY Provider, [facility] - 04/10/2024 * * *Final Report* * * DATE OF EXAM: Apr 10 2024 9:07AM [facility] 0541 - CT CHEST WO IVCON / [...] abdomen: Visualized upper abdomen is grossly unremarkable. Computer Repair Technician (topogram) images: Unremarkable. IMPRESSION IMPRESSION: Unchanged 5 [...] any questions regarding this interpretation, please call [phone]. If you are unable to reach us at the number above, please feel free to contact [facility] eRadiology at [phone]. [facility] Radiology Study observation (narrative) [facility] CT Chest WO contrastOrdered By: Ccf Provider on 04-10-2024 [facility] 03-25-2024 CNPN Telephone (PAMAVN) -- RAGHAVENDRA HEARD ([id number]) 1945 M Date Time Provider Department 03/25/24 LEXUS ALBERTS During your visit today, we recorded the following information about you: Bhargavi Bradley 03/25/2024 11:57 AM Signed Raghavendra is calling Lexus Alberts DO today to request Orders for TENS unit to be sent to [facility] on file. Patient states discussed at office visit yesterday. The one patient stated he has is from 2008 and does not work. Patient states they have 2 in stock and he would like the one that costs $55. Please advise. Patient has been identified by name and birthdate. Duration of symptoms: N/A Person calling: self Call patient at: on cell [phone] (home) [phone] (cell) Was an appointment scheduled: Yanira España [...] PM Signed Prescription printed please fax to [facility] as requested. 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 Normal [facility] MR PROSTATE W WO CONTon 09-2 MR [...] Stuart Ramos MD on 03/24/2024 9:15 AM [facility] 03-14-2024 [facility] Telephone (HEMASA) -- RAGHAVENDRA HEARD ([id number]) 1945 M Date Time Provider Department 03/14/24 [...] tab: Yes Patient has re-applied for the [facility]'s Cancer Care Fund. Sugar from the [facility] asked this SW to complete the Physician [...] Encounter Status:Closed by YANIRA PLASENCIA on 03/14/24 [facility] 02-15-2024 CNPN Telephone (HEMASA) -- RAGHAVENDRA HEARD ([id number]) 1945 M Date Time Provider Department 02/15/24 RHONA RUIZ During your visit today, we recorded the following information about you: Rhona Ruiz RN 02/15/2024 11:52 AM Signed Pt called requesting refills of his Valium and Quitaque. Confirmed w/ [facility] that the pt's current Valium script has refills remaining. Pt notified. Also notified pt that his request for Quitaque is too soon. Last RX was written on 01/21/24 for a 30 day supply. Pt verbalizes understanding and will call back next week. Rhona Ruiz RN Allergies As of Date: 02/15/2024 (No Known Allergies) Date Reviewed: 2024 Reviewed by: Glenys Kurtz PA-C - Fully Assessed Reason for Visit: Care Coordination [7659] Cmt: Medication Requests Prescriptions as of 02/15/2024 [...] Status:Closed by RHONA RUIZ on 02/15/24 Normal [facility] Office Visiton 01-30-2024 Follow-up visit [id number] Raghavendra Heard 1945 M Date Provider Department Center 01/30/2024 [facility] Family History Problem Relation Age of Onset Diabetes Other Other Other Family Status - Relation Status Age at Other Level of Service:03852 [place] OFFICE/OUTPATIENT ESTABLISHED LOW MDM 20 MIN Normal [facility] Basic metabolic panel (Bld)O rdered By: Virginie Gonzalez on 2024 Anion gap (Bld) [Moles/Vol] 8 mmol/L 0 - 15 mmol/L [facility] Calcium.ionized (Bld) [Moles/Vol] 1.18 mmol/L 1.12 - 1.32 mmol/L [facility] Comment on above: Please note: This va lue represents ionized calcium not total calcium. Chloride [Moles/Vol] 104 mmol/L 98 - 10 9 mmol/L [facility] CO2 [Moles/Vol] 27 mmol/L 24 - 29 mmol/L [facility] Creatinine [Mass/Vol] 1.00 mg/dL 0.60 - 1.30 mg/dL [facility] GFR/1.73 sq M.predicted among non-blacks MDRD (S/P/Bld) [Vol rate/Area] 78 mL/min/{1.73_m2} - PINF [facility] Comment on above: Estimated Glomerular Filtration Rate [...] [Mass/Vol] 100 mg/dL 70 - 105 mg/dL [facility] Interpretation and review of laboratory results Normal [facility] Potassium [Moles/Vol] 4.1 mmol/L 3.5 - 4.9 mmol/L [facility] Sodium [Moles/Vol] 139 mmol/L 138 - 146 mmol/L [facility] Urea nitrogen [Mass/Vol] 21 mg/dL 8 - 26 mg/dL [facility] Basic metabolic panel (Bld)o n 2024 Anion gap (Bld) [Moles/Vol] 8 mmol/L Normal 0-15 [facility] Comment on above: Order Comment: Julio gilbert Type: BLOOD SPECIMEN [facility] Address: [address] [place] [address] Performed By: #### L [id number] #### [facility] CLIA [id number] [address] [place] [address] [place] Calcium.ionized (Bld) [Moles/Vol] 1.18 mmol/L Normal 1.12-1.32 [facility] Comment on above: Order Comment: Julio gilbert Type: BLOOD SPECIMEN [facility] Address: [address] [place] [address] Result Comment: Plea se note: This value represents ionized calcium not total calcium. Performed By: #### L [id number] #### [facility] CLIA [id number] [address] [place] [address] [place] Chloride [Moles/Vol] 104 mmol/L Normal 98-109 [facility] Comment on above: Order Comment: Julio gilbert Type: BLOOD SPECIMEN [facility] Address: [address] [place] [address] Performed By: #### L [id number] #### [facility] CLIA [id number] [address] [place] [address] [place] CO2 [Moles/Vol] 27 mmol/L Normal 24-29 [facility] Comment on above: Order Comment: Speci men Type: BLOOD SPECIMEN [facility] Address: [address] [place] [address] Performed By: #### L [id number] #### [facility] CLIA [id number] [address] [place] [address] [place] Creatinine [Mass/Vol] 1.00 mg/dL Normal 0.60-1.30 [facility] Comment on above: Order Comment: Speci men Type: BLOOD SPECIMEN [facility] Address: [address] [place] [address] Performed By: #### L [id number] #### [facility] CLIA [id number] [address] [place] [address] [place] GFR/1.73 sq M.predicted among non-blacks MDRD (S/P/Bld) [Vol rate/Area] 78 mL/min/1.73m??? Normal >=60 [facility] Comment on above: Order Comment: Speci men Type: BLOOD SPECIMEN [facility] Address: [address] [place] [address] Result Comment: Carol mated Glomerular Filtration Rate [...] reflect actual GFR. Performed By: #### L [id number] #### [facility] CLIA [id number] [id number] [address] [place] Glucose [Mass/Vol] 100 mg/dL Normal 70-105 [facility] Comment on above: Order Comment: Speci men Type: BLOOD SPECIMEN [facility] Address: [address] [place] [address] Performed By: #### L [id number] #### [facility] CLIA [id number] [address] [place] [address] [place] Potassium [Moles/Vol] 4.1 mmol/L Normal 3.5-4.9 [facility] Comment on above: Order Comment: Speci men Type: BLOOD SPECIMEN Ordering Facility: [facility] Address: [address] [place] [address] Performed By: #### L [id number] #### [facility] CLIA [id number] [address] [place] [address] [place] Sodium [Moles/Vol] 139 mmol/L Normal 138-146 [facility] Comment on above: Order Comment: Speci men Type: BLOOD SPECIMEN Ordering Facility: [facility] Address: [address] [place] [address] Performed By: #### L [id number] #### [facility] CLIA [id number] [address] [place] [address] [place] Urea nitrogen [Mass/Vol] 21 mg/dL Normal 8-26 [facility] Comment on above: Order Comment: Speci men Type: BLOOD SPECIMEN Ordering Facility: [facility] Address: [address] [place] [address] Performed By: #### L [id number] #### [facility] CLIA [id number] [address] [place] [address] [place] CBC W Auto Differential pane l (Bld)on 2024 Basophils (Bld) [#/Vol] 0.05 10*3/uL NINF [facility] Basophils/100 WBC (Bld) 1.1 % [facility] Differential cell count method Nom (Bld) Auto [facility] Eosinophils (Bld) [#/Vol] 0.21 10*3/uL [facility] Eosinophils/100 WBC (Bld) 4.4 % [facility] Erythrocyte distribution width (RBC) [Ratio] 15.0 % 11.5 - 15.0 % [facility] Hematocrit (Bld) [Volume fraction] 30.4 % Low 39.0 - 51.0 % [facility] Hemoglobin (Bld) [Mass/Vol] 10.0 g/dL Low 13.0 - 17.0 g/dL [facility] Immature granulocytes (Bld) [#/Vol] [facility] Immature granulocytes/100 WBC (Bld) 0.2 % [facility] Interpretation and review of laboratory results Abnormal [facility] Lymphocytes (Bld) [#/Vol] 1.65 10*3/uL [facility] Lymphocytes/100 WBC (Bld) 34.7 % [facility] MCH (RBC) [Entitic mass] 35.0 pg High 26.0 - 34.0 pg [facility] MCHC (RBC) [Mass/Vol] 32.9 g/dL 30.5 - 36.0 g/dL [facility] MCV (RBC) [Entitic vol] 106.3 fL High 80.0 - 100.0 fL [facility] Monocytes (Bld) [#/Vol] 0.53 10*3/uL [facility] Monocytes/100 WBC (Bld) 11.1 % [facility] Neutrophils (Bld) [#/Vol] 2.31 10*3/uL [facility] Neutrophils/100 WBC (Bld) 48.5 % [facility] Nucleated RBC (Bld) [#/Vol] [facility] Nucleated RBC/100 WBC (Bld) [Ratio] 0.0 % /100 WBC [facility] Platelet mean volume (Bld) [Entitic vol] 9.8 fL 9.0 - 12.7 fL [facility] Platelets (Bld) [#/Vol] 207 10*3/uL [facility] RBC (Bld) [#/Vol] 2.86 10*6/uL Low 4.20 - 6.0 0 m/uL [facility] WBC (Bld) [#/Vol] 4.76 10*3/uL [facility] Basophils (Bld) [#/Vol] 0.05 10*3/uL Normal <0.11 [facility] Comment on above: Order Comment: Speci men Type: BLOOD SPECIMEN Ordering Facility: [facility] Address: [address] [place] [address] Performed By: #### 5 7021-8 #### [facility] CLIA [id number] [address] [place] [address] 24154 Basophils/100 WBC (Bld) 1.1 % Normal [facility] Comment on above: Order Comment: Speci men Type: BLOOD SPECIMEN Ordering Facility: [facility] Address: [address] [place] [address] Performed By: #### 5 7021-8 #### [facility] CLIA [id number] [address] [place] [address] 28442 Differential cell count method Nom (Bld) Auto Normal [facility] Comment on above: Order Comment: Speci men Type: BLOOD SPECIMEN Ordering Facility: [facility] Address: [address] [place] [address] Performed By: #### 5 7021-8 #### [facility] CLIA [id number] [address] [place] [address]885 Eosinophils (Bld) [#/Vol] 0.21 10*3/uL Normal <0.46 [facility] Comment on above: Order Comment: Speci men Type: BLOOD SPECIMEN Ordering Facility: [facility] Address: [address] [place] [address] Performed By: #### 5 7021-8 #### [facility] CLIA [id number] [address] [place] [address] 79532 Eosinophils/100 WBC (Bld) 4.4 % Normal [facility] Comment on above: Order Comment: Speci men Type: BLOOD SPECIMEN Ordering Facility: [facility] Address: [address] [place] [address] Performed By: #### 5 7021-8 #### [facility] CLIA [id number] [address] [place] [address] 92995 Erythrocyte distribution width (RBC) [Ratio] 15.0 % Normal 11.5-15.0 [facility] Comment on above: Order Comment: Speci men Type: BLOOD SPECIMEN Ordering Facility: [facility] Address: [address] [place] [address] Performed By: #### 5 7021-8 #### [facility] CLIA [id number] [address] [place] [address] 25397 Hematocrit (Bld) [Volume fraction] 30.4 % Low 39.0-51.0 [facility] Comment on above: Order Comment: Speci men Type: BLOOD SPECIMEN Ordering Facility: [facility] Address: [address] [place] [address] Performed By: #### 5 7021-8 #### [facility] CLIA [id number] [address] [place] [address] 64542 Hemoglobin (Bld) [Mass/Vol] 10.0 g/dL Low 13.0-17.0 [facility] Comment on above: Order Comment: Speci men Type: BLOOD SPECIMEN Ordering Facility: [facility] Address: [address] [place] [address] Performed By: #### 5 7021-8 #### [facility] CLIA [id number] [address] [place] [address]175 Immature granulocytes (Bld) [#/Vol] 10*3/uL Normal <0.10 [facility] Comment on above: Order Comment: Speci men Type: BLOOD SPECIMEN Ordering Facility: [facility] Address: [address] [place] [address] Performed By: #### 5 7021-8 #### [facility] CLIA [id number] [address] [place] [address] 51274 Immature granulocytes/100 WBC (Bld) 0.2 % Normal [facility] Comment on above: Order Comment: Speci men Type: BLOOD SPECIMEN Ordering Facility: [facility] Address: [address] [place] [address] Performed By: #### 5 7021-8 #### [facility] CLIA [id number] [address] [place] [address] 77639 Lymphocytes (Bld) [#/Vol] 1.65 10*3/uL Normal 1.00-4.00 [facility] Comment on above: Order Comment: Speci men Type: BLOOD SPECIMEN Ordering Facility: [facility] Address: [address] [place] [address] Performed By: #### 5 7021-8 #### [facility] CLIA [id number] [address] [place] [address] 83012 Lymphocytes/100 WBC (Bld) 34.7 % Normal [facility] Comment on above: Order Comment: Speci men Type: BLOOD SPECIMEN Ordering Facility: [facility] Address: [address] [place] [address] Performed By: #### 5 7021-8 #### [facility] CLIA [id number] [address] [place] [address] 98619 MCH (RBC) [Entitic mass] 35.0 pg High 26.0-34.0 [facility] Comment on above: Order Comment: Speci men Type: BLOOD SPECIMEN Ordering Facility: [facility] Address: [address] [place] [address] Performed By: #### 5 7021-8 #### [facility] CLIA [id number] [address] [place] [address] 63223 MCHC (RBC) [Mass/Vol] 32.9 g/dL Normal 30.5-36.0 [facility] Comment on above: Order Comment: Speci men Type: BLOOD SPECIMEN Ordering Facility: [facility] Address: [address] [place] [address] Performed By: #### 5 7021-8 #### [facility] CLIA [id number] [address] [place] [address] 50579 MCV (RBC) [Entitic vol] 106.3 fL High 80.0-100.0 [facility] Comment on above: Order Comment: Speci men Type: BLOOD SPECIMEN Ordering Facility: [facility] Address: [address] [place] [address] Performed By: #### 5 7021-8 #### [facility] CLIA [id number] [address] [place] [address] 20463 Monocytes (Bld) [#/Vol] 0.53 10*3/uL Normal <0.87 [facility] Comment on above: Order Comment: Speci men Type: BLOOD SPECIMEN Ordering Facility: [facility] Address: [address] [place] [address] Performed By: #### 5 7021-8 #### [facility] CLIA [id number] [address] [place] [address] 07443 Monocytes/100 WBC (Bld) 11.1 % Normal [facility] Comment on above: Order Comment: Speci men Type: BLOOD SPECIMEN Ordering Facility: [facility] Address: [address] [place] [address] Performed By: #### 5 7021-8 #### [facility] CLIA [id number] [address] [place] [address] 58427 Neutrophils (Bld) [#/Vol] 2.31 10*3/uL Normal 1.45-7.50 [facility] Comment on above: Order Comment: Speci men Type: BLOOD SPECIMEN Ordering Facility: [facility] Address: [address] [place] [address] Performed By: #### 5 7021-8 #### [facility] CLIA [id number] [address] [place] [address] 83019 Neutrophils/100 WBC (Bld) 48.5 % Normal [facility] Comment on above: Order Comment: Speci men Type: BLOOD SPECIMEN Order[facility] Facility: [facility] Address: [facility] [place] [address] Performed By: #### 5 7021-8 #### [facility] CLIA [id number] [address] [place] [address] 78803 Nucleated RBC (Bld) [#/Vol] 10*3/uL Normal <0.01 [facility] Comment on above: Order Comment: Speci men Type: BLOOD SPECIMEN Ordering Facility: [facility] Address: [address] [place] [address] Performed By: #### 5 7021-8 #### [facility] CLIA [id number] [address] [place] [address] 21144 Nucleated RBC/100 WBC (Bld) [Ratio] 0.0 /100 WBC Normal [facility] Comment on above: Order Comment: Speci men Type: BLOOD SPECIMEN Ordering Facility: [facility] Address: [address] [place] [address] Performed By: #### 5 7021-8 #### [facility] CLIA [id number] [address] [place] [address] 20594 Platelet mean volume (Bld) [Entitic vol] 9.8 fL Normal 9.0-12.7 [facility] Comment on above: Order Comment: Speci men Type: BLOOD SPECIMEN Ordering Facility: [facility] Address: [address] [place] [address] Performed By: #### 5 7021-8 #### [facility] CLIA [id number] [address] [place] [address] 67308 Platelets (Bld) [#/Vol] 207 10*3/uL Normal 150-400 [facility] Comment on above: Order Comment: Speci men Type: BLOOD SPECIMEN Order[facility] Facility: [facility] Address: [address] [place] [address] Performed By: #### 5 7021-8 #### [facility] CLIA [id number] [address] [place] [address] 31196 RBC (Bld) [#/Vol] 2.86 10*6/uL Low 4.20-6.00 [facility] Comment on above: Order Comment: Speci men Type: BLOOD SPECIMEN Order[facility]: [facility] Address: [address] [place] [address] Performed By: #### 5 7021-8 #### [facility] CLIA [id number] [address] [place] [address] WBC (Bld) [#/Vol] 4.76 10*3/uL Normal 3.70-11.00 [facility] Comment on above: Order Comment: Speci men Type: BLOOD SPECIMEN [facility] Address: [facility] [place] [address] Performed By: #### 5 7021-8 #### [facility] CLIA [id number] [address] [place] [address] CNOVSPon 2024 CNOVSP Visit (SP) Office ([facility]) -- RAGHAVENDRA HEARD ([id number]) 1945 M Date Time Provider Department 01/17/24 10:00 AM GLENYS KURTZ During your visit today, we recorded the following information about you: Temperature Pulse Respiration Blood pressure 97.1 degrees 64/minute 18/minute 124/73 Weight 69.2 kg Glenys Kurtz PA-C 2024 10:54 AM Signed PATIENT NAME: Raghavendra Heard DATE: 2024 PRIMARY CARE PHYSICIAN: Dr. Prerna Grissom II OTHER PHYSICIANS: Dr. Toledo (Cardiology [facility]), Dr. Zhang, Dr. Hernández (Housekeeping Cleaner in [place]), Dr. Stinson (Thoracic Surgery in [place]), Dr. Alberts (Elements copied from Dr. Becker's [...] hospitalized for 5 days, November 06-2023 at [place]. Then he got a URI and saw [...] Sequence: ([id number] (more content not included)... Normal [facility] metabolic 2000 panelOrdered By: Virginie Gonzalez on 2024 Albumin [Mass/Vol] 4.0 g/dL 3.9 - 4.9 g/dL [facility] ALP [Catalytic activity/Vol] 66 U/L 38 - 113 U/L [facility] ALT [Catalytic activity/Vol] 14 U/L 10 - 54 U/L [facility] Anion gap [Moles/Vol] 3 mmol/L Low 8 - 15 mmol/L [facility] AST [Catalytic activity/Vol] 18 U/L 14 - 40 U/L [facility] Bilirubin [Mass/Vol] 0.2 mg/dL 0.2 - 1 .3 mg/dL [facility] Calcium [Mass/Vol] 9.4 mg/dL 8.5 - 10. 2 mg/dL [facility] Chloride [Moles/Vol] 104 mmol/L 98 - 10 7 mmol/L [facility] CO2 [Moles/Vol] 28 mmol/L 22 - 30 mmol/L [facility] Creatinine [Mass/Vol] 0.95 mg/dL 0.73 - 1.22 mg/dL [facility] GFR/1.73 sq M.predicted among non-blacks MDRD (S/P/Bld) [Vol rate/Area] 83 mL/min/{1.73_m2} - PINF [facility] Comment on above: Estimated Glomerular Filtration Rate [...] 113 mg/dL High 74 - 99 mg/dL [facility] Comment on above: The [place] Di[employer] Association (ADA) provides guidance for [...] Standards of Medical Care in Diabetes 2016, [place] [employer]. Diabetes Care. 2016.39(Suppl 1). Interpretation and review of laboratory results Abnormal [facility] Potassium [Moles/Vol] 4.2 mmol/L 3.7 - 5.1 mmol/L [facility] Protein [Mass/Vol] 7.3 g/dL 6.3 - 8.0 g/dL [facility] Sodium [Moles/Vol] 135 mmol/L Low 136 - 144 mmol/L [facility] Urea nitrogen [Mass/Vol] 23 mg/dL 9 - 24 mg/dL [facility] metabolic 2000 panelon 2024 Albumin [Mass/Vol] 4.0 g/dL Normal 3.9-4.9 [facility] Comment on above: Order Comment: Speci men Type: BLOOD SPECIMENOrdering Facility: [facility] Address: [address] [place] [address] Performed By: #### 2 4323-8 ####[facility] [id number] [place] [address] ALP [Catalytic activity/Vol] 66 U/L Normal 38-113 [facility] Comment on above: Order Comment: Speci men Type: BLOOD SPECIMENOrdering Facility: [facility] Address: [address] [place] [address] Performed By: #### 2 4323-8 ####[facility] [id number] [place] [address] ALT [Catalytic activity/Vol] 14 U/L Normal 10-54 [facility] Comment on above: Order Comment: Speci men Type: BLOOD SPECIMENOrdering Facility: [facility] Address: [address] [place] [address] Performed By: #### 2 4323-8 ####[facility] [id number] [place] [address] Anion gap [Moles/Vol] 3 mmol/L Low 8-15 [facility] Comment on above: Order Comment: Speci men Type: BLOOD SPECIMENOrdering Facility: [facility] Address: [address] [place] [address] Performed By: #### 2 4323-8 ####[facility] [id number] [place] [address] AST [Catalytic activity/Vol] 18 U/L Normal 14-40 [facility] Comment on above: Order Comment: Speci men Type: BLOOD SPECIMENOrdering Facility: [facility] Address: [address] [place] [address] Performed By: #### 2 4323-8 ####[facility] [id number] [place] [address] Bilirubin [Mass/Vol] 0.2 mg/dL Normal 0.2-1.3 [facility] Comment on above: Order Comment: Speci men Type: BLOOD SPECIMENOrdering Facility: [facility] Address: [address] [place] [address] Performed By: #### 2 4323-8 ####[facility] [id number] [place] [address] Calcium [Mass/Vol] 9.4 mg/dL Normal 8.5-10.2 [facility] Comment on above: Order Comment: Speci men Type: BLOOD SPECIMENOrdering Facility: [facility] Address: [address] [place] [address] Performed By: #### 2 4323-8 ####[facility] [id number] [place] [address] Chloride [Moles/Vol] 104 mmol/L Normal 98-107 [facility] Comment on above: Order Comment: Speci men Type: BLOOD SPECIMENOrdering Facility: [facility] Address: [address] [place] [address] Performed By: #### 2 4323-8 ####[facility] [id number] [place] [address] CO2 [Moles/Vol] 28 mmol/L Normal 22-30 [facility] Comment on above: Order Comment: Speci men Type: BLOOD SPECIMENOrdering Facility: [facility] Address: [address] [place] [address] Performed By: #### 2 4323-8 ####[facility] [id number] [place] [address] Creatinine [Mass/Vol] 0.95 mg/dL Normal 0.73-1.22 [facility] Comment on above: Order Comment: Speci men Type: BLOOD SPECIMENOrdering Facility: [facility] Address: [address] [place] [address] Performed By: #### 2 4323-8 ####[facility] [id number] [place] [address] Creatinine and Glomerular filtration rate.predicted panel (S/P/Bld) 83 mL/min/1.73m??? Normal >=60 [facility] Comment on above: Order Comment: Speci men Type: BLOOD SPECIMENOrdering Facility: [facility] Address: [address] [place] [address] Result Comment: Carol mated Glomerular Filtration Rate [...] actual GFR. Performed By: #### 2 4323-8 ####[facility] [id number] [place] [address] Glucose [Mass/Vol] 113 mg/dL High 74-99 [facility] Comment on above: Order Comment: Speci men Type: BLOOD SPECIMENOrdering Facility: [facility] Address: [address] [place], [place] [address] Result Comment: The [place] Diabetes [employer] (ADA) provides guidance for cutoff [...] Standards of Medical Care in Diabetes 2016, [place] [employer]. Diabetes Care. 2016.39(Suppl 1). Performed By: #### 2 4323-8 ####[facility] [id number] [place] [address] Potassium [Moles/Vol] 4.2 mmol/L Normal 3.7-5.1 [facility] Comment on above: Order Comment: Speci men Type: BLOOD SPECIMENOrdering Facility: [facility] Address: [address] [place] [address] Performed By: #### 2 4323-8 ####[facility] [id number] [place] [address] Protein [Mass/Vol] 7.3 g/dL Normal 6.3-8.0 [facility] Comment on above: Order Comment: Speci men Type: BLOOD SPECIMENOrdering Facility: [facility] Address: [address] [place] [address] Performed By: #### 2 4323-8 ####[facility] [id number] [place] [address] Sodium [Moles/Vol] 135 mmol/L Low 136-144 [facility] Comment on above: Order Comment: Speci men Type: BLOOD SPECIMENOrdering Facility: [facility] Address: [address] [place] [address] Performed By: #### 2 4323-8 ####[facility] [id number] [place] [address] Urea nitrogen [Mass/Vol] 23 mg/dL Normal 9-24 [facility] Comment on above: Order Comment: Speci men Type: BLOOD SPECIMENOrdering Facility: [facility] Address: [address] [place] [address] Performed By: #### 2 4323-8 ####[facility] [id number] [place] [address] IMMUNOFIXATION SCREEN, SERUM on 2024 INTERPRETATION (MPA) Atypical restricted bands are present in the IgG and lambda regions. Consistent with IgG lambda monoclonal gammopathy. Normal [facility] Comment on above: Order Comment: Speci men Type: BLOOD SPECIMENOrdering Facility: [facility] Address: [address] [place] [address] Performed By: #### I FES ####[facility] [id number] [place] [address] [place] MPA RESULT M protein is present. Abnormal No M protein is identified. [facility] Comment on above: Order Comment: Speci men Type: BLOOD SPECIMENOrdering Facility: [facility] Address: [address] [place] [address] Performed By: #### I FES ####[facility] [id number] [place] [address] [place] STAFF REVIEW ([facility]) Reviewed by Jordana Guallpa MD Normal [facility] Comment on above: Order Comment: Speci men Type: BLOOD SPECIMENOrdering Facility: [facility] Address: [address] [place] [address] Performed By: #### I FESC ####[facility] [id number] [place] [id number] [place] IMMUNOGLOBULINS,IGG,IGA,IGMo n 2024 IgA [Mass/Vol] 51 mg/dL Low 70-400 [facility] Comment on above: Order Comment: Speci men Type: BLOOD SPECIMENOrdering Facility: [facility] Address: [address] [place] [address] Performed By: #### S ERIMM ####[facility] [id number] [place] [address] [place] IgG [Mass/Vol] 1670 mg/dL High 700-1600 [facility] Comment on above: Order Comment: Speci men Type: BLOOD SPECIMENOrdering Facility: [facility] Address: [address] [place] [address] Performed By: #### S ERIMM ####[facility] [id number] [place] [address] [place] IgM [Mass/Vol] 17 mg/dL Low 40-230 [facility] Comment on above: Order Comment: Speci men Type: BLOOD SPECIMENOrdering Facility: [facility] Address: [address] [place] [address] Performed By: #### S ERIMM ####[facility] [id number] [place] [address] [place] KAPPA/LOMBARDI,FREE,SERon 2023 Immunoglobulin light chains.kappa.free (S) [Mass/Vol] 17.4 mg/L Normal 3.3-19.4 [facility] Comment on above: Order Comment: Speci men Type: BLOOD SPECIMENOrdering Facility: [facility] Address: [address] [place] [address] Result Comment: Rare ly, increased serum free light chains levels may not be detected or accurately quantified due to prozone phenomenon or in high viscosity samples using this immunoturbidimetric assay. Correlation with other laboratory results and clinical findings is recommended. The [place] Free Light Chain was performed using the Binding Site Optilite immunoturbidimetric method. Result obtained with different assay methods or kits cannot be used interchangeably. Performed By: #### K LFRS ####[facility] [id number] [place] [address] [place] Immunoglobulin light chains.kappa/Immunoglo bulin light chains.lambda (S) [Mass ratio] 0.33 Normal 0.26-1.65 [facility] Comment on above: Order Comment: Speci men Type: BLOOD SPECIMENOrdering Facility: [facility] Address: [address] [place] [address] Performed By: #### K LFRS ####[facility] LABCLIA [id number] [place] [address] [place] Immunoglobulin light chains.lambda.free [Mass/Vol] 52.1 mg/L High 5.7-26.3 [facility] Comment on above: Order Comment: Speci men Type: BLOOD SPECIMENOrdering Facility: [facility] Address: [address] [place] [address] Result Comment: Rare ly, increased serum free [...] used interchangeably. Performed By: #### K LFRS ####[facility] LABCLIA [id number] [place] [address] [place] LOWER RESPIRATORY CULTUREon [...] <=4 F TOBRAMYCIN S <=1 F Susceptible [facility] Comment on above: Performed By: #### 6 24-7 #### [facility] ([id number]) [address], [address] [place] [address] PROTEIN ELECTROPHORESIS SERU M (P)on 2024 Albumin [Mass/Vol] 3.52 g/dL Normal 3.43-5.41 [facility] Comment on above: Order Comment: Speci men Type: BLOOD SPECIMENOrdering Facility: [facility] Address: [address] [place] [address] Performed By: #### L [id number] ####[facility] LABCLIA [id number] [place] [address] [place] Alpha 1 globulin Elph [Mass/Vol] 0.40 g/dL Normal 0.18-0.43 [facility] Comment on above: Order Comment: Speci men Type: BLOOD SPECIMENOrdering Facility: [facility] Address: [address] [place] [address] Performed By: #### L [id number] ####[facility]CL[facility] [id number] [place] [address] [place] Alpha 2 globulin Elph [Mass/Vol] 0.93 g/dL Normal 0.42-0.98 [facility] Comment on above: Order Comment: Speci men Type: BLOOD SPECIMENOrdering Facility: [facility] Address: [address] [place] [address] Performed By: #### L [id number] ####[facility]CL[facility] [id number] [place] [address] [place] Beta globulin Elph [Mass/Vol] 0.54 g/dL Low 0.61-1.17 [facility] Comment on above: Order Comment: Speci men Type: BLOOD SPECIMENOrdering Facility: [facility] Address: [address] [place] [address] Performed By: #### L [id number] ####[facility]CL[facility] [id number] [place] [address] [place] Gamma globulin Elph [Mass/Vol] 1.42 g/dL Normal 0.53-1.51 [facility] Comment on above: Order Comment: Speci men Type: BLOOD SPECIMENOrdering Facility: [facility] Address: [address] [place] [address] Performed By: #### L [id number] ####[facility] [id number] [address] [place] INTERPRETATION COMMENT FOR PROTEIN ELECTROPHORESIS See separate immunofixation report for characterization of monoclonal gammopathy. Normal [facility] Comment on above: Order Comment: Speci men Type: BLOOD SPECIMENOrdering Facility: [facility] Address: [address] [place] [address] Performed By: #### L [id number] ####[facility] LABIA [id number] [address] [place] M-PROTEIN LOCATION Gamma Fraction 1 Normal [facility] Comment on above: Order Comment: Speci men Type: BLOOD SPECIMENOrdering Facility: [facility] Address: [address] [place] [address] Performed By: #### L [id number] ####[facility]CL[facility] [id number] [place] [address] [place] Protein Fractions [Interp] An M protein is identified on protein electrophoresis. Abnormal No definitive M protein is identified on protein electrophor esis. [facility] Comment on above: Order Comment: Speci men Type: BLOOD SPECIMENOrdering Facility: [facility] Address: [address] [place] [address] Performed By: #### L [id number] ####[facility]CLIA [id number] [place] [address] [place] Protein.monoclonal Elph [Mass/Vol] 1.18 g/dL High <=0.00 [facility] Comment on above: Order Comment: Speci men Type: BLOOD SPECIMENOrdering Facility: [facility] Address: [address] [place] [address] Performed By: #### L [id number] ####[facility]CLIA [id number] [address] [place] SPE STAFF REVIEW Reviewed by Jordana Guallpa MD [facility] Comment on above: Order Comment: Speci men Type: BLOOD SPECIMENOrdering Facility: [facility] Address: [address] [place] [address] Performed By: #### L [id number] ####[facility] LABIA [id number] [place] [address] [place] Prot SerPl-mCncon 2024 Protein [Mass/Vol] 6.8 g/dL Normal 6.3-8.0 [facility] Comment on above: Order Comment: Speci men Type: BLOOD SPECIMENOrdering Facility: [facility] Address: [address] [place] [address] Performed By: #### 2 885-2 ####[facility] LABIA [id number] [address] [place] Devonte 01-16-2024 NOE Telephone (HEMASA) -- RAGHAVENDRA HEARD ([id number]) 1945 M Date Time Provider Department 01/16/24 [...] [C90.00] Order(s):COMPREHENSIVE METABOLIC PANEL [SQCMP] Order #: [id number] FUTURE COMPLETE BLOOD COUNT AND DIFFERENTIAL [SQCBCDIF] Order #: [id number] FUTURE MONOCLONAL PROTEIN, SERUM (BLOOD) [SQSERMPA] Order #: [id number] FUTURE PROTEIN ELECTROPHORESIS SERUM W/INTERP [SQSEPG] Order #: [id number] FUTURE Prescriptions as of 01/16/2024 - gabapentin [...] Status:Closed by DEBBIE DOWNEY on 01/16/24 Normal [facility] HPon 01-09-2024 H&P reviewed. The christine hurd was examined and there are no changes to the H&P. Raghavendra Heard is a 78 y.o. year old male with a PMH of [place] s/p PATTI to [facility] in 2012, CAD, hypertension, hyperlipidemia, multiple myeloma and lung ca s/p chemo and radiation in 2022, and pulmonary hypertension presents for SOB. Patient will undergo RHC. Normal [facility] NURSNOTEon 01-09-2024 NURSNOTE RN educated pt on d/ c instructions. RN encouraged pt to voice any questions or concerns. Pt verbalizes no questions or concerns at this time. Normal [facility] Prostate specific Ag [Mass/V ol]on 01-02-2024 PROSTATIC SPEC ANT 2.36 ng/mL Normal 0.00-4.00 [facility] Comment on above: Result Comment: The method used for this test is [employer] DXI chemiluminescent immunoassay. Values obtained by different assay methods cannot be used interchangeably. Performed By: #### 2 857-1 #### [facility] ([id number]) [address] [place] [address] [facility] 12-27-2023 [facility] Cardiology - [facility] Subjective Raghavendra Heard is a 78 y.o. year old male patient being seen for 6 mo follow up CAD, hypertension, and hyperlipidemia. He was started on amlodipine at last apt in May 2023. He was admitted to [facility] last month for pneumonia. 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 His [...] is warm (more content not included)... Normal [facility] Office Visiton 12-27-2023 Follow-up visit [id number] Raghavendra Heard 1945 M Date Provider Department Center 12/27/2023 DejaLEO TOLEDO [facility] Family History Problem Relation Age of Onset Diabetes Other Other Other Family Status - Relation Status Age at Other Level of Service:[address] [place] OFFICE/OUTPATIENT ESTABLISHED HIGH MDM 40 MIN Normal [facility] Devonte 12-24-2023 JCN Telephone (LIYAH) -- RAGHAVENDRA HEARD ([id number]) 1945 M Date Time Provider Department 12/24/23 RHONA RUIZ During your visit today, we recorded the following information about you: Rhona Ruiz RN 12/24/2023 1:02 PM Signed Voicemail message received from pt requesting his [facility] script be sent to [facility] in [place]. States he phoned in a request on Sunday. Pt's record shows scripts for Valium and Quitaque were sent on 12/23/23. Call placed to pt. No answer. Voicemail is full. Unable to leave a message. ILENE Tian Rebecca, RN 12/24/2023 4:24 PM Signed Pt notified of scripts and verbalizes understanding. Rhona Ruiz RN Allergies As of Date: 12/24/2023 (No Known Allergies) Date Reviewed: 09/20/2023 Reviewed by: Lexus Alberts DO - Fully Assessed Reason for Visit: Care Coordination [5872] Cmt: Quitaque Request Prescriptions as of 12/24/2023 - HYDROcodone-acetaminophen [...] Status:Closed by RHONA RUIZ on 12/24/23 Normal [facility] CBC W Auto Differential pane l (Bld)on 10-29-2023 Basophils (Bld) [#/Vol] 0.04 10*3/uL [facility] Basophils/100 WBC (Bld) 0.8 % [facility] Differential cell count method Nom (Bld) Auto [facility] Eosinophils (Bld) [#/Vol] 0.12 10*3/uL [facility] Eosinophils/100 WBC (Bld) 2.3 % [facility] Erythrocyte distribution width (RBC) [Ratio] 14.3 % 11.5 - 15.0 % [facility] Hematocrit (Bld) [Volume fraction] 32.2 % Low 39.0 - 51.0 % [facility] Hemoglobin (Bld) [Mass/Vol] 10.9 g/dL Low 13.0 - 17.0 g/dL [facility] Immature granulocytes (Bld) [#/Vol] [facility] Immature granulocytes/100 WBC (Bld) 0.2 % [facility] Interpretation and review of laboratory results Abnormal [facility] Lymphocytes (Bld) [#/Vol] 1.55 10*3/uL [facility] Lymphocytes/100 WBC (Bld) 29.5 % [facility] MCH (RBC) [Entitic mass] 34.3 pg High 26.0 - 34.0 pg [facility] MCHC (RBC) [Mass/Vol] 33.9 g/dL 30.5 - 36.0 g/dL [facility] MCV (RBC) [Entitic vol] 101.3 fL High 80.0 - 100.0 fL [facility] Monocytes (Bld) [#/Vol] 0.43 10*3/uL [facility] Monocytes/100 WBC (Bld) 8.2 % [facility] Neutrophils (Bld) [#/Vol] 3.11 10*3/uL [facility] Neutrophils/100 WBC (Bld) 59.0 % [facility] Nucleated RBC (Bld) [#/Vol] [facility] Nucleated RBC/100 WBC (Bld) [Ratio] 0.0 % /100 WBC [facility] Platelet mean volume (Bld) [Entitic vol] 9.7 fL 9.0 - 12.7 fL [facility] Platelets (Bld) [#/Vol] 185 10*3/uL [facility] RBC (Bld) [#/Vol] 3.18 10*6/uL Low 4.20 - 6.0 0 m/uL [facility] WBC (Bld) [#/Vol] 5.26 10*3/uL [facility] Basophils (Bld) [#/Vol] 0.04 10*3/uL Normal <0.11 [facility] Comment on above: Order Comment: Speci men Type: BLOOD SPECIMENOrdering Facility: [facility] Address: [address] [place] [address] Performed By: #### 5 7021-8 ####[facility] LABCLIA [id number] [place] [address] Basophils/100 WBC (Bld) 0.8 % Normal [facility] Comment on above: Order Comment: Speci men Type: BLOOD SPECIMENOrdering Facility: [facility] Address: [address] [place] [address] Performed By: #### 5 7021-8 ####[facility] LABCLIA [id number] [place] [address] Differential cell count method Nom (Bld) Auto Normal [facility] Comment on above: Order Comment: Speci men Type: BLOOD SPECIMENOrdering Facility: [facility] Address: [address] [place] [address] Performed By: #### 5 7021-8 ####[facility] LABCLIA [id number] [place] [address] Eosinophils (Bld) [#/Vol] 0.12 10*3/uL Normal <0.46 [facility] Comment on above: Order Comment: Speci men Type: BLOOD SPECIMENOrdering Facility: [facility] Address: [address] [place] [address] Performed By: #### 5 7021-8 ####[facility] LABCLIA [id number] [place] [address] Eosinophils/100 WBC (Bld) 2.3 % Normal [facility] Comment on above: Order Comment: Speci men Type: BLOOD SPECIMENOrdering Facility: [facility] Address: [address] [place] [address] Performed By: #### 5 7021-8 ####[facility] LABCLIA [id number] [place] [address] Erythrocyte distribution width (RBC) [Ratio] 14.3 % Normal 11.5-15.0 [facility] Comment on above: Order Comment: Speci men Type: BLOOD SPECIMENOrdering Facility: [facility] Address: [address] [place] [address] Performed By: #### 5 7021-8 ####[facility] LABCLIA [id number] [place] [address] Hematocrit (Bld) [Volume fraction] 32.2 % Low 39.0-51.0 [facility] Comment on above: Order Comment: Speci men Type: BLOOD SPECIMENOrdering Facility: [facility] Address: [address] [place] [address] Performed By: #### 5 7021-8 ####[facility] LABCLIA [id number] [place] [address] Hemoglobin (Bld) [Mass/Vol] 10.9 g/dL Low 13.0-17.0 [facility] Comment on above: Order Comment: Speci men Type: BLOOD SPECIMENOrdering Facility: [facility] Address: [address] [place] [address] Performed By: #### 5 7021-8 ####[facility] LABCLIA [id number] [place] [address] Immature granulocytes (Bld) [#/Vol] 10*3/uL Normal <0.10 [facility] Comment on above: Order Comment: Speci men Type: BLOOD SPECIMENOrdering Facility: [facility] Address: [address] [place] [address] Performed By: #### 5 7021-8 ####[facility] LABCLIA [id number] [place] [address] Immature granulocytes/100 WBC (Bld) 0.2 % Normal [facility] Comment on above: Order Comment: Speci men Type: BLOOD SPECIMENOrdering Facility: [facility] Address: [address] [place] [address] Performed By: #### 5 7021-8 ####[facility] LABCLIA [id number] [place] [address] Lymphocytes (Bld) [#/Vol] 1.55 10*3/uL Normal 1.00-4.00 [facility] Comment on above: Order Comment: Speci men Type: BLOOD SPECIMENOrdering Facility: [facility] Address: [address] [place] [address] Performed By: #### 5 7021-8 ####[facility] LABCLIA [id number] [place] [address] Lymphocytes/100 WBC (Bld) 29.5 % Normal [facility] Comment on above: Order Comment: Speci men Type: BLOOD SPECIMENOrdering Facility: [facility] Address: [address] [place] [address] Performed By: #### 5 7021-8 ####[facility] LABCLIA [id number] [place] [address] MCH (RBC) [Entitic mass] 34.3 pg High 26.0-34.0 [facility] Comment on above: Order Comment: Speci men Type: BLOOD SPECIMENOrdering Facility: [facility] Address: [address] [place] [address] Performed By: #### 5 7021-8 ####[facility] LABCLIA [id number] [place] [address] MCHC (RBC) [Mass/Vol] 33.9 g/dL Normal 30.5-36.0 [facility] Comment on above: Order Comment: Speci men Type: BLOOD SPECIMENOrdering Facility: [facility] Address: [address] [place] [address] Performed By: #### 5 7021-8 ####[facility] LABCLIA [id number] [place] [address] MCV (RBC) [Entitic vol] 101.3 fL High 80.0-100.0 [facility] Comment on above: Order Comment: Speci men Type: BLOOD SPECIMENOrdering Facility: [facility] Address: [address] [place] [address] Performed By: #### 5 7021-8 ####[facility] LABCLIA [id number] [place] [address] Monocytes (Bld) [#/Vol] 0.43 10*3/uL Normal <0.87 [facility] Comment on above: Order Comment: Speci men Type: BLOOD SPECIMENOrdering Facility: [facility] Address: [address] [place] [address] Performed By: #### 5 7021-8 ####[facility] LABCLIA [id number] [place] [address] Monocytes/100 WBC (Bld) 8.2 % Normal [facility] Comment on above: Order Comment: Speci men Type: BLOOD SPECIMENOrdering Facility: [facility] Address: [address] [place] [address] Performed By: #### 5 7021-8 ####[facility] LABCLIA [id number] [place] [address] Neutrophils (Bld) [#/Vol] 3.11 10*3/uL Normal 1.45-7.50 [facility] Comment on above: Order Comment: Speci men Type: BLOOD SPECIMENOrdering Facility: [facility] Address: [address] [place] [address] Performed By: #### 5 7021-8 ####[facility] LABCLIA [id number] [place] [address] Neutrophils/100 WBC (Bld) 59.0 % Normal [facility] Comment on above: Order Comment: Speci men Type: BLOOD SPECIMENOrdering Facility: [facility] Address: [address] [place] [address] Performed By: #### 5 7021-8 ####[facility] LABCLIA [id number] [place] [address] Nucleated RBC (Bld) [#/Vol] 10*3/uL Normal <0.01 [facility] Comment on above: Order Comment: Speci men Type: BLOOD SPECIMENOrdering Facility: [facility] Address: [address] [place] [address] Performed By: #### 5 7021-8 ####[facility] LABCLIA [id number] [place] [address] Nucleated RBC/100 WBC (Bld) [Ratio] 0.0 /100 WBC Normal [facility] Comment on above: Order Comment: Speci men Type: BLOOD SPECIMENOrdering Facility: [facility] Address: [address] [place] [address] Performed By: #### 5 7021-8 ####[facility] LABCLIA [id number] [place] [address] Platelet mean volume (Bld) [Entitic vol] 9.7 fL Normal 9.0-12.7 [facility] Comment on above: Order Comment: Speci men Type: BLOOD SPECIMENOrdering Facility: [facility] Address: [address] [place] [address] Performed By: #### 5 7021-8 ####[facility] LABCLIA [id number] [place] [address] Platelets (Bld) [#/Vol] 185 10*3/uL Normal 150-400 [facility] Comment on above: Order Comment: Speci men Type: BLOOD SPECIMENOrdering Facility: [facility] Address: [address] [place] [address] Performed By: #### 5 7021-8 ####[facility] LABCLIA [id number] [place] [address] RBC (Bld) [#/Vol] 3.18 10*6/uL Low 4.20-6.00 [facility] Comment on above: Order Comment: Speci men Type: BLOOD SPECIMENOrdering Facility: [facility] Address: [address] [place] [address] Performed By: #### 5 7021-8 ####[facility] LABIA [id number] [place] [address] WBC (Bld) [#/Vol] 5.26 10*3/uL Normal 3.70-11.00 [facility] Comment on above: Order Comment: Speci men Type: BLOOD SPECIMENOrdering Facility: [facility] Address: [address] [place] [address] Performed By: #### 5 7021-8 ####[facility] [id number] [place] [address] CNOVSPon 10-29-2023 CNOVSP Visit (SP) Office (H EMASA) -- RAGHAVENDRA HEARD ([id number]) 1945 M Date Time Provider Department 10/29/23 10:30 AM JA BECKER During your visit today, we recorded the following information about you: Temperature Pulse Respiration Blood pressure 97.6 degrees 69/minute 18/minute 134/74 Weight 68.8 kg Ja Becker MD 10/31/2023 6:53 AM Signed PATIENT NAME: Raghavendra Heard DATE: 10/29/2023 PRIMARY CARE PHYSICIAN: Dr. Prerna Grissom II OTHER PHYSICIANS: Dr. Toledo (Cardiology [facility]), Dr. Zhang, Dr. Hernández ([facility] in [place]), Dr. Stinson (Thoracic Surgery in [place]), Dr. Alberts Portions of this encounter note [...] Nearly reso (more content not included)... Normal [facility] Comprehensive metabolic 2000 panelOrdered By: Niko Griffith on 10-29-2023 Albumin [Mass/Vol] 3.9 g/dL 3.9 - 4.9 g/dL [facility] ALP [Catalytic activity/Vol] 74 U/L 38 - 113 U/L [facility] ALT [Catalytic activity/Vol] 16 U/L 10 - 54 U/L [facility] Anion gap [Moles/Vol] 8 mmol/L Low 9 - 18 mmol/L [facility] AST [Catalytic activity/Vol] 19 U/L 14 - 40 U/L [facility] Bilirubin [Mass/Vol] 0.3 mg/dL 0.2 - 1 .3 mg/dL [facility] Calcium [Mass/Vol] 9.3 mg/dL 8.5 - 10. 2 mg/dL [facility] Chloride [Moles/Vol] 107 mmol/L High 97 - 10 5 mmol/L [facility] CO2 [Moles/Vol] 26 mmol/L 22 - 30 mmol/L [facility] Creatinine [Mass/Vol] 0.89 mg/dL 0.73 - 1.22 mg/dL [facility] GFR/1.73 sq M.predicted among non-blacks MDRD (S/P/Bld) [Vol rate/Area] 89 mL/min/{1.73_m2} - PINF [facility] Comment on above: Estimated Glomerular Filtration Rate [...] 136 mg/dL High 74 - 99 mg/dL [facility] Comment on above: The [place] Diab[employer] Association (ADA) provides guidance for [...] Standards of Medical Care in Diabetes 2016, [place] [employer]. Diabetes Care. 2016.39(Suppl 1). Interpretation and review of laboratory results Abnormal [facility] Potassium [Moles/Vol] 4.0 mmol/L 3.7 - 5.1 mmol/L [facility] Protein [Mass/Vol] 7.9 g/dL 6.3 - 8.0 g/dL [facility] Sodium [Moles/Vol] 141 mmol/L 136 - 144 mmol/L [facility] Urea nitrogen [Mass/Vol] 19 mg/dL 9 - 24 mg/dL [facility] Comprehensive metabolic 2000 panelon 10-29-2023 Albumin [Mass/Vol] 3.9 g/dL Normal 3.9-4.9 [facility] Comment on above: Order Comment: Speci men Type: BLOOD SPECIMENOrdering Facility: [facility] Address: [address] [place] [address] Performed By: #### 2 4323-8 ####[facility] LABCLIA [id number] [place] [address] ALP [Catalytic activity/Vol] 74 U/L Normal 38-113 [facility] Comment on above: Order Comment: Speci men Type: BLOOD SPECIMENOrdering Facility: [facility] Address: [address] [place] [address] Performed By: #### 2 4323-8 ####[facility] LABCLIA [id number] [place] [address] ALT [Catalytic activity/Vol] 16 U/L Normal 10-54 [facility] Comment on above: Order Comment: Speci men Type: BLOOD SPECIMENOrdering Facility: [facility] Address: [address] [place] [address] Performed By: #### 2 4323-8 ####[facility] LABCLIA [id number] [place] [address] Anion gap [Moles/Vol] 8 mmol/L Low 9-18 [facility] Comment on above: Order Comment: Speci men Type: BLOOD SPECIMENOrdering Facility: [facility] Address: [address] [place] [address] Performed By: #### 2 4323-8 ####[facility] LABCLIA [id number] [place] [address] AST [Catalytic activity/Vol] 19 U/L Normal 14-40 [facility] Comment on above: Order Comment: Speci men Type: BLOOD SPECIMENOrdering Facility: [facility] Address: [address] [place] [address] Performed By: #### 2 4323-8 ####[facility] LABCLIA [id number] [place] [address] Bilirubin [Mass/Vol] 0.3 mg/dL Normal 0.2-1.3 [facility] Comment on above: Order Comment: Speci men Type: BLOOD SPECIMENOrdering Facility: [facility] Address: [address] [place] [address] Performed By: #### 2 4323-8 ####[facility] LABCLIA [id number] [place] [address] Calcium [Mass/Vol] 9.3 mg/dL Normal 8.5-10.2 [facility] Comment on above: Order Comment: Speci men Type: BLOOD SPECIMENOrdering Facility: [facility] Address: [address] [place] [address] Performed By: #### 2 4323-8 ####[facility] LABCLIA [id number] [place] [address] Chloride [Moles/Vol] 107 mmol/L High 97-105 [facility] Comment on above: Order Comment: Speci men Type: BLOOD SPECIMENOrdering Facility: [facility] Address: [address] [place] [address] Performed By: #### 2 4323-8 ####[facility] LABCLIA [id number] [place] [address] CO2 [Moles/Vol] 26 mmol/L Normal 22-30 [facility] Comment on above: Order Comment: Speci men Type: BLOOD SPECIMENOrdering Facility: [facility] Address: [address] [place] [address] Performed By: #### 2 4323-8 ####[facility] LABCLIA [id number] [place] [address] Creatinine [Mass/Vol] 0.89 mg/dL Normal 0.73-1.22 [facility] Comment on above: Order Comment: Speci men Type: BLOOD SPECIMENOrdering Facility: [facility] Address: [address] [place] [address] Performed By: #### 2 4323-8 ####[facility] LABCLIA [id number] [place] [address] Creatinine and Glomerular filtration rate.predicted panel (S/P/Bld) 89 mL/min/1.73m??? Normal >=60 [facility] Comment on above: Order Comment: Speci men Type: BLOOD SPECIMENOrdering Facility: [facility] Address: [address] [place] [address] Result Comment: Carol mated Glomerular Filtration Rate [...] actual GFR. Performed By: #### 2 4323-8 ####[facility] LABCLIA [id number] [place] [address] Glucose [Mass/Vol] 136 mg/dL High 74-99 [facility] Comment on above: Order Comment: Speci men Type: BLOOD SPECIMENOrdering Facility: [facility] Address: [address] [place] [address] Result Comment: The [place] [employer] (ADA) provides guidance for cutoff [...] Standards of Medical Care in Diabetes 2016, [place] [employer]. Diabetes Care. 2016.39(Suppl 1). Performed By: #### 2 4323-8 ####[facility] LABCLIA [id number] [place] [address] Potassium [Moles/Vol] 4.0 mmol/L Normal 3.7-5.1 [facility] Comment on above: Order Comment: Speci men Type: BLOOD SPECIMENOrdering Facility: [facility] Address: [address] [place] [address] Performed By: #### 2 4323-8 ####[facility] LABCLIA [id number] [place] [address] Protein [Mass/Vol] 7.9 g/dL Normal 6.3-8.0 [facility] Comment on above: Order Comment: Speci men Type: BLOOD SPECIMENOrdering Facility: [facility] Address: [address] [place] [address] Performed By: #### 2 4323-8 ####[facility] LABCLIA [id number] [place] [address] Sodium [Moles/Vol] 141 mmol/L Normal 136-144 [facility] Comment on above: Order Comment: Speci men Type: BLOOD SPECIMENOrdering Facility: [facility] Address: [address] [place] [address] Performed By: #### 2 4323-8 ####[facility] LABCLIA [id number] [place] [address] Urea nitrogen [Mass/Vol] 19 mg/dL Normal 9-24 [facility] Comment on above: Order Comment: Speci men Type: BLOOD SPECIMENOrdering Facility: [facility] Address: [address] [place] [address] Performed By: #### 2 4323-8 ####[facility] LABCLIA [id number] [place] [address] IMMUNOFIXATION SCREEN, SERUM on 10-29-2023 INTERPRETATION (MPA) Atypical restricted bands are present in the IgG and lambda regions. Consistent with IgG lambda monoclonal gammopathy. Normal [facility] Comment on above: Order Comment: Speci men Type: BLOOD SPECIMENOrdering Facility: [facility] Address: [address] [place] [address] Performed By: #### I FESC ####[facility] LABCLIA [id number] [place] [address] [place] MPA RESULT M protein is present. Abnormal No M protein is identified. [facility] Comment on above: Order Comment: Speci men Type: BLOOD SPECIMENOrdering Facility: [facility] Address: [address] [place] [address] Performed By: #### I FESC ####[facility] LABCLIA [id number] [address] [address] [place] STAFF REVIEW (MPA) Reviewed by Karena Jacobs M.D., Ph.D Normal [facility] Comment on above: Order Comment: Speci men Type: BLOOD SPECIMENOrdering Facility: [facility] Address: [address] [place] [address] Performed By: #### I FESC ####[facility] LABCLIA [id number] [place] [address] [place] IMMUNOGLOBULINS,IGG,IGA,IGMo n 10-29-2023 IgA [Mass/Vol] 39 mg/dL Low 70 - 400 mg/dL [facility] IgG [Mass/Vol] 2206 mg/dL High 700 - 1600 mg/dL [facility] IgM [Mass/Vol] 14 mg/dL Low 40 - 230 mg/dL [facility] Interpretation and review of laboratory results Abnormal [facility] IgA [Mass/Vol] 39 mg/dL Low 70-400 [facility] Comment on above: Order Comment: Speci men Type: BLOOD SPECIMENOrdering Facility: [facility] Address: [address] [place] [address] Performed By: #### S ERIMM ####[facility] LABCLIA [id number] [place] [address] [place] IgG [Mass/Vol] 2206 mg/dL High 700-1600 [facility] Comment on above: Order Comment: Speci men Type: BLOOD SPECIMENOrdering Facility: [facility] Address: [address] [place] [address] Performed By: #### S ERIMM ####[facility] LABIA [id number] [place] [address] [place] IgM [Mass/Vol] 14 mg/dL Low 40-230 [facility] Comment on above: Order Comment: Speci men Type: BLOOD SPECIMENOrdering Facility: [facility] Address: [address] [place] [address] Performed By: #### S ERIMM ####[facility] LABIA [id number] [place] [address] [place] KAPPA/LOMBARDI,FREE,SERon 2023 Immunoglobulin light chains.kappa.free (S) [Mass/Vol] 20.3 mg/L High 3.3-19.4 [facility] Comment on above: Order Comment: Speci men Type: BLOOD SPECIMENOrdering Facility: [facility] Address: [address] [place] [address] Result Comment: Rare ly, increased serum free light chains levels may not be detected or accurately quantified due to prozone phenomenon or in high viscosity samples using this immunoturbidimetric assay. Correlation with other laboratory results and clinical findings is recommended. The [place] Free Light Chain was performed using the Binding Site Optilite immunoturbidimetric method. Result obtained with different assay methods or kits cannot be used interchangeably. Performed By: #### K LFRS ####[facility] LABCLIA [id number] [place] [address] [place] Immunoglobulin light chains.kappa/Immunoglo bulin light chains.lambda (S) [Mass ratio] 0.27 Normal 0.26-1.65 [facility] Comment on above: Order Comment: Speci men Type: BLOOD SPECIMENOrdering Facility: [facility] Address: [address] [place] [address] Performed By: #### K LFRS ####[facility] LABIA [id number] [place] [address] [place] Immunoglobulin light chains.lambda.free [Mass/Vol] 74.6 mg/L High 5.7-26.3 [facility] Comment on above: Order Comment: Speci men Type: BLOOD SPECIMENOrdering Facility: [facility] Address: [address] [place] [address] Result Comment: Rare ly, increased serum free [...] used interchangeably. Performed By: #### K LFRS ####[facility] LABCLIA [id number] [place] [address] [place] PROTEIN ELECTROPHORESIS SERU M WITH KAYLA (P)on 04-29-2024 Albumin [Mass/Vol] 3.63 g/dL Normal 3.43-5.41 [facility] Comment on above: Order Comment: Speci men Type: BLOOD SPECIMENOrdering Facility: [facility] Address: [address] [place] [address] Performed By: #### L [id number] ####[facility] LABIA [id number] [place] [address] [place] Alpha 1 globulin Elph [Mass/Vol] 0.39 g/dL Normal 0.18-0.43 [facility] Comment on above: Order Comment: Speci men Type: BLOOD SPECIMENOrdering Facility: [facility] Address: [address] [place] [address] Performed By: #### L [id number] ####[facility] [id number] [place] [address] [place] Alpha 2 globulin Elph [Mass/Vol] 0.91 g/dL Normal 0.42-0.98 [facility] Comment on above: Order Comment: Speci men Type: BLOOD SPECIMENOrdering Facility: [facility] Address: [address] [place] [address] Performed By: #### L [id number] ####[facility] LABIA [id number] [place] [address] [place] Beta globulin Elph [Mass/Vol] 0.48 g/dL Low 0.61-1.17 [facility] Comment on above: Order Comment: Speci men Type: BLOOD SPECIMENOrdering Facility: [facility] Address: [address] [place] [address] Performed By: #### L [id number] ####[facility] LABIA [id number] [place] [address] [place] COMMENT (SERUM PROT ELECTRO) Monoclonal Protein analysis (immunofixation) is not indicated. Normal [facility] Comment on above: Order Comment: Speci men Type: BLOOD SPECIMENOrdering Facility: [facility] Address: [address] [id number] Performed By: #### L [id number] ####[facility] LABCLIA [id number] [place] [address] [place] Gamma globulin Elph [Mass/Vol] 1.90 g/dL High 0.53-1.51 [facility] Comment on above: Order Comment: Speci men Type: BLOOD SPECIMENOrdering Facility: [facility] Address: [address] [place] [address] Performed By: #### L [id number] ####[facility] LABIA [id number] [place] [address] [place] INTERPRETATION COMMENT FOR PROTEIN ELECTROPHORESIS See separate immunofixation report for characterization of monoclonal gammopathy. Normal [facility] Comment on above: Order Comment: Speci men Type: BLOOD SPECIMENOrdering Facility: [facility] Address: [address] [place] [address] Performed By: #### L [id number] ####[facility] LABIA [id number] [place] [address] [place] M-PROTEIN LOCATION Gamma Fraction 1 Normal [facility] Comment on above: Order Comment: Speci men Type: BLOOD SPECIMENOrdering Facility: [facility] Address: [address] [place] [address] Performed By: #### L [id number] ####[facility] LABIA [id number] [place] [id number] [place] Protein Fractions [Interp] An M protein is identified on protein electrophoresis. Abnormal No definitive M protein is identified on protein electrophor esis. [facility] Comment on above: Order Comment: Speci men Type: BLOOD SPECIMENOrdering Facility: [facility] Address: [address] [place], [place] [address] Performed By: #### L [id number] ####[facility] LABCLIA [id number] [place] [id number] [place] Protein.monoclonal Elph [Mass/Vol] 1.69 g/dL High <=0.00 [facility] Comment on above: Order Comment: Speci men Type: BLOOD SPECIMENOrdering Facility: [facility] Address: [address] [place] [address] Performed By: #### L [id number] ####[facility] LABCLIA [id number] [address] [place] SPE STAFF REVIEW Reviewed by Karena Jacobs M.D., Ph.D Normal [facility] Comment on above: Order Comment: Speci men Type: BLOOD SPECIMENOrdering Facility: [facility] Address: [address] [place] [address] Performed By: #### L [id number] ####[facility] LABCLIA [id number] [place] [address] [place] Prot SerPl-mCncon 10-29-2023 Protein [Mass/Vol] 7.3 g/dL Normal 6.3-8.0 [facility] Comment on above: Order Comment: Speci men Type: BLOOD SPECIMENOrdering Facility: [facility] Address: [address] [place] [address] Performed By: #### 2 885-2 ####[facility] LABIA [id number] [address] [place] CT Chest WO [...] any questions regarding this interpretation, please call [phone]. If you are unable to reach us at the number above, please feel free to contact [facility] at [phone]. DIVISION OF RADIOLOGY * * *Final Report* * * DATE OF EXAM: Oct 22 2023 1:28PM [facility] 0541 - CT CHEST WO IVCON / [...] abdomen: Visualized upper abdomen is grossly unremarkable. Computer Repair Technician (topogram) images: Unremarkable. DIVISION OF RADIOLOGY Provider, Elizabeth Torres - 10/23/2023 * * *Final Report* * * DATE OF EXAM: Oct 22 2023 1:28PM [facility] 0541 - CT CHEST WO IVCON / [...] abdomen: Visualized upper abdomen is grossly unremarkable. Computer Repair Technician (topogram) images: Unremarkable. IMPRESSION IMPRESSION: Nearly resolved [...] any questions regarding this interpretation, please call [phone]. If you are unable to reach us at the number above, please feel free to contact [facility] eRadiology at [phone]. [facility] CT Chest WO contrastOrdered By: Ccf Provider on 10-23-2023 [facility] CT CHEST WO IVCONon 10-22-19 CT CHEST WO IVCON * * *Final Report* * * DATE OF EXAM: Oct 22 2023 1:28PM [facility] 0541 - CT CHEST WO IVCON / [...] abdomen: Visualized upper abdomen is grossly unremarkable. Computer Repair Technician (topogram) images: Unremarkable. IMPRESSION: Nearly resolved multifocal [...] any questions regarding this interpretation, please call [phone]. If you are unable to reach us at the number above, please feel free to contact [facility] eRadiology at [phone]. [id number] Normal [facility] CT Chest WO contraston 10-21 Radiology Study observation (narrative) [facility] CNOVon 09-20-2023 CNOV Office Visit (PAMAVN ) -- RAGHAVENDRA HEARD ([id number]) 1945 M Date Time Provider Department 09/20/23 1:00 PM LEXUS ALBERTS During your visit today, we recorded the following information about you: Pulse Blood pressure Weight 56/minute 129/66 69 kg Lexus Alberts DO 09/20/2023 1:47 PM Signed [facility] Medication Refill Raghavendra Heard September 20, 2023 Medication Refill Appointment Raghavendra Heard is a 78 year old male who presents to [facility], accompanied by spouse, [...] Time: 1315 (more content not included)... Normal [facility] CBC W Auto Differential pane l (Bld)on 08-06-2023 Basophils (Bld) [#/Vol] 0.03 10*3/uL <0.11 k/uL [facility] Basophils/100 WBC (Bld) 0.6 % [facility] Differential cell count method Nom (Bld) Auto [facility] Eosinophils (Bld) [#/Vol] 0.15 10*3/uL <0.46 k/uL [facility] Eosinophils/100 WBC (Bld) 3.2 % [facility] Erythrocyte distribution width (RBC) [Ratio] 13.1 % 11.5 - 15.0 % [facility] Hematocrit (Bld) [Volume fraction] 30.8 % Low 39.0 - 51.0 % [facility] Hemoglobin (Bld) [Mass/Vol] 10.3 g/dL Low 13.0 - 17.0 g/dL [facility] Immature granulocytes (Bld) [#/Vol] <0.10 k/uL [facility] Immature granulocytes/100 WBC (Bld) 0.4 % [facility] Lymphocytes (Bld) [#/Vol] 1.78 10*3/uL 1.00 - 4.00 k/uL [facility] Lymphocytes/100 WBC (Bld) 37.6 % [facility] MCH (RBC) [Entitic mass] 34.9 pg High 26.0 - 34.0 pg [facility] MCHC (RBC) [Mass/Vol] 33.4 g/dL 30.5 - 36.0 g/dL [facility] MCV (RBC) [Entitic vol] 104.4 fL High 80.0 - 100.0 fL [facility] Monocytes (Bld) [#/Vol] 0.49 10*3/uL <0.87 k/uL [facility] Monocytes/100 WBC (Bld) 10.4 % [facility] Neutrophils (Bld) [#/Vol] 2.26 10*3/uL 1.45 - 7.50 k/uL [facility] Neutrophils/100 WBC (Bld) 47.8 % [facility] Nucleated RBC (Bld) [#/Vol] <0.01 k/uL [facility] Nucleated RBC/100 WBC (Bld) [Ratio] 0.0 /100 WBC [facility] Platelet mean volume (Bld) [Entitic vol] 9.7 fL 9.0 - 12.7 fL [facility] Platelets (Bld) [#/Vol] 247 10*3/uL 150 - 400 k/uL [facility] RBC (Bld) [#/Vol] 2.95 10*6/uL Low 4.20 - 6.0 0 m/uL [facility] WBC (Bld) [#/Vol] 4.73 10*3/uL 3.70 - 11.00 k/uL [facility] Basophils (Bld) [#/Vol] 0.03 10*3/uL Normal <0.11 [facility] Comment on above: Order Comment: Speci men Type: BLOOD SPECIMENOrdering Facility: [facility] Address: [address] [place] [address] Performed By: #### 5 7021-8 ####[facility] LABCLIA [id number] [place] [address] Basophils/100 WBC (Bld) 0.6 % Normal [facility] Comment on above: Order Comment: Speci men Type: BLOOD SPECIMENOrdering Facility: [facility] Address: [address] [place] [address] Performed By: #### 5 7021-8 ####[facility] LABCLIA [id number] [place] [address] Differential cell count method Nom (Bld) Auto Normal [facility] Comment on above: Order Comment: Speci men Type: BLOOD SPECIMENOrdering Facility: [facility] Address: [address] [place] [address] Performed By: #### 5 7021-8 ####[facility] LABCLIA [id number] [place] [address] Eosinophils (Bld) [#/Vol] 0.15 10*3/uL Normal <0.46 [facility] Comment on above: Order Comment: Speci men Type: BLOOD SPECIMENOrdering Facility: [facility] Address: [address] [place] [address] Performed By: #### 5 7021-8 ####[facility] LABCLIA [id number] [place] [address] Eosinophils/100 WBC (Bld) 3.2 % Normal [facility] Comment on above: Order Comment: Speci men Type: BLOOD SPECIMENOrdering Facility: [facility] Address: [address] [place] [address] Performed By: #### 5 7021-8 ####[facility] LABCLIA [id number] [place] [address] Erythrocyte distribution width (RBC) [Ratio] 13.1 % Normal 11.5-15.0 [facility] Comment on above: Order Comment: Speci men Type: BLOOD SPECIMENOrdering Facility: [facility] Address: [address] [place] [address] Performed By: #### 5 7021-8 ####[facility] LABCLIA [id number] [place] [address] Hematocrit (Bld) [Volume fraction] 30.8 % Low 39.0-51.0 [facility] Comment on above: Order Comment: Speci men Type: BLOOD SPECIMENOrdering Facility: [facility] Address: [address] [place] [address] Performed By: #### 5 7021-8 ####[facility] LABCLIA [id number] [place] [address] Hemoglobin (Bld) [Mass/Vol] 10.3 g/dL Low 13.0-17.0 [facility] Comment on above: Order Comment: Speci men Type: BLOOD SPECIMENOrdering Facility: [facility] Address: [address] [place] [address] Performed By: #### 5 7021-8 ####[facility] LABCLIA [id number] [place] [address] Immature granulocytes (Bld) [#/Vol] 10*3/uL Normal <0.10 [facility] Comment on above: Order Comment: Speci men Type: BLOOD SPECIMENOrdering Facility: [facility] Address: [address] [place] [address] Performed By: #### 5 7021-8 ####[facility] LABCLIA [id number] [place] [address] Immature granulocytes/100 WBC (Bld) 0.4 % Normal [facility] Comment on above: Order Comment: Speci men Type: BLOOD SPECIMENOrdering Facility: [facility] Address: [address] [place] [address] Performed By: #### 5 7021-8 ####[facility] LABCLIA [id number] [place] [address] Lymphocytes (Bld) [#/Vol] 1.78 10*3/uL Normal 1.00-4.00 [facility] Comment on above: Order Comment: Speci men Type: BLOOD SPECIMENOrdering Facility: [facility] Address: [address] [place] [address] Performed By: #### 5 7021-8 ####[facility] LABCLIA [id number] [place] [address] Lymphocytes/100 WBC (Bld) 37.6 % Normal [facility] Comment on above: Order Comment: Speci men Type: BLOOD SPECIMENOrdering Facility: [facility] Address: [address] [place] [address] Performed By: #### 5 7021-8 ####[facility] LABCLIA [id number] [place] [address] MCH (RBC) [Entitic mass] 34.9 pg High 26.0-34.0 [facility] Comment on above: Order Comment: Speci men Type: BLOOD SPECIMENOrdering Facility: [facility] Address: [address] [place] [address] Performed By: #### 5 7021-8 ####[facility] LABCLIA [id number] [place] [address] MCHC (RBC) [Mass/Vol] 33.4 g/dL Normal 30.5-36.0 [facility] Comment on above: Order Comment: Speci men Type: BLOOD SPECIMENOrdering Facility: [facility] Address: [address] [place] [address] Performed By: #### 5 7021-8 ####[facility] LABCLIA [id number] [place] [address] MCV (RBC) [Entitic vol] 104.4 fL High 80.0-100.0 [facility] Comment on above: Order Comment: Speci men Type: BLOOD SPECIMENOrdering Facility: [facility] Address: [address] [place] [address] Performed By: #### 5 7021-8 ####[facility] LABCLIA [id number] [place] [address] Monocytes (Bld) [#/Vol] 0.49 10*3/uL Normal <0.87 [facility] Comment on above: Order Comment: Speci men Type: BLOOD SPECIMENOrdering Facility: [facility] Address: [address] [place] [address] Performed By: #### 5 7021-8 ####[facility] LABCLIA [id number] [place] [address] Monocytes/100 WBC (Bld) 10.4 % Normal [facility] Comment on above: Order Comment: Speci men Type: BLOOD SPECIMENOrdering Facility: [facility] Address: [address] [place] [address] Performed By: #### 5 7021-8 ####[facility] LABCLIA [id number] [place] [address] Neutrophils (Bld) [#/Vol] 2.26 10*3/uL Normal 1.45-7.50 [facility] Comment on above: Order Comment: Speci men Type: BLOOD SPECIMENOrdering Facility: [facility] Address: [address] [place] [address] Performed By: #### 5 7021-8 ####[facility] LABCLIA [id number] [place] [address] Neutrophils/100 WBC (Bld) 47.8 % Normal [facility] Comment on above: Order Comment: Speci men Type: BLOOD SPECIMENOrdering Facility: [facility] Address: [address] [place] [address] Performed By: #### 5 7021-8 ####[facility] LABCLIA [id number] [place] [address] Nucleated RBC (Bld) [#/Vol] 10*3/uL Normal <0.01 [facility] Comment on above: Order Comment: Speci men Type: BLOOD SPECIMENOrdering Facility: [facility] Address: [address] [place] [address] Performed By: #### 5 7021-8 ####[facility] LABCLIA [id number] [place] [address] Nucleated RBC/100 WBC (Bld) [Ratio] 0.0 /100 WBC Normal [facility] Comment on above: Order Comment: Speci men Type: BLOOD SPECIMENOrdering Facility: [facility] Address: [address] [place] [address] Performed By: #### 5 7021-8 ####[facility] LABCLIA [id number] [place] [address] Platelet mean volume (Bld) [Entitic vol] 9.7 fL Normal 9.0-12.7 [facility] Comment on above: Order Comment: Speci men Type: BLOOD SPECIMENOrdering Facility: [facility] Address: [address] [place] [address] Performed By: #### 5 7021-8 ####[facility] LABCLIA [id number] [place] [address] Platelets (Bld) [#/Vol] 247 10*3/uL Normal 150-400 [facility] Comment on above: Order Comment: Speci men Type: BLOOD SPECIMENOrdering Facility: [facility] Address: [address] [place] [address] Performed By: #### 5 7021-8 ####[facility] LABCLIA [id number] [place] [address] RBC (Bld) [#/Vol] 2.95 10*6/uL Low 4.20-6.00 [facility] Comment on above: Order Comment: Speci men Type: BLOOD SPECIMENOrdering Facility: [facility] Address: [address] [place] [address] Performed By: #### 5 7021-8 ####[facility]EL[facility] JACKSONIA [id number] [place] [address] WBC (Bld) [#/Vol] 4.73 10*3/uL Normal 3.70-11.00 [facility] Comment on above: Order Comment: Speci men Type: BLOOD SPECIMENOrdering Facility: [facility] Address: [address] [place] [address] Performed By: #### 5 7021-8 ####[facility] LABIA [id number] [place] [address] CNOVSPon 08-06-2023 CNOVSP Visit (SP) Office (H EMASA) -- RAGHAVENDRA HEARD ([id number]) 1945 M Date Time Provider Department 08/06/23 10:15 AM JA BECKER During your visit today, we recorded the following information about you: Temperature Pulse Respiration Blood pressure 97 degrees 58/minute 18/minute 170/68 Weight Height 69.5 kg 1.727 m Ja Becker MD 08/06/2023 7:53 PM Signed PATIENT NAME: Raghavendra Heard DATE: 08/06/2023 PRIMARY CARE PHYSICIAN: Dr. Prerna Grissom II OTHER PHYSICIANS: Dr. Toledo (Cardiology [facility]), Dr. Zhang, Dr. Hernández (Housekeeping Cleaner in [place]), Dr. Stinson (Thoracic Surgery in [place]), Dr. Alberts Portions of this encounter note [...] have increased (more content not included)... Normal [facility] Comprehensive metabolic 2000 panelon 08-06-2023 Albumin [Mass/Vol] 3.6 g/dL Low 3.9 - 4.9 g/dL [facility] ALP [Catalytic activity/Vol] 78 U/L 38 - 113 U/L [facility] ALT [Catalytic activity/Vol] 21 U/L 10 - 54 U/L [facility] Anion gap [Moles/Vol] 10 mmol/L 9 - 18 mmol/L [facility] AST [Catalytic activity/Vol] 17 U/L 14 - 40 U/L [facility] Bilirubin [Mass/Vol] Low 0.2 - 1 .3 mg/dL [facility] Calcium [Mass/Vol] 9.4 mg/dL 8.5 - 10. 2 mg/dL [facility] Chloride [Moles/Vol] 108 mmol/L High 97 - 10 5 mmol/L [facility] CO2 [Moles/Vol] 23 mmol/L 22 - 30 mmol/L [facility] Creatinine [Mass/Vol] 0.85 mg/dL 0.73 - 1.22 mg/dL [facility] Estimated Glomerular Filtration Rate 90 mL/min/1.73m >=60 mL/min/1.73 m [facility] Glucose [Mass/Vol] 126 mg/dL High 74 - 99 mg/dL [facility] Potassium [Moles/Vol] 3.8 mmol/L 3.7 - 5.1 mmol/L [facility] Protein [Mass/Vol] 7.5 g/dL 6.3 - 8.0 g/dL [facility] Sodium [Moles/Vol] 141 mmol/L 136 - 144 mmol/L [facility] Urea nitrogen [Mass/Vol] 31 mg/dL High 9 - 24 mg/dL [facility] Albumin [Mass/Vol] 3.6 g/dL Low 3.9-4.9 [facility] Comment on above: Order Comment: Speci men Type: BLOOD SPECIMEN [facility] Address: [address] [place] [address] Performed By: #### L [id number] #### [facility] CLIA [id number] [address] [place] [address] [place] ALP [Catalytic activity/Vol] 78 U/L Normal 38-113 [facility] Comment on above: Order Comment: Speci men Type: BLOOD SPECIMEN [facility] Address: [address] [place] [address] Performed By: #### L [id number] #### [facility] CLIA [id number] [address] [place] [address] [place] ALT [Catalytic activity/Vol] 21 U/L Normal 10-54 [facility] Comment on above: Order Comment: Speci men Type: BLOOD SPECIMEN [facility] Address: [address] [place] [address] Performed By: #### L [id number] #### [facility] CLIA [id number] [address] [place] [address] [place] Anion gap [Moles/Vol] 10 mmol/L Normal 9-18 [facility] Comment on above: Order Comment: Speci men Type: BLOOD SPECIMEN [facility] Address: [address] [place] [address] Performed By: #### L [id number] #### [facility] CLIA [id number] [address] [place] [address] [place] AST [Catalytic activity/Vol] 17 U/L Normal 14-40 [facility] Comment on above: Order Comment: Speci men Type: BLOOD SPECIMEN [facility] Address: [address] [place], [place] [id number] Performed By: #### L [id number] #### [facility] CLIA [id number] [address] [place] [address] [place] Bilirubin [Mass/Vol] mg/dL Low 0.2-1.3 [facility] Comment on above: Order Comment: Speci men Type: BLOOD SPECIMEN [facility] Address: [address] [place], [place] [address] Performed By: #### L [id number] #### [facility] CLIA [id number] [address] [place] [address] [place] Calcium [Mass/Vol] 9.4 mg/dL Normal 8.5-10.2 [facility] Comment on above: Order Comment: Speci men Type: BLOOD SPECIMEN [facility] Address: [address] [place] [address] Performed By: #### L [id number] #### [facility] CLIA [id number] [address] [place] [address] [place] Chloride [Moles/Vol] 108 mmol/L High 97-105 [facility] Comment on above: Order Comment: Speci men Type: BLOOD SPECIMEN [facility] Address: [address] [place] [address] Performed By: #### L [id number] #### [facility] CLIA [id number] [address] [place] [address] [place] CO2 [Moles/Vol] 23 mmol/L Normal 22-30 [facility] Comment on above: Order Comment: Speci men Type: BLOOD SPECIMEN [facility] Address: [address] [place] [address] Performed By: #### L [id number] #### [facility] CLIA [id number] [address] [place] [address] [place] Creatinine [Mass/Vol] 0.85 mg/dL Normal 0.73-1.22 [facility] Comment on above: Order Comment: Speci men Type: BLOOD SPECIMEN [facility] Address: [address] [place] [address] Performed By: #### L [id number] #### [facility] CLIA [id number] [address] [place] [address] [place] Creatinine and Glomerular filtration rate.predicted panel (S/P/Bld) 90 mL/min/1.73m??? Normal >=60 [facility] Comment on above: Order Comment: Julio gilbert Type: BLOOD SPECIMEN [facility] Address: [address] [place] [address] Result Comment: Carol mated Glomerular Filtration Rate [...] reflect actual GFR. Performed By: #### L [id number] #### [facility] CLIA [id number] [address] [place] [address] [place] Glucose [Mass/Vol] 126 mg/dL High 74-99 [facility] Comment on above: Order Comment: Julio gilbert Type: BLOOD SPECIMEN [facility] Address: [address] [place] [address] Result Comment: The [place] [employer] (ADA) provides guidance for cutoff [...] Standards of Medical Care in Diabetes 2016, [place] [employer]. Diabetes Care. 2016.39(Suppl 1). Performed By: #### L [id number] #### [facility] CLIA [id number] [address] [place] [address] [place] Potassium [Moles/Vol] 3.8 mmol/L Normal 3.7-5.1 [facility] Comment on above: Order Comment: Speci men Type: BLOOD SPECIMEN [facility] Address: [address] [place] [address] Performed By: #### L [id number] #### [facility] CLIA [id number] [address] [place] [address] [place] Protein [Mass/Vol] 7.5 g/dL Normal 6.3-8.0 [facility] Comment on above: Order Comment: Speci men Type: BLOOD SPECIMEN [facility] Address: [address] [place] [address] Performed By: #### L [id number] #### [facility] CLIA [id number] [address] [place] [address] [place] Sodium [Moles/Vol] 141 mmol/L Normal 136-144 [facility] Comment on above: Order Comment: Speci men Type: BLOOD SPECIMEN [facility] Address: [address] [place] [address] Performed By: #### L [id number] #### [facility] CLIA [id number] [address] [place] [address] [place] Urea nitrogen [Mass/Vol] 31 mg/dL High 9-24 [facility] Comment on above: Order Comment: Speci men Type: BLOOD SPECIMEN [facility] Address: [address] [place] [address] Performed By: #### L [id number] #### [facility] CLIA [id number] [address] [place] [address] [place] IMMUNOFIXATION SCREEN, SERUM on 08-06-2023 INTERPRETATION (MPA) Atypical restricted bands are present in the IgG and lambda regions. Consistent with IgG lambda monoclonal gammopathy. Normal [facility] Comment on above: Order Comment: Speci men Type: BLOOD SPECIMENOrdering Facility: [facility] Address: [address] [place] [address] Performed By: #### I [facility] ####[facility]CLIA [id number] [address] [place] MPA RESULT M protein is present. Abnormal No M protein is identified. [facility] Comment on above: Order Comment: Speci men Type: BLOOD SPECIMENOrdering Facility: [facility] Address: [address] [place] [address] Performed By: #### I FESC ####[facility] LABCLIA [id number] [address] [place] STAFF REVIEW (MPA) Reviewed by Dr. Celena Grande MD Normal [facility] Comment on above: Order Comment: Speci men Type: BLOOD SPECIMENOrdering Facility: [facility] Address: [address] [place] [address] Performed By: #### I FESC ####[facility] LABIA [id number] [place] [address] [place] IMMUNOGLOBULINS GAMon 2023 IgA [Mass/Vol] 42 mg/dL Low 70-400 [facility] Comment on above: Order Comment: Speci men Type: BLOOD SPECIMENOrdering Facility: [facility] Address: [address] [place] [address] Performed By: #### S ERIMM ####[facility] LABIA [id number] [place] [address] [place] IgG [Mass/Vol] 2072 mg/dL High 700-1600 [facility] Comment on above: Order Comment: Speci men Type: BLOOD SPECIMENOrdering Facility: [facility] Address: [address] [place] [address] Performed By: #### S ERIMM ####[facility] LABCLIA [id number] [place] [address] [place] IgM [Mass/Vol] 12 mg/dL Low 40-230 [facility] Comment on above: Order Comment: Speci men Type: BLOOD SPECIMENOrdering Facility: [facility] Address: [address] [place] [address] Performed By: #### S ERIMM ####[facility] LABIA [id number] [place] [address] [place] KAPPA/LOMBARDI,FREE,SERon 2023 Immunoglobulin light chains.kappa.free (S) [Mass/Vol] 21.5 mg/L High 3.3-19.4 [facility] Comment on above: Order Comment: Speci men Type: BLOOD SPECIMENOrdering Facility: [facility] Address: [address] [place] [address] Result Comment: Rare ly, increased serum free light chains levels may not be detected or accurately quantified due to prozone phenomenon or in high viscosity samples using this immunoturbidimetric assay. Correlation with other laboratory results and clinical findings is recommended. The [place] Free Light Chain was performed using the Binding Site Optilite immunoturbidimetric method. Result obtained with different assay methods or kits cannot be used interchangeably. Performed By: #### K LFRS ####[facility] LABIA [id number] [place] [address] [place] Immunoglobulin light chains.kappa/Immunoglo bulin light chains.lambda (S) [Mass ratio] 0.24 Low 0.26-1.65 [facility] Comment on above: Order Comment: Speci men Type: BLOOD SPECIMENOrdering Facility: [facility] Address: [address] [place] [address] Performed By: #### K LFRS ####[facility] LABIA [id number] [place] [address] [place] Immunoglobulin light chains.lambda.free [Mass/Vol] 89.8 mg/L High 5.7-26.3 [facility] Comment on above: Order Comment: Speci men Type: BLOOD SPECIMENOrdering Facility: [facility] Address: [address] [place] [address] Result Comment: Rare ly, increased serum free [...] used interchangeably. Performed By: #### K LFRS ####[facility] LABCLIA [id number] [place] [address] [place] PROTEIN ELECTROPHORESIS SERU M (P)on 08-06-2023 Albumin [Mass/Vol] 3.10 g/dL Low 3.43-5.41 [facility] Comment on above: Order Comment: Speci men Type: BLOOD SPECIMEN [facility] Address: [address] [place] [address] Performed By: #### L [id number] #### [facility] CLIA [id number] [address] [place] [address] [place] Alpha 1 globulin Elph [Mass/Vol] 0.45 g/dL High 0.18-0.43 [facility] Comment on above: Order Comment: Speci men Type: BLOOD SPECIMEN [facility] Address: [address] [place] [address] Performed By: #### L [id number] #### [facility] CLIA [id number] [address] [place] [address] [place] Alpha 2 globulin Elph [Mass/Vol] 1.03 g/dL High 0.42-0.98 [facility] Comment on above: Order Comment: Speci men Type: BLOOD SPECIMEN [facility] Address: [address] [place] [address] Performed By: #### L [id number] #### [facility] CLIA [id number] [address] [place] [address] [place] Beta globulin Elph [Mass/Vol] 0.48 g/dL Low 0.61-1.17 [facility] Comment on above: Order Comment: Speci men Type: BLOOD SPECIMEN [facility] Address: [address] [place], [place] [address] Performed By: #### L [id number] #### [facility] CLIA [id number] [address] [place] [address] [place] Gamma globulin Elph [Mass/Vol] 1.75 g/dL High 0.53-1.51 [facility] Comment on above: Order Comment: Speci men Type: BLOOD SPECIMEN [facility] Address: [address] [place] [address] Performed By: #### L [id number] #### [facility] CLIA [id number] [address] [place] [address] [place] INTERPRETATION COMMENT FOR PROTEIN ELECTROPHORESIS See separate immunofixation report for characterization of monoclonal gammopathy. Normal [facility] Comment on above: Order Comment: Speci men Type: BLOOD SPECIMEN [facility] Address: [address] [place] [address] Performed By: #### L [id number] #### [facility] CLIA [id number] [address] [place] [address] [place] M-PROTEIN LOCATION Gamma Fraction 1 Normal [facility] Comment on above: Order Comment: Speci men Type: BLOOD SPECIMEN [facility] Address: [address] [place] [address] Performed By: #### L [id number] #### [facility] CLIA [id number] [address] [place] [address] [place] Protein Fractions [Interp] An M protein is identified on protein electrophoresis. Abnormal No definitive M protein is identified on protein electrophor esis. [facility] Comment on above: Order Comment: Speci men Type: BLOOD SPECIMEN [facility] Address: [address] [place], [place] [address] Performed By: #### L [id number] #### [facility] CLIA [id number] [address] [place] [address] [place] Protein.monoclonal Elph [Mass/Vol] 1.62 g/dL High <=0.00 [facility] Comment on above: Order Comment: Speci men Type: BLOOD SPECIMEN [facility] Address: [address] [place] [address] Performed By: #### L [id number] #### [facility] CLIA [id number] [address] [place] [address] [place] SPE STAFF REVIEW Reviewed by Dr. Celena Grande MD [facility] Comment on above: Order Comment: Speci men Type: BLOOD SPECIMEN [facility] Address: [address] [place] [address] Performed By: #### L [id number] #### [facility] CLIA [id number] [address] [place] [address] [place] Prot SerPl-mCncon 08-06-2023 Protein [Mass/Vol] 6.8 g/dL Normal 6.3-8.0 [facility] Comment on above: Order Comment: Speci men Type: BLOOD SPECIMENOrdering Facility: [facility] Address: [address] [place] [address] Performed By: #### 2 885-2 ####[facility] [id number] [place] [address] [place] CT CHEST WO IVCONon 08-03-[address] CHEST WO IVCON * * *Final Report* * * DATE OF EXAM: Aug 03 2023 9:52AM [facility] 0541 - CT CHEST WO IVCON / [...] any questions regarding this interpretation, please call [phone]. If you are unable to reach us at the number above, please feel free to contact [facility] eRadiology at [phone]. [id number] Normal [facility] CT Chest WO contraston 08-03 IMPRESSION: 1. [...] any questions regarding this interpretation, please call [phone]. If you are unable to reach us at the number above, please feel free to contact [facility]Radiology at [phone]. DIVISION OF RADIOLOGY * * *Final Report* * * DATE OF EXAM: Aug 03 2023 9:52AM [facility] 0541 - CT CHEST WO IVCON / [...] in diameter, stable. DIVISION OF RADIOLOGY Provider, [facility] - 08/03/2023 * * *Final Report* * * DATE OF EXAM: Aug 03 2023 9:52AM [facility] 0541 - CT CHEST WO IVCON / [...] any questions regarding this interpretation, please call [phone]. If you are unable to reach us at the number above, please feel free to contact [facility]Radiology at [phone]. [facility] Radiology Study observation (narrative) [facility] CT Chest WO contrastOrdered By: [facility] Provider on 08-03-2023 [facility] CBC W Auto Differential pane l (Bld)on 07-09-2023 Basophils (Bld) [#/Vol] 10*3/uL Normal <0.11 [facility] Comment on above: Order Comment: Speci men Type: BLOOD SPECIMENOrdering Facility: [facility] Address: [address] [place] [address] Performed By: #### 5 7021-8 ####[facility] LABCLIA [id number] [place] [address] Basophils/100 WBC (Bld) 0.2 % Normal [facility] Comment on above: Order Comment: Speci men Type: BLOOD SPECIMENOrdering Facility: [facility] Address: [address] [place] [address] Performed By: #### 5 7021-8 ####[facility]CLIA [id number] [place] [address] Differential cell count method Nom (Bld) Auto Normal [facility] Comment on above: Order Comment: Speci men Type: BLOOD SPECIMENOrdering Facility: [facility] Address: [address] [place] [address] Performed By: #### 5 7021-8 ####[facility] LABCLIA [id number] [place] [address] Eosinophils (Bld) [#/Vol] 0.12 10*3/uL Normal <0.46 [facility] Comment on above: Order Comment: Speci men Type: BLOOD SPECIMENOrdering Facility: [facility] Address: [address] [place] [address] Performed By: #### 5 7021-8 ####[facility]CLIA [id number] [place] [address] Eosinophils/100 WBC (Bld) 1.3 % Normal [facility] Comment on above: Order Comment: Speci men Type: BLOOD SPECIMENOrdering Facility: [facility] Address: [address] [place] [address] Performed By: #### 5 7021-8 ####[facility] LABCLIA [id number] [place] [address] Erythrocyte distribution width (RBC) [Ratio] 13.6 % Normal 11.5-15.0 [facility] Comment on above: Order Comment: Speci men Type: BLOOD SPECIMENOrdering Facility: [facility] Address: [address] [place] [address] Performed By: #### 5 7021-8 ####[facility] LABCLIA [id number] [place] [address] Hematocrit (Bld) [Volume fraction] 33.5 % Low 39.0-51.0 [facility] Comment on above: Order Comment: Speci men Type: BLOOD SPECIMENOrdering Facility: [facility] Address: [address] [place] [address] Performed By: #### 5 7021-8 ####[facility] LABCLIA [id number] [place] [address] Hemoglobin (Bld) [Mass/Vol] 11.6 g/dL Low 13.0-17.0 [facility] Comment on above: Order Comment: Speci men Type: BLOOD SPECIMENOrdering Facility: [facility] Address: [address] [place] [address] Performed By: #### 5 7021-8 ####[facility] LABCLIA [id number] [place] [address] Immature granulocytes (Bld) [#/Vol] 0.03 10*3/uL Normal <0.10 [facility] Comment on above: Order Comment: Speci men Type: BLOOD SPECIMENOrdering Facility: [facility] Address: [address] [place] [address] Performed By: #### 5 7021-8 ####[facility] LABIA [id number] [place] [address] Immature granulocytes/100 WBC (Bld) 0.3 % Normal [facility] Comment on above: Order Comment: Speci men Type: BLOOD SPECIMENOrdering Facility: [facility] Address: [address] [place] [address] Performed By: #### 5 7021-8 ####[facility] LABCLIA [id number] [place] [address] Lymphocytes (Bld) [#/Vol] 0.96 10*3/uL Low 1.00-4.00 [facility] Comment on above: Order Comment: Speci men Type: BLOOD SPECIMENOrdering Facility: [facility] Address: [address] [place] [address] Performed By: #### 5 7021-8 ####[facility] LABCLIA [id number] [place] [address] Lymphocytes/100 WBC (Bld) 10.5 % Normal [facility] Comment on above: Order Comment: Speci men Type: BLOOD SPECIMENOrdering Facility: [facility] Address: [address] [place] [address] Performed By: #### 5 7021-8 ####[facility] LABCLIA [id number] [place] [address] MCH (RBC) [Entitic mass] 36.0 pg High 26.0-34.0 [facility] Comment on above: Order Comment: Speci men Type: BLOOD SPECIMENOrdering Facility: [facility] Address: [address] [place] [address] Performed By: #### 5 7021-8 ####[facility] LABCLIA [id number] [place] [address] MCHC (RBC) [Mass/Vol] 34.6 g/dL Normal 30.5-36.0 [facility] Comment on above: Order Comment: Speci men Type: BLOOD SPECIMENOrdering Facility: [facility] Address: [address] [place] [address] Performed By: #### 5 7021-8 ####[facility] LABCLIA [id number] [place] [address] MCV (RBC) [Entitic vol] 104.0 fL High 80.0-100.0 [facility] Comment on above: Order Comment: Speci men Type: BLOOD SPECIMENOrdering Facility: [facility] Address: [address] [place] [address] Performed By: #### 5 7021-8 ####[facility] LABCLIA [id number] [place] [address] Monocytes (Bld) [#/Vol] 0.69 10*3/uL Normal <0.87 [facility] Comment on above: Order Comment: Speci men Type: BLOOD SPECIMENOrdering Facility: [facility] Address: [address] [place] [address] Performed By: #### 5 7021-8 ####[facility] LABCLIA [id number] [place] [address] Monocytes/100 WBC (Bld) 7.6 % Normal [facility] Comment on above: Order Comment: Speci men Type: BLOOD SPECIMENOrdering Facility: [facility] Address: [address] [place] [address] Performed By: #### 5 7021-8 ####[facility] LABCLIA [id number] [place] [address] Neutrophils (Bld) [#/Vol] 7.28 10*3/uL Normal 1.45-7.50 [facility] Comment on above: Order Comment: Speci men Type: BLOOD SPECIMENOrdering Facility: [facility] Address: [address] [place] [address] Performed By: #### 5 7021-8 ####[facility] LABCLIA [id number] [place] [address] Neutrophils/100 WBC (Bld) 80.1 % Normal [facility] Comment on above: Order Comment: Speci men Type: BLOOD SPECIMENOrdering Facility: [facility] Address: [address] [place] [address] Performed By: #### 5 7021-8 ####[facility] LABCLIA [id number] [place] [address] Nucleated RBC (Bld) [#/Vol] 10*3/uL Normal <0.01 [facility] Comment on above: Order Comment: Speci men Type: BLOOD SPECIMENOrdering Facility: [facility] Address: [address] [place] [address] Performed By: #### 5 7021-8 ####[facility] LABCLIA [id number] [place] [address] Nucleated RBC/100 WBC (Bld) [Ratio] 0.0 /100 WBC Normal [facility] Comment on above: Order Comment: Speci men Type: BLOOD SPECIMENOrdering Facility: [facility] Address: [address] [place] [address] Performed By: #### 5 7021-8 ####[facility] LABCLIA [id number] [place] [address] Platelet mean volume (Bld) [Entitic vol] 9.8 fL Normal 9.0-12.7 [facility] Comment on above: Order Comment: Speci men Type: BLOOD SPECIMENOrdering Facility: [facility] Address: [address] [place] [address] Performed By: #### 5 7021-8 ####[facility] LABCLIA [id number] [place] [address] Platelets (Bld) [#/Vol] 175 10*3/uL Normal 150-400 [facility] Comment on above: Order Comment: Speci men Type: BLOOD SPECIMENOrdering Facility: [facility] Address: [address] [place] [address] Performed By: #### 5 7021-8 ####[facility] LABCLIA [id number] [place] [address] RBC (Bld) [#/Vol] 3.22 10*6/uL Low 4.20-6.00 [facility] Comment on above: Order Comment: Speci men Type: BLOOD SPECIMENOrdering Facility: [facility] Address: [address] [place] [address] [place] [address] Performed By: #### 5 7021-8 ####[facility] LABCLIA [id number] [place] [address] WBC (Bld) [#/Vol] 9.10 10*3/uL Normal 3.70-11.00 [facility] Comment on above: Order Comment: Speci men Type: BLOOD SPECIMENOrdering Facility: [facility] Address: [place] [address] Performed By: #### 5 7021-8 ####[facility] LABCLIA [id number] [place] [address] CNOVSPon 07-09-2023 CNOVSP Visit (SP) Office (H EMASA) -- RAGHAVENDRA HEARD ([id number]) 1945 M Date Time Provider Department 07/09/23 10:30 AM GLENYS KURTZ During your visit today, we recorded the following information about you: Temperature Pulse Respiration Blood pressure 97 degrees 54/minute 16/minute 134/64 Weight Height 68.4 kg 1.727 m Glenys Kurtz PA-C 07/09/2023 11:44 AM Signed PATIENT NAME: Raghavendra Heard DATE: 07/09/2023 PRIMARY CARE PHYSICIAN: Dr. Prerna Grissom II OTHER PHYSICIANS: Dr. Toledo (Cardiology [facility]), Dr. Zhang, Dr. Hernández (Housekeeping Cleaner in [place]), Dr. Stinson (Thoracic Surgery in [place]), Dr. Alberts (Elements copied from Dr. Becker's [...] groundglass re (more content not included)... Normal [facility] Comprehensive metabolic 2000 panelon 07-09-2023 Albumin [Mass/Vol] 3.7 g/dL Low 3.9-4.9 [facility] Comment on above: Order Comment: Speci men Type: BLOOD SPECIMENOrdering Facility: [facility] Address: [address] [place] [address] Performed By: #### 2 4323-8 ####[facility] LABCLIA [id number] [place] [address] ALP [Catalytic activity/Vol] 67 U/L Normal 38-113 [facility] Comment on above: Order Comment: Speci men Type: BLOOD SPECIMENOrdering Facility: [facility] Address: [address] [place] [address] Performed By: #### 2 4323-8 ####[facility] LABCLIA [id number] [place] [address] ALT [Catalytic activity/Vol] 12 U/L Normal 10-54 [facility] Comment on above: Order Comment: Speci men Type: BLOOD SPECIMENOrdering Facility: [facility] Address: [address] [place] [address] Performed By: #### 2 4323-8 ####[facility] LABCLIA [id number] [place] [address] Anion gap [Moles/Vol] 8 mmol/L Low 9-18 [facility] Comment on above: Order Comment: Speci men Type: BLOOD SPECIMENOrdering Facility: [facility] Address: [address] [place] [address] Performed By: #### 2 4323-8 ####[facility] LABCLIA [id number] [place] [address] AST [Catalytic activity/Vol] 14 U/L Normal 14-40 [facility] Comment on above: Order Comment: Speci men Type: BLOOD SPECIMENOrdering Facility: [facility] Address: [address] [place] [address] Performed By: #### 2 4323-8 ####[facility] LABCLIA [id number] [place] [address] Bilirubin [Mass/Vol] 0.2 mg/dL Normal 0.2-1.3 [facility] Comment on above: Order Comment: Speci men Type: BLOOD SPECIMENOrdering Facility: [facility] Address: [address] [place] [address] Performed By: #### 2 4323-8 ####[facility] LABCLIA [id number] [place] [address] Calcium [Mass/Vol] 9.2 mg/dL Normal 8.5-10.2 [facility] Comment on above: Order Comment: Speci men Type: BLOOD SPECIMENOrdering Facility: [facility] Address: [address] [place] [address] Performed By: #### 2 4323-8 ####[facility] LABCLIA [id number] [place] [address] Chloride [Moles/Vol] 107 mmol/L High 97-105 [facility] Comment on above: Order Comment: Speci men Type: BLOOD SPECIMENOrdering Facility: [facility] Address: [address] [place] [address] Performed By: #### 2 4323-8 ####[facility] LABCLIA [id number] [place] [address] CO2 [Moles/Vol] 27 mmol/L Normal 22-30 [facility] Comment on above: Order Comment: Speci men Type: BLOOD SPECIMENOrdering Facility: [facility] Address: [address] [place] [address] Performed By: #### 2 4323-8 ####[facility] LABCLIA [id number] [place] [address] Creatinine [Mass/Vol] 0.84 mg/dL Normal 0.73-1.22 [facility] Comment on above: Order Comment: Speci men Type: BLOOD SPECIMENOrdering Facility: [facility] Address: [address] [place] [address] Performed By: #### 2 4323-8 ####[facility] LABCLIA [id number] [place] [address] Creatinine and Glomerular filtration rate.predicted panel (S/P/Bld) 90 mL/min/1.73m??? Normal >=60 [facility] Comment on above: Order Comment: Julio men Type: BLOOD SPECIMENOrdering Facility: [facility] Address: [address] [place] [address] Result Comment: Carol mated Glomerular Filtration Rate [...] actual GFR. Performed By: #### 2 4323-8 ####[facility] LABCLIA [id number] [place] [address] Glucose [Mass/Vol] 133 mg/dL High 74-99 [facility] Comment on above: Order Comment: Diannavirgil gilbert Type: BLOOD SPECIMENOrdering Facility: [facility] Address: [address] [place] [address] Result Comment: The [place] [employer] (ADA) provides guidance for cutoff [...] Standards of Medical Care in Diabetes 2016, [place] [employer]. Diabetes Care. 2016.39(Suppl 1). Performed By: #### 2 4323-8 ####[facility] LABCLIA [id number] [place] [address] Potassium [Moles/Vol] 3.8 mmol/L Normal 3.7-5.1 [facility] Comment on above: Order Comment: Speci men Type: BLOOD SPECIMENOrdering Facility: [facility] Address: [address] [place] [address] Performed By: #### 2 4323-8 ####[facility] LABCLIA [id number] [place] [address] Protein [Mass/Vol] 7.2 g/dL Normal 6.3-8.0 [facility] Comment on above: Order Comment: Speci men Type: BLOOD SPECIMENOrdering Facility: [facility] Address: [address] [place] [address] Performed By: #### 2 4323-8 ####[facility] LABCLIA [id number] [place] [address] Sodium [Moles/Vol] 142 mmol/L Normal 136-144 [facility] Comment on above: Order Comment: Speci men Type: BLOOD SPECIMENOrdering Facility: [facility] Address: [address] [place] [address] Performed By: #### 2 4323-8 ####[facility] LABCLIA [id number] [place] [address] Urea nitrogen [Mass/Vol] 20 mg/dL Normal 9-24 [facility] Comment on above: Order Comment: Speci men Type: BLOOD SPECIMENOrdering Facility: [facility] Address: [address] [place] [address] Performed By: #### 2 4323-8 ####[facility] LABCLIA [id number] [place] [address] CBC W Auto Differential pane l (Bld)on 05-14-2023 Basophils (Bld) [#/Vol] <0.11 k/uL [facility] Basophils/100 WBC (Bld) 0.3 % [facility] Differential cell count method Nom (Bld) Auto [facility] Eosinophils (Bld) [#/Vol] 0.07 10*3/uL <0.46 k/uL [facility] Eosinophils/100 WBC (Bld) 1.0 % [facility] Erythrocyte distribution width (RBC) [Ratio] 17.1 % High 11.5 - 15.0 % [facility] Hematocrit (Bld) [Volume fraction] 33.0 % Low 39.0 - 51.0 % [facility] Hemoglobin (Bld) [Mass/Vol] 11.0 g/dL Low 13.0 - 17.0 g/dL [facility] Immature granulocytes (Bld) [#/Vol] 0.03 10*3/uL <0.10 k/uL [facility] Immature granulocytes/100 WBC (Bld) 0.4 % [facility] Lymphocytes (Bld) [#/Vol] 1.10 10*3/uL 1.00 - 4.00 k/uL [facility] Lymphocytes/100 WBC (Bld) 16.4 % [facility] MCH (RBC) [Entitic mass] 34.7 pg High 26.0 - 34.0 pg [facility] MCHC (RBC) [Mass/Vol] 33.3 g/dL 30.5 - 36.0 g/dL [facility] MCV (RBC) [Entitic vol] 104.1 fL High 80.0 - 100.0 fL [facility] Monocytes (Bld) [#/Vol] 0.30 10*3/uL <0.87 k/uL [facility] Monocytes/100 WBC (Bld) 4.5 % [facility] Neutrophils (Bld) [#/Vol] 5.17 10*3/uL 1.45 - 7.50 k/uL [facility] Neutrophils/100 WBC (Bld) 77.4 % [facility] Nucleated RBC (Bld) [#/Vol] <0.01 k/uL [facility] Nucleated RBC/100 WBC (Bld) [Ratio] 0.0 /100 WBC [facility] Platelet mean volume (Bld) [Entitic vol] 9.7 fL 9.0 - 12.7 fL [facility] Platelets (Bld) [#/Vol] 228 10*3/uL 150 - 400 k/uL [facility] RBC (Bld) [#/Vol] 3.17 10*6/uL Low 4.20 - 6.0 0 m/uL [facility] WBC (Bld) [#/Vol] 6.69 10*3/uL 3.70 - 11.00 k/uL [facility] Basophils (Bld) [#/Vol] 10*3/uL Normal <0.11 [facility] Comment on above: Order Comment: Speci men Type: BLOOD SPECIMENOrdering Facility: [facility] Address: [address] [place] [address] Performed By: #### 5 7021-8 ####[facility] LABCLIA [id number] [place] [address] Basophils/100 WBC (Bld) 0.3 % Normal [facility] Comment on above: Order Comment: Speci men Type: BLOOD SPECIMENOrdering Facility: [facility] Address: [address] [place] [address] Performed By: #### 5 7021-8 ####[facility] LABCLIA [id number] [place] [address] Differential cell count method Nom (Bld) Auto Normal [facility] Comment on above: Order Comment: Speci men Type: BLOOD SPECIMENOrdering Facility: [facility] Address: [address] [place] [address] Performed By: #### 5 7021-8 ####[facility] LABCLIA [id number] [place] [address] Eosinophils (Bld) [#/Vol] 0.07 10*3/uL Normal <0.46 [facility] Comment on above: Order Comment: Speci men Type: BLOOD SPECIMENOrdering Facility: [facility] Address: [address] [place] [address] Performed By: #### 5 7021-8 ####[facility] LABCLIA [id number] [place] [address] Eosinophils/100 WBC (Bld) 1.0 % Normal [facility] Comment on above: Order Comment: Speci men Type: BLOOD SPECIMENOrdering Facility: [facility] Address: [address] [place] [address] Performed By: #### 5 7021-8 ####[facility] LABCLIA [id number] [place] [address] Erythrocyte distribution width (RBC) [Ratio] 17.1 % High 11.5-15.0 [facility] Comment on above: Order Comment: Speci men Type: BLOOD SPECIMENOrdering Facility: [facility] Address: [address] [place] [address] Performed By: #### 5 7021-8 ####[facility] LABCLIA [id number] [place] [address] Hematocrit (Bld) [Volume fraction] 33.0 % Low 39.0-51.0 [facility] Comment on above: Order Comment: Speci men Type: BLOOD SPECIMENOrdering Facility: [facility] Address: [address] [place] [address] Performed By: #### 5 7021-8 ####[facility] LABCLIA [id number] [place] [address] Hemoglobin (Bld) [Mass/Vol] 11.0 g/dL Low 13.0-17.0 [facility] Comment on above: Order Comment: Speci men Type: BLOOD SPECIMENOrdering Facility: [facility] Address: [address] [place] [address] Performed By: #### 5 7021-8 ####[facility] LABCLIA [id number] [place] [address] Immature granulocytes (Bld) [#/Vol] 0.03 10*3/uL Normal <0.10 [facility] Comment on above: Order Comment: Speci men Type: BLOOD SPECIMENOrdering Facility: [facility] Address: [address] [place] [address] Performed By: #### 5 7021-8 ####[facility] LABCLIA [id number] [place] [address] Immature granulocytes/100 WBC (Bld) 0.4 % Normal [facility] Comment on above: Order Comment: Speci men Type: BLOOD SPECIMENOrdering Facility: [facility] Address: [address] [place] [address] Performed By: #### 5 7021-8 ####[facility] LABCLIA [id number] [place] [address] Lymphocytes (Bld) [#/Vol] 1.10 10*3/uL Normal 1.00-4.00 [facility] Comment on above: Order Comment: Speci men Type: BLOOD SPECIMENOrdering Facility: [facility] Address: [address] [place] [address] Performed By: #### 5 7021-8 ####[facility] LABIA [id number] [place] [address] Lymphocytes/100 WBC (Bld) 16.4 % Normal [facility] Comment on above: Order Comment: Speci men Type: BLOOD SPECIMENOrdering Facility: [facility] Address: [address] [place] [address] Performed By: #### 5 7021-8 ####[facility] LABIA [id number] [place] [address] MCH (RBC) [Entitic mass] 34.7 pg High 26.0-34.0 [facility] Comment on above: Order Comment: Speci men Type: BLOOD SPECIMENOrdering Facility: [facility] Address: [address] [place] [address] Performed By: #### 5 7021-8 ####[facility] LABIA [id number] [place] [address] MCHC (RBC) [Mass/Vol] 33.3 g/dL Normal 30.5-36.0 [facility] Comment on above: Order Comment: Speci men Type: BLOOD SPECIMENOrdering Facility: [facility] Address: [address] [place] [address] Performed By: #### 5 7021-8 ####[facility] LABCLIA [id number] [place] [address] MCV (RBC) [Entitic vol] 104.1 fL High 80.0-100.0 [facility] Comment on above: Order Comment: Speci men Type: BLOOD SPECIMENOrdering Facility: [facility] Address: [address] [place] [address] Performed By: #### 5 7021-8 ####[facility] LABCLIA [id number] [place] [address] Monocytes (Bld) [#/Vol] 0.30 10*3/uL Normal <0.87 [facility] Comment on above: Order Comment: Speci men Type: BLOOD SPECIMENOrdering Facility: [facility] Address: [address] [place] [address] Performed By: #### 5 7021-8 ####[facility] LABCLIA [id number] [place] [address] Monocytes/100 WBC (Bld) 4.5 % Normal [facility] Comment on above: Order Comment: Speci men Type: BLOOD SPECIMENOrdering Facility: [facility] Address: [address] [place] [address] Performed By: #### 5 7021-8 ####[facility] LABCLIA [id number] [place] [address] Neutrophils (Bld) [#/Vol] 5.17 10*3/uL Normal 1.45-7.50 [facility] Comment on above: Order Comment: Speci men Type: BLOOD SPECIMENOrdering Facility: [facility] Address: [address] [place] [address] Performed By: #### 5 7021-8 ####[facility] LABCLIA [id number] [place] [address] Neutrophils/100 WBC (Bld) 77.4 % Normal [facility] Comment on above: Order Comment: Speci men Type: BLOOD SPECIMENOrdering Facility: [facility] Address: [address] [place] [address] Performed By: #### 5 7021-8 ####[facility] LABCLIA [id number] [place] [address] Nucleated RBC (Bld) [#/Vol] 10*3/uL Normal <0.01 [facility] Comment on above: Order Comment: Speci men Type: BLOOD SPECIMENOrdering Facility: [facility] Address: [address] [place] [address] Performed By: #### 5 7021-8 ####[facility] LABCLIA [id number] [place] [address] Nucleated RBC/100 WBC (Bld) [Ratio] 0.0 /100 WBC Normal [facility] Comment on above: Order Comment: Speci men Type: BLOOD SPECIMENOrdering Facility: [facility] Address: [address] [place] [address] Performed By: #### 5 7021-8 ####[facility] LABCLIA [id number] [place] [address] Platelet mean volume (Bld) [Entitic vol] 9.7 fL Normal 9.0-12.7 [facility] Comment on above: Order Comment: Speci men Type: BLOOD SPECIMENOrdering Facility: [facility] Address: [address] [place] [address] Performed By: #### 5 7021-8 ####[facility] LABCLIA [id number] [place] [address] Platelets (Bld) [#/Vol] 228 10*3/uL Normal 150-400 [facility] Comment on above: Order Comment: Speci men Type: BLOOD SPECIMENOrdering Facility: [facility] Address: [address] [place] [address] Performed By: #### 5 7021-8 ####[facility] LABCLIA [id number] [place] [address] RBC (Bld) [#/Vol] 3.17 10*6/uL Low 4.20-6.00 [facility] Comment on above: Order Comment: Speci men Type: BLOOD SPECIMENOrdering Facility: [facility] Address: [address] [place] [address] Performed By: #### 5 7021-8 ####[facility] LABIA [id number] [place] [address] WBC (Bld) [#/Vol] 6.69 10*3/uL Normal 3.70-11.00 [facility] Comment on above: Order Comment: Speci men Type: BLOOD SPECIMENOrdering Facility: [facility] Address: [address] [place] [address] Performed By: #### 5 7021-8 ####[facility] [id number] [place] [address] CNOVSPon 05-14-2023 CNOVSP Visit (SP) Office (H EMASA) -- RAGHAVENDRA HEARD ([id number]) 1945 M Date Time Provider Department 05/14/23 10:00 AM JA BECKER During your visit today, we recorded the following information about you: Temperature Pulse Respiration Blood pressure 97.6 degrees 55/minute 18/minute 136/64 Weight Height 69.3 kg 1.727 m Ja Becker MD 05/14/2023 9:39 PM Signed PATIENT NAME: Raghavendra Heard DATE: 05/14/2023 PRIMARY CARE PHYSICIAN: Dr. Prerna Grissom II OTHER PHYSICIANS: Dr. Toledo (Cardiology [facility]), Dr. Dr. Edgar Zhang (Housekeeping Cleaner in [place]), Dr. Stinson (Thoracic Surgery in [place]), Dr. Alberts Portions of this encounter note [...] prednisone. Subsequently he was seen by his learning operations specialist and new bronchodilators were added. The patient [...] Lymph n (more content not included)... Normal [facility] Comprehensive metabolic 2000 panelon 05-14-2023 Albumin [Mass/Vol] 3.7 g/dL Low 3.9 - 4.9 g/dL [facility] ALP [Catalytic activity/Vol] 67 U/L 38 - 113 U/L [facility] ALT [Catalytic activity/Vol] 19 U/L 10 - 54 U/L [facility] Anion gap [Moles/Vol] 8 mmol/L Low 9 - 18 mmol/L [facility] AST [Catalytic activity/Vol] 16 U/L 14 - 40 U/L [facility] Bilirubin [Mass/Vol] 0.2 mg/dL 0.2 - 1 .3 mg/dL [facility] Calcium [Mass/Vol] 9.3 mg/dL 8.5 - 10. 2 mg/dL [facility] Chloride [Moles/Vol] 105 mmol/L 97 - 10 5 mmol/L [facility] CO2 [Moles/Vol] 27 mmol/L 22 - 30 mmol/L [facility] Creatinine [Mass/Vol] 0.88 mg/dL 0.73 - 1.22 mg/dL [facility] Estimated Glomerular Filtration Rate 89 mL/min/1.73m >=60 mL/min/1.73 m [facility] Glucose [Mass/Vol] 141 mg/dL High 74 - 99 mg/dL [facility] Potassium [Moles/Vol] 4.1 mmol/L 3.7 - 5.1 mmol/L [facility] Protein [Mass/Vol] 7.1 g/dL 6.3 - 8.0 g/dL [facility] Sodium [Moles/Vol] 140 mmol/L 136 - 144 mmol/L [facility] Urea nitrogen [Mass/Vol] 30 mg/dL High 9 - 24 mg/dL [facility] Albumin [Mass/Vol] 3.7 g/dL Low 3.9-4.9 [facility] Comment on above: Order Comment: Speci men Type: BLOOD SPECIMENOrdering Facility: [facility] Address: [address] [place] [address] Performed By: #### 2 4323-8 ####[facility] LABCLIA [id number] [place] [address] ALP [Catalytic activity/Vol] 67 U/L Normal 38-113 [facility] Comment on above: Order Comment: Speci men Type: BLOOD SPECIMENOrdering Facility: [facility] Address: [address] [place] [address] Performed By: #### 2 4323-8 ####[facility] LABCLIA [id number] [place] [address] ALT [Catalytic activity/Vol] 19 U/L Normal 10-54 [facility] Comment on above: Order Comment: Speci men Type: BLOOD SPECIMENOrdering Facility: [facility] Address: [address] [place] [address] Performed By: #### 2 4323-8 ####[facility] LABCLIA [id number] [place] [address] Anion gap [Moles/Vol] 8 mmol/L Low 9-18 [facility] Comment on above: Order Comment: Speci men Type: BLOOD SPECIMENOrdering Facility: [facility] Address: [address] [place] [address] Performed By: #### 2 4323-8 ####[facility] LABCLIA [id number] [place] [address] AST [Catalytic activity/Vol] 16 U/L Normal 14-40 [facility] Comment on above: Order Comment: Speci men Type: BLOOD SPECIMENOrdering Facility: [facility] Address: [address] [place] [address] Performed By: #### 2 4323-8 ####[facility] LABCLIA [id number] [place] [address] Bilirubin [Mass/Vol] 0.2 mg/dL Normal 0.2-1.3 [facility] Comment on above: Order Comment: Speci men Type: BLOOD SPECIMENOrdering Facility: [facility] Address: [address] [place] [address] Performed By: #### 2 4323-8 ####[facility] LABCLIA [id number] [place] [address] Calcium [Mass/Vol] 9.3 mg/dL Normal 8.5-10.2 [facility] Comment on above: Order Comment: Speci men Type: BLOOD SPECIMENOrdering Facility: [facility] Address: [address] [place] [address] Performed By: #### 2 4323-8 ####[facility] LABCLIA [id number] [place] [address] Chloride [Moles/Vol] 105 mmol/L Normal 97-105 [facility] Comment on above: Order Comment: Speci men Type: BLOOD SPECIMENOrdering Facility: [facility] Address: [address] [place] [address] Performed By: #### 2 4323-8 ####[facility] LABCLIA [id number] [place] [address] CO2 [Moles/Vol] 27 mmol/L Normal 22-30 [facility] Comment on above: Order Comment: Speci men Type: BLOOD SPECIMENOrdering Facility: [facility] Address: [address] [place] [address] Performed By: #### 2 4323-8 ####[facility] LABCLIA [id number] [place] [address] Creatinine [Mass/Vol] 0.88 mg/dL Normal 0.73-1.22 [facility] Comment on above: Order Comment: Speci men Type: BLOOD SPECIMENOrdering Facility: [facility] Address: [address] [place] [address] Performed By: #### 2 4323-8 ####[facility] LABIA [id number] [place] [address] Creatinine and Glomerular filtration rate.predicted panel (S/P/Bld) 89 mL/min/1.73m??? Normal >=60 [facility] Comment on above: Order Comment: Speci men Type: BLOOD SPECIMENOrdering Facility: [facility] Address: [address] [place] [address] Result Comment: Carol mated Glomerular Filtration Rate [...] actual GFR. Performed By: #### 2 4323-8 ####[facility] LABCLIA [id number] [place] [address] Glucose [Mass/Vol] 141 mg/dL High 74-99 [facility] Comment on above: Order Comment: Julio gilbert Type: BLOOD SPECIMENOrdering Facility: [facility] Address: [address] [place] [address] Result Comment: The [place] [employer] (ADA) provides guidance for cutoff [...] Standards of Medical Care in Diabetes 2016, [place] [employer]. Diabetes Care. 2016.39(Suppl 1). Performed By: #### 2 4323-8 ####[facility] LABCLIA [id number] [place] [address] Potassium [Moles/Vol] 4.1 mmol/L Normal 3.7-5.1 [facility] Comment on above: Order Comment: Julio gilbert Type: BLOOD SPECIMENOrdering Facility: [facility] Address: [address] [place] [address] Performed By: #### 2 4323-8 ####[facility] LABCLIA [id number] [place] [address] Protein [Mass/Vol] 7.1 g/dL Normal 6.3-8.0 [facility] Comment on above: Order Comment: Speci men Type: BLOOD SPECIMENOrdering Facility: [facility] Address: [address] [place] [address] Performed By: #### 2 4323-8 ####[facility] LABCLIA [id number] [place] [address] Sodium [Moles/Vol] 140 mmol/L Normal 136-144 [facility] Comment on above: Order Comment: Speci men Type: BLOOD SPECIMENOrdering Facility: [facility] Address: [address] [place] [address] Performed By: #### 2 4323-8 ####[facility] LABCLIA [id number] [place] [address] Urea nitrogen [Mass/Vol] 30 mg/dL High 9-24 [facility] Comment on above: Order Comment: Speci men Type: BLOOD SPECIMENOrdering Facility: [facility] Address: [address] [place] [address] Performed By: #### 2 4323-8 ####[facility] LABCLIA [id number] [place] [address] IMMUNOFIXATION SCREEN, SERUM on 05-14-2023 INTERPRETATION (MPA) Atypical restricted bands are present in the IgG and lambda regions. Consistent with IgG lambda monoclonal gammopathy. Normal [facility] Comment on above: Order Comment: Speci men Type: BLOOD SPECIMENOrdering Facility: [facility] Address: [address] [place] [address] Performed By: #### I [facility] ####[facility] LABCLIA [id number] [facility] [id number] [address] [place] MPA RESULT M protein is present. Abnormal No M protein is identified. [facility] Comment on above: Order Comment: Speci men Type: BLOOD SPECIMENOrdering Facility: [facility] Address: [address] [place] [address] Performed By: #### I FESC ####[facility] LABCLIA [id number] [address] [place] STAFF REVIEW (MPA) Reviewed by Jordana Guallpa MD Normal [facility] Comment on above: Order Comment: Speci men Type: BLOOD SPECIMENOrdering Facility: [facility] Address: [address] [place] [address] Performed By: #### I FES ####[facility] LABCLIA [id number] [place] [address] [place] IMMUNOGLOBULINS GAMon 2022 IgA [Mass/Vol] 42 mg/dL Low 70-400 [facility] Comment on above: Order Comment: Speci men Type: BLOOD SPECIMENOrdering Facility: [facility] Address: [address] [place] [address] Performed By: #### S ERIMM ####[facility] LABCLIA [id number] [place] [address] [place] IgG [Mass/Vol] 1823 mg/dL High 700-1600 [facility] Comment on above: Order Comment: Speci men Type: BLOOD SPECIMENOrdering Facility: [facility] Address: [address] [place] [address] Performed By: #### S ERIMM ####[facility] LABCLIA [id number] [place] [address] [place] IgM [Mass/Vol] 11 mg/dL Low 40-230 [facility] Comment on above: Order Comment: Speci men Type: BLOOD SPECIMENOrdering Facility: [facility] Address: [address] [place] [address] Performed By: #### S ERIMM ####[facility] LABCLIA [id number] [place] [address] [place] KAPPA/LOMBARDI,FREE,SERon 2022 Immunoglobulin light chains.kappa.free (S) [Mass/Vol] 19.6 mg/L High 3.3-19.4 [facility] Comment on above: Order Comment: Speci men Type: BLOOD SPECIMENOrdering Facility: [facility] Address: [address] [place] [address] Result Comment: Rare ly, increased serum free light chains levels may not be detected or accurately quantified due to prozone phenomenon or in high viscosity samples using this immunoturbidimetric assay. Correlation with other laboratory results and clinical findings is recommended. The [place] Free Light Chain was performed using the Binding Site Optilite immunoturbidimetric method. Result obtained with different assay methods or kits cannot be used interchangeably. Performed By: #### K LFRS ####[facility] LABCLIA [id number] [place] [address] [place] Immunoglobulin light chains.kappa/Immunoglo bulin light chains.lambda (S) [Mass ratio] 0.49 Normal 0.26-1.65 [facility] Comment on above: Order Comment: Speci [facility] Type: BLOOD SPECIMENOrdering Facility: [facility] Address: [address] [place] [address] Performed By: #### K LFRS ####[facility] LABCLIA [id number] [place] [address] [place] Immunoglobulin light chains.lambda.free [Mass/Vol] 40.1 mg/L High 5.7-26.3 [facility] Comment on above: Order Comment: Speci men Type: BLOOD SPECIMENOrdering Facility: [facility] Address: [address] [place] [address] Result Comment: Rare ly, increased serum free [...] used interchangeably. Performed By: #### K LFRS ####[facility] LABIA [id number] [place] [address] [place] PROTEIN ELECTROPHORESIS SERU M WITH KAYLA (P)on 05-14-2023 Albumin [Mass/Vol] 3.38 g/dL Low 3.43-5.41 [facility] Comment on above: Order Comment: Speci men Type: BLOOD SPECIMENOrdering Facility: [facility] Address: [address] [place] [address] Performed By: #### L [id number] ####[facility] LABIA [id number] [place] [address] [place] Alpha 1 globulin Elph [Mass/Vol] 0.35 g/dL Normal 0.18-0.43 [facility] Comment on above: Order Comment: Speci men Type: BLOOD SPECIMENOrdering Facility: [facility] Address: [address] [place] [address] Performed By: #### L [id number] ####[facility] LABIA [id number] [place] [address] [place] Alpha 2 globulin Elph [Mass/Vol] 0.90 g/dL Normal 0.42-0.98 [facility] Comment on above: Order Comment: Speci men Type: BLOOD SPECIMENOrdering Facility: [facility] Address: [address] [place] [address] Performed By: #### L [id number] ####[facility] LABIA [id number] [place] [address] [place] Beta globulin Elph [Mass/Vol] 0.51 g/dL Low 0.61-1.17 [facility] Comment on above: Order Comment: Speci men Type: BLOOD SPECIMENOrdering Facility: [facility] Address: [address] [place] [address] Performed By: #### L [id number] ####[facility] LABIA [id number] [place] [address] [place] COMMENT (SERUM PROT ELECTRO) Monoclonal Protein analysis (immunofixation) is not indicated. Normal [facility] Comment on above: Order Comment: Speci men Type: BLOOD SPECIMENOrdering Facility: [facility] Address: [address] [place] [address] Performed By: #### L [id number] ####[facility] LABIA [id number] [place] [address] [place] Gamma globulin Elph [Mass/Vol] 1.55 g/dL High 0.53-1.51 [facility] Comment on above: Order Comment: Speci men Type: BLOOD SPECIMENOrdering Facility: [facility] Address: [address] [place] [address] Performed By: #### L [id number] ####[facility] LABIA [id number] [address] INTERPRETATION COMMENT FOR PROTEIN ELECTROPHORESIS See separate immunofixation report for characterization of monoclonal gammopathy. Normal [facility] Comment on above: Order Comment: Speci men Type: BLOOD SPECIMENOrdering Facility: [facility] Address: [address] [place] [address] Performed By: #### L [id number] ####[facility] LABCLIA [id number] [address] [place] M-PROTEIN LOCATION Gamma Fraction 1 Normal [facility] Comment on above: Order Comment: Speci men Type: BLOOD SPECIMENOrdering Facility: [facility] Address: [address] [place] [address] Performed By: #### L [id number] ####[facility] LABIA [id number] [address] [place] Protein Fractions [Interp] An M protein is identified on protein electrophoresis. Abnormal No definitive M protein is identified on protein electrophor esis. [facility] Comment on above: Order Comment: Speci men Type: BLOOD SPECIMENOrdering Facility: [facility] Address: [address] [place] [address] Performed By: #### L [id number] ####[facility] LABCLIA [id number] [place] [address] [place] Protein.monoclonal Elph [Mass/Vol] 1.36 g/dL High <=0.00 [facility] Comment on above: Order Comment: Speci men Type: BLOOD SPECIMENOrdering Facility: [facility] Address: [address] [place] [address] Performed By: #### L [id number] ####[facility] LABCLIA [id number] [place] [address] [place] SPE STAFF REVIEW Reviewed by Jordana Guallpa MD [facility] Comment on above: Order Comment: Speci men Type: BLOOD SPECIMENOrdering Facility: [facility] Address: [address] [place] [address] Performed By: #### L [id number] ####[facility] LABCLIA [id number] [place] [address] [place] PROTEIN TOTAL BLDon 05-14-20 Protein [Mass/Vol] 6.7 g/dL 6.3 - 8.0 g/dL [facility] Prot SerPl-mCncon 05-14-2023 Protein [Mass/Vol] 6.7 g/dL Normal 6.3-8.0 [facility] Comment on above: Order Comment: Speci men Type: BLOOD SPECIMENOrdering Facility: [facility] Address: [address] [place] [address] Performed By: #### 2 885-2 ####[facility] LABCLIA [id number] [place] [address] [place] CT CHEST WO IVCONon 05-07-[address] CHEST WO IVCON * * *Final Report* * * DATE OF EXAM: May 07 2023 9:36AM [facility] 0541 - CT CHEST WO IVCON / [...] any questions regarding this interpretation, please call [phone]. If you are unable to reach us at the number above, please feel free to contact [facility] eRadiology at [phone]. [id number] Normal [facility] CT Chest WO contraston 05-07 IMPRESSION: 1. [...] any questions regarding this interpretation, please call [phone]. If you are unable to reach us at the number above, please feel free to contact [facility] eRadiology at [phone]. DIVISION OF RADIOLOGY * * *Final Report* * * DATE OF EXAM: May 07 2023 9:36AM [facility] 0541 - CT CHEST WO IVCON / [...] in diameter, stable. DIVISION OF RADIOLOGY Provider, [facility] - 05/07/2023 * * *Final Report* * * DATE OF EXAM: May 07 2023 9:36AM [facility] 0541 - CT CHEST WO IVCON / [...] any questions regarding this interpretation, please call [phone]. If you are unable to reach us at the number above, please feel free to contact [facility] eRadiology at [phone]. [facility] Radiology Study observation (narrative) [facility] CT Chest WO contrastOrdered By: Ccf Provider on 05-07-2023 [facility] Devonte 05-04-2023 JCN Telephone (HEMASA) -- MARANDARAGHAVENDRA Silvio ([id number]) 1945 M Date Time Provider Department 05/04/23 RHONA RUIZ During your visit today, we recorded the following information about you: Rhona Ruzi RN 05/04/2023 11:46 AM Signed Pt requesting to have his Meloxicam refilled. Per pt's record, it appears the pt should have refills remaining. Spoke w/ pharmacist @ [facility] in [place]. Pharmacist confirms that they have a script w/ refills on file. Notes that they are almost done filling it. Pt notified and verbalizes understanding. Rhona Ruiz RN Allergies As of Date: 05/04/2023 (No Known Allergies) Date Reviewed: 05/03/2023 Reviewed by: Lexus Alberts DO - Fully Assessed Reason for Visit: Care Coordination [5660] Cmt: Medication Question Prescriptions as of 05/04/2023 [...] Status:Closed by RHONA RUIZ on 05/04/23 Normal [facility] Office Visiton 05-04-2023 Follow-up visit [id number] Raghavendra Heard 1945 M Date Provider Department Center 05/04/2023 DejaLEO TOLEDO [facility] Family History Problem Relation Age of Onset Diabetes Other Other Other Family Status - Relation Status Age at Other Level of Service:[address]385 [place] OFFICE/OUTPATIENT ESTABLISHED MOD MDM 30-39 MIN Normal [facility] CNOVon 05-03-2023 CNOV Office Visit (PAMAVN ) -- RAGHAVENDRA HEARD ([id number]) 1945 M Date Time Provider Department 05/03/23 11:00 AM LEXUS ALBERTS During your visit today, we recorded the following information about you: Pulse Blood pressure Weight Height 50/minute 150/74 68.9 kg 1.727 m Lexus Alberts DO 05/03/2023 1:08 PM Signed [facility] Follow Up Visit May SUBJECTIVE: Raghavendra Heard a 78 year old presents to [facility] Pain Management Department, accompanied by spouse, radha [...] twice daily, refill given. Continue Gabapentin and Quitaque per Dr. Becker. RTC in 1 year [...] supervised home exercise program (HEP): No 5. 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 Medical devises: No 2. Acupuncture: No 3. Tens unit: No 4. Prescription pain medication: Yes 5. NSAIDS: No Do (more content not included)... Normal [facility] ABO/Rh Retypeon 02-21-2023 ABO/RH Recheck Result Positive Normal [facility] Comment on above: Result Comment: PERF ORMED BY: [facility] [address] [place] [address] PATHOLOGIST [employer] INVESTIGATOR PREET MUNOZ M.D. Hemoglobin and Hematocriton 02-20-2023 Hematocrit (Bld) [Volume fraction] 25.0 % Low 38.8-50.0 [facility] Comment on above: Result Comment: PERF ORMED BY: [address] [address] PATHOLOGIST [employer] INVESTIGATOR PREET MUNOZ M.D. Performed By: #### H H #### [facility] [address] [place] [address] [facility] Hemoglobin (Bld) [Mass/Vol] 8.4 g/dL Low 13.0-17.0 [facility] Comment on above: Performed By: #### H H #### [address] [address] [facility] LeukoReduced RBCon LeukoReduced RBC TRANSFUSED 02/21/23 1028 [facility] Type and Screenon 02-20-2023 ABO and Rh group Nom (Bld) Blood group A Rh(D) positive [facility] Comment on above: Order Comment: Trans fuse now? N Result Comment: PERF ORMED BY: [address] [address] PATHOLOGIST [employer] INVESTIGATOR PREET MUNOZ M.D. Basic metabolic 2000 panelon 02-19-2023 Anion gap [Moles/Vol] 9 mmol/L 9 - 18 mmol/L [facility] Calcium [Mass/Vol] 8.8 mg/dL 8.5 - 10. 2 mg/dL [facility] Chloride [Moles/Vol] 103 mmol/L 97 - 10 5 mmol/L [facility] CO2 [Moles/Vol] 26 mmol/L 22 - 30 mmol/L [facility] Creatinine [Mass/Vol] 0.87 mg/dL 0.73 - 1.22 mg/dL [facility] Estimated Glomerular Filtration Rate 89 mL/min/1.73m >=60 mL/min/1.73 m [facility] Glucose [Mass/Vol] 120 mg/dL High 74 - 99 mg/dL [facility] Potassium [Moles/Vol] 3.7 mmol/L 3.7 - 5.1 mmol/L [facility] Sodium [Moles/Vol] 138 mmol/L 136 - 144 mmol/L [facility] Urea nitrogen [Mass/Vol] 20 mg/dL 9 - 24 mg/dL [facility] CBC W Auto Differential pane l (Bld)on 02-19-2023 Basophils (Bld) [#/Vol] 0.03 10*3/uL <0.11 k/uL [facility] Basophils/100 WBC (Bld) 0.5 % [facility] Differential cell count method Nom (Bld) Auto [facility] Eosinophils (Bld) [#/Vol] 0.09 10*3/uL <0.46 k/uL [facility] Eosinophils/100 WBC (Bld) 1.4 % [facility] Erythrocyte distribution width (RBC) [Ratio] 15.8 % High 11.5 - 15.0 % [facility] Hematocrit (Bld) [Volume fraction] 25.2 % Low 39.0 - 51.0 % [facility] Hemoglobin (Bld) [Mass/Vol] 8.1 g/dL Low 13.0 - 17.0 g/dL [facility] Immature granulocytes (Bld) [#/Vol] <0.10 k/uL [facility] Immature granulocytes/100 WBC (Bld) 0.3 % [facility] Lymphocytes (Bld) [#/Vol] 1.20 10*3/uL 1.00 - 4.00 k/uL [facility] Lymphocytes/100 WBC (Bld) 18.4 % [facility] MCH (RBC) [Entitic mass] 33.6 pg 26.0 - 34.0 pg [facility] MCHC (RBC) [Mass/Vol] 32.1 g/dL 30.5 - 36.0 g/dL [facility] MCV (RBC) [Entitic vol] 104.6 fL High 80.0 - 100.0 fL [facility] Monocytes (Bld) [#/Vol] 0.51 10*3/uL <0.87 k/uL [facility] Monocytes/100 WBC (Bld) 7.8 % [facility] Neutrophils (Bld) [#/Vol] 4.67 10*3/uL 1.45 - 7.50 k/uL [facility] Neutrophils/100 WBC (Bld) 71.6 % [facility] Nucleated RBC (Bld) [#/Vol] <0.01 k/uL [facility] Nucleated RBC/100 WBC (Bld) [Ratio] 0.0 /100 WBC [facility] Platelet mean volume (Bld) [Entitic vol] 9.1 fL 9.0 - 12.7 fL [facility] Platelets (Bld) [#/Vol] 243 10*3/uL 150 - 400 k/uL [facility] RBC (Bld) [#/Vol] 2.41 10*6/uL Low 4.20 - 6.0 0 m/uL [facility] WBC (Bld) [#/Vol] 6.52 10*3/uL 3.70 - 11.00 k/uL [facility] CT Chest WO contraston 02-14 IMPRESSION: 1. [...] any questions regarding this interpretation, please call [phone]. If you are unable to reach us at the number above, please feel free to contact [facility] eRadiology at [phone]. DIVISION OF RADIOLOGY * * *Final Report* * * DATE OF EXAM: Feb 14 2023 9:59AM [facility] 0541 - CT CHEST WO IVCON / [...] in diameter, stable. DIVISION OF RADIOLOGY Provider, [facility] - 02/14/2023 * * *Final Report* * * DATE OF EXAM: Feb 14 2023 9:59AM [facility] 0541 - CT CHEST WO IVCON / [...] any questions regarding this interpretation, please call [phone]. If you are unable to reach us at the number above, please feel free to contact [facility] eRadiology at [phone]. [facility] Radiology Study observation (narrative) [facility] CT Chest WO contrastOrdered By: Ccf Provider on 02-14-2023 [facility] CBC W Auto Differential pane l (Bld)on 01-01-2023 Basophils (Bld) [#/Vol] <0.11 k/uL [facility] Basophils/100 WBC (Bld) 0.2 % [facility] Differential cell count method Nom (Bld) Auto [facility] Eosinophils (Bld) [#/Vol] 0.03 10*3/uL <0.46 k/uL [facility] Eosinophils/100 WBC (Bld) 0.3 % [facility] Erythrocyte distribution width (RBC) [Ratio] 15.6 % High 11.5 - 15.0 % [facility] Hematocrit (Bld) [Volume fraction] 29.9 % Low 39.0 - 51.0 % [facility] Hemoglobin (Bld) [Mass/Vol] 9.8 g/dL Low 13.0 - 17.0 g/dL [facility] Immature granulocytes (Bld) [#/Vol] <0.10 k/uL [facility] Immature granulocytes/100 WBC (Bld) 0.2 % [facility] Lymphocytes (Bld) [#/Vol] 1.35 10*3/uL 1.00 - 4.00 k/uL [facility] Lymphocytes/100 WBC (Bld) 15.6 % [facility] MCH (RBC) [Entitic mass] 35.4 pg High 26.0 - 34.0 pg [facility] MCHC (RBC) [Mass/Vol] 32.8 g/dL 30.5 - 36.0 g/dL [facility] MCV (RBC) [Entitic vol] 107.9 fL High 80.0 - 100.0 fL [facility] Monocytes (Bld) [#/Vol] 0.85 10*3/uL <0.87 k/uL [facility] Monocytes/100 WBC (Bld) 9.8 % [facility] Neutrophils (Bld) [#/Vol] 6.39 10*3/uL 1.45 - 7.50 k/uL [facility] Neutrophils/100 WBC (Bld) 73.9 % [facility] Nucleated RBC (Bld) [#/Vol] <0.01 k/uL [facility] Nucleated RBC/100 WBC (Bld) [Ratio] 0.0 /100 WBC [facility] Platelet mean volume (Bld) [Entitic vol] 9.4 fL 9.0 - 12.7 fL [facility] Platelets (Bld) [#/Vol] 282 10*3/uL 150 - 400 k/uL [facility] RBC (Bld) [#/Vol] 2.77 10*6/uL Low 4.20 - 6.0 0 m/uL [facility] WBC (Bld) [#/Vol] 8.66 10*3/uL 3.70 - 11.00 k/uL [facility] Comprehensive metabolic 2000 panelon 01-01-2023 Albumin [Mass/Vol] 3.6 g/dL Low 3.9 - 4.9 g/dL [facility] ALP [Catalytic activity/Vol] 72 U/L 38 - 113 U/L [facility] ALT [Catalytic activity/Vol] 17 U/L 10 - 54 U/L [facility] Anion gap [Moles/Vol] 7 mmol/L Low 9 - 18 mmol/L [facility] AST [Catalytic activity/Vol] 17 U/L 14 - 40 U/L [facility] Bilirubin [Mass/Vol] 0.2 mg/dL 0.2 - 1 .3 mg/dL [facility] Calcium [Mass/Vol] 9.2 mg/dL 8.5 - 10. 2 mg/dL [facility] Chloride [Moles/Vol] 101 mmol/L 97 - 10 5 mmol/L [facility] CO2 [Moles/Vol] 29 mmol/L 22 - 30 mmol/L [facility] Creatinine [Mass/Vol] 0.90 mg/dL 0.73 - 1.22 mg/dL [facility] Estimated Glomerular Filtration Rate 89 mL/min/1.73m >=60 mL/min/1.73 m [facility] Glucose [Mass/Vol] 130 mg/dL High 74 - 99 mg/dL [facility] Potassium [Moles/Vol] 3.8 mmol/L 3.7 - 5.1 mmol/L [facility] Protein [Mass/Vol] 7.7 g/dL 6.3 - 8.0 g/dL [facility] Sodium [Moles/Vol] 137 mmol/L 136 - 144 mmol/L [facility] Urea nitrogen [Mass/Vol] 20 mg/dL 9 - 24 mg/dL [facility] IMMUNOGLOBULINS GAMon 2022 IgA [Mass/Vol] 42 mg/dL Low 70 - 400 mg/dL [facility] IgG [Mass/Vol] 2244 mg/dL High 700 - 1,600 mg/dL [place] IgM [Mass/Vol] 12 mg/dL Low 40 - 230 mg/dL [facility] PROTEIN TOTAL BLDon 01-02-20 23 Protein [Mass/Vol] 7.0 g/dL 6.3 - 8.0 g/dL [facility] MR head/brain wo/w conon MR head/brain wo/w con [facility] [place] [address] [place] [address] MRI Report Signed Patient: Raghavendra Heard MR#: [id number] 8 : 1945 Acct:[id number] Age/Sex: 77 / M ADM Date: 12/16/22 Loc: MR Room: Type: [facility] Attending Dr: Amber Rodriguez FREIGHT DISPATCHER-C Copies to: BELLE Ribera Ordering Provider: BELLE Ribera Date of Service: [...] Kylee Loyd M.D.12/16/2022 5:59 PM Dictation Location: [place] [address] Transcribed By: [facility] 12/16/221758 Dictated By: Kylee Loyd MD 12/16/221752 Signed By: 12/16/221758 [facility] CBC W Auto Differential pane l (Bld)on 12-04-2022 Basophils (Bld) [#/Vol] <0.11 k/uL [facility] Basophils/100 WBC (Bld) 0.1 % [facility] Differential cell count method Nom (Bld) Auto [facility] Eosinophils (Bld) [#/Vol] <0.46 k/uL [facility] Eosinophils/100 WBC (Bld) 0.3 % [facility] Erythrocyte distribution width (RBC) [Ratio] 15.8 % High 11.5 - 15.0 % [facility] Hematocrit (Bld) [Volume fraction] 32.0 % Low 39.0 - 51.0 % [facility] Hemoglobin (Bld) [Mass/Vol] 10.5 g/dL Low 13.0 - 17.0 g/dL [facility] Immature granulocytes (Bld) [#/Vol] 0.04 10*3/uL <0.10 k/uL [facility] Immature granulocytes/100 WBC (Bld) 0.5 % [facility] Lymphocytes (Bld) [#/Vol] 0.62 10*3/uL Low 1.00 - 4.00 k/uL [facility] Lymphocytes/100 WBC (Bld) 8.5 % [facility] MCH (RBC) [Entitic mass] 36.2 pg High 26.0 - 34.0 pg [facility] MCHC (RBC) [Mass/Vol] 32.8 g/dL 30.5 - 36.0 g/dL [facility] MCV (RBC) [Entitic vol] 110.3 fL High 80.0 - 100.0 fL [facility] Monocytes (Bld) [#/Vol] 0.16 10*3/uL <0.87 k/uL [facility] Monocytes/100 WBC (Bld) 2.2 % [facility] Neutrophils (Bld) [#/Vol] 6.46 10*3/uL 1.45 - 7.50 k/uL [facility] Neutrophils/100 WBC (Bld) 88.4 % [facility] Nucleated RBC (Bld) [#/Vol] <0.01 k/uL [facility] Nucleated RBC/100 WBC (Bld) [Ratio] 0.0 /100 WBC [facility] Platelet mean volume (Bld) [Entitic vol] 9.1 fL 9.0 - 12.7 fL [facility] Platelets (Bld) [#/Vol] 259 10*3/uL 150 - 400 k/uL [facility] RBC (Bld) [#/Vol] 2.90 10*6/uL Low 4.20 - 6.0 0 m/uL [facility] WBC (Bld) [#/Vol] 7.31 10*3/uL 3.70 - 11.00 k/uL [facility] Comprehensive metabolic 2000 panelon 12-04-2022 Albumin [Mass/Vol] 3.7 g/dL Low 3.9 - 4.9 g/dL [facility] ALP [Catalytic activity/Vol] 66 U/L 38 - 113 U/L [facility] ALT [Catalytic activity/Vol] 20 U/L 10 - 54 U/L [facility] Anion gap [Moles/Vol] 7 mmol/L Low 9 - 18 mmol/L [facility] AST [Catalytic activity/Vol] 15 U/L 14 - 40 U/L [facility] Bilirubin [Mass/Vol] 0.2 mg/dL 0.2 - 1 .3 mg/dL [facility] Calcium [Mass/Vol] 9.4 mg/dL 8.5 - 10. 2 mg/dL [facility] Chloride [Moles/Vol] 104 mmol/L 97 - 10 5 mmol/L [facility] CO2 [Moles/Vol] 27 mmol/L 22 - 30 mmol/L [facility] Creatinine [Mass/Vol] 0.84 mg/dL 0.73 - 1.22 mg/dL [facility] Estimated Glomerular Filtration Rate 91 mL/min/1.73m >=60 mL/min/1.73 m [facility] Glucose [Mass/Vol] 173 mg/dL High 74 - 99 mg/dL [facility] Potassium [Moles/Vol] 4.3 mmol/L 3.7 - 5.1 mmol/L [facility] Protein [Mass/Vol] 7.4 g/dL 6.3 - 8.0 g/dL [facility] Sodium [Moles/Vol] 138 mmol/L 136 - 144 mmol/L [facility] Urea nitrogen [Mass/Vol] 28 mg/dL High 9 - 24 mg/dL [facility] XR Chest PA and Lateralon IMPRESSION: 1. [...] any questions regarding this interpretation, please call [phone]. If you are unable to reach us at the number above, please feel free to contact [facility] at [phone]. DIVISION OF RADIOLOGY * * *Final Report* [...] soft tissues: Unremarkable. DIVISION OF RADIOLOGY Provider, [facility] - 11/15/2022 * * *Final Report* * [...] any questions regarding this interpretation, please call [phone]. If you are unable to reach us at the number above, please feel free to contact [facility] eRadiology at [phone]. [facility] Radiology Study observation (narrative) [facility] XR Chest PA and LateralOrder ed By: [facility] Provider on 11-15-2022 [facility] COMPLIANCE DRUG SCREENon PDF . Normal [facility] Comment on above: Performed By: #### P T, PTT #### [facility] [address] [address] [address] Bry Lauren Summary FINAL Normal [facility] Comment on above: Result Comment: ===== TOXASSURE [...] UNEXPECTED Guaifenesin may be administered as an [id number]-qroivnt or prescription drug; it may also be [...] these medications: Clonazepam Duloxetine Duloxetine (Cymbalta) Hydrocodone (Quitaque) Note: The testing scope of this panel does not include small to moderate amounts of these reported medications: Acetaminophen ([place]aque) ===== For clinical consultation, please call . ===== Performed By: #### P T, PTT #### [facility] [address] [place] [address] Dr. Bry Lauren CBC W MANUAL DIFFon 10-08-19 23 ATYPICAL LYMPH # Normal [facility] Comment on above: Performed By: #### P T, PTT #### [facility] [address] [place] [address] Dr. Bry Lauren ATYPICAL LYMPH % Normal [facility] Comment on above: Performed By: #### P T, PTT #### [facility] [address] [place] [address] Dr. Bry Lauren BAND # 0.2 103/ul Normal 0.0-0.3 [facility] Comment on above: Performed By: #### P T, PTT #### [facility] [address] [place] [address] Dr. Bry Lauren BAND % 2 % Normal 0-5 [facility] Comment on above: Performed By: #### P T, PTT #### [facility] [address] [place] [address] Dr. Bry Lauren BASOM # 0.00 103/ul Normal 0.00-0.10 [facility] Comment on above: Performed By: #### P T, PTT #### [facility] [address] [place] [address] Dr. Bry Lauren BASOM % 0.0 % Critically low 0.2-2.0 [facility] Comment on above: Performed By: #### P T, PTT #### [facility] [address] [place] [address] Dr. Bry Lauren BLAST # Normal [facility] Comment on above: Performed By: #### P T, PTT #### [facility] [address] [place] [address] Dr. Bry Lauren BLAST % Normal [facility] Comment on above: Performed By: #### P T, PTT #### [facility] [address] [place] [address] Dr. Bry Lauren CORRECTED WBC Normal 4.0-11.0 [facility] Comment on above: Performed By: #### P T, PTT #### [facility] [address] [place] [address] Dr. Bry Lauren EOS # 0.11 103/ul Normal 0.00-0.70 [facility] Comment on above: Performed By: #### P T, PTT #### [facility] [address] [place] [address] Dr. Bry Lauren EOS% 1.0 % Normal 0.9-7.0 [facility] Comment on above: Performed By: #### P T, PTT #### [facility] [address] [place] [address] Dr. Bry Lauren HCT 25.4 % Critically low 42.0-54.0 [facility] Comment on above: Performed By: #### P T, PTT #### [facility] [address] [place] [address] Dr. Bry Lauren HGB 8.7 g/dl Critically low 14.0-18.0 [facility] Comment on above: Performed By: #### P T, PTT #### [facility] [address] [address] [address] Bry Lauren LYMPHM # 0.32 103/ul Critically low 1.20-3.80 [facility] Comment on above: Performed By: #### P T, PTT #### [facility] [address] [place] [address] Dr. Bry Lauren LYMPHM% 3.0 % Critically low 20.5-60.0 [facility] Comment on above: Performed By: #### P T, PTT #### [facility] [address] [place] [address] Dr. Bry Lauren MCH 38.3 pg Critically high 25.9-34.0 [facility] Comment on above: Performed By: #### P T, PTT #### [facility] [address] [place] [address] Dr. Bry Lauren MCHC 34.3 g/dl Normal 29.9-35.2 [facility] Comment on above: Performed By: #### P T, PTT #### [facility] [address] [place] [address] Dr. Bry Lauren MCV 111.9 fL Critically high 80.0-94.0 [facility] Comment on above: Performed By: #### P T, PTT #### [facility] [address] [place] [address] Dr. Bry Lauren METAMYELOCYTE # Normal [facility] Comment on above: Performed By: #### P T, PTT #### [facility] [address] [place] [address] Dr. Bry Lauren METAMYELOCYTE % Normal [facility] Comment on above: Performed By: #### P T, PTT #### [facility] [address] [place] [address] Dr. Bry Lauren MONOM# 0.54 103/ul Normal 0.30-0.80 [facility] Comment on above: Performed By: #### P T, PTT #### [facility] [address] [place] [address] Dr. Bry Lauren MONOM% 5.0 % Normal 1.7-12.0 [facility] Comment on above: Performed By: #### P T, PTT #### [facility] [address] [place] [address] Dr. Bry Lauren MPV 10.0 fL Normal 9.5-13.5 [facility] Comment on above: Performed By: #### P T, PTT #### [facility] [address] [place] [address] Dr. Bry Lauren MYELOCYTE # Normal [facility] Comment on above: Performed By: #### P T, PTT #### [facility] [address] [place] [address] Dr. Bry Lauren MYELOCYTE % Normal [facility] Comment on above: Performed By: #### P T, PTT #### [facility] [address] [place] [address] Dr. Bry Lauren NRBC Normal [facility] Comment on above: Performed By: #### P T, PTT #### [facility] [address] [place] [address] Dr. Bry Lauren PLT 145 103/ul Critically low 150-450 [facility] Comment on above: Performed By: #### P T, PTT #### [facility] [address] [place] [address] Dr. Bry Lauren RBC 2.27 106/ul Critically low 4.70-6.10 [facility] Comment on above: Performed By: #### P T, PTT #### [facility] [address] [place] [address] Dr. Bry Lauren RDW 15.0 % Normal 11.0-15.0 [facility] Comment on above: Performed By: #### P T, PTT #### [facility] [address] [place] [address] Dr. Bry Lauren SEG # 9.52 103/ul Critically high 1.40-6.50 [facility] Comment on above: Performed By: #### P T, PTT #### [facility] [address] [place] [address] Dr. Bry Lauren SEG % 89.0 % Critically high 43.0-75.0 [facility] Comment on above: Performed By: #### P T, PTT #### [facility] [address] [place] [address] Dr. Bry Lauren WBC 10.7 103/ul Normal 4.0-11.0 [facility] Comment on above: Performed By: #### P T, PTT #### [facility] [address] [place] [address] Dr. Bry Lauren MAGNESIUMon 10-07-2022 Magnesium [Mass/Vol] 1.7 mg/dL Critically low 1.8-2.4 [facility] Comment on above: Performed By: #### P T, PTT #### [facility] [address] [place] [address] Dr. Bry Lauren PROF 14(COMP METB)on 023 Albumin [Mass/Vol] 2.4 g/dL Critically low 3.4-5.0 [facility] Comment on above: Performed By: #### P T, PTT #### [facility] [address] [place] [address] Dr. Bry Lauren Albumin/Globulin [Mass ratio] 0.5 {ratio} Normal [facility] Comment on above: Performed By: #### P T, PTT #### [facility] [address] [place] [address] Dr. Bry Lauren ALP [Catalytic activity/Vol] 58 U/L Normal 46-116 [facility] Comment on above: Performed By: #### P T, PTT #### [facility] [address] [place] [address] Dr. Bry Lauren ALT [Catalytic activity/Vol] 23 U/L Normal 16-63 [facility] Comment on above: Performed By: #### P T, PTT #### [facility] [address] [place] [address] Dr. Bry Lauren Anion gap [Moles/Vol] 10.3 mmol/L Normal [facility] Comment on above: Performed By: #### P T, PTT #### [facility] [address] [place] [address] Dr. Bry Lauren AST [Catalytic activity/Vol] 24 U/L Normal 15-37 [facility] Comment on above: Performed By: #### P T, PTT #### [facility] [address] [place] [address] Dr. Bry Lauren Bilirubin [Mass/Vol] 0.4 mg/dL Normal 0.2-1.0 [facility] Comment on above: Performed By: #### P T, PTT #### [facility] [address] [place] [address] Dr. Bry Lauren Calcium [Mass/Vol] 8.3 mg/dL Critically low 8.5-10.1 Th e [facility] Comment on above: Performed By: #### P T, PTT #### [facility] [address] [place] [address] Dr. Bry Lauren Chloride [Moles/Vol] 103 mmol/L Normal 98-107 [facility] Comment on above: Performed By: #### P T, PTT #### [facility] [address] [place] [address] Dr. Bry Lauren CO2 [Moles/Vol] 25.3 mmol/L Normal 21.0-32.0 [facility] Comment on above: Performed By: #### P T, PTT #### [facility] [address] [place] [address] Dr. Bry Lauren Creatinine [Mass/Vol] 0.87 mg/dL Normal 0.70-1.30 [facility] Comment on above: Performed By: #### P T, PTT #### [facility] [address] [place] [address] Dr. Bry Lauren EGFR-AF RUSSIAN >60 Normal >=60 [facility] Comment on above: Performed By: #### P T, PTT #### [facility] [address] [place] [address] Dr. Bry Lauren EGFR-NON AF RUSSIAN >60 Normal >=60 [facility] Comment on above: Performed By: #### P T, PTT #### [facility] [address] [place] [address] Dr. Bry Lauren Globulin (S) [Mass/Vol] 4.5 g/dL Normal [facility] Comment on above: Performed By: #### P T, PTT #### [facility] [address] [place] [address] Dr. Bry Lauren Glucose [Mass/Vol] 106 mg/dL Normal 74-106 [facility] Comment on above: Performed By: #### P T, PTT #### [facility] [address] [place] [address] Dr. Bry Lauren Potassium [Moles/Vol] 3.6 mmol/L Normal 3.5-5.1 [facility] Comment on above: Performed By: #### P T, PTT #### [facility] [address] [place] [address] Dr. Bry Lauren Protein [Mass/Vol] 6.9 g/dL Normal 6.4-8.2 [facility] Comment on above: Performed By: #### P T, PTT #### [facility] [address] [place] [address] Dr. Bry Lauren Sodium [Moles/Vol] 135 mmol/L Critically low 136-145 [facility] Comment on above: Performed By: #### P T, PTT #### [facility] [address] [place] [address] Dr. Bry Lauren Urea nitrogen [Mass/Vol] 23.0 mg/dL Critically high 7.0-18.0 [facility] Comment on above: Performed By: #### P T, PTT #### [facility] [address] [place] [address] Dr. Bry Lauren Urea nitrogen/Creatinine [Mass ratio] 26.4 mg/mg Normal [facility] Comment on above: Performed By: #### P T, PTT #### [facility] [address] [place] [address] Dr. Bry Lauren RESPIRATORY PANEL PLUSon Adenovirus Not detected Normal NOT DETECTED [facility] Comment on above: Performed By: #### R SPLUS #### [facility] [address] [place] [address] Dr. Bry Lauren B. Parapertusis Not detected Normal NOT DETECTED [facility] Comment on above: Performed By: #### R SPLUS #### [facility] [address] [place] [address] Dr. Bry Willett. Pertussis Not detected Normal NOT DETECTED [facility] Comment on above: Performed By: #### R SPLUS #### [facility] [address] [place] [address] Dr. Bry Lauren Chlamydia Pneumoniae Not detected Normal NOT DETECTED [facility] Comment on above: Performed By: #### R SPLUS #### [facility] [address] [place] [address] Dr. Bry Lauren Coronavirus 229E Not detected Normal NOT DETECTED [facility] Comment on above: Performed By: #### R SPLUS #### [facility] [address] [place] [address] Dr. Bry Lauren Coronavirus HKU1 Not detected Normal NOT DETECTED [facility] Comment on above: Performed By: #### R SPLUS #### [facility] [address] [place] [address] Dr. Bry Lauren Coronavirus NL63 Not detected Normal NOT DETECTED [facility] Comment on above: Performed By: #### R SPLUS #### [facility] [address] [place] [address] Dr. Bry Lauren Coronavirus OC43 Not detected Normal NOT DETECTED [facility] Comment on above: Performed By: #### R SPLUS #### [facility] [address] [place] [address] Dr. Bry Lauren Influenza A H1 Not detected Normal NOT DETECTED [facility] Comment on above: Performed By: #### R SPLUS #### [facility] [address] [place] [address] Dr. Bry Lauren Influenza A H1 2009 Not detected Normal NOT DETECTED [facility] Comment on above: Performed By: #### R SPLUS #### [facility] [address] [place] [address] Dr. Bry Lauren Influenza A H3 Not detected Normal NOT DETECTED [facility] Comment on above: Performed By: #### R SPLUS #### [facility] Laboratory [address] [place] [address] Dr. Bry Lauren Influenza B Not detected Normal NOT DETECTED [facility] Comment on above: Performed By: #### R SPLUS #### [facility] [address] [place] [address] Dr. Bry Lauren Metapneumovirus Not detected Normal NOT DETECTED [facility] Comment on above: Performed By: #### R SPLUS #### [facility] [address] [place] [address] Dr. Bry Lauren Mycoplas. Pneumoniae Not detected Normal NOT DETECTED [facility] Comment on above: Performed By: #### R SPLUS #### [facility] [address] [place] [address] Dr. Bry Lauren Parainfluenza 1 Not detected Normal NOT DETECTED [facility] Comment on above: Performed By: #### R SPLUS #### [facility] [address] [place] [address] Dr. Bry Lauren Parainfluenza 2 Not detected Normal NOT DETECTED [facility] Comment on above: Performed By: #### R SPLUS #### [facility] [address] [place] [address] Dr. Bry Lauren Parainfluenza 3 Not detected Normal NOT DETECTED [facility] Comment on above: Performed By: #### R SPLUS #### [facility] [address] [place] [address] Dr. Bry Lauren Parainfluenza 4 Not detected Normal NOT DETECTED [facility] Comment on above: Performed By: #### R SPLUS #### [facility] [address] [place] [address] Dr. Bry Lauren Rhino/Enterovirus Not detected Normal NOT DETECTED [facility] Comment on above: Performed By: #### R SPLUS #### [facility] [address] [place] [address] Dr. Bry Lauren RP2 Header 1 RESPIRATORY PANEL: VIRUSES Normal [facility] Comment on above: Performed By: #### R SPLUS #### [facility] [address] [place] [address] Dr. Bry Lauren RP2 Header 2 RESPIRATORY PANEL: BACTERIA Normal [facility] Comment on above: Performed By: #### R SPLUS #### [facility] [address] [place] [address] Dr. Bry Lauren RSV Not detected Normal NOT DETECTED [facility] Comment on above: Performed By: #### R SPLUS #### [facility] [address] [place] [address] Dr. Bry Lauren SARS-CoV-2 (COVID-19) RNA ELLE+probe Ql (Unsp spec) Not detected Normal NOT DETECTED [facility] Comment on above: Performed By: #### R SPLUS #### [facility] [address] [place] [address] Dr. Bry Lauren T3, TOTAL (TRIIODOTHYRONINE) on 10-07-2022 T3, TOTAL 119 ng/dL Normal 71-180 [facility] Comment on above: Performed By: #### P T, PTT #### [facility] [address] [place] [address] Dr. Bry Lauren BNPon 10-06-2022 Natriuretic peptide B (Bld) [Mass/Vol] 410.0 pg/mL Normal <=1,800.0 [facility] Comment on above: Performed By: #### C MP, CMADM, HSTROPN, BNP #### [facility] [address] [place] [address] Dr. Bry Lauren CARDIAC JIMI ADMITon 023 CK [Catalytic activity/Vol] 104 U/L Normal 39-308 [facility] Comment on above: Performed By: #### C MP, CMADM, HSTROPN, BNP #### [facility] [address] [place] [address] Dr. Bry Lauren CK.MB [Mass/Vol] 0.58 ng/mL Normal <=3.60 [facility] Comment on above: Performed By: #### C MP, CMADM, HSTROPN, BNP #### [facility] [address] [place] [address] Dr. Bry Lauren JACQUELINE 118 ng/mL Critically high 16-96 [facility] Comment on above: Performed By: #### C MP, CMADM, HSTROPN, BNP #### [facility] [address] [place] [address] Dr. Bry Lauren CBC AUTO DIFFon 10-06-2022 BASO # 0.0 103/ul Normal 0.0-0.1 [facility] Comment on above: Performed By: #### C BC #### [facility] [address] [place] [address] Dr. Bry Lauren Basophils/100 WBC (Bld) 0.1 % Critically low 0.2-2.0 [facility] Comment on above: Performed By: #### C BC #### [facility] [address] [place] [address] Dr. Bry Lauren EO # 0.0 103/ul Normal 0.0-0.7 [facility] Comment on above: Performed By: #### C BC #### [facility] [address] [place] [address] Dr. Bry Lauren Eosinophils/100 WBC (Bld) 0.1 % Critically low 0.9-7.0 [facility] Comment on above: Performed By: #### C BC #### [facility] [address] [place] [address] Dr. Bry Lauren Erythrocyte distribution width (RBC) [Ratio] 14.9 % Normal 11.0-15.0 [facility] Comment on above: Performed By: #### C BC #### [facility] [address] [place] [address] Dr. Bry Lauren Hematocrit (Bld) [Volume fraction] 30.9 % Critically low 42.0-54.0 [facility] Comment on above: Performed By: #### C BC #### [facility] [address] [place] [address] Dr. Bry Lauren Hemoglobin (Bld) [Mass/Vol] 10.8 g/dL Critically low 14.0-18.0 [facility] Comment on above: Performed By: #### C BC #### [facility] [address] [place] [address] Dr. Bry Lauren IG # 0.04 10e3/ul Critically high 0.00-0.03 [facility] Comment on above: Performed By: #### C BC #### [facility] [address] [place] [address] Dr. Bry Lauren IG % 0.4 % Normal 0.0-0.5 [facility] Comment on above: Performed By: #### C BC #### [facility] [address] [place] [address] Dr. Bry Lauren LYMPH # 0.5 103/ul Critically low 1.2-3.8 [facility] Comment on above: Performed By: #### C BC #### [facility] [address] [place] [address] Dr. Bry Lauren Lymphocytes/100 WBC (Bld) 5.0 % Critically low 20.5-60.0 [facility] Comment on above: Performed By: #### C BC #### [facility] [address] [place] [address] Dr. Bry Lauren MANUAL DIFF REQ NO Normal [facility] Comment on above: Performed By: #### C BC #### [facility] [address] [place] [address] Dr. Bry Lauren MCH (RBC) [Entitic mass] 38.0 pg Critically high 25.9-34.0 [facility] Comment on above: Performed By: #### C BC #### [facility] [address] [place] [address] Dr. Bry Lauren MCHC (RBC) [Mass/Vol] 35.0 g/dL Normal 29.9-35.2 [facility] Comment on above: Performed By: #### C BC #### [facility] [address] [place] [address] Dr. Bry Lauren MCV (RBC) [Entitic vol] 108.8 fL Critically high 80.0-94.0 [facility] Comment on above: Performed By: #### C BC #### [facility] [address] [place] [address] Dr. Bry Lauren MONO # 0.6 103/ul Normal 0.3-0.8 [facility] Comment on above: Performed By: #### C BC #### [facility] [address] [place] [address] Dr. Bry Lauren Monocytes/100 WBC (Bld) 6.6 % Normal 1.7-12.0 [facility] Comment on above: Performed By: #### C BC #### [facility] [address] [place] [address] Dr. Bry Lauren NEUT # 8.4 103/ul Critically high 1.4-6.5 [facility] Comment on above: Performed By: #### C BC #### [facility] [address] [place] [address] Dr. Bry Lauren Neutrophils/100 WBC (Bld) 87.8 % Critically high 43.0-75.0 [facility] Comment on above: Performed By: #### C BC #### [facility] [address] [place] [address] Dr. Bry Lauren Platelet mean volume (Bld) [Entitic vol] 9.8 fL Normal 9.5-13.5 [facility] Comment on above: Performed By: #### C BC #### [facility] [address] [place] [address] Dr. Bry Lauren PLT 185 103/ul Normal 150-450 [facility] Comment on above: Performed By: #### C BC #### [facility] [address] [place] [address] Dr. Bry Lauren RBC 2.84 106/ul Critically low 4.70-6.10 [facility] Comment on above: Performed By: #### C BC #### [facility] [address] [place] [address] Dr. Bry Lauren WBC 9.5 103/ul Normal 4.0-11.0 [facility] Comment on above: Performed By: #### C BC #### [facility] [address] [place] [address] CSPINE WO CONon [...] ARPIT DIEZ Date: 2022-10-06 11:26 Normal [facility] CT HEAD WO CONon 10-06-2022 CT HEAD [...] ARPIT DIEZ Date: 2022-10-06 11:20 Normal [facility] CULTURE BLOODon 10-06-2022 Microscopic examination of blood, culture Culture Observations: NO GROWTH AT 5 DAYS. Normal [facility] Comment on above: Performed By: #### P T, PTT #### [facility] [address] [place] [address] Dr. Bry Lauren Microscopic examination of blood, culture Culture Observations: NO GROWTH AT 5 DAYS. Normal [facility] Comment on above: Performed By: #### P T, PTT #### [facility] [address] [place] [address] Dr. Bry Lauren [facility]on SARS-CoV-2 (COVID-19) RNA LELE+probe Ql (Unsp spec) Not detected Normal NOT DETECTED [facility] Comment on above: Result Comment: When diagnostic [...] for this test is supported by the [place] [employer]'s declaration that [...] used). Performed By: #### C VDTBH #### [facility] [address] [place] [address] Dr. Bry Lauren DRUG SCREEN RAPID (URINE)on 10-06-2022 AMP Negative Normal NEGATIVE [facility] Comment on above: Performed By: #### P T, PTT #### [facility] [address] [place] [address] Dr. Bry Lauren BAR Negative Normal NEGATIVE [facility] Comment on above: Performed By: #### P T, PTT #### [facility] [address] [place] [address] Dr. Bry Lauren BUP Negative Normal NEGATIVE [facility] Comment on above: Performed By: #### P T, PTT #### [facility] [address] [place] [address] Dr. Bry Lauren BZO Negative Normal NEGATIVE [facility] Comment on above: Performed By: #### P T, PTT #### [facility] [address] [place] [address] Dr. Bry Lauren LENI Negative Normal NEGATIVE [facility] Comment on above: Performed By: #### P T, PTT #### [facility] [address] [place] [address] Dr. Bry Lauren CUT-OFFS SEE BELOW Normal [facility] Comment on above: Result Comment: AMP (Amphetamine): [...] Performed By: #### P T, PTT #### [facility] [address] [place] [address] Dr. Bry Lauren DRUG CUT HEADER DRUG CLASS TEST SYST EM CUT-OFF CONCENTRATIONS ARE FOLLOWS: Normal [facility] Comment on above: Performed By: #### P T, PTT #### [facility] [address] [place] [address] Dr. Bry Lauren mAMP Negative Normal NEGATIVE [facility] Comment on above: Performed By: #### P T, PTT #### [facility] [address] [place] [address] Dr. Bry Lauren MTD Negative Normal NEGATIVE [facility] Comment on above: Performed By: #### P T, PTT #### [facility] [address] [place] [address] Dr. Bry Lauren OPI Positive Abnormal NEGATIVE [facility] Comment on above: Performed By: #### P T, PTT #### [facility] [address] [place] [address] Dr. Bry Lauren OXY Negative Normal NEGATIVE [facility] Comment on above: Performed By: #### P T, PTT #### [facility] [address] [place] [address] Dr. Bry Lauren PCP Negative Normal NEGATIVE [facility] Comment on above: Performed By: #### P T, PTT #### [facility] [address] [place] [address] Dr. Bry Lauren PPX Negative Normal NEGATIVE [facility] Comment on above: Performed By: #### P T, PTT #### [facility] [address] [place] [address] Dr. Bry Lauren TCA Negative Normal NEGATIVE [facility] Comment on above: Performed By: #### P T, PTT #### [facility] [address] [place] [address] Dr. Bry Lauren THC Negative Normal NEGATIVE [facility] Comment on above: Performed By: #### P T, PTT #### [facility] [address] [place] [address] Dr. Bry Lauren ER URINE PROFILEon 3 Bilirubin Ql (U) Negative Normal NEGATIVE [facility] Comment on above: Performed By: #### P T, PTT #### [facility] [address] [place] [address] Dr. Bry Lauren Clarity (U) CLEAR Normal CLEAR [facility] Comment on above: Performed By: #### P T, PTT #### [facility] [address] [place] [address] Dr. Bry Lauren Color (U) LT. YELLOW Normal YELLOW [facility] Comment on above: Performed By: #### P T, PTT #### [facility] [address] [place] [address] Dr. Bry Lauren ERUHARSHIL A micrscopic examina tion will be performed if indicated. Normal [facility] Comment on above: Performed By: #### P T, PTT #### [facility] [address] [place] [address] Dr. Bry Lauren Glucose Ql (U) Negative Normal NEGATIVE [facility] Comment on above: Performed By: #### P T, PTT #### [facility] [address] [place] [address] Dr. Bry Lauren Hemoglobin Ql (U) TRACE-INTACT Abnormal NEGATIVE [facility] Comment on above: Performed By: #### P T, PTT #### [facility] [address] [place] [address] Dr. Bry Lauren Ketones Ql (U) Negative Normal NEGATIVE [facility] Comment on above: Performed By: #### P T, PTT #### [facility] [address] [place] [address] Dr. Bry Lauren LEUKOCYTES Negative Normal NEGATIVE [facility] Comment on above: Performed By: #### P T, PTT #### [facility] [address] [place] [address] Dr. Bry Lauren Nitrite Ql (U) Negative Normal NEGATIVE [facility] Comment on above: Performed By: #### P T, PTT #### [facility] [address] [place] [address] Dr. Bry Lauren pH (U) 6.0 [pH] Normal 5-9 [facility] Comment on above: Performed By: #### P T, PTT #### [facility] [address] [place] [address] Dr. Bry Lauren Protein (U) [Mass/Vol] 30 mg/dL Abnormal NEGAT IRMA/ TRACE [facility] Comment on above: Performed By: #### P T, PTT #### [facility] [address] [place] [address] Dr. Bry Lauren SPEC GRAVITY 1.020 Normal 1.005-<=1.0 25 [facility] Comment on above: Performed By: #### P T, PTT #### [facility] [address] [place] [address] Dr. Bry Lauren UR MICRO IND INDICATED Normal [facility] Comment on above: Performed By: #### P T, PTT #### [facility] [address] [place] [address] Dr. Bry Lauren Urobilinogen Qn (U) 0.2 {Ingrid'U}/dL Normal 0.2 - 1. 0 [facility] Comment on above: Performed By: #### P T, PTT #### [facility] [address] [place] [address] Dr. Bry Lauren INFLUENZA A AND B AGon 10-06 INFLUANEGH SEE BELOW Normal [facility] Comment on above: Result Comment: Nega tive for Flu A protein angiten. Infection due to Flu A cannot be ruled out. Flu A angiten in the sample may be below the detection limit of the test. Performed By: #### P T, PTT #### [facility] [address] [place] [address] Dr. Bry Lauren INFLUBNEGH SEE BELOW Normal [facility] Comment on above: Result Comment: Nega tive for Flu B protein antigen. Infection due to Flu B cannot be ruled out. Flu B antigen in the sample may be below the detection limit of the test. Performed By: #### P T, PTT #### [facility] [address] [place] [address] Dr. Bry Lauren INFLUENZA A AG Negative Normal NEGATIVE SEE COMMENT [facility] Comment on above: Performed By: #### P T, PTT #### [facility] [address] [place] [address] Dr. Bry Lauren INFLUENZA B AG Negative Normal NEGATIVE SEE COMMENT [facility] Comment on above: Performed By: #### P T, PTT #### [facility] [address] [place] [address] Dr. Bry Lauren LACTATE/LACTIC ACIDon 2022 Lactate [Moles/Vol] 0.9 mmol/L Normal 0.4-2.0 [facility] Comment on above: Performed By: #### P T, PTT #### [facility] [address] [place] [address] Dr. Bry Lauren Lactate [Moles/Vol] 1.5 mmol/L Normal 0.4-2.0 [facility] Comment on above: Performed By: #### P T, PTT #### [facility] [address] [place] [address] Dr. Bry Lauren MAGNESIUMon 10-06-2022 Magnesium [Mass/Vol] 1.5 mg/dL Critically low 1.8-2.4 [facility] Comment on above: Performed By: #### P T, PTT #### [facility] [address] [place] [address] Dr. Bry Lauren PROF 14(COMP METB)on 023 Albumin [Mass/Vol] 3.5 g/dL Normal 3.4-5.0 [facility] Comment on above: Performed By: #### C MP, CMADM, HSTROPN, BNP #### [facility] [address] [place] [address] Dr. Bry Lauren Albumin/Globulin [Mass ratio] 0.6 {ratio} Normal [facility] Comment on above: Performed By: #### C MP, CMADM, HSTROPN, BNP #### [facility] [address] [place] [address] Dr. Bry Lauren ALP [Catalytic activity/Vol] 72 U/L Normal 46-116 [facility] Comment on above: Performed By: #### C MP, CMADM, HSTROPN, BNP #### [facility] [address] [place] [address] Dr. Bry Lauren ALT [Catalytic activity/Vol] 27 U/L Normal 16-63 [facility] Comment on above: Performed By: #### C MP, CMADM, HSTROPN, BNP #### [facility] [address] [place] [address] Dr. Bry Lauren Anion gap [Moles/Vol] 9.6 mmol/L Normal [facility] Comment on above: Performed By: #### C MP, CMADM, HSTROPN, BNP #### [facility] [address] [place] [address] Dr. Bry Lauren AST [Catalytic activity/Vol] 23 U/L Normal 15-37 [facility] Comment on above: Performed By: #### C MP, CMADM, HSTROPN, BNP #### [facility] [address] [address] [address] Bry Lauren Bilirubin [Mass/Vol] 0.7 mg/dL Normal 0.2-1.0 [facility] Comment on above: Performed By: #### C MP, CMADM, HSTROPN, BNP #### [facility] [address] [address] [address] Bry Lauren Calcium [Mass/Vol] 9.2 mg/dL Normal 8.5-10.1 [facility] Comment on above: Performed By: #### C MP, CMADM, HSTROPN, BNP #### [facility] [address] [place] [address] Dr. Bry Lauren Chloride [Moles/Vol] 99 mmol/L Normal 98-107 [facility] Comment on above: Performed By: #### C MP, CMADM, HSTROPN, BNP #### [facility] [address] [address] [address] Bry Lauren CO2 [Moles/Vol] 29.2 mmol/L Normal 21.0-32.0 [facility] Comment on above: Performed By: #### C MP, CMADM, HSTROPN, BNP #### [facility] [address] [place] [address] Dr. Bry Lauren Creatinine [Mass/Vol] 1.07 mg/dL Normal 0.70-1.30 [facility] Comment on above: Performed By: #### C MP, CMADM, HSTROPN, BNP #### [facility] [address] [place] [address] Dr. Bry Lauren EGFR-AF RUSSIAN >60 Normal >=60 [facility] Comment on above: Performed By: #### C MP, CMADM, HSTROPN, BNP #### [facility] [address] [place] [address] Dr. Bry Lauren EGFR-NON AF RUSSIAN >60 Normal >=60 [facility] Comment on above: Performed By: #### C MP, CMADM, HSTROPN, BNP #### [facility] [address] [address] [address] Bry Lauren Globulin (S) [Mass/Vol] 5.4 g/dL Normal [facility] Comment on above: Performed By: #### C MP, CMADM, HSTROPN, BNP #### [facility] [address] [address] [address] Bry Lauren Glucose [Mass/Vol] 105 mg/dL Normal 74-106 [facility] Comment on above: Performed By: #### C MP, CMADM, HSTROPN, BNP #### [facility] [address] [address] [address] Bry Lauren Potassium [Moles/Vol] 3.8 mmol/L Normal 3.5-5.1 [facility] Comment on above: Performed By: #### C MP, CMADM, HSTROPN, BNP #### [facility] [address] [address] [address] Bry Lauren Protein [Mass/Vol] 8.9 g/dL Critically high 6.4-8.2 [facility] Comment on above: Performed By: #### C MP, CMADM, HSTROPN, BNP #### [facility] [address] [place] [address] Dr. Bry Lauren Sodium [Moles/Vol] 134 mmol/L Critically low 136-145 [facility] Comment on above: Performed By: #### C MP, CMADM, HSTROPN, BNP #### [facility] [address] [place] [address] Dr. Bry Lauren Urea nitrogen [Mass/Vol] 21.0 mg/dL Critically high 7.0-18.0 [facility] Comment on above: Performed By: #### C MP, CMADM, HSTROPN, BNP #### [facility] [address] [place] [address] Dr. Bry Lauren Urea nitrogen/Creatinine [Mass ratio] 19.6 mg/mg [facility] Comment on above: Performed By: #### C MP, CMADM, HSTROPN, BNP #### [facility] [address] [place] [address] Dr. Bry Lauren PROTIMEon 10-06-2022 INR Coag (PPP) [Relative time] 1.04 {INR} Normal [facility] Comment on above: Performed By: #### P T, PTT #### [facility] [address] [place] [address] Dr. Bry Lauren INR GUIDELINES SEE BELOW Normal [facility] [facility] Comment on above: Result Comment: MAYANK RED INR: 2.0 - 3.0 CONDITIONS NOT LISTED BELOW 2.5 - 3.5 FOR PROSTHETIC HEART VALVE REPLACEMENT 2.5 - 3.5 RECURRENT THROMBOSIS Performed By: #### P T, PTT #### [facility] [address] [place] [address] Dr. Bry Lauren PT Coag (PPP) [Time] 11.0 s Normal 9.0-11.6 [facility] Comment on above: Performed By: #### P T, PTT #### [facility] [address] [place] [address] Dr. Bry Laruen PTTon 10-06-2022 aPTT Coag (Bld) [Time] 24.6 s Normal 22.3-36.2 e [facility] Comment on above: Performed By: #### P T, PTT #### [facility] [address] [place] [address] Dr. Bry Lauren T4on 10-06-2022 T4 [Mass/Vol] 8.30 ug/dL Normal 4.50-12.10 [facility] Comment on above: Performed By: #### M G, T4, TSH #### [facility] [address] [place] [address] Dr. Bry Lauren TROPONIN, HIGH SENSITIVITYon 10-06-2022 HSTROP 11.1 pg/mL Normal 4.0-76.1 [facility] Comment on above: Result Comment: CUT- OFF POINTS HAVE BEEN ESTABLISHED BASED ON THE FOURTH UNIVERSAL DEFINITIONS OF MYOCARDIAL INFARCTION. THE UPPER REFERENCE LIMIT (URL) OF TROPONIN, DEFINED THE 99TH PERCENTILE OF cTnI DISTRIBUTION IN A REFERENCE POPULATION, HAS BEEN CONFIRMED THE DECISION THRESHOLD FOR IN DIAGNOSIS. Performed By: #### C MP, CMADM, HSTROPN, BNP #### [facility] [address] [place] [address] Dr. Bry Lauren TSHon 10-06-2022 TSH 1.168 uIU/mL Normal 0.358-3.740 [facility] Comment on above: Performed By: #### P T, PTT #### [facility] [address] [place] [address] Dr. Bry Lauren URINE MICROSCOPIC ONLYon BACTERIA NONE SEEN Normal NONE SEEN [facility] Comment on above: Performed By: #### P T, PTT #### [facility] [address] [place] [address] Dr. Bry Lauren Bacteria identified Cx Nom (U) NOT INDICATED Normal [facility] Comment on above: Performed By: #### P T, PTT #### [facility] [address] [place] [address] Dr. Bry Lauren CAST NONE SEEN Normal NONE SEEN [facility] Comment on above: Performed By: #### P T, PTT #### [facility] [address] [place] [address] Dr. Bry Lauren Crystals LM Nom (Urine sed) NONE SEEN Normal NONE SEEN [facility] Comment on above: Performed By: #### P T, PTT #### [facility] [address] [place] [address] Dr. Bry Lauren Epithelial cells LM Ql (Urine sed) FEW Abnormal NONE SEEN /RARE [facility] Comment on above: Performed By: #### P T, PTT #### [facility] [address] [place] [address] Dr. Bry Lauren MUCOUS NONE SEEN Normal NONE SEEN [facility] Comment on above: Performed By: #### P T, PTT #### [facility] [address] [place] [address] Dr. Bry Lauren RBC 2-5 Abnormal 0-2 [facility] Comment on above: Performed By: #### P T, PTT #### [facility] [address] [place] [address] Dr. Bry Lauren WBC NONE SEEN Normal NONE SEEN [facility] Comment on above: Performed By: #### P T, PTT #### [facility] [address] [address] [address] Bry Lauren XR CHEST 1 Von [...] ARPIT DIEZ Date: 2022-10-06 10:39 Normal [facility] ECHOCARDIO M/2D COMPLETEon 0 10-04-2022 ECHOCARDIO M/2D COMPLETE Patient: RAGHAVENDRA HEARD Exam Date: 10/04/2022 : 1945 Gender:M Ordering : [facility] Admission #: [id number] Family : DR PRERNA GRISSOM M.D. Order #: [id number] CLICK HERE TO VIEW EXAM ECHOCARDIOGRAM REPORT [...] M.D. on 10/05/2022 at 18:29 Normal [facility] Activated partial thrombopla stin time (aPTT) in platelet poor plasma by coagulation aOrdered By: Alberto Chappell on 10-02-2022 aPTT Coag (PPP) [Time] 30.8 s 25.1-36.5 [facility] B-Type Natriuretic Peptideon 10-02-2022 Natriuretic peptide B (Bld) [Mass/Vol] 110.0 pg/mL High 5-100 [facility] Comment on above: Result Comment: PERF ORMED BY: [facility] [address] [place] [address] PATHOLOGIST [employer] INVESTIGATOR PREET MUNOZ M.D. Performed By: #### M G, BMP, PT, HS TROP, BNP, PTT, CK ####[facility] [place] [address] [facility] Basic Metabolic Panelon 04-0 Anion gap [Moles/Vol] 6.5 mmol/L Normal 6.0-15.0 [facility] Comment on above: Performed By: #### M G, BMP, PT, HS TROP, BNP, PTT, CK ####[address] Calcium [Mass/Vol] 8.4 mg/dL Low 8.6-10.3 [facility] Comment on above: Performed By: #### M G, BMP, PT, HS TROP, BNP, PTT, CK ####[place] [id number] [facility] Chloride [Moles/Vol] 111 mmol/L High 98-107 [facility] Comment on above: Performed By: #### M G, BMP, PT, HS TROP, BNP, PTT, CK ####[address] CO2 [Moles/Vol] 25.5 mmol/L Normal 21.0-31.0 [facility] Comment on above: Performed By: #### M G, BMP, PT, HS TROP, BNP, PTT, CK ####[place] [id number] [facility] Creatinine [Mass/Vol] 0.79 mg/dL Normal 0.70-1.30 [facility] Comment on above: Performed By: #### M G, BMP, PT, HS TROP, BNP, PTT, CK ####[place] [id number] [facility] Creatinine Clr Calc Pharmacy 77.19 [facility] Comment on above: Performed By: #### M G, BMP, PT, HS TROP, BNP, PTT, CK ####[place] [id number] [facility] GFR/1.73 sq M.predicted MDRD (S/P/Bld) [Vol rate/Area] mL/min/{1.73_m2} [facility] Comment on above: Performed By: #### M G, BMP, PT, HS TROP, BNP, PTT, CK ####[address] Glucose [Mass/Vol] 89 mg/dL Normal 70-100 [facility] Comment on above: Result Comment: [facility] Glucose Reference Range is dependent on time and content of last meal. Glucose of more than 200 mg/dL in a nonstressed, ambulatory subject supports the diagnosis of Diabetes Mellitus. ADA recommended reference range Performed By: #### M G, BMP, PT, HS TROP, BNP, PTT, CK ####[place] [id number] Potassium [Moles/Vol] 4.0 mmol/L Normal 3.5-5.1 [facility] Comment on above: Performed By: #### M G, BMP, PT, HS TROP, BNP, PTT, CK ####[place] [address] Sodium [Moles/Vol] 139 mmol/L Normal 136-145 [facility] Comment on above: Performed By: #### M G, BMP, PT, HS TROP, BNP, PTT, CK ####[place] [address] Urea nitrogen [Mass/Vol] 26 mg/dL High 7-25 [facility] Comment on above: Performed By: #### M G, BMP, PT, HS TROP, BNP, PTT, CK ####[place] [address] Basophils Auto (Bld) [#/Vol] Ordered By: Alberto Chappell on 10-02-2022 Basophils (Bld) [#/Vol] 0.0 10*3/uL 0.0-0.2 [facility] Basophils/100 WBC Auto (Bld) Ordered By: Alberto Chappell on 10-02-2022 Basophils/100 WBC (Bld) 0.5 % . [facility] Bilirubin Test strip Ql (U)O rdered By: Alberto Chappell on 10-02-2022 Bilirubin Ql (U) Negative Negative [facility] CT head/brain wo conon 10-02 CT head/brain wo con [facility] [address] [place] [address] [place] [address] CT Scan Report Signed Patient: Raghavendra Heard MR#: [id number] 8 : 1945 Acct:[id number] Age/Sex: 77 / M ADM Date: 10/02/22 Loc: ER Room: Type: [facility] ER Attending Dr: Copies to: Alberto Chappell [...] Primo Evans M.D.10/02/2022 5:25 PM Dictation Location: [place] [address] Transcribed By: [facility] 10/02/221724 Dictated By: Primo Evans DO 10/02/221721 Signed By: 10/02/22 172 Normal [facility] Calcium [Mass/volume] in Ser um or PlasmaOrdered By: Alberto Chappell on 10-02-2022 Calcium [Mass/Vol] 8.4 mg/dL 8.6-10.3 [facility] Carbon dioxide, total [Moles /volume] in Serum or PlasmaOrdered By: Alberto Chappell on 10-02-2022 CO2 [Moles/Vol] 25.5 mmol/L 21.0-31.0 [facility] Chloride [Moles/volume] in S lu or PlasmaOrdered By: Alberto Chappell on 10-02-2022 Chloride [Moles/Vol] 111 mmol/L 98-107 [facility] Color Auto (U)Ordered By: Jem Chappell on 10-02-2022 Color (U) Yellow Yellow [facility] Complete Blood Count Auto Di ffon 10-02-2022 Basophils (Bld) [#/Vol] 0.0 10*3/uL Normal 0.0-0.2 [facility] Comment on above: Result Comment: PERF ORMED BY: [place] [address] PATHOLOGIST [employer] INVESTIGATOR PREET MUNOZ M.D. Performed By: #### C BC #### [address] Basophils/100 WBC (Bld) 0.5 % Normal . [facility] Comment on above: Performed By: #### C BC #### [address] Eosinophils (Bld) [#/Vol] 0.1 10*3/uL Normal 0.0-0.45 [facility] Comment on above: Performed By: #### C BC #### [address] Eosinophils/100 WBC (Bld) 1.5 % Normal . [facility] Comment on above: Performed By: #### C BC #### [address] Erythrocyte distribution width (RBC) [Ratio] 16.5 % High 12.0-14.8 [facility] Comment on above: Performed By: #### C BC #### [address] Hematocrit (Bld) [Volume fraction] 28.1 % Low 38.8-50.0 [facility] Comment on above: Performed By: #### C BC #### [address] Hemoglobin (Bld) [Mass/Vol] 9.7 g/dL Low 13.0-17.0 [facility] Comment on above: Performed By: #### C BC #### [address] Lymphocytes (Bld) [#/Vol] 0.7 10*3/uL Low 1.00-4.8 [facility] Comment on above: Performed By: #### C BC #### [address] Lymphocytes/100 WBC (Bld) 15.4 % Normal . [facility] Comment on above: Performed By: #### C BC #### [address] MCH (RBC) [Entitic mass] 37.9 pg High 27.5-35.2 [facility] Comment on above: Performed By: #### C BC #### [address] MCV (RBC) [Entitic vol] 109.5 fL High 83.5-101 [facility] Comment on above: Performed By: #### C BC #### [address] Mean Corpuscular HGB Conc 34.6 g/dL Normal 32.5-35.6 [facility] Comment on above: Performed By: #### C BC #### [address] Monocytes (Bld) [#/Vol] 0.5 10*3/uL Normal 0.0-0.8 [facility] Comment on above: Performed By: #### C BC #### [address] Monocytes/100 WBC (Bld) 18.85 % Normal 0.00-20.00 [facility] Comment on above: Performed By: #### C BC #### [address] Monocytes/100 WBC (Bld) 12.0 % Normal . [facility] Comment on above: Performed By: #### C BC #### [address] Neutrophils (Bld) [#/Vol] 3.0 10*3/uL Normal 1.8-7.7 [facility] Comment on above: Performed By: #### C BC #### [facility] [address] Neutrophils/100 WBC (Bld) 70.6 % Normal . [facility] Comment on above: Performed By: #### C BC #### [facility] [address] NRBC% 0.0 /100{WBC} Normal 0-0.5 [facility] Comment on above: Performed By: #### C BC #### [facility] [address] Platelet mean volume (Bld) [Entitic vol] 7.6 fL Normal 6.6-10.1 [facility] Comment on above: Performed By: #### C BC #### [facility] [address] Platelets (Bld) [#/Vol] 174 10*3/uL Normal 150-450 [facility] Comment on above: Performed By: #### C BC #### [facility] [address] RBC (Bld) [#/Vol] 2.56 10*6/uL Low 3.90-5.60 [facility] Comment on above: Performed By: #### C BC #### [facility] [address] WBC (Bld) [#/Vol] 4.3 10*3/uL Normal 4.1-10.5 [facility] Comment on above: Performed By: #### C BC #### [facility] [address] Creatine Kinaseon 10-02-2022 CK [Catalytic activity/Vol] 69 U/L Normal 30-223 [facility] Comment on above: Performed By: #### M G, BMP, PT, HS TROP, BNP, PTT, CK ####[facility] [place] [address] [place] Creatine kinase [Enzymatic a ctivity/volume] in Serum or PlasmaOrdered By: Alberto Chappell on 10-02-2022 CK [Catalytic activity/Vol] 69 U/L 30-223 [facility] Creatinine [Mass/volume] in Serum or PlasmaOrdered By: Alberto Chappell on 10-02-2022 Creatinine [Mass/Vol] 0.79 mg/dL 0.70-1.30 [facility] ECG 12 lead ECGon 10-02-2022 ECG 12 lead ECG [facility] [place] [address] Electrocardiograph Report Signed Patient: Raghavendra Heard MR#: [id number] 8 : 1945 Acct:[id number] Age/Sex: 77 / M ADM Date: 10/02/22 Loc: ER Room: Type: [facility] ER Attending Dr: Ordering Provider: Alberto Chappell [...] Signed By Zaid Gaspar MD 10/02/221922 Normal [facility] Eosinophils Auto (Bld) [#/Vo l]Ordered By: Alberto Chappell on 10-02-2022 Eosinophils (Bld) [#/Vol] 0.1 10*3/uL 0.0-0.45 [facility] Eosinophils/100 WBC Auto (Bl d)Ordered By: Alberto Chappell on 10-02-2022 Eosinophils/100 WBC (Bld) 1.5 % . [facility] Erythrocyte distribution wid th Auto (RBC) [Ratio]Ordered By: Alberto Chappell on 10-02-2022 Erythrocyte distribution width (RBC) [Ratio] 16.5 % 12.0-14.8 [facility] Glucose [Mass/volume] in Ser um or PlasmaOrdered By: Alberto Chappell on 10-02-2022 Glucose [Mass/Vol] 89 mg/dL 70-100 [facility] Comment on above: ADA recommended refe rence rangeRandom Glucose Reference Range is dependent on time and content of last meal. Glucose of more than 200 mg/dL in a nonstressed, ambulatory subject supports the diagnosis of Diabetes Mellitus. Hematocrit Auto (Bld) [Volum e fraction]Ordered By: Alberto Chappell on 10-02-2022 Hematocrit (Bld) [Volume fraction] 28.1 % 38.8-50.0 [facility] Hemoglobin [Mass/volume] in BloodOrdered By: Alberto Chappell on 10-02-2022 Hemoglobin (Bld) [Mass/Vol] 9.7 g/dL 13.0-17.0 [facility] Ketones Auto test strip (U) [Mass/Vol]Ordered By: Alberto Chappell on 10-02-2022 Ketones (U) [Mass/Vol] Negative Negative [facility] Laboratory - CoagulationOrde red By: Alberto Chappell on 10-02-2022 PT Coag (PPP) [Time] 12.0 s 9.0-12.9 [facility] Leukocytes [#/volume] correc daphne for nucleated erythrocytes in Blood by Automated counOrdered By: Alberto Chappell on 10-02-2022 WBC corrected for nucl RBC Auto (Bld) [#/Vol] 4.3 10*3/uL 4.1-10.5 [facility] Lymphocytes Auto (Bld) [#/Vo l]Ordered By: Alberto Chappell on 10-02-2022 Lymphocytes (Bld) [#/Vol] 0.7 10*3/uL 1.00-4.8 [facility] Lymphocytes/100 WBC Auto (Bl d)Ordered By: Alberto Chappell on 10-02-2022 Lymphocytes/100 WBC (Bld) 15.4 % . [facility] MCH Auto (RBC) [Entitic mass ]Ordered By: Alberto Chappell on 10-02-2022 MCH (RBC) [Entitic mass] 37.9 pg 27.5-35.2 [facility] MCHC Auto (RBC) [Mass/Vol]Or dered By: Alberto Chappell on 10-02-2022 MCHC (RBC) [Mass/Vol] 34.6 g/dL 32.5-35.6 [facility] MCV Auto (RBC) [Entitic vol] Ordered By: Alberto Chappell on 10-02-2022 MCV (RBC) [Entitic vol] 109.5 fL 83.5-101 [facility] Magnesiumon 10-02-2022 Magnesium [Mass/Vol] 1.7 mg/dL Low 1.9-2.7 [facility] Comment on above: Result Comment: PERF ORMED BY: [facility] [address] [place] [address] PATHOLOGIST [employer] INVESTIGATOR PREET MUNOZ M.D. Performed By: #### M G, BMP, PT, HS TROP, BNP, PTT, CK ####[facility] [id number] [place] [address] [facility] Magnesium [Mass/volume] in S lu or PlasmaOrdered By: Ablerto Chappell on 10-02-2022 Magnesium [Mass/Vol] 1.7 mg/dL 1.9-2.7 [facility] Monocyte distribution width [Entitic volume] in Blood by AutomatedOrdered By: Alberto Chappell on 10-02-2022 Monocyte distribution width Auto (Bld) [Entitic vol] 18.85 % 0.00-20.00 [facility] Monocytes Auto (Bld) [#/Vol] Ordered By: Alberto Chappell on 10-02-2022 Monocytes (Bld) [#/Vol] 0.5 10*3/uL 0.0-0.8 [facility] Monocytes/100 WBC Auto (Bld) Ordered By: Alberto Chappell on 10-02-2022 Monocytes/100 WBC (Bld) 12.0 % . [facility] Natriuretic peptide B [Mass/ Vol]Ordered By: Alberto Chappell on 10-02-2022 Natriuretic peptide B (Bld) [Mass/Vol] 110.0 pg/mL 5-100 [facility] Neutrophils Auto (Bld) [#/Vo l]Ordered By: Alberto Chappell on 04-03-2023 Neutrophils (Bld) [#/Vol] 3.0 10*3/uL 1.8-7.7 [facility] Neutrophils/100 WBC Auto (Bl d)Ordered By: Alberto Chappell on 10-02-2022 Neutrophils/100 WBC (Bld) 70.6 % . [facility] Nitrite Test strip Ql (U)Ord ered By: Alberto Chappell on 10-02-2022 Nitrite Ql (U) Negative Negative [facility] No Panel InformationOrdered By: Alberto Chappell on 10-02-2022 Estimated GFR (CKD-EPI) > 60.0 mL/Min [facility] Creatinine Clearance (Chem 77.19 [facility] Nucleated erythrocytes [Pres ence] in Blood by Automated countOrdered By: Alberto Chappell on 10-02-2022 Nucleated RBC Auto Ql (Bld) 0.0 /100{WBC} 0-0.5 [facility] Partial Thromboplastin Timeo n 10-02-2022 aPTT Coag (Bld) [Time] 30.8 s Normal 25.1-36.5 [facility] Comment on above: Result Comment: PERF ORMED BY: [facility] [address] [facility] [place] [address] PATHOLOGIST [employer] INVESTIGATOR PREET MUNOZ M.D. Performed By: #### M G, BMP, PT, HS TROP, BNP, PTT, CK ####[facility] [address] Platelet mean volume Auto (B ld) [Entitic vol]Ordered By: Alberto Chappell on 10-02-2022 Platelet mean volume (Bld) [Entitic vol] 7.6 fL 6.6-10.1 [facility] Platelet poor plasma interna tional normalized ratio (INR) by coagulation assay (relatOrdered By: Alberto Chappell on 10-02-2022 INR Coag (PPP) [Relative time] 1.0 {INR} [facility] Comment on above: INR Therapeutic Rang [...] 10-02-2022 Platelets (Bld) [#/Vol] 174 10*3/uL 150-450 [facility] Potassium [Moles/volume] in Serum or PlasmaOrdered By: Alberto Chappell on 10-02-2022 Potassium [Moles/Vol] 4.0 mmol/L 3.5-5.1 [facility] Protein Auto test strip (U) [Mass/Vol]Ordered By: Alberto Chappell on 10-02-2022 Protein (U) [Mass/Vol] Negative Negative [facility] Prothrombin Time INRon 10-02 INR Coag (PPP) [Relative time] 1.0 {INR} Normal [facility] Comment on above: Result Comment: INR [...] BMP, PT, HS TROP, BNP, PTT, CK ####[facility] [id number] [place] [address] [facility] PT Coag (PPP) [Time] 12.0 s Normal 9.0-12.9 [facility] Comment on above: Performed By: #### M G, BMP, PT, HS TROP, BNP, PTT, CK ####[facility] [address] [place] [address] [facility] RBC Auto (Bld) [#/Vol]Ordere d By: Alberto Chappell on 10-02-2022 RBC (Bld) [#/Vol] 2.56 10*6/uL 3.90-5.60 [facility] Serum or plasma anion gap de terminationOrdered By: Alberto Chappell on 10-02-2022 Anion gap [Moles/Vol] 6.5 mmol/L 6.0-15.0 [facility] Sodium [Moles/volume] in Ser um or PlasmaOrdered By: Alberto Chappell on 10-02-2022 Sodium [Moles/Vol] 139 mmol/L 136-145 [facility] Specific gravity Auto test s trip (U) [Rel density]Ordered By: Alberto Chappell on 10-02-2022 Specific gravity (U) [Rel density] 1.007 1.001-1.030 [facility] Troponin I High Sensitivityo n 10-02-2022 Troponin I High Sensitivity 6.0 pg/mL Normal 0.0-20.0 [facility] Comment on above: Result Comment: PERF ORMED BY: [facility] [address] [facility] [place] [address] PATHOLOGIST [employer] INVESTIGATOR PREET MUNOZ M.D. Performed By: #### M G, BMP, PT, HS TROP, BNP, PTT, CK ####[facility] [id number] Troponin I.cardiac [Mass/vol ume] in Serum or Plasma by Detection limit <= 0.01 ng/Ordered By: Alberto Chappell on 10-02-2022 Troponin I.cardiac DL <= 0.01 ng/mL [Mass/Vol] 6.0 pg/mL 0.0-20.0 [facility] Urea nitrogen [Mass/volume] in Serum or PlasmaOrdered By: Alberto Chappell on 10-02-2022 Urea nitrogen [Mass/Vol] 26 mg/dL 7-25 [facility] Urinalysison 10-02-2022 Appearance (U) Clear Normal Clear [facility] Comment on above: Order Comment: Name Collection Type:: Clean-Voided Midstream Performed By: #### U A #### [facility] [address] Bilirubin,Urine Negative Normal Negative [facility] Comment on above: Order Comment: Name Collection Type:: Clean-Voided Midstream Performed By: #### U A #### [facility] [address] [place] [address] [place] Color (U) Yellow Normal Yellow [facility] Comment on above: Order Comment: Name Collection Type:: Clean-Voided Midstream Performed By: #### U A #### [facility] [address] [place] [address] Glucose Ql (U) Normal Normal Normal [facility] Comment on above: Order Comment: Name Collection Type:: Clean-Voided Midstream Performed By: #### U A #### [facility] [address] [place] [address] Ketones Ql (U) Negative Normal Negative [facility] Comment on above: Order Comment: Name Collection Type:: Clean-Voided Midstream Performed By: #### U A #### [facility] [address] [place] [address] Leukocyte esterase Test strip Ql (U) Negative Normal Negative [facility] Comment on above: Order Comment: Name Collection Type:: Clean-Voided Midstream Performed By: #### U A #### [facility] [address] [place] [address] [place] Nitrite,Urine Negative Normal Negative [facility] Comment on above: Order Comment: Name Collection Type:: Clean-Voided Midstream Performed By: #### U A #### [facility] [address] [place] [address] [place] Occult Blood,Urine Negative Normal Negative [facility] Comment on above: Order Comment: Name Collection Type:: Clean-Voided Midstream Result Comment: PERF ORMED BY: [place] [address] PATHOLOGIST [employer] INVESTIGATOR PREET MUNOZ M.D. Performed By: #### U A #### [facility] [address] [place] [address] [place] pH (U) 6.0 [pH] Normal 5.0-9.0 [facility] Comment on above: Order Comment: Name Collection Type:: Clean-Voided Midstream Performed By: #### U A #### [facility] [address] [place] [address] [place] Protein,Urine Negative Normal Negative [facility] Comment on above: Order Comment: Name Collection Type:: Clean-Voided Midstream Performed By: #### U A #### [facility] [address] [place] [id number] [facility] Specificy [place],Urine 1.007 Normal 1.001-1.030 [facility] Comment on above: Order Comment: Name Collection Type:: Clean-Voided Midstream Performed By: #### U A #### [facility] [address] [place] [id number] [place] Urobilinogen,Urine Normal Normal Normal [facility] Comment on above: Order Comment: Name Collection Type:: Clean-Voided Midstream Performed By: #### U A #### [facility] [address] [place] [address] [place] Urine clarity by refractomet ry automatedOrdered By: Alberto Chappell on 10-02-2022 Clarity Refractometry automated (U) Clear Clear [facility] Urine glucose measurement by automated test strip (mass/volume)Ordered By: Alberto Chappell on 10-02-2022 Glucose Auto test strip (U) [Mass/Vol] Normal mg/dL Normal [facility] Urine hemoglobin detection b y automated test stripOrdered By: Alberto Chappell on 10-02-2022 Hemoglobin Auto test strip Ql (U) Negative Negative [facility] Urine leukocyte esterase det ection by automated test stripOrdered By: Alberto Chappell on 10-02-2022 Leukocyte esterase Auto test strip Ql (U) Negative Negative [facility] Urobilinogen Auto test strip (U) [Mass/Vol]Ordered By: Alberto Chappell on 10-02-2022 Urobilinogen (U) [Mass/Vol] Normal mg/dL Normal [facility] WBC Auto (Bld) [#/Vol]Ordere d By: Alberto Chappell on 10-02-2022 WBC (Bld) [#/Vol] 4.3 10*3/uL 4.1-10.5 [facility] XR chest 1V portableon 10-02 XR chest 1V portable [facility] [address] [place] [address] [place] [address] XRay Report Signed Patient: Raghavendra Heard MR#: [id number] 8 : 1945 Acct:[id number] Age/Sex: 77 / M ADM Date: 10/02/22 Loc: ER Room: Type: [facility] ER Attending Dr: Copies to: Alberto Chappell PA-C Ordering Provider: Alberto Chappell PA-C Date of Service: 10/02/22 XR/XR chest 1V portable: Dizziness Plain film chestsingle view HISTORY:Dizziness fell. COMPARISON:None FINDINGS: SUPPORT DEVICES: None POSTSURGICAL CHANGES:Right [id number] present. Hilar surgical clips are seen in the right. HEART: Within normal limits PULMONARY ELLIOT:Right hilar therapy changes present. MEDIASTINUM:Unremarkable LUNGS AND PLEURA: No acute lung process, pleural effusion or pneumothorax identified. Interstitial prominence. BONY STRUCTURES: Intact ADDITIONAL FINDINGS None XR/XR chest 1V portable IMPRESSION: No acute process. Post therapy changes. Impression dictated by: Primo Evans M.D.10/02/2022 4:45 PM Dictation Location: [place] [address] Transcribed By: [facility] 10/02/22 1645 Dictated By: Primo Evans DO 10/02/22 1640 Signed By: 10/02/22 1645 Normal [facility] pH Auto test strip (U)Ordere d By: Alberto Chappell on 10-02-2022 pH (U) 6.0 [pH] 5.0-9.[address] [facility] [address] Chest WO contraston 09-26 IMPRESSION: [...] any questions regarding this interpretation, please call [phone]. If you are unable to reach us at the number above, please feel free to contact [facility] at [phone]. DIVISION OF RADIOLOGY * * *Final Report* * * DATE OF EXAM: Sep 26 2022 9:10AM [facility] 0541 - CT CHEST WO IVCON / [...] cm in diameter. DIVISION OF RADIOLOGY Provider, [facility] - 09/26/2022 * * *Final Report* * * DATE OF EXAM: Sep 26 2022 9:10AM [facility] 0541 - CT CHEST WO IVCON / [...] any questions regarding this interpretation, please call [phone]. If you are unable to reach us at the number above, please feel free to contact [facility] eRadiology at [phone]. [facility] Radiology Study observation (narrative) [facility] CT Chest WO contrastOrdered By: Ccf Provider on 09-26-2022 [facility] CBC W Auto Differential pane l (Bld)on 09-11-2022 Basophils (Bld) [#/Vol] <0.11 k/uL [facility] Basophils/100 WBC (Bld) 0.3 % [facility] Differential cell count method Nom (Bld) Auto [facility] Eosinophils (Bld) [#/Vol] 0.03 10*3/uL <0.46 k/uL [facility] Eosinophils/100 WBC (Bld) 1.0 % [facility] Erythrocyte distribution width (RBC) [Ratio] 17.2 % High 11.5 - 15.0 % [facility] Hematocrit (Bld) [Volume fraction] 29.5 % Low 39.0 - 51.0 % [facility] Hemoglobin (Bld) [Mass/Vol] 10.1 g/dL Low 13.0 - 17.0 g/dL [facility] Immature granulocytes (Bld) [#/Vol] <0.10 k/uL [facility] Immature granulocytes/100 WBC (Bld) 0.3 % [facility] Lymphocytes (Bld) [#/Vol] 0.48 10*3/uL Low 1.00 - 4.00 k/uL [facility] Lymphocytes/100 WBC (Bld) 16.3 % [facility] MCH (RBC) [Entitic mass] 37.3 pg High 26.0 - 34.0 pg [facility] MCHC (RBC) [Mass/Vol] 34.2 g/dL 30.5 - 36.0 g/dL [facility] MCV (RBC) [Entitic vol] 108.9 fL High 80.0 - 100.0 fL [facility] Monocytes (Bld) [#/Vol] 0.60 10*3/uL <0.87 k/uL [facility] Monocytes/100 WBC (Bld) 20.3 % [facility] Neutrophils (Bld) [#/Vol] 1.82 10*3/uL 1.45 - 7.50 k/uL [facility] Neutrophils/100 WBC (Bld) 61.8 % [facility] Nucleated RBC (Bld) [#/Vol] <0.01 k/uL [facility] Nucleated RBC/100 WBC (Bld) [Ratio] 0.0 /100 WBC [facility] Platelet mean volume (Bld) [Entitic vol] 9.1 fL 9.0 - 12.7 fL [facility] Platelets (Bld) [#/Vol] 214 10*3/uL 150 - 400 k/uL [facility] RBC (Bld) [#/Vol] 2.71 10*6/uL Low 4.20 - 6.0 0 m/uL [facility] WBC (Bld) [#/Vol] 2.95 10*3/uL Low 3.70 - 11.00 k/uL [facility] Comprehensive metabolic 2000 panelon 09-11-2022 Albumin [Mass/Vol] 4.0 g/dL 3.9 - 4.9 g/dL [facility] ALP [Catalytic activity/Vol] 65 U/L 38 - 113 U/L [facility] ALT [Catalytic activity/Vol] 16 U/L 10 - 54 U/L [facility] Anion gap [Moles/Vol] 7 mmol/L Low 9 - 18 mmol/L [facility] AST [Catalytic activity/Vol] 22 U/L 14 - 40 U/L [facility] Bilirubin [Mass/Vol] 0.2 mg/dL 0.2 - 1 .3 mg/dL [facility] Calcium [Mass/Vol] 9.3 mg/dL 8.5 - 10. 2 mg/dL [facility] Chloride [Moles/Vol] 102 mmol/L 97 - 10 5 mmol/L [facility] CO2 [Moles/Vol] 27 mmol/L 22 - 30 mmol/L [facility] Creatinine [Mass/Vol] 0.96 mg/dL 0.73 - 1.22 mg/dL [facility] Estimated Glomerular Filtration Rate 82 mL/min/1.73m >=60 mL/min/1.73 m [facility] Glucose [Mass/Vol] 136 mg/dL High 74 - 99 mg/dL [facility] Potassium [Moles/Vol] 3.9 mmol/L 3.7 - 5.1 mmol/L [facility] Protein [Mass/Vol] 7.4 g/dL 6.3 - 8.0 g/dL [facility] Sodium [Moles/Vol] 136 mmol/L 136 - 144 mmol/L [facility] Urea nitrogen [Mass/Vol] 22 mg/dL 9 - 24 mg/dL [facility] IMMUNOGLOBULINS GAMon 2022 IgA [Mass/Vol] 39 mg/dL Low 70 - 400 mg/dL [facility] IgG [Mass/Vol] 2139 mg/dL High 700 - 1,600 mg/dL [facility] IgM [Mass/Vol] 10 mg/dL Low 40 - 230 mg/dL [facility] CBC W Auto Differential pane l (Bld)on 08-01-2022 Basophils (Bld) [#/Vol] <0.11 k/uL [facility] Basophils/100 WBC (Bld) 1.1 % [facility] Differential cell count method Nom (Bld) Auto [facility] Eosinophils (Bld) [#/Vol] <0.46 k/uL [facility] Eosinophils/100 WBC (Bld) 0.0 % [facility] Erythrocyte distribution width (RBC) [Ratio] 13.2 % 11.5 - 15.0 % [facility] Hematocrit (Bld) [Volume fraction] 28.2 % Low 39.0 - 51.0 % [facility] Hemoglobin (Bld) [Mass/Vol] 9.7 g/dL Low 13.0 - 17.0 g/dL [facility] Immature granulocytes (Bld) [#/Vol] <0.10 k/uL [facility] Immature granulocytes/100 WBC (Bld) 0.6 % [facility] Lymphocytes (Bld) [#/Vol] 0.38 10*3/uL Low 1.00 - 4.00 k/uL [facility] Lymphocytes/100 WBC (Bld) 21.1 % [facility] MCH (RBC) [Entitic mass] 35.1 pg High 26.0 - 34.0 pg [facility] MCHC (RBC) [Mass/Vol] 34.4 g/dL 30.5 - 36.0 g/dL [facility] MCV (RBC) [Entitic vol] 102.2 fL High 80.0 - 100.0 fL [facility] Monocytes (Bld) [#/Vol] 0.29 10*3/uL <0.87 k/uL [facility] Monocytes/100 WBC (Bld) 16.1 % [facility] Neutrophils (Bld) [#/Vol] 1.10 10*3/uL Low 1.45 - 7.50 k/uL [facility] Neutrophils/100 WBC (Bld) 61.1 % [facility] Nucleated RBC (Bld) [#/Vol] <0.01 k/uL [facility] Nucleated RBC/100 WBC (Bld) [Ratio] 0.0 /100 WBC [facility] Platelet mean volume (Bld) [Entitic vol] 10.3 fL 9.0 - 12.7 fL [facility] Platelets (Bld) [#/Vol] 83 10*3/uL Low 150 - 400 k/uL [facility] RBC (Bld) [#/Vol] 2.76 10*6/uL Low 4.20 - 6.0 0 m/uL [facility] WBC (Bld) [#/Vol] 1.80 10*3/uL Low 3.70 - 11.00 k/uL [facility] Comprehensive metabolic 2000 panelon 08-01-2022 Albumin [Mass/Vol] 3.7 g/dL Low 3.9 - 4.9 g/dL [facility] ALP [Catalytic activity/Vol] 65 U/L 38 - 113 U/L [facility] ALT [Catalytic activity/Vol] 18 U/L 10 - 54 U/L [facility] Anion gap [Moles/Vol] 7 mmol/L Low 9 - 18 mmol/L [facility] AST [Catalytic activity/Vol] 18 U/L 14 - 40 U/L [facility] Bilirubin [Mass/Vol] 0.2 mg/dL 0.2 - 1 .3 mg/dL [facility] Calcium [Mass/Vol] 9.6 mg/dL 8.5 - 10. 2 mg/dL [facility] Chloride [Moles/Vol] 103 mmol/L 97 - 10 5 mmol/L [facility] CO2 [Moles/Vol] 28 mmol/L 22 - 30 mmol/L [facility] Creatinine [Mass/Vol] 0.79 mg/dL 0.73 - 1.22 mg/dL [facility] Estimated Glomerular Filtration Rate 93 mL/min/1.73m >=60 mL/min/1.73 m [facility] Glucose [Mass/Vol] 120 mg/dL High 74 - 99 mg/dL [facility] Potassium [Moles/Vol] 4.4 mmol/L 3.7 - 5.1 mmol/L [facility] Protein [Mass/Vol] 7.5 g/dL 6.3 - 8.0 g/dL [facility] Sodium [Moles/Vol] 138 mmol/L 136 - 144 mmol/L [facility] Urea nitrogen [Mass/Vol] 26 mg/dL High 9 - 24 mg/dL [facility] Comprehensive metabolic 2000 panelon 07-25-2022 Albumin [Mass/Vol] 4.0 g/dL 3.9 - 4.9 g/dL [facility] ALP [Catalytic activity/Vol] 61 U/L 38 - 113 U/L [facility] ALT [Catalytic activity/Vol] 26 U/L 10 - 54 U/L [facility] Anion gap [Moles/Vol] 8 mmol/L Low 9 - 18 mmol/L [facility] AST [Catalytic activity/Vol] 31 U/L 14 - 40 U/L [facility] Bilirubin [Mass/Vol] 0.2 mg/dL 0.2 - 1 .3 mg/dL [facility] Calcium [Mass/Vol] 8.6 mg/dL 8.5 - 10. 2 mg/dL [facility] Chloride [Moles/Vol] 102 mmol/L 97 - 10 5 mmol/L [facility] CO2 [Moles/Vol] 27 mmol/L 22 - 30 mmol/L [facility] Creatinine [Mass/Vol] 0.91 mg/dL 0.73 - 1.22 mg/dL [facility] Estimated Glomerular Filtration Rate 88 mL/min/1.73m >=60 mL/min/1.73 m [facility] Glucose [Mass/Vol] 130 mg/dL High 74 - 99 mg/dL [facility] Potassium [Moles/Vol] 4.0 mmol/L 3.7 - 5.1 mmol/L [facility] Protein [Mass/Vol] 7.4 g/dL 6.3 - 8.0 g/dL [facility] Sodium [Moles/Vol] 137 mmol/L 136 - 144 mmol/L [facility] Urea nitrogen [Mass/Vol] 31 mg/dL High 9 - 24 mg/dL [facility] CBC W Auto Differential pane l (Bld)on 07-11-2022 Basophils (Bld) [#/Vol] <0.11 k/uL [facility] Basophils/100 WBC (Bld) 0.6 % [facility] Differential cell count method Nom (Bld) Auto [facility] Eosinophils (Bld) [#/Vol] 0.03 10*3/uL <0.46 k/uL [facility] Eosinophils/100 WBC (Bld) 0.9 % [facility] Erythrocyte distribution width (RBC) [Ratio] 13.2 % 11.5 - 15.0 % [facility] Hematocrit (Bld) [Volume fraction] 35.8 % Low 39.0 - 51.0 % [facility] Hemoglobin (Bld) [Mass/Vol] 12.4 g/dL Low 13.0 - 17.0 g/dL [facility] Immature granulocytes (Bld) [#/Vol] <0.10 k/uL [facility] Immature granulocytes/100 WBC (Bld) 0.3 % [facility] Lymphocytes (Bld) [#/Vol] 1.25 10*3/uL 1.00 - 4.00 k/uL [facility] Lymphocytes/100 WBC (Bld) 39.2 % [facility] MCH (RBC) [Entitic mass] 35.9 pg High 26.0 - 34.0 pg [facility] MCHC (RBC) [Mass/Vol] 34.6 g/dL 30.5 - 36.0 g/dL [facility] MCV (RBC) [Entitic vol] 103.8 fL High 80.0 - 100.0 fL [facility] Monocytes (Bld) [#/Vol] 0.20 10*3/uL <0.87 k/uL [facility] Monocytes/100 WBC (Bld) 6.3 % [facility] Neutrophils (Bld) [#/Vol] 1.68 10*3/uL 1.45 - 7.50 k/uL [facility] Neutrophils/100 WBC (Bld) 52.7 % [facility] Nucleated RBC (Bld) [#/Vol] <0.01 k/uL [facility] Nucleated RBC/100 WBC (Bld) [Ratio] 0.0 /100 WBC [facility] Platelet mean volume (Bld) [Entitic vol] 10.6 fL 9.0 - 12.7 fL [facility] Platelets (Bld) [#/Vol] 135 10*3/uL Low 150 - 400 k/uL [facility] RBC (Bld) [#/Vol] 3.45 10*6/uL Low 4.20 - 6.0 0 m/uL [facility] WBC (Bld) [#/Vol] 3.19 10*3/uL Low 3.70 - 11.00 k/uL [facility] Comprehensive metabolic 2000 panelon 07-11-2022 Albumin [Mass/Vol] 4.3 g/dL 3.9 - 4.9 g/dL [facility] ALP [Catalytic activity/Vol] 57 U/L 38 - 113 U/L [facility] ALT [Catalytic activity/Vol] 25 U/L 10 - 54 U/L [facility] Anion gap [Moles/Vol] 6 mmol/L Low 9 - 18 mmol/L [facility] AST [Catalytic activity/Vol] 31 U/L 14 - 40 U/L [facility] Bilirubin [Mass/Vol] 0.4 mg/dL 0.2 - 1 .3 mg/dL [facility] Calcium [Mass/Vol] 8.9 mg/dL 8.5 - 10. 2 mg/dL [facility] Chloride [Moles/Vol] 101 mmol/L 97 - 10 5 mmol/L [facility] CO2 [Moles/Vol] 29 mmol/L 22 - 30 mmol/L [facility] Creatinine [Mass/Vol] 0.81 mg/dL 0.73 - 1.22 mg/dL [facility] Estimated Glomerular Filtration Rate 92 mL/min/1.73m >=60 mL/min/1.73 m [facility] Glucose [Mass/Vol] 122 mg/dL High 74 - 99 mg/dL [facility] Potassium [Moles/Vol] 3.9 mmol/L 3.7 - 5.1 mmol/L [facility] Protein [Mass/Vol] 7.6 g/dL 6.3 - 8.0 g/dL [facility] Sodium [Moles/Vol] 136 mmol/L 136 - 144 mmol/L [facility] Urea nitrogen [Mass/Vol] 25 mg/dL High 9 - 24 mg/dL [facility] Laboratory - Chemistry and C hemistry - challengeon 07-11-2022 Magnesium [Mass/Vol] 1.8 mg/dL 1.7 - 2 .3 mg/dL [facility] CBC W Auto Differential pane l (Bld)on 07-04-2022 Basophils (Bld) [#/Vol] 0.03 10*3/uL <0.11 k/uL [facility] Basophils/100 WBC (Bld) 0.6 % [facility] Differential cell count method Nom (Bld) Auto [facility] Eosinophils (Bld) [#/Vol] 0.04 10*3/uL <0.46 k/uL [facility] Eosinophils/100 WBC (Bld) 0.8 % [facility] Erythrocyte distribution width (RBC) [Ratio] 13.4 % 11.5 - 15.0 % [facility] Hematocrit (Bld) [Volume fraction] 35.6 % Low 39.0 - 51.0 % [facility] Hemoglobin (Bld) [Mass/Vol] 11.9 g/dL Low 13.0 - 17.0 g/dL [facility] Immature granulocytes (Bld) [#/Vol] <0.10 k/uL [facility] Immature granulocytes/100 WBC (Bld) 0.4 % [facility] Lymphocytes (Bld) [#/Vol] 1.68 10*3/uL 1.00 - 4.00 k/uL [facility] Lymphocytes/100 WBC (Bld) 34.4 % [facility] MCH (RBC) [Entitic mass] 35.4 pg High 26.0 - 34.0 pg [facility] MCHC (RBC) [Mass/Vol] 33.4 g/dL 30.5 - 36.0 g/dL [facility] MCV (RBC) [Entitic vol] 106.0 fL High 80.0 - 100.0 fL [facility] Monocytes (Bld) [#/Vol] 0.46 10*3/uL <0.87 k/uL [facility] Monocytes/100 WBC (Bld) 9.4 % [facility] Neutrophils (Bld) [#/Vol] 2.65 10*3/uL 1.45 - 7.50 k/uL [facility] Neutrophils/100 WBC (Bld) 54.4 % [facility] Nucleated RBC (Bld) [#/Vol] <0.01 k/uL [facility] Nucleated RBC/100 WBC (Bld) [Ratio] 0.0 /100 WBC [facility] Platelet mean volume (Bld) [Entitic vol] 10.1 fL 9.0 - 12.7 fL [facility] Platelets (Bld) [#/Vol] 176 10*3/uL 150 - 400 k/uL [facility] RBC (Bld) [#/Vol] 3.36 10*6/uL Low 4.20 - 6.0 0 m/uL [facility] WBC (Bld) [#/Vol] 4.88 10*3/uL 3.70 - 11.00 k/uL [facility] Comprehensive metabolic 2000 panelon 07-04-2022 Albumin [Mass/Vol] 4.4 g/dL 3.9 - 4.9 g/dL [facility] ALP [Catalytic activity/Vol] 53 U/L 38 - 113 U/L [facility] ALT [Catalytic activity/Vol] 21 U/L 10 - 54 U/L [facility] Anion gap [Moles/Vol] 7 mmol/L Low 9 - 18 mmol/L [facility] AST [Catalytic activity/Vol] 28 U/L 14 - 40 U/L [facility] Bilirubin [Mass/Vol] 0.5 mg/dL 0.2 - 1 .3 mg/dL [facility] Calcium [Mass/Vol] 9.3 mg/dL 8.5 - 10. 2 mg/dL [facility] Chloride [Moles/Vol] 104 mmol/L 97 - 10 5 mmol/L [facility] CO2 [Moles/Vol] 26 mmol/L 22 - 30 mmol/L [facility] Creatinine [Mass/Vol] 0.87 mg/dL 0.73 - 1.22 mg/dL [facility] Estimated Glomerular Filtration Rate 90 mL/min/1.73m >=60 mL/min/1.73 m [facility] Glucose [Mass/Vol] 99 mg/dL 74 - 99 mg/dL [facility] Potassium [Moles/Vol] 4.4 mmol/L 3.7 - 5.1 mmol/L [facility] Protein [Mass/Vol] 7.7 g/dL 6.3 - 8.0 g/dL [facility] Sodium [Moles/Vol] 137 mmol/L 136 - 144 mmol/L [facility] Urea nitrogen [Mass/Vol] 26 mg/dL High 9 - 24 mg/dL [facility] ANES POSTPROC EVALon 022 ANES POSTPROC EVAL HNO ID: [id number] Author: Elvin Boo MD Service: Anesthesiology Author [...] June 14, 2022 TIME: 11:43 AM CSN: [id number] [facility] ANES PRE-OPon 06-14-2022 ANES PRE-OP HNO ID: [id number] Author: Elvin Boo MD Service: Anesthesiology Author [...] and consent discussed: yes. Patient / Responsible Alliance Party agrees to proceed: yes Patient / Surrogate [...] June 14, 2022 TIME: 8:38 AM CSN: [id number] Normal [facility] CYTOLOGY NON-GYNon 2 ADEQUACY INTERPRETATION Normal [facility] Comment on above: Order Comment: Speci men Type: SPECIMEN OBTAINED BY ASPIRATION Ordering Facility: [facility] Address: [address] [place] [id number] Result Comment: A: # 1 Positive for malignant cells, non-small cell carcinoma Dr. Ashley / Manisha Marie reported onsite to Dr. Anderson on 06/14/22. Each letter in the above intra-procedural assessment refers to a unique site. The specific site is indicated in the final diagnosis portion of the report. Each number in this assessment references a discrete evaluation episode. Intra-procedural assessment performed at [facility], [address] [place] [address] Performed By: #### L UNGCY, FSHTPA #### [facility] CLIA [id number] [address] [place] [address] [place] #### [place] #### [facility] CLIA [id number] [address] [place] [address] [place] CASE REPORT Normal [facility] Comment on above: Order Comment: Speci men Type: SPECIMEN OBTAINED BY ASPIRATION Ordering Facility: [facility] Address: [address] [place] [address] Result Comment: [facility] Cytology Report Case: [id number] Authorizing Provider: Henri Anderson MD Collected: 06/14/2022 09:28 AM Ordering Location: [facility] Received: 06/14/2022 10:46 AM Endoscopy - ENDO Pathologist: Jimi Ashley MD Specimen: EBUS TRANSBRONCHIAL FINE NEEDLE ASPIRATE, LYMPH NODE, 10R Performed By: #### L UNGCY, FSHTPA #### [facility] CLIA [id number] [address] [place] [address] [place] #### [place] #### [facility] CLIA [id number] [address] [place] [address] [place] CLINICAL HISTORY Normal [facility] Comment on above: Order Comment: Speci men Type: SPECIMEN OBTAINED BY ASPIRATION Ordering Facility: [facility] Address: [address] [place] [address] Result Comment: Pre- op diagnosis: Adenopathy [R59.9] Performed By: #### L UNGCY, FSHTPA #### [facility] CLIA [id number] [address] [place] [address] [place] #### [place] #### [facility] CLIA [id number] [address] [place] [address] [place] FINAL DIAGNOSIS Normal [facility] Comment on above: Order Comment: Speci men Type: SPECIMEN OBTAINED BY ASPIRATION Ordering Facility: [facility] Address: [address] [place] [address] Result Comment: A - EBUS TRANSBRONCHIAL FINE NEEDLE ASPIRATE, LYMPH NODE - 10R Positive for malignant cells. Adenocarcinoma (see comment). The following cell blocks were associated with this case: A1 Cell Block, Alcohol Fixed Performed By: #### L UNGCY, FSHTPA #### [facility] CLIA [id number] [address] [place] [address] [place] #### [place] #### [facility] CLIA [id number] [address] [place] [address] STATES [facility] FINAL PERFORMING LAB Normal [facility] Comment on above: Order Comment: Speci men Type: SPECIMEN OBTAINED BY ASPIRATION Ordering Facility: [facility] Address: [address] [place] [address] Result Comment: Tech nical component, chute operator screening performed at [facility], [address] [place] [address] CLIA# [id number] Diagnostic interpretation performed at [facility], [address] [place] [address] CLIA# [id number] Prototype Sewer: Jimi Ashley M.D. Performed By: #### L UNGCY, FSHTPA #### [facility] CLIA [id number] [address] [place] [address] #### [place] #### [facility] CLIA [id number] [address] [place] [address] STATES [facility] GROSS DESCRIPTION Normal [facility] Comment on above: Order Comment: Speci men Type: SPECIMEN OBTAINED BY ASPIRATION Ordering Facility: [facility] Address: [address] [place] [address] Result Comment: A. E BUS TRANSBRONCHIAL FINE NEEDLE ASPIRATE, LYMPH NODE 30 cc hazy red CytoLyt with material. ThinPrep and Cell Block prepared and 2 smears (1 air dried and 1 fixed). Performed By: #### L UNGCY, FSHTPA #### [facility] CLIA [id number] [address] [facility] [id number] [id number] [place] #### [place] #### [facility] CLIA [id number] [address] [id number] [place] FISH FOR ALK (2P23) THINPREP NSCLCon 06-14-2022 FISH FOR ALK (2P23) THINPREP NSCLC Normal [facility] Comment on above: Order Comment: Speci men Type: SPECIMEN OBTAINED BY ASPIRATION Ordering Facility: [facility] Address: [address] [id number] Result Comment: FISH FOR ALK (2P23) THINPREP NSCLC Laboratory Accession Number: [id number] Case: [id number] Sample Type: FNA Sample Description: TRANSBRONCHIAL FNA, [...] et al. Anaplastic Lymphoma Kinase Inhibition in Aoo-Ryyoj-Wsil Lung Cancer. N Engl J Med 2010;363:1729-7360. 2) Courtney NI, Osvaldo PT, Sushil MN, et al. Molecular Testing Guideline for the Selection of Lung Cancer Patients for EGFR and ALK Tyrosine Kinase Inhibitors: Guideline from the College [employer] [place] [employer], International Association for the Study of Lung Cancer, and Association for Molecular Pathology. J Mol Diagn 2013;15:415-53. 3) NCCN Clinical Practice Guidelines in Oncology: Non-Small Cell Lung Cancer, National Comprehensive Cancer Network, Inc. Available at NCCN.org. 4) Buzz SJ, Porsche M, Ethan S, et al. Unique clinicopathologic features characterize ALK-rearranged lung adenocarcinoma in the western population. Clin Cancer Res 2009;15:0844-9933. LIMITATIONS: This test will not identify all rearrangements in ALK. Rare, cryptic abnormalities may be below the resolution of the assay, or may otherwise be undetected. Specimen size, quality or representativeness can affect the quality of the results. DISCLAIMER: This test was developed and its performance characteristics determined by the [facility] [place] ([facility]). It has not been cleared or approved by the FDA. [facility] is regulated under CLIA as qualified to perform high- complexity testing. This test is used for clinical purposes. It should not be regarded as investigational or for research. Interpretation performed at [facility], [address] [place] [address]. CLIA Number: [id number] As reviewed by Francesca Aguilera MD, PhD Performed By: #### L UNGCY, FSHTPA #### [facility] CLIA [id number] [address] [place], [place] [address]K [address] OF [facility] #### [place] #### [facility] CLIA [id number] [address] [place] [address] OF [facility] LUNG CANCER HOTSPOT GENE HERNANDEZ EL CYTOLOGYon 06-14-2022 LUNG CANCER HOTSPOT GENE PANEL CYTOLOGY Normal [facility] Comment on above: Order Comment: Speci men Type: SPECIMEN OBTAINED BY ASPIRATION Ordering Facility: [facility] Address: [address] [place] [address] Result Comment: Lung Cancer Hotspot Gene Panel Laboratory Accession Number: [id number] Case #: [id number] Part ID: A Sample Type: FNA % [...] In-frame deletions within exon 19 and the [id number] mutation in exon 21 account for 90% [...] (Josesito J, et al. J Clin Oncol 2013;31:8034-8428; Corie S, Barakat S. Veronique Oncol 2012;23(March (Suppl. 10)):v748-3062. Vaughn Shepard. Lancet Oncol 2011;12:175-80) refs 16, [...] are rarely found in combination with other customer service driver mutations such as EGFR, BRAF, HER2, ALK (more content not included)... Performed By: #### L UNGCY, FSHTPA #### [facility] CLIA [id number] [address] [facility] DESK [id number] [id number] [facility] #### [place] #### [facility] CLIA [id number] [address] [id number] [facility] [place] NURSING PROGon 06-14-2022 NURSING PROG HNO ID: [id number] Author: Heidi Dela Cruz RN Service: ? Author Type: Registered Nurse Type: Nursing Progress Note Filed: 06/14/2022 11:40 AM Note Text: 1130 right chest medi port deaccessed 1135 pt given written and verbal dc instructions. Pt verbalized understanding [facility] NURSING PROG HNO ID: [id number] Author: Regina Short RN Service: Nursing Author [...] (RECOMMENDATION): None Electronically Signed By: Regina Short [facility] PD-L1 22C3on 06-14-2022 PD-L1 BY IMMUNOHISTOCHEMISTY [facility] Comment on above: Order Comment: Speci men Type: TISSUE SPECIMEN Ordering Facility: [facility] Address: [address] [place], [place] [phone] Result Comment: Immu nohistochemistry for PD-L1 expression Tumor Cells Positive: less than 1% Block Analyzed: A1 PD-L1 Clone: 22C3 Comment: N/A ME/ 06/22/2022 Immunohistochemistry was performed on formalin fixed paraffin-embedded tissue using the mouse monoclonal antibody 22C3 ([employer]; [place], [place]) followed by ultrasensitive bright field detection (Optiview with amplification [[employer], [place]]). Criteria for interpretation require that tumor cells show membrane staining of any intensity for PD-L1. Laboratory Developed Test (LDT) Disclaimer: Positive and negative controls stain appropriately. Performance characteristics of immunohistochemical, immunofluorescent and chromogenic in-situ hybridization tests have been determined by [facility]'s [facility]ology and [facility] [place] ([facility]) in a manner consistent with CLIA requirements. One or more of these tests have not been cleared or approved by the FDA. [facility] is regulated under CLIA as qualified to perform high-complexity testing. These tests are used for clinical purposes. They should not be regarded as investigational or for research. Electronically signed out by: Ralph Galvez MD Performed By: #### S , [id number] #### [facility] CLIA [id number] [address] [place] [address] OF [place] SURGICAL PATHOLOGYon CASE REPORT Normal [facility] Comment on above: Order Comment: Speci men Type: TISSUE SPECIMEN Ordering Facility: [facility] Address: [address] [place] [phone] Result Comment: Surg [facility] Pathology Report Case: [id number] Authorizing Provider: Henri Anderson MD Collected: 06/14/2022 10:03 AM Ordering Location: [facility] Received: 06/14/2022 11:35 AM Endoscopy - ENDO Pathologist: Ralph Galvez V, MD Specimens: A) - TRANSBRONCHIAL BIOPSY, 10R B) - ENDOBRONCHIAL BIOPSY, right main stem Performed By: #### S , [id number] #### [facility] CLIA [id number] [address] [place] CLINICAL HISTORY Normal [facility] Comment on above: Order Comment: Speci men Type: TISSUE SPECIMEN Ordering Facility: [facility] Address: [address] [address] Result Comment: Pre- op diagnosis: Adenopathy [R59.9] Performed By: #### S , [id number] #### [facility] CLIA [id number] [address] [place] [address] OF [place] FINAL DIAGNOSIS Normal [facility] Comment on above: Order Comment: Speci men Type: TISSUE SPECIMEN Ordering Facility: [facility] Address: [address] [address] Result Comment: 1. L ymph node, 10 R, EBUS transbronchial biopsy (A) - Adenocarcinoma. 2. Right lung, mainstem, endobronchial biopsy (B) - Fragments of bronchial mucosa with necrosis and atypical squamous epithelium. ME/ 06/15/2022 Performed By: #### S , [id number] #### [facility] CLIA [id number] [address] [place] [address] STATES OF [facility] FINAL PERFORMING LAB Normal [facility] Comment on above: Order Comment: Speci men Type: TISSUE SPECIMEN Ordering Facility: [facility] Address: [address] [place] [address] Result Comment: Diag nostic interpretation performed at [facility], [facility] [address] CLIA# [id number] Prototype Sewer: Dimitri Kelley M.D. Performed By: #### S , [id number] #### [facility] CLIA [id number] [address] [place] [address] [place] GROSS DESCRIPTION Normal [facility] Comment on above: Order Comment: Speci men Type: TISSUE SPECIMEN Ordering Facility: [facility] Address: [address] [address] Result Comment: A. T RANSBRONCHIAL BIOPSY Received [...] 2022 5:45 PM Gross examination performed at [facility], [facility] [place] [address] Performed By: #### S , [id number] #### [facility] CLIA [id number] [address] [facility] DESK [id number] [place] 06-13-2022 CNPN Telephone (ScheduleSoftO) -- RAGHAVENDRA HEARD ([id number]) 1945 M Date Time Provider Department 06/13/22 HENRI ANDERSON [employer] During your visit today, we recorded the following information about you: Yonyugo Booker 06/13/2022 11:29 AM Signed Spoke with the patient confirmed 8 am arrival time for 9 am appointment at [facility] Pratikfrederick Booker Allergies As of Date: 06/13/2022 (No Known Allergies) Date Reviewed: 05/30/2022 Reviewed by: Skylar Gaspar - Fully Assessed Reason for Visit: Appointment [...] Encounter Status:Closed by MICHAEL BOOKER on 06/13/22 [facility] CBC W Auto Differential pane l (Bld)on 05-30-2022 Basophils (Bld) [#/Vol] 0.03 10*3/uL <0.11 k/uL [facility] Basophils/100 WBC (Bld) 0.7 % [facility] Differential cell count method Nom (Bld) Auto [facility] Eosinophils (Bld) [#/Vol] 0.08 10*3/uL <0.46 k/uL [facility] Eosinophils/100 WBC (Bld) 1.8 % [facility] Erythrocyte distribution width (RBC) [Ratio] 13.4 % 11.5 - 15.0 % [facility] Hematocrit (Bld) [Volume fraction] 32.4 % Low 39.0 - 51.0 % [facility] Hemoglobin (Bld) [Mass/Vol] 11.0 g/dL Low 13.0 - 17.0 g/dL [facility] Immature granulocytes (Bld) [#/Vol] 0.03 10*3/uL <0.10 k/uL [facility] Immature granulocytes/100 WBC (Bld) 0.7 % [facility] Lymphocytes (Bld) [#/Vol] 1.76 10*3/uL 1.00 - 4.00 k/uL [facility] Lymphocytes/100 WBC (Bld) 40.1 % [facility] MCH (RBC) [Entitic mass] 35.5 pg High 26.0 - 34.0 pg [facility] MCHC (RBC) [Mass/Vol] 34.0 g/dL 30.5 - 36.0 g/dL [facility] MCV (RBC) [Entitic vol] 104.5 fL High 80.0 - 100.0 fL [facility] Monocytes (Bld) [#/Vol] 0.42 10*3/uL <0.87 k/uL [facility] Monocytes/100 WBC (Bld) 9.6 % [facility] Neutrophils (Bld) [#/Vol] 2.07 10*3/uL 1.45 - 7.50 k/uL [facility] Neutrophils/100 WBC (Bld) 47.1 % [facility] Nucleated RBC (Bld) [#/Vol] <0.01 k/uL [facility] Nucleated RBC/100 WBC (Bld) [Ratio] 0.0 /100 WBC [facility] Platelet mean volume (Bld) [Entitic vol] 9.9 fL 9.0 - 12.7 fL [facility] Platelets (Bld) [#/Vol] 198 10*3/uL 150 - 400 k/uL [facility] RBC (Bld) [#/Vol] 3.10 10*6/uL Low 4.20 - 6.0 0 m/uL [facility] WBC (Bld) [#/Vol] 4.39 10*3/uL 3.70 - 11.00 k/uL [facility] Comprehensive metabolic 2000 panelon 05-30-2022 Albumin [Mass/Vol] 4.0 g/dL 3.9 - 4.9 g/dL [facility] ALP [Catalytic activity/Vol] 55 U/L 38 - 113 U/L [facility] ALT [Catalytic activity/Vol] 19 U/L 10 - 54 U/L [facility] Anion gap [Moles/Vol] 8 mmol/L Low 9 - 18 mmol/L [facility] AST [Catalytic activity/Vol] 24 U/L 14 - 40 U/L [facility] Bilirubin [Mass/Vol] 0.2 mg/dL 0.2 - 1 .3 mg/dL [facility] Calcium [Mass/Vol] 9.1 mg/dL 8.5 - 10. 2 mg/dL [facility] Chloride [Moles/Vol] 102 mmol/L 97 - 10 5 mmol/L [facility] CO2 [Moles/Vol] 29 mmol/L 22 - 30 mmol/L [facility] Creatinine [Mass/Vol] 0.97 mg/dL 0.73 - 1.22 mg/dL [facility] Estimated Glomerular Filtration Rate 81 mL/min/1.73m >=60 mL/min/1.73 m [facility] Glucose [Mass/Vol] 116 mg/dL High 74 - 99 mg/dL [facility] Potassium [Moles/Vol] 4.2 mmol/L 3.7 - 5.1 mmol/L [facility] Protein [Mass/Vol] 7.4 g/dL 6.3 - 8.0 g/dL [facility] Sodium [Moles/Vol] 139 mmol/L 136 - 144 mmol/L [facility] Urea nitrogen [Mass/Vol] 24 mg/dL 9 - 24 mg/dL [facility] BRIEF OP NOTon 05-23-2022 BRIEF OP NOT HNO ID: [id number] Author: Ry Espinoza MD Service: Interventional Radiology Author Type: Physician Type: Brief Op Note Filed: 05/23/2022 1:04 PM Note Text: BRIEF OPERATIVE / PROCEDURE NOTE LOG ID: [id number] SURGERY/PROCEDURE DATE: 05/23/2022 INCISION/PROCEDURE START TIME: 12:37 PM INCISION CLOSE/PROCEDURE END TIME: 1:01 PM SURGEON(S)/PROCEDURALIST(S ) AND NUCLEAR MEDICINE TECHNICIAN(S): Surgeon(s) and Role: * Ry Espinoza MD - Primary No Additional Staff SURGERY/PROCEDURE(S): Port Placement ANESTHESIA: Procedural Sedation FINDINGS: see PACS. ESTIMATED BLOOD LOSS: less than 10 mls SPECIMENS: None COMPLICATIONS: None 8 Fr [place] Port, ready to use. PRE-OP/PRE-PROCEDURE DIAGNOSIS: Lung Cancer POST-OP/POST-PROCEDURE DIAGNOSIS: Same as Preop SIGNATURE: Ry Espinoza MD PATIENT NAME: Raghavendra Heard DATE: May 23, 2022 TIME: 1:04 PM [facility] HISTORY PHYSICALon HISTORY PHYSICAL HNO ID: [id number] Author: Ry Espinoza MD Service: Interventional Radiology [...] DATE: May 23, 2022 TIME: 12:20 PM [facility] IR FLU GD MICHAEL CVA PLACEon IR FLU GD MICHAEL CVA PLACE * * *Final Report* * * DATE OF EXAM: May 23 2022 1:03PM [facility] 7444 - IR FLU GD MICHAEL CVA [...] performed by the: attending radiologist, without an casting assistant. The attending radiologist performed the following procedural [...] and agree with the report as written. Rack Carrier: LAKSHMI Transcribe Date/Time: May 23 2022 1:05P Dictated by : RY ESPINOZA MD This examination was interpreted and the report reviewed and electronicall (more content not included)... [facility] IR PORTOCATH PLACEMENTon IR PORTOCATH PLACEMENT * * *Final Report * * * DATE OF EXAM: May 23 2022 1:03PM [facility] 8966 - IR PORTOCATH PLACEMENT / PROCEDURE [...] performed by the: attending radiologist, without an casting assistant. The attending radiologist performed the following procedural [...] and agree with the report as written. Rack Carrier: PSCB Transcribe Date/Time: May 23 2022 1:05P Dictated by : RY ESPINOZA MD This examination was interpreted and the report reviewed and electronically (more content not included)... [facility] IR US VASCULAR ACCESS GUIDEo n 05-23-2022 IR US VASCULAR ACCESS GUIDE * * *Final Report* * * DATE OF EXAM: May 23 2022 1:03PM [facility] 7765 - IR US VASCULAR ACCESS GUIDE [...] performed by the: attending radiologist, without an casting assistant. The attending radiologist performed the following procedural [...] and agree with the report as written. Rack Carrier: PSCB Transcribe Date/Time: May 23 2022 1:05P Dictated by : RY ESPINOZA MD This examination was interpreted and the report reviewed and electroni (more content not included)... Normal [facility] PT EDon 05-23-2022 PT ED HNO ID: [id number] Author: Meli Newman RN Service: Nursing Author Type: Registered Nurse Type: Patient Education Filed: 05/23/2022 12:18 PM Note Text: PATIENT EDUCATION TOPIC: PROCEDURE / SURGERY: Procedure/Surgery: port placement PATIENT NAME: Raghavendra Heard PATIENT LOCATION: [facility] Proc/[facility] Proc READINESS TO LEARN COGNITIVE ABILITY: Alert [...] None Electronically Signed By: Meli Newman Normal [facility] GLUCOSE, BLOOD (POC)on 04-28 Glucose [Mass/Vol] 103 mg/dL Abnormal 74 - 99 mg/dL [facility] Comment on above: Location:[facility], [address] , [place], [place], [address] The Accu-Chek Inform II glucose meter has [...] results Abnormal [facility] PET+CT Guidance for localiza tion of tumor [...] any questions regarding this interpretation, please call [phone]. If you are unable to reach us at the number above, please feel free to contact [facility] eRadiology at [phone]. 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 Computer Repair Technician (topogram) images: No additional findings. DIVISION OF RADIOLOGY Provider, 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 Computer Repair Technician (topogram) images: No additional findings. IMPRESSION IMPRESSION: [...] any questions regarding this interpretation, please call [phone]. If you are (more content not included)... [facility] Radiology Study observation (narrative) [facility] PET+CT Guidance for localiza tion of tumor of Skull base to mid-thigh-- W [id number] IVOrdered By: Ccf Provider on 04-28-20[address] [facility] CT Chest WO contraston 03-30 IMPRESSION: 1. [...] any questions regarding this interpretation, please call [phone]. If you are unable to reach us at the number above, please feel free to contact [facility] at [phone]. DIVISION OF RADIOLOGY * * *Final Report* * * DATE OF EXAM: Mar 30 2022 8:52AM [facility] 0541 - CT CHEST WO IVCON / [...] cm in diameter. DIVISION OF RADIOLOGY [facility], [facility] * * *Final Report* * * DATE OF EXAM: Mar 30 2022 8:52AM [facility] 0541 - CT CHEST WO IVCON / [...] any questions regarding this interpretation, please call [phone]. If you are unable to reach us at the number above, please feel free to contact [facility] eRadiology at [phone]. [facility] Radiology Study observation (narrative) [facility] CT Chest WO contrastOrdered By: Ccf Provider on 03-30-2022 [facility] IMMUNOFIXATION SCREEN, SERUM on 10-02-2021 Interpretation (MPA) Atypical restricted bands are present in the IgG and lambda regions. Consistent with IgG lambda monoclonal gammopathy. [facility] Interpretation and review of laboratory results Abnormal [facility] MPA Result M protein is present. Abnormal No M protein is identified. [facility] Staff Review (MPA) Reviewed by Francine Garcia MD [facility] PROTEIN ELECTROPHORESIS SERU M WITH KAYLA (P)Ordered By: Regina Bernal on 10-02-2021 Albumin [Mass/Vol] 3.96 g/dL 3.37 - 4. 23 g/dL [facility] Alpha 1 globulin Elph [Mass/Vol] 0.29 g/dL 0.18 - 0.31 g/dL [facility] Alpha 2 globulin Elph [Mass/Vol] 0.79 g/dL 0.52 - 0.97 g/dL [facility] Beta globulin Elph [Mass/Vol] 0.83 g/dL Low 0.84 - 1.36 g/dL [facility] Comment (Serum Prot Electro) Monoclonal Protein analysis (immunofixation) is not indicated. [facility] Gamma globulin Elph (Body fld) [Mass fraction] 2.03 g/dL High 0.70 - 1.44 g/dL [facility] Interpretation and review of laboratory results Abnormal [facility] M-Protein Location Gamma Fraction 1 [facility] Protein Fractions [Interp] An M protein is identified on protein electrophoresis. Abnormal No definitive M protein is identified on protein electrophor esis. [facility] Protein.monoclonal Elph [Mass/Vol] 1.60 g/dL High NINF - 0.00 g/dL [facility] SPE Staff Review Reviewed by Francine Garcia MD [facility] CBC W Auto Differential pane l (Bld)on 09-29-2021 Basophils (Bld) [#/Vol] 0.03 10*3/uL [facility] Basophils/100 WBC (Bld) 0.6 % [facility] Differential cell count method Nom (Bld) Auto [facility] Eosinophils (Bld) [#/Vol] 0.05 10*3/uL [facility] Eosinophils/100 WBC (Bld) 0.9 % [facility] Erythrocyte distribution width (RBC) [Ratio] 14.0 % 11.5 - 15.0 % [facility] Hematocrit (Bld) [Volume fraction] 38.7 % Low 39.0 - 51.0 % [facility] Hemoglobin (Bld) [Mass/Vol] 13.3 g/dL 13.0 - 17.0 g/dL [facility] Immature granulocytes (Bld) [#/Vol] [facility] Immature granulocytes/100 WBC (Bld) 0.2 % [facility] Interpretation and review of laboratory results Abnormal [facility] Lymphocytes (Bld) [#/Vol] 1.80 10*3/uL [facility] Lymphocytes/100 WBC (Bld) 34.1 % [facility] MCH (RBC) [Entitic mass] 36.5 pg High 26.0 - 34.0 pg [facility] MCHC (RBC) [Mass/Vol] 34.4 g/dL 30.5 - 36.0 g/dL [facility] MCV (RBC) [Entitic vol] 106.3 fL High 80.0 - 100.0 fL [facility] Monocytes (Bld) [#/Vol] 0.65 10*3/uL NINF [facility] Monocytes/100 WBC (Bld) 12.3 % [facility] Neutrophils (Bld) [#/Vol] 2.74 10*3/uL [facility] Neutrophils/100 WBC (Bld) 51.9 % [facility] Nucleated RBC (Bld) [#/Vol] NINF [facility] Nucleated RBC/100 WBC (Bld) [Ratio] 0.0 % /100 WBC [facility] Platelet mean volume (Bld) [Entitic vol] 10.3 fL 9.0 - 12.7 fL [facility] [facility] Platelets (Bld) [#/Vol] 192 10*3/uL [facility] RBC (Bld) [#/Vol] 3.64 10*6/uL Low 4.20 - 6.0 0 m/uL [facility] WBC (Bld) [#/Vol] 5.28 10*3/uL [facility] This is an appended report. These results have been appended to a previously verified report. [facility] CT Chest W contrast Eleanor IMPRESSION: 1. [...] any questions regarding this interpretation, please call [phone]. If you are unable to reach us at the number above, please feel free to contact [facility] eRadiology at [phone]. DIVISION OF RADIOLOGY * * *Final Report* * * DATE OF EXAM: Sep 29 2021 10:54AM [facility] 0539 - CT CHEST W IVCON / [...] DATE OF EXAM: Sep 29 2021 10:54AM [facility] 0539 - CT CHEST W IVCON / [...] any questions regarding this interpretation, please call [phone]. If you are unable to reach us at the number above, please feel free to contact [facility] eRadiology at [phone]. [facility] Radiology Study observation (narrative) [facility] CT Chest W contrast IVOrdere d By: [facility] Provider on 09-29-2021 [facility] Comprehensive metabolic 2000 panelOrdered By: Virginie Gonzalez on 09-29-2021 Albumin [Mass/Vol] 4.3 g/dL 3.9 - 4.9 g/dL [facility] ALP [Catalytic activity/Vol] 58 U/L 38 - 113 U/L [facility] ALT [Catalytic activity/Vol] 28 U/L 10 - 54 U/L [facility] Anion gap [Moles/Vol] 10 mmol/L 9 - 18 mmol/L [facility] AST [Catalytic activity/Vol] 36 U/L 14 - 40 U/L [facility] Bilirubin [Mass/Vol] 0.4 mg/dL 0.2 - 1 .3 mg/dL [facility] Calcium [Mass/Vol] 9.5 mg/dL 8.5 - 10. 2 mg/dL [facility] Chloride [Moles/Vol] 99 mmol/L 97 - 10 5 mmol/L [facility] CO2 [Moles/Vol] 28 mmol/L 22 - 30 mmol/L [facility] Creatinine [Mass/Vol] 0.88 mg/dL 0.73 - 1.22 mg/dL [facility] GFR/1.73 sq M.predicted among non-blacks MDRD (S/P/Bld) [Vol rate/Area] 90 mL/min/{1.73_m2} - PINF [facility] Comment on above: Estimated Glomerular Filtration Rate [...] 119 mg/dL High 74 - 99 mg/dL [facility] Comment on above: The [place] [employer] (ADA) provides guidance for [...] Standards of Medical Care in Diabetes 2016, [place] [employer]. Diabetes Care. 2016.39(Suppl 1). Interpretation and review of laboratory results Abnormal [facility] Potassium [Moles/Vol] 4.2 mmol/L 3.7 - 5.1 mmol/L [facility] Protein [Mass/Vol] 8.5 g/dL High 6.3 - 8.0 g/dL [facility] Sodium [Moles/Vol] 137 mmol/L 136 - 144 mmol/L [facility] Urea nitrogen [Mass/Vol] 27 mg/dL High 9 - 24 mg/dL [facility] IMMUNOGLOBULINS GAMon 2021 IgA [Mass/Vol] 55 mg/dL Low 70 - 400 mg/dL [facility] IgG [Mass/Vol] 2389 mg/dL High 700 - 1600 mg/dL [facility] IgM [Mass/Vol] 12 mg/dL Low 40 - 230 mg/dL [facility] Interpretation and review of laboratory results Abnormal [facility] KAPPA/LOMBARDI,FREE,SEROrdered B y: Alina Newman on 09-29-2021 Immunoglobulin light chains.kappa.free (S) [Mass/Vol] 16.1 mg/L 3.3 - 19.4 mg/L [facility] Immunoglobulin light chains.kappa/Immunoglo bulin light chains.lambda (S) [Mass ratio] 0.19 Low 0.26 - 1.65 [facility] Immunoglobulin light chains.lambda.free [Mass/Vol] 85.8 mg/L High 5.7 - 26.3 mg/L [facility] Interpretation and review of laboratory results Abnormal [facility] Rarely, increased se rum free light chains levels may not be detected or accurately quantified due to prozone phenomenon or in high viscosity samples using this immunoturbidimetric assay. Correlation with other laboratory results and clinical findings is recommended. The Binding Site [employer] instrument is used. Results obtained with different assay methods or kits cannot be used interchangeably. [facility] PROTEIN TOTAL BLDon 09-30-19 22 Protein [Mass/Vol] 7.9 g/dL 6.3 - 8.0 g/dL [facility] Protein [Mass/Vol]on 022 Interpretation and review of laboratory results Normal [facility] Vital Signs Date Time Vital Sign Value Performing Clinician Facility 04-17-2024 09:50-0400 Body height 172.7 cm Ja Becker MD Work Phone: [facility] 04-17-2024 09:50-0400 Body mass index (BMI) [Ratio] 23.81 kg/m2 Ja Becker MD Work Phone: [facility] 04-17-2024 09:50-0400 Body temperature 97.3 [degF] Ja Becker MD Work Phone: [facility] 04-17-2024 09:50-0400 Body weight 71 kg Ja Becker MD Work Phone: [facility] 04-17-2024 09:50-0400 Diastolic blood pressure 72 mm[Hg] Ja Becker MD Work Phone: [facility] 04-17-2024 09:50-0400 Heart rate 67 /min Ja Becker MD Work Phone: [facility] 04-17-2024 09:50-0400 Respiratory rate 16 /min Ja Becker MD Work Phone: [facility] 04-17-2024 09:50-0400 SaO2% (BldA) [Mass fraction] 97 % Ja Becker MD Work Phone: [facility] 04-17-2024 09:50-0400 Systolic blood pressure 142 mm[Hg] Ja Becker MD Work Phone: [facility] 04-16-2024 14:26-0400 Body height 172.7 cm Stuart Wright MD Work Phone: [facility] 04-16-2024 14:26-0400 Body mass index (BMI) [Ratio] 23.11 kg/m2 Stuart Wright MD Work Phone: [facility] [employer] [facility] 04-16-2024 14:26-040 Body weight 68.95 kg Stuart Wright MD Work Phone: [facility] 04-16-2024 14:26-0400 Diastolic blood pressure 62 mm[Hg] Stuart Wright MD Work Phone: [facility] 04-16-2024 14:26-0400 Heart rate 62 /min Stuart Wright MD Work Phone: [facility] [employer] [facility] 04-16-2024 14:26-0400 Systolic blood pressure 146 mm[Hg] Stuart Wright MD Work Phone: [facility] 04-09-2024 15:03-0400 Body height 175.3 cm Kylee Hemmer PA Work Phone: [facility] 04-09-2024 15:03-0400 Body mass index (BMI) [Ratio] 22.86 kg/m2 Kylee Hemmer PA Work Phone: [facility] 04-09-2024 15:03-0400 Body temperature 97.7 [degF] Kylee Hemmer PA Work Phone: [facility] 04-09-2024 15:03-0400 Body weight 70.22 kg Kylee Hemmer PA Work Phone: [facility] 04-09-2024 15:03-0400 Diastolic blood pressure 66 mm[Hg] Kylee Hemmer PA Work Phone: [facility] 04-09-2024 15:03-0400 Heart rate 62 /min Kylee Hemmer PA Work Phone: [facility] 04-09-2024 15:03-0400 Respiratory rate 16 /min Kylee Benavidesmer PA Work Phone: [facility] 04-09-2024 15:03-0400 SaO2% (BldA) [Mass fraction] 97 % Kylee Benavidesmer PA Work Phone: [facility] 04-09-2024 15:03-0400 Systolic blood pressure 138 mm[Hg] Kylee Benavidesmer PA Work Phone: [facility] 03-24-2024 12:42-0400 Body mass index (BMI) [Ratio] 23.47 kg/m2 Flynn Maline PA-C Work Phone: [facility] 03-24-2024 12:42-0400 Body weight 70 kg Flynn Maline PA-C Work Phone: [facility] 03-24-2024 12:42-0400 Diastolic blood pressure 68 mm[Hg] Flynn Maline PA-C Work Phone: [facility] 03-24-2024 12:42-0400 Heart rate 55 /min Flynn Maline PA-C Work Phone: [facility] 03-24-2024 12:42-0400 Systolic blood pressure 145 mm[Hg] Flynn Maline PA-C Work Phone: [facility] 2024 09:36-0400 Body mass index (BMI) [Ratio] 23.2 kg/m2 Glenys Kitty PA-C Work Phone: [facility] 2024 09:36-0400 Body temperature 97.11 [degF] Glenys Kitty PA-C Work Phone: [facility] 2024 09:36-0400 Body weight 69.2 kg Glenys Kitty PA-C Work Phone: [facility] 2024 09:36-0400 Diastolic blood pressure 73 mm[Hg] Glenys Kitty PA-C Work Phone: [facility] 2024 09:36-0400 Heart rate 64 /min Glenys Kitty PA-C Work Phone: [facility] 2024 09:36-0400 Respiratory rate 18 /min Glenys Kitty PA-C Work Phone: [facility] 2024 09:36-0400 SaO2% (BldA) [Mass fraction] 97 % Glenys Kitty PA-C Work Phone: [facility] 2024 09:36-0400 Systolic blood pressure 124 mm[Hg] Glenys Kitty PA-C Work Phone: [facility] 10-29-2023 10:21-0400 Body mass index (BMI) [Ratio] 23.07 kg/m2 Ja Becker MD Work Phone: [facility] 10-29-2023 10:21-0400 Body temperature 97.59 [degF] Ja Becker MD Work Phone: [facility] 10-29-2023 10:21-0400 Body weight 68.8 kg Ja Becker MD Work Phone: [facility] 10-29-2023 10:21-0400 Diastolic blood pressure 74 mm[Hg] Ja Becker MD Work Phone: [facility] 10-29-2023 10:21-0400 Heart rate 69 /min Ja Becker MD Work Phone: [facility] 10-29-2023 10:21-0400 Respiratory rate 18 /min Ja Becker MD Work Phone: [facility] 10-29-2023 10:21-0400 SaO2% (BldA) [Mass fraction] 94 % Ja Becker MD Work Phone: [facility] 10-29-2023 10:21-0400 Systolic blood pressure 134 mm[Hg] Ja Becker MD Work Phone: [facility] 09-20-2023 12:51-0400 Body weight 69 kg Lexus Lexus DO Work Phone: [facility] 09-20-2023 12:51-0400 Diastolic blood pressure 66 mm[Hg] Lexus Lexus DO Work Phone: [facility] 09-20-2023 12:51-0400 Heart rate 56 /min Lexus Lexus DO Work Phone: [facility] 09-20-2023 12:51-0400 Systolic blood pressure 129 mm[Hg] Lexus Lexus DO Work Phone: [facility] 05-14-2023 09:32-0500 Body height 172.7 cm Ja Becker MD Work Phone: [facility] 05-14-2023 09:32-0500 Body temperature 97.59 [degF] Ja Becker MD Work Phone: [facility] 05-14-2023 09:32-0500 Body weight 69.31 kg Ja Becker MD Work Phone: [facility] 05-14-2023 09:32-0500 Diastolic blood pressure 64 mm[Hg] Ja Becker MD Work Phone: [facility] 05-14-2023 09:32-0500 Heart rate 55 /min Ja Becker MD Work Phone: [facility] 05-14-2023 09:32-0500 Respiratory rate 18 /min Ja Becker MD Work Phone: [facility] 05-14-2023 09:32-0500 SaO2% (BldA) [Mass fraction] 94 % Ja Becker MD Work Phone: [facility] 05-14-2023 09:32-0500 Systolic blood pressure 136 mm[Hg] Ja Becker MD Work Phone: [facility] 04-02-2023 11:43-0400 Diastolic blood pressure 52 mm[Hg] Chair Merino Work Phone: [facility] 04-02-2023 11:43-0400 Systolic blood pressure 99 mm[Hg] Chair Merino Work Phone: [facility] 04-02-2023 10:31-0400 Heart rate 56 /min Chair Aria Work Phone: [facility] 04-02-2023 10:31-0400 Respiratory rate 18 /min Chair Aria Work Phone: [facility] 04-02-2023 10:31-0400 SaO2% (BldA) [Mass fraction] 97 % Chair Aria Work Phone: [facility] 04-02-2023 09:40-0400 Body height 170.6 cm Amber Rodriguez APRN.SOUND CONTROLLER Work Phone: [facility] 04-02-2023 09:40-0400 Body temperature 97 [degF] Amber Rodriguez APRN.SOUND CONTROLLER Work Phone: [facility] 04-02-2023 09:40-0400 Body weight 70.03 kg Amber Rodriguez APRN.SOUND CONTROLLER Work Phone: [facility] 04-02-2023 09:40-0400 Diastolic blood pressure 63 mm[Hg] Amber Rodriguez APRN.SOUND CONTROLLER Work Phone: [facility] 04-02-2023 09:40-0400 Heart rate 70 /min Amber Rodriguez APRN.SOUND CONTROLLER Work Phone: [facility] 04-02-2023 09:40-0400 Respiratory rate 16 /min Amber Rodriguez APRN.SOUND CONTROLLER Work Phone: [facility] 04-02-2023 09:40-0400 SaO2% (BldA) [Mass fraction] 93 % Amber Rodriguez APRN.SOUND CONTROLLER Work Phone: [facility] 04-02-2023 09:40-0400 Systolic blood pressure 108 mm[Hg] Amber Rodriguez APRN.SOUND CONTROLLER Work Phone: [facility] 02-19-2023 09:36-0400 Body height 170.6 cm Ja Becker MD Work Phone: [facility] 02-19-2023 09:36-0400 Body temperature 97.39 [degF] Ja Becker MD Work Phone: [facility] 02-19-2023 09:36-0400 Body weight 70.03 kg Ja Becker MD Work Phone: [facility] 02-19-2023 09:36-0400 Diastolic blood pressure 65 mm[Hg] Ja Becker MD Work Phone: [facility] 02-19-2023 09:36-0400 Heart rate 71 /min Ja Becker MD Work Phone: [facility] 02-19-2023 09:36-0400 Respiratory rate 16 /min Ja Becker MD Work Phone: [facility] 02-19-2023 09:36-0400 SaO2% (BldA) [Mass fraction] 92 % Ja Becker MD Work Phone: [facility] 02-19-2023 09:36-0400 Systolic blood pressure 129 mm[Hg] Ja Becker MD Work Phone: [facility] 01-01-2023 10:08-0400 Body height 170.6 cm Ja Becker MD Work Phone: [facility] 01-01-2023 10:08-0400 Body temperature 97.81 [degF] Ja Becker MD Work Phone: [facility] 01-01-2023 10:08-0400 Body weight 71.58 kg Ja Becker MD Work Phone: [facility] 01-01-2023 10:08-0400 Diastolic blood pressure 70 mm[Hg] Ja Becker MD Work Phone: [facility] 01-01-2023 10:08-0400 Heart rate 60 /min Ja Becker MD Work Phone: [facility] 01-01-2023 10:08-0400 Respiratory rate 16 /min Ja Becker MD Work Phone: [facility] 01-01-2023 10:08-0400 SaO2% (BldA) [Mass fraction] 96 % Ja Becker MD Work Phone: [facility] 01-01-2023 10:08-0400 Systolic blood pressure 134 mm[Hg] Ja Becker MD Work Phone: [facility] 12-04-2022 14:48-0400 Body height 170.6 cm Amber Rodriguez APRN.SOUND CONTROLLER Work Phone: [facility] 12-04-2022 14:48-0400 Body temperature 97.9 [degF] Amber Rodriguez S3B MULTI SENSOR OPERATOR.SOUND CONTROLLER Work Phone: [facility] 12-04-2022 14:48-0400 Body weight 71.49 kg Amber Rodriguez APRN.SOUND CONTROLLER Work Phone: [facility] 12-04-2022 14:48-0400 Diastolic blood pressure 66 mm[Hg] Amber Rodriguez APRN.SOUND CONTROLLER Work Phone: [facility] 12-04-2022 14:48-0400 Heart rate 50 /min Amber Rodriguez APRN.SOUND CONTROLLER Work Phone: [facility] 12-04-2022 14:48-0400 Respiratory rate 16 /min Amber Rodriguez APRN.SOUND CONTROLLER Work Phone: [facility] 12-04-2022 14:48-0400 SaO2% (BldA) [Mass fraction] 97 % Amber Rodriguez APRN.SOUND CONTROLLER Work Phone: [facility] 12-04-2022 14:48-0400 Systolic blood pressure 136 mm[Hg] Amber Rodriguez APRN.SOUND CONTROLLER Work Phone: [facility] 10-31-2022 14:51-0400 Body height 170.6 cm Amber Rodriguez APRN.SOUND CONTROLLER Work Phone: [facility] 10-31-2022 14:51-0400 Body temperature 97.3 [degF] Amber Rodriguez APRN.SOUND CONTROLLER Work Phone: [facility] 10-31-2022 14:51-0400 Body weight 73.12 kg Amber Rodriguez S3B MULTI SENSOR OPERATOR.SOUND CONTROLLER Work Phone: [facility] 10-31-2022 14:51-0400 Diastolic blood pressure 63 mm[Hg] Amber Rodriguez S3B MULTI SENSOR OPERATOR.SOUND CONTROLLER Work Phone: [facility] 10-31-2022 14:51-0400 Heart rate 54 /min Amber Rodriguez S3B MULTI SENSOR OPERATOR.SOUND CONTROLLER Work Phone: [facility] 10-31-2022 14:51-0400 Respiratory rate 16 /min Amber Rodriguez S3B MULTI SENSOR OPERATOR.SOUND CONTROLLER Work Phone: [facility] 10-31-2022 14:51-0400 SaO2% (BldA) [Mass fraction] 97 % Amber Rodriguez S3B MULTI SENSOR OPERATOR.SOUND CONTROLLER Work Phone: [facility] 10-31-2022 14:51-0400 Systolic blood pressure 162 mm[Hg] Amber Rodriguez S3B MULTI SENSOR OPERATOR.SOUND CONTROLLER Work Phone: [facility] 10-02-2022 17:32-0400 Diastolic blood pressure 87 mm[Hg] [facility] 10-02-2022 17:32-0400 Heart rate 43 /min [facility] 10-02-2022 17:32-0400 Respiratory rate 16 /min [facility] 10-02-2022 17:32-0400 SaO2% (BldA) [Mass fraction] 100 % [facility] 10-02-2022 17:32-0400 Systolic blood pressure 179 mm[Hg] [facility] 10-02-2022 16:00-0400 Body height 173.99 cm [facility] 10-02-2022 16:00-0400 Body weight 79.4 kg [facility] 10-02-2022 15:59-0400 Body temperature 97.5 [degF] [facility] 10-02-2022 15:15-0400 Diastolic blood pressure 84 mm[Hg] Chair Merino Work Phone: [facility] 10-02-2022 15:15-0400 Heart rate 47 /min Chair Aria Work Phone: [facility] 10-02-2022 15:15-0400 Respiratory rate 18 /min Chair Aria Work Phone: [facility] 10-02-2022 15:15-0400 SaO2% (BldA) [Mass fraction] 99 % Chair Aria Work Phone: [facility] 10-02-2022 15:15-0400 Systolic blood pressure 170 mm[Hg] Chair Aria Work Phone: [facility] 09-11-2022 09:44-0400 Body temperature 97.59 [degF] Ja Becker MD Work Phone: [facility] 09-11-2022 09:44-0400 Body weight 74.12 kg Ja Becker MD Work Phone: [facility] 09-11-2022 09:44-0400 Diastolic blood pressure 66 mm[Hg] Ja Becker MD Work Phone: [facility] 09-11-2022 09:44-0400 Heart rate 48 /min Ja Becker MD Work Phone: [facility] 09-11-2022 09:44-0400 Respiratory rate 16 /min Ja Becker MD Work Phone: [facility] 09-11-2022 09:44-0400 SaO2% (BldA) [Mass fraction] 92 % Ja Becker MD Work Phone: [facility] 09-11-2022 09:44-0400 Systolic blood pressure 140 mm[Hg] Ja Becker MD Work Phone: [facility] 08-08-2022 09:11-0500 Body height 172.4 cm Amber Rodriguez APRN.SOUND CONTROLLER Work Phone: [facility] 08-08-2022 09:11-0500 Body temperature 97.39 [degF] Amber Rodriguez APRN.SOUND CONTROLLER Work Phone: [facility] 08-08-2022 09:11-0500 Body weight 73.94 kg Amber Rodriguez S3B MULTI SENSOR OPERATOR.SOUND CONTROLLER Work Phone: [facility] 08-08-2022 09:11-0500 Diastolic blood pressure 62 mm[Hg] Amber Rodriguez S3B MULTI SENSOR OPERATOR.SOUND CONTROLLER Work Phone: [facility] 08-08-2022 09:11-0500 Heart rate 60 /min Amber Rodriguez S3B MULTI SENSOR OPERATOR.SOUND CONTROLLER Work Phone: [facility] 08-08-2022 09:11-0500 Respiratory rate 16 /min Amber Rodriguez S3B MULTI SENSOR OPERATOR.SOUND CONTROLLER Work Phone: [facility] 08-08-2022 09:11-0500 SaO2% (BldA) [Mass fraction] 98 % Amber Rodriguez S3B MULTI SENSOR OPERATOR.SOUND CONTROLLER Work Phone: [facility] 08-08-2022 09:11-0500 Systolic blood pressure 156 mm[Hg] Amber Rodriguez S3B MULTI SENSOR OPERATOR.SOUND CONTROLLER Work Phone: [facility] 08-07-2022 11:34-0500 Body weight 73.12 kg TYLER Saunders MD Work Phone: [facility] 08-01-2022 09:17-0500 Body height 172.4 cm Ja Becker MD Work Phone: [facility] 08-01-2022 09:17-0500 Body temperature 97.2 [degF] Ja Becker MD Work Phone: [facility] 08-01-2022 09:17-0500 Body weight 74.48 kg Ja Becker MD Work Phone: [facility] 08-01-2022 09:17-0500 Diastolic blood pressure 69 mm[Hg] Ja Becker MD Work Phone: [facility] 08-01-2022 09:17-0500 Heart rate 53 /min Ja Becker MD Work Phone: [facility] 08-01-2022 09:17-0500 Respiratory rate 16 /min Ja Becker MD Work Phone: [facility] 08-01-2022 09:17-0500 SaO2% (BldA) [Mass fraction] 98 % Ja Becker MD Work Phone: [facility] 08-01-2022 09:17-0500 Systolic blood pressure 150 mm[Hg] Ja Becker MD Work Phone: [facility] 07-25-2022 09:04-0500 Body height 172.4 cm Glenys Kitty PA-C Work Phone: [facility] 07-25-2022 09:04-0500 Body temperature 97.5 [degF] Glenys Kitty PA-C Work Phone: [facility] 07-25-2022 09:04-0500 Body weight 74.84 kg Glenys Kitty PA-C Work Phone: [facility] 07-25-2022 09:04-0500 Diastolic blood pressure 54 mm[Hg] Glenys Kitty PA-C Work Phone: [facility] 07-25-2022 09:04-0500 Heart rate 51 /min Glenys Kitty PA-C Work Phone: [facility] 07-25-2022 09:04-0500 Respiratory rate 16 /min Glenys Kitty PA-C Work Phone: [facility] 07-25-2022 09:04-0500 SaO2% (BldA) [Mass fraction] 97 % Glenys Kitty PA-C Work Phone: [facility] 07-25-2022 09:04-0500 Systolic blood pressure 105 mm[Hg] Glenys Kitty PA-C Work Phone: [facility] 07-18-2022 09:17-0500 Body height 172.4 cm Ja Becker MD Work Phone: [facility] 07-18-2022 09:17-0500 Body temperature 97.11 [degF] Ja Becker MD Work Phone: [facility] 07-18-2022 09:17-0500 Body weight 73.39 kg Ja Becker MD Work Phone: [facility] 07-18-2022 09:17-0500 Diastolic blood pressure 66 mm[Hg] Ja Becker MD Work Phone: [facility] 07-18-2022 09:17-0500 Heart rate 57 /min Ja Becker MD Work Phone: [facility] 07-18-2022 09:17-0500 Respiratory rate 16 /min Ja Becker MD Work Phone: [facility] 07-18-2022 09:17-0500 SaO2% (BldA) [Mass fraction] 96 % Ja Becker MD Work Phone: [facility] 07-18-2022 09:17-0500 Systolic blood pressure 124 mm[Hg] Ja Becker MD Work Phone: [facility] 07-17-2022 11:41-0500 Body temperature 96.69 [degF] TYLER Saunders MD Work Phone: [facility] 07-17-2022 11:41-0500 Body weight 72.12 kg TYLER Saunders MD Work Phone: [facility] 07-17-2022 11:41-0500 Diastolic blood pressure 79 mm[Hg] TYLER Saunders MD Work Phone: [facility] 07-17-2022 11:41-0500 Heart rate 57 /min TYLER Saunders MD Work Phone: [facility] 07-17-2022 11:41-0500 Respiratory rate 18 /min TYLER Saunders MD Work Phone: [facility] 07-17-2022 11:41-0500 SaO2% (BldA) [Mass fraction] 98 % TYLER Saunders MD Work Phone: [facility] 07-17-2022 11:41-0500 Systolic blood pressure 168 mm[Hg] TYLER Saunders MD Work Phone: [facility] 07-11-2022 11:51-0500 Body height 172.4 cm Amber Rodriguez S3B MULTI SENSOR OPERATOR.SOUND CONTROLLER Work Phone: [facility] 07-11-2022 11:51-0500 Body temperature 97.81 [degF] Amber Rodriguez S3B MULTI SENSOR OPERATOR.SOUND CONTROLLER Work Phone: [facility] 07-11-2022 11:51-0500 Body weight 73.21 kg Amber Rodriguez S3B MULTI SENSOR OPERATOR.SOUND CONTROLLER Work Phone: [facility] 07-11-2022 11:51-0500 Diastolic blood pressure 71 mm[Hg] Amber Rodriguez S3B MULTI SENSOR OPERATOR.SOUND CONTROLLER Work Phone: [facility] 07-11-2022 11:51-0500 Heart rate 55 /min Amber Rodriguez S3B MULTI SENSOR OPERATOR.SOUND CONTROLLER Work Phone: [facility] 07-11-2022 11:51-0500 Respiratory rate 16 /min Amber Rodriguez S3B MULTI SENSOR OPERATOR.SOUND CONTROLLER Work Phone: [facility] 07-11-2022 11:51-0500 SaO2% (BldA) [Mass fraction] 97 % Amber Rodriguez S3B MULTI SENSOR OPERATOR.SOUND CONTROLLER Work Phone: [facility] 07-11-2022 11:51-0500 Systolic blood pressure 168 mm[Hg] Amber Rodriguez S3B MULTI SENSOR OPERATOR.SOUND CONTROLLER Work Phone: [facility] 05-30-2022 10:32-0500 Body height 172.7 cm Ja Becker MD Work Phone: [facility] 05-30-2022 10:32-0500 Body temperature 97.11 [degF] Ja Becker MD Work Phone: [facility] 05-30-2022 10:32-0500 Body weight 73.12 kg Ja Becker MD Work Phone: [facility] 05-30-2022 10:32-0500 Diastolic blood pressure 68 mm[Hg] Ja Becker MD Work Phone: [facility] 05-30-2022 10:32-0500 Heart rate 50 /min Ja Becker MD Work Phone: [facility] 05-30-2022 10:32-0500 Respiratory rate 18 /min Ja Becker MD Work Phone: [facility] 05-30-2022 10:32-0500 SaO2% (BldA) [Mass fraction] 97 % Ja Becker MD Work Phone: [facility] 05-30-2022 10:32-0500 Systolic blood pressure 150 mm[Hg] Ja Becker MD Work Phone: [facility] 05-09-2022 09:12-0500 Body temperature 96.91 [degF] TYLER Saunders MD Work Phone: [facility] 05-09-2022 09:12-0500 Body weight 73.03 kg TYLER Saunders MD Work Phone: [facility] 05-09-2022 09:12-0500 Diastolic blood pressure 77 mm[Hg] TYLER Saunders MD Work Phone: [facility] 05-09-2022 09:12-0500 Heart rate 53 /min TYLER Saunders MD Work Phone: [facility] 05-09-2022 09:12-0500 Respiratory rate 16 /min TYLER Saunders MD Work Phone: [facility] 05-09-2022 09:12-0500 SaO2% (BldA) [Mass fraction] 98 % TYLER Saunders MD Work Phone: [facility] 05-09-2022 09:12-0500 Systolic blood pressure 149 mm[Hg] TYLER Saunders MD Work Phone: [facility] 05-02-2022 09:43-0400 Body height 172.7 cm Ja Becker MD Work Phone: [facility] 05-02-2022 09:43-0400 Body temperature 97.59 [degF] Ja Becker MD Work Phone: [facility] 05-02-2022 09:43-0400 Body weight 74.3 kg Ja Becker MD Work Phone: [facility] 05-02-2022 09:43-0400 Diastolic blood pressure 61 mm[Hg] Ja Becker MD Work Phone: [facility] 05-02-2022 09:43-0400 Heart rate 53 /min Ja Becker MD Work Phone: [facility] 05-02-2022 09:43-0400 Respiratory rate 16 /min Ja Becker MD Work Phone: [facility] 05-02-2022 09:43-0400 SaO2% (BldA) [Mass fraction] 97 % Ja Becker MD Work Phone: [facility] 05-02-2022 09:43-0400 Systolic blood pressure 135 mm[Hg] Ja Becker MD Work Phone: [facility] 04-24-2022 14:26-0400 Body height 172.7 cm Lexus Lexus DO Work Phone: [facility] 04-24-2022 14:26-0400 Heart rate 60 /min Lexus Lexus DO Work Phone: [facility] 04-24-2022 14:26-0400 SaO2% (BldA) [Mass fraction] 98 % Lexus Lexus DO Work Phone: [facility] 01-12-2022 09:45-0400 Diastolic blood pressure 61 mm[Hg] Ja Becker MD Work Phone: [facility] 01-12-2022 09:45-0400 Systolic blood pressure 183 mm[Hg] Ja Becker MD Work Phone: [facility] 01-12-2022 09:43-0400 Body height 172.7 cm Ja Becker MD Work Phone: [facility] 01-12-2022 09:43-0400 Body temperature 97.39 [degF] Ja Becker MD Work Phone: [facility] 01-12-2022 09:43-0400 Body weight 76.2 kg Ja Becker MD Work Phone: [facility] 01-12-2022 09:43-0400 Heart rate 70 /min Ja Becker MD Work Phone: [facility] 01-12-2022 09:43-0400 Respiratory rate 18 /min Ja Becker MD Work Phone: [facility] 01-12-2022 09:43-0400 SaO2% (BldA) [Mass fraction] 97 % Ja Becker MD Work Phone: [facility] 10-06-2021 09:26-0400 Body height 172.7 cm Ja Becker MD Work Phone: [facility] 10-06-2021 09:26-0400 Body temperature 97.81 [degF] Ja Becker MD Work Phone: [facility] 10-06-2021 09:26-0400 Body weight 76.48 kg Ja Becker MD Work Phone: [facility] 10-06-2021 09:26-0400 Diastolic blood pressure 60 mm[Hg] Ja Becker MD Work Phone: [facility] 10-06-2021 09:26-0400 Heart rate 51 /min Ja Becker MD Work Phone: [facility] 10-06-2021 09:26-0400 Respiratory rate 16 /min Ja Becker MD Work Phone: [facility] 10-06-2021 09:26-0400 SaO2% (BldA) [Mass fraction] 97 % Ja Becker MD Work Phone: [facility] 10-06-2021 09:26-0400 Systolic blood pressure 133 mm[Hg] Ja Becker MD Work Phone: [facility] Encounters Encounter Date Encounter Type Care Provider Facility Start: 04-26-2024 End: 04-26-2024 Doroteo Grissom MD Work Phone: [facility] Comment on above: 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) Start: 04-24-2024 End: 04-24-2024 Bamboo flowsheet Ember [facility] PA Work Phone: [facility] Start: 04-24-2024 End: 04-24-2024 [facility] Work Phone: [facility] Start: 04-24-2024 End: 04-24-2024 Office outpatient new 30 minutes [facility] PA Work Phone: [facility] Comment on above: Melanocytic nevus of trunk (Primary Dx); Seborrheic keratosis; Lentigines; Capillary angioma; Seborrheic keratosis, inflamed; Actinic keratosis Start: 04-24-2024 End: 04-24-2024 ambulatory [facility] Not Available Start: 04-18-2024 End: 04-18-2024 Telephone [...] Start: 04-17-2024 End: 04-17-2024 ambulatory Lab/Port Renardliss[facility] Mreino Work Phone: Hematology/Oncology Comment on above: Multiple [...] 15 minutes Stuart Wright MD Work Phone: [facility] Genito-Urinary Surgeons Comment on above: Elevated PSA (Primar y Dx); Benign prostatic hyperplasia with urinary frequency Start: 04-16-2024 End: 04-16-2024 ambulatory STUART WRIGHT [facility] Start: 04-15-2024 End: 04-15-2024 Telephone encounter Rhona Ruiz RN Work Phone: Hematology/Oncology Comment on above: Care Coordination (C T Results) Start: 04-14-2024 End: 04-14-2024 Refill Glenys Kurtz PA-C Work Phone: Hematology/Oncology Comment on above: Refill Request Start: 04-10-2024 End: 04-10-2024 ambulatory GLENYS KURTZ Facility:[facility] Start: 04-10-2024 End: 04-10-2024 Subsequent hospital [...] 03-24-2024 End: 03-24-2024 ambulatory PRERNA GRISSOM II Facility:[facility] Start: 03-24-2024 End: 03-24-2024 Office outpatient visit 25 minutes Flynn Hopkins PA-C Work Phone: Pain Management Comment on above: Chest wall pain (Maricel regina Dx); Intercostal neuralgia; History of lung cancer Start: 03-20-2024 End: 03-20-2024 ambulatory [facility] Start: 03-17-2024 End: 03-17-2024 Refill Ja Becker MD Work Phone: Hematology/Oncology Comment on above: Refill Request Start: 03-14-2024 End: 03-14-2024 Telephone encounter Yanira Plasencia [facility] Hematology/Oncology Start: 02-29-2024 End: 03-06-2024 Refill Iza Jha RN Work Phone: Hematology/Oncology Comment on above: Refill Request Start: 02-20-2024 End: 02-20-2024 ambulatory [facility] Start: 02-19-2024 End: 02-19-2024 Refill Ja Becker MD Work Phone: [facility] Comment on above: Refill Request Start: [...] Refill Request Start: 01-30-2024 End: 01-30-2024 ambulatory [facility] Start: 01-18-2024 Refill Rhona santos RN Work Phone: Hematology/Oncology Comment on above: Refill Request (Norc o) Start: 2024 End: [address] [facility] Start: 2024 End: 2024 Office outpatient visit 25 minutes Glenys Kurtz PA-C Work Phone: Hematology/Oncology Comment on above: Multiple myeloma not having achieved remission (HCC) (Primary Dx); 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); Anemia, unspecified type; Malignant neoplasm of unspecified part of unspecified bronchus or lung (HCC) Start: 2024 End: 2024 ambulatory Lab/Port Renard [place] Work Phone: Hematology/Oncology Comment on above: Multiple myeloma not having achieved remission (HCC) Multiple myeloma, re mission status unspecified (HCC) (Primary Dx) Start: 01-16-2024 Telephone encounter Glenys long PA-C Work Phone: Hematology/Oncology Comment on above: Results Start: 01-09-2024 End: 01-09-2024 ambulatory [facility] Start: 01-07-2024 End: 01-07-2024 ambulatory [facility] Ambulatory [facility] Start: 01-02-2024 End: 01-02-2024 ambulatory [facility] Start: 12-27-2023 End: 12-27-2023 Refill Rhona Ruiz [...] 10-22-2023 End: 10-22-2023 ambulatory PRERNA GRISSOM II Facility:[facility] Start: 10-22-2023 End: 10-22-2023 Subsequent hospital visit by physician Arrival Time Radiology Work Phone: Radiology Pet [facility] Start: 10-15-2023 Refill Rhona santos RN Work Phone: Hematology/Oncology Comment on above: Refill Request (Norc o & Klonopin) Start: 09-20-2023 End: 09-20-2023 ambulatory LEXUS Goyo KIMS Facility:[facility] Start: 09-20-2023 End: 09-20-2023 Patient encounter [...] on above: Refill Request Start: 08-22-2023 Refill hRona santos RN Work Phone: Hematology/Oncology Comment on above: Refill Request (Norc o) Start: 08-13-2023 Refill Lexus E Girgi s DO Work Phone: Pain Management Comment on above: Refill Request Start: 08-06-2023 End: 08-07-2023 ambulatory Lab/Port Renard Aria Work Phone: [facility] Comment on above: Multiple myeloma, re mission status unspecified (HCC) (Primary Dx) Start: 08-06-2023 End: 08-06-2023 Nutrition therapy Lab/Port [place] Work Phone: Hematology/Oncology Comment on above: Malnutrition of mild degree (HCC); Moderate major depression, single episode (HCC); Multiple myeloma, remission status unspecified (HCC); 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) Start: 08-03-2023 Refill Ja Becker MD Work Phone: Hematology/Oncology Comment on above: Refill Request Start: 08-03-2023 End: 08-03-2023 ambulatory GLENYS KURTZ Facility:[facility] Start: 08-03-2023 End: 08-03-2023 Subsequent hospital visit by physician Arrival Time Radiology Work Phone: Radiology Pet CT Comment on above: Malignant neoplasm o f unspecified part of unspecified bronchus or lung (HCC) [C34.90] Start: 07-09-2023 End: 07-09-2023 ambulatory GLENYS Sebastien KITTY Facility:[facility] Start: 05-21-2023 End: 05-21-2023 ambulatory KYLEE [...] Start: 05-07-2023 End: 05-07-2023 ambulatory AMBER MICHAEL Facility:[facility] Start: 05-07-2023 End: 05-07-2023 Subsequent hospital visit by physician Arrival Time Radiology Work Phone: Radiology [facility] Comment on above: Malignant neoplasm o f unspecified part of unspecified bronchus or lung (HCC) [C34.90] Start: 05-04-2023 Telephone encounter Rhona hand RN Work Phone: Hematology/Oncology Comment on above: Care Coordination (M edication Question) Start: 05-04-2023 End: 05-04-2023 ambulatory [facility] Start: 05-03-2023 End: 05-03-2023 ambulatory LEXUS E LEXUS Facility:[facility] Start: 04-02-2023 End: 04-02-2023 ambulatory Chair 21 Aria Work Phone: Hematology/Oncology Comment on above: Multiple myeloma, re mission status unspecified (HCC) (Primary Dx) Start: 04-02-2023 End: 04-02-2023 Nutrition therapy Amber Rodriguez APRN.SOUND CONTROLLER Work Phone: Hematology/Oncology Comment on above: Malignant [...] End: 04-02-2023 Patient encounter procedure Amber Rodriguez APRN.SOUND CONTROLLER Work Phone: [facility] Start: 03-12-2023 Refill Lexus E Girgi s DO Work Phone: Pain Management Comment on above: Refill Request Start: 03-08-2023 Refill Ja Becker MD Work Phone: Hematology/Oncology Comment on above: Refill Request Start: 02-21-2023 End: 02-21-2023 ambulatory Ja Becker Facility:[facility] Start: 02-20-2023 Telephone encounter Heidi Heck [...] Start: 12-16-2022 End: 12-16-2022 ambulatory Prerna Grissom Facility:[facility] Start: 12-16-2022 End: 12-16-2022 ambulatory NON STAFF [facility] Work Phone: Start: 12-16-2022 End: 12-16-2022 Patient encounter procedure [facility] [place] Work Phone: Start: 12-08-2022 Refill Rhona santos RN Work Phone: Hematology/Oncology Comment on above: Refill Request (Klon opin) Start: 12-04-2022 End: 12-04-2022 Nutrition therapy Amber Rodriguez APRN.SOUND CONTROLLER Work Phone: Hematology/Oncology Comment on above: Malignant neoplasm o f hilus of right lung (HCC) (Primary Dx); Multiple myeloma, remission status unspecified (HCC); Neoplasm related pain (acute) (chronic); Moderate major depression, single episode (HCC); Malnutrition of mild degree (HCC) Start: 12-04-2022 End: 12-04-2022 Patient encounter procedure Amber Rodriguez APRN.CNP Work Phone: [facility] Start: 12-04-2022 End: 12-04-2022 ambulatory Lab/Port Renard [place] Work Phone: Hematology/Oncology Comment on above: Malignant [...] 10-02-2022 Emergency department patient visit Alberto Chappell Facility:[facility] Start: 10-02-2022 End: 10-02-2022 Emergency department patient visit [facility] Work Phone: Start: 10-02-2022 End: 10-02-2022 ambulatory Chair Alejandro Merino Work Phone: Hematology/Oncology Comment on above: Malignant neoplasm o f upper lobe of right lung (HCC) (Primary Dx) Start: 09-27-2022 Refill Rhona santos RN Work Phone: Hematology/Oncology [...] Start: 09-05-2022 Patient encounter procedure [facility] Provider [facility] Department Start: 08-22-2022 Refill Rhona santos RN [...] Start: 08-08-2022 End: 08-08-2022 ambulatory Amber Rodriguez APRN.SOUND CONTROLLER Work Phone: Hematology/Oncology Comment on above: Malignant neoplasm o f upper lobe of right lung (HCC) (Primary Dx); Multiple myeloma not having achieved remission (HCC); Anxiety; Neuropathic pain; Neoplasm related pain (acute) (chronic) Start: 08-08-2022 End: 08-08-2022 Patient encounter procedure Amber Rodriguez APRN.SOUND CONTROLLER Work Phone: [facility] Start: 08-07-2022 End: 08-07-2022 [...] Start: 07-25-2022 End: 07-25-2022 ambulatory Lab/Port Renard Mahnomen Work Phone: Hematology/Oncology Comment on above: Malignant [...] encounter procedure Ja Becker MD Work Phone: [facility] Start: 07-17-2022 End: 07-17-2022 Patient encounter procedure Marisabel Saunders MD Work Phone: Radiation Oncology Comment on above: Malignant neoplasm o f upper lobe of right lung (HCC) (Primary Dx) Start: 07-11-2022 Telephone encounter Ja serrano MD Work Phone: Cancer [facility] Comment on above: Future Appointment Start: 07-11-2022 End: 07-11-2022 ambulatory Lab/Port Renard [place] Work Phone: Hematology/Oncology Comment on above: Malignant [...] End: 07-11-2022 Patient encounter procedure Amber Rodriguez APRN.SOUND CONTROLLER Work Phone: [facility] Start: 07-07-2022 Telephone encounter [...] End: 06-22-2022 Patient encounter procedure Ccf Provider [facility] Comment on above: Malignant neoplasm o f [...] Start: 06-14-2022 End: 06-14-2022 ambulatory HENRI ANDERSON Facility:[facility] Start: 06-13-2022 Telephone encounter Henri barahona MD Work Phone: [facility] Endoscopy - ENDO Comment on above: Appointment Start: 06-12-2022 End: 06-12-2022 Nursing evaluation of patient and report Ma Nurse Renard Oshea Work Phone: Hematology/Oncology Comment on above: Adenopathy (Primary Dx) Start: 06-05-2022 End: 06-05-2022 ambulatory HENRI ANDERSON Facility:[facility] Start: 06-05-2022 End: 06-05-2022 ambulatory Henri Anderson MD Work Phone: Pulmonology Comment on above: Adenopathy (Primary Dx); Abnormal PET of right lung; History of lung cancer; Multiple myeloma, remission status unspecified (HCC) Start: 06-05-2022 End: 06-05-2022 Telemedicine consultation with patient Henri Anderson MD Work Phone: [facility] Start: 06-02-[address] [facility] Provider Pre Anesthesia Comment on above: Pre-Op instructions for your upcoming surgery with Dr. Henri Anderson on 06/14/2022 Start: 06-02-2022 E-mail encounter fro m caregiver [facility]cf Provider [facility] Start: 05-30-2022 Telephone encounter Ja serrano MD Work Phone: Cancer [facility] Comment on above: Future Appointment Start: 05-30-2022 [...] Start: 05-23-2022 End: 05-23-2022 ambulatory UNKNOWN PROVIDER Facility:[facility] Start: 05-22-2022 Telephone encounter Ja serrano MD Work Phone: Hematology/Oncology Comment on above: Lab Orders Start: 05-17-2022 Orders Only Sridevi Nye RN [facility] ospital Radiology Procedure Comment on above: [...] (Hydr ocodone) Start: 03-03-2022 Refill Amber Rodriguez S3B MULTI SENSOR OPERATOR.SOUND CONTROLLER Work Phone: Hematology/Oncology Comment on above: Refill Request Start: 02-23-2022 Social Work Yanira Plasencia TILTING SAW OPERATOR Hematolo gy/Oncology Start: 02-07-2022 Refill Lexus E Girgi s DO Work Phone: Pain Management Comment on above: Refill Request Start: 01-31-2022 Refill Amber Rodriguez S3B MULTI SENSOR OPERATOR.SOUND CONTROLLER Work Phone: Hematology/Oncology Comment on above: Refill [...] Phone: [facility] Start: 12-20-2021 Refill Amber Rodriguez S3B MULTI SENSOR OPERATOR.SOUND CONTROLLER Work Phone: Hematology/Oncology Comment on above: Refill [...] Ct thorax w/o contra st material Glenys uKrtz PA-C Work Phone: Start: 2024 Basic metabolic [...] count complete auto&auto difrntl wbc Amber Rodriguez S3B MULTI SENSOR OPERATOR.SOUND CONTROLLER Work Phone: Start: 05-07-2023 Ct thorax w/o contra st material Amber Rodriguez S3B MULTI SENSOR OPERATOR.SOUND CONTROLLER Work Phone: Start: 02-20-2023 Antibody screen Alberto Chappell Comment on above: Order Comment: Trans fuse now? N Result Comment: PERF ORMED BY: [facility] [address] [place] [address] PATHOLOGIST [employer] INVESTIGATOR PREET MUNOZ M.D. Start: 02-19-2023 Basic metabolic pane l calcium total Ja Becker MD Work Phone: Start: 02-14-2023 Ct thorax w/o contra st material Ja Becker MD Work Phone: Start: 01-01-2023 Blood count complete auto&auto difrntl wbc Amber Rodriguez S3B MULTI SENSOR OPERATOR.SOUND CONTROLLER Work Phone: Start: 12-16-2022 MRI of head Start: 12-04-2022 Blood count complete auto&auto difrntl wbc Amber Rodriguez S3B MULTI SENSOR OPERATOR.SOUND CONTROLLER Work Phone: Start: 11-15-2022 Radiologic exam ches t 2 views Amber Rodriguez S3B MULTI SENSOR OPERATOR.SOUND CONTROLLER Work Phone: Start: 10-02-2022 CT of head [...] count complete auto&auto difrntl wbc Amber Rodriguez S3B MULTI SENSOR OPERATOR.SOUND CONTROLLER Work Phone: Start: 07-04-2022 Blood count complete [...] 03-30-2022 Ct thorax w/o contra st material aJ Becker MD Work Phone: Start: 09-29-2021 Ct [...] Td Vaccines (5 - Td or Tdap) [facility] Start: 05-21-2033 Urine microalbumin profile DTaP,Tdap,Td Vaccine (5 - Td or Tdap) [facility] Start: 02-02-2031 Urine microalbumin profile [facility] Start: 04-17-2027 Diabetes Screening Diabetes Screenin [facility] Start: 01-16-2027 Diabetes Screening Diabetes Screenin [facility] Start: 10-28-2026 Diabetes Screening Diabetes Screenin [facility] Start: 08-06-2026 Diabetes Screening Diabetes Screenin [facility] Start: 07-09-2026 Diabetes Screening Diabetes Screenin g [facility] Start: 05-14-2026 Diabetes Screening Diabetes Screenin g [facility] Start: 04-02-2026 Diabetes Screening Diabetes Screenin g [facility] Start: 02-19-2026 DIABETES SCREEN DIABETES SCREEN [facility] Start: 02-19-2026 Diabetes Screening Diabetes Screenin g [facility] Start: 01-01-2026 DIABETES SCREEN DIABETES SCREEN [facility] Start: 12-04-2025 DIABETES SCREEN DIABETES SCREEN [facility] Start: 10-31-2025 DIABETES SCREEN DIABETES SCREEN [facility] Start: 10-17-2025 DIABETES SCREEN DIABETES SCREEN [facility] Start: 10-02-2025 DIABETES SCREEN DIABETES SCREEN [facility] Start: 09-11-2025 DIABETES SCREEN DIABETES SCREEN [facility] Start: 08-08-2025 [facility] Start: 08-01-2025 DIABETES [facility]CRE[facility] Start: 07-25-2025 DIABETES SCREEN [facility] Start: 07-18-2025 DIABETES SCREEN [facility] Start: 07-11-2025 DIABETES SCREEN [facility] Start: 07-04-2025 DIABETES SCREEN [facility] Start: 05-30-2025 DIABETES SCREEN [facility] Start: 04-16-2025 Tobacco Screening Tobacco Screening [facility] Start: 04-06-2025 DIABETES SCREEN [facility] Start: 03-20-2025 Adult BMI Screening Adult BMI Screen ing [facility] Start: 01-14-2025 End: 01-14-2025 Patient encounter procedure 01/14/2025 1:45 PM EDT Office Visit [facility] [facility] [address] [place] [address] [place] [address] Stuart Wright MD [address] [place] [id number] [facility] Start: 01-12-2025 DIABETES SCREEN DIABETES SCREEN [facility] Start: 01-11-2025 End: 11-03-2025 Prostatic specific antigen, diagnostic Prostatic specific antigen, diagnostic Lab Routine Elevated PSA Expected: 01/11/2025, Expires: 11/03/2025 [facility] Work Phone: Comment on above: Expected: 01/11/2025 , Expires: 11/03/2025 Start: 09-29-2024 DIABETES SCREEN DIABETES SCREEN [facility] Start: 07-17-2024 End: 07-17-2024 Follow-up encounter Hematology/Oncology Comment on above: [address] [facility] lab port chemotx aredia Start: 05-27-2024 End: 05-27-2024 Patient encounter procedure 05/27/2024 1:20 PM EST Office Visit [facility] [address] [place] [phone] Ember Dalton PA [address] [place] [phone] [facility] Start: 04-24-2024 End: 04-24-2024 Patient encounter procedure 04/24/2024 1:10 PM EDT Office Visit [facility] [address] [place] [phone] Ember Dalton, PA [address] [place] [address] Arrived [facility] Comment on above: Arrived Start: 04-18-2024 End: 07-18-2024 CBC W Auto Differential panel - Blood COMPLETE BLOOD COUNT AND DIFFERENTIAL Lab Routine Multiple myeloma not having achieved remission (HCC) 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) Anemia, unspecified type Expected: 04/18/2024 (Approximate), Expires: 07/18/2024 [facility] Comment on above: Expected: 04/18/2024 (Approximate), Expires: 07/18/2024 Start: 04-18-2024 End: 07-18-2024 Comprehensive metabolic 2000 panel - Serum or Plasma COMPREHENSIVE METABOLIC PANEL Lab Routine Multiple myeloma not having achieved remission (HCC) 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) Anemia, unspecified type Expected: 04/18/2024 (Approximate), Expires: 07/18/2024 [facility] Work Phone: Comment on above: Expected: 04/18/2024 (Approximate), Expires: 07/18/2024 Start: 04-18-2024 End: 02-15-2025 CT Chest WO contrast CT CHEST WO IVCON Radiology Routine Malignant neoplasm of unspecified part of unspecified bronchus or lung (HCC) Expected: 04/18/2024, Expires: 02/15/2025 [facility] Comment on above: Expected: 04/18/2024 , Expires: 02/15/2025 Start: 04-18-2024 End: 07-18-2024 Ferritin [Mass/volume] in Serum or Plasma FERRITIN Lab Routine Multiple myeloma not having achieved remission (HCC) 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) Anemia, unspecified type Expected: 04/18/2024 (Approximate), Expires: 07/18/2024 [facility] Comment on above: Expected: 04/18/2024 (Approximate), Expires: 07/18/2024 Start: 04-18-2024 End: 07-18-2024 Iron and Iron binding capacity panel - Serum or Plasma IRON AND TIBC Lab Routine Multiple myeloma not having achieved remission (HCC) 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) Anemia, unspecified type Expected: 04/18/2024 (Approximate), Expires: 07/18/2024 [facility] Comment on above: Expected: 04/18/2024 (Approximate), Expires: 07/18/2024 Start: 04-18-2024 End: 07-18-2024 MONOCLONAL PROTEIN, SERUM (BLOOD) MONOCLONAL PROTEIN, SERUM (BLOOD) Lab Routine Multiple myeloma not having achieved remission (HCC) 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) Anemia, unspecified type Expected: 04/18/2024 (Approximate), Expires: 07/18/2024 [facility] Comment on above: Expected: 04/18/2024 (Approximate), Expires: 07/18/2024 Start: 04-18-2024 End: 07-18-2024 PROTEIN ELECTROPHORESIS SERUM W/INTERP PROTEIN ELECTROPHORESIS SERUM W/INTERP Lab Routine Multiple myeloma not having achieved remission (HCC) 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) Anemia, unspecified type Expected: 04/18/2024 (Approximate), Expires: 07/18/2024 [facility] Comment on above: Expected: 04/18/2024 (Approximate), Expires: 07/18/2024 Start: 04-17-2024 End: 04-17-2024 Follow-up encounter Hematology/Oncology Comment on above: 3 month follow up wi lab port chemotx aredia, ct chest 1 week prior Start: 04-17-2024 End: 04-17-2024 ambulatory 04/17/2024 9:15 AM EDT [facility] Hematology/Oncology [address] [place] [address] [place] [address] Lab Hematology/Oncology Comment on above: Lab Start: 04-10-2024 End: 04-10-2024 Patient encounter procedure Radiology Pet CT Comment on above: ct chest wo AND LABS ct chest wo Start: 04-09-2024 End: 04-09-2024 Patient encounter procedure 04/09/2024 3:00 PM EDT Office Visit [facility] [address] [facility] [address] [place] [phone] Kylee Andrade PA [address] [facility] [address] [place] [address] Arrived [facility] Comment on above: Arrived Start: 03-24-2024 End: 03-24-2024 Patient encounter procedure 03/24/2024 1:00 PM EDT Office Visit [facility] [address] [place] [address] Flynn Hopkins [place]-C [address] [place] [address] 6 month follow up Pain Management Comment on above: 6 month follow up Start: 03-02-2024 Covid-19 Vaccine () Covid-19 Vaccine () [facility] Start: 03-02-2024 Covid-19 Vaccine (4 - 2024-25 season) Covid-19 Vaccine ( season) [facility] Start: 03-02-2024 Influenza vaccination [facility] Start: 01-21-2024 End: 01-21-2024 Follow-up encounter Hematology/Oncology [...] achieved remission (HCC) Expected: 01/16/2024, Expires: 04/16/2024 [facility] Comment on above: Expected: 01/16/2024 , Expires: 04/16/2024 Start: 01-16-2024 End: 04-16-2024 Comprehensive metabolic 2000 panel - Serum or Plasma COMPREHENSIVE METABOLIC PANEL Lab Routine Multiple myeloma not having achieved remission (HCC) Expected: 01/16/2024, Expires: 04/16/2024 [facility] Work Phone: Comment on above: Expected: 01/16/2024 , Expires: 04/16/2024 Start: 01-16-2024 End: 04-16-2024 MONOCLONAL PROTEIN, SERUM (BLOOD) MONOCLONAL PROTEIN, SERUM (BLOOD) Lab Routine Multiple myeloma not having achieved remission (HCC) Expected: 01/16/2024, Expires: 04/16/2024 [facility] Comment on above: Expected: 01/16/2024 , Expires: 04/16/2024 Start: 01-16-2024 End: 04-16-2024 PROTEIN ELECTROPHORESIS SERUM W/INTERP PROTEIN ELECTROPHORESIS SERUM W/INTERP Lab Routine Multiple myeloma not having achieved remission (HCC) Expected: 01/16/2024, Expires: 04/16/2024 [facility] Comment on above: Expected: 01/16/2024 , Expires: 04/16/2024 Start: 07-02-2023 Advance Directive Discussion Advance Directive Discussion [facility] Start: 05-15-2023 End: 07-15-2023 CBC W Auto Differential panel - Blood CBC + DIFF Lab Routine 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) Multiple myeloma, remission status unspecified (HCC) Anemia, unspecified type Neuropathic pain Anxiety Neoplasm related pain (acute) (chronic) Multiple myeloma not having achieved remission (HCC) Malignant neoplasm of unspecified part of unspecified bronchus or lung (HCC) Expected: 05/15/2023, Expires: 07/15/2023 [facility] Work Phone: Comment on above: Expected: 05/15/2023 [...] or lung (HCC) Expected: 05/15/2023, Expires: 07/15/2023 [facility] Work Phone: Comment on above: Expected: 05/15/2023 [...] or lung (HCC) Expected: 05/14/2023, Expires: 07/14/2023 [facility] Work Phone: Comment on above: Expected: 05/14/2023 [...] or lung (HCC) Expected: 05/14/2023, Expires: 07/14/2023 [facility] Work Phone: Comment on above: Expected: 05/14/2023 , Expires: 07/14/2023 Start: 05-14-2023 End: 07-14-2023 MONOCLONAL PROTEIN, SERUM (BLOOD) [facility] Work Phone: Comment on above: Expected: 05/14/2023 , Expires: 07/14/2023 Start: 05-14-2023 End: 07-14-2023 PROT ELECT SERUM WITH KAYLA AND INTERP [facility] Work Phone: Comment on above: Expected: 05/14/2023 , Expires: 07/14/2023 Start: 03-02-2023 Covid-19 Vaccine () Covid-19 Vaccine () [facility] Start: 03-02-2023 Influenza vaccination C [facility] Start: 01-03-2023 End: 03-05-2023 CBC W Auto Differential panel - Blood CBC + DIFF Lab Routine 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) Multiple myeloma, remission status unspecified (HCC) Neoplasm related pain (acute) (chronic) Expected: 01/03/2023, Expires: 03/05/2023 [facility] Work Phone: Comment on above: Expected: 01/03/2023 , Expires: 03/05/2023 Start: 01-03-2023 End: 03-05-2023 Comprehensive metabolic 2000 panel - Serum or Plasma COMP METABOLIC PANEL Lab Routine 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) Multiple myeloma, remission status unspecified (HCC) Neoplasm related pain (acute) (chronic) Expected: 01/03/2023, Expires: 03/05/2023 [facility] Work Phone: Comment on above: Expected: 01/03/2023 , Expires: 03/05/2023 Start: 01-01-2023 End: 03-03-2023 MONOCLONAL PROTEIN, SERUM (BLOOD) [facility] Work Phone: Comment on above: Expected: 01/01/2023 , Expires: 03/03/2023 Start: 01-01-2023 End: 03-03-2023 PROT ELECT SERUM WITH KAYLA AND INTERP [facility] Work Phone: Comment on above: Expected: 01/01/2023 , Expires: 03/03/2023 Start: 11-14-2022 End: 01-14-2023 CBC W Auto Differential panel - Blood CBC + DIFF Lab Routine Malignant neoplasm of upper lobe of right lung (HCC) Multiple myeloma not having achieved remission (HCC) Neoplasm related pain (acute) (chronic) Lesion of skin of right ear Expected: 11/14/2022, Expires: 01/14/2023 [facility] Work Phone: Comment on above: Expected: 11/14/2022 , Expires: 01/14/2023 Start: 11-14-2022 End: 01-14-2023 Comprehensive metabolic 2000 panel - Serum or Plasma COMP METABOLIC PANEL Lab Routine Malignant neoplasm of upper lobe of right lung (HCC) Multiple myeloma not having achieved remission (HCC) Neoplasm related pain (acute) (chronic) Lesion of skin of right ear Expected: 11/14/2022, Expires: 01/14/2023 [facility] Work Phone: Comment on above: Expected: 11/14/2022 , Expires: 01/14/2023 Start: 09-11-2022 End: 11-11-2022 MONOCLONAL PROTEIN, SERUM (BLOOD) [facility] Work Phone: Comment on above: Expected: 09/11/2022 , Expires: 11/11/2022 Start: 09-11-2022 End: 11-11-2022 PROT ELECT SERUM WITH KAYLA AND INTERP [facility] Work Phone: Comment on above: Expected: 09/11/2022 , Expires: 11/11/2022 Start: 08-08-2022 End: 10-08-2022 Basic metabolic 2000 panel - Serum or Plasma [facility] Work Phone: Comment on above: Expected: 08/08/2022 , Expires: 10/08/2022 Start: 08-08-2022 End: 10-08-2022 CBC W Auto Differential panel - Blood [facility] Work Phone: Comment on above: Expected: 08/08/2022 , Expires: 10/08/2022 Start: 07-25-2022 End: 09-24-2022 CBC W Auto Differential panel - Blood [facility] Work Phone: Comment on above: Expected: 07/25/2022 , Expires: 09/24/2022 Start: 07-25-2022 End: 09-24-2022 Comprehensive metabolic 2000 panel - Serum or Plasma COMP METABOLIC PANEL Lab Routine Malignant neoplasm of upper lobe of right lung (HCC) Expected: 07/25/2022, Expires: 09/24/2022 [facility] Work Phone: Comment on above: Expected: 07/25/2022 , Expires: 09/24/2022 Start: 07-18-2022 End: 09-17-2022 CBC W Auto Differential panel - Blood CBC + DIFF Lab Routine Malignant neoplasm of upper lobe of right lung (HCC) Multiple myeloma, remission status unspecified (HCC) Anxiety Neoplasm related pain (acute) (chronic) Lesion of skin of right ear Expected: 07/18/2022, Expires: 09/17/2022 [facility] Work Phone: Comment on above: Expected: 07/18/2022 , Expires: 09/17/2022 Start: 07-18-2022 End: 09-17-2022 Comprehensive metabolic 2000 panel - Serum or Plasma COMP METABOLIC PANEL Lab Routine Malignant neoplasm of upper lobe of right lung (HCC) Multiple myeloma, remission status unspecified (HCC) Anxiety Neoplasm related pain (acute) (chronic) Lesion of skin of right ear Expected: 07/18/2022, Expires: 09/17/2022 [facility] Work Phone: Comment on above: Expected: 07/18/2022 , Expires: 09/17/2022 Start: 07-02-2022 ADVANCE DIRECTIVE DISCUSSION ADVANCE DIRECTIVE DISCUSSION [facility] Start: 07-02-2022 DEPRESSION ASSESSMENT DEPRESSION ASS ESSMENT [facility] Start: 05-30-2022 End: 07-30-2022 CBC W Auto Differential panel - Blood CBC + DIFF Lab Routine Malignant neoplasm of upper lobe of right lung (HCC) Expected: 05/30/2022, Expires: 07/30/2022 [facility] Work Phone: Comment on above: Expected: 05/30/2022 , Expires: 07/30/2022 Start: 05-30-2022 End: 07-30-2022 Comprehensive metabolic 2000 panel - Serum or Plasma COMP METABOLIC PANEL Lab Routine Malignant neoplasm of upper lobe of right lung (HCC) Expected: 05/30/2022, Expires: 07/30/2022 [facility] Work Phone: Comment on above: Expected: 05/30/2022 , Expires: 07/30/2022 Start: 05-17-2022 End: 07-17-2022 CBC panel - Blood by Automated count CBC Lab Routine Surgical procedure, elective Expected: 05/17/2022, Expires: 07/17/2022 [facility] Work Phone: Comment on above: Expected: 05/17/2022 , Expires: 07/17/2022 Start: 05-17-2022 End: 07-17-2022 PT panel - Platelet poor plasma by Coagulation assay PROTHROMBIN TIME/PT Lab Routine Surgical procedure, elective Expected: 05/17/2022, Expires: 07/17/2022 [facility] Work Phone: Comment on above: Expected: 05/17/2022 , Expires: 07/17/2022 Start: 03-30-2022 End: 05-30-2022 CBC W Auto Differential panel - Blood CBC + DIFF Lab Routine Multiple myeloma not having achieved remission (HCC) Malignant neoplasm of upper lobe of right lung (HCC) Expected: 03/30/2022 (Approximate), Expires: 05/30/2022 [facility] Work Phone: Comment on above: Expected: 03/30/2022 (Approximate), Expires: 05/30/2022 Start: 03-30-2022 End: 05-30-2022 Comprehensive metabolic 2000 panel - Serum or Plasma COMP METABOLIC PANEL Lab Routine Multiple myeloma not having achieved remission (HCC) Malignant neoplasm of upper lobe of right lung (HCC) Expected: 03/30/2022 (Approximate), Expires: 05/30/2022 [facility] Work Phone: Comment on above: Expected: 03/30/2022 (Approximate), Expires: 05/30/2022 Start: 03-30-2022 End: 02-11-2023 Ct thorax w/o contrast material CT CHEST WO IVCON Radiology Routine Expected: 03/30/2022 (Approximate), Expires: 02/11/2023 [facility] Work Phone: Comment on above: Expected: 03/30/2022 (Approximate), Expires: 02/11/2023 Start: 03-30-2022 End: 05-30-2022 MONOCLONAL PROTEIN, SERUM (BLOOD) MONOCLONAL PROTEIN, SERUM (BLOOD) Lab Routine Multiple myeloma not having achieved remission (HCC) Malignant neoplasm of upper lobe of right lung (HCC) Expected: 03/30/2022 (Approximate), Expires: 05/30/2022 [facility] Work Phone: Comment on above: Expected: 03/30/2022 (Approximate), Expires: 05/30/2022 Start: 03-30-2022 End: 05-30-2022 PROT ELECT SERUM WITH KAYLA AND INTERP PROT ELECT SERUM WITH KAYLA AND INTERP Lab Routine Multiple myeloma not having achieved remission (HCC) Malignant neoplasm of upper lobe of right lung (HCC) Expected: 03/30/2022 (Approximate), Expires: 05/30/2022 [facility] Work Phone: Comment on above: Expected: 03/30/2022 (Approximate), Expires: 05/30/2022 Start: 03-02-2022 Influenza vaccination INFLUENZA (#1) [facility] Start: 2022 RSV Vaccine (1 - 1-d ose 75+ series) RSV Vaccine (1 - 1-dose 75+ series) [facility] Start: 01-05-2022 End: 03-07-2022 CBC W Auto Differential panel - Blood CBC + DIFF Lab Routine Multiple myeloma not having achieved remission (HCC) Expected: 01/05/2022, Expires: 03/07/2022 [facility] Work Phone: Comment on above: Expected: 01/05/2022 , Expires: 03/07/2022 Start: 01-05-2022 End: 03-07-2022 Comprehensive metabolic 2000 panel - Serum or Plasma COMP METABOLIC PANEL Lab Routine Multiple myeloma not having achieved remission (HCC) Expected: 01/05/2022, Expires: 03/07/2022 [facility] Work Phone: Comment on above: Expected: 01/05/2022 , Expires: 03/07/2022 Start: 01-05-2022 End: 03-07-2022 MONOCLONAL PROTEIN, SERUM (BLOOD) MONOCLONAL PROTEIN, SERUM (BLOOD) Lab Routine Multiple myeloma not having achieved remission (HCC) Expected: 01/05/2022, Expires: 03/07/2022 [facility] Work Phone: Comment on above: Expected: 01/05/2022 , Expires: 03/07/2022 Start: 01-05-2022 End: 03-07-2022 PROT ELECT SERUM WITH KAYLA AND INTERP PROT ELECT SERUM WITH KAYLA AND INTERP Lab Routine Multiple myeloma not having achieved remission (HCC) Expected: 01/05/2022, Expires: 03/07/2022 [facility] Work Phone: Comment on above: Expected: 01/05/2022 , Expires: 03/07/2022 Start: 12-21-2021 Adult depression screening assessment DEPRESSION SCREENING [facility] Start: 08-27-2021 COVID-19 VACCINE (4 - Booster for Pfizer series) COVID-19 VACCINE (4 - Booster for Pfizer series) [facility] Start: 08-19-2021 COVID-19 VACCINE (4 - Booster for Pfizer series) COVID-19 VACCINE (4 - Booster for Pfizer series) [facility] Start: 07-22-2021 COVID-19 VACCINE (4 - Booster for Pfizer series) COVID-19 VACCINE (4 - Booster for Pfizer series) [facility] Start: 07-22-2021 COVID-19 VACCINE (4 - Pfizer risk series) COVID-19 VACCINE (4 - Pfizer risk series) [facility] Start: 07-02-2021 ADVANCE DIRECTIVE DISCUSSION ADVANCE DIRECTIVE DISCUSSION [facility] Start: 07-02-2021 DEPRESSION ASSESSMENT DEPRESSION ASS ESSMENT [facility] Start: 01-18-2012 Fall Risk Screening Fall Risk Screen ing [facility] Start: 2007 RSV Vaccine (1 - 1-d ose 60+ series) RSV Vaccine (1 - 1-dose 60+ series) [facility] Start: 1997 Administration of varicella zoster vaccine Zoster (Shingles) Vaccine (1 of 2) [facility] Start: 1997 SHINGRIX VACCINE (1 of 2) MYERS GRIX VACCINE (1 of 2) [facility] Start: 01-18-1992 COLOGUARD (FIT-DNA) COLOGUARD (FIT-D NA) [facility] Start: 01-18-1992 Colonoscopy COLONOSCOPY [facility] Start: 01-18-1992 COLORECTAL CANCER SCREENING COLORECTAL CANCER SCREENING [facility] Start: 01-18-[address] COLONOGRAPHY [facility] Start: 01-18-1992 FECAL OCCULT BLOOD FECAL OCCULT BLOO D [facility] Start: 01-18-1992 SIGMOIDOSCOPY SIGMOIDOSCOPY [facility] Start: 1982 LIPID SCREEN LIPID SCREEN [facility] Start: 1966 SHINGRIX VACCINE (1 of 2) MYERS GRIX VACCINE (1 of 2) [facility] Start: 1965 ANNUAL PCP TEAM MERCHANDISE SUPPORT ASSOCIATE SYLVESTER DISEASE VISIT ANNUAL PCP TEAM CHRONIC DISEASE VISIT [facility] Start: 1965 Anxiety Screening Anxiety Screening [facility] Start: 1965 Hepatitis B surface antibody level LDL CHOLESTEROL [facility] Start: 1965 HEPATITIS C SCREENING HEPATITIS C [facility] Start: 1965 Hepatitis C screening Hepatitis C [facility] Start: 1959 Depression Screening Depression Scre ening [facility] Start: 1947 ABDOMINAL AORTIC ANE URYSM SCREENING ABDOMINAL AORTIC ANEURYSM SCREENING [facility] Start: 1947 Medicare Annual Well ness Visit Medicare Annual Wellness Visit [facility] CT SIM PLANNING RADI ATION ONCOLOGY CT SIM PLANNING RADIATION ONCOLOGY Radiology Routine Malignant neoplasm of upper lobe of right lung (HCC) Ordered: 06/29/2022 [facility] Work Phone: Comment on above: Ordered: 06/29/2022 End: 10-11-2023 Ct thorax w/o contrast material CT CHEST WO IVCON Radiology Routine 1 Occurrences starting 09/11/2022 until 10/11/2023 [facility] Work Phone: Comment on above: 1 Occurrences starti ng 09/11/2022 until 10/11/2023 End: 01-31-2024 Ct thorax w/o contrast material CT CHEST WO IVCON Radiology Routine 1 Occurrences starting 01/01/2023 until 01/31/2024 [facility] Work Phone: Comment on above: 1 Occurrences starti ng 01/01/2023 until 01/31/2024 End: 05-01-2024 Ct thorax w/o contrast material CT CHEST WO IVCON Radiology Routine Malignant neoplasm of unspecified part of unspecified bronchus or lung (HCC) 1 Occurrences starting 04/02/2023 until 05/01/2024 [facility] Work Phone: Comment on above: 1 Occurrences starti ng 04/02/2023 until 05/01/2024 Ferritin [Mass/volum e] in Serum or Plasma FERRITIN Lab Routine Multiple myeloma not having achieved remission (HCC) 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) Anemia, unspecified type 04/17/2024 10:00 AM [facility] IMMUNOFIXATION SCREE N, SERUM IMMUNOFIXATION SCREEN, SERUM Lab Routine Malignant neoplasm of upper lobe of right lung (HCC) Multiple myeloma not having achieved remission (HCC) 09/11/2022 9:43 AM [facility] Work Phone: IMMUNOFIXATION SCREE N, SERUM IMMUNOFIXATION SCREEN, SERUM Lab Routine 01/01/2023 10:04 AM [facility] Work Phone: IMMUNOFIXATION SCREE N, SERUM IMMUNOFIXATION SCREEN, SERUM Lab Routine 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) Multiple myeloma not having achieved remission (HCC) 02/19/2023 9:40 AM [facility] Work Phone: IMMUNOFIXATION SCREE N, SERUM IMMUNOFIXATION SCREEN, SERUM Lab Routine 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) Multiple myeloma, remission status unspecified (HCC) Anemia, unspecified type Neuropathic pain Anxiety Neoplasm related pain (acute) (chronic) Multiple myeloma not having achieved remission (HCC) Malignant neoplasm of unspecified part of unspecified bronchus or lung (HCC) 05/14/2023 9:42 AM [facility] Work Phone: IMMUNOFIXATION SCREE N, SERUM IMMUNOFIXATION SCREEN, SERUM Lab Routine Malnutrition of mild degree (HCC) Moderate major depression, single episode (HCC) Multiple myeloma, remission status unspecified (HCC) 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) 08/06/2023 9:58 AM [facility] Work Phone: IMMUNOFIXATION SCREE N, SERUM IMMUNOFIXATION SCREEN, SERUM Lab Routine 10/29/2023 10:18 AM [facility] IMMUNOFIXATION SCREE N, SERUM IMMUNOFIXATION SCREEN, SERUM Lab Routine Multiple myeloma not having achieved remission (HCC) 2024 9:36 AM [facility] IMMUNOFIXATION SCREE N, SERUM IMMUNOFIXATION SCREEN, SERUM Lab Routine Multiple myeloma not having achieved remission (HCC) 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) Anemia, unspecified type 04/17/2024 10:00 AM [facility] IMMUNOGLOBULINS JONH IMMUNOGLOBUL INS JONH Lab Routine 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) Multiple myeloma not having achieved remission (HCC) 02/19/2023 9:40 AM [facility] Work Phone: IMMUNOGLOBULINS JONH IMMUNOGLOBUL INS JONH Lab Routine 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) Multiple myeloma, remission status unspecified (HCC) Anemia, unspecified type Neuropathic pain Anxiety Neoplasm related pain (acute) (chronic) Multiple myeloma not having achieved remission (HCC) Malignant neoplasm of unspecified part of unspecified bronchus or lung (HCC) 05/14/2023 9:42 AM [facility] Work Phone: IMMUNOGLOBULINS JONH IMMUNOGLOBUL INS JONH Lab Routine Malnutrition of mild degree (HCC) Moderate major depression, single episode (HCC) Multiple myeloma, remission status unspecified (HCC) 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) 08/06/2023 9:58 AM [facility] Work Phone: IMMUNOGLOBULINS,IGG, IGA,I GM IMMUNOGLOBULINS,IGG,IGA, IGM Lab Routine Multiple myeloma not having achieved remission (HCC) 2024 9:36 AM [facility] IMMUNOGLOBULINS,IGG, IGA,I GM IMMUNOGLOBULINS,IGG,IGA, IGM Lab Routine Multiple myeloma not having achieved remission (HCC) 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) Anemia, unspecified type 04/17/2024 10:00 AM [facility] Iron and Iron bindin g capacity panel - Serum or Plasma IRON AND TIBC Lab Routine Multiple myeloma not having achieved remission (HCC) 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) Anemia, unspecified type 04/17/2024 10:00 AM [facility] Work Phone: KAPPA/LOMBARDI,FREE,SER KAPPA/LOMBARDI,F REE,SER Lab Routine Malignant neoplasm of upper lobe of right lung (HCC) Multiple myeloma not having achieved remission (HCC) 09/11/2022 9:43 AM [facility] Work Phone: KAPPA/LOMBARDI,FREE,SER KAPPA/LOMBARDI,F REE,SER Lab Routine 01/01/2023 10:04 AM [facility] Work Phone: KAPPA/LOMBARDI,FREE,SER KAPPA/LOMBARDI,F REE,SER Lab Routine 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) Multiple myeloma not having achieved remission (HCC) 02/19/2023 9:40 AM [facility] Work Phone: KAPPA/LOMBARDI,FREE,SER KAPPA/LOMBARDI,F REE,SER Lab Routine 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) Multiple myeloma, remission status unspecified (HCC) Anemia, unspecified type Neuropathic pain Anxiety Neoplasm related pain (acute) (chronic) Multiple myeloma not having achieved remission (HCC) Malignant neoplasm of unspecified part of unspecified bronchus or lung (HCC) 05/14/2023 9:42 AM [facility] Work Phone: KAPPA/LOMBARDI,FREE,SER KAPPA/LOMBARDI,F REE,SER Lab Routine Malnutrition of mild degree (HCC) Moderate major depression, single episode (HCC) Multiple myeloma, remission status unspecified (HCC) 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) 08/06/2023 9:58 AM [facility] Work Phone: KAPPA/LOMBARDI,FREE,SER KAPPA/LOMBARDI,F REE,SER Lab Routine 10/29/2023 10:18 AM [facility] KAPPA/LOMBARDI,FREE,SER KAPPA/LOMBARDI,F REE,SER Lab Routine Multiple myeloma not having achieved remission (HCC) 2024 9:36 AM [facility] KAPPA/LOMBARDI,FREE,SER KAPPA/LOMBARDI,F REE,SER Lab Routine Multiple myeloma not having achieved remission (HCC) 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) Anemia, unspecified type 04/17/2024 10:00 AM [facility] MONOCLONAL PROTEIN, SERUM (BLOOD) MONOCLONAL PROTEIN, SERUM (BLOOD) Lab Routine 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) Multiple myeloma not having achieved remission (HCC) 02/19/2023 9:40 AM [facility] Work Phone: MONOCLONAL PROTEIN, SERUM (BLOOD) MONOCLONAL PROTEIN, SERUM (BLOOD) Lab Routine Malnutrition of mild degree (HCC) Moderate major depression, single episode (HCC) Multiple myeloma, remission status unspecified (HCC) 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) 08/06/2023 9:58 AM [facility] Work Phone: MONOCLONAL PROTEIN, SERUM (BLOOD) MONOCLONAL PROTEIN, SERUM (BLOOD) Lab Routine 10/29/2023 10:18 AM [facility] Work Phone: MONOCLONAL PROTEIN, SERUM (BLOOD) MONOCLONAL PROTEIN, SERUM (BLOOD) Lab Routine Multiple myeloma not having achieved remission (HCC) 2024 9:36 AM [facility] Work Phone: MONOCLONAL PROTEIN, SERUM (BLOOD) MONOCLONAL PROTEIN, SERUM (BLOOD) Lab Routine Multiple myeloma not having achieved remission (HCC) 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) Anemia, unspecified type 04/17/2024 10:00 AM T [facility]: 01-03-2024 Mri brain brain stem w/o w/contrast material MRI BRAIN WO/W IVCON Radiology Routine 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) 1 Occurrences starting 12/04/2022 until 01/03/2024 [facility] Work Phone: Comment on above: 1 Occurrences starti ng 12/04/2022 until 01/03/2024 Patient Education Low Magnesium Level Normocytic Normochromic Anemia Fatigue ED [facility] Work Phone: Patient referral [facility] Work Phone: PROT ELECT SERUM WIT H KAYLA AND INTERP PROT ELECT SERUM WITH KAYLA AND INTERP Lab Routine 10/29/2023 10:18 AM [facility] Protein [Mass/volume ] in Serum or Plasma PROTEIN TOTAL BLD Lab Routine Malignant neoplasm of upper lobe of right lung (HCC) Multiple myeloma not having achieved remission (HCC) 09/11/2022 9:43 AM [facility] Work Phone: Protein [Mass/volume ] in Serum or Plasma PROTEIN TOTAL BLD Lab Routine Malnutrition of mild degree (HCC) Moderate major depression, single episode (HCC) Multiple myeloma, remission status unspecified (HCC) 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) 08/06/2023 9:58 AM [facility] Work Phone: Protein [Mass/volume ] in Serum or Plasma PROTEIN, TOTAL Lab Routine 10/29/2023 10:18 AM T [facility] Protein [Mass/volume ] in Serum or Plasma PROTEIN, TOTAL Lab Routine Multiple myeloma not having achieved remission (HCC) 2024 9:36 AM T [facility] Protein [Mass/volume ] in Serum or Plasma PROTEIN, TOTAL Lab Routine Multiple myeloma not having achieved remission (HCC) 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) Anemia, unspecified type 04/17/2024 10:00 AM T [facility] PROTEIN ELECTROPHORE SIS SERUM (P) PROTEIN ELECTROPHORESIS SERUM (P) Lab Routine Malnutrition of mild degree (HCC) Moderate major depression, single episode (HCC) Multiple myeloma, remission status unspecified (HCC) 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) 08/06/2023 9:58 AM [facility] Work Phone: PROTEIN ELECTROPHORE SIS SERUM (P) PROTEIN ELECTROPHORESIS SERUM (P) Lab Routine Multiple myeloma not having achieved remission (HCC) 2024 9:36 AM [facility] PROTEIN ELECTROPHORE SIS SERUM (P) PROTEIN ELECTROPHORESIS SERUM (P) Lab Routine Multiple myeloma not having achieved remission (HCC) 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) Anemia, unspecified type 04/17/2024 10:00 AM [facility] PROTEIN ELECTROPHORE SIS SERUM W/INTERP PROTEIN ELECTROPHORESIS SERUM W/INTERP Lab Routine Malnutrition of mild degree (HCC) Moderate major depression, single episode (HCC) Multiple myeloma, remission status unspecified (HCC) 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) 08/06/2023 9:58 AM [facility] Work Phone: PROTEIN ELECTROPHORE SIS SERUM W/INTERP PROTEIN ELECTROPHORESIS SERUM W/INTERP Lab Routine Multiple myeloma not having achieved remission (HCC) 2024 9:36 AM [facility] PROTEIN ELECTROPHORE SIS SERUM W/INTERP PROTEIN ELECTROPHORESIS SERUM W/INTERP Lab Routine Multiple myeloma not having achieved remission (HCC) 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) Anemia, unspecified type 04/17/2024 10:00 AM [facility] PROTEIN ELECTROPHORE SIS SERUM WITH KAYLA (P) PROTEIN ELECTROPHORESIS SERUM WITH KAYLA (P) Lab Routine Malignant neoplasm of upper lobe of right lung (HCC) Multiple myeloma not having achieved remission (HCC) 09/11/2022 9:43 AM [facility] Work Phone: PROTEIN ELECTROPHORE SIS SERUM WITH KAYLA (P) PROTEIN ELECTROPHORESIS SERUM WITH KAYLA (P) Lab Routine 01/01/2023 10:04 AM [facility] Work Phone: PROTEIN ELECTROPHORE SIS SERUM WITH [...] or lung (HCC) 05/14/2023 9:42 AM EST [facility] Work Phone: PROTEIN ELECTROPHORE SIS SERUM WITH KAYLA (P) PROTEIN ELECTROPHORESIS SERUM WITH KAYLA (P) Lab Routine 10/29/2023 10:18 AM EDT [facility]: 11-05-2022 Radiologic examination osseous survey compl XR BONE SURVEY ROUTINE Radiology Routine Multiple myeloma not having achieved remission (HCC) 1 Occurrences starting 10/06/2021 until 11/05/2022 [facility] Work Phone: Comment on above: 1 Occurrences starti ng 10/06/2021 until 11/05/2022 REFERRAL FOR ADDITIO NAL BIOMARKER AND MOLECULAR TESTING REFERRAL FOR ADDITIONAL BIOMARKER AND MOLECULAR TESTING Lab Routine Malignant neoplasm of upper lobe of right lung (HCC) 06/16/2022 12:01 PM EST [facility] Work Phone: [facility] Immunizations Immunization Date Immunization Notes Care Provider Walt price 04-08-2024 influenza, high dose seasonal, preservative-free Kylee KING Work Phone: [facility] 05-21-2023 tetanus toxoid, redu zuri diphtheria toxoid, and acellular pertussis vaccine, adsorbed Ja Becker MD Work Phone: [facility] 03-16-2022 influenza, high-dose , quadrivalent vaccine (FLUZONE HIGH DOSE QUADRIVALENT) Ja Becker MD Work Phone: [facility] 03-16-2022 influenza virus vacc ine, unspecified formulation Lexus Alberts DO Work Phone: [facility] 05-27-2021 COVID-19 original vaccine, age 12+ yr, monovalent (PFIZER-BIONTECH - PURPLE TOP) Lab/[facility] Work Phone: [facility] 05-09-2021 influenza, high dose seasonal, preservative-free Ja Becker MD Work Phone: [facility] 02-02-2021 diphtheria, tetanus toxoids and pertussis vaccine Ja Becker MD Work Phone: [facility] 09-21-2020 COVID-19 vaccine, ag e 12+ yr (PFIZER-BIONTECH - PURPLE TOP) Ja Becker MD Work Phone: [facility] 08-31-2020 COVID-19 vaccine, ag e 12+ yr (PFIZER-BIONTECH - PURPLE TOP) Ja Becker MD Work Phone: [facility] 03-19-2020 pneumococcal polysaccharide vaccine, 23 valent Ja Becker MD Work Phone: [facility] 06-05-2019 influenza, high dose seasonal, preservative-free Ja Becker MD Work Phone: [facility] 12-13-2018 pneumococcal conjuga te vaccine, 13 valent Ja Becker MD Work Phone: [facility] 04-24-2018 influenza, high dose [place], preservative-free Ja Becker MD Work Phone: [facility] 05-11-2017 influenza, high dose seasonal, preservative-free Ja Becker MD Work Phone: [facility] 04-14-2016 influenza, high dose seasonal, preservative-free Ja Becker MD Work Phone: [facility] 04-30-2015 influenza, high dose seasonal, preservative-free Ja Becker MD Work Phone: [facility] 05-01-2014 influenza, injectabl e, quadrivalent, preservative free Ja Becker MD Work Phone: [facility] 05-01-2014 influenza, intraderm al, quadrivalent, preservative free, injectable aJ Becker MD Work Phone: [facility] 04-06-2014 influenza, seasonal, injectable Ja Becker MD Work Phone: [facility] 09-01-2013 pneumococcal polysaccharide vaccine, 23 valent Ja Becker MD Work Phone: [facility] 04-05-2013 influenza virus vacc ine, whole virus Ja Becker MD Work Phone: [facility] 04-04-2013 influenza virus vacc ine, unspecified formulation Ja Becker MD Work Phone: [facility] 04-04-2013 influenza, injectabl e, quadrivalent, contains preservative Ja Becker MD Work Phone: [facility] 05-03-2012 influenza virus vacc ine, unspecified formulation Ja Becker MD Work Phone: [facility] 05-03-2012 influenza, high dose seasonal, preservative-free Ja Becker MD Work Phone: [facility] 03-08-2012 pneumococcal conjuga te vaccine, 13 valent Ja Becker MD Work Phone: [facility] 03-08-2012 tetanus toxoid, redu zuri diphtheria toxoid, and acellular pertussis vaccine, adsorbed Ja Becker MD Work Phone: [facility] 02-24-2011 pneumococcal conjuga te vaccine, 13 valernie Becker MD Work Phone: [facility] 02-24-2011 tetanus toxoid, redu zuri diphtheria toxoid, and acellular pertussis vaccine, adsorbed Ja Becker MD Work Phone: [facility] Payers Date Payer Category Payer Self-pay [id number] 2022 Private Health Insurance [employer] [id number] 2019 Unknown MMO MMO MEDICARE SUPPLEMENT [id number] 2019-Present [phone] [address] [place] [address] Indemnity [id number] 2019 Unknown [id number] 2018 Commercial Indemnity [employer] [id number] 2011 Medicare MEDICARE MEDICAR E A AND B [id number] 2011-Present [phone] [address] [address] [place] [address] Medicare [id number] 2011 Medicare [id number] 1959 Medicare [id number] 1959 Medicare [id number] 1947 Unknown [id number]. 593 1947 Unknown [id number]. 593 1947 Unknown [id number]. 1286 1947 Unknown [id number] [id number]. 1286 1947 Unknown [id number] [id number]. 1286 1947 Unknown [id number] [id number]. 1286 1947 Unknown [id number]. 1286 1947 Unknown [id number] [id number]. 1286 1947 Unknown [id number] [id number]. 1259 1947 Unknown [id number] [id number]. 1259 1947 Unknown [id number] [id number]. 1259 Medicare Medicare Outpatient [id number] [id number] Unknown [place]/ [id number] Unknown [id number] 531 Unknown [id number] 531 Unknown [id number] 531 Social History Date Type Detail Facility Start: 03-08-2018 End: 04-09-2024 Tobacco smoking status NHIS Ex-smoker [facility] Start: 07-02-1980 End: 07-02-2018 History of tobacco use Cigarette Smoker [facility] Start: 03-08-2018 End: 04-09-2024 Tobacco use and exposure Smokeless tobacco non-user [facility] Start: 07-07-2021 End: 01-12-2022 Alcohol intake Current drinker of alcohol (finding) [facility] Start: 05-03-2012 History SDOH Alcohol Comment rarely [facility] Start: 10-19-2017 End: 05-02-2022 Tobacco Comment currently taking [facility] Start: 1945 Sex Assigned At Not on file [facility] Start: 09-19-2021 End: 06-02-2022 Exposure to SARS-CoV-2 (event) Not sure [facility] Start: 07-02-1980 End: 07-02-2018 History of tobacco use Current smoker [facility] Start: 02-11-2022 End: 02-21-2022 Exposure to SARS-CoV-2 (event) Unable to assess [facility] Start: 1945 Sex Assigned At Male [facility] History of tobacco use Passive smoker [facility] Start: 05-09-2022 End: 10-04-2023 Cigarettes smoked current (pack per day) - Reported 1 [facility] Start: 05-09-2022 End: 04-17-2024 Alcohol intake Ex-drinker (finding) [facility] Start: 10-02-2022 Tobacco smoking status NHIS Never smoked tobacco (finding) [facility] Start: 01-01-2023 End: 10-04-2023 Tobacco use panel [facility] Adult Depression Screening Assessment 0 [facility] Start: 04-24-2022 Gender identity Identifies as male gender (finding) [facility] Start: 04-24-2022 Sexual orientation Heterosexual (finding) [facility] Start: 11-16-2023 End: 04-24-2024 Alcoholic beverage intake [...] Tobacco Comment Last smoked : 1-5 years [facility] Start: 04-09-2023 Alcohol Comment Caffeine intake : coffee [facility] Start: 02-04-2015 Sex Male (finding) [facility] [employer] [facility] Medical Equipment Procedure Code Equipment Code [...] Notes Atorvastatin sent. documented in this encounter [facility] 04-24-2024 History of Present illness Narrative Skin [...] Neck - Anterior, Right Flank, Right [place], Right Temporal Scalp [place] and brown stuck on verrucous scaly papule [...] limited to risks of scarring, darker or account adjuster pigmentary changes, recurrence, incomplete removal and infection. [...] Neck - Anterior, Right Flank, Right [place], Right Temporal Scalp 6. Actinic keratosis (3) [...] limited to risks of scarring, darker or account adjuster pigmentary changes, recurrence, incomplete removal and infection. [...] Visit: 1 year documented in this encounter [facility] 04-18-2024 Note Addended by: RHONA RUIZ on: 04/18/2024 03:57 PM Modules accepted: Orders [facility] 04-18-2024 Telephone encounter Note Order for derm referral pended. Rhona Ruiz RN [facility] 04-18-2024 Miscellaneous Notes Addended by: RHONA RUIZ on: 04/18/2024 03:57 PM Modules accepted: Orders Order for derm referral pended. Rhona Ruiz RN Raghavendra Ernst Stopped in the office. States he found a bump on his ear and thinks its skin cancer again. He would like a referral to [facility] Dermatology. He states feels just like when he had the skin cancer on his nose. He was hoping he wouldn't need to have an appt here to get the referral. Ludmila Lazaro PSS documented in this encounter [facility] 04-18-2024 Telephone encounter Note Raghavendra Ernst Stopped in the office. States he found a bump on his ear and thinks its skin cancer again. He would like a referral to [facility] Dermatology. He states feels just like when he had the skin cancer on his nose. He was hoping he wouldn't need to have an appt here to get the referral. Ludmila Lazaro PSS [facility] 04-16-2024 Evaluation + Plan note Associated Problem(s): Elevated PSA We discussed then the 90% negative predictive value for MRI. 10% false negative rate. PSA density as well. This point patient is content with observation. He is also 79 years of age. This is reasonable we can certainly get another PSA in about 9 months [facility] 04-16-2024 Miscellaneous Notes Associated Problem(s): Elevated PSA We discussed then the 90% negative predictive value for MRI. 10% false negative rate. PSA density as well. This point patient is content with observation. He is also 79 years of age. This is reasonable we can certainly get another PSA in about 9 months documented in this encounter [facility] 04-16-2024 History of Present illness Narrative Images from the original note were not included. [address] [place] [address] A [facility] [address] Patient: Raghavendra Heard Date of : 1945 [...] loss) Hyperlipidemia Lung abnormality IN (myocardial infarction) ([facility] 2013 Myeloma ([facility]) Shortness of breath Visual impairment Past Surgical History: Procedure Laterality Date ANGIOPLASTY / STENTING FEMORAL APPENDECTOMY CORONARY STENT PLACEMENT CYSTOSCOPY N/A 04/10/2022 Performed by Stuart Wright MD at [facility] CYSTOSCOPY N/A 04/14/2019 Performed by Stuart Wright MD at [facility] EXPLORATORY THORACOTOMY WITH RIGHT UPPER LOBE BIOPSY AND RIGHT UPPER LOBECTOMY, AND MEDIASTINAL LYMPH NODE DISSECTION Right 04/24/2019 Performed by Rob Stinson MD at [facility] FLOW STUDY, BLADDER SCAN PVR N/A 04/09/2019 Performed by Stuart Wright MD at [facility] VASECTOMY Family History Problem Relation Age [...] MOUTH IN THE MORNING 90 tablet 3 [id number] (TRELEGY ELLIPTA) 100-62.5-25 mcg blister with device [...] for your understanding. documented in this encounter [facility] [employer] 04-16-2024 Note HNO ID: [id number] Author: JA BECKER MD Service: ? Author Type: Physician Type: Progress Notes Filed: 04/18/2024 06:13 Note Text: PATIENT NAME: Raghavendra Heard DATE: 04/17/2024 PRIMARY CARE PHYSICIAN: Dr. Prerna Grissom II OTHER PHYSICIANS: Dr. Toledo (Cardiology [facility]), Dr. Zhang, Dr. Hernández ([facility] in [place]), Dr. Stinson (Thoracic Surgery in [place]), Dr. Alberts Portions of this encounter note [...] radiation fibrosis wit (more content not included)... [facility] 04-16-2024 History of Present illness Narrative PATIENT NAME: Raghavendra Heard DATE: 04/17/2024 PRIMARY CARE PHYSICIAN: Dr. Prerna Grissom II OTHER PHYSICIANS: Dr. Toledo (Cardiology [facility]), Dr. Zhang, Dr. Hernández ([facility] in [place]), Dr. Stinson (Thoracic Surgery in [place]), Dr. Alberts Portions of this encounter note [...] Consider continued interval follow-up. 12/16/2022 [place] brain [place] Mild atrophy and chronic microvascular disease. No acute intracranial findings. 11/15/2022 Chest x-ray IMPRESSION: 1. Diffuse interstitial opacities throughout both lungs, suggestive of edema. 2. More patchy regions of airspace opacification within the right mid and lower lung, which could be infectious/inflammatory. If warranted, consider chest CT for further assessment. 3. Small right pleural effusion. 10/02/2022 CT Brain ([facility] Unremarkable exam 09/26/2022 CT chest IMPRESSION: 1. [...] in the right lung. 10/11/2021 Skeletal survey ([facility]) No new lytic changes to suggest progression [...] a bronchoscopy with EBUS (Dr. Balwinder Roberto, [facility] in [place]). Bronchoscopy revealed no endobronchial lesions. Transbronchial biopsy [...] thoracic surgery. The patient was seen by [facility] pain management December 2020, and is much [...] Ja Becker MD documented in this encounter [facility] 04-15-2024 Telephone encounter Note Pt notified and verbalizes understanding. Rhona Ruiz RN [facility] Work Phone: 04-15-2024 Telephone encounter Note ----- Message from Rita Galvez RN sent at 04/15/2024 8:27 AM EDT ----- ----- Message ----- From: Glenys Kurtz PA-C Sent: 04/14/2024 7:58 AM EDT To: [facility] Triage Pool Please call with stable CT chest [facility] 04-15-2024 Miscellaneous Notes Pt notified and verbalizes understanding. Rhona Ruiz RN ----- Message from Rita Galvez RN sent at 04/15/2024 8:27 AM EDT ----- ----- Message ----- From: Glenys Kurtz PA-C Sent: 04/14/2024 7:58 AM EDT To: [facility] Triage Pool Please call with stable CT chest documented in this encounter [facility] 04-10-2024 History of Present illness Narrative Radiology [...] PATIENT PRESENTS WITH AN IMPLANTABLE OR ATTACHED GUIDEMAN: No RADIOLOGY DEPARTMENT: CT; Exam(s) Completed: Chest PERIPHERAL IV DATA: Not applicable SIGNED BY: RT Karla(Tom) April 10, 2024 9:03 AM documented in this encounter [facility] 04-10-2024 Note HNO ID: [id number] Author: RHONA MARTIN RT(Tom) Service: ? Author [...] PATIENT PRESENTS WITH AN IMPLANTABLE OR ATTACHED GUIDEMAN: No RADIOLOGY DEPARTMENT: CT; Exam(s) Completed: Chest PERIPHERAL IV DATA: Not applicable SIGNED BY: RT Karla(R) April 10, 2024 9:03 AM [facility] 04-09-2024 History of Present illness Narrative Images [...] evening and 300 mg before bedtime. HYDROcodone-acetaminophen (Quitaque) 5-325 MG tablet Take 2 tablets by mouth every 6 (six) hours if needed. meloxicam (Mobic) 15 MG tablet Take 15 mg by mouth in the morning. metoprolol succinate XL (Toprol-XL) 25 MG 24 hr tablet Take 25 mg by mouth in the morning. wcgjxkxnkjlo-jsys-begyoens-folic acid (Centrum Silver, geriatric,) tablet Take 1 [...] Medical History: Diagnosis Date Acute myocardial infarction ([facility]/HCC) 01/10/2013 Altered mental status 10/06/2022 Anxiety Arthritis CAD (coronary artery disease) ([facility]/HCC) Cancer, skin, squamous cell Depression ([facility]/HCC) Fever 10/06/2022 FHx: colonic polyps Generalized osteoarthritis History of being hospitalized 11/07/2023 Community Acquired Pneumonia, Respiratory Failure Hypertension ([facility]/HCC) Hypoxia 10/06/2022 Major depressive disorder with single episode ([facility]) Multiple closed fractures of ribs of right side 12/06/2022 Multiple myeloma ([facility]/HCC) Myocardial infarction ([facility]/HCC) 10/2012 Weakness 10/06/2022 Past Surgical History: Procedure [...] all orders for this visit: COPD exacerbation ([facility]) - guaiFENesin-codeine (Robitussin-AC) 100-10 MG/5ML syrup; Take [...] week. Immunodeficiency due to conditions classified elsewhere ([facility]) The patient is seeing a director medical economics for this condition, treatment is deferred to that specialist. Correspondence from that specialist and any available testing were reviewed during today's visit. Multiple myeloma not having achieved remission ([facility]) The patient is seeing a director medical economics for this condition, treatment is deferred to that specialist. Correspondence from that specialist and any available testing were reviewed during today's visit. Mild protein-calorie malnutrition (CMS/HCC) The patient is seeing a director medical economics for this condition, treatment is deferred to that specialist. Correspondence from that specialist and any available testing were reviewed during today's visit. Malignant neoplasm of upper lobe, right bronchus or lung (CMS/HCC) The patient is seeing a director medical economics for this condition, treatment is deferred to that specialist. Correspondence from that specialist and any available testing were reviewed during today's visit. Major depressive disorder, single episode, moderate (HCC) (CMS/HCC) Mood is stable at this time. Will continue to monitor. Other emphysema (CMS/HCC) The patient is seeing a director medical economics for this condition, treatment is deferred to that specialist. Correspondence from that specialist and any available testing were reviewed during today's visit. Malignant neoplasm of unspecified part of left bronchus or lung (CMS/HCC) The patient is seeing a director medical economics for this condition, treatment is deferred to that specialist. Correspondence from that specialist and any available testing were reviewed during today's visit. Follow up in about 6 weeks (around 05/22/2024), or if symptoms worsen or fail to improve, for Medicare Wellness Visit. documented in this encounter [facility] 03-26-2024 Telephone encounter Note Faxed TENS unit order to [facility] [place], [place] [employer] rreceived [facility] 03-26-2024 Miscellaneous Notes Faxed TENS unit order to [facility] [place], [place] [employer] rreceived Prescription printed please fax [...] for TENS unit to be sent to [facility] on file. Patient states discussed at office visit yesterday. The one patient stated he has is from 2008 and does not work. Patient states they have 2 in stock and he would like the one that costs $55. Please advise. Patient has been identified by name and birthdate. Duration of symptoms: N/A Person calling: self Call patient at: on cell [phone] (home) [phone] (cell) Was an appointment scheduled: Cathryn Blount documented in this encounter [facility] 03-25-2024 Telephone encounter Note Prescription printed please fax to [facility] as requested. Flynn Hopkins PA-C March 25, 2024 [facility] 03-25-2024 Telephone encounter Note CHARLES: 03/24/24 PLAN: [...] months or sooner if needed. No appointments [facility] 03-25-2024 Telephone encounter Note Raghavendra is calling Lexus Alberts DO today to request Orders [facility]. Patient states discussed at office visit yesterday. The one patient stated he has is from 2008 and does not work. Patient states they have 2 in stock and he would like the one that costs $55. Please advise. Patient has been identified by name and birthdate. Duration of symptoms: N/A Person calling: self Call patient at: on cell [phone] (home) [phone] (cell) Was an appointment scheduled: Cathryn Blount [facility] 03-25-2024 Telephone encounter Note Pt notified of script. Rhona Ruiz RN [facility] 03-25-2024 Miscellaneous Notes Pt notified of script. [...] Rhona Ruiz RN documented in this encounter [facility] 03-25-2024 Telephone encounter Note The following approved medication requests have been transmitted electronically. Requested Prescriptions Signed Prescriptions Disp Refills HYDROcodone-acetaminophen (NORCO) 5-325 mg per tablet 180 tablet 0 Sig: Take 2 tablets by mouth every 6 hours as needed for up to 30 days. Authorizing Provider: AMBER RODRIGUEZ APRN.CNP [facility] 03-25-2024 Telephone encounter Note Patient phones requesting refills as follows: Last script written on 02/19/24. Requested Prescriptions Pending Prescriptions Disp Refills HYDROcodone-acetaminophen (NORCO) 5-325 mg per tablet 180 tablet 0 Sig: Take 2 tablets by mouth every 6 hours as needed for up to 30 days. Please review and advise. Rhona Ruiz RN [facility] 03-24-2024 Instructions Flynn Hopkins PA-C - 03/24/2024 [...] sooner if needed. documented in this encounter [facility] 03-24-2024 History of Present illness Narrative Pain [...] supervised home exercise program (HEP): No 5. 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 Author Type: Physician Stone Engraver Type: Progress Notes Filed: 03/24/2024 13:54 Note [...] supervised home exercise program (HEP): No 5. 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 [facility] 03-14-2024 Telephone encounter Note SOCIAL WORK FOLLOW UP NOTE: [facility] Date of service:03/14/24 TOPICS ADDRESSED: community resources PLAN: Assist with financial support applications and Continue follow up as needed Assigned SW listed in Care Team tab: Yes Patient has re-applied for the [facility]. Sugar from the [facility] asked this SW to complete the Physician Authorization section of the application and fax it back to her. Form was completed and faxed. ELLIE Squires [facility] 03-14-2024 Miscellaneous Notes SOCIAL WORK FOLLOW UP NOTE: [facility] Date of service:03/14/24 TOPICS ADDRESSED: community resources PLAN: Assist with financial support applications and Continue follow up as needed Assigned SW listed in Care Team tab: Yes Patient has re-applied for the [facility]. Sugar from the [facility] asked this SW to complete the Physician Authorization section of the application and fax it back to her. Form was completed and faxed. ELLIE Squires documented in this encounter [facility] 02-29-2024 Telephone encounter Note Patient phones requesting [...] Please review and advise. Iza Jha RN [facility] 02-29-2024 Miscellaneous Notes Patient phones requesting refills [...] Iza Jha RN documented in this encounter [facility] 02-18-2024 Telephone encounter Note Patient phones requesting refills as follows: Last script written on 01/21/24. Requested Prescriptions Pending Prescriptions Disp Refills HYDROcodone-acetaminophen (NORCO) 5-325 mg per tablet 180 tablet 0 Sig: Take 2 tablets by mouth every 6 hours as needed for up to 30 days. Please review and advise. Rhona Ruiz RN [facility] 02-18-2024 Miscellaneous Notes Patient phones requesting refills as follows: Last script written on 01/21/24. Requested Prescriptions Pending Prescriptions Disp Refills HYDROcodone-acetaminophen (NORCO) 5-325 mg per tablet 180 tablet 0 Sig: Take 2 tablets by mouth every 6 hours as needed for up to 30 days. Please review and advise. Rhona Ruiz RN documented in this encounter [facility] 02-15-2024 Telephone encounter Note Pt called requesting refills of his Valium and Quitaque. Confirmed w/ [facility] that the pt's current Valium script has refills remaining. Pt notified. Also notified pt that his request for Quitaque is too soon. Last RX was written on 01/21/24 for a 30 day supply. Pt verbalizes understanding and will call back next week. Rhona Ruiz RN [facility] Work Phone: 02-15-2024 Miscellaneous Notes Pt called requesting refills of his Valium and Quitaque. Confirmed w/ [facility] that the pt's current Valium script has refills remaining. Pt notified. Also notified pt that his request for Quitaque is too soon. Last RX was written on 01/21/24 for a 30 day supply. Pt verbalizes understanding and will call back next week. Rhona Ruiz RN documented in this encounter [facility] 02-01-[address] Becker Patient [facility] 02-01-[address] Becker Patient documented in this encounter [facility] 01-30-[address] Cardiology - [facility] Subjective Raghavendra Heard is a 79 y.o. [...] dermatitis of both legs Anemia Fatigue Hypomagnesemia [place]-neck deformity of finger of right hand Pulmonary [...] October 2023 he was admitted to the [facility] with COPD exacerbation and community-acquired pneumonia. His [...] decreased breath soun (more content not included)... [facility] 01-21-2024 Telephone encounter Note Attempted to notify pt of signed script. No answer. Voicemail is full and not accepting messages. Rhona Ruiz RN [facility] 01-21-2024 Miscellaneous Notes Attempted to notify pt [...] Rhona Ruiz RN documented in this encounter [facility] 01-18-2024 Telephone encounter Note Patient phones requesting refills as follows: Last script written 12/23/23. Requested Prescriptions Pending Prescriptions Disp Refills HYDROcodone-acetaminophen (NORCO) 5-325 mg per tablet 180 tablet 0 Sig: Take 2 tablets by mouth every 6 hours as needed for up to 30 days. Please review and advise. Rhona Ruiz RN [facility] 2024 History of Present illness Narrative PATIENT NAME: Raghavendra Heard DATE: 2024 PRIMARY CARE PHYSICIAN: Dr. Prerna Grissom II OTHER PHYSICIANS: Dr. Toledo (Cardiology [facility]), Dr. Zhang, Dr. Hernández (Housekeeping [facility]er in [place]), Dr. Stinson (Thoracic Surgery in [place]), Dr. Alberts (Elements copied from Dr. Becker's [...] hospitalized for 5 days, November 06-2023 at [place]. Then he got a URI and saw [...] Consider continued interval follow-up. 12/16/2022 MRI brain [place] Mild atrophy and chronic microvascular disease. No acute intracranial findings. 11/15/2022 Chest x-ray IMPRESSION: 1. Diffuse interstitial opacities throughout both lungs, suggestive of edema. 2. More patchy regions of airspace opacification within the right mid and lower lung, which could be infectious/inflammatory. If warranted, consider chest CT for further assessment. 3. Small right pleural effusion. 10/02/2022 CT Brain ([facility] Unremarkable exam 09/26/2022 CT chest IMPRESSION: 1. [...] in the right lung. 10/11/2021 Skeletal survey ([facility]) No new lytic changes to suggest progression [...] a bronchoscopy with EBUS (Dr. Balwinder Roberto, [facility] in [place]). Bronchoscopy revealed no endobronchial lesions. Transbronchial biopsy [...] thoracic surgery. The patient was seen by [facility] pain management December 2020, and is much [...] which included preparing to see the patient, [id number] patient care, completing clinical documentation, performing a medically appropriate examination, counseling and educating the patient/family/caregiver, ordering medications, tests, or procedures, independently interpreting results (not separately reported), communicating results to the patient/family/caregiver, and care coordination (not separately reported). documented in this encounter [facility] 2024 Note HNO ID: [id number] Author: GLENYS KURTZ PA-C Service: ? Author Type: Physician Stone Engraver Type: Progress Notes Filed: 2024 10:54 Note Text: PATIENT NAME: Raghavendra Heard DATE: 2024 PRIMARY CARE PHYSICIAN: Dr. Prerna Grissom II OTHER PHYSICIANS: Dr. Toledo (Cardiology [facility]), Dr. Zhang, Dr. Hernández (Housekeeping Cleaner in [place]), Dr. Stinson (Thoracic Surgery in [place]), Dr. Alberts (Elements copied from Dr. Becker's [...] hospitalized for 5 days, November 06-2023 at [place]. Then he got a URI and saw [...] Nearly resolved multif (more content not included)... [facility] 01-16-2024 Telephone encounter Note Patient has an appt on 01/16. Would you like labs? [facility] 01-16-2024 Miscellaneous Notes Patient has an appt on 01/16. Would you like labs? documented in this encounter [facility] 01-09-2024 Note Patient: Raghavendra landeros Procedure Information Date/Time: 01/09/24 1030 Procedure: Right heart cath; PC Approved Location: [facility] / [facility] (Cath) Providers: Leo Toledo [...] Plan discussed with attending. Additional Equipment Requests [facility] 12-27-2023 Telephone encounter Note Patient phones requesting [...] Please review and advise. Rhona Ruiz RN [facility] 12-27-2023 Miscellaneous Notes Patient phones requesting refills [...] Rhona Ruiz RN documented in this encounter [facility] 12-27-[address] Cardiology - [facility] Subjective Raghavendra Heard is a 78 y.o. year old male patient being seen for 6 mo follow up CAD, hypertension, and hyperlipidemia. He was started on amlodipine at last apt in May 2023. He was admitted to [facility] last month for pneumonia. 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 His [...] Skin is warm (more content not included)... [facility] 12-24-2023 Telephone encounter Note Pt notified of scripts and verbalizes understanding. Rhona Ruiz RN [facility] Work Phone: 12-24-2023 Miscellaneous Notes Pt notified of scripts and verbalizes understanding. Rhona Ruiz RN Voicemail message received from pt requesting his Quitaque script be sent to [facility] pharmacy in [place]. States he phoned in a request on Sunday. Pt's record shows scripts for Valium and Quitaque were sent on 12/23/23. Call placed to pt. No answer. Voicemail is full. Unable to leave a message. Rhona Ruiz RN documented in this encounter [facility] 12-24-2023 Telephone encounter Note Voicemail message received from pt requesting his Quitaque script be sent to [facility] pharmacy in [place]. States he phoned in a request on Sunday. Pt's record shows scripts for Valium and Quitaque were sent on 12/23/23. Call placed to pt. No answer. Voicemail is full. Unable to leave a message. Rhona Ruiz RN [facility] 11-16-2023 Telephone encounter Note Patient is requesting refill of his hydrocodone be sent to [facility]. Jordana Drummond MA [facility] 11-16-2023 Miscellaneous Notes Patient is requesting refill of his hydrocodone be sent to [facility]. Jordana Drummond MA documented in this encounter [facility] 10-28-2023 Note HNO ID: [id number] Author: JA BECKER MD Service: ? Author Type: Physician Type: Progress Notes Filed: 10/31/2023 06:53 Note Text: PATIENT NAME: Raghaevndra Heard DATE: 10/29/2023 PRIMARY CARE PHYSICIAN: Dr. Prerna Grissom II OTHER PHYSICIANS: Dr. Toledo (Cardiology [facility]), Dr. Zhang, Dr. Hernández (Housekeeping Cleaner in [place]), Dr. Stinson (Thoracic Surgery in [place]), Dr. Alberts Portions of this encounter note [...] some have decreas (more content not included)... [facility] 10-28-2023 History of Present illness Narrative PATIENT NAME: Raghavendra Heard DATE: 10/29/2023 PRIMARY CARE PHYSICIAN: Dr. Prerna Grissom II OTHER PHYSICIANS: Dr. Toledo (Cardiology [facility]), Dr. Zhang, Dr. Hernández (Housekeeping [facility]er in [place]), Dr. Stinson (Thoracic Surgery in [place]), Dr. Alberts Portions of this encounter note [...] Consider continued interval follow-up. 12/16/2022 MRI brain [place] Mild atrophy and chronic microvascular disease. No acute intracranial findings. 11/15/2022 Chest x-ray IMPRESSION: 1. Diffuse interstitial opacities throughout both lungs, suggestive of edema. 2. More patchy regions of airspace opacification within the right mid and lower lung, which could be infectious/inflammatory. If warranted, consider chest CT for further assessment. 3. Small right pleural effusion. 10/02/2022 CT Brain ([facility] Unremarkable exam 09/26/2022 CT chest IMPRESSION: 1. [...] in the right lung. 10/11/2021 Skeletal survey ([facility]) No new lytic changes to suggest progression [...] a bronchoscopy with EBUS (Dr. Balwinder Roberto, [facility] in [place]). Bronchoscopy revealed no endobronchial lesions. Transbronchial biopsy [...] thoracic surgery. The patient was seen by [facility] pain management December 2020, and is much [...] Ja Becker MD documented in this encounter [facility] 10-22-2023 History of Present illness Narrative Radiology [...] PATIENT PRESENTS WITH AN IMPLANTABLE OR ATTACHED GUIDEMAN: No RADIOLOGY DEPARTMENT: CT; Exam(s) Completed: Chest PERIPHERAL IV DATA: Not applicable SIGNED BY: RT Karla(Tom) October 22, 2023 1:22 PM documented in this encounter [facility] 10-22-2023 Note HNO ID: [id number] Author: RHONA MARTIN RT(R) Service: ? Author [...] PATIENT PRESENTS WITH AN IMPLANTABLE OR ATTACHED GUIDEMAN: No RADIOLOGY DEPARTMENT: CT; Exam(s) Completed: Chest PERIPHERAL IV DATA: Not applicable SIGNED BY: RT Karla(R) October 22, 2023 1:22 PM [facility] 10-16-2023 Miscellaneous Notes Call placed to pt. No answer. Message left on pt's personalized voicemail informing him of scripts. Rhoan Ruiz RN Patient phones requesting refills as follows: Pt requesting refills for Quitaque and Klonopin. Last norco script written on [...] Rhona Ruiz RN documented in this encounter [facility] 09-20-2023 Instructions Anupam Haji MD - 09/20/2023 1:23 PM EDT Hi Raghavendra Heard, You were at the [facility] today for an appointment. The following describes your care plan and instructions: Stop Lyrica, restart Gabapentin 600mg TID Continue Duloxetine 60mg BID Defer hydrocodone to prescribing physician Return to clinic in 3 months Please call the clinic with any questions or issues. Thank you for allowing us to participate in your care. [facility] Pain Management Department September 20, 2023 documented in this encounter [facility] 09-20-2023 History of Present illness Narrative [facility] Medication Refill Raghavendra Heard September 20, 2023 Medication Refill Appointment Raghavendra Heard is a 78 year old male who presents to [facility], accompanied by spouse, [...] which included preparing to see the patient, [id number] patient care, completing clinical documentation, performing a medically appropriate examination, counseling and educating the patient/family/caregiver, ordering medications, tests, or procedures, and communicating with other HCPs (not separately reported). Lexus Alberts DO September 20, 2023 documented in this encounter [facility] 09-20-2023 Note HNO ID: [id number] Author: LEXUS ALBERTS DO Service: ? Author Type: Physician Type: Progress Notes Filed: 09/20/2023 13:47 Note Text: [facility] Medication Refill Raghavendra Heard September 20, 2023 Medication Refill Appointment Raghavendra Heard is a 78 year old male who presents to [facility], accompanied by spouse, [...] 129/66 Pulse 56 (more content not included)... [facility] 09-19-2023 Miscellaneous Notes Pt notified of script. Rhona Ruiz RN Patient phones requesting refills as follows: Last RX written on 08/23/23. Requested Prescriptions Pending Prescriptions Disp Refills HYDROcodone-acetaminophen (NORCO) 5-325 mg per tablet 180 tablet 0 Sig: Take 2 tablets by mouth every 6 hours as needed for up to 30 days. Please review and advise. Rhona Ruiz RN documented in this encounter [facility] 09-11-2023 Miscellaneous Notes Called and left voicemail [...] refill. Please advise documented in this encounter [facility] 08-23-2023 Miscellaneous Notes Pt notified and verbalizes [...] Rhona Ruiz RN documented in this encounter [facility] 08-15-2023 Miscellaneous Notes Call placed to patient, [...] patient. Zahra Bartholomew documented in this encounter [facility] 08-06-2023 Note HNO ID: [id number] Author: JA BECKER MD Service: ? Author Type: Physician Type: Progress Notes Filed: 08/06/2023 19:53 Note Text: PATIENT NAME: Raghavendra Heard DATE: 08/06/2023 PRIMARY CARE PHYSICIAN: Dr. Prerna Grissom II OTHER PHYSICIANS: Dr. Toledo (Cardiology [facility]), Dr. Zhang, Dr. Hernández (Housekeeping Cleaner in [place]), Dr. Stinson (Thoracic Surgery in [place]), Dr. Alberts Portions of this encounter note [...] change, other infectious/in (more content not included)... [facility] 08-03-2023 Miscellaneous Notes Patient phones requesting refills [...] Rhona Ruiz RN documented in this encounter [facility] 08-03-2023 History of Present illness Narrative Radiology [...] PATIENT PRESENTS WITH AN IMPLANTABLE OR ATTACHED GUIDEMAN: No RADIOLOGY DEPARTMENT: CT; Exam(s) Completed: Chest PERIPHERAL IV DATA: Not applicable SIGNED BY: RT Ramos(Tom) August 03, 2023 9:50 AM documented in this encounter [facility] 08-03-2023 Note HNO ID: [id number] Author: RUPINDER ELIAS RT(R) Service: ? Author [...] PATIENT PRESENTS WITH AN IMPLANTABLE OR ATTACHED GUIDEMAN: No RADIOLOGY DEPARTMENT: CT; Exam(s) Completed: Chest PERIPHERAL IV DATA: Not applicable SIGNED BY: Rupinder Elias, RT(R) August 03, 2023 9:50 AM [facility] 07-09-2023 Note HNO ID: [id number] Author: GLENYS KURTZ PA-C Service: ? Author Type: Physician Stone Engraver Type: Progress Notes Filed: 07/09/2023 11:44 Note Text: PATIENT NAME: Raghavendra Heard DATE: 07/09/2023 PRIMARY CARE PHYSICIAN: Dr. Prerna Grissom II OTHER PHYSICIANS: Dr. Toledo (Cardiology [facility]), Dr. Zhang, Dr. Hernández (Housekeeping Cleaner in [place]), Dr. Stinson (Thoracic Surgery in [place]), Dr. Alberts (Elements copied from Dr. Becker's [...] of postradiation change, (more content not included)... [facility] 05-17-2023 Miscellaneous Notes Pt notified of scripts. Rhona Ruiz RN Patient phones requesting refills as follows: Requested Prescriptions Pending Prescriptions Disp Refills codeine-guaiFENesin (ROBITUSSIN AC) 10-100 mg/5 mL syrup 473 mL 0 Sig: Take 10 mL by mouth every 4 hours as needed for up to 30 days. Please review and advise. Rhona Ruiz RN documented in this encounter [facility] 05-17-2023 Miscellaneous Notes Pt notified of scripts. Rhona Ruiz RN Patient phones requesting refills as follows: Last script filled on 07/06/22 Requested Prescriptions Pending Prescriptions Disp Refills HYDROcodone-acetaminophen (NORCO) 5-325 mg per tablet 180 tablet 0 Sig: Take 2 tablets by mouth every 6 hours as needed. Please review and advise. Rhona Ruiz RN documented in this encounter [facility] 05-14-2023 Note HNO ID: [id number] Author: Ja Becker MD Service: ? Author Type: Physician Type: Progress Notes Filed: 05/14/2023 9:39 PM Note Text: PATIENT NAME: Raghavendra Heard DATE: 05/14/2023 PRIMARY CARE PHYSICIAN: Dr. Prerna Grissom II OTHER PHYSICIANS: Dr. Toledo (Cardiology [facility]), Dr. Zhang, Dr. Hernández (Housekeeping Cleaner in [place]), Dr. Stinson (Thoracic Surgery in [place]), Dr. Alberts Portions of this encounter note [...] prednisone. Subsequently he was seen by his learning operations specialist and new bronchodilators were added. The patient [...] variant detected [Refer (more content not included)... [facility] 05-14-2023 History of Present illness Narrative PATIENT NAME: Raghavendra Heard DATE: 05/14/2023 PRIMARY CARE PHYSICIAN: Dr. Prerna Grissom II OTHER PHYSICIANS: Dr. Toledo (Cardiology [facility]), Dr. Zhang, Dr. Hernández (Housekeeping Cleaner in [place]), Dr. Stinson (Thoracic Surgery in [place]), Dr. Alberts Portions of this encounter note [...] prednisone. Subsequently he was seen by his learning operations specialist and new bronchodilators were added. The patient [...] Consider continued interval follow-up. 12/16/2022 MRI brain [place] Mild atrophy and chronic microvascular disease. No acute intracranial findings. 11/15/2022 Chest x-ray IMPRESSION: 1. Diffuse interstitial opacities throughout both lungs, suggestive of edema. 2. More patchy regions of airspace opacification within the right mid and lower lung, which could be infectious/inflammatory. If warranted, consider chest CT for further assessment. 3. Small right pleural effusion. 10/02/2022 CT Brain ([facility]) Unremarkable exam 09/26/2022 CT chest IMPRESSION: 1. [...] in the right lung. 10/11/2021 Skeletal survey ([facility]) No new lytic changes to suggest progression [...] a bronchoscopy with EBUS (Dr. Balwinder Roberto, [facility] in [place]). Bronchoscopy revealed no endobronchial lesions. Transbronchial biopsy [...] thoracic surgery. The patient was seen by [facility] pain management in December 2020, and is [...] worsen. Ja Becker MD CC: Dr. Hernández (Housekeeping Cleaner in [place]) documented in this encounter [facility] 05-07-2023 History of Present illness Narrative Radiology [...] 2023 9:54 AM documented in this encounter [facility] 05-07-2023 Note HNO ID: [id number] Author: Rhona Martin RT (R) Service: ? [...] Martin, RT(R) May 07, 2023 9:54 AM [facility] 05-04-2023 Miscellaneous Notes Pt requesting to have his Meloxicam refilled. Per pt's record, it appears the pt should have refills remaining. Spoke w/ pharmacist @ [facility] in [place]. Pharmacist confirms that they have a script w/ refills on file. Notes that they are almost done filling it. Pt notified and verbalizes understanding. Rhona Ruiz RN documented in this encounter [facility] 05-04-[address] Cardiology - [facility] Subjective Raghavendra Heard is a 78 [...] the evening., Dis (more content not included)... [facility] 05-03-2023 Note HNO ID: [id number] Author: Lexus Alberts, DO Service: ? Author Type: Physician Type: Progress Notes Filed: 05/03/2023 1:08 PM Note Text: [facility] Follow Up Visit May SUBJECTIVE: Raghavendra Heard a 78 year old presents to [facility] Pain Management Department, accompanied by spouse, radha [...] twice daily, refill given. Continue Gabapentin and Quitaque per Dr. Becker. RTC in 1 year [...] supervised home exercise program (HEP): No 5. 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 [facility] 04-02-2023 History of Present illness Narrative PATIENT NAME: Raghavendra Heard DATE: 04/02/2023 PRIMARY CARE PHYSICIAN: Dr. Prerna Grissom II OTHER PHYSICIANS: Dr. Toledo (Cardiology [facility]), Dr. Zhang, Dr. Hernández (Housekeeping Cleaner in [place]), Dr. Stinson (Thoracic Surgery in [place]), Dr. Alberts Portions of this encounter note [...] did have a nice family reunion in [place]. MEDICATIONS: DULoxetine (CYMBALTA) 60 mg capsule Take [...] Consider continued interval follow-up. 12/16/2022 MRI brain ([facility] Mild atrophy and chronic microvascular disease. No acute intracranial findings. 11/15/2022 Chest x-ray IMPRESSION: 1. Diffuse interstitial opacities throughout both lungs, suggestive of edema. 2. More patchy regions of airspace opacification within the right mid and lower lung, which could be infectious/inflammatory. If warranted, consider chest CT for further assessment. 3. Small right pleural effusion. 10/02/2022 CT Brain ([facility]) Unremarkable exam 09/26/2022 CT chest IMPRESSION: 1. [...] in the right lung. 10/11/2021 Skeletal survey ([facility]) No new lytic changes to suggest progression [...] a bronchoscopy with EBUS (Dr. Balwinder Roberto, [facility] in [place]). Bronchoscopy revealed no endobronchial lesions. Transbronchial biopsy [...] thoracic surgery. The patient was seen by [facility] pain management in December 2020, and is much improved on current medications. He will continue his current medications and follow-up with [facility] pain management (Dr. Alberts) as scheduled. 7. Anemia Since the diagnosis and treatment of lung cancer the patient has had progressive anemia, most likely multifactorial. Amber Rodriguez APRN.CNP I spent a total of 30 minutes on the date of the service which included preparing to see the patient, [id number] patient care, completing clinical documentation, obtaining and/or reviewing separately obtained history, performing a medically appropriate examination, counseling and educating the patient/family/caregiver, ordering medications, tests, or procedures, independently interpreting results (not separately reported), and communicating results to the patient/family/caregiver. documented in this encounter [facility] 03-19-2023 Miscellaneous Notes Call spoke with patient, [...] mouth twice daily. documented in this encounter [facility] 02-20-2023 Miscellaneous Notes Transfuse of 2 units packed RBC's at [facility] on 02-21. Will go today for port draw. Orders and cbc were faxed to [facility] infusion center Clerical: Pt calls back requesting transfusion be scheduled @ [facility]. Rhona Ruiz RN Pt notified and agrees to transfusion. Clerical: Please arrange for 2 units RBCs @ [facility]. Transfusion orders pending Dr's signature. Pt is [...] before his return visit. Can arrange at [facility] or his local hospital. documented in this encounter [facility] 02-19-2023 Nurse Note Clinical questionnaires incomplete due to Nurse was Interrupted by provider during rooming process documented in this encounter [facility] 02-19-2023 History of Present illness Narrative PATIENT NAME: Raghavendra Heard DATE: 02/19/2023 PRIMARY CARE PHYSICIAN: Dr. Prerna Grissom II OTHER PHYSICIANS: Dr. Toledo (Cardiology [facility]), Dr. Zhang, Dr. Hernández (Housekeeping Cleaner in [place]), Dr. Stinson (Thoracic Surgery in [place]), Dr. Alberts Portions of this encounter note [...] exertion. He was recently seen by his learning operations specialist and given inhalers, which have not helped [...] Consider continued interval follow-up. 12/16/2022 MRI brain ([facility]) Mild atrophy and chronic microvascular disease. No acute intracranial findings. 11/15/2022 Chest x-ray IMPRESSION: 1. Diffuse interstitial opacities throughout both lungs, suggestive of edema. 2. More patchy regions of airspace opacification within the right mid and lower lung, which could be infectious/inflammatory. If warranted, consider chest CT for further assessment. 3. Small right pleural effusion. 10/02/2022 CT Brain ([facility]) Unremarkable exam 09/26/2022 CT chest IMPRESSION: 1. [...] in the right lung. 10/11/2021 Skeletal survey ([facility]) No new lytic changes to suggest progression [...] [facility] [place]choscopy revealed no endobronchial lesions. Transbronchial biopsy [...] Ja Becker MD documented in this encounter [facility] 02-14-2023 History of Present illness Narrative Radiology [...] 2023 9:50 AM documented in this encounter [facility] 01-01-2023 Nurse Note Clinical questionnaires incomplete due to Nurse was Interrupted by provider during rooming process. Unable to go over patient's medication due to being interrupted. Debbie Downey Clinical questionnaires incomplete due to Patient declined to complete or answer questions with nurse documented in this encounter [facility] 01-01-2023 History of Present illness Narrative PATIENT NAME: Raghavendra Heard DATE: 01/01/2023 PRIMARY CARE PHYSICIAN: Dr. Prerna Grissom II OTHER PHYSICIANS: Dr. Toeldo (Cardiology [facility]), Dr. Zhang, Dr. Hernández (Housekeeping Cleaner in [place]), Dr. Stinson (Thoracic Surgery in [place]), Dr. Alberts Portions of this encounter note [...] pain has worsened somewhat. He currently takes Quitaque and multiple other medications with relief. No [...] Sequence: ([id number])]. RADIOLOGIC STUDIES: 12/16/2022 MRI brain ([facility] Mild atrophy and chronic microvascular disease. No acute intracranial findings. 11/15/2022 Chest x-ray IMPRESSION: 1. Diffuse interstitial opacities throughout both lungs, suggestive of edema. 2. More patchy regions of airspace opacification within the right mid and lower lung, which could be infectious/inflammatory. If warranted, consider chest CT for further assessment. 3. Small right pleural effusion. 10/02/2022 CT Brain ([facility]) Unremarkable exam 09/26/2022 CT chest IMPRESSION: 1. [...] in the right lung. 10/11/2021 Skeletal survey ([facility]) No new lytic changes to suggest progression [...] a bronchoscopy with EBUS (Dr. Balwinder Roberto, [facility] in [place]). Bronchoscopy revealed no endobronchial lesions. Transbronchial biopsy [...] thoracic surgery. The patient was seen by [facility] pain management in December 2020, and is much improved on current medications. He will continue his current medications and follow-up with [facility] pain management (Dr. Alberts) as scheduled. Ja Becker MD documented in this encounter [facility] 12-26-2022 Miscellaneous Notes Call placed to pt. [...] Rhona Ruiz RN documented in this encounter [facility] 12-08-2022 Miscellaneous Notes Call placed to pt. [...] Rhona Ruiz RN documented in this encounter [facility] 12-04-2022 History of Present illness Narrative PATIENT NAME: Raghavendra Heard DATE: 12/04/2022 PRIMARY CARE PHYSICIAN: Dr. Prerna Grissom II OTHER PHYSICIANS: Dr. Toledo (Cardiology [facility]), Dr. Zhang, Dr. Hernández (Housekeeping Cleaner in [place]), Dr. Stinson (Thoracic Surgery in [place]), Dr. Alberts Portions of this encounter note [...] Small right pleural effusion. 10/02/2022 CT Brain ([facility]) Unremarkable exam 09/26/2022 CT chest IMPRESSION: 1. [...] in the right lung. 10/11/2021 Skeletal survey ([facility]) No new lytic changes to suggest progression [...] a bronchoscopy with EBUS (Dr. Balwinder Roberto, [facility] in [place]). Bronchoscopy revealed no endobronchial lesions. Transbronchial biopsy [...] thoracic surgery. The patient was seen by [facility] pain management in December 2020, and is much improved on current medications. He will continue his current medications and follow-up with [facility] pain management (Dr. Alberts) as scheduled. Amber Rodriguez APRN.CNP I spent a total of 30 minutes on the date of the service which included preparing to see the patient, [id number] patient care, completing clinical documentation, obtaining and/or reviewing separately obtained history, performing a medically appropriate examination, counseling and educating the patient/family/caregiver, ordering medications, tests, or procedures, independently interpreting results (not separately reported), and communicating results to the patient/family/caregiver. documented in this encounter [facility] 11-15-2022 History of Present illness Narrative Radiology [...] 2022 3:19 PM documented in this encounter [facility] 10-31-2022 History of Present illness Narrative Florentin Triana, PATIENT NAME: Raghavendra Heard DATE: 10/31/2022 PRIMARY CARE PHYSICIAN: Dr. Prerna Grissom II OTHER PHYSICIANS: Dr. Toledo (Cardiology [facility]), Dr. Zhang, Dr. Hernández (Housekeeping Cleaner in [place]), Dr. Stinson (Thoracic Surgery in [place]), Dr. Alberts Portions of this encounter note [...] Sequence: ([id number])]. RADIOLOGIC STUDIES: 10/02/2022 CT Brain ([facility]) Unremarkable exam 09/26/2022 CT chest IMPRESSION: 1. [...] in the right lung. 10/11/2021 Skeletal survey ([facility]) No new lytic changes to suggest progression [...] are seen. 06/16/2020 Plain film bone survey ([facility]) Impression: No lytic lesions to correspond with [...] in the right lung. 02/20/2019 PET SCAN ([email or web address]) Solid spiculated 2.0 cm nodule in the [...] a bronchoscopy with EBUS (Dr. Balwinder Roberto, [facility] in [place]). Bronchoscopy revealed no endobronchial lesions. Transbronchial biopsy [...] thoracic surgery. The patient was seen by [facility] pain management in December 2020, and is much improved on current medications. He will continue his current medications and follow-up with [facility] pain management (Dr. Alberts) as scheduled. Amber Rodriguez APRN.JC I spent a total of 30 minutes on the date of the service which included preparing to see the patient, [id number] patient care, completing clinical documentation, obtaining and/or reviewing separately obtained history, performing a medically appropriate examination, counseling and educating the patient/family/caregiver, ordering medications, tests, or procedures, independently interpreting results (not separately reported), and communicating results to the patient/family/caregiver. documented in this encounter [facility] 10-20-2022 Miscellaneous Notes CYCLE 1/DAY 1 POST [...] Rhona Ruiz RN documented in this encounter [facility] 10-09-2022 Miscellaneous Notes Patient has been rescheduled [...] Pt states he spent some time in [facility] over the weekend. Pt states he has bronchitis and a sinus infection and is taking levaquin for this. Pt isn't sure if he should come into his appointment or not tomorrow? Ayanna: can you get records Please advise Iza Jha RN documented in this encounter [facility] 10-09-2022 Miscellaneous Notes Pt requesting refill on his lawrence. Iza Jha RN documented in this encounter [facility] 10-03-2022 Miscellaneous Notes EMERGENCY ROOM CALL BACK [...] provider, Dr Becker on 10/10/22: Yes Next Peat Shredder Tender outreach with patient scheduled? Advised pt to [...] stopped at [employer] on the way home. [place] great after eating. Denies dizziness today. PATIENT EDUCATION/REINFORCEMENT Patient verbalizes understanding of when to seek Medical Attention? YES Patient verbalizes understanding of after hours and weekend phone number? YES Patient verbalizes understanding of next outreach appointment? YES Rhona Ruiz RN documented in this encounter [facility] 10-02-2022 History of Present illness Narrative 1430- [...] Kurtz and this RN. 1528-Pt taken to [facility] by [facility] with to follow in personal car. [...] notified. 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 Rhona Ruiz RN The following approved medication requests have been transmitted electronically. Requested Prescriptions Signed Prescriptions Disp Refills HYDROcodone-acetaminophen (NORCO) 5-325 mg per tablet 180 tablet 0 Sig: Take 2 tablets by mouth every 6 hours as needed. Authorizing Provider: AMBER RODRIGUEZ APRN.JC Patient phones requesting refills as follows: Script was inadvertently sent again to [facility]. Needs to go to [facility]. Requested Prescriptions Pending Prescriptions Disp Refills HYDROcodone-acetaminophen (NORCO) 5-325 mg per tablet 180 tablet 0 Sig: Take 2 tablets by mouth every 6 hours as needed. Please review and advise. Rhona Ruiz RN documented in this encounter [facility] 09-27-2022 Miscellaneous Notes Patient phones requesting refills as follows: [facility] in [place] reports that they have been out of Quitaque for over 2 months. Unable to fill pt's script. Will need to go to [facility]. Requested Prescriptions Pending Prescriptions Disp Refills HYDROcodone-acetaminophen (NORCO) 5-325 mg per tablet 180 tablet 0 Sig: Take 2 tablets by mouth every 6 hours as needed. Please review and advise. Rhona Ruiz RN documented in this encounter [facility] 09-27-2022 Miscellaneous Notes Patient phones requesting refills as follows: Last script written on 08/22/22 Requested Prescriptions Pending Prescriptions Disp Refills HYDROcodone-acetaminophen (NORCO) 5-325 mg per tablet 180 tablet 0 Sig: Take 2 tablets by mouth every 6 hours as needed. Please review and advise. Rhona Ruiz RN documented in this encounter [facility] 09-26-2022 Miscellaneous Notes Patient is scheduled on [...] Heidi Heck RN documented in this encounter [facility] 09-26-2022 History of Present illness Narrative Radiology [...] 2022 8:58 AM documented in this encounter [facility] 09-11-2022 History of Present illness Narrative PATIENT NAME: Raghavendra Heard DATE: 09/11/2022 PRIMARY CARE PHYSICIAN: Dr. Prerna Grissom II OTHER PHYSICIANS: Dr. Toledo (Cardiology [facility]), Dr. Zhang, Dr. Hernández (Housekeeping Cleaner in [place]), Dr. Stinson (Thoracic Surgery in [place]), Dr. Alberts Portions of this encounter note [...] in the right lung. 10/11/2021 Skeletal survey ([facility]) No new lytic changes to suggest progression [...] are seen. 06/16/2020 Plain film bone survey ([facility]) Impression: No lytic lesions to correspond with [...] a bronchoscopy with EBUS (Dr. Balwinder Roberto, [facility] in [place]). Bronchoscopy revealed no endobronchial lesions. Transbronchial biopsy [...] thoracic surgery. The patient was seen by [facility] pain management in December 2020, and is much improved on current medications. He will continue his current medications and follow-up with [facility] pain management (Dr. Alberts) as scheduled. Ja Becker MD documented in this encounter [facility] 08-22-2022 Miscellaneous Notes Call received from saran Arriaga/ [facility], they do not have Quitaque in stock. It has not been available to them for over a month. They will be cancelling the Quitaque script, but filling the Diazepam. New script [...] hours as needed. Authorizing Provider: AMBER RODRIGUEZ APRN.SOUND CONTROLLER Patient phones requesting refills as follows: Requested [...] Rhona Ruiz RN documented in this encounter [facility] 08-14-2022 History of Present illness Narrative [facility] Radiation Oncology Department RADIATION ONCOLOGY - COMPLETION [...] Dr. Chelsy Becker documented in this encounter [facility] 08-09-2022 Miscellaneous Notes Seeing as urgent visit today. Amber Rodriguez APRN.CNP Patient stopped in stating he feels he has bronchitis. He reports he gets this every year and is usually prescribed a steroid, antibiotic and strong cough medicine. Pt states symptoms started Sunday afternoon. 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 Denies Fever. [...] Vesta Oquendo, ILENE documented in this encounter [facility] 08-08-2022 History of Present illness Narrative PATIENT NAME: Raghavendra Heard DATE: 08/08/2022 PRIMARY CARE PHYSICIAN: Dr. Prerna Grissom II OTHER PHYSICIANS: Dr. Toledo (Cardiology [facility]), Dr. Zhang, Dr. Hernández (Housekeeping Cleaner in [place]), Dr. Stinson (Thoracic Surgery in [place]), Dr. Alberts Portions of this encounter note [...] in the right lung. 10/11/2021 Skeletal survey ([facility]) No new lytic changes to suggest progression [...] are seen. 06/16/2020 Plain film bone survey ([facility]) Impression: No lytic lesions to correspond with [...] a bronchoscopy with EBUS (Dr. Balwinder Roberto, [facility] in [place]). Bronchoscopy revealed no endobronchial lesions. Transbronchial biopsy [...] thoracic surgery. The patient was seen by [facility] pain management in December 2020, and is much improved on current medications. He will continue his current medications and follow-up with [facility] pain management (Dr. Alberts) as scheduled. Amber Rodriguez APRN.JC I spent a total of 30 minutes on the date of the service which included preparing to see the patient, [id number] patient care, completing clinical documentation, obtaining and/or reviewing separately obtained history, performing a medically appropriate examination, counseling and educating the patient/family/caregiver, ordering medications, tests, or procedures, independently interpreting results (not separately reported), and communicating results to the patient/family/caregiver. documented in this encounter [facility] 08-07-2022 History of Present illness Narrative Radiation [...] Marisabel Saunders MD documented in this encounter [facility] 08-02-2022 Miscellaneous Notes Patient has an OTV appointment on 08/08. Please place lab orders. Debbie Downey documented in this encounter [facility] 08-01-2022 History of Present illness Narrative PATIENT NAME: Raghavendra Heard DATE: 08/01/2022 PRIMARY CARE PHYSICIAN: Dr. Prerna Grissom II OTHER PHYSICIANS: Dr. Toledo (Cardiology [facility]), Dr. Zhang, Dr. Hernández (Housekeeping Cleaner in [place]), Dr. Stnison (Thoracic Surgery in [place]), Dr. Alberts Portions of this encounter note [...] in the right lung. 10/11/2021 Skeletal survey ([facility]) No new lytic changes to suggest progression [...] are seen. 06/16/2020 Plain film bone survey ([facility]) Impression: No lytic lesions to correspond with [...] a bronchoscopy with EBUS (Dr. Balwinder Roberto, [facility] in [place]). Bronchoscopy revealed no endobronchial lesions. Transbronchial biopsy [...] Ja Becker MD documented in this encounter [facility] 07-25-2022 Nurse Note Patient does have Dermatology appointment on 08/10/22. Catarina Feng MA documented in this encounter [facility] 07-25-2022 History of Present illness Narrative PATIENT NAME: Raghavendra Heard DATE: 07/25/2022 PRIMARY CARE PHYSICIAN: Dr. Prerna Grissom II OTHER PHYSICIANS: Dr. Toledo (Cardiology [facility]), Dr. Zhang, Dr. Hernández (Housekeeping [facility]er in [place]), Dr. Stinson (Thoracic Surgery in [place]), Dr. Alberts (Elements copied from Dr. Becker's [...] in the right lung. 10/11/2021 Skeletal survey ([facility]) No new lytic changes to suggest progression [...] are seen. 06/16/2020 Plain film bone survey ([facility]) Impression: No lytic lesions to correspond with [...] a bronchoscopy with EBUS (Dr. Balwinder Roberto, [facility] in [place]). Bronchoscopy revealed no endobronchial lesions. Transbronchial biopsy [...] Glenys Kurtz PA-C documented in this encounter [facility] 07-18-2022 Miscellaneous Notes Patient phones requesting refills [...] Rhona Ruiz RN documented in this encounter [facility] 07-18-2022 History of Present illness Narrative PATIENT NAME: Raghavendra Heard DATE: 07/18/2022 PRIMARY CARE PHYSICIAN: Dr. Prerna Grissom II OTHER PHYSICIANS: Dr. Toledo (Cardiology [facility]), Dr. Zhang, Dr. Hernández (House[facility]er in [place]), Dr. Stinson (Thoracic Surgery in [place]), Dr. Alberts Portions of this encounter note [...] in the right lung. 10/11/2021 Skeletal survey ([facility]) No new lytic changes to suggest progression [...] are seen. 06/16/2020 Plain film bone survey ([facility]) Impression: No lytic lesions to correspond with [...] a bronchoscopy with EBUS (Dr. Balwinder Roberto, [facility] in [place]). Bronchoscopy revealed no endobronchial lesions. Transbronchial biopsy [...] Ja Becker MD documented in this encounter [facility] 07-17-2022 Miscellaneous Notes Called [facility] Derm office spoke with Noelle. She states they have received this referral and have called left message for patient to call their office back to schedule. Rosalina Blount Records faxed to [facility] Dermatology. Ayanna: Information ready for you. Rosalina Blount Refer to [facility] Dermatology for skin lesion on Right ear. They will review the records and call the patient to schedule this appt. Dajuan, Please print info for Ayanna to Fax. Ayanna, Please fax records to Dr Grier office. Thank you ladies documented in this encounter [facility] 07-17-2022 History of Present illness Narrative Radiation [...] Marisabel Saunders MD documented in this encounter [facility] 07-11-2022 History of Present illness Narrative PATIENT NAME: Raghavendra Heard DATE: 07/11/2022 PRIMARY CARE PHYSICIAN: Dr. Prerna Grissom II OTHER PHYSICIANS: Dr. Toledo (Cardiology [facility]), Dr. Zhang, Dr. Hernández (Housekeeping [facility]er in [place]), Dr. Stinson (Thoracic Surgery in [place]), Dr. Alberts (Elements copied from Glenys Kurtz [...] wounds or petechiae. PATHOLOGY: 05/16/2022 EBUS biopsy ([facility]) Lymph node, station 10 R: glandular epithelium [...] in the right lung. 10/11/2021 Skeletal survey ([facility]) No new lytic changes to suggest progression [...] are seen. 06/16/2020 Plain film bone survey ([facility]) Impression: No lytic lesions to correspond with [...] in the right lung. 02/20/2019 PET SCAN ([facility]) Solid spiculated 2.0 cm nodule in the [...] a bronchoscopy with EBUS (Dr. Balwinder Roberto, [facility] in [place]). Bronchoscopy revealed no endobronchial lesions. Transbronchial biopsy [...] thoracic surgery. The patient was seen by [facility] pain management in December 2020, and is [...] which included preparing to see the patient, [id number] patient care, completing clinical documentation, obtaining and/or reviewing separately obtained history, performing a medically appropriate examination, counseling and educating the patient/family/caregiver, ordering medications, tests, or procedures, independently interpreting results (not separately reported), and communicating results to the patient/family/caregiver. documented in this encounter [facility] 07-07-2022 Miscellaneous Notes CYCLE 1/DAY 1 POST [...] Rhona Ruiz RN documented in this encounter [facility] 07-04-2022 History of Present illness Narrative Radiation [...] Marisabel Saunders MD documented in this encounter [facility] 06-22-2022 Miscellaneous Notes Patient scheduled for 07/04. [...] Ariane Velasquez LPN documented in this encounter [facility] 06-22-2022 History of Present illness Narrative RAGHAVENDRA HEARD [id number] 06/22/2022 [facility] Radiation Oncology Department SIMULATION NOTE DATE OF SIMULATION: 06/22/2022 THERAPIST: Zuly Peters MACHINE: [employer] DIAGNOSIS: Malignant neoplasm of upper lobe, right [...] STEPHEN 2:47 PM documented in this encounter [facility] 06-22-2022 History of Present illness Narrative RAGHAVENDRA HEARD [id number] 06/22/2022 [facility] Department of Radiation Oncology Treatment Planning Note [...] M.D. 21:50 PM documented in this encounter [facility] 06-16-2022 Miscellaneous Notes The following approved medication [...] Rhona Ruiz RN documented in this encounter [facility] 06-16-2022 Miscellaneous Notes Signed. Amber Rodriguez APRN.CNP Pt's surgical path final. Order for PDL1 testing pended. Rhona Ruiz RN documented in this encounter [facility] 06-16-2022 Miscellaneous Notes Patient has been scheduled & notified of appointment. Roque Paz Roque: Will you please schedule Nain for a SIM treating lung with IV contrast with Dr. Saunders? Thanks Ariane Velasquez LPN documented in this encounter [facility] 06-16-2022 Miscellaneous Notes Clerical: Please see JENNIFER's instructions below. Rhona Ruiz RN ----- Message from Marisabel Saunders MD sent at 06/15/2022 4:20 PM EST ----- Please schedule simulation. ----- Message ----- From: Ja Becker MD Sent: 06/15/2022 12:10 PM EST To: Marisabel Saunders MD, Rhona Ruiz RN The patient was informed that his lung biopsy is positive. Please ask that [facility] send his tumor specimen for hotspot and [...] final. Rhona Ruiz RN ----- Message from Ja Becker MD sent at 06/15/2022 12:10 PM [...] of the chemotherapy. 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 Staffing Anesthesiologist: Elvin Boo MD MANAGER LINE: Tabitha Plasencia APRN.MANAGER LINE Performed by: JACOBY Indications and Patient Condition Indications for airway management: anesthesia Preoxygenated: yes anesthesia circuit Patient position: sniffing Method: asleep Difficult Mask: No Final Airway Details Final airway type: supraglottic airway Number of attempts at approach: 1 Final Supraglottic Airway: IGEL Size 5 Seal Adequate: yes Airway not difficult SIGNATURE: Tabitha Plasencia APRN.MANAGER LINE PATIENT NAME: Raghavendra Heard DATE: June 14, 2022 TIME: 9:59 AM CSN: [id number] [facility] 06-14-[address] Brewer reviewed the case in intradepartmental consultation with concurrence. See also related surgical pathology report [id number], which is currently pending. NGS lung + ALK is pending and results will be issued in an addendum to this report. [facility] Comment on above: Order Comment: Speci men Type: SPECIMEN OBTAINED BY [facility] Ordering Facility: [facility] Address: [address] [place] [address] Performed By: #### L OZZIE, FSHTPA #### CLARITY KAREEM LIMS CLIA [id number] [address] [facility] [id number] [place], [place] [id number] [place] #### [place] #### [facility] CLIA [id number] [address] [place] [id number] [place] [facility] 06-14-2022 Note [facility] Patient Name: Raghavendra Heard Procedure Date: 06/14/2022 9:11 AM Date of : 1945 Admit Type: Outpatient Age: 77 Room: [facility] Room 2 Gender: Male Attending MD: Henri [...] Start: 9:46:38 AM Procedure End: 10:14:41 AM [facility] 06-13-2022 Miscellaneous Notes Spoke with the patient confirmed 8 am arrival time for 9 am appointment at [facility] Michael Booker documented in this encounter [facility] 06-12-2022 History of Present illness Narrative EKG performed as ordered. Electronically sent to [facility] main. Placed paper copy in scan folder. Marie Gomez documented in this encounter [facility] 06-05-2022 Note HNO ID: [id number] Author: Henri Anderson MD Service: ? Author Type: Physician Type: Progress Notes Filed: 06/05/2022 11:46 AM Note Text: VIRTUAL VISIT PROGRESS NOTE This is a virtual visit using Satago video visit. It required patient-provider interaction for the medical decision making as documented below. Raghavendra Heard is a 77 year old male seen for abnormal PET. Patient referred by Dr. Becker, my findings and recommendations will be communicated to him via shared electronic medical record. The patient has a past history of RUL lung cancer, early stage, treated with RUL lobectomy (done in [facility]) in 2019. Follow up scans had been done, and over the past few years a small area in the right hilum has been developing, now with progressive FDG uptake, SUV up to 9. He had a biopsy done in [place] of this, but EBUS-TBNA showed only atypical [...] rise with nor (more content not included)... [facility] 06-05-2022 History of Present illness Narrative VIRTUAL VISIT PROGRESS NOTE This is a virtual visit using Satago video visit. It required patient-provider interaction for the medical decision making as documented below. Raghavendra Heard is a 77 year old male seen for abnormal PET. Patient referred by Dr. Becker, my findings and recommendations will be communicated to him via shared electronic medical record. The patient has a past history of RUL lung cancer, early stage, treated with RUL lobectomy (done in [facility]) in 2019. Follow up scans had been done, and over the past few years a small area in the right hilum has been developing, now with progressive FDG uptake, SUV up to 9. He had a biopsy done in [place] of this, but EBUS-TBNA showed only atypical [...] which included preparing to see the patient, [id number] patient care, completing clinical documentation, obtaining and/or reviewing separately obtained history, performing a medically appropriate examination, counseling and educating the patient/family/caregiver, ordering medications, tests, or procedures, communicating with other HCPs (not separately reported), independently interpreting results (not separately reported), communicating results to the patient/family/caregiver, and care coordination (not separately reported) Henri Anderson MD June 05, 2022 documented in this encounter [facility] 06-02-2022 Miscellaneous Notes Contacted patient, name and verified. Advised patient to consult prescribing physician and/or surgeon for Asprin recommendations. Advised to review msg for these recommendations. Patient aware and agreeable. documented in this encounter [facility] 06-01-[address] Anderson is working on getting him scheduled. Dr Becker is referring Raghavendra Heard for Ebus. Thank you . documented in this encounter [facility] 05-30-2022 History of Present illness Narrative PATIENT NAME: Raghavendra Heard DATE: 05/30/2022 PRIMARY CARE PHYSICIAN: Dr. Prerna Grissom II OTHER PHYSICIANS: Dr. Toledo (Cardiology [facility]), Dr. Zhang, Dr. Hernández (Housekeeping Cleaner in [place]), Dr. Stinson (Thoracic Surgery in [place]), Dr. Alberts Portions of this encounter note [...] with EBUS on 05/16/2022 (Dr. Balwinder Roberto, [facility] in [place]). Bronchoscopy revealed no endobronchial lesions. Transbronchial biopsy [...] Peripheral pulses: Normal. PATHOLOGY: 05/16/2022 EBUS biopsy ([facility]) Lymph node, station 10 R: glandular epithelium [...] in the right lung. 10/11/2021 Skeletal survey ([facility]) No new lytic changes to suggest progression [...] are seen. 06/16/2020 Plain film bone survey ([facility]) Impression: No lytic lesions to correspond with [...] in the right lung. 02/20/2019 PET SCAN ([facility]) Solid spiculated 2.0 cm nodule in the [...] a bronchoscopy with EBUS (Dr. Balwinder Roberto, [facility] in [place]). Bronchoscopy revealed no endobronchial lesions. Transbronchial biopsy of a right hilar lymph node (10 R) was obtained, but pathology revealed only atypical epithelial cells and no evidence of malignancy. Options for management were discussed at length with the patient and his , and we have elected to refer to [facility] pulmonary to evaluate for a repeat EBUS biopsy of the abnormal right hilar lymph node. We will refer to Dr. Mike's group in [place]. I will schedule a temporary return visit [...] thoracic surgery. The patient was seen by [facility] pain management in December 2020, and is much improved on current medications. He will continue his current medications and follow-up with [facility] pain management (Dr. Alberts) as scheduled. Ja Becker MD documented in this encounter [facility] 05-22-2022 Miscellaneous Notes Patient coming in on Sunday05/30/22 for follow up with labs. Please add lab orders if needed. Thanks, Skylar Gaspar MA documented in this encounter [facility] 05-09-2022 Miscellaneous Notes EBUS has not yet been scheduled; However, Dr. Newman is reviewing the images today. Per the office they are in the process of scheduling & they will contact patient. Roque Paz documented in this encounter [facility] 05-09-2022 History of Present illness Narrative Radiation [...] Saunders MD cc: Prerna Grissom II, MD [address] [place] [id number] Ja Becker ([facility]) [address] [place] [address] [place] [id number] documented in this encounter [facility] 05-02-2022 History of Present illness Narrative PATIENT NAME: Raghavendra Heard DATE: 05/02/2022 PRIMARY CARE PHYSICIAN: Dr. Prerna Grissom II OTHER PHYSICIANS: Dr. Toledo (Cardiology [facility]), Dr. Zhang, Dr. Hernández (Housekeeping Cleaner in [place]), Dr. Stinson (Thoracic Surgery in [place]), Dr. Alberts Portions of this encounter note [...] in the right lung. 10/11/2021 Skeletal survey ([facility]) No new lytic changes to suggest progression [...] are seen. 06/16/2020 Plain film bone survey ([facility]) Impression: No lytic lesions to correspond with [...] we we will refer him to his learning operations specialist in [place]. Assuming the biopsy confirms recurrent adenocarcinoma we [...] scheduled. Ja Becker MD CC: Dr. Hernández (Housekeeping [facility]er in [place]) documented in this encounter [facility] 04-28-2022 History of Present illness Narrative Radiology [...] AM PAGER/CONTACT #: documented in this encounter [facility] 04-24-2022 History of Present illness Narrative [facility] Medication Refill Raghavendra Heard April 24, 2022 - 1:59 PM Medication Refill Appointment Raghavendra Heard is a 77 year old male who presents to [facility], accompanied by spouse, [...] of right upper lobectomy. He is on Quitaque 5/325 mg 6 times daily prescribed by [...] twice daily, refill given. Continue Gabapentin and Quitaque per Dr. Becker. RTC in 1 year for F/U The above plan and management options were discussed at length with patient. Patient is in agreement with the above and verbalized understanding. I spent a total of 30 minutes on the date of the service which included preparing to see the patient, [id number]-[id number] patient care, completing clinical documentation, performing a medically appropriate examination, counseling and educating the patient/family/caregiver, ordering medications, tests, or procedures, and communicating with other HCPs (not separately reported). Lexus Alberts DO April 24, 2022 documented in this encounter [facility] 04-06-2022 Miscellaneous Notes Order placed per Dr Becker. Rhona Ruiz RN Pt requesting a handicap placard. Order pended. Rhona Ruiz RN documented in this encounter [facility] 03-30-2022 History of Present illness Narrative Radiology [...] 2022 8:21 AM documented in this encounter [facility] 03-13-2022 Miscellaneous Notes Patient phones requesting refills as follows: Last script written on 01/30/22. Requested Prescriptions Pending Prescriptions Disp Refills HYDROcodone-acetaminophen (NORCO) 5-325 mg per tablet 180 tablet 0 Sig: Take 1 tablet by mouth every 4 hours as needed for up to 30 days. Please review and advise. Rhona Ruiz RN documented in this encounter [facility] 02-23-2022 History of Present illness Narrative SOCIAL WORK FOLLOW UP NOTE: [facility] Date of service:02/23/22 TOPICS ADDRESSED: community resources and [employer] Fund PLAN: Assist with financial support applications and Continue follow up as needed Assigned JR listed in Care Team tab: Yes SW received an email from Smiley at the [employer] Smiley asked for help with this Patients application. JR completed the requested section and faxed it back to Smiley. JR will remain available and will follow up as appropriate. ELLIE Squires documented in this encounter [facility] 02-09-2022 Miscellaneous Notes I called and left a message on the patient's voicemail. I informed the patient that the Duloxetine was just filled on 01/30/2022 for a 90 day supply. Your last office visit was 04/28/2021 and he will need to be seen for any further refill. I informed him that I will have a tin flipper call the patient to assist him in [...] Gia Berger LPN documented in this encounter [facility] 01-31-2022 Miscellaneous Notes The following approved medication requests have been transmitted electronically. Signed Prescriptions Disp Refills diazePAM (VALIUM) 5 mg tablet 90 tablet 0 Sig: TAKE 1 TABLET BY MOUTH EVERY 8 HOURS NEEDED EMERALD Class: C-IV JOSE: No Authorizing Provider: AMBER RODRIGUEZ APRN.SOUND CONTROLLER documented in this encounter [facility] 01-30-2022 Miscellaneous Notes The following approved medication [...] [facility] Phone #: [phone] Jonathan Ellison documented in this encounter [facility] 01-12-2022 History of Present illness Narrative PATIENT NAME: Raghavendra Heard DATE: 01/12/2022 PRIMARY CARE PHYSICIAN: Dr. Prerna Grissom II OTHER PHYSICIANS: Dr. Toledo (Cardiology [facility]), Dr. Zhang, Dr. Hernández (Housekeeping Cleaner in [place]), Dr. Stinson (Thoracic Surgery in [place]), Dr. Alberts Portions of this encounter note [...] pulses: Normal. RADIOLOGIC STUDIES: 10/11/2021 Skeletal survey ([facility]) No new lytic changes to suggest progression [...] are seen. 06/16/2020 Plain film bone survey ([facility]) Impression: No lytic lesions to correspond with [...] Ja Becker MD documented in this encounter [facility] 12-20-2021 Miscellaneous Notes The following approved medication [...] C-II JOSE: No Authorizing Provider: AMBER RODRIGUEZ APRN.SOUND CONTROLLER documented in this encounter [facility] 10-31-2021 Miscellaneous Notes Patient's request for medication [...] Loly Schneider LPN documented in this encounter [facility] 10-06-2021 History of Present illness Narrative PATIENT NAME: Raghavendra Heard DATE: 10/06/2021 PRIMARY CARE PHYSICIAN: Dr. Prerna Grissom II OTHER PHYSICIANS: Dr. Toledo (Cardiology [facility]), Dr. Zhang, Dr. Hernández (Housekeeping Cleaner in [place]), Dr. Stinson (Thoracic Surgery in [place]), Dr. Alberts Portions of this encounter note [...] are seen. 06/16/2020 Plain film bone survey ([facility]) Impression: No lytic lesions to correspond with [...] in the right lung. 02/20/2019 PET SCAN ([facility]) Solid spiculated 2.0 cm nodule in the [...] Ja Becker MD documented in this encounter [facility] 10-05-2021 Miscellaneous Notes Informed pt of Dr Becker's response. Pt verbalized understanding and denies further needs at this time. Holly Velarde RN CT stable, no signs of cancer. Great news. Will see him back as scheduled. BRM Received call from pt requesting CT scan results. BRM: Any message for pt regarding results? Holly Velarde RN documented in this encounter [facility] 09-29-2021 History of Present illness Narrative RADIOLOGY [...] 1.22 mg/dL Final 03/25/2021 Test reordered by [facility]. 0.73 - 1.22 mg/dL Corrected Comment: SEE ACC [id number] CITLALLI [id number] Account Credited 03/25/2021 0.85 0.73 - 1.22 [...] contrast PATIENT DISCHARGED TO: Ambulatory patient, left [place] department area. A Diagnostic radioactive procedure has taken place, with no further precautions necessary other than routine body substance precautions. More information regarding radiation safety can be found using this link: [email or web address] SIGNATURE: RT Karla(Tom) PATIENT NAME: Raghavendra Heard DATE: September 29, 2021 TIME: 11:00 AM PAGER/CONTACT #: documented in this encounter [facility] Evaluation note Diagnosis Neoplasm related pain (acute) (chronic) [facility] Diagnosis Multiple myeloma, remission status unspecified [...] pain (acute) (chronic) [facility] Diagnosis Malignant neoplasm of upper lobe of right lung (HCC)- Primary Malignant neoplasm of upper lobe, bronchus or lung [facility] Diagnosis Malignant neoplasm of upper lobe of right lung (HCC) Malignant neoplasm of upper lobe, bronchus or lung [facility] Diagnosis Malignant neoplasm of upper lobe of right lung (HCC)- Primary Malignant neoplasm of upper lobe, bronchus or lung [facility] Diagnosis Malignant neoplasm of upper lobe of right lung (HCC)- Primary Malignant neoplasm of upper lobe, bronchus or lung [facility] Diagnosis Malignant neoplasm of upper lobe of right lung (HCC) Malignant neoplasm of upper lobe, bronchus or lung [facility] Diagnosis Malignant neoplasm of upper lobe of right lung (HCC)- Primary Malignant neoplasm of upper lobe, bronchus or lung Multiple myeloma, remission status unspecified (HCC) Anxiety Anxiety state, unspecified Neoplasm related pain (acute) (chronic) Lesion of skin of right ear [facility] Diagnosis Malignant neoplasm of upper lobe of right lung (HCC)- Primary Malignant neoplasm of upper lobe, bronchus or lung Multiple myeloma, remission status unspecified (HCC) [facility]* Diagnosis Malignant neoplasm of upper lobe of right lung (HCC)- Primary Malignant neoplasm of upper lobe, bronchus or lung [facility] Diagnosis Malignant neoplasm of upper lobe of right lung (HCC)- Primary Malignant neoplasm of upper lobe, bronchus or lung [facility] Diagnosis Anxiety Anxiety state, unspecified Neoplasm related pain (acute) (chronic) Multiple myeloma not having achieved remission (HCC) Multiple myeloma, without mention of having achieved remission [facility]* Diagnosis Malignant neoplasm of upper lobe [...] pain (acute) (chronic) [facility] Diagnosis Malignant neoplasm of upper lobe of right lung (HCC)- Primary Malignant neoplasm of upper lobe, bronchus or lung [facility] noteNo assessment information availableL[facility] Work Phone: Evaluation note* Diagnosis Malignant neoplasm of upper lobe of right lung (HCC)- Primary Malignant neoplasm of upper lobe, bronchus or lung Multiple myeloma not having achieved remission (HCC) Multiple myeloma, without mention of having achieved remission Neoplasm related pain (acute) (chronic) Lesion of skin of right ear [facility] Diagnosis Anxiety Anxiety state, unspecified [...] dependence, uncomplicated (HCC) [facility] Diagnosis 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)- Primary Multiple myeloma, remission status unspecified (HCC) Neoplasm related pain (acute) (chronic) Moderate major depression, single episode (HCC) Major depressive disorder, single episode, moderate Malnutrition of mild degree (HCC) Malnutrition of mild degree [facility] Diagnosis Neoplasm related pain (acute) (chronic) [facility] Diagnosis Neoplasm related pain (acute) (chronic) [facility] Diagnosis Malignant neoplasm of prostate (HCC)- Primary Malignant neoplasm of prostate [facility] Diagnosis Malignant neoplasm of upper lobe of right lung (HCC)- Primary Malignant neoplasm of upper lobe, bronchus or lung Multiple myeloma not having achieved remission (HCC) Multiple myeloma, without mention of having achieved remission Neoplasm related pain (acute) (chronic) Anxiety Anxiety state, unspecified [facility] Diagnosis Malignant neoplasm of hilus of [...] pain (acute) (chronic) [facility] Diagnosis Multiple myeloma, remission status unspecified (HCC)- Primary [facility] Diagnosis Malignant neoplasm of hilus of [...] single episode, moderate [facility]* Diagnosis 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) Multiple myeloma, remission status unspecified (HCC) Anemia, unspecified type Neuropathic pain Neuralgia, neuritis, and radiculitis, unspecified Anxiety Anxiety state, unspecified Neoplasm related pain (acute) (chronic) Malignant neoplasm of unspecified part of unspecified bronchus or lung (HCC) [facility]* Diagnosis Multiple myeloma, remission status unspecified (HCC)- Primary [facility]* Diagnosis 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)- Primary Multiple myeloma not having achieved remission (HCC) Multiple myeloma, without mention of having achieved remission Neuropathic pain Neuralgia, neuritis, and radiculitis, unspecified Anxiety Anxiety state, unspecified [facility]* Diagnosis 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) [facility]* Diagnosis Neoplasm related pain (acute) (chronic) [facility]* Diagnosis Anxiety Anxiety state, unspecified Neoplasm related pain (acute) (chronic) [facility]* Diagnosis Malnutrition of mild degree (HCC) Malnutrition of mild degree Moderate major depression, single episode (HCC) Major depressive disorder, single episode, moderate Multiple myeloma, remission status unspecified (HCC) 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) [facility] Diagnosis Multiple myeloma, remission status unspecified (HCC)- Primary [facility]* Diagnosis History of lung cancer Personal history of malignant neoplasm of bronchus and lung Chest wall pain Painful respiration 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 Multiple myeloma, remission status unspecified (HCC) [facility]* Diagnosis Neoplasm related pain (acute) (chronic) [facility]* Diagnosis History of lung cancer- Primary Personal history of malignant neoplasm of bronchus and lung Chest wall pain Painful respiration 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 [facility]* Diagnosis Neoplasm related pain (acute) (chronic) Anxiety Anxiety state, unspecified [facility]* Diagnosis 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)- Primary [facility]* Diagnosis Multiple myeloma, remission status unspecified (HCC)- Primary [facility]* Diagnosis 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)- Primary Multiple myeloma not having achieved remission (HCC) Multiple myeloma, without mention of having achieved remission Neoplasm related pain (acute) (chronic) Anxiety Anxiety state, unspecified Neuropathic pain Neuralgia, neuritis, and radiculitis, unspecified [facility]* Diagnosis Neoplasm related pain (acute) (chronic) [facility] Diagnosis Anxiety Anxiety state, unspecified Neoplasm related pain (acute) (chronic) [facility]* Diagnosis Neoplasm related pain (acute) (chronic) [...] or lung (CMS/HCC) documented in this encounter [facility]* Diagnosis Malignant neoplasm of unspecified part of unspecified bronchus or lung (HCC) [facility] Diagnosis Neoplasm related pain (acute) (chronic) Anxiety Anxiety state, unspecified [facility]* Diagnosis Benign prostatic hyperplasia with [...] with urinary frequency [facility] Diagnosis Multiple myeloma not having achieved remission (HCC) Multiple myeloma, without mention of having achieved remission 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) Anemia, unspecified type [facility]* Diagnosis Multiple myeloma, remission status unspecified (HCC)- Primary [facility]* Diagnosis 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)- Primary Multiple myeloma not having achieved remission (HCC) Multiple myeloma, without mention of having achieved remission Anxiety about health Pain Generalized pain [facility]* Diagnosis Skin lesion- Primary Unspecified disorder of skin and subcutaneous tissue [facility]* Diagnosis Melanocytic nevus of trunk- Primary Benign neoplasm of skin of trunk, except scrotum Seborrheic keratosis Lentigines Capillary angioma Nevus, non-neoplastic Seborrheic keratosis, inflamed Actinic keratosis documented in this encounter [facility]* Diagnosis 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) documented in this encounter [facility] HealthcareInstructionsNot on filedocumented in this encounterWilson Memorial HospitalReason for referral (narrative)* Diagnostic Procedure Only (Routine) - Pending Review Specialty Diagnoses / Procedures Referred By Contac t Referred To Contact XR IMAGING Diagnoses Multiple myeloma not having achieved remission (HCC) Procedures XR BONE SURVEY ROUTINE RADIOLOGIC EXAMINATION OSSEOUS SURVEY COMPL Ja Becker MD [address] [place] [address] [place] [address] Xr Imaging Referral ID Status Reason Start Date Expiration Date Visits Requested Visits Authorized [id number] Pending Review Auto-Generat ed Referral 10/06/2021 11/05/2022 1 1 [facility] Diagnostic Procedure Only (Routine) - Closed Specialty Diagnoses / Procedures Referred By Oz mack Referred To Contact MOLECULAR & FUNCTIONAL IMAGING Diagnoses Malignant neoplasm of unspecified part of unspecified bronchus or lung (HCC) Procedures NM PET/CT SKULL-THIGH SUBSEQUENT PET IMAGING CT ATTENUATION SKULL BASE MID-THIGH Ja Becker MD [address] [place] [address] [place] [address] Molecular & Functional Imaging [address] [place] [address] Referral ID Status Reason Start Date Expiration Date V isits Requested Visits Authorized [id number] Closed Auto-Generate d Referral 04/06/2022 05/06/2023 1 1 [facility] Medications Administered Section Inactive Administered Medications - [...] 500 mL 999 mL/hr naloxone spry 1 [place] 1 [place], NASAL, NEEDED, 2 doses, Starting on Sun10/02/22 at 1547, Until Sun10/02/22 at 1509, decreased mental status Given 10/02/2022 3:09 PM EDT 1 [place] Given 10/02/2022 2:30 PM EDT 1 [place] Inactive Administered Medications - up to 3 most recent administrations Medication Order [facility] Action Action Date Dose Rate Site [...] to 3 most recent administrations Medication Order [facility] Action Action Date Dose Rate Site [...] THORAX W/O CNTRST Ja Becker MD [address] [place] [address] Ct Imaging Referral ID Status Reason Start Date Expiration Date Visits Requested Visits Authorized [id number] Authorized Auto-Generat ed Referral 03/30/2022 02/11/2023 1 1 Specialty Diagnoses / Procedures Referred By Contac t Referred To Contact Diagnoses Malignant neoplasm of upper lobe of right lung (HCC) Procedures CT SIM PLANNING RADIATION ONCOLOGY THER RAD SIMULAJ-AIDED FIELD SETTING COMPLEX Marisabel Saunders MD [address] [place] [address] Referral ID Status Reason Start Date Expiration Date Visits Requested Visits Authorized [id number] Pending Review PCP Requested Referral 09/20/2022 1 1 Specialty Diagnoses / Procedures Referred By Contac t Referred To Contact Dermatology Diagnoses Lesion of skin of right ear Procedures CONSULT TO DERMATOLOGY OFFICE/OUTPATIENT NEW HIGH MDM 60-74 MINUTES Amber Rodriguez, S3B MULTI SENSOR OPERATOR.SOUND CONTROLLER [address] [place] [address] [place] [address] Referral ID Status Reason Start Date Expiration Date Visits Requested Visits Authorized [id number] Authorized PCP Requested Referral 07/11/2022 07/11/2023 1 1 Referral ID Status Reason Start Date Expiration Date Visits Requested Visits Authorized [id number] Authorized Auto-Generat ed Referral 09/11/2022 10/11/2023 1 1 Specialty Diagnoses / Procedures Referred By Contac t Referred To Contact MR IMAGING Diagnoses 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) Procedures MRI BRAIN WO/W IVCON MRI BRAIN BRAIN STEM W/O W/CONTRAST MATERIAL Amber Rodriguez, S3B MULTI SENSOR OPERATOR.SOUND CONTROLLER [address] [place] [address] Mr Imaging Referral ID Status Reason Start Date Expiration Date Visits Requested Visits Authorized [id number] Pending Review Auto-Generat ed Referral 12/04/2022 01/03/2024 1 1 Referral ID Status Reason Start Date Expiration Date Visits Requested Visits Authorized [id number] Authorized Auto-Generat ed Referral 01/01/2023 01/31/2024 1 1 Specialty Diagnoses / Procedures Referred By Contac t Referred To Contact CT IMAGING Diagnoses Malignant neoplasm of unspecified part of unspecified bronchus or lung (HCC) Procedures CT CHEST WO IVCON DIAGNOSTIC COMPUTED TOMOGRAPHY THORAX W/O CNTRST Amber Rodriguez, S3B MULTI SENSOR OPERATOR.SOUND CONTROLLER [address] [place] [address] [place] [address] Referral ID Status Reason Start Date Expiration Date Visits Requested Visits Authorized [id number] Authorized Auto-Generat ed Referral 04/02/2023 05/01/2024 1 1 Specialty Diagnoses / Procedures Referred By Contac t Referred To Contact CT IMAGING Diagnoses Malignant neoplasm of unspecified part of unspecified bronchus or lung (HCC) Procedures CT CHEST WO IVCON DIAGNOSTIC COMPUTED TOMOGRAPHY THORAX W/O CNTRST Glenys Kurtz PA-C [address] [place] [address] [place] [address] Referral ID Status Reason Start Date Expiration Date Visits Requested Visits Authorized [id number] Authorized Auto-Generat ed Referral 02/15/2025 1 1 Specialty Diagnoses / Procedures Referred By Contac t Referred To Contact CT IMAGING Diagnoses Malignant neoplasm of unspecified part of unspecified bronchus or lung (HCC) Procedures CT CHEST WO IVCON DIAGNOSTIC COMPUTED TOMOGRAPHY THORAX W/O CNTRST Ja Becker MD [address] [place] [place] [address] [place] [address] Referral ID Status Reason Start Date Expiration Date V isits Requested Visits Authorized [id number] Closed Auto-Generate d Referral 08/06/2023 09/04/2024 1 1 Referral ID Status Reason Start Date Expiration Date V isits Requested Visits Authorized [id number] Closed Auto-Generate d Referral 09/03/2023 08/07/2024 1 1 Referral ID Status Reason Start Date Expiration Date V isits Requested Visits Authorized [id number] Closed Auto-Generate d Referral 04/02/2023 05/01/2024 1 1 Referral ID Status Reason Start Date Expiration Date V isits Requested Visits Authorized [id number] Closed Auto-Generate d Referral 01/01/2023 01/31/2024 1 1 Referral ID Status Reason Start Date Expiration Date V isits Requested Visits Authorized [id number] Closed Auto-Generate d Referral 09/11/2022 10/11/2023 1 1 Referral ID Status Reason Start Date Expiration Date V isits Requested Visits Authorized [id number] Closed Auto-Generate d Referral 03/30/2022 02/11/2023 1 1 Specialty Diagnoses / Procedures Referred By Oz mack Referred To Contact CT IMAGING Diagnoses Lung nodules Procedures CT CHEST W IVCON CAT SCAN OF CHEST CONTRAST Ja Becker MD [address] [place] [address] [place] [address] [place] [address] Referral ID Status Reason Start Date Expiration Date V isits Requested Visits Authorized [id number] Closed Auto-Generate d Referral 07/07/2021 08/06/2022 1 1 Referral ID Status Reason Start Date Expiration Date V isits Requested Visits Authorized [id number] Closed Auto-Generate d Referral 04/18/2024 02/15/2025 1 [...] or prosecute any alcohol or drug abuse patient.[facility] the event this information is protected by the Federal Confidentiality of Alcohol and Drug Abuse Patient Records regulations: The Federal rules restrict any use of the information to criminally investigate or prosecute any alcohol or drug abuse patient.[facility] the event this information is protected by the Federal Confidentiality of Alcohol and Drug Abuse Patient Records regulations: The Federal rules restrict any use of the information to criminally investigate or prosecute any alcohol or drug abuse patient.[facility] the event this information is protected by the Federal Confidentiality of Alcohol and Drug Abuse Patient Records regulations: The Federal rules restrict any use of the information to criminally investigate or prosecute any alcohol or drug abuse patient.[facility] the event this information is protected by the Federal Confidentiality of Alcohol and Drug Abuse Patient Records regulations: The Federal rules restrict any use of the information to criminally investigate or prosecute any alcohol or drug abuse patient.[facility] the event this information is protected by the Federal Confidentiality of Alcohol and Drug Abuse Patient Records regulations: The Federal rules restrict any use of the information to criminally investigate or prosecute any alcohol or drug abuse patient.[facility] the event this information is protected by the Federal Confidentiality of Alcohol and Drug Abuse Patient Records regulations: The Federal rules restrict any use of the information to criminally investigate or prosecute any alcohol or drug abuse patient.[facility] the event this information is protected by the Federal Confidentiality of Alcohol and Drug Abuse Patient Records regulations: The Federal rules restrict any use of the information to criminally investigate or prosecute any alcohol or drug abuse patient.[facility] the event this information is protected by the Federal Confidentiality of Alcohol and Drug Abuse Patient Records regulations: The Federal rules restrict any use of the information to criminally investigate or prosecute any alcohol or drug abuse patient.[facility] the event this information is protected by the Federal Confidentiality of Alcohol and Drug Abuse Patient Records regulations: The Federal rules restrict any use of the information to criminally investigate or prosecute any alcohol or drug abuse patient.[facility] the event this information is protected by the Federal Confidentiality of Alcohol and Drug Abuse Patient Records regulations: The Federal rules restrict any use of the information to criminally investigate or prosecute any alcohol or drug abuse patient.[facility] the event this information is protected by [...] or prosecute any alcohol or drug abuse patient.[facility] the event this information is protected by the Federal Confidentiality of Alcohol and Drug Abuse Patient Records regulations: The Federal rules restrict any use of the information to criminally investigate or prosecute any alcohol or drug abuse patient.[facility] the event this information is protected by the Federal Confidentiality of Alcohol and Drug Abuse Patient Records regulations: The Federal rules restrict any use of the information to criminally investigate or prosecute any alcohol or drug abuse patient.[facility] the event this information is protected by the Federal Confidentiality of Alcohol and Drug Abuse Patient Records regulations: The Federal rules restrict any use of the information to criminally investigate or prosecute any alcohol or drug abuse patient.[facility] the event this information is protected by the Federal Confidentiality of Alcohol and Drug Abuse Patient Records regulations: The Federal rules restrict any use of the information to criminally investigate or prosecute any alcohol or drug abuse patient.[facility] the event this information is protected by the Federal Confidentiality of Alcohol and Drug Abuse Patient Records regulations: The Federal rules restrict any use of the information to criminally investigate or prosecute any alcohol or drug abuse patient.[facility] the event this information is protected by the Federal Confidentiality of Alcohol and Drug Abuse Patient Records regulations: The Federal rules restrict any use of the information to criminally investigate or prosecute any alcohol or drug abuse patient.[facility] the event this information is protected by the Federal Confidentiality of Alcohol and Drug Abuse Patient Records regulations: The Federal rules restrict any use of the information to criminally investigate or prosecute any alcohol or drug abuse patient.[facility]In the event this information is protected by the Federal Confidentiality of Alcohol and Drug Abuse Patient Records regulations: The Federal rules restrict any use of the information to criminally investigate or prosecute any alcohol or drug abuse patient.[facility]In the event this information is protected by the Federal Confidentiality of Alcohol and Drug Abuse Patient Records regulations: The Federal rules restrict any use of the information to criminally investigate or prosecute any alcohol or drug abuse patient.[facility]In the event this information is protected by the Federal Confidentiality of Alcohol and Drug Abuse Patient Records regulations: The Federal rules restrict any use of the information to criminally investigate or prosecute any alcohol or drug abuse patient.[facility]In the event this information is protected by the Federal Confidentiality of Alcohol and Drug Abuse Patient Records regulations: The Federal rules restrict any use of the information to criminally investigate or prosecute any alcohol or drug abuse patient.[facility]In the event this information is protected by the Federal Confidentiality of Alcohol and Drug Abuse Patient Records regulations: The Federal rules restrict any use of the information to criminally investigate or prosecute any alcohol or drug abuse patient.[facility]In the event this information is protected by the Federal Confidentiality of Alcohol and Drug Abuse Patient Records regulations: The Federal rules restrict any use of the information to criminally investigate or prosecute any alcohol or drug abuse patient.[facility]In the event this information is protected by the Federal Confidentiality of Alcohol and Drug Abuse Patient Records regulations: The Federal rules restrict any use of the information to criminally investigate or prosecute any alcohol or drug abuse patient.[facility]In the event this information is protected by the Federal Confidentiality of Alcohol and Drug Abuse Patient Records regulations: The Federal rules restrict any use of the information to criminally investigate or prosecute any alcohol or drug abuse patient.[facility]In the event this information is protected by the Federal Confidentiality of Alcohol and Drug Abuse Patient Records regulations: The Federal rules restrict any use of the information to criminally investigate or prosecute any alcohol or drug abuse patient.[facility]In the event this information is protected by the Federal Confidentiality of Alcohol and Drug Abuse Patient Records regulations: The Federal rules restrict any use of the information to criminally investigate or prosecute any alcohol or drug abuse patient.[facility]In the event this information is protected by the Federal Confidentiality of Alcohol and Drug Abuse Patient Records regulations: The Federal rules restrict any use of the information to criminally investigate or prosecute any alcohol or drug abuse patient.[facility]In the event this information is protected by the Federal Confidentiality of Alcohol and Drug Abuse Patient Records regulations: The Federal rules restrict any use of the information to criminally investigate or prosecute any alcohol or drug abuse patient.[facility]In the event this information is protected by the Federal Confidentiality of Alcohol and Drug Abuse Patient Records regulations: The Federal rules restrict any use of the information to criminally investigate or prosecute any alcohol or drug abuse patient.[facility]In the event this information is protected by the Federal Confidentiality of Alcohol and Drug Abuse Patient Records regulations: The Federal rules restrict any use of the information to criminally investigate or prosecute any alcohol or drug abuse patient.[facility]In the event this information is protected by the Federal Confidentiality of Alcohol and Drug Abuse Patient Records regulations: The Federal rules restrict any use of the information to criminally investigate or prosecute any alcohol or drug abuse patient.[facility]In the event this information is protected by the Federal Confidentiality of Alcohol and Drug Abuse Patient Records regulations: The Federal rules restrict any use of the information to criminally investigate or prosecute any alcohol or drug abuse patient.[facility]In the event this information is protected by the Federal Confidentiality of Alcohol and Drug Abuse Patient Records regulations: The Federal rules restrict any use of the information to criminally investigate or prosecute any alcohol or drug abuse patient.[facility]In the event this information is protected by the Federal Confidentiality of Alcohol and Drug Abuse Patient Records regulations: The Federal rules restrict any use of the information to criminally investigate or prosecute any alcohol or drug abuse patient.[facility]In the event this information is protected by the Federal Confidentiality of Alcohol and Drug Abuse Patient Records regulations: The Federal rules restrict any use of the information to criminally investigate or prosecute any alcohol or drug abuse patient.[facility]In the event this information is protected by the Federal Confidentiality of Alcohol and Drug Abuse Patient Records regulations: The Federal rules restrict any use of the information to criminally investigate or prosecute any alcohol or drug abuse patient.[facility]In the event this information is protected by the Federal Confidentiality of Alcohol and Drug Abuse Patient Records regulations: The Federal rules restrict any use of the information to criminally investigate or prosecute any alcohol or drug abuse patient.[facility]In the event this information is protected by the Federal Confidentiality of Alcohol and Drug Abuse Patient Records regulations: The Federal rules restrict any use of the information to criminally investigate or prosecute any alcohol or drug abuse patient.[facility]In the event this information is protected by the Federal Confidentiality of Alcohol and Drug Abuse Patient Records regulations: The Federal rules restrict any use of the information to criminally investigate or prosecute any alcohol or drug abuse patient.[facility]In the event this information is protected by the Federal Confidentiality of Alcohol and Drug Abuse Patient Records regulations: The Federal rules restrict any use of the information to criminally investigate or prosecute any alcohol or drug abuse patient.[facility]In the event this information is protected by the Federal Confidentiality of Alcohol and Drug Abuse Patient Records regulations: The Federal rules restrict any use of the information to criminally investigate or prosecute any alcohol or drug abuse patient.[facility]In the event this information is protected by the Federal Confidentiality of Alcohol and Drug Abuse Patient Records regulations: The Federal rules restrict any use of the information to criminally investigate or prosecute any alcohol or drug abuse patient.[facility]In the event this information is protected by the Federal Confidentiality of Alcohol and Drug Abuse Patient Records regulations: The Federal rules restrict any use of the information to criminally investigate or prosecute any alcohol or drug abuse patient.[facility]In the event this information is protected by the Federal Confidentiality of Alcohol and Drug Abuse Patient Records regulations: The Federal rules restrict any use of the information to criminally investigate or prosecute any alcohol or drug abuse patient.[facility]In the event this information is protected by the Federal Confidentiality of Alcohol and Drug Abuse Patient Records regulations: The Federal rules restrict any use of the information to criminally investigate or prosecute any alcohol or drug abuse patient.[facility]In the event this information is protected by the Federal Confidentiality of Alcohol and Drug Abuse Patient Records regulations: The Federal rules restrict any use of the information to criminally investigate or prosecute any alcohol or drug abuse patient.[facility]In the event this information is protected by the Federal Confidentiality of Alcohol and Drug Abuse Patient Records regulations: The Federal rules restrict any use of the information to criminally investigate or prosecute any alcohol or drug abuse patient.[facility]In the event this information is protected by the Federal Confidentiality of Alcohol and Drug Abuse Patient Records regulations: The Federal rules restrict any use of the information to criminally investigate or prosecute any alcohol or drug abuse patient.[facility]In the event this information is protected by the Federal Confidentiality of Alcohol and Drug Abuse Patient Records regulations: The Federal rules restrict any use of the information to criminally investigate or prosecute any alcohol or drug abuse patient.[facility]In the event this information is protected by the Federal Confidentiality of Alcohol and Drug Abuse Patient Records regulations: The Federal rules restrict any use of the information to criminally investigate or prosecute any alcohol or drug abuse patient.[facility]In the event this information is protected by the Federal Confidentiality of Alcohol and Drug Abuse Patient Records regulations: The Federal rules restrict any use of the information to criminally investigate or prosecute any alcohol or drug abuse patient.[facility]In the event this information is protected by the Federal Confidentiality of Alcohol and Drug Abuse Patient Records regulations: The Federal rules restrict any use of the information to criminally investigate or prosecute any alcohol or drug abuse patient.[facility]In the event this information is protected by the Federal Confidentiality of Alcohol and Drug Abuse Patient Records regulations: The Federal rules restrict any use of the information to criminally investigate or prosecute any alcohol or drug abuse patient.[facility]In the event this information is protected by the Federal Confidentiality of Alcohol and Drug Abuse Patient Records regulations: The Federal rules restrict any use of the information to criminally investigate or prosecute any alcohol or drug abuse patient.[facility]In the event this information is protected by the Federal Confidentiality of Alcohol and Drug Abuse Patient Records regulations: The Federal rules restrict any use of the information to criminally investigate or prosecute any alcohol or drug abuse patient.[facility] the event this information is protected by the Federal Confidentiality of Alcohol and Drug Abuse Patient Records regulations: The Federal rules restrict any use of the information to criminally investigate or prosecute any alcohol or drug abuse patient.[facility]In the event this information is protected by the Federal Confidentiality of Alcohol and Drug Abuse Patient Records regulations: The Federal rules restrict any use of the information to criminally investigate or prosecute any alcohol or drug abuse patient.[facility] SouthIn the event this information is protected by [...] or prosecute any alcohol or drug abuse patient.[facility]In the event this information is protected by the Federal Confidentiality of Alcohol and Drug Abuse Patient Records regulations: The Federal rules restrict any use of the information to criminally investigate or prosecute any alcohol or drug abuse patient.[facility]In the event this information is protected by the Federal Confidentiality of Alcohol and Drug Abuse Patient Records regulations: The Federal rules restrict any use of the information to criminally investigate or prosecute any alcohol or drug abuse patient.[facility]In the event this information is protected by the Federal Confidentiality of Alcohol and Drug Abuse Patient Records regulations: The Federal rules restrict any use of the information to criminally investigate or prosecute any alcohol or drug abuse patient.[facility]In the event this information is protected by the Federal Confidentiality of Alcohol and Drug Abuse Patient Records regulations: The Federal rules restrict any use of the information to criminally investigate or prosecute any alcohol or drug abuse patient.[facility]In the event this information is protected by the Federal Confidentiality of Alcohol and Drug Abuse Patient Records regulations: The Federal rules restrict any use of the information to criminally investigate or prosecute any alcohol or drug abuse patient.[facility]In the event this information is protected by the Federal Confidentiality of Alcohol and Drug Abuse Patient Records regulations: The Federal rules restrict any use of the information to criminally investigate or prosecute any alcohol or drug abuse patient.[facility]In the event this information is protected by the Federal Confidentiality of Alcohol and Drug Abuse Patient Records regulations: The Federal rules restrict any use of the information to criminally investigate or prosecute any alcohol or drug abuse patient.[facility]In the event this information is protected by the Federal Confidentiality of Alcohol and Drug Abuse Patient Records regulations: The Federal rules restrict any use of the information to criminally investigate or prosecute any alcohol or drug abuse patient.[facility]In the event this information is protected by the Federal Confidentiality of Alcohol and Drug Abuse Patient Records regulations: The Federal rules restrict any use of the information to criminally investigate or prosecute any alcohol or drug abuse patient.[facility]In the event this information is protected by the Federal Confidentiality of Alcohol and Drug Abuse Patient Records regulations: The Federal rules restrict any use of the information to criminally investigate or prosecute any alcohol or drug abuse patient.[facility]In the event this information is protected by the Federal Confidentiality of Alcohol and Drug Abuse Patient Records regulations: The Federal rules restrict any use of the information to criminally investigate or prosecute any alcohol or drug abuse patient.[facility]In the event this information is protected by the Federal Confidentiality of Alcohol and Drug Abuse Patient Records regulations: The Federal rules restrict any use of the information to criminally investigate or prosecute any alcohol or drug abuse patient.[facility]In the event this information is protected by the Federal Confidentiality of Alcohol and Drug Abuse Patient Records regulations: The Federal rules restrict any use of the information to criminally investigate or prosecute any alcohol or drug abuse patient.[facility]In the event this information is protected by the Federal Confidentiality of Alcohol and Drug Abuse Patient Records regulations: The Federal rules restrict any use of the information to criminally investigate or prosecute any alcohol or drug abuse patient.[facility]In the event this information is protected by the Federal Confidentiality of Alcohol and Drug Abuse Patient Records regulations: The Federal rules restrict any use of the information to criminally investigate or prosecute any alcohol or drug abuse patient.[facility]In the event this information is protected by the Federal Confidentiality of Alcohol and Drug Abuse Patient Records regulations: The Federal rules restrict any use of the information to criminally investigate or prosecute any alcohol or drug abuse patient.[facility]In the event this information is protected by the Federal Confidentiality of Alcohol and Drug Abuse Patient Records regulations: The Federal rules restrict any use of the information to criminally investigate or prosecute any alcohol or drug abuse patient.[facility]In the event this information is protected by the Federal Confidentiality of Alcohol and Drug Abuse Patient Records regulations: The Federal rules restrict any use of the information to criminally investigate or prosecute any alcohol or drug abuse patient.[facility]In the event this information is protected by the Federal Confidentiality of Alcohol and Drug Abuse Patient Records regulations: The Federal rules restrict any use of the information to criminally investigate or prosecute any alcohol or drug abuse patient.[facility]In the event this information is protected by the Federal Confidentiality of Alcohol and Drug Abuse Patient Records regulations: The Federal rules restrict any use of the information to criminally investigate or prosecute any alcohol or drug abuse patient.[facility]In the event this information is protected by the Federal Confidentiality of Alcohol and Drug Abuse Patient Records regulations: The Federal rules restrict any use of the information to criminally investigate or prosecute any alcohol or drug abuse patient.[facility]In the event this information is protected by the Federal Confidentiality of Alcohol and Drug Abuse Patient Records regulations: The Federal rules restrict any use of the information to criminally investigate or prosecute any alcohol or drug abuse patient.[facility]In the event this information is protected by the Federal Confidentiality of Alcohol and Drug Abuse Patient Records regulations: The Federal rules restrict any use of the information to criminally investigate or prosecute any alcohol or drug abuse patient.[facility]In the event this information is protected by the Federal Confidentiality of Alcohol and Drug Abuse Patient Records regulations: The Federal rules restrict any use of the information to criminally investigate or prosecute any alcohol or drug abuse patient.[facility]In the event this information is protected by the Federal Confidentiality of Alcohol and Drug Abuse Patient Records regulations: The Federal rules restrict any use of the information to criminally investigate or prosecute any alcohol or drug abuse patient.[facility]In the event this information is protected by the Federal Confidentiality of Alcohol and Drug Abuse Patient Records regulations: The Federal rules restrict any use of the information to criminally investigate or prosecute any alcohol or drug abuse patient.[facility]In the event this information is protected by the Federal Confidentiality of Alcohol and Drug Abuse Patient Records regulations: The Federal rules restrict any use of the information to criminally investigate or prosecute any alcohol or drug abuse patient.[facility]In the event this information is protected by the Federal Confidentiality of Alcohol and Drug Abuse Patient Records regulations: The Federal rules restrict any use of the information to criminally investigate or prosecute any alcohol or drug abuse patient.[facility]In the event this information is protected by the Federal Confidentiality of Alcohol and Drug Abuse Patient Records regulations: The Federal rules restrict any use of the information to criminally investigate or prosecute any alcohol or drug abuse patient.[facility]In the event this information is protected by the Federal Confidentiality of Alcohol and Drug Abuse Patient Records regulations: The Federal rules restrict any use of the information to criminally investigate or prosecute any alcohol or drug abuse patient.[facility]In the event this information is protected by the Federal Confidentiality of Alcohol and Drug Abuse Patient Records regulations: The Federal rules restrict any use of the information to criminally investigate or prosecute any alcohol or drug abuse patient.[facility]In the event this information is protected by the Federal Confidentiality of Alcohol and Drug Abuse Patient Records regulations: The Federal rules restrict any use of the information to criminally investigate or prosecute any alcohol or drug abuse patient.[facility]In the event this information is protected by the Federal Confidentiality of Alcohol and Drug Abuse Patient Records regulations: The Federal rules restrict any use of the information to criminally investigate or prosecute any alcohol or drug abuse patient.[facility]In the event this information is protected by the Federal Confidentiality of Alcohol and Drug Abuse Patient Records regulations: The Federal rules restrict any use of the information to criminally investigate or prosecute any alcohol or drug abuse patient.[facility]In the event this information is protected by the Federal Confidentiality of Alcohol and Drug Abuse Patient Records regulations: The Federal rules restrict any use of the information to criminally investigate or prosecute any alcohol or drug abuse patient.[facility]In the event this information is protected by the Federal Confidentiality of Alcohol and Drug Abuse Patient Records regulations: The Federal rules restrict any use of the information to criminally investigate or prosecute any alcohol or drug abuse patient.[facility]In the event this information is protected by the Federal Confidentiality of Alcohol and Drug Abuse Patient Records regulations: The Federal rules restrict any use of the information to criminally investigate or prosecute any alcohol or drug abuse patient.[facility]In the event this information is protected by the Federal Confidentiality of Alcohol and Drug Abuse Patient Records regulations: The Federal rules restrict any use of the information to criminally investigate or prosecute any alcohol or drug abuse patient.[facility]In the event this information is protected by the Federal Confidentiality of Alcohol and Drug Abuse Patient Records regulations: The Federal rules restrict any use of the information to criminally investigate or prosecute any alcohol or drug abuse patient.[facility] [facility] the event this information is protected by the Federal Confidentiality of Alcohol and Drug Abuse Patient Records regulations: The Federal rules restrict any use of the information to criminally investigate or prosecute any alcohol or drug abuse patient.[facility] the event this information is protected by the Federal Confidentiality of Alcohol and Drug Abuse Patient Records regulations: The Federal rules restrict any use of the information to criminally investigate or prosecute any alcohol or drug abuse patient.[facility]In the event this information is protected by the Federal Confidentiality of Alcohol and Drug Abuse Patient Records regulations: The Federal rules restrict any use of the information to criminally investigate or prosecute any alcohol or drug abuse patient.[facility]In the event this information is protected by the Federal Confidentiality of Alcohol and Drug Abuse Patient Records regulations: The Federal rules restrict any use of the information to criminally investigate or prosecute any alcohol or drug abuse patient.[facility]In the event this information is protected by the Federal Confidentiality of Alcohol and Drug Abuse Patient Records regulations: The Federal rules restrict any use of the information to criminally investigate or prosecute any alcohol or drug abuse patient.[facility]In the event this information is protected by the Federal Confidentiality of Alcohol and Drug Abuse Patient Records regulations: The Federal rules restrict any use of the information to criminally investigate or prosecute any alcohol or drug abuse patient.[facility]In the event this information is protected by the Federal Confidentiality of Alcohol and Drug Abuse Patient Records regulations: The Federal rules restrict any use of the information to criminally investigate or prosecute any alcohol or drug abuse patient.[facility] the event this information is protected by the Federal Confidentiality of Alcohol and Drug Abuse Patient Records regulations: The Federal rules restrict any use of the information to criminally investigate or prosecute any alcohol or drug abuse patient.[facility]In the event this information is protected by the Federal Confidentiality of Alcohol and Drug Abuse Patient Records regulations: The Federal rules restrict any use of the information to criminally investigate or prosecute any alcohol or drug abuse patient.[facility] SouthIn the event this information is protected by [...] or prosecute any alcohol or drug abuse patient.[facility]In the event this information is protected by the Federal Confidentiality of Alcohol and Drug Abuse Patient Records regulations: The Federal rules restrict any use of the information to criminally investigate or prosecute any alcohol or drug abuse patient.[facility]In the event this information is protected by the Federal Confidentiality of Alcohol and Drug Abuse Patient Records regulations: The Federal rules restrict any use of the information to criminally investigate or prosecute any alcohol or drug abuse patient.[facility]In the event this information is protected by the Federal Confidentiality of Alcohol and Drug Abuse Patient Records regulations: The Federal rules restrict any use of the information to criminally investigate or prosecute any alcohol or drug abuse patient.[facility]In the event this information is protected by the Federal Confidentiality of Alcohol and Drug Abuse Patient Records regulations: The Federal rules restrict any use of the information to criminally investigate or prosecute any alcohol or drug abuse patient.[facility]In the event this information is protected by the Federal Confidentiality of Alcohol and Drug Abuse Patient Records regulations: The Federal rules restrict any use of the information to criminally investigate or prosecute any alcohol or drug abuse patient.[facility]In the event this information is protected by the Federal Confidentiality of Alcohol and Drug Abuse Patient Records regulations: The Federal rules restrict any use of the information to criminally investigate or prosecute any alcohol or drug abuse patient.[facility]In the event this information is protected by the Federal Confidentiality of Alcohol and Drug Abuse Patient Records regulations: The Federal rules restrict any use of the information to criminally investigate or prosecute any alcohol or drug abuse patient.[facility]In the event this information is protected by the Federal Confidentiality of Alcohol and Drug Abuse Patient Records regulations: The Federal rules restrict any use of the information to criminally investigate or prosecute any alcohol or drug abuse patient.[facility]In the event this information is protected by the Federal Confidentiality of Alcohol and Drug Abuse Patient Records regulations: The Federal rules restrict any use of the information to criminally investigate or prosecute any alcohol or drug abuse patient.[facility]In the event this information is protected by the Federal Confidentiality of Alcohol and Drug Abuse Patient Records regulations: The Federal rules restrict any use of the information to criminally investigate or prosecute any alcohol or drug abuse patient.[facility]In the event this information is protected by the Federal Confidentiality of Alcohol and Drug Abuse Patient Records regulations: The Federal rules restrict any use of the information to criminally investigate or prosecute any alcohol or drug abuse patient.[facility]In the event this information is protected by the Federal Confidentiality of Alcohol and Drug Abuse Patient Records regulations: The Federal rules restrict any use of the information to criminally investigate or prosecute any alcohol or drug abuse patient.[facility]In the event this information is protected by the Federal Confidentiality of Alcohol and Drug Abuse Patient Records regulations: The Federal rules restrict any use of the information to criminally investigate or prosecute any alcohol or drug abuse patient.[facility]In the event this information is protected by the Federal Confidentiality of Alcohol and Drug Abuse Patient Records regulations: The Federal rules restrict any use of the information to criminally investigate or prosecute any alcohol or drug abuse patient.[facility]In the event this information is protected by the Federal Confidentiality of Alcohol and Drug Abuse Patient Records regulations: The Federal rules restrict any use of the information to criminally investigate or prosecute any alcohol or drug abuse patient.[facility]In the event this information is protected by the Federal Confidentiality of Alcohol and Drug Abuse Patient Records regulations: The Federal rules restrict any use of the information to criminally investigate or prosecute any alcohol or drug abuse patient.[facility]In the event this information is protected by the Federal Confidentiality of Alcohol and Drug Abuse Patient Records regulations: The Federal rules restrict any use of the information to criminally investigate or prosecute any alcohol or drug abuse patient.[facility]In the event this information is protected by the Federal Confidentiality of Alcohol and Drug Abuse Patient Records regulations: The Federal rules restrict any use of the information to criminally investigate or prosecute any alcohol or drug abuse patient.[facility]In the event this information is protected by the Federal Confidentiality of Alcohol and Drug Abuse Patient Records regulations: The Federal rules restrict any use of the information to criminally investigate or prosecute any alcohol or drug abuse patient.[facility]In the event this information is protected by the Federal Confidentiality of Alcohol and Drug Abuse Patient Records regulations: The Federal rules restrict any use of the information to criminally investigate or prosecute any alcohol or drug abuse patient.[facility]In the event this information is protected by the Federal Confidentiality of Alcohol and Drug Abuse Patient Records regulations: The Federal rules restrict any use of the information to criminally investigate or prosecute any alcohol or drug abuse patient.[facility]In the event this information is protected by the Federal Confidentiality of Alcohol and Drug Abuse Patient Records regulations: The Federal rules restrict any use of the information to criminally investigate or prosecute any alcohol or drug abuse patient.[facility]In the event this information is protected by the Federal Confidentiality of Alcohol and Drug Abuse Patient Records regulations: The Federal rules restrict any use of the information to criminally investigate or prosecute any alcohol or drug abuse patient.[facility]In the event this information is protected by the Federal Confidentiality of Alcohol and Drug Abuse Patient Records regulations: The Federal rules restrict any use of the information to criminally investigate or prosecute any alcohol or drug abuse patient.[facility]In the event this information is protected by the Federal Confidentiality of Alcohol and Drug Abuse Patient Records regulations: The Federal rules restrict any use of the information to criminally investigate or prosecute any alcohol or drug abuse patient.[facility]In the event this information is protected by the Federal Confidentiality of Alcohol and Drug Abuse Patient Records regulations: The Federal rules restrict any use of the information to criminally investigate or prosecute any alcohol or drug abuse patient.[facility]In the event this information is protected by the Federal Confidentiality of Alcohol and Drug Abuse Patient Records regulations: The Federal rules restrict any use of the information to criminally investigate or prosecute any alcohol or drug abuse patient.[facility]In the event this information is protected by the Federal Confidentiality of Alcohol and Drug Abuse Patient Records regulations: The Federal rules restrict any use of the information to criminally investigate or prosecute any alcohol or drug abuse patient.[facility]In the event this information is protected by the Federal Confidentiality of Alcohol and Drug Abuse Patient Records regulations: The Federal rules restrict any use of the information to criminally investigate or prosecute any alcohol or drug abuse patient.[facility]In the event this information is protected by the Federal Confidentiality of Alcohol and Drug Abuse Patient Records regulations: The Federal rules restrict any use of the information to criminally investigate or prosecute any alcohol or drug abuse patient.[facility]In the event this information is protected by the Federal Confidentiality of Alcohol and Drug Abuse Patient Records regulations: The Federal rules restrict any use of the information to criminally investigate or prosecute any alcohol or drug abuse patient.[facility]In the event this information is protected by the Federal Confidentiality of Alcohol and Drug Abuse Patient Records regulations: The Federal rules restrict any use of the information to criminally investigate or prosecute any alcohol or drug abuse patient.[facility]In the event this information is protected by the Federal Confidentiality of Alcohol and Drug Abuse Patient Records regulations: The Federal rules restrict any use of the information to criminally investigate or prosecute any alcohol or drug abuse patient.[facility]In the event this information is protected by the Federal Confidentiality of Alcohol and Drug Abuse Patient Records regulations: The Federal rules restrict any use of the information to criminally investigate or prosecute any alcohol or drug abuse patient.[facility]In the event this information is protected by the Federal Confidentiality of Alcohol and Drug Abuse Patient Records regulations: The Federal rules restrict any use of the information to criminally investigate or prosecute any alcohol or drug abuse patient.[facility]In the event this information is protected by the Federal Confidentiality of Alcohol and Drug Abuse Patient Records regulations: The Federal rules restrict any use of the information to criminally investigate or prosecute any alcohol or drug abuse patient.[facility]In the event this information is protected by the Federal Confidentiality of Alcohol and Drug Abuse Patient Records regulations: The Federal rules restrict any use of the information to criminally investigate or prosecute any alcohol or drug abuse patient.[facility]In the event this information is protected by the Federal Confidentiality of Alcohol and Drug Abuse Patient Records regulations: The Federal rules restrict any use of the information to criminally investigate or prosecute any alcohol or drug abuse patient.[facility]In the event this information is protected by the Federal Confidentiality of Alcohol and Drug Abuse Patient Records regulations: The Federal rules restrict any use of the information to criminally investigate or prosecute any alcohol or drug abuse patient.[facility]In the event this information is protected by the Federal Confidentiality of Alcohol and Drug Abuse Patient Records regulations: The Federal rules restrict any use of the information to criminally investigate or prosecute any alcohol or drug abuse patient.[facility]In the event this information is protected by the Federal Confidentiality of Alcohol and Drug Abuse Patient Records regulations: The Federal rules restrict any use of the information to criminally investigate or prosecute any alcohol or drug abuse patient.[facility] Reason for Visit (unrecogniz ed section and content) Reason Onset Date Comments Refill Request 10/03/2021 Reason Comments Results Specialty Diagnoses / Procedures Referred By Contac t Referred To Contact Diagnoses Multiple myeloma, remission status unspecified (HCC) Ja Becker MD [address] [place] [address] [place] [address] Renard Treat [address] [place] [address] Referral ID Status Reason Start Date Expiration Date V isits Requested Visits Authorized [id number] Authorized 04/23/2020 07/22/2020 1 1 Reason Comments Multiple Myeloma follow up Neoplasm of lung Reason Comments Refill Request Reason Onset Date Comments Refill Request 11/04/2021 Reason Onset Date Comments Refill Request 11/07/2021 Reason Onset Date Comments Refill Request 12/20/2021 Specialty Diagnoses / Procedures [facility] Referred To Contact Diagnoses Multiple myeloma, remission status unspecified (HCC) Procedures pamidronate 30 mg/10 mL (3 mg/mL) Soln 10 mL Vial Ja Becker MD [address] [place] [address] [place] [address] Renard Treat [address] [place] [address] Referral ID Status Reason Start Date Expiration Date V isits Requested Visits Authorized [id number] Authorized 04/23/2020 10/06/2021 1 1 Reason Comments [...] Reason Onset Date Comments Refill Request 06/16/2022 [place] Reason Comments Care Coordination Treatment Planning Reason Onset Date Comments Simulation Request Form 06/22/2022 Reason Comments Lung Cancer Treatment visit Specialty Diagnoses / Procedures Referred By [facility] Referred To Contact Diagnoses Malignant neoplasm of hilus of lung, unspecified laterality (HCC) Ja Becker MD [address] [place] [address] [place] [address] Renard Nat [place] [address] [place] [address] Referral ID Status Reason Start Date Expiration Date V isits Requested Visits Authorized [id number] Authorized 05/03/2022 08/01/2022 99 99 Reason Comments Care Coordination C1D1 Post Treatment Call Reason Comments Multiple Myeloma Reason Comments Radiotherapy On-treatment Visit Reason Onset Date Comments Refill Request 07/18/2022 Multiple Meds Reason Comments Lung Cancer Treatment visit/port draw Reason Comments Lung Cancer 1 week follow up Reason Comments Lung Cancer Reason Comments Wheezing Cough Breathing Problem Reason Onset Date Comments Refill Request 08/22/2022 [place] & Diazepam Reason Comments Lung Cancer Reason Comments Care Coordination Treatment Education Reason Onset Date Comments Refill Request 09/27/2022 [place] Reason Comments Care Coordination Emergency Room Call Back Reason Onset Date Comments Refill Request 10/09/2022 Reason Comments Care Coordination Clinical update Reason Onset Date Comments Refill Request 12/08/2022 Klonopin Specialty Diagnoses / Procedures Referred By Contac t Referred To Contact Hematology / HEMATOLOGY/ONCOLOGY Diagnoses 2 week follow up port lab - no treatment Procedures LAB/PORT Ja Becker MD [address] [place] [address] [address] [place] [address] [place] [address] Referral ID Status Reason Start Date Expiration Date V isits Requested Visits Authorized [id number] Authorized 10/23/2022 07/01/2023 99 99 Reason Onset Date Comments Refill Request 12/26/2022 [place] Refill Request 12/26/2022 Reason Onset Date Comments Refill Request 02/05/2023 Reason Comments Care Coordination CBC Results; Transfu ishmael Reason Onset Date Comments Refill Request 03/08/2023 Reason Onset Date Comments Refill Request 03/12/2023 Reason Comments Established Patient Reason Comments Care Coordination Medication Question Reason Onset Date Comments Refill Request 05/17/2023 Robitussin AC Refill Request 05/17/2023 Reason Onset Date Comments Refill Request 05/17/2023 [place] Reason Onset Date Comments Refill Request 08/13/2023 Reason Onset Date Comments Refill Request 08/22/2023 [place] Reason Onset Date Comments Refill Request 09/19/2023 [place] Reason Comments Established Patient Reason Onset Date Comments Refill Request 10/15/2023 [place] & Klonopin Reason Onset Date Comments Refill Request 12/21/2023 Reason Comments Care Coordination [place] Request Reason Onset Date Comments Refill Request 12/27/2023 Klonopin & Gabap entin Reason Onset Date Comments Refill Request 01/18/2024 [place] Reason Comments Care Coordination Medication Requests Reason Onset Date Comments Refill Request 02/18/2024 [place] Reason Onset Date Comments Refill Request 02/19/2024 Reason Onset Date Comments Refill Request 02/29/[address] Specialty Diagnoses / Procedures [facility] Referred To Contact CT IMAGING Diagnoses Malignant neoplasm of unspecified part of unspecified bronchus or lung (HCC) Procedures CT CHEST WO IVCON DIAGNOSTIC COMPUTED TOMOGRAPHY THORAX W/O CNTRST Ja Becker MD [address] [place] [address] [place] [address] [place] [address] Referral ID Status Reason Start Date Expiration Date V isits Requested Visits Authorized [id number] Closed Auto-Generate d Referral 08/06/2023 09/04/2024 1 1 Reason Comments Radiology NM Specialty Diagnoses / Procedures [facility] Referred To Contact CT IMAGING Diagnoses Malignant neoplasm of unspecified part of unspecified bronchus or lung (HCC) Procedures CT CHEST WO IVCON DIAGNOSTIC COMPUTED TOMOGRAPHY THORAX W/O CNTRST Glenys Kurtz PA-C [address] [place] [address] [place] [address] [place] [address] Referral ID Status Reason Start Date Expiration Date V isits Requested Visits Authorized [id number] Closed Auto-Generate d Referral 09/03/2023 08/07/2024 1 1 Specialty Diagnoses / Procedures [facility] Referred To Contact CT IMAGING Diagnoses Malignant neoplasm of unspecified part of unspecified bronchus or lung (HCC) Procedures CT CHEST WO IVCON DIAGNOSTIC COMPUTED TOMOGRAPHY THORAX W/O CNTRST Amber Rodriguez, S3B MULTI SENSOR OPERATOR.[employer]OUND [employer]ER [address] [place] [address] [place] [address] Referral ID Status Reason Start Date Expiration Date V isits Requested Visits Authorized [id number] Closed Auto-Generate d Referral 04/02/2023 05/01/2024 1 1 Referral ID Status Reason Start Date Expiration Date V isits Requested Visits Authorized [id number] Closed Auto-Generate d Referral 01/01/2023 01/31/2024 1 1 Reason Comments Established Patient Nerve Pain Reason Comments Radio Gen RMP Referral ID Status Reason Start Date Expiration Date V isits Requested Visits Authorized [id number] Closed Auto-Generate d Referral 09/11/2022 10/11/2023 1 1 Reason Onset Date Comments Refill Request 03/25/2024 [place] Reason Comments Orders Referral ID Status Reason Start Date Expiration Date V isits Requested Visits Authorized [id number] Closed Auto-Generate d Referral 03/30/2022 02/11/2023 1 1 Specialty Diagnoses / Procedures Referred By Contac t Referred To Contact Radiation Oncology / RADIATION ONCOLOGY Diagnoses Malignant neoplasm of upper lobe, right bronchus or lung SIM/JENNIFER/lung with IV contrast Procedures SIMULATION ARIA IMRT 30 fractions Marisabel Saunders MD [address] [place] [address] [place] [address] Marisabel Saunders MD [address] [place] [address] [place] [address] Referral ID Status Reason Start Date Expiration Date Visits Re quested Visits Authorized [id number] Closed 06/22/2022 07/01/2022 99 99 Reason Comments Radiology NM Specialty Diagnoses / Procedures Referred By Contac t Referred To Contact MOLECULAR & FUNCTIONAL IMAGING Diagnoses Malignant neoplasm of unspecified part of unspecified bronchus or lung (HCC) Procedures NM PET/CT SKULL-THIGH SUBSEQUENT PET IMAGING CT ATTENUATION SKULL BASE MID-THIGH Ja Becker MD [address] [place] [address] Molecular & Functional Imaging [address] [place], [place] [id number] Referral ID Status Reason Start Date Expiration Date V isits Requested Visits Authorized [id number] Closed Auto-Generate d Referral 04/06/2022 05/06/2023 1 1 Specialty Diagnoses / Procedures Referred By Contac t Referred To Contact CT IMAGING Diagnoses Lung nodules Procedures CT CHEST W IVCON CAT SCAN OF CHEST CONTRAST Ja Becker MD [address] [place] [address] [place] [address] [place] [address] Referral ID Status Reason Start Date Expiration Date V isits Requested Visits Authorized [id number] Closed Auto-Generate d Referral 07/07/2021 08/06/2022 1 1 Referral ID Status Reason Start Date Expiration Date V isits Requested Visits Authorized [id number] Closed Auto-Generate d Referral 04/18/2024 02/15/2025 1 [address] Reason [address] Results Reason Comments Follow-up Specialty Diagnoses / Procedures Referred By Contac t Referred To Contact Diagnoses Multiple myeloma, remission status unspecified (HCC) Multiple myeloma, remission status unspecified (HCC) Procedures pamidronate 30 mg/10 mL (3 mg/mL) Soln 10 mL Vial Ja Becker MD [address] [place] [address] [place] [address] Renard Treat Aria [address] [place] [address] Reason Comments Suspicious Skin Lesion Reason Comments Med Refill Care Teams (unrecognized sec tion and content) Underwater Trapper Relationship Specialty Start Date End Date Prerna Grissom II PCP - General Internal Medicine 05/24/11 Underwater Trapper Relationship Specialty Start Date End Date Prerna Grissom II PCP - General Internal Medicine 05/24/11 Underwater Trapper Relationship Specialty Start Date End Date Prerna Grissom II PCP - General Internal Medicine 05/24/11 Underwater Trapper Relationship Specialty Start Date End Date Prerna Grissom II PCP - General Internal Medicine 05/24/11 Underwater Trapper Relationship Specialty Start Date End Date Prerna Grissom II PCP - General Internal Medicine 05/24/11 Underwater Trapper Relationship Specialty Start Date End Date Prerna Grissom II PCP - General Internal Medicine 05/24/11 Underwater Trapper Relationship Specialty Start Date End Date Prerna Grissom II PCP - General Internal Medicine 05/24/11 Underwater Trapper Relationship Specialty Start Date End Date Prerna Grissom II PCP - General Internal Medicine 05/24/11 Underwater Trapper Relationship Specialty Start Date End Date Prerna Grissom II PCP - General Internal Medicine 05/24/11 Underwater Trapper Relationship Specialty Start Date End Date Prerna Grissom II PCP - General Internal Medicine 05/24/11 Underwater Trapper Relationship Specialty Start Date End Date Prerna Grissom II PCP - General Internal Medicine 05/24/11 Underwater Trapper Relationship Specialty Start Date End Date Prerna Grissom II PCP - General Internal Medicine 05/24/11 Yanira Plasencia LSW Airplane Patroller 02/23/22 Underwater Trapper Relationship Specialty Start Date End Date Prerna Grissom II PCP - General Internal Medicine 05/24/11 Yanira Plasencia LSW Airplane Patroller 02/23/22 Underwater Trapper Relationship Specialty Start Date End Date Prerna Grissom II PCP - General Internal Medicine 05/24/11 Yanira Plasencia LSW Airplane Patroller 02/23/22 Underwater Trapper Relationship Specialty Start Date End Date Prerna Grissom II PCP - General Internal Medicine 05/24/11 Yanira Plasencia LSW Airplane Patroller 02/23/22 Underwater Trapper Relationship Specialty Start Date End Date Prerna Grissom II PCP - General Internal Medicine 05/24/11 Yanira Plasencia, TILTING SAW OPERATOR Airplane Patroller 02/23/22 Underwater Trapper Relationship Specialty Start Date End Date Prerna Grissom II PCP - General Internal Medicine 05/24/11 Yanira Plasencia LSW Airplane Patroller 02/23/22 Underwater Trapper Relationship Specialty Start Date End Date Prerna Grissom II PCP - General Internal Medicine 05/24/11 Yanira Plasencia, TATI Airplane Patroller 02/23/22 Underwater Trapper Relationship Specialty Start Date End Date Prerna Grissom Tamie II PCP - General Internal Medicine 05/24/11 Yanira Plasencia LSW Airplane Patroller 02/23/22 Ja Becker MD [address] [place] [address] Physician Hematology/Oncology 05/03/22 Amber Rodriguez APRN.SOUND CONTROLLER [address] [place] [address] Nurse Practitioner Hematology/Oncology 05/03/22 Rhona Ruiz, ILENE [address] [facility] [address] Specialty Peat Shredder Tender Hematology/Oncology 05/03/22 Underwater Trapper Relationship Specialty Start Date End Date Chelsy Prerna Tamie II PCP - General Internal Medicine 05/24/11 Yanira Plasencia, TILTING SAW OPERATOR Airplane Patroller 02/23/22 Ja Becker MD [address] [facility] [address] Physician Hematology/Oncology 05/03/22 Amber Rodriguez, S3B MULTI SENSOR OPERATOR.SOUND CONTROLLER [address] [place] [address] Nurse Practitioner Hematology/Oncology 05/03/22 Rhona Ruiz, RN [address] [facility] [place] [address] Specialty Peat Shredder Tender Hematology/Oncology 05/03/22 Underwater Trapper Relationship Specialty Start Date End Date Prerna Grissom II PCP - General Internal Medicine 05/24/11 Yanira Plasencia, TILTING SAW OPERATOR Airplane Patroller 02/23/22 Ja Becker MD [address] [facility] [address] Physician Hematology/Oncology 05/03/22 Amber Rodriguez, S3B MULTI SENSOR OPERATOR.SOUND CONTROLLER [address] [place] [place] [address] Nurse Practitioner Hematology/Oncology 05/03/22 Rhona Ruiz, RN [address] [facility] [place] [address] Specialty Peat Shredder Tender Hematology/Oncology 05/03/22 Underwater Trapper Relationship Specialty Start Date End Date Prerna Grissom II PCP - General Internal Medicine 05/24/11 Yanira Plasencia, TILTING SAW OPERATOR Airplane Patroller 02/23/22 Ja Becker MD [address] [facility] [place] [address] Physician Hematology/Oncology 05/03/22 Amber Rodriguez, S3B MULTI SENSOR OPERATOR.SOUND CONTROLLER [address] [place] [place] [address] Nurse Practitioner Hematology/Oncology 05/03/22 Rhona Ruiz, ILENE [address] [facility] [address] [place], [place] [id number] Specialty Peat Shredder Tender Hematology/Oncology 05/03/22 Underwater Trapper Relationship Specialty Start Date End Date Prerna Grissom II PCP - General Internal Medicine 05/24/11 Yanira Plasencia, [facility] Airplane Patroller 02/23/22 Ja Becker MD [address] [facility] [address] [address] [address] [place], [place] [address] Physician Hematology/Oncology 05/03/22 Amber Rodriguez, S3B MULTI SENSOR OPERATOR.SOUND CONTROLLER [address] [facility] [place] [address] Nurse Practitioner Hematology/Oncology 05/03/22 Rhona Ruiz, ILENE [address] [facility] [place] [address] Specialty Peat Shredder Tender Hematology/Oncology 05/03/22 Underwater Trapper Relationship Specialty Start Date End Date Prerna Grissom II PCP - General Internal Medicine 05/24/11 Yanira Plasencia, [facility] Airplane Patroller 02/23/22 Ja Becker MD [address] [facility] [address] [place], [place] [address] Physician Hematology/Oncology 05/03/22 Amber Rodriguez, S3B MULTI SENSOR OPERATOR.SOUND CONTROLLER [address] [facility] [place] [address] Nurse Practitioner Hematology/Oncology 05/03/22 Rhona Ruiz, RN [address] [facility] [place] [address] Specialty Peat Shredder Tender Hematology/Oncology 05/03/22 Underwater Trapper Relationship Specialty Start Date End Date Prerna Grissom II PCP - General Internal Medicine 05/24/11 Yanira Plasencia TILTING SAW OPERATOR Airplane Patroller 02/23/22 Ja Becker MD [address] [facility] [place] [address] Physician Hematology/Oncology 05/03/22 Amber Rodriguez, S3B MULTI SENSOR OPERATOR.SOUND CONTROLLER [address] [facility] [place] [address] Nurse Practitioner Hematology/Oncology 05/03/22 Rhona Ruiz, RN [address] [facility] [address] [place], [place] [address] Specialty Peat Shredder Tender Hematology/Oncology 05/03/22 Underwater Trapper Relationship Specialty Start Date End Date Prerna Grissom II PCP - General Internal Medicine 05/24/11 Yanira Plasencia [facility] Airplane Patroller 02/23/22 Ja Becker MD [address] [facility] [place] [address] Physician Hematology/Oncology 05/03/22 Amber Rodriguez, S3B MULTI SENSOR OPERATOR.SOUND CONTROLLER [address] [facility] [place] [address] Nurse Practitioner Hematology/Oncology 05/03/22 Rhona Ruiz, RN [address] [facility] [place] [address] Specialty Peat Shredder Tender Hematology/Oncology 05/03/22 Underwater Trapper Relationship Specialty Start Date End Date Prerna Grissom II PCP - General Internal Medicine 05/24/11 Yanira Plasencia TILTING SAW OPERATOR Airplane Patroller 02/23/22 Ja Becker MD [address] [facility] [address] [place], [place] [address] Physician Hematology/Oncology 05/03/22 Amber Rodriguez, S3B MULTI SENSOR OPERATOR.SOUND CONTROLLER [address] [facility] [place] [address] Nurse Practitioner Hematology/Oncology 05/03/22 Rhona Ruiz, RN [address] [facility] [address] Specialty Peat Shredder Tender Hematology/Oncology 05/03/22 Underwater Trapper Relationship Specialty Start Date End Date Prerna Grissom II PCP - General Internal Medicine 05/24/11 Yanira Plasencia LSW Airplane Patroller 02/23/22 Ja Becker MD [address] [facility] [place] [address] Physician Hematology/Oncology 05/03/22 Amber Rodriguez, S3B MULTI SENSOR OPERATOR.SOUND CONTROLLER [address] [facility] [place] [address] Nurse Practitioner Hematology/Oncology 05/03/22 Rhona Ruiz, ILENE [address] [facility] [address] [place], [place] [address] Specialty Peat Shredder Tender Hematology/Oncology 05/03/22 Underwater Trapper Relationship Specialty Start Date End Date Prerna Grissom II PCP - General Internal Medicine 05/24/11 Yanira Plasencia LSW Airplane Patroller 02/23/22 Ja Becker MD [address] [facility] [place] [address] Physician Hematology/Oncology 05/03/22 Amber Rodriguez, S3B MULTI SENSOR OPERATOR.SOUND CONTROLLER [address] [facility] [place] [address] Nurse Practitioner Hematology/Oncology 05/03/22 Rhona Ruiz, RN [address] [facility] [place] [address] Specialty Peat Shredder Tender Hematology/Oncology 05/03/22 Underwater Trapper Relationship Specialty Start Date End Date Prerna Grissom II PCP - General Internal Medicine 05/24/11 Yanira Plasencia LSW Airplane Patroller 02/23/22 Ja Becker MD [address] [facility] [address] [place], [place] 25[address] Physician Hematology/Oncology 05/03/22 Amber Rodriguez, S3B MULTI SENSOR OPERATOR.[facility] [address] [place] [address] Nurse Practitioner Hematology/Oncology 05/03/22 Rhona Ruiz, RN [address] [facility] [place] [address] Specialty Peat Shredder Tender Hematology/Oncology 05/03/22 Underwater Trapper Relationship Specialty Start Date End Date Prerna Grissom II PCP - General Internal Medicine 05/24/11 Yanira Plasencia [facility] Airplane Patroller 02/23/22 Ja Becker MD [address] [facility] [place] [address] Physician Hematology/Oncology 05/03/22 Amber Rodriguez, S3B MULTI SENSOR OPERATOR.SOUND CONTROLLER [address] [facility] [place] [address] Nurse Practitioner Hematology/Oncology 05/03/22 Rhona Ruiz, RN [address] [facility] [place] [address] Specialty Peat Shredder Tender Hematology/Oncology 05/03/22 Underwater Trapper Relationship Specialty Start Date End Date Prerna Grissom II PCP - General Internal Medicine 05/24/11 Yanira Plasencia [facility] Airplane Patroller 02/23/22 Ja Becker MD [address] [facility] [address] [address] [place], [place] 3200370 Physician Hematology/Oncology 05/03/22 Amber Rodriguez, S3B MULTI SENSOR OPERATOR.SOUND CONTROLLER [address] [facility] [place] [address] Nurse Practitioner Hematology/Oncology 05/03/22 Rhona Ruiz, RN [address] [facility] [place] [address] Specialty Peat Shredder Tender Hematology/Oncology 05/03/22 Underwater Trapper Relationship Specialty Start Date End Date Prerna Grissom II PCP - General Internal Medicine 05/24/11 Yanira Plasencia [facility] Airplane Patroller 02/23/22 Ja Becker MD [address] [facility] [place] [address] Physician Hematology/Oncology 05/03/22 Amber Rodriguez, S3B MULTI SENSOR OPERATOR.SOUND CONTROLLER [address] [facility] [place] [address] Nurse Practitioner Hematology/Oncology 05/03/22 Rhona Ruiz, ILENE [address] [facility] [place] [address] Specialty Peat Shredder Tender Hematology/Oncology 05/03/22 Underwater Trapper Relationship Specialty Start Date End Date Prerna Grissom II PCP - General Internal Medicine 05/24/11 Yanira Plasencia [facility] Airplane Patroller 02/23/22 Ja Becker MD [address] [facility] [place] [address] Physician Hematology/Oncology 05/03/22 Amber Rodriguez, S3B MULTI SENSOR OPERATOR.SOUND CONTROLLER [address] [place] [place] [address] Nurse Practitioner Hematology/Oncology 05/03/22 Rhona Ruiz, RN [address] [facility] [place] [address] Specialty Peat Shredder Tender Hematology/Oncology 05/03/22 Underwater Trapper Relationship Specialty Start Date End Date Prerna Grissom JUAN RAMON PCP - General Internal Medicine 05/24/11 Yanira Plasencia LSW Airplane Patroller 02/23/22 Ja Becker MD [address] [facility] [facility] [place] [address] Physician Hematology/Oncology 05/03/22 Amber Rodriguez, S3B MULTI SENSOR OPERATOR.SOUND CONTROLLER [address] [facility] [place] [address] Nurse Practitioner Hematology/Oncology 05/03/22 Rhona Ruiz, RN [address] [facility] [place] [address] Specialty Peat Shredder Tender Hematology/Oncology 05/03/22 Underwater Trapper Relationship Specialty Start Date End Date David Grissommili Willett II PCP - General Internal Medicine 05/24/11 Yanira Plasencia LSW Airplane Patroller 02/23/22 Ja Becker MD [address] [facility] [facility] [place] [address] Physician Hematology/Oncology 05/03/22 Amber Rodriguez, S3B MULTI SENSOR OPERATOR.SOUND CONTROLLER [address] [facility] [facility] [place] [address] Nurse Practitioner Hematology/Oncology 05/03/22 Rhona Ruiz, RN [address] [facility] [place] [address] Specialty Peat Shredder Tender Hematology/Oncology 05/03/22 Underwater Trapper Relationship Specialty Start Date End Date Prerna Grissom II PCP - General Internal Medicine 05/24/11 Yanira Plasencia, TILTING SAW OPERATOR Airplane Patroller 02/23/22 Ja Becker MD [address] [facility] [place] [address] Physician Hematology/Oncology 05/03/22 Amber Rodriguez, S3B MULTI SENSOR OPERATOR.SOUND CONTROLLER [address] [facility] [place] [address] Nurse Practitioner Hematology/Oncology 05/03/22 Rhona Ruiz, RN [address] [facility] [place] [address] Specialty Peat Shredder Tender Hematology/Oncology 05/03/22 Underwater Trapper Relationship Specialty Start Date End Date Prerna Grissom II PCP - General Internal Medicine 05/24/11 Yanira Plasencia [facility] Airplane Patroller 02/23/22 Ja Bceker MD [address] [facility] [place] [address] Physician Hematology/Oncology 05/03/22 Amber Rodriguez, S3B MULTI SENSOR OPERATOR.SOUND CONTROLLER [address] [facility] [place] [address] Nurse Practitioner Hematology/Oncology 05/03/22 Rhona Ruiz, RN [address] [facility] [place] [address] Specialty Peat Shredder Tender Hematology/Oncology 05/03/22 Underwater Trapper Relationship Specialty Start Date End Date Prerna Grissom II PCP - General Internal Medicine 05/24/11 Yanira Plasencia, [facility] Airplane Patroller 02/23/22 Ja Becker MD [address] [facility] [address] [place], [place] [address] Physician Hematology/Oncology 05/03/22 Amber Rodriguez, S3B MULTI SENSOR OPERATOR.SOUND CONTROLLER [address] [facility] [place] [address] Nurse Practitioner Hematology/Oncology 05/03/22 Rhona Ruiz, RN [address] [facility] [address] Specialty Peat Shredder Tender Hematology/Oncology 05/03/22 Underwater Trapper Relationship Specialty Start Date End Date Prerna Grissom II PCP - General Internal Medicine 05/24/11 Yanira Plasencia, TILTING SAW OPERATOR Airplane Patroller 02/23/22 Ja Becker MD [address] [facility] [place] [address] Physician Hematology/Oncology 05/03/22 Amber Rodriguez, S3B MULTI SENSOR OPERATOR.SOUND CONTROLLER [address] [facility] [place] [address] Nurse Practitioner Hematology/Oncology 05/03/22 Rhona Ruiz, RN [address] [facility] [place] [address] Specialty Peat Shredder Tender Hematology/Oncology 05/03/22 Underwater Trapper Relationship Specialty Start Date End Date Prerna Grissom II PCP - General Internal Medicine 05/24/11 Yanira Plasencia, TILTING SAW OPERATOR Airplane Patroller 02/23/22 Ja Becker MD [address] [facility] [address] [place], [place] [address] Physician Hematology/Oncology 05/03/22 Amber Rodriguez, S3B MULTI SENSOR OPERATOR.SOUND CONTROLLER [address] [facility] [place] [address] Nurse Practitioner Hematology/Oncology 05/03/22 Rhona Ruiz, RN [address] [facility] [address] [place], [place] [address] Specialty Peat Shredder Tender Hematology/Oncology 05/03/22 Underwater Trapper Relationship Specialty Start Date End Date Prerna Grissom II PCP - General Internal Medicine 05/24/11 Yanira Plasencia, [facility] Airplane Patroller 02/23/22 Ja Becker MD [address] [facility] [address] [place], [place] [address] Physician Hematology/Oncology 05/03/22 Amber Rodriguez, S3B MULTI SENSOR OPERATOR.SOUND CONTROLLER [address] [facility] [place] [address] Nurse Practitioner Hematology/Oncology 05/03/22 Rhona Ruiz, ILENE [address] [facility] [place] [address] Specialty Peat Shredder Tender Hematology/Oncology 05/03/22 Underwater Trapper Relationship Specialty Start Date End Date Prerna Grissom II PCP - General Internal Medicine 05/24/11 Yanira Palsencia, [facility] Airplane Patroller 02/23/22 Ja Becker MD [address] [facility] [address] [place], [place] [address] Physician Hematology/Oncology 05/03/22 Amber Rodriguez, S3B MULTI SENSOR OPERATOR.SOUND CONTROLLER [address] [facility] [place] [address] Nurse Practitioner Hematology/Oncology 05/03/22 Rhona Ruiz, RN [address] [facility] [place] [address] Specialty Peat Shredder Tender Hematology/Oncology 05/03/22 Underwater Trapper Relationship Specialty Start Date End Date Prerna Grissom II PCP - General Internal Medicine 05/24/11 Yanira Plasencia LSW Airplane Patroller 02/23/22 Ja Becker MD [address] [facility] [address] [place], [place] [address] Physician Hematology/Oncology 05/03/22 Amber Rodriguez, S3B MULTI SENSOR OPERATOR.SOUND CONTROLLER [address] [facility] [place] [address] Nurse Practitioner Hematology/Oncology 05/03/22 Rhona Ruiz, ILENE [address] [facility] [address] [place], [place] [address] Specialty Peat Shredder Tender Hematology/Oncology 05/03/22 Underwater Trapper Relationship Specialty Start Date End Date Prerna Grissom II PCP - General Internal Medicine 05/24/11 Yanira Plasencia [facility] Airplane Patroller 02/23/22 Ja Becker MD [address] [facility] [address] [place], [place] [address] Physician Hematology/Oncology 05/03/22 Amber Rodriguez, S3B MULTI SENSOR OPERATOR.SOUND CONTROLLER [address] [facility] [place] [address] Nurse Practitioner Hematology/Oncology 05/03/22 Rhona Ruiz, RN [address] [facility] [place] [address] Specialty Peat Shredder Tender Hematology/Oncology 05/03/22 Underwater Trapper Relationship Specialty Start Date End Date Prerna Grissom II PCP - General Internal Medicine 05/24/11 Yanira Plasencia TILTING SAW OPERATOR Airplane Patroller 02/23/22 Ja Becker MD [address] [facility] [address] [place], [place] [address] Physician Hematology/Oncology 05/03/22 Amber Rodriguez, S3B MULTI SENSOR OPERATOR.SOUND CONTROLLER [address] [facility] [place] [address] Nurse Practitioner Hematology/Oncology 05/03/22 Rhona Ruiz, ILENE [address] [facility] [address] Specialty Peat Shredder Tender Hematology/Oncology 05/03/22 Underwater Trapper Relationship Specialty Start Date End Date Prerna Grissom II PCP - General Internal Medicine 05/24/11 Yanira Plasencia LSW Airplane Patroller 02/23/22 Ja Becker MD [address] [facility] [address] Physician Hematology/Oncology 05/03/22 Amber Rodriguez, S3B MULTI SENSOR OPERATOR.SOUND CONTROLLER [address] [place] [address] Nurse Practitioner Hematology/Oncology 05/03/22 Rhona Ruiz, ILENE [address] [facility] [address] Specialty Peat Shredder Tender Hematology/Oncology 05/03/22 Underwater Trapper Relationship Specialty Start Date End Date Prerna Grissom II PCP - General Internal Medicine 05/24/11 Yanira Plasencia LSW Airplane Patroller 02/23/22 Ja Becker MD [address] [facility] [place] [address] Physician Hematology/Oncology 05/03/22 Amber Rodriguez, S3B MULTI SENSOR OPERATOR.SOUND CONTROLLER [address] [facility] [address] Nurse Practitioner Hematology/Oncology 05/03/22 Rhona RuizILENE [address] [facility] [address] Specialty Peat Shredder Tender Hematology/Oncology 05/03/22 Underwater Trapper Relationship Specialty Start Date End Date Prerna Grissom JUAN RAMON PCP - General Internal Medicine 05/24/11 Yanira Plasencia, TILTING SAW OPERATOR Airplane Patroller 02/23/22 Ja Becker MD [address] [facility] [address] Physician Hematology/Oncology 05/03/22 Amber Rodriguez, S3B MULTI SENSOR OPERATOR.SOUND CONTROLLER [address] [facility] [place] [address] Nurse Practitioner Hematology/Oncology 05/03/22 Rhona Ruiz RN [address] [facility] [place] [address] Specialty Peat Shredder Tender Hematology/Oncology 05/03/22 Underwater Trapper Relationship Specialty Start Date End Date Prerna Grissom Tamie DELATORRE PCP - General Internal Medicine 05/24/11 Yainra Plasencia, [facility] Airplane Patroller 02/23/22 Ja Becker MD [address] [facility] [address] Physician Hematology/Oncology 05/03/22 Amber Rodriguez, S3B MULTI SENSOR OPERATOR.SOUND CONTROLLER [address] [facility] [address] Nurse Practitioner Hematology/Oncology 05/03/22 Rhona Ruiz, ILENE [address] [facility] [address] Specialty Peat Shredder Tender Hematology/Oncology 05/03/22 Team Status: Active Member Role Status Dates NON STAFF Primary Care Provider Active Team Status: Inactive Member Role Status Dates NON STAFF Primary Care Provider Active Alberto Chappell PA-C Emergency Provider Active Underwater Trapper Relationship Specialty Start Date End Date Prerna Grissom II PCP - General Internal Medicine 05/24/11 Yanira Plasencia LSW Airplane Patroller 02/23/22 Ja Becker MD [address] [facility] [address] [place], [place] [address] Physician Hematology/Oncology 05/03/22 Amber Rodriguez, S3B MULTI SENSOR OPERATOR.SOUND CONTROLLER [address] [facility] [place] [address] Nurse Practitioner Hematology/Oncology 05/03/22 Rhona Ruiz, RN [address] [facility] [address] Specialty Peat Shredder Tender Hematology/Oncology 05/03/22 Underwater Trapper Relationship Specialty Start Date End Date Prerna Grissom II PCP - General Internal Medicine 05/24/11 Yanira Plasencia LSW Airplane Patroller 02/23/22 Ja Becker MD [address] [facility] [address] [place], [place] [address] Physician Hematology/Oncology 05/03/22 Amber Rodriguez, S3B MULTI SENSOR OPERATOR.SOUND CONTROLLER [address] [facility] [address] Nurse Practitioner Hematology/Oncology 05/03/22 Rhona Ruiz, RN [address] [facility] [address] Specialty Peat Shredder Tender Hematology/Oncology 05/03/[address] [facility] [address] [place], [place] [address] Nutrition 11/20/22 Underwater Trapper Relationship Specialty Start Date End Date Prerna Grissom II PCP - General Internal Medicine 05/24/11 Yanira Plasencia, [facility] Airplane Patroller 02/23/22 Ja Becker MD [address] [facility] [address] [place], [place] [id number] Physician Hematology/Oncology 05/03/22 Amber Rodriguez, S3B MULTI SENSOR OPERATOR.SOUND CONTROLLER [address] [facility] [place] [address] Nurse Practitioner Hematology/Oncology 05/03/22 Rhona Ruiz, ILENE [address] [facility] [place] [address] Specialty Peat Shredder Tender Hematology/Oncology 05/03/[address] [facility] [address] [place], [place] [address] Nutrition 11/20/22 Underwater Trapper Relationship Specialty Start Date End Date Prerna Grissom II PCP - General Internal Medicine 05/24/11 Yanira Plasencia [facility] Airplane Patroller 02/23/22 Ja Becker MD [address] [facility] [place] [address] Physician Hematology/Oncology 05/03/22 Amber Rodriguez, S3B MULTI SENSOR OPERATOR.SOUND CONTROLLER [address] [place] [address] Nurse Practitioner Hematology/Oncology 05/03/22 Rhona Ruiz, ILENE [address] [place] [address] Specialty Peat Shredder Tender Hematology/Oncology 05/03/[address] [place] [address] Nutrition 11/20/22 Team Status: Active Member Role Status Dates Prerna Grissom II MD Primary Care Provider Active Team Status: Inactive Member Role Status Dates Amber Rodriguez NP-C Attending Provider Active Prerna Grissom II MD Primary Care Provider Active Underwater Trapper Relationship Specialty Start Date End Date Prerna [place] II PCP - General Internal Medicine 05/24/11 Yanira Plasencia, TILTING SAW OPERATOR Airplane Patroller 02/23/22 Ja Becker MD [address] [facility] [address] [place], [place] [address] Physician Hematology/Oncology 05/03/22 Amber Rodriguez, S3B MULTI SENSOR OPERATOR.SOUND CONTROLLER [address] [place] [address] Nurse Practitioner Hematology/Oncology 05/03/22 Rhona Ruiz, ILENE [address] [place] [address] Specialty Peat Shredder Tender Hematology/Oncology 05/03/[address] [address] Nutrition 11/20/22 Underwater Trapper Relationship Specialty Start Date End Date Prerna Grissom II PCP - General Internal Medicine 05/24/11 Yanira Plasencia, [facility] Airplane Patroller 02/23/22 Ja Becker MD [address] [address] Physician Hematology/Oncology 05/03/22 Amber Rodriguez, S3B MULTI SENSOR OPERATOR.[facility] [address] [place] [address] Nurse Practitioner Hematology/Oncology 05/03/22 Rhona Ruiz, ILENE [address] [place] [address] Specialty Peat Shredder Tender Hematology/Oncology 05/03/[address] [address] Nutrition 11/20/22 Underwater Trapper Relationship Specialty Start Date End Date Prerna Grissom II PCP - General Internal Medicine 05/24/11 Yanira Plasencia LSW Airplane Patroller 02/23/22 Ja Becker MD [address] [address] Physician Hematology/Oncology 05/03/22 Amber Rodriguez, S3B MULTI SENSOR OPERATOR.SOUND CONTROLLER [address] [place] [address] Nurse Practitioner Hematology/Oncology 05/03/22 Rhona Ruiz, ILENE [address] [place] [address] Specialty Peat Shredder Tender Hematology/Oncology 05/03/[address] [place], [place] [address] Nutrition 11/20/22 Underwater Trapper Relationship Specialty Start Date End Date Prerna Grissom II PCP - General Internal Medicine 05/24/11 Yanira Plasencia LSW Airplane Patroller 02/23/22 Ja Becker MD [address] [address] Physician Hematology/Oncology 05/03/22 Amber Rodriguez, S3B MULTI SENSOR OPERATOR.[facility] [address] [place] [address] Nurse Practitioner Hematology/Oncology 05/03/22 Rhona Ruiz, ILENE [address] [place] [address] Specialty Peat Shredder Tender Hematology/Oncology 05/03/[address] [place], [place] [address]70 Nutrition 11/20/22 Underwater Trapper Relationship Specialty Start Date End Date Prerna Grissom II PCP - General Internal Medicine 05/24/11 Yanira Plasencia LSW Airplane Patroller 02/23/22 Ja Becker MD [address] [place] [address] [place] [address] Physician Hematology/Oncology 05/03/22 Amber Rodriguez, S3B MULTI SENSOR OPERATOR.SOUND CONTROLLER [address] [place] [place] [address] Nurse Practitioner Hematology/Oncology 05/03/22 Rhona Ruiz, ILENE [address] [place] [place] [address] Specialty Peat Shredder Tender Hematology/Oncology 05/03/[address] [place] [address] Nutrition 11/20/22 Underwater Trapper Relationship Specialty Start Date End Date Prerna Grissom II, MD PCP - General Internal Medicine 05/24/11 Yanira Plasencia TILTING SAW OPERATOR Airplane Patroller 02/23/22 Ja Becker MD [address] [place] [address] [place] [address] Physician Hematology/Oncology 05/03/22 Amber Rodriguez, S3B MULTI SENSOR OPERATOR.SOUND CONTROLLER [address] [place] [place] [address] Nurse Practitioner Hematology/Oncology 05/03/22 Rhona Ruiz, ILENE [address] [address] Specialty Peat Shredder Tender Hematology/Oncology 05/03/[address] [facility] [place] [address] Nutrition 11/20/22 Underwater Trapper Relationship Specialty Start Date End Date Prerna Grissom II, MD PCP - General Internal Medicine 05/24/11 Yanira Plasencia, TILTING SAW OPERATOR Airplane Patroller 02/23/22 Ja Becker MD [address] [facility] [place] [address] Physician Hematology/Oncology 05/03/22 Amber Rodriguez, S3B MULTI SENSOR OPERATOR.SOUND CONTROLLER [address] [place] [address] Nurse Practitioner Hematology/Oncology 05/03/22 Rhona Ruiz, ILENE [address] [facility] [place] [address] Specialty Peat Shredder Tender Hematology/Oncology 05/03/[address] [place] [address] Nutrition 11/20/22 Underwater Trapper Relationship Specialty Start Date End Date Prerna Grissom II, MD PCP - General Internal Medicine 05/24/11 Yanira Plasencia, [facility] Airplane Patroller 02/23/22 Ja Becker MD [address] [address] Physician Hematology/Oncology 05/03/22 Amber Rodriguez, S3B MULTI SENSOR OPERATOR.SOUND CONTROLLER [address] [place] [address] Nurse Practitioner Hematology/Oncology 05/03/22 Rhona Ruiz, ILENE [address] [place] [address] Specialty Peat Shredder Tender Hematology/Oncology 05/03/[address] [place] [address] Nutrition 11/20/22 Underwater Trapper Relationship Specialty Start Date End Date Prerna Grissom II, MD PCP - General Internal Medicine 05/24/11 Yanira Plasencia LSW Airplane Patroller 02/23/22 Ja Becker MD [address] [place] [address] [place] [address] Physician Hematology/Oncology 05/03/22 Amber Rodriguez, S3B MULTI SENSOR OPERATOR.SOUND CONTROLLER [address] [place] [address] [place] [address] Nurse Practitioner Hematology/Oncology 05/03/22 Rhona Ruiz RN [address] [place] [address] Specialty Peat Shredder Tender Hematology/Oncology 05/03/[address] [place] [address] [place] [address] Nutrition 11/20/22 Underwater Trapper Relationship Specialty Start Date End Date Prerna Grissom II, MD PCP - General Internal Medicine 05/24/11 Yanira Plasencia LSW Airplane Patroller 02/23/22 Ja Becker MD [address] [address] Physician Hematology/Oncology 05/03/22 Amber Rodriguez, S3B MULTI SENSOR OPERATOR.SOUND CONTROLLER [address] [place] [address] Nurse Practitioner Hematology/Oncology 05/03/22 Rhona Ruiz, ILENE [address] [place] [address] Specialty Peat Shredder Tender Hematology/Oncology 05/03/[address] [place] [address] Nutrition 11/20/22 Underwater Trapper Relationship Specialty Start Date End Date Prerna Grissom II, MD PCP - General Internal Medicine 05/24/11 Yanira Plasencia LSW Airplane Patroller 02/23/22 Ja Becker MD [address] [place] [address] [place] [address] Physician Hematology/Oncology 05/03/22 Amber Rodriguez, S3B MULTI SENSOR OPERATOR.SOUND CONTROLLER [address] [place] [address] Nurse Practitioner Hematology/Oncology 05/03/22 Rhona Ruiz, ILENE [address] [place] [address] Specialty Peat Shredder Tender Hematology/Oncology 05/03/[address] [place] [address] Nutrition 11/20/22 Underwater Trapper Relationship Specialty Start Date End Date Prerna Grissom II, MD PCP - General Internal Medicine 05/24/11 Yanira Plasencia, TILTING SAW OPERATOR Airplane Patroller 02/23/22 Ja Becker MD [address] [place] [address] Physician Hematology/Oncology 05/03/22 Amber Rodriguez, S3B MULTI SENSOR OPERATOR.SOUND CONTROLLER [address] [place] [address] Nurse Practitioner Hematology/Oncology 05/03/22 Rhona Ruiz, ILENE [address] [place] [address] Specialty Peat Shredder Tender Hematology/Oncology 05/03/[address] [place] [address] Nutrition 11/20/22 Underwater Trapper Relationship Specialty Start Date End Date Prerna Grissom II, MD PCP - General Internal Medicine 05/24/11 Yanira Plasencia LSW Airplane Patroller 02/23/22 Ja Becker MD [address] [place] [address] [place] [address] Physician Hematology/Oncology 05/03/22 Amber Rodriguez, S3B MULTI SENSOR OPERATOR.SOUND CONTROLLER [address] [facility] [address] Nurse Practitioner Hematology/Oncology 05/03/22 Rhona Ruiz, ILENE [address] [place] [address] Specialty Peat Shredder Tender Hematology/Oncology 05/03/[address] [place] [address] Nutrition 11/20/22 Underwater Trapper Relationship Specialty Start Date End Date Prerna Grissom II, MD PCP - General Internal Medicine 05/24/11 Yanira Plasencia, TILTING SAW OPERATOR Airplane Patroller 02/23/22 Ja Becker MD [address] [place] [address] [place] [address] Physician Hematology/Oncology 05/03/22 Amber Rodriguez, S3B MULTI SENSOR OPERATOR.SOUND CONTROLLER [address] [place] [address] Nurse Practitioner Hematology/Oncology 05/03/22 Rhona Ruiz, ILENE [address] [place] [address] Specialty Peat Shredder Tender Hematology/Oncology 05/03/[address] [place] [address] [place] [address] Nutrition 11/20/22 Underwater Trapper Relationship Specialty Start Date End Date Prerna Grissom II, MD PCP - General Internal Medicine 05/24/11 Yanira Plasencia TILTING SAW OPERATOR Airplane Patroller 02/23/22 Ja Becker MD [address] [place] [address] [place] [address] Physician Hematology/Oncology 05/03/22 Amber Rodriguez, S3B MULTI SENSOR OPERATOR.SOUND CONTROLLER [address] [place] [address] Nurse Practitioner Hematology/Oncology 05/03/22 Rhona Ruiz, ILENE [address] [address] Specialty Peat Shredder Tender Hematology/Oncology 05/03/[address] [facility] [place] [address] Nutrition 11/20/22 Underwater Trapper Relationship Specialty Start Date End Date Prerna Grissom II, MD PCP - General Internal Medicine 05/24/11 Yanira Plasencia, TILTING SAW OPERATOR Airplane Patroller 02/23/22 Ja Becker MD [address] [facility] [place] [address] Physician Hematology/Oncology 05/03/22 Amber Rodriguez, S3B MULTI SENSOR OPERATOR.SOUND CONTROLLER [address] [place] [place] [address] Nurse Practitioner Hematology/Oncology 05/03/22 Rhona Ruiz, ILENE [address] [facility] [place] [address] Specialty Peat Shredder Tender Hematology/Oncology 05/03/[address] [place] [address] Nutrition 11/20/22 Underwater Trapper Relationship Specialty Start Date End Date Prerna Grissom II, MD PCP - General Internal Medicine 05/24/11 Yanira Plasencia, [facility] Airplane Patroller 02/23/22 Ja Becker MD [address] [facility] [place] [address] Physician Hematology/Oncology 05/03/22 Amber Rodriguez, S3B MULTI SENSOR OPERATOR.SOUND CONTROLLER [address] [place] [address] Nurse Practitioner Hematology/Oncology 05/03/22 Rhona Ruiz, ILENE [address] [facility] [place] [address] Specialty Peat Shredder Tender Hematology/Oncology 05/03/[address] [place] [address] Nutrition 11/20/22 Underwater Trapper Relationship Specialty Start Date End Date Prerna Grissom II, MD PCP - General Internal Medicine 05/24/11 Yanira Plasencia LSW Airplane Patroller 02/23/22 Ja Becker MD [address] [place] [address] Physician Hematology/Oncology 05/03/22 Amber Rodriguez, S3B MULTI SENSOR OPERATOR.SOUND CONTROLLER [address] [place] [place] [address] Nurse Practitioner Hematology/Oncology 05/03/22 Rhona Ruiz RN [address] [facility] [place] [address] Specialty Peat Shredder Tender Hematology/Oncology 05/03/[address] [place] [address] [place] [address] Nutrition 11/20/22 Underwater Trapper Relationship Specialty Start Date End Date Prerna Grissom II, MD PCP - General Internal Medicine 05/24/11 Yanira Plasencia LSW Airplane Patroller 02/23/22 Ja Becker MD [address] [facility] [place] [address] Physician Hematology/Oncology 05/03/22 Amber Rodriguez, S3B MULTI SENSOR OPERATOR.SOUND CONTROLLER [address] [place] [place] [address] Nurse Practitioner Hematology/Oncology 05/03/22 Rhona Ruiz, RN [address] [place] [place] [address] Specialty Peat Shredder Tender Hematology/Oncology 05/03/[address] [place] [place] [address] Nutrition 11/20/22 Underwater Trapper Relationship Specialty Start Date End Date Prerna Grissom II, MD PCP - General Internal Medicine 05/24/11 Yanira Plasencia LSW Airplane Patroller 02/23/22 Ja Becker MD [address] [place] [address] [place] [address] Physician Hematology/Oncology 05/03/22 Amber Rodriguez, S3B MULTI SENSOR OPERATOR.SOUND CONTROLLER [address] [place] [place] [address] Nurse Practitioner Hematology/Oncology 05/03/22 Rhona Ruiz, ILENE [address] [place] [place] [address] Specialty Peat Shredder Tender Hematology/Oncology 05/03/[address] [place] [address] Nutrition 11/20/22 Underwater Trapper Relationship Specialty Start Date End Date Prerna Grissom II, MD PCP - General Internal Medicine 05/24/11 Yanira Plasencia, TILTING SAW OPERATOR Airplane Patroller 02/23/22 Ja Becker MD [address] [place] [address] Physician Hematology/Oncology 05/03/22 Amber Rodriguez, S3B MULTI SENSOR OPERATOR.SOUND CONTROLLER [address] [place] [address] Nurse Practitioner Hematology/Oncology 05/03/22 Rhona Ruiz, ILENE [address] [place] [place] [address] Specialty Peat Shredder Tender Hematology/Oncology 05/03/[address] [place] [address] Nutrition 11/20/22 Underwater Trapper Relationship Specialty Start Date End Date Prerna Grissom II, MD PCP - General Internal Medicine 05/24/11 Yanira Plasencia LSW Airplane Patroller 02/23/22 Ja Becker MD [address] [place] [address] [place] [address] Physician Hematology/Oncology 05/03/22 Amber Rodriguez, S3B MULTI SENSOR OPERATOR.SOUND CONTROLLER [address] [place] [address] Nurse Practitioner Hematology/Oncology 05/03/22 Rhona Ruiz, ILENE [address] [place] [place] [address] Specialty Peat Shredder Tender Hematology/Oncology 05/03/[address] [place] [address] Nutrition 11/20/22 Underwater Trapper Relationship Specialty Start Date End Date Prerna Grissom II, MD PCP - General Internal Medicine 05/24/11 Yanira Plasencia LSW Airplane Patroller 02/23/22 Ja Becker MD [address] [place] [address] [place] [address] Physician Hematology/Oncology 05/03/22 Amber Rodriguez, S3B MULTI SENSOR OPERATOR.SOUND CONTROLLER [address] [place] [address] [place] [address] Nurse Practitioner Hematology/Oncology 05/03/22 Rhona Ruiz, ILENE [address] [facility] [place] [address] Specialty Peat Shredder Tender Hematology/Oncology 05/03/[address] [place] [address] [place] [address] Nutrition 11/20/22 Underwater Trapper Relationship Specialty Start Date End Date Prerna Grissom II, MD PCP - General Internal Medicine 05/24/11 Yanira Plasencia LSW Airplane Patroller 02/23/22 Ja Becker MD [address] [place] [address] [place] [address] Physician Hematology/Oncology 05/03/22 Amber Rodriguez, S3B MULTI SENSOR OPERATOR.SOUND CONTROLLER [address] [place] [place] [address] Nurse Practitioner Hematology/Oncology 05/03/22 Rhona Ruiz, ILENE [address] [place] [address] Specialty Peat Shredder Tender Hematology/Oncology 05/03/[address] [facility] [place] [address] Nutrition 11/20/22 Underwater Trapper Relationship Specialty Start Date End Date Prerna Grissom II, MD PCP - General Internal Medicine 05/24/11 Yanira Plasencia, [facility] Airplane Patroller 02/23/22 Ja Becker MD [address] [place] [address] Physician Hematology/Oncology 05/03/22 Amber Rodriguez, S3B MULTI SENSOR OPERATOR.SOUND CONTROLLER [address] [place] [place] [address] Nurse Practitioner Hematology/Oncology 05/03/22 Rhona Ruiz, ILENE [address] [facility] [place] [address] Specialty Peat Shredder Tender Hematology/Oncology 05/03/[address] [place] [address] Nutrition 11/20/22 Underwater Trapper Relationship Specialty Start Date End Date Prerna Grissom II, MD PCP - General Internal Medicine 05/24/11 Yanira Plasencia, [facility] Airplane Patroller 02/23/22 Ja Becker MD [address] [facility] [address] Physician Hematology/Oncology 05/03/22 Amber Rodriguez, S3B MULTI SENSOR OPERATOR.SOUND CONTROLLER [address] [place] [address] Nurse Practitioner Hematology/Oncology 05/03/22 Rhona Ruiz, ILENE [address] [facility] [place] [address] Specialty Peat Shredder Tender Hematology/Oncology 05/03/[address] [place] [address] Nutrition 11/20/22 Underwater Trapper Relationship Specialty Start Date End Date Prerna Grissom II, MD PCP - General Internal Medicine 05/24/11 Yanira Plasencia LSW Airplane Patroller 02/23/22 Ja Becker MD [address] [place] [address] Physician Hematology/Oncology 05/03/22 Amber Rodriguez, S3B MULTI SENSOR OPERATOR.SOUND CONTROLLER [address] [place] [place] [address] Nurse Practitioner Hematology/Oncology 05/03/22 Rhona Ruiz RN [address] [facility] [place] [address] Specialty Peat Shredder Tender Hematology/Oncology 05/03/[address] [place] [address] Nutrition 11/20/22 Underwater Trapper Relationship Specialty Start Date End Date Prerna Grissom II, MD PCP - General Internal Medicine 05/24/11 Yanira Plasencia LSW Airplane Patroller 02/23/22 Ja Becker MD [address] [facility] [place] [address] Physician Hematology/Oncology 05/03/22 Amber Rodriguez, S3B MULTI SENSOR OPERATOR.SOUND CONTROLLER [address] [place] [place] [address] Nurse Practitioner Hematology/Oncology 05/03/22 Rhona Ruiz, RN [address] [place] [address] Specialty Peat Shredder Tender Hematology/Oncology 05/03/[address] [place] [address] [place] [address] Nutrition 11/20/22 Kobe Hernández [address] [place] [address] [phone] Housekeeping Cleaner Pulmonary Disease 01/17/24 Underwater Trapper Relationship Specialty Start Date End Date Prerna Grissom II, MD PCP - General Internal Medicine 05/24/11 Yanira Plasencia LSW Airplane Patroller 02/23/22 Ja Becker MD [address] [place] [address] [place] [address] Physician Hematology/Oncology 05/03/22 Amber Rodriguez, S3B MULTI SENSOR OPERATOR.SOUND CONTROLLER [address] [place] [address] [place] [address] Nurse Practitioner Hematology/Oncology 05/03/22 Rhona Ruiz, ILENE [address] [facility] [place] [address] Specialty Peat Shredder Tender Hematology/Oncology 05/03/[address] [place] [address] Nutrition 11/20/22 Kobe Hernández [address] [place] [address] [phone] Housekeeping Cleaner Pulmonary Disease 01/17/24 Underwater Trapper Relationship Specialty Start Date End Date Prerna Grissom II, MD PCP - General Internal Medicine 05/24/11 Yanira Plasencia, TILTING SAW OPERATOR Airplane Patroller 02/23/22 Ja Becker MD [address] [place] [address] [place], [place] 8854170 Physician Hematology/Oncology 05/03/22 Amber Rodriguez APRN.SOUND CONTROLLER [address] [place] [address] [place] [address] Nurse Practitioner Hematology/Oncology 05/03/22 Rhona Ruiz, ILENE [address] [place] [address] [place] [address] Specialty Peat Shredder Tender Hematology/Oncology 05/03/[address] [place] [address] [place] [address] Nutrition 11/20/22 Kobe Hernández [address] [place] [address] [phone] Housekeeping Cleaner Pulmonary Disease 01/17/24 Underwater Trapper Relationship Specialty Start Date End Date Prerna Grissom II, MD PCP - General Internal Medicine 05/24/11 Yanira Plasencia LSW Airplane Patroller 02/23/22 Ja Becker MD [address] [place] [address] [place], [place] 0323470 Physician Hematology/Oncology 05/03/22 Amber Rodriguez, S3B MULTI SENSOR OPERATOR.SOUND CONTROLLER [address] [place] [address] Nurse Practitioner Hematology/Oncology 05/03/22 Rhona Ruiz, ILENE [address] [place] [address] Specialty Peat Shredder Tender Hematology/Oncology 05/03/[address] [place] [address] Nutrition 11/20/22 Kobe Hernández [address] [place] [phone] Housekeeping Cleaner Pulmonary Disease 01/17/24 Underwater Trapper Relationship Specialty Start Date End Date Prerna Grissom II, MD PCP - General Internal Medicine 05/24/11 Yanira Plasencia LSW Airplane Patroller 02/23/22 Ja Becker MD [address] [facility] [address] Physician Hematology/Oncology 05/03/22 Amber Rodriguez, S3B MULTI SENSOR OPERATOR.SOUND CONTROLLER [address] [place] [address] Nurse Practitioner Hematology/Oncology 05/03/22 Rhona Ruiz, ILENE [address] [place] [place] [address] Specialty Peat Shredder Tender Hematology/Oncology 05/03/[address] [place] [address] Nutrition 11/20/22 Kobe Hernádnez [address] [place] [address] [phone] Housekeeping Cleaner Pulmonary Disease 01/17/24 Underwater Trapper Relationship Specialty Start Date End Date Prerna Grissom II, MD PCP - General Internal Medicine 05/24/11 Yanira Plasencia LSW Airplane Patroller 02/23/22 Ja Becker MD [address] [facility] [address] [place], [place] 9033770 Physician Hematology/Oncology 05/03/22 Amber Rodriguez APRN.SOUND CONTROLLER [address] [facility] [address] [place], [place] 464[address]70 Nurse Practitioner Hematology/Oncology 05/03/22 Rhona Ruiz, ILENE [address] [facility] [place] [address] Specialty Peat Shredder Tender Hematology/Oncology 05/03/[address] [facility] [place] [address] Nutrition 11/20/22 Kobe Hernández [address] [place] [address] Housekeeping Cleaner Pulmonary Disease 01/17/24 Underwater Trapper Relationship Specialty Start Date End Date Prerna Grissom II, MD PCP - General Internal Medicine 05/24/11 Yanira Plasencia LSW Airplane Patroller 02/23/22 Ja Becker MD [address] [facility] [address] [place], [place] 938[address]70 Physician Hematology/Oncology 05/03/22 Amber Rodriguez, S3B MULTI SENSOR OPERATOR.SOUND CONTROLLER [address] [place] [address] Nurse Practitioner Hematology/Oncology 05/03/22 Rhona Ruiz, ILENE [address] [place] [address] Specialty Peat Shredder Tender Hematology/Oncology 05/03/[address] [place] [address] Nutrition 11/20/22 Kobe Hernández [address] [place] [address] [phone] Housekeeping Cleaner Pulmonary Disease 01/17/24 Underwater Trapper Relationship Specialty Start Date End Date Prerna Grissom II, MD PCP - General Internal Medicine 05/24/11 Yanira Plasencia LSW Airplane Patroller 02/23/22 Ja Becker MD [address] [place] [address] Physician Hematology/Oncology 05/03/22 Amber Rodriguez, S3B MULTI SENSOR OPERATOR.SOUND CONTROLLER [address] [place] [address] Nurse Practitioner Hematology/Oncology 05/03/22 Rhona Ruiz, ILENE [address] [place] [address] Specialty Peat Shredder Tender Hematology/Oncology 05/03/[address] [place] [address] Nutrition 11/20/22 Kobe Hernández [address] [place] [address] [phone] Housekeeping Cleaner Pulmonary Disease 01/17/24 Underwater Trapper Relationship Specialty Start Date End Date Prerna Grissom II, MD PCP - General Internal Medicine 05/24/11 Yanira Plasencia LSW Airplane Patroller 02/23/22 Ja Becker MD [address] [facility] [address] [place], [place] 775[address]70 Physician Hematology/Oncology 05/03/22 Amber Rodriguez, S3B MULTI SENSOR OPERATOR.SOUND CONTROLLER [address] [place] [address] Nurse Practitioner Hematology/Oncology 05/03/22 Rhona Ruiz, ILENE [address] [place] [address] Specialty Peat Shredder Tender Hematology/Oncology 05/03/[address] [place] [place] [address] Nutrition 11/20/22 Underwater Trapper Relationship Specialty Start Date End Date Prerna Grissom II, MD PCP - General Internal Medicine 05/24/11 Yanira Plasencia LSW Airplane Patroller 02/23/22 Ja Becker MD [address] [place] [address] Physician Hematology/Oncology 05/03/22 Amber Rodriguez, S3B MULTI SENSOR OPERATOR.SOUND CONTROLLER [address] [place] [place] [address] Nurse Practitioner Hematology/Oncology 05/03/22 Rhona Ruiz, ILENE [address] [place] [address] Specialty Peat Shredder Tender Hematology/Oncology 05/03/[address] [place] [address] [place] [address] Nutrition 11/20/22 Kobe Hernández [address] [place] [address] [phone] Housekeeping Cleaner Pulmonary Disease 01/17/24 Underwater Trapper Relationship Specialty Start Date End Date Prerna Grissom II, MD PCP - General Internal Medicine 05/24/11 Yanira Plasencia LSW Airplane Patroller 02/23/22 Ja Bceker MD [address] [place] [address] [place] [address] Physician Hematology/Oncology 05/03/22 Amber Rodriguez APRN.SOUND CONTROLLER [address] [place] [address] [place] [address] Nurse Practitioner Hematology/Oncology 05/03/22 Rhona Ruiz, ILENE [address] [place] [address] Specialty Peat Shredder Tender Hematology/Oncology 05/03/[address] [place] [address] [place] [address] Nutrition 11/20/22 Underwater Trapper Relationship Specialty Start Date End Date Prerna Grissom II, MD PCP - General Internal Medicine 05/24/11 Yanria Plasencia LSW Airplane Patroller 02/23/22 Ja Becker MD [address] [place] [address] Physician Hematology/Oncology 05/03/22 Amber Rodriguez, S3B MULTI SENSOR OPERATOR.SOUND CONTROLLER [address] [place] [place] [address] Nurse Practitioner Hematology/Oncology 05/03/22 Rhona Ruiz, ILENE [address] [place] [place] [address] Specialty Peat Shredder Tender Hematology/Oncology 05/03/[address] [place] [place] [address] Nutrition 11/20/22 Underwater Trapper Relationship Specialty Start Date End Date Prerna Grissom II, MD PCP - General Internal Medicine 05/24/11 Yanira Plasencia [facility] Airplane Patroller 02/23/22 Ja Becker MD [address] [place] [address] [place] [address] Physician Hematology/Oncology 05/03/22 Amber Rodriguez, S3B MULTI SENSOR OPERATOR.SOUND CONTROLLER [address] [place] [place] [address] Nurse Practitioner Hematology/Oncology 05/03/22 Rhona Ruiz, RN [address] [place] [address] Specialty Peat Shredder Tender Hematology/Oncology 05/03/[address] [place] [place] [address] Nutrition 11/20/22 Kobe Hernández MD [address] [place] [address] [address] [place] [address] Housekeeping Cleaner Pulmonary Disease 01/17/24 Underwater Trapper Relationship Specialty Start Date End Date Prerna Grissom II, MD PCP - General Internal Medicine 05/24/11 Yanira Plasencia TILTING SAW OPERATOR Airplane Patroller 02/23/22 Ja Becker MD [address] [place] [address] [place] [address] Physician Hematology/Oncology 05/03/22 Amber Rodriguez, S3B MULTI SENSOR OPERATOR.SOUND CONTROLLER [address] [place] [address] [place] [address] Nurse Practitioner Hematology/Oncology 05/03/22 Rhona Ruiz, ILENE [address] [place] [address] [place] [address] Specialty Peat Shredder Tender Hematology/Oncology 05/03/22 Underwater Trapper Relationship Specialty Start Date End Date Prerna Grissom II, MD PCP - General Internal Medicine 05/24/11 Yanira Plasencia LSW Airplane Patroller 02/23/22 Ja Becker MD [address] [place] [address] [place] [address] Physician Hematology/Oncology 05/03/22 Amber Rodriguez, S3B MULTI SENSOR OPERATOR.SOUND CONTROLLER [address] [place] [address] [place] [address] Nurse Practitioner Hematology/Oncology 05/03/22 Rhona Ruiz, RN [address] [place] [address] Specialty Peat Shredder Tender Hematology/Oncology 05/03/22 Underwater Trapper Relationship Specialty Start Date End Date Prerna Grissom II, MD PCP - General Internal Medicine 05/24/11 Yanira Plasencia, TILTING SAW OPERATOR Airplane Patroller 02/23/22 Ja Becker MD [address] [place] [address] [place] [address] Physician Hematology/Oncology 05/03/22 Amber Rodriguez APRN.SOUND CONTROLLER [address] [place] [place] [address] Nurse Practitioner Hematology/Oncology 05/03/22 Rhona Ruiz, ILENE [address] [place] [place] [address] Specialty Peat Shredder Tender Hematology/Oncology 05/03/[address] [place] [address] [place] [address] Nutrition 11/20/22 Kobe Hernández MD [address] [place] [address] [phone] Housekeeping Cleaner Pulmonary Disease 01/17/24 Underwater Trapper Relationship Specialty Start Date End Date Prerna Grissom II, MD PCP - General Internal Medicine 05/24/11 Yanira Plasencia LSW Airplane Patroller 02/23/22 Ja Becker MD [address] [place], [place] [address]2570 Physician Hematology/Oncology 05/03/22 Amber Rodriguez, S3B MULTI SENSOR OPERATOR.SOUND CONTROLLER [address] [place] [place] [address] Nurse Practitioner Hematology/Oncology 05/03/22 Rhona Ruiz, ILENE [address] [place] [place] [address] Specialty Peat Shredder Tender Hematology/Oncology 05/03/[address] [place] [address] Nutrition 11/20/22 Kobe Hernández MD [address] [place] [address] [phone] Housekeeping Cleaner Pulmonary Disease 01/17/24 Underwater Trapper Relationship Specialty Start Date End Date Prerna Grissom II, MD PCP - General Internal Medicine 05/24/11 Yanira Plasencia LSW Airplane Patroller 02/23/22 Underwater Trapper Relationship Specialty Start Date End Date Prerna Grissom II, MD PCP - General Internal Medicine 05/24/11 Yanira Plasencia LSW Airplane Patroller 02/23/22 Ja Becker MD [address] [place] [address] Physician Hematology/Oncology 05/03/22 Amber Rodriguez, S3B MULTI SENSOR OPERATOR.SOUND CONTROLLER [address] [place] [address] Nurse Practitioner Hematology/Oncology 05/03/22 Rhona Ruiz, RN [address] [place] [address] [place] [address] Specialty Peat Shredder Tender Hematology/Oncology 05/03/22 Underwater Trapper Relationship Specialty Start Date End Date Prerna Grissom II, MD PCP - General Internal Medicine 05/24/11 Yanira Plasencia LSW Airplane Patroller 02/23/22 Underwater Trapper Relationship Specialty Start Date End Date Prerna Grissom II, MD PCP - General Internal Medicine 05/24/11 Underwater Trapper Relationship Specialty Start Date End Date Prerna Grissom MD [address] [place] [address] PCP - General Internal Medicine 11/07/22 Prerna Grissom MD [address] [place] [address] PCP - ACO Reach 10/31/23Sunday, Lindsay, ROLL FORMING MACHINE SET UP OPERATOR [address] [place] [address] Licensed Practical Nurse Family Medicine 10/04/23 Underwater Trapper Relationship Specialty Start Date End Date Prerna Grissom MD [address] [place] [address] PCP - General Internal Medicine 11/07/22 Prerna Grissom MD [address] [place] [address] PCP - ACO Reach 10/31/23Sunday, Lindsay, ROLL FORMING MACHINE SET UP OPERATOR [address] [place] [address] Licensed Practical Nurse Family Medicine 10/04/23 Underwater Trapper Relationship Specialty Start Date End Date Prerna Grissom II, MD PCP - General Internal Medicine 05/24/11 Yanira Plasencia, TILTING SAW OPERATOR Airplane Patroller 02/23/22 Ja Becker MD [address] [place], [place] 9555170 Physician Hematology/Oncology 05/03/22 Amber Rodriguez, S3B MULTI SENSOR OPERATOR.SOUND CONTROLLER [address] [place] [address] Nurse Practitioner Hematology/Oncology 05/03/22 Rhona Ruiz, ILENE [address] [place] [address] Specialty Peat Shredder Tender Hematology/Oncology 05/03/[address] [place], [place] [id number] Nutrition 11/20/22 Kobe Hernández MD [address] [place] [address] [phone] Housekeeping Cleaner Pulmonary Disease 01/17/24 Underwater Trapper Relationship Specialty Start Date End Date Prerna Grissom II, MD PCP - General Internal Medicine 05/24/11 Yanira Plasencia LSW Airplane Patroller 02/23/22 Ja Becker MD [address] [place], [place] [id number] Physician Hematology/Oncology 05/03/22 Amber Rodriguez, S3B MULTI SENSOR OPERATOR.SOUND CONTROLLER [address] [place], [place] [id number] Nurse Practitioner Hematology/Oncology 05/03/22 Rhona Ruiz, ILENE [address] [place] [address] Specialty Peat Shredder Tender Hematology/Oncology 05/03/[address] [place] [address] Nutrition 11/20/22 Kobe Hernández MD [address] [place] [address] [address] [place] [address] Housekeeping Cleaner Pulmonary Disease 01/17/24 Underwater Trapper Relationship Specialty Start Date End Date Prerna Grissom MD [address] [place] [address] [address] [place] [address] PCP - General Internal Medicine 12/13/18 Underwater Trapper Relationship Specialty Start Date End Date Prerna Grissom II, MD PCP - General Internal Medicine 05/24/11 Yanira Plasencia LSW Airplane Patroller 02/23/22 Ja Becker MD [address] [place] [address] [place] [address] Physician Hematology/Oncology 05/03/22 Amber Rodriguez, S3B MULTI SENSOR OPERATOR.SOUND CONTROLLER [address] [place] [address] Nurse Practitioner Hematology/Oncology 05/03/22 Rhona Ruiz, RN [address] [place] [address] Specialty Peat Shredder Tender Hematology/Oncology 05/03/[address] [place] [address] [place] [address] Nutrition 11/20/22 Kobe Hernández MD [address] [place] [address] [phone] Housekeeping Cleaner Pulmonary Disease 01/17/24 Underwater Trapper Relationship Specialty Start Date End Date Prerna Grissom II, MD PCP - General Internal Medicine 05/24/11 Yanira Plasencia LSW Airplane Patroller 02/23/22 Ja Becker MD [address] [place] [address] [place], [place] [id number] Physician Hematology/Oncology 05/03/22 Amber Rodriguez APRN.SOUND CONTROLLER [address] [place] [address] [place] [address] Nurse Practitioner Hematology/Oncology 05/03/22 Rhona Ruiz, RN [address] [place] [address] [place] [address] Specialty Peat Shredder Tender Hematology/Oncology 05/03/[address] [place] [address] [place] [address] Nutrition 11/20/22 Kobe Hernández MD [address] [place] [address] [phone] Housekeeping Cleaner Pulmonary Disease 01/17/24 Underwater Trapper Relationship Specialty Start Date End Date Prerna Grissom MD [address] [place] [address] [address] [place] [address] PCP - General Internal Medicine 11/07/22 Prerna Grissom MD [address] [place] [address] PCP - ACO Reach 10/31/23SundayLindsay LPN [address] [place] [address] Licensed Practical Nurse Family Medicine 10/04/23 Underwater Trapper Relationship Specialty Start Date End Date Prerna Grissom II, MD PCP - General Internal Medicine 05/24/11 Yanira Plasencia LSW Airplane Patroller 02/23/22 Ja Becker MD [address] [place] [address] [place] [address] Physician Hematology/Oncology 05/03/22 Amber Rodriguez APRN.SOUND CONTROLLER [address] [place] [address] [place] [address] Nurse Practitioner Hematology/Oncology 05/03/22 Rhona Ruiz, ILENE [address] [place] [address] [place] [address] Specialty Peat Shredder Tender Hematology/Oncology 05/03/[address] [place] [address] [place] [address] Nutrition 11/20/22 Kobe Hernández MD [address] [place] [address] [address] [place], [place] [phone] Housekeeping Cleaner Pulmonary Disease 01/17/24 Underwater Trapper Relationship Specialty Start Date End Date Prerna Grissom MD [address] [place] [address] PCP - General Internal Medicine 11/07/22 Prerna Grissom MD [address] [place] [address] PCP - ACO Reach 10/31/23SundayLindsay LPN [address] [place] [address] Licensed Practical Nurse Family Medicine 10/04/23 Underwater Trapper Relationship Specialty Start Date End Date Prerna Grissom MD [address] [place] [address] PCP - General Internal Medicine 11/07/22 Prerna Grissom MD [address] [place] [address] PCP - ACO Reach 10/31/23SundayLindsay LPN [address] [place] [address] Licensed Practical Nurse Family Medicine 10/04/23 (unrecognized sect ion and content) No Status Records FoundNo Status Records FoundNo Status Records FoundNo Status Records FoundNo Status Records FoundNo Status Records FoundNo Status Records FoundNo Status Records FoundNo Status Records FoundNo Status Records Found INFORMATION SOURCE (unrecogn ized section and content) DATE CREATED AUTHOR 05/24/2022 [facility] DATE CREATED AUTHOR AUTHOR'S ORGANIZ ATION 06/25/2022 [facility] DATE CREATED AUTHOR AUTHOR'S ORGANIZ ATION 10/13/2022 [facility] DATE CREATED AUTHOR AUTHOR'S ORGANIZ ATION 03/22/2023 [facility] DATE CREATED AUTHOR AUTHOR'S ORGANIZ ATION 01/21/2024 [facility] DATE CREATED AUTHOR AUTHOR'S ORGANIZ ATION 02/01/2024 [facility] DATE CREATED AUTHOR AUTHOR'S ORGANIZ ATION 03/25/2024 [facility] DATE CREATED AUTHOR AUTHOR'S ORGANIZ ATION 04/19/2024 [facility] DATE CREATED AUTHOR AUTHOR'S ORGANIZ ATION 04/24/2024 [facility] DATE CREATED AUTHOR AUTHOR'S ORGANIZ ATION 04/26/2024 [facility] EPIC Goals (unrecognized section and [...] BE BASED ON THE PRIMARY CLINICAL RECORDS. [facility]. provides no warranty or guarantee of the accuracy or completeness of information in this document.
[2024-04-27 15:37] LABS: Influenza Virus A Antigen Negative; Influenza Virus B Antigen Negative
[2024-04-27] MEDS: GABAPENTIN 300 MG CAPSULE 600 MG PO ×2 (15:37→21:08)
[2024-04-27] MEDS: ENOXAPARIN SODIUM 40 MG/0.4 ML SYRINGE SUBQ (15:37)
[2024-04-27 15:38] LABS: Internal Control Within Normal Limits; SARS-CoV-2 Ag POSITIVE (NEGATIVE)
[2024-04-27] MEDS: IPRATROPIUM/ALBUTEROL SULFATE 3 ML AMPUL.NEB IH ×2 (17:30→23:04)
[2024-04-27] MEDS: DULOXETINE HCL 60 MG CAPSULE.DR PO (21:08)
[2024-04-27] MEDS: TAMSULOSIN HCL 0.4 MG CAPSULE 0.8 MG PO (21:08)
[2024-04-27] MEDS: DOCUSATE SODIUM 100 MG CAPSULE 200 MG PO (21:08)
[2024-04-27] MEDS: CLONAZEPAM 0.5 MG TABLET 1 MG PO (21:09)
[2024-04-27] MEDS: HYDROCODONE/ACET 5-325 MG TABLET 2 TAB PO (21:14)
[2024-04-27] MEDS: BUDESONIDE 0.5 MG/2 ML AMPULE NEB IH (23:04)
[2024-04-27] MEDS: ACETAMINOPHEN 500 MG TABLET 1000 MG PO (23:51)
[2024-04-27] MEDS: METOPROLOL TARTRATE 5 MG/5 ML VIAL IVP (23:52)
[2024-04-28] VITALS (26 sets, daily range): BP systolic 104–182; BP diastolic 64–96; PULSE 73–160; TEMP 36.4–38.2; O2SAT 87–98
[2024-04-28 00:52] LABS: Hematocrit 27.5 % (42.0-54.0); Hemoglobin 9.3 g/dL (14.0-18.0); Mean Corpuscular HGB Conc 33.8 g/dL (29.9-35.2); Mean Corpuscular Volume 103.4 fL (80.0-94.0); Mean Platelet Volume 10.5 fL (9.5-13.5); Platelet Count 190 10^3/uL (150-450); Red Blood Count 2.66 10^6/uL (4.70-6.10); Red Cell Distribution Width 16.3 % (11.0-15.0); White Blood Count 13.2 10^3/uL (4.0-11.0)
[2024-04-28 01:20] LABS: Alanine Aminotransferase 77 U/L (16-63); Albumin Globulin Ratio 0.5; Albumin Level 2.4 g/dL (3.4-5.0); Alkaline Phosphatase 167 U/L (46-116); Anion Gap 14.8; Aspartate Amino Transferase 59 U/L (15-37); BUN Creatinine Ratio 26.6; Bilirubin Total 0.8 mg/dL (0.2-1.0); C Reactive Protein 23.08 mg/dL (<=0.50); Calcium 8.7 mg/dL (8.5-10.1); Chloride 101 mmol/L (98-107); Estimated GFR (African America >60 (>=60 mL/min/1.73m^2); Estimated GFR (Non-African Ame 50 (>=60 mL/min/1.73m^2); Glucose 114 mg/dL (74-106); Magnesium 2.3 mg/dL (1.8-2.4); Potassium 3.8 mmol/L (3.5-5.1); Sodium 137 mmol/L (136-145); Total Protein 7.4 g/dL (6.4-8.2)
[2024-04-28 01:22] LABS: INR 1.15
[2024-04-28 01:24] LABS: Troponin I High Sensitivity 176.3 pg/mL (4.0-76.1)
[2024-04-28 01:26] LABS: D Dimer 1.81 mg/L FEU (<=0.59)
--- NOTE | 2024-04-28 01:32 | XR_ITS ---
The [address] [address] Patient Name: RAGHAVENDRA HEARD MRN: [id number] date: 1945 Sex: M Assigned Patient Location: [place] Current Patient Location: Accession/Order Number: [id number] Exam Date: 04/28/2024 02:58 Report Date: 04/28/2024 04:30 At the request of: ANTONY VALDEZ Procedure: XR chest 1V SINGLE VIEW CHEST: 04/28/2024 2:58 AM EDT CLINICAL HISTORY:tachycardia, elevated troponin COMPARISONS: CTA chest 04/27/2024 one day earlier. TECHNIQUE: Single frontal view of the chest, utilizing portable technique. Portable radiography should be considered a technically compromised study. Strongly consider dedicated PA and lateral chest radiographs, as clinically indicated. FINDINGS: LINES AND TUBES: Right upper chest wall port IJ line satisfactory tip at distal SVC or cavoatrial junction. CARDIAC SILHOUETTE: Stable. Mildly enlarged. MEDIASTINAL AND HILAR CONTOUR: No change. PULMONARY PARENCHYMA AND PLEURA: Correlated with chest CT and x-ray there remains extensive widespread dense groundglass infiltrates throughout left lung tissue throughout the right upper and lower lobe and perihilar regions. No change from CT chest. The chest CT report. No pneumothorax. No pleural effusion. OSSEOUS STRUCTURES:Nothing significant. OTHER COMMENTS:None. XR/XR chest 1V IMPRESSION: Widespread bilateral pulmonary infiltrates greater on the left remain. Please refer to CTA chest report from 04/27/2024 for details. Stable chest wall port and IJ line. This report was generated with voice recognition software. Effort has been made to ensure accuracy of this report, however, occasional wording errors may persist. Please contact our office with any questions. Electronically authenticated by: RAUL HAGAN Date: 04/28/2024 04:30
[2024-04-28 01:38] LABS: Band Neutrophils Absolute 1.3 10^3/uL (0.0-0.3); Lymphocytes Absolute Manual 0.79 10^3/uL (1.20-3.80); Monocytes Absolute Manual 0.52 10^3/uL (0.30-0.80); Segmented Neut Absolute Manual 10.56 10^3/uL (1.4-6.5)
[2024-04-28 01:41] LABS: Anisocytosis 1+; Burr Cells 1+
[2024-04-28 01:42] LABS: Schistocytes 1+
[2024-04-28] MEDS: DILTIAZEM HCL 25 MG/5 ML VIAL 10 MG IV (01:51)
[2024-04-28] MEDS: IPRATROPIUM/ALBUTEROL SULFATE 3 ML AMPUL.NEB IH ×4 (04:05→23:30)
[2024-04-28 04:57] LABS: Hematocrit 27.8 % (42.0-54.0); Hemoglobin 9.3 g/dL (14.0-18.0); Mean Corpuscular HGB Conc 33.5 g/dL (29.9-35.2); Mean Corpuscular Hemoglobin 35.1 pg (25.9-34.0); Mean Corpuscular Volume 104.9 fL (80.0-94.0); Mean Platelet Volume 10.7 fL (9.5-13.5); Platelet Count 193 10^3/uL (150-450); Red Blood Count 2.65 10^6/uL (4.70-6.10); Red Cell Distribution Width 16.4 % (11.0-15.0); White Blood Count 13.6 10^3/uL (4.0-11.0)
[2024-04-28 05:22] LABS: Alanine Aminotransferase 73 U/L (16-63); Albumin Globulin Ratio 0.4; Albumin Level 2.2 g/dL (3.4-5.0); Alkaline Phosphatase 169 U/L (46-116); Anion Gap 15.2; Aspartate Amino Transferase 54 U/L (15-37); BUN Creatinine Ratio 28.6; Bilirubin Total 0.7 mg/dL (0.2-1.0); Calcium 8.7 mg/dL (8.5-10.1); Carbon Dioxide 26.8 mmol/L (21.0-32.0); Chloride 101 mmol/L (98-107); Estimated GFR (African America 60 (>=60 mL/min/1.73m^2); Estimated GFR (Non-African Ame 49 (>=60 mL/min/1.73m^2); Glucose 116 mg/dL (74-106); Sodium 139 mmol/L (136-145); Total Protein 7.2 g/dL (6.4-8.2)
[2024-04-28 05:25] LABS: Troponin I High Sensitivity 480.7 pg/mL (4.0-76.1)
[2024-04-28 05:35] LABS: Band Neutrophils Absolute 1.2 10^3/uL (0.0-0.3); Lymphocytes Absolute Manual 0.68 10^3/uL (1.20-3.80); Monocytes Absolute Manual 0.27 10^3/uL (0.30-0.80); Segmented Neut Absolute Manual 11.42 10^3/uL (1.4-6.5)
[2024-04-28 05:36] LABS: Anisocytosis 1+; Burr Cells 1+; Schistocytes 1+
[2024-04-28] MEDS: GABAPENTIN 300 MG CAPSULE 600 MG PO ×3 (05:50→21:11)
--- NOTE | 2024-04-28 07:28 | CA_ITS ---
Patient Name: RAGHAVENDRA HEARD MR#: [id number] : 1945 Exam Date: 04/28/2024 Ordering Doctor: Elizabeth Lopez . ECHOCARDIOGRAM REPORT PROCEDURE: CA ECHO LIMITED INDICATIONS: new onset afib, acute CHF, shortness of breath, elevated TROP COMPARISON: None. DESCRIPTION: Limited ECHOCARDIOGRAM Real-time transthoracic echocardiography with 2D and M-mode performed. QUALITY: Technical quality was good. LEFT VENTRICLE: Normal chamber size. Left ventricular wall thickness appears increased. D-shaped septum consistent with right ventricular pressure and/or volume overload. LV EF: Global left ventricular systolic function is hyperdynamic; visually estimated ejection fraction is 65 to 70%. No segmental wall motion abnormalities. LEFT ATRIUM: Normal chamber size. RIGHT ATRIUM: Moderate dilatation. A prominent Eustachian valve (normal variant) is seen. RIGHT VENTRICLE: Moderate dilatation. Right ventricular systolic function is significantly reduced. TRICUSPID VALVE: Normal mobility and thickness. MITRAL VALVE: Normal mobility and thickness. There is no mitral annular calcification. AORTIC VALVE: Normal trileaflet appearance. Mildly calcified aortic valve. AORTIC ROOT: Normal diameter and appearance. PULMONIC VALVE: Normal thickness and mobility. PERICARDIUM: Trivial pericardial effusion. IVC: IVC is dilated (2.3 cm) with no collapse. CONCLUSION: 1. Global left ventricular systolic function is hyperdynamic; visually estimated ejection fraction is 65 to 70% 2. D-shaped septum consistent with right ventricular pressure and/or volume overload 3. Left ventricular wall thickness appears increased 4. The right ventricle is moderately enlarged with reduced systolic function 5. The right atrium is moderately dilated A limited echocardiogram was performed Adult Echocardiography Procedure Report Left Ventricle LVEDD (3.7 - 5.6 cm): 3.69 cm LVESD (2.2 - 4.0 cm): 2.79 cm LVIVS thickness (0.6 - 1.2 cm): 1.02 cm LVPW thickness (0.5 - 1.0 cm): 0.82 cm LVOT Diameter 2.10 cm Left Atrium Left Atrium Systolic Dimension: 2.10 cm Mitral Valve Right Ventricle Aorta AO Root Diam: 3.42 cm Aortic Valve Tricuspid Valve Pulmonic Valve Right Atrium Right Atrium Systolic Pressure: 43.87 ml, 43.87 ml Dictated by: Winter Vargas M.D. on 04/28/2024 at 14:27 Approved by: Winter Vargas M.D. on 04/28/2024 at 14:31
--- NOTE | 2024-04-28 07:36 | PM.PN ---
Progress Note: Subjective Subjective Interval history: Patient is still very short of breath. Tried CPAP but did not tolerate long, now on Vapotherm. Last night developed Afib with rate of 169. Was given lopressor and cardizem load by night time hospitalist. At the time of my exam this morning patient is tired but denies chest pain. Says the Vapotherm helped last night. Still short of breath with conversing. Denies fevers or chills. Did have alot of urine output overnight. Exam Narrative Exam Narrative: General: Patient is alert, and oriented to person, place and time short of breath with conversing Skin: no visible rashes, or ulcers, pallor Head: atraumatic, acephalic Eyes: PERRLA, no nystagmus present, conjunctiva clear, no scleral icterus Ears: normal Tympanic Membrane, normal gross auditory acuity Heart: Normal rate and rhythm, no murmurs/rubs/gallops Lungs: audible wheezes, crackles and diminished breath sounds all lung hoffmann Abdomen: Normal audible bowel sounds, no distension, No palpable masses, no organomegaly, no rebound/guarding/ or rigidity Musculoskeletal: no swelling bilateral lower extremities Neuro: CN II-X grossly intact Constitutional Vital Signs, click to edit/add: Last Vital Signs Temp 98.3 F 04/28/24 04:53 Pulse 73 04/28/24 06:00 Resp 22 H 04/28/24 04:53 BP 124/71 04/28/24 04:53 Pulse Ox 97 04/28/24 06:00 O2 Del Method Vapotherm 04/28/24 04:53 O2 Flow Rate 40 04/28/24 04:53 FiO2 4 04/28/24 04:53 Progress Note: Objective Labs Labs: Short CBC 04/27/24 04/28/24 04/28/24 Range/Units 08:42 00:15 04:48 WBC 12.5 H 13.2 H 13.6 H (4.0-11.0) 10^3/uL Hgb 9.2 L 9.3 L 9.3 L (14.0-18.0) g/dL Hct 28.3 L 27.5 L 27.8 L (42.0-54.0) % Plt Count 190 190 193 (150-450) 10^3/uL BMP 10/04/28/24 04/28/24 08:42 00:25 04:48 Sodium 138 137 139 Potassium 3.6 3.8 4.0 Chloride 103 101 101 Carbon Dioxide 23.9 25.0 26.8 BUN 37.0 H 37.0 H 40.0 H Creatinine 1.21 1.39 H 1.40 H Glucose 132 H 114 H 116 H Calcium 8.2 L 8.7 8.7 Liver Function 04/27/24 04/28/24 04/28/24 Range/Units 08:42 00:25 04:48 Total Bilirubin 0.8 0.8 0.7 (0.2-1.0) mg/dL AST 59 H 59 H 54 H (15-37) U/L ALT 87 H 77 H 73 H (16-63) U/L Alkaline Phosphatase 136 H 167 H 169 H (46-116) U/L Albumin 2.4 L 2.4 L 2.2 L (3.4-5.0) g/dL Progress Note: A&P Assessment and Plan (1) Pneumonia due to severe acute respiratory syndrome coronavirus 2 (SARS-CoV-2): Assessment and Plan: Patient had positive Covid test yesterday evening, Fever overnight. Given setting CT with multifocal pneumonia this is most likely the underlying culprit. Will attempt sputum culture if possible, blood cultures pending. Given patient's immunosuppressive history with previous lung cancer, and worsening respiratory status, will place on loading dose of Remdesivir 200mg x 1, then continue 4 doses of 100mg IV daily. I will also treat with combined dexamethasone 4mg PO daily. Continue to cover with Levaquin for secondary bacterial cause and history of COPD. Patient's leukocytosis worsened today to 13.6. He is currently requiring vapotherm. I have also asked pulmonary to see patient and any new recommendations greatly appreciated. (2) Acute respiratory failure with hypoxia: Assessment and Plan: secondary to #1, continue duonebs and new addition of medications today. Continues to require more oxygen beyond his baseline. (3) Atrial fibrillation with rapid ventricular response: Assessment and Plan: Last night patient had Afib with RVR seen on Telemetry, he was given Cardizem and Lopressor which quickly controlled rate. Last Echo was 10/2023, will order limited echo today. Troponin elevated but not suprising in the setting of Acute pneumonia with hypoxia and acute CHF. Will stop amlodipine and place on Coreg 3.125 BID, monitor for signs of bradycardia. Stop lovenox and place on Eliquis 5mg BID. Stable electrolytes. Afib most likely caused from acute combined illnesses of pneumonia and chf. Cardiology consult today for any new recommendations appreciated. (4) NSTEMI (non-ST elevated myocardial infarction): Assessment and Plan: elevated trop and d-dimer, with CT PE protocol negative for PE but in the setting of hypoxia, pneumonia and chf most likely Type 2 NSTEMI. (5) Acute on chronic diastolic (congestive) heart failure: Assessment and Plan: continue strict fluid restriction 1.5L with monitor I&O's. daily weights. continue Lasix 40mg IV daily. (6) CAD (coronary artery disease): Assessment and Plan: Patient currently taking atorvastatin, will continue this, was placed on Eliquis so holding Asprin for now. Nitro PRN. Qualifiers: Associated angina: without angina Coronary Disease-Associated Artery/Lesion type: [place] artery [place] vs. transplanted heart: [place] heart Qualified Code(s): I25.10 - Atherosclerotic heart disease of [place] coronary artery without angina pectoris (7) Hypertension: Assessment and Plan: Patient was previously taking amlodipine. I have stopped this and placed on Coreg 3.125mg BID to help with heart rate control and in the setting of CHF. Qualifiers: Hypertension type: primary hypertension Qualified Code(s): I10 - Essential (primary) hypertension (8) Depression with anxiety: Assessment and Plan: continue home meds (9) BPH (benign prostatic hyperplasia): Assessment and Plan: continue home meds Qualifiers: Lower urinary tract symptom presence: symptoms absent Qualified Code(s): N40.0 - Benign prostatic hyperplasia without lower urinary tract symptoms (10) COPD (chronic obstructive pulmonary disease): Assessment and Plan: currently on Trelegy. continue duonebs. OPEP Qualifiers: COPD type: unspecified COPD Qualified Code(s): J44.9 - Chronic obstructive pulmonary disease, unspecified Plan Patient is DNR CCA continue eliquis Patient has seen a decline overnight, worsening hypoxia, development of Afib, Will need 2-3 more day of hospital necessary care. High probability of decompensation and requiring ICU level care.
[2024-04-28 08:22] LABS: Troponin I High Sensitivity 560.2 pg/mL (4.0-76.1)
[2024-04-28] MEDS: LEVOFLOXACIN IN DEXTROSE 5 % 750 MG/150 ML PREMIX 100 MG IV (08:38)
[2024-04-28] MEDS: FINASTERIDE 5 MG TABLET PO (08:38)
[2024-04-28] MEDS: DOCUSATE SODIUM 100 MG CAPSULE 200 MG PO ×2 (08:38→21:11)
[2024-04-28] MEDS: DULOXETINE HCL 60 MG CAPSULE.DR PO ×2 (08:39→21:12)
[2024-04-28] MEDS: DEXAMETHASONE 4 MG TABLET PO (08:39)
[2024-04-28] MEDS: CARVEDILOL 3.125 MG TABLET PO ×2 (08:39→21:12)
[2024-04-28] MEDS: FUROSEMIDE 40 MG/4 ML VIAL IVP (08:39)
[2024-04-28] MEDS: APIXABAN 5 MG TABLET PO ×2 (08:39→21:12)
[2024-04-28] MEDS: HYDROCODONE/ACET 5-325 MG TABLET 2 TAB PO ×2 (08:46→21:12)
--- NOTE | 2024-04-28 10:51 | SWNOTE1 ---
SW received a message from case management and pt will need home health at discharge. SW stopped in to speak with pt. Pt lives at home with his . He voiced he does not use a walker or cane to ambulate. Pt does have home oxygen, but he is unsure of company and liter flow. He stated he uses it as needed and they never came to pick it back up. He stated his uses [employer] and he can always use hers. JR asked who set him up with home oxygen? He stated we did. SW to check in to this. JR advised pt that home health therapy is recommended. Pt is agreeable. JR provided pt with list from medicare.gov with star ratings. Pt would like [facility]. At this time no other concerns. Referral sent to [facility]. Referral included face sheet, ED note, H&P, provider notes, case management report, and PT/OT notes.
[2024-04-28] MEDS: BUDESONIDE 0.5 MG/2 ML AMPULE NEB IH ×2 (11:10→23:30)
[2024-04-28] MEDS: REMDESIVIR 200 MG in 0.9 % SODIUM CHLORIDE 250 ML 250 MG IV (11:11)
--- NOTE | 2024-04-28 11:24 | CM.NOTE ---
Rounds made with Dr. Lopez, pt continues on vapotherm. Pt does verbalizes improvement in breathing. No discharge today, continue IV antibiotics and antiviral medications.
--- NOTE | 2024-04-28 11:26 | SWNOTE1 ---
SW called [facility] and pt does have home oxygen from them. It is for 2 liters continuous and the script is from October 2023. SW let nurse and doctor know.
--- NOTE | 2024-04-28 12:09 | CM.NOTE ---
Important Message From Medicare discussed with pt, pt verbalizes understanding and signs paper. Original given to pt and copy placed on pt's chart. Updated pt on his oxygen is through [facility] and home script is for 2L NC, will evaluate his need prior to discharge.
--- NOTE | 2024-04-28 12:16 | P.CACN_ITS ---
History of Present Illness History of Present Illness Consult date: 04/28/24 Requesting physician: Elizabeth Lopez Consult reason: atrial fibrillation Chief complaint: CHF, PNEUMONIA Narrative: Per admit H&P: Chief complaint: CHF, PNEUMONIA Narrative: This is a 79-year-old male patient with a past medical history including history of lung CA s/p resection and chemotherapy, hypertension, hyperlipidemia, depression with anxiety, BPH, and COPD; who presented to the ED complaining of shortness of breath for several days. Today just felt like he could not catch his breath. When EMS arrived his pulse ox was <88%, given steroid and duoneb and placed on oxygen. Patient uses oxygen as needed. ER findings: Hb (9.2), and hyperglycemia (132). Chest x-ray revealed multifocal pneumonia versus pulmonary edema the patient is being admitted to the hospitalist service as an inpatient for COPD exacerbation and multifocal pneumonia along with acute on chronic heart failure. Patient was started on CPAP and recovered well and at the time he is up on medical floor is on 4L NC. At the time of my exam the patient is laying in bed. He is obviously short of breath with conversing. UPDATE 04/28/2024: H/O CAD, RI, PATTI to OM in 2022, multiple myeloma, lung cancer s/p RUL lobectomy and chemo/radiation completed in Aug 2022 Still SOB, but improved. No chest pain. No palpitations. Denies recent exertional chest pain prior to current admission. Review of Systems ROS Status of ROS 10 or more systems reviewed and unremark able except as noted in history and below [facility] Medical History (Updated 04/28/24 @ 08:11 by Elizabeth Lopez, ) COPD (chronic obstructive pulmonary disease) ?J44.9 - Chronic obstructive pulmonary disease, unspecified (ICD-10) Malnutrition ?E46 - Unspecified protein-calorie malnutrition (ICD-10) Acute on chronic diastolic (congestive) heart failure ?I50.33 - Acute on chronic diastolic (congestive) heart failure (ICD-10) Acute respiratory failure with hypoxia ?J96.01 - Acute respiratory failure with hypoxia (ICD-10) CAD (coronary artery disease) ?I25.10 - Atherosclerotic heart disease of [place] coronary artery without angina pectoris (ICD-10) Hypertension ?I10 - Essential (primary) hypertension (ICD-10) Lung cancer ?C34.90 - Malignant neoplasm of unspecified part of unspecified bronchus or lung (ICD-10) Bilateral pneumonia ?J18.9 - Pneumonia, unspecified organism (ICD-10) Depression with anxiety ?F41.8 - Other specified anxiety disorders (ICD-10) BPH (benign prostatic hyperplasia) ?N40.0 - Benign prostatic hyperplasia without lower urinary tract symptoms (ICD-10) Past heart attack ?I25.2 - Old myocardial infarction (ICD-10) Surgical History History of appendectomy ?Z90.49 - Acquired absence of other specified parts of digestive tract (ICD- 10) H/O pneumonectomy ?Z98.890 - Other specified postprocedural states (ICD-10) ?Z90.2 - Acquired absence of lung [part of] (ICD-10) Family History Father Family history of hypertension Social History Within the past year, how often did you have a drink containing alcohol: never Score interpretation: A score less than 4 is consistent with normal alcohol consumption. Smoking status: Former smoker Non-prescribed substance use: denies use Highest level of school completed/degree received: GED or equivalent Little interest or pleasure in doing things: not at all Feeling down, depressed, or hopeless: not at all Meds Home Medications and Allergies Home Medications ?Medication ?Instructions ?Recorded ?Confirmed ?Type albuterol sulfate 90 mcg/actuation 2 puff inhalation Q4H PRN 11/07/23 04/27/24 History aerosol inhaler shortness of breath or wheezing amlodipine 2.5 mg tablet 2.5 mg PO QDAY 11/07/23 04/27/24 History aspirin 81 mg tablet,delayed 81 mg PO DAILY 11/07/23 04/27/24 History release (Adult Aspirin Regimen) atorvastatin 40 mg tablet 40 mg PO QDAY 11/07/23 04/27/24 History cholecalciferol (vitamin D3) 50 50 mcg PO DAILY 11/07/23 04/27/24 History mcg (2,000 unit) tablet (D3 DOTS) clonazepam 1 mg tablet 1 mg PO TID PRN anxiety 11/07/23 04/27/24 History docusate sodium 100 mg capsule 200 mg PO BID 11/07/23 04/27/24 History (Stool Softener) duloxetine 60 mg capsule,delayed 60 mg PO BID 11/07/23 04/27/24 History release finasteride 5 mg tablet 5 mg PO QDAY 11/07/23 04/27/24 History fluticasone fur. 100 mcg-umeclid 1 inh inhalation DAILY 11/07/23 04/27/24 History 62.5 mcg-vilant 25 mcg inhalat.powder (Trelegy Ellipta) gabapentin 300 mg capsule 600 mg PO Q8H 11/07/23 04/27/24 History hydrocodone 5 mg-acetaminophen 325 2 tab PO Q6H PRN pain 11/07/23 04/27/24 History mg tablet meloxicam 15 mg tablet 15 mg PO QDAY 11/07/23 04/27/24 History nitroglycerin 0.4 mg sublingual 0.4 mg sublingual Q5M PRN chest 11/07/23 04/27/24 History tablet pain sennosides 8.6 mg tablet (Senna 17.2 mg PO BID PRN constipation 11/07/23 04/27/24 History Laxative) tamsulosin 0.4 mg capsule 0.8 mg PO .QHS 11/07/23 04/27/24 History furosemide 20 mg tablet 20 mg PO .qod 04/27/24 04/27/24 History Allergies Allergy/AdvReac Type Severity Reaction Status Date / Time No Known Drug Allergies Allergy Verified 04/27/24 08:43 Exam Narrative Exam Narrative: Comfortable, in no acute distress Constitutional Vital Signs, click to edit/add: Last Vital Signs Temp 98.1 F 04/28/24 11:45 Pulse 75 04/28/24 11:45 Resp 20 04/28/24 11:45 BP 104/71 04/28/24 11:45 Pulse Ox 93 L 04/28/24 11:45 O2 Del Method Vapotherm 04/28/24 11:45 O2 Flow Rate 40 04/28/24 11:11 FiO2 45 04/28/24 11:11 Common normals: no apparent distress General appearance: cooperative and comfortable Orientation/consciousness: Yes awake, Yes oriented to person, Yes oriented to place and Yes oriented to time HENMT Common normals: normocephalic Head and scalp: normal to inspection Face and sinus: normal facial exam Nose: external nose normal Eye Common normals: EOMs intact bilaterally General eye: normal appearance of both eyes Neck & C-Spine Common normals: full ROM General: normal visual inspection Chest Common normals: inspection of chest normal Respiratory Other: diminished air entry bilaterally, scattered rhonchi Cardio Common normals: no JVD and regular rate Palpation: normal PMI Rate: regular rate Rhythm: regular rhythm Heart sounds: S1 normal and S2 normal Extremity Common normals: normal to inspection Neuro Common normals: oriented x3 Sensorium/orientation: awake, alert, oriented to person, oriented to place and oriented to time Results Labs and Meds Lab results: Cardiac Enzymes 04/28/24 04/28/24 Range/Units 00:25 04:48 AST 59 H 54 H (15-37) U/L Coagulation 04/28/24 Range/Units 00:25 PT 12.0 H (9.0-11.6) sec CBC 04/28/24 04/28/24 Range/Units 00:15 04:48 WBC 13.2 H 13.6 H (4.0-11.0) 10^3/uL RBC 2.66 L 2.65 L (4.70-6.10) 10^6/uL Hgb 9.3 L 9.3 L (14.0-18.0) g/dL Hct 27.5 L 27.8 L (42.0-54.0) % Plt Count 190 193 (150-450) 10^3/uL Comprehensive Metabolic Panel 04/28/24 04/28/24 Range/Units 00:25 04:48 Sodium 137 139 (136-145) mmol/L Potassium 3.8 4.0 (3.5-5.1) mmol/L Chloride 101 101 (98-107) mmol/L Carbon Dioxide 25.0 26.8 (21.0-32.0) mmol/L BUN 37.0 H 40.0 H (7.0-18.0) mg/dL Creatinine 1.39 H 1.40 H (0.70-1.30) mg/dL Glucose 114 H 116 H (74-106) mg/dL Calcium 8.7 8.7 (8.5-10.1) mg/dL AST 59 H 54 H (15-37) U/L ALT 77 H 73 H (16-63) U/L Alkaline Phosphatase 167 H 169 H (46-116) U/L Total Protein 7.4 7.2 (6.4-8.2) g/dL Albumin 2.4 L 2.2 L (3.4-5.0) g/dL Intake and Output 04/27/24 04/28/24 04/28/24 23:59 07:59 15:59 Intake Total 390 / 390 Output Total 200 / 200 Balance -200 / 10 390 / 390 Intake: Oral 240 / 240 IV 150 / 150 Levofloxacin in Dextrose 5 % 150 / 150 750 mg In 150 ml @ 100 mls/hr IV Q24H [facility] Rx#:[id number] Output: Urine 200 / 200 Other: Weight 68.7 kg EKG Interpretation EKG: sinus rhythm (tachycardia, incomplete RBBB, premature supraventricular beats) Assessment and Plan Assessment and Plan (1) Pneumonia due to severe acute respiratory syndrome coronavirus 2 (SARS-CoV-2): (2) Acute respiratory failure with hypoxia: (3) Atrial fibrillation with rapid ventricular response: (4) NSTEMI (non-ST elevated myocardial infarction): Assessment and Plan: This does not represent a Type 1 RI or acute coronaru syndrome His Troponin elevation is without chest pain or ischemic EKG changes; this represents a Type 2 RI or acute myocardial injury due to COVID, infection, and decompensated HFpEF If echo shows nml EF% and no WMAs, then the Troponin is acute myocardial injury (5) Acute on chronic diastolic (congestive) heart failure: (6) CAD (coronary artery disease): Qualifiers: Associated angina: without angina Coronary Disease-Associated Artery/Lesion type: [place] artery [place] vs. transplanted heart: [place] heart Qualified Code(s): I25.10 - Atherosclerotic heart disease of [place] coronary artery without angina pectoris (7) Hypertension: Qualifiers: Hypertension type: primary hypertension Qualified Code(s): I10 - Es sential (primary) hypertension (8) Depression with anxiety: (9) BPH (benign prostatic hyperplasia): Qualifiers: Lower urinary tract symptom presence: symptoms absent Qualified Code(s): N40.0 - Benign prostatic hyperplasia without lower urinary tract symptoms (10) COPD (chronic obstructive pulmonary disease): Qualifiers: COPD type: unspecified COPD Qualified Code(s): J44.9 - Chronic obstructive pulmonary disease, unspecified Plan 1. Routine labs, trend Troponin, correct electrolytes 2. Continue guideline directed medical therapy for CAD including ASA and a statin. Consider a BBlocker once his covid has resolved. 3. An echocardiogram is pending 4. If no wall motion abnormalities and EF% is normal, treatment of Troponin elevation and acute myocardial injury should be treatment of comorbid conditions 5. If reduced EF% or WMAs (Type 2 RI), may consider ischemic work-up (stress test vs cath) once infectious issues have resolved and likely as an outpatient 6. Should the patient have anginal chest pain, hemodynamic or electrical instability, may consider earlier work-up Thank you for the consultation Winter Vargas MD [facility] Cardiovascular Medicine
[2024-04-28] MEDS: SODIUM CHLORIDE 0.65% OCEAN NASAL SPRAY 2 SPRAY NS (14:14)
--- NOTE | 2024-04-28 15:54 | SWNOTE1 ---
[facility] is able to accept.
--- NOTE | 2024-04-28 19:00 | PC.NURSE ---
Pt transferred to ICU per Dr order for pt to be placed on bipap. made aware of transfer per pt telephone call from his room.
--- NOTE | 2024-04-28 19:20 | RESP.RT ---
Titrated Fi02 up to 50%, Sp02 increased to 92%.
[2024-04-28] MEDS: CLONAZEPAM 0.5 MG TABLET 1 MG PO (21:11)
[2024-04-28] MEDS: TAMSULOSIN HCL 0.4 MG CAPSULE 0.8 MG PO (21:11)
[2024-04-29] VITALS (85 sets, daily range): BP systolic 103–166; BP diastolic 66–91; PULSE 62–95; TEMP 36.5–37.4; O2SAT 89–97
[2024-04-29] MEDS: IPRATROPIUM/ALBUTEROL SULFATE 3 ML AMPUL.NEB IH ×4 (04:24→23:19)
[2024-04-29] MEDS: GABAPENTIN 300 MG CAPSULE 600 MG PO ×3 (05:13→21:06)
[2024-04-29] MEDS: HYDROCODONE/ACET 5-325 MG TABLET 2 TAB PO ×3 (05:13→21:05)
[2024-04-29] MEDS: CLONAZEPAM 0.5 MG TABLET 1 MG PO ×2 (05:14→21:05)
[2024-04-29 05:48] LABS: Basophils Percent Auto 0.2 % (0.2-2.0); Hemoglobin 9.7 g/dL (14.0-18.0); Immature Granulocytes Abs Auto 0.05 10^3/uL (0.00-0.03); Immature Granulocytes Pct Auto 0.4 % (0.0-0.5); Lymphocytes Absolute Auto 0.8 10^3/uL (1.2-3.8); Lymphocytes Percent Auto 6.7 % (20.5-60.0); Mean Corpuscular HGB Conc 33.4 g/dL (29.9-35.2); Mean Corpuscular Volume 101.8 fL (80.0-94.0); Mean Platelet Volume 10.7 fL (9.5-13.5); Monocytes Absolute Auto 0.3 10^3/uL (0.3-0.8); Monocytes Percent Auto 2.4 % (1.7-12.0); Neutrophils Absolute Auto 11.3 10^3/uL (1.4-6.5); Neutrophils Percent Auto 90.3 % (43.0-75.0); Platelet Count 193 10^3/uL (150-450); Red Blood Count 2.85 10^6/uL (4.70-6.10); Red Cell Distribution Width 16.3 % (11.0-15.0); White Blood Count 12.5 10^3/uL (4.0-11.0)
[2024-04-29 06:11] LABS: Alanine Aminotransferase 58 U/L (16-63); Albumin Globulin Ratio 0.4; Albumin Level 2.2 g/dL (3.4-5.0); Alkaline Phosphatase 177 U/L (46-116); Anion Gap 17.1; Aspartate Amino Transferase 56 U/L (15-37); BUN Creatinine Ratio 36.8; Bilirubin Total 0.7 mg/dL (0.2-1.0); Calcium 8.6 mg/dL (8.5-10.1); Carbon Dioxide 24.8 mmol/L (21.0-32.0); Chloride 101 mmol/L (98-107); Estimated GFR (African America >60 (>=60 mL/min/1.73m^2); Estimated GFR (Non-African Ame 56 (>=60 mL/min/1.73m^2); Globulin 5.2 g/dL; Glucose 103 mg/dL (74-106); Potassium 3.9 mmol/L (3.5-5.1); Sodium 139 mmol/L (136-145); Total Protein 7.4 g/dL (6.4-8.2)
--- NOTE | 2024-04-29 07:38 | PM.PN ---
Progress Note: Subjective Subjective Interval history: Patient is still very short of breath with conversing despite being on Vapotherm. Tried CPAP but did not tolerate long, now on Vapotherm and refused BIPAP. At the time of my exam this morning patient is tired but denies chest pain. Says the Vapotherm helped, nasal congestion is improved. Denies fevers or chills. Has had alot of urine output. Increased productive cough today. Exam Narrative Exam Narrative: General: Patient is alert, and oriented to person, place and time, short of breath with conversing Skin: no visible rashes, or ulcers, pallor Head: atraumatic, acephalic Eyes: PERRLA, no nystagmus present, conjunctiva clear, no scleral icterus Ears: normal gross auditory acuity Heart: Normal rate and rhythm, no murmurs/rubs/gallops Lungs: audible wheezes, crackles and diminished breath sounds all lung h[place] but some difficulty with auscultation with the sound of vapotherm Abdomen: Normal audible bowel sounds, no distension, No palpable masses, no organomegaly, no rebound/guarding/ or rigidity Musculoskeletal: no swelling bilateral lower extremities Neuro: CN II-X grossly intact Constitutional Vital Signs, click to edit/add: Last Vital Signs Temp 98.9 F 04/29/24 05:22 Pulse 80 04/29/24 06:00 Resp 28 H 04/29/24 05:22 BP 166/90 H 04/29/24 05:22 Pulse Ox 95 04/29/24 06:00 O2 Del Method Vapotherm 04/29/24 05:22 O2 Flow Rate 40 04/29/24 05:22 FiO2 50 04/29/24 05:22 Progress Note: Objective Labs Labs: Short CBC 04/29/24 Range/Units 05:16 WBC 12.5 H (4.0-11.0) 10^3/uL Hgb 9.7 L (14.0-18.0) g/dL Hct 29.0 L (42.0-54.0) % Plt Count 193 (150-450) 10^3/uL BMP 04/29/24 05:16 Sodium 139 Potassium 3.9 Chloride 101 Carbon Dioxide 24.8 BUN 46.0 H Creatinine 1.25 Glucose 103 Calcium 8.6 Liver Function 04/29/24 Range/Units 05:16 Total Bilirubin 0.7 (0.2-1.0) mg/dL AST 56 H (15-37) U/L ALT 58 (16-63) U/L Alkaline Phosphatase 177 H (46-116) U/L Albumin 2.2 L (3.4-5.0) g/dL Progress Note: A&P Assessment and Plan (1) Pneumonia due to severe acute respiratory syndrome coronavirus 2 (SARS-CoV-2): Assessment and Plan: blood cultures pending. Patient was loaded with Remdesivir 200mg x 1, then will continue 4 doses of 100mg IV daily. I will also treat with combined dexamethasone 4mg PO daily. Continue to cover with Levaquin for secondary bacterial cause and history of COPD. He is currently requiring vapotherm. I have also asked pulmonary to see patient and any new recommendations greatly appreciated. (2) Acute respiratory failure with hypoxia: Assessment and Plan: secondary to #1, continue duonebs and medications listed above. Continues to require more oxygen beyond his baseline PRN 2L NC at home. (3) Atrial fibrillation with rapid ventricular response: Assessment and Plan: Patient remains in NSR. Coreg 3.125 BID started yesterday, monitor for signs of bradycardia. Also placed on Eliquis 5mg BID. Stable electrolytes. Afib most likely caused from acute combined illnesses of pneumonia and chf. Cardiology consulted yesterday with no new recommendations. (4) NSTEMI (non-ST elevated myocardial infarction): Assessment and Plan: elevated trop and d-dimer, with CT PE protocol negative for PE but in the setting of hypoxia, pneumonia and chf most likely Type 2 NSTEMI; Echo showed EF 65-70% with increased right ventricular pressure (5) Acute on chronic diastolic (congestive) heart failure: Assessment and Plan: continue strict fluid restriction 1.5L with monitor I&O's. daily weights. continue Lasix 40mg IV daily. Will transition back to oral 20mg daily tomorrow. ProBNP decreased today 4793 (6) CAD (coronary artery disease): Assessment and Plan: Patient currently taking atorvastatin, will continue this, was placed on Eliquis so holding Aspirin for now. Nitro PRN. Qualifiers: Associated angina: without angina Coronary Disease-Associated Artery/Lesion type: [place] artery [place] vs. transplanted heart: [place] heart Qualified Code(s): I25.10 - Atherosclerotic heart disease of [place] coronary artery without angina pectoris (7) Hypertension: Assessment and Plan: continue Coreg 3.125mg BID Qualifiers: Hypertension type: primary hypertension Qualified Code(s): I10 - Essential (primary) hypertension (8) Depression with anxiety: Assessment and Plan: continue home meds (9) BPH (benign prostatic hyperplasia): Assessment and Plan: continue home meds Qualifiers: Lower urinary tract symptom presence: symptoms absent Qualified Code(s): N40.0 - Benign prostatic hyperplasia without lower urinary tract symptoms (10) COPD (chronic obstructive pulmonary disease): Assessment and Plan: currently on Trelegy. continue duonebs. OPEP Qualifiers: COPD type: unspecified COPD Qualified Code(s): J44.9 - Chronic obstructive pulmonary disease, unspecified Plan Patient is DNR CCA continue eliquis
[2024-04-29] MEDS: ACETAMINOPHEN 500 MG TABLET 1000 MG PO (08:17)
[2024-04-29] MEDS: FUROSEMIDE 40 MG/4 ML VIAL IVP (08:18)
[2024-04-29] MEDS: APIXABAN 5 MG TABLET PO ×2 (08:18→20:11)
[2024-04-29] MEDS: DOCUSATE SODIUM 100 MG CAPSULE 200 MG PO ×2 (08:18→20:11)
[2024-04-29] MEDS: CARVEDILOL 3.125 MG TABLET PO ×2 (08:18→20:11)
[2024-04-29] MEDS: FINASTERIDE 5 MG TABLET PO (08:18)
[2024-04-29] MEDS: DEXAMETHASONE 4 MG TABLET PO (08:18)
[2024-04-29] MEDS: DULOXETINE HCL 60 MG CAPSULE.DR PO ×2 (08:18→20:11)
--- NOTE | 2024-04-29 10:23 | REH.PTDLY ---
Physical Therapy Daily Note PT Daily Note/Assess Start: 04/28/24 10:28 Freq: Status: Active Protocol: Document 04/29/24 10:22 MYNOR (Rec: 04/29/24 10:23 MYNOR No Response) Visit Not Completed Visit Not Completed Due to: Pt refusing Other Reason Visit Not Completed Pt declines PT this morning, does not want to get out of bed or try exs at this time. Pt now in ICU, still on vapotherm. Physical Therapy Daily Note/Assessment Time In 10:20 Time Out 10:22
--- NOTE | 2024-04-29 10:33 | CM.NOTE ---
Rounds made with Dr. Lopez, pt continues to require vapotherm 50% FIO2. Dr. Berrios to consult today for further recommendations. No discharge today.
[2024-04-29] MEDS: BUDESONIDE 0.5 MG/2 ML AMPULE NEB IH ×2 (11:06→23:19)
[2024-04-29] MEDS: REMDESIVIR 100 MG in 0.9 % SODIUM CHLORIDE 100 ML 200 MG IV (11:24)
[2024-04-29] MEDS: GUAIFENESIN DM 600-30 MG 12 HR TAB 1 TAB PO (11:24)
--- NOTE | 2024-04-29 13:37 | SWNOTE1 ---
No discharge today, JR sent updated physician note and OT note to [facility].
--- NOTE | 2024-04-29 17:33 | PM.PLCN ---
History of Present Illness History of Present Illness Consult date: 04/29/24 Reason for consult: hypoxemia (COVID) Chief complaint: CHF, PNEUMONIA Narrative: 79yo male presented to [facility] ER with approximately 3-day onset of shortness of breath fatigue and other constitutional symptoms. Was found to have bilateral infiltrates and was positive for COVID. Oxygenation was poor and he was placed on O2, eventually to the point he required Vapotherm. He is currently in an intensive care unit. He was offered BiPAP, but refused it. Vapotherm is currently at 40L/min at 50% FiO2. Patient has a pulmonary history including paraseptal emphysema and right upper lobe lung cancer which was adenocarcinoma.He also has multiple myeloma and is managed by oncology.Former smoker [id number], quit 2017.PFT 08/16/2023 showed moderate obstruction with FEV1 59%, concomitant restriction at TLC 70%, and severe diffusion impairment at 43%. Review of Systems ROS Status of ROS 10 or more systems reviewed and unremarkable except as noted in history and below Constitutional Reports: fatigue and malaise Cardiovascular Denies: chest pain Respiratory Reports: shortness of breath, cough, wheezing and pain on inspiration (RUL - chronic) [facility] Medical History (Updated 04/28/24 @ 08:11 by Elizabeth Lopez DO) COPD (chronic obstructive pulmonary disease) ?J44.9 - Chronic obstructive pulmonary disease, unspecified (ICD-10) Malnutrition ?E46 - Unspecified protein-calorie malnutrition (ICD-10) Acute on chronic diastolic (congestive) heart failure ?I50.33 - Acute on chronic diastolic (congestive) heart failure (ICD-10) Acute respiratory failure with hypoxia ?J96.01 - Acute respiratory failure with hypoxia (ICD-10) CAD (coronary artery disease) ?I25.10 - Atherosclerotic heart disease of [place] coronary artery without angina pectoris (ICD-10) Hypertension ?I10 - Essential (primary) hypertension (ICD-10) Lung cancer ?C34.90 - Malignant neoplasm of unspecified part of unspecified bronchus or lung (ICD-10) Bilateral pneumonia ?J18.9 - Pneumonia, unspecified organism (ICD-10) Depression with anxiety ?F41.8 - Other specified anxiety disorders (ICD-10) BPH (benign prostatic hyperplasia) ?N40.0 - Benign prostatic hyperplasia without lower urinary tract symptoms (ICD-10) Past heart attack ?I25.2 - Old myocardial infarction (ICD-10) Surgical History History of appendectomy ?Z90.49 - Acquired absence of other specified parts of digestive tract (ICD-10) H/O pneumonectomy ?Z98.890 - Other specified postprocedural states (ICD-10) ?Z90.2 - Acquired absence of lung [part of] (ICD-10) Family History Father Family history of hypertension Social History Within the past year, how often did you have a drink containing alcohol: never Score interpretation: A score less than 4 is consistent with normal alcohol consumption. Smoking status: Former smoker Non-prescribed substance use: denies use Highest level of school completed/degree received: GED or equivalent Little interest or pleasure in doing things: not at all Feeling down, depressed, or hopeless: not at all Meds Home Medications and Allergies Home Medications ?Medication ?Instructions ?Recorded ?Confirmed ?Type albuterol sulfate 90 mcg/actuation 2 puff inhalation Q4H PRN 11/07/23 04/27/24 History aerosol inhaler shortness of breath or wheezing amlodipine 2.5 mg tablet 2.5 mg PO QDAY 11/07/23 04/27/24 History aspirin 81 mg tablet,delayed 81 mg PO DAILY 11/07/23 04/27/24 History release (Adult Aspirin Regimen) atorvastatin 40 mg tablet 40 mg PO QDAY 11/07/23 04/27/24 History cholecalciferol (vitamin D3) 50 50 mcg PO DAILY 11/07/23 04/27/24 History mcg (2,000 unit) tablet (D3 DOTS) clonazepam 1 mg tablet 1 mg PO TID PRN anxiety 11/07/23 04/27/24 History docusate sodium 100 mg capsule 200 mg PO BID 11/07/23 04/27/24 History (Stool Softener) duloxetine 60 mg capsule,delayed 60 mg PO BID 11/07/23 04/27/24 History release finasteride 5 mg tablet 5 mg PO QDAY 11/07/23 04/27/24 History fluticasone fur. 100 mcg-umeclid 1 inh inhalation DAILY 11/07/23 04/27/24 History 62.5 mcg-vilant 25 mcg inhalat.powder (Trelegy Ellipta) gabapentin 300 mg capsule 600 mg PO Q8H 11/07/23 04/27/24 History hydrocodone 5 mg-acetaminophen 325 2 tab PO Q6H PRN pain 11/07/23 04/27/24 History mg tablet meloxicam 15 mg tablet 15 mg PO QDAY 11/07/23 04/27/24 History nitroglycerin 0.4 mg sublingual 0.4 mg sublingual Q5M PRN chest 11/07/23 04/27/24 History tablet pain sennosides 8.6 mg tablet (Senna 17.2 mg PO BID PRN constipation 11/07/23 04/27/24 History Laxative) tamsulosin 0.4 mg capsule 0.8 mg PO .QHS 11/07/23 04/27/24 History furosemide 20 mg tablet 20 mg PO .qod 04/27/24 04/27/24 History Allergies Allergy/AdvReac Type Severity Reaction Status Date / Time No Known Drug Allergies Allergy Verified 04/27/24 08:43 Exam Constitutional Vital Signs, click to edit/add: Last Vital Signs Temp 97.7 F 04/29/24 16:00 Pulse 63 04/29/24 16:58 Resp 22 H 04/29/24 12:30 BP 103/66 04/29/24 11:30 Pulse Ox 92 L 04/29/24 16:58 O2 Del Method Vapotherm 04/29/24 16:58 O2 Flow Rate 40 04/29/24 16:58 FiO2 50 04/29/24 16:58 Documenting provider has reviewed patient's vital signs: yes Common normals: no apparent distress HENMT Other: wearing Vapotherm nasal cannula Chest Chest: symmetrical chest wall rise Respiratory Other: Diminished breath sounds with mild diffuse crackles. No wheezes. Cardio Rate: regular rate Rhythm: regular rhythm GI Inspection: normal to inspection Extremity Common normals: no clubbing, cyanosis or edema Neuro Motor exam: no tremor noted and no fasciculations Psych Appearance: grossly normal Attitude: calm Results Laboratory Findings ABG, PT/INR, D-dimer: ABG ABG pH 7.423 (7.350-7.450) 04/27/24 08:35 ABG pCO2 35.8 mmHg (35.0-45.0) 04/27/24 08:35 ABG pO2 81.6 mmHg (80.0-100.0) 04/27/24 08:35 ABG O2 Saturation 96.8 % 04/27/24 08:35 PT/INR, D-dimer PT 12.0 sec (9.0-11.6) H 04/28/24 00:25 INR 1.15 04/28/24 00:25 D-Dimer 1.81 mg/L FEU (<=0.59) H* 04/28/24 00:25 Abnormal lab findings: Abnormal Labs 04/27/24 04/27/24 04/28/24 08:42 15:10 00:15 WBC 12.5 H 13.2 H RBC 2.69 L 2.66 L Hgb 9.2 L 9.3 L Hct 28.3 L 27.5 L MCV 105.2 H 103.4 H MCH 34.2 H 35.0 H RDW 16.3 H 16.3 H Neut % (Auto) Lymph % (Auto) Eos % (Auto) Neut # (Auto) Lymph # (Auto) Abs Immat Gran (auto) Seg Neuts % (Manual) 83.0 H 80.0 H Band Neutrophils % 11.0 H 10.0 H Lymphocytes % (Manual) 6.0 L 6.0 L Monocytes % (Manual) 0.0 L Eosinophils % (Manual) 0.0 L 0.0 L Basophils % (Manual) 0.0 L 0.0 L Neutrophils # (Manual) 10.37 H 10.56 H Band Neutrophils # 1.4 H 1.3 H Lymphocytes # (Manual) 0.75 L 0.79 L Monocytes # (Manual) 0.00 L PT 12.3 H D-Dimer BUN 37.0 H Creatinine Est GFR (Non-Af Amer) 58 L Glucose 132 H Calcium 8.2 L Magnesium 2.9 H AST 59 H ALT 87 H Alkaline Phosphatase 136 H Troponin I High Sens C-Reactive Protein NT-Pro-B Natriuret Pep 2882.0 H* Albumin 2.4 L SARS-CoV-2 Ag (CV2AG) Positive A 10/28/24 10/28/24 10/28/24 00:25 04:48 07:30 WBC 13.6 H RBC 2.65 L Hgb 9.3 L Hct 27.8 L MCV 104.9 H MCH 35.1 H RDW 16.4 H Neut % (Auto) Lymph % (Auto) Eos % (Auto) Neut # (Auto) Lymph # (Auto) Abs Immat Gran (auto) Seg Neuts % (Manual) 84.0 H Band Neutrophils % 9.0 H Lymphocytes % (Manual) 5.0 L Monocytes % (Manual) Eosinophils % (Manual) 0.0 L Basophils % (Manual) 0.0 L Neutrophils # (Manual) 11.42 H Band Neutrophils # 1.2 H Lymphocytes # (Manual) 0.68 L Monocytes # (Manual) 0.27 L PT 12.0 H D-Dimer 1.81 H* BUN 37.0 H 40.0 H Creatinine 1.39 H 1.40 H Est GFR (Non-Af Amer) 50 L 49 L Glucose 114 H 116 H Calcium Magnesium AST 59 H 54 H ALT 77 H 73 H Alkaline Phosphatase 167 H 169 H Troponin I High Sens 176.3 H* 480.7 H* 560.2 H* C-Reactive Protein 23.08 H NT-Pro-B Natriuret Pep 6631.0 H* Albumin 2.4 L 2.2 L SARS-CoV-2 Ag (CV2AG) 04/29/24 05:16 WBC 12.5 H RBC 2.85 L Hgb 9.7 L Hct 29.0 L MCV 101.8 H MCH RDW 16.3 H Neut % (Auto) 90.3 H Lymph % (Auto) 6.7 L Eos % (Auto) 0.0 L Neut # (Auto) 11.3 H Lymph # (Auto) 0.8 L Abs Immat Gran (auto) 0.05 H Seg Neuts % (Manual) Band Neutrophils % Lymphocytes % (Manual) Monocytes % (Manual) Eosinophils % (Manual) Basophils % (Manual) Neutrophils # (Manual) Band Neutrophils # Lymphocytes # (Manual) Monocytes # (Manual) PT D-Dimer BUN 46.0 H Creatinine Est GFR (Non-Af Amer) 56 L Glucose Calcium Magnesium AST 56 H ALT Alkaline Phosphatase 177 H Troponin I High Sens C-Reactive Protein NT-Pro-B Natriuret Pep 4793.0 H* Albumin 2.2 L SARS-CoV-2 Ag (CV2AG) Assessment and Plan Assessment and Plan (1) Pneumonia due to severe acute respiratory syndrome coronavirus 2 (SARS-CoV-2): Assessment and Plan: 1. Acute viral pneumonia secondary to COVID?19.Patient is currently on remdesivir and dexamethasone. Treatment is supportive at this time. Do not recommend Paxlovid due to numerous drug reactions, and he is already 6 days out from initial symptoms. 2. Acute hypoxic respiratory failure. Secondary to the above. Patient failed traditional nasal cannula and is now on Vapotherm 40L/min @ FiO2 50%. Patient had refused BiPAP. Explained to the patient if Vapotherm fails, the nexy step would be BiPAP and if he is refusing this, there would be nothing else left as he is also refusing intubation/ventilator support. Patient reiterates that he does not want to be on a ventilator; however, regarding the BiPAP, he stated if he needs it, we will deal with it if it comes to that. Patient was strongly encouraged to consider his options and have a more concrete answer. In the meantime, I recommended to the patient to begin proning?explained that proning has been shown to improve oxygenation. He voiced he could not sleep on his stomach. I explained that I am not expecting him to sleep prone, but rotate on/off every 2 hours while awake to help improve his oxygenation. He voiced he would try to do that. 3. Acute exacerbation of COPD. Patient has underlying paraseptal emphysema with moderate obstruction, last PFT 08/16/2023 noted FEV1 of 59%. Home inhaled regimen includes Trelegy 100 and DuoNeb 2?3 times a day. Continue with bronchodilators, pulmonary toilet, supportive care. 4. Primary lung adenocarcinoma of the right upper lobe, s/p right upper lobectomy 04/24/2019, recurrence noted on EBUS of the right hilum 06/14/2022. 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 This is contributing to his poor pulmonary status. 5. NSTEMI type II secondary to acute illness. He will need cardiovascular intervention once his acute issues have resolved. 6. History of tobacco abuse. 45 pack-years, quit 2017. Plan Please note, I previously saw the patient outpatient on 02/17/2029 for abnormal LDCT screening for the right upper lobe spiculated mass that eventually was found to be adenocarcinoma. PET scan was ordered by me with the nodule FDG positive. The patient contacted the office on 02/25/2019 wanting to know the results?he was going on vacation and would not return until 03/14/2019. My nurse at that time attempted to schedule the patient ELMA to discuss the results as I did not feel an uavk-jpa-admag discussion was appropriate in this situation, but he refused and persisted that he would only speak to me. I let him know that the PET was positive and therefore suspicious for cancer - I asked the patient multiple times during this phone conversation to schedule an appointment with me that week to arrange for further w/up. He refused yet again and stated he was going on vacation. I explained I wanted to speed up the w/up so that everything could be handled over his vacation and when he returned, we could proceed with biopsies etc. - I was attempting avoid a 2+ week delay. He once again refused a sooner appointment. The patient called the office on 03/10/2019 wishing to cancel his appointment for 03/14/2019 stating that I was not not compassionate. Dr. Hernández's office was contacted on 02/28/2019 with a referral from Dr. Gunter's office noting that he did not like his first senior librarian. I will continue to care for the patient during this hospitalization. He is to follow-up with Dr. Hernández for any further outpatient pulmonary care upon discharge.
[2024-04-29] MEDS: TAMSULOSIN HCL 0.4 MG CAPSULE 0.8 MG PO (21:06)
[2024-04-29] MEDS: GUAIFENESIN 200 MG/DEXTROMETHORPHAN 20 MG 10 ML UNIT DOSE CUP PO (21:50)
[2024-04-30] VITALS (31 sets, daily range): BP systolic 103–156; BP diastolic 63–82; PULSE 58–90; TEMP 36.4–37.1; O2SAT 79–100
--- NOTE | 2024-04-30 04:35 | PC.NURSE ---
Patient coughing with noted decrease in SPO2. Low level of 74%. Patient encouraged to slow breathing and breath through his nose. Patient states he began coughing after drinking water. Patient refuses to lay prone. FIO2 on vapotherm increased to 50%. Reassurance given. Patient repositioned self up in bed. Patient spo2 increased to 88% after 14 minutes recovery.
[2024-04-30] MEDS: IPRATROPIUM/ALBUTEROL SULFATE 3 ML AMPUL.NEB IH ×4 (05:10→23:22)
[2024-04-30 06:20] LABS: Basophils Percent Auto 0.1 % (0.2-2.0); Hematocrit 31.3 % (42.0-54.0); Hemoglobin 10.4 g/dL (14.0-18.0); Immature Granulocytes Abs Auto 0.05 10^3/uL (0.00-0.03); Immature Granulocytes Pct Auto 0.5 % (0.0-0.5); Lymphocytes Absolute Auto 0.9 10^3/uL (1.2-3.8); Lymphocytes Percent Auto 9.6 % (20.5-60.0); Mean Corpuscular HGB Conc 33.2 g/dL (29.9-35.2); Mean Corpuscular Hemoglobin 34.1 pg (25.9-34.0); Mean Corpuscular Volume 102.6 fL (80.0-94.0); Mean Platelet Volume 11.9 fL (9.5-13.5); Monocytes Absolute Auto 0.5 10^3/uL (0.3-0.8); Monocytes Percent Auto 4.9 % (1.7-12.0); Neutrophils Absolute Auto 8.3 10^3/uL (1.4-6.5); Neutrophils Percent Auto 84.9 % (43.0-75.0); Platelet Count 208 10^3/uL (150-450); Red Blood Count 3.05 10^6/uL (4.70-6.10); Red Cell Distribution Width 16.5 % (11.0-15.0); White Blood Count 9.8 10^3/uL (4.0-11.0)
[2024-04-30] MEDS: GABAPENTIN 300 MG CAPSULE 600 MG PO ×3 (06:30→20:50)
[2024-04-30 06:44] LABS: Alanine Aminotransferase 53 U/L (16-63); Albumin Globulin Ratio 0.4; Albumin Level 2.3 g/dL (3.4-5.0); Alkaline Phosphatase 186 U/L (46-116); Anion Gap 17.8; Aspartate Amino Transferase 60 U/L (15-37); Bilirubin Total 0.8 mg/dL (0.2-1.0); Calcium 8.7 mg/dL (8.5-10.1); Carbon Dioxide 26.3 mmol/L (21.0-32.0); Chloride 98 mmol/L (98-107); Estimated GFR (African America >60 (>=60 mL/min/1.73m^2); Estimated GFR (Non-African Ame 59 (>=60 mL/min/1.73m^2); Glucose 123 mg/dL (74-106); Potassium 4.1 mmol/L (3.5-5.1); Sodium 138 mmol/L (136-145); Total Protein 8.3 g/dL (6.4-8.2)
--- NOTE | 2024-04-30 07:20 | PM.PN ---
Progress Note: Subjective Subjective Interval history: Patient is still very short of breath with conversing despite being on Vapotherm. Patient still refusing BIPAP or CPAP and is wanting to go to normal Nasal Cannula. At the time of my exam this morning patient is tired but denies chest pain. Says the Vapotherm helped, nasal congestion is improved. Denies fevers or chills. Has had alot of urine output. Exam Narrative Exam Narrative: General: Patient is alert, and oriented to person, place and time, short of breath with conversing Skin: no visible rashes, or ulcers, pallor Head: atraumatic, acephalic Eyes: PERRLA, no nystagmus present, conjunctiva clear, no scleral icterus Ears: normal gross auditory acuity Heart: Normal rate and rhythm, no murmurs/rubs/gallops Lungs: audible wheezes, crackles and diminished breath sounds all lung hoffmann but some difficulty with auscultation with the sound of vapotherm Abdomen: Normal audible bowel sounds, no distension, No palpable masses, no organomegaly, no rebound/guarding/ or rigidity Musculoskeletal: no swelling bilateral lower extremities Neuro: CN II-X grossly intact Constitutional Vital Signs, click to edit/add: Last Vital Signs Temp 98.1 F 04/30/24 01:47 Pulse 66 04/30/24 06:00 Resp 20 04/30/24 05:10 BP 149/82 H 04/30/24 04:12 Pulse Ox 95 04/30/24 05:10 O2 Del Method Vapotherm 04/30/24 05:10 O2 Flow Rate 40 04/30/24 05:10 FiO2 50 04/30/24 05:10 Progress Note: Objective Labs Labs: Short CBC 04/30/24 Range/Units 05:18 WBC 9.8 (4.0-11.0) 10^3/uL Hgb 10.4 L (14.0-18.0) g/dL Hct 31.3 L (42.0-54.0) % Plt Count 208 (150-450) 10^3/uL BMP 04/30/24 05:18 Sodium 138 Potassium 4.1 Chloride 98 Carbon Dioxide 26.3 BUN 50.0 H Creatinine 1.19 Glucose 123 H Calcium 8.7 Liver Function 04/30/24 Range/Units 05:18 Total Bilirubin 0.8 (0.2-1.0) mg/dL AST 60 H (15-37) U/L ALT 53 (16-63) U/L Alkaline Phosphatase 186 H (46-116) U/L Albumin 2.3 L (3.4-5.0) g/dL Progress Note: A&P Assessment and Plan (1) Pneumonia due to severe acute respiratory syndrome coronavirus 2 (SARS-CoV-2): Assessment and Plan: Patient was loaded with Remdesivir 200mg x 1, then will continue 4 doses of 100mg IV daily. I will also treat with combined dexamethasone 4mg PO daily. Continue to cover with Levaquin for secondary bacterial cause and history of COPD. He is currently requiring vapotherm. (2) Acute respiratory failure with hypoxia: Assessment and Plan: See #1 Currently at 40% FIO2 with 55, director of assessment recommended prone time, He has done a total of 5 minutes of this. (3) Acute on chronic diastolic (congestive) heart failure: Assessment and Plan: continue strict fluid restriction 1.5L with monitor I&O's. daily weights. continue Lasix 20mg oral daily ProBNP decreased [place] 4793 (4) Atrial fibrillation with rapid ventricular response: Assessment and Plan: No further afib episodes, continue eliquis and coreg (5) NSTEMI (non-ST elevated myocardial infarction): Assessment and Plan: repeat Trop was 117 which is much lower than it was, no further arrhythmias. Most likely Type 2 NSTEMI (6) COPD (chronic obstructive pulmonary disease): Assessment and Plan: History of lung cancer and multimyeloma. On Chronic Oxygen but require much more than baseline 2L NC. continue levaquin, nebs, steroids ;currently on Trelegy. continue duonebs. OPEP Qualifiers: COPD type: unspecified COPD Qualified Code(s): J44.9 - Chronic obstructive pulmonary disease, unspecified (7) Malnutrition: Assessment and Plan: encourage good diet Qualifiers: Malnutrition type: protein-calorie malnutrition Protein-calorie malnutrition severity: moderate Qualified Code(s): E44.0 - Moderate protein-calorie malnutrition (8) CAD (coronary artery disease): Assessment and Plan: Patient currently taking atorvastatin, will continue this, was placed on Eliquis so holding Aspirin for now. Nitro PRN. Qualifiers: Associated angina: without angina Coronary Disease-Associated Artery/Lesion type: [place] artery [place] vs. transplanted heart: [place] heart Qualified Code(s): I25.10 - Atherosclerotic heart disease of [place] coronary artery without angina pectoris (9) Hypertension: Assessment and Plan: continue Coreg 3.125mg BID Qualifiers: Hypertension type: primary hypertension Qualified Code(s): I10 - Essential (primary) hypertension (10) Depression with anxiety: Assessment and Plan: continue duloxetine (11) BPH (benign prostatic hyperplasia): Assessment and Plan: continue finasteride and flomax Qualifiers: Lower urinary tract symptom presence: symptoms absent Qualified Code(s): N40.0 - Benign prostatic hyperplasia without lower urinary tract symptoms Plan patient is a full code continue eliquis Patient still requiring vapotherm, will need 2-3 more days of hospital necessary care. Urinary Catheter Management Urinary Catheter Management Pure Wick: Cath placed during this visit: no
[2024-04-30 08:13] LABS: Troponin I High Sensitivity 117.1 pg/mL (4.0-76.1)
[2024-04-30] MEDS: CLONAZEPAM 0.5 MG TABLET 1 MG PO ×2 (08:15→20:50)
[2024-04-30] MEDS: ACETAMINOPHEN 500 MG TABLET 1000 MG PO (08:15)
[2024-04-30] MEDS: FUROSEMIDE 20 MG TABLET PO (08:16)
[2024-04-30] MEDS: DEXAMETHASONE 4 MG TABLET PO (08:16)
[2024-04-30] MEDS: DULOXETINE HCL 60 MG CAPSULE.DR PO ×2 (08:16→20:50)
[2024-04-30] MEDS: DOCUSATE SODIUM 100 MG CAPSULE 200 MG PO ×2 (08:16→20:50)
[2024-04-30] MEDS: FINASTERIDE 5 MG TABLET PO (08:17)
[2024-04-30] MEDS: GUAIFENESIN 200 MG/DEXTROMETHORPHAN 20 MG 10 ML UNIT DOSE CUP PO ×2 (08:17→20:51)
[2024-04-30] MEDS: APIXABAN 5 MG TABLET PO ×2 (08:17→20:50)
[2024-04-30] MEDS: CARVEDILOL 3.125 MG TABLET PO ×2 (08:17→20:50)
[2024-04-30] MEDS: LEVOFLOXACIN IN DEXTROSE 5 % 750 MG/150 ML PREMIX 100 MG IV (08:19)
--- NOTE | 2024-04-30 09:47 | PT.DAILY ---
Physical Therapy Daily Note PT Daily Note/Assess Start: 04/28/24 10:28 Freq: Status: Active Protocol: Document 04/30/24 09:46 HELIO (Rec: 04/30/24 09:47 HELIO [id number]) Visit Not Completed Visit Not Completed Visit Not Completed Due to: Other Other Reason Visit Not Completed Pt eating breakfast 1st attempt then with Dr. Lopez 2nd attempt. Will follow up with pt around 1100. Physical Therapy Daily Note/Assessment Time In/Time Out Time In 09:35 Time Out 09:35 Pain In Pain N/A Pain Out Pain N/A GG. Functional Abilities and Goals-Complete for Swing Bed Patients Only [id number]. Self-Care [id number]. Mobility
[2024-04-30] MEDS: REMDESIVIR 100 MG in 0.9 % SODIUM CHLORIDE 100 ML 200 MG IV (10:24)
[2024-04-30] MEDS: BUDESONIDE 0.5 MG/2 ML AMPULE NEB IH ×2 (10:59→23:22)
--- NOTE | 2024-04-30 11:10 | PT.DAILY ---
Physical Therapy Daily Note PT Daily Note/Assess Start: 04/28/24 10:28 Freq: Status: Active Protocol: Document 04/30/24 11:08 HELIO (Rec: 04/30/24 11:10 HELIO [id number]) Physical Therapy Daily Note/Assessment Time In/Time Out Time In 10:30 Time Out 10:45 Pain In Pain N/A Pain Out Pain N/A Subjective Subjective Sitting in BS chair on Vapotherm. Just finished OT. Agreeable to chair level ex. Fatigued. Therapeutic Exercise Time Therapeutic Exercise Minutes (minutes) 8 Therapeutic Exercise Units 1 Therapeutic Exercise Treatment Therapeutic Exercise Treatment Seated bilat LE strengthening ex complete 10x ea while sitting in BS chair. Pt able to carry conversation and complete ex while spo2 remains 92-94%. Remains in BS chair with respiratory therapy present. Total Physical Therapy Time Total Therapy Minutes 8 Total Physical Therapy Units 1 Summary Daily Note Summary More cooperative with PT today . Able to complete seated ex and carry conversation without sats dropping below 90%.
--- NOTE | 2024-04-30 11:16 | CM.NOTE ---
Rounds made with Dr. Lopez. Plan of care discussed with Mr. Low.
--- NOTE | 2024-04-30 15:40 | SWNOTE1 ---
SW sent [facility] updated physician note and let them know no discharge today.
--- NOTE | 2024-04-30 17:31 | PM.PLPN ---
Progress Note: A&P Assessment and Plan (1) Pneumonia due to severe acute respiratory syndrome coronavirus 2 (SARS-CoV-2): Assessment and Plan: 1. Acute viral pneumonia secondary to COVID?19. ?Continue current treatment. 2. Acute hypoxic respiratory failure. Secondary to the above. ?Patient remains on Vapotherm with some slight improvement, FiO2 has been weaned down to 40% on 40L/min.? Staff reports that the patient has been noncompliant with prone positioning.? The patient argues that he has been doing it.? I stated that 5 minutes is not long enough.? I recommended on/off every 2 hours.? He then stated he could not sleep like that.? I replied that I am not asking him to sleep prone, just when he is awake in bed, to lay prone for as long as he can.? He stated once again that he cannot sleep prone.? I again answered that I am not asking him to sleep prone.? He stated a third time that he cannot sleep prone.? I replied that I am not talking about him sleeping prone, just when he is awake in bed. 3. Acute exacerbation of COPD. ?Continue bronchodilators with a good pulmonary toilet.? Follow-up with Dr. Hernández outpatient. 4. Primary lung adenocarcinoma of the right upper lobe, s/p right upper lobectomy 04/24/2019, recurrence noted on EBUS of the right hilum 06/14/2022. ?Follow-up with Dr. Hernández and oncology outpatient. 5. NSTEMI type II secondary to acute illness. ?Follow-up with cardiology outpatient. 6. History of tobacco abuse. 45 pack-years, quit 2017.? He does not meet current LDCT screening criteria given his diagnosis of lung cancer. Plan As patient is clinically improving, will follow peripherally at this point. As above, patient is to follow-up with Dr. Hernández (pulmonary) outpatient. Subjective Subjective Interval history: Discussed case with RN and RT. Patient has not been compliant with prone positioning. RN states he was on his belly for about 5 minutes yesterday and then went back to on his back. He did sit up in the chair for a long period of time today. RT has been able to wean his FiO2 down on the Vapotherm from 50% to 40%?his SpO2 is currently 94%. He states he has a cough, but has difficulty expectorating. Denies any fevers chills or sweats. He feels he may be improving slightly. Exam Constitutional Vital Signs, click to edit/add: Last Vital Signs Temp 97.5 F L 04/30/24 16:00 Pulse 89 04/30/24 16:53 Resp 30 H 04/30/24 16:20 BP 148/77 H 04/30/24 15:57 Pulse Ox 93 L 04/30/24 16:53 O2 Del Method Vapotherm 04/30/24 16:53 O2 Flow Rate 40 04/30/24 16:53 FiO2 45 04/30/24 16:53 Documenting provider has reviewed patient's vital signs: yes Common normals: no apparent distress HENMT Other: wearing Vapotherm nasal cannula Chest Chest: symmetrical chest wall rise Respiratory Other: More breath sounds today, crackles sound a little bit more moist, especially in the right upper lung field. No wheezes. Breathing appears unlabored though he is tachypneic with a rate of 30. Cardio Rate: regular rate Rhythm: regular rhythm GI Inspection: normal to inspection Extremity Common normals: no clubbing, cyanosis or edema Neuro Motor exam: no tremor noted and no fasciculations Psych Other: I discussed several talking points regarding his progress and current treatment. He then asked questions of the same things I had just educated him on.
--- NOTE | 2024-04-30 18:06 | PC.NURSE ---
Pt attempted to lay in the prone position without assistance. Pt pressed his call light when he got into the prone position. This RN went into room and Vapotherm came out of his nose. Vapotherm placed back into nose in the proper position. SpO2 at this time 76-78%. Encouraged pt to take deep breaths and perform purse lip breathing. Pt O2 saturations minimally came up (83-85%) after waiting for approximately 10 minutes. Pt Vapotherm titrated up to 40L 50%. Pt O2 saturations came up within another 10 minutes. Encouraged pt to deep breathe and practice purse lip breathing. O2 sautrations now 93-94% on the 40L 50%.
[2024-04-30] MEDS: TAMSULOSIN HCL 0.4 MG CAPSULE 0.8 MG PO (20:50)
[2024-04-30] MEDS: HYDROCODONE/ACET 5-325 MG TABLET 2 TAB PO (20:50)
[2024-05-01] VITALS (75 sets, daily range): BP systolic 131–155; BP diastolic 73–86; PULSE 56–100; TEMP 36.4–36.8; O2SAT 76–100
[2024-05-01] MEDS: GABAPENTIN 300 MG CAPSULE 600 MG PO ×3 (05:20→20:47)
[2024-05-01] MEDS: HYDROCODONE/ACET 5-325 MG TABLET 2 TAB PO ×3 (05:20→20:48)
[2024-05-01] MEDS: IPRATROPIUM/ALBUTEROL SULFATE 3 ML AMPUL.NEB IH ×4 (05:22→22:15)
[2024-05-01 06:01] LABS: Hematocrit 33.2 % (42.0-54.0); Hemoglobin 11.1 g/dL (14.0-18.0); Mean Corpuscular HGB Conc 33.4 g/dL (29.9-35.2); Mean Corpuscular Hemoglobin 33.8 pg (25.9-34.0); Mean Corpuscular Volume 101.2 fL (80.0-94.0); Platelet Count 205 10^3/uL (150-450); Red Blood Count 3.28 10^6/uL (4.70-6.10); Red Cell Distribution Width 16.2 % (11.0-15.0)
[2024-05-01 06:17] LABS: Alanine Aminotransferase 65 U/L (16-63); Albumin Globulin Ratio 0.4; Albumin Level 2.2 g/dL (3.4-5.0); Alkaline Phosphatase 165 U/L (46-116); Anion Gap 14.5; Aspartate Amino Transferase 61 U/L (15-37); BUN Creatinine Ratio 34.2; Bilirubin Total 0.7 mg/dL (0.2-1.0); Calcium 8.9 mg/dL (8.5-10.1); Carbon Dioxide 27.1 mmol/L (21.0-32.0); Chloride 99 mmol/L (98-107); Estimated GFR (African America >60 (>=60 mL/min/1.73m^2); Estimated GFR (Non-African Ame >60 (>=60 mL/min/1.73m^2); Globulin 5.3 g/dL; Glucose 107 mg/dL (74-106); Potassium 3.6 mmol/L (3.5-5.1); Sodium 137 mmol/L (136-145); Total Protein 7.5 g/dL (6.4-8.2)
[2024-05-01 07:03] LABS: Lymphocytes Absolute Manual 1.62 10^3/uL (1.20-3.80); Monocytes Absolute Manual 0.18 10^3/uL (0.30-0.80)
--- NOTE | 2024-05-01 07:43 | PM.PN ---
Progress Note: Subjective Subjective Interval history: Patient is still very short of breath with conversing despite being on Vapotherm. Patient still refusing BIPAP or CPAP and is wanting to go to normal Nasal Cannula. He does continue to desaturate with moving and eating. He is currently at 50% FiO2. He quickly recovers. I have again discussed checking ABG on the patient this morning at which he is amendable, but He refuses BIPAP and/or Intubation so at this point there is no reason to check. I have ordered a chest X-ray today. Dexamethasone in combination with Remdesivir is the standard of care for hospitalized patients with COVID. Dexamethasone is the most potent glucocorticoid. I will continue the current course. Patient has had a CTA chest with no PE, he is currently on Eliquis. He is being treated for secondary pneumonia with Levaquin. Pulmonary doctor has also been consulted and agrees with current treatment plan, also recommended patient try to prone but patient will not. Unfortunately with patient's history of lung cancer, copd and chronic respiratory failure, he does not have much lung reserve at baseline and despite our best efforts his road to recovery may be longer than anticipated. Exam Narrative Exam Narrative: General: Patient is alert, and oriented to person, place and time with normal affect, proper hygiene, short of breath with conversing Skin: no visible rashes, or ulcers Head: atraumatic, acephalic Eyes: PERRLA, no nystagmus present, conjunctiva clear, no scleral icterus Ears: normal gross auditory acuity Heart: Normal rate and rhythm, no murmurs/rubs/gallops Lungs: no audible wheezes, diminished breath sounds all lung hoffmann Abdomen: Normal audible bowel sounds, no distension, No palpable masses, no organomegaly, no rebound/guarding/ or rigidity Musculoskeletal: no swelling bilateral lower extremities Neuro: CN II-X grossly intact Constitutional Vital Signs, click to edit/add: Last Vital Signs Temp 98 F 05/01/24 03:58 Pulse 61 05/01/24 06:04 Resp 18 05/01/24 05:23 BP 155/80 H 05/01/24 03:58 Pulse Ox 92 L 05/01/24 06:04 O2 Del Method Vapotherm 05/01/24 05:23 O2 Flow Rate 40 05/01/24 05:23 FiO2 50 05/01/24 05:23 Progress Note: Objective Labs Labs: Short CBC 05/01/24 Range/Units 05:37 WBC 9.0 (4.0-11.0) 10^3/uL Hgb 11.1 L (14.0-18.0) g/dL Hct 33.2 L (42.0-54.0) % Plt Count 205 (150-450) 10^3/uL BMP 05/01/24 05:37 Sodium 137 Potassium 3.6 Chloride 99 Carbon Dioxide 27.1 BUN 38.0 H Creatinine 1.11 Glucose 107 H Calcium 8.9 Liver Function 05/01/24 Range/Units 05:37 Total Bilirubin 0.7 (0.2-1.0) mg/dL AST 61 H (15-37) U/L ALT 65 H (16-63) U/L Alkaline Phosphatase 165 H (46-116) U/L Albumin 2.2 L (3.4-5.0) g/dL Progress Note: A&P Assessment and Plan (1) Pneumonia due to severe acute respiratory syndrome coronavirus 2 (SARS-CoV-2): Assessment and Plan: continue dexamethasone, Remdesivir, oxygen therapy. Patient refuses BIPAP, Cpap, intubation. Continue vapotherm, Chest Xray today to look for any worsening change/edema. continue pulmonary toilet, OPEP. Continue to encourage patient go prone when possible. (2) Acute respiratory failure with hypoxia: Assessment and Plan: see #1, continue levaquin IV. (3) Atrial fibrillation with rapid ventricular response: Assessment and Plan: currently NSR. continue coreg and Eliquis. (4) NSTEMI (non-ST elevated myocardial infarction): Assessment and Plan: recheck Troponin today. No active chest pain. Type 2 NSTEMI from lung issues. Will need stress test once recovered. (5) COPD (chronic obstructive pulmonary disease): Assessment and Plan: contributing to issues above. continue inhalers, nebs, oxygen Qualifiers: COPD type: unspecified COPD Qualified Code(s): J44.9 - Chronic obstructive pulmonary disease, unspecified (6) Malnutrition: Assessment and Plan: monitor electrolytes Qualifiers: Malnutrition type: protein-calorie malnutrition Protein-calorie malnutrition severity: moderate Qualified Code(s): E44.0 - Moderate protein-calorie malnutrition (7) Acute on chronic diastolic (congestive) heart failure: Assessment and Plan: ProBNP improving. On daily lasix 20mg PO. Monitor I&O's, fluid restriction. appears euvolemic on exam, check chest xray today to assess need for further diuresis (8) CAD (coronary artery disease): Assessment and Plan: continue statin, asprin, eliquis Qualifiers: Associated angina: without angina Coronary Disease-Associated Artery/Lesion type: [place] artery [place] vs. transplanted heart: [place] heart Qualified Code(s): I25.10 - Atherosclerotic heart disease of [place] coronary artery without angina pectoris (9) Hypertension: Assessment and Plan: continue coreg Qualifiers: Hypertension type: primary hypertension Qualified Code(s): I10 - Essential (primary) hypertension (10) Depression with anxiety: Assessment and Plan: continue duloxetine (11) BPH (benign prostatic hyperplasia): Assessment and Plan: continue flomax. Qualifiers: Lower urinary tract symptom presence: symptoms absent Qualified Code(s): N40.0 - Benign prostatic hyperplasia without lower urinary tract symptoms Plan Patient is a DNR CCA continue eliquis patient will need 2-3 more hospital days. Urinary Catheter Management Urinary Catheter Management Pure Wick: Cath placed during this visit: no
[2024-05-01] MEDS: DOCUSATE SODIUM 100 MG CAPSULE 200 MG PO ×2 (08:15→20:47)
[2024-05-01] MEDS: GUAIFENESIN 200 MG/DEXTROMETHORPHAN 20 MG 10 ML UNIT DOSE CUP PO ×2 (08:16→20:47)
[2024-05-01] MEDS: DEXAMETHASONE 4 MG TABLET PO (08:16)
[2024-05-01] MEDS: FUROSEMIDE 20 MG TABLET PO (08:16)
[2024-05-01] MEDS: DULOXETINE HCL 60 MG CAPSULE.DR PO ×2 (08:17→20:47)
[2024-05-01] MEDS: APIXABAN 5 MG TABLET PO ×2 (08:17→20:47)
[2024-05-01] MEDS: CARVEDILOL 3.125 MG TABLET PO ×2 (08:17→20:48)
[2024-05-01] MEDS: FINASTERIDE 5 MG TABLET PO (09:10)
--- NOTE | 2024-05-01 09:34 | REH.PTDLY ---
Physical Therapy Daily Note PT Daily Note/Assess Start: 04/28/24 10:28 Freq: Status: Active Protocol: Document 05/01/24 09:26 CHRISKAT (Rec[facility] 05[facility]01/24 09[id number] Physical Therapy Daily Note/Assessment Time In 08:50 Time Out 09:02 Subjective Pt on commode upon arrival, agreeable to therapy when done . Pt continues to be on vapotherm Therapeutic Exercise Minutes (minutes) 8 Therapeutic Exercise Units 1 Therapeutic Exercise Treatment Instructed in B LE seated exs in chair 10-15x ea for improved strength and mobility . Exs included ankle pumps and circles ea way. LAQ, marching, hip abd, hip add squeezes, rotating hip circles with B LEs one at at time. Therapeutic Activity Minutes (minutes) 3 Therapeutic Activity Units 0 Therapeutic Activity Comments Waited outside door for pt to be finished off commode with instructions to hit call light . However pt does not hit call light and when checking on pt he has Ind performed stand pivot transfer back to chair and is sitting in recliner. Trialed 3 sit to stands from chair SBA with pt being unsteady on last transfer and 'plops' back down into chair. Total Therapy Minutes 11 Total Physical Therapy Units 1 Daily Note Summary Pt fatigues with exs and transfers after so many repetitions. Limited to activity due to pt still being on vapotherm.
[2024-05-01] MEDS: BUDESONIDE 0.5 MG/2 ML AMPULE NEB IH ×2 (10:19→22:15)
[2024-05-01] MEDS: REMDESIVIR 100 MG in 0.9 % SODIUM CHLORIDE 100 ML 200 MG IV (10:27)
--- NOTE | 2024-05-01 11:36 | XR_ITS ---
The [address] [address] Patient Name: RAGHAVENDRA HEARD MRN: [id number] date: 1945 Sex: M Assigned Patient Location: ICU Current Patient Location: ICU Accession/Order Number: [id number] Exam Date: 05/01/2024 11:45 Report Date: 05/01/2024 12:11 At the request of: RAHEL PADRON Procedure: XR chest 1V EXAM: XR chest 1V HISTORY: shortness of breath, hypoxia COMPARISON: 04/28/2024 TECHNIQUE: AP portable erect FINDINGS: LUNGS: Low lung volumes. Diffuse left lung infiltrates with air bronchograms, grossly stable. Right perihilar and basilar infiltrates stable VASCULATURE: No increased pulmonary vasculature. PLEURA: No pneumothorax, effusion, or pleural thickening. CARDIAC: No cardiomegaly or cardiac silhouette abnormality. MEDIASTINUM: No visible mass or adenopathy. BONES: No fracture or visible bone lesion. OTHER: Right Port-A-Cath tip at the cavoatrial junction XR/XR chest 1V IMPRESSION: Moderate bilateral parenchymal infiltrates, left greater than right, grossly stable Electronically authenticated by: CHANTAL MALONE Date: 05/01/2024 12:11
--- NOTE | 2024-05-01 11:48 | SWNOTE1 ---
Pt is still on vapotherm. SW to speak with pt about going to rehab at discharge.
--- NOTE | 2024-05-01 11:58 | CM.NOTE ---
Rounds made with Dr. Mikaela Lopez. Dr. Lopez discussed with Pravin his current oxygen requirements and desaturations and discussed trying BIPAP. Pravin verbalized understanding and continues to refuse BIPAP and also does not want intubation. No plans for discharge today.
--- NOTE | 2024-05-01 12:55 | SWNOTE1 ---
SW went to speak with pt, but he was sleeping at the time and needed to rest. SW to stop back later today or tomorrow.
[2024-05-01] MEDS: CLONAZEPAM 0.5 MG TABLET 1 MG PO ×2 (14:37→20:47)
--- NOTE | 2024-05-01 15:26 | SWNOTE1 ---
SW stopped in to converse with pt about rehab. Pt voiced he thinks he will be strong enough to return home and that he has been doing exercises here with therapy. SW let him know that SW does have him set up with [facility], but if he went to rehab at nursing facility, it would be more therapy. JR explained to patient that for his safety he may benefit from going to rehab for a short term rehab stay to get stronger. He asked if he would have to stay there, SW let him know that he would until he is strong enough to go home. Pt voiced he is not opposed to it, but he stated family is coming to town for a baby shower early May and he had things to get around. SW did ask pt how he was going to get around at home, etc. Pt was not sure on this answer. JR asked pt if he was willing to go to rehab, he voiced he is not opposed. SW to stop back in tomorrow to discuss rehab again.
[2024-05-01] MEDS: TAMSULOSIN HCL 0.4 MG CAPSULE 0.8 MG PO (20:47)
[2024-05-02] VITALS (87 sets, daily range): BP systolic 111–154; BP diastolic 66–75; PULSE 62–106; TEMP 36.4–37; O2SAT 69–100
[2024-05-02] MEDS: IPRATROPIUM/ALBUTEROL SULFATE 3 ML AMPUL.NEB IH ×4 (04:12→23:44)
[2024-05-02] MEDS: GABAPENTIN 300 MG CAPSULE 600 MG PO ×3 (05:16→21:00)
[2024-05-02] MEDS: CLONAZEPAM 0.5 MG TABLET 1 MG PO (05:16)
[2024-05-02 06:04] LABS: Hematocrit 32.3 % (42.0-54.0); Mean Corpuscular HGB Conc 34.1 g/dL (29.9-35.2); Mean Corpuscular Hemoglobin 34.3 pg (25.9-34.0); Mean Corpuscular Volume 100.6 fL (80.0-94.0); Mean Platelet Volume 11.2 fL (9.5-13.5); Platelet Count 170 10^3/uL (150-450); Red Blood Count 3.21 10^6/uL (4.70-6.10); White Blood Count 10.1 10^3/uL (4.0-11.0)
[2024-05-02 06:24] LABS: Alanine Aminotransferase 53 U/L (16-63); Albumin Globulin Ratio 0.4; Albumin Level 2.1 g/dL (3.4-5.0); Alkaline Phosphatase 156 U/L (46-116); Anion Gap 15.2; Aspartate Amino Transferase 41 U/L (15-37); BUN Creatinine Ratio 35.9; Calcium 8.4 mg/dL (8.5-10.1); Carbon Dioxide 26.6 mmol/L (21.0-32.0); Chloride 100 mmol/L (98-107); Estimated GFR (African America >60 (>=60 mL/min/1.73m^2); Estimated GFR (Non-African Ame >60 (>=60 mL/min/1.73m^2); Globulin 5.2 g/dL; Glucose 87 mg/dL (74-106); Potassium 3.8 mmol/L (3.5-5.1); Sodium 138 mmol/L (136-145); Total Protein 7.3 g/dL (6.4-8.2)
[2024-05-02 07:02] LABS: Lymphocytes Absolute Manual 2.32 10^3/uL (1.20-3.80); Segmented Neut Absolute Manual 7.37 10^3/uL (1.4-6.5)
--- NOTE | 2024-05-02 08:00 | PM.PN ---
Progress Note: Subjective Subjective Interval history: Patient is very restless today. He has been pulling off his vapotherm tubing, he has been trying to get himself out of bed and almost falling. He appears more altered today and worn out. He is still very short or breath. I have had several conversations about BIPAP with him and he refuses and intubation. Will check ABG today to see how hypoxic he is. I have called and spoke with his , Radha on the phone and let her know that he has declined today and with him refusing BIPAP we are limited to Vapotherm. She understands. I also discussed his poor prognosis and lack of improvement. Troponin was elevated to 403. I have had cardiology evaluate him and recommended treating underlying pulmonary issues. He has several episodes of hypoxia. He describes his current state as not feeling good but is not specific. Chest Xray 05/01/24 showed stability. WBC's 10.1, HB 11.0, Cr 0.92, blood cultures negative Exam Narrative Exam Narrative: General: Patient is alert, and oriented to person, place and time with normal affect, proper hygiene, short of breath with conversing Skin: no visible rashes, or ulcers Head: atraumatic, acephalic Eyes: PERRLA, no nystagmus present, conjunctiva clear, no scleral icterus Ears: normal gross auditory acuity Heart: Normal rate and rhythm, no murmurs/rubs/gallops Lungs: no audible wheezes, diminished breath sounds all lung hoffmann Abdomen: Normal audible bowel sounds, no distension, No palpable masses, no organomegaly, no rebound/guarding/ or rigidity Musculoskeletal: no swelling bilateral lower extremities Neuro: CN II-X grossly intact Constitutional Vital Signs, click to edit/add: Last Vital Signs Temp 97.6 F 05/02/24 04:02 Pulse 73 05/02/24 06:47 Resp 18 05/02/24 04:12 BP 154/70 H 05/02/24 04:05 Pulse Ox 96 05/02/24 04:12 O2 Del Method Vapotherm 05/02/24 04:12 O2 Flow Rate 40 05/02/24 04:12 FiO2 50 05/02/24 04:12 Progress Note: Objective Labs Labs: Short CBC 05/02/24 Range/Units 05:25 WBC 10.1 (4.0-11.0) 10^3/uL Hgb 11.0 L (14.0-18.0) g/dL Hct 32.3 L (42.0-54.0) % Plt Count 170 (150-450) 10^3/uL BMP 05/02/24 05:25 Sodium 138 Potassium 3.8 Chloride 100 Carbon Dioxide 26.6 BUN 33.0 H Creatinine 0.92 Glucose 87 Calcium 8.4 L Liver Function 05/02/24 Range/Units 05:25 Total Bilirubin 1.0 (0.2-1.0) mg/dL AST 41 H (15-37) U/L ALT 53 (16-63) U/L Alkaline Phosphatase 156 H (46-116) U/L Albumin 2.1 L (3.4-5.0) g/dL Progress Note: A&P Assessment and Plan (1) Pneumonia due to severe acute respiratory syndrome coronavirus 2 (SARS-CoV-2): Assessment and Plan: continue dexamethasone, Remdesivir, oxygen therapy. Patient refuses BIPAP, Cpap, intubation. Continue vapotherm, CXR shows stability. continue pulmonary toilet, OPEP. Continue to encourage patient go prone when possible. (2) Acute respiratory failure with hypoxia: Assessment and Plan: see #1, continue levaquin IV. will check ABG today with worsening mentation (3) Atrial fibrillation with rapid ventricular response: Assessment and Plan: currently NSR. continue coreg and Eliquis. (4) NSTEMI (non-ST elevated myocardial infarction): Assessment and Plan: No active chest pain. Type 2 NSTEMI from lung issues. Will need stress test once recovered. Treating underlying pulmonary issues as requested by history instructor (5) COPD (chronic obstructive pulmonary disease): Assessment and Plan: contributing to issues above. continue inhalers, nebs, oxygen Qualifiers: COPD type: unspecified COPD Qualified Code(s): J44.9 - Chronic obstructive pulmonary disease, unspecified (6) Malnutrition: Assessment and Plan: monitor electrolytes Qualifiers: Malnutrition type: protein-calorie malnutrition Protein-calorie malnutrition severity: moderate Qualified Code(s): E44.0 - Moderate protein-calorie malnutrition (7) Acute on chronic diastolic (congestive) heart failure: Assessment and Plan: continue On daily lasix 20mg PO. Monitor I&O's, fluid restriction. appears euvolemic on exam, no pulmonary edema on Chest Xray (8) CAD (coronary artery disease): Assessment and Plan: continue statin, asprin, eliquis Qualifiers: Associated angina: without angina Coronary Disease-Associated Artery/Lesion type: [place] artery [place] vs. transplanted heart: [place] heart Qualified Code(s): I25.10 - Atherosclerotic heart disease of [place] coronary artery without angina pectoris (9) Hypertension: Assessment and Plan: continue coreg Qualifiers: Hypertension type: primary hypertension Qualified Code(s): I10 - Essential (primary) hypertension (10) Depression with anxiety: Assessment and Plan: continue duloxetine (11) BPH (benign prostatic hyperplasia): Assessment and Plan: continue flomax. Qualifiers: Lower urinary tract symptom presence: symptoms absent Qualified Code(s): N40.0 - Benign prostatic hyperplasia without lower urinary tract symptoms Plan Patient is a DNR CCA continue eliquis patient's condition is worsening, prognosis is poor Urinary Catheter Management Urinary Catheter Management Pure Wick: Cath placed during this visit: no
--- NOTE | 2024-05-02 08:48 | SWNOTE1 ---
2nd notice of Important Message from Medicare reviewed with pt, no questions or concerns at this time.
[2024-05-02] MEDS: DULOXETINE HCL 60 MG CAPSULE.DR PO ×2 (09:43→20:57)
[2024-05-02] MEDS: APIXABAN 5 MG TABLET PO ×2 (09:43→20:56)
[2024-05-02] MEDS: GUAIFENESIN 200 MG/DEXTROMETHORPHAN 20 MG 10 ML UNIT DOSE CUP PO ×2 (09:43→20:58)
[2024-05-02] MEDS: LEVOFLOXACIN IN DEXTROSE 5 % 750 MG/150 ML PREMIX 100 MG IV (09:43)
[2024-05-02] MEDS: CARVEDILOL 3.125 MG TABLET PO ×2 (09:43→20:57)
[2024-05-02] MEDS: DOCUSATE SODIUM 100 MG CAPSULE 200 MG PO (09:43)
[2024-05-02] MEDS: FUROSEMIDE 20 MG TABLET PO (09:43)
[2024-05-02] MEDS: FINASTERIDE 5 MG TABLET PO (09:43)
[2024-05-02] MEDS: DEXAMETHASONE 4 MG TABLET PO (09:44)
[2024-05-02] MEDS: HYDROXYZINE PAMOATE 25 MG CAPSULE PO ×2 (10:12→20:56)
--- NOTE | 2024-05-02 10:15 | PT.DAILY ---
Physical Therapy Daily Note PT Daily Note/Assess Start: 04/28/24 10:28 Freq: Status: Active Protocol: Document 05/02/24 10:08 HELIO (Rec: 05/02/24 10:15 HELIO [id number]) Visit Not Completed Visit Not Completed Visit Not Completed Due to: Medical instability,Nursing request to hold,Other Other Reason Visit Not Completed Consult with nursing and Dr. Lopez - nathaniel PT. Pt has been noncompliant and oxygen level has been dropping with activity and pt is becoming agitated. Physical Therapy Daily Note/Assessment Time In/Time Out Time In 10:00 Time Out 10:02 GG. Functional Abilities and Goals-Complete for Swing Bed Patients Only [id number]. Self-Care [id number]. Mobility
[2024-05-02] MEDS: BUDESONIDE 0.5 MG/2 ML AMPULE NEB IH ×2 (11:02→23:44)
--- NOTE | 2024-05-02 11:30 | CM.NOTE ---
Rounds made with Dr. Lopez. No plan for discharge today.
[2024-05-02 11:53] LABS: ABG PCO2 36.4 mmHg (35.0-45.0); Allen Test POSITIVE (POSITIVE); Base Excess ABG 0.4 mmol/L (-2.0-2.0); HCO3 ABG 24.6 mmol/L (22.0-26.0); Liters per Minute 40; O2 Mode VAPO THERM; Oxygen Saturation ABG 95.9 %; PO2 ABG 78.6 mmHg (80.0-100.0); pH ABG 7.438 (7.350-7.450)
[2024-05-02 11:54] LABS: Fractionated Inspired Oxygen 50 %; Puncture Site LEFT RADIAL
[2024-05-02] MEDS: REMDESIVIR 100 MG in 0.9 % SODIUM CHLORIDE 100 ML 200 MG IV (12:50)
--- NOTE | 2024-05-02 12:53 | SWNOTE1 ---
Pt still requiring vapotherm at this time. [facility] called and SW updated them. SW to re-assess on Sunday
[2024-05-02] MEDS: TAMSULOSIN HCL 0.4 MG CAPSULE 0.8 MG PO (21:00)
[2024-05-02] MEDS: ALBUTEROL SULFATE 2.5 MG/3 ML VIAL NEB IH (21:37)
--- NOTE | 2024-05-02 21:56 | RESP.RT ---
Pt had coughing spell and became short of breath. Sp02 dropped down to the 70's on Vapotherm 40L 50%. Respiratory rate increased to the 40's. Encouraged pt to take slow deep breaths. Pt recovered after approx 10 minutes. Spo2 increased to 94%, RR 34, HR 75.
[2024-05-03] VITALS (71 sets, daily range): BP systolic 109–159; BP diastolic 70–96; PULSE 69–95; TEMP 36.2–37.7; O2SAT 75–100
[2024-05-03] MEDS: CLONAZEPAM 0.5 MG TABLET 1 MG PO (00:59)
[2024-05-03 03:57] LABS: Basophils Percent Auto 0.1 % (0.2-2.0); Eosinophils Percent Auto 0.1 % (0.9-7.0); Hematocrit 31.9 % (42.0-54.0); Hemoglobin 10.8 g/dL (14.0-18.0); Immature Granulocytes Pct Auto 0.7 % (0.0-0.5); Lymphocytes Absolute Auto 1.2 10^3/uL (1.2-3.8); Lymphocytes Percent Auto 8.1 % (20.5-60.0); Mean Corpuscular HGB Conc 33.9 g/dL (29.9-35.2); Mean Corpuscular Hemoglobin 34.3 pg (25.9-34.0); Mean Corpuscular Volume 101.3 fL (80.0-94.0); Mean Platelet Volume 11.4 fL (9.5-13.5); Monocytes Absolute Auto 0.7 10^3/uL (0.3-0.8); Monocytes Percent Auto 4.5 % (1.7-12.0); Neutrophils Absolute Auto 12.5 10^3/uL (1.4-6.5); Neutrophils Percent Auto 86.5 % (43.0-75.0); Platelet Count 178 10^3/uL (150-450); Red Blood Count 3.15 10^6/uL (4.70-6.10); White Blood Count 14.4 10^3/uL (4.0-11.0)
[2024-05-03 04:13] LABS: Alanine Aminotransferase 41 U/L (16-63); Albumin Globulin Ratio 0.4; Albumin Level 2.1 g/dL (3.4-5.0); Alkaline Phosphatase 144 U/L (46-116); Anion Gap 13.3; Aspartate Amino Transferase 27 U/L (15-37); BUN Creatinine Ratio 31.4; Calcium 8.9 mg/dL (8.5-10.1); Carbon Dioxide 26.5 mmol/L (21.0-32.0); Chloride 101 mmol/L (98-107); Estimated GFR (African America >60 (>=60 mL/min/1.73m^2); Estimated GFR (Non-African Ame >60 (>=60 mL/min/1.73m^2); Globulin 5.4 g/dL; Glucose 103 mg/dL (74-106); Potassium 3.8 mmol/L (3.5-5.1); Sodium 137 mmol/L (136-145); Total Protein 7.5 g/dL (6.4-8.2)
[2024-05-03] MEDS: IPRATROPIUM/ALBUTEROL SULFATE 3 ML AMPUL.NEB IH ×4 (04:30→23:47)
[2024-05-03] MEDS: FUROSEMIDE 40 MG/4 ML VIAL IVP ×3 (04:48→21:47)
--- NOTE | 2024-05-03 05:00 | XR_ITS ---
The [address] [address] Patient Name: RAGHAVENDRA HEARD MRN: [id number] date: 1945 Sex: M Assigned Patient Location: ICU Current Patient Location: ICU Accession/Order Number: [id number] Exam Date: 05/03/2024 05:30 Report Date: 05/03/2024 06:06 At the request of: MEGAN QUINONEZ Procedure: XR chest 1V EXAMINATION: XR chest 1V HISTORY: hypoxia COMPARISON: XR chest 05/01/2024 FINDINGS: LUNGS: Mild right, moderate left diffuse pulmonary infiltrates. VASCULATURE: No increased pulmonary vasculature. PLEURA: Blunting of costophrenic angles bilaterally is favoring small to moderate pleural effusions. CARDIAC: Stable cardiomegaly. MEDIASTINUM: No visible mass or adenopathy. BONES: No fracture or visible bone lesion. OTHER: Stable right Port-A-Cath. XR/XR chest 1V IMPRESSION: 1. Bilateral pulmonary infiltrates, slightly improved. 2. Suspect small to moderate bilateral pleural effusions; new versus better seen on today's study. Electronically authenticated by: ARPIT DIEZ Date: 05/03/2024 06:06
--- NOTE | 2024-05-03 05:48 | PC.NURSE ---
Royer Bailey made aware that patient stated he feels really tired. Also made aware of RR maintaining 35-40 per minute. Patient continues to not want bipap at this time. Royer Bailey recommended discussing case with RT for further recommendations.
[2024-05-03] MEDS: DULOXETINE HCL 60 MG CAPSULE.DR PO (09:34)
[2024-05-03] MEDS: GUAIFENESIN 200 MG/DEXTROMETHORPHAN 20 MG 10 ML UNIT DOSE CUP PO (09:34)
[2024-05-03] MEDS: FINASTERIDE 5 MG TABLET PO (09:34)
[2024-05-03] MEDS: CARVEDILOL 3.125 MG TABLET PO (09:34)
[2024-05-03] MEDS: APIXABAN 5 MG TABLET PO (09:34)
[2024-05-03] MEDS: ASPIRIN 81 MG TAB.CHEW PO (09:36)
--- NOTE | 2024-05-03 10:24 | REH.PTDLY ---
Physical Therapy Daily Note PT Daily Note/Assess Start: 04/28/24 10:28 Freq: Status: Active Protocol: Document 05/03/24 10:23 KSTEINKAT (Rec: 05/03/24 10:24 KSTEINKAT No Response) Visit Not Completed Visit Not Completed Due to: Nursing request to hold Other Reason Visit Not Completed Pt still declining, Vira RN requests to hold therapy. is coming in to discuss pt status. Physical Therapy Daily Note/Assessment Time In 10:22 Time Out 10:23
[2024-05-03] MEDS: BUDESONIDE 0.5 MG/2 ML AMPULE NEB IH ×2 (10:27→23:47)
[2024-05-03 10:36] LABS: ABG PCO2 38.1 mmHg (35.0-45.0); pH ABG 7.447 (7.350-7.450)
[2024-05-03 10:37] LABS: Allen Test POSITIVE (POSITIVE); Base Excess ABG 2.3 mmol/L (-2.0-2.0); HCO3 ABG 26.3 mmol/L (22.0-26.0); Oxygen Saturation ABG 89.9 %
[2024-05-03 10:39] LABS: Liters per Minute 40; O2 Mode VAPOTHERM; PO2 ABG 58.4 mmHg (80.0-100.0)
[2024-05-03 10:40] LABS: Fractionated Inspired Oxygen 50 %; Puncture Site RR
--- NOTE | 2024-05-03 12:27 | P.IMPN_ITS ---
Progress Note: A&P Assessment and Plan (1) Pneumonia due to severe acute respiratory syndrome coronavirus 2 (SARS-CoV-2): Assessment and Plan: Increased Decadron to TID. c/w duonebs. (2) Acute respiratory failure with hypoxia: Assessment and Plan: Persistent hypoxia, not improving. On high flow O2. (3) Acute on chronic diastolic (congestive) heart failure: Assessment and Plan: Started on IV lasix 40 q12. (4) Atrial fibrillation with rapid ventricular response: Assessment and Plan: In NSR. On coreg and Eliquis (5) NSTEMI (non-ST elevated myocardial infarction): Assessment and Plan: Likely T2 Demand ischemia. no acute intervention keith now that patient is hospice. (6) COPD (chronic obstructive pulmonary disease): Assessment and Plan: On IV decadron/duonebs. Qualifiers: COPD type: unspecified COPD Qualified Code(s): J44.9 - Chronic obstructive pulmonary disease, unspecified (7) Malnutrition: Assessment and Plan: Minimal to No PO intake. Now coughing with regular diet. Diet changed to pureed with thickened liquid. Added ensure. Qualifiers: Malnutrition type: protein-calorie malnutrition Protein-calorie malnutrition severity: moderate Qualified Code(s): E44.0 - Moderate protein- calorie malnutrition (8) CAD (coronary artery disease): Assessment and Plan: c/w ASA, statin. Qualifiers: Coronary Disease-Associated Artery/Lesion type: [place] artery [place] vs. transplanted heart: [place] heart Associated angina: without angina Qualified Code(s): I25.10 - Atherosclerotic heart disease of [place] coronary artery without angina pectoris (9) Hypertension: Assessment and Plan: BP stable. C/w coreg/amlodipine Qualifiers: Hypertension type: primary hypertension Qualified Code(s): I10 - Essential (primary) hypertension (10) Depression with anxiety: Assessment and Plan: C/w Cymbalta, clonazepam (11) BPH (benign prostatic hyperplasia): Assessment and Plan: C/w finasteride. Qualifiers: Lower urinary tract symptom presence: symptoms absent Qualified Code( s): N40.0 - Benign prostatic hyperplasia without lower urinary tract symptoms Plan Family meeting today with patients , brother and his daughter. Goals of care discussed. Hospice consulted as per patient and her 's wishes. Will d/c tele, labs. Added Morphine for comfort care measures. Internal Medicine - PN: Subj Subjective Interval history: Seen and examined. Lethargic/ill appearing. Patients responds/answers and seems to have given up and would like to meet his Lord Overnight, given IV lasix as he appeared volume overloaded on exam Exam Constitutional Vital Signs, click to edit/add: Last Vital Signs Temp 99.8 F 05/03/24 08:00 Pulse 73 05/03/24 12:10 Resp 26 H 05/03/24 12:10 BP 140/79 05/03/24 12:00 Pulse Ox 96 05/03/24 12:10 O2 Del Method High Flow Nasal Cannula 05/03/24 12:00 O2 Flow Rate 40 05/03/24 12:00 FiO2 50 05/03/24 12:00 General appearance: lethargic, ill appearing and frail appearing Other: Laying in bed with his eyes closed. Respiratory Effort & inspection: decreased respiratory effort Other: Conversational dyspnea noted. Rales/rhonchi throughout lung hoffmann. Patient is also tachypneic. Cardio Common normals: regular rate, regular rhythm, S1 normal heart sound and S2 normal heart sound Jugular venous distention: JVD Extremity Common normals: normal to inspection and full ROM Neuro Common normals: oriented x3, moves all extremities and no focal motor deficits Psych Common normals: mental status grossly normal, thought process normal, denies homicidal ideation and denies suicidal ideation Internal Medicine - PN: Obj Da Labs Labs: Laboratory Results - last 24 hr 05/03/24 05/03/24 03:49 10:28 WBC 14.4 H RBC 3.15 L Hgb 10.8 L Hct 31.9 L MCV 101.3 H MCH 34.3 H MCHC 33.9 RDW 16.0 H Plt Count 178 MPV 11.4 Neut % (Auto) 86.5 H Lymph % (Auto) 8.1 L [place] % (Auto) 4.5 Eos % (Auto) 0.1 L Baso % (Auto) 0.1 L Neut # (Auto) 12.5 H Lymph # (Auto) 1.2 [place] # (Auto) 0.7 Eos # (Auto) 0.0 Baso # (Auto) 0.0 Abs Immat Gran (auto) 0.10 H Imm/Tot Granulo (auto) 0.7 H Puncture Site Rr ABG pH 7.447 ABG pCO2 38.1 ABG pO2 58.4 L* ABG HCO3 26.3 H ABG O2 Saturation 89.9 ABG Base Excess 2.3 H Armond Test Positive O2 Liters/Min 40 FiO2 50 Sodium 137 Potassium 3.8 Chloride 101 Carbon Dioxide 26.5 Anion Gap 13.3 BUN 33.0 H Creatinine 1.05 Est GFR ( Amer) >60 Est GFR (Non-Af Amer) >60 BUN/Creatinine Ratio 31.4 Glucose 103 Calcium 8.9 Total Bilirubin 1.0 AST 27 ALT 41 Alkaline Phosphatase 144 H NT-Pro-B Natriuret Pep 627.0 Total Protein 7.5 Albumin 2.1 L Globulin 5.4 Albumin/Globulin Ratio 0.4 Urinary Catheter Management Urinary Catheter Management Pure Wick: Cath placed during this visit: no
--- NOTE | 2024-05-03 12:34 | W.ACP ---
Advance Care Planning Advance Care Planning Discussion Does patient have a terminal or chronic,progressive disease such that prognosis is less than 6 months: Yes Advance care planning discussion participants: patient, patient surrogate decision maker (.) and other family member (Brother and daughter.) Advance care planning discussion summary: 79 y o male with hx of severe COPD, lung cancer s/p lobectomy is currently being treated for acute resp failure with hypoxia sec to COVID PNA and acute on chronic diastolic HF. He is currently on high flow O2 and requiring 50%FiO2. He is lethargic, exhausted and somnolent. He also has minimal to no PO intake. Patient does not want to use BIPAP and refusing Invasive mechanical ventilation if needed. He does not want any aggressive measures and feels that his time has come. Given his comorbid conditions and acute illness, it seems very likely that this is his terminal illness. Detailed discussion on patient's goals of care, prognosis, end of life care, hospice/palliative care today in a family meeting in the Chapel with patient's daughter, and his brother and all of his family members wished to pursue only CC measures and were in agreement to consult hospice based on patient's personal wishes and prior conversations with him in the past. Physician Time Time Spent Time Spent: More than 15 minutes spent with family (Approximately 20 minutes spent with patient and family on advanced care planning today. )
[2024-05-03] MEDS: DEXAMETHASONE SOD PHOS 100 MG/10 ML MDV 6 MG IV ×2 (14:18→21:47)
[2024-05-03] MEDS: GABAPENTIN 300 MG CAPSULE PO (14:18)
[2024-05-03] MEDS: MORPHINE SULFATE 2 MG/ML SYRINGE IV (14:19)
--- NOTE | 2024-05-03 16:19 | PC.NURSE ---
pt stable and tranferred to med surg rm 216 at 1600, report given to Karo ODOM
[2024-05-04] VITALS (16 sets, daily range): BP systolic 158; BP diastolic 97; PULSE 67–87; TEMP 36.3; O2SAT 77–98
[2024-05-04] MEDS: IPRATROPIUM/ALBUTEROL SULFATE 3 ML AMPUL.NEB IH ×3 (05:35→17:14)
[2024-05-04] MEDS: DEXAMETHASONE SOD PHOS 100 MG/10 ML MDV 6 MG IV ×2 (05:35→13:27)
[2024-05-04] MEDS: MORPHINE SULFATE 2 MG/ML SYRINGE IV ×3 (06:08→16:21)
[2024-05-04] MEDS: HYDROXYZINE PAMOATE 25 MG CAPSULE PO (07:47)
[2024-05-04] MEDS: LEVOFLOXACIN IN DEXTROSE 5 % 750 MG/150 ML PREMIX 100 MG IV (08:00)
[2024-05-04] MEDS: GUAIFENESIN 200 MG/DEXTROMETHORPHAN 20 MG 10 ML UNIT DOSE CUP PO (08:00)
[2024-05-04] MEDS: ASPIRIN 81 MG TAB.CHEW PO (08:01)
[2024-05-04] MEDS: FINASTERIDE 5 MG TABLET PO (08:01)
[2024-05-04] MEDS: APIXABAN 5 MG TABLET PO (08:01)
[2024-05-04] MEDS: DULOXETINE HCL 60 MG CAPSULE.DR PO (08:01)
[2024-05-04] MEDS: CARVEDILOL 3.125 MG TABLET PO (08:01)
[2024-05-04] MEDS: FUROSEMIDE 40 MG/4 ML VIAL IVP (08:38)
[2024-05-04] MEDS: LORAZEPAM 2 MG/ML VIAL 1 MG IV ×3 (09:27→17:20)
[2024-05-04] MEDS: BUDESONIDE 0.5 MG/2 ML AMPULE NEB IH (11:00)
--- NOTE | 2024-05-04 13:57 | P.DS_ITS ---
DS: Providers Provider Date of admission: 04/27/24 12:51 Primary care physician: PRERNA VALENTINO Admitting clinician: Elizabeth Lopez Attending physician on admission: Elizabeth Lopez Consults: 04/27/24 11:58 Occupational Therapy Eval and Treat Routine Reason for consultation: weakness Has provider been notified: No Physical Therapy Eval and Treat Routine Reason for consultation: weakness Has provider been notified: No 04/28/24 07:29 Consult to Cardiology Routine Reason for consultation: elevated trop, acute chf, afib Has provider been notified: No 04/28/24 07:42 Consult to Pulmonology Routine Consulting Provider: Shailesh Berrios Reason for consultation: multifocal pneumonia, COVID, on vapotherm Has provider been notified: Yes 05/03/24 11:24 Consult to Hospice Routine Reason for consultation: End of Life Care Attending physician on discharge: Shaikh Ana Maria Discharging clinician: Shaikh Ana Maria Anticipated date of discharge: 05/04/24 DS: Diagnosis Discharge Diagnosis (1) Pneumonia due to severe acute respiratory syndrome coronavirus 2 (SARS-CoV-2): (2) Acute respiratory failure with hypoxia: (3) Acute on chronic diastolic (congestive) heart failure: (4) Atrial fibrillation with rapid ventricular response: (5) NSTEMI (non-ST elevated myocardial infarction): (6) COPD (chronic obstructive pulmonary disease): Qualifiers: COPD type: unspecified COPD Qualified Code(s): J44.9 - Chronic obstructive pulmonary disease, unspecified (7) Malnutrition: Qualifiers: Malnutrition type: protein-calorie malnutrition Protein-calorie malnutrition severity: moderate Qualified Code(s): E44.0 - Moderate protein- calorie malnutrition (8) CAD (coronary artery disease): Qualifiers: Coronary Disease-Associated Artery/Lesion type: [place] artery [place] vs. transplanted heart: [place] heart Associated angina: without angina Qualified Code(s): I25.10 - Atherosclerotic heart disease of [place] coronary artery without angina pectoris (9) Hypertension: Qualifiers: Hypertension type: primary hypertension Qualified Code(s): I10 - Essential (primary) hypertension (10) Depression with anxiety: (11) BPH (benign prostatic hyperplasia): Qualifiers: Lower urinary tract symptom presence: symptoms absent Qualified Code(s): N40.0 - Benign prostatic hyperplasia without lower urinary tract symptoms DS: Summary Hospital Course Hospital Course: 79 y o male presented to ED with worsening SOB over past few days. He was found to have acute resp failure with hypoxia sec to Multifocal COVID PNA. He init ially required only 2 LO2 via NC but subsequently got worse with worsening hypoxia, increased work of breathing and was transferred to ICU. Patient could not/would not use BIPAP/CPAP and refused endotracheal intubation. He intermittently would agree to use high flow Oxygen. While his Oxygen/pulse Ox was reasonably at goal on it, he continued to have increased work of breathing/tachypnea. He also developed afib with RVR that was new with no known prior hx of Afib. He converted to NSR and was started on Eliquis for stroke px. When I took over his care, I started him on IV lasix as he seemed volume overload clinically. It was felt that patient had given up and did not want to continue current aggressive course of treatment. Discussed goals of care, end of life with patient and his family. Hospice was consulted. Patient was evaluated by hospice today and he was accepted for inpatient hospice. Patient is weaned off of vapotherm and is doing reasonably well with pulse Ox above 90, on NRB. He is stable for discharge to inpatient hospice. Care plan d/w patient's RN, patient himself, manager hospice and patient's family. Time Spent with Patient Time attestation: Total time spent providing and/or coordinating discharge services: Time spent: greater than 30 minutes Exam Constitutional Vital Signs, click to edit/add: Last Vital Signs Temp 97.3 F L 05/04/24 04:00 Pulse 85 05/04/24 11:08 Resp 20 05/04/24 05:40 BP 158/97 H 05/04/24 04:00 Pulse Ox 95 05/04/24 12:10 O2 Del Method Nonrebreather 05/04/24 12:10 O2 Flow Rate 15 05/04/24 12:10 FiO2 50 05/04/24 10:50 General appearance: cooperative, ill appearing and frail appearing Respiratory Effort & inspection: decreased respiratory effort Other: Conversational dyspnea noted. Rales/rhonchi throughout lung hoffmann. Patient is also tachypneic. However, he looked better today with improvement in resp status overall. Cardio Common normals: regular rate, regular rhythm, S1 normal heart sound and S2 normal heart sound Jugular venous distention: JVD Extremity Common normals: normal to inspection and full ROM Neuro Common normals: oriented x3, moves all extremities and no focal motor deficits Psych Common normals: mental status grossly normal, thought process normal, denies homicidal ideation and denies suicidal ideation Discharge Plan Discharge Disposition: Hospice - Medical Facility Discharge Medications: New prednisone 20 mg tablet 20 mg PO BID Qty: 10 0RF Eliquis 5 mg tablet 5 mg PO BID Qty: 60 0RF Continued albuterol sulfate 90 mcg/actuation HFA aerosol inhaler 2 puff INHALATION Q4H PRN (Reason: shortness of breath or wheezing) clonazepam 1 mg tablet 1 mg PO TID PRN (Reason: anxiety) duloxetine 60 mg capsule,delayed release(DR/EC) 60 mg PO BID Trelegy Ellipta 100-62.5-25 mcg blister with device 1 inh INHALATION DAILY hydrocodone-acetaminophen 5-325 mg tablet 2 tab PO Q6H PRN (Reason: pain) amlodipine 2.5 mg tablet 2.5 mg PO QDAY atorvastatin 40 mg tablet 40 mg PO QDAY tamsulosin 0.4 mg capsule 0.8 mg PO .QHS docusate sodium [Stool Softener] 100 mg capsule 200 mg PO BID finasteride 5 mg tablet 5 mg PO QDAY gabapentin 300 mg capsule 600 mg PO Q8H meloxicam 15 mg tablet 15 mg PO QDAY nitroglycerin 0.4 mg tablet, sublingual 0.4 mg sublingual Q5M PRN (Reason: chest pain) sennosides [Senna Laxative] 8.6 mg tablet 17.2 mg PO BID PRN (Reason: constipation) aspirin [Adult Aspirin Regimen] 81 mg tablet,delayed release (DR/EC) 81 mg PO DAILY cholecalciferol (vitamin D3) [D3 DOTS] 50 mcg (2,000 unit) tablet 50 mcg PO DAILY Changed furosemide 20 mg tablet 40 mg PO Q12H Qty: 0 0RF Activity: increase activity as tolerated Diet: advance to your usual diet Print Language: Occitan Forms: Portal Instructions Follow Up Appointments: F/u with [facility] Discharge location: Home with [facility]
--- NOTE | 2024-05-04 18:26 | PC.NURSE ---
Called [facility] inpatient floor to give report to nurse at 1330 and 1825 respectively. Staff reports both times that they are too busy to take report and that they will call back tonight to get report . Informed staff member that Katelyn is coming between 7-7:30 pm to transport pt to their facility. Staff member reiterated that they will call [facility] back tonight for report.
--- NOTE | 2024-05-05 09:23 | SWNOTE1 ---
JR had a paper on desk that pt went to [facility] inpt Unit on 05/04/24. JR called [facility] to update them.
== END 2024-05-04 19:02 | disposition hospice, inpatient (51) | DRG 177 ==
LOC: ER 09:39 → MS 04-28 06:50 → ICU 05-03 15:06 → MS 05-04 13:54 → ICU 05-05 08:14 → MS 05-05 08:14
PROVIDERS: Registered Nurse; Admitting Provider Family Medicine; Emergency Provider Emergency Medicine; PCP Internal Medicine; Visit Provider Internal Medicine
DX: U07.1 COVID-19 (principal); I21.A1 Myocardial infarction type 2; I11.0 Hypertensive heart disease with heart failure; I50.33 Acute on chronic diastolic (congestive) heart failure; J96.01 Acute respiratory failure with hypoxia; J12.82 Pneumonia due to coronavirus disease 2019; J44.0 Chronic obstructive pulmonary disease with (acute) lower respiratory infection; J44.1 Chronic obstructive pulmonary disease with (acute) exacerbation; C90.00 Multiple myeloma not having achieved remission; E44.0 Moderate protein-calorie malnutrition; Z66 Do not resuscitate; E78.5 Hyperlipidemia, unspecified; F32.A Depression, unspecified; F41.9 Anxiety disorder, unspecified; I25.10 Atherosclerotic heart disease of native coronary artery without angina pectoris; I48.91 Unspecified atrial fibrillation; J43.8 Other emphysema; N40.0 Benign prostatic hyperplasia without lower urinary tract symptoms; Z51.5 Encounter for palliative care; Z85.118 Personal history of other malignant neoplasm of bronchus and lung; Z90.2 Acquired absence of lung [part of]; Z79.82 Long term (current) use of aspirin; Z79.899 Other long term (current) drug therapy; Z87.891 Personal history of nicotine dependence; Z92.21 Personal history of antineoplastic chemotherapy; Z92.3 Personal history of irradiation; Z95.5 Presence of coronary angioplasty implant and graft
CPT/HCPCS: 36415; 36591; 36600; 71045; 71275; 80053; 82805; 83605; 83735; 83880; 84484; 85007; 85025; 85027; 85378; 85610; 86140; 87040; 87804; 87811; 93005; 93308; 94640; 94660; 94667; 94668; 94761; 94799; 96365; 96366; 96375; 97110; 97161; 97165; 97535; 99285; J0248; J1100; J1650; J1940; J2060; J2270; J8540; Q0177; Q9967